=== PATIENT | female | born 1955 | race Hispanic/Latino ===

== ENCOUNTER 2017-03-20 14:54 | Inpatient (IN) | payer MEDICARE ==
[2017-03-20] MEDS ORDERED: Vancomycin 2 GM in Sodium Chloride 0.9% 500 ML IVPB ONE (18:00)
[2017-03-20] MEDS ORDERED: Piperacill/Tazo 4.5gm in Dex 4.5 GM/100 ML BAG IVPB ONE (18:00)
[2017-03-20 21:38] LABS: ALBUMIN 3.3 g/dL (3.5-5.0); ALT/SGPT 27 U/L (9-52); AST/SGOT 99 U/L (14-36); BLOOD UREA NITROGEN 20 mg/dL (7-17); CALCIUM 8.3 mg/dl (8.6-10.4); CK-MB 45.9 ng/mL (0.0-3.38); GFR AFRICAN-AMERICAN > 60; GFR NON-AFRICAN AMERICAN 51
[2017-03-20 22:30] VITALS: BMI 58.2
[2017-03-20 22:36] LABS: BASO # 0.1 K/uL (0.0-0.2); BASO % 0.5 % (0.0-2.0); EOS # 0.1 K/uL (0.0-0.7); EOS % 0.6 % (0.0-4.0); HEMOGLOBIN 12.9 g/dL (11.0-16.0); LYMPH # 1.2 K/uL (1.0-4.3); LYMPH % 10.6 % (20.0-40.0); MEAN CELL VOLUME 83.1 fL (81.0-99.0); MEAN CORPUSCULAR HEMOGLOBIN 25.5 pg (27.0-31.0); MEAN CORPUSCULAR HGB CONC 30.7 g/dL (33.0-37.0); MEAN PLATELET VOLUME 8.5 fL (7.2-11.7); MONO % 9.3 % (0.0-10.0); NEUT # 8.9 K/uL (1.8-7.0); NRBC % 0.1 % (0.0-2.0); RBC 5.07 Mil/uL (3.80-5.20); RED CELL DISTRIBUTION WIDTH 17.5 % (11.5-14.5); WHITE BLOOD COUNT 11.3 K/uL (4.8-10.8)
--- NOTE | 2017-03-20 22:45 | RAD ---
PROCEDURE: CHEST RADIOGRAPH, 1 VIEW HISTORY: COMPARISON: None available. FINDINGS: LUNGS: There is patient rotation to the right. The lungs are clear. PLEURA: No pneumothorax or pleural fluid seen. CARDIOVASCULAR: There is mild cardiomegaly. OSSEOUS STRUCTURES: No significant abnormalities. VISUALIZED UPPER ABDOMEN: Normal. OTHER FINDINGS: None. IMPRESSION: No acute findings.
--- NOTE | 2017-03-20 22:45 | CT ---
PROCEDURE: CT Chest with contrast (Pulmonary Angiogram) I are are cardiac polyp on the idea the [facility] go neck pain 2 days HISTORY: COMPARISON: None available. TECHNIQUE: Axial computed tomography images were obtained of the chest in the pulmonary arterial phase of enhancement. Coronal and sagittal reformatted images were created and reviewed. Intravenous contrast dose: 95 mL Visipaque 320 Radiation dose: Total exam DLP = 593.16 MGy-cm. This CT exam was performed using one or more of the following dose reduction techniques: Automated exposure control, adjustment of the mA and/or kV according to patient size, and/or use of iterative reconstruction technique. FINDINGS: PULMONARY ARTERIES: There are no filling defects in the pulmonary arteries to suggest acute pulmonary embolism. AORTA: No evidence of aortic aneurysm or dissection. LUNGS: There are patchy ground-glass opacities in both lungs. Bullous emphysema in the medial segment of the right middle lobe. There is confluent airspace disease in the posterior basal segment of the left lower lobe. There is subsegmental atelectasis in the lingula. PLEURAL SPACES: Unremarkable. No effusion or pneumothorax. HEART: The heart is normal in size. No pericardial effusion. LYMPH NODES: Subcentimeter mediastinal lymph nodes are likely reactive in etiology. There is moderate left hilar lymphadenopathy. BONES, CHEST WALL: Unremarkable. No fracture or destructive lesion multilevel degenerative disc disease. OTHER FINDINGS: Unremarkable. IMPRESSION: 1. No CT evidence for acute pulmonary embolism, aortic aneurysm or aortic dissection. 2. Confluent airspace disease in the posterior basal segment of the left lower lobe may represent move subsegmental atelectasis however pneumonia cannot be excluded. Also noted is moderate left hilar lymphadenopathy of uncertain etiology and could be reactive, infectious or inflammatory in etiology. Follow-up after medical management is recommended to ensure complete resolution.
[2017-03-20 22:58] LABS: ALBUMIN 2.9 g/dL (3.5-5.0); ALT/SGPT 31 U/L (9-52); AST/SGOT 131 U/L (14-36); BLOOD UREA NITROGEN 18 mg/dL (7-17); CALCIUM 7.8 mg/dl (8.6-10.4); CK-MB 66.2 ng/mL (0.0-3.38); GFR AFRICAN-AMERICAN > 60; GFR NON-AFRICAN AMERICAN > 60; MAGNESIUM 1.7 mg/dL (1.6-2.3)
[2017-03-20 23:11] LABS: INR 1.2; PROTHROMBIN TIME 13.3 SECONDS (9.7-12.2)
[2017-03-20 23:35] LABS: SQUAMOUS EPITHIAL 9 /hpf (0-5); URINE BACTERIA MOD (<OCC); URINE BILIRUBIN NEGATIVE (NEGATIVE); URINE BLOOD 3+ (NEGATIVE); URINE CLARITY Hazy (Clear); URINE COLOR Amber (YELLOW); URINE GLUCOSE (UA) NORMAL (Normal); URINE LEUKOCYTE ESTERASE 1+ Leu/uL (Negative); URINE NITRATE NEGATIVE (NEGATIVE); URINE PROTEIN 2+ mg/dL (NEGATIVE); WBC CLUMPS FEW /hpf
[2017-03-21] MEDS: Aspirin 325 mg EC Tablets PO SCH ×2 (00:29→09:55)
[2017-03-21] MEDS: Piperacill/Tazo 4.5gm in Dex 4.5 GM/100 ML BAG IVPB SCH ×5 (00:54→23:05)
[2017-03-21] MEDS: Albuterol-Ipratrop 3 mg / 0.5 (3 ml) UD INH SCH ×6 (01:31→19:49)
[2017-03-21 04:53] LABS: BASO % 0.2 % (0.0-2.0); EOS % 0.1 % (0.0-4.0); HEMOGLOBIN 12.7 g/dL (11.0-16.0); LYMPH # 1.3 K/uL (1.0-4.3); LYMPH % 11.7 % (20.0-40.0); MEAN CORPUSCULAR HEMOGLOBIN 25.5 pg (27.0-31.0); MEAN PLATELET VOLUME 8.8 fL (7.2-11.7); MONO # 0.9 K/uL (0.0-0.8); NEUT # 8.9 K/uL (1.8-7.0); RBC 4.98 Mil/uL (3.80-5.20); RED CELL DISTRIBUTION WIDTH 17.3 % (11.5-14.5); WHITE BLOOD COUNT 11.1 K/uL (4.8-10.8)
[2017-03-21 04:59] LABS: ALBUMIN 3.1 g/dL (3.5-5.0)
[2017-03-21 05:02] LABS: AST/SGOT 185 U/L (14-36); BLOOD UREA NITROGEN 18 mg/dL (7-17); GFR AFRICAN-AMERICAN > 60; GFR NON-AFRICAN AMERICAN > 60
[2017-03-21 05:03] LABS: ALT/SGPT 30 U/L (9-52); CALCIUM 8.4 mg/dl (8.6-10.4); HDL CHOLESTEROL 30 mg/dL (30-70); MAGNESIUM 1.7 mg/dL (1.6-2.3)
[2017-03-21 05:14] LABS: LDL CHOLESTEROL 98 mg/dL (0-129)
[2017-03-21] MEDS: Heparin25000 units/250ml 1/2NS 25,000 UNITS/250 ML BAG IV PRN ×2 (05:59→23:06)
[2017-03-21 08:05] LABS: INR 1.2; PROTHROMBIN TIME 13.2 SECONDS (9.7-12.2)
--- NOTE | 2017-03-21 08:52 | CP.CCUPN ---
CCU Subjective - Physician Review Events Since Last Encounter (Free Text): 03/21/17 08:50 This a 61-year-old female admitted yesterday last night because she was not feeling well, she was not able to get out of bed. 2 weeks ago patient was hospitalized at [place] for unclear reason, at the time patient was diagnosed with a pneumonia. Patient was given medications. Patient was sent home within 2 days. At home patient was not able to get out, she was on the bed lying down, getting more worse. Not eating well. Episodes of vomiting at least one episode. She was also having increasing pain in the back, in the legs, was not able to move, taking some pain medications. The emergency room patient was found to be more lethargic, but easily arousable otherwise. Significant coughing, wheezing noted. Technique mucus production also noted. No fever noted, except a low-grade temperature. There was also abnormal EKG, with the ST elevation changes in the inferior leads. Cardiology evaluation called immediately, but hold heart was not initiated, and according to the cardiology medical management needed, with the heparin drip. Patient was also noted to be elevated troponin level. Last night while she came into the ICU, she become more lethargic. She was placed on BiPAP. Increased the PCO2 was identified, and after the BiPAP there was some improvement in the pH noted. Currently patient is more awake, more responding, cough noted, mucus production still present, thick mucus noted, rales bilaterally noted. But not in any distress. Elevated blood pressure noted. Patient is mostly bedridden. Sacral decubiti also noted. Urine output is somewhat minimally reduced. Low-grade fever better now. On examination: Vital signs reviewed No neck vein distention noted Bilateral diffuse rhonchi and wheezing and wheezing noted CVS regular heart sound, no murmur noted Abdomen soft, nontender. Bilateral pedal edema noted [employer] alert awake oriented 3, no functional neurological deficit Today's labs reviewed 03/21/17 04:40 03/21/17 04:[address] scan of the chest showing no evidence of pulmonary embolism, but dynamic collapse of the trachea and bronchi noted. Assessment and recommendation: 61-year-old female with history of hypertension, history of smoking, chronic pain. Patient mostly bedridden. Obesity. Associated hyperventilation. Possible COPD. CO2 retention noted. Generalized anasarca. Sacral decubiti. Admitted with the possible sepsis. Non-ST elevation [place], with the elevated cardiac enzymes. Acute on chronic respiratory failure with the CO2 retention. Currently needing BiPAP on and off. Cardiology evaluation. Echocardiogram. Monitor the cardiac enzymes. Beta sisi, heparin, antiplatelets. BiPAP as needed. Overall prognosis is guarded. Spoke to the family. CCU Objective - Vital Signs / Intake & Output Vital Signs (Last 4 hours): Vital Signs Temp Pulse Resp BP Pulse Ox 03/21/17 08:30 88 16 99 03/21/17 08:18 86 21 175/86 H 96 03/21/17 08:00 88 23 97 03/21/17 07:58 87 23 185/100 H 97 03/21/17 07:57 98 F 03/21/17 07:40 89 22 96 03/21/17 07:30 86 22 95 03/21/17 07:20 91 H 13 94 L 03/21/17 07:10 89 23 93 L 03/21/17 07:00 90 27 H 92 L 03/21/17 06:58 89 25 H 165/86 H 91 L 03/21/17 06:50 87 23 91 L 03/21/17 06:40 92 H 22 94 L 03/21/17 06:30 86 23 94 L 03/21/17 06:20 87 16 94 L 03/21/17 06:10 83 12 98 03/21/17 06:00 85 14 97 03/21/17 05:58 79 20 176/97 H 97 03/21/17 05:50 80 18 99 03/21/17 05:40 81 17 98 03/21/17 05:30 84 20 98 03/21/17 05:25 78 18 174/95 H 97 03/21/17 05:20 80 20 98 03/21/17 05:10 79 19 97 03/21/17 05:00 74 20 97 03/21/17 04:58 77 15 165/101 H 98 Intake and Output (Last 8hrs): Intake & Output 03/20/17 03/21/17 03/21/17 22:59 06:59 14:59 Intake Total 54 226 32.8 Output Total 200 400 60 Balance -146 -174 -27.2 Weight 350 lb Intake: IV 0 0 Intake, IV Amount 54 226 32.8 left hand 100 right hand 54 126 32.8 Output: Urine 200 400 60 Urethral (Colmenares) 200 400 60 Emesis 0 Other: Voiding Method Indwelling Catheter # Bowel Movements 0 - Medications Active Medications: Active Medications Generic Name Dose Route Start Last Admin Trade Name Freq PRN Reason Stop Dose Admin Albuterol/Ipratropium 3 ml 03/21/17 00:00 03/21/17 08:15 Duoneb 3 Mg/0.5 Mg (3 Ml) Ud INH 3 ml RQ4 RIK Administration Aspirin 325 mg 03/20/17 23:45 03/21/17 00:29 Ecotrin PO Not Given DAILY RIK Clonazepam 1 mg 03/20/17 23:45 03/21/17 00:29 Klonopin PO Not Given Q12 RIK Gabapentin 300 mg 03/20/17 23:45 03/21/17 00:29 Neurontin PO Not Given TID RIK Heparin Sodium/Sodium Chloride 25,000 units in 250 mls @ 18 mls/hr 03/20/17 22 :49 03/21/17 07:00 Heparin 21781 Units/250ml 1/2 Normal Saline IV 10.33 units/kg/hr .[id number] PRN 16.4 mls/hr PROTOCOL Titration Protocol Vancomycin/Sodium Chloride 1 gm in 200 mls @ 133.333 mls/hr 03/21/17 10:00 Vancocin IVPB 03/26/17 10:01 Q12H RIK Piperacillin Sod/Tazobactam Sod 4.5 gm in 100 mls @ 100 mls/hr 03/21/17 01:00 03/21/17 06:02 Zosyn 4.5 Gm Iv Premix IVPB 100 mls/hr Q6 RIK Administration Lisinopril 2.5 mg 03/21/17 10:00 Zestril PO DAILY RIK Morphine Sulfate 2 mg 03/20/17 23:50 03/21/17 04:34 Morphine IVP 2 mg Q6H PRN Administration Pain, moderate (4-7) Nitroglycerin 0.4 mg 03/20/17 23:50 Nitrostat Sl Tab SL Q5M PRN Rosuvastatin Calcium 20 mg 03/21/17 22:00 Crestor PO [facility] - Patient Studies Lab Studies: Lab Studies 03/21/17 03/21/17 03/21/17 Range/Units 04:40 04:40 04:40 WBC 11.1 H (4.8-10.8) K/uL RBC 4.98 (3.80-5.20) Mil/uL Hgb 12.7 (11.0-16.0) g/dL Hct 42.4 (34.0-47.0) % MCV 85.0 (81.0-99.0) fL MCH 25.5 L (27.0-31.0) pg MCHC 30.0 L (33.0-37.0) g/dL RDW 17.3 H (11.5-14.5) % Plt Count 277 (130-400) K/uL MPV 8.8 (7.2-11.7) fL Neut % (Auto) 80.0 H (50.0-75.0) % Lymph % (Auto) 11.7 L (20.0-40.0) % [place] % (Auto) 8.0 (0.0-10.0) % Eos % (Auto) 0.1 (0.0-4.0) % Baso % (Auto) 0.2 (0.0-2.0) % Neut # 8.9 H (1.8-7.0) K/uL Lymph # 1.3 (1.0-4.3) K/uL [place] # 0.9 H (0.0-0.8) K/uL Eos # 0.0 (0.0-0.7) K/uL Baso # 0.0 (0.0-0.2) K/uL PT (9.7-12.2) SECONDS INR APTT 106 H* D (21-34) SECONDS D-Dimer, Quantitative (0-243) ng/mlDDU Sodium 138 (132-148) mmol/L Potassium 3.8 (3.6-5.2) mmol/L Chloride 103 (98-107) mmol/L Carbon Dioxide 25 (22-30) mmol/L Anion Gap 14 (10-20) BUN 18 H (7-17) mg/dL Creatinine 0.8 (0.7-1.2) MG/DL Est GFR ( Amer) > 60 Est GFR (Non-Af Amer) > 60 Random Glucose 99 (65-105) mg/dL Lactic Acid (0.7-2.1) mmol/L Calcium 8.4 L (8.6-10.4) mg/dl Phosphorus 3.7 (2.5-4.5) mg/dL Magnesium 1.7 (1.6-2.3) mg/dL Total Bilirubin 0.7 (0.2-1.3) mg/dL AST 185 H D (14-36) U/L ALT 30 (9-52) U/L Alkaline Phosphatase 86 (38-126) U/L Total Creatine Kinase (30-135) U/L CK-MB (Mass) (0.0-3.38) ng/mL Troponin I 14.2000 H* (0.00-0.120) ng/mL Troponin I, Quant (0.00-0.120) ng/mL Total Protein 6.3 (6.3-8.3) g/dL Albumin 3.1 L (3.5-5.0) g/dL Globulin 3.2 (2.2-3.9) gm/dL Albumin/Globulin Ratio 1.0 (1.0-2.1) Triglycerides 126 D (0-149) mg/dL Cholesterol 153 (0-199) mg/dL LDL Cholesterol Direct 98 (0-129) mg/dL HDL Cholesterol 30 (30-70) mg/dL Urine Color (YELLOW) Urine Clarity (Clear) Urine pH (5.0-8.0) Ur Specific [place] (1.003-1.030) Urine Protein (NEGATIVE) mg/dL Urine Glucose (UA) (Normal) mg/dL Urine Ketones (NEGATIVE) mg/dL Urine Blood (NEGATIVE) Urine Nitrate (NEGATIVE) Urine Bilirubin (NEGATIVE) Urine Urobilinogen (0.2-1.0) mg/dL Ur Leukocyte Esterase (Negative) Mendoza/uL Urine WBC (Auto) (0-5) /hpf Urine RBC (Auto) (0-3) /hpf Urine WBC Clumps (Auto) (NONE) /hpf Ur Squamous Epith Cells (0-5) /hpf Urine Bacteria (<OCC) 03/20/17 03/20/17 03/20/17 Range/Units 22:39 22:39 22:39 WBC (4.8-10.8) K/uL RBC (3.80-5.20) Mil/uL Hgb (11.0-16.0) g/dL Hct (34.0-47.0) % MCV (81.0-99.0) fL MCH (27.0-31.0) pg MCHC (33.0-37.0) g/dL RDW (11.5-14.5) % Plt Count (130-400) K/uL MPV (7.2-11.7) fL Neut % (Auto) (50.0-75.0) % Lymph % (Auto) (20.0-40.0) % [place] % (Auto) (0.0-10.0) % Eos % (Auto) (0.0-4.0) % Baso % (Auto) (0.0-2.0) % Neut # (1.8-7.0) K/uL Lymph # (1.0-4.3) K/uL [place] # (0.0-0.8) K/uL Eos # (0.0-0.7) K/uL Baso # (0.0-0.2) K/uL PT 13.3 H (9.7-12.2) SECONDS INR 1.2 APTT 79 H D (21-34) SECONDS D-Dimer, Quantitative (0-243) ng/mlDDU Sodium 138 (132-148) mmol/L Potassium 3.6 (3.6-5.2) mmol/L Chloride 104 (98-107) mmol/L Carbon Dioxide 23 (22-30) mmol/L Anion Gap 15 (10-20) BUN 18 H (7-17) mg/dL Creatinine 0.9 (0.7-1.2) MG/DL Est GFR ( Amer) > 60 Est GFR (Non-Af Amer) > 60 Random Glucose 145 H (65-105) mg/dL Lactic Acid 0.7 (0.7-2.1) mmol/L Calcium 7.8 L (8.6-10.4) mg/dl Phosphorus 4.7 H (2.5-4.5) mg/dL Magnesium 1.7 (1.6-2.3) mg/dL Total Bilirubin 0.7 (0.2-1.3) mg/dL AST 131 H D (14-36) U/L ALT 31 (9-52) U/L Alkaline Phosphatase 85 (38-126) U/L Total Creatine Kinase 2335 H (30-135) U/L CK-MB (Mass) 66.2 H (0.0-3.38) ng/mL Troponin I (0.00-0.120) ng/mL Troponin I, Quant 7.4100 H* (0.00-0.120) ng/mL Total Protein 6.0 L (6.3-8.3) g/dL Albumin 2.9 L (3.5-5.0) g/dL Globulin 3.0 (2.2-3.9) gm/dL Albumin/Globulin Ratio 1.0 (1.0-2.1) Triglycerides (0-149) mg/dL Cholesterol (0-199) mg/dL LDL Cholesterol Direct (0-129) mg/dL HDL Cholesterol (30-70) mg/dL Urine Color (YELLOW) Urine Clarity (Clear) Urine pH (5.0-8.0) Ur Specific [place] (1.003-1.030) Urine Protein (NEGATIVE) mg/dL Urine Glucose (UA) (Normal) mg/dL Urine Ketones (NEGATIVE) mg/dL Urine Blood (NEGATIVE) Urine Nitrate (NEGATIVE) Urine Bilirubin (NEGATIVE) Urine Urobilinogen (0.2-1.0) mg/dL Ur Leukocyte Esterase (Negative) Mendoza/uL Urine WBC (Auto) (0-5) /hpf Urine RBC (Auto) (0-3) /hpf Urine WBC Clumps (Auto) (NONE) /hpf Ur Squamous Epith Cells (0-5) /hpf Urine Bacteria (<OCC) 03/20/17 03/20/17 03/20/17 Range/Units 22:04 21:32 21:32 WBC (4.8-10.8) K/uL RBC (3.80-5.20) Mil/uL Hgb (11.0-16.0) g/dL Hct (34.0-47.0) % MCV (81.0-99.0) fL MCH (27.0-31.0) pg MCHC (33.0-37.0) g/dL RDW (11.5-14.5) % Plt Count (130-400) K/uL MPV (7.2-11.7) fL Neut % (Auto) (50.0-75.0) % Lymph % (Auto) (20.0-40.0) % [place] % (Auto) (0.0-10.0) % Eos % (Auto) (0.0-4.0) % Baso % (Auto) (0.0-2.0) % Neut # (1.8-7.0) K/uL Lymph # (1.0-4.3) K/uL [place] # (0.0-0.8) K/uL Eos # (0.0-0.7) K/uL Baso # (0.0-0.2) K/uL PT 13.2 H (9.7-12.2) SECONDS INR 1.2 APTT 30 (21-34) SECONDS D-Dimer, Quantitative 630 H (0-243) ng/mlDDU Sodium 139 (132-148) mmol/L Potassium 3.3 L (3.6-5.2) mmol/L Chloride 100 (98-107) mmol/L Carbon Dioxide 26 (22-30) mmol/L Anion Gap 16 (10-20) BUN 20 H (7-17) mg/dL Creatinine 1.1 (0.7-1.2) MG/DL Est GFR ( Amer) > 60 Est GFR (Non-Af Amer) 51 Random Glucose 116 H (65-105) mg/dL Lactic Acid (0.7-2.1) mmol/L Calcium 8.3 L (8.6-10.4) mg/dl Phosphorus (2.5-4.5) mg/dL Magnesium (1.6-2.3) mg/dL Total Bilirubin 0.7 (0.2-1.3) mg/dL AST 99 H D (14-36) U/L ALT 27 (9-52) U/L Alkaline Phosphatase 100 (38-126) U/L Total Creatine Kinase 1329 H (30-135) U/L CK-MB (Mass) 45.9 H (0.0-3.38) ng/mL Troponin I (0.00-0.120) ng/mL Troponin I, Quant 6.0500 H* (0.00-0.120) ng/mL Total Protein 6.5 (6.3-8.3) g/dL Albumin 3.3 L (3.5-5.0) g/dL Globulin 3.3 (2.2-3.9) gm/dL Albumin/Globulin Ratio 1.0 (1.0-2.1) Triglycerides (0-149) mg/dL Cholesterol (0-199) mg/dL LDL Cholesterol Direct (0-129) mg/dL HDL Cholesterol (30-70) mg/dL Urine Color Arely (YELLOW) Urine Clarity Hazy (Clear) Urine pH 5.0 (5.0-8.0) Ur Specific [place] 1.028 (1.003-1.030) Urine Protein 2+ H (NEGATIVE) mg/dL Urine Glucose (UA) Normal (Normal) mg/dL Urine Ketones Trace (NEGATIVE) mg/dL Urine Blood 3+ H (NEGATIVE) Urine Nitrate Negative (NEGATIVE) Urine Bilirubin Negative (NEGATIVE) Urine Urobilinogen 4.0 H (0.2-1.0) mg/dL Ur Leukocyte Esterase 1+ H (Negative) Mendoza/uL Urine WBC (Auto) 36 H (0-5) /hpf Urine RBC (Auto) 61 H (0-3) /hpf Urine WBC Clumps (Auto) Few H (NONE) /hpf Ur Squamous Epith Cells 9 H (0-5) /hpf Urine Bacteria Mod H (<OCC) 03/20/17 Range/Units 21:32 WBC 11.3 H (4.8-10.8) K/uL RBC 5.07 (3.80-5.20) Mil/uL Hgb 12.9 (11.0-16.0) g/dL Hct 42.1 (34.0-47.0) % MCV 83.1 D (81.0-99.0) fL MCH 25.5 L (27.0-31.0) pg MCHC 30.7 L (33.0-37.0) g/dL RDW 17.5 H (11.5-14.5) % Plt Count 344 (130-400) K/uL MPV 8.5 (7.2-11.7) fL Neut % (Auto) 79.0 H (50.0-75.0) % Lymph % (Auto) 10.6 L (20.0-40.0) % [place] % (Auto) 9.3 (0.0-10.0) % Eos % (Auto) 0.6 (0.0-4.0) % Baso % (Auto) 0.5 (0.0-2.0) % Neut # 8.9 H (1.8-7.0) K/uL Lymph # 1.2 (1.0-4.3) K/uL [place] # 1.0 H (0.0-0.8) K/uL Eos # 0.1 (0.0-0.7) K/uL Baso # 0.1 (0.0-0.2) K/uL PT (9.7-12.2) SECONDS INR APTT (21-34) SECONDS D-Dimer, Quantitative (0-243) ng/mlDDU Sodium (132-148) mmol/L Potassium (3.6-5.2) mmol/L Chloride (98-107) mmol/L Carbon Dioxide (22-30) mmol/L Anion Gap (10-20) BUN (7-17) mg/dL Creatinine (0.7-1.2) MG/DL Est GFR ( Amer) Est GFR (Non-Af Amer) Random Glucose (65-105) mg/dL Lactic Acid (0.7-2.1) mmol/L Calcium (8.6-10.4) mg/dl Phosphorus (2.5-4.5) mg/dL Magnesium (1.6-2.3) mg/dL Total Bilirubin (0.2-1.3) mg/dL AST (14-36) U/L ALT (9-52) U/L Alkaline Phosphatase (38-126) U/L Total Creatine Kinase (30-135) U/L CK-MB (Mass) (0.0-3.38) ng/mL Troponin I (0.00-0.120) ng/mL Troponin I, Quant (0.00-0.120) ng/mL Total Protein (6.3-8.3) g/dL Albumin (3.5-5.0) g/dL Globulin (2.2-3.9) gm/dL Albumin/Globulin Ratio (1.0-2.1) Triglycerides (0-149) mg/dL Cholesterol (0-199) mg/dL LDL Cholesterol Direct (0-129) mg/dL HDL Cholesterol (30-70) mg/dL Urine Color (YELLOW) Urine Clarity (Clear) Urine pH (5.0-8.0) Ur Specific [place] (1.003-1.030) Urine Protein (NEGATIVE) mg/dL Urine Glucose (UA) (Normal) mg/dL Urine Ketones (NEGATIVE) mg/dL Urine Blood (NEGATIVE) Urine Nitrate (NEGATIVE) Urine Bilirubin (NEGATIVE) Urine Urobilinogen (0.2-1.0) mg/dL Ur Leukocyte Esterase (Negative) Mendoza/uL Urine WBC (Auto) (0-5) /hpf Urine RBC (Auto) (0-3) /hpf Urine WBC Clumps (Auto) (NONE) /hpf Ur Squamous Epith Cells (0-5) /hpf Urine Bacteria (<OCC) Laboratory Results - last 24 hr 03/20/17 03/20/17 03/20/17 21:32 21:32 21:32 WBC 11.3 H RBC 5.07 Hgb 12.9 Hct 42.1 MCV 83.1 D MCH 25.5 L MCHC 30.7 L RDW 17.5 H Plt Count 344 MPV 8.5 Neut % (Auto) 79.0 H Lymph % (Auto) 10.6 L [place] % (Auto) 9.3 Eos % (Auto) 0.6 Baso % (Auto) 0.5 Neut # 8.9 H Lymph # 1.2 [place] # 1.0 H Eos # 0.1 Baso # 0.1 PT 13.2 H INR 1.2 APTT 30 D-Dimer, Quantitative 630 H Sodium 139 Potassium 3.3 L Chloride 100 Carbon Dioxide 26 Anion Gap 16 BUN 20 H Creatinine 1.1 Est GFR ( Amer) > 60 Est GFR (Non-Af Amer) 51 Random Glucose 116 H Lactic Acid Calcium 8.3 L Phosphorus Magnesium Total Bilirubin 0.7 AST 99 H D ALT 27 Alkaline Phosphatase 100 Total Creatine Kinase 1329 H CK-MB (Mass) 45.9 H Troponin I Troponin I, Quant 6.0500 H* Total Protein 6.5 Albumin 3.3 L Globulin 3.3 Albumin/Globulin Ratio 1.0 Triglycerides Cholesterol LDL Cholesterol Direct HDL Cholesterol Urine Color Urine Clarity Urine pH Ur Specific [place] Urine Protein Urine Glucose (UA) Urine Ketones Urine Blood Urine Nitrate Urine Bilirubin Urine Urobilinogen Ur Leukocyte Esterase Urine WBC (Auto) Urine RBC (Auto) Urine WBC Clumps (Auto) Ur Squamous Epith Cells Urine Bacteria 03/20/17 03/20/1717 22:04 22:39 22:39 WBC RBC Hgb Hct MCV MCH MCHC RDW Plt Count MPV Neut % (Auto) Lymph % (Auto) [place] % (Auto) Eos % (Auto) Baso % (Auto) Neut # Lymph # [place] # Eos # Baso # PT 13.3 H INR 1.2 APTT 79 H D D-Dimer, Quantitative Sodium 138 Potassium 3.6 Chloride 104 Carbon Dioxide 23 Anion Gap 15 BUN 18 H Creatinine 0.9 Est GFR ( Amer) > 60 Est GFR (Non-Af Amer) > 60 Random Glucose 145 H Lactic Acid Calcium 7.8 L Phosphorus 4.7 H Magnesium 1.7 Total Bilirubin 0.7 AST 131 H D ALT 31 Alkaline Phosphatase 85 Total Creatine Kinase 2335 H CK-MB (Mass) 66.2 H Troponin I Troponin I, Quant 7.4100 H* Total Protein 6.0 L Albumin 2.9 L Globulin 3.0 Albumin/Globulin Ratio 1.0 Triglycerides Cholesterol LDL Cholesterol Direct HDL Cholesterol Urine Color Arely Urine Clarity Hazy Urine pH 5.0 Ur Specific [place] 1.028 Urine Protein 2+ H Urine Glucose (UA) Normal Urine Ketones Trace Urine Blood 3+ H Urine Nitrate Negative Urine Bilirubin Negative Urine Urobilinogen 4.0 H Ur Leukocyte Esterase 1+ H Urine WBC (Auto) 36 H Urine RBC (Auto) 61 H Urine WBC Clumps (Auto) Few H Ur Squamous Epith Cells 9 H Urine Bacteria Mod H 03/20/17 03/21/17 03/21/17 22:39 04:40 04:40 WBC 11.1 H RBC 4.98 Hgb 12.7 Hct 42.4 MCV 85.0 MCH 25.5 L MCHC 30.0 L RDW 17.3 H Plt Count 277 MPV 8.8 Neut % (Auto) 80.0 H Lymph % (Auto) 11.7 L [place] % (Auto) 8.0 Eos % (Auto) 0.1 Baso % (Auto) 0.2 Neut # 8.9 H Lymph # 1.3 [place] # 0.9 H Eos # 0.0 Baso # 0.0 PT INR APTT 106 H* D D-Dimer, Quantitative Sodium Potassium Chloride Carbon Dioxide Anion Gap BUN Creatinine Est GFR ( Amer) Est GFR (Non-Af Amer) Random Glucose Lactic Acid 0.7 Calcium Phosphorus Magnesium Total Bilirubin AST ALT Alkaline Phosphatase Total Creatine Kinase CK-MB (Mass) Troponin I Troponin I, Quant Total Protein Albumin Globulin Albumin/Globulin Ratio Triglycerides Cholesterol LDL Cholesterol Direct HDL Cholesterol Urine Color Urine Clarity Urine pH Ur Specific [place] Urine Protein Urine Glucose (UA) Urine Ketones Urine Blood Urine Nitrate Urine Bilirubin Urine Urobilinogen Ur Leukocyte Esterase Urine WBC (Auto) Urine RBC (Auto) Urine WBC Clumps (Auto) Ur Squamous Epith Cells Urine Bacteria 03/21/17 04:40 WBC RBC Hgb Hct MCV MCH MCHC RDW Plt Count MPV Neut % (Auto) Lymph % (Auto) [place] % (Auto) Eos % (Auto) Baso % (Auto) Neut # Lymph # [place] # Eos # Baso # PT INR APTT D-Dimer, Quantitative Sodium 138 Potassium 3.8 Chloride 103 Carbon Dioxide 25 Anion Gap 14 BUN 18 H Creatinine 0.8 Est GFR ( Amer) > 60 Est GFR (Non-Af Amer) > 60 Random Glucose 99 Lactic Acid Calcium 8.4 L Phosphorus 3.7 Magnesium 1.7 Total Bilirubin 0.7 AST 185 H D ALT 30 Alkaline Phosphatase 86 Total Creatine Kinase CK-MB (Mass) Troponin I 14.2000 H* Troponin I, Quant Total Protein 6.3 Albumin 3.1 L Globulin 3.2 Albumin/Globulin Ratio 1.0 Triglycerides 126 D Cholesterol 153 LDL Cholesterol Direct 98 HDL Cholesterol 30 Urine Color Urine Clarity Urine pH Ur Specific [place] Urine Protein Urine Glucose (UA) Urine Ketones Urine Blood Urine Nitrate Urine Bilirubin Urine Urobilinogen Ur Leukocyte Esterase Urine WBC (Auto) Urine RBC (Auto) Urine WBC Clumps (Auto) Ur Squamous Epith Cells Urine Bacteria EKG/Cardiology Studies: Cardiology / EKG Studies 03/21/17 00:47 ELECTROCARDIOGRAM Routine Comment: Mode Of Transportation: Reason For Exam: NONSTEMI Critical Care Progress Note - Nutrition Nutrition: Nutrition Category Date Time Status Heart Healthy Diet [DIET] Diets 03/21/17 Breakfast Active
[2017-03-21] MEDS ORDERED: Potassium Chloride 20 mEq/15 ml LIQ UD PO ONE (09:00)
[2017-03-21] MEDS: Magnesium Sulfate 1 gm in D5W 1 GM/100 ML BAG IVPB SCH (09:59)
[2017-03-21] MEDS: Vancomycin 1 gm/NS 200 ml 1 GM/200 ML BAG IVPB SCH ×2 (10:00→21:18)
--- NOTE | 2017-03-21 11:19 | RAD ---
PROCEDURE: Right pelvis and Hip Radiographs. HISTORY: HIP PAIN COMPARISON: None. FINDINGS: BONES: The pelvic ring is intact. No acute displaced fracture or bone destruction. 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 SOFT TISSUES: Normal. OTHER FINDINGS: None. IMPRESSION: No acute displaced fracture or dislocation.
--- NOTE | 2017-03-21 13:08 | CP.PCM.CON ---
History of Present Illness - History of Present Illness History of Present Illness: 61 y/o woman who is morbidly obese and reports a pronlonged ICU admission and recurrent need for subacute care facility for SIRS/Pneumonia. She is very sedentary and mostly sofa bound at home but able to perform self care. Most recently about 2 weeks ago she states she slipped and fell in the tub and went to [facility] was evaluated and discharged. Since she reports progressive cough, dysuria, but no fever, chills, chest pressure, dizziness or syncope or palpitation. She presented to ER with same complaints and routine EKG showed inferior q- waves and subtle ST changes in the inferior leads in the absence of CHF features or chest pressure. CT chest ruled out any PE, mild leukocytosis and UTI noted, suspicion for atelectasis or PNA on CT. Heparin GTT was started and patient Tx to ICU. PMHX: HTN, No DM, Obeseity, probable OPHELIA PSHX: gall bladder Allergies: NKDA SOCHX: as above, smoker, no drugs no ETOH abuse ROS: all 12 systems rev and negative except as in HPI Review of Systems - Review of Systems All systems: reviewed and no additional remarkable complaints except Past Patient History - Past Medical History & Family History Past Medical History?: Yes - Past Social History Smoking Status: Current Some Days Smoker - CARDIAC Hx Hypertension: Yes - PULMONARY Hx Respiratory Disorders: No Hx Pneumonia: Yes Hx Respiratory Tract Infection: Yes - NEUROLOGICAL Hx Neurological Disorder: No - HEENT Hx HEENT Problems: No - RENAL Hx Kidney Stones: Yes - ENDOCRINE/METABOLIC Hx Endocrine Disorders: No - HEMATOLOGICAL/ONCOLOGICAL Hx Blood Disorders: No - INTEGUMENTARY Other/Comment: Abdominal Fold reddened and weeping with foul smell - MUSCULOSKELETAL/RHEUMATOLOGICAL Hx Falls: Yes Hx Herniated Disk: Yes - GASTROINTESTINAL Hx Gastrointestinal Disorders: No - GENITOURINARY/GYNECOLOGICAL Hx Genitourinary Disorders: No - PSYCHIATRIC Hx Substance Use: No - SURGICAL HISTORY Hx Cholecystectomy: Yes Hx Joint Replacement: Yes (rt knee) - ANESTHESIA Hx Anesthesia: No Hx Anesthesia Reactions: No Hx Malignant Hyperthermia: No Has any member of the family had a problem w/ anesthesia?: No Meds Allergies/Adverse Reactions: Allergies Allergy/AdvReac Type Severity Reaction Status Date / Time No Known Allergies Allergy Verified 02/01/16 05:56 - Medications Medications: Current Medications Albuterol/Ipratropium (Duoneb 3 Mg/0.5 Mg (3 Ml) Ud) 3 ml INH RQ4 [facility] Last Admin: 03/21/17 11:33 Dose: 3 ml Aspirin (Ecotrin) 325 mg PO DAILY [facility] Last Admin: 03/21/17 09:55 Dose: 325 mg Clonazepam (Klonopin) 1 mg PO Q12 [facility] Last Admin: 03/21/17 10:04 Dose: 1 mg Gabapentin (Neurontin) 300 mg PO TID [facility] Last Admin: 03/21/17 10:04 Dose: 300 mg Heparin Sodium/Sodium Chloride (Heparin 38748 Units/250ml 1/2 Normal Saline) 25 ,000 units in 250 mls @ 18 mls/hr IV .[id number] PRN; Protocol PRN Reason: PROTOCOL Last Titration: 03/21/17 07:00 Dose: 10.33 units/kg/hr, 16.4 mls/hr Vancomycin/Sodium Chloride (Vancocin) 1 gm in 200 mls @ 133.333 mls/hr IVPB Q12H [facility] Stop: 03/26/17 10:01 Last Admin: 03/21/17 10:00 Dose: 133.333 mls/hr Piperacillin Sod/Tazobactam Sod (Zosyn 4.5 Gm Iv Premix) 4.5 gm in 100 mls @ 100 mls/hr IVPB Q6 [facility] Last Admin: 03/21/17 06:02 Dose: 100 mls/hr Lisinopril (Zestril) 2.5 mg PO DAILY [facility] Last Admin: 03/21/17 09:58 Dose: 2.5 mg Losartan Potassium (Cozaar) 25 mg PO DAILY [facility] Last Admin: 03/21/17 09:55 Dose: 25 mg Metoprolol Tartrate (Lopressor) 25 mg PO BID [facility] Last Admin: 03/21/17 09:55 Dose: 25 mg Morphine Sulfate (Morphine) 2 mg IVP Q6H PRN PRN Reason: Pain, moderate (4-7) Last Admin: 03/21/17 09:58 Dose: 2 mg Nitroglycerin (Nitrostat Sl Tab) 0.4 mg SL Q5M PRN Rosuvastatin Calcium (Crestor) 20 mg PO [facility] Physical Exam - Constitutional Appears: Chronically Ill, Other (Morbidly obese) - Head Exam Head Exam: ATRAUMATIC, NORMAL INSPECTION, NORMOCEPHALIC - Eye Exam Eye Exam: EOMI, Normal appearance, PERRL - ENT Exam ENT Exam: Mucous Membranes Moist - Respiratory Exam Respiratory Exam: Rhonchi, Wheezes, NORMAL BREATHING PATTERN - Cardiovascular Exam Cardiovascular Exam: REGULAR RHYTHM, +S1, +S2. absent: Gallop, +S4, Systolic Murmur - GI/Abdominal Exam GI & Abdominal Exam: Normal Bowel Sounds, Soft. absent: Tenderness - Extremities Exam Extremities exam: Positive for: full ROM, normal inspection. Negative for: pedal edema - Neurological Exam Neurological exam: Alert, Oriented x3 - Psychiatric Exam Psychiatric exam: Normal Affect, Normal Mood - Skin Skin Exam: Normal Color, Warm Results - Vital Signs Recent Vital Signs: Last Vital Signs Temp 98 F 03/21/17 07:57 Pulse 69 03/21/17 11:34 Resp 16 03/21/17 08:30 BP 152/68 H 03/21/17 09:55 Pulse Ox 99 03/21/17 08:30 - Labs Result Diagrams: 03/21/17 04:40 03/21/17 04:40 Labs: Laboratory Results - last 24 hr 03/20/17 03/20/17 03/20/17 21:32 21:32 21:32 WBC 11.3 H RBC 5.07 Hgb 12.9 Hct 42.1 MCV 83.1 D MCH 25.5 L MCHC 30.7 L RDW 17.5 H Plt Count 344 MPV 8.5 Neut % (Auto) 79.0 H Lymph % (Auto) 10.6 L Hendricks % (Auto) 9.3 Eos % (Auto) 0.6 Baso % (Auto) 0.5 Neut # 8.9 H Lymph # 1.2 Hendricks # 1.0 H Eos # 0.1 Baso # 0.1 PT 13.2 H INR 1.2 APTT 30 D-Dimer, Quantitative 630 H Sodium 139 Potassium 3.3 L Chloride 100 Carbon Dioxide 26 Anion Gap 16 BUN 20 H Creatinine 1.1 Est GFR ( Amer) > 60 Est GFR (Non-Af Amer) 51 Random Glucose 116 H Lactic Acid Calcium 8.3 L Phosphorus Magnesium Total Bilirubin 0.7 AST 99 H D ALT 27 Alkaline Phosphatase 100 Total Creatine Kinase 1329 H CK-MB (Mass) 45.9 H Troponin I Troponin I, Quant 6.0500 H* Total Protein 6.5 Albumin 3.3 L Globulin 3.3 Albumin/Globulin Ratio 1.0 Triglycerides Cholesterol LDL Cholesterol Direct HDL Cholesterol Urine Color Urine Clarity Urine pH Ur Specific [place] Urine Protein Urine Glucose (UA) Urine Ketones Urine Blood Urine Nitrate Urine Bilirubin Urine Urobilinogen Ur Leukocyte Esterase Urine WBC (Auto) Urine RBC (Auto) Urine WBC Clumps (Auto) Ur Squamous Epith Cells Urine Bacteria 03/20/17 03/20/17 03/20/17 22:04 22:39 22:39 WBC RBC Hgb Hct MCV MCH MCHC RDW Plt Count MPV Neut % (Auto) Lymph % (Auto) Hendricks % (Auto) Eos % (Auto) Baso % (Auto) Neut # Lymph # Hendricks # Eos # Baso # PT 13.3 H INR 1.2 APTT 79 H D D-Dimer, Quantitative Sodium 138 Potassium 3.6 Chloride 104 Carbon Dioxide 23 Anion Gap 15 BUN 18 H Creatinine 0.9 Est GFR ( Amer) > 60 Est GFR (Non-Af Amer) > 60 Random Glucose 145 H Lactic Acid Calcium 7.8 L Phosphorus 4.7 H Magnesium 1.7 Total Bilirubin 0.7 AST 131 H D ALT 31 Alkaline Phosphatase 85 Total Creatine Kinase 2335 H CK-MB (Mass) 66.2 H Troponin I Troponin I, Quant 7.4100 H* Total Protein 6.0 L Albumin 2.9 L Globulin 3.0 Albumin/Globulin Ratio 1.0 Triglycerides Cholesterol LDL Cholesterol Direct HDL Cholesterol Urine Color Arely Urine Clarity Hazy Urine pH 5.0 Ur Specific [place] 1.028 Urine Protein 2+ H Urine Glucose (UA) Normal Urine Ketones Trace Urine Blood 3+ H Urine Nitrate Negative Urine Bilirubin Negative Urine Urobilinogen 4.0 H Ur Leukocyte Esterase 1+ H Urine WBC (Auto) 36 H Urine RBC (Auto) 61 H Urine WBC Clumps (Auto) Few H Ur Squamous Epith Cells 9 H Urine Bacteria Mod H 03/20/17 03/21/17 03/21/17 22:39 04:40 04:40 WBC 11.1 H RBC 4.98 Hgb 12.7 Hct 42.4 MCV 85.0 MCH 25.5 L MCHC 30.0 L RDW 17.3 H Plt Count 277 MPV 8.8 Neut % (Auto) 80.0 H Lymph % (Auto) 11.7 L Hendricks % (Auto) 8.0 Eos % (Auto) 0.1 Baso % (Auto) 0.2 Neut # 8.9 H Lymph # 1.3 Hendricks # 0.9 H Eos # 0.0 Baso # 0.0 PT INR APTT 106 H* D D-Dimer, Quantitative Sodium Potassium Chloride Carbon Dioxide Anion Gap BUN Creatinine Est GFR ( Amer) Est GFR (Non-Af Amer) Random Glucose Lactic Acid 0.7 Calcium Phosphorus Magnesium Total Bilirubin AST ALT Alkaline Phosphatase Total Creatine Kinase CK-MB (Mass) Troponin I Troponin I, Quant Total Protein Albumin Globulin Albumin/Globulin Ratio Triglycerides Cholesterol LDL Cholesterol Direct HDL Cholesterol Urine Color Urine Clarity Urine pH Ur Specific [place] Urine Protein Urine Glucose (UA) Urine Ketones Urine Blood Urine Nitrate Urine Bilirubin Urine Urobilinogen Ur Leukocyte Esterase Urine WBC (Auto) Urine RBC (Auto) Urine WBC Clumps (Auto) Ur Squamous Epith Cells Urine Bacteria 03/21/17 04:40 WBC RBC Hgb Hct MCV MCH MCHC RDW Plt Count MPV Neut % (Auto) Lymph % (Auto) Hendricks % (Auto) Eos % (Auto) Baso % (Auto) Neut # Lymph # Hendricks # Eos # Baso # PT INR APTT D-Dimer, Quantitative Sodium 138 Potassium 3.8 Chloride 103 Carbon Dioxide 25 Anion Gap 14 BUN 18 H Creatinine 0.8 Est GFR ( Amer) > 60 Est GFR (Non-Af Amer) > 60 Random Glucose 99 Lactic Acid Calcium 8.4 L Phosphorus 3.7 Magnesium 1.7 Total Bilirubin 0.7 AST 185 H D ALT 30 Alkaline Phosphatase 86 Total Creatine Kinase CK-MB (Mass) Troponin I 14.2000 H* Troponin I, Quant Total Protein 6.3 Albumin 3.1 L Globulin 3.2 Albumin/Globulin Ratio 1.0 Triglycerides 126 D Cholesterol 153 LDL Cholesterol Direct 98 HDL Cholesterol 30 Urine Color Urine Clarity Urine pH Ur Specific [place] Urine Protein Urine Glucose (UA) Urine Ketones Urine Blood Urine Nitrate Urine Bilirubin Urine Urobilinogen Ur Leukocyte Esterase Urine WBC (Auto) Urine RBC (Auto) Urine WBC Clumps (Auto) Ur Squamous Epith Cells Urine Bacteria - EKG Data EKG Interpreted by: Myself EKG shows normal: Sinus rhythm (poor anterior R-wave progression, old inferior infarct) Assessment & Plan - Assessment and Plan (Free Text) Assessment: 61 y/o morbidly obese woman currently without any CP or signs of worsening CHF > ACS: NSTEMI > COUGH- productive c/w PNA/bronchitis > UTI > Morbidly obese Continue Aspirin (Ecotrin) 325 mg PO DAILY [facility] Cont Heparin GTT Continue Lisinopril (Zestril) 2.5 mg PO DAILY or Losartan Potassium (Cozaar) 25 mg PO DAILY [facility] not both Continue Metoprolol Tartrate (Lopressor) 25 mg PO BID [facility] Continue Nitroglycerin (Nitrostat Sl Tab) 0.4 mg SL Q5M PRN Continue Rosuvastatin Calcium (Crestor) 20 mg PO HS [facility] ADD Plavix 300x1 load and then 75 daily Add Lasix 40 mg daily 1. Plan echo to evaluate cardiac structure and function 2. Cont Rx for UTI/PNA 3. BIPAP nightly 4. Continue medical therapy for now and I will consider cath based on clinical course. - Date & Time Date: 03/21/17 Time: 13:21
--- NOTE | 2017-03-21 16:28 | CP.PCM.PN ---
Subjective - Date & Time of Evaluation Date of Evaluation: 03/21/17 Time of Evaluation: 16:34 - Subjective Subjective: no cp no sob now cough present Objective - Vital Signs/Intake and Output Vital Signs (last 24 hours): Temp Pulse Resp BP Pulse Ox 98 F 73 21 128/80 96 03/21/17 07:57 03/21/17 15:00 03/21/17 15:00 03/21/17 14:58 03/21/17 15:00 Intake and Output: 03/21/17 03/21/17 06:59 18:59 Intake Total 280 997.6 Output Total 600 290 Balance -320 707.6 - Medications Medications: Current Medications Albuterol/Ipratropium (Duoneb 3 Mg/0.5 Mg (3 Ml) Ud) 3 ml INH RQ4 [facility] Last Admin: 03/21/17 11:33 Dose: 3 ml Aspirin (Ecotrin) 325 mg PO DAILY [facility] Last Admin: 03/21/17 09:55 Dose: 325 mg Clonazepam (Klonopin) 1 mg PO Q12 [facility] Last Admin: 03/21/17 10:04 Dose: 1 mg Gabapentin (Neurontin) 300 mg PO TID [facility] Last Admin: 03/21/17 13:58 Dose: 300 mg Heparin Sodium/Sodium Chloride (Heparin 01566 Units/250ml 1/2 Normal Saline) 25 ,000 units in 250 mls @ 18 mls/hr IV .[id number] PRN; Protocol PRN Reason: PROTOCOL Last Titration: 03/21/17 07:00 Dose: 10.33 units/kg/hr, 16.4 mls/hr Vancomycin/Sodium Chloride (Vancocin) 1 gm in 200 mls @ 133.333 mls/hr IVPB Q12H [facility] Stop: 03/26/17 10:01 Last Admin: 03/21/17 10:00 Dose: 133.333 mls/hr Piperacillin Sod/Tazobactam Sod (Zosyn 4.5 Gm Iv Premix) 4.5 gm in 100 mls @ 100 mls/hr IVPB Q6 [facility] Last Admin: 03/21/17 13:00 Dose: 100 mls/hr Lisinopril (Zestril) 2.5 mg PO DAILY [facility] Last Admin: 03/21/17 09:58 Dose: 2.5 mg Losartan Potassium (Cozaar) 25 mg PO DAILY [facility] Last Admin: 03/21/17 09:55 Dose: 25 mg Metoprolol Tartrate (Lopressor) 25 mg PO BID [facility] Last Admin: 03/21/17 09:55 Dose: 25 mg Morphine Sulfate (Morphine) 2 mg IVP Q6H PRN PRN Reason: Pain, moderate (4-7) Last Admin: 03/21/17 09:58 Dose: 2 mg Nitroglycerin (Nitrostat Sl Tab) 0.4 mg SL Q5M PRN Rosuvastatin Calcium (Crestor) 20 mg PO HS [facility] - Labs Labs: 03/21/17 04:40 03/21/17 04:40 PT 13.3 SECONDS (9.7-12.2) H 03/20/17 22:39 INR 1.2 03/20/17 22:39 APTT 64 SECONDS (21-34) H D 03/21/17 14:29 - Constitutional Appears: Well, Non-toxic, No Acute Distress - Head Exam Head Exam: ATRAUMATIC - Eye Exam Eye Exam: Normal appearance - ENT Exam ENT Exam: Mucous Membranes Dry - Neck Exam Additional comments: large neck - Respiratory Exam Respiratory Exam: NORMAL BREATHING PATTERN. absent: Respiratory Distress Additional comments: mild ronchi diffuse - Cardiovascular Exam Cardiovascular Exam: REGULAR RHYTHM, +S1, +S2. absent: Murmur - GI/Abdominal Exam GI & Abdominal Exam: Soft, Normal Bowel Sounds. absent: Tenderness Additional comments: obese - Neurological Exam Neurological Exam: Alert, Awake, Oriented x3 - Psychiatric Exam Psychiatric exam: Normal Affect - Additional Findings Additional findings: several decub POA Assessment and Plan - Assessment and Plan (Free Text) Assessment: 1. non st elevation mi aspirin plavix statin bb heparin drip management per cards 2. SIRS/Sepsis on iv abx 3. Pneumonia iv abx 4. UTI iv abx follow cultures has pradhan needs to be clinically able 5. Sacral Decub multiple in multiple stages due to bedbound at home for more than a month 6. Morbid obesity 7.dvt proph on heparin drip currently when stopped start heparin sc
[2017-03-22] MEDS: Albuterol-Ipratrop 3 mg / 0.5 (3 ml) UD INH SCH ×7 (00:09→23:58)
[2017-03-22] MEDS: Piperacill/Tazo 4.5gm in Dex 4.5 GM/100 ML BAG IVPB SCH ×4 (05:40→23:04)
[2017-03-22 06:51] LABS: ALBUMIN 2.8 g/dL (3.5-5.0)
[2017-03-22 06:53] LABS: GFR AFRICAN-AMERICAN > 60; GFR NON-AFRICAN AMERICAN > 60
[2017-03-22 06:54] LABS: ALT/SGPT 28 U/L (9-52); AST/SGOT 94 U/L (14-36); BLOOD UREA NITROGEN 8 mg/dL (7-17); CALCIUM 7.3 mg/dl (8.6-10.4)
[2017-03-22 06:55] LABS: MAGNESIUM 1.4 mg/dL (1.6-2.3)
[2017-03-22 06:57] LABS: BASO # 0.1 K/uL (0.0-0.2); BASO % 0.6 % (0.0-2.0); EOS % 0.2 % (0.0-4.0); HEMOGLOBIN 11.4 g/dL (11.0-16.0); LYMPH # 1.3 K/uL (1.0-4.3); LYMPH % 11.5 % (20.0-40.0); MEAN CORPUSCULAR HEMOGLOBIN 25.7 pg (27.0-31.0); MEAN CORPUSCULAR HGB CONC 31.1 g/dL (33.0-37.0); MEAN PLATELET VOLUME 8.6 fL (7.2-11.7); MONO # 1.4 K/uL (0.0-0.8); MONO % 11.8 % (0.0-10.0); NEUT # 8.8 K/uL (1.8-7.0); NEUT % 75.9 % (50.0-75.0); NRBC % 0.1 % (0.0-2.0); RBC 4.43 Mil/uL (3.80-5.20); RED CELL DISTRIBUTION WIDTH 16.9 % (11.5-14.5); WHITE BLOOD COUNT 11.7 K/uL (4.8-10.8)
[2017-03-22 07:00] LABS: MEAN CELL VOLUME 82.6 fL (81.0-99.0)
--- NOTE | 2017-03-22 09:57 | RAD ---
HISTORY: s/p PICC placement COMPARISON: 03/20/2017 FINDINGS: LUNGS: No active pulmonary disease. PLEURA: No significant pleural effusion identified, no pneumothorax apparent. CARDIOVASCULAR: Mild congestive change. Evaluation of the heart limited due to oblique positioning. Mild congestive change noted. New right PICC catheter terminates at the level of the cavoatrial junction. OSSEOUS STRUCTURES: No significant abnormalities. VISUALIZED UPPER ABDOMEN: Normal. OTHER FINDINGS: None. IMPRESSION: New right PICC catheter terminates at the level of the cavoatrial junction. Mild congestive change.
--- NOTE | 2017-03-22 10:00 | CP.PCM.PCO ---
Physician Communication Note - Physician Communication Note Physician Communication Note: ok to use PICC
[2017-03-22] MEDS: Aspirin 325 mg EC Tablets PO SCH (10:10)
[2017-03-22] MEDS: Vancomycin 1 gm/NS 200 ml 1 GM/200 ML BAG IVPB SCH ×2 (10:11→21:18)
[2017-03-22 10:56] LABS: HEMOGLOBIN 11.4 g/dL (11.0-16.0); MEAN CELL VOLUME 82.1 fL (81.0-99.0); MEAN CORPUSCULAR HGB CONC 31.7 g/dL (33.0-37.0); MEAN PLATELET VOLUME 8.5 fL (7.2-11.7); RBC 4.4 Mil/uL (3.80-5.20); RED CELL DISTRIBUTION WIDTH 17.1 % (11.5-14.5); WHITE BLOOD COUNT 10.9 K/uL (4.8-10.8)
[2017-03-22 11:13] LABS: ALBUMIN 2.8 g/dL (3.5-5.0)
[2017-03-22 11:15] LABS: GFR AFRICAN-AMERICAN > 60; GFR NON-AFRICAN AMERICAN > 60
[2017-03-22 11:16] LABS: ALB/GLOB RATIO 0.9 (1.0-2.1); ALT/SGPT 30 U/L (9-52); AST/SGOT 95 U/L (14-36); BLOOD UREA NITROGEN 8 mg/dL (7-17); CALCIUM 7.9 mg/dl (8.6-10.4)
[2017-03-22 11:17] LABS: MAGNESIUM 1.4 mg/dL (1.6-2.3)
--- NOTE | 2017-03-22 11:31 | CP.PCM.PN ---
Subjective - Date & Time of Evaluation Date of Evaluation: 03/22/17 Time of Evaluation: 11:28 - Subjective Subjective: Morbidly obese, severley deconditioned, mild cough, mild SOB Problems: 1. 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 SIRS/SEPSIS/PNA/UTI 4. Sacral Decub 5. Morbidly obese 6. OPHELIA Objective - Vital Signs/Intake and Output Vital Signs (last 24 hours): Temp Pulse Resp BP Pulse Ox 98.9 F 89 30 H 139/76 94 L 03/21/17 20:00 03/22/17 07:00 03/22/17 07:00 03/22/17 10:10 03/22/17 07:00 Intake and Output: 03/22/17 03/22/17 06:59 18:59 Intake Total 1046.8 16.4 Output Total 2000 Balance -953.2 16.4 - Medications Medications: Current Medications Albuterol/Ipratropium (Duoneb 3 Mg/0.5 Mg (3 Ml) Ud) 3 ml INH RQ4 [facility] Last Admin: 03/22/17 11:25 Dose: 3 ml Aspirin (Ecotrin) 325 mg PO DAILY [facility] Last Admin: 03/22/17 10:10 Dose: 325 mg Clonazepam (Klonopin) 1 mg PO Q12 [facility] Last Admin: 03/22/17 10:10 Dose: 1 mg Furosemide (Lasix) 40 mg PO DAILY [facility] Last Admin: 03/22/17 10:10 Dose: 40 mg Gabapentin (Neurontin) 300 mg PO TID [facility] Last Admin: 03/22/17 10:09 Dose: 300 mg Heparin Sodium/Sodium Chloride (Heparin 72674 Units/250ml 1/2 Normal Saline) 25 ,000 units in 250 mls @ 18 mls/hr IV .[id number] PRN; Protocol PRN Reason: PROTOCOL Last Admin: 03/21/17 23:06 Dose: 10.33 units/kg/hr, 16.4 mls/hr Vancomycin/Sodium Chloride (Vancocin) 1 gm in 200 mls @ 133.333 mls/hr IVPB Q12H [facility] Stop: 03/26/17 10:01 Last Admin: 03/22/17 10:11 Dose: 133.333 mls/hr Piperacillin Sod/Tazobactam Sod (Zosyn 4.5 Gm Iv Premix) 4.5 gm in 100 mls @ 100 mls/hr IVPB Q6 [facility] Last Admin: 03/22/17 05:40 Dose: 100 mls/hr Losartan Potassium (Cozaar) 50 mg PO DAILY [facility] Last Admin: 03/22/17 10:09 Dose: 50 mg Metoprolol Tartrate (Lopressor) 50 mg PO BID [facility] Last Admin: 03/22/17 10:09 Dose: 50 mg Morphine Sulfate (Morphine) 2 mg IVP Q6H PRN PRN Reason: Pain, moderate (4-7) Last Admin: 03/22/17 10:10 Dose: 2 mg Nitroglycerin (Nitrostat Sl Tab) 0.4 mg SL Q5M PRN Rosuvastatin Calcium (Crestor) 20 mg PO HS [facility] Last Admin: 03/21/17 21:19 Dose: 20 mg - Labs Labs: 03/22/17 10:33 03/22/17 10:33 PT 13.3 SECONDS (9.7-12.2) H 03/20/17 22:39 INR 1.2 03/20/17 22:39 APTT 84 SECONDS (21-34) H D 03/22/17 06:28 - Constitutional Appears: Chronically Ill, Other (morbidly obese) - Head Exam Head Exam: ATRAUMATIC, NORMAL INSPECTION, NORMOCEPHALIC - Eye Exam Eye Exam: EOMI, Normal appearance, PERRL - ENT Exam ENT Exam: Mucous Membranes Moist, Normal Oropharynx - Neck Exam Neck Exam: Full ROM, Normal Inspection - Respiratory Exam Respiratory Exam: Rhonchi, Wheezes. absent: Rales - Cardiovascular Exam Cardiovascular Exam: REGULAR RHYTHM, +S1, +S2. absent: +S4, Murmur - Neurological Exam Neurological Exam: Alert, Awake, Oriented x3 - Psychiatric Exam Psychiatric exam: Normal Affect, Normal Mood - Skin Skin Exam: Normal Color, Warm Assessment and Plan - Assessment and Plan (Free Text) Assessment: 1. 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 SIRS/SEPSIS/PNA/UTI 4. Sacral Decub 5. Morbidly obese 6. OPHELIA ECHO done at bed side directly seen by me: Preserved LV function, no sig valve regurge, mild dilated RV with preserved RV function. Inferobasal and basal septum appear aneurysmal. Troponin: 6 > 7 > 14 > 15 Hypokalemia: replaced TELE: NSR, no arrythmia Clinically no angina, arrythmia or worsening systolic dysfunction sx's. 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 No plans for c.cath. [facility] Rx for CAD. * ASA 81 * Plavix 75 daily * Crestor * Metoprolol * Losartan * lasix * Imdur * Ranexa * * D/c Heparing GTT after 72 hours of use and change to DVT prophylaxis [facility] Rx for OPHELIA/Obesity Cont to Rx underlying spesis/SIRS/UTI/PNA/Bronchitis/sacral decub
--- NOTE | 2017-03-22 11:42 | CP.CCUPN ---
<Nestor Arcos Harman - Last Filed: 03/22/17 11:49> CCU Subjective - Physician Review Events Since Last Encounter (Free Text): 03/22/17 11:39 Pt resting comfortably Denies sob or chest pain at this time, mild cough Had PICC line placed this morning Pt on heparin drip Critical Care Time Spent (in minutes): 30 CCU Objective - Vital Signs / Intake & Output Vital Signs (Last 4 hours): Vital Signs BP 03/22/17 10:10 139/76 Intake and Output (Last 8hrs): Intake & Output 03/21/17 03/22/17 03/22/17 22:59 06:59 14:59 Intake Total 841.2 431.2 16.4 Output Total 1070 1100 Balance -228.8 -668.8 16.4 Intake: IV 250 Intake, IV Amount 331.2 331.2 16.4 left hand 200 200 right hand 131.2 131.2 16.4 Oral 260 100 Output: Urine 1070 1100 Urethral ([place]) 1070 1100 Other: # Bowel Movements 0 - Physical Exam Physical Exam Limitations: Negative for: Altered Mental Status Head: Positive for: Normocephalic Pupils: Positive for: PERRL Extroacular Muscles: Positive for: EOMI Mouth: Positive for: Moist Mucous Membranes Respiratory/Chest: Positive for: Wheezes, Rhonchi. Negative for: Respiratory Distress, Accessory Muscle Use Cardiovascular: Positive for: Regular Rate and Rhythm. Negative for: Murmurs Abdomen: Positive for: Normal Bowel Sounds. Negative for: Distention Lower Extremity: Negative for: Edema Psychiatric: Positive for: Alert, Oriented x 3 - Medications Active Medications: Active Medications Generic Name Dose Route Start Last Admin Trade Name Freq PRN Reason Stop Dose Admin Albuterol/Ipratropium 3 ml 03/21/17 00:00 03/22/17 11:25 Duoneb 3 Mg/0.5 Mg (3 Ml) Ud INH 3 ml RQ4 RIK Administration Aspirin 325 mg 03/20/17 23:45 03/22/17 10:10 Ecotrin PO 325 mg DAILY RIK Administration Clonazepam 1 mg 03/20/17 23:45 03/22/17 10:10 Klonopin PO 1 mg Q12 RIK Administration Furosemide 40 mg 03/21/17 16:45 03/22/17 10:10 Lasix PO 40 mg DAILY RIK Administration Gabapentin 300 mg 03/20/17 23:45 03/22/17 10:09 Neurontin PO 300 mg TID RIK Administration Heparin Sodium/Sodium Chloride 25,000 units in 250 mls @ 18 mls/hr 03/20/17 22 :49 03/21/17 23:06 Heparin 63681 Units/250ml 1/2 Normal Saline IV 10.33 units/kg/hr .[id number] PRN 16.4 mls/hr PROTOCOL Administration Protocol Vancomycin/Sodium Chloride 1 gm in 200 mls @ 133.333 mls/hr 03/21/17 10:00 10:11 Vancocin IVPB 03/26/17 10:01 133.333 mls/hr Q12H RIK Administration Piperacillin Sod/Tazobactam Sod 4.5 gm in 100 mls @ 100 mls/hr 03/21/17 01:00 03/22/17 05:40 Zosyn 4.5 Gm Iv Premix IVPB 100 mls/hr Q6 RIK Administration Potassium Chloride 20 meq in 100 mls @ 50 mls/hr 03/22/17 11:45 Potassium Chloride 20 Meq/100 Ml IVPB 03/22/17 17:44 Q2H RIK Magnesium Sulfate/Dextrose 1 gm in 100 mls @ 200 mls/hr 03/22/17 11:35 Magnesium Sulfate 1 Gm/100 Ml D5w IVPB 03/22/17 12:04 ONCE ONE Losartan Potassium 50 mg 03/22/17 10:00 03/22/17 10:09 Cozaar PO 50 mg DAILY RIK Administration Metoprolol Tartrate 50 mg 03/22/17 09:31 03/22/17 10:09 Lopressor PO 50 mg BID RIK Administration Morphine Sulfate 2 mg 03/20/17 23:50 03/22/17 10:10 Morphine IVP 2 mg Q6H PRN Administration Pain, moderate (4-7) Nitroglycerin 0.4 mg 03/20/17 23:50 Nitrostat Sl Tab SL Q5M PRN Rosuvastatin Calcium 20 mg 03/21/17 22:00 03/21/17 21:19 Crestor PO 20 mg HS RIK Administration - Patient Studies Lab Studies: Microbiology Studies 03/20/17 22:00 Blood Culture - Preliminary Blood NO GROWTH AFTER 24 HOURS 03/20/17 21:00 Blood Culture - Preliminary Blood NO GROWTH AFTER 24 HOURS Lab Studies 03/22/17 03/22/17 03/22/17 Range/Units 10:33 10:33 06:28 WBC 10.9 H (4.8-10.8) K/uL RBC 4.40 (3.80-5.20) Mil/uL Hgb 11.4 (11.0-16.0) g/dL Hct 36.1 (34.0-47.0) % MCV 82.1 (81.0-99.0) fL MCH 26.0 L (27.0-31.0) pg MCHC 31.7 L (33.0-37.0) g/dL RDW 17.1 H (11.5-14.5) % Plt Count 253 (130-400) K/uL MPV 8.5 (7.2-11.7) fL Neut % (Auto) (50.0-75.0) % Lymph % (Auto) (20.0-40.0) % Amelia % (Auto) (0.0-10.0) % Eos % (Auto) (0.0-4.0) % Baso % (Auto) (0.0-2.0) % Neut # (1.8-7.0) K/uL Lymph # (1.0-4.3) K/uL Amelia # (0.0-0.8) K/uL Eos # (0.0-0.7) K/uL Baso # (0.0-0.2) K/uL PT (9.7-12.2) SECONDS INR APTT (21-34) SECONDS D-Dimer, Quantitative (0-243) ng/mlDDU Sodium 138 135 (132-148) mmol/L Potassium 2.8 L 2.9 L (3.6-5.2) mmol/L Chloride 98 97 L (98-107) mmol/L Carbon Dioxide 31 H 28 (22-30) mmol/L Anion Gap 12 13 (10-20) BUN 8 8 (7-17) mg/dL Creatinine 0.7 0.6 L (0.7-1.2) MG/DL Est GFR ( Amer) > 60 > 60 Est GFR (Non-Af Amer) > 60 > 60 Random Glucose 120 H 91 (65-105) mg/dL Hemoglobin A1c (4.2-6.5) % Calcium 7.9 L 7.3 L (8.6-10.4) mg/dl Phosphorus 1.5 L (2.5-4.5) mg/dL Magnesium 1.4 L 1.4 L (1.6-2.3) mg/dL Total Bilirubin 0.6 0.7 (0.2-1.3) mg/dL AST 95 H 94 H D (14-36) U/L ALT 30 28 (9-52) U/L Alkaline Phosphatase 67 64 (38-126) U/L Total Creatine Kinase (30-135) U/L CK-MB (Mass) (0.0-3.38) ng/mL Troponin I 15.6000 H* (0.00-0.120) ng/mL Troponin I, Quant (0.00-0.120) ng/mL Total Protein 5.8 L 5.5 L (6.3-8.3) g/dL Albumin 2.8 L 2.8 L (3.5-5.0) g/dL Globulin 3.0 2.7 (2.2-3.9) gm/dL Albumin/Globulin Ratio 0.9 L 1.0 (1.0-2.1) Procalcitonin (0.19-0.49) NG/ML Urine Color (YELLOW) Urine Clarity (Clear) Urine pH (5.0-8.0) Ur Specific [place] (1.003-1.030) Urine Protein (NEGATIVE) mg/dL Urine Glucose (UA) (Normal) mg/dL Urine Ketones (NEGATIVE) mg/dL Urine Blood (NEGATIVE) Urine Nitrate (NEGATIVE) Urine Bilirubin (NEGATIVE) Urine Urobilinogen (0.2-1.0) mg/dL Ur Leukocyte Esterase (Negative) Mendoza/uL Urine WBC (Auto) (0-5) /hpf Urine RBC (Auto) (0-3) /hpf Urine WBC Clumps (Auto) (NONE) /hpf Ur Squamous Epith Cells (0-5) /hpf Urine Bacteria (<OCC) 03/22/17 03/22/17 03/21/17 Range/Units 06:28 06:28 20:23 WBC 11.7 H (4.8-10.8) K/uL RBC 4.43 (3.80-5.20) Mil/uL Hgb 11.4 (11.0-16.0) g/dL Hct 36.6 (34.0-47.0) % MCV 82.6 D (81.0-99.0) fL MCH 25.7 L (27.0-31.0) pg MCHC 31.1 L (33.0-37.0) g/dL RDW 16.9 H (11.5-14.5) % Plt Count 268 (130-400) K/uL MPV 8.6 (7.2-11.7) fL Neut % (Auto) 75.9 H (50.0-75.0) % Lymph % (Auto) 11.5 L (20.0-40.0) % Amelia % (Auto) 11.8 H (0.0-10.0) % Eos % (Auto) 0.2 (0.0-4.0) % Baso % (Auto) 0.6 (0.0-2.0) % Neut # 8.8 H (1.8-7.0) K/uL Lymph # 1.3 (1.0-4.3) K/uL Amelia # 1.4 H (0.0-0.8) K/uL Eos # 0.0 (0.0-0.7) K/uL Baso # 0.1 (0.0-0.2) K/uL PT (9.7-12.2) SECONDS INR APTT 84 H D 79 H D (21-34) SECONDS D-Dimer, Quantitative (0-243) ng/mlDDU Sodium (132-148) mmol/L Potassium (3.6-5.2) mmol/L Chloride (98-107) mmol/L Carbon Dioxide (22-30) mmol/L Anion Gap (10-20) BUN (7-17) mg/dL Creatinine (0.7-1.2) MG/DL Est GFR ( Amer) Est GFR (Non-Af Amer) Random Glucose (65-105) mg/dL Hemoglobin A1c (4.2-6.5) % Calcium (8.6-10.4) mg/dl Phosphorus (2.5-4.5) mg/dL Magnesium (1.6-2.3) mg/dL Total Bilirubin (0.2-1.3) mg/dL AST (14-36) U/L ALT (9-52) U/L Alkaline Phosphatase (38-126) U/L Total Creatine Kinase (30-135) U/L CK-MB (Mass) (0.0-3.38) ng/mL Troponin I (0.00-0.120) ng/mL Troponin I, Quant (0.00-0.120) ng/mL Total Protein (6.3-8.3) g/dL Albumin (3.5-5.0) g/dL Globulin (2.2-3.9) gm/dL Albumin/Globulin Ratio (1.0-2.1) Procalcitonin (0.19-0.49) NG/ML Urine Color (YELLOW) Urine Clarity (Clear) Urine pH (5.0-8.0) Ur Specific [place] (1.003-1.030) Urine Protein (NEGATIVE) mg/dL Urine Glucose (UA) (Normal) mg/dL Urine Ketones (NEGATIVE) mg/dL Urine Blood (NEGATIVE) Urine Nitrate (NEGATIVE) Urine Bilirubin (NEGATIVE) Urine Urobilinogen (0.2-1.0) mg/dL Ur Leukocyte Esterase (Negative) Mendoza/uL Urine WBC (Auto) (0-5) /hpf Urine RBC (Auto) (0-3) /hpf Urine WBC Clumps (Auto) (NONE) /hpf Ur Squamous Epith Cells (0-5) /hpf Urine Bacteria (<OCC) 03/21/17 03/21/17 03/21/17 Range/Units 14:29 04:40 04:40 WBC (4.8-10.8) K/uL RBC (3.80-5.20) Mil/uL Hgb (11.0-16.0) g/dL Hct (34.0-47.0) % MCV (81.0-99.0) fL MCH (27.0-31.0) pg MCHC (33.0-37.0) g/dL RDW (11.5-14.5) % Plt Count (130-400) K/uL MPV (7.2-11.7) fL Neut % (Auto) (50.0-75.0) % Lymph % (Auto) (20.0-40.0) % Amelia % (Auto) (0.0-10.0) % Eos % (Auto) (0.0-4.0) % Baso % (Auto) (0.0-2.0) % Neut # (1.8-7.0) K/uL Lymph # (1.0-4.3) K/uL Amelia # (0.0-0.8) K/uL Eos # (0.0-0.7) K/uL Baso # (0.0-0.2) K/uL PT (9.7-12.2) SECONDS INR APTT 64 H D (21-34) SECONDS D-Dimer, Quantitative (0-243) ng/mlDDU Sodium (132-148) mmol/L Potassium (3.6-5.2) mmol/L Chloride (98-107) mmol/L Carbon Dioxide (22-30) mmol/L Anion Gap (10-20) BUN (7-17) mg/dL Creatinine (0.7-1.2) MG/DL Est GFR ( Amer) Est GFR (Non-Af Amer) Random Glucose (65-105) mg/dL Hemoglobin A1c 6.1 (4.2-6.5) % Calcium (8.6-10.4) mg/dl Phosphorus (2.5-4.5) mg/dL Magnesium (1.6-2.3) mg/dL Total Bilirubin (0.2-1.3) mg/dL AST (14-36) U/L ALT (9-52) U/L Alkaline Phosphatase (38-126) U/L Total Creatine Kinase (30-135) U/L CK-MB (Mass) (0.0-3.38) ng/mL Troponin I (0.00-0.120) ng/mL Troponin I, Quant (0.00-0.120) ng/mL Total Protein (6.3-8.3) g/dL Albumin (3.5-5.0) g/dL Globulin (2.2-3.9) gm/dL Albumin/Globulin Ratio (1.0-2.1) Procalcitonin 0.37 (0.19-0.49) NG/ML Urine Color (YELLOW) Urine Clarity (Clear) Urine pH (5.0-8.0) Ur Specific [place] (1.003-1.030) Urine Protein (NEGATIVE) mg/dL Urine Glucose (UA) (Normal) mg/dL Urine Ketones (NEGATIVE) mg/dL Urine Blood (NEGATIVE) Urine Nitrate (NEGATIVE) Urine Bilirubin (NEGATIVE) Urine Urobilinogen (0.2-1.0) mg/dL Ur Leukocyte Esterase (Negative) Mendoza/uL Urine WBC (Auto) (0-5) /hpf Urine RBC (Auto) (0-3) /hpf Urine WBC Clumps (Auto) (NONE) /hpf Ur Squamous Epith Cells (0-5) /hpf Urine Bacteria (<OCC) 03/20/17 03/20/17 03/20/17 Range/Units 22:04 21:32 21:32 WBC (4.8-10.8) K/uL RBC (3.80-5.20) Mil/uL Hgb (11.0-16.0) g/dL Hct (34.0-47.0) % MCV (81.0-99.0) fL MCH (27.0-31.0) pg MCHC (33.0-37.0) g/dL RDW (11.5-14.5) % Plt Count (130-400) K/uL MPV (7.2-11.7) fL Neut % (Auto) (50.0-75.0) % Lymph % (Auto) (20.0-40.0) % Amelia % (Auto) (0.0-10.0) % Eos % (Auto) (0.0-4.0) % Baso % (Auto) (0.0-2.0) % Neut # (1.8-7.0) K/uL Lymph # (1.0-4.3) K/uL Amelia # (0.0-0.8) K/uL Eos # (0.0-0.7) K/uL Baso # (0.0-0.2) K/uL PT 13.2 H (9.7-12.2) SECONDS INR 1.2 APTT 30 (21-34) SECONDS D-Dimer, Quantitative 630 H (0-243) ng/mlDDU Sodium 139 (132-148) mmol/L Potassium 3.3 L (3.6-5.2) mmol/L Chloride 100 (98-107) mmol/L Carbon Dioxide 26 (22-30) mmol/L Anion Gap 16 (10-20) BUN 20 H (7-17) mg/dL Creatinine 1.1 (0.7-1.2) MG/DL Est GFR ( Amer) > 60 Est GFR (Non-Af Amer) 51 Random Glucose 116 H (65-105) mg/dL Hemoglobin A1c (4.2-6.5) % Calcium 8.3 L (8.6-10.4) mg/dl Phosphorus (2.5-4.5) mg/dL Magnesium (1.6-2.3) mg/dL Total Bilirubin 0.7 (0.2-1.3) mg/dL AST 99 H D (14-36) U/L ALT 27 (9-52) U/L Alkaline Phosphatase 100 (38-126) U/L Total Creatine Kinase 1329 H (30-135) U/L CK-MB (Mass) 45.9 H (0.0-3.38) ng/mL Troponin I (0.00-0.120) ng/mL Troponin I, Quant 6.0500 H* (0.00-0.120) ng/mL Total Protein 6.5 (6.3-8.3) g/dL Albumin 3.3 L (3.5-5.0) g/dL Globulin 3.3 (2.2-3.9) gm/dL Albumin/Globulin Ratio 1.0 (1.0-2.1) Procalcitonin (0.19-0.49) NG/ML Urine Color Arely (YELLOW) Urine Clarity Hazy (Clear) Urine pH 5.0 (5.0-8.0) Ur Specific [place] 1.028 (1.003-1.030) Urine Protein 2+ H (NEGATIVE) mg/dL Urine Glucose (UA) Normal (Normal) mg/dL Urine Ketones Trace (NEGATIVE) mg/dL Urine Blood 3+ H (NEGATIVE) Urine Nitrate Negative (NEGATIVE) Urine Bilirubin Negative (NEGATIVE) Urine Urobilinogen 4.0 H (0.2-1.0) mg/dL Ur Leukocyte Esterase 1+ H (Negative) Mendoza/uL Urine WBC (Auto) 36 H (0-5) /hpf Urine RBC (Auto) 61 H (0-3) /hpf Urine WBC Clumps (Auto) Few H (NONE) /hpf Ur Squamous Epith Cells 9 H (0-5) /hpf Urine Bacteria Mod H (<OCC) 03/20/17 Range/Units 21:32 WBC 11.3 H (4.8-10.8) K/uL RBC 5.07 (3.80-5.20) Mil/uL Hgb 12.9 (11.0-16.0) g/dL Hct 42.1 (34.0-47.0) % MCV 83.1 D (81.0-99.0) fL MCH 25.5 L (27.0-31.0) pg MCHC 30.7 L (33.0-37.0) g/dL RDW 17.5 H (11.5-14.5) % Plt Count 344 (130-400) K/uL MPV 8.5 (7.2-11.7) fL Neut % (Auto) 79.0 H (50.0-75.0) % Lymph % (Auto) 10.6 L (20.0-40.0) % Amelia % (Auto) 9.3 (0.0-10.0) % Eos % (Auto) 0.6 (0.0-4.0) % Baso % (Auto) 0.5 (0.0-2.0) % Neut # 8.9 H (1.8-7.0) K/uL Lymph # 1.2 (1.0-4.3) K/uL Amelia # 1.0 H (0.0-0.8) K/uL Eos # 0.1 (0.0-0.7) K/uL Baso # 0.1 (0.0-0.2) K/uL PT (9.7-12.2) SECONDS INR APTT (21-34) SECONDS D-Dimer, Quantitative (0-243) ng/mlDDU Sodium (132-148) mmol/L Potassium (3.6-5.2) mmol/L Chloride (98-107) mmol/L Carbon Dioxide (22-30) mmol/L Anion Gap (10-20) BUN (7-17) mg/dL Creatinine (0.7-1.2) MG/DL Est GFR ( Amer) Est GFR (Non-Af Amer) Random Glucose (65-105) mg/dL Hemoglobin A1c (4.2-6.5) % Calcium (8.6-10.4) mg/dl Phosphorus (2.5-4.5) mg/dL Magnesium (1.6-2.3) mg/dL Total Bilirubin (0.2-1.3) mg/dL AST (14-36) U/L ALT (9-52) U/L Alkaline Phosphatase (38-126) U/L Total Creatine Kinase (30-135) U/L CK-MB (Mass) (0.0-3.38) ng/mL Troponin I (0.00-0.120) ng/mL Troponin I, Quant (0.00-0.120) ng/mL Total Protein (6.3-8.3) g/dL Albumin (3.5-5.0) g/dL Globulin (2.2-3.9) gm/dL Albumin/Globulin Ratio (1.0-2.1) Procalcitonin (0.19-0.49) NG/ML Urine Color (YELLOW) Urine Clarity (Clear) Urine pH (5.0-8.0) Ur Specific [place] (1.003-1.030) Urine Protein (NEGATIVE) mg/dL Urine Glucose (UA) (Normal) mg/dL Urine Ketones (NEGATIVE) mg/dL Urine Blood (NEGATIVE) Urine Nitrate (NEGATIVE) Urine Bilirubin (NEGATIVE) Urine Urobilinogen (0.2-1.0) mg/dL Ur Leukocyte Esterase (Negative) Mendoza/uL Urine WBC (Auto) (0-5) /hpf Urine RBC (Auto) (0-3) /hpf Urine WBC Clumps (Auto) (NONE) /hpf Ur Squamous Epith Cells (0-5) /hpf Urine Bacteria (<OCC) Laboratory Results - last 24 hr 03/20/17 03/20/17 03/20/17 21:32 21:32 21:32 WBC 11.3 H RBC 5.07 Hgb 12.9 Hct 42.1 MCV 83.1 D MCH 25.5 L MCHC 30.7 L RDW 17.5 H Plt Count 344 MPV 8.5 Neut % (Auto) 79.0 H Lymph % (Auto) 10.6 L Amelia % (Auto) 9.3 Eos % (Auto) 0.6 Baso % (Auto) 0.5 Neut # 8.9 H Lymph # 1.2 Amelia # 1.0 H Eos # 0.1 Baso # 0.1 PT 13.2 H INR 1.2 APTT 30 D-Dimer, Quantitative 630 H Sodium 139 Potassium 3.3 L Chloride 100 Carbon Dioxide 26 Anion Gap 16 BUN 20 H Creatinine 1.1 Est GFR ( Amer) > 60 Est GFR (Non-Af Amer) 51 Random Glucose 116 H Hemoglobin A1c Calcium 8.3 L Phosphorus Magnesium Total Bilirubin 0.7 AST 99 H D ALT 27 Alkaline Phosphatase 100 Total Creatine Kinase 1329 H CK-MB (Mass) 45.9 H Troponin I Troponin I, Quant 6.0500 H* Total Protein 6.5 Albumin 3.3 L Globulin 3.3 Albumin/Globulin Ratio 1.0 Procalcitonin Urine Color Urine Clarity Urine pH Ur Specific [place] Urine Protein Urine Glucose (UA) Urine Ketones Urine Blood Urine Nitrate Urine Bilirubin Urine Urobilinogen Ur Leukocyte Esterase Urine WBC (Auto) Urine RBC (Auto) Urine WBC Clumps (Auto) Ur Squamous Epith Cells Urine Bacteria 03/20/17 03/21/17 03/21/17 22:04 04:40 04:40 WBC RBC Hgb Hct MCV MCH MCHC RDW Plt Count MPV Neut % (Auto) Lymph % (Auto) Amelia % (Auto) Eos % (Auto) Baso % (Auto) Neut # Lymph # Amelia # Eos # Baso # PT INR APTT D-Dimer, Quantitative Sodium Potassium Chloride Carbon Dioxide Anion Gap BUN Creatinine Est GFR ( Amer) Est GFR (Non-Af Amer) Random Glucose Hemoglobin A1c 6.1 Calcium Phosphorus Magnesium Total Bilirubin AST ALT Alkaline Phosphatase Total Creatine Kinase CK-MB (Mass) Troponin I Troponin I, Quant Total Protein Albumin Globulin Albumin/Globulin Ratio Procalcitonin 0.37 Urine Color Arely Urine Clarity Hazy Urine pH 5.0 Ur Specific [place] 1.028 Urine Protein 2+ H Urine Glucose (UA) Normal Urine Ketones Trace Urine Blood 3+ H Urine Nitrate Negative Urine Bilirubin Negative Urine Urobilinogen 4.0 H Ur Leukocyte Esterase 1+ H Urine WBC (Auto) 36 H Urine RBC (Auto) 61 H Urine WBC Clumps (Auto) Few H Ur Squamous Epith Cells 9 H Urine Bacteria Mod H 03/21/17 03/21/1717 14:29 20:23 06:28 WBC RBC Hgb Hct MCV MCH MCHC RDW Plt Count MPV Neut % (Auto) Lymph % (Auto) Amelia % (Auto) Eos % (Auto) Baso % (Auto) Neut # Lymph # Amelia # Eos # Baso # PT INR APTT 64 H D 79 H D 84 H D D-Dimer, Quantitative Sodium Potassium Chloride Carbon Dioxide Anion Gap BUN Creatinine Est GFR ( Amer) Est GFR (Non-Af Amer) Random Glucose Hemoglobin A1c Calcium Phosphorus Magnesium Total Bilirubin AST ALT Alkaline Phosphatase Total Creatine Kinase CK-MB (Mass) Troponin I Troponin I, Quant Total Protein Albumin Globulin Albumin/Globulin Ratio Procalcitonin Urine Color Urine Clarity Urine pH Ur Specific [place] Urine Protein Urine Glucose (UA) Urine Ketones Urine Blood Urine Nitrate Urine Bilirubin Urine Urobilinogen Ur Leukocyte Esterase Urine WBC (Auto) Urine RBC (Auto) Urine WBC Clumps (Auto) Ur Squamous Epith Cells Urine Bacteria 03/22/17 03/22/17 03/22/17 06:28 06:28 10:33 WBC 11.7 H 10.9 H RBC 4.43 4.40 Hgb 11.4 11.4 Hct 36.6 36.1 MCV 82.6 D 82.1 MCH 25.7 L 26.0 L MCHC 31.1 L 31.7 L RDW 16.9 H 17.1 H Plt Count 268 253 MPV 8.6 8.5 Neut % (Auto) 75.9 H Lymph % (Auto) 11.5 L Amelia % (Auto) 11.8 H Eos % (Auto) 0.2 Baso % (Auto) 0.6 Neut # 8.8 H Lymph # 1.3 Amelia # 1.4 H Eos # 0.0 Baso # 0.1 PT INR APTT D-Dimer, Quantitative Sodium 135 Potassium 2.9 L Chloride 97 L Carbon Dioxide 28 Anion Gap 13 BUN 8 Creatinine 0.6 L Est GFR ( Amer) > 60 Est GFR (Non-Af Amer) > 60 Random Glucose 91 Hemoglobin A1c Calcium 7.3 L Phosphorus 1.5 L Magnesium 1.4 L Total Bilirubin 0.7 AST 94 H D ALT 28 Alkaline Phosphatase 64 Total Creatine Kinase CK-MB (Mass) Troponin I Troponin I, Quant Total Protein 5.5 L Albumin 2.8 L Globulin 2.7 Albumin/Globulin Ratio 1.0 Procalcitonin Urine Color Urine Clarity Urine pH Ur Specific [place] Urine Protein Urine Glucose (UA) Urine Ketones Urine Blood Urine Nitrate Urine Bilirubin Urine Urobilinogen Ur Leukocyte Esterase Urine WBC (Auto) Urine RBC (Auto) Urine WBC Clumps (Auto) Ur Squamous Epith Cells Urine Bacteria 03/22/17 10:33 WBC RBC Hgb Hct MCV MCH MCHC RDW Plt Count MPV Neut % (Auto) Lymph % (Auto) Amelia % (Auto) Eos % (Auto) Baso % (Auto) Neut # Lymph # Amelia # Eos # Baso # PT INR APTT D-Dimer, Quantitative Sodium 138 Potassium 2.8 L Chloride 98 Carbon Dioxide 31 H Anion Gap 12 BUN 8 Creatinine 0.7 Est GFR ( Amer) > 60 Est GFR (Non-Af Amer) > 60 Random Glucose 120 H Hemoglobin A1c Calcium 7.9 L Phosphorus Magnesium 1.4 L Total Bilirubin 0.6 AST 95 H ALT 30 Alkaline Phosphatase 67 Total Creatine Kinase CK-MB (Mass) Troponin I 15.6000 H* Troponin I, Quant Total Protein 5.8 L Albumin 2.8 L Globulin 3.0 Albumin/Globulin Ratio 0.9 L Procalcitonin Urine Color Urine Clarity Urine pH Ur Specific [place] Urine Protein Urine Glucose (UA) Urine Ketones Urine Blood Urine Nitrate Urine Bilirubin Urine Urobilinogen Ur Leukocyte Esterase Urine WBC (Auto) Urine RBC (Auto) Urine WBC Clumps (Auto) Ur Squamous Epith Cells Urine Bacteria Critical Care Progress Note - Nutrition Nutrition: Nutrition Category Date Time Status Heart Healthy Diet [DIET] Diets 03/21/17 Breakfast Active Assessment/Plan - Assessment and Plan (Free Text) Assessment: 61F w/ NSTEMI, SIRS/SEPSIS likely 2/2 PNA/UTI; old inferior infarct, sacral decub, morbid obesity, OPHELIA Plan: electrolytes repleted PICC line in place given elevated troponins will remain in ICU d/w Cardiology; plan for ECHO, need for intervention likely dependent upon wall kinetics. Will cont heparin drip, beta-sisi, anti-platelets Cont BIPAP PRN overall prognosis guarded will d/w Dr Amy Arcos, PGY3 - Date & Time Date: 03/22/17 Time: 11:50 <Minda Reyes - Last Filed: 03/29/17 19:30> CCU Objective - Vital Signs / Intake & Output Vital Signs (Last 4 hours): Vital Signs Temp Pulse Resp BP Pulse Ox 03/29/17 16:07 97.3 F L 81 20 96/58 L 94 L Intake and Output (Last 8hrs): Intake & Output 03/29/17 03/29/17 03/29/17 06:59 14:59 22:59 Intake Total 1340 350 Output Total 1300 1000 Balance 40 -650 Weight 350 lb Intake: Intake, IV Amount 800 110 Right Upper arm 800 110 Oral 540 240 Output: Urine 1300 1000 Urethral (Colmenares) 1300 1000 Other: # Bowel Movements 0 0 - Medications Active Medications: Active Medications Generic Name Dose Route Start Last Admin Trade Name Freq PRN Reason Stop Dose Admin Albuterol Sulfate 2.5 mg 03/28/17 11:34 03/29/17 08:10 Albuterol 0.083% Inhal Cee (2.5 Mg/3 Ml) Ud INH 2.5 mg RQ6 PRN Administration Shortness of Breath Apixaban 10 mg 03/29/17 18:00 03/29/17 18:02 Eliquis PO 04/05/17 18:00 10 mg BID RIK Administration Aspirin 81 mg 03/25/17 08:02 03/29/17 09:37 Ecotrin PO 81 mg DAILY RIK Administration Clonazepam 1 mg 03/20/17 23:45 03/29/17 09:37 Klonopin PO 1 mg Q12 RIK Administration Famotidine 20 mg 03/25/17 10:00 03/29/17 18:09 Pepcid PO 20 mg BID RIK Administration Furosemide 40 mg 03/28/17 16:30 03/29/17 09:52 Lasix IVP 40 mg DAILY RIK Administration Gabapentin 300 mg 03/20/17 23:45 03/29/17 18:03 Neurontin PO 300 mg TID RIK Administration Cefepime HCl 2 gm in 100 mls @ 200 mls/hr 03/29/17 18:00 03/29/17 18:21 Maxipime Iv 2 Gm Premix IVPB 04/03/17 18:01 200 mls/hr Q12H RIK Administration Isosorbide Mononitrate 30 mg 03/25/17 10:00 03/29/17 09:53 Imdur PO 30 mg DAILY RIK Administration Losartan Potassium 50 mg 03/22/17 16:09 03/29/17 09:55 Cozaar PO 50 mg DAILY RIK Administration Morphine Sulfate 2 mg 03/24/17 10:56 03/29/17 18:20 Morphine IVP 2 mg Q4H PRN Administration Pain, moderate (4-7) Nitroglycerin 0.4 mg 03/20/17 23:50 Nitrostat Sl Tab SL Q5M PRN Nystatin 1 applic 03/29/17 18:00 03/29/17 18:03 Nystop Topical Powder TOP 1 applic BID RIK Administration Promethazine HCl/Codeine 5 ml 03/22/17 16:10 03/29/17 16:25 Phenergan/Codeine Oral Syrup PO 5 ml Q4 PRN Administration Cough Ranolazine 500 mg 03/24/17 10:00 03/29/17 18:02 Ranexa PO 500 mg BID RIK Administration Rosuvastatin Calcium 20 mg 03/21/17 22:00 03/28/17 21:59 Crestor PO 20 mg HS RIK Administration Saccharomyces Boulardii 250 mg 03/22/17 18:00 03/29/17 18:03 Florastor PO 250 mg BID RIK Administration Tiotropium [place] 18 mcg 03/26/17 08:00 03/29/17 08:10 Spiriva INH 18 mcg RQ24 RIK Administration - Patient Studies Lab Studies: Microbiology Studies 03/28/17 Unknown Urine Culture - Final Urine,[place]men[place] No Growth (<1,000 CFU/ML) 03/28/17 06:00 Blood Culture - Preliminary Blood NO GROWTH AFTER 24 HOURS 03/28/17 06:20 Blood Culture - Preliminary Blood NO GROWTH AFTER 24 HOURS Lab Studies 03/29/17 03/29/17 03/22/17 Range/Units 06:28 06:28 08:15 WBC 17.5 H (4.8-10.8) K/uL RBC 4.25 (3.80-5.20) Mil/uL Hgb 10.9 L (11.0-16.0) g/dL Hct 35.5 (34.0-47.0) % MCV 83.5 (81.0-99.0) fL MCH 25.6 L (27.0-31.0) pg MCHC 30.7 L (33.0-37.0) g/dL RDW 16.7 H (11.5-14.5) % Plt Count 292 (130-400) K/uL MPV 8.7 (7.2-11.7) fL Neut % (Auto) 69.3 (50.0-75.0) % Lymph % (Auto) 19.0 L (20.0-40.0) % Amelia % (Auto) 7.8 (0.0-10.0) % Eos % (Auto) 3.2 (0.0-4.0) % Baso % (Auto) 0.7 (0.0-2.0) % Neut # 12.1 H (1.8-7.0) K/uL Lymph # 3.3 (1.0-4.3) K/uL Amelia # 1.4 H (0.0-0.8) K/uL Eos # 0.6 (0.0-0.7) K/uL Baso # 0.1 (0.0-0.2) K/uL Sodium 137 (132-148) mmol/L Potassium 3.2 L (3.6-5.2) mmol/L Chloride 94 L (98-107) mmol/L Carbon Dioxide 33 H (22-30) mmol/L Anion Gap 13 (10-20) BUN 13 (7-17) mg/dL Creatinine 1.0 (0.7-1.2) MG/DL Est GFR ( Amer) > 60 Est GFR (Non-Af Amer) 57 Random Glucose 82 (65-105) mg/dL Calcium 8.7 (8.6-10.4) mg/dl Total Bilirubin 0.8 (0.2-1.3) mg/dL AST 22 (14-36) U/L ALT 17 (9-52) U/L Alkaline Phosphatase 54 (38-126) U/L Total Protein 6.5 (6.3-8.3) g/dL Albumin 2.9 L (3.5-5.0) g/dL Globulin 3.6 (2.2-3.9) gm/dL Albumin/Globulin Ratio 0.8 L (1.0-2.1) Ur Strep pneumoniae Ag Not detected Laboratory Results - last 24 hr 03/22/17 03/29/17 03/29/17 08:15 06:28 06:28 WBC 17.5 H RBC 4.25 Hgb 10.9 L Hct 35.5 MCV 83.5 MCH 25.6 L MCHC 30.7 L RDW 16.7 H Plt Count 292 MPV 8.7 Neut % (Auto) 69.3 Lymph % (Auto) 19.0 L Amelia % (Auto) 7.8 Eos % (Auto) 3.2 Baso % (Auto) 0.7 Neut # 12.1 H Lymph # 3.3 Amelia # 1.4 H Eos # 0.6 Baso # 0.1 Sodium 137 Potassium 3.2 L Chloride 94 L Carbon Dioxide 33 H Anion Gap 13 BUN 13 Creatinine 1.0 Est GFR ( Amer) > 60 Est GFR (Non-Af Amer) 57 Random Glucose 82 Calcium 8.7 Total Bilirubin 0.8 AST 22 ALT 17 Alkaline Phosphatase 54 Total Protein 6.5 Albumin 2.9 L Globulin 3.6 Albumin/Globulin Ratio 0.8 L Ur Strep pneumoniae Ag Not detected Critical Care Progress Note - Nutrition Nutrition: Nutrition Category Date Time Status Heart Healthy Diet [DIET] Diets 03/21/17 Breakfast Active Attending/Attestation - Attestation I have personally seen and examined this patient.: Yes I have fully participated in the care of the patient.: Yes I have reviewed all pertinent clinical information: Yes Notes (Text): 03/29/17 19:30 agree with above note during rounds in the am pt was examined and clinical decision was made and discussed with icu team
[2017-03-22] MEDS ORDERED: Magnesium Sulfate 1 gm in D5W 1 GM/100 ML BAG IVPB ONE ×2 (12:00→15:20)
--- NOTE | 2017-03-22 14:26 | CARD ---
APPROVED REPORT EXAM: Two-dimensional and M-mode echocardiogram with Doppler and color Doppler. Other Information Quality : Technically LimitedRhythm : NSR RISK FACTORS Hypertension Obesity Smoking M-Mode DIMENSIONS RVDd0.96 (2.1-3.2cm)Left Atrium (MM)4.39 (2.5-4.0cm) IVSd1.18 (0.7-1.1cm)Aortic Root2.88 (2.2-3.7cm) LVDd5.24 (4.0-5.6cm)Aortic Cusp Exc.2.14 (1.5-2.0cm) PWd1.14 (0.7-1.1cm)FS (%) 23 % LVDs4.06 (2.0-3.8cm)LVEF (%)45 (>50%) Mitral Valve MV E Abevmqwj22.0cm/sMV A Dvjvepfh027.2cm/sE/A ratio0.8 TDI E/Lateral E'0.0E/Medial E'0.0 Tricuspid Valve TR Peak [id number]/sTR Peak Gr.[id number] LEFT VENTRICLE The left ventricle is normal size. There is normal left ventricular wall thickness. The left ventricular function is normal. The left ventricular ejection fraction is within the normal range. About 65% No regional wall motion abnormalities noted. Transmitral Doppler flow pattern is Grade I-abnormal relaxation pattern. No left ventricle thrombus noted on this study. There is no ventricular septal defect visualized. There is no left ventricular aneurysm. There is no mass noted in the left ventricle. RIGHT VENTRICLE The right ventricle is Mildly dilated. The right ventricular systolic function is Mildly reduced. ATRIA The left atrium size is normal. The right atrium size is normal. The interatrial septum is intact with no evidence for an atrial septal defect. AORTIC VALVE The aortic valve is normal in structure and function. No aortic regurgitation is present. There is no aortic valvular stenosis. There is no aortic valvular vegetation. MITRAL VALVE The mitral valve is normal in structure and function. There is no evidence of mitral valve prolapse. There is no mitral valve stenosis. There is no mitral valve regurgitation noted. TRICUSPID VALVE The tricuspid valve is normal in structure and function. There is Mild tricuspid valve regurgitation noted. estimated PA systolic pressure is 36 mm Hg. There is no tricuspid valve prolapse or vegetation. There is no tricuspid valve stenosis. PULMONIC VALVE not well seen. GREAT VESSELS The aortic root is normal in size. The ascending aorta is normal in size. The pulmonary artery is normal. Not well seen. PERICARDIAL EFFUSION The pericardium appears normal. There is no pleural effusion. <Conclusion> Normal LV EF, Type I diastolic dysfunction. Mildly dilated RV and mildly reduced RV function. (a visual estimate, as study quality is very sub-optimal.). Normal Doppler.
--- NOTE | 2017-03-22 15:27 | CP.PCM.PN ---
Subjective - Date & Time of Evaluation Date of Evaluation: 03/22/17 Time of Evaluation: 15:30 - Subjective Subjective: Medical Attending Note Follow-up: Nonstemi, SIRS, Atelectasis vs Pneumonia, History of OPHELIA, History of COPD, Morbid obese, History of hypertension Patient seen and examined at bedside. Patient reports she feels tired, cough, denies fever, denies chills, denies chest pain, denies abdominal pain, denies nausea, denies constipation, denies edema. patient reports he has lost 65lbs about 1 year ago. Patient denies history of diabetes, denies hypertension, denies cholestrol problems. patient reports she is a current smoker. Patient has not followed up with pulmonary doctor. Patient's PMD: Dr. Yue Dorantes Objective - Vital Signs/Intake and Output Vital Signs (last 24 hours): Temp Pulse Resp BP Pulse Ox 99.7 F H 76 30 H 109/52 L 93 L 03/22/17 08:00 03/22/17 13:30 03/22/17 13:30 03/22/17 12:58 03/22/17 13:30 Intake and Output: 03/22/17 03/22/17 06:59 18:59 Intake Total 1046.8 748.4 Output Total 2000 1400 Balance -953.2 -651.6 - Medications Medications: Current Medications Albuterol/Ipratropium (Duoneb 3 Mg/0.5 Mg (3 Ml) Ud) 3 ml INH RQ4 [facility] Last Admin: 03/22/17 11:25 Dose: 3 ml Aspirin (Ecotrin) 325 mg PO DAILY [facility] Last Admin: 03/22/17 10:10 Dose: 325 mg Clonazepam (Klonopin) 1 mg PO Q12 [facility] Last Admin: 03/22/17 10:10 Dose: 1 mg Furosemide (Lasix) 40 mg PO DAILY [facility] Last Admin: 03/22/17 10:10 Dose: 40 mg Gabapentin (Neurontin) 300 mg PO TID [facility] Last Admin: 03/22/17 13:30 Dose: 300 mg Heparin Sodium/Sodium Chloride (Heparin 09080 Units/250ml 1/2 Normal Saline) 25 ,000 units in 250 mls @ 18 mls/hr IV .[id number] PRN; Protocol PRN Reason: PROTOCOL Last Admin: 03/21/17 23:06 Dose: 10.33 units/kg/hr, 16.4 mls/hr Vancomycin/Sodium Chloride (Vancocin) 1 gm in 200 mls @ 133.333 mls/hr IVPB Q12H [facility] Stop: 03/26/17 10:01 Last Admin: 03/22/17 10:11 Dose: 133.333 mls/hr Piperacillin Sod/Tazobactam Sod (Zosyn 4.5 Gm Iv Premix) 4.5 gm in 100 mls @ 100 mls/hr IVPB Q6 [facility] Last Admin: 03/22/17 13:27 Dose: 100 mls/hr Potassium Chloride (Potassium Chloride 20 Meq/100 Ml) 20 meq in 100 mls @ 50 mls/hr IVPB Q2H [facility] Stop: 03/22/17 23:59 Last Admin: 03/22/17 13:26 Dose: 50 mls/hr Magnesium Sulfate/Dextrose (Magnesium Sulfate 1 Gm/100 Ml D5w) 1 gm in 100 mls @ 200 mls/hr IVPB ONCE ONE Stop: 03/22/17 15:49 Losartan Potassium (Cozaar) 50 mg PO DAILY [facility] Last Admin: 03/22/17 10:09 Dose: 50 mg Metoprolol Tartrate (Lopressor) 50 mg PO BID [facility] Last Admin: 03/22/17 10:09 Dose: 50 mg Morphine Sulfate (Morphine) 2 mg IVP Q6H PRN PRN Reason: Pain, moderate (4-7) Last Admin: 03/22/17 10:10 Dose: 2 mg Nitroglycerin (Nitrostat Sl Tab) 0.4 mg SL Q5M PRN Rosuvastatin Calcium (Crestor) 20 mg PO HS [facility] Last Admin: 03/21/17 21:19 Dose: 20 mg - Labs Labs: 03/22/17 10:33 03/22/17 10:33 PT 13.3 SECONDS (9.7-12.2) H 03/20/17 22:39 INR 1.2 03/20/17 22:39 APTT 84 SECONDS (21-34) H D 03/22/17 06:28 - Constitutional Appears: Non-toxic, No Acute Distress - Head Exam Head Exam: NORMAL INSPECTION Additional comments: morbidly obese Colmenares present - Eye Exam Eye Exam: EOMI - ENT Exam ENT Exam: Mucous Membranes Dry - Respiratory Exam Respiratory Exam: Decreased Breath Sounds, Rhonchi, NORMAL BREATHING PATTERN. absent: Stridor - Cardiovascular Exam Cardiovascular Exam: REGULAR RHYTHM, +S1, +S2 - GI/Abdominal Exam GI & Abdominal Exam: Distended, Soft, Normal Bowel Sounds. absent: Firm, Guarding, Rigid, Tenderness, Rebound Additional comments: morbidly obese - Extremities Exam Extremities Exam: absent: Pedal Edema, Tenderness - Neurological Exam Neurological Exam: Alert, Awake, Oriented x3 - Psychiatric Exam Psychiatric exam: Normal Affect, Normal Mood - Skin Skin Exam: Dry, Intact, Normal Color, Warm Assessment and Plan (1) Non-STEMI (non-ST elevated myocardial infarction) Assessment & Plan: Cardiology (Dr. David) on board-->help appreciated Per cardiology note, bedside ECHO (03/22/17)--> Preserved LV function, no sig valve regurge, mild dilated RV with preserved RV function. Inferobasal and basal septum appear aneurysmal. Troponin increasing Hypokalemia: replaced Clinically no angina, arrythmia or worsening systolic dysfunction sx's. 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 No plans for c.cath. [facility] Rx for CAD. Per cardiology, * ASA 81 mg PO daily * Plavix 75mg PO daily * Crestor 20mg PO qHS * Metoprolol 50mg PO BID (Hold SBP<100 and HR<60) * Losartan 50mg PO daily (Hold SBP<100) * Lasix 40mg PO daily (Hold SBP<100) * Recommended for Imdur/Ranexa--->patient is currently not on these medications SBP: 80s * Recommended heparin drip after 72 hours use change to DVT ppx * [facility] pulmonary Rx for OPHELIA/Obesity * Cont to Rx underlying spesis/SIRS/UTI/PNA/Bronchitis/sacral decub Status: Acute (2) Morbidly obese Status: Chronic (3) SIRS (systemic inflammatory response syndrome) Assessment & Plan: Chest xray (03/20/17): no acute findings CT Chest (03/20/17): no ct evidence of acute pulmonary embolism, aortic aneurysm, or aortic dissection. [place] airspace disease in the posterio basal segment of the left lower lobe may represent subsegmental atelectasis however pneumonia cannot be excluded. Patient has moderate left hilar lymphadenopathy of uncertain etiology Chest Xray (03/22/17) New right PICC catheter terminates at level of cavoatrial junction. Mild congestive change. Zosyn 4.5 IV Q 6hours (Active since 03/21/17) Vancomycin 1 gram IVQ 12hours (active since 03/21/17) Florastor 250mg PO bid Blood culture (03/20/17): no growth after 24hours X2 MRSA (03/21/17) not detected Ordered for UA, urine culture Order strep pneumoniae, legionella, and mycoplasma IGM Tmax: Low grade fever: 99.7F, White count downtrending sacral wound: turn q 2hours, and wound care Status: Acute (4) HTN (hypertension) Assessment & Plan: * Metoprolol 50mg PO BID (Hold SBP<100 and HR<60) * Losartan 50mg PO daily (Hold SBP<100) * Lasix 40mg PO daily (Hold SBP<100) Status: Chronic (5) OPHELIA (obstructive sleep apnea) Status: Chronic (6) COPD (chronic obstructive pulmonary disease) Status: Chronic (7) Prophylactic measure Assessment & Plan: Heparin drip for 72 hours per cardiology-->then can be transitioned to DVT ppx GI ppx: Pepcid 20mg PO daily Wound care TurnQ 2hours Aspirin 81mg PO daily Status: Acute
[2017-03-22 17:13] LABS: GFR AFRICAN-AMERICAN > 60; GFR NON-AFRICAN AMERICAN > 60
[2017-03-22 17:14] LABS: BLOOD UREA NITROGEN 7 mg/dL (7-17); CALCIUM 8.2 mg/dl (8.6-10.4)
[2017-03-22 17:16] LABS: SQUAMOUS EPITHIAL < 1 /hpf (0-5); URINE BACTERIA RARE (<OCC); URINE BILIRUBIN NEGATIVE (NEGATIVE); URINE CLARITY Clear (Clear); URINE COLOR Straw (YELLOW); URINE GLUCOSE (UA) NORMAL (Normal); URINE LEUKOCYTE ESTERASE NEG Leu/uL (Negative); URINE NITRATE NEGATIVE (NEGATIVE); URINE PROTEIN NEGATIVE (NEGATIVE); URINE UROBILINOGEN NORMAL mg/dL (0.2-1.0)
[2017-03-22 17:17] LABS: URINE BLOOD 2+ (NEGATIVE)
[2017-03-22] MEDS: Saccharomyces Boulardi 250 mg Cap PO SCH (17:27)
[2017-03-22 17:31] LABS: LEGIONELLA AG URINE NEGATIVE (NEGATIVE)
[2017-03-22] MEDS: Heparin25000 units/250ml 1/2NS 25,000 UNITS/250 ML BAG IV PRN (17:34)
[2017-03-22 18:08] LABS: MYCOPLASMA PNEUMONIAE IGM NEGATIVE (NEGATIVE)
[2017-03-23] MEDS: Albuterol-Ipratrop 3 mg / 0.5 (3 ml) UD INH SCH ×5 (04:00→20:17)
[2017-03-23] MEDS: Piperacill/Tazo 4.5gm in Dex 4.5 GM/100 ML BAG IVPB SCH ×4 (05:40→23:54)
[2017-03-23 06:59] LABS: BASO # 0.1 K/uL (0.0-0.2); BASO % 0.6 % (0.0-2.0); EOS # 0.1 K/uL (0.0-0.7); EOS % 0.8 % (0.0-4.0); HEMOGLOBIN 11.2 g/dL (11.0-16.0); LYMPH % 21.5 % (20.0-40.0); MEAN CELL VOLUME 82.1 fL (81.0-99.0); MEAN CORPUSCULAR HEMOGLOBIN 25.9 pg (27.0-31.0); MEAN CORPUSCULAR HGB CONC 31.5 g/dL (33.0-37.0); MEAN PLATELET VOLUME 8.8 fL (7.2-11.7); MONO # 1.2 K/uL (0.0-0.8); MONO % 12.8 % (0.0-10.0); NEUT % 64.3 % (50.0-75.0); RBC 4.34 Mil/uL (3.80-5.20); RED CELL DISTRIBUTION WIDTH 16.9 % (11.5-14.5); WHITE BLOOD COUNT 9.3 K/uL (4.8-10.8)
[2017-03-23 07:11] LABS: ALBUMIN 2.8 g/dL (3.5-5.0)
[2017-03-23 07:14] LABS: ALB/GLOB RATIO 0.9 (1.0-2.1); AST/SGOT 64 U/L (14-36); GFR AFRICAN-AMERICAN > 60; GFR NON-AFRICAN AMERICAN > 60
[2017-03-23 07:15] LABS: ALT/SGPT 26 U/L (9-52); BLOOD UREA NITROGEN 8 mg/dL (7-17); CALCIUM 8.3 mg/dl (8.6-10.4); MAGNESIUM 1.8 mg/dL (1.6-2.3)
[2017-03-23] MEDS ORDERED: Potassium Chloride 20 mEq/15 ml LIQ UD PO ONE (08:00)
[2017-03-23 08:44] LABS: ARTERIAL BLOOD GAS HCO3 30.4 mmol/L (21-28); ARTERIAL BLOOD GAS HEMOGLOBIN 11.5 g/dL (11.7-17.4); ARTERIAL BLOOD GAS PCO2 49 mm/Hg (35-45); ARTERIAL BLOOD GAS PH 7.43 (7.35-7.45); ARTERIAL BLOOD GAS PO2 67 mm/Hg (80-100)
[2017-03-23] MEDS: Aspirin 325 mg EC Tablets PO SCH (09:54)
[2017-03-23] MEDS: Saccharomyces Boulardi 250 mg Cap PO SCH ×2 (09:54→17:04)
[2017-03-23] MEDS: Heparin25000 units/250ml 1/2NS 25,000 UNITS/250 ML BAG IV PRN (11:15)
--- NOTE | 2017-03-23 12:29 | CP.PCM.PN ---
Subjective - Date & Time of Evaluation Date of Evaluation: 03/23/17 Time of Evaluation: 12:26 - Subjective Subjective: Events reviewed Clinically same Mild cough no fevers, chills. No CP no clinically worsening CHF No arrythmias Objective - Vital Signs/Intake and Output Vital Signs (last 24 hours): Temp Pulse Resp BP Pulse Ox 100.1 F H 84 15 113/62 93 L 03/23/17 08:41 03/23/17 10:00 03/23/17 10:00 03/23/17 09:58 03/23/17 10:00 Intake and Output: 03/23/17 03/23/17 06:59 18:59 Intake Total 480.4 495.6 Output Total 605 325 Balance -124.6 170.6 - Medications Medications: Current Medications Albuterol/Ipratropium (Duoneb 3 Mg/0.5 Mg (3 Ml) Ud) 3 ml INH RQ4 [facility] Last Admin: 03/23/17 11:12 Dose: 3 ml Aspirin (Ecotrin) 325 mg PO DAILY [facility] Last Admin: 03/23/17 09:54 Dose: 325 mg Clonazepam (Klonopin) 1 mg PO Q12 [facility] Last Admin: 03/23/17 09:55 Dose: 1 mg Famotidine (Pepcid) 20 mg PO DAILY [facility] Last Admin: 03/23/17 09:54 Dose: 20 mg Furosemide (Lasix) 40 mg PO DAILY [facility] Last Admin: 03/23/17 09:55 Dose: 40 mg Gabapentin (Neurontin) 300 mg PO TID [facility] Last Admin: 03/23/17 09:53 Dose: 300 mg Heparin Sodium/Sodium Chloride (Heparin 21487 Units/250ml 1/2 Normal Saline) 25 ,000 units in 250 mls @ 18 mls/hr IV .[id number] PRN; Protocol PRN Reason: PROTOCOL Last Admin: 03/22/17 17:34 Dose: 10.33 units/kg/hr, 16.4 mls/hr Vancomycin/Sodium Chloride (Vancocin) 1 gm in 200 mls @ 133.333 mls/hr IVPB Q12H [facility] Stop: 03/26/17 10:01 Last Admin: 03/22/17 21:18 Dose: 133.333 mls/hr Piperacillin Sod/Tazobactam Sod (Zosyn 4.5 Gm Iv Premix) 4.5 gm in 100 mls @ 100 mls/hr IVPB Q6 [facility] Last Admin: 03/23/17 12:04 Dose: 100 mls/hr Losartan Potassium (Cozaar) 50 mg PO DAILY [facility] Last Admin: 03/23/17 09:54 Dose: 50 mg Metoprolol Tartrate (Lopressor) 50 mg PO Q12 [facility] Last Admin: 03/23/17 09:54 Dose: 50 mg Morphine Sulfate (Morphine) 2 mg IVP Q6H PRN PRN Reason: Pain, moderate (4-7) Last Admin: 03/23/17 11:55 Dose: 2 mg Nitroglycerin (Nitrostat Sl Tab) 0.4 mg SL Q5M PRN Promethazine HCl/Codeine (Phenergan/Codeine Oral Syrup) 5 ml PO Q4 PRN PRN Reason: Cough Rosuvastatin Calcium (Crestor) 20 mg PO HS [facility] Last Admin: 03/22/17 21:16 Dose: 20 mg Saccharomyces Boulardii (Florastor) 250 mg PO BID [facility] Last Admin: 03/23/17 09:54 Dose: 250 mg - Labs Labs: 03/23/17 06:51 03/23/17 06:51 PT 13.3 SECONDS (9.7-12.2) H 03/20/17 22:39 INR 1.2 03/20/17 22:39 APTT 68 SECONDS (21-34) H 03/23/17 06:51 - Constitutional Appears: Chronically Ill, Other (morbidly obese) - Eye Exam Eye Exam: EOMI, Normal appearance, PERRL - ENT Exam ENT Exam: Mucous Membranes Moist - Respiratory Exam Respiratory Exam: Rhonchi, Wheezes, NORMAL BREATHING PATTERN. absent: Rales - Cardiovascular Exam Cardiovascular Exam: REGULAR RHYTHM, +S1, +S2. absent: Gallop - GI/Abdominal Exam GI & Abdominal Exam: Soft, Normal Bowel Sounds. absent: Tenderness - Extremities Exam Extremities Exam: Full ROM, Normal Inspection. absent: Pedal Edema - Neurological Exam Neurological Exam: Alert, Awake, Oriented x3 - Psychiatric Exam Psychiatric exam: Normal Affect, Normal Mood - Skin Skin Exam: Normal Color, Warm Assessment and Plan - Assessment and Plan (Free Text) Assessment: 1. 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 SIRS/SEPSIS/PNA/UTI 4. Sacral Decub 5. Morbidly obese 6. OPHELIA ECHO done at bed side directly seen by me: Preserved LV function, no sig valve regurge, mild dilated RV with preserved RV function. Inferobasal and basal septum appear aneurysmal. Troponin: 6 > 7 > 14 > 15 Hypokalemia: replaced TELE: NSR, no arrythmia Clinically no angina, arrythmia or worsening systolic dysfunction sx's. 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 No plans for c.cath. [facility] Rx for CAD. * ASA 81 * Plavix 75 daily * Crestor * Metoprolol * Losartan * lasix * Imdur * Ranexa * * D/c Heparing GTT after 72 hours of use and change to DVT prophylaxis [facility] pulmonary Rx for OPHELIA/Obesity Cont to Rx underlying spesis/SIRS/UTI/PNA/Bronchitis/sacral decub
--- NOTE | 2017-03-23 15:04 | CP.CCUPN ---
CCU Subjective - Physician Review Events Since Last Encounter (Free Text): 03/23/17 15:01 patient seen and examined in the intensive care Case discussed with house staff in the morning rounds. 61F w/ NSTEMI, sepsis, pneumonia/UTI, old inferior infarct, sacral decub, morbid obesity, OPHELIA On BiPAP at night and now on 2 L nasal cannula saturating well Denies shortness of breath but complaining of dry cough Denies fever chills Poor appetite Patient states she lost weight 20 pounds CCU Objective - Vital Signs / Intake & Output Vital Signs (Last 4 hours): Vital Signs Temp Pulse Resp BP Pulse Ox 03/23/17 13:01 74 10 L 101/62 92 L 03/23/17 13:00 67 14 94 L 03/23/17 12:01 65 18 109/59 L 96 03/23/17 12:00 98.2 F 65 19 97 Intake and Output (Last 8hrs): Intake & Output 03/23/17 03/23/17 03/23/17 06:59 14:59 22:59 Intake Total 231.2 1094.8 Output Total 415 930 Balance -183.8 164.8 Weight 349 lb 2.24 oz Intake: IV 250 Intake, IV Amount 231.2 314.8 Right Proximal Port PICC 100 200 right hand 131.2 114.8 Oral 530 Output: Urine 315 930 Urethral (Colmenares) 315 930 Stool 100 - Physical Exam Head: Positive for: Normocephalic Pupils: Positive for: PERRL Extroacular Muscles: Positive for: EOMI Mouth: Positive for: Moist Mucous Membranes Respiratory/Chest: Positive for: Wheezes, Rhonchi. Negative for: Respiratory Distress, Accessory Muscle Use Cardiovascular: Positive for: Regular Rate and Rhythm. Negative for: Murmurs Abdomen: Positive for: Normal Bowel Sounds. Negative for: Distention Lower Extremity: Negative for: Edema Psychiatric: Positive for: Alert, Oriented x 3 - Medications Active Medications: Active Medications Generic Name Dose Route Start Last Admin Trade Name Freq PRN Reason Stop Dose Admin Albuterol/Ipratropium 3 ml 03/21/17 00:00 03/23/17 11:12 Duoneb 3 Mg/0.5 Mg (3 Ml) Ud INH 3 ml RQ4 RIK Administration Aspirin 325 mg 03/20/17 23:45 03/23/17 09:54 Ecotrin PO 325 mg DAILY RIK Administration Clonazepam 1 mg 03/20/17 23:45 03/23/17 09:55 Klonopin PO 1 mg Q12 RIK Administration Famotidine 20 mg 03/23/17 10:00 03/23/17 09:54 Pepcid PO 20 mg DAILY RIK Administration Furosemide 40 mg 03/21/17 16:45 03/23/17 09:55 Lasix PO 40 mg DAILY RIK Administration Gabapentin 300 mg 03/20/17 23:45 03/23/17 14:04 Neurontin PO 300 mg TID RIK Administration Heparin Sodium/Sodium Chloride 25,000 units in 250 mls @ 18 mls/hr 03/20/17 22 :49 03/23/17 11:15 Heparin 36644 Units/250ml 1/2 Normal Saline IV 10.33 units/kg/hr .[id number] PRN 16.4 mls/hr PROTOCOL Administration Protocol Vancomycin/Sodium Chloride 1 gm in 200 mls @ 133.333 mls/hr 03/21/17 10:00 21:18 Vancocin IVPB 03/26/17 10:01 133.333 mls/hr Q12H RIK Administration Piperacillin Sod/Tazobactam Sod 4.5 gm in 100 mls @ 100 mls/hr 03/21/17 01:00 03/23/17 12:04 Zosyn 4.5 Gm Iv Premix IVPB 100 mls/hr Q6 RIK Administration Losartan Potassium 50 mg 03/22/17 16:09 03/23/17 09:54 Cozaar PO 50 mg DAILY RIK Administration Metoprolol Tartrate 50 mg 03/22/17 22:00 03/23/17 09:54 Lopressor PO 50 mg Q12 RIK Administration Morphine Sulfate 2 mg 03/20/17 23:50 03/23/17 11:55 Morphine IVP 2 mg Q6H PRN Administration Pain, moderate (4-7) Nitroglycerin 0.4 mg 03/20/17 23:50 Nitrostat Sl Tab SL Q5M PRN Promethazine HCl/Codeine 5 ml 03/22/17 16:10 Phenergan/Codeine Oral Syrup PO Q4 PRN Cough Rosuvastatin Calcium 20 mg 03/21/17 22:00 03/22/17 21:16 Crestor PO 20 mg HS RIK Administration Saccharomyces Ashwinidii 250 mg 03/22/17 18:00 03/23/17 09:54 Florastor PO 250 mg BID RIK Administration - Patient Studies Lab Studies: Microbiology Studies 03/22/17 Unknown Urine Culture - Preliminary Urine,Catheterized No growth. 03/20/17 22:00 Blood Culture - Preliminary Blood NO GROWTH AFTER 48 HOURS 03/20/17 21:00 Blood Culture - Preliminary Blood NO GROWTH AFTER 48 HOURS 03/21/17 04:46 MRSA Culture (Admit) - Final Naris MRSA NOT DETECTED Lab Studies 03/23/17 03/23/17 03/23/17 Range/Units 08:41 06:51 06:51 WBC (4.8-10.8) K/uL RBC (3.80-5.20) Mil/uL Hgb (11.0-16.0) g/dL Hct (34.0-47.0) % MCV (81.0-99.0) fL MCH (27.0-31.0) pg MCHC (33.0-37.0) g/dL RDW (11.5-14.5) % Plt Count (130-400) K/uL MPV (7.2-11.7) fL Neut % (Auto) (50.0-75.0) % Lymph % (Auto) (20.0-40.0) % [place] % (Auto) (0.0-10.0) % Eos % (Auto) (0.0-4.0) % Baso % (Auto) (0.0-2.0) % Neut # (1.8-7.0) K/uL Lymph # (1.0-4.3) K/uL [place] # (0.0-0.8) K/uL Eos # (0.0-0.7) K/uL Baso # (0.0-0.2) K/uL APTT 68 H (21-34) SECONDS Puncture Site Rb pCO2 49 H (35-45) mm/Hg pO2 67 L (80-100) mm/Hg HCO3 30.4 H (21-28) mmol/L ABG pH 7.43 (7.35-7.45) ABG Total CO2 34.0 H (22-28) mmol/L ABG O2 Saturation 95.0 (95-98) % ABG Base Excess 7.1 H (-2.0-3.0) mmol/L ABG Hemoglobin 11.5 L (11.7-17.4) g/dL ABG Carboxyhemoglobin 1.4 (0.5-1.5) % POC ABG HHb (Measured) 4.9 (0.0-5.0) % ABG Methemoglobin 1.1 (0.0-3.0) % Ming Test Na A-a O2 Difference 86.0 mm/Hg Respiratory Index 1.3 Hgb O2 Saturation 92.7 L (95.0-98.0) % Liter Flow 3.0 FiO2 30.0 % Sodium 137 (132-148) mmol/L Potassium 3.2 L (3.6-5.2) mmol/L Chloride 97 L (98-107) mmol/L Carbon Dioxide 32 H (22-30) mmol/L Anion Gap 11 (10-20) BUN 8 (7-17) mg/dL Creatinine 0.7 (0.7-1.2) MG/DL Est GFR ( Amer) > 60 Est GFR (Non-Af Amer) > 60 Random Glucose 77 (65-105) mg/dL Calcium 8.3 L (8.6-10.4) mg/dl Phosphorus 2.2 L (2.5-4.5) mg/dL Magnesium 1.8 (1.6-2.3) mg/dL Total Bilirubin 0.6 (0.2-1.3) mg/dL AST 64 H D (14-36) U/L ALT 26 (9-52) U/L Alkaline Phosphatase 64 (38-126) U/L Total Protein 5.8 L (6.3-8.3) g/dL Albumin 2.8 L (3.5-5.0) g/dL Globulin 3.0 (2.2-3.9) gm/dL Albumin/Globulin Ratio 0.9 L (1.0-2.1) Procalcitonin (0.19-0.49) NG/ML Urine Color (YELLOW) Urine Clarity (Clear) Urine pH (5.0-8.0) Ur Specific [place] (1.003-1.030) Urine Protein (NEGATIVE) mg/dL Urine Glucose (UA) (Normal) mg/dL Urine Ketones (NEGATIVE) mg/dL Urine Blood (NEGATIVE) Urine Nitrate (NEGATIVE) Urine Bilirubin (NEGATIVE) Urine Urobilinogen (0.2-1.0) mg/dL Ur Leukocyte Esterase (Negative) Mendoza/uL Urine WBC (Auto) (0-5) /hpf Urine RBC (Auto) (0-3) /hpf Ur Squamous Epith Cells (0-5) /hpf Urine Bacteria (<OCC) Vancomycin Trough (5.0-10.0) ug/mL C. difficile Ag & Toxin (NEGATIVE) Ur L.pneumophila Ag (NEGATIVE) Mycoplasma pneumon IgM (NEGATIVE) 03/23/17 03/23/17 03/23/17 Range/Units 06:51 06:51 06:51 WBC 9.3 (4.8-10.8) K/uL RBC 4.34 (3.80-5.20) Mil/uL Hgb 11.2 (11.0-16.0) g/dL Hct 35.6 (34.0-47.0) % MCV 82.1 (81.0-99.0) fL MCH 25.9 L (27.0-31.0) pg MCHC 31.5 L (33.0-37.0) g/dL RDW 16.9 H (11.5-14.5) % Plt Count 242 (130-400) K/uL MPV 8.8 (7.2-11.7) fL Neut % (Auto) 64.3 (50.0-75.0) % Lymph % (Auto) 21.5 (20.0-40.0) % [place] % (Auto) 12.8 H (0.0-10.0) % Eos % (Auto) 0.8 (0.0-4.0) % Baso % (Auto) 0.6 (0.0-2.0) % Neut # 6.0 (1.8-7.0) K/uL Lymph # 2.0 (1.0-4.3) K/uL [place] # 1.2 H (0.0-0.8) K/uL Eos # 0.1 (0.0-0.7) K/uL Baso # 0.1 (0.0-0.2) K/uL APTT (21-34) SECONDS Puncture Site pCO2 (35-45) mm/Hg pO2 (80-100) mm/Hg HCO3 (21-28) mmol/L ABG pH (7.35-7.45) ABG Total CO2 (22-28) mmol/L ABG O2 Saturation (95-98) % ABG Base Excess (-2.0-3.0) mmol/L ABG Hemoglobin (11.7-17.4) g/dL ABG Carboxyhemoglobin (0.5-1.5) % POC ABG HHb (Measured) (0.0-5.0) % ABG Methemoglobin (0.0-3.0) % Ming Test A-a O2 Difference mm/Hg Respiratory Index Hgb O2 Saturation (95.0-98.0) % Liter Flow FiO2 % Sodium (132-148) mmol/L Potassium (3.6-5.2) mmol/L Chloride (98-107) mmol/L Carbon Dioxide (22-30) mmol/L Anion Gap (10-20) BUN (7-17) mg/dL Creatinine (0.7-1.2) MG/DL Est GFR ( Amer) Est GFR (Non-Af Amer) Random Glucose (65-105) mg/dL Calcium (8.6-10.4) mg/dl Phosphorus (2.5-4.5) mg/dL Magnesium (1.6-2.3) mg/dL Total Bilirubin (0.2-1.3) mg/dL AST (14-36) U/L ALT (9-52) U/L Alkaline Phosphatase (38-126) U/L Total Protein (6.3-8.3) g/dL Albumin (3.5-5.0) g/dL Globulin (2.2-3.9) gm/dL Albumin/Globulin Ratio (1.0-2.1) Procalcitonin 0.29 (0.19-0.49) NG/ML Urine Color (YELLOW) Urine Clarity (Clear) Urine pH (5.0-8.0) Ur Specific [place] (1.003-1.030) Urine Protein (NEGATIVE) mg/dL Urine Glucose (UA) (Normal) mg/dL Urine Ketones (NEGATIVE) mg/dL Urine Blood (NEGATIVE) Urine Nitrate (NEGATIVE) Urine Bilirubin (NEGATIVE) Urine Urobilinogen (0.2-1.0) mg/dL Ur Leukocyte Esterase (Negative) Mendoza/uL Urine WBC (Auto) (0-5) /hpf Urine RBC (Auto) (0-3) /hpf Ur Squamous Epith Cells (0-5) /hpf Urine Bacteria (<OCC) Vancomycin Trough 21.7 H (5.0-10.0) ug/mL C. difficile Ag & Toxin (NEGATIVE) Ur L.pneumophila Ag (NEGATIVE) Mycoplasma pneumon IgM (NEGATIVE) 03/22/17 03/22/17 03/22/17 Range/Units 17:00 16:58 16:58 WBC (4.8-10.8) K/uL RBC (3.80-5.20) Mil/uL Hgb (11.0-16.0) g/dL Hct (34.0-47.0) % MCV (81.0-99.0) fL MCH (27.0-31.0) pg MCHC (33.0-37.0) g/dL RDW (11.5-14.5) % Plt Count (130-400) K/uL MPV (7.2-11.7) fL Neut % (Auto) (50.0-75.0) % Lymph % (Auto) (20.0-40.0) % [place] % (Auto) (0.0-10.0) % Eos % (Auto) (0.0-4.0) % Baso % (Auto) (0.0-2.0) % Neut # (1.8-7.0) K/uL Lymph # (1.0-4.3) K/uL [place] # (0.0-0.8) K/uL Eos # (0.0-0.7) K/uL Baso # (0.0-0.2) K/uL APTT 64 H D (21-34) SECONDS Puncture Site pCO2 (35-45) mm/Hg pO2 (80-100) mm/Hg HCO3 (21-28) mmol/L ABG pH (7.35-7.45) ABG Total CO2 (22-28) mmol/L ABG O2 Saturation (95-98) % ABG Base Excess (-2.0-3.0) mmol/L ABG Hemoglobin (11.7-17.4) g/dL ABG Carboxyhemoglobin (0.5-1.5) % POC ABG HHb (Measured) (0.0-5.0) % ABG Methemoglobin (0.0-3.0) % Ming Test A-a O2 Difference mm/Hg Respiratory Index Hgb O2 Saturation (95.0-98.0) % Liter Flow FiO2 % Sodium 140 (132-148) mmol/L Potassium 3.6 (3.6-5.2) mmol/L Chloride 101 (98-107) mmol/L Carbon Dioxide 32 H (22-30) mmol/L Anion Gap 11 (10-20) BUN 7 (7-17) mg/dL Creatinine 0.7 (0.7-1.2) MG/DL Est GFR ( Amer) > 60 Est GFR (Non-Af Amer) > 60 Random Glucose 107 H (65-105) mg/dL Calcium 8.2 L (8.6-10.4) mg/dl Phosphorus (2.5-4.5) mg/dL Magnesium (1.6-2.3) mg/dL Total Bilirubin (0.2-1.3) mg/dL AST (14-36) U/L ALT (9-52) U/L Alkaline Phosphatase (38-126) U/L Total Protein (6.3-8.3) g/dL Albumin (3.5-5.0) g/dL Globulin (2.2-3.9) gm/dL Albumin/Globulin Ratio (1.0-2.1) Procalcitonin (0.19-0.49) NG/ML Urine Color Straw (YELLOW) Urine Clarity Clear (Clear) Urine pH 6.0 (5.0-8.0) Ur Specific [place] 1.008 (1.003-1.030) Urine Protein Negative (NEGATIVE) mg/dL Urine Glucose (UA) Normal (Normal) mg/dL Urine Ketones Negative (NEGATIVE) mg/dL Urine Blood 2+ H (NEGATIVE) Urine Nitrate Negative (NEGATIVE) Urine Bilirubin Negative (NEGATIVE) Urine Urobilinogen Normal (0.2-1.0) mg/dL Ur Leukocyte Esterase Neg (Negative) Mendoza/uL Urine WBC (Auto) 3 (0-5) /hpf Urine RBC (Auto) 12 H (0-3) /hpf Ur Squamous Epith Cells < 1 (0-5) /hpf Urine Bacteria Rare (<OCC) Vancomycin Trough (5.0-10.0) ug/mL C. difficile Ag & Toxin (NEGATIVE) Ur L.pneumophila Ag (NEGATIVE) Mycoplasma pneumon IgM (NEGATIVE) 03/22/17 03/22/17 Range/Units 16:58 15:05 WBC (4.8-10.8) K/uL RBC (3.80-5.20) Mil/uL Hgb (11.0-16.0) g/dL Hct (34.0-47.0) % MCV (81.0-99.0) fL MCH (27.0-31.0) pg MCHC (33.0-37.0) g/dL RDW (11.5-14.5) % Plt Count (130-400) K/uL MPV (7.2-11.7) fL Neut % (Auto) (50.0-75.0) % Lymph % (Auto) (20.0-40.0) % [place] % (Auto) (0.0-10.0) % Eos % (Auto) (0.0-4.0) % Baso % (Auto) (0.0-2.0) % Neut # (1.8-7.0) K/uL Lymph # (1.0-4.3) K/uL [place] # (0.0-0.8) K/uL Eos # (0.0-0.7) K/uL Baso # (0.0-0.2) K/uL APTT (21-34) SECONDS Puncture Site pCO2 (35-45) mm/Hg pO2 (80-100) mm/Hg HCO3 (21-28) mmol/L ABG pH (7.35-7.45) ABG Total CO2 (22-28) mmol/L ABG O2 Saturation (95-98) % ABG Base Excess (-2.0-3.0) mmol/L ABG Hemoglobin (11.7-17.4) g/dL ABG Carboxyhemoglobin (0.5-1.5) % POC ABG HHb (Measured) (0.0-5.0) % ABG Methemoglobin (0.0-3.0) % Ming Test A-a O2 Difference mm/Hg Respiratory Index Hgb O2 Saturation (95.0-98.0) % Liter Flow FiO2 % Sodium (132-148) mmol/L Potassium (3.6-5.2) mmol/L Chloride (98-107) mmol/L Carbon Dioxide (22-30) mmol/L Anion Gap (10-20) BUN (7-17) mg/dL Creatinine (0.7-1.2) MG/DL Est GFR ( Amer) Est GFR (Non-Af Amer) Random Glucose (65-105) mg/dL Calcium (8.6-10.4) mg/dl Phosphorus (2.5-4.5) mg/dL Magnesium (1.6-2.3) mg/dL Total Bilirubin (0.2-1.3) mg/dL AST (14-36) U/L ALT (9-52) U/L Alkaline Phosphatase (38-126) U/L Total Protein (6.3-8.3) g/dL Albumin (3.5-5.0) g/dL Globulin (2.2-3.9) gm/dL Albumin/Globulin Ratio (1.0-2.1) Procalcitonin (0.19-0.49) NG/ML Urine Color (YELLOW) Urine Clarity (Clear) Urine pH (5.0-8.0) Ur Specific [place] (1.003-1.030) Urine Protein (NEGATIVE) mg/dL Urine Glucose (UA) (Normal) mg/dL Urine Ketones (NEGATIVE) mg/dL Urine Blood (NEGATIVE) Urine Nitrate (NEGATIVE) Urine Bilirubin (NEGATIVE) Urine Urobilinogen (0.2-1.0) mg/dL Ur Leukocyte Esterase (Negative) Mendoza/uL Urine WBC (Auto) (0-5) /hpf Urine RBC (Auto) (0-3) /hpf Ur Squamous Epith Cells (0-5) /hpf Urine Bacteria (<OCC) Vancomycin Trough (5.0-10.0) ug/mL C. difficile Ag & Toxin Negative (NEGATIVE) Ur L.pneumophila Ag Negative (NEGATIVE) Mycoplasma pneumon IgM Negative (NEGATIVE) Laboratory Results - last 24 hr 03/22/17 03/22/17 03/22/17 15:05 16:58 16:58 WBC RBC Hgb Hct MCV MCH MCHC RDW Plt Count MPV Neut % (Auto) Lymph % (Auto) [place] % (Auto) Eos % (Auto) Baso % (Auto) Neut # Lymph # [place] # Eos # Baso # APTT Puncture Site pCO2 pO2 HCO3 ABG pH ABG Total CO2 ABG O2 Saturation ABG Base Excess ABG Hemoglobin ABG Carboxyhemoglobin POC ABG HHb (Measured) ABG Methemoglobin Ming Test A-a O2 Difference Respiratory Index Hgb O2 Saturation Liter Flow FiO2 Sodium 140 Potassium 3.6 Chloride 101 Carbon Dioxide 32 H Anion Gap 11 BUN 7 Creatinine 0.7 Est GFR ( Amer) > 60 Est GFR (Non-Af Amer) > 60 Random Glucose 107 H Calcium 8.2 L Phosphorus Magnesium Total Bilirubin AST ALT Alkaline Phosphatase Total Protein Albumin Globulin Albumin/Globulin Ratio Procalcitonin Urine Color Urine Clarity Urine pH Ur Specific [place] Urine Protein Urine Glucose (UA) Urine Ketones Urine Blood Urine Nitrate Urine Bilirubin Urine Urobilinogen Ur Leukocyte Esterase Urine WBC (Auto) Urine RBC (Auto) Ur Squamous Epith Cells Urine Bacteria Vancomycin Trough C. difficile Ag & Toxin Negative Ur L.pneumophila Ag Negative Mycoplasma pneumon IgM Negative 03/22/17 03/22/17 03/23/17 16:58 17:00 06:51 WBC RBC Hgb Hct MCV MCH MCHC RDW Plt Count MPV Neut % (Auto) Lymph % (Auto) [place] % (Auto) Eos % (Auto) Baso % (Auto) Neut # Lymph # [place] # Eos # Baso # APTT 64 H D Puncture Site pCO2 pO2 HCO3 ABG pH ABG Total CO2 ABG O2 Saturation ABG Base Excess ABG Hemoglobin ABG Carboxyhemoglobin POC ABG HHb (Measured) ABG Methemoglobin Ming Test A-a O2 Difference Respiratory Index Hgb O2 Saturation Liter Flow FiO2 Sodium Potassium Chloride Carbon Dioxide Anion Gap BUN Creatinine Est GFR ( Amer) Est GFR (Non-Af Amer) Random Glucose Calcium Phosphorus Magnesium Total Bilirubin AST ALT Alkaline Phosphatase Total Protein Albumin Globulin Albumin/Globulin Ratio Procalcitonin 0.29 Urine Color Straw Urine Clarity Clear Urine pH 6.0 Ur Specific [place] 1.008 Urine Protein Negative Urine Glucose (UA) Normal Urine Ketones Negative Urine Blood 2+ H Urine Nitrate Negative Urine Bilirubin Negative Urine Urobilinogen Normal Ur Leukocyte Esterase Neg Urine WBC (Auto) 3 Urine RBC (Auto) 12 H Ur Squamous Epith Cells < 1 Urine Bacteria Rare Vancomycin Trough C. difficile Ag & Toxin Ur L.pneumophila Ag Mycoplasma pneumon IgM 03/23/17 03/23/17 03/23/17 06:51 06:51 06:51 WBC 9.3 RBC 4.34 Hgb 11.2 Hct 35.6 MCV 82.1 MCH 25.9 L MCHC 31.5 L RDW 16.9 H Plt Count 242 MPV 8.8 Neut % (Auto) 64.3 Lymph % (Auto) 21.5 [place] % (Auto) 12.8 H Eos % (Auto) 0.8 Baso % (Auto) 0.6 Neut # 6.0 Lymph # 2.0 [place] # 1.2 H Eos # 0.1 Baso # 0.1 APTT Puncture Site pCO2 pO2 HCO3 ABG pH ABG Total CO2 ABG O2 Saturation ABG Base Excess ABG Hemoglobin ABG Carboxyhemoglobin POC ABG HHb (Measured) ABG Methemoglobin Ming Test A-a O2 Difference Respiratory Index Hgb O2 Saturation Liter Flow FiO2 Sodium 137 Potassium 3.2 L Chloride 97 L Carbon Dioxide 32 H Anion Gap 11 BUN 8 Creatinine 0.7 Est GFR ( Amer) > 60 Est GFR (Non-Af Amer) > 60 Random Glucose 77 Calcium 8.3 L Phosphorus 2.2 L Magnesium 1.8 Total Bilirubin 0.6 AST 64 H D ALT 26 Alkaline Phosphatase 64 Total Protein 5.8 L Albumin 2.8 L Globulin 3.0 Albumin/Globulin Ratio 0.9 L Procalcitonin Urine Color Urine Clarity Urine pH Ur Specific [place] Urine Protein Urine Glucose (UA) Urine Ketones Urine Blood Urine Nitrate Urine Bilirubin Urine Urobilinogen Ur Leukocyte Esterase Urine WBC (Auto) Urine RBC (Auto) Ur Squamous Epith Cells Urine Bacteria Vancomycin Trough 21.7 H C. difficile Ag & Toxin Ur L.pneumophila Ag Mycoplasma pneumon IgM 03/23/17 03/23/17 06:51 08:41 WBC RBC Hgb Hct MCV MCH MCHC RDW Plt Count MPV Neut % (Auto) Lymph % (Auto) [place] % (Auto) Eos % (Auto) Baso % (Auto) Neut # Lymph # [place] # Eos # Baso # APTT 68 H Puncture Site Rb pCO2 49 H pO2 67 L HCO3 30.4 H ABG pH 7.43 ABG Total CO2 34.0 H ABG O2 Saturation 95.0 ABG Base Excess 7.1 H ABG Hemoglobin 11.5 L ABG Carboxyhemoglobin 1.4 POC ABG HHb (Measured) 4.9 ABG Methemoglobin 1.1 Ming Test Na A-a O2 Difference 86.0 Respiratory Index 1.3 Hgb O2 Saturation 92.7 L Liter Flow 3.0 FiO2 30.0 Sodium Potassium Chloride Carbon Dioxide Anion Gap BUN Creatinine Est GFR ( Amer) Est GFR (Non-Af Amer) Random Glucose Calcium Phosphorus Magnesium Total Bilirubin AST ALT Alkaline Phosphatase Total Protein Albumin Globulin Albumin/Globulin Ratio Procalcitonin Urine Color Urine Clarity Urine pH Ur Specific [place] Urine Protein Urine Glucose (UA) Urine Ketones Urine Blood Urine Nitrate Urine Bilirubin Urine Urobilinogen Ur Leukocyte Esterase Urine WBC (Auto) Urine RBC (Auto) Ur Squamous Epith Cells Urine Bacteria Vancomycin Trough C. difficile Ag & Toxin Ur L.pneumophila Ag Mycoplasma pneumon IgM Review of Systems - Review of Systems All systems: reviewed and no additional remarkable complaints except ( Complaining of cough) Critical Care Progress Note - Nutrition Nutrition: Nutrition Category Date Time Status Heart Healthy Diet [DIET] Diets 03/21/17 Breakfast Active Assessment/Plan (1) Non-STEMI (non-ST elevated myocardial infarction) Current Visit: Yes Status: Acute Comment: seen by cardiology and the plan is medical management Discontinue heparin Continue present treatment and add RENEXA, and imdur (2) SIRS (systemic inflammatory response syndrome) Current Visit: Yes Status: Acute Comment: CAT scan of the chest consistent with pneumonia/atelectasis Continue antibiotics and followup culture and senst (3) COPD (chronic obstructive pulmonary disease) Current Visit: Yes Status: Chronic Comment: Continue neb treatment patient with long historyand weight loss Consider PET scan, a repeat CAT scan of the chest after 3 months (4) OPHELIA (obstructive sleep apnea) Current Visit: Yes Status: Chronic Comment: obstructive sleep apnea versus obesity hypoventilation syndrome BiPAP at night
[2017-03-23] MEDS ORDERED: Morphine 4 MG/ML VIAL IV SCH (16:00)
[2017-03-23] MEDS: Morphine 4 MG/ML VIAL IV PRN (16:56)
--- NOTE | 2017-03-23 22:05 | CP.PCM.PN ---
Subjective - Date & Time of Evaluation Date of Evaluation: 03/23/17 Time of Evaluation: 13:00 - Subjective Subjective: Medical attending note: Follow-up: Non-stemi, Old Infarct, SIRS, history of COPD, history of OPHELIA, History of spinal stenosis, Morbid obesity Patient seen and examined at bedside. Patient reports she is starting to feel better. Objective - Vital Signs/Intake and Output Vital Signs (last 24 hours): Temp Pulse Resp BP Pulse Ox 98.5 F 68 24 111/53 L 94 L 03/23/17 16:00 03/23/17 21:25 03/23/17 21:25 03/23/17 21:25 03/23/17 21:25 Intake and Output: 03/23/17 03/24/17 18:59 06:59 Intake Total 1376.8 32.8 Output Total 1640 650 Balance -263.2 -617.2 - Medications Medications: Current Medications Albuterol/Ipratropium (Duoneb 3 Mg/0.5 Mg (3 Ml) Ud) 3 ml INH RQ4 [facility] Last Admin: 03/23/17 20:17 Dose: 3 ml Aspirin (Ecotrin) 325 mg PO DAILY [facility] Last Admin: 03/23/17 09:54 Dose: 325 mg Clonazepam (Klonopin) 1 mg PO Q12 [facility] Last Admin: 03/23/17 21:23 Dose: 1 mg Famotidine (Pepcid) 20 mg PO DAILY [facility] Last Admin: 03/23/17 09:54 Dose: 20 mg Furosemide (Lasix) 40 mg PO DAILY [facility] Last Admin: 03/23/17 09:55 Dose: 40 mg Gabapentin (Neurontin) 300 mg PO TID [facility] Last Admin: 03/23/17 17:04 Dose: 300 mg Heparin Sodium (Porcine) (Heparin) 5,000 units SC Q8 [facility] Vancomycin/Sodium Chloride (Vancocin) 1 gm in 200 mls @ 133.333 mls/hr IVPB Q12H [facility] Stop: 03/26/17 10:01 Last Admin: 03/22/17 21:18 Dose: 133.333 mls/hr Piperacillin Sod/Tazobactam Sod (Zosyn 4.5 Gm Iv Premix) 4.5 gm in 100 mls @ 100 mls/hr IVPB Q6 [facility] Last Admin: 03/23/17 17:05 Dose: 100 mls/hr Losartan Potassium (Cozaar) 50 mg PO DAILY [facility] Last Admin: 03/23/17 09:54 Dose: 50 mg Metoprolol Tartrate (Lopressor) 50 mg PO Q12 [facility] Last Admin: 03/23/17 21:23 Dose: 50 mg Morphine Sulfate (Morphine) 2 mg IVP Q6H PRN PRN Reason: Pain, moderate (4-7) Last Admin: 03/23/17 11:55 Dose: 2 mg Morphine Sulfate (Morphine) 4 mg IV Q4H PRN PRN Reason: Pain, moderate (4-7) Last Admin: 03/23/17 16:56 Dose: 4 mg Nitroglycerin (Nitrostat Sl Tab) 0.4 mg SL Q5M PRN Promethazine HCl/Codeine (Phenergan/Codeine Oral Syrup) 5 ml PO Q4 PRN PRN Reason: Cough Rosuvastatin Calcium (Crestor) 20 mg PO HS [facility] Last Admin: 03/23/17 21:23 Dose: 20 mg Saccharomyces Boulardii (Florastor) 250 mg PO BID [facility] Last Admin: 03/23/17 17:04 Dose: 250 mg - Labs Labs: 03/23/17 06:51 03/23/17 06:51 PT 13.3 SECONDS (9.7-12.2) H 03/20/17 22:39 INR 1.2 03/20/17 22:39 APTT 68 SECONDS (21-34) H 03/23/17 06:51 - Constitutional Appears: Non-toxic, No Acute Distress - Head Exam Head Exam: NORMAL INSPECTION Additional comments: morbidly obese - Eye Exam Eye Exam: EOMI - ENT Exam ENT Exam: Mucous Membranes Moist - Respiratory Exam Respiratory Exam: Rales, Rhonchi, NORMAL BREATHING PATTERN - Cardiovascular Exam Cardiovascular Exam: RRR, +S1, +S2 - GI/Abdominal Exam GI & Abdominal Exam: Soft, Normal Bowel Sounds Additional comments: morbidly obese, no rebound, no guarding - Extremities Exam Extremities Exam: Normal Capillary Refill - Neurological Exam Neurological Exam: Alert, Awake, Oriented x3 - Skin Skin Exam: Dry, Intact, Normal Color, Warm Assessment and Plan (1) Non-STEMI (non-ST elevated myocardial infarction) Status: Acute (2) Morbidly obese Status: Chronic (3) SIRS (systemic inflammatory response syndrome) Status: Acute (4) HTN (hypertension) Status: Chronic (5) OPHELIA (obstructive sleep apnea) Status: Chronic (6) COPD (chronic obstructive pulmonary disease) Status: Chronic (7) Spinal stenosis Status: Chronic (8) Prophylactic measure Status: Acute - Assessment and Plan (Free Text) Assessment: (1) Non-STEMI (non-ST elevated myocardial infarction) History of prior myocardial infarction Assessment & Plan: Cardiology (Dr. David) on board-->help appreciated Per cardiology note, bedside ECHO (03/22/17)--> Preserved LV function, no sig valve regurge, mild dilated RV with preserved RV function. Inferobasal and basal septum appear aneurysmal. Troponin increasing Hypokalemia: replaced Clinically no angina, arrythmia or worsening systolic dysfunction sx's. 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 No plans for c.cath. [facility] Rx for CAD. Per cardiology, * ASA 81 mg PO daily * Plavix 75mg PO daily * Crestor 20mg PO qHS * Metoprolol 50mg PO BID (Hold SBP<100 and HR<60) * Losartan 50mg PO daily (Hold SBP<100) * Lasix 40mg PO daily (Hold SBP<100) * Ranexa start for tomorrow * Heparin drip d/c today-->heparin dvt ppx tomorrow * [facility] Rx for OPHELIA/Obesity Pulmonary (Dr. Quiñones) on board-->help appreciated; aware of the consult, covering the ICU Status: Acute (2) Morbidly obese Status: Chronic Patient reports she has had unintentional weight loss over the past year (3) SIRS (systemic inflammatory response syndrome) Assessment & Plan: White count has normalized Chest xray (03/20/17): no acute findings CT Chest (03/20/17): no ct evidence of acute pulmonary embolism, aortic aneurysm, or aortic dissection. [place] airspace disease in the posterio basal segment of the left lower lobe may represent subsegmental atelectasis however pneumonia cannot be excluded. Patient has moderate left hilar lymphadenopathy of uncertain etiology Chest Xray (03/22/17) New right PICC catheter terminates at level of cavoatrial junction. Mild congestive change. Zosyn 4.5 IV Q 6hours (Active since 03/21/17) Vancomycin 1 gram IVQ 12hours (active since 03/21/17) held today given elevated trough Florastor 250mg PO bid Blood culture (03/20/17): no growth after 48hours X2 MRSA (03/21/17) not detected Urine culture: no growth Order strep pneumoniae, legionella, and mycoplasma IGM Tmax: Low grade fever: 99.7F, White count downtrending sacral wound: turn q 2hours, and wound care Status: Acute (4) HTN (hypertension) Assessment & Plan: * Metoprolol 50mg PO BID (Hold SBP<100 and HR<60) * Losartan 50mg PO daily (Hold SBP<100) * Lasix 40mg PO daily (Hold SBP<100) * Start Ranexa 500mg PO bid Status: Chronic (5) OPHELIA (obstructive sleep apnea) Status: Chronic (6) COPD (chronic obstructive pulmonary disease) Status: Chronic (7) History of Spinal stenosis -->patient indicated during exam Status: Chronic (8) Prophylactic measure Assessment & Plan: d/c Heparin drip for 72 hours per cardiology-->then can be transitioned to DVT ppx tomorrow GI ppx: Pepcid 20mg PO daily Wound care TurnQ 2hours Aspirin 81mg PO daily PT/OT eval
[2017-03-24] MEDS: Albuterol-Ipratrop 3 mg / 0.5 (3 ml) UD INH SCH ×6 (00:11→19:46)
[2017-03-24] MEDS: Morphine 4 MG/ML VIAL IV PRN ×2 (05:50→11:00)
[2017-03-24] MEDS: Piperacill/Tazo 4.5gm in Dex 4.5 GM/100 ML BAG IVPB SCH ×4 (06:02→23:01)
[2017-03-24 06:35] LABS: BASO # 0.1 K/uL (0.0-0.2); BASO % 0.9 % (0.0-2.0); EOS # 0.4 K/uL (0.0-0.7); EOS % 4.8 % (0.0-4.0); HEMOGLOBIN 11.2 g/dL (11.0-16.0); LYMPH # 2.1 K/uL (1.0-4.3); LYMPH % 24.5 % (20.0-40.0); MEAN CELL VOLUME 82.7 fL (81.0-99.0); MEAN CORPUSCULAR HEMOGLOBIN 25.8 pg (27.0-31.0); MEAN CORPUSCULAR HGB CONC 31.1 g/dL (33.0-37.0); MEAN PLATELET VOLUME 8.9 fL (7.2-11.7); MONO % 11.6 % (0.0-10.0); NEUT # 4.9 K/uL (1.8-7.0); NEUT % 58.2 % (50.0-75.0); NRBC % 0.1 % (0.0-2.0); RBC 4.35 Mil/uL (3.80-5.20); RED CELL DISTRIBUTION WIDTH 16.9 % (11.5-14.5); WHITE BLOOD COUNT 8.4 K/uL (4.8-10.8)
--- NOTE | 2017-03-24 06:36 | CP.CCUPN ---
<NghiaDemetra KamarRenae - Last Filed: 03/24/17 10:00> CCU Subjective - Physician Review Events Since Last Encounter (Free Text): 03/24/17 08:47 Patient examined at bedside in the AM. Patient states she was able to sleep. Patient states she has shortness of breath with prolonged speaking. Patient states she is coughing but is not able to cough up the phlegm. Patient states she did have some nausea. Patient denies fever, chest pain, palpations, headache, or vomiting. CCU Objective - Vital Signs / Intake & Output Vital Signs (Last 4 hours): Vital Signs Pulse Resp BP Pulse Ox 03/24/17 05:04 73 17 120/54 L 03/24/17 05:00 71 16 95 03/24/17 04:01 67 25 H 97/55 L 96 03/24/17 04:00 66 20 98 03/24/17 03:02 66 23 110/49 L 96 03/24/17 03:00 68 23 95 Intake and Output (Last 8hrs): Intake & Output 03/23/17 03/23/17 03/24/17 14:59 22:59 06:59 Intake Total 1111.2 298.4 100 Output Total 930 1500 495 Balance 181.2 -1201.6 -395 Weight 350 lb Intake: IV 250 Intake, IV Amount 331.2 98.4 100 Right Proximal Port PICC 200 100 right hand 131.2 98.4 Oral 530 200 Output: Urine 930 1350 495 Urethral (Colmenares) 930 1350 495 Stool 150 - Physical Exam Head: Positive for: Normocephalic Pupils: Positive for: PERRL Extroacular Muscles: Positive for: EOMI Mouth: Positive for: Moist Mucous Membranes Respiratory/Chest: Positive for: Wheezes, Rhonchi. Negative for: Respiratory Distress, Accessory Muscle Use Cardiovascular: Positive for: Regular Rate and Rhythm, Normal S1, S2. Negative for: Murmurs Abdomen: Positive for: Normal Bowel Sounds. Negative for: Tenderness, Distention, Guarding Lower Extremity: Negative for: Edema, CALF TENDERNESS Neurological: Positive for: Speech Normal Skin: Positive for: Warm, Normal Color Psychiatric: Positive for: Alert, Oriented x 3 - Medications Active Medications: Active Medications Generic Name Dose Route Start Last Admin Trade Name Freq PRN Reason Stop Dose Admin Albuterol/Ipratropium 3 ml 07/02/17 00:00 03/24/17 03:49 Duoneb 3 Mg/0.5 Mg (3 Ml) Ud INH Not Given RQ4 [facility] Aspirin 325 mg 03/20/17 23:45 03/23/17 09:54 Ecotrin PO 325 mg DAILY RIK Administration Clonazepam 1 mg 03/20/17 23:45 03/23/17 21:23 Klonopin PO 1 mg Q12 RIK Administration Famotidine 20 mg 03/23/17 10:00 03/23/17 09:54 Pepcid PO 20 mg DAILY RIK Administration Furosemide 40 mg 03/21/17 16:45 03/23/17 09:55 Lasix PO 40 mg DAILY RIK Administration Gabapentin 300 mg 03/20/17 23:45 03/23/17 17:04 Neurontin PO 300 mg TID RIK Administration Heparin Sodium (Porcine) 5,000 units 03/24/17 06:00 03/24/17 05:49 Heparin SC 5,000 units Q8 RIK Administration Vancomycin/Sodium Chloride 1 gm in 200 mls @ 133.333 mls/hr 03/21/17 10:00 21:18 Vancocin IVPB 03/26/17 10:01 133.333 mls/hr Q12H RIK Administration Piperacillin Sod/Tazobactam Sod 4.5 gm in 100 mls @ 100 mls/hr 03/21/17 01:00 03/24/17 06:02 Zosyn 4.5 Gm Iv Premix IVPB 100 mls/hr Q6 RIK Administration Losartan Potassium 50 mg 03/22/17 16:09 03/23/17 09:54 Cozaar PO 50 mg DAILY RIK Administration Metoprolol Tartrate 50 mg 03/22/17 22:00 03/23/17 21:23 Lopressor PO 50 mg Q12 RIK Administration Morphine Sulfate 2 mg 03/20/17 23:50 03/24/17 00:05 Morphine IVP 2 mg Q6H PRN Administration Pain, moderate (4-7) Morphine Sulfate 4 mg 03/23/17 15:47 03/24/17 05:50 Morphine IV 4 mg Q4H PRN Administration Pain, moderate (4-7) Nitroglycerin 0.4 mg 03/20/17 23:50 Nitrostat Sl Tab SL Q5M PRN Promethazine HCl/Codeine 5 ml 03/22/17 16:10 Phenergan/Codeine Oral Syrup PO Q4 PRN Cough Ranolazine 500 mg 03/24/17 10:00 Ranexa PO BID RIK Rosuvastatin Calcium 20 mg 03/21/17 22:00 03/23/17 21:23 Crestor PO 20 mg HS RIK Administration Saccharomyces Boulardii 250 mg 03/22/17 18:00 03/23/17 17:04 Florastor PO 250 mg BID RIK Administration - Patient Studies Lab Studies: Microbiology Studies 03/20/17 22:00 Blood Culture - Preliminary Blood NO GROWTH AFTER 3 DAYS 03/20/17 21:00 Blood Culture - Preliminary Blood NO GROWTH AFTER 3 DAYS 03/22/17 Unknown Urine Culture - Preliminary Urine,Catheterized No growth. Lab Studies 03/23/17 03/23/17 03/23/17 Range/Units 08:41 06:51 06:51 WBC (4.8-10.8) K/uL RBC (3.80-5.20) Mil/uL Hgb (11.0-16.0) g/dL Hct (34.0-47.0) % MCV (81.0-99.0) fL MCH (27.0-31.0) pg MCHC (33.0-37.0) g/dL RDW (11.5-14.5) % Plt Count (130-400) K/uL MPV (7.2-11.7) fL Neut % (Auto) (50.0-75.0) % Lymph % (Auto) (20.0-40.0) % Ferry % (Auto) (0.0-10.0) % Eos % (Auto) (0.0-4.0) % Baso % (Auto) (0.0-2.0) % Neut # (1.8-7.0) K/uL Lymph # (1.0-4.3) K/uL Ferry # (0.0-0.8) K/uL Eos # (0.0-0.7) K/uL Baso # (0.0-0.2) K/uL APTT 68 H (21-34) SECONDS Puncture Site Rb pCO2 49 H (35-45) mm/Hg pO2 67 L (80-100) mm/Hg HCO3 30.4 H (21-28) mmol/L ABG pH 7.43 (7.35-7.45) ABG Total CO2 34.0 H (22-28) mmol/L ABG O2 Saturation 95.0 (95-98) % ABG Base Excess 7.1 H (-2.0-3.0) mmol/L ABG Hemoglobin 11.5 L (11.7-17.4) g/dL ABG Carboxyhemoglobin 1.4 (0.5-1.5) % POC ABG HHb (Measured) 4.9 (0.0-5.0) % ABG Methemoglobin 1.1 (0.0-3.0) % Ming Test Na A-a O2 Difference 86.0 mm/Hg Respiratory Index 1.3 Hgb O2 Saturation 92.7 L (95.0-98.0) % Liter Flow 3.0 FiO2 30.0 % Sodium 137 (132-148) mmol/L Potassium 3.2 L (3.6-5.2) mmol/L Chloride 97 L (98-107) mmol/L Carbon Dioxide 32 H (22-30) mmol/L Anion Gap 11 (10-20) BUN 8 (7-17) mg/dL Creatinine 0.7 (0.7-1.2) MG/DL Est GFR ( Amer) > 60 Est GFR (Non-Af Amer) > 60 Random Glucose 77 (65-105) mg/dL Calcium 8.3 L (8.6-10.4) mg/dl Phosphorus 2.2 L (2.5-4.5) mg/dL Magnesium 1.8 (1.6-2.3) mg/dL Total Bilirubin 0.6 (0.2-1.3) mg/dL AST 64 H D (14-36) U/L ALT 26 (9-52) U/L Alkaline Phosphatase 64 (38-126) U/L Total Protein 5.8 L (6.3-8.3) g/dL Albumin 2.8 L (3.5-5.0) g/dL Globulin 3.0 (2.2-3.9) gm/dL Albumin/Globulin Ratio 0.9 L (1.0-2.1) Procalcitonin (0.19-0.49) NG/ML Vancomycin Trough (5.0-10.0) ug/mL 03/23/17 03/23/17 03/23/17 Range/Units 06:51 06:51 06:51 WBC 9.3 (4.8-10.8) K/uL RBC 4.34 (3.80-5.20) Mil/uL Hgb 11.2 (11.0-16.0) g/dL Hct 35.6 (34.0-47.0) % MCV 82.1 (81.0-99.0) fL MCH 25.9 L (27.0-31.0) pg MCHC 31.5 L (33.0-37.0) g/dL RDW 16.9 H (11.5-14.5) % Plt Count 242 (130-400) K/uL MPV 8.8 (7.2-11.7) fL Neut % (Auto) 64.3 (50.0-75.0) % Lymph % (Auto) 21.5 (20.0-40.0) % Ferry % (Auto) 12.8 H (0.0-10.0) % Eos % (Auto) 0.8 (0.0-4.0) % Baso % (Auto) 0.6 (0.0-2.0) % Neut # 6.0 (1.8-7.0) K/uL Lymph # 2.0 (1.0-4.3) K/uL Ferry # 1.2 H (0.0-0.8) K/uL Eos # 0.1 (0.0-0.7) K/uL Baso # 0.1 (0.0-0.2) K/uL APTT (21-34) SECONDS Puncture Site pCO2 (35-45) mm/Hg pO2 (80-100) mm/Hg HCO3 (21-28) mmol/L ABG pH (7.35-7.45) ABG Total CO2 (22-28) mmol/L ABG O2 Saturation (95-98) % ABG Base Excess (-2.0-3.0) mmol/L ABG Hemoglobin (11.7-17.4) g/dL ABG Carboxyhemoglobin (0.5-1.5) % POC ABG HHb (Measured) (0.0-5.0) % ABG Methemoglobin (0.0-3.0) % Ming Test A-a O2 Difference mm/Hg Respiratory Index Hgb O2 Saturation (95.0-98.0) % Liter Flow FiO2 % Sodium (132-148) mmol/L Potassium (3.6-5.2) mmol/L Chloride (98-107) mmol/L Carbon Dioxide (22-30) mmol/L Anion Gap (10-20) BUN (7-17) mg/dL Creatinine (0.7-1.2) MG/DL Est GFR ( Amer) Est GFR (Non-Af Amer) Random Glucose (65-105) mg/dL Calcium (8.6-10.4) mg/dl Phosphorus (2.5-4.5) mg/dL Magnesium (1.6-2.3) mg/dL Total Bilirubin (0.2-1.3) mg/dL AST (14-36) U/L ALT (9-52) U/L Alkaline Phosphatase (38-126) U/L Total Protein (6.3-8.3) g/dL Albumin (3.5-5.0) g/dL Globulin (2.2-3.9) gm/dL Albumin/Globulin Ratio (1.0-2.1) Procalcitonin 0.29 (0.19-0.49) NG/ML Vancomycin Trough 21.7 H (5.0-10.0) ug/mL Laboratory Results - last 24 hr 03/23/17 03/23/17 03/23/17 06:51 06:51 06:51 WBC 9.3 RBC 4.34 Hgb 11.2 Hct 35.6 MCV 82.1 MCH 25.9 L MCHC 31.5 L RDW 16.9 H Plt Count 242 MPV 8.8 Neut % (Auto) 64.3 Lymph % (Auto) 21.5 Ferry % (Auto) 12.8 H Eos % (Auto) 0.8 Baso % (Auto) 0.6 Neut # 6.0 Lymph # 2.0 Ferry # 1.2 H Eos # 0.1 Baso # 0.1 APTT Puncture Site pCO2 pO2 HCO3 ABG pH ABG Total CO2 ABG O2 Saturation ABG Base Excess ABG Hemoglobin ABG Carboxyhemoglobin POC ABG HHb (Measured) ABG Methemoglobin Ming Test A-a O2 Difference Respiratory Index Hgb O2 Saturation Liter Flow FiO2 Sodium Potassium Chloride Carbon Dioxide Anion Gap BUN Creatinine Est GFR ( Amer) Est GFR (Non-Af Amer) Random Glucose Calcium Phosphorus Magnesium Total Bilirubin AST ALT Alkaline Phosphatase Total Protein Albumin Globulin Albumin/Globulin Ratio Procalcitonin 0.29 Vancomycin Trough 21.7 H 03/23/17 03/23/17 03/23/17 06:51 06:51 08:41 WBC RBC Hgb Hct MCV MCH MCHC RDW Plt Count MPV Neut % (Auto) Lymph % (Auto) Ferry % (Auto) Eos % (Auto) Baso % (Auto) Neut # Lymph # Ferry # Eos # Baso # APTT 68 H Puncture Site Rb pCO2 49 H pO2 67 L HCO3 30.4 H ABG pH 7.43 ABG Total CO2 34.0 H ABG O2 Saturation 95.0 ABG Base Excess 7.1 H ABG Hemoglobin 11.5 L ABG Carboxyhemoglobin 1.4 POC ABG HHb (Measured) 4.9 ABG Methemoglobin 1.1 Ming Test Na A-a O2 Difference 86.0 Respiratory Index 1.3 Hgb O2 Saturation 92.7 L Liter Flow 3.0 FiO2 30.0 Sodium 137 Potassium 3.2 L Chloride 97 L Carbon Dioxide 32 H Anion Gap 11 BUN 8 Creatinine 0.7 Est GFR ( Amer) > 60 Est GFR (Non-Af Amer) > 60 Random Glucose 77 Calcium 8.3 L Phosphorus 2.2 L Magnesium 1.8 Total Bilirubin 0.6 AST 64 H D ALT 26 Alkaline Phosphatase 64 Total Protein 5.8 L Albumin 2.8 L Globulin 3.0 Albumin/Globulin Ratio 0.9 L Procalcitonin Vancomycin Trough Review of Systems - Constitutional Constitutional: absent: Fever - Cardiovascular Cardiovascular: absent: Chest Pain, Palpitations - Respiratory Respiratory: Cough, Dyspnea on Exertion (shortness of breath with prolonged speaking) - Gastrointestinal Gastrointestinal: Nausea. absent: Abdominal Pain, Vomiting - Musculoskeletal Musculoskeletal: Limited Range of Motion Critical Care Progress Note - Nutrition Nutrition: Nutrition Category Date Time Status Heart Healthy Diet [DIET] Diets 03/21/17 Breakfast Active Assessment/Plan - Assessment and Plan (Free Text) Assessment: This a 61-year-old female admitted 03/20/17 at night because she was not feeling well, she was not able to get out of bed. Plan: Neuro: -Alert and oriented 3 - Klonopin 1mg PO Q12 - Neurontin 300mg PO TID Pulm: - Chest X-ray (03/22/17): New right PICC catheter terminates at the level of the cav atrial junction. Mild congestive change. - Chest X-ray (03/20/17): No acute findings - CT of Chest (03/20/17): No CT evidence for acute pulmonary embolism, aortic aneurysm or aortic dissection. Confluent airspace disease in the posterior basal segment of the left lower lobe may represent move subsegmental atelectasis however pneumonia cannot be excluded. Also noted is moderate left hilar lymphadenopathy of uncertain etiology and could be reactive. Infectious or inflammatory in etiology. Follow-up after medical management is recommended to ensure complete resolution. - BiPap at night - Nasal Canula 2L - Phenergan/Codeine Oral Syrup 5ml PO Q4 PRN - Pulm Consult: Dr. Quiñones --> help appreciated CV: - Aspirin 325mg PO daily - Lasix 40mg PO daily - Cozaar 50mg PO daily - Metoprolol Tartrate 50mg PO Q12 - Crestor 20mg PO HS - Cardiology Consult: Dr. David --> help appreciated Heme: - H/H (): 11.2/36; H/H (03/23): 11.2/35.6 Renal: - BUN/Cr: 8/0.7 - Monitor I/O GI: - Pepcid 20mg PO daily - Florastor 250mg PO BID ID: - Zosyn 2.4gm in 100mls at 100mls/hr IVPB q6 (Active since 03/21/17) - Florastor 250mg PO BID - Vancomycin 1gm in 200mls at 1.33.33 mls/hr: is on hold - C. Diff: Negative - Mycoplasm Pneumonia IgM: Negative - Urine Legionella Pneumophila Antigen: Negative - Urine Culture: No growth - Naris: MRSA not detected - f/u blood culture MSK: -Hip/Pelvis X-ray (03/21/17): No acute displaced fracture or dislocation. - Morphine 2mg q6h prn for moderate pain - Neurontin 300mg PO TID DVT proph - SCDs GI proph - Pepcid 20mg PO daily, Florastor 250mg PO BID Colmenares for strict I/O's during acute illness Code status - full code Case discussed with Dr. Ishmael Agrawal PGY-1 <Howard Quiñones S - Last Filed: 03/24/17 17:24> CCU Objective - Vital Signs / Intake & Output Vital Signs (Last 4 hours): Vital Signs Temp Pulse Resp BP Pulse Ox 03/24/17 16:02 68 19 136/70 97 03/24/17 16:00 97.5 F L 70 19 98 03/24/17 15:00 67 11 L 03/24/17 14:01 68 16 137/67 95 03/24/17 14:00 67 18 95 Intake and Output (Last 8hrs): Intake & Output 03/24/17 03/24/17 03/24/17 06:59 14:59 22:59 Intake Total 100 900 60 Output Total 595 355 120 Balance -495 545 -60 Weight 350 lb Intake: Intake, IV Amount 100 200 Right Proximal Port PICC 100 200 Oral 700 60 Output: Urine 595 355 120 Urethral (Colmenares) 595 355 120 Emesis 0 0 Other: # Bowel Movements 0 - Medications Active Medications: Active Medications Generic Name Dose Route Start Last Admin Trade Name Freq PRN Reason Stop Dose Admin Albuterol/Ipratropium 3 ml 03/21/17 00:00 03/24/17 16:35 Duoneb 3 Mg/0.5 Mg (3 Ml) Ud INH 3 ml RQ4 RIK Administration Aspirin 325 mg 03/20/17 23:45 03/24/17 10:59 Ecotrin PO 325 mg DAILY RIK Administration Clonazepam 1 mg 03/20/17 23:45 03/24/17 11:04 Klonopin PO 1 mg Q12 RIK Administration Famotidine 20 mg 03/23/17 10:00 03/24/17 10:59 Pepcid PO 20 mg DAILY RKI Administration Furosemide 40 mg 03/21/17 16:45 03/24/17 10:59 Lasix PO 40 mg DAILY RIK Administration Gabapentin 300 mg 03/20/17 23:45 03/24/17 16:02 Neurontin PO 300 mg TID RIK Administration Heparin Sodium (Porcine) 5,000 units 03/24/17 06:00 03/24/17 16:02 Heparin SC 5,000 units Q8 RIK Administration Vancomycin/Sodium Chloride 1 gm in 200 mls @ 133.333 mls/hr 03/21/17 10:00 21:18 Vancocin IVPB 03/26/17 10:01 133.333 mls/hr Q12H RIK Administration Piperacillin Sod/Tazobactam Sod 4.5 gm in 100 mls @ 100 mls/hr 03/21/17 01:00 03/24/17 12:02 Zosyn 4.5 Gm Iv Premix IVPB 100 mls/hr Q6 RIK Administration Losartan Potassium 50 mg 03/22/17 16:09 03/24/17 10:59 Cozaar PO 50 mg DAILY RIK Administration Metoprolol Tartrate 50 mg 03/22/17 22:00 03/24/17 10:59 Lopressor PO 50 mg Q12 RIK Administration Morphine Sulfate 2 mg 03/24/17 10:56 03/24/17 16:03 Morphine IVP 2 mg Q4H PRN Administration Pain, moderate (4-7) Nitroglycerin 0.4 mg 03/20/17 23:50 Nitrostat Sl Tab SL Q5M PRN Promethazine HCl/Codeine 5 ml 03/22/17 16:10 Phenergan/Codeine Oral Syrup PO Q4 PRN Cough Ranolazine 500 mg 03/24/17 10:00 03/24/17 10:59 Ranexa PO 500 mg BID RIK Administration Rosuvastatin Calcium 20 mg 03/21/17 22:00 03/23/17 21:23 Crestor PO 20 mg HS RIK Administration Saccharomyces Boulardii 250 mg 03/22/17 18:00 03/24/17 10:59 Florastor PO 250 mg BID RIK Administration - Patient Studies Lab Studies: Microbiology Studies 03/22/17 Unknown Urine Culture - Final Urine,Catheterized No Growth (<1,000 CFU/ML) 03/20/17 22:00 Blood Culture - Preliminary Blood NO GROWTH AFTER 3 DAYS 03/20/17 21:00 Blood Culture - Preliminary Blood NO GROWTH AFTER 3 DAYS Lab Studies 03/24/17 03/24/17 Range/Units 06:27 06:27 WBC 8.4 (4.8-10.8) K/uL RBC 4.35 (3.80-5.20) Mil/uL Hgb 11.2 (11.0-16.0) g/dL Hct 36.0 (34.0-47.0) % MCV 82.7 (81.0-99.0) fL MCH 25.8 L (27.0-31.0) pg MCHC 31.1 L (33.0-37.0) g/dL RDW 16.9 H (11.5-14.5) % Plt Count 236 (130-400) K/uL MPV 8.9 (7.2-11.7) fL Neut % (Auto) 58.2 (50.0-75.0) % Lymph % (Auto) 24.5 (20.0-40.0) % Ferry % (Auto) 11.6 H (0.0-10.0) % Eos % (Auto) 4.8 H (0.0-4.0) % Baso % (Auto) 0.9 (0.0-2.0) % Neut # 4.9 (1.8-7.0) K/uL Lymph # 2.1 (1.0-4.3) K/uL Ferry # 1.0 H (0.0-0.8) K/uL Eos # 0.4 (0.0-0.7) K/uL Baso # 0.1 (0.0-0.2) K/uL Sodium 139 (132-148) mmol/L Potassium 3.1 L (3.6-5.2) mmol/L Chloride 97 L (98-107) mmol/L Carbon Dioxide 34 H (22-30) mmol/L Anion Gap 11 (10-20) BUN 8 (7-17) mg/dL Creatinine 0.7 (0.7-1.2) MG/DL Est GFR ( Amer) > 60 Est GFR (Non-Af Amer) > 60 Random Glucose 77 (65-105) mg/dL Calcium 8.2 L (8.6-10.4) mg/dl Phosphorus 3.1 (2.5-4.5) mg/dL Magnesium 1.8 (1.6-2.3) mg/dL Total Bilirubin 0.6 (0.2-1.3) mg/dL AST 43 H D (14-36) U/L ALT 23 (9-52) U/L Alkaline Phosphatase 56 (38-126) U/L Total Protein 5.9 L (6.3-8.3) g/dL Albumin 2.8 L (3.5-5.0) g/dL Globulin 3.1 (2.2-3.9) gm/dL Albumin/Globulin Ratio 0.9 L (1.0-2.1) Laboratory Results - last 24 hr 03/24/17 03/24/17 06:27 06:27 WBC 8.4 RBC 4.35 Hgb 11.2 Hct 36.0 MCV 82.7 MCH 25.8 L MCHC 31.1 L RDW 16.9 H Plt Count 236 MPV 8.9 Neut % (Auto) 58.2 Lymph % (Auto) 24.5 Ferry % (Auto) 11.6 H Eos % (Auto) 4.8 H Baso % (Auto) 0.9 Neut # 4.9 Lymph # 2.1 Ferry # 1.0 H Eos # 0.4 Baso # 0.1 Sodium 139 Potassium 3.1 L Chloride 97 L Carbon Dioxide 34 H Anion Gap 11 BUN 8 Creatinine 0.7 Est GFR ( Amer) > 60 Est GFR (Non-Af Amer) > 60 Random Glucose 77 Calcium 8.2 L Phosphorus 3.1 Magnesium 1.8 Total Bilirubin 0.6 AST 43 H D ALT 23 Alkaline Phosphatase 56 Total Protein 5.9 L Albumin 2.8 L Globulin 3.1 Albumin/Globulin Ratio 0.9 L Critical Care Progress Note - Nutrition Nutrition: Nutrition Category Date Time Status Heart Healthy Diet [DIET] Diets 03/21/17 Breakfast Active Assessment/Plan (1) Non-STEMI (non-ST elevated myocardial infarction) Current Visit: Yes Status: Acute Comment: seen by cardiology and the plan is medical management Discontinue heparin Continue present treatment and add RENEXA, and imdur (2) SIRS (systemic inflammatory response syndrome) Current Visit: Yes Status: Acute Comment: CAT scan of the chest consistent with pneumonia/atelectasis Continue antibiotics and followup culture and senst (3) COPD (chronic obstructive pulmonary disease) Current Visit: Yes Status: Chronic Comment: Continue neb treatment patient with long historyand weight loss Consider PET scan, a repeat CAT scan of the chest after 3 months (4) OPHELIA (obstructive sleep apnea) Current Visit: Yes Status: Chronic Comment: obstructive sleep apnea versus obesity hypoventilation syndrome BiPAP at night Attending/Attestation - Attestation I have personally seen and examined this patient.: Yes I have fully participated in the care of the patient.: Yes I have reviewed all pertinent clinical information: Yes Notes (Text): 03/24/17 17:23 patient seen and examined in the intensive care unit. Case discussed with house staff in the morning rounds. Continue medical treatment for coronary artery disease Patient advised to use CPAP at night Continue antibiotics for pneumonia/uti
[2017-03-24 06:52] LABS: ALBUMIN 2.8 g/dL (3.5-5.0)
[2017-03-24 06:54] LABS: GFR AFRICAN-AMERICAN > 60; GFR NON-AFRICAN AMERICAN > 60
[2017-03-24 06:55] LABS: ALB/GLOB RATIO 0.9 (1.0-2.1); ALT/SGPT 23 U/L (9-52); AST/SGOT 43 U/L (14-36); BLOOD UREA NITROGEN 8 mg/dL (7-17)
[2017-03-24 06:56] LABS: CALCIUM 8.2 mg/dl (8.6-10.4); MAGNESIUM 1.8 mg/dL (1.6-2.3)
[2017-03-24] MEDS ORDERED: Potassium Chloride 10 mEq ER Tab PO SCH ×2 (08:00)
[2017-03-24] MEDS: Aspirin 325 mg EC Tablets PO SCH (10:59)
[2017-03-24] MEDS: Saccharomyces Boulardi 250 mg Cap PO SCH ×2 (10:59→19:32)
[2017-03-24] MEDS: Ranolazine 500 mg Extended Release Tablets PO SCH ×2 (10:59→18:44)
--- NOTE | 2017-03-24 13:56 | CP.PCM.PN ---
Subjective - Date & Time of Evaluation Date of Evaluation: 03/24/17 Time of Evaluation: 13:52 - Subjective Subjective: Remains bed bound Still with cough No FEVER, No CP Objective - Vital Signs/Intake and Output Vital Signs (last 24 hours): Temp Pulse Resp BP Pulse Ox 98.5 F 69 24 124/73 94 L 03/23/17 16:00 03/24/17 11:24 03/24/17 07:02 03/24/17 10:59 03/24/17 07:02 Intake and Output: 03/24/17 03/24/17 06:59 18:59 Intake Total 132.8 340 Output Total 1385 65 Balance -1252.2 275 - Medications Medications: Current Medications Albuterol/Ipratropium (Duoneb 3 Mg/0.5 Mg (3 Ml) Ud) 3 ml INH RQ4 [facility] Last Admin: 03/24/17 11:17 Dose: 3 ml Aspirin (Ecotrin) 325 mg PO DAILY [facility] Last Admin: 03/24/17 10:59 Dose: 325 mg Clonazepam (Klonopin) 1 mg PO Q12 RIK Last Admin: 03/24/17 11:04 Dose: 1 mg Famotidine (Pepcid) 20 mg PO DAILY [facility] Last Admin: 03/24/17 10:59 Dose: 20 mg Furosemide (Lasix) 40 mg PO DAILY [facility] Last Admin: 03/24/17 10:59 Dose: 40 mg Gabapentin (Neurontin) 300 mg PO TID [facility] Last Admin: 03/24/17 12:05 Dose: 300 mg Heparin Sodium (Porcine) (Heparin) 5,000 units SC Q8 [facility] Last Admin: 03/24/17 05:49 Dose: 5,000 units Vancomycin/Sodium Chloride (Vancocin) 1 gm in 200 mls @ 133.333 mls/hr IVPB Q12H [facility] Stop: 03/26/17 10:01 Last Admin: 03/22/17 21:18 Dose: 133.333 mls/hr Piperacillin Sod/Tazobactam Sod (Zosyn 4.5 Gm Iv Premix) 4.5 gm in 100 mls @ 100 mls/hr IVPB Q6 [facility] Last Admin: 03/24/17 12:02 Dose: 100 mls/hr Losartan Potassium (Cozaar) 50 mg PO DAILY [facility] Last Admin: 03/24/17 10:59 Dose: 50 mg Metoprolol Tartrate (Lopressor) 50 mg PO Q12 [facility] Last Admin: 03/24/17 10:59 Dose: 50 mg Morphine Sulfate (Morphine) 2 mg IVP Q4H PRN PRN Reason: Pain, moderate (4-7) Nitroglycerin (Nitrostat Sl Tab) 0.4 mg SL Q5M PRN Potassium Chloride (Klor-Con 10) 40 meq PO BRK [facility] Last Admin: 03/24/17 08:55 Dose: 40 meq Promethazine HCl/Codeine (Phenergan/Codeine Oral Syrup) 5 ml PO Q4 PRN PRN Reason: Cough Ranolazine (Ranexa) 500 mg PO BID [facility] Last Admin: 03/24/17 10:59 Dose: 500 mg Rosuvastatin Calcium (Crestor) 20 mg PO HS [facility] Last Admin: 03/23/17 21:23 Dose: 20 mg Saccharomyces Boulardii (Florastor) 250 mg PO BID [facility] Last Admin: 03/24/17 10:59 Dose: 250 mg - Labs Labs: 03/24/17 06:27 03/24/17 06:27 PT 13.3 SECONDS (9.7-12.2) H 03/20/17 22:39 INR 1.2 03/20/17 22:39 APTT 68 SECONDS (21-34) H 03/23/17 06:51 - Constitutional Appears: Chronically Ill, Other (morbidly obese, bed bound, sacral decub) - Head Exam Head Exam: ATRAUMATIC, NORMAL INSPECTION, NORMOCEPHALIC - Eye Exam Eye Exam: EOMI, Normal appearance, PERRL - ENT Exam ENT Exam: Mucous Membranes Moist - Cardiovascular Exam Cardiovascular Exam: REGULAR RHYTHM, +S1, +S2. absent: Gallop, +S4 - GI/Abdominal Exam GI & Abdominal Exam: Soft. absent: Tenderness - Neurological Exam Neurological Exam: Alert, Awake, Oriented x3 - Psychiatric Exam Psychiatric exam: Normal Affect, Normal Mood - Skin Skin Exam: Normal Color, Warm Assessment and Plan - Assessment and Plan (Free Text) Assessment: 1. 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 SIRS/SEPSIS/PNA/UTI 4. Sacral Decub 5. Morbidly obese 6. OPHELIA 7. Sedentary, bed bound due to multiple comorbidities ECHO done at bed side directly seen by me: Preserved LV function, no sig valve regurge, mild dilated RV with preserved RV function. Inferobasal and basal septum appear aneurysmal. Troponin: 6 > 7 > 14 > 15 Hypokalemia: cont monitor and replace TELE: NSR, no arrythmia Clinically no angina, arrythmia or worsening systolic dysfunction sx's. 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 No plans for c.cath. [facility] medical Rx for CAD. * ASA 81 * Plavix 75 daily * Crestor * Metoprolol * Losartan * lasix * Imdur * Ranexa * Heparin DVT prophylaxis [facility] pulmonary Rx for OPHELIA/Obesity Cont to Rx underlying spesis/SIRS/UTI/PNA/Bronchitis/sacral decub Patient has significant morbidity and mortality due to bed bound state: Suggest aggressive measures to increase mobility. No plans for any cardiac procedures at this time. Will sign off call as needed.
[2017-03-25] MEDS: Albuterol-Ipratrop 3 mg / 0.5 (3 ml) UD INH SCH ×6 (00:02→20:08)
[2017-03-25] MEDS: Piperacill/Tazo 4.5gm in Dex 4.5 GM/100 ML BAG IVPB SCH ×3 (05:28→18:01)
[2017-03-25 07:11] LABS: ALBUMIN 2.8 g/dL (3.5-5.0)
[2017-03-25 07:13] LABS: GFR AFRICAN-AMERICAN > 60; GFR NON-AFRICAN AMERICAN > 60
[2017-03-25 07:14] LABS: ALB/GLOB RATIO 0.9 (1.0-2.1); ALT/SGPT 22 U/L (9-52); AST/SGOT 25 U/L (14-36); BLOOD UREA NITROGEN 11 mg/dL (7-17); CALCIUM 7.8 mg/dl (8.6-10.4)
[2017-03-25 07:15] LABS: MAGNESIUM 1.8 mg/dL (1.6-2.3)
[2017-03-25 07:27] LABS: BASO # 0.1 K/uL (0.0-0.2); EOS # 0.8 K/uL (0.0-0.7); EOS % 9.2 % (0.0-4.0); HEMOGLOBIN 11.3 g/dL (11.0-16.0); LYMPH # 2.1 K/uL (1.0-4.3); LYMPH % 22.7 % (20.0-40.0); MEAN CELL VOLUME 82.8 fL (81.0-99.0); MEAN CORPUSCULAR HEMOGLOBIN 25.4 pg (27.0-31.0); MEAN CORPUSCULAR HGB CONC 30.7 g/dL (33.0-37.0); MONO # 0.7 K/uL (0.0-0.8); MONO % 7.6 % (0.0-10.0); NEUT # 5.5 K/uL (1.8-7.0); NEUT % 59.5 % (50.0-75.0); RBC 4.44 Mil/uL (3.80-5.20); RED CELL DISTRIBUTION WIDTH 16.6 % (11.5-14.5); WHITE BLOOD COUNT 9.2 K/uL (4.8-10.8)
--- NOTE | 2017-03-25 07:54 | CP.PCM.PN ---
Subjective - Date & Time of Evaluation Date of Evaluation: 03/25/17 Time of Evaluation: 07:45 - Subjective Subjective: Medical Attending Note: Patient seen and examined this morning. Patient reports she didn't sleep well last night, reports the alarm came going off. Patient report she kept mask on until 330AM. Patient reports low back pain. Educated patient at bedside the importance of CPAP/BIPAP and the risk of apnea including but not limited to stroke and heart attack. Patient denies that she is holding the Klonopin, discussed with nurse yesterday. Reiterated with patient again, she is being monitored and she is on strong medications that can adversely impact her breathing if she is supplementing what she is getting at the hospital. Objective - Vital Signs/Intake and Output Vital Signs (last 24 hours): Temp Pulse Resp BP Pulse Ox 98.7 F 69 21 114/53 L 94 L 03/24/17 20:00 03/25/17 07:01 03/25/17 07:01 03/25/17 07:01 03/25/17 07:01 Intake and Output: 03/25/17 03/25/17 06:59 18:59 Intake Total 540 Output Total 590 50 Balance -50 -50 - Medications Medications: Current Medications Albuterol/Ipratropium (Duoneb 3 Mg/0.5 Mg (3 Ml) Ud) 3 ml INH RQ4 RIK Last Admin: 03/25/17 07:50 Dose: 3 ml Aspirin (Ecotrin) 325 mg PO DAILY RIK Last Admin: 03/24/17 10:59 Dose: 325 mg Clonazepam (Klonopin) 1 mg PO Q12 RIK Last Admin: 03/24/17 22:01 Dose: 1 mg Famotidine (Pepcid) 20 mg PO DAILY RIK Last Admin: 03/24/17 10:59 Dose: 20 mg Furosemide (Lasix) 40 mg PO DAILY RIK Last Admin: 03/24/17 10:59 Dose: 40 mg Gabapentin (Neurontin) 300 mg PO TID RIK Last Admin: 03/24/17 18:30 Dose: 300 mg Heparin Sodium (Porcine) (Heparin) 5,000 units SC Q8 RIK Last Admin: 03/25/17 05:29 Dose: 5,000 units Vancomycin/Sodium Chloride (Vancocin) 1 gm in 200 mls @ 133.333 mls/hr IVPB Q12H RIK Stop: 03/26/17 10:01 Last Admin: 03/22/17 21:18 Dose: 133.333 mls/hr Piperacillin Sod/Tazobactam Sod (Zosyn 4.5 Gm Iv Premix) 4.5 gm in 100 mls @ 100 mls/hr IVPB Q6 [facility] Last Admin: 03/25/17 05:28 Dose: 100 mls/hr Magnesium Sulfate/Dextrose (Magnesium Sulfate 1 Gm/100 Ml D5w) 1 gm in 100 mls @ 200 mls/hr IVPB ONCE ONE Stop: 03/25/17 08:14 Potassium Chloride (Potassium Chloride 20 Meq/100 Ml) 20 meq in 100 mls @ 50 mls/hr IVPB ONCE ONE Stop: 03/25/17 09:44 Isosorbide Mononitrate (Imdur) 30 mg PO DAILY [facility] Losartan Potassium (Cozaar) 50 mg PO DAILY [facility] Last Admin: 03/24/17 10:59 Dose: 50 mg Metoprolol Tartrate (Lopressor) 50 mg PO Q12 [facility] Last Admin: 03/24/17 22:00 Dose: 50 mg Morphine Sulfate (Morphine) 2 mg IVP Q4H PRN PRN Reason: Pain, moderate (4-7) Last Admin: 03/25/17 06:33 Dose: 2 mg Nitroglycerin (Nitrostat Sl Tab) 0.4 mg SL Q5M PRN Potassium Chloride (Klor-Con 10) 20 meq PO BRK [facility] Promethazine HCl/Codeine (Phenergan/Codeine Oral Syrup) 5 ml PO Q4 PRN PRN Reason: Cough Ranolazine (Ranexa) 500 mg PO BID [facility] Last Admin: 03/24/17 18:44 Dose: 500 mg Rosuvastatin Calcium (Crestor) 20 mg PO HS [facility] Last Admin: 03/24/17 22:01 Dose: 20 mg Saccharomyces Boulardii (Florastor) 250 mg PO BID [facility] Last Admin: 03/24/17 19:32 Dose: 250 mg - Labs Labs: 03/25/17 06:34 03/25/17 06:34 PT 13.3 SECONDS (9.7-12.2) H 03/20/17 22:39 INR 1.2 03/20/17 22:39 APTT 68 SECONDS (21-34) H 03/23/17 06:51 - Constitutional Appears: Non-toxic, No Acute Distress - Head Exam Head Exam: NORMAL INSPECTION Additional comments: morbidly obese female PICC line right upper extremity Flexcel - Eye Exam Eye Exam: EOMI - ENT Exam ENT Exam: Mucous Membranes Dry - Respiratory Exam Respiratory Exam: Decreased Breath Sounds, Rhonchi, NORMAL BREATHING PATTERN. absent: Stridor - Cardiovascular Exam Cardiovascular Exam: REGULAR RHYTHM, +S1, +S2 - GI/Abdominal Exam GI & Abdominal Exam: Distended, Soft, Normal Bowel Sounds. absent: Firm, Guarding, Rigid, Tenderness, Rebound Additional comments: morbidly obese - Extremities Exam Extremities Exam: absent: Joint Swelling, Pedal Edema, Tenderness - Neurological Exam Neurological Exam: Alert, Awake, Oriented x3 - Psychiatric Exam Psychiatric exam: Normal Affect, Normal Mood - Skin Skin Exam: Dry, Intact, Normal Color, Warm Assessment and Plan (1) Non-STEMI (non-ST elevated myocardial infarction) Status: Acute (2) Morbidly obese Status: Chronic (3) SIRS (systemic inflammatory response syndrome) Status: Acute (4) HTN (hypertension) Status: Chronic (5) OPHELIA (obstructive sleep apnea) Status: Chronic (6) COPD (chronic obstructive pulmonary disease) Status: Chronic (7) Spinal stenosis Status: Chronic (8) Sacral wound Status: Acute (9) Prophylactic measure Status: Acute - Assessment and Plan (Free Text) Assessment: (1) Non-STEMI (non-ST elevated myocardial infarction) History of prior myocardial infarction Assessment & Plan: Cardiology (Dr. David) on board-->help appreciated-->signed off 03/24/17 Per cardiology note, bedside ECHO (03/22/17)--> Preserved LV function, no sig valve regurge, mild dilated RV with preserved RV function. Inferobasal and basal septum appear aneurysmal. Troponin increasing Hypokalemia: replaced Clinically no angina, arrythmia or worsening systolic dysfunction sx's. 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 No plans for c.cath. [facility] medical Rx for CAD. Per cardiology, * ASA 81 mg PO daily * Plavix 75mg PO daily * Crestor 20mg PO qHS * Metoprolol 50mg PO BID (Hold SBP<100 and HR<60) * Losartan 50mg PO daily (Hold SBP<100) * Lasix 40mg PO daily (Hold SBP<100) * Ranexa 550mg PO bid * On heparin dvt ppx * Start Imdur 30mg PO daily (hold SBP<100 * [facility] pulmonary Rx for OPHELIA/Obesity\ * Encourage mobility Pulmonary (Dr. Quiñones) on board-->help appreciated Status: Acute (2) Morbidly obese Status: Chronic * Patient reports she has had unintentional weight loss over the past year * [employer] referral * Physical therapy eval * Occupational eval * OOB (3) SIRS (systemic inflammatory response syndrome) Assessment & Plan: * White count has normalized * Chest xray (03/20/17): no acute findings * CT Chest (03/20/17): no ct evidence of acute pulmonary embolism, aortic aneurysm , or aortic dissection. [place] airspace disease in the posterio basal segment of the left lower lobe may represent subsegmental atelectasis however pneumonia cannot be excluded. Patient has moderate left hilar lymphadenopathy of uncertain etiology * Chest Xray (03/22/17) New right PICC catheter terminates at level of cavoatrial junction. Mild congestive change. * Ordered for chest xray today * Zosyn 4.5 IV Q 6hours (Active since 03/21/17) * Vancomycin 1 gram IVQ 12hours (active since 03/21/17) held. * Florastor 250mg PO bid * Blood culture (03/20/17): no growth after 4 days X2 * UA (2nd): hematuria-->treat as urinary tract infection-->repeat today * Urine culture (03/22/17): no growth * MRSA (03/21/17) not detected * Order strep pneumoniae, legionella: negative, and mycoplasma IGM: negative * sacral wound: turn q 2hours, and wound care Status: Acute (4) HTN (hypertension) Assessment & Plan: * Metoprolol 50mg PO BID (Hold SBP<100 and HR<60) * Losartan 50mg PO daily (Hold SBP<100) * Lasix 40mg PO daily (Hold SBP<100) * Ranexa 500mg PO bid * Start Imdur 30mg PO daily Status: Chronic (5) OPHELIA (obstructive sleep apnea) Status: Chronic * BIPAP * Educated about consistency of wearing the mask at bedside (6) COPD (chronic obstructive pulmonary disease) Status: Chronic * Albuterol 3ml inhaled RQ4 * Start Spiriva 18mcg inhaled q daily * BIPAP prn * Repeat chest xray today (7) History of Spinal stenosis Status: Chronic (8) History of Pressure Ulcer * Wound care * Turn Q 2hours (9) Prophylactic measure Assessment & Plan: * Heparin 5000 units Q 8 hours * GI ppx: Pepcid 20mg PO BID * Wound care * TurnQ 2hours * Aspirin 81mg PO daily * PT/OT eval * OOB
[2017-03-25] MEDS ORDERED: Potassium Chloride 20 mEq ER Tab PO SCH (08:00)
[2017-03-25] MEDS ORDERED: Potassium Chloride 10 mEq ER Tab PO SCH (08:00)
[2017-03-25] MEDS ORDERED: Magnesium Sulfate 1 gm in D5W 1 GM/100 ML BAG IVPB ONE (09:00)
--- NOTE | 2017-03-25 09:13 | RAD ---
HISTORY: shortness of breathe; pneumonia COMPARISON: 03/22/2017 FINDINGS: LUNGS: As before the study slightly rotated towards the right - unfolding the aorta and further accentuating the already prominent bilateral hilar structures (left greater than right). Symmetrical pulmonary venous congestion suggested. No consolidation. Right PICC line tip in superior vena cava. PLEURA: No significant pleural effusion identified, no pneumothorax apparent. CARDIOVASCULAR: Cardiomegaly and central pulmonary vascular congestion OSSEOUS STRUCTURES: Thoracic spondylosis and dextroscoliosis VISUALIZED UPPER ABDOMEN: Surgical clips right upper abdomen OTHER FINDINGS: None. IMPRESSION: Exam limited due to the slight rightward rotation and patient's underlying dextroscoliosis. Cardiomegaly and pulmonary venous congestion suggested-and similar-appearing. No interval pleural effusion. No consolidation suggested. Given the slight asymmetrical prominence of the left hilum, additional, left hilar/central pathology here cannot be excluded. If outside studies exists, consider provided them to assure stability. Otherwise under follow-up CT chest imaging with contrast enhancement when patient can tolerate
--- NOTE | 2017-03-25 09:17 | CP.CCUPN ---
<NghiaDemetraRenae - Last Filed: 03/25/17 17:11> CCU Subjective - Physician Review Subjective (Free Text): 03/25/17 11:32 Patient seen and examined at bedside in the AM. Patient states she slept poorly because the Bipap machine kept making noises so now she has a bit of a headache. Patient states she is still coughing but cannot cough up any of the phlegm. Patient denies difficulty breathing, shortness of breath, nausea, vomiting, or fever. CCU Objective - Vital Signs / Intake & Output Vital Signs (Last 4 hours): Vital Signs Pulse Resp BP Pulse Ox 03/25/17 07:01 69 21 114/53 L 94 L 03/25/17 07:00 69 22 95 03/25/17 06:01 70 22 118/58 L 96 03/25/17 06:00 70 13 95 Intake and Output (Last 8hrs): Intake & Output 03/24/17 03/25/17 03/25/17 22:59 06:59 14:59 Intake Total 360 440 Output Total 460 350 50 Balance -100 90 -50 Weight 350 lb Intake: Intake, IV Amount 100 200 Right Proximal Port PICC 100 200 Oral 260 240 Output: Urine 460 350 50 Urethral (Pradhan) 460 350 50 Emesis 0 - Physical Exam Head: Positive for: Normocephalic Pupils: Positive for: PERRL Extroacular Muscles: Positive for: EOMI Mouth: Positive for: Moist Mucous Membranes Respiratory/Chest: Positive for: Wheezes, Rhonchi. Negative for: Respiratory Distress, Accessory Muscle Use Cardiovascular: Positive for: Regular Rate and Rhythm, Normal S1, S2. Negative for: Murmurs Abdomen: Positive for: Normal Bowel Sounds. Negative for: Tenderness, Distention, Guarding Lower Extremity: Negative for: Edema, CALF TENDERNESS Neurological: Positive for: Speech Normal Skin: Positive for: Warm, Normal Color Psychiatric: Positive for: Alert, Oriented x 3, Normal Affect, Normal Mood - Medications Active Medications: Active Medications Generic Name Dose Route Start Last Admin Trade Name Freq PRN Reason Stop Dose Admin Albuterol/Ipratropium 3 ml 03/21/17 00:00 03/25/17 07:50 Duoneb 3 Mg/0.5 Mg (3 Ml) Ud INH 3 ml RQ4 RIK Administration Aspirin 81 mg 03/25/17 08:02 Ecotrin PO DAILY [facility] Clonazepam 1 mg 03/20/17 23:45 03/24/17 22:01 Klonopin PO 1 mg Q12 RIK Administration Famotidine 20 mg 03/25/17 10:00 Pepcid PO BID RIK Furosemide 40 mg 03/21/17 16:45 03/24/17 10:59 Lasix PO 40 mg DAILY RKI Administration Gabapentin 300 mg 03/20/17 23:45 03/24/17 18:30 Neurontin PO 300 mg TID RIK Administration Heparin Sodium (Porcine) 5,000 units 03/24/17 06:00 03/25/17 05:29 Heparin SC 5,000 units Q8 RIK Administration Vancomycin/Sodium Chloride 1 gm in 200 mls @ 133.333 mls/hr 03/21/17 10:00 21:18 Vancocin IVPB 03/26/17 10:01 133.333 mls/hr Q12H RIK Administration Piperacillin Sod/Tazobactam Sod 4.5 gm in 100 mls @ 100 mls/hr 03/21/17 01:00 03/25/17 05:28 Zosyn 4.5 Gm Iv Premix IVPB 100 mls/hr Q6 RIK Administration Magnesium Sulfate/Dextrose 1 gm in 100 mls @ 200 mls/hr 03/25/17 09:00 Magnesium Sulfate 1 Gm/100 Ml D5w IVPB 03/25/17 09:29 ONCE ONE Potassium Chloride 20 meq in 100 mls @ 50 mls/hr 03/25/17 09:00 Potassium Chloride 20 Meq/100 Ml IVPB 03/25/17 10:59 ONCE ONE Isosorbide Mononitrate 30 mg 03/25/17 10:00 Imdur PO DAILY [facility] Losartan Potassium 50 mg 03/22/17 16:09 03/24/17 10:59 Cozaar PO 50 mg DAILY RIK Administration Metoprolol Tartrate 50 mg 03/22/17 22:00 03/24/17 22:00 Lopressor PO 50 mg Q12 RIK Administration Morphine Sulfate 2 mg 03/24/17 10:56 03/25/17 06:33 Morphine IVP 2 mg Q4H PRN Administration Pain, moderate (4-7) Nitroglycerin 0.4 mg 03/20/17 23:50 Nitrostat Sl Tab SL Q5M PRN Promethazine HCl/Codeine 5 ml 03/22/17 16:10 Phenergan/Codeine Oral Syrup PO Q4 PRN Cough Ranolazine 500 mg 03/24/17 10:00 03/24/17 18:44 Ranexa PO 500 mg BID RIK Administration Rosuvastatin Calcium 20 mg 03/21/17 22:00 03/24/17 22:01 Crestor PO 20 mg HS RIK Administration Saccharomyces Boulardii 250 mg 03/22/17 18:00 03/24/17 19:32 Florastor PO 250 mg BID RIK Administration Tiotropium [place] 18 mcg 03/26/17 08:00 Spiriva INH RQ24 RIK - Patient Studies Lab Studies: Microbiology Studies 03/20/17 22:00 Blood Culture - Preliminary Blood NO GROWTH AFTER 4 DAYS 03/20/17 21:00 Blood Culture - Preliminary Blood NO GROWTH AFTER 4 DAYS 03/22/17 Unknown Urine Culture - Final Urine,Catheterized No Growth (<1,000 CFU/ML) Lab Studies 03/25/17 03/25/17 Range/Units 06:34 06:34 WBC 9.2 (4.8-10.8) K/uL RBC 4.44 (3.80-5.20) Mil/uL Hgb 11.3 (11.0-16.0) g/dL Hct 36.8 (34.0-47.0) % MCV 82.8 (81.0-99.0) fL MCH 25.4 L (27.0-31.0) pg MCHC 30.7 L (33.0-37.0) g/dL RDW 16.6 H (11.5-14.5) % Plt Count 263 (130-400) K/uL MPV 9.0 (7.2-11.7) fL Neut % (Auto) 59.5 (50.0-75.0) % Lymph % (Auto) 22.7 (20.0-40.0) % Larue % (Auto) 7.6 (0.0-10.0) % Eos % (Auto) 9.2 H (0.0-4.0) % Baso % (Auto) 1.0 (0.0-2.0) % Neut # 5.5 (1.8-7.0) K/uL Lymph # 2.1 (1.0-4.3) K/uL Larue # 0.7 (0.0-0.8) K/uL Eos # 0.8 H (0.0-0.7) K/uL Baso # 0.1 (0.0-0.2) K/uL Sodium 139 (132-148) mmol/L Potassium 3.5 L (3.6-5.2) mmol/L Chloride 97 L (98-107) mmol/L Carbon Dioxide 32 H (22-30) mmol/L Anion Gap 14 (10-20) BUN 11 (7-17) mg/dL Creatinine 0.6 L (0.7-1.2) MG/DL Est GFR ( Amer) > 60 Est GFR (Non-Af Amer) > 60 Random Glucose 77 (65-105) mg/dL Calcium 7.8 L (8.6-10.4) mg/dl Phosphorus 3.4 (2.5-4.5) mg/dL Magnesium 1.8 (1.6-2.3) mg/dL Total Bilirubin 0.7 (0.2-1.3) mg/dL AST 25 (14-36) U/L ALT 22 (9-52) U/L Alkaline Phosphatase 52 (38-126) U/L Total Protein 6.0 L (6.3-8.3) g/dL Albumin 2.8 L (3.5-5.0) g/dL Globulin 3.2 (2.2-3.9) gm/dL Albumin/Globulin Ratio 0.9 L (1.0-2.1) Laboratory Results - last 24 hr 03/25/17 03/25/17 06:34 06:34 WBC 9.2 RBC 4.44 Hgb 11.3 Hct 36.8 MCV 82.8 MCH 25.4 L MCHC 30.7 L RDW 16.6 H Plt Count 263 MPV 9.0 Neut % (Auto) 59.5 Lymph % (Auto) 22.7 Larue % (Auto) 7.6 Eos % (Auto) 9.2 H Baso % (Auto) 1.0 Neut # 5.5 Lymph # 2.1 Larue # 0.7 Eos # 0.8 H Baso # 0.1 Sodium 139 Potassium 3.5 L Chloride 97 L Carbon Dioxide 32 H Anion Gap 14 BUN 11 Creatinine 0.6 L Est GFR ( Amer) > 60 Est GFR (Non-Af Amer) > 60 Random Glucose 77 Calcium 7.8 L Phosphorus 3.4 Magnesium 1.8 Total Bilirubin 0.7 AST 25 ALT 22 Alkaline Phosphatase 52 Total Protein 6.0 L Albumin 2.8 L Globulin 3.2 Albumin/Globulin Ratio 0.9 L Review of Systems - Constitutional Constitutional: absent: Fever - Cardiovascular Cardiovascular: absent: Chest Pain, Dyspnea - Respiratory Respiratory: Cough. absent: Dyspnea - Gastrointestinal Gastrointestinal: absent: Abdominal Pain, Nausea, Vomiting - Genitourinary Additional comments: Patient currently has a pradhan. - Musculoskeletal Musculoskeletal: Muscle Weakness (is chronic for the patient as she has been bedbound at home.) Critical Care Progress Note - Nutrition Nutrition: Nutrition Category Date Time Status Heart Healthy Diet [DIET] Diets 03/21/17 Breakfast Active Assessment/Plan - Assessment and Plan (Free Text) Assessment: This a 61-year-old female admitted 03/20/17 at night because she was not feeling well, she was not able to get out of bed. Plan: Neuro: - Alert and oriented 3 - Klonopin 1mg PO Q12 - Neurontin 300mg PO TID Pulm: - Chest X-ray (03/25/17): No interval pleural effusion. No consolidation suggested. - Chest X-ray (03/22/17): New right PICC catheter terminates at the level of the cav atrial junction. Mild congestive change. - Chest X-ray (03/20/17): No acute findings - CT of Chest (03/20/17): No CT evidence for acute pulmonary embolism, aortic aneurysm or aortic dissection. Confluent airspace disease in the posterior basal segment of the left lower lobe may represent move subsegmental atelectasis however pneumonia cannot be excluded. Also noted is moderate left hilar lymphadenopathy of uncertain etiology and could be reactive. Infectious or inflammatory in etiology. Follow-up after medical management is recommended to ensure complete resolution. - BiPap at night - Nasal Canula 2L - Phenergan/Codeine Oral Syrup 5ml PO Q4 PRN - Pulm Consult: Dr. Quiñones --> help appreciated CV: - Aspirin 325mg PO daily - Lasix 40mg PO daily - Cozaar 50mg PO daily - Metoprolol Tartrate 50mg PO Q12 - Crestor 20mg PO HS - Cardiology Consult: Dr. David --> help appreciated - Troponin (03/25): 9.17; Troponin (03/20): 7.41 and 6.05; Troponin (03/22): 15.6; Troponin (03/21): 14.20 Heme: - H/H (03/25): 11.3/36.8; H/H (03/24/): 11.2/36; H/H (03/23): 11.2/35.6 Renal: - BUN/Cr: 11/0.6 - Monitor I/O GI: - Pepcid 20mg PO daily - Florastor 250mg PO BID ID: - Zosyn 2.4gm in 100mls at 100mls/hr IVPB q6 (Active since 03/21/17) - Florastor 250mg PO BID - Vancomycin 1gm in 200mls at 1.33.33 mls/hr - Discontinued - C. Diff: Negative - Mycoplasm Pneumonia IgM: Negative - Urine Legionella Pneumophila Antigen: Negative - Urine Culture: No growth - Naris: MRSA not detected - f/u blood culture: preliminary states no growth MSK: - Hip/Pelvis X-ray (03/21/17): No acute displaced fracture or dislocation. - Morphine 2mg q6h prn for moderate pain - Neurontin 300mg PO TID DVT proph - SCDs GI proph - Pepcid 20mg PO daily, Florastor 250mg PO BID Pradhan for strict I/O's during acute illness PT/OT Code status - full code Case discussed with Dr. Jaime Agrawal PGY-1 <Martinez Sandoval M - Last Filed: 03/25/17 18:08> CCU Objective - Vital Signs / Intake & Output Vital Signs (Last 4 hours): Vital Signs Pulse Resp BP Pulse Ox 03/25/17 17:14 69 8 L 90/49 L 85 L 03/25/17 17:01 71 21 80/32 L 94 L 03/25/17 17:00 72 20 97 03/25/17 16:58 69 19 92/40 L 97 03/25/17 16:56 72 16 85/37 L 98 03/25/17 16:46 74 15 82/41 L 88 L 03/25/17 16:01 66 22 92/50 L 99 03/25/17 16:00 64 23 100 03/25/17 15:19 67 11 L 94/58 L 98 03/25/17 15:06 65 18 66/30 L 87 L 03/25/17 15:02 66 23 60/33 L 90 L 03/25/17 15:00 64 21 96 03/25/17 14:28 69 19 72/34 L 85 L 03/25/17 14:26 74 12 72/46 L 67 L Intake and Output (Last 8hrs): Intake & Output 03/25/17 03/25/17 03/25/17 06:59 14:59 22:59 Intake Total 440 460 600 Output Total 350 390 90 Balance 90 70 510 Weight 350 lb Intake: Intake, IV Amount 200 100 500 Right Distal Port PICC 100 500 Right Proximal Port PICC 200 Oral 240 360 100 Output: Urine 350 390 90 Urethral (Pradhan) 350 390 90 Emesis 0 Other: # Bowel Movements 0 - Medications Active Medications: Active Medications Generic Name Dose Route Start Last Admin Trade Name Freq PRN Reason Stop Dose Admin Albuterol/Ipratropium 3 ml 03/21/17 00:00 03/25/17 15:48 Duoneb 3 Mg/0.5 Mg (3 Ml) Ud INH 3 ml RQ4 RIK Administration Aspirin 81 mg 03/25/17 08:02 03/25/17 09:22 Ecotrin PO 81 mg DAILY RIK Administration Clonazepam 1 mg 03/20/17 23:45 03/25/17 09:21 Klonopin PO 1 mg Q12 RIK Administration Famotidine 20 mg 03/25/17 10:00 03/25/17 18:01 Pepcid PO 20 mg BID RIK Administration Furosemide 40 mg 03/21/17 16:45 03/25/17 09:21 Lasix PO 40 mg DAILY RIK Administration Gabapentin 300 mg 03/20/17 23:45 03/25/17 18:00 Neurontin PO 300 mg TID RIK Administration Heparin Sodium (Porcine) 5,000 units 03/24/17 06:00 03/25/17 05:29 Heparin SC 5,000 units Q8 RIK Administration Piperacillin Sod/Tazobactam Sod 4.5 gm in 100 mls @ 100 mls/hr 03/21/17 01:00 03/25/17 18:01 Zosyn 4.5 Gm Iv Premix IVPB 100 mls/hr Q6 RIK Administration Isosorbide Mononitrate 30 mg 03/25/17 10:00 03/25/17 09:21 Imdur PO 30 mg DAILY RIK Administration Losartan Potassium 50 mg 03/22/17 16:09 03/25/17 09:21 Cozaar PO 50 mg DAILY RIK Administration Metoprolol Tartrate 50 mg 03/22/17 22:00 03/25/17 09:21 Lopressor PO 50 mg Q12 RIK Administration Morphine Sulfate 2 mg 03/24/17 10:56 03/25/17 10:17 Morphine IVP 2 mg Q4H PRN Administration Pain, moderate (4-7) Nitroglycerin 0.4 mg 03/20/17 23:50 Nitrostat Sl Tab SL Q5M PRN Promethazine HCl/Codeine 5 ml 03/22/17 16:10 Phenergan/Codeine Oral Syrup PO Q4 PRN Cough Ranolazine 500 mg 03/24/17 10:00 03/25/17 18:00 Ranexa PO 500 mg BID RIK Administration Rosuvastatin Calcium 20 mg 03/21/17 22:00 03/24/17 22:01 Crestor PO 20 mg HS RIK Administration Saccharomyces Boulardii 250 mg 03/22/17 18:00 03/25/17 18:01 Florastor PO 250 mg BID RIK Administration Tiotropium [place] 18 mcg 03/26/17 08:00 Spiriva INH RQ24 RIK - Patient Studies Lab Studies: Microbiology Studies 03/20/17 22:00 Blood Culture - Preliminary Blood NO GROWTH AFTER 4 DAYS 03/20/17 21:00 Blood Culture - Preliminary Blood NO GROWTH AFTER 4 DAYS Lab Studies 03/25/17 03/25/17 03/25/17 Range/Units 15:11 06:34 06:34 WBC 9.2 (4.8-10.8) K/uL RBC 4.44 (3.80-5.20) Mil/uL Hgb 11.3 (11.0-16.0) g/dL Hct 36.8 (34.0-47.0) % MCV 82.8 (81.0-99.0) fL MCH 25.4 L (27.0-31.0) pg MCHC 30.7 L (33.0-37.0) g/dL RDW 16.6 H (11.5-14.5) % Plt Count 263 (130-400) K/uL MPV 9.0 (7.2-11.7) fL Neut % (Auto) 59.5 (50.0-75.0) % Lymph % (Auto) 22.7 (20.0-40.0) % Larue % (Auto) 7.6 (0.0-10.0) % Eos % (Auto) 9.2 H (0.0-4.0) % Baso % (Auto) 1.0 (0.0-2.0) % Neut # 5.5 (1.8-7.0) K/uL Lymph # 2.1 (1.0-4.3) K/uL Larue # 0.7 (0.0-0.8) K/uL Eos # 0.8 H (0.0-0.7) K/uL Baso # 0.1 (0.0-0.2) K/uL Sodium 139 (132-148) mmol/L Potassium 3.5 L (3.6-5.2) mmol/L Chloride 97 L (98-107) mmol/L Carbon Dioxide 32 H (22-30) mmol/L Anion Gap 14 (10-20) BUN 11 (7-17) mg/dL Creatinine 0.6 L (0.7-1.2) MG/DL Est GFR ( Amer) > 60 Est GFR (Non-Af Amer) > 60 Random Glucose 77 (65-105) mg/dL Calcium 7.8 L (8.6-10.4) mg/dl Phosphorus 3.4 (2.5-4.5) mg/dL Magnesium 1.8 (1.6-2.3) mg/dL Total Bilirubin 0.7 (0.2-1.3) mg/dL AST 25 (14-36) U/L ALT 22 (9-52) U/L Alkaline Phosphatase 52 (38-126) U/L Total Creatine Kinase 53 (30-135) U/L CK-MB (Mass) 0.68 (0.0-3.38) ng/mL Troponin I, Quant 9.1700 H* (0.00-0.120) ng/mL Total Protein 6.0 L (6.3-8.3) g/dL Albumin 2.8 L (3.5-5.0) g/dL Globulin 3.2 (2.2-3.9) gm/dL Albumin/Globulin Ratio 0.9 L (1.0-2.1) Urine Color Yellow (YELLOW) Urine Clarity Hazy (Clear) Urine pH 6.0 (5.0-8.0) Ur Specific [place] 1.014 (1.003-1.030) Urine Protein 1+ H (NEGATIVE) mg/dL Urine Glucose (UA) Normal (Normal) mg/dL Urine Ketones Negative (NEGATIVE) mg/dL Urine Blood 3+ H (NEGATIVE) Urine Nitrate Negative (NEGATIVE) Urine Bilirubin Negative (NEGATIVE) Urine Urobilinogen Normal (0.2-1.0) mg/dL Ur Leukocyte Esterase Neg (Negative) [place]/uL Urine WBC (Auto) 5 (0-5) /hpf Urine RBC (Auto) 709 H (0-3) /hpf Ur Squamous Epith Cells 1 (0-5) /hpf Calcium Oxalate Crystal Rare (<OCC) /hpf Hyaline Casts 3-5 H (0-2) /lpf Laboratory Results - last 24 hr 03/25/17 03/25/17 03/25/17 06:34 06:34 15:11 WBC 9.2 RBC 4.44 Hgb 11.3 Hct 36.8 MCV 82.8 MCH 25.4 L MCHC 30.7 L RDW 16.6 H Plt Count 263 MPV 9.0 Neut % (Auto) 59.5 Lymph % (Auto) 22.7 [place]ue % (Auto) 7.6 Eos % (Auto) 9.2 H Baso % (Auto) 1.0 Neut # 5.5 Lymph # 2.1 Larue # 0.7 Eos # 0.8 H Baso # 0.1 Sodium 139 Potassium 3.5 L Chloride 97 L Carbon Dioxide 32 H Anion Gap 14 BUN 11 Creatinine 0.6 L Est GFR ( Amer) > 60 Est GFR (Non-Af Amer) > 60 Random Glucose 77 Calcium 7.8 L Phosphorus 3.4 Magnesium 1.8 Total Bilirubin 0.7 AST 25 ALT 22 Alkaline Phosphatase 52 Total Creatine Kinase 53 CK-MB (Mass) 0.68 Troponin I, Quant 9.1700 H* Total Protein 6.0 L Albumin 2.8 L Globulin 3.2 Albumin/Globulin Ratio 0.9 L Urine Color Yellow Urine Clarity Hazy Urine pH 6.0 Ur Specific [place] 1.014 Urine Protein 1+ H Urine Glucose (UA) Normal Urine Ketones Negative Urine Blood 3+ H Urine Nitrate Negative Urine Bilirubin Negative Urine Urobilinogen Normal Ur Leukocyte Esterase Neg Urine WBC (Auto) 5 Urine RBC (Auto) 709 H Ur Squamous Epith Cells 1 Calcium Oxalate Crystal Rare Hyaline Casts 3-5 H Critical Care Progress Note - Nutrition Nutrition: Nutrition Category Date Time Status Heart Healthy Diet [DIET] Diets 03/21/17 Breakfast Active Attending/Attestation - Attestation I have personally seen and examined this patient.: Yes I have fully participated in the care of the patient.: Yes I have reviewed all pertinent clinical information: Yes Notes (Text): 03/25/17 18:08 Today: , March 25, 2017 The Patient was seen and examined at the bedside, Medical records reviewed, all clinical/lab/hemodynamic/radiographic data were reviewed and management issues were discussed and formulated, Events reviewed Pain issues, skin care, head of the bed elevation, glycemic control were addressed. Agree with above treatment plans as transcribed in Dr. Agrawal note
[2017-03-25] MEDS: Ranolazine 500 mg Extended Release Tablets PO SCH ×2 (09:21→18:00)
[2017-03-25] MEDS: Saccharomyces Boulardi 250 mg Cap PO SCH ×2 (09:21→18:01)
[2017-03-25 09:35] LABS: CK-MB 0.68 ng/mL (0.0-3.38)
--- NOTE | 2017-03-25 11:47 | CP.PCM.PN ---
Subjective - Date & Time of Evaluation Date of Evaluation: 03/25/17 Time of Evaluation: 10:00 - Subjective Subjective: patient seen and examined. tried using CPAP last night but had difficulty sleeping Still complaining of slight cough but denies shortnes of breath Denies fever chills Good urine output Objective - Vital Signs/Intake and Output Vital Signs (last 24 hours): Temp Pulse Resp BP Pulse Ox 98.7 F 69 21 149/70 94 L 03/24/17 20:00 03/25/17 07:01 03/25/17 07:01 03/25/17 09:21 03/25/17 07:01 Intake and Output: 03/25/17 03/25/17 06:59 18:59 Intake Total 540 Output Total 590 50 Balance -50 -50 - Medications Medications: Current Medications Albuterol/Ipratropium (Duoneb 3 Mg/0.5 Mg (3 Ml) Ud) 3 ml INH RQ4 [facility] Last Admin: 03/25/17 11:08 Dose: 3 ml Aspirin (Ecotrin) 81 mg PO DAILY [facility] Last Admin: 03/25/17 09:22 Dose: 81 mg Clonazepam (Klonopin) 1 mg PO Q12 [facility] Last Admin: 03/25/17 09:21 Dose: 1 mg Famotidine (Pepcid) 20 mg PO BID [facility] Last Admin: 03/25/17 09:22 Dose: 20 mg Furosemide (Lasix) 40 mg PO DAILY [facility] Last Admin: 03/25/17 09:21 Dose: 40 mg Gabapentin (Neurontin) 300 mg PO TID [facility] Last Admin: 03/25/17 10:16 Dose: 300 mg Heparin Sodium (Porcine) (Heparin) 5,000 units SC Q8 [facility] Last Admin: 03/25/17 05:29 Dose: 5,000 units Vancomycin/Sodium Chloride (Vancocin) 1 gm in 200 mls @ 133.333 mls/hr IVPB Q12H [facility] Stop: 03/26/17 10:01 Last Admin: 03/22/17 21:18 Dose: 133.333 mls/hr Piperacillin Sod/Tazobactam Sod (Zosyn 4.5 Gm Iv Premix) 4.5 gm in 100 mls @ 100 mls/hr IVPB Q6 [facility] Last Admin: 03/25/17 05:28 Dose: 100 mls/hr Isosorbide Mononitrate (Imdur) 30 mg PO DAILY [facility] Last Admin: 03/25/17 09:21 Dose: 30 mg Losartan Potassium (Cozaar) 50 mg PO DAILY [facility] Last Admin: 03/25/17 09:21 Dose: 50 mg Metoprolol Tartrate (Lopressor) 50 mg PO Q12 [facility] Last Admin: 03/25/17 09:21 Dose: 50 mg Morphine Sulfate (Morphine) 2 mg IVP Q4H PRN PRN Reason: Pain, moderate (4-7) Last Admin: 03/25/17 10:17 Dose: 2 mg Nitroglycerin (Nitrostat Sl Tab) 0.4 mg SL Q5M PRN Promethazine HCl/Codeine (Phenergan/Codeine Oral Syrup) 5 ml PO Q4 PRN PRN Reason: Cough Ranolazine (Ranexa) 500 mg PO BID [facility] Last Admin: 03/25/17 09:21 Dose: 500 mg Rosuvastatin Calcium (Crestor) 20 mg PO HS [facility] Last Admin: 03/24/17 22:01 Dose: 20 mg Saccharomyces Boulardii (Florastor) 250 mg PO BID [facility] Last Admin: 03/25/17 09:21 Dose: 250 mg Tiotropium [place] (Spiriva) 18 mcg INH RQ24 [facility] - Labs Labs: 03/25/17 06:34 03/25/17 06:34 PT 13.3 SECONDS (9.7-12.2) H 03/20/17 22:39 INR 1.2 03/20/17 22:39 APTT 68 SECONDS (21-34) H 03/23/17 06:51 - Constitutional Appears: No Acute Distress - Head Exam Head Exam: ATRAUMATIC, NORMOCEPHALIC - Eye Exam Eye Exam: Normal appearance - ENT Exam ENT Exam: Mucous Membranes Moist - Neck Exam Neck Exam: Full ROM, Normal Inspection - Respiratory Exam Respiratory Exam: Decreased Breath Sounds - Cardiovascular Exam Cardiovascular Exam: REGULAR RHYTHM - GI/Abdominal Exam GI & Abdominal Exam: Soft, Normal Bowel Sounds - Extremities Exam Extremities Exam: Pedal Edema Assessment and Plan (1) COPD (chronic obstructive pulmonary disease) Assessment & Plan: Continue nebulizer treatment cont spiriva Continue antibiotics for now Patient advised to use CPAP at night Status: Chronic (2) Non-STEMI (non-ST elevated myocardial infarction) Assessment & Plan: continue medical management Echo report noted Status: Acute (3) SIRS (systemic inflammatory response syndrome) Status: Acute (4) OPHELIA (obstructive sleep apnea) Status: Chronic
[2017-03-25] MEDS ORDERED: Sodium Chloride 0.9% 500 ML IV ONE (14:29)
[2017-03-25 15:35] LABS: SQUAMOUS EPITHIAL 1 /hpf (0-5); URINE BILIRUBIN NEGATIVE (NEGATIVE); URINE BLOOD 3+ (NEGATIVE); URINE CALCIUM OXALATE CRYSTALS RARE /hpf (<OCC); URINE CLARITY Hazy (Clear); URINE COLOR Yellow (YELLOW); URINE GLUCOSE (UA) NORMAL (Normal); URINE LEUKOCYTE ESTERASE NEG Leu/uL (Negative); URINE NITRATE NEGATIVE (NEGATIVE); URINE PROTEIN 1+ mg/dL (NEGATIVE); URINE UROBILINOGEN NORMAL mg/dL (0.2-1.0)
[2017-03-25] MEDS ORDERED: Oxycodone/Acetaminophen 5/325 mg Tab PO ONE ×2 (18:49→20:15)
[2017-03-26] MEDS: Albuterol-Ipratrop 3 mg / 0.5 (3 ml) UD INH SCH ×7 (00:07→23:32)
[2017-03-26] MEDS: Piperacill/Tazo 4.5gm in Dex 4.5 GM/100 ML BAG IVPB SCH ×3 (00:42→17:17)
--- NOTE | 2017-03-26 06:44 | CP.CCUPN ---
<NghiaDemetra SRenae - Last Filed: 03/26/17 09:50> CCU Subjective - Physician Review Subjective (Free Text): Patient seen and examined at bedside in the AM. Patient states she slept better overnight. Patient states she still has a minor headache but not as bad as yesterday. Patient states she is still coughing but cannot cough up the phlegm. Patient denies difficulty breathing, shortness of breath, chest pain, nausea, vomiting, or fever. 03/26/17 08:56 CCU Objective - Vital Signs / Intake & Output Vital Signs (Last 4 hours): Vital Signs Pulse Resp BP Pulse Ox 03/26/17 05:01 75 20 121/65 94 L 03/26/17 05:00 74 25 H 94 L 03/26/17 04:01 75 21 120/74 95 03/26/17 04:00 77 22 96 03/26/17 03:01 71 19 103/62 94 L 03/26/17 03:00 74 21 94 L Intake and Output (Last 8hrs): Intake & Output 03/25/17 03/25/17 03/26/17 14:59 22:59 06:59 Intake Total 460 1300 250 Output Total 390 435 220 Balance 70 865 30 Intake: Intake, IV Amount 100 600 100 Right Distal Port PICC 100 600 100 Oral 360 700 150 Output: Urine 390 435 220 Urethral (Pradhan) 390 435 220 Emesis 0 Other: # Bowel Movements 0 - Physical Exam Head: Positive for: Normocephalic Pupils: Positive for: PERRL Extroacular Muscles: Positive for: EOMI Mouth: Positive for: Moist Mucous Membranes Respiratory/Chest: Positive for: Wheezes, Rhonchi. Negative for: Respiratory Distress, Accessory Muscle Use Cardiovascular: Positive for: Regular Rate and Rhythm, Normal S1, S2. Negative for: Murmurs Abdomen: Positive for: Normal Bowel Sounds. Negative for: Tenderness, Distention, Guarding Lower Extremity: Negative for: Edema, CALF TENDERNESS Neurological: Positive for: Speech Normal Skin: Positive for: Warm, Normal Color Psychiatric: Positive for: Alert, Oriented x 3, Normal Affect, Normal Mood - Medications Active Medications: Active Medications Generic Name Dose Route Start Last Admin Trade Name Freq PRN Reason Stop Dose Admin Albuterol/Ipratropium 3 ml 03/21/17 00:00 03/26/17 03:44 Duoneb 3 Mg/0.5 Mg (3 Ml) Ud INH Not Given RQ4 [facility] Aspirin 81 mg 03/25/17 08:02 03/25/17 09:22 Ecotrin PO 81 mg DAILY RIK Administration Clonazepam 1 mg 03/20/17 23:45 03/25/17 22:50 Klonopin PO Not Given Q12 [facility] Famotidine 20 mg 03/25/17 10:00 03/25/17 18:01 Pepcid PO 20 mg BID RIK Administration Furosemide 40 mg 03/21/17 16:45 03/25/17 09:21 Lasix PO 40 mg DAILY RIK Administration Gabapentin 300 mg 03/20/17 23:45 03/25/17 18:00 Neurontin PO 300 mg TID [facility] Administration Heparin Sodium (Porcine) 5,000 units 03/24/17 06:00 03/26/17 05:43 Heparin SC 5,000 units Q8 RIK Administration Piperacillin Sod/Tazobactam Sod 4.5 gm in 100 mls @ 100 mls/hr 03/21/17 01:00 03/26/17 05:43 Zosyn 4.5 Gm Iv Premix IVPB 100 mls/hr Q6 [facility] Administration Isosorbide Mononitrate 30 mg 03/25/17 10:00 03/25/17 09:21 Imdur PO 30 mg DAILY [facility] Administration Losartan Potassium 50 mg 03/22/17 16:09 03/25/17 09:21 Cozaar PO 50 mg DAILY [facility] Administration Metoprolol Tartrate 50 mg 03/22/17 22:00 03/25/17 22:50 Lopressor PO Not Given Q12 [facility] Morphine Sulfate 2 mg 03/24/17 10:56 03/26/17 05:05 Morphine IVP 2 mg Q4H PRN Administration Pain, moderate (4-7) Nitroglycerin 0.4 mg 03/20/17 23:50 Nitrostat Sl Tab SL Q5M PRN Promethazine HCl/Codeine 5 ml 03/22/17 16:10 Phenergan/Codeine Oral Syrup PO Q4 PRN Cough Ranolazine 500 mg 03/24/17 10:00 03/25/17 18:00 Ranexa PO 500 mg BID [facility] Administration Rosuvastatin Calcium 20 mg 03/21/17 22:00 03/25/17 22:52 Crestor PO 20 mg HS RIK Administration Saccharomyces Boulardii 250 mg 03/22/17 18:00 03/25/17 18:01 Florastor PO 250 mg BID RIK Administration Tiotropium [place] 18 mcg 03/26/17 08:00 Spiriva INH RQ24 RIK - Patient Studies Lab Studies: Microbiology Studies 03/20/17 22:00 Blood Culture - Final Blood NO GROWTH AFTER 5 DAYS Gram Stain - Final 03/20/17 21:00 Blood Culture - Final Blood NO GROWTH AFTER 5 DAYS Gram Stain - Final TEST NOT PERFORMED Lab Studies 03/25/17 03/25/17 03/25/17 Range/Units 15:11 06:34 06:34 WBC 9.2 (4.8-10.8) K/uL RBC 4.44 (3.80-5.20) Mil/uL Hgb 11.3 (11.0-16.0) g/dL Hct 36.8 (34.0-47.0) % MCV 82.8 (81.0-99.0) fL MCH 25.4 L (27.0-31.0) pg MCHC 30.7 L (33.0-37.0) g/dL RDW 16.6 H (11.5-14.5) % Plt Count 263 (130-400) K/uL MPV 9.0 (7.2-11.7) fL Neut % (Auto) 59.5 (50.0-75.0) % Lymph % (Auto) 22.7 (20.0-40.0) % [place] % (Auto) 7.6 (0.0-10.0) % Eos % (Auto) 9.2 H (0.0-4.0) % Baso % (Auto) 1.0 (0.0-2.0) % Neut # 5.5 (1.8-7.0) K/uL Lymph # 2.1 (1.0-4.3) K/uL [place] # 0.7 (0.0-0.8) K/uL Eos # 0.8 H (0.0-0.7) K/uL Baso # 0.1 (0.0-0.2) K/uL Sodium 139 (132-148) mmol/L Potassium 3.5 L (3.6-5.2) mmol/L Chloride 97 L (98-107) mmol/L Carbon Dioxide 32 H (22-30) mmol/L Anion Gap 14 (10-20) BUN 11 (7-17) mg/dL Creatinine 0.6 L (0.7-1.2) MG/DL Est GFR ( Amer) > 60 Est GFR (Non-Af Amer) > 60 Random Glucose 77 (65-105) mg/dL Calcium 7.8 L (8.6-10.4) mg/dl Phosphorus 3.4 (2.5-4.5) mg/dL Magnesium 1.8 (1.6-2.3) mg/dL Total Bilirubin 0.7 (0.2-1.3) mg/dL AST 25 (14-36) U/L ALT 22 (9-52) U/L Alkaline Phosphatase 52 (38-126) U/L Total Creatine Kinase 53 (30-135) U/L CK-MB (Mass) 0.68 (0.0-3.38) ng/mL Troponin I, Quant 9.1700 H* (0.00-0.120) ng/mL Total Protein 6.0 L (6.3-8.3) g/dL Albumin 2.8 L (3.5-5.0) g/dL Globulin 3.2 (2.2-3.9) gm/dL Albumin/Globulin Ratio 0.9 L (1.0-2.1) Urine Color Yellow (YELLOW) Urine Clarity Hazy (Clear) Urine pH 6.0 (5.0-8.0) Ur Specific [place] 1.014 (1.003-1.030) Urine Protein 1+ H (NEGATIVE) mg/dL Urine Glucose (UA) Normal (Normal) mg/dL Urine Ketones Negative (NEGATIVE) mg/dL Urine Blood 3+ H (NEGATIVE) Urine Nitrate Negative (NEGATIVE) Urine Bilirubin Negative (NEGATIVE) Urine Urobilinogen Normal (0.2-1.0) mg/dL Ur Leukocyte Esterase Neg (Negative) Mendo[place]/uL Urine WBC (Auto) 5 (0-5) /hpf Urine RBC (Auto) 709 H (0-3) /hpf Ur Squamous Epith Cells 1 (0-5) /hpf Calcium Oxalate Crystal Rare (<OCC) /hpf Hyaline Casts 3-5 H (0-2) /lpf Laboratory Results - last 24 hr 03/25/17 03/25/17 03/25/17 06:34 06:34 15:11 WBC 9.2 RBC 4.44 Hgb 11.3 Hct 36.8 MCV 82.8 MCH 25.4 L MCHC 30.7 L RDW 16.6 H Plt Count 263 MPV 9.0 Neut % (Auto) 59.5 Lymph % (Auto) 22.7 [place] % (Auto) 7.6 Eos % (Auto) 9.2 H Baso % (Auto) 1.0 Neut # 5.5 Lymph # 2.1 [place] # 0.7 Eos # 0.8 H Baso # 0.1 Sodium 139 Potassium 3.5 L Chloride 97 L Carbon Dioxide 32 H Anion Gap 14 BUN 11 Creatinine 0.6 L Est GFR ( Amer) > 60 Est GFR (Non-Af Amer) > 60 Random Glucose 77 Calcium 7.8 L Phosphorus 3.4 Magnesium 1.8 Total Bilirubin 0.7 AST 25 ALT 22 Alkaline Phosphatase 52 Total Creatine Kinase 53 CK-MB (Mass) 0.68 Troponin I, Quant 9.1700 H* Total Protein 6.0 L Albumin 2.8 L Globulin 3.2 Albumin/Globulin Ratio 0.9 L Urine Color Yellow Urine Clarity Hazy Urine pH 6.0 Ur Specific [place] 1.014 Urine Protein 1+ H Urine Glucose (UA) Normal Urine Ketones Negative Urine Blood 3+ H Urine Nitrate Negative Urine Bilirubin Negative Urine Urobilinogen Normal Ur Leukocyte Esterase Neg Urine WBC (Auto) 5 Urine RBC (Auto) 709 H Ur Squamous Epith Cells 1 Calcium Oxalate Crystal Rare Hyaline Casts 3-5 H Review of Systems - Constitutional Constitutional: absent: Fever - EENT Eyes: absent: Blurred Vision Nose/Mouth/Throat: Sore Throat - Cardiovascular Cardiovascular: absent: Chest Pain, Lightheadedness, Palpitations - Respiratory Respiratory: Cough - Gastrointestinal Gastrointestinal: absent: Abdominal Pain, Constipation, Diarrhea Additional comments: rectal tube was removed 03/25 - Genitourinary Additional comments: pradhan is in place - Musculoskeletal Musculoskeletal: Back Pain, Muscle Weakness - Neurological Neurological: Headaches Critical Care Progress Note - Nutrition Nutrition: Nutrition Category Date Time Status Heart Healthy Diet [DIET] Diets 03/21/17 Breakfast Active Assessment/Plan - Assessment and Plan (Free Text) Assessment: This a 61-year-old female admitted 03/20/17 at night because she was not feeling well, she was not able to get out of bed. Plan: Neuro: - Alert and oriented 3 - Klonopin 1mg PO Q12 - Neurontin 300mg PO TID Pulm: - Chest X-ray (03/25/17): No interval pleural effusion. No consolidation suggested. - Chest X-ray (03/22/17): New right PICC catheter terminates at the level of the cav atrial junction. Mild congestive change. - Chest X-ray (03/20/17): No acute findings - CT of Chest (03/20/17): No CT evidence for acute pulmonary embolism, aortic aneurysm or aortic dissection. Confluent airspace disease in the posterior basal segment of the left lower lobe may represent move subsegmental atelectasis however pneumonia cannot be excluded. Also noted is moderate left hilar lymphadenopathy of uncertain etiology and could be reactive. Infectious or inflammatory in etiology. Follow-up after medical management is recommended to ensure complete resolution. - BiPap at night - Nasal Canula 2L - Phenergan/Codeine Oral Syrup 5ml PO Q4 PRN - Pulm Consult: Dr. Quiñones --> help appreciated CV: - Aspirin 325mg PO daily - Lasix 40mg PO daily - Cozaar 50mg PO daily - Metoprolol Tartrate 50mg PO Q12 - Crestor 20mg PO HS - Cardiology Consult: Dr. David --> help appreciated - Troponin (03/25): 9.17; Troponin (03/20): 7.41 and 6.05; Troponin (03/22): 15.6; Troponin (03/21): 14.20 Heme: - H/H (03/26): 10.7/34.9); H/H (03/25): 11.3/36.8; H/H (03/24/): 11.2/36; H/H (03/23): 11.2/35.6 Renal: - BUN/Cr: 9/0.7 - Monitor I/O GI: - Pepcid 20mg PO daily - Florastor 250mg PO BID - Rectal Tube removed 03/25/17 ID: - Zosyn 2.4gm in 100mls at 100mls/hr IVPB q6 (Active since 03/21/17) - Florastor 250mg PO BID - Vancomycin 1gm in 200mls at 1.33.33 mls/hr - Discontinued - C. Diff: Negative - Mycoplasm Pneumonia IgM: Negative - Urine Legionella Pneumophila Antigen: Negative - Urine Culture: No growth - Naris: MRSA not detected - Blood culture: No growth MSK: - Hip/Pelvis X-ray (03/21/17): No acute displaced fracture or dislocation. - Morphine 2mg q6h prn for moderate pain - Neurontin 300mg PO TID DVT proph - SCDs GI proph - Pepcid 20mg PO daily, Florastor 250mg PO BID Pradhan for strict I/O's during acute illness PT/OT Disposition: Transfered to Tele Code status - full code Case discussed with Dr. Ishmael Argawal PGY-1 <Howard Quiñones - Last Filed: 03/26/17 17:50> CCU Objective - Vital Signs / Intake & Output Vital Signs (Last 4 hours): Vital Signs Pulse Resp BP Pulse Ox 03/26/17 14:01 80 16 101/62 97 03/26/17 14:00 82 16 91 L Intake and Output (Last 8hrs): Intake & Output 03/26/17 03/26/17 03/26/17 06:59 14:59 22:59 Intake Total 900 750 Output Total 470 1160 Balance 430 -410 Intake: Intake, IV Amount 200 100 Right Distal Port PICC 200 100 Oral 700 650 Output: Urine 470 1160 Urethral (Pradhan) 470 1160 - Medications Active Medications: Active Medications Generic Name Dose Route Start Last Admin Trade Name Freq PRN Reason Stop Dose Admin Albuterol/Ipratropium 3 ml 03/21/17 00:00 03/26/17 16:45 Duoneb 3 Mg/0.5 Mg (3 Ml) Ud INH 3 ml RQ4 RIK Administration Aspirin 81 mg 03/25/17 08:02 03/26/17 09:51 Ecotrin PO 81 mg DAILY RIK Administration Clonazepam 1 mg 03/20/17 23:45 03/26/17 10:02 Klonopin PO 1 mg Q12 RIK Administration Famotidine 20 mg 03/25/17 10:00 03/26/17 17:18 Pepcid PO 20 mg BID RIK Administration Furosemide 40 mg 03/21/17 16:45 03/26/17 09:52 Lasix PO 40 mg DAILY RIK Administration Gabapentin 300 mg 03/20/17 23:45 03/26/17 17:17 Neurontin PO 300 mg TID RIK Administration Heparin Sodium (Porcine) 5,000 units 03/24/17 06:00 03/26/17 14:49 Heparin SC 5,000 units Q8 RIK Administration Piperacillin Sod/Tazobactam Sod 4.5 gm in 100 mls @ 100 mls/hr 03/21/17 01:00 03/26/17 17:17 Zosyn 4.5 Gm Iv Premix IVPB 100 mls/hr Q6 RIK Administration Isosorbide Mononitrate 30 mg 03/25/17 10:00 03/26/17 10:02 Imdur PO 30 mg DAILY RIK Administration Losartan Potassium 50 mg 03/22/17 16:09 03/26/17 09:52 Cozaar PO 50 mg DAILY RIK Administration Metoprolol Tartrate 50 mg 03/22/17 22:00 03/26/17 09:51 Lopressor PO 50 mg Q12 RKI Administration Morphine Sulfate 2 mg 03/24/17 10:56 03/26/17 14:32 Morphine IVP 2 mg Q4H PRN Administration Pain, moderate (4-7) Nitroglycerin 0.4 mg 03/20/17 23:50 Nitrostat Sl Tab SL Q5M PRN Promethazine HCl/Codeine 5 ml 03/22/17 16:10 03/26/17 10:02 Phenergan/Codeine Oral Syrup PO 5 ml Q4 PRN Administration Cough Ranolazine 500 mg 03/24/17 10:00 03/26/17 09:51 Ranexa PO 500 mg BID RIK Administration Rosuvastatin Calcium 20 mg 03/21/17 22:00 03/25/17 22:52 Crestor PO 20 mg HS RIK Administration Saccharomyces Boulardii 250 mg 03/22/17 18:00 03/26/17 17:17 Florastor PO 250 mg BID RIK Administration Tiotropium [place] 18 mcg 03/26/17 08:00 03/26/17 10:05 Spiriva INH 18 mcg RQ24 RIK Administration - Patient Studies Lab Studies: Microbiology Studies 03/20/17 22:00 Blood Culture - Final Blood NO GROWTH AFTER 5 DAYS Gram Stain - Final 03/20/17 21:00 Blood Culture - Final Blood NO GROWTH AFTER 5 DAYS Gram Stain - Final TEST NOT PERFORMED Lab Studies 03/26/17 03/26/17 Range/Units 06:45 06:45 WBC 11.0 H (4.8-10.8) K/uL RBC 4.21 (3.80-5.20) Mil/uL Hgb 10.7 L (11.0-16.0) g/dL Hct 34.9 (34.0-47.0) % MCV 83.0 (81.0-99.0) fL MCH 25.5 L (27.0-31.0) pg MCHC 30.7 L (33.0-37.0) g/dL RDW 16.6 H (11.5-14.5) % Plt Count 246 (130-400) K/uL MPV 8.8 (7.2-11.7) fL Neut % (Auto) 66.9 (50.0-75.0) % Lymph % (Auto) 16.7 L (20.0-40.0) % [place] % (Auto) 7.8 (0.0-10.0) % Eos % (Auto) 7.8 H (0.0-4.0) % Baso % (Auto) 0.8 (0.0-2.0) % Neut # 7.4 H (1.8-7.0) K/uL Lymph # 1.8 (1.0-4.3) K/uL [place] # 0.9 H (0.0-0.8) K/uL Eos # 0.9 H (0.0-0.7) K/uL Baso # 0.1 (0.0-0.2) K/uL Sodium 140 (132-148) mmol/L Potassium 3.7 (3.6-5.2) mmol/L Chloride 102 (98-107) mmol/L Carbon Dioxide 32 H (22-30) mmol/L Anion Gap 10 (10-20) BUN 9 (7-17) mg/dL Creatinine 0.7 (0.7-1.2) MG/DL Est GFR ( Amer) > 60 Est GFR (Non-Af Amer) > 60 Random Glucose 83 (65-105) mg/dL Calcium 8.5 L (8.6-10.4) mg/dl Phosphorus 3.1 (2.5-4.5) mg/dL Magnesium 2.1 (1.6-2.3) mg/dL Total Bilirubin 0.6 (0.2-1.3) mg/dL AST 23 (14-36) U/L ALT 18 (9-52) U/L Alkaline Phosphatase 56 (38-126) U/L Total Protein 6.2 L (6.3-8.3) g/dL Albumin 2.8 L (3.5-5.0) g/dL Globulin 3.4 (2.2-3.9) gm/dL Albumin/Globulin Ratio 0.8 L (1.0-2.1) Laboratory Results - last 24 hr 03/26/17 03/26/17 06:45 06:45 WBC 11.0 H RBC 4.21 Hgb 10.7 L Hct 34.9 MCV 83.0 MCH 25.5 L MCHC 30.7 L RDW 16.6 H Plt Count 246 MPV 8.8 Neut % (Auto) 66.9 Lymph % (Auto) 16.7 L [place] % (Auto) 7.8 Eos % (Auto) 7.8 H Baso % (Auto) 0.8 Neut # 7.4 H Lymph # 1.8 [place] # 0.9 H Eos # 0.9 H Baso # 0.1 Sodium 140 Potassium 3.7 Chloride 102 Carbon Dioxide 32 H Anion Gap 10 BUN 9 Creatinine 0.7 Est GFR ( Amer) > 60 Est GFR (Non-Af Amer) > 60 Random Glucose 83 Calcium 8.5 L Phosphorus 3.1 Magnesium 2.1 Total Bilirubin 0.6 AST 23 ALT 18 Alkaline Phosphatase 56 Total Protein 6.2 L Albumin 2.8 L Globulin 3.4 Albumin/Globulin Ratio 0.8 L Critical Care Progress Note - Nutrition Nutrition: Nutrition Category Date Time Status Heart Healthy Diet [DIET] Diets 03/21/17 Breakfast Active Assessment/Plan (1) COPD (chronic obstructive pulmonary disease) Current Visit: Yes Status: Chronic Comment: Continue neb treatment patient with long historyand weight loss Consider PET scan, a repeat CAT scan of the chest after 3 months (2) Non-STEMI (non-ST elevated myocardial infarction) Current Visit: Yes Status: Acute Comment: seen by cardiology and the plan is medical management Discontinue heparin Continue present treatment and add RENEXA, and imdur (3) SIRS (systemic inflammatory response syndrome) Current Visit: Yes Status: Acute Comment: CAT scan of the chest consistent with pneumonia/atelectasis Continue antibiotics and followup culture and senst (4) OPHELIA (obstructive sleep apnea) Current Visit: Yes Status: Chronic Comment: obstructive sleep apnea versus obesity hypoventilation syndrome BiPAP at night Attending/Attestation - Attestation I have personally seen and examined this patient.: Yes I have fully participated in the care of the patient.: Yes I have reviewed all pertinent clinical information: Yes Notes (Text): 03/26/17 17:49 Patient seen and examined in the intensive care unit. Case discussed with house staff in the morning. Breathing much improved Patient is awake and unresponsive Continue antibiotics Continue medical management for coronary artery disease Transfer patient to telemetry BiPAP as needed
[2017-03-26 07:01] LABS: BASO # 0.1 K/uL (0.0-0.2); BASO % 0.8 % (0.0-2.0); EOS # 0.9 K/uL (0.0-0.7); EOS % 7.8 % (0.0-4.0); HEMOGLOBIN 10.7 g/dL (11.0-16.0); LYMPH # 1.8 K/uL (1.0-4.3); LYMPH % 16.7 % (20.0-40.0); MEAN CORPUSCULAR HEMOGLOBIN 25.5 pg (27.0-31.0); MEAN CORPUSCULAR HGB CONC 30.7 g/dL (33.0-37.0); MEAN PLATELET VOLUME 8.8 fL (7.2-11.7); MONO # 0.9 K/uL (0.0-0.8); MONO % 7.8 % (0.0-10.0); NEUT # 7.4 K/uL (1.8-7.0); NEUT % 66.9 % (50.0-75.0); RBC 4.21 Mil/uL (3.80-5.20); RED CELL DISTRIBUTION WIDTH 16.6 % (11.5-14.5)
[2017-03-26 07:25] LABS: ALBUMIN 2.8 g/dL (3.5-5.0)
[2017-03-26 07:27] LABS: GFR AFRICAN-AMERICAN > 60; GFR NON-AFRICAN AMERICAN > 60
[2017-03-26 07:28] LABS: ALB/GLOB RATIO 0.8 (1.0-2.1); ALT/SGPT 18 U/L (9-52); AST/SGOT 23 U/L (14-36); BLOOD UREA NITROGEN 9 mg/dL (7-17)
[2017-03-26 07:29] LABS: CALCIUM 8.5 mg/dl (8.6-10.4); MAGNESIUM 2.1 mg/dL (1.6-2.3)
[2017-03-26] MEDS: Saccharomyces Boulardi 250 mg Cap PO SCH ×2 (09:51→17:17)
[2017-03-26] MEDS: Ranolazine 500 mg Extended Release Tablets PO SCH ×2 (09:51→18:44)
[2017-03-26] MEDS: Promethazine/Cod 6.25mg-10mg/5ml Syr UD PO PRN (10:02)
[2017-03-26] MEDS: Tiotropium 18 mcg Cap For Inhalation INH SCH (10:05)
--- NOTE | 2017-03-26 21:17 | CP.PCM.PN ---
<Hema Burch - Last Filed: 03/26/17 21:11> Subjective - Date & Time of Evaluation Date of Evaluation: 03/26/17 Time of Evaluation: 19:00 - Subjective Subjective: Patient seen and examined at bedside. Patient complains of mild headache. Patient complains of dry cough but says the cough is improving. She had no other complaints. She denies chest pain, shortness of breath, nausea, vomiting, fever, palpitatioins. Objective - Vital Signs/Intake and Output Vital Signs (last 24 hours): Temp Pulse Resp BP Pulse Ox 98.2 F 88 20 112/67 97 03/26/17 15:45 03/26/17 18:00 03/26/17 15:45 03/26/17 15:45 03/26/17 15:45 Intake and Output: 03/26/17 03/27/17 18:59 06:59 Intake Total 750 Output Total 1160 Balance -410 - Medications Medications: Current Medications Albuterol/Ipratropium (Duoneb 3 Mg/0.5 Mg (3 Ml) Ud) 3 ml INH RQ4 [facility] Last Admin: 03/26/17 19:57 Dose: 3 ml Aspirin (Ecotrin) 81 mg PO DAILY [facility] Last Admin: 03/26/17 09:51 Dose: 81 mg Clonazepam (Klonopin) 1 mg PO Q12 [facility] Last Admin: 03/26/17 10:02 Dose: 1 mg Famotidine (Pepcid) 20 mg PO BID [facility] Last Admin: 03/26/17 17:18 Dose: 20 mg Furosemide (Lasix) 40 mg PO DAILY [facility] Last Admin: 03/26/17 09:52 Dose: 40 mg Gabapentin (Neurontin) 300 mg PO TID [facility] Last Admin: 03/26/17 17:17 Dose: 300 mg Heparin Sodium (Porcine) (Heparin) 5,000 units SC Q8 [facility] Last Admin: 03/26/17 14:49 Dose: 5,000 units Piperacillin Sod/Tazobactam Sod (Zosyn 4.5 Gm Iv Premix) 4.5 gm in 100 mls @ 100 mls/hr IVPB Q6 [facility] Last Admin: 03/26/17 17:17 Dose: 100 mls/hr Isosorbide Mononitrate (Imdur) 30 mg PO DAILY [facility] Last Admin: 03/26/17 10:02 Dose: 30 mg Losartan Potassium (Cozaar) 50 mg PO DAILY [facility] Last Admin: 03/26/17 09:52 Dose: 50 mg Metoprolol Tartrate (Lopressor) 50 mg PO Q12 [facility] Last Admin: 03/26/17 09:51 Dose: 50 mg Morphine Sulfate (Morphine) 2 mg IVP Q4H PRN PRN Reason: Pain, moderate (4-7) Last Admin: 03/26/17 18:43 Dose: 2 mg Nitroglycerin (Nitrostat Sl Tab) 0.4 mg SL Q5M PRN Promethazine HCl/Codeine (Phenergan/Codeine Oral Syrup) 5 ml PO Q4 PRN PRN Reason: Cough Last Admin: 03/26/17 10:02 Dose: 5 ml Ranolazine (Ranexa) 500 mg PO BID [facility] Last Admin: 03/26/17 18:44 Dose: 500 mg Rosuvastatin Calcium (Crestor) 20 mg PO HS [facility] Last Admin: 03/25/17 22:52 Dose: 20 mg Saccharomyces Boulardii (Florastor) 250 mg PO BID [facility] Last Admin: 03/26/17 17:17 Dose: 250 mg Tiotropium [place] (Spiriva) 18 mcg INH RQ24 [facility] Last Admin: 03/26/17 10:05 Dose: 18 mcg - Labs Labs: 03/26/17 06:45 03/26/17 06:45 PT 13.3 SECONDS (9.7-12.2) H 03/20/17 22:39 INR 1.2 03/20/17 22:39 APTT 68 SECONDS (21-34) H 03/23/17 06:51 - Constitutional Appears: Well - Head Exam Head Exam: ATRAUMATIC, NORMAL INSPECTION, NORMOCEPHALIC - Eye Exam Eye Exam: EOMI, Normal appearance, PERRL - ENT Exam ENT Exam: Mucous Membranes Moist, Normal Exam - Neck Exam Neck Exam: Full ROM, Normal Inspection. absent: Lymphadenopathy - Respiratory Exam Respiratory Exam: Wheezes, NORMAL BREATHING PATTERN - Cardiovascular Exam Cardiovascular Exam: REGULAR RHYTHM, +S1, +S2. absent: Murmur - GI/Abdominal Exam GI & Abdominal Exam: Soft, Normal Bowel Sounds. absent: Tenderness - Rectal Exam Rectal Exam: Deferred - Extremities Exam Extremities Exam: Full ROM, Normal Capillary Refill, Normal Inspection. absent : Joint Swelling, Pedal Edema - Back Exam Back Exam: NORMAL INSPECTION - Neurological Exam Neurological Exam: Alert, Normal Gait, Oriented x3 - Psychiatric Exam Psychiatric exam: Normal Affect, Normal Mood - Skin Skin Exam: Dry, Intact, Normal Color, Warm Assessment and Plan - Assessment and Plan (Free Text) Assessment: Neuro: - Alert and oriented 3 - Klonopin 1mg PO Q12 - Neurontin 300mg PO TID Pulm: - Chest X-ray (03/25/17): No interval pleural effusion. No consolidation suggested. - Chest X-ray (03/22/17): New right PICC catheter terminates at the level of the cav atrial junction. Mild congestive change. - Chest X-ray (03/20/17): No acute findings - CT of Chest (03/20/17): No CT evidence for acute pulmonary embolism, aortic aneurysm or aortic dissection. [place] airspace disease in the posterior basal segment of the left lower lobe may represent move subsegmental atelectasis however pneumonia cannot be excluded. Also noted is moderate left hilar lymphadenopathy of uncertain etiology and could be reactive. Infectious or inflammatory in etiology. Follow-up after medical management is recommended to ensure complete resolution. - BiPap at night - Nasal Canula 2L - Phenergan/Codeine Oral Syrup 5ml PO Q4 PRN - Pulm Consult: Dr. Quiñones --> help appreciated CV: - Aspirin 325mg PO daily - Lasix 40mg PO daily - Cozaar 50mg PO daily - Metoprolol Tartrate 50mg PO Q12 - Crestor 20mg PO HS - Cardiology Consult: Dr. David --> help appreciated - Troponin (03/25): 9.17; Troponin (03/20): 7.41 and 6.05; Troponin (03/22): 15.6; Troponin (03/21): 14.20 Heme: - H/H (03/25): 11.3/36.8; H/H (03/24/): 11.2/36; H/H (03/23): 11.2/35.6 Renal: - BUN/Cr: 11/0.6 - Monitor I/O GI: - Pepcid 20mg PO daily - Florastor 250mg PO BID ID: 03/26: wbc 11 03/25: UA shows high RBC count and blood in urine - Zosyn 2.4gm in 100mls at 100mls/hr IVPB q6 (Active since 03/21/17) - Florastor 250mg PO BID - Vancomycin 1gm in 200mls at 1.33.33 mls/hr - Discontinued - C. Diff: Negative - Mycoplasm Pneumonia IgM: Negative - Urine Legionella Pneumophila Antigen: Negative - Urine Culture: No growth - Naris: MRSA not detected - f/u blood culture: preliminary states no growth MSK: - Hip/Pelvis X-ray (03/21/17): No acute displaced fracture or dislocation. - Morphine 2mg q6h prn for moderate pain - Neurontin 300mg PO TID DVT proph - SCDs GI proph - Pepcid 20mg PO daily, Florastor 250mg PO BID [place] for strict I/O's during acute illness PT/OT <Mita Pritchett V - Last Filed: 03/29/17 00:23> Objective - Vital Signs/Intake and Output Vital Signs (last 24 hours): Temp Pulse Resp BP Pulse Ox 98.2 F 72 20 115/71 99 03/28/17 15:00 03/28/17 15:00 03/28/17 15:00 03/28/17 17:24 03/28/17 15:00 Intake and Output: 03/28/17 03/29/17 18:59 06:59 Intake Total 320 Balance 320 - Medications Medications: Current Medications Albuterol Sulfate (Albuterol 0.083% Inhal Cee (2.5 Mg/3 Ml) Ud) 2.5 mg INH RQ6 PRN PRN Reason: Shortness of Breath Last Admin: 03/28/17 13:19 Dose: 2.5 mg Aspirin (Ecotrin) 81 mg PO DAILY [facility] Last Admin: 03/28/17 09:52 Dose: 81 mg Clonazepam (Klonopin) 1 mg PO Q12 [facility] Last Admin: 03/28/17 21:59 Dose: 1 mg Famotidine (Pepcid) 20 mg PO BID [facility] Last Admin: 03/28/17 19:04 Dose: 20 mg Furosemide (Lasix) 40 mg IVP DAILY [facility] Last Admin: 03/28/17 17:24 Dose: 40 mg Gabapentin (Neurontin) 300 mg PO TID [facility] Last Admin: 03/28/17 19:00 Dose: 300 mg Heparin Sodium (Porcine) (Heparin) 5,000 units SC Q8 [facility] Last Admin: 03/28/17 21:59 Dose: 5,000 units Piperacillin Sod/Tazobactam Sod (Zosyn 4.5 Gm Iv Premix) 4.5 gm in 100 mls @ 100 mls/hr IVPB Q6 [facility] Last Admin: 03/28/17 17:52 Dose: 100 mls/hr Vancomycin HCl 1 gm/ Sodium (Chloride) 250 mls @ 166.7 mls/hr IVPB Q12H [facility] Last Admin: 03/28/17 17:56 Dose: 166.7 mls/hr Isosorbide Mononitrate (Imdur) 30 mg PO DAILY [facility] Last Admin: 03/28/17 12:27 Dose: 30 mg Losartan Potassium (Cozaar) 50 mg PO DAILY [facility] Last Admin: 03/28/17 09:51 Dose: 50 mg Metoprolol Tartrate (Lopressor) 50 mg PO Q12 [facility] Last Admin: 03/28/17 21:59 Dose: Not Given Morphine Sulfate (Morphine) 2 mg IVP Q4H PRN PRN Reason: Pain, moderate (4-7) Last Admin: 03/28/17 17:16 Dose: 2 mg Nitroglycerin (Nitrostat Sl Tab) 0.4 mg SL Q5M PRN Promethazine HCl/Codeine (Phenergan/Codeine Oral Syrup) 5 ml PO Q4 PRN PRN Reason: Cough Last Admin: 03/27/17 10:41 Dose: 5 ml Ranolazine (Ranexa) 500 mg PO BID [facility] Last Admin: 03/28/17 19:00 Dose: 500 mg Rosuvastatin Calcium (Crestor) 20 mg PO HS [facility] Last Admin: 03/28/17 21:59 Dose: 20 mg Saccharomyces Boulardii (Florastor) 250 mg PO BID [facility] Last Admin: 03/28/17 19:00 Dose: 250 mg Tiotropium [place] (Spiriva) 18 mcg INH RQ24 [facility] Last Admin: 03/28/17 08:36 Dose: 18 mcg - Labs Labs: 03/27/17 06:33 03/27/17 06:33 PT 13.3 SECONDS (9.7-12.2) H 03/20/17 22:39 INR 1.2 03/20/17 22:39 APTT 68 SECONDS (21-34) H 03/23/17 06:51 Assessment and Plan (1) Non-STEMI (non-ST elevated myocardial infarction) Status: Acute (2) Morbidly obese Status: Chronic (3) SIRS (systemic inflammatory response syndrome) Status: Acute (4) HTN (hypertension) Status: Chronic (5) OPHELIA (obstructive sleep apnea) Status: Chronic (6) COPD (chronic obstructive pulmonary disease) Status: Chronic (7) Spinal stenosis Status: Chronic (8) Sacral wound Status: Acute (9) Prophylactic measure Status: Acute Attending/Attestation - Attestation I have personally seen and examined this patient.: Yes I have fully participated in the care of the patient.: Yes I have reviewed all pertinent clinical information, including history, physical exam and plan: Yes Notes (Text): This is late computer entry for 03/26/17. Patient seen, examined, and case discussed with day-time internet consultant. Patient medically stable to be transferred out from the ICU; located on [address] Discussed with social media executive for possible subacute rehab eval Leukocytosis present. Will continue to monitor. Assessment/Plan (1) Non-STEMI (non-ST elevated myocardial infarction) History of prior myocardial infarction Assessment & Plan: * Cardiology (Dr. David) on board-->help appreciated-->signed off 03/24/17 * Per cardiology note, bedside ECHO (03/22/17)--> Preserved LV function, no sig valve regurge, mild dilated RV with preserved RV function. Inferobasal and basal septum appear aneurysmal. Clinically no angina, arrythmia or worsening systolic dysfunction sx's. 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 No plans for c.cath. [facility] medical Rx for CAD. * Per cardiology, * ASA 81 mg PO daily * Plavix 75mg PO daily * Crestor 20mg PO qHS * Metoprolol 50mg PO BID (Hold SBP<100 and HR<60) * Losartan 50mg PO daily (Hold SBP<100) * Lasix 40mg PO daily (Hold SBP<100) * Ranexa 550mg PO bid * On heparin dvt ppx * Start Imdur 30mg PO daily (hold SBP<100 * [facility] pulmonary Rx for OPHELIA/Obesity * Encourage mobility * Pulmonary (Dr. Quiñones) on board-->help appreciated for COPD/OPHELIA Status: Acute (2) Morbidly obese Assessment & Plan: * Patient reports she has had unintentional weight loss over the past year * Field Underwriter referral: eating 75% meals * Physical therapy eval (03/25): PT PRESENTS WITH DECREASED FUCNTIONAL MOBILITY, DECREASED GAIT AND DECREASED TRANSFERS. PT ALSO EXHIBITS MUSCLE WEAKNESS AND ROM IMPAIRMENT. PT WILL BENEFIT FROM CONT PT TO [employer]IMISE FUNCTIONAL INDEPENDENCE -->Subacute rehab * Occupational eval (03/24): medically unstable * OOB Status: Chronic (3) SIRS (systemic inflammatory response syndrome) Assessment & Plan: Contributing Pneumonia and possible urinary tract infection Pneumonia * White count elevated * Chest xray (03/20/17): no acute findings * CT Chest (03/20/17): no ct evidence of acute pulmonary embolism, aortic aneurysm , or aortic dissection. [place] airspace disease in the posterio basal segment of the left lower lobe may represent subsegmental atelectasis however pneumonia cannot be excluded. Patient has moderate left hilar lymphadenopathy of uncertain etiology * Chest Xray (03/22/17) New right PICC catheter terminates at level of cavoatrial junction. Mild congestive change. * Order strep pneumoniae: pending, legionella: negative, and mycoplasma IGM: negative * off Zosyn 4.5 IV Q 6hours and held Vancomycin 1 gram IVQ 12hours * Florastor 250mg PO bid * Blood culture (03/20/17): no growth after 5 days X2 Urinary Tract Infection * UA (2nd): hematuria-->treat as urinary tract infection-->pending repeat urine culture * Urine culture (03/22/17): no growth Pressure ulcer * sacral wound: turn q 2hours, and wound care Status: Acute (4) HTN (hypertension) Assessment & Plan: * Metoprolol 50mg PO BID (Hold SBP<100 and HR<60) * Losartan 50mg PO daily (Hold SBP<100) * Lasix 40mg PO daily (Hold SBP<100) * Ranexa 500mg PO bid * Start Imdur 30mg PO daily Status: Chronic (5) OPHELIA (obstructive sleep apnea) Status: Chronic * Pulmonary (Dr. Quiñones) help appreciated * BIPAP * Educated about consistency of wearing the mask at bedside Status: Chronic (6) COPD (chronic obstructive pulmonary disease) Status: Chronic * Albuterol 3ml inhaled RQ4 * Start Spiriva 18mcg inhaled q daily * BIPAP prn Status: Chronic (7) History of Spinal stenosis Status: Chronic (8) History of Pressure Ulcer * Wound care * Turn Q 2hours Status: Chronic (9) Prophylactic measure Assessment & Plan: * Heparin 5000 units Q 8 hours * GI ppx: Pepcid 20mg PO BID * Wound care * TurnQ 2hours * Aspirin 81mg PO daily * PT/OT eval * OOB * Subacute rehab eval
[2017-03-27] MEDS: Piperacill/Tazo 4.5gm in Dex 4.5 GM/100 ML BAG IVPB SCH ×4 (00:28→17:38)
[2017-03-27] MEDS: Albuterol-Ipratrop 3 mg / 0.5 (3 ml) UD INH SCH ×5 (03:13→20:04)
[2017-03-27 06:50] LABS: BASO # 0.1 K/uL (0.0-0.2); BASO % 0.6 % (0.0-2.0); EOS # 0.7 K/uL (0.0-0.7); EOS % 5.4 % (0.0-4.0); LYMPH # 2.5 K/uL (1.0-4.3); LYMPH % 18.8 % (20.0-40.0); MEAN CELL VOLUME 82.8 fL (81.0-99.0); MEAN CORPUSCULAR HEMOGLOBIN 25.9 pg (27.0-31.0); MEAN CORPUSCULAR HGB CONC 31.2 g/dL (33.0-37.0); MEAN PLATELET VOLUME 8.4 fL (7.2-11.7); MONO # 1.1 K/uL (0.0-0.8); MONO % 8.6 % (0.0-10.0); NEUT # 8.9 K/uL (1.8-7.0); NEUT % 66.6 % (50.0-75.0); NRBC % 0.1 % (0.0-2.0); RBC 4.25 Mil/uL (3.80-5.20); WHITE BLOOD COUNT 13.4 K/uL (4.8-10.8)
[2017-03-27 07:01] LABS: ALBUMIN 2.9 g/dL (3.5-5.0)
[2017-03-27 07:03] LABS: GFR AFRICAN-AMERICAN > 60; GFR NON-AFRICAN AMERICAN > 60
[2017-03-27 07:04] LABS: ALB/GLOB RATIO 0.8 (1.0-2.1); ALT/SGPT 18 U/L (9-52); AST/SGOT 18 U/L (14-36); BLOOD UREA NITROGEN 9 mg/dL (7-17)
[2017-03-27 07:05] LABS: CALCIUM 8.4 mg/dl (8.6-10.4); MAGNESIUM 2.1 mg/dL (1.6-2.3)
[2017-03-27] MEDS: Tiotropium 18 mcg Cap For Inhalation INH SCH (07:58)
--- NOTE | 2017-03-27 08:03 | CP.PCM.PN ---
<Otis Arita - Last Filed: 03/27/17 20:52> Subjective - Date & Time of Evaluation Date of Evaluation: 03/27/17 Time of Evaluation: 08:00 - Subjective Subjective: Medicine Note- Hospitalist Service Patient was seen and examined at bedside. Patient reports no acute complaints at this time. She says her breathing is okay, still using nasal cannula. She says she has not been using the BIPAP because she did not know she needed to ask for it. She denies any chest pain. No events overnight, per nursing. Objective - Vital Signs/Intake and Output Vital Signs (last 24 hours): Temp Pulse Resp BP Pulse Ox 98.2 F 75 20 105/62 96 03/26/17 23:00 03/27/17 04:00 03/26/17 23:00 03/26/17 23:00 03/26/17 23:00 Intake and Output: 03/27/17 03/27/17 06:59 18:59 Intake Total 790 Output Total 1600 Balance -810 - Medications Medications: Current Medications Albuterol/Ipratropium (Duoneb 3 Mg/0.5 Mg (3 Ml) Ud) 3 ml INH RQ4 [facility] Last Admin: 03/27/17 07:57 Dose: 3 ml Aspirin (Ecotrin) 81 mg PO DAILY [facility] Last Admin: 03/26/17 09:51 Dose: 81 mg Clonazepam (Klonopin) 1 mg PO Q12 [facility] Last Admin: 03/26/17 21:42 Dose: 1 mg Famotidine (Pepcid) 20 mg PO BID [facility] Last Admin: 03/26/17 17:18 Dose: 20 mg Furosemide (Lasix) 40 mg PO DAILY [facility] Last Admin: 03/26/17 09:52 Dose: 40 mg Gabapentin (Neurontin) 300 mg PO TID [facility] Last Admin: 03/26/17 17:17 Dose: 300 mg Heparin Sodium (Porcine) (Heparin) 5,000 units SC Q8 [facility] Last Admin: 03/27/17 05:27 Dose: 5,000 units Piperacillin Sod/Tazobactam Sod (Zosyn 4.5 Gm Iv Premix) 4.5 gm in 100 mls @ 100 mls/hr IVPB Q6 [facility] Last Admin: 03/27/17 05:27 Dose: 100 mls/hr Isosorbide Mononitrate (Imdur) 30 mg PO DAILY [facility] Last Admin: 03/26/17 10:02 Dose: 30 mg Losartan Potassium (Cozaar) 50 mg PO DAILY [facility] Last Admin: 03/26/17 09:52 Dose: 50 mg Metoprolol Tartrate (Lopressor) 50 mg PO Q12 [facility] Last Admin: 03/26/17 22:12 Dose: 50 mg Morphine Sulfate (Morphine) 2 mg IVP Q4H PRN PRN Reason: Pain, moderate (4-7) Last Admin: 03/27/17 05:34 Dose: 2 mg Nitroglycerin (Nitrostat Sl Tab) 0.4 mg SL Q5M PRN Promethazine HCl/Codeine (Phenergan/Codeine Oral Syrup) 5 ml PO Q4 PRN PRN Reason: Cough Last Admin: 03/26/17 10:02 Dose: 5 ml Ranolazine (Ranexa) 500 mg PO BID [facility] Last Admin: 03/26/17 18:44 Dose: 500 mg Rosuvastatin Calcium (Crestor) 20 mg PO HS [facility] Last Admin: 03/26/17 21:42 Dose: 20 mg Saccharomyces Boulardii (Florastor) 250 mg PO BID [facility] Last Admin: 03/26/17 17:17 Dose: 250 mg Tiotropium [place] (Spiriva) 18 mcg INH RQ24 [facility] Last Admin: 03/27/17 07:58 Dose: 18 mcg - Labs Labs: 03/27/17 06:33 03/27/17 06:33 PT 13.3 SECONDS (9.7-12.2) H 03/20/17 22:39 INR 1.2 03/20/17 22:39 APTT 68 SECONDS (21-34) H 03/23/17 06:51 - Constitutional Appears: Non-toxic, No Acute Distress - Head Exam Head Exam: ATRAUMATIC, NORMAL INSPECTION, NORMOCEPHALIC - Eye Exam Pupil Exam: NORMAL ACCOMODATION, PERRL - ENT Exam ENT Exam: Mucous Membranes Moist - Respiratory Exam Respiratory Exam: Clear to Ausculation Bilateral, NORMAL BREATHING PATTERN. absent: Prolonged Expiratory Phase, Rales, Rhonchi, Wheezes - Cardiovascular Exam Cardiovascular Exam: REGULAR RHYTHM, +S1, +S2 - GI/Abdominal Exam GI & Abdominal Exam: Soft, Normal Bowel Sounds. absent: Tenderness, Diminished Bowel Sounds, Hernia, Hyperactive Bowel Sounds, Hypoactive Bowel Sounds, Pulsatile Mass Additional comments: obese abdomen - Extremities Exam Extremities Exam: Normal Capillary Refill, Normal Inspection - Neurological Exam Neurological Exam: Alert, Awake, Oriented x3 - Psychiatric Exam Psychiatric exam: Normal Affect, Normal Mood - Skin Skin Exam: Dry, Intact, Normal Color, Warm Assessment and Plan - Assessment and Plan (Free Text) Assessment: (1) Non-STEMI (non-ST elevated myocardial infarction) History of prior myocardial infarction Assessment & Plan: Cardiology (Dr. David) on board-->help appreciated-->signed off 03/24/17 Per cardiology note, bedside ECHO (03/22/17)--> Preserved LV function, no sig valve regurge, mild dilated RV with preserved RV function. Inferobasal and basal septum appear aneurysmal. Troponin 6.05, 7.41, 9.17 Hypokalemia: replaced Clinically no angina, arrythmia or worsening systolic dysfunction sx's. 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 No plans for c.cath. Optimize medical Rx for CAD. Per cardiology, * ASA 81 mg PO daily * Plavix 75mg PO daily * Crestor 20mg PO qHS * Metoprolol 50mg PO BID (Hold SBP<100 and HR<60) * Losartan 50mg PO daily (Hold SBP<100) * Lasix 40mg PO daily (Hold SBP<100) * Ranexa 550mg PO bid * On heparin dvt ppx * Continue Imdur 30mg PO daily (hold SBP<100 * Optimize pulmonary Rx for OPHELIA/Obesity * Encourage mobility Pulmonary (Dr. Quiñones) on board-->help appreciated Status: Acute (2) Morbidly obese Status: Chronic * Patient reports she has had unintentional weight loss over the past year * Entry Level Project Coordinator referral * Physical therapy eval * Occupational eval * OOB (3) SIRS (systemic inflammatory response syndrome) Assessment & Plan: * WBC trending up- 12.4 * Chest xray (03/20/17): no acute findings * CT Chest (03/20/17): no ct evidence of acute pulmonary embolism, aortic aneurysm , or aortic dissection. [place] airspace disease in the posterio basal segment of the left lower lobe may represent subsegmental atelectasis however pneumonia cannot be excluded. Patient has moderate left hilar lymphadenopathy of uncertain etiology * Chest Xray (03/22/17) New right PICC catheter terminates at level of cavoatrial junction. Mild congestive change. * Ordered for chest xray today * Zosyn 4.5 IV Q 6hours (Active since 03/21/17) * Vancomycin 1 gram IVQ 12hours (active since 03/21/17) held. * Florastor 250mg PO bid * Blood culture (03/20/17): no growth after 4 days X2 * UA (2nd): hematuria-->treat as urinary tract infection-->repeat today * Urine culture (03/22/17): no growth * MRSA (03/21/17) not detected * strep pneumoniae, legionella: negative, and mycoplasma IGM: negative * sacral wound: turn q 2hours, and wound care Status: Acute (4) HTN (hypertension) Assessment & Plan: * Metoprolol 50mg PO BID (Hold SBP<100 and HR<60) * Losartan 50mg PO daily (Hold SBP<100) * Lasix 40mg PO daily (Hold SBP<100) * Ranexa 500mg PO bid * Continue Imdur 30mg PO daily * Status: Chronic (5) OPHELIA (obstructive sleep apnea) Status: Chronic * BIPAP * Educated about consistency of wearing the mask at bedside (6) COPD (chronic obstructive pulmonary disease) Status: Chronic * Albuterol 3ml inhaled RQ4 * Continue Spiriva 18mcg inhaled q daily * BIPAP prn- Instructed patient to request Bipap every night * CXR- 03/25/17- Cardiomegaly and pulmonary vnenous congestion (Please see full report) (7) History of Spinal stenosis Status: Chronic (8) History of Pressure Ulcer * Wound care * Turn Q 2hours (9) Prophylactic measure Assessment & Plan: * Heparin 5000 units Q 8 hours * GI ppx: Pepcid 20mg PO BID * Wound care * TurnQ 2hours * Aspirin 81mg PO daily * PT/OT eval * OOB <Mita Pritchett V - Last Filed: 03/29/17 00:19> Objective - Vital Signs/Intake and Output Vital Signs (last 24 hours): Temp Pulse Resp BP Pulse Ox 98.2 F 72 20 115/71 99 03/28/17 15:00 03/28/17 15:00 03/28/17 15:00 03/28/17 17:24 03/28/17 15:00 Intake and Output: 03/28/17 03/29/17 18:59 06:59 Intake Total 320 Balance 320 - Medications Medications: Current Medications Albuterol Sulfate (Albuterol 0.083% Inhal Cee (2.5 Mg/3 Ml) Ud) 2.5 mg INH RQ6 PRN PRN Reason: Shortness of Breath Last Admin: 03/28/17 13:19 Dose: 2.5 mg Aspirin (Ecotrin) 81 mg PO DAILY [facility] Last Admin: 03/28/17 09:52 Dose: 81 mg Clonazepam (Klonopin) 1 mg PO Q12 [facility] Last Admin: 03/28/17 21:59 Dose: 1 mg Famotidine (Pepcid) 20 mg PO BID [facility] Last Admin: 03/28/17 19:04 Dose: 20 mg Furosemide (Lasix) 40 mg IVP DAILY [facility] Last Admin: 03/28/17 17:24 Dose: 40 mg Gabapentin (Neurontin) 300 mg PO TID [facility] Last Admin: 03/28/17 19:00 Dose: 300 mg Heparin Sodium (Porcine) (Heparin) 5,000 units SC Q8 [facility] Last Admin: 03/28/17 21:59 Dose: 5,000 units Piperacillin Sod/Tazobactam Sod (Zosyn 4.5 Gm Iv Premix) 4.5 gm in 100 mls @ 100 mls/hr IVPB Q6 [facility] Last Admin: 03/28/17 17:52 Dose: 100 mls/hr Vancomycin HCl 1 gm/ Sodium (Chloride) 250 mls @ 166.7 mls/hr IVPB Q12H [facility] Last Admin: 03/28/17 17:56 Dose: 166.7 mls/hr Isosorbide Mononitrate (Imdur) 30 mg PO DAILY [facility] Last Admin: 03/28/17 12:27 Dose: 30 mg Losartan Potassium (Cozaar) 50 mg PO DAILY [facility] Last Admin: 03/28/17 09:51 Dose: 50 mg Metoprolol Tartrate (Lopressor) 50 mg PO Q12 [facility] Last Admin: 03/28/17 21:59 Dose: Not Given Morphine Sulfate (Morphine) 2 mg IVP Q4H PRN PRN Reason: Pain, moderate (4-7) Last Admin: 03/28/17 17:16 Dose: 2 mg Nitroglycerin (Nitrostat Sl Tab) 0.4 mg SL Q5M PRN Promethazine HCl/Codeine (Phenergan/Codeine Oral Syrup) 5 ml PO Q4 PRN PRN Reason: Cough Last Admin: 03/27/17 10:41 Dose: 5 ml Ranolazine (Ranexa) 500 mg PO BID [facility] Last Admin: 03/28/17 19:00 Dose: 500 mg Rosuvastatin Calcium (Crestor) 20 mg PO HS [facility] Last Admin: 03/28/17 21:59 Dose: 20 mg Saccharomyces Boulardii (Florastor) 250 mg PO BID [facility] Last Admin: 03/28/17 19:00 Dose: 250 mg Tiotropium [place] (Spiriva) 18 mcg INH RQ24 [facility] Last Admin: 03/28/17 08:36 Dose: 18 mcg - Labs Labs: 03/27/17 06:33 03/27/17 06:33 PT 13.3 SECONDS (9.7-12.2) H 03/20/17 22:39 INR 1.2 03/20/17 22:39 APTT 68 SECONDS (21-34) H 03/23/17 06:51 Assessment and Plan (1) Non-STEMI (non-ST elevated myocardial infarction) Status: Acute (2) Morbidly obese Status: Chronic (3) SIRS (systemic inflammatory response syndrome) Status: Acute (4) HTN (hypertension) Status: Chronic (5) OPHELIA (obstructive sleep apnea) Status: Chronic (6) COPD (chronic obstructive pulmonary disease) Status: Chronic (7) Spinal stenosis Status: Chronic (8) Sacral wound Status: Acute (9) Prophylactic measure Status: Acute Attending/Attestation - Attestation I have personally seen and examined this patient.: Yes I have fully participated in the care of the patient.: Yes I have reviewed all pertinent clinical information, including history, physical exam and plan: Yes Notes (Text): This is late computer entry for 03/27/17. Patient seen, examined and case discussed with day-time resident. Patient reports she did not use her BIPAP overnight because she didnt know she had to request for it. Patient is pending subacute rehab eval. Patient ordered for Renal US given painless hematuria and former/current smoker. White count is slowly uptrending. Will continue to monitor Assessment/Plan (1) Non-STEMI (non-ST elevated myocardial infarction) History of prior myocardial infarction Assessment & Plan: * Cardiology (Dr. David) on board-->help appreciated-->signed off 03/24/17 * Per cardiology note, bedside ECHO (03/22/17)--> Preserved LV function, no sig valve regurge, mild dilated RV with preserved RV function. Inferobasal and basal septum appear aneurysmal. Clinically no angina, arrythmia or worsening systolic dysfunction sx's. 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 No plans for c.cath. Optimize medical Rx for CAD. * Per cardiology, * ASA 81 mg PO daily * Plavix 75mg PO daily * Crestor 20mg PO qHS * Metoprolol 50mg PO BID (Hold SBP<100 and HR<60) * Losartan 50mg PO daily (Hold SBP<100) * Lasix 40mg PO daily (Hold SBP<100) * Ranexa 550mg PO bid * On heparin dvt ppx * Start Imdur 30mg PO daily (hold SBP<100 * Optimize pulmonary Rx for OPHELIA/Obesity * Encourage mobility * Pulmonary (Dr. Quiñones) on board-->help appreciated for COPD/OPHELIA Status: Acute (2) Morbidly obese Assessment & Plan: * Patient reports she has had unintentional weight loss over the past year * Entry Level Project Coordinator referral: eating 75% meals * Physical therapy eval (03/25): PT PRESENTS WITH DECREASED FUCNTIONAL MOBILITY, DECREASED GAIT AND DECREASED TRANSFERS. PT ALSO EXHIBITS MUSCLE WEAKNESS AND ROM IMPAIRMENT. PT WILL BENEFIT FROM CONT PT TO MAXIMISE FUNCTIONAL INDEPENDENCE -->Subacute rehab * Occupational eval (03/24): medically unstable * OOB Status: Chronic (3) SIRS (systemic inflammatory response syndrome) Assessment & Plan: Contributing Pneumonia and possible urinary tract infection Pneumonia * White count uptrending * Chest xray (03/20/17): no acute findings * CT Chest (03/20/17): no ct evidence of acute pulmonary embolism, aortic aneurysm , or aortic dissection. [place] airspace disease in the posterio basal segment of the left lower lobe may represent subsegmental atelectasis however pneumonia cannot be excluded. Patient has moderate left hilar lymphadenopathy of uncertain etiology * Chest Xray (03/22/17) New right PICC catheter terminates at level of cavoatrial junction. Mild congestive change. * Order strep pneumoniae: pending, legionella: negative, and mycoplasma IGM: negative * off Zosyn 4.5 IV Q 6hours and held Vancomycin 1 gram IVQ 12hours * Florastor 250mg PO bid * Blood culture (03/20/17): no growth after 5 days Urinary Tract Infection * UA (2nd): hematuria-->treat as urinary tract infection-->repeat 03/27 Urine culture * Urine culture (03/22/17): no growth * Bladder US (03/28/17): limited study; increased echogenicity of the bilateral renal cortices suggestive for medical renal disease. Prominent multiple bilateral scattered renal calculi without evidence of gross hydronephrosis; pradhan catheter in the urinary bladder Pressure ulcer * sacral wound: turn q 2hours, and wound care Status: Acute (4) HTN (hypertension) Assessment & Plan: * Metoprolol 50mg PO BID (Hold SBP<100 and HR<60) * Losartan 50mg PO daily (Hold SBP<100) * Lasix 40mg PO daily (Hold SBP<100) * Ranexa 500mg PO bid * Start Imdur 30mg PO daily Status: Chronic (5) OPHELIA (obstructive sleep apnea) Status: Chronic * Pulmonary (Dr. Quiñones) help appreciated * BIPAP * Educated about consistency of wearing the mask at bedside Status: Chronic (6) COPD (chronic obstructive pulmonary disease) Status: Chronic * Albuterol 3ml inhaled RQ4 * Start Spiriva 18mcg inhaled q daily * BIPAP prn * Repeat chest xray today Status: Chronic (7) History of Spinal stenosis Status: Chronic (8) History of Pressure Ulcer * Wound care * Turn Q 2hours Status: Chronic (9) Prophylactic measure Assessment & Plan: * Heparin 5000 units Q 8 hours * GI ppx: Pepcid 20mg PO BID * Wound care * TurnQ 2hours * Aspirin 81mg PO daily * PT/OT eval * OOB * Subacute rehab eval
[2017-03-27] MEDS: Saccharomyces Boulardi 250 mg Cap PO SCH ×2 (10:23→17:32)
[2017-03-27] MEDS: Promethazine/Cod 6.25mg-10mg/5ml Syr UD PO PRN (10:41)
[2017-03-27] MEDS: Ranolazine 500 mg Extended Release Tablets PO SCH ×2 (10:41→21:30)
[2017-03-28] MEDS: Piperacill/Tazo 4.5gm in Dex 4.5 GM/100 ML BAG IVPB SCH ×4 (00:18→17:52)
[2017-03-28] MEDS: Albuterol-Ipratrop 3 mg / 0.5 (3 ml) UD INH SCH ×3 (01:00→08:36)
[2017-03-28] MEDS: Tiotropium 18 mcg Cap For Inhalation INH SCH (08:36)
[2017-03-28] MEDS: Ranolazine 500 mg Extended Release Tablets PO SCH ×2 (09:49→19:00)
[2017-03-28] MEDS: Saccharomyces Boulardi 250 mg Cap PO SCH ×2 (09:51→19:00)
[2017-03-28] MEDS: Albuterol 0.083% Inhal Sol (2.5 mg/3 mL) UD INH PRN (13:19)
--- NOTE | 2017-03-28 13:40 | RAD ---
HISTORY: congestion COMPARISON: 03/20/2017 FINDINGS: LUNGS: Right PICC line with tip extending to the cavoatrial junction. Moderate venous congestion. Patchy left basilar airspace opacity. PLEURA: As above. CARDIOVASCULAR: Enlarged ectatic aorta. Cardiomegaly. OSSEOUS STRUCTURES: Degenerative changes in the spine and shoulders. VISUALIZED UPPER ABDOMEN: Normal. OTHER FINDINGS: None. IMPRESSION: Right PICC line with tip extending to the cavoatrial junction. Moderate venous congestion. Patchy left basilar airspace opacity.Enlarged ectatic aorta. Cardiomegaly.
--- NOTE | 2017-03-28 13:55 | US ---
Renal ultrasound History: Hematuria. Comparison CT scan dated 02/01/2016 Technique: Real-time sonography was performed through the kidneys. Findings: Right kidney: 14.0 x 5.2 x 6.1 centimeters. Increased echogenicity of the renal cortex suggestive for medical renal disease. No hydronephrosis. Multiple scattered calculi ; for example, in the upper pole measuring up to 9 millimeters and in the lower pole measuring up to 8 millimeters. Left kidney: 13.7 x 5.1 x 5.4 centimeters. Increased echogenicity of the renal cortex suggestive for medical renal disease. No hydronephrosis. Multiple scattered calculi ; for example, in the midpole measuring up to 6 and 9 millimeters and in the upper pole measuring up to 6 millimeters. Suboptimal visualization of the aorta. Colmenares catheter seen in the urinary bladder. Underdistended urinary bladder. This limits evaluation. Impression: Technically limited study secondary to large patient body habitus. Increased echogenicity of the bilateral renal cortices suggestive for medical renal disease. Prominent multiple bilateral scattered renal calculi without evidence of gross hydronephrosis. Limited visualization the aorta. Colmenares catheter in the urinary bladder.
--- NOTE | 2017-03-28 16:09 | CP.PCM.PN ---
<Juan JOtis - Last Filed: 03/28/17 16:29> Subjective - Date & Time of Evaluation Date of Evaluation: 03/28/17 Time of Evaluation: 08:30 - Subjective Subjective: Medicine Note- Hospitalist Service Patient was seen and examined at bedside. Patient reports she is still coughing a lot, resulting in intermittent back pain. Otherwise patient has no acute complaints. Patient state she wore her BiPAP overnight, well tolerated.No events overnight. Objective - Vital Signs/Intake and Output Vital Signs (last 24 hours): Temp Pulse Resp BP Pulse Ox 98.6 F 81 20 141/66 99 03/28/17 09:19 03/28/17 09:19 03/28/17 09:19 03/28/17 09:51 03/28/17 09:19 Intake and Output: 03/28/17 03/28/17 06:59 18:59 Intake Total 320 Output Total 2300 Balance -2300 320 - Medications Medications: Current Medications Albuterol Sulfate (Albuterol 0.083% Inhal Cee (2.5 Mg/3 Ml) Ud) 2.5 mg INH RQ6 PRN PRN Reason: Shortness of Breath Last Admin: 03/28/17 13:19 Dose: 2.5 mg Aspirin (Ecotrin) 81 mg PO DAILY [facility] Last Admin: 03/28/17 09:52 Dose: 81 mg Clonazepam (Klonopin) 1 mg PO Q12 [facility] Last Admin: 03/28/17 09:49 Dose: 1 mg Famotidine (Pepcid) 20 mg PO BID [facility] Last Admin: 03/28/17 09:52 Dose: 20 mg Furosemide (Lasix) 40 mg PO DAILY [facility] Last Admin: 03/28/17 09:51 Dose: 40 mg Gabapentin (Neurontin) 300 mg PO TID [facility] Last Admin: 03/28/17 15:32 Dose: Not Given Heparin Sodium (Porcine) (Heparin) 5,000 units SC Q8 [facility] Last Admin: 03/28/17 13:42 Dose: 5,000 units Piperacillin Sod/Tazobactam Sod (Zosyn 4.5 Gm Iv Premix) 4.5 gm in 100 mls @ 100 mls/hr IVPB Q6 [facility] Last Admin: 03/28/17 12:19 Dose: 100 mls/hr Vancomycin HCl 1 gm/ Sodium (Chloride) 250 mls @ 166.7 mls/hr IVPB Q24H [facility] Isosorbide Mononitrate (Imdur) 30 mg PO DAILY [facility] Last Admin: 03/28/17 12:27 Dose: 30 mg Losartan Potassium (Cozaar) 50 mg PO DAILY [facility] Last Admin: 03/28/17 09:51 Dose: 50 mg Metoprolol Tartrate (Lopressor) 50 mg PO Q12 [facility] Last Admin: 03/28/17 09:51 Dose: 50 mg Morphine Sulfate (Morphine) 2 mg IVP Q4H PRN PRN Reason: Pain, moderate (4-7) Last Admin: 03/28/17 12:23 Dose: 2 mg Nitroglycerin (Nitrostat Sl Tab) 0.4 mg SL Q5M PRN Promethazine HCl/Codeine (Phenergan/Codeine Oral Syrup) 5 ml PO Q4 PRN PRN Reason: Cough Last Admin: 03/27/17 10:41 Dose: 5 ml Ranolazine (Ranexa) 500 mg PO BID [facility] Last Admin: 03/28/17 09:49 Dose: 500 mg Rosuvastatin Calcium (Crestor) 20 mg PO HS [facility] Last Admin: 03/27/17 21:30 Dose: 20 mg Saccharomyces Boulardii (Florastor) 250 mg PO BID [facility] Last Admin: 03/28/17 09:51 Dose: 250 mg Tiotropium [place] (Spiriva) 18 mcg INH RQ24 [facility] Last Admin: 03/28/17 08:36 Dose: 18 mcg - Labs Labs: 03/27/17 06:33 03/27/17 06:33 PT 13.3 SECONDS (9.7-12.2) H 03/20/17 22:39 INR 1.2 03/20/17 22:39 APTT 68 SECONDS (21-34) H 03/23/17 06:51 - Constitutional Appears: Non-toxic, No Acute Distress - Head Exam Head Exam: ATRAUMATIC, NORMAL INSPECTION, NORMOCEPHALIC - Eye Exam Pupil Exam: NORMAL ACCOMODATION, PERRL - ENT Exam ENT Exam: Mucous Membranes Moist - Respiratory Exam Respiratory Exam: Decreased Breath Sounds, Rhonchi, NORMAL BREATHING PATTERN. absent: Prolonged Expiratory Phase, Rales, Wheezes - Cardiovascular Exam Cardiovascular Exam: REGULAR RHYTHM, +S1, +S2 - GI/Abdominal Exam GI & Abdominal Exam: Soft, Normal Bowel Sounds. absent: Tenderness, Diminished Bowel Sounds, Hypoactive Bowel Sounds - Extremities Exam Extremities Exam: Normal Capillary Refill, Pedal Edema - Neurological Exam Neurological Exam: Alert, Awake, Oriented x3 - Psychiatric Exam Psychiatric exam: Normal Affect, Normal Mood - Skin Skin Exam: Dry, Intact, Normal Color, Warm Assessment and Plan - Assessment and Plan (Free Text) Assessment: (1) Non-STEMI (non-ST elevated myocardial infarction) History of prior myocardial infarction Assessment & Plan: Cardiology (Dr. David) on board-->help appreciated-->signed off 03/24/17 Per cardiology note, bedside ECHO (03/22/17)--> Preserved LV function, no sig valve regurge, mild dilated RV with preserved RV function. Inferobasal and basal septum appear aneurysmal. Troponin 6.05, 7.41, 9.17 Hypokalemia: replaced Clinically no angina, arrythmia or worsening systolic dysfunction sx's. 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 No plans for c.cath. Optimize medical Rx for CAD. Per cardiology, * ASA 81 mg PO daily * Plavix 75mg PO daily * Crestor 20mg PO qHS * Metoprolol 50mg PO BID (Hold SBP<100 and HR<60) * Losartan 50mg PO daily (Hold SBP<100) * Lasix changed to 40mg IVP Daily * Ranexa 550mg PO bid * On heparin dvt ppx * Continue Imdur 30mg PO daily (hold SBP<100 * Optimize pulmonary Rx for OPHELIA/Obesity * Encourage mobility Pulmonary (Dr. Quiñones) on board-->help appreciated Status: Acute (2) Morbidly obese Status: Chronic * Patient reports she has had unintentional weight loss over the past year * Environmental Compliance Inspector referral * Physical therapy eval * Occupational eval * OOB (3) SIRS (systemic inflammatory response syndrome) Assessment & Plan: * WBC trending up- 13.4 * Chest xray (03/20/17): no acute findings * CT Chest (03/20/17): no ct evidence of acute pulmonary embolism, aortic aneurysm , or aortic dissection. [place] airspace disease in the posterio basal segment of the left lower lobe may represent subsegmental atelectasis however pneumonia cannot be excluded. Patient has moderate left hilar lymphadenopathy of uncertain etiology * Chest Xray (03/22/17) New right PICC catheter terminates at level of cavoatrial junction. Mild congestive change. * CXR 03/28/17-Moderate venous congestion. Patchy left basilar airspace opacity. Enlarged ectactic aorta. Cardiomegaly. * Zosyn 4.5 IV Q 6hours (Active since 03/21/17) * Vancomycin 1 gram IVQ 12hours started on 03/28/17 * Florastor 250mg PO bid * Blood culture (03/20/17): no growth after 4 days X2 * UA (2nd): hematuria-->treat as urinary tract infection-->repeat today * Urine culture (03/22/17): no growth * MRSA (03/21/17) not detected * strep pneumoniae, legionella: negative, and mycoplasma IGM: negative * sacral wound: turn q 2hours, and wound care Status: Acute (4) Pneumonia Assessment & Plan: * CXR 03/28/17-Moderate venous congestion. Patchy left basilar airspace opacity. Enlarged ectactic aorta. Cardiomegaly. * Zosyn 4.5 IV Q 6hours (Active since 03/21/17) * Vancomycin 1 gram IVQ 12hours started on 03/28/17 * Florastor 250mg PO bid * Afebrile * WBC- 13.4 (5) HTN (hypertension) Assessment & Plan: * Metoprolol 50mg PO BID (Hold SBP<100 and HR<60) * Losartan 50mg PO daily (Hold SBP<100) * Lasix 40mg PO daily (Hold SBP<100) * Ranexa 500mg PO bid * Continue Imdur 30mg PO daily * Status: Chronic (6) OPHELIA (obstructive sleep apnea) Status: Chronic * BIPAP * Educated about consistency of wearing the mask at bedside (7) COPD (chronic obstructive pulmonary disease) Status: Chronic * Albuterol 3ml inhaled RQ4 * Continue Spiriva 18mcg inhaled q daily * BIPAP prn- Instructed patient to request Bipap every night * CXR- 03/25/17- Cardiomegaly and pulmonary vnenous congestion (Please see full report) (8) History of Spinal stenosis Status: Chronic * Klonopin 1mg PO Q12h * Gabapentin 300mg PO TID (9) History of Pressure Ulcer * Wound care * Turn Q 2hours (10) Microscopic Hematuria * Multiple UAs with microscopic hematuria * Bladder/ Renal Ultrasound- 03/28/17- Multiple bilateral scattered renal caluli without evidence of gross hydronephrosis. Bilateral medical renal disease ( Please see full report) (11) Prophylactic measure Assessment & Plan: * Heparin 5000 units Q 8 hours * GI ppx: Pepcid 20mg PO BID * Wound care * TurnQ 2hours * Aspirin 81mg PO daily * PT/OT eval * OOB Disposition: Will need new PT/OT evaluation for MELONY <Mita Pritchett V - Last Filed: 03/29/17 00:16> Objective - Vital Signs/Intake and Output Vital Signs (last 24 hours): Temp Pulse Resp BP Pulse Ox 98.2 F 72 20 115/71 99 03/28/17 15:00 03/28/17 15:00 03/28/17 15:00 03/28/17 17:24 03/28/17 15:00 Intake and Output: 03/28/17 03/28/17 06:59 18:59 Intake Total 320 Output Total 2300 Balance -2300 320 - Medications Medications: Current Medications Albuterol Sulfate (Albuterol 0.083% Inhal Cee (2.5 Mg/3 Ml) Ud) 2.5 mg INH RQ6 PRN PRN Reason: Shortness of Breath Last Admin: 03/28/17 13:19 Dose: 2.5 mg Aspirin (Ecotrin) 81 mg PO DAILY [facility] Last Admin: 03/28/17 09:52 Dose: 81 mg Clonazepam (Klonopin) 1 mg PO Q12 [facility] Last Admin: 03/28/17 09:49 Dose: 1 mg Famotidine (Pepcid) 20 mg PO BID [facility] Last Admin: 03/28/17 09:52 Dose: 20 mg Furosemide (Lasix) 40 mg IVP DAILY [facility] Last Admin: 03/28/17 17:24 Dose: 40 mg Gabapentin (Neurontin) 300 mg PO TID [facility] Last Admin: 03/28/17 15:32 Dose: Not Given Heparin Sodium (Porcine) (Heparin) 5,000 units SC Q8 [facility] Last Admin: 03/28/17 13:42 Dose: 5,000 units Piperacillin Sod/Tazobactam Sod (Zosyn 4.5 Gm Iv Premix) 4.5 gm in 100 mls @ 100 mls/hr IVPB Q6 [facility] Last Admin: 03/28/17 12:19 Dose: 100 mls/hr Vancomycin HCl 1 gm/ Sodium (Chloride) 250 mls @ 166.7 mls/hr IVPB Q12H [facility] Isosorbide Mononitrate (Imdur) 30 mg PO DAILY [facility] Last Admin: 03/28/17 12:27 Dose: 30 mg Losartan Potassium (Cozaar) 50 mg PO DAILY [facility] Last Admin: 03/28/17 09:51 Dose: 50 mg Metoprolol Tartrate (Lopressor) 50 mg PO Q12 [facility] Last Admin: 03/28/17 09:51 Dose: 50 mg Morphine Sulfate (Morphine) 2 mg IVP Q4H PRN PRN Reason: Pain, moderate (4-7) Last Admin: 03/28/17 17:16 Dose: 2 mg Nitroglycerin (Nitrostat Sl Tab) 0.4 mg SL Q5M PRN Promethazine HCl/Codeine (Phenergan/Codeine Oral Syrup) 5 ml PO Q4 PRN PRN Reason: Cough Last Admin: 03/27/17 10:41 Dose: 5 ml Ranolazine (Ranexa) 500 mg PO BID [facility] Last Admin: 03/28/17 09:49 Dose: 500 mg Rosuvastatin Calcium (Crestor) 20 mg PO HS [facility] Last Admin: 03/27/17 21:30 Dose: 20 mg Saccharomyces Boulardii (Florastor) 250 mg PO BID [facility] Last Admin: 03/28/17 09:51 Dose: 250 mg Tiotropium [place] (Spiriva) 18 mcg INH RQ24 [facility] Last Admin: 03/28/17 08:36 Dose: 18 mcg - Labs Labs: 03/27/17 06:33 03/27/17 06:33 PT 13.3 SECONDS (9.7-12.2) H 03/20/17 22:39 INR 1.2 03/20/17 22:39 APTT 68 SECONDS (21-34) H 03/23/17 06:51 Assessment and Plan (1) Non-STEMI (non-ST elevated myocardial infarction) Status: Acute (2) Morbidly obese Status: Chronic (3) SIRS (systemic inflammatory response syndrome) Status: Acute (4) HTN (hypertension) Status: Chronic (5) OPHELIA (obstructive sleep apnea) Status: Chronic (6) COPD (chronic obstructive pulmonary disease) Status: Chronic (7) Spinal stenosis Status: Chronic (8) Sacral wound Status: Acute (9) Prophylactic measure Status: Acute Attending/Attestation - Attestation I have personally seen and examined this patient.: Yes I have fully participated in the care of the patient.: Yes I have reviewed all pertinent clinical information, including history, physical exam and plan: Yes Notes (Text): This is late computer entry for 03/28/17. Patient seen, examined and case discussed with day-time resident. Patient reports she is compliant on her Bipap. Patient has audible congestion inspite of nebulizer treatment; repeat chest xray today shows pneumonia. Patient restarted on IV Abx to cover for pneumonia. Patient's Bladder US shows renal calculi. Patient is urinating. Patient is pending subacute rehab eval. patient ordered for doppler r/o DVT given leukocytosis f/u Pulmonary consult for further recommendations f/u social and case management regarding subacute rehab placement. Assessment/Plan (1) Non-STEMI (non-ST elevated myocardial infarction) History of prior myocardial infarction Assessment & Plan: * Cardiology (Dr. David) on board-->help appreciated-->signed off 03/24/17 * Per cardiology note, bedside ECHO (03/22/17)--> Preserved LV function, no sig valve regurge, mild dilated RV with preserved RV function. Inferobasal and basal septum appear aneurysmal. Clinically no angina, arrythmia or worsening systolic dysfunction sx's. 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 No plans for c.cath. Optimize medical Rx for CAD. * Per cardiology, * ASA 81 mg PO daily * Plavix 75mg PO daily * Crestor 20mg PO qHS * Metoprolol 50mg PO BID (Hold SBP<100 and HR<60) * Losartan 50mg PO daily (Hold SBP<100) * Lasix 40mg PO daily (Hold SBP<100) * Ranexa 550mg PO bid * On heparin dvt ppx * Start Imdur 30mg PO daily (hold SBP<100 * Optimize pulmonary Rx for OPHELIA/Obesity * Encourage mobility * Pulmonary (Dr. Quiñones) on board-->help appreciated for COPD/OPHELIA Status: Acute (2) Morbidly obese Assessment & Plan: * Patient reports she has had unintentional weight loss over the past year * Environmental Compliance Inspector referral: eating 75% meals * Physical therapy eval (03/25): PT PRESENTS WITH DECREASED FUCNTIONAL MOBILITY, DECREASED GAIT AND DECREASED TRANSFERS. PT ALSO EXHIBITS MUSCLE WEAKNESS AND ROM IMPAIRMENT. PT WILL BENEFIT FROM CONT PT TO MAXIMISE FUNCTIONAL INDEPENDENCE -->Subacute rehab * Occupational eval (03/24): medically unstable * OOB Status: Chronic (3) SIRS (systemic inflammatory response syndrome) Assessment & Plan: Contributing Pneumonia and possible urinary tract infection Pneumonia * White count uptrending * Chest xray (03/20/17): no acute findings * CT Chest (03/20/17): no ct evidence of acute pulmonary embolism, aortic aneurysm , or aortic dissection. [place] airspace disease in the posterio basal segment of the left lower lobe may represent subsegmental atelectasis however pneumonia cannot be excluded. Patient has moderate left hilar lymphadenopathy of uncertain etiology * Chest Xray (03/22/17) New right PICC catheter terminates at level of cavoatrial junction. Mild congestive change. * Chest xray (03/28/17): right picc line with tip extending to the cavoatrial junction. Moderate venous congestion. Patchy left basilar airspace opacity. Enlarged ectatic aorta. Cardiomegaly * Order strep pneumoniae: pending, legionella: negative, and mycoplasma IGM: negative * Zosyn 4.5 IV Q 6hours (Restarted 03/28/17) * Vancomycin 1 gram IVQ 12hours (Restarted 03/28/17) * Florastor 250mg PO bid * Blood culture (03/20/17): no growth after 5 days Urinary Tract Infection * UA (2nd): hematuria-->treat as urinary tract infection-->repeat 03/27 Urine culture * Urine culture (03/22/17): no growth * Bladder US (03/28/17): limited study; increased echogenicity of the bilateral renal cortices suggestive for medical renal disease. Prominent multiple bilateral scattered renal calculi without evidence of gross hydronephrosis; pradhan catheter in the urinary bladder Pressure ulcer * sacral wound: turn q 2hours, and wound care R/O DVT given leukocytosis * Ordered venous dooppler r/o DVT over lower and upper extremities (Risk factor : morbid obesity, immobility) Status: Acute (4) HTN (hypertension) Assessment & Plan: * Metoprolol 50mg PO BID (Hold SBP<100 and HR<60) * Losartan 50mg PO daily (Hold SBP<100) * Lasix 40mg PO daily (Hold SBP<100) * Ranexa 500mg PO bid * Start Imdur 30mg PO daily Status: Chronic (5) OPHELIA (obstructive sleep apnea) Status: Chronic * Pulmonary (Dr. Quiñones) help appreciated * BIPAP * Educated about consistency of wearing the mask at bedside Status: Chronic (6) COPD (chronic obstructive pulmonary disease) Status: Chronic * Albuterol 3ml inhaled RQ4 * Start Spiriva 18mcg inhaled q daily * BIPAP prn * Repeat chest xray today Status: Chronic (7) History of Spinal stenosis Status: Chronic (8) History of Pressure Ulcer * Wound care * Turn Q 2hours Status: Chronic (9) Prophylactic measure Assessment & Plan: * Heparin 5000 units Q 8 hours * GI ppx: Pepcid 20mg PO BID * Wound care * TurnQ 2hours * Aspirin 81mg PO daily * PT/OT eval * OOB * Subacute rehab eval
[2017-03-28] MEDS ORDERED: Piperacill/Tazo 4.5gm in Dex 4.5 GM/100 ML BAG IVPB SCH (16:15)
--- NOTE | 2017-03-28 18:38 | CP.PCM.PN ---
Objective - Vital Signs/Intake and Output Vital Signs (last 24 hours): Temp Pulse Resp BP Pulse Ox 98.2 F 72 20 115/71 99 03/28/17 15:00 03/28/17 15:00 03/28/17 15:00 03/28/17 17:24 03/28/17 15:00 Intake and Output: 03/28/17 03/28/17 06:59 18:59 Intake Total 320 Output Total 2300 Balance -2300 320 - Medications Medications: Current Medications Albuterol Sulfate (Albuterol 0.083% Inhal Cee (2.5 Mg/3 Ml) Ud) 2.5 mg INH RQ6 PRN PRN Reason: Shortness of Breath Last Admin: 03/28/17 13:19 Dose: 2.5 mg Aspirin (Ecotrin) 81 mg PO DAILY [facility] Last Admin: 03/28/17 09:52 Dose: 81 mg Clonazepam (Klonopin) 1 mg PO Q12 [facility] Last Admin: 03/28/17 09:49 Dose: 1 mg Famotidine (Pepcid) 20 mg PO BID [facility] Last Admin: 03/28/17 09:52 Dose: 20 mg Furosemide (Lasix) 40 mg IVP DAILY [facility] Last Admin: 03/28/17 17:24 Dose: 40 mg Gabapentin (Neurontin) 300 mg PO TID [facility] Last Admin: 03/28/17 15:32 Dose: Not Given Heparin Sodium (Porcine) (Heparin) 5,000 units SC Q8 [facility] Last Admin: 03/28/17 13:42 Dose: 5,000 units Piperacillin Sod/Tazobactam Sod (Zosyn 4.5 Gm Iv Premix) 4.5 gm in 100 mls @ 100 mls/hr IVPB Q6 [facility] Last Admin: 03/28/17 17:52 Dose: 100 mls/hr Vancomycin HCl 1 gm/ Sodium (Chloride) 250 mls @ 166.7 mls/hr IVPB Q12H [facility] Last Admin: 03/28/17 17:56 Dose: 166.7 mls/hr Isosorbide Mononitrate (Imdur) 30 mg PO DAILY [facility] Last Admin: 03/28/17 12:27 Dose: 30 mg Losartan Potassium (Cozaar) 50 mg PO DAILY [facility] Last Admin: 03/28/17 09:51 Dose: 50 mg Metoprolol Tartrate (Lopressor) 50 mg PO Q12 [facility] Last Admin: 03/28/17 09:51 Dose: 50 mg Morphine Sulfate (Morphine) 2 mg IVP Q4H PRN PRN Reason: Pain, moderate (4-7) Last Admin: 03/28/17 17:16 Dose: 2 mg Nitroglycerin (Nitrostat Sl Tab) 0.4 mg SL Q5M PRN Promethazine HCl/Codeine (Phenergan/Codeine Oral Syrup) 5 ml PO Q4 PRN PRN Reason: Cough Last Admin: 03/27/17 10:41 Dose: 5 ml Ranolazine (Ranexa) 500 mg PO BID [facility] Last Admin: 03/28/17 09:49 Dose: 500 mg Rosuvastatin Calcium (Crestor) 20 mg PO HS [facility] Last Admin: 03/27/17 21:30 Dose: 20 mg Saccharomyces Boulardii (Florastor) 250 mg PO BID [facility] Last Admin: 03/28/17 09:51 Dose: 250 mg Tiotropium [place] (Spiriva) 18 mcg INH RQ24 [facility] Last Admin: 03/28/17 08:36 Dose: 18 mcg - Labs Labs: 03/27/17 06:33 03/27/17 06:33 PT 13.3 SECONDS (9.7-12.2) H 03/20/17 22:39 INR 1.2 03/20/17 22:39 APTT 68 SECONDS (21-34) H 03/23/17 06:51 Assessment and Plan (1) COPD (chronic obstructive pulmonary disease) Status: Chronic (2) Non-STEMI (non-ST elevated myocardial infarction) Status: Acute (3) SIRS (systemic inflammatory response syndrome) Status: Acute (4) OPHELIA (obstructive sleep apnea) Status: Chronic
[2017-03-29] MEDS: Piperacill/Tazo 4.5gm in Dex 4.5 GM/100 ML BAG IVPB SCH ×4 (00:40→12:39)
[2017-03-29 07:22] LABS: ALBUMIN 2.9 g/dL (3.5-5.0)
[2017-03-29 07:24] LABS: GFR AFRICAN-AMERICAN > 60; GFR NON-AFRICAN AMERICAN 57
[2017-03-29 07:25] LABS: ALB/GLOB RATIO 0.8 (1.0-2.1); ALT/SGPT 17 U/L (9-52); AST/SGOT 22 U/L (14-36); BLOOD UREA NITROGEN 13 mg/dL (7-17)
[2017-03-29 07:26] LABS: CALCIUM 8.7 mg/dl (8.6-10.4)
[2017-03-29 07:45] LABS: BASO # 0.1 K/uL (0.0-0.2); BASO % 0.7 % (0.0-2.0); EOS # 0.6 K/uL (0.0-0.7); EOS % 3.2 % (0.0-4.0); HEMOGLOBIN 10.9 g/dL (11.0-16.0); LYMPH # 3.3 K/uL (1.0-4.3); MEAN CELL VOLUME 83.5 fL (81.0-99.0); MEAN CORPUSCULAR HEMOGLOBIN 25.6 pg (27.0-31.0); MEAN CORPUSCULAR HGB CONC 30.7 g/dL (33.0-37.0); MEAN PLATELET VOLUME 8.7 fL (7.2-11.7); MONO # 1.4 K/uL (0.0-0.8); MONO % 7.8 % (0.0-10.0); NEUT # 12.1 K/uL (1.8-7.0); NEUT % 69.3 % (50.0-75.0); RBC 4.25 Mil/uL (3.80-5.20); RED CELL DISTRIBUTION WIDTH 16.7 % (11.5-14.5); WHITE BLOOD COUNT 17.5 K/uL (4.8-10.8)
[2017-03-29] MEDS: Albuterol 0.083% Inhal Sol (2.5 mg/3 mL) UD INH PRN (08:10)
[2017-03-29] MEDS: Tiotropium 18 mcg Cap For Inhalation INH SCH (08:10)
[2017-03-29] MEDS: Promethazine/Cod 6.25mg-10mg/5ml Syr UD PO PRN ×2 (08:35→16:25)
[2017-03-29] MEDS: Ranolazine 500 mg Extended Release Tablets PO SCH ×2 (09:37→18:02)
[2017-03-29] MEDS: Saccharomyces Boulardi 250 mg Cap PO SCH ×2 (09:38→18:03)
--- NOTE | 2017-03-29 09:56 | CP.PCM.PN ---
<MarcinHema kaur R - Last Filed: 03/29/17 17:32> Subjective - Date & Time of Evaluation Date of Evaluation: 03/29/17 Time of Evaluation: 07:00 - Subjective Subjective: Patient was seen and examined at bedside. Patient was not in acute distress. Patient complained of shortness of breath and cough productive of yellow sputum. She also complained of back pain and leg pain, both are chronic. She says her morphine isn't adequate to control her pain because it wears off too quickly. Patient denies chest pain, fever, chills, diaphoresis, abdominal pain, headache, nausea, vomiting, diarrhea. Objective - Vital Signs/Intake and Output Vital Signs (last 24 hours): Temp Pulse Resp BP Pulse Ox 97.4 F L 70 20 119/75 99 03/29/17 09:07 03/29/17 09:07 03/29/17 09:07 03/29/17 09:52 03/29/17 09:07 Intake and Output: 03/29/17 03/29/17 06:59 18:59 Intake Total 1340 Output Total 1300 Balance 40 - Medications Medications: Current Medications Albuterol Sulfate (Albuterol 0.083% Inhal Cee (2.5 Mg/3 Ml) Ud) 2.5 mg INH RQ6 PRN PRN Reason: Shortness of Breath Last Admin: 03/29/17 08:10 Dose: 2.5 mg Aspirin (Ecotrin) 81 mg PO DAILY [facility] Last Admin: 03/29/17 09:37 Dose: 81 mg Clonazepam (Klonopin) 1 mg PO Q12 [facility] Last Admin: 03/29/17 09:37 Dose: 1 mg Famotidine (Pepcid) 20 mg PO BID [facility] Last Admin: 03/29/17 09:37 Dose: 20 mg Furosemide (Lasix) 40 mg IVP DAILY [facility] Last Admin: 03/29/17 09:52 Dose: 40 mg Gabapentin (Neurontin) 300 mg PO TID [facility] Last Admin: 03/29/17 09:37 Dose: 300 mg Heparin Sodium (Porcine) (Heparin) 5,000 units SC Q8 [facility] Last Admin: 03/29/17 05:00 Dose: 5,000 units Piperacillin Sod/Tazobactam Sod (Zosyn 4.5 Gm Iv Premix) 4.5 gm in 100 mls @ 100 mls/hr IVPB Q6 [facility] Last Admin: 03/29/17 05:02 Dose: 100 mls/hr Vancomycin HCl 1 gm/ Sodium (Chloride) 250 mls @ 166.7 mls/hr IVPB Q12H [facility] Last Admin: 03/29/17 04:40 Dose: 166.7 mls/hr Isosorbide Mononitrate (Imdur) 30 mg PO DAILY [facility] Last Admin: 03/29/17 09:53 Dose: 30 mg Losartan Potassium (Cozaar) 50 mg PO DAILY [facility] Last Admin: 03/28/17 09:51 Dose: 50 mg Metoprolol Tartrate (Lopressor) 50 mg PO Q12 [facility] Last Admin: 03/28/17 21:59 Dose: Not Given Morphine Sulfate (Morphine) 2 mg IVP Q4H PRN PRN Reason: Pain, moderate (4-7) Last Admin: 03/29/17 09:38 Dose: 2 mg Nitroglycerin (Nitrostat Sl Tab) 0.4 mg SL Q5M PRN Potassium Chloride (K-Dur 20 Meq Er Tab) 40 meq PO DAILY [facility] Promethazine HCl/Codeine (Phenergan/Codeine Oral Syrup) 5 ml PO Q4 PRN PRN Reason: Cough Last Admin: 03/29/17 08:35 Dose: 5 ml Ranolazine (Ranexa) 500 mg PO BID [facility] Last Admin: 03/29/17 09:37 Dose: 500 mg Rosuvastatin Calcium (Crestor) 20 mg PO HS [facility] Last Admin: 03/28/17 21:59 Dose: 20 mg Saccharomyces Boulardii (Florastor) 250 mg PO BID [facility] Last Admin: 03/29/17 09:38 Dose: 250 mg Tiotropium [place] (Spiriva) 18 mcg INH RQ24 [facility] Last Admin: 03/29/17 08:10 Dose: 18 mcg - Labs Labs: 03/29/17 06:28 03/29/17 06:28 PT 13.3 SECONDS (9.7-12.2) H 03/20/17 22:39 INR 1.2 03/20/17 22:39 APTT 68 SECONDS (21-34) H 03/23/17 06:51 - Constitutional Appears: Well - Head Exam Head Exam: ATRAUMATIC, NORMAL INSPECTION, NORMOCEPHALIC - Eye Exam Eye Exam: EOMI, Normal appearance, PERRL - ENT Exam ENT Exam: Mucous Membranes Moist, Normal Exam - Neck Exam Neck Exam: Full ROM, Normal Inspection. absent: Lymphadenopathy - Respiratory Exam Respiratory Exam: Wheezes - Cardiovascular Exam Cardiovascular Exam: REGULAR RHYTHM, +S1, +S2. absent: Murmur - GI/Abdominal Exam GI & Abdominal Exam: Soft, Normal Bowel Sounds. absent: Tenderness - Rectal Exam Rectal Exam: Deferred - Extremities Exam Extremities Exam: Full ROM, Normal Capillary Refill, Normal Inspection. absent : Joint Swelling, Pedal Edema - Neurological Exam Neurological Exam: Alert, Awake, Oriented x3 - Psychiatric Exam Psychiatric exam: Normal Affect, Normal Mood - Skin Skin Exam: Dry, Intact, Normal Color, Warm Assessment and Plan - Assessment and Plan (Free Text) Assessment: (1) Non-STEMI (non-ST elevated myocardial infarction) History of prior myocardial infarction Assessment & Plan: Cardiology (Dr. David) on board-->help appreciated-->signed off 03/24/17 Per cardiology note, bedside ECHO (03/22/17)--> Preserved LV function, no sig valve regurge, mild dilated RV with preserved RV function. Inferobasal and basal septum appear aneurysmal. Troponin 6.05, 7.41, 9.17 Clinically no angina, arrythmia or worsening systolic dysfunction sx's. 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 No plans for c.cath. [facility] Rx for CAD. Per cardiology, * ASA 81 mg PO daily * Plavix 75mg PO daily * Crestor 20mg PO qHS * Metoprolol 50mg PO BID (Hold SBP<100 and HR<60) * Losartan 50mg PO daily (Hold SBP<100) * Lasix changed to 40mg IVP Daily * Ranexa 550mg PO bid * On heparin dvt ppx * Continue Imdur 30mg PO daily (hold SBP<100 * [facility] pulmonary Rx for OPHELIA/Obesity * Encourage mobility Pulmonary (Dr. Quiñones) on board-->help appreciated Status: Acute (2) Morbidly obese Status: Chronic * Patient reports she has had unintentional weight loss over the past year * Event Sales Assistant referral * Physical therapy eval and treat * Occupational eval and treat * OOB (3) SIRS (systemic inflammatory response syndrome) Assessment & Plan: * WBC trending up- 13.4. 03/29: wbc 17.5 * Chest xray (03/20/17): no acute findings * CT Chest (03/20/17): no ct evidence of acute pulmonary embolism, aortic aneurysm , or aortic dissection. [place] airspace disease in the posterio basal segment of the left lower lobe may represent subsegmental atelectasis however pneumonia cannot be excluded. Patient has moderate left hilar lymphadenopathy of uncertain etiology * Chest Xray (03/22/17) New right PICC catheter terminates at level of cavoatrial junction. Mild congestive change. * CXR 03/28/17-Moderate venous congestion. Patchy left basilar airspace opacity. Enlarged ectactic aorta. Cardiomegaly. * discontinued Zosyn 4.5 IV Q 6hours (Active since 03/21/17) * discontinued Vancomycin 1 gram IVQ 12hours started on 03/28/17 * 03/29: started cefepime 1gm IV q12 * Florastor 250mg PO bid Urine culture 03/28: no growth blood culture 03/28: no growth to date MRSA culture 03/26: MRSA not detected * Blood culture (03/20/17): no growth after 4 days X2 * UA (2nd): hematuria-->treat as urinary tract infection-->repeat today * Urine culture (03/22/17): no growth * MRSA (03/21/17) not detected * strep pneumoniae, legionella: negative, and mycoplasma IGM: negative * sacral wound: turn q 2hours, and wound care Status: Acute (4) Pneumonia Assessment & Plan: * CXR 03/28/17-Moderate venous congestion. Patchy left basilar airspace opacity. Enlarged ectactic aorta. Cardiomegaly. * 03/29: started cefepime 1gm IV q12 * discontinued Zosyn 4.5 IV Q 6hours (Active since 03/21/17) * discontinued Vancomycin 1 gram IVQ 12hours started on 03/28/17 * Florastor 250mg PO bid * Afebrile * WBC- 13.4 (5) HTN (hypertension) Assessment & Plan: * discontinued Metoprolol 50mg PO BID (Hold SBP<100 and HR<60) * Losartan 50mg PO daily (Hold SBP<100) * Lasix 40mg PO daily (Hold SBP<100) * Ranexa 500mg PO bid * Continue Imdur 30mg PO daily * Status: Chronic (6) OPHELIA (obstructive sleep apnea) Status: Chronic * BIPAP * Educated about consistency of wearing the mask at bedside (7) COPD (chronic obstructive pulmonary disease) Status: Chronic * Albuterol 3ml inhaled RQ4 * Continue Spiriva 18mcg inhaled q daily * BIPAP prn- Instructed patient to request Bipap every night * CXR- 03/25/17- Cardiomegaly and pulmonary vnenous congestion (Please see full report) (8) History of Spinal stenosis Status: Chronic * Klonopin 1mg PO Q12h * Gabapentin 300mg PO TID (9) History of Pressure Ulcer * Wound care * Turn Q 2hours (10) Microscopic Hematuria * Multiple UAs with microscopic hematuria * Bladder/ Renal Ultrasound- 03/28/17- Multiple bilateral scattered renal caluli without evidence of gross hydronephrosis. Bilateral medical renal disease ( Please see full report) * (11) Hypokalemia repleted potassium with Kdur 40meq (12) Deep Vein Thrombosis 03/29: duplex scan of left lower leg showed acute thrombosis of popliteal artery 03/29: started eliquis 10mg po bid (13) Prophylactic measure Assessment & Plan: * Heparin 5000 units Q 8 hours * GI ppx: Pepcid 20mg PO BID * Wound care * TurnQ 2hours * Aspirin 81mg PO daily * PT/OT eval * OOB <Tolu Rogers - Last Filed: 03/29/17 20:14> Objective - Vital Signs/Intake and Output Vital Signs (last 24 hours): Temp Pulse Resp BP Pulse Ox 97.3 F L 81 20 96/58 L 94 L 03/29/17 16:07 03/29/17 16:07 03/29/17 16:07 03/29/17 16:07 03/29/17 16:07 Intake and Output: 03/29/17 03/30/17 18:59 06:59 Intake Total 350 Output Total 1000 Balance -650 - Medications Medications: Current Medications Albuterol Sulfate (Albuterol 0.083% Inhal Cee (2.5 Mg/3 Ml) Ud) 2.5 mg INH RQ6 PRN PRN Reason: Shortness of Breath Last Admin: 03/29/17 08:10 Dose: 2.5 mg Apixaban (Eliquis) 10 mg PO BID [facility] Stop: 04/05/17 18:00 Last Admin: 03/29/17 18:02 Dose: 10 mg Aspirin (Ecotrin) 81 mg PO DAILY [facility] Last Admin: 03/29/17 09:37 Dose: 81 mg Clonazepam (Klonopin) 1 mg PO Q12 [facility] Last Admin: 03/29/17 09:37 Dose: 1 mg Famotidine (Pepcid) 20 mg PO BID [facility] Last Admin: 03/29/17 18:09 Dose: 20 mg Furosemide (Lasix) 40 mg IVP DAILY [facility] Last Admin: 03/29/17 09:52 Dose: 40 mg Gabapentin (Neurontin) 300 mg PO TID [facility] Last Admin: 03/29/17 18:03 Dose: 300 mg Cefepime HCl (Maxipime Iv 2 Gm Premix) 2 gm in 100 mls @ 200 mls/hr IVPB Q12H [facility] Stop: 04/03/17 18:01 Last Admin: 03/29/17 18:21 Dose: 200 mls/hr Isosorbide Mononitrate (Imdur) 30 mg PO DAILY [facility] Last Admin: 03/29/17 09:53 Dose: 30 mg Losartan Potassium (Cozaar) 50 mg PO DAILY [facility] Last Admin: 03/29/17 09:55 Dose: 50 mg Morphine Sulfate (Morphine) 2 mg IVP Q4H PRN PRN Reason: Pain, moderate (4-7) Last Admin: 03/29/17 18:20 Dose: 2 mg Nitroglycerin (Nitrostat Sl Tab) 0.4 mg SL Q5M PRN Nystatin (Nystop Topical Powder) 1 applic TOP BID [facility] Last Admin: 03/29/17 18:03 Dose: 1 applic Promethazine HCl/Codeine (Phenergan/Codeine Oral Syrup) 5 ml PO Q4 PRN PRN Reason: Cough Last Admin: 03/29/17 16:25 Dose: 5 ml Ranolazine (Ranexa) 500 mg PO BID [facility] Last Admin: 03/29/17 18:02 Dose: 500 mg Rosuvastatin Calcium (Crestor) 20 mg PO HS [facility] Last Admin: 03/28/17 21:59 Dose: 20 mg Saccharomyces Boulardii (Florastor) 250 mg PO BID [facility] Last Admin: 03/29/17 18:03 Dose: 250 mg Tiotropium [place] (Spiriva) 18 mcg INH RQ24 [facility] Last Admin: 03/29/17 08:10 Dose: 18 mcg - Labs Labs: 03/29/17 06:28 03/29/17 06:28 PT 13.3 SECONDS (9.7-12.2) H 03/20/17 22:39 INR 1.2 03/20/17 22:39 APTT 68 SECONDS (21-34) H 03/23/17 06:51 Attending/Attestation - Attestation I have personally seen and examined this patient.: Yes I have fully participated in the care of the patient.: Yes I have reviewed all pertinent clinical information, including history, physical exam and plan: Yes Notes (Text): 03/29/17 20:09 Patient was seen and examined at 1 PM 03/29/17. History, exam, and assessment and plan were thoroughly gone over with the Resident. In addition to the above on exam: Cardio: Systolic ejection murmur loudest at the left second intercostal space Skin: Stage I Sacral Ulcer with fungal infection of the perineum ID Dr. Cedeño was consulted for recommendation concerning antibiotic length for the pneumonia For the Left Leg DVT: Eliquis 10 mg PO 2x/day from 03/29/17 through 04/05/17 then 5 mg PO 2x/day. The DVT could also be contributing to the elevated WBC along with the Pneumonia. For the fungal infection of the perineum Nystatin Powder Q12H for 14 days starting 03/29/17 I spoke with [employer] Liss Padilla and insurance request has been made for [facility] in [place] and we are awaiting approval. Tolu Rogers,
[2017-03-29] MEDS ORDERED: Potassium Chloride 20 mEq ER Tab PO SCH (10:00)
[2017-03-29] MEDS ORDERED: Potassium Chloride 20 mEq ER Tab PO ONE (10:02)
--- NOTE | 2017-03-29 12:58 | CARD ---
APPROVED REPORT EKG Measurement Heart [id number] <Conclusion> Suspect arm lead reversal, interpretation assumes no reversal Normal sinus rhythm Anterolateral infarct, age undetermined Abnormal ECG
--- NOTE | 2017-03-29 12:58 | CARD ---
APPROVED REPORT EKG Measurement Heart [id number] <Conclusion> Normal sinus rhythm Cannot rule out Inferior infarct, age undetermined ST & T wave abnormality, consider lateral ischemia Abnormal ECG
--- NOTE | 2017-03-29 14:39 | VASCLAB ---
PROCEDURE: Lower Extremity Venous Duplex Exam. HISTORY: Leg pain PRIORS: None. TECHNIQUE: Bilateral common femoral, femoral, popliteal and posterior tibial, peroneal and great saphenous veins were evaluated. Flow was assessed with color Doppler, compressibility, assessment of phasic flow and augmentation response. Report prepared by PHILIPPE Vu, RVT FINDINGS: RIGHT: 1. Common Femoral Vein: 1.1. Compressibility - Fully compressible: Thrombus - None : Flow - Phasic: Augmentation -Normal: Reflux - None. 2. Femoral Vein: 2.1. Compressibility - Fully compressible: Thrombus - None : Flow - Phasic: Augmentation -Normal: Reflux - None. 3. Popliteal Vein: 3.1. Compressibility - Fully compressible: Thrombus - None : Flow - Phasic: Augmentation -Normal: Reflux - None. 4. Posterior Tibial Vein: 4.1. Compressibility - Fully compressible: Thrombus - None: Flow - Phasic: Augmentation -Normal: Reflux - None. 5. Peroneal Vein: 5.1. Compressibility - Fully compressible: Thrombus - None: Flow - Phasic: Augmentation -Normal: Reflux - None. 6. Great Saphenous Vein: 6.1. Compressibility - Fully compressible: Thrombus - None: Flow - Phasic: Augmentation - Normal: Reflux - None. LEFT: 1. Common Femoral Vein: 1.1. Compressibility - Fully compressible: Thrombus - None: Flow - Phasic: Augmentation -Normal: Reflux - None. 2. Femoral Vein: 2.1. Compressibility - Fully compressible: Thrombus - None: Flow - Phasic: Augmentation -Normal: Reflux - None. 3. Popliteal Vein: 3.1. Compressibility - Partial: Thrombus - Acute : Flow - Reduced : Augmentation -None: Reflux - None. 4. Posterior Tibial Vein: 4.1. Compressibility - Fully compressible: Thrombus - None: Flow - Phasic: Augmentation -Normal: Reflux - None. 5. Peroneal Vein: 5.1. Compressibility - Fully compressible: Thrombus - None: Flow - Phasic: Augmentation -Normal: Reflux - None. 6. Great Saphenous Vein: 6.1. Compressibility - Fully compressible: Thrombus - None: Flow - Phasic: Augmentation - Normal: Reflux - None. OTHER FINDINGS: KANDICE Patel notified about the findings. IMPRESSION: Right: No evidence of deep or superficial vein thrombosis of the right lower extremity. Normal valve function noted of the right side. Left: Acute thrombosis of the left popliteal vein with mild reduction of the venous return.
--- NOTE | 2017-03-29 14:43 | VASCLAB ---
PROCEDURE: Upper Extremity Venous Duplex Exam HISTORY: Leg pain PRIORS: None. TECHNIQUE: Bilateral upper extremity, internal jugular, subclavian, axillary, brachial, ulnar, radial, basilic and upper cephalic veins were evaluated. Flow was assessed with color Doppler, compressibility, assessment of phasic flow and augmentation response. Report prepared by Theo Lombardi, PHILIPPE, RVT FINDINGS: RIGHT: 1. Internal Jugular: 1.1. Compressibility - Fully compressible: Thrombus - None : Flow - Phasic: Augmentation -Normal: Reflux - None. 2. Subclavian: 2.1. Compressibility - Fully compressible: Thrombus - None : Flow - Phasic: Augmentation -Normal: Reflux - None. 3. Axillary: 3.1. Compressibility - Fully compressible: Thrombus - None : Flow - Phasic: Augmentation -Normal: Reflux - None. 4. Brachial: 4.1. Compressibility - Fully compressible: Thrombus - None: Flow - Phasic: Augmentation -Normal: Reflux - None. 5. Ulnar: 5.1. Compressibility - Fully compressible: Thrombus - None: Flow - Phasic: Augmentation -Normal: Reflux - None. 6. Radial: 6.1. Compressibility - Fully compressible: Thrombus - None: Flow - Phasic: Augmentation - Normal: Reflux - None. 7. Cephalic: 7.1. Compressibility - Fully compressible: Thrombus - None: Flow - Phasic: Augmentation -Normal: Reflux - None. 8. Basilic: 8.1. Compressibility - Fully compressible: Thrombus - None: Flow - Phasic: Augmentation -Normal: Reflux - None. LEFT: 1. Internal Jugular: 1.1. Compressibility - Fully compressible: Thrombus - None : Flow - Phasic: Augmentation -Normal: Reflux - None. 2. Subclavian: 2.1. Compressibility - Fully compressible: Thrombus - None : Flow - Phasic: Augmentation -Normal: Reflux - None. 3. Axillary: 3.1. Compressibility - Fully compressible: Thrombus - None : Flow - Phasic: Augmentation -Normal: Reflux - None. 4. Brachial: 4.1. Compressibility - Fully compressible: Thrombus - None: Flow - Phasic: Augmentation -Normal: Reflux - None. 5. Ulnar: 5.1. Compressibility - Fully compressible: Thrombus - None: Flow - Phasic: Augmentation -Normal: Reflux - None. 6. Radial: 6.1. Compressibility - Fully compressible: Thrombus - None: Flow - Phasic: Augmentation - Normal: Reflux - None. 7. Cephalic: 7.1. Compressibility - Fully compressible: Thrombus - None: Flow - Phasic: Augmentation -Normal: Reflux - None. 8. Basilic: 8.1. Compressibility - Fully compressible: Thrombus - None: Flow - Phasic: Augmentation -Normal: Reflux - None. OTHER FINDINGS: Right: None. Left: None. IMPRESSION: Right: No evidence of vein thrombosis of the right upper extremity with excellent venous flow. Normal valve function noted of the right side. Left: No evidence of vein thrombosis of the left upper extremity with excellent venous flow. Normal valve function noted of the left side.
--- NOTE | 2017-03-29 14:52 | CP.PCM.CON ---
History of Present Illness - History of Present Illness History of Present Illness: asked to see 61yr old clayle with morbid obesity,non stemi [place] ,COPD ,pneumonia on iv antibiotics via picc line right arm,patient was weak unable to hold herself up when she presented to hospital,now says no phlegm ,has a pradhan cathter just changed,no fever,increased wbc on antibiotics, she is morbidly obese and reports a prolonged ICU admission and recurrent need for subacute care facility for SIRS/Pneumonia. She is very sedentary and mostly sofa bound at home but able to perform self care. Most recently about 2 weeks ago she states she slipped and fell in the tub and went to [facility] [place] and discharged. Since she reports progressive cough, dysuria, but no fever, chills, chest pressure, dizziness or syncope or palpitation. She presented to ER with same complaints and routine EKG showed inferior q- waves and subtle ST changes in the inferior leads in the absence of CHF features or chest pressure. CT chest ruled out any PE, mild leukocytosis and UTI noted, suspicion for atelectasis or PNA on CT. Heparin GTT was started and patient Tx to ICU. PMHX: HTN, No DM, Obeseity, probable OPHELIA PSHX: gall bladder Allergies: NKDA SOCHX: as above, smoker, no drugs no ETOH abuse ROS: all 12 systems rev and negative except as in HPI Review of Systems - Review of Systems Systems not reviewed;Unavailable: Respiratory Distress - Constitutional Constitutional: Snoring, Weight Gain - EENT Eyes: absent: As Per HPI, Blind Spots, Blurred Vision, Change in Vision, Decreased Night Vision, Diplopia, Discharge, Dry Eye, Exophthalmos, Floaters, Irritation, Itchy Eyes, Loss of Peripheral Vision, Pain, Photophobia, Requires Corrective Lenses, Sees Flashes, Spots in Vision, Tunnel Vision, Other Visual Disturbances, Loss of Vision, Other Ears: absent: As Per HPI, Decreased Hearing, Ear Discharge, Ear Pain, Tinnitus, Abnormal Hearing, Disequilibrium, Dizziness, Other Nose/Mouth/Throat: absent: As Per HPI, Epistaxis, Nasal Congestion, Nasal Discharge, Nasal Obstruction, Nasal Trauma, Nose Pain, Post Nasal Drip, Sinus Pain, Sinus Pressure, Bleeding Gums, Change in Voice, Dental Pain, Dry Mouth, Dysphagia, Halitosis, Hoarsness, Lip Swelling, Mouth Lesions, Mouth Pain, Odynophagia, Sore Throat, Throat Swelling, Tongue Swelling, Facial Pain, Neck Pain, Neck Mass, Other - Cardiovascular Cardiovascular: Chest Pain, Dyspnea on Exertion, Edema - Respiratory Respiratory: Cough, Dyspnea, Dyspnea on Exertion. absent: As Per HPI, Hemoptysis, Wheezing, Snoring, Stridor, Pain on Inspiration, Chest Congestion, Excessive Mucous Production, Change in Mucous Color, Pain with Coughing, Other - Gastrointestinal Gastrointestinal: absent: As Per HPI, Abdominal Pain, Belching, Bloating, Change in Bowel Habits, Change in Stool Character, Coffee Ground Emesis, Constipation, Cramping, Diarrhea, Dyspepsia, Dysphagia, Early Satiety, Excessive Flatus, Fecal Incontinence, Heartburn, Hematemesis, Hematochezia, Loose Stools, Melena, Nausea, Odynophagia, Temesmus, Vomiting, Other - Musculoskeletal Musculoskeletal: Arthralgias Additional comments: obesity - Integumentary Integumentary: absent: As Per HPI, Acne, Alopecia, Bleeding Lesions, Change in Hair, Change in Nails, Change in Pigmentation, Changing Lesions, Dry Skin, Erythema, Furuncle, Hirsutism, Lesions, New Lesions, Non-Healing Lesions, Photosensitivity, Pruritus, Rash, Skin Pain, Skin Ulcer, Sores, Striae, Swelling , Unusual Bruising, Wounds, Jaundice, Other Past Patient History - Past Medical History & Family History Past Medical History?: Yes - Past Social History Smoking Status: Current Some Days Smoker - CARDIAC Hx Hypertension: Yes - PULMONARY Hx Respiratory Disorders: No Hx Pneumonia: Yes Hx Respiratory Tract Infection: Yes - NEUROLOGICAL Hx Neurological Disorder: No - HEENT Hx HEENT Problems: No - RENAL Hx Kidney Stones: Yes - ENDOCRINE/METABOLIC Hx Endocrine Disorders: No - HEMATOLOGICAL/ONCOLOGICAL Hx Blood Disorders: No - INTEGUMENTARY Other/Comment: Abdominal Fold reddened and weeping with foul smell - MUSCULOSKELETAL/RHEUMATOLOGICAL Hx Falls: Yes Hx Herniated Disk: Yes - GASTROINTESTINAL Hx Gastrointestinal Disorders: No - GENITOURINARY/GYNECOLOGICAL Hx Genitourinary Disorders: No - PSYCHIATRIC Hx Substance Use: No - SURGICAL HISTORY Hx Cholecystectomy: Yes Hx Joint Replacement: Yes (rt knee) - ANESTHESIA Hx Anesthesia: No Hx Anesthesia Reactions: No Hx Malignant Hyperthermia: No Has any member of the family had a problem w/ anesthesia?: No Meds Allergies/Adverse Reactions: Allergies Allergy/AdvReac Type Severity Reaction Status Date / Time No Known Allergies Allergy Verified 02/01/16 05:56 - Medications Medications: Current Medications Albuterol Sulfate (Albuterol 0.083% Inhal Cee (2.5 Mg/3 Ml) Ud) 2.5 mg INH RQ6 PRN PRN Reason: Shortness of Breath Last Admin: 03/29/17 08:10 Dose: 2.5 mg Apixaban (Eliquis) 10 mg PO BID [facility] Stop: 04/05/17 18:00 Aspirin (Ecotrin) 81 mg PO DAILY [facility] Last Admin: 03/29/17 09:37 Dose: 81 mg Clonazepam (Klonopin) 1 mg PO Q12 [facility] Last Admin: 03/29/17 09:37 Dose: 1 mg Famotidine (Pepcid) 20 mg PO BID [facility] Last Admin: 03/29/17 09:37 Dose: 20 mg Furosemide (Lasix) 40 mg IVP DAILY [facility] Last Admin: 03/29/17 09:52 Dose: 40 mg Gabapentin (Neurontin) 300 mg PO TID [facility] Last Admin: 03/29/17 13:34 Dose: 300 mg Piperacillin Sod/Tazobactam Sod (Zosyn 4.5 Gm Iv Premix) 4.5 gm in 100 mls @ 100 mls/hr IVPB Q6 [facility] Last Admin: 03/29/17 12:39 Dose: 100 mls/hr Vancomycin HCl 1 gm/ Sodium (Chloride) 250 mls @ 166.7 mls/hr IVPB Q12H [facility] Last Admin: 03/29/17 04:40 Dose: 166.7 mls/hr Isosorbide Mononitrate (Imdur) 30 mg PO DAILY [facility] Last Admin: 03/29/17 09:53 Dose: 30 mg Losartan Potassium (Cozaar) 50 mg PO DAILY [facility] Last Admin: 03/29/17 09:55 Dose: 50 mg Morphine Sulfate (Morphine) 2 mg IVP Q4H PRN PRN Reason: Pain, moderate (4-7) Last Admin: 03/29/17 13:32 Dose: 2 mg Nitroglycerin (Nitrostat Sl Tab) 0.4 mg SL Q5M PRN Nystatin (Nystop Topical Powder) 1 applic TOP BID [facility] Promethazine HCl/Codeine (Phenergan/Codeine Oral Syrup) 5 ml PO Q4 PRN PRN Reason: Cough Last Admin: 03/29/17 08:35 Dose: 5 ml Ranolazine (Ranexa) 500 mg PO BID [facility] Last Admin: 03/29/17 09:37 Dose: 500 mg Rosuvastatin Calcium (Crestor) 20 mg PO HS [facility] Last Admin: 03/28/17 21:59 Dose: 20 mg Saccharomyces Boulardii (Florastor) 250 mg PO BID [facility] Last Admin: 03/29/17 09:38 Dose: 250 mg Tiotropium [place] (Spiriva) 18 mcg INH RQ24 [facility] Last Admin: 03/29/17 08:10 Dose: 18 mcg Physical Exam - Head Exam Head Exam: ATRAUMATIC, NORMOCEPHALIC Additional comments: morbid obesity present - Eye Exam Eye Exam: Normal appearance Pupil Exam: NORMAL ACCOMODATION - ENT Exam ENT Exam: Mucous Membranes Moist - Neck Exam Neck exam: Positive for: Normal Inspection - Respiratory Exam Respiratory Exam: Decreased Breath Sounds. absent: Accessory Muscle Use, Chest Wall Tenderness, Clear to Auscultation Bilateral, Prolonged Expiratory Phase, Rales, Rhonchi, Wheezes, Respiratory Distress, Stridor, NORMAL BREATHING PATTERN - Cardiovascular Exam Cardiovascular Exam: REGULAR RHYTHM, RRR. absent: Bradycardia, Tachycardia, Clicks, Diastolic murmur, Gallop, Irregular Rhythm, JVD, Rubs, +S1, +S2, +S4, Systolic Murmur - GI/Abdominal Exam GI & Abdominal Exam: Normal Bowel Sounds, Soft. absent: Bruit, Diminished Bowel Sounds, Distended, Firm, Guarding, Hernia, Hyperactive Bowel Sounds, Hypoactive Bowel Sounds, Mass, Organomegaly, Pulsatile Mass, Rebound, Rigid, Tenderness - Extremities Exam Extremities exam: Positive for: normal inspection Additional comments: obesity present Results - Vital Signs Recent Vital Signs: Last Vital Signs Temp 97.4 F L 03/29/17 09:07 Pulse 70 03/29/17 09:07 Resp 20 03/29/17 09:07 BP 119/75 03/29/17 09:52 Pulse Ox 99 03/29/17 09:07 - Labs Result Diagrams: 03/29/17 06:28 03/29/17 06:28 Labs: Laboratory Results - last 24 hr 03/29/17 03/29/17 06:28 06:28 WBC 17.5 H RBC 4.25 Hgb 10.9 L Hct 35.5 MCV 83.5 MCH 25.6 L MCHC 30.7 L RDW 16.7 H Plt Count 292 MPV 8.7 Neut % (Auto) 69.3 Lymph % (Auto) 19.0 L [place] % (Auto) 7.8 Eos % (Auto) 3.2 Baso % (Auto) 0.7 Neut # 12.1 H Lymph # 3.3 [place] # 1.4 H Eos # 0.6 Baso # 0.1 Sodium 137 Potassium 3.2 L Chloride 94 L Carbon Dioxide 33 H Anion Gap 13 BUN 13 Creatinine 1.0 Est GFR ( Amer) > 60 Est GFR (Non-Af Amer) 57 Random Glucose 82 Calcium 8.7 Total Bilirubin 0.8 AST 22 ALT 17 Alkaline Phosphatase 54 Total Protein 6.5 Albumin 2.9 L Globulin 3.6 Albumin/Globulin Ratio 0.8 L Assessment & Plan (1) Non-STEMI (non-ST elevated myocardial infarction) Status: Acute (2) Sacral wound Status: Acute (3) COPD (chronic obstructive pulmonary disease) Status: Chronic (4) Morbidly obese Status: Chronic (5) OPHELIA (obstructive sleep apnea) Status: Chronic (6) Leukocytosis Assessment and Plan: Patient has most of the cultures negative,no MRSA on nasal swab will place her on Maxipime for now. Patient is morbidly obese with OPHELIA and incapaciated due to her weight ,need to drastically loose weight will start Maxipime 2gams q 12 hrs and monitor WBC Status: Acute
[2017-03-29] MEDS: Cefepime IV 2 gm in Dextrose 2 GM/100 ML BAG IVPB SCH (18:21)
[2017-03-30] MEDS: Cefepime IV 2 gm in Dextrose 2 GM/100 ML BAG IVPB SCH ×2 (05:41→17:20)
[2017-03-30 06:50] LABS: ALBUMIN 3.1 g/dL (3.5-5.0)
[2017-03-30 06:51] LABS: BASO % 0.9 % (0.0-2.0); EOS % 3.1 % (0.0-4.0); HEMOGLOBIN 11.6 g/dL (11.0-16.0); MEAN CELL VOLUME 81.5 fL (81.0-99.0); MEAN CORPUSCULAR HEMOGLOBIN 25.6 pg (27.0-31.0); MEAN CORPUSCULAR HGB CONC 31.4 g/dL (33.0-37.0); MEAN PLATELET VOLUME 8.6 fL (7.2-11.7); MONO % 7.4 % (0.0-10.0); NEUT # 14.3 K/uL (1.8-7.0); NEUT % 76.6 % (50.0-75.0); RBC 4.52 Mil/uL (3.80-5.20); RED CELL DISTRIBUTION WIDTH 16.6 % (11.5-14.5); WHITE BLOOD COUNT 18.6 K/uL (4.8-10.8)
[2017-03-30 06:52] LABS: BASO # 0.2 K/uL (0.0-0.2); EOS # 0.6 K/uL (0.0-0.7); LYMPH # 2.2 K/uL (1.0-4.3); MONO # 1.4 K/uL (0.0-0.8)
[2017-03-30 06:52] LABS: GFR AFRICAN-AMERICAN > 60; GFR NON-AFRICAN AMERICAN > 60
[2017-03-30 06:53] LABS: ALB/GLOB RATIO 0.8 (1.0-2.1); ALT/SGPT 22 U/L (9-52); AST/SGOT 29 U/L (14-36); BLOOD UREA NITROGEN 14 mg/dL (7-17); CALCIUM 8.7 mg/dl (8.6-10.4)
[2017-03-30] MEDS: Tiotropium 18 mcg Cap For Inhalation INH SCH (07:44)
--- NOTE | 2017-03-30 09:55 | CP.PCM.PN ---
<MarcinHema R - Last Filed: 03/30/17 18:02> Subjective - Date & Time of Evaluation Date of Evaluation: 03/30/17 Time of Evaluation: 09:30 - Subjective Subjective: Patient seen and examined at bedside. Patient was resting comfortably in bed. Patient stated she is feeling better today. She still reports cough and yellow sputum production, she states both cough/sputum production are milder than yesterday. She complaints of right ear ache without discharge or tinnitus. She denies chest pain, abdominal pain, shortness of breath, fever, nausea, chills, diarrhea, pain, bleeding. Objective - Vital Signs/Intake and Output Vital Signs (last 24 hours): Temp Pulse Resp BP Pulse Ox 98.5 F 93 H 18 118/72 95 03/30/17 07:00 03/30/17 07:00 03/30/17 07:00 03/30/17 07:00 03/30/17 07:00 Intake and Output: 03/30/17 03/30/17 06:59 18:59 Intake Total 100 Output Total 625 Balance -525 - Medications Medications: Current Medications Albuterol Sulfate (Albuterol 0.083% Inhal Cee (2.5 Mg/3 Ml) Ud) 2.5 mg INH RQ6 PRN PRN Reason: Shortness of Breath Last Admin: 03/29/17 08:10 Dose: 2.5 mg Apixaban (Eliquis) 10 mg PO BID [facility] Stop: 04/05/17 18:00 Last Admin: 03/29/17 18:02 Dose: 10 mg Aspirin (Ecotrin) 81 mg PO DAILY [facility] Last Admin: 03/29/17 09:37 Dose: 81 mg Clonazepam (Klonopin) 1 mg PO Q12 [facility] Last Admin: 03/29/17 21:59 Dose: 1 mg Collagenase (Santyl) 0 gm TOP DAILY [facility] Famotidine (Pepcid) 20 mg PO BID [facility] Last Admin: 03/29/17 18:09 Dose: 20 mg Furosemide (Lasix) 40 mg IVP DAILY [facility] Last Admin: 03/29/17 09:52 Dose: 40 mg Gabapentin (Neurontin) 300 mg PO TID [facility] Last Admin: 03/29/17 18:03 Dose: 300 mg Cefepime HCl (Maxipime Iv 2 Gm Premix) 2 gm in 100 mls @ 200 mls/hr IVPB Q12H [facility] Stop: 04/03/17 18:01 Last Admin: 03/30/17 05:41 Dose: 200 mls/hr Isosorbide Mononitrate (Imdur) 30 mg PO DAILY [facility] Last Admin: 03/29/17 09:53 Dose: 30 mg Losartan Potassium (Cozaar) 50 mg PO DAILY [facility] Last Admin: 03/29/17 09:55 Dose: 50 mg Morphine Sulfate (Morphine) 2 mg IVP Q4H PRN PRN Reason: Pain, moderate (4-7) Last Admin: 03/30/17 05:40 Dose: 2 mg Nitroglycerin (Nitrostat Sl Tab) 0.4 mg SL Q5M PRN Nystatin (Nystop Topical Powder) 1 applic TOP BID [facility] Last Admin: 03/29/17 18:03 Dose: 1 applic Promethazine HCl/Codeine (Phenergan/Codeine Oral Syrup) 5 ml PO Q4 PRN PRN Reason: Cough Last Admin: 03/29/17 16:25 Dose: 5 ml Ranolazine (Ranexa) 500 mg PO BID [facility] Last Admin: 03/29/17 18:02 Dose: 500 mg Rosuvastatin Calcium (Crestor) 20 mg PO HS [facility] Last Admin: 03/29/17 21:59 Dose: 20 mg Saccharomyces Boulardii (Florastor) 250 mg PO BID [facility] Last Admin: 03/29/17 18:03 Dose: 250 mg Tiotropium [place] (Spiriva) 18 mcg INH RQ24 [facility] Last Admin: 03/30/17 07:44 Dose: 18 mcg - Labs Labs: 03/30/17 04:00 03/30/17 06:12 PT 13.3 SECONDS (9.7-12.2) H 03/20/17 22:39 INR 1.2 03/20/17 22:39 APTT 68 SECONDS (21-34) H 03/23/17 06:51 - Constitutional Appears: Well, Non-toxic, No Acute Distress - Head Exam Head Exam: ATRAUMATIC, NORMAL INSPECTION, NORMOCEPHALIC - Eye Exam Eye Exam: EOMI, Normal appearance, PERRL - ENT Exam ENT Exam: Mucous Membranes Moist, Normal Exam Additional comments: no erythema/discharge noted in right ear or left ear tympanic membranes normal in rt ear and left ear - Neck Exam Neck Exam: Full ROM, Normal Inspection. absent: Lymphadenopathy - Respiratory Exam Respiratory Exam: Clear to Ausculation Bilateral, NORMAL BREATHING PATTERN - Cardiovascular Exam Cardiovascular Exam: REGULAR RHYTHM, +S1, +S2, Murmur Additional comments: Systolic ejection murmur loudest at the left second intercostal space - GI/Abdominal Exam GI & Abdominal Exam: Soft, Normal Bowel Sounds. absent: Tenderness - Rectal Exam Rectal Exam: Deferred - Extremities Exam Extremities Exam: Full ROM, Normal Capillary Refill, Normal Inspection. 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 David) on board-->help appreciated-->signed off 03/24/17 Per cardiology note, bedside ECHO (03/22/17)--> Preserved LV function, no sig valve regurge, mild dilated RV with preserved RV function. Inferobasal and basal septum appear aneurysmal. Troponin 6.05, 7.41, 9.17 Clinically no angina, arrythmia or worsening systolic dysfunction sx's. 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 No plans for c.cath. [facility] medical Rx for CAD. Per cardiology, * ASA 81 mg PO daily * Plavix 75mg PO daily * Crestor 20mg PO qHS * Metoprolol 50mg PO BID (Hold SBP<100 and HR<60) * Losartan 50mg PO daily (Hold SBP<100) * Lasix changed to 40mg IVP Daily * Ranexa 550mg PO bid * On heparin dvt ppx * Continue Imdur 30mg PO daily (hold SBP<100 * [facility] pulmonary Rx for OPHELIA/Obesity * Encourage mobility Pulmonary (Dr. Quiñones) on board-->help appreciated Status: Acute (2) Morbidly obese Status: Chronic * Patient reports she has had unintentional weight loss over the past year * Publicity Consultant referral * Physical therapy eval and treat * Occupational eval and treat * OOB (3) SIRS (systemic inflammatory response syndrome) Assessment & Plan: 03/30: wbc 18.6 trending up from 17.5; afebrile * 03/29: started cefepime 1gm IV q12 * 03/29: discontinued Zosyn 4.5 IV Q 6hours (Active since 03/21/17) * 03/29: discontinued Vancomycin 1 gram IVQ 12hours (active since on 03/28/17) * 03/28: CXR: "Moderate venous congestion. Patchy left basilar airspace opacity. Enlarged ectactic aorta. Cardiomegaly" * 03/28: Urine culture no growth 03/28: blood culture no growth to date 03/26: MRSA culture -> MRSA not detected * 03/22: CXR: "New right PICC catheter terminates at level of cavoatrial junction. Mild congestive change" * 03/20: CXR: no acute findings * 03/20: CT Chest: "no ct evidence of acute pulmonary embolism, aortic aneurysm, or aortic dissection. [place] airspace disease in the posterio basal segment of the left lower lobe may represent subsegmental atelectasis however pneumonia cannot be excluded. Patient has moderate left hilar lymphadenopathy of uncertain etiology" * 03/20: Blood culture no growth after 4 days X2 * UA (2nd): hematuria-->treat as urinary tract infection-->repeat today * Urine culture (03/22/17): no growth * strep pneumoniae, legionella: negative, and mycoplasma IGM: negative * sacral wound: turn q 2hours, and wound care * Florastor 250mg PO bid Status: Acute (4) Pneumonia Assessment & Plan: 03/30: wbc 18.6 trending up from 17.5; afebrile 03/29: started cefepime 1gm IV q12 * 03/29: discontinued Zosyn 4.5 IV Q 6hours (Active since 03/21/17) * 03/29: discontinued Vancomycin 1 gram IVQ 12hours started on 03/28/17 * CXR 03/28/17-Moderate venous congestion. Patchy left basilar airspace opacity. Enlarged ectactic aorta. Cardiomegaly. * Florastor 250mg PO bid (5) HTN (hypertension) Assessment & Plan: * discontinued Metoprolol 50mg PO BID (Hold SBP<100 and HR<60) * Losartan 50mg PO daily (Hold SBP<100) * Lasix 40mg PO daily (Hold SBP<100) * Ranexa 500mg PO bid * Continue Imdur 30mg PO daily Status: Chronic (6) OPHELIA (obstructive sleep apnea) Status: Chronic * BIPAP * Educated about consistency of wearing the mask at bedside (7) COPD (chronic obstructive pulmonary disease) Status: Chronic * Albuterol 3ml inhaled RQ4 * Continue Spiriva 18mcg inhaled q daily * BIPAP prn- Instructed patient to request Bipap every night * CXR- 03/25/17- Cardiomegaly and pulmonary vnenous congestion (Please see full report) (8) History of Spinal stenosis Status: Chronic * Klonopin 1mg PO Q12h * Gabapentin 300mg PO TID (9) Stage 1 Sacral Ulcer * Wound care * Turn Q 2hours (10) Microscopic Hematuria * Multiple UAs with microscopic hematuria * Bladder/ Renal Ultrasound- 03/28/17- Multiple bilateral scattered renal caluli without evidence of gross hydronephrosis. 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 <Tolu Rogers - Last Filed: 03/30/17 20:14> Objective - Vital Signs/Intake and Output Vital Signs (last 24 hours): Temp Pulse Resp BP Pulse Ox 98.6 F 89 20 91/57 L 96 03/30/17 15:35 03/30/17 15:35 03/30/17 15:35 03/30/17 15:35 03/30/17 15:35 Intake and Output: 03/30/17 03/31/17 18:59 06:59 Intake Total 240 Output Total 400 Balance -160 - Medications Medications: Current Medications Albuterol Sulfate (Albuterol 0.083% Inhal Cee (2.5 Mg/3 Ml) Ud) 2.5 mg INH RQ6 PRN PRN Reason: Shortness of Breath Last Admin: 03/29/17 08:10 Dose: 2.5 mg Apixaban (Eliquis) 10 mg PO BID [facility] Stop: 04/05/17 18:00 Last Admin: 03/30/17 17:17 Dose: 10 mg Aspirin (Ecotrin) 81 mg PO DAILY [facility] Last Admin: 03/30/17 10:38 Dose: 81 mg Clonazepam (Klonopin) 1 mg PO Q12 [facility] Last Admin: 03/30/17 12:00 Dose: Not Given Collagenase (Santyl) 0 gm TOP DAILY [facility] Last Admin: 03/30/17 10:40 Dose: 1 applic Famotidine (Pepcid) 20 mg PO BID [facility] Last Admin: 03/30/17 17:15 Dose: 20 mg Furosemide (Lasix) 40 mg IVP DAILY [facility] Last Admin: 03/30/17 10:37 Dose: 40 mg Gabapentin (Neurontin) 300 mg PO TID [facility] Last Admin: 03/30/17 17:15 Dose: 300 mg Cefepime HCl (Maxipime Iv 2 Gm Premix) 2 gm in 100 mls @ 200 mls/hr IVPB Q12H [facility] Stop: 04/03/17 18:01 Last Admin: 03/30/17 17:20 Dose: 200 mls/hr Isosorbide Mononitrate (Imdur) 30 mg PO DAILY [facility] Last Admin: 03/30/17 10:41 Dose: 30 mg Losartan Potassium (Cozaar) 50 mg PO DAILY [facility] Last Admin: 03/30/17 10:38 Dose: 50 mg Morphine Sulfate (Morphine) 1 mg IVP Q6H PRN PRN Reason: Pain, severe (8-10) Last Admin: 03/30/17 18:03 Dose: 1 mg Nitroglycerin (Nitrostat Sl Tab) 0.4 mg SL Q5M PRN Nystatin (Nystop Topical Powder) 1 applic TOP BID [facility] Last Admin: 03/30/17 17:15 Dose: 1 applic Promethazine HCl/Codeine (Phenergan/Codeine Oral Syrup) 5 ml PO Q4 PRN PRN Reason: Cough Last Admin: 03/29/17 16:25 Dose: 5 ml Ranolazine (Ranexa) 500 mg PO BID [facility] Last Admin: 03/30/17 17:15 Dose: 500 mg Rosuvastatin Calcium (Crestor) 20 mg PO HS [facility] Last Admin: 03/29/17 21:59 Dose: 20 mg Saccharomyces Boulardii (Florastor) 250 mg PO BID [facility] Last Admin: 03/30/17 17:15 Dose: 250 mg Tiotropium [place] (Spiriva) 18 mcg INH RQ24 [facility] Last Admin: 03/30/17 07:44 Dose: 18 mcg - Labs Labs: 03/30/17 04:00 03/30/17 06:12 PT 13.3 SECONDS (9.7-12.2) H 03/20/17 22:39 INR 1.2 03/20/17 22:39 APTT 68 SECONDS (21-34) H 03/23/17 06:51 Attending/Attestation - Attestation I have personally seen and examined this patient.: Yes I have fully participated in the care of the patient.: Yes I have reviewed all pertinent clinical information, including history, physical exam and plan: Yes Notes (Text): 03/30/17 20:07 Patient was seen and examined at 5:40 PM Physical, Assessment and Plan were thoroughly gone over with the Resident. Extensive conversation with patient concerning her medical issues. She had asked why she kept on getting pneumonia and why the Left Leg DVT. Explained that lack of activity and being immobile while at home can lead to clot formation. Also her chronic pain in the back was secondary to the her Morbid Obesity and that all of her issues were related to this. Explained that the goal would be to get her well enough to start ambulating and out of bed at [facility] Once discharged from there she would need to follow up with her PMD for referral to Bariatric Surgeon who would document her attempts at non-surgical weight loss and then possible bariatric surgery. She expressed understanding. Also explained at length the dangers of excessive use of narcotics. She was resting comfortably in bed in no distress and having dinner and watching television when I walked into her room. She immediately told me that she was in pain and requesting her Morphine. Explained to her that Morphine was only to be used if and when the pain level is so uncomfortable to the point of crying and that she could not think of anything else. I also explained this to patient's nurse that patient was to be assessed and observed prior to giving the Morphine and to be given only if patient appeared to be extremely uncomfortable. Tolu Rogers D.O.
[2017-03-30] MEDS: Saccharomyces Boulardi 250 mg Cap PO SCH ×2 (10:38→17:15)
[2017-03-30] MEDS: Collagenase 250 Units/gm Ointment(30 gm) TOP SCH (10:40)
[2017-03-30] MEDS: Ranolazine 500 mg Extended Release Tablets PO SCH ×2 (10:46→17:15)
--- NOTE | 2017-03-30 23:08 | CP.PCM.PN ---
Subjective - Date & Time of Evaluation Date of Evaluation: 03/30/17 Time of Evaluation: 02:30 - Subjective Subjective: Patient says she was feeling better this morning but now in bed lying ,cough and breathing little better,patient has a piccline in right arm Objective - Vital Signs/Intake and Output Vital Signs (last 24 hours): Temp Pulse Resp BP Pulse Ox 98.6 F 86 20 91/57 L 96 03/30/17 15:35 03/30/17 20:07 03/30/17 15:35 03/30/17 15:35 03/30/17 15:35 Intake and Output: 03/30/17 03/31/17 18:59 06:59 Intake Total 240 Output Total 400 150 Balance -160 -150 - Medications Medications: Current Medications Albuterol Sulfate (Albuterol 0.083% Inhal Cee (2.5 Mg/3 Ml) Ud) 2.5 mg INH RQ6 PRN PRN Reason: Shortness of Breath Last Admin: 03/29/17 08:10 Dose: 2.5 mg Apixaban (Eliquis) 10 mg PO BID [facility] Stop: 04/05/17 18:00 Last Admin: 03/30/17 17:17 Dose: 10 mg Aspirin (Ecotrin) 81 mg PO DAILY [facility] Last Admin: 03/30/17 10:38 Dose: 81 mg Clonazepam (Klonopin) 1 mg PO Q12 [facility] Last Admin: 03/30/17 22:01 Dose: 1 mg Collagenase (Santyl) 0 gm TOP DAILY [facility] Last Admin: 03/30/17 10:40 Dose: 1 applic Famotidine (Pepcid) 20 mg PO BID [facility] Last Admin: 03/30/17 17:15 Dose: 20 mg Furosemide (Lasix) 40 mg IVP DAILY [facility] Last Admin: 03/30/17 10:37 Dose: 40 mg Gabapentin (Neurontin) 300 mg PO TID [facility] Last Admin: 03/30/17 17:15 Dose: 300 mg Cefepime HCl (Maxipime Iv 2 Gm Premix) 2 gm in 100 mls @ 200 mls/hr IVPB Q12H [facility] Stop: 04/03/17 18:01 Last Admin: 03/30/17 17:20 Dose: 200 mls/hr Isosorbide Mononitrate (Imdur) 30 mg PO DAILY [facility] Last Admin: 03/30/17 10:41 Dose: 30 mg Losartan Potassium (Cozaar) 50 mg PO DAILY [facility] Last Admin: 03/30/17 10:38 Dose: 50 mg Morphine Sulfate (Morphine) 1 mg IVP Q6H PRN PRN Reason: Pain, severe (8-10) Last Admin: 03/30/17 18:03 Dose: 1 mg Nitroglycerin (Nitrostat Sl Tab) 0.4 mg SL Q5M PRN Nystatin (Nystop Topical Powder) 1 applic TOP BID [facility] Last Admin: 03/30/17 17:15 Dose: 1 applic Promethazine HCl/Codeine (Phenergan/Codeine Oral Syrup) 5 ml PO Q4 PRN PRN Reason: Cough Last Admin: 03/29/17 16:25 Dose: 5 ml Ranolazine (Ranexa) 500 mg PO BID [facility] Last Admin: 03/30/17 17:15 Dose: 500 mg Rosuvastatin Calcium (Crestor) 20 mg PO HS [facility] Last Admin: 03/30/17 22:01 Dose: 20 mg Saccharomyces Boulardii (Florastor) 250 mg PO BID [facility] Last Admin: 03/30/17 17:15 Dose: 250 mg Tiotropium [place] (Spiriva) 18 mcg INH RQ24 [facility] Last Admin: 03/30/17 07:44 Dose: 18 mcg - Labs Labs: 03/30/17 04:00 03/30/17 06:12 PT 13.3 SECONDS (9.7-12.2) H 03/20/17 22:39 INR 1.2 03/20/17 22:39 APTT 68 SECONDS (21-34) H 03/23/17 06:51 - Constitutional Appears: No Acute Distress - Head Exam Head Exam: NORMAL INSPECTION, NORMOCEPHALIC Additional comments: morbid obesity - Eye Exam Eye Exam: Normal appearance Pupil Exam: NORMAL ACCOMODATION - ENT Exam ENT Exam: Normal Exam - Neck Exam Neck Exam: Normal Inspection - Respiratory Exam Respiratory Exam: Decreased Breath Sounds. absent: Accessory Muscle Use, Chest Wall Tenderness, Clear to Ausculation Bilateral, Prolonged Expiratory Phase, Rales, Rhonchi, Wheezes, Respiratory Distress, Stridor, NORMAL BREATHING PATTERN - Cardiovascular Exam Cardiovascular Exam: REGULAR RHYTHM, RRR. absent: Bradycardia, Tachycardia, Clicks, Diastolic murmur, Gallop, Irregular Rhythm, JVD, Rubs, +S1, +S2, +S4, Murmur - GI/Abdominal Exam GI & Abdominal Exam: Normal Bowel Sounds. absent: Bruit, Distended, Firm, Guarding, Rigid, Soft, Tenderness, Diminished Bowel Sounds, Hernia, Hyperactive Bowel Sounds, Hypoactive Bowel Sounds, Mass, Organomegaly, Pulsatile Mass, Rebound - Extremities Exam Extremities Exam: Pedal Edema - Skin Skin Exam: Normal Color Assessment and Plan (1) Non-STEMI (non-ST elevated myocardial infarction) Status: Acute (2) Sacral wound Status: Acute (3) COPD (chronic obstructive pulmonary disease) Status: Chronic (4) Morbidly obese Status: Chronic (5) OPHELIA (obstructive sleep apnea) Status: Chronic (6) Leukocytosis Assessment & Plan: still inceasing wbc will monitor tomorrow if wbc decreased pt on cefepime,if wbc increase pt will need repeat septic work up and will add Vancomycin to regime,also consider line also as a source Status: Acute
[2017-03-31] MEDS: Cefepime IV 2 gm in Dextrose 2 GM/100 ML BAG IVPB SCH (06:21)
--- NOTE | 2017-03-31 06:26 | CP.PCM.PN ---
<MarcinHema R - Last Filed: 03/31/17 17:45> Subjective - Date & Time of Evaluation Date of Evaluation: 03/31/17 Time of Evaluation: 07:45 - Subjective Subjective: Patient was seen and examined at bedside. Patient was sleeping when I arrived. Patient stated she wanted an increase in her morphine dose or more frequent administrations to control her chronic low back pain. She admits to subjective fever. She complains of low back pain (chronic). She denies chest pain, shortness of breath, nausea, chills, vomiting, diarrhea, dysuria, abdominal pain , pelvic pain. Objective - Vital Signs/Intake and Output Vital Signs (last 24 hours): Temp Pulse Resp BP Pulse Ox 99.1 F 59 L 20 107/62 94 L 03/30/17 23:00 03/30/17 23:47 03/30/17 23:00 03/30/17 23:00 03/30/17 23:00 Intake and Output: 03/30/17 03/31/17 18:59 06:59 Intake Total 240 Output Total 400 350 Balance -160 -350 - Medications Medications: Current Medications Albuterol Sulfate (Albuterol 0.083% Inhal Cee (2.5 Mg/3 Ml) Ud) 2.5 mg INH RQ6 PRN PRN Reason: Shortness of Breath Last Admin: 03/29/17 08:10 Dose: 2.5 mg Apixaban (Eliquis) 10 mg PO BID [facility] Stop: 04/05/17 18:00 Last Admin: 03/30/17 17:17 Dose: 10 mg Aspirin (Ecotrin) 81 mg PO DAILY [facility] Last Admin: 03/30/17 10:38 Dose: 81 mg Clonazepam (Klonopin) 1 mg PO Q12 [facility] Last Admin: 03/30/17 22:01 Dose: 1 mg Collagenase (Santyl) 0 gm TOP DAILY [facility] Last Admin: 03/30/17 10:40 Dose: 1 applic Famotidine (Pepcid) 20 mg PO BID [facility] Last Admin: 03/30/17 17:15 Dose: 20 mg Furosemide (Lasix) 40 mg IVP DAILY [facility] Last Admin: 03/30/17 10:37 Dose: 40 mg Gabapentin (Neurontin) 300 mg PO TID [facility] Last Admin: 03/30/17 17:15 Dose: 300 mg Cefepime HCl (Maxipime Iv 2 Gm Premix) 2 gm in 100 mls @ 200 mls/hr IVPB Q12H [facility] Stop: 04/03/17 18:01 Last Admin: 03/31/17 06:21 Dose: 200 mls/hr Isosorbide Mononitrate (Imdur) 30 mg PO DAILY [facility] Last Admin: 03/30/17 10:41 Dose: 30 mg Losartan Potassium (Cozaar) 50 mg PO DAILY [facility] Last Admin: 03/30/17 10:38 Dose: 50 mg Morphine Sulfate (Morphine) 1 mg IVP Q6H PRN PRN Reason: Pain, severe (8-10) Last Admin: 03/31/17 06:21 Dose: 1 mg Nitroglycerin (Nitrostat Sl Tab) 0.4 mg SL Q5M PRN Nystatin (Nystop Topical Powder) 1 applic TOP BID [facility] Last Admin: 03/30/17 17:15 Dose: 1 applic Promethazine HCl/Codeine (Phenergan/Codeine Oral Syrup) 5 ml PO Q4 PRN PRN Reason: Cough Last Admin: 03/29/17 16:25 Dose: 5 ml Ranolazine (Ranexa) 500 mg PO BID [facility] Last Admin: 03/30/17 17:15 Dose: 500 mg Rosuvastatin Calcium (Crestor) 20 mg PO HS [facility] Last Admin: 03/30/17 22:01 Dose: 20 mg Saccharomyces Boulardii (Florastor) 250 mg PO BID [facility] Last Admin: 03/30/17 17:15 Dose: 250 mg Tiotropium [place] (Spiriva) 18 mcg INH RQ24 [facility] Last Admin: 03/30/17 07:44 Dose: 18 mcg - Labs Labs: 03/30/17 04:00 03/30/17 06:12 PT 13.3 SECONDS (9.7-12.2) H 03/20/17 22:39 INR 1.2 03/20/17 22:39 APTT 68 SECONDS (21-34) H 03/23/17 06:51 - Constitutional Appears: Well - Head Exam Head Exam: ATRAUMATIC, NORMAL INSPECTION, NORMOCEPHALIC - Eye Exam Eye Exam: EOMI, Normal appearance, PERRL - ENT Exam ENT Exam: Mucous Membranes Moist, Normal Exam - Neck Exam Neck Exam: Full ROM, Normal Inspection. absent: Lymphadenopathy - Respiratory Exam Respiratory Exam: Clear to Ausculation Bilateral, NORMAL BREATHING PATTERN - Cardiovascular Exam Additional comments: Systolic ejection murmur loudest at the left second intercostal space - GI/Abdominal Exam GI & Abdominal Exam: Soft, Normal Bowel Sounds. absent: Tenderness - Rectal Exam Rectal Exam: Deferred - Extremities Exam Extremities Exam: Tenderness - Neurological Exam Neurological Exam: Alert, Awake, Oriented x3 - Skin Skin Exam: Dry, Intact, Normal Color, Warm Assessment and Plan - Assessment and Plan (Free Text) Assessment: (1) Non-STEMI (non-ST elevated myocardial infarction) History of prior myocardial infarction Assessment & Plan: Cardiology (Dr. David) on board-->help appreciated-->signed off 03/24/17 Per cardiology note, bedside ECHO (03/22/17)--> Preserved LV function, no sig valve regurge, mild dilated RV with preserved RV function. Inferobasal and basal septum appear aneurysmal. Troponin 6.05, 7.41, 9.17 Clinically no angina, arrythmia or worsening systolic dysfunction sx's. 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 No plans for c.cath. [facility] Rx for CAD. Per cardiology, * ASA 81 mg PO daily * Plavix 75mg PO daily * Crestor 20mg PO qHS * Metoprolol 50mg PO BID (Hold SBP<100 and HR<60) * Losartan 50mg PO daily (Hold SBP<100) * Lasix changed to 40mg IVP Daily * Ranexa 550mg PO bid * On heparin dvt ppx * Continue Imdur 30mg PO daily (hold SBP<100 * [facility] Rx for OPHELIA/Obesity * Encourage mobility Pulmonary (Dr. Quiñones) on board-->help appreciated Status: Acute (2) Morbidly obese Status: Chronic * Patient reports she has had unintentional weight loss over the past year * Package Handler referral * Physical therapy eval and treat * Occupational eval and treat * OOB (3) SIRS (systemic inflammatory response syndrome) Assessment & Plan: 03/31: wbc 24.7; afebrile 03/31: blood culture ordered, urine culture ordered, picc tip culture ordered 03/31: picc line pulled, midline catheter placed 03/31: pradhan replaced 03/31: discontinued cefepime 1gm iv q12. started vancomycin 1gm q12 iv started. vanco trough to be checked 04/01 21:30 03/31: started meropenem 1gm iv q8 03/31: CXR ordered today: "Mild pulmonary vascular congestive changes may have improved slightly however there are vague somewhat more confluent opacities seen in the lung bases left greater than right, that may represent some residual alveolar-type infiltrates related to pulmonary edema/ CHF. Cardiomegaly. 03/30: wbc 18.6 trending up from 17.5; afebrile * 03/29: started cefepime 1gm IV q12 * 03/29: discontinued Zosyn 4.5 IV Q 6hours (Active since 03/21/17) * 03/29: discontinued Vancomycin 1 gram IVQ 12hours (active since on 03/28/17) * 03/28: CXR: "Moderate venous congestion. Patchy left basilar airspace opacity. Enlarged ectactic aorta. Cardiomegaly" * 03/28: Urine culture no growth 03/28: blood culture no growth to date 03/26: MRSA culture -> MRSA not detected * 03/22: CXR: "New right PICC catheter terminates at level of cavoatrial junction. Mild congestive change" * 03/20: CXR: no acute findings * 03/20: CT Chest: "no ct evidence of acute pulmonary embolism, aortic aneurysm, or aortic dissection. [place] airspace disease in the posterio basal segment of the left lower lobe may represent subsegmental atelectasis however pneumonia cannot be excluded. Patient has moderate left hilar lymphadenopathy of uncertain etiology" * 03/20: Blood culture no growth after 4 days X2 * UA (2nd): hematuria-->treat as urinary tract infection-->repeat today * Urine culture (03/22/17): no growth * strep pneumoniae, legionella: negative, and mycoplasma IGM: negative * sacral wound: turn q 2hours, and wound care * Florastor 250mg PO bid Status: Acute (4) Pneumonia Assessment & Plan: 03/30: wbc 18.6 trending up from 17.5; afebrile 03/29: started cefepime 1gm IV q12 * 03/29: discontinued Zosyn 4.5 IV Q 6hours (Active since 03/21/17) * 03/29: discontinued Vancomycin 1 gram IVQ 12hours started on 03/28/17 * CXR 03/28/17-Moderate venous congestion. Patchy left basilar airspace opacity. Enlarged ectactic aorta. Cardiomegaly. * Florastor 250mg PO bid (5) HTN (hypertension) Assessment & Plan: * discontinued Metoprolol 50mg PO BID (Hold SBP<100 and HR<60) * Losartan 50mg PO daily (Hold SBP<100) * Lasix 40mg PO daily (Hold SBP<100) * Ranexa 500mg PO bid * Continue Imdur 30mg PO daily Status: Chronic (6) OPHELIA (obstructive sleep apnea) Status: Chronic * BIPAP * Educated about consistency of wearing the mask at bedside (7) COPD (chronic obstructive pulmonary disease) Status: Chronic * Albuterol 3ml inhaled RQ4 * Continue Spiriva 18mcg inhaled q daily * BIPAP prn- Instructed patient to request Bipap every night * CXR- 03/25/17- Cardiomegaly and pulmonary vnenous congestion (Please see full report) (8) History of Spinal stenosis Status: Chronic * Klonopin 1mg PO Q12h * Gabapentin 300mg PO TID (9) Unstagable Sacral Ulcer 03/31: Dr Smith of surgery consulted. Dr Rogers spoke with Dr Smith who said sacral ulcer does not need debridement right now 03/31: Wound care nurse Tre Alcazar describes this as an unstageable ulcer * Wound care * Turn Q 2hours (10) Microscopic Hematuria * Multiple UAs with microscopic hematuria * Bladder/ Renal Ultrasound- 03/28/17- Multiple bilateral scattered renal caluli without evidence of gross hydronephrosis. 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 <Tolu Rogers - Last Filed: 03/31/17 19:09> Objective - Vital Signs/Intake and Output Vital Signs (last 24 hours): Temp Pulse Resp BP Pulse Ox 97.9 F 93 H 20 96/60 L 94 L 03/31/17 15:17 03/31/17 15:17 03/31/17 15:17 03/31/17 15:17 03/31/17 15:17 Intake and Output: 03/31/17 04/01/17 18:59 06:59 Intake Total 240 Output Total 675 Balance -435 - Medications Medications: Current Medications Albuterol Sulfate (Albuterol 0.083% Inhal Cee (2.5 Mg/3 Ml) Ud) 2.5 mg INH RQ6 PRN PRN Reason: Shortness of Breath Last Admin: 03/29/17 08:10 Dose: 2.5 mg Apixaban (Eliquis) 10 mg PO BID [facility] Stop: 04/05/17 18:00 Last Admin: 03/31/17 17:51 Dose: 10 mg Aspirin (Ecotrin) 81 mg PO DAILY [facility] Last Admin: 03/31/17 10:34 Dose: 81 mg Clonazepam (Klonopin) 1 mg PO Q12 [facility] Last Admin: 03/31/17 10:34 Dose: 1 mg Collagenase (Santyl) 0 gm TOP DAILY [facility] Last Admin: 03/31/17 10:25 Dose: Not Given Famotidine (Pepcid) 20 mg PO BID [facility] Last Admin: 03/31/17 17:51 Dose: 20 mg Furosemide (Lasix) 40 mg IVP DAILY [facility] Last Admin: 03/31/17 11:40 Dose: 40 mg Gabapentin (Neurontin) 300 mg PO TID [facility] Last Admin: 03/31/17 17:50 Dose: 300 mg Vancomycin/Sodium Chloride (Vancocin) 1 gm in 200 mls @ 133.333 mls/hr IVPB Q12H [facility] Stop: 04/05/17 10:01 Last Admin: 03/31/17 11:40 Dose: 133.333 mls/hr Meropenem 1 gm/ Sodium (Chloride) 100 mls @ 100 mls/hr IVPB Q8 [facility] Isosorbide Mononitrate (Imdur) 30 mg PO DAILY [facility] Last Admin: 03/31/17 10:35 Dose: 30 mg Ketorolac Tromethamine (Toradol) 10 mg PO Q6 PRN PRN Reason: Pain, moderate (4-7) Losartan Potassium (Cozaar) 50 mg PO DAILY [facility] Last Admin: 03/31/17 10:36 Dose: 50 mg Morphine Sulfate (Morphine) 1 mg IVP Q6H PRN PRN Reason: Pain, severe (8-10) Last Admin: 03/31/17 13:09 Dose: 1 mg Nitroglycerin (Nitrostat Sl Tab) 0.4 mg SL Q5M PRN Nystatin (Nystop Topical Powder) 1 applic TOP BID [facility] Last Admin: 03/31/17 17:51 Dose: 1 applic Promethazine HCl/Codeine (Phenergan/Codeine Oral Syrup) 5 ml PO Q4 PRN PRN Reason: Cough Last Admin: 03/29/17 16:25 Dose: 5 ml Ranolazine (Ranexa) 500 mg PO BID [facility] Last Admin: 03/31/17 17:52 Dose: 500 mg Rosuvastatin Calcium (Crestor) 20 mg PO HS [facility] Last Admin: 03/30/17 22:01 Dose: 20 mg Saccharomyces Boulardii (Florastor) 250 mg PO BID [facility] Last Admin: 03/31/17 17:51 Dose: 250 mg Tiotropium [place] (Spiriva) 18 mcg INH RQ24 [facility] Last Admin: 03/31/17 07:41 Dose: 18 mcg - Labs Labs: 03/31/17 06:08 03/31/17 06:08 PT 13.3 SECONDS (9.7-12.2) H 03/20/17 22:39 INR 1.2 03/20/17 22:39 APTT 68 SECONDS (21-34) H 03/23/17 06:51 Attending/Attestation - Attestation I have personally seen and examined this patient.: Yes I have fully participated in the care of the patient.: Yes I have reviewed all pertinent clinical information, including history, physical exam and plan: Yes Notes (Text): 03/31/17 19:01 Patient was seen and examined at 9:30 AM 7/12/17 Exam, Assessment and Plan were thoroughly gone over with the Resident. Again, conversation with patient about the dangers of excessive Morphine use as she was requesting a higher dose of it. Prior to my exam, she was noted to be sleeping comfortably and when she was easily awoken she was not in any distress or appear to be in any pain. Considering that the WBC continues to rise the following measures were taken: PICC Line was removed and the tip was sent for culture by PICC Line Nurse Leeann from our request. Midline IV Access was placed by Nurse Leeann I spoke with Nurse Woodruff and instructed her to remove the Pradhan and to replace it with a new one (nursing order was also placed). Urine Culture x 1 ordered Blood Culture x 2 ordered CXR Portable ordered and this showed that the mild pulmonary congestion had improved however there were residual confluent opacities at the bilateral lung bases (left greater than the right) Vancomycin 1 gm IV Q12H to be started at 10 AM was ordered as well as Vancomycin Trough prior to 4th dose at 9:30 PM on 04/01/17. We also notified ID Dr. Cedeño of the above and her help along with the Surgical Team and Wound Care Nurse, is greatly appreciated. Tolu Rogers D.O. 03/31/17 19:06
[2017-03-31 06:54] LABS: ALBUMIN 2.9 g/dL (3.5-5.0)
[2017-03-31 06:57] LABS: ALB/GLOB RATIO 0.8 (1.0-2.1)
[2017-03-31 06:58] LABS: CALCIUM 8.6 mg/dl (8.6-10.4)
[2017-03-31 07:00] LABS: BASO # 0.2 K/uL (0.0-0.2); BASO % 0.8 % (0.0-2.0); EOS # 0.5 K/uL (0.0-0.7); EOS % 2.2 % (0.0-4.0); HEMOGLOBIN 10.8 g/dL (11.0-16.0); LYMPH # 2.3 K/uL (1.0-4.3); LYMPH % 9.4 % (20.0-40.0); MEAN CORPUSCULAR HEMOGLOBIN 25.3 pg (27.0-31.0); MEAN CORPUSCULAR HGB CONC 30.9 g/dL (33.0-37.0); MEAN PLATELET VOLUME 8.8 fL (7.2-11.7); MONO # 1.7 K/uL (0.0-0.8); NEUT # 19.9 K/uL (1.8-7.0); NEUT % 80.6 % (50.0-75.0); NRBC % 0.4 % (0.0-2.0); PLATELET COUNT 309 K/uL (130-400); RBC 4.27 Mil/uL (3.80-5.20); WHITE BLOOD COUNT 24.7 K/uL (4.8-10.8)
[2017-03-31] MEDS: Tiotropium 18 mcg Cap For Inhalation INH SCH (07:41)
[2017-03-31 08:25] LABS: BANDS 3 % (0-2); EOSINOPHIL 3 % (0-4); LYMPHOCYTE 10 % (20-40); MONOCYTE 4 % (0-10); NEUTROPHIL 80 % (50-75); TOTAL CELLS COUNTED 100
[2017-03-31 08:26] LABS: ANISOCYTOSIS SLIGHT; HYPOCHROMIC SLIGHT; PLATELET ESTIMATE NORMAL (NORMAL)
[2017-03-31] MEDS: Collagenase 250 Units/gm Ointment(30 gm) TOP SCH (10:25)
[2017-03-31] MEDS: Saccharomyces Boulardi 250 mg Cap PO SCH ×2 (10:36→17:51)
[2017-03-31] MEDS: Ranolazine 500 mg Extended Release Tablets PO SCH ×2 (10:36→17:52)
[2017-03-31] MEDS: Vancomycin 1 gm/NS 200 ml 1 GM/200 ML BAG IVPB SCH ×2 (11:40→21:14)
--- NOTE | 2017-03-31 14:07 | RAD ---
HISTORY: Elevated WBC. Patchy Basilar Airspace Opacity COMPARISON: Comparison chest dated 03/28/2017 FINDINGS: LUNGS: Mild pulmonary vascular congestive changes may have improved slightly however there are vague somewhat more confluent opacities seen in the lung bases left greater than right, that may represent some residual alveolar-type infiltrates related to pulmonary edema/ CHF. PLEURA: No significant pleural effusion identified, no pneumothorax apparent. CARDIOVASCULAR: Heart remains enlarged OSSEOUS STRUCTURES: No significant abnormalities. VISUALIZED UPPER ABDOMEN: Normal. OTHER FINDINGS: Interval removal right-sided PICC line IMPRESSION: Mild pulmonary vascular congestive changes may have improved slightly however there are vague somewhat more confluent opacities seen in the lung bases left greater than right, that may represent some residual alveolar-type infiltrates related to pulmonary edema/ CHF. Cardiomegaly. Minimal right-sided PICC line Cardiomegaly.
--- NOTE | 2017-03-31 17:44 | CP.PCM.CON ---
History of Present Illness - History of Present Illness History of Present Illness: General sx consult note for Jessica Hale, PGY-1 Pt S & E at bedside. 61F admitted to hospital for SOB, NSTEMI, sepsis, pneumonia. Surgery consulted for sacral decubitus ulcer. Per family member- pt has been non mobile, stays in chair x 4 weeks s/p fall. Pt has been unable to get up out of the chair. Admits to SOB, cough, weight associated ambulatory issues. Denies F/C/, recent illness, CP, palpitations, ab pain, N/V/D/C, changes in urinary habits, hematuria, CANALES, changes in sensation. PMH: HTN, Morbid obesity, OPHELIA, COPD, Spinal Stenosis, NSTEMI PSH: Total Right Knee Arthroplasty, Laparoscopic Cholecystectomy All: NKA SH: Former tobacco use (26 pack years), denies ETOH or illicit drug use FH: NV, CVA, B/L mastectomy, endometrial carcinoma w/hysterectomy, ETOH abuse, Breast CA Review of Systems - Constitutional Constitutional: Weakness. absent: Chills, Fever - EENT Eyes: absent: Change in Vision Nose/Mouth/Throat: absent: Sore Throat - Cardiovascular Cardiovascular: absent: Chest Pain, Palpitations - Respiratory Respiratory: Cough - Gastrointestinal Gastrointestinal: absent: Abdominal Pain, Diarrhea, Nausea, Vomiting - Genitourinary Genitourinary: absent: Change in Urinary Stream, Hematuria - Musculoskeletal Musculoskeletal: Muscle Weakness - Integumentary Integumentary: Skin Ulcer Past Patient History - Past Medical History & Family History Past Medical History?: Yes - Past Social History Smoking Status: Current Some Days Smoker - CARDIAC Hx Hypertension: Yes - PULMONARY Hx Respiratory Disorders: No Hx Pneumonia: Yes Hx Respiratory Tract Infection: Yes - NEUROLOGICAL Hx Neurological Disorder: No - HEENT Hx HEENT Problems: No - RENAL Hx Kidney Stones: Yes - ENDOCRINE/METABOLIC Hx Endocrine Disorders: No - HEMATOLOGICAL/ONCOLOGICAL Hx Blood Disorders: No - INTEGUMENTARY Other/Comment: Abdominal Fold reddened and weeping with foul smell - MUSCULOSKELETAL/RHEUMATOLOGICAL Hx Falls: Yes Hx Herniated Disk: Yes - GASTROINTESTINAL Hx Gastrointestinal Disorders: No - GENITOURINARY/GYNECOLOGICAL Hx Genitourinary Disorders: No - PSYCHIATRIC Hx Substance Use: No - SURGICAL HISTORY Hx Cholecystectomy: Yes Hx Joint Replacement: Yes (rt knee) - ANESTHESIA Hx Anesthesia: No Hx Anesthesia Reactions: No Hx Malignant Hyperthermia: No Has any member of the family had a problem w/ anesthesia?: No Meds Allergies/Adverse Reactions: Allergies Allergy/AdvReac Type Severity Reaction Status Date / Time No Known Allergies Allergy Verified 02/01/16 05:56 - Medications Medications: Current Medications Albuterol Sulfate (Albuterol 0.083% Inhal Cee (2.5 Mg/3 Ml) Ud) 2.5 mg INH RQ6 PRN PRN Reason: Shortness of Breath Last Admin: 03/29/17 08:10 Dose: 2.5 mg Apixaban (Eliquis) 10 mg PO BID [facility] Stop: 04/05/17 18:00 Last Admin: 03/31/17 10:35 Dose: 10 mg Aspirin (Ecotrin) 81 mg PO DAILY [facility] Last Admin: 03/31/17 10:34 Dose: 81 mg Clonazepam (Klonopin) 1 mg PO Q12 [facility] Last Admin: 03/31/17 10:34 Dose: 1 mg Collagenase (Santyl) 0 gm TOP DAILY [facility] Last Admin: 03/31/17 10:25 Dose: Not Given Famotidine (Pepcid) 20 mg PO BID [facility] Last Admin: 03/31/17 10:34 Dose: 20 mg Furosemide (Lasix) 40 mg IVP DAILY [facility] Last Admin: 03/31/17 11:40 Dose: 40 mg Gabapentin (Neurontin) 300 mg PO TID [facility] Last Admin: 03/31/17 13:09 Dose: 300 mg Vancomycin/Sodium Chloride (Vancocin) 1 gm in 200 mls @ 133.333 mls/hr IVPB Q12H [facility] Stop: 04/05/17 10:01 Last Admin: 03/31/17 11:40 Dose: 133.333 mls/hr Meropenem 1 gm/ Sodium (Chloride) 100 mls @ 100 mls/hr IVPB Q8 [facility] Isosorbide Mononitrate (Imdur) 30 mg PO DAILY [facility] Last Admin: 03/31/17 10:35 Dose: 30 mg Ketorolac Tromethamine (Toradol) 10 mg PO Q6 PRN PRN Reason: Pain, moderate (4-7) Losartan Potassium (Cozaar) 50 mg PO DAILY [facility] Last Admin: 03/31/17 10:36 Dose: 50 mg Morphine Sulfate (Morphine) 1 mg IVP Q6H PRN PRN Reason: Pain, severe (8-10) Last Admin: 03/31/17 13:09 Dose: 1 mg Nitroglycerin (Nitrostat Sl Tab) 0.4 mg SL Q5M PRN Nystatin (Nystop Topical Powder) 1 applic TOP BID [facility] Last Admin: 03/31/17 10:34 Dose: 1 applic Promethazine HCl/Codeine (Phenergan/Codeine Oral Syrup) 5 ml PO Q4 PRN PRN Reason: Cough Last Admin: 03/29/17 16:25 Dose: 5 ml Ranolazine (Ranexa) 500 mg PO BID [facility] Last Admin: 03/31/17 10:36 Dose: 500 mg Rosuvastatin Calcium (Crestor) 20 mg PO HS [facility] Last Admin: 03/30/17 22:01 Dose: 20 mg Saccharomyces Boulardii (Florastor) 250 mg PO BID [facility] Last Admin: 03/31/17 10:36 Dose: 250 mg Tiotropium [place] (Spiriva) 18 mcg INH RQ24 [facility] Last Admin: 03/31/17 07:41 Dose: 18 mcg Physical Exam - Constitutional Appears: Non-toxic, No Acute Distress Additional comments: morbidly obese - Head Exam Head Exam: ATRAUMATIC, NORMAL INSPECTION, NORMOCEPHALIC - Eye Exam Eye Exam: EOMI, Normal appearance - ENT Exam ENT Exam: Mucous Membranes Moist, Normal Exam - Neck Exam Neck exam: Positive for: Full Rom, Normal Inspection - Respiratory Exam Respiratory Exam: Clear to Auscultation Bilateral, NORMAL BREATHING PATTERN - Cardiovascular Exam Cardiovascular Exam: REGULAR RHYTHM, +S1, +S2 - GI/Abdominal Exam GI & Abdominal Exam: Normal Bowel Sounds, Soft. absent: Distended (obese), Tenderness - Extremities Exam Extremities exam: Negative for: pedal edema - Neurological Exam Neurological exam: Alert, CN II-XII Intact, Oriented x3 - Psychiatric Exam Psychiatric exam: Normal Affect, Normal Mood - Skin Skin Exam: Dry, Normal Color, Warm Additional comments: Stage 2 sacral decubitus ulcer, approximately 4 x 7 cm, granulation tissue present at base, no drainage, erythematous margin, no necrotic tissue visualized Results - Vital Signs Recent Vital Signs: Last Vital Signs Temp 97.9 F 03/31/17 15:17 Pulse 93 H 03/31/17 15:17 Resp 20 03/31/17 15:17 BP 96/60 L 03/31/17 15:17 Pulse Ox 94 L 03/31/17 15:17 - Labs Result Diagrams: 04/01/17 06:37 04/01/17 06:37 Labs: Laboratory Results - last 24 hr 03/31/17 03/31/17 06:08 06:08 WBC 24.7 H RBC 4.27 Hgb 10.8 L Hct 35.0 MCV 82.0 MCH 25.3 L MCHC 30.9 L RDW 17.0 H Plt Count 309 MPV 8.8 Neut % (Auto) 80.6 H Lymph % (Auto) 9.4 L [place] % (Auto) 7.0 Eos % (Auto) 2.2 Baso % (Auto) 0.8 Neut # 19.9 H Lymph # 2.3 [place] # 1.7 H Eos # 0.5 Baso # 0.2 Neutrophils % (Manual) 80 H Band Neutrophils % 3 H Lymphocytes % (Manual) 10 L Monocytes % (Manual) 4 Eosinophils % (Manual) 3 Platelet Estimate Normal Hypochromasia (manual) Slight Anisocytosis (manual) Slight Sodium 136 Potassium 3.8 Chloride 95 L Carbon Dioxide 31 H Anion Gap 14 BUN 22 H Creatinine 1.2 Est GFR ( Amer) 56 Est GFR (Non-Af Amer) 46 Random Glucose 105 Calcium 8.6 Total Bilirubin 0.8 AST 28 ALT 26 Alkaline Phosphatase 59 Total Protein 6.6 Albumin 2.9 L Globulin 3.7 Albumin/Globulin Ratio 0.8 L Assessment & Plan - Assessment and Plan (Free Text) Assessment: 61F with sacral decubitus ulcer Plan: No surgical intervention at this time [facility] [employer] PRN Optifoam to sacrum Air mattress Turn Q2H Further mgmt as per medical team MARIANGEL attending Mily, PGY-1 - Date & Time Date: 03/31/17 Time: 15:30
[2017-03-31] MEDS: Meropenem 1 GM in Sodium Chloride 0.9% 100 ML IVPB SCH (21:14)
--- NOTE | 2017-03-31 22:10 | CP.PCM.PN ---
Subjective - Date & Time of Evaluation Date of Evaluation: 03/31/17 Time of Evaluation: 02:25 - Subjective Subjective: Patient relative complains of pain all over,her wbc is increasing,she has a a sacral wond black unstageable worse in few days. Dr Rogers already ot Picc line Dced and tip sent for culture,now she has Picc line in left arm now. patient is otherwise on oxygen she says she has a clot in right leg will check results of dopplers done Patient started on Vancomycin will also change maxipime to Merrem. She has no Gi symptoms ,no diarrhea reported Objective - Vital Signs/Intake and Output Vital Signs (last 24 hours): Temp Pulse Resp BP Pulse Ox 97.9 F 93 H 20 96/60 L 94 L 03/31/17 15:17 03/31/17 15:17 03/31/17 15:17 03/31/17 15:17 03/31/17 15:17 Intake and Output: 03/31/17 04/01/17 18:59 06:59 Intake Total 240 Output Total 675 Balance -435 - Medications Medications: Current Medications Albuterol Sulfate (Albuterol 0.083% Inhal Cee (2.5 Mg/3 Ml) Ud) 2.5 mg INH RQ6 PRN PRN Reason: Shortness of Breath Last Admin: 03/29/17 08:10 Dose: 2.5 mg Apixaban (Eliquis) 10 mg PO BID [facility] Stop: 04/05/17 18:00 Last Admin: 03/31/17 17:51 Dose: 10 mg Aspirin (Ecotrin) 81 mg PO DAILY [facility] Last Admin: 03/31/17 10:34 Dose: 81 mg Clonazepam (Klonopin) 1 mg PO Q12 [facility] Last Admin: 03/31/17 21:20 Dose: 1 mg Collagenase (Santyl) 0 gm TOP DAILY [facility] Last Admin: 03/31/17 10:25 Dose: Not Given Famotidine (Pepcid) 20 mg PO BID [facility] Last Admin: 03/31/17 17:51 Dose: 20 mg Furosemide (Lasix) 40 mg IVP DAILY [facility] Last Admin: 03/31/17 11:40 Dose: 40 mg Gabapentin (Neurontin) 300 mg PO TID [facility] Last Admin: 03/31/17 17:50 Dose: 300 mg Vancomycin/Sodium Chloride (Vancocin) 1 gm in 200 mls @ 133.333 mls/hr IVPB Q12H [facility] Stop: 04/05/17 10:01 Last Admin: 03/31/17 21:14 Dose: 133.333 mls/hr Meropenem 1 gm/ Sodium (Chloride) 100 mls @ 100 mls/hr IVPB Q8 [facility] Last Admin: 03/31/17 21:14 Dose: 100 mls/hr Isosorbide Mononitrate (Imdur) 30 mg PO DAILY [facility] Last Admin: 03/31/17 10:35 Dose: 30 mg Ketorolac Tromethamine (Toradol) 10 mg PO Q6 PRN PRN Reason: Pain, moderate (4-7) Losartan Potassium (Cozaar) 50 mg PO DAILY [facility] Last Admin: 03/31/17 10:36 Dose: 50 mg Morphine Sulfate (Morphine) 1 mg IVP Q6H PRN PRN Reason: Pain, severe (8-10) Last Admin: 03/31/17 21:13 Dose: 1 mg Nitroglycerin (Nitrostat Sl Tab) 0.4 mg SL Q5M PRN Nystatin (Nystop Topical Powder) 1 applic TOP BID [facility] Last Admin: 03/31/17 17:51 Dose: 1 applic Promethazine HCl/Codeine (Phenergan/Codeine Oral Syrup) 5 ml PO Q4 PRN PRN Reason: Cough Last Admin: 03/29/17 16:25 Dose: 5 ml Ranolazine (Ranexa) 500 mg PO BID [facility] Last Admin: 03/31/17 17:52 Dose: 500 mg Rosuvastatin Calcium (Crestor) 20 mg PO HS [facility] Last Admin: 03/31/17 21:22 Dose: 20 mg Saccharomyces Boulardii (Florastor) 250 mg PO BID [facility] Last Admin: 03/31/17 17:51 Dose: 250 mg Tiotropium [place] (Spiriva) 18 mcg INH RQ24 [facility] Last Admin: 03/31/17 07:41 Dose: 18 mcg - Labs Labs: 03/31/17 06:08 03/31/17 06:08 PT 13.3 SECONDS (9.7-12.2) H 03/20/17 22:39 INR 1.2 03/20/17 22:39 APTT 68 SECONDS (21-34) H 03/23/17 06:51 - Constitutional Appears: No Acute Distress - Head Exam Head Exam: ATRAUMATIC, NORMOCEPHALIC - Eye Exam Eye Exam: Normal appearance Pupil Exam: NORMAL ACCOMODATION - ENT Exam ENT Exam: Mucous Membranes Moist - Neck Exam Neck Exam: Normal Inspection - Respiratory Exam Respiratory Exam: Clear to Ausculation Bilateral, NORMAL BREATHING PATTERN - Cardiovascular Exam Cardiovascular Exam: REGULAR RHYTHM, RRR - GI/Abdominal Exam GI & Abdominal Exam: Soft, Normal Bowel Sounds - Extremities Exam Extremities Exam: Normal Inspection Additional comments: obesity present Assessment and Plan (1) Non-STEMI (non-ST elevated myocardial infarction) Status: Acute (2) Sacral wound Assessment & Plan: seen by Dr Melvin Status: Acute (3) COPD (chronic obstructive pulmonary disease) Status: Chronic (4) Morbidly obese Status: Chronic (5) OPHELIA (obstructive sleep apnea) Status: Chronic (6) Leukocytosis Assessment & Plan: Increasing antibiotics broadened and lines changed including pradhan and Picc line to follow chest xray and culture results Status: Acute
[2017-04-01] MEDS: Meropenem 1 GM in Sodium Chloride 0.9% 100 ML IVPB SCH ×2 (05:28→21:34)
[2017-04-01 06:56] LABS: BASO # 0.1 K/uL (0.0-0.2); BASO % 0.6 % (0.0-2.0); EOS # 0.6 K/uL (0.0-0.7); EOS % 2.8 % (0.0-4.0); LYMPH # 2.8 K/uL (1.0-4.3); LYMPH % 13.2 % (20.0-40.0); MEAN CELL VOLUME 82.3 fL (81.0-99.0); MEAN CORPUSCULAR HEMOGLOBIN 25.3 pg (27.0-31.0); MEAN CORPUSCULAR HGB CONC 30.7 g/dL (33.0-37.0); MEAN PLATELET VOLUME 8.8 fL (7.2-11.7); MONO # 1.4 K/uL (0.0-0.8); MONO % 6.7 % (0.0-10.0); NEUT # 16.6 K/uL (1.8-7.0); NEUT % 76.7 % (50.0-75.0); RBC 4.34 Mil/uL (3.80-5.20); RED CELL DISTRIBUTION WIDTH 16.9 % (11.5-14.5); WHITE BLOOD COUNT 21.6 K/uL (4.8-10.8)
[2017-04-01 07:08] LABS: ALBUMIN 3.1 g/dL (3.5-5.0)
[2017-04-01 07:11] LABS: ALB/GLOB RATIO 0.8 (1.0-2.1)
--- NOTE | 2017-04-01 07:28 | CP.PCM.PN ---
<MarcinHema kaur R - Last Filed: 04/01/17 16:26> Subjective - Date & Time of Evaluation Date of Evaluation: 04/01/17 Time of Evaluation: 07:15 - Subjective Subjective: Patient seen and examined at bedside. Patient stated she has back pain and right flank pain. She is asking for additional pain meds to address her back pain. She admits to improving mild cough w/ yellow sputum. She denies fever, chest pain , abdominal pain, headache, nausea, vomiting, diarrhea, constipation. Objective - Vital Signs/Intake and Output Vital Signs (last 24 hours): Temp Pulse Resp BP Pulse Ox 98 F 80 20 115/75 97 04/01/17 05:20 04/01/17 05:20 04/01/17 05:20 04/01/17 05:20 03/31/17 23:05 Intake and Output: 04/01/17 04/01/17 06:59 18:59 Intake Total 100 Output Total 300 Balance -200 - Medications Medications: Current Medications Albuterol Sulfate (Albuterol 0.083% Inhal Cee (2.5 Mg/3 Ml) Ud) 2.5 mg INH RQ6 PRN PRN Reason: Shortness of Breath Last Admin: 03/29/17 08:10 Dose: 2.5 mg Apixaban (Eliquis) 10 mg PO BID [facility] Stop: 04/05/17 18:00 Last Admin: 03/31/17 17:51 Dose: 10 mg Aspirin (Ecotrin) 81 mg PO DAILY [facility] Last Admin: 03/31/17 10:34 Dose: 81 mg Clonazepam (Klonopin) 1 mg PO Q12 [facility] Last Admin: 03/31/17 21:20 Dose: 1 mg Collagenase (Santyl) 0 gm TOP DAILY [facility] Last Admin: 03/31/17 10:25 Dose: Not Given Famotidine (Pepcid) 20 mg PO BID [facility] Last Admin: 03/31/17 17:51 Dose: 20 mg Furosemide (Lasix) 40 mg IVP DAILY [facility] Last Admin: 03/31/17 11:40 Dose: 40 mg Gabapentin (Neurontin) 300 mg PO TID [facility] Last Admin: 03/31/17 17:50 Dose: 300 mg Vancomycin/Sodium Chloride (Vancocin) 1 gm in 200 mls @ 133.333 mls/hr IVPB Q12H [facility] Stop: 04/05/17 10:01 Last Admin: 03/31/17 21:14 Dose: 133.333 mls/hr Meropenem 1 gm/ Sodium (Chloride) 100 mls @ 100 mls/hr IVPB Q8 [facility] Last Admin: 04/01/17 05:28 Dose: 100 mls/hr Isosorbide Mononitrate (Imdur) 30 mg PO DAILY [facility] Last Admin: 03/31/17 10:35 Dose: 30 mg Ketorolac Tromethamine (Toradol) 10 mg PO Q6 PRN PRN Reason: Pain, moderate (4-7) Losartan Potassium (Cozaar) 50 mg PO DAILY [facility] Last Admin: 03/31/17 10:36 Dose: 50 mg Morphine Sulfate (Morphine) 1 mg IVP Q6H PRN PRN Reason: Pain, severe (8-10) Last Admin: 04/01/17 05:27 Dose: 1 mg Nitroglycerin (Nitrostat Sl Tab) 0.4 mg SL Q5M PRN Nystatin (Nystop Topical Powder) 1 applic TOP BID [facility] Last Admin: 03/31/17 17:51 Dose: 1 applic Promethazine HCl/Codeine (Phenergan/Codeine Oral Syrup) 5 ml PO Q4 PRN PRN Reason: Cough Last Admin: 03/29/17 16:25 Dose: 5 ml Ranolazine (Ranexa) 500 mg PO BID [facility] Last Admin: 03/31/17 17:52 Dose: 500 mg Rosuvastatin Calcium (Crestor) 20 mg PO HS [facility] Last Admin: 03/31/17 21:22 Dose: 20 mg Saccharomyces Boulardii (Florastor) 250 mg PO BID [facility] Last Admin: 03/31/17 17:51 Dose: 250 mg Tiotropium [place] (Spiriva) 18 mcg INH RQ24 [facility] Last Admin: 03/31/17 07:41 Dose: 18 mcg - Labs Labs: 04/01/17 06:37 04/01/17 06:37 PT 13.3 SECONDS (9.7-12.2) H 03/20/17 22:39 INR 1.2 03/20/17 22:39 APTT 68 SECONDS (21-34) H 03/23/17 06:51 - Constitutional Appears: Well - Head Exam Head Exam: ATRAUMATIC, NORMAL INSPECTION, NORMOCEPHALIC - Eye Exam Eye Exam: EOMI, Normal appearance, PERRL - ENT Exam ENT Exam: Mucous Membranes Moist, Normal Exam - Neck Exam Neck Exam: Full ROM, Normal Inspection. absent: Lymphadenopathy - Respiratory Exam Respiratory Exam: Clear to Ausculation Bilateral, NORMAL BREATHING PATTERN - Cardiovascular Exam Cardiovascular Exam: REGULAR RHYTHM, +S1, +S2, Murmur Additional comments: Systolic ejection murmur loudest at the left second intercostal space - GI/Abdominal Exam GI & Abdominal Exam: Soft, Normal Bowel Sounds. absent: Tenderness - Rectal Exam Rectal Exam: Deferred - Extremities Exam Extremities Exam: Full ROM, Normal Capillary Refill, Normal Inspection. absent : Joint Swelling, Pedal Edema - Back Exam Back Exam: tenderness Additional comments: 2 cm sacral ulcer of undetermined length - Neurological Exam Neurological Exam: Alert, Awake, Oriented x3 - Psychiatric Exam Psychiatric exam: Normal Affect, Normal Mood - Skin Skin Exam: Dry, Intact, Normal Color, Warm Additional comments: 2 cm sacral ulcer of undetermined length Assessment and Plan - Assessment and Plan (Free Text) Assessment: (1) Non-STEMI (non-ST elevated myocardial infarction) History of prior myocardial infarction Assessment & Plan: Cardiology (Dr. David) on board-->help appreciated-->signed off 03/24/17 Per cardiology note, bedside ECHO (03/22/17)--> Preserved LV function, no sig valve regurge, mild dilated RV with preserved RV function. Inferobasal and basal septum appear aneurysmal. Troponin 6.05, 7.41, 9.17 Clinically no angina, arrythmia or worsening systolic dysfunction sx's. 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 No plans for c.cath. Optimize medical Rx for CAD. Per cardiology, * ASA 81 mg PO daily * Plavix 75mg PO daily * Crestor 20mg PO qHS * Metoprolol 50mg PO BID (Hold SBP<100 and HR<60) * Losartan 50mg PO daily (Hold SBP<100) * Lasix changed to 40mg IVP Daily * Ranexa 550mg PO bid * On heparin dvt ppx * Continue Imdur 30mg PO daily (hold SBP<100 * [facility] pulmonary Rx for OPHELIA/Obesity * Encourage mobility Pulmonary (Dr. Quiñones) on board-->help appreciated Status: Acute (2) Morbidly obese Status: Chronic * Patient reports she has had unintentional weight loss over the past year * Information Technology Coordinator referral * Physical therapy eval and treat * Occupational eval and treat * OOB (3) SIRS (systemic inflammatory response syndrome) Assessment & Plan: 04/01: wbc 21.6; afebrile 03/31: wbc 24.7; afebrile 03/31: blood culture ordered, urine culture ordered, picc tip culture ordered 03/31: picc line pulled, midline catheter placed 03/31: pradhan replaced 03/31: discontinued cefepime 1gm iv q12. started vancomycin 1gm q12 iv started. vanco trough to be checked 04/01 21:30 03/31: started meropenem 1gm iv q8 03/31: CXR ordered today: "Mild pulmonary vascular congestive changes may have improved slightly however there are vague somewhat more confluent opacities seen in the lung bases left greater than right, that may represent some residual alveolar-type infiltrates related to pulmonary edema/ CHF. Cardiomegaly. 03/30: wbc 18.6 trending up from 17.5; afebrile * 03/29: started cefepime 1gm IV q12 * 03/29: discontinued Zosyn 4.5 IV Q 6hours (Active since 03/21/17) * 03/29: discontinued Vancomycin 1 gram IVQ 12hours (active since on 03/28/17) * 03/28: CXR: "Moderate venous congestion. Patchy left basilar airspace opacity. Enlarged ectactic aorta. Cardiomegaly" * 03/28: Urine culture no growth 03/28: blood culture no growth to date 03/26: MRSA culture -> MRSA not detected * 03/22: CXR: "New right PICC catheter terminates at level of cavoatrial junction. Mild congestive change" * 03/20: CXR: no acute findings * 03/20: CT Chest: "no ct evidence of acute pulmonary embolism, aortic aneurysm, or aortic dissection. [place] airspace disease in the posterio basal segment of the left lower lobe may represent subsegmental atelectasis however pneumonia cannot be excluded. Patient has moderate left hilar lymphadenopathy of uncertain etiology" * 03/20: Blood culture no growth after 4 days X2 * UA (2nd): hematuria-->treat as urinary tract infection-->repeat today * Urine culture (03/22/17): no growth * strep pneumoniae, legionella: negative, and mycoplasma IGM: negative * sacral wound: turn q 2hours, and wound care * Florastor 250mg PO bid Status: Acute (4) Pneumonia Assessment & Plan: 03/30: wbc 18.6 trending up from 17.5; afebrile 03/29: started cefepime 1gm IV q12 * 03/29: discontinued Zosyn 4.5 IV Q 6hours (Active since 03/21/17) * 03/29: discontinued Vancomycin 1 gram IVQ 12hours started on 03/28/17 * CXR 03/28/17-Moderate venous congestion. Patchy left basilar airspace opacity. Enlarged ectactic aorta. Cardiomegaly. * Florastor 250mg PO bid (5) HTN (hypertension) Assessment & Plan: * discontinued Metoprolol 50mg PO BID (Hold SBP<100 and HR<60) * Losartan 50mg PO daily (Hold SBP<100) * Lasix 40mg PO daily (Hold SBP<100) * Ranexa 500mg PO bid * Continue Imdur 30mg PO daily Status: Chronic (6) OPHELIA (obstructive sleep apnea) Status: Chronic * BIPAP * Educated about consistency of wearing the mask at bedside (7) COPD (chronic obstructive pulmonary disease) Status: Chronic * Albuterol 3ml inhaled RQ4 * Continue Spiriva 18mcg inhaled q daily * BIPAP prn- Instructed patient to request Bipap every night * CXR- 03/25/17- Cardiomegaly and pulmonary vnenous congestion (Please see full report) (8) History of Spinal stenosis Status: Chronic * Klonopin 1mg PO Q12h * Gabapentin 300mg PO TID (9) Unstagable Sacral Ulcer in Gluteal Folds 04/01: Santyl once a day topical applied to ulcer. Discussed with surgery, will re-evaluate on tuesday 04/03 and consider debridement at that point. 03/31: Dr Smith of surgery consulted. Dr Rogers spoke with Dr Smith who said sacral ulcer does not need debridement right now 03/31: Wound care nurse Tre Alcazar describes this as an unstageable ulcer * Wound care * Turn Q 2hours (10) Microscopic Hematuria * Multiple UAs with microscopic hematuria * Bladder/ Renal Ultrasound- 03/28/17- Multiple bilateral scattered renal caluli without evidence of gross hydronephrosis. 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 wound care. turn q2 hours. (15) Prophylactic measure Assessment & Plan: * Heparin 5000 units Q 8 hours * GI ppx: Pepcid 20mg PO BID * Wound care * TurnQ 2hours * Aspirin 81mg PO daily * PT/OT eval * OOB DISPOSITION: Dr Rogers spoke with [employer] Liss Padilla and insurance request has been made for [facility] in [place] and we are awaiting approval. <Tolu Rogers - Last Filed: 04/01/17 19:04> Objective - Vital Signs/Intake and Output Vital Signs (last 24 hours): Temp Pulse Resp BP Pulse Ox 98.8 F 87 20 114/69 95 04/01/17 16:00 04/01/17 16:00 04/01/17 16:00 04/01/17 16:00 04/01/17 16:00 Intake and Output: 04/01/17 04/01/17 06:59 18:59 Intake Total 100 Output Total 300 Balance -200 - Medications Medications: Current Medications Albuterol Sulfate (Albuterol 0.083% Inhal Cee (2.5 Mg/3 Ml) Ud) 2.5 mg INH RQ6 PRN PRN Reason: Shortness of Breath Last Admin: 03/29/17 08:10 Dose: 2.5 mg Aspirin (Ecotrin) 81 mg PO DAILY [facility] Last Admin: 04/01/17 09:31 Dose: 81 mg Clonazepam (Klonopin) 1 mg PO Q12 [facility] Last Admin: 04/01/17 09:31 Dose: 1 mg Collagenase (Santyl) 0 gm TOP DAILY [facility] Last Admin: 03/31/17 10:25 Dose: Not Given Collagenase (Santyl) 0 gm TOP DAILY [facility] Docusate Sodium (Colace) 100 mg PO BID [facility] Famotidine (Pepcid) 20 mg PO BID [facility] Last Admin: 04/01/17 18:14 Dose: 20 mg Furosemide (Lasix) 40 mg IVP DAILY [facility] Last Admin: 04/01/17 10:00 Dose: 40 mg Gabapentin (Neurontin) 300 mg PO TID [facility] Last Admin: 04/01/17 18:15 Dose: 300 mg Vancomycin/Sodium Chloride (Vancocin) 1 gm in 200 mls @ 133.333 mls/hr IVPB Q12H [facility] Stop: 04/05/17 10:01 Last Admin: 03/31/17 21:14 Dose: 133.333 mls/hr Meropenem 1 gm/ Sodium (Chloride) 100 mls @ 100 mls/hr IVPB Q8 [facility] Last Admin: 04/01/17 05:28 Dose: 100 mls/hr Isosorbide Mononitrate (Imdur) 30 mg PO DAILY [facility] Last Admin: 04/01/17 09:35 Dose: 30 mg Ketorolac Tromethamine (Toradol) 10 mg PO Q6 PRN PRN Reason: Pain, moderate (4-7) Losartan Potassium (Cozaar) 50 mg PO DAILY [facility] Last Admin: 04/01/17 09:31 Dose: 50 mg Morphine Sulfate (Morphine) 1 mg IVP Q6H PRN PRN Reason: Pain, severe (8-10) Last Admin: 04/01/17 16:03 Dose: 1 mg Nitroglycerin (Nitrostat Sl Tab) 0.4 mg SL Q5M PRN Nystatin (Nystop Topical Powder) 1 applic TOP BID [facility] Last Admin: 04/01/17 18:13 Dose: 1 applic Promethazine HCl/Codeine (Phenergan/Codeine Oral Syrup) 5 ml PO Q4 PRN PRN Reason: Cough Last Admin: 03/29/17 16:25 Dose: 5 ml Ranolazine (Ranexa) 500 mg PO BID [facility] Last Admin: 04/01/17 18:14 Dose: 500 mg Rosuvastatin Calcium (Crestor) 20 mg PO HS [facility] Last Admin: 03/31/17 21:22 Dose: 20 mg Saccharomyces Boulardii (Florastor) 250 mg PO BID [facility] Last Admin: 04/01/17 18:14 Dose: 250 mg Tiotropium [place] (Spiriva) 18 mcg INH RQ24 [facility] Last Admin: 04/01/17 08:10 Dose: 18 mcg - Labs Labs: 04/01/17 06:37 04/01/17 06:37 PT 13.3 SECONDS (9.7-12.2) H 03/20/17 22:39 INR 1.2 03/20/17 22:39 APTT 68 SECONDS (21-34) H 03/23/17 06:51 Attending/Attestation - Attestation I have personally seen and examined this patient.: Yes I have fully participated in the care of the patient.: Yes I have reviewed all pertinent clinical information, including history, physical exam and plan: Yes Notes (Text): 04/01/17 18:49 Patient was seen and examined at 9:45 AM 04/01/17 [id number] with Wound Care Nurse Tre Weiss Lengthy discussion with Wound Care Nurse about the Sacral Ulcer that I also feel is unstageable. Wound Care Nurse later informed me that he had the surgical consultant also look at the sacral ulcer with him and surgery has recommended Santyl application which we will do for the next few days and reevaluate the lesion. If there is no improvement, then I will recontact surgery for debridement. Please note at the time of my exam, patient again asked that her Morphine be increased to 2 mg. Again, patient does not appear to be in any distress is speaking in a normal manner, and no signs of discomfort. Again, extensive conversation as to the dangers of excess of narcotic use as documented on prior notes. Also please note that the patient did NOT complain of constipation to me during FULL ROS. However, review of pulmonology software consultant note, indicates that she complained about constipation. Therefore Colace 100 mg PO 2x/day has been ordered. Tolu Rogers D.O.
[2017-04-01] MEDS: Tiotropium 18 mcg Cap For Inhalation INH SCH (08:10)
--- NOTE | 2017-04-01 08:51 | CP.PCM.PN ---
Subjective - Date & Time of Evaluation Date of Evaluation: 04/01/17 Time of Evaluation: 08:00 - Subjective Subjective: General sx progress note for Dr. Octavia Minor, PGY-1 Pt S & E bedside. Pt reports no problems overnight. States no BM x 4 days, decreased appetite. Denies N/V/F/C. Objective - Vital Signs/Intake and Output Vital Signs (last 24 hours): Temp Pulse Resp BP Pulse Ox 98 F 80 20 115/75 97 04/01/17 05:20 04/01/17 05:20 04/01/17 05:20 04/01/17 05:20 03/31/17 23:05 Intake and Output: 04/01/17 04/01/17 06:59 18:59 Intake Total 100 Output Total 300 Balance -200 - Medications Medications: Current Medications Albuterol Sulfate (Albuterol 0.083% Inhal Cee (2.5 Mg/3 Ml) Ud) 2.5 mg INH RQ6 PRN PRN Reason: Shortness of Breath Last Admin: 03/29/17 08:10 Dose: 2.5 mg Apixaban (Eliquis) 10 mg PO BID [facility] Stop: 04/05/17 18:00 Last Admin: 03/31/17 17:51 Dose: 10 mg Aspirin (Ecotrin) 81 mg PO DAILY [facility] Last Admin: 03/31/17 10:34 Dose: 81 mg Clonazepam (Klonopin) 1 mg PO Q12 [facility] Last Admin: 03/31/17 21:20 Dose: 1 mg Collagenase (Santyl) 0 gm TOP DAILY [facility] Last Admin: 03/31/17 10:25 Dose: Not Given Famotidine (Pepcid) 20 mg PO BID [facility] Last Admin: 03/31/17 17:51 Dose: 20 mg Furosemide (Lasix) 40 mg IVP DAILY [facility] Last Admin: 03/31/17 11:40 Dose: 40 mg Gabapentin (Neurontin) 300 mg PO TID [facility] Last Admin: 03/31/17 17:50 Dose: 300 mg Vancomycin/Sodium Chloride (Vancocin) 1 gm in 200 mls @ 133.333 mls/hr IVPB Q12H [facility] Stop: 04/05/17 10:01 Last Admin: 03/31/17 21:14 Dose: 133.333 mls/hr Meropenem 1 gm/ Sodium (Chloride) 100 mls @ 100 mls/hr IVPB Q8 [facility] Last Admin: 04/01/17 05:28 Dose: 100 mls/hr Isosorbide Mononitrate (Imdur) 30 mg PO DAILY [facility] Last Admin: 03/31/17 10:35 Dose: 30 mg Ketorolac Tromethamine (Toradol) 10 mg PO Q6 PRN PRN Reason: Pain, moderate (4-7) Losartan Potassium (Cozaar) 50 mg PO DAILY [facility] Last Admin: 03/31/17 10:36 Dose: 50 mg Morphine Sulfate (Morphine) 1 mg IVP Q6H PRN PRN Reason: Pain, severe (8-10) Last Admin: 04/01/17 05:27 Dose: 1 mg Nitroglycerin (Nitrostat Sl Tab) 0.4 mg SL Q5M PRN Nystatin (Nystop Topical Powder) 1 applic TOP BID [facility] Last Admin: 03/31/17 17:51 Dose: 1 applic Promethazine HCl/Codeine (Phenergan/Codeine Oral Syrup) 5 ml PO Q4 PRN PRN Reason: Cough Last Admin: 03/29/17 16:25 Dose: 5 ml Ranolazine (Ranexa) 500 mg PO BID [facility] Last Admin: 03/31/17 17:52 Dose: 500 mg Rosuvastatin Calcium (Crestor) 20 mg PO HS [facility] Last Admin: 03/31/17 21:22 Dose: 20 mg Saccharomyces Boulardii (Florastor) 250 mg PO BID [facility] Last Admin: 03/31/17 17:51 Dose: 250 mg Tiotropium [place] (Spiriva) 18 mcg INH RQ24 [facility] Last Admin: 04/01/17 08:10 Dose: 18 mcg - Labs Labs: 04/01/17 06:37 04/01/17 06:37 PT 13.3 SECONDS (9.7-12.2) H 03/20/17 22:39 INR 1.2 03/20/17 22:39 APTT 68 SECONDS (21-34) H 03/23/17 06:51 - Constitutional Appears: Non-toxic, No Acute Distress - Head Exam Head Exam: ATRAUMATIC, NORMAL INSPECTION, NORMOCEPHALIC Additional comments: morbidly obese - Eye Exam Eye Exam: EOMI, Normal appearance - ENT Exam ENT Exam: Mucous Membranes Moist, Normal Exam - Neck Exam Neck Exam: Full ROM, Normal Inspection - Respiratory Exam Respiratory Exam: Clear to Ausculation Bilateral, Wheezes (minimal at bases), NORMAL BREATHING PATTERN. absent: Decreased Breath Sounds, Rhonchi - Cardiovascular Exam Cardiovascular Exam: REGULAR RHYTHM, +S1, +S2 - GI/Abdominal Exam GI & Abdominal Exam: Soft, Normal Bowel Sounds. absent: Distended (morbidly obese), Tenderness - Neurological Exam Neurological Exam: Alert, Awake, CN II-XII Intact, Oriented x3 - Psychiatric Exam Psychiatric exam: Normal Affect, Normal Mood - Skin Skin Exam: Erythema (at margins of sacral ulcer), Warm. absent: Abrasion, Diaphoretic, Intact (stage 2 sacral decubitus ulcer) Additional comments: sacral decubitus ulcer, approximately 4 x 7 cm, granulation tissue present at base, no drainage, erythematous margin, no necrotic tissue visualized Assessment and Plan - Assessment and Plan (Free Text) Assessment: 61F w/sacral decubitus ulcer, stable Plan: No surgical intervention at this time Cont Medihoney PRN Optifoam to sacrum Air mattress Turn Q2H Encouraged pt movement in bed Wound care as per nursing Further mgmt as per medical team Please re-consult as needed MARIANGEL attending Mily, PGY-1
[2017-04-01] MEDS: Saccharomyces Boulardi 250 mg Cap PO SCH ×2 (09:31→18:14)
[2017-04-01] MEDS: Ranolazine 500 mg Extended Release Tablets PO SCH ×2 (09:33→18:14)
--- NOTE | 2017-04-01 11:36 | CP.PCM.PN ---
Subjective - Date & Time of Evaluation Date of Evaluation: 04/01/17 Time of Evaluation: 09:35 - Subjective Subjective: Patient seen and examined. Complaining of back pain and constipation Complaining of cough productive of scanty sputum denies fever chills, denies chest pain Objective - Vital Signs/Intake and Output Vital Signs (last 24 hours): Temp Pulse Resp BP Pulse Ox 98.0 F 108 H 18 100/68 96 04/01/17 08:51 04/01/17 08:51 04/01/17 08:51 04/01/17 08:51 04/01/17 08:51 Intake and Output: 04/01/17 04/01/17 06:59 18:59 Intake Total 100 Output Total 300 Balance -200 - Medications Medications: Current Medications Albuterol Sulfate (Albuterol 0.083% Inhal Cee (2.5 Mg/3 Ml) Ud) 2.5 mg INH RQ6 PRN PRN Reason: Shortness of Breath Last Admin: 03/29/17 08:10 Dose: 2.5 mg Apixaban (Eliquis) 10 mg PO BID [facility] Stop: 04/05/17 18:00 Last Admin: 04/01/17 09:33 Dose: 10 mg Aspirin (Ecotrin) 81 mg PO DAILY [facility] Last Admin: 04/01/17 09:31 Dose: 81 mg Clonazepam (Klonopin) 1 mg PO Q12 [facility] Last Admin: 04/01/17 09:31 Dose: 1 mg Collagenase (Santyl) 0 gm TOP DAILY [facility] Last Admin: 03/31/17 10:25 Dose: Not Given Collagenase (Santyl) 0 gm TOP DAILY [facility] Famotidine (Pepcid) 20 mg PO BID [facility] Last Admin: 04/01/17 09:31 Dose: 20 mg Furosemide (Lasix) 40 mg IVP DAILY [facility] Last Admin: 03/31/17 11:40 Dose: 40 mg Gabapentin (Neurontin) 300 mg PO TID [facility] Last Admin: 04/01/17 09:31 Dose: 300 mg Vancomycin/Sodium Chloride (Vancocin) 1 gm in 200 mls @ 133.333 mls/hr IVPB Q12H [facility] Stop: 04/05/17 10:01 Last Admin: 03/31/17 21:14 Dose: 133.333 mls/hr Meropenem 1 gm/ Sodium (Chloride) 100 mls @ 100 mls/hr IVPB Q8 [facility] Last Admin: 04/01/17 05:28 Dose: 100 mls/hr Isosorbide Mononitrate (Imdur) 30 mg PO DAILY [facility] Last Admin: 03/31/17 10:35 Dose: 30 mg Ketorolac Tromethamine (Toradol) 10 mg PO Q6 PRN PRN Reason: Pain, moderate (4-7) Losartan Potassium (Cozaar) 50 mg PO DAILY [facility] Last Admin: 04/01/17 09:31 Dose: 50 mg Morphine Sulfate (Morphine) 1 mg IVP Q6H PRN PRN Reason: Pain, severe (8-10) Last Admin: 04/01/17 05:27 Dose: 1 mg Nitroglycerin (Nitrostat Sl Tab) 0.4 mg SL Q5M PRN Nystatin (Nystop Topical Powder) 1 applic TOP BID [facility] Last Admin: 03/31/17 17:51 Dose: 1 applic Promethazine HCl/Codeine (Phenergan/Codeine Oral Syrup) 5 ml PO Q4 PRN PRN Reason: Cough Last Admin: 03/29/17 16:25 Dose: 5 ml Ranolazine (Ranexa) 500 mg PO BID [facility] Last Admin: 04/01/17 09:33 Dose: 500 mg Rosuvastatin Calcium (Crestor) 20 mg PO HS [facility] Last Admin: 03/31/17 21:22 Dose: 20 mg Saccharomyces Boulardii (Florastor) 250 mg PO BID [facility] Last Admin: 04/01/17 09:31 Dose: 250 mg Tiotropium [place] (Spiriva) 18 mcg INH RQ24 [facility] Last Admin: 04/01/17 08:10 Dose: 18 mcg - Labs Labs: 04/01/17 06:37 04/01/17 06:37 PT 13.3 SECONDS (9.7-12.2) H 03/20/17 22:39 INR 1.2 03/20/17 22:39 APTT 68 SECONDS (21-34) H 03/23/17 06:51 - Head Exam Head Exam: ATRAUMATIC, NORMOCEPHALIC - Eye Exam Eye Exam: Normal appearance - ENT Exam ENT Exam: Mucous Membranes Moist - Neck Exam Neck Exam: Normal Inspection - Respiratory Exam Respiratory Exam: Rhonchi, Wheezes - Cardiovascular Exam Cardiovascular Exam: REGULAR RHYTHM - GI/Abdominal Exam GI & Abdominal Exam: Soft, Normal Bowel Sounds Assessment and Plan (1) COPD (chronic obstructive pulmonary disease) Assessment & Plan: continue nebulizer treatment Continue antibiotics as per ID for pneumonia Consider anti tussive seen by surgery for decubiti Continue anticoagulation for DVT Being treated for non-ST elevon CT Status: Chronic (2) Non-STEMI (non-ST elevated myocardial infarction) Status: Acute (3) SIRS (systemic inflammatory response syndrome) Status: Acute (4) OPHELIA (obstructive sleep apnea) Status: Chronic
[2017-04-01] MEDS: Vancomycin 1 gm/NS 200 ml 1 GM/200 ML BAG IVPB SCH (22:55)
[2017-04-02] MEDS: Meropenem 1 GM in Sodium Chloride 0.9% 100 ML IVPB SCH ×3 (06:12→21:00)
--- NOTE | 2017-04-02 07:21 | CP.PCM.PN ---
<Hema Burch R - Last Filed: 04/02/17 17:51> Subjective - Date & Time of Evaluation Date of Evaluation: 04/02/17 Time of Evaluation: 07:15 - Subjective Subjective: Patient was seen and examined at bedside. Patient stable and in NAD. Reports some difficulty sleeping last night 2/2 frequent position changing. Her current pain level is a "10/10", localized to the lower back and R flank as well as overlying the wound. Requesting more pain medication at this time. Patient admits to mild nausea and dry throat as well. Of note, patient states that she has not had a bowel movement or urinated in 3-4 days. Denies feelings of constipation, urgency or even the need to go. Also mentions diminished appetite as well. Denies episodes of vomiting, abdominal pain, chest pain, SOB, fever, chills, cough or leg pain. Objective - Vital Signs/Intake and Output Vital Signs (last 24 hours): Temp Pulse Resp BP Pulse Ox 98.1 F 73 20 115/69 98 04/02/17 04:00 04/02/17 04:00 04/02/17 04:00 04/02/17 04:00 04/01/17 23:00 Intake and Output: 04/02/17 04/02/17 06:59 18:59 Intake Total 720 Output Total 600 Balance 120 - Medications Medications: Current Medications Albuterol Sulfate (Albuterol 0.083% Inhal Cee (2.5 Mg/3 Ml) Ud) 2.5 mg INH RQ6 PRN PRN Reason: Shortness of Breath Last Admin: 03/29/17 08:10 Dose: 2.5 mg Aspirin (Ecotrin) 81 mg PO DAILY [facility] Last Admin: 04/01/17 09:31 Dose: 81 mg Clonazepam (Klonopin) 1 mg PO Q12 [facility] Last Admin: 04/01/17 21:34 Dose: 1 mg Collagenase (Santyl) 0 gm TOP DAILY [facility] Last Admin: 03/31/17 10:25 Dose: Not Given Collagenase (Santyl) 0 gm TOP DAILY [facility] Docusate Sodium (Colace) 100 mg PO BID [facility] Last Admin: 04/01/17 20:00 Dose: Not Given Famotidine (Pepcid) 20 mg PO BID [facility] Last Admin: 04/01/17 18:14 Dose: 20 mg Furosemide (Lasix) 40 mg IVP DAILY [facility] Last Admin: 04/01/17 10:00 Dose: 40 mg Gabapentin (Neurontin) 300 mg PO TID [facility] Last Admin: 04/01/17 18:15 Dose: 300 mg Vancomycin/Sodium Chloride (Vancocin) 1 gm in 200 mls @ 133.333 mls/hr IVPB Q12H [facility] Stop: 04/05/17 10:01 Last Admin: 04/01/17 22:55 Dose: 133.333 mls/hr Meropenem 1 gm/ Sodium (Chloride) 100 mls @ 100 mls/hr IVPB Q8 [facility] Last Admin: 04/02/17 06:12 Dose: 100 mls/hr Isosorbide Mononitrate (Imdur) 30 mg PO DAILY [facility] Last Admin: 04/01/17 09:35 Dose: 30 mg Ketorolac Tromethamine (Toradol) 10 mg PO Q6 PRN PRN Reason: Pain, moderate (4-7) Last Admin: 04/02/17 00:33 Dose: 10 mg Losartan Potassium (Cozaar) 50 mg PO DAILY [facility] Last Admin: 04/01/17 09:31 Dose: 50 mg Morphine Sulfate (Morphine) 1 mg IVP Q6H PRN PRN Reason: Pain, severe (8-10) Last Admin: 04/01/17 16:03 Dose: 1 mg Nitroglycerin (Nitrostat Sl Tab) 0.4 mg SL Q5M PRN Nystatin (Nystop Topical Powder) 1 applic TOP BID [facility] Last Admin: 04/01/17 18:13 Dose: 1 applic Promethazine HCl/Codeine (Phenergan/Codeine Oral Syrup) 5 ml PO Q4 PRN PRN Reason: Cough Last Admin: 03/29/17 16:25 Dose: 5 ml Ranolazine (Ranexa) 500 mg PO BID [facility] Last Admin: 04/01/17 18:14 Dose: 500 mg Rosuvastatin Calcium (Crestor) 20 mg PO HS [facility] Last Admin: 04/01/17 21:34 Dose: 20 mg Saccharomyces Boulardii (Florastor) 250 mg PO BID [facility] Last Admin: 04/01/17 18:14 Dose: 250 mg Tiotropium [place] (Spiriva) 18 mcg INH RQ24 [facility] Last Admin: 04/01/17 08:10 Dose: 18 mcg - Labs Labs: 04/01/17 06:37 04/01/17 06:37 PT 13.3 SECONDS (9.7-12.2) H 03/20/17 22:39 INR 1.2 03/20/17 22:39 APTT 68 SECONDS (21-34) H 03/23/17 06:51 - Constitutional Appears: Well - Head Exam Head Exam: ATRAUMATIC, NORMAL INSPECTION, NORMOCEPHALIC - Eye Exam Eye Exam: EOMI, Normal appearance, PERRL - ENT Exam ENT Exam: Mucous Membranes Moist, Normal Exam - Neck Exam Neck Exam: Full ROM, Normal Inspection. absent: Lymphadenopathy - Respiratory Exam Respiratory Exam: Clear to Ausculation Bilateral, NORMAL BREATHING PATTERN - Cardiovascular Exam Cardiovascular Exam: REGULAR RHYTHM Additional comments: Systolic ejection murmur loudest at the left second intercostal space - GI/Abdominal Exam GI & Abdominal Exam: Soft, Normal Bowel Sounds. absent: Tenderness - Rectal Exam Rectal Exam: Deferred - Extremities Exam Extremities Exam: absent: Calf Tenderness - Back Exam Additional comments: 2 cm stage 2 right sacral ulcer unstagable ulcer within gluteal folds - Neurological Exam Neurological Exam: Alert, Awake, Oriented x3 - Psychiatric Exam Psychiatric exam: Normal Affect, Normal Mood - Skin Skin Exam: Dry, Intact, Normal Color, Warm Assessment and Plan - Assessment and Plan (Free Text) Assessment: (1) Non-STEMI (non-ST elevated myocardial infarction) History of prior myocardial infarction Assessment & Plan: Cardiology (Dr. David) on board-->help appreciated-->signed off 03/24/17 Per cardiology note, bedside ECHO (03/22/17)--> Preserved LV function, no sig valve regurge, mild dilated RV with preserved RV function. Inferobasal and basal septum appear aneurysmal. Troponin 6.05, 7.41, 9.17 Clinically no angina, arrythmia or worsening systolic dysfunction sx's. 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 No plans for c.cath. [facility] medical Rx for CAD. Per cardiology, * ASA 81 mg PO daily * Plavix 75mg PO daily * Crestor 20mg PO qHS * Metoprolol 50mg PO BID (Hold SBP<100 and HR<60) * Losartan 50mg PO daily (Hold SBP<100) * Lasix changed to 40mg IVP Daily * Ranexa 550mg PO bid * On heparin dvt ppx * Continue Imdur 30mg PO daily (hold SBP<100 * [facility] pulmonary Rx for OPHELIA/Obesity * Encourage mobility Pulmonary (Dr. Quiñones) on board-->help appreciated Status: Acute (2) Morbidly obese Status: Chronic * Patient reports she has had unintentional weight loss over the past year * Box Office Manager referral * Physical therapy eval and treat * Occupational eval and treat * OOB (3) SIRS (systemic inflammatory response syndrome) Assessment & Plan: 04/02: wbc 20.2 04/02: Will hold vanco today and wait for repeat vanco trough tomorrow AM. 04/02: discontinued lasix due to low BP 04/02: discontinued toradol, ordered percocet 5/325mg 1 tab q6 for pain 04/02: vanco trough elevated at 23.3 04/02: urine culture negative; blood culture negative to date; PICC tip culture negative 04/01: wbc 21.6; afebrile 03/31: wbc 24.7; afebrile 03/31: blood culture ordered, urine culture ordered, picc tip culture ordered 03/31: picc line pulled, midline catheter placed, pradhan replaced 03/31: discontinued cefepime 1gm iv q12. started vancomycin 1gm q12 iv started. vanco trough to be checked 04/01 21:30 03/31: started meropenem 1gm iv q8 03/31: CXR ordered today: "Mild pulmonary vascular congestive changes may have improved slightly however there are vague somewhat more confluent opacities seen in the lung bases left greater than right, that may represent some residual alveolar-type infiltrates related to pulmonary edema/ CHF. Cardiomegaly. 03/30: wbc 18.6 trending up from 17.5; afebrile * 03/29: started cefepime 1gm IV q12 * 03/29: discontinued Zosyn 4.5 IV Q 6hours (Active since 03/21/17) * 03/29: discontinued Vancomycin 1 gram IVQ 12hours (active since on 03/28/17) * 03/28: CXR: "Moderate venous congestion. Patchy left basilar airspace opacity. Enlarged ectactic aorta. Cardiomegaly" * 03/28: Urine culture no growth 03/28: blood culture no growth to date 03/26: MRSA culture -> MRSA not detected * 03/22: CXR: "New right PICC catheter terminates at level of cavoatrial junction. Mild congestive change" * 03/20: CXR: no acute findings * 03/20: CT Chest: "no ct evidence of acute pulmonary embolism, aortic aneurysm, or aortic dissection. [place] airspace disease in the posterio basal segment of the left lower lobe may represent subsegmental atelectasis however pneumonia cannot be excluded. Patient has moderate left hilar lymphadenopathy of uncertain etiology" * 03/20: Blood culture no growth after 4 days X2 * UA (2nd): hematuria-->treat as urinary tract infection-->repeat today * Urine culture (03/22/17): no growth * strep pneumoniae, legionella: negative, and mycoplasma IGM: negative * sacral wound: turn q 2hours, and wound care * Florastor 250mg PO bid Status: Acute (4) Pneumonia Assessment & Plan: 03/30: wbc 18.6 trending up from 17.5; afebrile 03/29: started cefepime 1gm IV q12 * 03/29: discontinued Zosyn 4.5 IV Q 6hours (Active since 03/21/17) * 03/29: discontinued Vancomycin 1 gram IVQ 12hours started on 03/28/17 * CXR 03/28/17-Moderate venous congestion. Patchy left basilar airspace opacity. Enlarged ectactic aorta. Cardiomegaly. * Florastor 250mg PO bid (5) HTN (hypertension) Assessment & Plan: * discontinued Metoprolol 50mg PO BID (Hold SBP<100 and HR<60) * Losartan 50mg PO daily (Hold SBP<100) * Lasix 40mg PO daily (Hold SBP<100) * Ranexa 500mg PO bid * Continue Imdur 30mg PO daily Status: Chronic (6) OPHELIA (obstructive sleep apnea) Status: Chronic * BIPAP * Educated about consistency of wearing the mask at bedside (7) COPD (chronic obstructive pulmonary disease) Status: Chronic * Albuterol 3ml inhaled RQ4 * Continue Spiriva 18mcg inhaled q daily * BIPAP prn- Instructed patient to request Bipap every night * CXR- 03/25/17- Cardiomegaly and pulmonary vnenous congestion (Please see full report) (8) History of Spinal stenosis Status: Chronic * Klonopin 1mg PO Q12h * Gabapentin 300mg PO TID (9) Unstagable Sacral Ulcer in Gluteal Folds 04/01: Santyl once a day topical applied to ulcer. Discussed with surgery, will re-evaluate on tuesday 04/03 and consider debridement at that point. 03/31: Dr Smith of surgery consulted. Dr Rogers spoke with Dr Smith who said sacral ulcer does not need debridement right now 03/31: Wound care nurse Tre Alcazar describes this as an unstageable ulcer * Wound care * Turn Q 2hours (10) Microscopic Hematuria * Multiple UAs with microscopic hematuria * Bladder/ Renal Ultrasound- 03/28/17- Multiple bilateral scattered renal caluli without evidence of gross hydronephrosis. 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 wound care. turn q2 hours. (15) Prophylactic measure Assessment & Plan: * Heparin 5000 units Q 8 hours * GI ppx: Pepcid 20mg PO BID * Wound care * TurnQ 2hours * Aspirin 81mg PO daily * PT/OT eval * OOB DISPOSITION: Dr Rogers spoke with Refinery Process Engineer Liss Padilla and insurance request has been made for [employer] [facility] in [place] and we are awaiting approval. <Tolu Rogers - Last Filed: 04/02/17 18:59> Objective - Vital Signs/Intake and Output Vital Signs (last 24 hours): Temp Pulse Resp BP Pulse Ox 98.2 F 81 20 97/61 L 96 07/14/17 15:17 04/02/17 15:17 04/02/17 15:17 04/02/17 15:17 04/02/17 15:17 Intake and Output: 04/02/17 04/02/17 06:59 18:59 Intake Total 720 360 Output Total 600 150 Balance 120 210 - Medications Medications: Current Medications Albuterol Sulfate (Albuterol 0.083% Inhal Cee (2.5 Mg/3 Ml) Ud) 2.5 mg INH RQ6 PRN PRN Reason: Shortness of Breath Last Admin: 03/29/17 08:10 Dose: 2.5 mg Aspirin (Ecotrin) 81 mg PO DAILY [facility] Last Admin: 04/02/17 10:22 Dose: 81 mg Clonazepam (Klonopin) 1 mg PO Q12 [facility] Last Admin: 04/02/17 10:23 Dose: 1 mg Collagenase (Santyl) 0 gm TOP DAILY [facility] Last Admin: 04/02/17 10:29 Dose: Not Given Collagenase (Santyl) 0 gm TOP DAILY [facility] Last Admin: 04/02/17 10:25 Dose: 1 applic Docusate Sodium (Colace) 100 mg PO BID [facility] Last Admin: 04/02/17 10:22 Dose: 100 mg Famotidine (Pepcid) 20 mg PO BID [facility] Last Admin: 04/02/17 10:22 Dose: 20 mg Gabapentin (Neurontin) 300 mg PO TID [facility] Last Admin: 04/02/17 13:15 Dose: 300 mg Meropenem 1 gm/ Sodium (Chloride) 100 mls @ 100 mls/hr IVPB Q8 [facility] Last Admin: 04/02/17 13:18 Dose: 100 mls/hr Isosorbide Mononitrate (Imdur) 30 mg PO DAILY [facility] Last Admin: 04/02/17 10:30 Dose: Not Given Losartan Potassium (Cozaar) 50 mg PO DAILY [facility] Last Admin: 04/02/17 10:30 Dose: Not Given Morphine Sulfate (Morphine) 1 mg IVP Q6H PRN PRN Reason: Pain, severe (8-10) Last Admin: 04/02/17 10:20 Dose: 1 mg Nitroglycerin (Nitrostat Sl Tab) 0.4 mg SL Q5M PRN Nystatin (Nystop Topical Powder) 1 applic TOP BID [facility] Last Admin: 04/02/17 10:30 Dose: 1 applic Oxycodone/Acetaminophen (Percocet 5/325 Mg Tab) 1 tab PO Q6H PRN PRN Reason: Pain, moderate (4-7) Stop: 04/05/17 09:59 Last Admin: 04/02/17 13:15 Dose: 1 tab Promethazine HCl/Codeine (Phenergan/Codeine Oral Syrup) 5 ml PO Q4 PRN PRN Reason: Cough Last Admin: 03/29/17 16:25 Dose: 5 ml Ranolazine (Ranexa) 500 mg PO BID [facility] Last Admin: 04/02/17 10:23 Dose: 500 mg Rosuvastatin Calcium (Crestor) 20 mg PO HS [facility] Last Admin: 04/01/17 21:34 Dose: 20 mg Saccharomyces Boulardii (Florastor) 250 mg PO BID [facility] Last Admin: 04/02/17 10:22 Dose: 250 mg Tiotropium [place] (Spiriva) 18 mcg INH RQ24 [facility] Last Admin: 04/02/17 08:06 Dose: 18 mcg - Labs Labs: 04/02/17 08:34 04/02/17 08:34 PT 13.3 SECONDS (9.7-12.2) H 03/20/17 22:39 INR 1.2 03/20/17 22:39 APTT 68 SECONDS (21-34) H 03/23/17 06:51 Attending/Attestation - Attestation I have personally seen and examined this patient.: Yes I have fully participated in the care of the patient.: Yes I have reviewed all pertinent clinical information, including history, physical exam and plan: Yes Notes (Text): 04/02/17 18:58 Patient was seen and examined at 6 PM. Exam, Assessment and Plan were thoroughly gone over with the Resident. Tolu Rogers D.O.
[2017-04-02] MEDS: Tiotropium 18 mcg Cap For Inhalation INH SCH (08:06)
[2017-04-02 08:49] LABS: BASO # 0.2 K/uL (0.0-0.2); EOS # 0.7 K/uL (0.0-0.7); EOS % 3.6 % (0.0-4.0); HEMOGLOBIN 10.9 g/dL (11.0-16.0); LYMPH # 1.7 K/uL (1.0-4.3); LYMPH % 8.6 % (20.0-40.0); MEAN CORPUSCULAR HEMOGLOBIN 25.6 pg (27.0-31.0); MEAN CORPUSCULAR HGB CONC 30.8 g/dL (33.0-37.0); MEAN PLATELET VOLUME 8.4 fL (7.2-11.7); MONO # 1.1 K/uL (0.0-0.8); MONO % 5.7 % (0.0-10.0); NEUT # 16.4 K/uL (1.8-7.0); NEUT % 81.1 % (50.0-75.0); PLATELET COUNT 394 K/uL (130-400); RBC 4.27 Mil/uL (3.80-5.20); RED CELL DISTRIBUTION WIDTH 16.8 % (11.5-14.5); WHITE BLOOD COUNT 20.2 K/uL (4.8-10.8)
[2017-04-02 09:06] LABS: ALB/GLOB RATIO 0.8 (1.0-2.1); CALCIUM 9.4 mg/dl (8.6-10.4)
[2017-04-02 09:36] LABS: EOSINOPHIL 4 % (0-4); LYMPHOCYTE 10 % (20-40); MONOCYTE 5 % (0-10); NEUTROPHIL 81 % (50-75); PLATELET ESTIMATE NORMAL (NORMAL); TOTAL CELLS COUNTED 100
[2017-04-02 09:37] LABS: ANISOCYTOSIS SLIGHT; HYPOCHROMIC SLIGHT; POIKILOCYTOSIS SLIGHT
[2017-04-02 09:38] LABS: LARGE PLATELETS PRESENT; TARGET CELLS SLIGHT
[2017-04-02] MEDS: Saccharomyces Boulardi 250 mg Cap PO SCH ×2 (10:22→19:44)
[2017-04-02] MEDS: Ranolazine 500 mg Extended Release Tablets PO SCH ×2 (10:23→19:44)
[2017-04-02] MEDS: Vancomycin 1 gm/NS 200 ml 1 GM/200 ML BAG IVPB SCH (10:24)
[2017-04-02] MEDS: Collagenase 250 Units/gm Ointment(30 gm) TOP SCH ×2 (10:25→10:29)
[2017-04-02] MEDS: Oxycodone/Acetaminophen 5/325 mg Tab PO PRN (13:15)
--- NOTE | 2017-04-02 13:20 | CP.PCM.PN ---
Objective - Vital Signs/Intake and Output Vital Signs (last 24 hours): Temp Pulse Resp BP Pulse Ox 97.3 F L 69 18 104/57 L 98 04/02/17 07:00 04/02/17 07:00 04/02/17 07:00 04/02/17 07:00 04/02/17 07:00 Intake and Output: 04/02/17 04/02/17 06:59 18:59 Intake Total 720 Output Total 600 Balance 120 - Medications Medications: Current Medications Albuterol Sulfate (Albuterol 0.083% Inhal Cee (2.5 Mg/3 Ml) Ud) 2.5 mg INH RQ6 PRN PRN Reason: Shortness of Breath Last Admin: 03/29/17 08:10 Dose: 2.5 mg Aspirin (Ecotrin) 81 mg PO DAILY [facility] Last Admin: 04/02/17 10:22 Dose: 81 mg Clonazepam (Klonopin) 1 mg PO Q12 [facility] Last Admin: 04/02/17 10:23 Dose: 1 mg Collagenase (Santyl) 0 gm TOP DAILY [facility] Last Admin: 04/02/17 10:29 Dose: Not Given Collagenase (Santyl) 0 gm TOP DAILY [facility] Last Admin: 04/02/17 10:25 Dose: 1 applic Docusate Sodium (Colace) 100 mg PO BID [facility] Last Admin: 04/02/17 10:22 Dose: 100 mg Famotidine (Pepcid) 20 mg PO BID [facility] Last Admin: 04/02/17 10:22 Dose: 20 mg Gabapentin (Neurontin) 300 mg PO TID [facility] Last Admin: 04/02/17 13:15 Dose: 300 mg Meropenem 1 gm/ Sodium (Chloride) 100 mls @ 100 mls/hr IVPB Q8 [facility] Last Admin: 04/02/17 13:18 Dose: 100 mls/hr Isosorbide Mononitrate (Imdur) 30 mg PO DAILY [facility] Last Admin: 04/02/17 10:30 Dose: Not Given Losartan Potassium (Cozaar) 50 mg PO DAILY [facility] Last Admin: 04/02/17 10:30 Dose: Not Given Morphine Sulfate (Morphine) 1 mg IVP Q6H PRN PRN Reason: Pain, severe (8-10) Last Admin: 04/02/17 10:20 Dose: 1 mg Nitroglycerin (Nitrostat Sl Tab) 0.4 mg SL Q5M PRN Nystatin (Nystop Topical Powder) 1 applic TOP BID [facility] Last Admin: 04/02/17 10:30 Dose: 1 applic Oxycodone/Acetaminophen (Percocet 5/325 Mg Tab) 1 tab PO Q6H PRN PRN Reason: Pain, moderate (4-7) Stop: 04/05/17 09:59 Last Admin: 04/02/17 13:15 Dose: 1 tab Promethazine HCl/Codeine (Phenergan/Codeine Oral Syrup) 5 ml PO Q4 PRN PRN Reason: Cough Last Admin: 03/29/17 16:25 Dose: 5 ml Ranolazine (Ranexa) 500 mg PO BID [facility] Last Admin: 04/02/17 10:23 Dose: 500 mg Rosuvastatin Calcium (Crestor) 20 mg PO HS [facility] Last Admin: 04/01/17 21:34 Dose: 20 mg Saccharomyces Boulardii (Florastor) 250 mg PO BID [facility] Last Admin: 04/02/17 10:22 Dose: 250 mg Tiotropium [place] (Spiriva) 18 mcg INH RQ24 [facility] Last Admin: 04/02/17 08:06 Dose: 18 mcg - Labs Labs: 04/02/17 08:34 04/02/17 08:34 PT 13.3 SECONDS (9.7-12.2) H 03/20/17 22:39 INR 1.2 03/20/17 22:39 APTT 68 SECONDS (21-34) H 03/23/17 06:51 Assessment and Plan (1) COPD (chronic obstructive pulmonary disease) Status: Chronic (2) Non-STEMI (non-ST elevated myocardial infarction) Status: Acute (3) SIRS (systemic inflammatory response syndrome) Status: Acute (4) OPHELIA (obstructive sleep apnea) Status: Chronic
--- NOTE | 2017-04-02 18:08 | CP.PCM.PN ---
Subjective - Date & Time of Evaluation Date of Evaluation: 04/02/17 Time of Evaluation: 01:00 - Subjective Subjective: Patient was seen today she feels little better still with nasal oxygen and has a new left arm picc line,she has a sacral wound and adviesed to move in bed to change her position,she has had long hospitalization,denies any urinary complaints or diarrhea Objective - Vital Signs/Intake and Output Vital Signs (last 24 hours): Temp Pulse Resp BP Pulse Ox 98.2 F 81 20 97/61 L 96 04/02/17 15:17 04/02/17 15:17 04/02/17 15:17 04/02/17 15:17 04/02/17 15:17 Intake and Output: 04/02/17 04/02/17 06:59 18:59 Intake Total 720 360 Output Total 600 150 Balance 120 210 - Medications Medications: Current Medications Albuterol Sulfate (Albuterol 0.083% Inhal Cee (2.5 Mg/3 Ml) Ud) 2.5 mg INH RQ6 PRN PRN Reason: Shortness of Breath Last Admin: 03/29/17 08:10 Dose: 2.5 mg Aspirin (Ecotrin) 81 mg PO DAILY [facility] Last Admin: 04/02/17 10:22 Dose: 81 mg Clonazepam (Klonopin) 1 mg PO Q12 [facility] Last Admin: 04/02/17 10:23 Dose: 1 mg Collagenase (Santyl) 0 gm TOP DAILY [facility] Last Admin: 04/02/17 10:29 Dose: Not Given Collagenase (Santyl) 0 gm TOP DAILY [facility] Last Admin: 04/02/17 10:25 Dose: 1 applic Docusate Sodium (Colace) 100 mg PO BID [facility] Last Admin: 04/02/17 10:22 Dose: 100 mg Famotidine (Pepcid) 20 mg PO BID [facility] Last Admin: 04/02/17 10:22 Dose: 20 mg Gabapentin (Neurontin) 300 mg PO TID [facility] Last Admin: 04/02/17 13:15 Dose: 300 mg Meropenem 1 gm/ Sodium (Chloride) 100 mls @ 100 mls/hr IVPB Q8 [facility] Last Admin: 04/02/17 13:18 Dose: 100 mls/hr Isosorbide Mononitrate (Imdur) 30 mg PO DAILY [facility] Last Admin: 04/02/17 10:30 Dose: Not Given Losartan Potassium (Cozaar) 50 mg PO DAILY [facility] Last Admin: 04/02/17 10:30 Dose: Not Given Morphine Sulfate (Morphine) 1 mg IVP Q6H PRN PRN Reason: Pain, severe (8-10) Last Admin: 04/02/17 10:20 Dose: 1 mg Nitroglycerin (Nitrostat Sl Tab) 0.4 mg SL Q5M PRN Nystatin (Nystop Topical Powder) 1 applic TOP BID [facility] Last Admin: 04/02/17 10:30 Dose: 1 applic Oxycodone/Acetaminophen (Percocet 5/325 Mg Tab) 1 tab PO Q6H PRN PRN Reason: Pain, moderate (4-7) Stop: 04/05/17 09:59 Last Admin: 04/02/17 13:15 Dose: 1 tab Promethazine HCl/Codeine (Phenergan/Codeine Oral Syrup) 5 ml PO Q4 PRN PRN Reason: Cough Last Admin: 03/29/17 16:25 Dose: 5 ml Ranolazine (Ranexa) 500 mg PO BID [facility] Last Admin: 04/02/17 10:23 Dose: 500 mg Rosuvastatin Calcium (Crestor) 20 mg PO HS [facility] Last Admin: 04/01/17 21:34 Dose: 20 mg Saccharomyces Boulardii (Florastor) 250 mg PO BID [facility] Last Admin: 04/02/17 10:22 Dose: 250 mg Tiotropium [place] (Spiriva) 18 mcg INH RQ24 [facility] Last Admin: 04/02/17 08:06 Dose: 18 mcg - Labs Labs: 04/02/17 08:34 04/02/17 08:34 PT 13.3 SECONDS (9.7-12.2) H 03/20/17 22:39 INR 1.2 03/20/17 22:39 APTT 68 SECONDS (21-34) H 03/23/17 06:51 - Constitutional Appears: No Acute Distress - Head Exam Head Exam: ATRAUMATIC, NORMOCEPHALIC Additional comments: obesity morbid - Eye Exam Eye Exam: Normal appearance - ENT Exam ENT Exam: Normal Exam - Neck Exam Neck Exam: Normal Inspection - Respiratory Exam Respiratory Exam: Decreased Breath Sounds - Cardiovascular Exam Cardiovascular Exam: REGULAR RHYTHM, RRR - GI/Abdominal Exam GI & Abdominal Exam: Soft, Normal Bowel Sounds - Extremities Exam Extremities Exam: Pedal Edema Additional comments: venodyne boots present - Skin Additional comments: sacral decubiti unstagable,necrotic Assessment and Plan (1) Non-STEMI (non-ST elevated myocardial infarction) Status: Acute (2) Sacral wound Assessment & Plan: patient need chemical debridement and position change and good nutrition with multivitamins Status: Acute (3) COPD (chronic obstructive pulmonary disease) Status: Chronic (4) Morbidly obese Status: Chronic (5) OPHELIA (obstructive sleep apnea) Status: Chronic (6) Leukocytosis Assessment & Plan: wbc still high due to lungs and decubiti as urine culture and catheter tip is negative culture Status: Acute - Assessment and Plan (Free Text) Assessment: Hold Vancomycin as trough is high will repeat it agaiin and follow serum creatinine
[2017-04-03] MEDS: Meropenem 1 GM in Sodium Chloride 0.9% 100 ML IVPB SCH ×3 (05:45→21:43)
--- NOTE | 2017-04-03 07:35 | CP.PCM.PN ---
<Hema Burch R - Last Filed: 04/03/17 13:38> Subjective - Date & Time of Evaluation Date of Evaluation: 04/03/17 Time of Evaluation: 07:00 - Subjective Subjective: Patient was seen and examined at bedside. She stated she did not have a bowel movement in a few days. She also complained of tingling in her right foot that is a chronic issue for her. She also c/o of chronic back pain. She denied chest pain, shortness of breath, abdominal pain, dysuria, fever, chills, nausea, vomiting, diarrhea, headache, bleeding, cough. Objective - Vital Signs/Intake and Output Vital Signs (last 24 hours): Temp Pulse Resp BP Pulse Ox 97.7 F 81 20 102/63 96 04/03/17 04:05 04/03/17 04:05 04/03/17 04:05 04/03/17 04:05 04/03/17 04:05 Intake and Output: 04/03/17 04/03/17 06:59 18:59 Intake Total 400 Output Total 425 Balance -25 - Medications Medications: Current Medications Albuterol Sulfate (Albuterol 0.083% Inhal Cee (2.5 Mg/3 Ml) Ud) 2.5 mg INH RQ6 PRN PRN Reason: Shortness of Breath Last Admin: 03/29/17 08:10 Dose: 2.5 mg Aspirin (Ecotrin) 81 mg PO DAILY [facility] Last Admin: 04/02/17 10:22 Dose: 81 mg Clonazepam (Klonopin) 1 mg PO Q12 [facility] Last Admin: 04/02/17 21:03 Dose: 1 mg Collagenase (Santyl) 0 gm TOP DAILY [facility] Last Admin: 04/02/17 10:29 Dose: Not Given Collagenase (Santyl) 0 gm TOP DAILY [facility] Last Admin: 04/02/17 10:25 Dose: 1 applic Docusate Sodium (Colace) 100 mg PO BID [facility] Last Admin: 04/02/17 19:44 Dose: 100 mg Famotidine (Pepcid) 20 mg PO BID [facility] Last Admin: 04/02/17 19:44 Dose: 20 mg Gabapentin (Neurontin) 300 mg PO TID [facility] Last Admin: 04/02/17 19:44 Dose: 300 mg Meropenem 1 gm/ Sodium (Chloride) 100 mls @ 100 mls/hr IVPB Q8 [facility] Last Admin: 04/03/17 05:45 Dose: 100 mls/hr Isosorbide Mononitrate (Imdur) 30 mg PO DAILY [facility] Last Admin: 04/02/17 10:30 Dose: Not Given Losartan Potassium (Cozaar) 50 mg PO DAILY [facility] Last Admin: 04/02/17 10:30 Dose: Not Given Morphine Sulfate (Morphine) 1 mg IVP Q6H PRN PRN Reason: Pain, severe (8-10) Last Admin: 04/02/17 21:06 Dose: 1 mg Nitroglycerin (Nitrostat Sl Tab) 0.4 mg SL Q5M PRN Nystatin (Nystop Topical Powder) 1 applic TOP BID [facility] Last Admin: 04/02/17 19:43 Dose: 1 applic Oxycodone/Acetaminophen (Percocet 5/325 Mg Tab) 1 tab PO Q6H PRN PRN Reason: Pain, moderate (4-7) Stop: 04/05/17 09:59 Last Admin: 04/02/17 13:15 Dose: 1 tab Promethazine HCl/Codeine (Phenergan/Codeine Oral Syrup) 5 ml PO Q4 PRN PRN Reason: Cough Last Admin: 03/29/17 16:25 Dose: 5 ml Ranolazine (Ranexa) 500 mg PO BID [facility] Last Admin: 04/02/17 19:44 Dose: 500 mg Rosuvastatin Calcium (Crestor) 20 mg PO HS [facility] Last Admin: 04/02/17 21:03 Dose: 20 mg Saccharomyces Boulardii (Florastor) 250 mg PO BID [facility] Last Admin: 04/02/17 19:44 Dose: 250 mg Tiotropium [place] (Spiriva) 18 mcg INH RQ24 [facility] Last Admin: 04/02/17 08:06 Dose: 18 mcg - Labs Labs: 04/02/17 08:34 04/02/17 08:34 PT 13.3 SECONDS (9.7-12.2) H 03/20/17 22:39 INR 1.2 03/20/17 22:39 APTT 68 SECONDS (21-34) H 03/23/17 06:51 - Constitutional Appears: Well, Non-toxic, No Acute Distress - Head Exam Head Exam: ATRAUMATIC, NORMAL INSPECTION, NORMOCEPHALIC - Eye Exam Eye Exam: EOMI, Normal appearance, PERRL - ENT Exam ENT Exam: Mucous Membranes Moist, Normal Exam - Neck Exam Neck Exam: Normal Inspection - Respiratory Exam Respiratory Exam: Decreased Breath Sounds Additional comments: decreased breath sounds 2/2 body habitus - Cardiovascular Exam Cardiovascular Exam: REGULAR RHYTHM, +S1, +S2. absent: Murmur - GI/Abdominal Exam GI & Abdominal Exam: Soft, Normal Bowel Sounds - Rectal Exam Rectal Exam: Deferred - Extremities Exam Extremities Exam: absent: Calf Tenderness - Back Exam Back Exam: NORMAL INSPECTION - Neurological Exam Neurological Exam: Alert, Awake, Oriented x3 - Psychiatric Exam Psychiatric exam: Normal Affect, Normal Mood - Skin Skin Exam: Dry, Intact, Normal Color, Warm Additional comments: 2 cm stage 2 right sacral ulcer 2 cm unstageable ulcer within gluteal folds, ulcer with erythemetous border today - improved from a few days ago Assessment and Plan - Assessment and Plan (Free Text) Assessment: (1) Non-STEMI (non-ST elevated myocardial infarction) History of prior myocardial infarction Assessment & Plan: Cardiology (Dr. David) on board-->help appreciated-->signed off 03/24/17 Per cardiology note, bedside ECHO (03/22/17)--> Preserved LV function, no sig valve regurge, mild dilated RV with preserved RV function. Inferobasal and basal septum appear aneurysmal. Troponin 6.05, 7.41, 9.17 Clinically no angina, arrythmia or worsening systolic dysfunction sx's. 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 No plans for c.cath. [facility] Rx for CAD. Per cardiology, * ASA 81 mg PO daily * Plavix 75mg PO daily * Crestor 20mg PO qHS * Metoprolol 50mg PO BID (Hold SBP<100 and HR<60) * Losartan 50mg PO daily (Hold SBP<100) * Lasix changed to 40mg IVP Daily * Ranexa 550mg PO bid * On heparin dvt ppx * Continue Imdur 30mg PO daily (hold SBP<100 * [facility] Rx for OPHELIA/Obesity * Encourage mobility Pulmonary (Dr. Quiñones) on board-->help appreciated Status: Acute (2) Morbidly obese Status: Chronic * Patient reports she has had unintentional weight loss over the past year * [employer] referral * Physical therapy eval and treat * Occupational eval and treat * OOB (3) SIRS (systemic inflammatory response syndrome) Assessment & Plan: 04/03: wbc 21, afebrile. elevated wbc could be 2/2 pneumonia or unstageable ulcer. all cultures are still negative to date. 04/02: wbc 20.2. Will hold vanco today and wait for repeat vanco trough tomorrow AM. discontinued lasix due to low BP 04/02: discontinued toradol, ordered percocet 5/325mg 1 tab q6 for pain 04/02: vanco trough elevated at 23.3. urine culture negative; blood culture negative to date; PICC tip culture negative 04/01: wbc 21.6; afebrile 03/31: wbc 24.7; afebrile 03/31: blood culture ordered, urine culture ordered, picc tip culture ordered 03/31: picc line pulled, midline catheter placed, pradhan replaced 03/31: discontinued cefepime 1gm iv q12. started vancomycin 1gm q12 iv started. vanco trough to be checked 04/01 21:30 03/31: started meropenem 1gm iv q8 03/31: CXR ordered today: "Mild pulmonary vascular congestive changes may have improved slightly however there are vague somewhat more confluent opacities seen in the lung bases left greater than right, that may represent some residual alveolar-type infiltrates related to pulmonary edema/ CHF. Cardiomegaly. 03/30: wbc 18.6 trending up from 17.5; afebrile * 03/29: started cefepime 1gm IV q12 * 03/29: discontinued Zosyn 4.5 IV Q 6hours (Active since 03/21/17) * 03/29: discontinued Vancomycin 1 gram IVQ 12hours (active since on 03/28/17) * 03/28: CXR: "Moderate venous congestion. Patchy left basilar airspace opacity. Enlarged ectactic aorta. Cardiomegaly" * 03/28: Urine culture no growth 03/28: blood culture no growth to date 03/26: MRSA culture -> MRSA not detected * 03/22: CXR: "New right PICC catheter terminates at level of cavoatrial junction. Mild congestive change" * 03/20: CXR: no acute findings * 03/20: CT Chest: "no ct evidence of acute pulmonary embolism, aortic aneurysm, or aortic dissection. [place] airspace disease in the posterio basal segment of the left lower lobe may represent subsegmental atelectasis however pneumonia cannot be excluded. Patient has moderate left hilar lymphadenopathy of uncertain etiology" * 03/20: Blood culture no growth after 4 days X2 * UA (2nd): hematuria-->treat as urinary tract infection-->repeat today * Urine culture (03/22/17): no growth * strep pneumoniae, legionella: negative, and mycoplasma IGM: negative * sacral wound: turn q 2hours, and wound care * Florastor 250mg PO bid Status: Acute (4) Pneumonia Assessment & Plan: 03/30: wbc 18.6 trending up from 17.5; afebrile 03/29: started cefepime 1gm IV q12 * 03/29: discontinued Zosyn 4.5 IV Q 6hours (Active since 03/21/17) * 03/29: discontinued Vancomycin 1 gram IVQ 12hours started on 03/28/17 * CXR 03/28/17-Moderate venous congestion. Patchy left basilar airspace opacity. Enlarged ectactic aorta. Cardiomegaly. * Florastor 250mg PO bid (5) HTN (hypertension) Assessment & Plan: * discontinued Metoprolol 50mg PO BID (Hold SBP<100 and HR<60) * Losartan 50mg PO daily (Hold SBP<100) * Lasix 40mg PO daily (Hold SBP<100) * Ranexa 500mg PO bid * Continue Imdur 30mg PO daily Status: Chronic (6) OPHELIA (obstructive sleep apnea) Status: Chronic * BIPAP * Educated about consistency of wearing the mask at bedside (7) COPD (chronic obstructive pulmonary disease) Status: Chronic * Albuterol 3ml inhaled RQ4 * Continue Spiriva 18mcg inhaled q daily * BIPAP prn- Instructed patient to request Bipap every night * CXR- 03/25/17- Cardiomegaly and pulmonary vnenous congestion (Please see full report) (8) History of Spinal stenosis Status: Chronic * Klonopin 1mg PO Q12h * Gabapentin 300mg PO TID (9) Unstagable Sacral Ulcer in Gluteal Folds 04/03: Dr Rogers and I inspected this ulcer today which seems less necrotic today compared to a few days ago. There is a border of erythema and the black eschar is less prominent. It seems the Santyl is working well. Will defer to surgery regarding debridement. 04/01: Santyl once a day topical applied to ulcer. Discussed with surgery, will re-evaluate on tuesday 04/03 and consider debridement at that point. 03/31: Dr Smith of surgery consulted. Dr Rogers spoke with Dr Smith who said sacral ulcer does not need debridement right now 03/31: Wound care nurse Tre Alcazar describes this as an unstageable ulcer * Wound care * Turn Q 2hours (10) Microscopic Hematuria * Multiple UAs with microscopic hematuria * Bladder/ Renal Ultrasound- 03/28/17- Multiple bilateral scattered renal caluli without evidence of gross hydronephrosis. 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 wound care. turn q2 hours. (15) Acute Kidney Injury 04/03: BUN 28 Cr 1.3. SHERWIN likely 2/2 lasix vs toradol use vs merepenem abx. Will hold lasix and the toradol has been discontinued. Will administer 500cc's of NS at 75cc/hr. (16) Prophylactic measure Assessment & Plan: * Heparin 5000 units Q 8 hours * GI ppx: Pepcid 20mg PO BID * Wound care * TurnQ 2hours * Aspirin 81mg PO daily * PT/OT eval * OOB * vasoline to lips bid DISPOSITION: Dr Rogers spoke with [employer]er Liss Padilla and insurance request has been made for [employer] in [place] and we are awaiting approval. <Tolu Rogers - Last Filed: 04/03/17 21:34> Objective - Vital Signs/Intake and Output Vital Signs (last 24 hours): Temp Pulse Resp BP Pulse Ox 98.0 F 72 20 116/69 97 04/03/17 15:01 04/03/17 15:01 04/03/17 15:01 04/03/17 15:01 04/03/17 15:01 Intake and Output: 04/03/17 04/04/17 18:59 06:59 Intake Total 400 Output Total 250 Balance 150 - Medications Medications: Current Medications Albuterol Sulfate (Albuterol 0.083% Inhal Cee (2.5 Mg/3 Ml) Ud) 2.5 mg INH RQ6 PRN PRN Reason: Shortness of Breath Last Admin: 03/29/17 08:10 Dose: 2.5 mg Aspirin (Ecotrin) 81 mg PO DAILY [facility] Last Admin: 04/03/17 09:41 Dose: 81 mg Clonazepam (Klonopin) 1 mg PO Q12 [facility] Last Admin: 04/03/17 11:36 Dose: Not Given Collagenase (Santyl) 0 gm TOP DAILY [facility] Last Admin: 04/03/17 09:40 Dose: 1 applic Collagenase (Santyl) 0 gm TOP DAILY [facility] Last Admin: 04/03/17 12:38 Dose: Not Given Docusate Sodium (Colace) 100 mg PO TID [facility] Last Admin: 04/03/17 17:42 Dose: 100 mg Emollient Ointment (Vaseline Oint) 5 gm TOP BID PRN PRN Reason: Dry skin Famotidine (Pepcid) 20 mg PO BID [facility] Last Admin: 04/03/17 17:42 Dose: 20 mg Gabapentin (Neurontin) 300 mg PO TID [facility] Last Admin: 04/03/17 17:43 Dose: 300 mg Meropenem 1 gm/ Sodium (Chloride) 100 mls @ 100 mls/hr IVPB Q8 [facility] Last Admin: 04/03/17 13:00 Dose: 100 mls/hr Sodium Chloride (Sodium Chloride 0.9%) 500 mls @ 75 mls/hr IV .Q6H40M [facility] Last Admin: 04/03/17 13:02 Dose: 75 mls/hr Isosorbide Mononitrate (Imdur) 30 mg PO DAILY [facility] Last Admin: 04/03/17 09:40 Dose: 30 mg Losartan Potassium (Cozaar) 50 mg PO DAILY [facility] Last Admin: 04/03/17 09:40 Dose: 50 mg Morphine Sulfate (Morphine) 1 mg IVP Q6H PRN PRN Reason: Pain, severe (8-10) Last Admin: 04/03/17 18:52 Dose: 1 mg Nitroglycerin (Nitrostat Sl Tab) 0.4 mg SL Q5M PRN Nystatin (Nystop Topical Powder) 1 applic TOP BID [facility] Last Admin: 04/03/17 17:43 Dose: 1 applic Oxycodone/Acetaminophen (Percocet 5/325 Mg Tab) 1 tab PO Q6H PRN PRN Reason: Pain, moderate (4-7) Stop: 04/05/17 09:59 Last Admin: 04/02/17 13:15 Dose: 1 tab Promethazine HCl/Codeine (Phenergan/Codeine Oral Syrup) 5 ml PO Q4 PRN PRN Reason: Cough Last Admin: 03/29/17 16:25 Dose: 5 ml Ranolazine (Ranexa) 500 mg PO BID [facility] Last Admin: 04/03/17 17:42 Dose: 500 mg Rosuvastatin Calcium (Crestor) 20 mg PO HS [facility] Last Admin: 04/02/17 21:03 Dose: 20 mg Saccharomyces Boulardii (Florastor) 250 mg PO BID [facility] Last Admin: 04/03/17 17:43 Dose: 250 mg Tiotropium [place] (Spiriva) 18 mcg INH RQ24 [facility] Last Admin: 04/03/17 08:30 Dose: 18 mcg - Labs Labs: 04/03/17 07:28 04/03/17 07:28 PT 13.3 SECONDS (9.7-12.2) H 03/20/17 22:39 INR 1.2 03/20/17 22:39 APTT 68 SECONDS (21-34) H 03/23/17 06:51 Attending/Attestation - Attestation I have personally seen and examined this patient.: Yes I have fully participated in the care of the patient.: Yes I have reviewed all pertinent clinical information, including history, physical exam and plan: Yes Notes (Text): 04/03/17 21:33 Patient was seen and examined with the resident Exam, assessment and plan were thoroughly gone over with the Resident. Tolu Rogers D.O.
[2017-04-03 07:52] LABS: BASO # 0.1 K/uL (0.0-0.2); BASO % 0.5 % (0.0-2.0); EOS # 0.9 K/uL (0.0-0.7); EOS % 4.5 % (0.0-4.0); HEMOGLOBIN 10.7 g/dL (11.0-16.0); LYMPH # 2.1 K/uL (1.0-4.3); LYMPH % 10.2 % (20.0-40.0); MEAN CELL VOLUME 82.8 fL (81.0-99.0); MEAN CORPUSCULAR HEMOGLOBIN 25.3 pg (27.0-31.0); MEAN CORPUSCULAR HGB CONC 30.5 g/dL (33.0-37.0); MEAN PLATELET VOLUME 8.6 fL (7.2-11.7); MONO # 0.9 K/uL (0.0-0.8); MONO % 4.5 % (0.0-10.0); NEUT # 16.9 K/uL (1.8-7.0); NEUT % 80.3 % (50.0-75.0); RBC 4.24 Mil/uL (3.80-5.20)
[2017-04-03] MEDS: Tiotropium 18 mcg Cap For Inhalation INH SCH (08:30)
[2017-04-03 08:35] LABS: ALBUMIN 2.9 g/dL (3.5-5.0)
[2017-04-03 08:38] LABS: ALB/GLOB RATIO 0.8 (1.0-2.1)
[2017-04-03 08:39] LABS: CALCIUM 9.1 mg/dl (8.6-10.4); MAGNESIUM 2.4 mg/dL (1.6-2.3)
[2017-04-03] MEDS: Collagenase 250 Units/gm Ointment(30 gm) TOP SCH ×2 (09:40→12:38)
[2017-04-03] MEDS: Ranolazine 500 mg Extended Release Tablets PO SCH ×2 (09:41→17:42)
[2017-04-03] MEDS: Saccharomyces Boulardi 250 mg Cap PO SCH ×2 (09:41→17:43)
[2017-04-03] MEDS ORDERED: Petrolatum Oint Foilpak (5 gm) TOP PRN (12:08)
[2017-04-03] MEDS: Sodium Chloride 0.9% 500 ML IV SCH ×2 (13:02→21:44)
[2017-04-04] MEDS: Sodium Chloride 0.9% 500 ML IV SCH (02:43)
[2017-04-04] MEDS: Meropenem 1 GM in Sodium Chloride 0.9% 100 ML IVPB SCH ×3 (05:11→22:19)
--- NOTE | 2017-04-04 07:26 | CP.PCM.PN ---
<MarcinHema kaur R - Last Filed: 04/04/17 14:41> Subjective - Date & Time of Evaluation Date of Evaluation: 04/04/17 Time of Evaluation: 07:00 - Subjective Subjective: Patient was seen and examined at bedside. She stated that she has not had a BM in 4 days. She stated that she hasn't had much of an appetite. She also complains of fatigue but stated that she's been sleeping a lot lately because she's bored. She denied chest pain, shortness of breath, abdominal pain, dysuria , fever, chills, nausea, vomiting, diarrhea, headache, bleeding, cough. Objective - Vital Signs/Intake and Output Vital Signs (last 24 hours): Temp Pulse Resp BP Pulse Ox 98.8 F 93 H 20 120/75 97 04/03/17 23:00 04/04/17 04:00 04/03/17 23:00 04/03/17 23:00 04/03/17 23:00 Intake and Output: 04/04/17 04/04/17 06:59 18:59 Intake Total 1220 Output Total 625 Balance 595 - Medications Medications: Current Medications Albuterol Sulfate (Albuterol 0.083% Inhal Cee (2.5 Mg/3 Ml) Ud) 2.5 mg INH RQ6 PRN PRN Reason: Shortness of Breath Last Admin: 03/29/17 08:10 Dose: 2.5 mg Aspirin (Ecotrin) 81 mg PO DAILY [facility] Last Admin: 04/03/17 09:41 Dose: 81 mg Clonazepam (Klonopin) 1 mg PO Q12 [facility] Last Admin: 04/03/17 21:42 Dose: 1 mg Collagenase (Santyl) 0 gm TOP DAILY [facility] Last Admin: 04/03/17 09:40 Dose: 1 applic Collagenase (Santyl) 0 gm TOP DAILY [facility] Last Admin: 04/03/17 12:38 Dose: Not Given Docusate Sodium (Colace) 100 mg PO TID [facility] Last Admin: 04/03/17 17:42 Dose: 100 mg Emollient Ointment (Vaseline Oint) 5 gm TOP BID PRN PRN Reason: Dry skin Famotidine (Pepcid) 20 mg PO BID [facility] Last Admin: 04/03/17 17:42 Dose: 20 mg Gabapentin (Neurontin) 300 mg PO TID [facility] Last Admin: 04/03/17 17:43 Dose: 300 mg Meropenem 1 gm/ Sodium (Chloride) 100 mls @ 100 mls/hr IVPB Q8 [facility] Last Admin: 04/04/17 05:11 Dose: 100 mls/hr Sodium Chloride (Sodium Chloride 0.9%) 500 mls @ 75 mls/hr IV .Q6H40M [facility] Last Admin: 04/04/17 02:43 Dose: Not Given Isosorbide Mononitrate (Imdur) 30 mg PO DAILY [facility] Last Admin: 04/03/17 09:40 Dose: 30 mg Losartan Potassium (Cozaar) 50 mg PO DAILY [facility] Last Admin: 04/03/17 09:40 Dose: 50 mg Morphine Sulfate (Morphine) 1 mg IVP Q6H PRN PRN Reason: Pain, severe (8-10) Last Admin: 04/03/17 18:52 Dose: 1 mg Nitroglycerin (Nitrostat Sl Tab) 0.4 mg SL Q5M PRN Nystatin (Nystop Topical Powder) 1 applic TOP BID [facility] Last Admin: 04/03/17 17:43 Dose: 1 applic Oxycodone/Acetaminophen (Percocet 5/325 Mg Tab) 1 tab PO Q6H PRN PRN Reason: Pain, moderate (4-7) Stop: 04/05/17 09:59 Last Admin: 04/02/17 13:15 Dose: 1 tab Promethazine HCl/Codeine (Phenergan/Codeine Oral Syrup) 5 ml PO Q4 PRN PRN Reason: Cough Last Admin: 03/29/17 16:25 Dose: 5 ml Ranolazine (Ranexa) 500 mg PO BID [facility] Last Admin: 04/03/17 17:42 Dose: 500 mg Rosuvastatin Calcium (Crestor) 20 mg PO HS [facility] Last Admin: 04/03/17 21:42 Dose: 20 mg Saccharomyces Boulardii (Florastor) 250 mg PO BID [facility] Last Admin: 04/03/17 17:43 Dose: 250 mg Tiotropium [place] (Spiriva) 18 mcg INH RQ24 [facility] Last Admin: 04/03/17 08:30 Dose: 18 mcg - Labs Labs: 04/03/17 07:28 04/03/17 07:28 PT 13.3 SECONDS (9.7-12.2) H 03/20/17 22:39 INR 1.2 03/20/17 22:39 APTT 68 SECONDS (21-34) H 03/23/17 06:51 - Constitutional Appears: Well, Non-toxic, No Acute Distress - Head Exam Head Exam: ATRAUMATIC, NORMAL INSPECTION, NORMOCEPHALIC - Eye Exam Eye Exam: EOMI, Normal appearance, PERRL - ENT Exam ENT Exam: Mucous Membranes Moist - Neck Exam Neck Exam: Full ROM, Normal Inspection. absent: Lymphadenopathy - Respiratory Exam Respiratory Exam: Clear to Ausculation Bilateral, NORMAL BREATHING PATTERN. absent: Wheezes - Cardiovascular Exam Cardiovascular Exam: REGULAR RHYTHM, RRR, +S1, +S2 - GI/Abdominal Exam GI & Abdominal Exam: Soft, Normal Bowel Sounds. absent: Tenderness - Rectal Exam Rectal Exam: Deferred - Extremities Exam Extremities Exam: Normal Inspection - Back Exam Additional comments: 2 cm stage 2 right sacral ulcer 2 cm unstageable ulcer within gluteal folds, ulcer with erythemetous border today - Neurological Exam Neurological Exam: Alert, Awake, Oriented x3 - Psychiatric Exam Psychiatric exam: Normal Affect, Normal Mood - Skin Skin Exam: Dry, Intact, Normal Color, Warm Assessment and Plan - Assessment and Plan (Free Text) Assessment: (1) Non-STEMI (non-ST elevated myocardial infarction) History of prior myocardial infarction Assessment & Plan: Cardiology (Dr. David) on board-->help appreciated-->signed off 03/24/17 Per cardiology note, bedside ECHO (03/22/17)--> Preserved LV function, no sig valve regurge, mild dilated RV with preserved RV function. Inferobasal and basal septum appear aneurysmal. Troponin 6.05, 7.41, 9.17 Clinically no angina, arrythmia or worsening systolic dysfunction sx's. 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 No plans for c.cath. [facility] medical Rx for CAD. Per cardiology, * ASA 81 mg PO daily * Plavix 75mg PO daily * Crestor 20mg PO qHS * Metoprolol 50mg PO BID (Hold SBP<100 and HR<60) * Losartan 50mg PO daily (Hold SBP<100) * Lasix changed to 40mg IVP Daily * Ranexa 550mg PO bid * On heparin dvt ppx * Continue Imdur 30mg PO daily (hold SBP<100 * [facility] pulmonary Rx for OPHELIA/Obesity * Encourage mobility Pulmonary (Dr. Quiñones) on board-->help appreciated Status: Acute (2) Morbidly obese Status: Chronic * Patient reports she has had unintentional weight loss over the past year * [employer] Supervisor referral * Physical therapy eval and treat * Occupational eval and treat * OOB (3) SIRS (systemic inflammatory response syndrome) Assessment & Plan: 04/04: wbc trending down. afebrile. Dr Cedeño held vancomycin due to high trough level. 04/03: wbc 21, afebrile. elevated wbc could be 2/2 pneumonia or unstageable ulcer. all cultures are still negative to date. 04/02: wbc 20.2. Will hold vanco today and wait for repeat vanco trough tomorrow AM. discontinued lasix due to low BP 04/02: discontinued toradol, ordered percocet 5/325mg 1 tab q6 for pain 04/02: vanco trough elevated at 23.3. urine culture negative; blood culture negative to date; PICC tip culture negative 04/01: wbc 21.6; afebrile 03/31: wbc 24.7; afebrile 03/31: blood culture ordered, urine culture ordered, picc tip culture ordered 03/31: picc line pulled, midline catheter placed, pradhan replaced 03/31: discontinued cefepime 1gm iv q12. started vancomycin 1gm q12 iv started. vanco trough to be checked 04/01 21:30 03/31: started meropenem 1gm iv q8 03/31: CXR ordered today: "Mild pulmonary vascular congestive changes may have improved slightly however there are vague somewhat more confluent opacities seen in the lung bases left greater than right, that may represent some residual alveolar-type infiltrates related to pulmonary edema/ CHF. Cardiomegaly. 03/30: wbc 18.6 trending up from 17.5; afebrile * 03/29: started cefepime 1gm IV q12 * 03/29: discontinued Zosyn 4.5 IV Q 6hours (Active since 03/21/17) * 03/29: discontinued Vancomycin 1 gram IVQ 12hours (active since on 03/28/17) * 03/28: CXR: "Moderate venous congestion. Patchy left basilar airspace opacity. Enlarged ectactic aorta. Cardiomegaly" * 03/28: Urine culture no growth 03/28: blood culture no growth to date 03/26: MRSA culture -> MRSA not detected * 03/22: CXR: "New right PICC catheter terminates at level of cavoatrial junction. Mild congestive change" * 03/20: CXR: no acute findings * 03/20: CT Chest: "no ct evidence of acute pulmonary embolism, aortic aneurysm, or aortic dissection. Lula airspace disease in the posterio basal segment of the left lower lobe may represent subsegmental atelectasis however pneumonia cannot be excluded. Patient has moderate left hilar lymphadenopathy of uncertain etiology" * 03/20: Blood culture no growth after 4 days X2 * UA (2nd): hematuria-->treat as urinary tract infection-->repeat today * Urine culture (03/22/17): no growth * strep pneumoniae, legionella: negative, and mycoplasma IGM: negative * sacral wound: turn q 2hours, and wound care * Florastor 250mg PO bid Status: Acute (4) Pneumonia Assessment & Plan: 03/30: wbc 18.6 trending up from 17.5; afebrile 03/29: started cefepime 1gm IV q12 * 03/29: discontinued Zosyn 4.5 IV Q 6hours (Active since 03/21/17) * 03/29: discontinued Vancomycin 1 gram IVQ 12hours started on 03/28/17 * CXR 03/28/17-Moderate venous congestion. Patchy left basilar airspace opacity. Enlarged ectactic aorta. Cardiomegaly. * Florastor 250mg PO bid (5) HTN (hypertension) Assessment & Plan: * discontinued Metoprolol 50mg PO BID (Hold SBP<100 and HR<60) * Losartan 50mg PO daily (Hold SBP<100) * Lasix 40mg PO daily (Hold SBP<100) * Ranexa 500mg PO bid * Continue Imdur 30mg PO daily Status: Chronic (6) OPHELIA (obstructive sleep apnea) Status: Chronic * BIPAP * Educated about consistency of wearing the mask at bedside (7) COPD (chronic obstructive pulmonary disease) Status: Chronic * Albuterol 3ml inhaled RQ4 * Continue Spiriva 18mcg inhaled q daily * BIPAP prn- Instructed patient to request Bipap every night * CXR- 03/25/17- Cardiomegaly and pulmonary vnenous congestion (Please see full report) (8) History of Spinal stenosis Status: Chronic * Klonopin 1mg PO Q12h * Gabapentin 300mg PO TID (9) Unstagable Sacral Ulcer in Gluteal Folds 04/04: ulcer looks less nectrotic today compared to yesterday 04/03: Dr Rogers and I inspected this ulcer today which seems less necrotic today compared to a few days ago. There is a border of erythema and the black eschar is less prominent. It seems the Santyl is working well. Will defer to surgery regarding debridement. 04/01: Santyl once a day topical applied to ulcer. Discussed with surgery, will re-evaluate on tuesday 04/03 and consider debridement at that point. 03/31: Dr Smith of surgery consulted. Dr Rogers spoke with Dr Smith who said sacral ulcer does not need debridement right now 03/31: Wound care nurse Tre Alcazar describes this as an unstageable ulcer * Wound care * Turn Q 2hours (10) Microscopic Hematuria * Multiple UAs with microscopic hematuria * Bladder/ Renal Ultrasound- 03/28/17- Multiple bilateral scattered renal caluli without evidence of gross hydronephrosis. 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 wound care. turn q2 hours. (15) Acute Kidney Injury 04/03: BUN 28 Cr 1.3. SHERWIN likely 2/2 lasix vs toradol use vs merepenem abx. Will hold lasix and the toradol has been discontinued. Will administer 500cc's of NS at 75cc/hr. (16) Depression 04/04: Dr Godwin, psychiatry consulted to evaluate patient for depression. morbid obesity has a high correlation with major depressive disorder. (17) Prophylactic measure Assessment & Plan: * Heparin 5000 units Q 8 hours * GI ppx: Pepcid 20mg PO BID * Wound care * TurnQ 2hours * Aspirin 81mg PO daily * PT/OT eval * OOB * vasoline to lips bid glycerna protein shake 3x a day DISPOSITION: Dr Rogers spoke with Director Payment Liss Padilla and insurance request has been made for [employer] in [place] and we are awaiting approval. <Tolu Rogers - Last Filed: 04/04/17 21:23> Objective - Vital Signs/Intake and Output Vital Signs (last 24 hours): Temp Pulse Resp BP Pulse Ox 98.3 F 83 20 96/59 L 98 04/04/17 16:19 04/04/17 16:19 04/04/17 16:19 04/04/17 16:19 04/04/17 16:19 Intake and Output: 04/04/17 04/05/17 18:59 06:59 Intake Total 475 Output Total 450 Balance 25 - Medications Medications: Current Medications Albuterol Sulfate (Albuterol 0.083% Inhal Cee (2.5 Mg/3 Ml) Ud) 2.5 mg INH RQ6 PRN PRN Reason: Shortness of Breath Last Admin: 03/29/17 08:10 Dose: 2.5 mg Aspirin (Ecotrin) 81 mg PO DAILY [facility] Last Admin: 04/04/17 09:45 Dose: 81 mg Clonazepam (Klonopin) 1 mg PO Q12 [facility] Last Admin: 04/04/17 09:41 Dose: Not Given Collagenase (Santyl) 0 gm TOP DAILY [facility] Last Admin: 04/04/17 09:45 Dose: 1 applic Collagenase (Santyl) 0 gm TOP DAILY [facility] Last Admin: 04/04/17 09:45 Dose: Not Given Docusate Sodium (Colace) 100 mg PO TID [facility] Last Admin: 04/04/17 17:41 Dose: 100 mg Emollient Ointment (Vaseline Oint) 5 gm TOP BID PRN PRN Reason: Dry skin Last Admin: 04/04/17 14:10 Dose: 5 gm Famotidine (Pepcid) 20 mg PO BID [facility] Last Admin: 04/04/17 17:41 Dose: 20 mg Gabapentin (Neurontin) 300 mg PO TID [facility] Last Admin: 04/04/17 17:41 Dose: 300 mg Meropenem 1 gm/ Sodium (Chloride) 100 mls @ 100 mls/hr IVPB Q8 [facility] Last Admin: 04/04/17 14:10 Dose: 100 mls/hr Vancomycin/Sodium Chloride (Vancocin) 1 gm in 200 mls @ 167 mls/hr IVPB Q24H [facility] Stop: 04/09/17 17:16 Last Admin: 04/04/17 18:07 Dose: 167 mls/hr Isosorbide Mononitrate (Imdur) 30 mg PO DAILY [facility] Last Admin: 04/04/17 09:45 Dose: 30 mg Losartan Potassium (Cozaar) 50 mg PO DAILY [facility] Last Admin: 04/04/17 09:45 Dose: 50 mg Morphine Sulfate (Morphine) 1 mg IVP Q6H PRN PRN Reason: Pain, severe (8-10) Last Admin: 04/04/17 14:11 Dose: 1 mg Nitroglycerin (Nitrostat Sl Tab) 0.4 mg SL Q5M PRN Nystatin (Nystop Topical Powder) 1 applic TOP BID [facility] Last Admin: 04/04/17 17:42 Dose: 1 applic Oxycodone/Acetaminophen (Percocet 5/325 Mg Tab) 1 tab PO Q6H PRN PRN Reason: Pain, moderate (4-7) Stop: 04/05/17 09:59 Last Admin: 04/04/17 17:39 Dose: 1 tab Promethazine HCl/Codeine (Phenergan/Codeine Oral Syrup) 5 ml PO Q4 PRN PRN Reason: Cough Last Admin: 03/29/17 16:25 Dose: 5 ml Ranolazine (Ranexa) 500 mg PO BID [facility] Last Admin: 04/04/17 17:41 Dose: 500 mg Rosuvastatin Calcium (Crestor) 20 mg PO HS [facility] Last Admin: 04/03/17 21:42 Dose: 20 mg Saccharomyces Boulardii (Florastor) 250 mg PO BID [facility] Last Admin: 04/04/17 17:41 Dose: 250 mg Tiotropium [place] (Spiriva) 18 mcg INH RQ24 [facility] Last Admin: 04/04/17 07:53 Dose: 18 mcg - Labs Labs: 04/04/17 07:59 04/04/17 07:59 PT 13.3 SECONDS (9.7-12.2) H 03/20/17 22:39 INR 1.2 03/20/17 22:39 APTT 68 SECONDS (21-34) H 03/23/17 06:51 Attending/Attestation - Attestation I have personally seen and examined this patient.: Yes I have fully participated in the care of the patient.: Yes I have reviewed all pertinent clinical information, including history, physical exam and plan: Yes Notes (Text): 04/04/17 21:08 Patient was seen and examined with the Resident at 12:30 PM 04/04/17. Please note that the only antibiotic patient is on currently is Meropenem 1 gm IV Q8H F/U finalization of repeat blood culture #3 which is negative at 4 days. Unstageable Ulcer Sacrum is improving with the Santyl. Please contact Wound Care Nurse Tre Weiss to see if he agrees. If not, then recontact Surgery Team for debridement as this may be the source of the continued elevated WBC (which may also be secondary to the Left Leg DVT and the Pneumonia). Acute Renal Insufficiency: this has improved to 20/1.0 after 1 liter of IV fluid , stopping the Lasix (which was being used for the pulmonary congestion), and stopping the Toradol (which was being used for moderate pain). Continue to monitor BUN/Cr. Patient has not had a bowel movement since Wednesday despite Colace. Ordered Dulcolax 5 mg PO x 1 dose today, and order this daily if patient has not had a bowel movement. If this does not work then revisit possible enema with patient who is refusing this at this time although explaining to her that we did not want her to get impacted. Her abdominal exam was uremarkable. She is passing raina. There is also concern for depression as patient states that she does not really want to eat and that she is just picking at her food. There is NO nausea/ vomiting. Therefore Psychiatry Consult was also ordered. Medicine Team please make sure that Physical Therapy Team is getting patient out of bed and walking with her. Explained to patient the importance of this. Again, extensive conversation with patient concerning her request for pain medication. Currently she is on Percocet 5/325 mg PO Q6H PRN Moderate Pain and Morphine 1 mg IV Q6H PRN Severe Pain. Not at any time during my exams this past week did the patient appear to be in distress either when speaking with her updating her on what was happening with her care or when examining her with the help of the nurses (which required turning her for skin examinations). Explained to patient again today that I could not increase her pain medication as I believe that it would worsen her other medical issues (pneumonia, OPHELIA, COPD , constipation, ulcers as she remains sleeping most of the day and as a result not wanting to get out of bed to participate in PT). Please also note that her Eliquis will have to be changed to 5 mg PO Q12H starting on 04/06/17 for her Left Leg DVT. Tolu Rogers D.O.
[2017-04-04] MEDS: Tiotropium 18 mcg Cap For Inhalation INH SCH (07:53)
[2017-04-04 08:16] LABS: BASO # 0.1 K/uL (0.0-0.2); BASO % 0.5 % (0.0-2.0); EOS # 0.7 K/uL (0.0-0.7); HEMOGLOBIN 10.4 g/dL (11.0-16.0); LYMPH # 1.9 K/uL (1.0-4.3); LYMPH % 10.6 % (20.0-40.0); MEAN CELL VOLUME 82.4 fL (81.0-99.0); MEAN CORPUSCULAR HEMOGLOBIN 25.3 pg (27.0-31.0); MEAN CORPUSCULAR HGB CONC 30.7 g/dL (33.0-37.0); MEAN PLATELET VOLUME 8.2 fL (7.2-11.7); MONO # 1.1 K/uL (0.0-0.8); MONO % 5.8 % (0.0-10.0); NEUT # 14.4 K/uL (1.8-7.0); NEUT % 79.1 % (50.0-75.0); RBC 4.13 Mil/uL (3.80-5.20); RED CELL DISTRIBUTION WIDTH 16.5 % (11.5-14.5); WHITE BLOOD COUNT 18.2 K/uL (4.8-10.8)
[2017-04-04 08:20] LABS: ALBUMIN 2.7 g/dL (3.5-5.0)
[2017-04-04 08:24] LABS: ALB/GLOB RATIO 0.8 (1.0-2.1); AST/SGOT 28 U/L (14-36); GFR AFRICAN-AMERICAN > 60; GFR NON-AFRICAN AMERICAN 57
[2017-04-04 08:25] LABS: ALT/SGPT 29 U/L (9-52); BLOOD UREA NITROGEN 20 mg/dL (7-17); MAGNESIUM 2.1 mg/dL (1.6-2.3)
[2017-04-04] MEDS: Ranolazine 500 mg Extended Release Tablets PO SCH ×2 (09:45→17:41)
[2017-04-04] MEDS: Saccharomyces Boulardi 250 mg Cap PO SCH ×2 (09:45→17:41)
[2017-04-04] MEDS: Collagenase 250 Units/gm Ointment(30 gm) TOP SCH ×2 (09:45)
[2017-04-04] MEDS ORDERED: Bisacodyl 5mg EC Tab PO ONE (13:43)
--- NOTE | 2017-04-04 16:56 | CP.PCM.PN ---
Subjective - Date & Time of Evaluation Date of Evaluation: 04/04/17 Time of Evaluation: 03:00 - Subjective Subjective: dictated Objective - Vital Signs/Intake and Output Vital Signs (last 24 hours): Temp Pulse Resp BP Pulse Ox 98.3 F 83 20 96/59 L 98 04/04/17 16:19 04/04/17 16:19 04/04/17 16:19 04/04/17 16:19 04/04/17 16:19 Intake and Output: 04/04/17 04/04/17 06:59 18:59 Intake Total 1220 475 Output Total 625 450 Balance 595 25 - Medications Medications: Current Medications Albuterol Sulfate (Albuterol 0.083% Inhal Cee (2.5 Mg/3 Ml) Ud) 2.5 mg INH RQ6 PRN PRN Reason: Shortness of Breath Last Admin: 03/29/17 08:10 Dose: 2.5 mg Aspirin (Ecotrin) 81 mg PO DAILY [facility] Last Admin: 04/04/17 09:45 Dose: 81 mg Clonazepam (Klonopin) 1 mg PO Q12 [facility] Last Admin: 04/04/17 09:41 Dose: Not Given Collagenase (Santyl) 0 gm TOP DAILY [facility] Last Admin: 04/04/17 09:45 Dose: 1 applic Collagenase (Santyl) 0 gm TOP DAILY [facility] Last Admin: 04/04/17 09:45 Dose: Not Given Docusate Sodium (Colace) 100 mg PO TID [facility] Last Admin: 04/04/17 14:09 Dose: 100 mg Emollient Ointment (Vaseline Oint) 5 gm TOP BID PRN PRN Reason: Dry skin Last Admin: 04/04/17 14:10 Dose: 5 gm Famotidine (Pepcid) 20 mg PO BID [facility] Last Admin: 04/04/17 09:45 Dose: 20 mg Gabapentin (Neurontin) 300 mg PO TID [facility] Last Admin: 04/04/17 14:09 Dose: 300 mg Meropenem 1 gm/ Sodium (Chloride) 100 mls @ 100 mls/hr IVPB Q8 [facility] Last Admin: 04/04/17 14:10 Dose: 100 mls/hr Isosorbide Mononitrate (Imdur) 30 mg PO DAILY [facility] Last Admin: 04/04/17 09:45 Dose: 30 mg Losartan Potassium (Cozaar) 50 mg PO DAILY [facility] Last Admin: 04/04/17 09:45 Dose: 50 mg Morphine Sulfate (Morphine) 1 mg IVP Q6H PRN PRN Reason: Pain, severe (8-10) Last Admin: 04/04/17 14:11 Dose: 1 mg Nitroglycerin (Nitrostat Sl Tab) 0.4 mg SL Q5M PRN Nystatin (Nystop Topical Powder) 1 applic TOP BID [facility] Last Admin: 04/04/17 09:43 Dose: 1 applic Oxycodone/Acetaminophen (Percocet 5/325 Mg Tab) 1 tab PO Q6H PRN PRN Reason: Pain, moderate (4-7) Stop: 04/05/17 09:59 Last Admin: 04/02/17 13:15 Dose: 1 tab Promethazine HCl/Codeine (Phenergan/Codeine Oral Syrup) 5 ml PO Q4 PRN PRN Reason: Cough Last Admin: 03/29/17 16:25 Dose: 5 ml Ranolazine (Ranexa) 500 mg PO BID [facility] Last Admin: 04/04/17 09:45 Dose: 500 mg Rosuvastatin Calcium (Crestor) 20 mg PO HS [facility] Last Admin: 04/03/17 21:42 Dose: 20 mg Saccharomyces Boulardii (Florastor) 250 mg PO BID [facility] Last Admin: 04/04/17 09:45 Dose: 250 mg Tiotropium [place] (Spiriva) 18 mcg INH RQ24 [facility] Last Admin: 04/04/17 07:53 Dose: 18 mcg - Labs Labs: 04/04/17 07:59 04/04/17 07:59 PT 13.3 SECONDS (9.7-12.2) H 03/20/17 22:39 INR 1.2 03/20/17 22:39 APTT 68 SECONDS (21-34) H 03/23/17 06:51 Assessment and Plan (1) Non-STEMI (non-ST elevated myocardial infarction) Status: Acute (2) Sacral wound Status: Acute (3) COPD (chronic obstructive pulmonary disease) Status: Chronic (4) Morbidly obese Status: Chronic (5) OPHELIA (obstructive sleep apnea) Status: Chronic (6) Leukocytosis Status: Acute
--- NOTE | 2017-04-04 17:04 | CP.PCM.PN ---
Subjective - Date & Time of Evaluation Date of Evaluation: 04/04/17 Time of Evaluation: 14:00 - Subjective Subjective: Patient was seen and examined at bedside. She complains of fatigue but stated that she's been sleeping a lot lately because she's bored. She denied chest pain , shortness of breath, abdominal pain, dysuria, fever, chills, nausea, vomiting , diarrhea, headache, bleeding, cough. Objective - Vital Signs/Intake and Output Vital Signs (last 24 hours): Temp Pulse Resp BP Pulse Ox 98.3 F 83 20 96/59 L 98 04/04/17 16:19 04/04/17 16:19 04/04/17 16:19 04/04/17 16:19 04/04/17 16:19 Intake and Output: 04/04/17 04/04/17 06:59 18:59 Intake Total 1220 475 Output Total 625 450 Balance 595 25 - Medications Medications: Current Medications Albuterol Sulfate (Albuterol 0.083% Inhal Cee (2.5 Mg/3 Ml) Ud) 2.5 mg INH RQ6 PRN PRN Reason: Shortness of Breath Last Admin: 03/29/17 08:10 Dose: 2.5 mg Aspirin (Ecotrin) 81 mg PO DAILY [facility] Last Admin: 04/04/17 09:45 Dose: 81 mg Clonazepam (Klonopin) 1 mg PO Q12 [facility] Last Admin: 04/04/17 09:41 Dose: Not Given Collagenase (Santyl) 0 gm TOP DAILY [facility] Last Admin: 04/04/17 09:45 Dose: 1 applic Collagenase (Santyl) 0 gm TOP DAILY [facility] Last Admin: 04/04/17 09:45 Dose: Not Given Docusate Sodium (Colace) 100 mg PO TID [facility] Last Admin: 04/04/17 14:09 Dose: 100 mg Emollient Ointment (Vaseline Oint) 5 gm TOP BID PRN PRN Reason: Dry skin Last Admin: 04/04/17 14:10 Dose: 5 gm Famotidine (Pepcid) 20 mg PO BID [facility] Last Admin: 04/04/17 09:45 Dose: 20 mg Gabapentin (Neurontin) 300 mg PO TID [facility] Last Admin: 04/04/17 14:09 Dose: 300 mg Meropenem 1 gm/ Sodium (Chloride) 100 mls @ 100 mls/hr IVPB Q8 [facility] Last Admin: 04/04/17 14:10 Dose: 100 mls/hr Vancomycin HCl 1 gm/ Sodium (Chloride) 250 mls @ 167 mls/hr IVPB Q24H [facility] Isosorbide Mononitrate (Imdur) 30 mg PO DAILY [facility] Last Admin: 04/04/17 09:45 Dose: 30 mg Losartan Potassium (Cozaar) 50 mg PO DAILY [facility] Last Admin: 04/04/17 09:45 Dose: 50 mg Morphine Sulfate (Morphine) 1 mg IVP Q6H PRN PRN Reason: Pain, severe (8-10) Last Admin: 04/04/17 14:11 Dose: 1 mg Nitroglycerin (Nitrostat Sl Tab) 0.4 mg SL Q5M PRN Nystatin (Nystop Topical Powder) 1 applic TOP BID [facility] Last Admin: 04/04/17 09:43 Dose: 1 applic Oxycodone/Acetaminophen (Percocet 5/325 Mg Tab) 1 tab PO Q6H PRN PRN Reason: Pain, moderate (4-7) Stop: 04/05/17 09:59 Last Admin: 04/02/17 13:15 Dose: 1 tab Promethazine HCl/Codeine (Phenergan/Codeine Oral Syrup) 5 ml PO Q4 PRN PRN Reason: Cough Last Admin: 03/29/17 16:25 Dose: 5 ml Ranolazine (Ranexa) 500 mg PO BID [facility] Last Admin: 04/04/17 09:45 Dose: 500 mg Rosuvastatin Calcium (Crestor) 20 mg PO HS [facility] Last Admin: 04/03/17 21:42 Dose: 20 mg Saccharomyces Boulardii (Florastor) 250 mg PO BID [facility] Last Admin: 04/04/17 09:45 Dose: 250 mg Tiotropium [place] (Spiriva) 18 mcg INH RQ24 [facility] Last Admin: 04/04/17 07:53 Dose: 18 mcg - Labs Labs: 04/04/17 07:59 04/04/17 07:59 PT 13.3 SECONDS (9.7-12.2) H 03/20/17 22:39 INR 1.2 03/20/17 22:39 APTT 68 SECONDS (21-34) H 03/23/17 06:51 - Head Exam Head Exam: ATRAUMATIC, NORMOCEPHALIC - Eye Exam Eye Exam: Normal appearance - ENT Exam ENT Exam: Mucous Membranes Moist - Neck Exam Neck Exam: Normal Inspection - Respiratory Exam Respiratory Exam: Decreased Breath Sounds - Cardiovascular Exam Cardiovascular Exam: REGULAR RHYTHM - GI/Abdominal Exam GI & Abdominal Exam: Soft, Normal Bowel Sounds Assessment and Plan (1) COPD (chronic obstructive pulmonary disease) Status: Chronic (2) Non-STEMI (non-ST elevated myocardial infarction) Status: Acute (3) SIRS (systemic inflammatory response syndrome) Status: Acute (4) OPHELIA (obstructive sleep apnea) Status: Chronic
[2017-04-04] MEDS: Oxycodone/Acetaminophen 5/325 mg Tab PO PRN (17:39)
[2017-04-04] MEDS: Vancomycin 1 gm/NS 200 ml 1 GM/200 ML BAG IVPB SCH (18:07)
--- NOTE | 2017-04-05 04:45 | PN ---
DATE: 04/04/2017 SUBJECTIVE: The patient is feeling better. She had a good BM today. She is trying to change her position. She looks well. She is not in shortness of breath. Denies any chest pain. No shortness of breath. No abdominal pain. No nausea. No fever. No chills. No diarrhea. No headache. PHYSICAL EXAMINATION GENERAL: She is alert and awake. She is morbidly obese. VITAL SIGNS: Temperature is 98.3, pulse 83, blood pressure is 96/59, respirations are 20. Blood pressure is on the low side today. She is on albuterol, Ecotrin, clonazepam, *------* and she is on Colace, Vaseline, Pepcid, Neurontin, isosorbide, she is getting meropenem and B12. Now, she is on Nystatin local application, oxycodone, promethazine, ranolazine, Crestor, Florastor and Spiriva. HEENT: Head is atraumatic and normocephalic. NECK: Supple. CARDIOPULMONARY: S1 and S2 regular. No gallops. No murmurs. LUNGS: Clear. No crackles or rales present. Occasional wheeze present. ABDOMEN: Soft and nontender. No guarding. No rigidity present. EXTREMITIES: Obesity present and are normal on exam. LABORATORY DATA: Labs are noted. White count is 18.2, hemoglobin 10.4, hematocrit 34.4, platelet count is 388. She does have a sacral decubitus septic workup. Came out all negative. PICC line was seen from the right to the left. *The blood cultures or urine cultures all were negative. At this time, she did come in with pneumonia and last chest x-ray was on 03/31/2017, which shows mild pulmonary congestive changes have improved; however, there are vague confluent opacities seen in the lung bases, left greater than the right. This may represent some alveolar-type infiltrate related to pulmonary edema and CHF. Suggested to continue meropenem. I will check her labs for the vancomycin random level, which was ordered, is now 12.5 from yesterday. She is off vancomycin. We will reintroduce it as vancomycin 1 g a day if her creatinine is 1, so she can go back on vancomycin and will follow. The patient will need another peak and trough on the third dose. The patient is recovering, has acute exacerbation of chronic obstructive pulmonary disease, pneumonia and sacral decubitus and morbid obesity; seems to be slightly better. Allyssa Cedeño MD
[2017-04-05] MEDS: Meropenem 1 GM in Sodium Chloride 0.9% 100 ML IVPB SCH ×3 (06:32→21:54)
[2017-04-05] MEDS: Oxycodone/Acetaminophen 5/325 mg Tab PO PRN (07:02)
[2017-04-05 07:50] LABS: BASO # 0.3 K/uL (0.0-0.2); BASO % 1.8 % (0.0-2.0); EOS # 0.7 K/uL (0.0-0.7); EOS % 4.5 % (0.0-4.0); HEMOGLOBIN 9.8 g/dL (11.0-16.0); LYMPH # 2.4 K/uL (1.0-4.3); LYMPH % 15.5 % (20.0-40.0); MEAN CORPUSCULAR HEMOGLOBIN 25.5 pg (27.0-31.0); MEAN CORPUSCULAR HGB CONC 30.8 g/dL (33.0-37.0); MEAN PLATELET VOLUME 8.5 fL (7.2-11.7); MONO # 1.1 K/uL (0.0-0.8); MONO % 6.8 % (0.0-10.0); NEUT # 11.1 K/uL (1.8-7.0); NEUT % 71.4 % (50.0-75.0); RBC 3.84 Mil/uL (3.80-5.20); RED CELL DISTRIBUTION WIDTH 16.3 % (11.5-14.5); WHITE BLOOD COUNT 15.6 K/uL (4.8-10.8)
[2017-04-05 08:07] LABS: ALBUMIN 2.5 g/dL (3.5-5.0)
[2017-04-05] MEDS: Tiotropium 18 mcg Cap For Inhalation INH SCH (08:07)
[2017-04-05 08:10] LABS: ALB/GLOB RATIO 0.8 (1.0-2.1); ALT/SGPT 29 U/L (9-52); AST/SGOT 33 U/L (14-36); BLOOD UREA NITROGEN 17 mg/dL (7-17); GFR AFRICAN-AMERICAN > 60; GFR NON-AFRICAN AMERICAN > 60
[2017-04-05 08:11] LABS: CALCIUM 8.8 mg/dl (8.6-10.4); MAGNESIUM 1.9 mg/dL (1.6-2.3)
--- NOTE | 2017-04-05 09:16 | CP.PCM.PN ---
Subjective - Date & Time of Evaluation Date of Evaluation: 04/05/17 Time of Evaluation: 07:00 - Subjective Subjective: PGY1- Medicine Note- Dr. Mccollum's Service Patient seen and examined at bedside and in no acute distress. Patient woken up and stated she was very tired. Patient said she had some pain in her legs and hips which she says is chronic and does not feel any different from baseline today. Patient denies headache, chest pain, shortness of breath, or abdominal pain. Objective - Vital Signs/Intake and Output Vital Signs (last 24 hours): Temp Pulse Resp BP Pulse Ox 98.3 F 78 18 95/57 L 97 04/05/17 07:35 04/05/17 07:35 04/05/17 07:35 04/05/17 07:35 04/05/17 07:35 Intake and Output: 04/05/17 04/05/17 06:59 18:59 Intake Total 350 Output Total 500 Balance -150 - Medications Medications: Current Medications Albuterol Sulfate (Albuterol 0.083% Inhal Cee (2.5 Mg/3 Ml) Ud) 2.5 mg INH RQ6 PRN PRN Reason: Shortness of Breath Last Admin: 03/29/17 08:10 Dose: 2.5 mg Aspirin (Ecotrin) 81 mg PO DAILY [facility] Last Admin: 04/04/17 09:45 Dose: 81 mg Clonazepam (Klonopin) 1 mg PO Q12 [facility] Last Admin: 04/04/17 22:19 Dose: 1 mg Collagenase (Santyl) 0 gm TOP DAILY [facility] Last Admin: 04/04/17 09:45 Dose: 1 applic Collagenase (Santyl) 0 gm TOP DAILY [facility] Last Admin: 04/04/17 09:45 Dose: Not Given Docusate Sodium (Colace) 100 mg PO TID [facility] Last Admin: 04/04/17 17:41 Dose: 100 mg Emollient Ointment (Vaseline Oint) 5 gm TOP BID PRN PRN Reason: Dry skin Last Admin: 04/04/17 14:10 Dose: 5 gm Famotidine (Pepcid) 20 mg PO BID [facility] Last Admin: 04/04/17 17:41 Dose: 20 mg Gabapentin (Neurontin) 300 mg PO TID [facility] Last Admin: 04/04/17 17:41 Dose: 300 mg Meropenem 1 gm/ Sodium (Chloride) 100 mls @ 100 mls/hr IVPB Q8 [facility] Last Admin: 04/05/17 06:32 Dose: 100 mls/hr Vancomycin/Sodium Chloride (Vancocin) 1 gm in 200 mls @ 167 mls/hr IVPB Q24H [facility] Stop: 04/09/17 17:16 Last Admin: 04/04/17 18:07 Dose: 167 mls/hr Isosorbide Mononitrate (Imdur) 30 mg PO DAILY [facility] Last Admin: 04/04/17 09:45 Dose: 30 mg Losartan Potassium (Cozaar) 50 mg PO DAILY [facility] Last Admin: 04/04/17 09:45 Dose: 50 mg Morphine Sulfate (Morphine) 1 mg IVP Q6H PRN PRN Reason: Pain, severe (8-10) Last Admin: 04/04/17 22:20 Dose: 1 mg Nitroglycerin (Nitrostat Sl Tab) 0.4 mg SL Q5M PRN Nystatin (Nystop Topical Powder) 1 applic TOP BID [facility] Last Admin: 04/04/17 17:42 Dose: 1 applic Oxycodone/Acetaminophen (Percocet 5/325 Mg Tab) 1 tab PO Q6H PRN PRN Reason: Pain, moderate (4-7) Stop: 04/05/17 09:59 Last Admin: 04/05/17 07:02 Dose: 1 tab Promethazine HCl/Codeine (Phenergan/Codeine Oral Syrup) 5 ml PO Q4 PRN PRN Reason: Cough Last Admin: 03/29/17 16:25 Dose: 5 ml Ranolazine (Ranexa) 500 mg PO BID [facility] Last Admin: 04/04/17 17:41 Dose: 500 mg Rosuvastatin Calcium (Crestor) 20 mg PO HS [facility] Last Admin: 04/04/17 22:19 Dose: 20 mg Saccharomyces Boulardii (Florastor) 250 mg PO BID [facility] Last Admin: 04/04/17 17:41 Dose: 250 mg Tiotropium [place] (Spiriva) 18 mcg INH RQ24 [facility] Last Admin: 04/05/17 08:07 Dose: 18 mcg - Labs Labs: 04/05/17 07:42 04/05/17 07:42 PT 13.3 SECONDS (9.7-12.2) H 03/20/17 22:39 INR 1.2 03/20/17 22:39 APTT 68 SECONDS (21-34) H 03/23/17 06:51 - Constitutional Appears: Non-toxic, No Acute Distress, Other (morbidly obese) - Head Exam Head Exam: ATRAUMATIC, NORMAL INSPECTION, NORMOCEPHALIC - Eye Exam Eye Exam: EOMI, Normal appearance, PERRL - ENT Exam ENT Exam: Mucous Membranes Moist, Normal Exam - Neck Exam Neck Exam: Full ROM, Normal Inspection. absent: Lymphadenopathy - Respiratory Exam Respiratory Exam: Clear to Ausculation Bilateral, NORMAL BREATHING PATTERN. absent: Rales, Rhonchi, Wheezes, Respiratory Distress, Stridor - Cardiovascular Exam Cardiovascular Exam: REGULAR RHYTHM, RRR - GI/Abdominal Exam GI & Abdominal Exam: Soft, Normal Bowel Sounds - Extremities Exam Extremities Exam: Normal Inspection - Back Exam Additional comments: 2 cm stage 2 right sacral ulcer 2 cm unstageable ulcer within gluteal folds, ulcer with erythemetous border - Neurological Exam Neurological Exam: Alert, Awake, Oriented x3 - Psychiatric Exam Psychiatric exam: Normal Affect, Normal Mood - Skin Skin Exam: Intact, Normal Color, Warm Additional comments: 2 cm stage 2 right sacral ulcer 2 cm unstageable ulcer within gluteal folds, ulcer with erythemetous border Assessment and Plan - Assessment and Plan (Free Text) Assessment: (1) Non-STEMI (non-ST elevated myocardial infarction) History of prior myocardial infarction Assessment & Plan: Cardiology (Dr. David) on board-->help appreciated-->signed off 03/24/17 Per cardiology note, bedside ECHO (03/22/17)--> Preserved LV function, no sig valve regurge, mild dilated RV with preserved RV function. Inferobasal and basal septum appear aneurysmal. Troponin 6.05, 7.41, 9.17 Clinically no angina, arrythmia or worsening systolic dysfunction sx's. 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 No plans for c.cath. [facility] Rx for CAD. Per cardiology, * ASA 81 mg PO daily * Plavix 75mg PO daily * Crestor 20mg PO qHS * Metoprolol 50mg PO BID (Hold SBP<100 and HR<60) * Losartan 50mg PO daily (Hold SBP<100) * Ranexa 550mg PO bid * On heparin dvt ppx * Continue Imdur 30mg PO daily (hold SBP<100) * [facility] Rx for OPHELIA/Obesity * Encourage mobility Pulmonary (Dr. Quiñones) on board-->help appreciated Status: Acute (2) Morbidly obese Status: Chronic * Patient reports she has had unintentional weight loss over the past year * [facility] referral * Physical therapy eval and treat * Occupational eval and treat * OOB (3) SIRS (systemic inflammatory response syndrome) Assessment & Plan: 04/05: wbc 15.6, afebrile 04/04: wbc trending down. afebrile. Dr Cedeño held vancomycin due to high trough level. 04/03: wbc 21, afebrile. elevated wbc could be 2/2 pneumonia or unstageable ulcer. all cultures are still negative to date. 04/02: wbc 20.2. Will hold vanco today and wait for repeat vanco trough tomorrow AM. discontinued lasix due to low BP 04/02: discontinued toradol, ordered percocet 5/325mg 1 tab q6 for pain 04/02: vanco trough elevated at 23.3. urine culture negative; blood culture negative to date; PICC tip culture negative 04/01: wbc 21.6; afebrile 03/31: wbc 24.7; afebrile 03/31: blood culture ordered, urine culture ordered, picc tip culture ordered 03/31: picc line pulled, midline catheter placed, pradhan replaced 03/31: discontinued cefepime 1gm iv q12. started vancomycin 1gm q12 iv started. vanco trough to be checked 04/01 21:30 03/31: started meropenem 1gm iv q8 03/31: CXR ordered today: "Mild pulmonary vascular congestive changes may have improved slightly however there are vague somewhat more confluent opacities seen in the lung bases left greater than right, that may represent some residual alveolar-type infiltrates related to pulmonary edema/ CHF. Cardiomegaly. 03/30: wbc 18.6 trending up from 17.5; afebrile * 03/29: started cefepime 1gm IV q12 * 03/29: discontinued Zosyn 4.5 IV Q 6hours (Active since 03/21/17) * 03/29: discontinued Vancomycin 1 gram IVQ 12hours (active since on 03/28/17) * 03/28: CXR: "Moderate venous congestion. Patchy left basilar airspace opacity. Enlarged ectactic aorta. Cardiomegaly" * 03/28: Urine culture no growth 03/28: blood culture no growth to date 03/26: MRSA culture -> MRSA not detected * 03/22: CXR: "New right PICC catheter terminates at level of cavoatrial junction. Mild congestive change" * 03/20: CXR: no acute findings * 03/20: CT Chest: "no ct evidence of acute pulmonary embolism, aortic aneurysm, or aortic dissection. [place] airspace disease in the posterio basal segment of the left lower lobe may represent subsegmental atelectasis however pneumonia cannot be excluded. Patient has moderate left hilar lymphadenopathy of uncertain etiology" * 03/20: Blood culture no growth after 4 days X2 * UA (2nd): hematuria-->treat as urinary tract infection-->repeat today * Urine culture (03/22/17): no growth * strep pneumoniae, legionella: negative, and mycoplasma IGM: negative * sacral wound: turn q 2hours, and wound care * Florastor 250mg PO bid Status: Acute (4) Pneumonia Assessment & Plan: 03/30: wbc 18.6 trending up from 17.5; afebrile 03/29: started cefepime 1gm IV q12 * 03/29: discontinued Zosyn 4.5 IV Q 6hours (Active since 03/21/17) * 03/29: discontinued Vancomycin 1 gram IVQ 12hours started on 03/28/17 * CXR 03/28/17-Moderate venous congestion. Patchy left basilar airspace opacity. Enlarged ectactic aorta. Cardiomegaly. * Florastor 250mg PO bid (5) HTN (hypertension) Assessment & Plan: * discontinued Metoprolol 50mg PO BID * Losartan 50mg PO daily (Hold SBP<100) * Ranexa 500mg PO bid * Continue Imdur 30mg PO daily Status: Chronic (6) OPHELIA (obstructive sleep apnea) Status: Chronic * BIPAP * Educated about consistency of wearing the mask at bedside (7) COPD (chronic obstructive pulmonary disease) Status: Chronic * Albuterol 3ml inhaled RQ4 * Continue Spiriva 18mcg inhaled q daily * BIPAP prn- Instructed patient to request Bipap every night * CXR- 03/25/17- Cardiomegaly and pulmonary vnenous congestion (Please see full report) (8) History of Spinal stenosis Status: Chronic * Klonopin 1mg PO Q12h * Gabapentin 300mg PO TID * pain management consult ordered 04/05 (9) Unstagable Sacral Ulcer in Gluteal Folds 04/04: ulcer looks less nectrotic today compared to yesterday 04/03: Dr Rogers and I inspected this ulcer today which seems less necrotic today compared to a few days ago. There is a border of erythema and the black eschar is less prominent. It seems the Santyl is working well. Will defer to surgery regarding debridement. 04/01: Santyl once a day topical applied to ulcer. Discussed with surgery, will re-evaluate on tuesday 04/03 and consider debridement at that point. 03/31: Dr Smith of surgery consulted. Dr Rogers spoke with Dr Smith who said sacral ulcer does not need debridement right now 03/31: Wound care nurse Tre Alcazar describes this as an unstageable ulcer Wound care Turn Q 2hours (10) Microscopic Hematuria * Multiple UAs with microscopic hematuria * Bladder/ Renal Ultrasound- 03/28/17- Multiple bilateral scattered renal caluli without evidence of gross hydronephrosis. 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 wound care. turn q2 hours. (15) Acute Kidney Injury 04/05: BUN: 17 Cr: 0.9 04/03: BUN 28 Cr 1.3. SHERWIN likely 2/2 lasix vs toradol use vs merepenem abx. Will hold lasix and the toradol has been discontinued. Will administer 500cc's of NS at 75cc/hr. (16) Depression 04/05: Lexapro 5 mg po daily started, Klonopin 1mg BID for anxiety as per psych 04/04: Dr Godwin, psychiatry consulted to evaluate patient for depression. morbid obesity has a high correlation with major depressive disorder. (17) Prophylactic measure Assessment & Plan: * Heparin 5000 units Q 8 hours * GI ppx: Pepcid 20mg PO BID * Wound care * TurnQ 2hours * Aspirin 81mg PO daily * PT/OT eval * OOB * vasoline to lips bid * glycerna protein shake 3x a day
[2017-04-05] MEDS: Saccharomyces Boulardi 250 mg Cap PO SCH ×2 (10:34→17:59)
[2017-04-05] MEDS: Ranolazine 500 mg Extended Release Tablets PO SCH ×2 (10:35→17:59)
[2017-04-05] MEDS: Collagenase 250 Units/gm Ointment(30 gm) TOP SCH ×2 (10:36)
--- NOTE | 2017-04-05 12:32 | PCM.PSYCH ---
Initial Psychiatric Evaluation - Initial Psychiatric Evaluation Type of Admission: Voluntary Legal Status: Capacity Chief Complaint (in patient's own words): "Depressed" History of Present Illness and Precipitating Events: The patient is seen, chart reviewed and case discussed. This is an almost 62-year-old female, single with no child, lives alone, on disability for significant back problems including stenosis and disc hernia. The patient says that she slipped 3 weeks ago and she got pneumonia and some cardiac problems back to back and she has still not left the hospital. She reports feeling depressed, on had on intake, low self-esteem and very anxious. She says that she had been diagnosed with depression and anxiety in the past and was seeing Dr. Smith on [facility]. She says she is on Lexapro and Klonopin but here she was not taking these medications, at least not the same doses. For instance, she claims she is on 2 mg 3 times a day Klonopin - which is a high dose- but she was only on 1 mg twice a day here and Lexapro was not started. She denies feeling suicidal and no manic or psychotic symptoms elicited Past psych history: Depression and anxiety and outpatient treatment. No admissions and no suicide attempts Family psych history: Mother had psychiatric problems sister and brother also had depression. No substance use in the patient or others. Medical history: As above Current Medications: Active Medications Generic Name Dose Route Start Last Admin Trade Name Freq PRN Reason Stop Dose Admin Albuterol Sulfate 2.5 mg 03/28/17 11:34 03/29/17 08:10 Albuterol 0.083% Inhal Cee (2.5 Mg/3 Ml) Ud INH 2.5 mg RQ6 PRN Administration Shortness of Breath Apixaban 5 mg 04/05/17 11:30 Eliquis PO BID RIK Aspirin 81 mg 03/25/17 08:02 04/05/17 10:36 Ecotrin PO 81 mg DAILY RIK Administration Clonazepam 1 mg 03/20/17 23:45 04/05/17 10:35 Klonopin PO 1 mg Q12 RIK Administration Collagenase 0 gm 03/30/17 10:00 04/04/17 09:45 Santyl TOP 1 applic DAILY RIK Administration Collagenase 0 gm 04/01/17 10:00 04/05/17 10:36 Santyl TOP 1 applic DAILY RIK Administration Docusate Sodium 100 mg 04/03/17 14:00 04/05/17 10:36 Colace PO 100 mg TID RIK Administration Emollient Ointment 5 gm 04/03/17 12:08 04/04/17 14:10 Vaseline Oint TOP 5 gm BID PRN Administration Dry skin Famotidine 20 mg 03/25/17 10:00 04/05/17 10:36 Pepcid PO 20 mg BID RIK Administration Gabapentin 300 mg 03/20/17 23:45 04/05/17 10:36 Neurontin PO 300 mg TID RIK Administration Meropenem 1 gm/ Sodium 100 mls @ 100 mls/hr 03/31/17 22:00 04/05/17 06:32 Chloride IVPB 100 mls/hr Q8 RIK Administration Vancomycin/Sodium Chloride 1 gm in 200 mls @ 167 mls/hr 04/04/17 17:15 18:07 Vancocin IVPB 04/09/17 17:16 167 mls/hr Q24H RIK Administration Isosorbide Mononitrate 30 mg 03/25/17 10:00 04/05/17 10:34 Imdur PO 30 mg DAILY RIK Administration Losartan Potassium 50 mg 03/22/17 16:09 04/05/17 10:36 Cozaar PO 50 mg DAILY RIK Administration Morphine Sulfate 1 mg 03/30/17 17:43 04/04/17 22:20 Morphine IVP 1 mg Q6H PRN Administration Pain, severe (8-10) Nitroglycerin 0.4 mg 03/20/17 23:50 Nitrostat Sl Tab SL Q5M PRN Nystatin 1 applic 03/29/17 18:00 04/05/17 10:35 Nystop Topical Powder TOP 1 applic BID RIK Administration Promethazine HCl/Codeine 5 ml 03/22/17 16:10 03/29/17 16:25 Phenergan/Codeine Oral Syrup PO 5 ml Q4 PRN Administration Cough Ranolazine 500 mg 03/24/17 10:00 04/05/17 10:35 Ranexa PO 500 mg BID RIK Administration Rosuvastatin Calcium 20 mg 03/21/17 22:00 04/04/17 22:19 Crestor PO 20 mg HS RIK Administration Saccharomyces Boulardii 250 mg 03/22/17 18:00 04/05/17 10:34 Florastor PO 250 mg BID RIK Administration Tiotropium [place] 18 mcg 03/26/17 08:00 04/05/17 08:07 Spiriva INH 18 mcg RQ24 RIK Administration Past Psychiatric History - Past Psychiatric History Previous Treatment History: Intensive Outpatient Pertinent Medical Hx (Current Medical&Sleep Prob, Allergies): Allergies Allergy/AdvReac Type Severity Reaction Status Date / Time No Known Allergies Allergy Verified 02/01/16 05:56 Escitalopram [Lexapro] 20 mg PO DAILY 02/01/16 Ropinirole HCl 1 mg PO HS 02/01/16 Ciprofloxacin [Cipro] 750 mg PO 0600,1800 #0 tab 02/12/16 Clotrimazole/Betamethasone [Lotrisone] 0 gm TOP BID #0 tube 02/12/16 Fluconazole [Diflucan] 200 mg PO Q24H #0 tab 02/12/16 Labetalol [Trandate] 100 mg PO BID #0 tab 02/12/16 Losartan [Cozaar] 50 mg PO Q12H #0 tab 02/12/16 Saccharomyces Boulardi [Florastor] 250 mg PO BID #0 cap 02/12/16 amLODIPine [Norvasc] 5 mg PO Q12H #0 tab 02/12/16 clonazePAM [Klonopin] 1 mg PO TID PRN #0 tab 02/12/16 metroNIDAZOLE [Flagyl] 500 mg PO Q8H #0 tab 02/12/16 Review of Systems - Psychiatric Psychiatric: Abnormal Sleep Pattern, Anhedonia, Anxiety, Change in Appetite, Depression, Difficulty Concentrating. absent: Hallucinations, Homicidal Ideation, Suicidal Ideation Mental Status Examination - Personal Presentation Personal Presentation: Looks stated age - Affect Affect: Constricted - Motor Activity Motor Activity: Calm - Reliability in Providing Information Reliability in Providing Information: Good - Speech Speech: Organized - Mood Mood: Depressed, Anxious - Formal Thought Process Formal Thought Process: No Impairment - Cognitive Functions Orientation: Person, Place, Situation, Time Sensorium: Alert Attention/Concentration: Attentive Estimate of Intelligence: Average Judgement: Intact, as evidence by: Insight regarding need for hospitalization Memory: Recent intact, as evidence by: Ability to recall events of the day, Remote intact, as evidenced by: Abilit to recall sig. life events - Risk Risk: Diminished functioning - Strength & Assets Inventory Strength & Assets Inventory: Cooperative - Limitations Limitations: Living alone DSM 5 DX - DSM 5 DSM 5 Diagnosis: Major depressive d/o - recurrent, severe BRODIE - Recommended/Plan of Treatment Treatment Recommendations and Plan of Treatment: Resume Lexapro Klonopin bid 1 mg for anxiety Support and psychoed CBt Refer back to psychiatrist 31 min
[2017-04-05] MEDS: Vancomycin 1 gm/NS 200 ml 1 GM/200 ML BAG IVPB SCH (17:59)
[2017-04-06 00:56] VITALS: RESP 20
[2017-04-06] MEDS ORDERED: Oxycodone/Acetaminophen 5/325 mg Tab PO PRN ×2 (02:32→12:04)
[2017-04-06] MEDS: Meropenem 1 GM in Sodium Chloride 0.9% 100 ML IVPB SCH ×3 (06:35→21:37)
[2017-04-06 07:33] LABS: ALBUMIN 2.4 g/dL (3.5-5.0)
[2017-04-06 07:36] LABS: ALB/GLOB RATIO 0.7 (1.0-2.1); AST/SGOT 35 U/L (14-36); GFR AFRICAN-AMERICAN > 60; GFR NON-AFRICAN AMERICAN > 60
[2017-04-06 07:37] LABS: ALT/SGPT 28 U/L (9-52); BLOOD UREA NITROGEN 16 mg/dL (7-17); CALCIUM 8.7 mg/dl (8.6-10.4); MAGNESIUM 1.9 mg/dL (1.6-2.3)
[2017-04-06] MEDS: Tiotropium 18 mcg Cap For Inhalation INH SCH (07:50)
[2017-04-06 07:53] LABS: BASO # 0.1 K/uL (0.0-0.2); BASO % 0.7 % (0.0-2.0); EOS # 0.8 K/uL (0.0-0.7); EOS % 6.1 % (0.0-4.0); HEMOGLOBIN 9.9 g/dL (11.0-16.0); LYMPH # 2.9 K/uL (1.0-4.3); LYMPH % 22.1 % (20.0-40.0); MEAN CORPUSCULAR HEMOGLOBIN 25.9 pg (27.0-31.0); MEAN CORPUSCULAR HGB CONC 31.6 g/dL (33.0-37.0); MEAN PLATELET VOLUME 7.6 fL (7.2-11.7); MONO % 7.9 % (0.0-10.0); NEUT # 8.3 K/uL (1.8-7.0); NEUT % 63.2 % (50.0-75.0); NRBC % 0.1 % (0.0-2.0); RBC 3.81 Mil/uL (3.80-5.20); RED CELL DISTRIBUTION WIDTH 16.8 % (11.5-14.5); WHITE BLOOD COUNT 13.1 K/uL (4.8-10.8)
[2017-04-06] MEDS: Ranolazine 500 mg Extended Release Tablets PO SCH ×2 (10:39→19:01)
[2017-04-06] MEDS: Collagenase 250 Units/gm Ointment(30 gm) TOP SCH ×3 (10:40→10:48)
[2017-04-06] MEDS: Saccharomyces Boulardi 250 mg Cap PO SCH ×2 (10:47→18:30)
--- NOTE | 2017-04-06 12:53 | CT ---
PROCEDURE: CT HEAD WITHOUT CONTRAST. HISTORY: headache COMPARISON: Noncontrast head CT performed 02/01/16 TECHNIQUE: Axial computed tomography images were obtained through the head/brain without intravenous contrast. Radiation dose: Total exam DLP = 981.84 mGy-cm. This CT exam was performed using one or more of the following dose reduction techniques: Automated exposure control, adjustment of the mA and/or kV according to patient size, and/or use of iterative reconstruction technique. FINDINGS: HEMORRHAGE: No intracranial hemorrhage. BRAIN: No mass effect or edema. Diffuse atrophy with prominence of the ventricles and sulci noted. Scattered periventricular and subcortical white matter hypodensities, which are nonspecific, but often seen with chronic microvascular ischemic disease. VENTRICLES: No hydrocephalus. CALVARIUM: Unremarkable. PARANASAL SINUSES: Unremarkable as visualized. No significant inflammatory changes. MASTOID AIR CELLS: Unremarkable as visualized. No inflammatory changes. OTHER FINDINGS: None. IMPRESSION: No acute intracranial pathology identified.
[2017-04-06] MEDS: oxyCODONE 20 mg ER Tab (oxyCONTIN) PO SCH ×2 (12:58→21:38)
--- NOTE | 2017-04-06 18:38 | CP.PCM.PN ---
Subjective - Date & Time of Evaluation Date of Evaluation: 04/06/17 Time of Evaluation: 08:00 - Subjective Subjective: PGY1- Medicine Note- Dr. Mccollum's Service Patient seen and examined at bedside and in no acute distress. Patient complains of pain where her ulcer is and rates it an 8/10 and is better or worse depending on position. Patient also complains of leg pain that is chronic and rates it 6/10. She feels weak and tired and is on nasal canula for shortness of breath. Patient denies any chest pain, abdominal pain, nausea, vomiting, constipation, or diarrhea. Objective - Vital Signs/Intake and Output Vital Signs (last 24 hours): Temp Pulse Resp BP Pulse Ox 97.9 F 84 20 138/76 94 L 04/06/17 15:00 04/06/17 15:00 04/06/17 15:00 04/06/17 15:00 04/06/17 15:00 Intake and Output: 04/06/17 04/06/17 06:59 18:59 Intake Total 580 Output Total 750 300 Balance -750 280 - Medications Medications: Current Medications Albuterol Sulfate (Albuterol 0.083% Inhal Cee (2.5 Mg/3 Ml) Ud) 2.5 mg INH RQ6 PRN PRN Reason: Shortness of Breath Last Admin: 03/29/17 08:10 Dose: 2.5 mg Apixaban (Eliquis) 5 mg PO BID [facility] Last Admin: 04/06/17 10:39 Dose: 5 mg Aspirin (Ecotrin) 81 mg PO DAILY [facility] Last Admin: 04/06/17 10:39 Dose: 81 mg Clonazepam (Klonopin) 1 mg PO BID [facility] Last Admin: 04/06/17 10:38 Dose: 1 mg Collagenase (Santyl) 0 gm TOP DAILY [facility] Last Admin: 04/06/17 10:47 Dose: 1 applic Collagenase (Santyl) 0 gm TOP DAILY [facility] Last Admin: 04/06/17 10:48 Dose: 1 applic Docusate Sodium (Colace) 100 mg PO TID [facility] Last Admin: 04/06/17 13:00 Dose: 100 mg Emollient Ointment (Vaseline Oint) 5 gm TOP BID PRN PRN Reason: Dry skin Last Admin: 04/04/17 14:10 Dose: 5 gm Escitalopram Oxalate (Lexapro) 5 mg PO DAILY [facility] Last Admin: 04/06/17 10:39 Dose: 5 mg Famotidine (Pepcid) 20 mg PO BID [facility] Last Admin: 04/06/17 10:51 Dose: 20 mg Gabapentin (Neurontin) 300 mg PO TID [facility] Last Admin: 04/06/17 13:00 Dose: 300 mg Meropenem 1 gm/ Sodium (Chloride) 100 mls @ 100 mls/hr IVPB Q8 [facility] Last Admin: 04/06/17 13:48 Dose: 100 mls/hr Vancomycin/Sodium Chloride (Vancocin) 1 gm in 200 mls @ 167 mls/hr IVPB Q24H [facility] Stop: 04/09/17 17:16 Last Admin: 04/05/17 17:59 Dose: 167 mls/hr Isosorbide Mononitrate (Imdur) 30 mg PO DAILY [facility] Last Admin: 04/06/17 10:47 Dose: 30 mg Losartan Potassium (Cozaar) 50 mg PO DAILY [facility] Last Admin: 04/06/17 10:39 Dose: 50 mg Morphine Sulfate (Morphine) 1 mg IVP Q6H PRN PRN Reason: Pain, severe (8-10) Last Admin: 04/06/17 07:00 Dose: 1 mg Nitroglycerin (Nitrostat Sl Tab) 0.4 mg SL Q5M PRN Nystatin (Nystop Topical Powder) 1 applic TOP BID [facility] Last Admin: 04/06/17 10:49 Dose: 1 applic Oxycodone HCl (Oxycontin Extended Release Tab) 20 mg PO Q12 [facility] Last Admin: 04/06/17 12:58 Dose: 20 mg Oxycodone/Acetaminophen (Percocet 5/325 Mg Tab) 1 tab PO Q4H PRN PRN Reason: Pain, moderate (4-7) Stop: 04/09/17 02:33 Promethazine HCl/Codeine (Phenergan/Codeine Oral Syrup) 5 ml PO Q4 PRN PRN Reason: Cough Last Admin: 03/29/17 16:25 Dose: 5 ml Ranolazine (Ranexa) 500 mg PO BID [facility] Last Admin: 04/06/17 10:39 Dose: 500 mg Rosuvastatin Calcium (Crestor) 20 mg PO HS [facility] Last Admin: 04/05/17 21:54 Dose: 20 mg Saccharomyces Boulardii (Florastor) 250 mg PO BID [facility] Last Admin: 04/06/17 10:47 Dose: 250 mg Tiotropium [place] (Spiriva) 18 mcg INH RQ24 [facility] Last Admin: 04/06/17 07:50 Dose: 18 mcg - Labs Labs: 04/06/17 07:10 04/06/17 07:10 PT 13.3 SECONDS (9.7-12.2) H 03/20/17 22:39 INR 1.2 03/20/17 22:39 APTT 68 SECONDS (21-34) H 03/23/17 06:51 - Constitutional Appears: Non-toxic, No Acute Distress, Other (morbidly obese) - Head Exam Head Exam: ATRAUMATIC, NORMAL INSPECTION, NORMOCEPHALIC - Eye Exam Eye Exam: EOMI, Normal appearance, PERRL Pupil Exam: NORMAL ACCOMODATION, PERRL - ENT Exam ENT Exam: Mucous Membranes Moist, Normal Exam - Neck Exam Neck Exam: Full ROM, Normal Inspection. absent: Lymphadenopathy - Respiratory Exam Respiratory Exam: Clear to Ausculation Bilateral, NORMAL BREATHING PATTERN. absent: Decreased Breath Sounds, Rales, Rhonchi, Wheezes, Respiratory Distress, Stridor - Cardiovascular Exam Cardiovascular Exam: REGULAR RHYTHM, +S1, +S2. absent: Murmur - GI/Abdominal Exam GI & Abdominal Exam: Soft, Normal Bowel Sounds. absent: Distended, Firm, Guarding, Rigid, Tenderness - Extremities Exam Extremities Exam: Full ROM, Normal Inspection, Pedal Edema Additional comments: 1+ pitting edema bilaterally - Back Exam Additional comments: 2 cm stage 2 right sacral ulcer 2 cm unstageable ulcer within gluteal folds, ulcer with erythemetous border - Neurological Exam Neurological Exam: Alert, Awake, Oriented x3 - Psychiatric Exam Psychiatric exam: Normal Affect, Normal Mood - Skin Skin Exam: Intact, Normal Color, Warm Additional comments: 2 cm stage 2 right sacral ulcer 2 cm unstageable ulcer within gluteal folds, ulcer with erythemetous border Assessment and Plan - Assessment and Plan (Free Text) Assessment: (1) Non-STEMI (non-ST elevated myocardial infarction) History of prior myocardial infarction Assessment & Plan: Cardiology (Dr. David) on board-->help appreciated-->signed off 03/24/17 Per cardiology note, bedside ECHO (03/22/17)--> Preserved LV function, no sig valve regurge, mild dilated RV with preserved RV function. Inferobasal and basal septum appear aneurysmal. Troponin 6.05, 7.41, 9.17 Clinically no angina, arrythmia or worsening systolic dysfunction sx's. 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 No plans for c.cath. Optimize medical Rx for CAD. Per cardiology, * ASA 81 mg PO daily * Crestor 20mg PO qHS * Metoprolol 50mg PO BID (Hold SBP<100 and HR<60) * Losartan 50mg PO daily (Hold SBP<100) * Ranexa 500mg PO bid * Continue Imdur 30mg PO daily (hold SBP<100) * Optimize pulmonary Rx for OPHELIA/Obesity * Encourage mobility Pulmonary (Dr. Quiñones) on board-->help appreciated Status: Acute (2) Morbidly obese Status: Chronic * Patient reports she has had unintentional weight loss over the past year * Blocking Machine Tender referral * Physical therapy eval and treat * Occupational eval and treat * OOB (3) SIRS (systemic inflammatory response syndrome) Assessment & Plan: 04/06: wbc 13.1, afebrile 04/05: wbc 15.6, afebrile 04/04: wbc trending down. afebrile. Dr Cedeño held vancomycin due to high trough level. 04/03: wbc 21, afebrile. elevated wbc could be 2/2 pneumonia or unstageable ulcer. all cultures are still negative to date. 04/02: wbc 20.2. Will hold vanco today and wait for repeat vanco trough tomorrow AM. discontinued lasix due to low BP 04/02: discontinued toradol, ordered percocet 5/325mg 1 tab q6 for pain 04/02: vanco trough elevated at 23.3. urine culture negative; blood culture negative to date; PICC tip culture negative 04/01: wbc 21.6; afebrile 03/31: wbc 24.7; afebrile 03/31: blood culture ordered, urine culture ordered, picc tip culture ordered 03/31: picc line pulled, midline catheter placed, pradhan replaced 03/31: discontinued cefepime 1gm iv q12. started vancomycin 1gm q12 iv started. vanco trough to be checked 04/01 21:30 03/31: started meropenem 1gm iv q8 03/31: CXR ordered today: "Mild pulmonary vascular congestive changes may have improved slightly however there are vague somewhat more confluent opacities seen in the lung bases left greater than right, that may represent some residual alveolar-type infiltrates related to pulmonary edema/ CHF. Cardiomegaly. 03/30: wbc 18.6 trending up from 17.5; afebrile * 03/29: started cefepime 1gm IV q12 * 03/29: discontinued Zosyn 4.5 IV Q 6hours (Active since 03/21/17) * 03/29: discontinued Vancomycin 1 gram IVQ 12hours (active since on 03/28/17) * 03/28: CXR: "Moderate venous congestion. Patchy left basilar airspace opacity. Enlarged ectactic aorta. Cardiomegaly" * 03/28: Urine culture no growth 03/28: blood culture no growth to date 03/26: MRSA culture -> MRSA not detected * 03/22: CXR: "New right PICC catheter terminates at level of cavoatrial junction. Mild congestive change" * 03/20: CXR: no acute findings * 03/20: CT Chest: "no ct evidence of acute pulmonary embolism, aortic aneurysm, or aortic dissection. [place] airspace disease in the posterio basal segment of the left lower lobe may represent subsegmental atelectasis however pneumonia cannot be excluded. Patient has moderate left hilar lymphadenopathy of uncertain etiology" * 03/20: Blood culture no growth after 4 days X2 * UA (2nd): hematuria-->treat as urinary tract infection-->repeat today * Urine culture (03/22/17): no growth * strep pneumoniae, legionella: negative, and mycoplasma IGM: negative * sacral wound: turn q 2hours, and wound care * Florastor 250mg PO bid Status: Acute (4) Pneumonia Assessment & Plan: 03/30: wbc 18.6 trending up from 17.5; afebrile 03/29: started cefepime 1gm IV q12 * 03/29: discontinued Zosyn 4.5 IV Q 6hours (Active since 03/21/17) * 03/29: discontinued Vancomycin 1 gram IVQ 12hours started on 03/28/17 * CXR 03/28/17-Moderate venous congestion. Patchy left basilar airspace opacity. Enlarged ectactic aorta. Cardiomegaly. * Florastor 250mg PO bid (5) HTN (hypertension) Assessment & Plan: * discontinued Metoprolol 50mg PO BID * Losartan 50mg PO daily (Hold SBP<100) * Ranexa 500mg PO bid * Continue Imdur 30mg PO daily Status: Chronic (6) OPHELIA (obstructive sleep apnea) Status: Chronic * BIPAP * Educated about consistency of wearing the mask at bedside (7) COPD (chronic obstructive pulmonary disease) Status: Chronic * Albuterol 3ml inhaled RQ4 * Continue Spiriva 18mcg inhaled q daily * BIPAP prn- Instructed patient to request Bipap every night * CXR- 03/25/17- Cardiomegaly and pulmonary vnenous congestion (Please see full report) (8) History of Spinal stenosis Status: Chronic * Klonopin 1mg PO Q12h * Gabapentin 300mg PO TID * pain management consult ordered 04/05 * oxycontin 20 mg q12h * percocet 5 mg q4h (9) Unstagable Sacral Ulcer in Gluteal Folds 04/04: ulcer looks less nectrotic today compared to yesterday 04/03: Dr Rogers and I inspected this ulcer today which seems less necrotic today compared to a few days ago. There is a border of erythema and the black eschar is less prominent. It seems the Santyl is working well. Will defer to surgery regarding debridement. 04/01: Santyl once a day topical applied to ulcer. Discussed with surgery, will re-evaluate on tuesday 04/03 and consider debridement at that point. 03/31: Dr Smith of surgery consulted. Dr Rogers spoke with Dr Smith who said sacral ulcer does not need debridement right now 03/31: Wound care nurse Tre Alcazar describes this as an unstageable ulcer Wound care Turn Q 2hours (10) Microscopic Hematuria * Multiple UAs with microscopic hematuria * Bladder/ Renal Ultrasound- 03/28/17- Multiple bilateral scattered renal caluli without evidence of gross hydronephrosis. 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 wound care. turn q2 hours. (15) Acute Kidney Injury 04/06: BUN: 16 Cr: 0.9 04/03: BUN 28 Cr 1.3. SHERWIN likely 2/2 lasix vs toradol use vs merepenem abx. Will hold lasix and the toradol has been discontinued. Will administer 500cc's of NS at 75cc/hr. (16) Depression 04/05: Lexapro 5 mg po daily started, Klonopin 1mg BID for anxiety as per psych 04/04: Dr Godwin, psychiatry consulted to evaluate patient for depression. morbid obesity has a high correlation with major depressive disorder. (17) Prophylactic measure Assessment & Plan: * Eliquis 5 mg po BID (for thrombosis of popliteal artery) * GI ppx: Pepcid 20mg PO BID * Wound care * TurnQ 2hours * Aspirin 81mg PO daily * PT/OT eval * OOB * vasoline to lips bid * glycerna protein shake 3x a day
[2017-04-06] MEDS: Vancomycin 1 gm/NS 200 ml 1 GM/200 ML BAG IVPB SCH (19:09)
--- NOTE | 2017-04-06 21:58 | CP.PCM.PN ---
Subjective - Date & Time of Evaluation Date of Evaluation: 04/06/17 Time of Evaluation: 03:15 - Subjective Subjective: Patient says she has pain in the area of the ulcer and has been trying to adjust position she feels better in,cough and lungs are better,picc line functioning Objective - Vital Signs/Intake and Output Vital Signs (last 24 hours): Temp Pulse Resp BP Pulse Ox 97.9 F 84 20 138/76 94 L 04/06/17 15:00 04/06/17 15:00 04/06/17 15:00 04/06/17 15:00 04/06/17 15:00 Intake and Output: 04/06/17 04/07/17 18:59 06:59 Intake Total 580 Output Total 300 Balance 280 - Medications Medications: Current Medications Albuterol Sulfate (Albuterol 0.083% Inhal Cee (2.5 Mg/3 Ml) Ud) 2.5 mg INH RQ6 PRN PRN Reason: Shortness of Breath Last Admin: 03/29/17 08:10 Dose: 2.5 mg Apixaban (Eliquis) 5 mg PO BID [facility] Last Admin: 04/06/17 18:55 Dose: 5 mg Aspirin (Ecotrin) 81 mg PO DAILY [facility] Last Admin: 04/06/17 10:39 Dose: 81 mg Clonazepam (Klonopin) 1 mg PO BID [facility] Last Admin: 04/06/17 18:31 Dose: 1 mg Collagenase (Santyl) 0 gm TOP DAILY [facility] Last Admin: 04/06/17 10:47 Dose: 1 applic Collagenase (Santyl) 0 gm TOP DAILY [facility] Last Admin: 04/06/17 10:48 Dose: 1 applic Docusate Sodium (Colace) 100 mg PO TID [facility] Last Admin: 04/06/17 18:29 Dose: 100 mg Emollient Ointment (Vaseline Oint) 5 gm TOP BID PRN PRN Reason: Dry skin Last Admin: 04/04/17 14:10 Dose: 5 gm Escitalopram Oxalate (Lexapro) 5 mg PO DAILY [facility] Last Admin: 04/06/17 10:39 Dose: 5 mg Famotidine (Pepcid) 20 mg PO BID [facility] Last Admin: 04/06/17 18:31 Dose: 20 mg Gabapentin (Neurontin) 300 mg PO TID [facility] Last Admin: 04/06/17 18:31 Dose: 300 mg Meropenem 1 gm/ Sodium (Chloride) 100 mls @ 100 mls/hr IVPB Q8 [facility] Last Admin: 04/06/17 21:37 Dose: 100 mls/hr Vancomycin/Sodium Chloride (Vancocin) 1 gm in 200 mls @ 167 mls/hr IVPB Q24H [facility] Stop: 04/09/17 17:16 Last Admin: 04/06/17 19:09 Dose: 167 mls/hr Fluconazole 100 mg/ (Miscellaneous) 50 mls @ 100 mls/hr IVPB DAILY [facility] Isosorbide Mononitrate (Imdur) 30 mg PO DAILY [facility] Last Admin: 04/06/17 10:47 Dose: 30 mg Losartan Potassium (Cozaar) 50 mg PO DAILY [facility] Last Admin: 04/06/17 10:39 Dose: 50 mg Morphine Sulfate (Morphine) 1 mg IVP Q6H PRN PRN Reason: Pain, severe (8-10) Last Admin: 04/06/17 07:00 Dose: 1 mg Nitroglycerin (Nitrostat Sl Tab) 0.4 mg SL Q5M PRN Nystatin (Nystop Topical Powder) 1 applic TOP BID [facility] Last Admin: 04/06/17 21:38 Dose: 1 applic Oxycodone HCl (Oxycontin Extended Release Tab) 20 mg PO Q12 [facility] Last Admin: 04/06/17 21:38 Dose: 20 mg Oxycodone/Acetaminophen (Percocet 5/325 Mg Tab) 1 tab PO Q4H PRN PRN Reason: Pain, moderate (4-7) Stop: 04/09/17 02:33 Last Admin: 04/06/17 18:31 Dose: 1 tab Promethazine HCl/Codeine (Phenergan/Codeine Oral Syrup) 5 ml PO Q4 PRN PRN Reason: Cough Last Admin: 03/29/17 16:25 Dose: 5 ml Ranolazine (Ranexa) 500 mg PO BID [facility] Last Admin: 04/06/17 19:01 Dose: 500 mg Rosuvastatin Calcium (Crestor) 20 mg PO HS [facility] Last Admin: 04/06/17 21:37 Dose: 20 mg Saccharomyces Boulardii (Florastor) 250 mg PO BID [facility] Last Admin: 04/06/17 18:30 Dose: 250 mg Tiotropium [place] (Spiriva) 18 mcg INH RQ24 [facility] Last Admin: 04/06/17 07:50 Dose: 18 mcg - Labs Labs: 04/06/17 07:10 04/06/17 07:10 PT 13.3 SECONDS (9.7-12.2) H 03/20/17 22:39 INR 1.2 03/20/17 22:39 APTT 68 SECONDS (21-34) H 03/23/17 06:51 - Constitutional Appears: No Acute Distress - Head Exam Head Exam: ATRAUMATIC, NORMOCEPHALIC - Eye Exam Eye Exam: Normal appearance Pupil Exam: NORMAL ACCOMODATION - ENT Exam ENT Exam: Mucous Membranes Moist - Neck Exam Neck Exam: Normal Inspection - Respiratory Exam Respiratory Exam: Decreased Breath Sounds. absent: Accessory Muscle Use, Chest Wall Tenderness, Clear to Ausculation Bilateral, Prolonged Expiratory Phase, Rales, Rhonchi, Wheezes, Respiratory Distress, Stridor, NORMAL BREATHING PATTERN - Cardiovascular Exam Cardiovascular Exam: REGULAR RHYTHM, RRR. absent: Bradycardia, Tachycardia, Clicks, Diastolic murmur, Gallop, Irregular Rhythm, JVD, Rubs, +S1, +S2, +S4, Murmur - GI/Abdominal Exam GI & Abdominal Exam: Soft, Normal Bowel Sounds. absent: Bruit, Distended, Firm , Guarding, Rigid, Tenderness, Diminished Bowel Sounds, Hernia, Hyperactive Bowel Sounds, Hypoactive Bowel Sounds, Organomegaly, Pulsatile Mass, Rebound, Mass - Extremities Exam Additional comments: normal lower extremity Assessment and Plan (1) Non-STEMI (non-ST elevated myocardial infarction) Status: Acute (2) Sacral wound Status: Acute (3) COPD (chronic obstructive pulmonary disease) Assessment & Plan: if pt remains stable will change diflucan 100mg po for 2 days and let pt go to rehab of antibiotics with local wound care and respiratory treatments and recommendations from the pulmonary Status: Chronic (4) Morbidly obese Status: Chronic (5) OPHELIA (obstructive sleep apnea) Status: Chronic (6) Leukocytosis Status: Acute
[2017-04-07] MEDS: Meropenem 1 GM in Sodium Chloride 0.9% 100 ML IVPB SCH ×2 (05:56→14:50)
[2017-04-07 06:54] LABS: BASO # 0.1 K/uL (0.0-0.2); BASO % 0.8 % (0.0-2.0); EOS # 0.8 K/uL (0.0-0.7); HEMOGLOBIN 10.1 g/dL (11.0-16.0); LYMPH # 2.6 K/uL (1.0-4.3); LYMPH % 19.8 % (20.0-40.0); MEAN CELL VOLUME 82.6 fL (81.0-99.0); MEAN CORPUSCULAR HEMOGLOBIN 25.2 pg (27.0-31.0); MEAN CORPUSCULAR HGB CONC 30.5 g/dL (33.0-37.0); MEAN PLATELET VOLUME 7.9 fL (7.2-11.7); MONO # 0.9 K/uL (0.0-0.8); NEUT # 8.7 K/uL (1.8-7.0); NEUT % 66.4 % (50.0-75.0); NRBC % 0.1 % (0.0-2.0); RBC 4.02 Mil/uL (3.80-5.20); RED CELL DISTRIBUTION WIDTH 16.4 % (11.5-14.5); WHITE BLOOD COUNT 13.1 K/uL (4.8-10.8)
[2017-04-07 07:23] LABS: ALBUMIN 2.6 g/dL (3.5-5.0)
[2017-04-07 07:25] LABS: AST/SGOT 27 U/L (14-36); GFR AFRICAN-AMERICAN > 60; GFR NON-AFRICAN AMERICAN > 60
[2017-04-07 07:26] LABS: ALB/GLOB RATIO 0.7 (1.0-2.1); ALT/SGPT 32 U/L (9-52); BLOOD UREA NITROGEN 15 mg/dL (7-17); CALCIUM 8.8 mg/dl (8.6-10.4)
[2017-04-07 07:27] LABS: MAGNESIUM 1.9 mg/dL (1.6-2.3)
[2017-04-07] MEDS ORDERED: Fluconazole IV 200mg/100 ml NS 100 MG in Premixed IV 1 EA IVPB SCH (10:00)
[2017-04-07] MEDS ORDERED: Fluconazole IV 100mg/50 ml NS 50 ML IVPB SCH (10:00)
[2017-04-07] MEDS: Saccharomyces Boulardi 250 mg Cap PO SCH (10:12)
[2017-04-07] MEDS: oxyCODONE 20 mg ER Tab (oxyCONTIN) PO SCH (10:12)
[2017-04-07] MEDS: Collagenase 250 Units/gm Ointment(30 gm) TOP SCH (10:13)
[2017-04-07] MEDS: Ranolazine 500 mg Extended Release Tablets PO SCH (10:13)
[2017-04-07] MEDS: Tiotropium 18 mcg Cap For Inhalation INH SCH (14:55)
[2017-04-07 16:09] VITALS: BP 117/71; PULSE 89; TEMP 97.6; O2SAT 96
--- NOTE | 2017-04-07 17:53 | CP.PCM.DIS ---
<BasilukVeena Waldo - Last Filed: 04/07/17 17:45> Provider - Provider Date of Admission: 03/20/17 18:04 Attending physician: Tolu Rogers MD Primary care physician: PMD: Dr. Dorantes Consults: Pulmonology: Dr. Quiñones Cardiology: Dr. David ID: Dr. Cedeño Time Spent in preparation of Discharge (in minutes): 45 Diagnosis - Discharge Diagnosis (1) Non-STEMI (non-ST elevated myocardial infarction) Status: Resolved (2) SIRS (systemic inflammatory response syndrome) Status: Resolved (3) Sacral wound Status: Acute (4) COPD (chronic obstructive pulmonary disease) Status: Chronic (5) OPHELIA (obstructive sleep apnea) Status: Chronic Hospital Course - Lab Results Lab Results: Micro Results 03/31/17 09:39 Blood-Venous Blood Culture - Final NO GROWTH AFTER 5 DAYS 03/31/17 09:39 Blood-Venous Gram Stain - Final 03/31/17 09:39 Blood-Venous Blood Culture - Final NO GROWTH AFTER 5 DAYS 03/31/17 09:39 Blood-Venous Gram Stain - Final TEST NOT PERFORMED 03/31/17 10:17 Arm Right Catheter Tip Culture - Final No growth. 03/28/17 06:00 Blood Blood Culture - Final NO GROWTH AFTER 5 DAYS 03/28/17 06:00 Blood Gram Stain - Final TEST NOT PERFORMED 03/28/17 06:20 Blood Blood Culture - Final NO GROWTH AFTER 5 DAYS 03/28/17 06:20 Blood Gram Stain - Final TEST NOT PERFORMED 03/31/17 17:00 Urine,Catheterized Urine Culture - Final No Growth (<1,000 CFU/ML) 03/28/17 Unknown Urine,[place] Urine Culture - Final No Growth (<1,000 CFU/ML) 03/26/17 15:00 Naris MRSA Culture - Final MRSA NOT DETECTED 03/20/17 22:00 Blood Blood Culture - Final NO GROWTH AFTER 5 DAYS 03/20/17 22:00 Blood Gram Stain - Final 03/20/17 21:00 Blood Blood Culture - Final NO GROWTH AFTER 5 DAYS 03/20/17 21:00 Blood Gram Stain - Final TEST NOT PERFORMED 03/22/17 Unknown Urine,Catheterized Urine Culture - Final No Growth (<1,000 CFU/ML) 03/21/17 04:46 Naris MRSA Culture (Admit) - Final MRSA NOT DETECTED Most Recent Lab Values WBC 13.1 K/uL (4.8-10.8) H 04/07/17 06:39 RBC 4.02 Mil/uL (3.80-5.20) 04/07/17 06:39 Hgb 10.1 g/dL (11.0-16.0) L 04/07/17 06:39 Hct 33.2 % (34.0-47.0) L 04/07/17 06:39 MCV 82.6 fL (81.0-99.0) 04/07/17 06:39 MCH 25.2 pg (27.0-31.0) L 04/07/17 06:39 MCHC 30.5 g/dL (33.0-37.0) L 04/07/17 06:39 RDW 16.4 % (11.5-14.5) H 04/07/17 06:39 Plt Count 367 K/uL (130-400) 04/07/17 06:39 MPV 7.9 fL (7.2-11.7) 04/07/17 06:39 Neut % (Auto) 66.4 % (50.0-75.0) 04/07/17 06:39 Lymph % (Auto) 19.8 % (20.0-40.0) L 04/07/17 06:39 [place] % (Auto) 7.0 % (0.0-10.0) 04/07/17 06:39 Eos % (Auto) 6.0 % (0.0-4.0) H 04/07/17 06:39 Baso % (Auto) 0.8 % (0.0-2.0) 04/07/17 06:39 Neut # 8.7 K/uL (1.8-7.0) H 04/07/17 06:39 Lymph # 2.6 K/uL (1.0-4.3) 04/07/17 06:39 [place] # 0.9 K/uL (0.0-0.8) H 04/07/17 06:39 Eos # 0.8 K/uL (0.0-0.7) H 04/07/17 06:39 Baso # 0.1 K/uL (0.0-0.2) 04/07/17 06:39 Neutrophils % (Manual) 81 % (50-75) H 04/02/17 08:34 Band Neutrophils % 3 % (0-2) H 03/31/17 06:08 Lymphocytes % (Manual) 10 % (20-40) L 04/02/17 08:34 Monocytes % (Manual) 5 % (0-10) 04/02/17 08:34 Eosinophils % (Manual) 4 % (0-4) 04/02/17 08:34 Platelet Estimate Normal (NORMAL) 04/02/17 08:34 Large Platelets Present 04/02/17 08:34 Hypochromasia (manual) Slight 04/02/17 08:34 Poikilocytosis (manual Slight 04/02/17 08:34 Anisocytosis (manual) Slight 04/02/17 08:34 Target Cells Slight 04/02/17 08:34 PT 13.3 SECONDS (9.7-12.2) H 03/20/17 22:39 INR 1.2 03/20/17 22:39 APTT 68 SECONDS (21-34) H 03/23/17 06:51 D-Dimer, Quantitative 630 ng/mlDDU (0-243) H 03/20/17 21:32 Puncture Site Rb 03/23/17 08:41 pCO2 49 mm/Hg (35-45) H 03/23/17 08:41 pO2 67 mm/Hg (80-100) L 03/23/17 08:41 HCO3 30.4 mmol/L (21-28) H 03/23/17 08:41 ABG pH 7.43 (7.35-7.45) 03/23/17 08:41 ABG Total CO2 34.0 mmol/L (22-28) H 03/23/17 08:41 ABG O2 Saturation 95.0 % (95-98) 03/23/17 08:41 ABG Base Excess 7.1 mmol/L (-2.0-3.0) H 03/23/17 08:41 ABG Hemoglobin 11.5 g/dL (11.7-17.4) L 03/23/17 08:41 ABG Carboxyhemoglobin 1.4 % (0.5-1.5) 03/23/17 08:41 POC ABG HHb (Measured) 4.9 % (0.0-5.0) 03/23/17 08:41 ABG Methemoglobin 1.1 % (0.0-3.0) 03/23/17 08:41 Ming Test Na 03/23/17 08:41 A-a O2 Difference 86.0 mm/Hg 03/23/17 08:41 Respiratory Index 1.3 03/23/17 08:41 Hgb O2 Saturation 92.7 % (95.0-98.0) L 03/23/17 08:41 Liter Flow 3.0 03/23/17 08:41 FiO2 30.0 % 03/23/17 08:41 Sodium 139 mmol/L (132-148) 04/07/17 06:39 Potassium 4.1 mmol/L (3.6-5.2) 04/07/17 06:39 Chloride 96 mmol/L (98-107) L 04/07/17 06:39 Carbon Dioxide 34 mmol/L (22-30) H 04/07/17 06:39 Anion Gap 13 (10-20) 04/07/17 06:39 BUN 15 mg/dL (7-17) 04/07/17 06:39 Creatinine 0.8 MG/DL (0.7-1.2) 04/07/17 06:39 Est GFR ( Amer) > 60 04/07/17 06:39 Est GFR (Non-Af Amer) > 60 04/07/17 06:39 Random Glucose 85 mg/dL (65-105) 04/07/17 06:39 Hemoglobin A1c 6.1 % (4.2-6.5) 03/21/17 04:40 Lactic Acid 0.7 mmol/L (0.7-2.1) 03/20/17 22:39 Calcium 8.8 mg/dl (8.6-10.4) 04/07/17 06:39 Phosphorus 3.9 mg/dL (2.5-4.5) 04/07/17 06:39 Magnesium 1.9 mg/dL (1.6-2.3) 04/07/17 06:39 Total Bilirubin 0.5 mg/dL (0.2-1.3) 04/07/17 06:39 AST 27 U/L (14-36) 04/07/17 06:39 ALT 32 U/L (9-52) 04/07/17 06:39 Alkaline Phosphatase 72 U/L (38-126) 04/07/17 06:39 Total Creatine Kinase 53 U/L (30-135) 03/25/17 06:34 CK-MB (Mass) 0.68 ng/mL (0.0-3.38) 03/25/17 06:34 Troponin I 15.6000 ng/mL (0.00-0.120) H* 03/22/17 10:33 Troponin I, Quant 9.1700 ng/mL (0.00-0.120) H* 03/25/17 06:34 Total Protein 6.3 g/dL (6.3-8.3) 04/07/17 06:39 Albumin 2.6 g/dL (3.5-5.0) L 04/07/17 06:39 Globulin 3.6 gm/dL (2.2-3.9) 04/07/17 06:39 Albumin/Globulin Ratio 0.7 (1.0-2.1) L 04/07/17 06:39 Triglycerides 126 mg/dL (0-149) D 03/21/17 04:40 Cholesterol 153 mg/dL (0-199) 03/21/17 04:40 LDL Cholesterol Direct 98 mg/dL (0-129) 03/21/17 04:40 HDL Cholesterol 30 mg/dL (30-70) 03/21/17 04:40 Procalcitonin 0.29 NG/ML (0.19-0.49) 03/23/17 06:51 Urine Color Yellow (YELLOW) 03/25/17 15:11 Urine Clarity Hazy (Clear) 03/25/17 15:11 Urine pH 6.0 (5.0-8.0) 03/25/17 15:11 Ur Specific [place] 1.014 (1.003-1.030) 03/25/17 15:11 Urine Protein 1+ mg/dL (NEGATIVE) H 03/25/17 15:11 Urine Glucose (UA) Normal mg/dL (Normal) 03/25/17 15:11 Urine Ketones Negative mg/dL (NEGATIVE) 03/25/17 15:11 Urine Blood 3+ (NEGATIVE) H 03/25/17 15:11 Urine Nitrate Negative (NEGATIVE) 03/25/17 15:11 Urine Bilirubin Negative (NEGATIVE) 03/25/17 15:11 Urine Urobilinogen Normal mg/dL (0.2-1.0) 03/25/17 15:11 Ur Leukocyte Esterase Neg Mendoza/uL (Negative) 03/25/17 15:11 Urine WBC (Auto) 5 /hpf (0-5) 03/25/17 15:11 Urine RBC (Auto) 709 /hpf (0-3) H 03/25/17 15:11 Urine WBC Clumps (Auto) Few /hpf (NONE) H 03/20/17 22:04 Ur Squamous Epith Cells 1 /hpf (0-5) 03/25/17 15:11 Calcium Oxalate Crystal Rare /hpf (<OCC) 03/25/17 15:11 Urine Bacteria Rare (<OCC) 03/22/17 17:00 Hyaline Casts 3-5 /lpf (0-2) H 03/25/17 15:11 Vancomycin Trough 23.3 ug/mL (5.0-10.0) H 04/02/17 08:34 Random Vancomycin 12.55 ug/mL 04/03/17 07:28 C. difficile Ag & Toxin Negative (NEGATIVE) 03/22/17 15:05 Ur L.pneumophila Ag Negative (NEGATIVE) 03/22/17 16:58 Mycoplasma pneumon IgM Negative (NEGATIVE) 03/22/17 16:58 Ur Strep pneumoniae Ag Not detected 03/22/17 08:15 - Hospital Course Hospital Course: "CC: weakness and shortness of breath HPI: Patient is a 61 yo female who presents to the ED with her niece due to weakness and SOB. Patient reports that she does not feel well. Patient reports s /p 3 falls within 4 weeks and called EMS but refused to go to the hospital. Patient reports going to [facility] s/p fall on 03/04/17 but was later discharged on with diagnosis of possible pneumonia. Patient's niece states that patient has been "acting funny" and her speech does not make sense. Patient admits to fever, headache, weakness, palpitation, SOB, dysuria, urinary frequency, back pain, diarrhea, and decreased PO intake." Patient admitted on 03/20/17 to ICU. Patient treated for NSTEMI. [facility] Dr. David was consulted and signed off on 03/24/17. Echo [03/21] found type 1 diastolic dysfunction with normal LVEF 65% and mildly dilated RV and mildly reduced RV function. Bedside echo [03/20] as per cardiology note found preserved LV function, no significant valve regurgitation, mild dilated RV with preserved RV function. Inferobasal and basal septum appear aneurysmal. Troponins were 6.05 , 7.41, 9.17. Clinically there is no worsening of the dysfunction's symptoms. 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 Course will include optimizing medication for CAD. CXR [03/20] showed no acute findings. Chest CT with contrast [03/20] found no CT evidence for acute pulmonary embolism, aortic aneurysm, or aortic dissection. Confluent airspace disease in posterior basal segment of the left lower lobe may represent subsegmental atelectasis however pneumonia cannot be excluded. Also noted is moderate left hilar lymphadenopathy of uncertain etiology and could be reactive , infectious or inflammatory in etiology. Follow up after medical management is recommended to ensure complete resolution. ECG [03/21] found normal sinus rhythm, ST&T wave abnormality to consider lateral ischemia, and cannot rule out inferior infarct of undetermined age. Patient treated for Pneumonia. Pulmonolgist Dr. Quiñones was consulted.CXR [03/25] found cardiomegaly and pulmonary venous congestion is suggested and similar appearing. No interval pleural effusion or consolidations. Left hilar/central pathology cannot be excluded due to slight asymmetrical prominence of the left hilum. CXR [03/28] showed the right PICC line with tip extending to the cavoatrial junction, moderate venous congestion, patchy left basilar airspace opacity, enlarged ectatic aorta, and cardiomegaly. CXR [03/31] found mild pulmonary vascular congestive changes that may have improved slightly however there are vague somewhat more confluent opacities seen in the lung bases left greater than right, that may represent some residual alveolar type infiltrates related to pulmonary edema/CHF. Patient was monitored and treated for SIRS. ID Dr. Cedeño was consulted. Chest CT with contrast [03/20] found no CT evidence for acute pulmonary embolism, aortic aneurysm, or aortic dissection. Confluent airspace disease in posterior basal segment of the left lower lobe may represent subsegmental atelectasis however pneumonia cannot be excluded. Also noted is moderate left hilar lymphadenopathy of uncertain etiology and could be reactive, infectious or inflammatory in etiology. CXR [03/28] showed moderate venous congestion, patchy left basilar airspace opacity, enlarged ectatic aorta, and cardiomegaly. Urine and blood cultures were monitored. Sacral wound monitored. Patient treated and monitored for microscopic hematuria and SHERWIN. Bladder Ultrasound [03/28] found increased echogenicity of the bilateral renal cortices suggestive for medical renal disease and prominent multiple bilateral scattered renal calculi without evidence of hydronephrosis, degenerative changes in spine and shoulders. Hematuria found on several urinalysis. SHERWIN was monitored with BUN /Cr. Patient treated for deep vein thrombosis?. Venous Duplex Scan of LE bilaterally [03/29] found acute thrombosis of the left popliteal vein with mild reduction of the venous return. There was no evidence of deep or superficial vein thrombosis and there was normal valve function of the right lower extremity. Venous Duplex Scan of UE bilaterally found no evidence of vein thrombosis of upper extremities , normal valve function, and excellent venous flow. Treated with eliquis. Unstagable ulcer in gluteal folds and stage 2 ulcer on right medial sacral region were monitored and treated. Surgery consulted, , who decided to for no surgical intervention. Medihoney, optifoam to sacrum, air mattress, turning patient was included in management. Santyl was used and ulcers are healing. Patient monitored and treated for chronic conditions including morbid obesity, HTN, OPHELIA, COPD, spinal stenosis, depression. Dr. Godwin, psychiatry consulted. Patient's headaches investigated via CT Head without contrast [04/06] which found no acute intracranial pathology. Medications administered include eliquiz, aspirin, klonopin, santyl, colace, vaseline ointment, lexapro, pepcid, diflucan, neurontin, imdur, cozaar, meropenem, morphine, nitroglycerin, nystatin, oxycodone XR, percocet, promethazine, ranolazine, crestor, florastor, spiriva. Prophylactic measures taken. Patient to go to subacute rehab where she will continue IV antibiotics. This is a summary of the patient's hospital stay. Please see chart for details. Discharge Exam - Head Exam Head Exam: ATRAUMATIC, NORMOCEPHALIC - Eye Exam Eye Exam: EOMI, Normal appearance, PERRL - ENT Exam ENT Exam: Mucous Membranes Moist - Neck Exam Neck exam: Full Rom, Normal Inspection - Respiratory Exam Respiratory Exam: Decreased Breath Sounds, Clear to PA & Lateral, NORMAL BREATHING PATTERN. absent: Rales, Rhonchi, Wheezes, Respiratory Distress, Stridor - Cardiovascular Exam Cardiovascular Exam: REGULAR RHYTHM, RRR. absent: Gallop, Rubs, Systolic Murmur - GI/Abdominal Exam GI & Abdominal Exam: Normal Bowel Sounds. absent: Distended, Firm, Guarding, Tenderness - Extremities Exam Extremities exam: full ROM, pedal edema - Back Exam Additional comments: 2 cm stage 2 right sacral ulcer healing well 2 cm unstageable ulcer within gluteal folds, ulcer with erythemetous border healing well - Neurological Exam Neurological exam: Alert, Oriented x3 - Psychiatric Exam Psychiatric exam: Normal Affect, Normal Mood - Skin Skin Exam: Normal Color, Warm Additional comments: 2 cm stage 2 right sacral ulcer healing well 2 cm unstageable ulcer within gluteal folds, ulcer with erythemetous border healing well Discharge Plan - Discharge Medications Prescriptions: RX: Apixaban [Eliquis] 5 mg PO BID #60 tab RX: Aspirin [Ecotrin] 81 mg PO DAILY #30 RX: Collagenase [Santyl] 1 gm TOP DAILY #1 Fluconazole [Diflucan] 100 mg PO DAILY #2 tab RX: Isosorbide Mononitrate [Imdur] 30 mg PO DAILY #30 tab RX: Losartan [Cozaar] 50 mg PO DAILY #30 tab RX: Meropenem [Merrem IV] 1 gm IVPB Q8 3 Days RX: oxyCODONE [oxyCONTIN Extended Release Tab] 20 mg PO Q12 #10 RX: Ranolazine [Ranexa] 500 mg PO BID #60 ter RX: Rosuvastatin Calcium [Crestor] 20 mg PO HS #60 tab RX: Saccharomyces Boulardi [Florastor] 250 mg PO BID #12 cap RX: Tiotropium [Spiriva] 18 mcg INH RQ24 #30 cap - Follow Up Plan Condition: GOOD Disposition: Trans to Other Acute Care Hosp Instructions: Myocardial Infarction (DC), Low Fat Diet (DC), Heart Healthy Diet (DC), Sepsis (GEN), Pneumonia (DC) Referrals: Howard Quiñones MD [Staff Provider] - Johana Dorantes MD [Staff Provider] - <Mita Pritchett V - Last Filed: 04/07/17 21:33> Provider - Provider Date of Admission: 03/20/17 18:04 Attending physician: Tolu Rogers MD Diagnosis - Discharge Diagnosis (1) Non-STEMI (non-ST elevated myocardial infarction) Status: Resolved (2) Morbidly obese Status: Chronic (3) SIRS (systemic inflammatory response syndrome) Status: Resolved (4) HTN (hypertension) Status: Chronic (5) OPHELIA (obstructive sleep apnea) Status: Chronic (6) COPD (chronic obstructive pulmonary disease) Status: Chronic (7) Spinal stenosis Status: Chronic (8) Sacral wound Status: Acute (9) Prophylactic measure Status: Acute Hospital Course - Lab Results Lab Results: Micro Results 03/31/17 09:39 Blood-Venous Blood Culture - Final NO GROWTH AFTER 5 DAYS 03/31/17 09:39 Blood-Venous Gram Stain - Final 03/31/17 09:39 Blood-Venous Blood Culture - Final NO GROWTH AFTER 5 DAYS 03/31/17 09:39 Blood-Venous Gram Stain - Final TEST NOT PERFORMED 03/31/17 10:17 Arm Right Catheter Tip Culture - Final No growth. 03/28/17 06:00 Blood Blood Culture - Final NO GROWTH AFTER 5 DAYS 03/28/17 06:00 Blood Gram Stain - Final TEST NOT PERFORMED 03/28/17 06:20 Blood Blood Culture - Final NO GROWTH AFTER 5 DAYS 03/28/17 06:20 Blood Gram Stain - Final TEST NOT PERFORMED 03/31/17 17:00 Urine,Catheterized Urine Culture - Final No Growth (<1,000 CFU/ML) 03/28/17 Unknown Urine,[place] Urine Culture - Final No Growth (<1,000 CFU/ML) 03/26/17 15:00 Naris MRSA Culture - Final MRSA NOT DETECTED 03/20/17 22:00 Blood Blood Culture - Final NO GROWTH AFTER 5 DAYS 03/20/17 22:00 Blood Gram Stain - Final 03/20/17 21:00 Blood Blood Culture - Final NO GROWTH AFTER 5 DAYS 03/20/17 21:00 Blood Gram Stain - Final TEST NOT PERFORMED 03/22/17 Unknown Urine,Catheterized Urine Culture - Final No Growth (<1,000 CFU/ML) 03/21/17 04:46 Naris MRSA Culture (Admit) - Final MRSA NOT DETECTED Most Recent Lab Values WBC 13.1 K/uL (4.8-10.8) H 04/07/17 06:39 RBC 4.02 Mil/uL (3.80-5.20) 04/07/17 06:39 Hgb 10.1 g/dL (11.0-16.0) L 04/07/17 06:39 Hct 33.2 % (34.0-47.0) L 04/07/17 06:39 MCV 82.6 fL (81.0-99.0) 04/07/17 06:39 MCH 25.2 pg (27.0-31.0) L 04/07/17 06:39 MCHC 30.5 g/dL (33.0-37.0) L 04/07/17 06:39 RDW 16.4 % (11.5-14.5) H 04/07/17 06:39 Plt Count 367 K/uL (130-400) 04/07/17 06:39 MPV 7.9 fL (7.2-11.7) 04/07/17 06:39 Neut % (Auto) 66.4 % (50.0-75.0) 04/07/17 06:39 Lymph % (Auto) 19.8 % (20.0-40.0) L 04/07/17 06:39 [place] % (Auto) 7.0 % (0.0-10.0) 04/07/17 06:39 Eos % (Auto) 6.0 % (0.0-4.0) H 04/07/17 06:39 Baso % (Auto) 0.8 % (0.0-2.0) 04/07/17 06:39 Neut # 8.7 K/uL (1.8-7.0) H 04/07/17 06:39 Lymph # 2.6 K/uL (1.0-4.3) 04/07/17 06:39 [place] # 0.9 K/uL (0.0-0.8) H 04/07/17 06:39 Eos # 0.8 K/uL (0.0-0.7) H 04/07/17 06:39 Baso # 0.1 K/uL (0.0-0.2) 04/07/17 06:39 Neutrophils % (Manual) 81 % (50-75) H 04/02/17 08:34 Band Neutrophils % 3 % (0-2) H 03/31/17 06:08 Lymphocytes % (Manual) 10 % (20-40) L 04/02/17 08:34 Monocytes % (Manual) 5 % (0-10) 04/02/17 08:34 Eosinophils % (Manual) 4 % (0-4) 04/02/17 08:34 Platelet Estimate Normal (NORMAL) 04/02/17 08:34 Large Platelets Present 04/02/17 08:34 Hypochromasia (manual) Slight 04/02/17 08:34 Poikilocytosis (manual Slight 04/02/17 08:34 Anisocytosis (manual) Slight 04/02/17 08:34 Target Cells Slight 04/02/17 08:34 PT 13.3 SECONDS (9.7-12.2) H 03/20/17 22:39 INR 1.2 03/20/17 22:39 APTT 68 SECONDS (21-34) H 03/23/17 06:51 D-Dimer, Quantitative 630 ng/mlDDU (0-243) H 03/20/17 21:32 Puncture Site Rb 03/23/17 08:41 pCO2 49 mm/Hg (35-45) H 03/23/17 08:41 pO2 67 mm/Hg (80-100) L 03/23/17 08:41 HCO3 30.4 mmol/L (21-28) H 03/23/17 08:41 ABG pH 7.43 (7.35-7.45) 03/23/17 08:41 ABG Total CO2 34.0 mmol/L (22-28) H 03/23/17 08:41 ABG O2 Saturation 95.0 % (95-98) 03/23/17 08:41 ABG Base Excess 7.1 mmol/L (-2.0-3.0) H 03/23/17 08:41 ABG Hemoglobin 11.5 g/dL (11.7-17.4) L 03/23/17 08:41 ABG Carboxyhemoglobin 1.4 % (0.5-1.5) 03/23/17 08:41 POC ABG HHb (Measured) 4.9 % (0.0-5.0) 03/23/17 08:41 ABG Methemoglobin 1.1 % (0.0-3.0) 03/23/17 08:41 Ming Test Na 03/23/17 08:41 A-a O2 Difference 86.0 mm/Hg 03/23/17 08:41 Respiratory Index 1.3 03/23/17 08:41 Hgb O2 Saturation 92.7 % (95.0-98.0) L 03/23/17 08:41 Liter Flow 3.0 03/23/17 08:41 FiO2 30.0 % 03/23/17 08:41 Sodium 139 mmol/L (132-148) 04/07/17 06:39 Potassium 4.1 mmol/L (3.6-5.2) 04/07/17 06:39 Chloride 96 mmol/L (98-107) L 04/07/17 06:39 Carbon Dioxide 34 mmol/L (22-30) H 04/07/17 06:39 Anion Gap 13 (10-20) 04/07/17 06:39 BUN 15 mg/dL (7-17) 04/07/17 06:39 Creatinine 0.8 MG/DL (0.7-1.2) 04/07/17 06:39 Est GFR ( Amer) > 60 04/07/17 06:39 Est GFR (Non-Af Amer) > 60 04/07/17 06:39 Random Glucose 85 mg/dL (65-105) 04/07/17 06:39 Hemoglobin A1c 6.1 % (4.2-6.5) 03/21/17 04:40 Lactic Acid 0.7 mmol/L (0.7-2.1) 03/20/17 22:39 Calcium 8.8 mg/dl (8.6-10.4) 04/07/17 06:39 Phosphorus 3.9 mg/dL (2.5-4.5) 04/07/17 06:39 Magnesium 1.9 mg/dL (1.6-2.3) 04/07/17 06:39 Total Bilirubin 0.5 mg/dL (0.2-1.3) 04/07/17 06:39 AST 27 U/L (14-36) 04/07/17 06:39 ALT 32 U/L (9-52) 04/07/17 06:39 Alkaline Phosphatase 72 U/L (38-126) 04/07/17 06:39 Total Creatine Kinase 53 U/L (30-135) 03/25/17 06:34 CK-MB (Mass) 0.68 ng/mL (0.0-3.38) 03/25/17 06:34 Troponin I 15.6000 ng/mL (0.00-0.120) H* 03/22/17 10:33 Troponin I, Quant 9.1700 ng/mL (0.00-0.120) H* 03/25/17 06:34 Total Protein 6.3 g/dL (6.3-8.3) 04/07/17 06:39 Albumin 2.6 g/dL (3.5-5.0) L 04/07/17 06:39 Globulin 3.6 gm/dL (2.2-3.9) 04/07/17 06:39 Albumin/Globulin Ratio 0.7 (1.0-2.1) L 04/07/17 06:39 Triglycerides 126 mg/dL (0-149) D 03/21/17 04:40 Cholesterol 153 mg/dL (0-199) 03/21/17 04:40 LDL Cholesterol Direct 98 mg/dL (0-129) 03/21/17 04:40 HDL Cholesterol 30 mg/dL (30-70) 03/21/17 04:40 Procalcitonin 0.29 NG/ML (0.19-0.49) 03/23/17 06:51 Urine Color Yellow (YELLOW) 03/25/17 15:11 Urine Clarity Hazy (Clear) 03/25/17 15:11 Urine pH 6.0 (5.0-8.0) 03/25/17 15:11 Ur Specific [place] 1.014 (1.003-1.030) 03/25/17 15:11 Urine Protein 1+ mg/dL (NEGATIVE) H 03/25/17 15:11 Urine Glucose (UA) Normal mg/dL (Normal) 03/25/17 15:11 Urine Ketones Negative mg/dL (NEGATIVE) 03/25/17 15:11 Urine Blood 3+ (NEGATIVE) H 03/25/17 15:11 Urine Nitrate Negative (NEGATIVE) 03/25/17 15:11 Urine Bilirubin Negative (NEGATIVE) 03/25/17 15:11 Urine Urobilinogen Normal mg/dL (0.2-1.0) 03/25/17 15:11 Ur Leukocyte Esterase Neg Mendoza/uL (Negative) 03/25/17 15:11 Urine WBC (Auto) 5 /hpf (0-5) 03/25/17 15:11 Urine RBC (Auto) 709 /hpf (0-3) H 03/25/17 15:11 Urine WBC Clumps (Auto) Few /hpf (NONE) H 03/20/17 22:04 Ur Squamous Epith Cells 1 /hpf (0-5) 03/25/17 15:11 Calcium Oxalate Crystal Rare /hpf (<OCC) 03/25/17 15:11 Urine Bacteria Rare (<OCC) 03/22/17 17:00 Hyaline Casts 3-5 /lpf (0-2) H 03/25/17 15:11 Vancomycin Trough 23.3 ug/mL (5.0-10.0) H 04/02/17 08:34 Random Vancomycin 12.55 ug/mL 04/03/17 07:28 C. difficile Ag & Toxin Negative (NEGATIVE) 03/22/17 15:05 Ur L.pneumophila Ag Negative (NEGATIVE) 03/22/17 16:58 Mycoplasma pneumon IgM Negative (NEGATIVE) 03/22/17 16:58 Ur Strep pneumoniae Ag Not detected 03/22/17 08:15 Attending/Attestation - Attestation I have personally seen and examined this patient.: Yes I have fully participated in the care of the patient.: Yes I have reviewed all pertinent clinical information, including history, physical exam and plan: Yes Notes (Text): Patient seen, examined, and case discussed with day-time resident. Patient seen this morning. Patient admits she does not wear her Bipap at night. Patient counselled at length in regards to not wearing her BIPAP at night for her suspected sleep apnea including but not limited to risk for stroke and heart attack. Patient's white count remains stable at 13.1. Viewed patient's sacral ulcer which is healing quite nicely. No noted ooze nor pus. Discussed with infectious disease, recommended for additional 3 days of Meropenem IV and 2 more days of Diflucan to cover for yeast. Patient's intrigenous folds are now resolved any type of fungal infection discontinued nystatin power. Discussed with case management following my conversation with infectious disease , patient has bed available at subacute rehab with bariatric bed; arrangements made in regards to Bipap. Patient to continue current medications at the rehab. Note: on Review of [facility], patient has filled Clonopin script on 04/01/17 but has been in the hospital entire time; unclear how filled; and patient given lower dose of Klonopin when psychiatry consulted on the patient during admission. Patient has been warned to not liana her Klonopin and that pain medications and benzo medications can impair her breathing and cause her respiratory depression. Patient has prior Oxycodone script filled on 03/12/17 (14 pills dispensed) prior to her admission. Discharge order and discharge instructions discussed with the patient. New medications upon discharge: * ASA 81 mg PO daily * Plavix 75mg PO daily * Crestor 20mg PO qHS * Metoprolol 50mg PO BID (Hold SBP<100 and HR<60) * Losartan 50mg PO daily (Hold SBP<100) * Lasix 40mg PO daily (Hold SBP<100) * Ranexa 550mg PO bid * Lower dose of Klonopin 1mg PO Q 12hours (No script provided; to be continued at the rehab) * Lexapro 5mg PO daily * Eliquis 5mg PO BID for +DVT (will need to f/u with PMD for renewal) * Diflucan 100mg PO daily (2 pills/no refills) * Oxycodone ER 20mg PO Q 12hours (No script provided; to be continued at rehab; f/u with PMD outpatient) * Oxycodone 1 tab PO Q 4hour PRN moderate pain (No script provided; to be continued at rehab; f/u with PMD outpatient) * Florastor 250mg PO bid for 3 days * Spiriva 18mcg inhaled daily * Meropenem 1gram IV Q 8 hours for additional 3 days This is a summary of patient's hospitalization. please see EMR for further details. Assessment/Plan (1) Non-STEMI (non-ST elevated myocardial infarction) History of prior myocardial infarction Assessment & Plan: * Cardiology (Dr. David) on board-->help appreciated-->signed off 03/24/17 * Per cardiology note, bedside ECHO (03/22/17)--> Preserved LV function, no sig valve regurge, mild dilated RV with preserved RV function. Inferobasal and basal septum appear aneurysmal. Clinically no angina, arrythmia or worsening systolic dysfunction sx's. 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 No plans for c.cath. [facility] medical Rx for CAD. * Per cardiology, * ASA 81 mg PO daily * Plavix 75mg PO daily * Crestor 20mg PO qHS * Metoprolol 50mg PO BID (Hold SBP<100 and HR<60) * Losartan 50mg PO daily (Hold SBP<100) * Lasix 40mg PO daily (Hold SBP<100) * Ranexa 550mg PO bid * On heparin dvt ppx * Start Imdur 30mg PO daily (hold SBP<100 * [facility]imize pulmonary Rx for OPHELIA/Obesity * Encourage mobility * Pulmonary (Dr. Quiñones) on board-->help appreciated for COPD/OPHELIA-->f/u 2 weeks post hospitalization Status: Acute (2) Morbidly obese Assessment & Plan: * Patient reports she has had unintentional weight loss over the past year * [employer] referral: eating 75% meals * Physical therapy eval (04/07): declined PT today; recommended for MELONY in prior notes * Occupational eval (03/31): subacute rehab * OOB Status: Chronic (3) SIRS (systemic inflammatory response syndrome) Assessment & Plan: Contributing Pneumonia and possible urinary tract infection Pneumonia * White count downtrending * Chest xray (03/20/17): no acute findings * CT Chest (03/20/17): no ct evidence of acute pulmonary embolism, aortic aneurysm , or aortic dissection. [place] airspace disease in the posterio basal segment of the left lower lobe may represent subsegmental atelectasis however pneumonia cannot be excluded. Patient has moderate left hilar lymphadenopathy of uncertain etiology * Chest Xray (03/22/17) New right PICC catheter terminates at level of cavoatrial junction. Mild congestive change. * Chest xray (03/28/17): right picc line with tip extending to the cavoatrial junction. Moderate venous congestion. Patchy left basilar airspace opacity. Enlarged ectatic aorta. Cardiomegaly * Order strep pneumoniae: pending, legionella: negative, and mycoplasma IGM: negative * Meropenem (active since 03/31/17)-->discussed with ID, recommend for 3 more days * Florastor 250mg PO bid * Blood culture (03/20/17): no growth after 5 days Urinary Tract Infection * UA (2nd): hematuria-->treat as urinary tract infection * Urine culture (03/31/17): no growth * Urine culture (03/28/17): no growth * Urine culture (03/22/17): no growth * Bladder US (03/28/17): limited study; increased echogenicity of the bilateral renal cortices suggestive for medical renal disease. Prominent multiple bilateral scattered renal calculi without evidence of gross hydronephrosis; pradhan catheter in the urinary bladder Pressure ulcer * sacral wound: turn q 2hours, and wound care * No surgical intervention required per 04/01/17 note * Wound care (03/31/17): -Asked to assess patient who currently presents to unit with unstagable pressure ulcer to right sacrum. Recommending to continue medihoney, covered with foam dressing, must reposition frequently using wedges to optimize offloading, Albumin-2.9, dietary is on consult, and recommending Surgical consult to evaluate unstagable pressure ulcer. Jim of 16, Wbc-24.7, continues to be at risk for skin breakdown. + DVT * Upper Extremity Doppler (03/29/17): no DVT * Lower extremity doppler (03/29/17): acute thrombosis of the left popliteal vein with mild reduction of the venous return-->started on Eliquis during hospitalization Status: Improving (4) HTN (hypertension) Assessment & Plan: * Metoprolol 50mg PO BID (Hold SBP<100 and HR<60) * Losartan 50mg PO daily (Hold SBP<100) * Lasix 40mg PO daily (Hold SBP<100) * Ranexa 500mg PO bid * mdur 30mg PO daily Status: Chronic (5) OPHELIA (obstructive sleep apnea) Status: Chronic * Pulmonary (Dr. Quiñones) help appreciated * BIPAP * Educated about consistency of wearing the mask at bedside-->again re- emphasized the risk of sleep apnea including but not limited to stroke and heart attack Status: Chronic (6) COPD (chronic obstructive pulmonary disease) Status: Chronic * Albuterol 3ml inhaled RQ4 * Start Spiriva 18mcg inhaled q daily * BIPAP prn Status: Chronic (7) History of Spinal stenosis Status: Chronic (8) History of Pressure Ulcer * turn q 2hours, and wound care * No surgical intervention required per 04/01/17 note * Wound care (03/31/17): -Asked to assess patient who currently presents to unit with unstagable pressure ulcer to right sacrum. Recommending to continue medihoney, covered with foam dressing, must reposition frequently using wedges to optimize offloading, Albumin-2.9, dietary is on consult, and recommending Surgical consult to evaluate unstagable pressure ulcer. Jim of 16, Wbc-24.7, continues to be at risk for skin breakdown. Status: Chronic Discharged to subacute rehab, [facility]. Patient provided bariatric chair. Patient discharged with PICC line to complete 3 days of IV abx; to be remove once antibiotics are completed. Discussed with resident to speak with patient's PMD given medication changes.
== END 2017-04-07 17:48 | DRG 871 ==
LOC: C.ER 14:54 → C.9I 18:04 → C.6T 03-26 15:37
PROVIDERS: ADMIT Family Medicine; ATTEND Family Medicine
PROC: 5A09357 Assistance with Respiratory Ventilation, Less than 24 Consecutive Hours, Continuous Positive Airway Pressure (ICD-10-PCS; principal; 2017-03-20)
DX: A41.9 Sepsis, unspecified organism (principal); I21.4 Non-ST elevation (NSTEMI) myocardial infarction; J96.20 Acute and chronic respiratory failure, unspecified whether with hypoxia or hypercapnia; E87.2 Acidosis; L89.159 Pressure ulcer of sacral region, unspecified stage; J18.9 Pneumonia, unspecified organism; N17.9 Acute kidney failure, unspecified; I82.432 Acute embolism and thrombosis of left popliteal vein; N39.0 Urinary tract infection, site not specified; J44.0 Chronic obstructive pulmonary disease with (acute) lower respiratory infection; J98.11 Atelectasis; E66.01 Morbid (severe) obesity due to excess calories; E87.6 Hypokalemia; F17.200 Nicotine dependence, unspecified, uncomplicated; F32.9 Major depressive disorder, single episode, unspecified; G47.33 Obstructive sleep apnea (adult) (pediatric); G89.29 Other chronic pain; I11.9 Hypertensive heart disease without heart failure; I25.10 Atherosclerotic heart disease of native coronary artery without angina pectoris; I51.7 Cardiomegaly; I77.819 Aortic ectasia, unspecified site; I25.2 Old myocardial infarction; K59.00 Constipation, unspecified; M48.00 Spinal stenosis, site unspecified; N20.0 Calculus of kidney; Z74.01 Bed confinement status; Z79.02 Long term (current) use of antithrombotics/antiplatelets; Z79.82 Long term (current) use of aspirin; Z87.01 Personal history of pneumonia (recurrent); Z87.442 Personal history of urinary calculi; Z90.49 Acquired absence of other specified parts of digestive tract; Z96.651 Presence of right artificial knee joint

== ENCOUNTER 2017-05-02 14:57 | Inpatient (IN) | payer BC, MEDICARE ==
[2017-05-02 15:13] VITALS: BMI 43.2
[2017-05-02] MEDS ORDERED: Sodium Chloride 0.9% 1,000 ML IV ONE ×3 (15:22→16:49)
[2017-05-02 16:37] LABS: BASO # 0.1 K/uL (0.0-0.2); BASO % 0.2 % (0.0-2.0); EOS # 0.2 K/uL (0.0-0.7); EOS % 0.5 % (0.0-4.0); HEMATOCRIT 32.5 % (34.0-47.0); LYMPH # 1.2 K/uL (1.0-4.3); LYMPH % 3.8 % (20.0-40.0); MEAN CELL VOLUME 83.9 fL (81.0-99.0); MEAN CORPUSCULAR HEMOGLOBIN 26.2 pg (27.0-31.0); MEAN CORPUSCULAR HGB CONC 31.2 g/dL (33.0-37.0); MEAN PLATELET VOLUME 7.9 fL (7.2-11.7); MONO # 1.2 K/uL (0.0-0.8); MONO % 3.9 % (0.0-10.0); PLATELET COUNT 385 K/uL (130-400); RED CELL DISTRIBUTION WIDTH 18.4 % (11.5-14.5); WHITE BLOOD COUNT 32.1 K/uL (4.8-10.8)
[2017-05-02 16:41] LABS: VENOUS BLOOD GAS BASE EXCESS -1.8 mmol/L (0.0-2.0); VENOUS BLOOD GAS PCO2 65 mmHg (40-60); VENOUS BLOOD PH 7.23 (7.32-7.43)
[2017-05-02 16:46] LABS: INR 2.4; POTASSIUM 3.5 mmol/L (3.6-5.2)
[2017-05-02 16:48] LABS: BILIRUBIN,TOTAL 0.8 mg/dL (0.2-1.3)
[2017-05-02 16:49] LABS: ALB/GLOB RATIO 0.8 (1.0-2.1); CALCIUM 7.9 mg/dl (8.6-10.4); MAGNESIUM 1.5 mg/dL (1.6-2.3); PHOSPHOROUS 6.6 mg/dL (2.5-4.5); TOTAL PROTEIN 5.8 g/dL (6.3-8.3)
[2017-05-02] MEDS ORDERED: Piperacillin/Tazobact 3.375 gm 100 ML IVPB STA (16:49)
[2017-05-02] MEDS ORDERED: Piperacillin/Tazobact 3.375 gm 100 ML IVPB ONE (16:53)
[2017-05-02] MEDS ORDERED: Piperacill/Tazo 2.25gm in Dex 2.25 GM/50 ML BAG IVPB SCH ×2 (17:00→22:00)
[2017-05-02 17:05] LABS: TROPONIN I 0.398 ng/mL (0.00-0.120)
[2017-05-02 17:07] LABS: RBC URINE 8 /hpf (0-3); URINE BACTERIA FEW (<OCC); URINE BILIRUBIN NEGATIVE (NEGATIVE); URINE BLOOD 1+ (NEGATIVE); URINE COLOR Amber (YELLOW); URINE GLUCOSE (UA) NORMAL (Normal); URINE KETONE NEGATIVE (NEGATIVE); URINE LEUKOCYTE ESTERASE NEG Leu/uL (Negative); URINE PROTEIN 1+ mg/dL (NEGATIVE); WBC URINE 23 /hpf (0-5)
[2017-05-02] MEDS ORDERED: Vancomycin 1 GM 1 GM/250 ML BAG IVPB ONE (17:45)
[2017-05-02 17:47] LABS: NEUTROPHIL 95 % (50-75); TOTAL CELLS COUNTED 100
[2017-05-02 17:48] LABS: LARGE PLATELETS PRESENT
[2017-05-02] MEDS ORDERED: DOPamine 400mg/250ml D5W 250 ML IV STA (17:53)
--- NOTE | 2017-05-02 17:57 | C.PDOC ---
Time Seen by Provider: 05/02/17 15:05 Chief Complaint (Nursing): Weakness/Neurological Deficit History Per: Patient, Family History/Exam Limitations: clinical condition Onset/Duration Of Symptoms: Days (2) Current Symptoms Are (Timing): Still Present Current Symptoms: Lethargy Fall Associated With With Symptoms: No Severity: Severe Additional History Per: Prior Records - Symptoms Of CVA Recent Head Trauma: No Past Medical History Reviewed: Historical Data, Nursing Documentation, Vital Signs Vital Signs: Last Vital Signs Temp 97.9 F 05/02/17 15:13 Pulse 84 05/02/17 17:52 Resp 14 05/02/17 17:52 BP 79/34 L 05/02/17 17:52 Pulse Ox 92 L 05/02/17 17:52 - Medical History PMH: HTN, Kidney Stones, Pneumonia Surgical History: Cholecystectomy - [facility] Procedures ASSISTANCE WITH RESPIRATORY VENTILATION, <24 HRS, CPAP (03/20/17) Family History: States: Unknown Family Hx - Social History Hx Tobacco Use: Yes Hx Alcohol Use: No Hx Substance Use: No - Immunization History Hx Tetanus Toxoid Vaccination: No Hx Influenza Vaccination: No Hx Pneumococcal Vaccination: No Review Of Systems Constitutional: Positive for: Weakness, Malaise Cardiovascular: Negative for: Chest Pain Respiratory: Negative for: Shortness of Breath, Hemoptysis Gastrointestinal: Negative for: Vomiting, Abdominal Pain Genitourinary: Positive for: Other (Decreased urination) Musculoskeletal: Positive for: Back Pain, Leg Pain Neurological: Negative for: Seizures Physical Exam - Physical Exam Appears: Chronically Ill, Other (Lethargic) Skin: Normal Color, Warm, Dry Head: Atraumatic, Normacephalic Eye(s): bilateral: PERRL Neck: Normal ROM, Supple Cardiovascular: Rhythm Regular Respiratory: Normal Breath Sounds, No Accessory Muscle Use Gastrointestinal/Abdominal: Soft, No Tenderness, Other (obese) Back: Other (deep sacral ulcer with packing in place. Packing removed by me. ) Extremity: Normal ROM Neurological/Psych: Oriented x3, Eyes Open With Command, Slow To Respond With Command ED Course And Treatment - Laboratory Results Result Diagrams: 05/02/17 16:34 05/02/17 16:34 Lab Interpretation: Abnormal Interpretation Of Abnormal: Leukocytosis. Elevated BUN/Cr. Probable UTI. ECG: Interpreted By Me, Viewed By Me ECG Rhythm: Sinus Rhythm, Nonspecific Changes Rate From EC O2 Sat by Pulse Oximetry: 92 - Radiology CXR: Interpreted by Me, Viewed By Me CXR Interpretation: Yes: Other (Limited by position and body habitus) - Physician Consult Information Physician Contacted: Minda Reyes (ICU) Outcome Of Conversation: He accepted pt to ICU. Progress - Interventions Interventions:: Observation, Intravenous fluid, Oxygen - Medications Administered Intravenous: Other (Abx) - Data Reviewed Data Reviewed: Lab, Diagnostic imaging, EKG, Old records - Patient Status Patient status: Partially improved, Critical - Critical Care Citical Care: Excluding Proc Time Critical Care Time: 60 minutes - Continuity of Care Discussed patient case with:: Patient, Family-HIPPA compliant, ED Nurse, On- call PMD-pt unassigned Discussed pt. case with solutions consultant/specialty: Pulmonary/Crit. Care - Patient Plan Patient Plan: Admission, ICU Disposition Discussed With Dr.: Lacie Rogers Comment: He accepted pt on his service. Doctor Will See Patient In The: Hospital Counseled Patient/Family Regarding: Studies Performed, Diagnosis - Disposition Disposition: HOSPITALIZED Disposition Time: 17:30 Condition: CRITICAL - Clinical Impression Clinical Impression: Hypotension, Sepsis, Morbidly obese, Dehydration
--- NOTE | 2017-05-02 18:00 | RAD ---
HISTORY: Hypotension COMPARISON: Comparison is made to 03/31/2017 FINDINGS: LUNGS: Suboptimal study due to rotation. No evidence of focal infiltrate in the lungs. The right lung appears smaller in size compared to the previous exam. PLEURA: No evidence of significant pleural effusion or pneumothorax. CARDIOVASCULAR: Widening of the mediastinum is noted. The cardiac silhouette is also enlarged. OSSEOUS STRUCTURES: No significant abnormalities. VISUALIZED UPPER ABDOMEN: Normal. OTHER FINDINGS: None. IMPRESSION: Limited study due to rotation. Widening of the mediastinum. If clinically warranted further assessment by CT may be obtained to exclude acute pathology in the thoracic aorta.
[2017-05-02] MEDS: DOPamine 400mg/250ml D5W 400 MG/250 ML BAG IV SCH (18:17)
[2017-05-02] MEDS: Sodium Chloride 0.9% 1,000 ML IV SCH (21:04)
[2017-05-02] MEDS: Piperacill/Tazo 2.25gm in Dex 2.25 GM/50 ML BAG IVPB SCH (21:05)
--- NOTE | 2017-05-02 21:20 | CP.PCM.CON ---
History of Present Illness - History of Present Illness History of Present Illness: 60-year-old female with history of anxiety depression chronic back pain possible obstructive sleep apnea COPD brought by the family members because of the altered mental status. According to the family patient was not doing well for 2-3 days, possible becoming more and more lethargic, not eating well, not drinking. So the family was brought her to the emergency room. In the emergency room patient was more drowsy. She was significantly dehydrated. IV fluid was given, elevated WBC noted in the emergency room. As the blood pressure does not improve, was started on dopamine drip at this time. And patient was brought to the ICU Patient is currently on BiPAP. With the deep stimuli patient is arousable easily. She is following simple commands. Also she is awake and alert at this time She did not have any nausea, no vomiting noted. Sacral ulcer noted. Patient was not making much urine also. Her urine was very foul-smelling also small amount Pmhx: anxiety, depression, restless leg, and chronic back pain pshx: R knee replacement 9 years ago, tonsillectomy, lap kodi shx: denies drugs, alcohol, or smoking (quit smoking 30 yrs ago) fhx: mother and sister ([id number]) have breast cancer, both demised. On examination : Patient is on BiPAP. Arousable with the deep stimuli. Chest good air entry bilaterally minimal wheezing noted regular heart sound abdomen obese. Sacral decubiti noted. Edema negative. Urine is significantly discolored and very concentrated Labs reviewed in Chest x-ray reviewed Nonspecific. Significant WBC elevation noted. Urinalysis is significant for UTI Assessment and recommendation 60-year-old female with multiple medical problems admitted with possible septic shock, likely secondary to urinary tract infection. Severe urosepsis. Patient is also having chronic CO2 retention with acute exacerbation secondary to sepsis. Emergency triple-lumen catheter was placed on the right chest. Currently on dopamine. On antibiotic. IV fluid. Patient is having, critical condition at this time. Respiratory monitoring. May need intubation. We'll monitor the ABG. Antibiotic will follow the patient by the ICU team Past Patient History - Past Medical History & Family History Past Medical History?: Yes - Past Social History Smoking Status: Light Smoker < 10 Cigarettes Daily - CARDIAC Hx Hypertension: Yes - PULMONARY Hx Pneumonia: Yes - NEUROLOGICAL Hx Neurological Disorder: No - HEENT Hx HEENT Problems: No - RENAL Hx Kidney Stones: Yes - ENDOCRINE/METABOLIC Hx Endocrine Disorders: No - HEMATOLOGICAL/ONCOLOGICAL Hx Blood Disorders: No - INTEGUMENTARY Other/Comment: Abdominal Fold reddened and weeping with foul smell - MUSCULOSKELETAL/RHEUMATOLOGICAL Hx Falls: Yes Hx Herniated Disk: Yes - GASTROINTESTINAL Hx Gastrointestinal Disorders: No - GENITOURINARY/GYNECOLOGICAL Hx Genitourinary Disorders: No - PSYCHIATRIC Hx Substance Use: No - SURGICAL HISTORY Hx Cholecystectomy: Yes - ANESTHESIA Hx Anesthesia: Yes Hx Anesthesia Reactions: No Hx Malignant Hyperthermia: No Meds Allergies/Adverse Reactions: Allergies Allergy/AdvReac Type Severity Reaction Status Date / Time No Known Allergies Allergy Verified 02/01/16 05:56 - Medications Medications: Current Medications Albuterol/Ipratropium (Duoneb 3 Mg/0.5 Mg (3 Ml) Ud) 3 ml INH RQ6 RIK Famotidine (Pepcid) 20 mg IVP DAILY RIK Dopamine HCl/Dextrose (Dopamine 400mg/250ml D5w) 400 mg in 250 mls @ 8.301 mls/ hr IV .Q24H RIK; 2 MCG/KG/MIN PRN Reason: Protocol Last Titration: 05/02/17 19:45 Dose: 10 mcg/kg/min, 41.504 mls/hr Sodium Chloride (Sodium Chloride 0.9%) 1,000 mls @ 150 mls/hr IV .Q6H40M RIK Last Admin: 05/02/17 21:04 Dose: 150 mls/hr Vancomycin HCl 1 gm/ Sodium (Chloride) 250 mls @ 166.7 mls/hr IVPB Q24H RIK Piperacillin Sod/Tazobactam Sod (Zosyn 2.25 Gm Iv Premix) 2.25 gm in 50 mls @ 100 mls/hr IVPB Q8H RIK Last Admin: 05/02/17 21:05 Dose: Not Given Results - Vital Signs Recent Vital Signs: Last Vital Signs Temp 97.9 F 05/02/17 15:13 Pulse 105 H 05/02/17 20:10 Resp 15 05/02/17 19:50 BP 100/47 L 05/02/17 19:41 Pulse Ox 89 L 05/02/17 19:50 - Labs Result Diagrams: 05/02/17 21:44 05/02/17 21:44
[2017-05-02 21:38] LABS: ARTERIAL BLOOD GAS MODE BiPAP; DRAW SITE LBA
[2017-05-02 21:49] LABS: BASO # 0.3 K/uL (0.0-0.2); BASO % 0.8 % (0.0-2.0); EOS # 0.1 K/uL (0.0-0.7); EOS % 0.2 % (0.0-4.0); HEMATOCRIT 31.7 % (34.0-47.0); LYMPH # 0.9 K/uL (1.0-4.3); LYMPH % 2.4 % (20.0-40.0); MEAN CELL VOLUME 84.1 fL (81.0-99.0); MEAN CORPUSCULAR HEMOGLOBIN 26.1 pg (27.0-31.0); MEAN PLATELET VOLUME 7.6 fL (7.2-11.7); MONO # 1.3 K/uL (0.0-0.8); MONO % 3.3 % (0.0-10.0); PLATELET COUNT 408 K/uL (130-400); RED CELL DISTRIBUTION WIDTH 18.3 % (11.5-14.5)
[2017-05-02 21:55] LABS: WHITE BLOOD COUNT 38.8 K/uL (4.8-10.8)
[2017-05-02 21:58] LABS: INR 2.1; POTASSIUM 3.5 mmol/L (3.6-5.2)
[2017-05-02 22:00] LABS: BILIRUBIN,TOTAL 0.9 mg/dL (0.2-1.3)
[2017-05-02 22:01] LABS: ALB/GLOB RATIO 0.7 (1.0-2.1); CALCIUM 8.2 mg/dl (8.6-10.4); TOTAL PROTEIN 6.2 g/dL (6.3-8.3)
[2017-05-02 22:02] LABS: LARGE PLATELETS PRESENT; NEUTROPHIL 93 % (50-75); TOTAL CELLS COUNTED 100
[2017-05-02] MEDS ORDERED: Sodium Chloride 0.9% 500 ML IV ONE (22:19)
[2017-05-02] MEDS ORDERED: MethylPREDNISolone 40 mg Vial IVP SCH (22:30)
[2017-05-02] MEDS: metroNIDAZOLE IV 500 mg/100 ml 250 MG in Premixed IV 1 EA IVPB SCH (22:41)
[2017-05-03] MEDS: DOPamine 400mg/250ml D5W 400 MG/250 ML BAG IV SCH (01:23)
[2017-05-03] MEDS: Piperacill/Tazo 2.25gm in Dex 2.25 GM/50 ML BAG IVPB SCH ×2 (01:25→08:18)
[2017-05-03] MEDS: Albuterol-Ipratrop 3 mg / 0.5 (3 ml) UD INH SCH ×4 (01:52→19:36)
[2017-05-03] MEDS: Sodium Chloride 0.9% 1,000 ML IV SCH ×4 (04:25→18:03)
[2017-05-03 05:33] LABS: ABG MECHANICAL RATE 12; ARTERIAL BLOOD GAS MODE BiPAP; ARTERIAL BLOOD HGB O2 SAT 95.5 % (95.0-98.0); CARBOXYHEMOGLOBIN 2.3 % (0.5-1.5); DRAW SITE RBA; HHB 0.7 % (0.0-5.0); METHEMOGLOBIN 1.5 % (0.0-3.0)
[2017-05-03] MEDS: metroNIDAZOLE IV 500 mg/100 ml 250 MG in Premixed IV 1 EA IVPB SCH ×3 (05:33→21:33)
[2017-05-03 06:25] LABS: BASO % 0.1 % (0.0-2.0); HEMATOCRIT 32.2 % (34.0-47.0); LYMPH # 0.5 K/uL (1.0-4.3); LYMPH % 1.2 % (20.0-40.0); MEAN CELL VOLUME 83.4 fL (81.0-99.0); MEAN CORPUSCULAR HEMOGLOBIN 25.7 pg (27.0-31.0); MEAN CORPUSCULAR HGB CONC 30.8 g/dL (33.0-37.0); MEAN PLATELET VOLUME 8.4 fL (7.2-11.7); MONO # 0.4 K/uL (0.0-0.8); MONO % 0.9 % (0.0-10.0); PLATELET COUNT 436 K/uL (130-400); RED CELL DISTRIBUTION WIDTH 18.1 % (11.5-14.5)
[2017-05-03 06:27] LABS: ALB/GLOB RATIO 0.8 (1.0-2.1); BILIRUBIN,TOTAL 0.7 mg/dL (0.2-1.3); CALCIUM 8.6 mg/dl (8.6-10.4); MAGNESIUM 1.7 mg/dL (1.6-2.3); PHOSPHOROUS 5.7 mg/dL (2.5-4.5); POTASSIUM 3.9 mmol/L (3.6-5.2); TOTAL PROTEIN 6.1 g/dL (6.3-8.3)
[2017-05-03 06:52] LABS: WHITE BLOOD COUNT 41.4 K/uL (4.8-10.8)
[2017-05-03] MEDS: DOPamine 400mg/250ml D5W 400 MG/250 ML BAG IV PRN ×2 (08:17→21:27)
[2017-05-03 08:42] LABS: NEUTROPHIL 92 % (50-75); TOTAL CELLS COUNTED 100
[2017-05-03 08:43] LABS: LARGE PLATELETS PRESENT
[2017-05-03] MEDS: MethylPREDNISolone 40 mg Vial IVP SCH ×2 (09:49→18:08)
[2017-05-03] MEDS: Vancomycin 125 MG/5 ML SOLN (ORAL/RECTAL) PO SCH ×4 (10:01→21:38)
--- NOTE | 2017-05-03 10:34 | CP.PCM.CON ---
History of Present Illness - History of Present Illness History of Present Illness: 60-year-old female with history of anxiety depression chronic back pain possible obstructive sleep apnea COPD brought by the family members because of the altered mental status. referred for ID eval of sepsis, infected decubitus from home with large wound Pmhx: COPD, anxiety, depression, restless leg, and chronic back pain pshx: R knee replacement 9 years ago, tonsillectomy, lap kodi shx: denies drugs, alcohol, or smoking (quit smoking 30 yrs ago) fhx: mother and sister ([id number]) have breast cancer, both demised. On examination : Review of Systems - Review of Systems Systems not reviewed;Unavailable: Altered Mental Status - Constitutional Constitutional: As Per HPI - EENT Eyes: absent: As Per HPI, Blind Spots, Blurred Vision, Change in Vision, Decreased Night Vision, Diplopia, Discharge, Dry Eye, Exophthalmos, Floaters, Irritation, Itchy Eyes, Loss of Peripheral Vision, Pain, Photophobia, Requires Corrective Lenses, Sees Flashes, Spots in Vision, Tunnel Vision, Other Visual Disturbances, Loss of Vision, Other Ears: absent: As Per HPI, Decreased Hearing, Ear Discharge, Ear Pain, Tinnitus, Abnormal Hearing, Disequilibrium, Dizziness, Other Nose/Mouth/Throat: absent: As Per HPI, Epistaxis, Nasal Congestion, Nasal Discharge, Nasal Obstruction, Nasal Trauma, Nose Pain, Post Nasal Drip, Sinus Pain, Sinus Pressure, Bleeding Gums, Change in Voice, Dental Pain, Dry Mouth, Dysphagia, Halitosis, Hoarsness, Lip Swelling, Mouth Lesions, Mouth Pain, Odynophagia, Sore Throat, Throat Swelling, Tongue Swelling, Facial Pain, Neck Pain, Neck Mass, Other - Breasts Breasts: absent: As Per HPI, Change in Shape, Mass, Pain, Nipple Discharge, Nipple Inversion, Skin Changes, Swelling, Other - Cardiovascular Cardiovascular: As Per HPI - Respiratory Respiratory: As Per HPI - Gastrointestinal Gastrointestinal: absent: As Per HPI, Abdominal Pain, Belching, Bloating, Change in Bowel Habits, Change in Stool Character, Coffee Ground Emesis, Constipation, Cramping, Diarrhea, Dyspepsia, Dysphagia, Early Satiety, Excessive Flatus, Fecal Incontinence, Heartburn, Hematemesis, Hematochezia, Loose Stools, Melena, Nausea, Odynophagia, Temesmus, Vomiting, Other - Genitourinary Genitourinary: absent: As Per HPI, Change in Urinary Stream, Difficulty Urinating, Dysuria, Flank Pain, Hematuria, Pyuria, Nocturia, Urinary Incontinence, Urinary Frequency, Urinary Hesitance, Urinary Urgency, Voiding Freq/Small Amts, Freq UTI, Hx Renal/Bladder Calculi, Hx /Renal Surgery, Bladder Distension, Other - Reproductive: Female Reproductive:Female: absent: As Per HPI, Amenorrhea, Amenorrhea/ Control, Currently Menstual, Cycle <21 Days, Cycle >35 Days, Cycle Variable, Menses 1-7 Days, Menses >/= 8 Days, Menses Variable, Cycle > 4 Weeks Between, No Menses for 6 Months, Heavy Menses, Light Menses, Normal Menses, Spotting Between Cycles , S/P Hysterectomy, Menopausal, Post Menopausal, Premenarche, Abnormal Vaginal Bleeding, Dysmenorrhea, Dyspareunia, Genital Lesions, Genital Pruritis, Pelvic Pain, Prolapse Symptoms, Sexual Dysfunction, Vaginal Discharge, Vaginal Dryness , Vaginal Odor, Vaginal Pruritis, Other - Menstruation Menstruation: absent: As Per HPI, Amenorrhea, Amenorrhea/ Control, Currently Menstual, Cycle <21 Days, Cycle >35 Days, Cycle Variable, Menses 1-7 Days, Menses >/= 8 Days, Menses Variable, Cycle > 4 Weeks Between, No Menses for 6 Months, Heavy Menses, Light Menses, Normal Menses, Spotting Between Cycles , S/P Hysterectomy, Menopausal, Post Menopausal, Premenarche, Abnormal Vaginal Bleeding, Dysmenorrhea, Other - Musculoskeletal Musculoskeletal: As Per HPI - Integumentary Integumentary: As Per HPI, Skin Pain, Wounds - Neurological Neurological: As Per HPI, Abnormal Gait - Psychiatric Psychiatric: As Per HPI - Endocrine Endocrine: absent: As Per HPI, Change in Body Appearance, Change in Libido, Cold Intolorance, Deepening of Voice, Excessive Sweating, Fatigue, Flushing, Heat Intolorance, Increase in Ring/Shoe/Hat Size, Palpitations, Polydipsia, Polyphagia, Polyuria, Other - Hematologic/Lymphatic Hematologic: absent: As Per HPI, Easy Bleeding, Easy Bruising, Lymphadenopathy, Other Past Patient History - Past Medical History & Family History Past Medical History?: Yes - Past Social History Smoking Status: Light Smoker < 10 Cigarettes Daily - CARDIAC Hx Hypertension: Yes - PULMONARY Hx Pneumonia: Yes - NEUROLOGICAL Hx Neurological Disorder: No - HEENT Hx HEENT Problems: No - RENAL Hx Kidney Stones: Yes - ENDOCRINE/METABOLIC Hx Endocrine Disorders: No - HEMATOLOGICAL/ONCOLOGICAL Hx Blood Disorders: No - INTEGUMENTARY Other/Comment: Abdominal Fold reddened and weeping with foul smell - MUSCULOSKELETAL/RHEUMATOLOGICAL Hx Falls: Yes Hx Herniated Disk: Yes - GASTROINTESTINAL Hx Gastrointestinal Disorders: No - GENITOURINARY/GYNECOLOGICAL Hx Genitourinary Disorders: No - PSYCHIATRIC Hx Substance Use: No - SURGICAL HISTORY Hx Cholecystectomy: Yes - ANESTHESIA Hx Anesthesia: Yes Hx Anesthesia Reactions: No Hx Malignant Hyperthermia: No Meds Allergies/Adverse Reactions: Allergies Allergy/AdvReac Type Severity Reaction Status Date / Time No Known Allergies Allergy Verified 02/01/16 05:56 - Medications Medications: Current Medications Albuterol/Ipratropium (Duoneb 3 Mg/0.5 Mg (3 Ml) Ud) 3 ml INH RQ6 [facility] Last Admin: 05/03/17 01:52 Dose: 3 ml Famotidine (Pepcid) 20 mg IVP DAILY [facility] Last Admin: 05/03/17 09:49 Dose: 20 mg Sodium Chloride (Sodium Chloride 0.9%) 1,000 mls @ 150 mls/hr IV .Q6H40M [facility] Last Admin: 05/03/17 05:34 Dose: 150 mls/hr Vancomycin HCl 1 gm/ Sodium (Chloride) 250 mls @ 166.7 mls/hr IVPB Q24H [facility] Last Admin: 05/03/17 09:48 Dose: 166.7 mls/hr Metronidazole 250 mg/ (Miscellaneous) 50 mls @ 100 mls/hr IVPB Q8 [facility] Last Admin: 05/03/17 05:33 Dose: 100 mls/hr Dopamine HCl/Dextrose (Dopamine 400mg/250ml D5w) 400 mg in 250 mls @ 8.301 mls/ hr IV .Q24H PRN; 2 MCG/KG/MIN PRN Reason: Protocol Last Admin: 05/03/17 08:17 Dose: 6 mcg/kg/min, 24.902 mls/hr Imipenem/Cilastatin Sodium 500 (mg/ Sodium Chloride) 100 mls @ 100 mls/hr IVPB Q6H [facility] Methylprednisolone (Solu-Medrol) 20 mg IVP BID [facility] Last Admin: 05/03/17 09:49 Dose: 20 mg Vancomycin HCl (Vancocin (Oral Or Rectal Use)) 125 mg PO QID [facility] Last Admin: 05/03/17 10:01 Dose: 125 mg Physical Exam - Constitutional Appears: Toxic, Confused, Chronically Ill - Head Exam Head Exam: ATRAUMATIC, NORMAL INSPECTION, NORMOCEPHALIC - Eye Exam Eye Exam: PERRL. absent: Scleral icterus - ENT Exam ENT Exam: Mucous Membranes Dry, Normal External Ear Exam, Normal Oropharynx - Neck Exam Neck exam: Negative for: Lymphadenopathy, Thyromegaly - Respiratory Exam Respiratory Exam: Decreased Breath Sounds - Cardiovascular Exam Cardiovascular Exam: REGULAR RHYTHM, +S1, +S2 - GI/Abdominal Exam GI & Abdominal Exam: Diminished Bowel Sounds, Soft. absent: Tenderness - Rectal Exam Additional comments: large sacral decubitus stage IV - Exam Exam: NORMAL INSPECTION - Extremities Exam Extremities exam: Positive for: pedal pulses present. Negative for: calf tenderness, joint swelling, pedal edema - Back Exam Back exam: absent: CVA tenderness (L), CVA tenderness (R) - Neurological Exam Neurological exam: Alert, Altered, CN II-XII Intact - Psychiatric Exam Psychiatric exam: Depressed - Skin Skin Exam: Dry Results - Vital Signs Recent Vital Signs: Last Vital Signs Temp 98.6 F 05/03/17 08:00 Pulse 77 05/03/17 09:07 Resp 16 05/03/17 09:07 BP 116/60 05/03/17 09:07 Pulse Ox 96 05/03/17 09:07 - Labs Result Diagrams: 05/03/17 06:07 05/03/17 06:06 Labs: Laboratory Results - last 24 hr 05/02/17 05/02/17 05/02/17 21:30 21:44 21:44 WBC 38.8 H* RBC 3.77 L Hgb 9.8 L Hct 31.7 L MCV 84.1 MCH 26.1 L MCHC 31.0 L RDW 18.3 H Plt Count 408 H MPV 7.6 Neut % (Auto) 93.3 H Lymph % (Auto) 2.4 L Tyrrell % (Auto) 3.3 Eos % (Auto) 0.2 Baso % (Auto) 0.8 Neut # 36.2 H Lymph # 0.9 L Tyrrell # 1.3 H Eos # 0.1 Baso # 0.3 H Neutrophils % (Manual) 93 H Band Neutrophils % Lymphocytes % (Manual) 5 L Monocytes % (Manual) 2 Platelet Estimate Slightly increased H Large Platelets Present Hypochromasia (manual) Anisocytosis (manual) PT INR APTT Puncture Site Lba pCO2 65 H pO2 69 L HCO3 23.9 ABG pH 7.24 L ABG Total CO2 29.9 H ABG O2 Saturation 96.1 ABG Base Excess -1.0 ABG Hemoglobin ABG Carboxyhemoglobin POC ABG HHb (Measured) ABG Methemoglobin Ming Test Na ABG Potassium 3.4 L A-a O2 Difference 135.0 Respiratory Index 2.0 Hgb O2 Saturation Sodium 137.0 138 Chloride 102.0 97 L Glucose 121 H Lactate 0.7 Vent Mode Bipap Mechanical Rate FiO2 40.0 Inspiratory BiPAP 14 Expiratory BiPAP 6 Potassium 3.5 L Carbon Dioxide 26 Anion Gap 18 BUN 38 H Creatinine 1.6 H Est GFR ( Amer) 40 Est GFR (Non-Af Amer) 33 POC Glucose (mg/dL) Random Glucose 118 H Calcium 8.2 L Phosphorus Magnesium Total Bilirubin 0.9 AST 22 ALT 23 Alkaline Phosphatase 104 Total Protein 6.2 L Albumin 2.6 L Globulin 3.6 Albumin/Globulin Ratio 0.7 L Arterial Blood Potassium 3.4 L 05/02/17 05/03/17 05/03/17 21:44 00:51 05:28 WBC RBC Hgb Hct MCV MCH MCHC RDW Plt Count MPV Neut % (Auto) Lymph % (Auto) Tyrrell % (Auto) Eos % (Auto) Baso % (Auto) Neut # Lymph # Tyrrell # Eos # Baso # Neutrophils % (Manual) Band Neutrophils % Lymphocytes % (Manual) Monocytes % (Manual) Platelet Estimate Large Platelets Hypochromasia (manual) Anisocytosis (manual) PT 23.8 H INR 2.1 APTT 27 D Puncture Site Rba pCO2 60 H pO2 107 H HCO3 23.7 ABG pH 7.25 L ABG Total CO2 28.1 H ABG O2 Saturation 99.3 H ABG Base Excess -1.6 ABG Hemoglobin 10.4 L ABG Carboxyhemoglobin 2.3 H POC ABG HHb (Measured) 0.7 ABG Methemoglobin 1.5 Ming Test Na ABG Potassium A-a O2 Difference 68.0 Respiratory Index 0.6 Hgb O2 Saturation 95.5 Sodium Chloride Glucose Lactate Vent Mode Bipap Mechanical Rate 12 FiO2 35.0 Inspiratory BiPAP 14 Expiratory BiPAP 6 Potassium Carbon Dioxide Anion Gap BUN Creatinine Est GFR ( Amer) Est GFR (Non-Af Amer) POC Glucose (mg/dL) 127 H Random Glucose Calcium Phosphorus Magnesium Total Bilirubin AST ALT Alkaline Phosphatase Total Protein Albumin Globulin Albumin/Globulin Ratio Arterial Blood Potassium 05/03/17 05/03/17 05/03/17 06:06 06:07 06:25 WBC 41.4 H* RBC 3.86 Hgb 9.9 L Hct 32.2 L MCV 83.4 MCH 25.7 L MCHC 30.8 L RDW 18.1 H Plt Count 436 H MPV 8.4 Neut % (Auto) 97.8 H Lymph % (Auto) 1.2 L Tyrrell % (Auto) 0.9 Eos % (Auto) 0.0 Baso % (Auto) 0.1 Neut # 40.5 H Lymph # 0.5 L Tyrrell # 0.4 Eos # 0.0 Baso # 0.0 Neutrophils % (Manual) 92 H Band Neutrophils % 7 H Lymphocytes % (Manual) 1 L Monocytes % (Manual) TEST NOT PERFORMED Platelet Estimate Slightly increased H Large Platelets Present Hypochromasia (manual) Slight Anisocytosis (manual) Slight PT INR APTT Puncture Site pCO2 pO2 HCO3 ABG pH ABG Total CO2 ABG O2 Saturation ABG Base Excess ABG Hemoglobin ABG Carboxyhemoglobin POC ABG HHb (Measured) ABG Methemoglobin Ming Test ABG Potassium A-a O2 Difference Respiratory Index Hgb O2 Saturation Sodium 136 Chloride 99 Glucose Lactate Vent Mode Mechanical Rate FiO2 Inspiratory BiPAP Expiratory BiPAP Potassium 3.9 Carbon Dioxide 26 Anion Gap 15 BUN 36 H Creatinine 1.4 H Est GFR ( Amer) 47 Est GFR (Non-Af Amer) 38 POC Glucose (mg/dL) 153 H Random Glucose 144 H Calcium 8.6 Phosphorus 5.7 H Magnesium 1.7 Total Bilirubin 0.7 AST 25 ALT 22 Alkaline Phosphatase 107 Total Protein 6.1 L Albumin 2.7 L Globulin 3.4 Albumin/Globulin Ratio 0.8 L Arterial Blood Potassium Assessment & Plan (1) Dehydration Status: Acute (2) Hypotension Status: Acute (3) Sepsis Status: Acute (4) Morbidly obese Status: Chronic (5) Altered mental status Status: Acute (6) Anxiety Status: Acute (7) Cellulitis Status: Acute (8) Chronic pain Status: Acute (9) Weakness Status: Acute (10) COPD (chronic obstructive pulmonary disease) Status: Chronic (11) HTN (hypertension) Status: Chronic (12) OPHELIA (obstructive sleep apnea) Status: Chronic (13) Spinal stenosis Status: Chronic (14) SIRS (systemic inflammatory response syndrome) Status: Resolved - Assessment and Plan (Free Text) Assessment: 61 yo female with sever spinal stenosis, chronic back pain chronically berdridden and copd admitted with septic shock secondaryu to infected decubitus which needs drainage / debridement may require diverting colostomy Plan: cont iv antibiotics may need intubation, pressors stat surgical consult called
--- NOTE | 2017-05-03 10:55 | RAD ---
HISTORY: verify line placement COMPARISON: Chest x-ray performed 05/02/17 TECHNIQUE: Chest, one view. FINDINGS: Markedly limited by habitus and patient obliquity. Right IJ approach central venous catheter extends expected location of the SVC. LUNGS: Right lower lobe atelectasis or pneumonia. Medial left lower lobe atelectasis or pneumonia. PLEURA: No significant pleural effusion identified. No definite pneumothorax . CARDIOVASCULAR: Cardiomegaly. OSSEOUS STRUCTURES: Degenerative changes. VISUALIZED UPPER ABDOMEN: Elevation of the right hemidiaphragm. OTHER FINDINGS: None. IMPRESSION: Examination limited by habitus. Right IJ approach central venous catheter extends expected location of the SVC. Right lower lobe and medial left lower lobe atelectasis or pneumonia. Cardiomegaly. Elevation of the right hemidiaphragm.
[2017-05-03 11:26] LABS: ABG ALLEN TEST POS; ARTERIAL BLOOD HGB O2 SAT 95.3 % (95.0-98.0); CARBOXYHEMOGLOBIN 1.7 % (0.5-1.5); DRAW SITE L/RAD; HHB 1.6 % (0.0-5.0); METHEMOGLOBIN 1.4 % (0.0-3.0)
--- NOTE | 2017-05-03 11:31 | CP.CCUPN ---
<Kelley Myers - Last Filed: 05/03/17 11:28> CCU Subjective - Physician Review Subjective (Free Text): Patient was seen and examined at bedside in the morning. Patient is lethargic. Patient denies having chest pain, abdominal pain, nausea, vomiting, diarrhea, and fevers. 05/03/17 11:28 CCU Objective - Vital Signs / Intake & Output Vital Signs (Last 4 hours): Vital Signs Temp Pulse Resp BP Pulse Ox 05/03/17 11:07 78 16 104/53 L 95 05/03/17 11:00 81 14 96 05/03/17 10:38 81 20 116/52 L 96 05/03/17 10:07 80 13 108/60 94 L 05/03/17 10:00 78 11 L 95 05/03/17 09:37 82 14 124/62 97 05/03/17 09:07 77 16 116/60 96 05/03/17 09:00 80 10 L 96 05/03/17 08:37 77 13 117/61 96 05/03/17 08:17 78 14 120/63 97 05/03/17 08:07 79 11 L 120/63 99 05/03/17 08:00 98.6 F 97 05/03/17 07:37 101/51 L Intake and Output (Last 8hrs): Intake & Output 05/02/17 05/03/17 05/03/17 22:59 06:59 14:59 Intake Total 848.9 1928.1 1124.4 Output Total 130 570 320 Balance 718.9 1358.1 804.4 Weight 245 lb 3.2 oz Intake: IV 25 431 Intake, IV Amount 823.9 1497.1 874.4 Right Distal Port 123.9 322.1 149.4 Internal Jugular Right Medial Port 700 1175 725 Internal Jugular Oral 250 Output: Urine 130 570 320 Urethral (Colmenares) 130 570 320 Other: Voiding Method Indwelling Catheter # Bowel Movements 0 - Physical Exam Physical Exam Limitations: Positive for: Other (lethargic) Head: Positive for: Atraumatic, Normocephalic Extroacular Muscles: Positive for: EOMI Mouth: Positive for: Moist Mucous Membranes Respiratory/Chest: Positive for: Clear to Auscultation. Negative for: Decreased Breath Sounds Cardiovascular: Positive for: Regular Rate and Rhythm, Normal S1, S2 Abdomen: Positive for: Normal Bowel Sounds, Other (Obese). Negative for: Tenderness Rectal: Positive for: Other (Sacral wound- copious drainage) Upper Extremity: Positive for: Normal Inspection Lower Extremity: Positive for: Edema Skin: Positive for: Warm, Other (sacral wound- copious drainage) Psychiatric: Positive for: Alert, Oriented x 3 - Medications Active Medications: Active Medications Generic Name Dose Route Start Last Admin Trade Name Freq PRN Reason Stop Dose Admin Albuterol/Ipratropium 3 ml 05/03/17 02:00 05/03/17 01:52 Duoneb 3 Mg/0.5 Mg (3 Ml) Ud INH 3 ml RQ6 RIK Administration Famotidine 20 mg 05/02/17 22:00 05/03/17 09:49 Pepcid IVP 20 mg DAILY RIK Administration Sodium Chloride 1,000 mls @ 150 mls/hr 05/02/17 20:45 05/03/17 10:56 Sodium Chloride 0.9% IV Not Given .[id number] RIK Vancomycin HCl 1 gm/ Sodium 250 mls @ 166.7 mls/hr 05/03/17 09:00 05/03/17 09 :48 Chloride IVPB 166.7 mls/hr Q24H RIK Administration Metronidazole 250 mg/ 50 mls @ 100 mls/hr 05/02/17 22:30 05/03/17 05:33 Miscellaneous IVPB 100 mls/hr Q8 RIK Administration Dopamine HCl/Dextrose 400 mg in 250 mls @ 8.301 mls/hr 05/03/17 08:30 08:17 Dopamine 400mg/250ml D5w IV 6 mcg/kg/min .Q24H PRN 24.902 mls/hr Protocol Administration 2 MCG/KG/MIN Imipenem/Cilastatin Sodium 500 100 mls @ 100 mls/hr 05/03/17 10:00 mg/ Sodium Chloride IVPB Q6H RIK Methylprednisolone 20 mg 05/03/17 08:25 05/03/17 09:49 Solu-Medrol IVP 20 mg BID RIK Administration Vancomycin HCl 125 mg 05/03/17 10:00 05/03/17 10:01 Vancocin (Oral Or Rectal Use) PO 125 mg QID RIK Administration - Patient Studies Lab Studies: Lab Studies 05/03/17 05/03/17 05/03/17 Range/Units 11:10 06:25 06:07 WBC 41.4 H* (4.8-10.8) K/uL RBC 3.86 (3.80-5.20) Mil/uL Hgb 9.9 L (11.0-16.0) g/dL Hct 32.2 L (34.0-47.0) % MCV 83.4 (81.0-99.0) fL MCH 25.7 L (27.0-31.0) pg MCHC 30.8 L (33.0-37.0) g/dL RDW 18.1 H (11.5-14.5) % Plt Count 436 H (130-400) K/uL MPV 8.4 (7.2-11.7) fL Neut % (Auto) 97.8 H (50.0-75.0) % Lymph % (Auto) 1.2 L (20.0-40.0) % Holmes % (Auto) 0.9 (0.0-10.0) % Eos % (Auto) 0.0 (0.0-4.0) % Baso % (Auto) 0.1 (0.0-2.0) % Neut # 40.5 H (1.8-7.0) K/uL Lymph # 0.5 L (1.0-4.3) K/uL Holmes # 0.4 (0.0-0.8) K/uL Eos # 0.0 (0.0-0.7) K/uL Baso # 0.0 (0.0-0.2) K/uL Neutrophils % (Manual) 92 H (50-75) % Band Neutrophils % 7 H (0-2) % Lymphocytes % (Manual) 1 L (20-40) % Monocytes % (Manual) TEST NOT PERFORMED (0-10) % Platelet Estimate Slightly increased H (NORMAL) Large Platelets Present Hypochromasia (manual) Slight Anisocytosis (manual) Slight PT (9.7-12.2) SECONDS INR APTT (21-34) SECONDS Puncture Site L/rad pCO2 52 H (35-45) mm/Hg pO2 101 H (80-100) mm/Hg HCO3 21.4 (21-28) mmol/L ABG pH 7.26 L (7.35-7.45) ABG Total CO2 24.9 (22-28) mmol/L ABG O2 Saturation 98.3 H (95-98) % ABG Base Excess -4.4 L (-2.0-3.0) mmol/L ABG Hemoglobin 14.3 (11.7-17.4) g/dL ABG Carboxyhemoglobin 1.7 H (0.5-1.5) % POC ABG HHb (Measured) 1.6 (0.0-5.0) % ABG Methemoglobin 1.4 (0.0-3.0) % Ming Test Pos ABG Potassium (3.6-5.2) mmol/L A-a O2 Difference mm/Hg Respiratory Index Hgb O2 Saturation 95.3 (95.0-98.0) % Sodium (132-148) mmol/l Chloride (98-107) mmol/L Glucose (65-105) mg/dl Lactate (0.7-2.1) mmol/L Liter Flow 2.5 Vent Mode Mechanical Rate FiO2 % Inspiratory BiPAP Expiratory BiPAP Crit Value Called To Dr alcaraz Crit Value Called By John rubi roof bolter helper Crit Value Read Back Y Blood Gas Notified Time 1120 Potassium (3.6-5.2) mmol/L Carbon Dioxide (22-30) mmol/L Anion Gap (10-20) BUN (7-17) mg/dL Creatinine (0.7-1.2) MG/DL Est GFR ( Amer) Est GFR (Non-Af Amer) POC Glucose (mg/dL) 153 H (65-110) mg/dL Random Glucose (65-105) mg/dL Calcium (8.6-10.4) mg/dl Phosphorus (2.5-4.5) mg/dL Magnesium (1.6-2.3) mg/dL Total Bilirubin (0.2-1.3) mg/dL AST (14-36) U/L ALT (9-52) U/L Alkaline Phosphatase (38-126) U/L Total Protein (6.3-8.3) g/dL Albumin (3.5-5.0) g/dL Globulin (2.2-3.9) gm/dL Albumin/Globulin Ratio (1.0-2.1) Arterial Blood Potassium (3.6-5.2) mmol/L 05/03/17 05/03/17 05/03/17 Range/Units 06:06 05:28 00:51 WBC (4.8-10.8) K/uL RBC (3.80-5.20) Mil/uL Hgb (11.0-16.0) g/dL Hct (34.0-47.0) % MCV (81.0-99.0) fL MCH (27.0-31.0) pg MCHC (33.0-37.0) g/dL RDW (11.5-14.5) % Plt Count (130-400) K/uL MPV (7.2-11.7) fL Neut % (Auto) (50.0-75.0) % Lymph % (Auto) (20.0-40.0) % Holmes % (Auto) (0.0-10.0) % Eos % (Auto) (0.0-4.0) % Baso % (Auto) (0.0-2.0) % Neut # (1.8-7.0) K/uL Lymph # (1.0-4.3) K/uL Holmes # (0.0-0.8) K/uL Eos # (0.0-0.7) K/uL Baso # (0.0-0.2) K/uL Neutrophils % (Manual) (50-75) % Band Neutrophils % (0-2) % Lymphocytes % (Manual) (20-40) % Monocytes % (Manual) (0-10) % Platelet Estimate (NORMAL) Large Platelets Hypochromasia (manual) Anisocytosis (manual) PT (9.7-12.2) SECONDS INR APTT (21-34) SECONDS Puncture Site Rba pCO2 60 H (35-45) mm/Hg pO2 107 H (80-100) mm/Hg HCO3 23.7 (21-28) mmol/L ABG pH 7.25 L (7.35-7.45) ABG Total CO2 28.1 H (22-28) mmol/L ABG O2 Saturation 99.3 H (95-98) % ABG Base Excess -1.6 (-2.0-3.0) mmol/L ABG Hemoglobin 10.4 L (11.7-17.4) g/dL ABG Carboxyhemoglobin 2.3 H (0.5-1.5) % POC ABG HHb (Measured) 0.7 (0.0-5.0) % ABG Methemoglobin 1.5 (0.0-3.0) % Ming Test Na ABG Potassium (3.6-5.2) mmol/L A-a O2 Difference 68.0 mm/Hg Respiratory Index 0.6 Hgb O2 Saturation 95.5 (95.0-98.0) % Sodium 136 (132-148) mmol/l Chloride 99 (98-107) mmol/L Glucose (65-105) mg/dl Lactate (0.7-2.1) mmol/L Liter Flow Vent Mode Bipap Mechanical Rate 12 FiO2 35.0 % Inspiratory BiPAP 14 Expiratory BiPAP 6 Crit Value Called To Crit Value Called By Crit Value Read Back Blood Gas Notified Time Potassium 3.9 (3.6-5.2) mmol/L Carbon Dioxide 26 (22-30) mmol/L Anion Gap 15 (10-20) BUN 36 H (7-17) mg/dL Creatinine 1.4 H (0.7-1.2) MG/DL Est GFR ( Amer) 47 Est GFR (Non-Af Amer) 38 POC Glucose (mg/dL) 127 H (65-110) mg/dL Random Glucose 144 H (65-105) mg/dL Calcium 8.6 (8.6-10.4) mg/dl Phosphorus 5.7 H (2.5-4.5) mg/dL Magnesium 1.7 (1.6-2.3) mg/dL Total Bilirubin 0.7 (0.2-1.3) mg/dL AST 25 (14-36) U/L ALT 22 (9-52) U/L Alkaline Phosphatase 107 (38-126) U/L Total Protein 6.1 L (6.3-8.3) g/dL Albumin 2.7 L (3.5-5.0) g/dL Globulin 3.4 (2.2-3.9) gm/dL Albumin/Globulin Ratio 0.8 L (1.0-2.1) Arterial Blood Potassium (3.6-5.2) mmol/L 05/02/17 05/02/17 05/02/17 Range/Units 21:44 21:44 21:44 WBC 38.8 H* (4.8-10.8) K/uL RBC 3.77 L (3.80-5.20) Mil/uL Hgb 9.8 L (11.0-16.0) g/dL Hct 31.7 L (34.0-47.0) % MCV 84.1 (81.0-99.0) fL MCH 26.1 L (27.0-31.0) pg MCHC 31.0 L (33.0-37.0) g/dL RDW 18.3 H (11.5-14.5) % Plt Count 408 H (130-400) K/uL MPV 7.6 (7.2-11.7) fL Neut % (Auto) 93.3 H (50.0-75.0) % Lymph % (Auto) 2.4 L (20.0-40.0) % Holmes % (Auto) 3.3 (0.0-10.0) % Eos % (Auto) 0.2 (0.0-4.0) % Baso % (Auto) 0.8 (0.0-2.0) % Neut # 36.2 H (1.8-7.0) K/uL Lymph # 0.9 L (1.0-4.3) K/uL Holmes # 1.3 H (0.0-0.8) K/uL Eos # 0.1 (0.0-0.7) K/uL Baso # 0.3 H (0.0-0.2) K/uL Neutrophils % (Manual) 93 H (50-75) % Band Neutrophils % (0-2) % Lymphocytes % (Manual) 5 L (20-40) % Monocytes % (Manual) 2 (0-10) % Platelet Estimate Slightly increased H (NORMAL) Large Platelets Present Hypochromasia (manual) Anisocytosis (manual) PT 23.8 H (9.7-12.2) SECONDS INR 2.1 APTT 27 D (21-34) SECONDS Puncture Site pCO2 (35-45) mm/Hg pO2 (80-100) mm/Hg HCO3 (21-28) mmol/L ABG pH (7.35-7.45) ABG Total CO2 (22-28) mmol/L ABG O2 Saturation (95-98) % ABG Base Excess (-2.0-3.0) mmol/L ABG Hemoglobin (11.7-17.4) g/dL ABG Carboxyhemoglobin (0.5-1.5) % POC ABG HHb (Measured) (0.0-5.0) % ABG Methemoglobin (0.0-3.0) % Ming Test ABG Potassium (3.6-5.2) mmol/L A-a O2 Difference mm/Hg Respiratory Index Hgb O2 Saturation (95.0-98.0) % Sodium 138 (132-148) mmol/l Chloride 97 L (98-107) mmol/L Glucose (65-105) mg/dl Lactate (0.7-2.1) mmol/L Liter Flow Vent Mode Mechanical Rate FiO2 % Inspiratory BiPAP Expiratory BiPAP Crit Value Called To Crit Value Called By Crit Value Read Back Blood Gas Notified Time Potassium 3.5 L (3.6-5.2) mmol/L Carbon Dioxide 26 (22-30) mmol/L Anion Gap 18 (10-20) BUN 38 H (7-17) mg/dL Creatinine 1.6 H (0.7-1.2) MG/DL Est GFR ( Amer) 40 Est GFR (Non-Af Amer) 33 POC Glucose (mg/dL) (65-110) mg/dL Random Glucose 118 H (65-105) mg/dL Calcium 8.2 L (8.6-10.4) mg/dl Phosphorus (2.5-4.5) mg/dL Magnesium (1.6-2.3) mg/dL Total Bilirubin 0.9 (0.2-1.3) mg/dL AST 22 (14-36) U/L ALT 23 (9-52) U/L Alkaline Phosphatase 104 (38-126) U/L Total Protein 6.2 L (6.3-8.3) g/dL Albumin 2.6 L (3.5-5.0) g/dL Globulin 3.6 (2.2-3.9) gm/dL Albumin/Globulin Ratio 0.7 L (1.0-2.1) Arterial Blood Potassium (3.6-5.2) mmol/L 05/02/17 Range/Units 21:30 WBC (4.8-10.8) K/uL RBC (3.80-5.20) Mil/uL Hgb (11.0-16.0) g/dL Hct (34.0-47.0) % MCV (81.0-99.0) fL MCH (27.0-31.0) pg MCHC (33.0-37.0) g/dL RDW (11.5-14.5) % Plt Count (130-400) K/uL MPV (7.2-11.7) fL Neut % (Auto) (50.0-75.0) % Lymph % (Auto) (20.0-40.0) % Holmes % (Auto) (0.0-10.0) % Eos % (Auto) (0.0-4.0) % Baso % (Auto) (0.0-2.0) % Neut # (1.8-7.0) K/uL Lymph # (1.0-4.3) K/uL Holmes # (0.0-0.8) K/uL Eos # (0.0-0.7) K/uL Baso # (0.0-0.2) K/uL Neutrophils % (Manual) (50-75) % Band Neutrophils % (0-2) % Lymphocytes % (Manual) (20-40) % Monocytes % (Manual) (0-10) % Platelet Estimate (NORMAL) Large Platelets Hypochromasia (manual) Anisocytosis (manual) PT (9.7-12.2) SECONDS INR APTT (21-34) SECONDS Puncture Site Lba pCO2 65 H (35-45) mm/Hg pO2 69 L (80-100) mm/Hg HCO3 23.9 (21-28) mmol/L ABG pH 7.24 L (7.35-7.45) ABG Total CO2 29.9 H (22-28) mmol/L ABG O2 Saturation 96.1 (95-98) % ABG Base Excess -1.0 (-2.0-3.0) mmol/L ABG Hemoglobin (11.7-17.4) g/dL ABG Carboxyhemoglobin (0.5-1.5) % POC ABG HHb (Measured) (0.0-5.0) % ABG Methemoglobin (0.0-3.0) % Ming Test Na ABG Potassium 3.4 L (3.6-5.2) mmol/L A-a O2 Difference 135.0 mm/Hg Respiratory Index 2.0 Hgb O2 Saturation (95.0-98.0) % Sodium 137.0 (132-148) mmol/l Chloride 102.0 (98-107) mmol/L Glucose 121 H (65-105) mg/dl Lactate 0.7 (0.7-2.1) mmol/L Liter Flow Vent Mode Bipap Mechanical Rate FiO2 40.0 % Inspiratory BiPAP 14 Expiratory BiPAP 6 Crit Value Called To Crit Value Called By Crit Value Read Back Blood Gas Notified Time Potassium (3.6-5.2) mmol/L Carbon Dioxide (22-30) mmol/L Anion Gap (10-20) BUN (7-17) mg/dL Creatinine (0.7-1.2) MG/DL Est GFR ( Amer) Est GFR (Non-Af Amer) POC Glucose (mg/dL) (65-110) mg/dL Random Glucose (65-105) mg/dL Calcium (8.6-10.4) mg/dl Phosphorus (2.5-4.5) mg/dL Magnesium (1.6-2.3) mg/dL Total Bilirubin (0.2-1.3) mg/dL AST (14-36) U/L ALT (9-52) U/L Alkaline Phosphatase (38-126) U/L Total Protein (6.3-8.3) g/dL Albumin (3.5-5.0) g/dL Globulin (2.2-3.9) gm/dL Albumin/Globulin Ratio (1.0-2.1) Arterial Blood Potassium 3.4 L (3.6-5.2) mmol/L Laboratory Results - last 24 hr 05/02/17 05/02/17 05/02/17 21:30 21:44 21:44 WBC 38.8 H* RBC 3.77 L Hgb 9.8 L Hct 31.7 L MCV 84.1 MCH 26.1 L MCHC 31.0 L RDW 18.3 H Plt Count 408 H MPV 7.6 Neut % (Auto) 93.3 H Lymph % (Auto) 2.4 L Holmes % (Auto) 3.3 Eos % (Auto) 0.2 Baso % (Auto) 0.8 Neut # 36.2 H Lymph # 0.9 L Holmes # 1.3 H Eos # 0.1 Baso # 0.3 H Neutrophils % (Manual) 93 H Band Neutrophils % Lymphocytes % (Manual) 5 L Monocytes % (Manual) 2 Platelet Estimate Slightly increased H Large Platelets Present Hypochromasia (manual) Anisocytosis (manual) PT INR APTT Puncture Site Lba pCO2 65 H pO2 69 L HCO3 23.9 ABG pH 7.24 L ABG Total CO2 29.9 H ABG O2 Saturation 96.1 ABG Base Excess -1.0 ABG Hemoglobin ABG Carboxyhemoglobin POC ABG HHb (Measured) ABG Methemoglobin Ming Test Na ABG Potassium 3.4 L A-a O2 Difference 135.0 Respiratory Index 2.0 Hgb O2 Saturation Sodium 137.0 138 Chloride 102.0 97 L Glucose 121 H Lactate 0.7 Liter Flow Vent Mode Bipap Mechanical Rate FiO2 40.0 Inspiratory BiPAP 14 Expiratory BiPAP 6 Crit Value Called To Crit Value Called By Crit Value Read Back Blood Gas Notified Time Potassium 3.5 L Carbon Dioxide 26 Anion Gap 18 BUN 38 H Creatinine 1.6 H Est GFR ( Amer) 40 Est GFR (Non-Af Amer) 33 POC Glucose (mg/dL) Random Glucose 118 H Calcium 8.2 L Phosphorus Magnesium Total Bilirubin 0.9 AST 22 ALT 23 Alkaline Phosphatase 104 Total Protein 6.2 L Albumin 2.6 L Globulin 3.6 Albumin/Globulin Ratio 0.7 L Arterial Blood Potassium 3.4 L 05/02/17 05/03/17 05/03/17 21:44 00:51 05:28 WBC RBC Hgb Hct MCV MCH MCHC RDW Plt Count MPV Neut % (Auto) Lymph % (Auto) Holmes % (Auto) Eos % (Auto) Baso % (Auto) Neut # Lymph # Holmes # Eos # Baso # Neutrophils % (Manual) Band Neutrophils % Lymphocytes % (Manual) Monocytes % (Manual) Platelet Estimate Large Platelets Hypochromasia (manual) Anisocytosis (manual) PT 23.8 H INR 2.1 APTT 27 D Puncture Site Rba pCO2 60 H pO2 107 H HCO3 23.7 ABG pH 7.25 L ABG Total CO2 28.1 H ABG O2 Saturation 99.3 H ABG Base Excess -1.6 ABG Hemoglobin 10.4 L ABG Carboxyhemoglobin 2.3 H POC ABG HHb (Measured) 0.7 ABG Methemoglobin 1.5 Ming Test Na ABG Potassium A-a O2 Difference 68.0 Respiratory Index 0.6 Hgb O2 Saturation 95.5 Sodium Chloride Glucose Lactate Liter Flow Vent Mode Bipap Mechanical Rate 12 FiO2 35.0 Inspiratory BiPAP 14 Expiratory BiPAP 6 Crit Value Called To Crit Value Called By Crit Value Read Back Blood Gas Notified Time Potassium Carbon Dioxide Anion Gap BUN Creatinine Est GFR ( Amer) Est GFR (Non-Af Amer) POC Glucose (mg/dL) 127 H Random Glucose Calcium Phosphorus Magnesium Total Bilirubin AST ALT Alkaline Phosphatase Total Protein Albumin Globulin Albumin/Globulin Ratio Arterial Blood Potassium 05/03/17 05/03/17 05/03/17 06:06 06:07 06:25 WBC 41.4 H* RBC 3.86 Hgb 9.9 L Hct 32.2 L MCV 83.4 MCH 25.7 L MCHC 30.8 L RDW 18.1 H Plt Count 436 H MPV 8.4 Neut % (Auto) 97.8 H Lymph % (Auto) 1.2 L Holmes % (Auto) 0.9 Eos % (Auto) 0.0 Baso % (Auto) 0.1 Neut # 40.5 H Lymph # 0.5 L Holmes # 0.4 Eos # 0.0 Baso # 0.0 Neutrophils % (Manual) 92 H Band Neutrophils % 7 H Lymphocytes % (Manual) 1 L Monocytes % (Manual) TEST NOT PERFORMED Platelet Estimate Slightly increased H Large Platelets Present Hypochromasia (manual) Slight Anisocytosis (manual) Slight PT INR APTT Puncture Site pCO2 pO2 HCO3 ABG pH ABG Total CO2 ABG O2 Saturation ABG Base Excess ABG Hemoglobin ABG Carboxyhemoglobin POC ABG HHb (Measured) ABG Methemoglobin Ming Test ABG Potassium A-a O2 Difference Respiratory Index Hgb O2 Saturation Sodium 136 Chloride 99 Glucose Lactate Liter Flow Vent Mode Mechanical Rate FiO2 Inspiratory BiPAP Expiratory BiPAP Crit Value Called To Crit Value Called By Crit Value Read Back Blood Gas Notified Time Potassium 3.9 Carbon Dioxide 26 Anion Gap 15 BUN 36 H Creatinine 1.4 H Est GFR ( Amer) 47 Est GFR (Non-Af Amer) 38 POC Glucose (mg/dL) 153 H Random Glucose 144 H Calcium 8.6 Phosphorus 5.7 H Magnesium 1.7 Total Bilirubin 0.7 AST 25 ALT 22 Alkaline Phosphatase 107 Total Protein 6.1 L Albumin 2.7 L Globulin 3.4 Albumin/Globulin Ratio 0.8 L Arterial Blood Potassium 05/03/17 11:10 WBC RBC Hgb Hct MCV MCH MCHC RDW Plt Count MPV Neut % (Auto) Lymph % (Auto) Holmes % (Auto) Eos % (Auto) Baso % (Auto) Neut # Lymph # Holmes # Eos # Baso # Neutrophils % (Manual) Band Neutrophils % Lymphocytes % (Manual) Monocytes % (Manual) Platelet Estimate Large Platelets Hypochromasia (manual) Anisocytosis (manual) PT INR APTT Puncture Site L/rad pCO2 52 H pO2 101 H HCO3 21.4 ABG pH 7.26 L ABG Total CO2 24.9 ABG O2 Saturation 98.3 H ABG Base Excess -4.4 L ABG Hemoglobin 14.3 ABG Carboxyhemoglobin 1.7 H POC ABG HHb (Measured) 1.6 ABG Methemoglobin 1.4 Ming Test Pos ABG Potassium A-a O2 Difference Respiratory Index Hgb O2 Saturation 95.3 Sodium Chloride Glucose Lactate Liter Flow 2.5 Vent Mode Mechanical Rate FiO2 Inspiratory BiPAP Expiratory BiPAP Crit Value Called To Dr alcaraz Crit Value Called By John rubi crt Crit Value Read Back Y Blood Gas Notified Time 1120 Potassium Carbon Dioxide Anion Gap BUN Creatinine Est GFR ( Amer) Est GFR (Non-Af Amer) POC Glucose (mg/dL) Random Glucose Calcium Phosphorus Magnesium Total Bilirubin AST ALT Alkaline Phosphatase Total Protein Albumin Globulin Albumin/Globulin Ratio Arterial Blood Potassium Fingerstick Blood Sugar Results: 153 Review of Systems - Constitutional Constitutional: absent: Fever - Cardiovascular Cardiovascular: absent: Chest Pain, Dyspnea, Palpitations - Respiratory Respiratory: absent: Dyspnea - Gastrointestinal Gastrointestinal: absent: Abdominal Pain, Constipation, Diarrhea, Nausea, Vomiting - Neurological Neurological: absent: Headaches Critical Care Progress Note - Nutrition Nutrition: Nutrition Category Date Time Status Liquid Diet [DIET] Diets 05/03/17 Breakfast Active Assessment/Plan - Assessment and Plan (Free Text) Assessment: 60-year-old female with history of anxiety, depression, chronic back pain, possible obstructive sleep apnea, COPD, was brought in by the family members because of altered mental status. Patient is hypotensive and septic. Patient has sacral wound, likely cause of sepsis- will be debrided as per surgical team. Neuro: - Patient is more alert and oriented today. AOx3 Pulm: CO2 retention with acute exacerbation secondary to sepsis - On BiPAP at night. Trial of NC at 2.5L - Duonebs - Monitor ABG CV: hypotensive - secondary to sepsis - IV Fluid and Dopamine Endo: no acute issues GI: no acute issues - Pepcid daily : no acute issues - UA: 1+ protein & blood, 4 Urobilinogen, 23 WBC, 8 RBC, Few bacteria. Heme: - Monitor H/H Renal: - Elevated BUN/Cr--> decreasing (05/03/17), 36/1.4 - Monitor renal function ID: Sepsis, leukocytosis, bandemia - ID consulted: Dr. Ornelas, help appreciated - Sacral wound- Gram negative lamberto, Group C strep - Surgery consulted: Dr. Almaraz, help appreciated - Primaxin, Vanco, Flagyl - C. Diff: f/u Prophylaxis: - DVT: SCDs - GI: Pepcid daily - PT/OT <Minda Reyes - Last Filed: 05/03/17 19:53> CCU Objective - Vital Signs / Intake & Output Vital Signs (Last 4 hours): Vital Signs Temp Pulse Resp BP Pulse Ox 05/03/17 19:00 85 26 H 89 L 05/03/17 18:55 98.2 F 85 19 97/47 L 88 L 05/03/17 18:49 86 19 98/49 L 91 L 05/03/17 18:33 87 15 104/56 L 91 L 05/03/17 18:30 98.2 F 05/03/17 18:22 84 22 92/17 L 91 L 05/03/17 18:19 85 23 76/22 L 91 L 05/03/17 18:03 81 17 127/65 91 L 05/03/17 18:00 98.2 F 82 15 93 L 05/03/17 17:48 81 14 115/66 92 L 05/03/17 17:45 98.5 F 05/03/17 17:33 82 15 119/65 91 L 05/03/17 17:30 98.3 F 05/03/17 17:18 83 15 109/58 L 91 L 05/03/17 17:15 98.1 F 05/03/17 17:03 79 15 113/63 90 L 05/03/17 17:00 98.0 F 80 16 109/61 97 05/03/17 16:37 80 16 109/61 90 L 05/03/17 16:07 82 17 108/56 L 90 L 05/03/17 16:00 97.0 F L 83 14 92 L Intake and Output (Last 8hrs): Intake & Output 05/03/17 05/03/17 05/03/17 06:59 14:59 22:59 Intake Total 1928.1 1449.4 1074.8 Output Total 570 465 290 Balance 1358.1 984.4 784.8 Weight 245 lb 3.2 oz Intake: IV 431 200 Intake, IV Amount 1497.1 1199.4 754.8 Right Distal Port 322.1 224.4 74.8 Internal Jugular Right Medial Port 1175 975 680 Internal Jugular Oral 250 120 Output: Urine 570 465 290 Urethral (Colmenares) 570 465 290 Other: # Bowel Movements 0 0 - Medications Active Medications: Active Medications Generic Name Dose Route Start Last Admin Trade Name Freq PRN Reason Stop Dose Admin Albuterol/Ipratropium 3 ml 05/03/17 02:00 05/03/17 14:42 Duoneb 3 Mg/0.5 Mg (3 Ml) Ud INH 3 ml RQ6 RIK Administration Famotidine 20 mg 05/02/17 22:00 05/03/17 09:49 Pepcid IVP 20 mg DAILY RIK Administration Sodium Chloride 1,000 mls @ 150 mls/hr 05/02/17 20:45 05/03/17 18:03 Sodium Chloride 0.9% IV 150 mls/hr .[id number] RIK Administration Vancomycin HCl 1 gm/ Sodium 250 mls @ 166.7 mls/hr 05/03/17 09:00 05/03/17 09 :48 Chloride IVPB 166.7 mls/hr Q24H RIK Administration Metronidazole 250 mg/ 50 mls @ 100 mls/hr 05/02/17 22:30 05/03/17 14:30 Miscellaneous IVPB 100 mls/hr Q8 RIK Administration Dopamine HCl/Dextrose 400 mg in 250 mls @ 8.301 mls/hr 05/03/17 08:30 18:08 Dopamine 400mg/250ml D5w IV 2 mcg/kg/min .Q24H PRN 8.301 mls/hr Protocol Titration 2 MCG/KG/MIN Imipenem/Cilastatin Sodium 500 100 mls @ 100 mls/hr 05/03/17 10:00 05/03/17 15:43 mg/ Sodium Chloride IVPB 100 mls/hr Q6H RIK Administration Methylprednisolone 20 mg 05/03/17 08:25 05/03/17 18:08 Solu-Medrol IVP 20 mg BID RIK Administration Phytonadione 5 mg 05/04/17 06:00 Vitamin K Tab PO 05/04/17 06:01 ONCE ONE Vancomycin HCl 125 mg 05/03/17 10:00 05/03/17 18:03 Vancocin (Oral Or Rectal Use) PO 125 mg QID RIK Administration - Patient Studies Lab Studies: Lab Studies 05/03/17 05/03/17 05/03/17 Range/Units 17:55 13:21 12:58 WBC (4.8-10.8) K/uL RBC (3.80-5.20) Mil/uL Hgb (11.0-16.0) g/dL Hct (34.0-47.0) % MCV (81.0-99.0) fL MCH (27.0-31.0) pg MCHC (33.0-37.0) g/dL RDW (11.5-14.5) % Plt Count (130-400) K/uL MPV (7.2-11.7) fL Neut % (Auto) (50.0-75.0) % Lymph % (Auto) (20.0-40.0) % Holmes % (Auto) (0.0-10.0) % Eos % (Auto) (0.0-4.0) % Baso % (Auto) (0.0-2.0) % Neut # (1.8-7.0) K/uL Lymph # (1.0-4.3) K/uL Holmes # (0.0-0.8) K/uL Eos # (0.0-0.7) K/uL Baso # (0.0-0.2) K/uL Neutrophils % (Manual) (50-75) % Band Neutrophils % (0-2) % Lymphocytes % (Manual) (20-40) % Monocytes % (Manual) (0-10) % Platelet Estimate (NORMAL) Large Platelets Hypochromasia (manual) Anisocytosis (manual) PT (9.7-12.2) SECONDS INR APTT (21-34) SECONDS Puncture Site pCO2 (35-45) mm/Hg pO2 (80-100) mm/Hg HCO3 (21-28) mmol/L ABG pH (7.35-7.45) ABG Total CO2 (22-28) mmol/L ABG O2 Saturation (95-98) % ABG Base Excess (-2.0-3.0) mmol/L ABG Hemoglobin (11.7-17.4) g/dL ABG Carboxyhemoglobin (0.5-1.5) % POC ABG HHb (Measured) (0.0-5.0) % ABG Methemoglobin (0.0-3.0) % Ming Test ABG Potassium (3.6-5.2) mmol/L A-a O2 Difference mm/Hg Respiratory Index Hgb O2 Saturation (95.0-98.0) % Sodium (132-148) mmol/l Chloride (98-107) mmol/L Glucose (65-105) mg/dl Lactate (0.7-2.1) mmol/L Liter Flow Vent Mode Mechanical Rate FiO2 % Inspiratory BiPAP Expiratory BiPAP Crit Value Called To Crit Value Called By Crit Value Read Back Blood Gas Notified Time Potassium (3.6-5.2) mmol/L Carbon Dioxide (22-30) mmol/L Anion Gap (10-20) BUN (7-17) mg/dL Creatinine (0.7-1.2) MG/DL Est GFR ( Amer) Est GFR (Non-Af Amer) POC Glucose (mg/dL) 137 H (65-110) mg/dL Random Glucose (65-105) mg/dL Calcium (8.6-10.4) mg/dl Phosphorus (2.5-4.5) mg/dL Magnesium (1.6-2.3) mg/dL Total Bilirubin (0.2-1.3) mg/dL AST (14-36) U/L ALT (9-52) U/L Alkaline Phosphatase (38-126) U/L Total Protein (6.3-8.3) g/dL Albumin (3.5-5.0) g/dL Globulin (2.2-3.9) gm/dL Albumin/Globulin Ratio (1.0-2.1) Arterial Blood Potassium (3.6-5.2) mmol/L Urine Opiates Screen Positive (NEGATIVE) Urine Methadone Screen Negative (NEGATIVE) Ur Barbiturates Screen Negative (NEGATIVE) Ur Phencyclidine Scrn Negative (NEGATIVE) Ur Amphetamines Screen Negative (NEGATIVE) U Benzodiazepines Scrn Negative (NEGATIVE) U Oth Cocaine Metabols Negative (NEGATIVE) U Cannabinoids Screen Negative (NEGATIVE) Blood Type A POSITIVE Blood Type Confirm A POSITIVE Antibody Screen Negative 05/03/17 05/03/17 05/03/17 Range/Units 11:55 11:10 06:25 WBC (4.8-10.8) K/uL RBC (3.80-5.20) Mil/uL Hgb (11.0-16.0) g/dL Hct (34.0-47.0) % MCV (81.0-99.0) fL MCH (27.0-31.0) pg MCHC (33.0-37.0) g/dL RDW (11.5-14.5) % Plt Count (130-400) K/uL MPV (7.2-11.7) fL Neut % (Auto) (50.0-75.0) % Lymph % (Auto) (20.0-40.0) % Holmes % (Auto) (0.0-10.0) % Eos % (Auto) (0.0-4.0) % Baso % (Auto) (0.0-2.0) % Neut # (1.8-7.0) K/uL Lymph # (1.0-4.3) K/uL Holmes # (0.0-0.8) K/uL Eos # (0.0-0.7) K/uL Baso # (0.0-0.2) K/uL Neutrophils % (Manual) (50-75) % Band Neutrophils % (0-2) % Lymphocytes % (Manual) (20-40) % Monocytes % (Manual) (0-10) % Platelet Estimate (NORMAL) Large Platelets Hypochromasia (manual) Anisocytosis (manual) PT (9.7-12.2) SECONDS INR APTT (21-34) SECONDS Puncture Site L/rad pCO2 52 H (35-45) mm/Hg pO2 101 H (80-100) mm/Hg HCO3 21.4 (21-28) mmol/L ABG pH 7.26 L (7.35-7.45) ABG Total CO2 24.9 (22-28) mmol/L ABG O2 Saturation 98.3 H (95-98) % ABG Base Excess -4.4 L (-2.0-3.0) mmol/L ABG Hemoglobin 14.3 (11.7-17.4) g/dL ABG Carboxyhemoglobin 1.7 H (0.5-1.5) % POC ABG HHb (Measured) 1.6 (0.0-5.0) % ABG Methemoglobin 1.4 (0.0-3.0) % Ming Test Pos ABG Potassium (3.6-5.2) mmol/L A-a O2 Difference mm/Hg Respiratory Index Hgb O2 Saturation 95.3 (95.0-98.0) % Sodium (132-148) mmol/l Chloride (98-107) mmol/L Glucose (65-105) mg/dl Lactate (0.7-2.1) mmol/L Liter Flow 2.5 Vent Mode Mechanical Rate FiO2 % Inspiratory BiPAP Expiratory BiPAP Crit Value Called To Dr alcaraz Crit Value Called By John rubi [facility] Crit Value Read Back Y Blood Gas Notified Time 1120 Potassium (3.6-5.2) mmol/L Carbon Dioxide (22-30) mmol/L Anion Gap (10-20) BUN (7-17) mg/dL Creatinine (0.7-1.2) MG/DL Est GFR ( Amer) Est GFR (Non-Af Amer) POC Glucose (mg/dL) 165 H 153 H (65-110) mg/dL Random Glucose (65-105) mg/dL Calcium (8.6-10.4) mg/dl Phosphorus (2.5-4.5) mg/dL Magnesium (1.6-2.3) mg/dL Total Bilirubin (0.2-1.3) mg/dL AST (14-36) U/L ALT (9-52) U/L Alkaline Phosphatase (38-126) U/L Total Protein (6.3-8.3) g/dL Albumin (3.5-5.0) g/dL Globulin (2.2-3.9) gm/dL Albumin/Globulin Ratio (1.0-2.1) Arterial Blood Potassium (3.6-5.2) mmol/L Urine Opiates Screen (NEGATIVE) Urine Methadone Screen (NEGATIVE) Ur Barbiturates Screen (NEGATIVE) Ur Phencyclidine Scrn (NEGATIVE) Ur Amphetamines Screen (NEGATIVE) U Benzodiazepines Scrn (NEGATIVE) U Oth Cocaine Metabols (NEGATIVE) U Cannabinoids Screen (NEGATIVE) Blood Type Blood Type Confirm Antibody Screen 05/03/17 05/03/17 05/03/17 Range/Units 06:07 06:06 05:28 WBC 41.4 H* (4.8-10.8) K/uL RBC 3.86 (3.80-5.20) Mil/uL Hgb 9.9 L (11.0-16.0) g/dL Hct 32.2 L (34.0-47.0) % MCV 83.4 (81.0-99.0) fL MCH 25.7 L (27.0-31.0) pg MCHC 30.8 L (33.0-37.0) g/dL RDW 18.1 H (11.5-14.5) % Plt Count 436 H (130-400) K/uL MPV 8.4 (7.2-11.7) fL Neut % (Auto) 97.8 H (50.0-75.0) % Lymph % (Auto) 1.2 L (20.0-40.0) % Holmes % (Auto) 0.9 (0.0-10.0) % Eos % (Auto) 0.0 (0.0-4.0) % Baso % (Auto) 0.1 (0.0-2.0) % Neut # 40.5 H (1.8-7.0) K/uL Lymph # 0.5 L (1.0-4.3) K/uL Holmes # 0.4 (0.0-0.8) K/uL Eos # 0.0 (0.0-0.7) K/uL Baso # 0.0 (0.0-0.2) K/uL Neutrophils % (Manual) 92 H (50-75) % Band Neutrophils % 7 H (0-2) % Lymphocytes % (Manual) 1 L (20-40) % Monocytes % (Manual) TEST NOT PERFORMED (0-10) % Platelet Estimate Slightly increased H (NORMAL) Large Platelets Present Hypochromasia (manual) Slight Anisocytosis (manual) Slight PT (9.7-12.2) SECONDS INR APTT (21-34) SECONDS Puncture Site Rba pCO2 60 H (35-45) mm/Hg pO2 107 H (80-100) mm/Hg HCO3 23.7 (21-28) mmol/L ABG pH 7.25 L (7.35-7.45) ABG Total CO2 28.1 H (22-28) mmol/L ABG O2 Saturation 99.3 H (95-98) % ABG Base Excess -1.6 (-2.0-3.0) mmol/L ABG Hemoglobin 10.4 L (11.7-17.4) g/dL ABG Carboxyhemoglobin 2.3 H (0.5-1.5) % POC ABG HHb (Measured) 0.7 (0.0-5.0) % ABG Methemoglobin 1.5 (0.0-3.0) % Ming Test Na ABG Potassium (3.6-5.2) mmol/L A-a O2 Difference 68.0 mm/Hg Respiratory Index 0.6 Hgb O2 Saturation 95.5 (95.0-98.0) % Sodium 136 (132-148) mmol/l Chloride 99 (98-107) mmol/L Glucose (65-105) mg/dl Lactate (0.7-2.1) mmol/L Liter Flow Vent Mode Bipap Mechanical Rate 12 FiO2 35.0 % Inspiratory BiPAP 14 Expiratory BiPAP 6 Crit Value Called To Crit Value Called By Crit Value Read Back Blood Gas Notified Time Potassium 3.9 (3.6-5.2) mmol/L Carbon Dioxide 26 (22-30) mmol/L Anion Gap 15 (10-20) BUN 36 H (7-17) mg/dL Creatinine 1.4 H (0.7-1.2) MG/DL Est GFR ( Amer) 47 Est GFR (Non-Af Amer) 38 POC Glucose (mg/dL) (65-110) mg/dL Random Glucose 144 H (65-105) mg/dL Calcium 8.6 (8.6-10.4) mg/dl Phosphorus 5.7 H (2.5-4.5) mg/dL Magnesium 1.7 (1.6-2.3) mg/dL Total Bilirubin 0.7 (0.2-1.3) mg/dL AST 25 (14-36) U/L ALT 22 (9-52) U/L Alkaline Phosphatase 107 (38-126) U/L Total Protein 6.1 L (6.3-8.3) g/dL Albumin 2.7 L (3.5-5.0) g/dL Globulin 3.4 (2.2-3.9) gm/dL Albumin/Globulin Ratio 0.8 L (1.0-2.1) Arterial Blood Potassium (3.6-5.2) mmol/L Urine Opiates Screen (NEGATIVE) Urine Methadone Screen (NEGATIVE) Ur Barbiturates Screen (NEGATIVE) Ur Phencyclidine Scrn (NEGATIVE) Ur Amphetamines Screen (NEGATIVE) U Benzodiazepines Scrn (NEGATIVE) U Oth Cocaine Metabols (NEGATIVE) U Cannabinoids Screen (NEGATIVE) Blood Type Blood Type Confirm Antibody Screen 05/03/17 05/02/17 05/02/17 Range/Units 00:51 21:44 21:44 WBC (4.8-10.8) K/uL RBC (3.80-5.20) Mil/uL Hgb (11.0-16.0) g/dL Hct (34.0-47.0) % MCV (81.0-99.0) fL MCH (27.0-31.0) pg MCHC (33.0-37.0) g/dL RDW (11.5-14.5) % Plt Count (130-400) K/uL MPV (7.2-11.7) fL Neut % (Auto) (50.0-75.0) % Lymph % (Auto) (20.0-40.0) % Holmes % (Auto) (0.0-10.0) % Eos % (Auto) (0.0-4.0) % Baso % (Auto) (0.0-2.0) % Neut # (1.8-7.0) K/uL Lymph # (1.0-4.3) K/uL Holmes # (0.0-0.8) K/uL Eos # (0.0-0.7) K/uL Baso # (0.0-0.2) K/uL Neutrophils % (Manual) (50-75) % Band Neutrophils % (0-2) % Lymphocytes % (Manual) (20-40) % Monocytes % (Manual) (0-10) % Platelet Estimate (NORMAL) Large Platelets Hypochromasia (manual) Anisocytosis (manual) PT 23.8 H (9.7-12.2) SECONDS INR 2.1 APTT 27 D (21-34) SECONDS Puncture Site pCO2 (35-45) mm/Hg pO2 (80-100) mm/Hg HCO3 (21-28) mmol/L ABG pH (7.35-7.45) ABG Total CO2 (22-28) mmol/L ABG O2 Saturation (95-98) % ABG Base Excess (-2.0-3.0) mmol/L ABG Hemoglobin (11.7-17.4) g/dL ABG Carboxyhemoglobin (0.5-1.5) % POC ABG HHb (Measured) (0.0-5.0) % ABG Methemoglobin (0.0-3.0) % Ming Test ABG Potassium (3.6-5.2) mmol/L A-a O2 Difference mm/Hg Respiratory Index Hgb O2 Saturation (95.0-98.0) % Sodium 138 (132-148) mmol/l Chloride 97 L (98-107) mmol/L Glucose (65-105) mg/dl Lactate (0.7-2.1) mmol/L Liter Flow Vent Mode Mechanical Rate FiO2 % Inspiratory BiPAP Expiratory BiPAP Crit Value Called To Crit Value Called By Crit Value Read Back Blood Gas Notified Time Potassium 3.5 L (3.6-5.2) mmol/L Carbon Dioxide 26 (22-30) mmol/L Anion Gap 18 (10-20) BUN 38 H (7-17) mg/dL Creatinine 1.6 H (0.7-1.2) MG/DL Est GFR ( Amer) 40 Est GFR (Non-Af Amer) 33 POC Glucose (mg/dL) 127 H (65-110) mg/dL Random Glucose 118 H (65-105) mg/dL Calcium 8.2 L (8.6-10.4) mg/dl Phosphorus (2.5-4.5) mg/dL Magnesium (1.6-2.3) mg/dL Total Bilirubin 0.9 (0.2-1.3) mg/dL AST 22 (14-36) U/L ALT 23 (9-52) U/L Alkaline Phosphatase 104 (38-126) U/L Total Protein 6.2 L (6.3-8.3) g/dL Albumin 2.6 L (3.5-5.0) g/dL Globulin 3.6 (2.2-3.9) gm/dL Albumin/Globulin Ratio 0.7 L (1.0-2.1) Arterial Blood Potassium (3.6-5.2) mmol/L Urine Opiates Screen (NEGATIVE) Urine Methadone Screen (NEGATIVE) Ur Barbiturates Screen (NEGATIVE) Ur Phencyclidine Scrn (NEGATIVE) Ur Amphetamines Screen (NEGATIVE) U Benzodiazepines Scrn (NEGATIVE) U Oth Cocaine Metabols (NEGATIVE) U Cannabinoids Screen (NEGATIVE) Blood Type Blood Type Confirm Antibody Screen 05/02/17 05/02/17 Range/Units 21:44 21:30 WBC 38.8 H* (4.8-10.8) K/uL RBC 3.77 L (3.80-5.20) Mil/uL Hgb 9.8 L (11.0-16.0) g/dL Hct 31.7 L (34.0-47.0) % MCV 84.1 (81.0-99.0) fL MCH 26.1 L (27.0-31.0) pg MCHC 31.0 L (33.0-37.0) g/dL RDW 18.3 H (11.5-14.5) % Plt Count 408 H (130-400) K/uL MPV 7.6 (7.2-11.7) fL Neut % (Auto) 93.3 H (50.0-75.0) % Lymph % (Auto) 2.4 L (20.0-40.0) % Holmes % (Auto) 3.3 (0.0-10.0) % Eos % (Auto) 0.2 (0.0-4.0) % Baso % (Auto) 0.8 (0.0-2.0) % Neut # 36.2 H (1.8-7.0) K/uL Lymph # 0.9 L (1.0-4.3) K/uL Holmes # 1.3 H (0.0-0.8) K/uL Eos # 0.1 (0.0-0.7) K/uL Baso # 0.3 H (0.0-0.2) K/uL Neutrophils % (Manual) 93 H (50-75) % Band Neutrophils % (0-2) % Lymphocytes % (Manual) 5 L (20-40) % Monocytes % (Manual) 2 (0-10) % Platelet Estimate Slightly increased H (NORMAL) Large Platelets Present Hypochromasia (manual) Anisocytosis (manual) PT (9.7-12.2) SECONDS INR APTT (21-34) SECONDS Puncture Site Lba pCO2 65 H (35-45) mm/Hg pO2 69 L (80-100) mm/Hg HCO3 23.9 (21-28) mmol/L ABG pH 7.24 L (7.35-7.45) ABG Total CO2 29.9 H (22-28) mmol/L ABG O2 Saturation 96.1 (95-98) % ABG Base Excess -1.0 (-2.0-3.0) mmol/L ABG Hemoglobin (11.7-17.4) g/dL ABG Carboxyhemoglobin (0.5-1.5) % POC ABG HHb (Measured) (0.0-5.0) % ABG Methemoglobin (0.0-3.0) % Ming Test Na ABG Potassium 3.4 L (3.6-5.2) mmol/L A-a O2 Difference 135.0 mm/Hg Respiratory Index 2.0 Hgb O2 Saturation (95.0-98.0) % Sodium 137.0 (132-148) mmol/l Chloride 102.0 (98-107) mmol/L Glucose 121 H (65-105) mg/dl Lactate 0.7 (0.7-2.1) mmol/L Liter Flow Vent Mode Bipap Mechanical Rate FiO2 40.0 % Inspiratory BiPAP 14 Expiratory BiPAP 6 Crit Value Called To Crit Value Called By Crit Value Read Back Blood Gas Notified Time Potassium (3.6-5.2) mmol/L Carbon Dioxide (22-30) mmol/L Anion Gap (10-20) BUN (7-17) mg/dL Creatinine (0.7-1.2) MG/DL Est GFR ( Amer) Est GFR (Non-Af Amer) POC Glucose (mg/dL) (65-110) mg/dL Random Glucose (65-105) mg/dL Calcium (8.6-10.4) mg/dl Phosphorus (2.5-4.5) mg/dL Magnesium (1.6-2.3) mg/dL Total Bilirubin (0.2-1.3) mg/dL AST (14-36) U/L ALT (9-52) U/L Alkaline Phosphatase (38-126) U/L Total Protein (6.3-8.3) g/dL Albumin (3.5-5.0) g/dL Globulin (2.2-3.9) gm/dL Albumin/Globulin Ratio (1.0-2.1) Arterial Blood Potassium 3.4 L (3.6-5.2) mmol/L Urine Opiates Screen (NEGATIVE) Urine Methadone Screen (NEGATIVE) Ur Barbiturates Screen (NEGATIVE) Ur Phencyclidine Scrn (NEGATIVE) Ur Amphetamines Screen (NEGATIVE) U Benzodiazepines Scrn (NEGATIVE) U Oth Cocaine Metabols (NEGATIVE) U Cannabinoids Screen (NEGATIVE) Blood Type Blood Type Confirm Antibody Screen Laboratory Results - last 24 hr 05/02/17 05/02/17 05/02/17 21:30 21:44 21:44 WBC 38.8 H* RBC 3.77 L Hgb 9.8 L Hct 31.7 L MCV 84.1 MCH 26.1 L MCHC 31.0 L RDW 18.3 H Plt Count 408 H MPV 7.6 Neut % (Auto) 93.3 H Lymph % (Auto) 2.4 L Holmes % (Auto) 3.3 Eos % (Auto) 0.2 Baso % (Auto) 0.8 Neut # 36.2 H Lymph # 0.9 L Holmes # 1.3 H Eos # 0.1 Baso # 0.3 H Neutrophils % (Manual) 93 H Band Neutrophils % Lymphocytes % (Manual) 5 L Monocytes % (Manual) 2 Platelet Estimate Slightly increased H Large Platelets Present Hypochromasia (manual) Anisocytosis (manual) PT INR APTT Puncture Site Lba pCO2 65 H pO2 69 L HCO3 23.9 ABG pH 7.24 L ABG Total CO2 29.9 H ABG O2 Saturation 96.1 ABG Base Excess -1.0 ABG Hemoglobin ABG Carboxyhemoglobin POC ABG HHb (Measured) ABG Methemoglobin Ming Test Na ABG Potassium 3.4 L A-a O2 Difference 135.0 Respiratory Index 2.0 Hgb O2 Saturation Sodium 137.0 138 Chloride 102.0 97 L Glucose 121 H Lactate 0.7 Liter Flow Vent Mode Bipap Mechanical Rate FiO2 40.0 Inspiratory BiPAP 14 Expiratory BiPAP 6 Crit Value Called To Crit Value Called By Crit Value Read Back Blood Gas Notified Time Potassium 3.5 L Carbon Dioxide 26 Anion Gap 18 BUN 38 H Creatinine 1.6 H Est GFR ( Amer) 40 Est GFR (Non-Af Amer) 33 POC Glucose (mg/dL) Random Glucose 118 H Calcium 8.2 L Phosphorus Magnesium Total Bilirubin 0.9 AST 22 ALT 23 Alkaline Phosphatase 104 Total Protein 6.2 L Albumin 2.6 L Globulin 3.6 Albumin/Globulin Ratio 0.7 L Arterial Blood Potassium 3.4 L Urine Opiates Screen Urine Methadone Screen Ur Barbiturates Screen Ur Phencyclidine Scrn Ur Amphetamines Screen U Benzodiazepines Scrn U Oth Cocaine Metabols U Cannabinoids Screen Blood Type Blood Type Confirm Antibody Screen 05/02/17 05/03/17 05/03/17 21:44 00:51 05:28 WBC RBC Hgb Hct MCV MCH MCHC RDW Plt Count MPV Neut % (Auto) Lymph % (Auto) Holmes % (Auto) Eos % (Auto) Baso % (Auto) Neut # Lymph # Holmes # Eos # Baso # Neutrophils % (Manual) Band Neutrophils % Lymphocytes % (Manual) Monocytes % (Manual) Platelet Estimate Large Platelets Hypochromasia (manual) Anisocytosis (manual) PT 23.8 H INR 2.1 APTT 27 D Puncture Site Rba pCO2 60 H pO2 107 H HCO3 23.7 ABG pH 7.25 L ABG Total CO2 28.1 H ABG O2 Saturation 99.3 H ABG Base Excess -1.6 ABG Hemoglobin 10.4 L ABG Carboxyhemoglobin 2.3 H POC ABG HHb (Measured) 0.7 ABG Methemoglobin 1.5 Ming Test Na ABG Potassium A-a O2 Difference 68.0 Respiratory Index 0.6 Hgb O2 Saturation 95.5 Sodium Chloride Glucose Lactate Liter Flow Vent Mode Bipap Mechanical Rate 12 FiO2 35.0 Inspiratory BiPAP 14 Expiratory BiPAP 6 Crit Value Called To Crit Value Called By Crit Value Read Back Blood Gas Notified Time Potassium Carbon Dioxide Anion Gap BUN Creatinine Est GFR ( Amer) Est GFR (Non-Af Amer) POC Glucose (mg/dL) 127 H Random Glucose Calcium Phosphorus Magnesium Total Bilirubin AST ALT Alkaline Phosphatase Total Protein Albumin Globulin Albumin/Globulin Ratio Arterial Blood Potassium Urine Opiates Screen Urine Methadone Screen Ur Barbiturates Screen Ur Phencyclidine Scrn Ur Amphetamines Screen U Benzodiazepines Scrn U Oth Cocaine Metabols U Cannabinoids Screen Blood Type Blood Type Confirm Antibody Screen 05/03/17 05/03/17 05/03/17 06:06 06:07 06:25 WBC 41.4 H* RBC 3.86 Hgb 9.9 L Hct 32.2 L MCV 83.4 MCH 25.7 L MCHC 30.8 L RDW 18.1 H Plt Count 436 H MPV 8.4 Neut % (Auto) 97.8 H Lymph % (Auto) 1.2 L Holmes % (Auto) 0.9 Eos % (Auto) 0.0 Baso % (Auto) 0.1 Neut # 40.5 H Lymph # 0.5 L Holmes # 0.4 Eos # 0.0 Baso # 0.0 Neutrophils % (Manual) 92 H Band Neutrophils % 7 H Lymphocytes % (Manual) 1 L Monocytes % (Manual) TEST NOT PERFORMED Platelet Estimate Slightly increased H Large Platelets Present Hypochromasia (manual) Slight Anisocytosis (manual) Slight PT INR APTT Puncture Site pCO2 pO2 HCO3 ABG pH ABG Total CO2 ABG O2 Saturation ABG Base Excess ABG Hemoglobin ABG Carboxyhemoglobin POC ABG HHb (Measured) ABG Methemoglobin Ming Test ABG Potassium A-a O2 Difference Respiratory Index Hgb O2 Saturation Sodium 136 Chloride 99 Glucose Lactate Liter Flow Vent Mode Mechanical Rate FiO2 Inspiratory BiPAP Expiratory BiPAP Crit Value Called To Crit Value Called By Crit Value Read Back Blood Gas Notified Time Potassium 3.9 Carbon Dioxide 26 Anion Gap 15 BUN 36 H Creatinine 1.4 H Est GFR ( Amer) 47 Est GFR (Non-Af Amer) 38 POC Glucose (mg/dL) 153 H Random Glucose 144 H Calcium 8.6 Phosphorus 5.7 H Magnesium 1.7 Total Bilirubin 0.7 AST 25 ALT 22 Alkaline Phosphatase 107 Total Protein 6.1 L Albumin 2.7 L Globulin 3.4 Albumin/Globulin Ratio 0.8 L Arterial Blood Potassium Urine Opiates Screen Urine Methadone Screen Ur Barbiturates Screen Ur Phencyclidine Scrn Ur Amphetamines Screen U Benzodiazepines Scrn U Oth Cocaine Metabols U Cannabinoids Screen Blood Type Blood Type Confirm Antibody Screen 05/03/17 05/03/17 05/03/17 11:10 11:55 12:58 WBC RBC Hgb Hct MCV MCH MCHC RDW Plt Count MPV Neut % (Auto) Lymph % (Auto) Holmes % (Auto) Eos % (Auto) Baso % (Auto) Neut # Lymph # Holmes # Eos # Baso # Neutrophils % (Manual) Band Neutrophils % Lymphocytes % (Manual) Monocytes % (Manual) Platelet Estimate Large Platelets Hypochromasia (manual) Anisocytosis (manual) PT INR APTT Puncture Site L/rad pCO2 52 H pO2 101 H HCO3 21.4 ABG pH 7.26 L ABG Total CO2 24.9 ABG O2 Saturation 98.3 H ABG Base Excess -4.4 L ABG Hemoglobin 14.3 ABG Carboxyhemoglobin 1.7 H POC ABG HHb (Measured) 1.6 ABG Methemoglobin 1.4 Ming Test Pos ABG Potassium A-a O2 Difference Respiratory Index Hgb O2 Saturation 95.3 Sodium Chloride Glucose Lactate Liter Flow 2.5 Vent Mode Mechanical Rate FiO2 Inspiratory BiPAP Expiratory BiPAP Crit Value Called To Dr alcaraz Crit Value Called By John rubi roof bolter helper Crit Value Read Back Y Blood Gas Notified Time 1120 Potassium Carbon Dioxide Anion Gap BUN Creatinine Est GFR ( Amer) Est GFR (Non-Af Amer) POC Glucose (mg/dL) 165 H Random Glucose Calcium Phosphorus Magnesium Total Bilirubin AST ALT Alkaline Phosphatase Total Protein Albumin Globulin Albumin/Globulin Ratio Arterial Blood Potassium Urine Opiates Screen Positive Urine Methadone Screen Negative Ur Barbiturates Screen Negative Ur Phencyclidine Scrn Negative Ur Amphetamines Screen Negative U Benzodiazepines Scrn Negative U Oth Cocaine Metabols Negative U Cannabinoids Screen Negative Blood Type Blood Type Confirm Antibody Screen 05/03/17 05/03/17 13:21 17:55 WBC RBC Hgb Hct MCV MCH MCHC RDW Plt Count MPV Neut % (Auto) Lymph % (Auto) Holmes % (Auto) Eos % (Auto) Baso % (Auto) Neut # Lymph # Holmes # Eos # Baso # Neutrophils % (Manual) Band Neutrophils % Lymphocytes % (Manual) Monocytes % (Manual) Platelet Estimate Large Platelets Hypochromasia (manual) Anisocytosis (manual) PT INR APTT Puncture Site pCO2 pO2 HCO3 ABG pH ABG Total CO2 ABG O2 Saturation ABG Base Excess ABG Hemoglobin ABG Carboxyhemoglobin POC ABG HHb (Measured) ABG Methemoglobin Ming Test ABG Potassium A-a O2 Difference Respiratory Index Hgb O2 Saturation Sodium Chloride Glucose Lactate Liter Flow Vent Mode Mechanical Rate FiO2 Inspiratory BiPAP Expiratory BiPAP Crit Value Called To Crit Value Called By Crit Value Read Back Blood Gas Notified Time Potassium Carbon Dioxide Anion Gap BUN Creatinine Est GFR ( Amer) Est GFR (Non-Af Amer) POC Glucose (mg/dL) 137 H Random Glucose Calcium Phosphorus Magnesium Total Bilirubin AST ALT Alkaline Phosphatase Total Protein Albumin Globulin Albumin/Globulin Ratio Arterial Blood Potassium Urine Opiates Screen Urine Methadone Screen Ur Barbiturates Screen Ur Phencyclidine Scrn Ur Amphetamines Screen U Benzodiazepines Scrn U Oth Cocaine Metabols U Cannabinoids Screen Blood Type A POSITIVE Blood Type Confirm A POSITIVE Antibody Screen Negative Critical Care Progress Note - Nutrition Nutrition: Nutrition Category Date Time Status NPO Diet [DIET] Diets 05/03/17 Dinner Active Attending/Attestation - Attestation I have personally seen and examined this patient.: Yes I have fully participated in the care of the patient.: Yes I have reviewed all pertinent clinical information: Yes Notes (Text): 05/03/17 19:53 Patient has a severe infection. Sacral decubiti. Tunneling noted. Possible myonecrosis. Spoke to the infectious disease Spoke to the surgery. On antibiotic. Slight improvement in the overall prognosis. And oxygen is stable. Patient is otherwise critical.
--- NOTE | 2017-05-03 13:12 | CP.PCM.PN ---
Subjective - Date & Time of Evaluation Date of Evaluation: 05/03/17 Time of Evaluation: 11:20 - Subjective Subjective: General Surgery- Dr. Almaraz 60F hx CPOD, anxiety, depression, and chronic back pain COPD, brought into the hospital due to AMS. Surgery was consulted due to sacral decub ulcer. Ulcer identified as stage 4. Described as pain getting progressively worse. PMH: SOPD, anxiety, depression, chronic back pain PSH: R TKA, tonsillectomy, cholecystectomy SocialHx: former smoker 6 cigarettes per day quit 25 years ago. ALL: NKDA Objective - Vital Signs/Intake and Output Vital Signs (last 24 hours): Temp Pulse Resp BP Pulse Ox 98.6 F 78 16 104/53 L 95 05/03/17 08:00 05/03/17 11:07 05/03/17 11:07 05/03/17 11:07 05/03/17 11:07 Intake and Output: 05/03/17 05/03/17 06:59 18:59 Intake Total 2777.0 1124.4 Output Total 700 320 Balance 2077.0 804.4 - Medications Medications: Current Medications Albuterol/Ipratropium (Duoneb 3 Mg/0.5 Mg (3 Ml) Ud) 3 ml INH RQ6 [facility] Last Admin: 05/03/17 01:52 Dose: 3 ml Famotidine (Pepcid) 20 mg IVP DAILY [facility] Last Admin: 05/03/17 09:49 Dose: 20 mg Sodium Chloride (Sodium Chloride 0.9%) 1,000 mls @ 150 mls/hr IV .[id number] [facility] Last Admin: 05/03/17 10:56 Dose: Not Given Vancomycin HCl 1 gm/ Sodium (Chloride) 250 mls @ 166.7 mls/hr IVPB Q24H [facility] Last Admin: 05/03/17 09:48 Dose: 166.7 mls/hr Metronidazole 250 mg/ (Miscellaneous) 50 mls @ 100 mls/hr IVPB Q8 [facility] Last Admin: 05/03/17 05:33 Dose: 100 mls/hr Dopamine HCl/Dextrose (Dopamine 400mg/250ml D5w) 400 mg in 250 mls @ 8.301 mls/ hr IV .Q24H PRN; 2 MCG/KG/MIN PRN Reason: Protocol Last Admin: 05/03/17 08:17 Dose: 6 mcg/kg/min, 24.902 mls/hr Imipenem/Cilastatin Sodium 500 (mg/ Sodium Chloride) 100 mls @ 100 mls/hr IVPB Q6H [facility] Last Admin: 05/03/17 11:48 Dose: 100 mls/hr Methylprednisolone (Solu-Medrol) 20 mg IVP BID [facility] Last Admin: 05/03/17 09:49 Dose: 20 mg Vancomycin HCl (Vancocin (Oral Or Rectal Use)) 125 mg PO QID [facility] Last Admin: 05/03/17 10:01 Dose: 125 mg - Labs Labs: 05/03/17 06:07 05/03/17 06:06 PT 23.8 SECONDS (9.7-12.2) H 05/02/17 21:44 INR 2.1 05/02/17 21:44 APTT 27 SECONDS (21-34) D 05/02/17 21:44
--- NOTE | 2017-05-03 13:16 | CP.PCM.CON ---
<Yogi Bonner - Last Filed: 05/03/17 13:13> History of Present Illness - History of Present Illness History of Present Illness: General Surgery- Dr. Almaraz 60F hx CPOD, anxiety, depression, and chronic back pain COPD, brought into the hospital due to AMS. Surgery was consulted due to sacral decub ulcer. Ulcer identified as stage 4. Described as pain getting progressively worse. Denies: F/C CP N/V/D CANALES, changes in vision PMH: SOPD, anxiety, depression, chronic back pain PSH: R TKA, tonsillectomy, cholecystectomy SocialHx: former smoker 6 cigarettes per day quit 25 years ago. ALL: NKDA Review of Systems - Review of Systems All systems: reviewed and no additional remarkable complaints except Past Patient History - Past Medical History & Family History Past Medical History?: Yes - Past Social History Smoking Status: Light Smoker < 10 Cigarettes Daily - CARDIAC Hx Hypertension: Yes - PULMONARY Hx Pneumonia: Yes - NEUROLOGICAL Hx Neurological Disorder: No - HEENT Hx HEENT Problems: No - RENAL Hx Kidney Stones: Yes - ENDOCRINE/METABOLIC Hx Endocrine Disorders: No - HEMATOLOGICAL/ONCOLOGICAL Hx Blood Disorders: No - INTEGUMENTARY Other/Comment: Abdominal Fold reddened and weeping with foul smell - MUSCULOSKELETAL/RHEUMATOLOGICAL Hx Falls: Yes Hx Herniated Disk: Yes - GASTROINTESTINAL Hx Gastrointestinal Disorders: No - GENITOURINARY/GYNECOLOGICAL Hx Genitourinary Disorders: No - PSYCHIATRIC Hx Substance Use: No - SURGICAL HISTORY Hx Cholecystectomy: Yes - ANESTHESIA Hx Anesthesia: Yes Hx Anesthesia Reactions: No Hx Malignant Hyperthermia: No Meds Allergies/Adverse Reactions: Allergies Allergy/AdvReac Type Severity Reaction Status Date / Time No Known Allergies Allergy Verified 02/01/16 05:56 - Medications Medications: Current Medications Albuterol/Ipratropium (Duoneb 3 Mg/0.5 Mg (3 Ml) Ud) 3 ml INH RQ6 RIK Last Admin: 05/03/17 01:52 Dose: 3 ml Famotidine (Pepcid) 20 mg IVP DAILY ON LICENSE OF [facility] Last Admin: 05/03/17 09:49 Dose: 20 mg Sodium Chloride (Sodium Chloride 0.9%) 1,000 mls @ 150 mls/hr IV .Q6H40M ON LICENSE OF [facility] Last Admin: 05/03/17 10:56 Dose: Not Given Vancomycin HCl 1 gm/ Sodium (Chloride) 250 mls @ 166.7 mls/hr IVPB Q24H ON LICENSE OF [facility] Last Admin: 05/03/17 09:48 Dose: 166.7 mls/hr Metronidazole 250 mg/ (Miscellaneous) 50 mls @ 100 mls/hr IVPB Q8 ON LICENSE OF [facility] Last Admin: 05/03/17 05:33 Dose: 100 mls/hr Dopamine HCl/Dextrose (Dopamine 400mg/250ml D5w) 400 mg in 250 mls @ 8.301 mls/ hr IV .Q24H PRN; 2 MCG/KG/MIN PRN Reason: Protocol Last Admin: 05/03/17 08:17 Dose: 6 mcg/kg/min, 24.902 mls/hr Imipenem/Cilastatin Sodium 500 (mg/ Sodium Chloride) 100 mls @ 100 mls/hr IVPB Q6H ON LICENSE OF [facility] Last Admin: 05/03/17 11:48 Dose: 100 mls/hr Methylprednisolone (Solu-Medrol) 20 mg IVP BID ON LICENSE OF [facility] Last Admin: 05/03/17 09:49 Dose: 20 mg Vancomycin HCl (Vancocin (Oral Or Rectal Use)) 125 mg PO QID ON LICENSE OF [facility] Last Admin: 05/03/17 10:01 Dose: 125 mg Physical Exam - Constitutional Appears: No Acute Distress - ENT Exam ENT Exam: Mucous Membranes Moist - Respiratory Exam Respiratory Exam: NORMAL BREATHING PATTERN. absent: Accessory Muscle Use, Rales , Wheezes - Cardiovascular Exam Cardiovascular Exam: +S1, +S2 - GI/Abdominal Exam GI & Abdominal Exam: Soft. absent: Distended, Firm, Tenderness - Extremities Exam Extremities exam: Positive for: pedal edema - Back Exam Additional comments: Stage 4 sacral decubitus ulcer; opening 3x4cm. depth undetermined - Neurological Exam Neurological exam: Alert, Oriented x3 - Skin Skin Exam: Warm Results - Vital Signs Recent Vital Signs: Last Vital Signs Temp 98.0 F 05/03/17 12:00 Pulse 84 05/03/17 13:07 Resp 14 05/03/17 13:07 BP 105/45 L 05/03/17 13:07 Pulse Ox 95 05/03/17 13:07 - Labs Result Diagrams: 05/03/17 06:07 05/03/17 06:06 Labs: Laboratory Results - last 24 hr 05/02/17 05/02/17 05/02/17 21:30 21:44 21:44 WBC 38.8 H* RBC 3.77 L Hgb 9.8 L Hct 31.7 L MCV 84.1 MCH 26.1 L MCHC 31.0 L RDW 18.3 H Plt Count 408 H MPV 7.6 Neut % (Auto) 93.3 H Lymph % (Auto) 2.4 L Ada % (Auto) 3.3 Eos % (Auto) 0.2 Baso % (Auto) 0.8 Neut # 36.2 H Lymph # 0.9 L Ada # 1.3 H Eos # 0.1 Baso # 0.3 H Neutrophils % (Manual) 93 H Band Neutrophils % Lymphocytes % (Manual) 5 L Monocytes % (Manual) 2 Platelet Estimate Slightly increased H Large Platelets Present Hypochromasia (manual) Anisocytosis (manual) PT INR APTT Puncture Site Lba pCO2 65 H pO2 69 L HCO3 23.9 ABG pH 7.24 L ABG Total CO2 29.9 H ABG O2 Saturation 96.1 ABG Base Excess -1.0 ABG Hemoglobin ABG Carboxyhemoglobin POC ABG HHb (Measured) ABG Methemoglobin Ming Test Na ABG Potassium 3.4 L A-a O2 Difference 135.0 Respiratory Index 2.0 Hgb O2 Saturation Sodium 137.0 138 Chloride 102.0 97 L Glucose 121 H Lactate 0.7 Liter Flow Vent Mode Bipap Mechanical Rate FiO2 40.0 Inspiratory BiPAP 14 Expiratory BiPAP 6 Crit Value Called To Crit Value Called By Crit Value Read Back Blood Gas Notified Time Potassium 3.5 L Carbon Dioxide 26 Anion Gap 18 BUN 38 H Creatinine 1.6 H Est GFR ( Amer) 40 Est GFR (Non-Af Amer) 33 POC Glucose (mg/dL) Random Glucose 118 H Calcium 8.2 L Phosphorus Magnesium Total Bilirubin 0.9 AST 22 ALT 23 Alkaline Phosphatase 104 Total Protein 6.2 L Albumin 2.6 L Globulin 3.6 Albumin/Globulin Ratio 0.7 L Arterial Blood Potassium 3.4 L 05/02/17 05/03/17 05/03/17 21:44 00:51 05:28 WBC RBC Hgb Hct MCV MCH MCHC RDW Plt Count MPV Neut % (Auto) Lymph % (Auto) Ada % (Auto) Eos % (Auto) Baso % (Auto) Neut # Lymph # Ada # Eos # Baso # Neutrophils % (Manual) Band Neutrophils % Lymphocytes % (Manual) Monocytes % (Manual) Platelet Estimate Large Platelets Hypochromasia (manual) Anisocytosis (manual) PT 23.8 H INR 2.1 APTT 27 D Puncture Site Rba pCO2 60 H pO2 107 H HCO3 23.7 ABG pH 7.25 L ABG Total CO2 28.1 H ABG O2 Saturation 99.3 H ABG Base Excess -1.6 ABG Hemoglobin 10.4 L ABG Carboxyhemoglobin 2.3 H POC ABG HHb (Measured) 0.7 ABG Methemoglobin 1.5 Ming Test Na ABG Potassium A-a O2 Difference 68.0 Respiratory Index 0.6 Hgb O2 Saturation 95.5 Sodium Chloride Glucose Lactate Liter Flow Vent Mode Bipap Mechanical Rate 12 FiO2 35.0 Inspiratory BiPAP 14 Expiratory BiPAP 6 Crit Value Called To Crit Value Called By Crit Value Read Back Blood Gas Notified Time Potassium Carbon Dioxide Anion Gap BUN Creatinine Est GFR ( Amer) Est GFR (Non-Af Amer) POC Glucose (mg/dL) 127 H Random Glucose Calcium Phosphorus Magnesium Total Bilirubin AST ALT Alkaline Phosphatase Total Protein Albumin Globulin Albumin/Globulin Ratio Arterial Blood Potassium 05/03/17 05/03/17 05/03/17 06:06 06:07 06:25 WBC 41.4 H* RBC 3.86 Hgb 9.9 L Hct 32.2 L MCV 83.4 MCH 25.7 L MCHC 30.8 L RDW 18.1 H Plt Count 436 H MPV 8.4 Neut % (Auto) 97.8 H Lymph % (Auto) 1.2 L Ada % (Auto) 0.9 Eos % (Auto) 0.0 Baso % (Auto) 0.1 Neut # 40.5 H Lymph # 0.5 L Ada # 0.4 Eos # 0.0 Baso # 0.0 Neutrophils % (Manual) 92 H Band Neutrophils % 7 H Lymphocytes % (Manual) 1 L Monocytes % (Manual) TEST NOT PERFORMED Platelet Estimate Slightly increased H Large Platelets Present Hypochromasia (manual) Slight Anisocytosis (manual) Slight PT INR APTT Puncture Site pCO2 pO2 HCO3 ABG pH ABG Total CO2 ABG O2 Saturation ABG Base Excess ABG Hemoglobin ABG Carboxyhemoglobin POC ABG HHb (Measured) ABG Methemoglobin Ming Test ABG Potassium A-a O2 Difference Respiratory Index Hgb O2 Saturation Sodium 136 Chloride 99 Glucose Lactate Liter Flow Vent Mode Mechanical Rate FiO2 Inspiratory BiPAP Expiratory BiPAP Crit Value Called To Crit Value Called By Crit Value Read Back Blood Gas Notified Time Potassium 3.9 Carbon Dioxide 26 Anion Gap 15 BUN 36 H Creatinine 1.4 H Est GFR ( Amer) 47 Est GFR (Non-Af Amer) 38 POC Glucose (mg/dL) 153 H Random Glucose 144 H Calcium 8.6 Phosphorus 5.7 H Magnesium 1.7 Total Bilirubin 0.7 AST 25 ALT 22 Alkaline Phosphatase 107 Total Protein 6.1 L Albumin 2.7 L Globulin 3.4 Albumin/Globulin Ratio 0.8 L Arterial Blood Potassium 05/03/17 05/03/17 11:10 11:55 WBC RBC Hgb Hct MCV MCH MCHC RDW Plt Count MPV Neut % (Auto) Lymph % (Auto) Ada % (Auto) Eos % (Auto) Baso % (Auto) Neut # Lymph # Ada # Eos # Baso # Neutrophils % (Manual) Band Neutrophils % Lymphocytes % (Manual) Monocytes % (Manual) Platelet Estimate Large Platelets Hypochromasia (manual) Anisocytosis (manual) PT INR APTT Puncture Site L/rad pCO2 52 H pO2 101 H HCO3 21.4 ABG pH 7.26 L ABG Total CO2 24.9 ABG O2 Saturation 98.3 H ABG Base Excess -4.4 L ABG Hemoglobin 14.3 ABG Carboxyhemoglobin 1.7 H POC ABG HHb (Measured) 1.6 ABG Methemoglobin 1.4 Ming Test Pos ABG Potassium A-a O2 Difference Respiratory Index Hgb O2 Saturation 95.3 Sodium Chloride Glucose Lactate Liter Flow 2.5 Vent Mode Mechanical Rate FiO2 Inspiratory BiPAP Expiratory BiPAP Crit Value Called To Dr alcaraz Crit Value Called By John rubi crt Crit Value Read Back Y Blood Gas Notified Time 1120 Potassium Carbon Dioxide Anion Gap BUN Creatinine Est GFR ( Amer) Est GFR (Non-Af Amer) POC Glucose (mg/dL) 165 H Random Glucose Calcium Phosphorus Magnesium Total Bilirubin AST ALT Alkaline Phosphatase Total Protein Albumin Globulin Albumin/Globulin Ratio Arterial Blood Potassium Assessment & Plan - Assessment and Plan (Free Text) Assessment: 60F w/ Stage 4 sacral decub ulcer Plan: -Plan for OR tomorrow - NPO aftermidnight - IVF/Abx - Administer VitK & Transfuse 2u FFP * Repeat labs at 19:00 - further recs per Dr. Rufina Bonner PGY1 <Juan Almaraz - Last Filed: 05/03/17 14:04> Meds - Medications Medications: Current Medications Albuterol/Ipratropium (Duoneb 3 Mg/0.5 Mg (3 Ml) Ud) 3 ml INH RQ6 ON LICENSE OF [facility] Last Admin: 05/03/17 01:52 Dose: 3 ml Famotidine (Pepcid) 20 mg IVP DAILY ON LICENSE OF [facility] Last Admin: 05/03/17 09:49 Dose: 20 mg Sodium Chloride (Sodium Chloride 0.9%) 1,000 mls @ 150 mls/hr IV .Q6H40M ON LICENSE OF [facility] Last Admin: 05/03/17 10:56 Dose: Not Given Vancomycin HCl 1 gm/ Sodium (Chloride) 250 mls @ 166.7 mls/hr IVPB Q24H ON LICENSE OF [facility] Last Admin: 05/03/17 09:48 Dose: 166.7 mls/hr Metronidazole 250 mg/ (Miscellaneous) 50 mls @ 100 mls/hr IVPB Q8 ON LICENSE OF [facility] Last Admin: 05/03/17 05:33 Dose: 100 mls/hr Dopamine HCl/Dextrose (Dopamine 400mg/250ml D5w) 400 mg in 250 mls @ 8.301 mls/ hr IV .Q24H PRN; 2 MCG/KG/MIN PRN Reason: Protocol Last Admin: 05/03/17 08:17 Dose: 6 mcg/kg/min, 24.902 mls/hr Imipenem/Cilastatin Sodium 500 (mg/ Sodium Chloride) 100 mls @ 100 mls/hr IVPB Q6H ON LICENSE OF [facility] Last Admin: 05/03/17 11:48 Dose: 100 mls/hr Phytonadione 10 mg/ Sodium (Chloride) 51 mls @ 102 mls/hr IV ONCE ONE Stop: 05/03/17 14:14 Methylprednisolone (Solu-Medrol) 20 mg IVP BID ON LICENSE OF [facility] Last Admin: 05/03/17 09:49 Dose: 20 mg Vancomycin HCl (Vancocin (Oral Or Rectal Use)) 125 mg PO QID ON LICENSE OF [facility] Last Admin: 05/03/17 10:01 Dose: 125 mg Results - Vital Signs Recent Vital Signs: Last Vital Signs Temp 98.0 F 05/03/17 12:00 Pulse 84 05/03/17 13:07 Resp 14 05/03/17 13:07 BP 105/45 L 05/03/17 13:07 Pulse Ox 95 05/03/17 13:07 - Labs Result Diagrams: 05/03/17 06:07 05/03/17 06:06 Labs: Laboratory Results - last 24 hr 05/02/17 05/02/17 05/02/17 21:30 21:44 21:44 WBC 38.8 H* RBC 3.77 L Hgb 9.8 L Hct 31.7 L MCV 84.1 MCH 26.1 L MCHC 31.0 L RDW 18.3 H Plt Count 408 H MPV 7.6 Neut % (Auto) 93.3 H Lymph % (Auto) 2.4 L Ada % (Auto) 3.3 Eos % (Auto) 0.2 Baso % (Auto) 0.8 Neut # 36.2 H Lymph # 0.9 L Ada # 1.3 H Eos # 0.1 Baso # 0.3 H Neutrophils % (Manual) 93 H Band Neutrophils % Lymphocytes % (Manual) 5 L Monocytes % (Manual) 2 Platelet Estimate Slightly increased H Large Platelets Present Hypochromasia (manual) Anisocytosis (manual) PT INR APTT Puncture Site Lba pCO2 65 H pO2 69 L HCO3 23.9 ABG pH 7.24 L ABG Total CO2 29.9 H ABG O2 Saturation 96.1 ABG Base Excess -1.0 ABG Hemoglobin ABG Carboxyhemoglobin POC ABG HHb (Measured) ABG Methemoglobin Ming Test Na ABG Potassium 3.4 L A-a O2 Difference 135.0 Respiratory Index 2.0 Hgb O2 Saturation Sodium 137.0 138 Chloride 102.0 97 L Glucose 121 H Lactate 0.7 Liter Flow Vent Mode Bipap Mechanical Rate FiO2 40.0 Inspiratory BiPAP 14 Expiratory BiPAP 6 Crit Value Called To Crit Value Called By Crit Value Read Back Blood Gas Notified Time Potassium 3.5 L Carbon Dioxide 26 Anion Gap 18 BUN 38 H Creatinine 1.6 H Est GFR ( Amer) 40 Est GFR (Non-Af Amer) 33 POC Glucose (mg/dL) Random Glucose 118 H Calcium 8.2 L Phosphorus Magnesium Total Bilirubin 0.9 AST 22 ALT 23 Alkaline Phosphatase 104 Total Protein 6.2 L Albumin 2.6 L Globulin 3.6 Albumin/Globulin Ratio 0.7 L Arterial Blood Potassium 3.4 L Urine Methadone Screen Ur Barbiturates Screen Ur Phencyclidine Scrn Ur Amphetamines Screen U Benzodiazepines Scrn U Oth Cocaine Metabols U Cannabinoids Screen 05/02/17 05/03/17 05/03/17 21:44 00:51 05:28 WBC RBC Hgb Hct MCV MCH MCHC RDW Plt Count MPV Neut % (Auto) Lymph % (Auto) Ada % (Auto) Eos % (Auto) Baso % (Auto) Neut # Lymph # Ada # Eos # Baso # Neutrophils % (Manual) Band Neutrophils % Lymphocytes % (Manual) Monocytes % (Manual) Platelet Estimate Large Platelets Hypochromasia (manual) Anisocytosis (manual) PT 23.8 H INR 2.1 APTT 27 D Puncture Site Rba pCO2 60 H pO2 107 H HCO3 23.7 ABG pH 7.25 L ABG Total CO2 28.1 H ABG O2 Saturation 99.3 H ABG Base Excess -1.6 ABG Hemoglobin 10.4 L ABG Carboxyhemoglobin 2.3 H POC ABG HHb (Measured) 0.7 ABG Methemoglobin 1.5 Ming Test Na ABG Potassium A-a O2 Difference 68.0 Respiratory Index 0.6 Hgb O2 Saturation 95.5 Sodium Chloride Glucose Lactate Liter Flow Vent Mode Bipap Mechanical Rate 12 FiO2 35.0 Inspiratory BiPAP 14 Expiratory BiPAP 6 Crit Value Called To Crit Value Called By Crit Value Read Back Blood Gas Notified Time Potassium Carbon Dioxide Anion Gap BUN Creatinine Est GFR ( Amer) Est GFR (Non-Af Amer) POC Glucose (mg/dL) 127 H Random Glucose Calcium Phosphorus Magnesium Total Bilirubin AST ALT Alkaline Phosphatase Total Protein Albumin Globulin Albumin/Globulin Ratio Arterial Blood Potassium Urine Methadone Screen Ur Barbiturates Screen Ur Phencyclidine Scrn Ur Amphetamines Screen U Benzodiazepines Scrn U Oth Cocaine Metabols U Cannabinoids Screen 05/03/17 05/03/17 05/03/17 06:06 06:07 06:25 WBC 41.4 H* RBC 3.86 Hgb 9.9 L Hct 32.2 L MCV 83.4 MCH 25.7 L MCHC 30.8 L RDW 18.1 H Plt Count 436 H MPV 8.4 Neut % (Auto) 97.8 H Lymph % (Auto) 1.2 L Ada % (Auto) 0.9 Eos % (Auto) 0.0 Baso % (Auto) 0.1 Neut # 40.5 H Lymph # 0.5 L Ada # 0.4 Eos # 0.0 Baso # 0.0 Neutrophils % (Manual) 92 H Band Neutrophils % 7 H Lymphocytes % (Manual) 1 L Monocytes % (Manual) TEST NOT PERFORMED Platelet Estimate Slightly increased H Large Platelets Present Hypochromasia (manual) Slight Anisocytosis (manual) Slight PT INR APTT Puncture Site pCO2 pO2 HCO3 ABG pH ABG Total CO2 ABG O2 Saturation ABG Base Excess ABG Hemoglobin ABG Carboxyhemoglobin POC ABG HHb (Measured) ABG Methemoglobin Ming Test ABG Potassium A-a O2 Difference Respiratory Index Hgb O2 Saturation Sodium 136 Chloride 99 Glucose Lactate Liter Flow Vent Mode Mechanical Rate FiO2 Inspiratory BiPAP Expiratory BiPAP Crit Value Called To Crit Value Called By Crit Value Read Back Blood Gas Notified Time Potassium 3.9 Carbon Dioxide 26 Anion Gap 15 BUN 36 H Creatinine 1.4 H Est GFR ( Amer) 47 Est GFR (Non-Af Amer) 38 POC Glucose (mg/dL) 153 H Random Glucose 144 H Calcium 8.6 Phosphorus 5.7 H Magnesium 1.7 Total Bilirubin 0.7 AST 25 ALT 22 Alkaline Phosphatase 107 Total Protein 6.1 L Albumin 2.7 L Globulin 3.4 Albumin/Globulin Ratio 0.8 L Arterial Blood Potassium Urine Methadone Screen Ur Barbiturates Screen Ur Phencyclidine Scrn Ur Amphetamines Screen U Benzodiazepines Scrn U Oth Cocaine Metabols U Cannabinoids Screen 05/03/17 05/03/17 05/03/17 11:10 11:55 12:58 WBC RBC Hgb Hct MCV MCH MCHC RDW Plt Count MPV Neut % (Auto) Lymph % (Auto) Ada % (Auto) Eos % (Auto) Baso % (Auto) Neut # Lymph # Ada # Eos # Baso # Neutrophils % (Manual) Band Neutrophils % Lymphocytes % (Manual) Monocytes % (Manual) Platelet Estimate Large Platelets Hypochromasia (manual) Anisocytosis (manual) PT INR APTT Puncture Site L/rad pCO2 52 H pO2 101 H HCO3 21.4 ABG pH 7.26 L ABG Total CO2 24.9 ABG O2 Saturation 98.3 H ABG Base Excess -4.4 L ABG Hemoglobin 14.3 ABG Carboxyhemoglobin 1.7 H POC ABG HHb (Measured) 1.6 ABG Methemoglobin 1.4 Ming Test Pos ABG Potassium A-a O2 Difference Respiratory Index Hgb O2 Saturation 95.3 Sodium Chloride Glucose Lactate Liter Flow 2.5 Vent Mode Mechanical Rate FiO2 Inspiratory BiPAP Expiratory BiPAP Crit Value Called To Dr alcaraz Crit Value Called By John rubi [employer] manager Crit Value Read Back Y Blood Gas Notified Time 1120 Potassium Carbon Dioxide Anion Gap BUN Creatinine Est GFR ( Amer) Est GFR (Non-Af Amer) POC Glucose (mg/dL) 165 H Random Glucose Calcium Phosphorus Magnesium Total Bilirubin AST ALT Alkaline Phosphatase Total Protein Albumin Globulin Albumin/Globulin Ratio Arterial Blood Potassium Urine Methadone Screen Negative Ur Barbiturates Screen Negative Ur Phencyclidine Scrn Negative Ur Amphetamines Screen Negative U Benzodiazepines Scrn Negative U Oth Cocaine Metabols Negative U Cannabinoids Screen Negative Attending/Attestation - Attestation I have personally seen and examined this patient.: Yes I have fully participated in the care of the patient.: Yes I have reviewed all pertinent clinical information: Yes Notes (Text): 05/03/17 14:02 Pt was seen and examined at bedside on 05/03/17 Agree with above note and assessment Pt with Stage 4 Sacral with self draining Gluteal abscess with coagulopathy and sepsis INR 2.1 Pt would need correction of coagulopathy OR for Debridement of Sacral ulcer and wound vac placement FFP, NPO, IVF Consent Plan d.w pt and primary team in detail. Risk and benefit explained in detail.
--- NOTE | 2017-05-03 13:33 | CP.PCM.HP ---
Past Patient History - Past Medical History & Family History Past Medical History?: Yes - Past Social History Smoking Status: Light Smoker < 10 Cigarettes Daily - CARDIAC Hx Hypertension: Yes - PULMONARY Hx Pneumonia: Yes - NEUROLOGICAL Hx Neurological Disorder: No - HEENT Hx HEENT Problems: No - RENAL Hx Kidney Stones: Yes - ENDOCRINE/METABOLIC Hx Endocrine Disorders: No - HEMATOLOGICAL/ONCOLOGICAL Hx Blood Disorders: No - INTEGUMENTARY Other/Comment: Abdominal Fold reddened and weeping with foul smell - MUSCULOSKELETAL/RHEUMATOLOGICAL Hx Falls: Yes Hx Herniated Disk: Yes - GASTROINTESTINAL Hx Gastrointestinal Disorders: No - GENITOURINARY/GYNECOLOGICAL Hx Genitourinary Disorders: No - PSYCHIATRIC Hx Substance Use: No - SURGICAL HISTORY Hx Cholecystectomy: Yes - ANESTHESIA Hx Anesthesia: Yes Hx Anesthesia Reactions: No Hx Malignant Hyperthermia: No Meds Allergies/Adverse Reactions: Allergies Allergy/AdvReac Type Severity Reaction Status Date / Time No Known Allergies Allergy Verified 02/01/16 05:56 Physical Exam - Constitutional Appears: Well - Head Exam Head Exam: ATRAUMATIC, NORMAL INSPECTION, NORMOCEPHALIC - Eye Exam Eye Exam: EOMI, Normal appearance, PERRL Pupil Exam: NORMAL ACCOMODATION, PERRL - ENT Exam ENT Exam: Mucous Membranes Moist, Normal Exam - Neck Exam Neck exam: Positive for: Normal Inspection - Respiratory Exam Respiratory Exam: Decreased Breath Sounds - Cardiovascular Exam Cardiovascular Exam: REGULAR RHYTHM, +S1, +S2 - GI/Abdominal Exam GI & Abdominal Exam: Diminished Bowel Sounds, Soft - Rectal Exam Rectal Exam: Deferred Results - Vital Signs Recent Vital Signs: Last Vital Signs Temp 98.0 F 05/03/17 12:00 Pulse 84 05/03/17 13:07 Resp 14 05/03/17 13:07 BP 105/45 L 05/03/17 13:07 Pulse Ox 95 05/03/17 13:07 - Labs Result Diagrams: 05/03/17 06:07 05/03/17 06:06 Labs: Laboratory Results - last 24 hr 05/02/17 05/02/17 05/02/17 21:30 21:44 21:44 WBC 38.8 H* RBC 3.77 L Hgb 9.8 L Hct 31.7 L MCV 84.1 MCH 26.1 L MCHC 31.0 L RDW 18.3 H Plt Count 408 H MPV 7.6 Neut % (Auto) 93.3 H Lymph % (Auto) 2.4 L [place] % (Auto) 3.3 Eos % (Auto) 0.2 Baso % (Auto) 0.8 Neut # 36.2 H Lymph # 0.9 L [place] # 1.3 H Eos # 0.1 Baso # 0.3 H Neutrophils % (Manual) 93 H Band Neutrophils % Lymphocytes % (Manual) 5 L Monocytes % (Manual) 2 Platelet Estimate Slightly increased H Large Platelets Present Hypochromasia (manual) Anisocytosis (manual) PT INR APTT Puncture Site Lba pCO2 65 H pO2 69 L HCO3 23.9 ABG pH 7.24 L ABG Total CO2 29.9 H ABG O2 Saturation 96.1 ABG Base Excess -1.0 ABG Hemoglobin ABG Carboxyhemoglobin POC ABG HHb (Measured) ABG Methemoglobin Ming Test Na ABG Potassium 3.4 L A-a O2 Difference 135.0 Respiratory Index 2.0 Hgb O2 Saturation Sodium 137.0 138 Chloride 102.0 97 L Glucose 121 H Lactate 0.7 Liter Flow Vent Mode Bipap Mechanical Rate FiO2 40.0 Inspiratory BiPAP 14 Expiratory BiPAP 6 Crit Value Called To Crit Value Called By Crit Value Read Back Blood Gas Notified Time Potassium 3.5 L Carbon Dioxide 26 Anion Gap 18 BUN 38 H Creatinine 1.6 H Est GFR ( Amer) 40 Est GFR (Non-Af Amer) 33 POC Glucose (mg/dL) Random Glucose 118 H Calcium 8.2 L Phosphorus Magnesium Total Bilirubin 0.9 AST 22 ALT 23 Alkaline Phosphatase 104 Total Protein 6.2 L Albumin 2.6 L Globulin 3.6 Albumin/Globulin Ratio 0.7 L Arterial Blood Potassium 3.4 L 05/02/17 05/03/17 05/03/17 21:44 00:51 05:28 WBC RBC Hgb Hct MCV MCH MCHC RDW Plt Count MPV Neut % (Auto) Lymph % (Auto) [place] % (Auto) Eos % (Auto) Baso % (Auto) Neut # Lymph # [place] # Eos # Baso # Neutrophils % (Manual) Band Neutrophils % Lymphocytes % (Manual) Monocytes % (Manual) Platelet Estimate Large Platelets Hypochromasia (manual) Anisocytosis (manual) PT 23.8 H INR 2.1 APTT 27 D Puncture Site Rba pCO2 60 H pO2 107 H HCO3 23.7 ABG pH 7.25 L ABG Total CO2 28.1 H ABG O2 Saturation 99.3 H ABG Base Excess -1.6 ABG Hemoglobin 10.4 L ABG Carboxyhemoglobin 2.3 H POC ABG HHb (Measured) 0.7 ABG Methemoglobin 1.5 Ming Test Na ABG Potassium A-a O2 Difference 68.0 Respiratory Index 0.6 Hgb O2 Saturation 95.5 Sodium Chloride Glucose Lactate Liter Flow Vent Mode Bipap Mechanical Rate 12 FiO2 35.0 Inspiratory BiPAP 14 Expiratory BiPAP 6 Crit Value Called To Crit Value Called By Crit Value Read Back Blood Gas Notified Time Potassium Carbon Dioxide Anion Gap BUN Creatinine Est GFR ( Amer) Est GFR (Non-Af Amer) POC Glucose (mg/dL) 127 H Random Glucose Calcium Phosphorus Magnesium Total Bilirubin AST ALT Alkaline Phosphatase Total Protein Albumin Globulin Albumin/Globulin Ratio Arterial Blood Potassium 05/03/17 05/03/17 05/03/17 06:06 06:07 06:25 WBC 41.4 H* RBC 3.86 Hgb 9.9 L Hct 32.2 L MCV 83.4 MCH 25.7 L MCHC 30.8 L RDW 18.1 H Plt Count 436 H MPV 8.4 Neut % (Auto) 97.8 H Lymph % (Auto) 1.2 L [place] % (Auto) 0.9 Eos % (Auto) 0.0 Baso % (Auto) 0.1 Neut # 40.5 H Lymph # 0.5 L [place] # 0.4 Eos # 0.0 Baso # 0.0 Neutrophils % (Manual) 92 H Band Neutrophils % 7 H Lymphocytes % (Manual) 1 L Monocytes % (Manual) TEST NOT PERFORMED Platelet Estimate Slightly increased H Large Platelets Present Hypochromasia (manual) Slight Anisocytosis (manual) Slight PT INR APTT Puncture Site pCO2 pO2 HCO3 ABG pH ABG Total CO2 ABG O2 Saturation ABG Base Excess ABG Hemoglobin ABG Carboxyhemoglobin POC ABG HHb (Measured) ABG Methemoglobin Ming Test ABG Potassium A-a O2 Difference Respiratory Index Hgb O2 Saturation Sodium 136 Chloride 99 Glucose Lactate Liter Flow Vent Mode Mechanical Rate FiO2 Inspiratory BiPAP Expiratory BiPAP Crit Value Called To Crit Value Called By Crit Value Read Back Blood Gas Notified Time Potassium 3.9 Carbon Dioxide 26 Anion Gap 15 BUN 36 H Creatinine 1.4 H Est GFR ( Amer) 47 Est GFR (Non-Af Amer) 38 POC Glucose (mg/dL) 153 H Random Glucose 144 H Calcium 8.6 Phosphorus 5.7 H Magnesium 1.7 Total Bilirubin 0.7 AST 25 ALT 22 Alkaline Phosphatase 107 Total Protein 6.1 L Albumin 2.7 L Globulin 3.4 Albumin/Globulin Ratio 0.8 L Arterial Blood Potassium 05/03/17 05/03/17 11:10 11:55 WBC RBC Hgb Hct MCV MCH MCHC RDW Plt Count MPV Neut % (Auto) Lymph % (Auto) [place] % (Auto) Eos % (Auto) Baso % (Auto) Neut # Lymph # [place] # Eos # Baso # Neutrophils % (Manual) Band Neutrophils % Lymphocytes % (Manual) Monocytes % (Manual) Platelet Estimate Large Platelets Hypochromasia (manual) Anisocytosis (manual) PT INR APTT Puncture Site L/rad pCO2 52 H pO2 101 H HCO3 21.4 ABG pH 7.26 L ABG Total CO2 24.9 ABG O2 Saturation 98.3 H ABG Base Excess -4.4 L ABG Hemoglobin 14.3 ABG Carboxyhemoglobin 1.7 H POC ABG HHb (Measured) 1.6 ABG Methemoglobin 1.4 Ming Test Pos ABG Potassium A-a O2 Difference Respiratory Index Hgb O2 Saturation 95.3 Sodium Chloride Glucose Lactate Liter Flow 2.5 Vent Mode Mechanical Rate FiO2 Inspiratory BiPAP Expiratory BiPAP Crit Value Called To Dr alcaraz Crit Value Called By John rubi crt Crit Value Read Back Y Blood Gas Notified Time 1120 Potassium Carbon Dioxide Anion Gap BUN Creatinine Est GFR ( Amer) Est GFR (Non-Af Amer) POC Glucose (mg/dL) 165 H Random Glucose Calcium Phosphorus Magnesium Total Bilirubin AST ALT Alkaline Phosphatase Total Protein Albumin Globulin Albumin/Globulin Ratio Arterial Blood Potassium
[2017-05-03] MEDS ORDERED: Phytonadione 10 mg/ml Inj (Adult) IV ONE (13:45)
[2017-05-03] MEDS ORDERED: Phytonadione 10 MG in Sodium Chloride 0.9% 50 ML IV ONE (13:45)
--- NOTE | 2017-05-03 17:13 | CP.PCM.CON ---
History of Present Illness - History of Present Illness History of Present Illness: Reason for consult: CO2 retention with exacerbation secondary to sepsis The patient is a 61 year old female with a past medical history of OPHELIA, COPD, who was brought to the emergency department yesterday by family due to altered mental status. As per family the patient had three days of worsening lethargy, and decreased PO intake. Upon admission she was hypotensive (BP 79/56) and was given 3L NS and Dopamine. She was then admitted to the ICU for septic shock and started on Vancomycin, Zosyn and dopamine drip. Today patient is lethargic with minimal response to questioning. Patient denied chest pain, abdominal pain f/c, n/v/d/c. PMHx: anxiety, depression, chronic back pain, OPHELIA, COPD, HTN, nephrolithiasis SHx: Right night knee replacement (2007), tonsillectomy, laparoscopic cholecystectomy Social Hx: denied ETOH and drug use, no current tobacco use (quit 30 years ago) Family hx: mother and sister- breast cancer, Allergies: NKDA CXR (05/02/17: Right internal jugular central venous catheter extends expected location of the SVC. Right lower lobe and medial left lower lobe atelectasis or pneumonia. Cardiomegaly. Elevation of the right hemidiaphragm. Review of Systems - Review of Systems Systems not reviewed;Unavailable: Altered Mental Status Past Patient History - Past Medical History & Family History Past Medical History?: Yes - Past Social History Smoking Status: Light Smoker < 10 Cigarettes Daily - CARDIAC Hx Hypertension: Yes - PULMONARY Hx Pneumonia: Yes - NEUROLOGICAL Hx Neurological Disorder: No - HEENT Hx HEENT Problems: No - RENAL Hx Kidney Stones: Yes - ENDOCRINE/METABOLIC Hx Endocrine Disorders: No - HEMATOLOGICAL/ONCOLOGICAL Hx Blood Disorders: No - INTEGUMENTARY Other/Comment: Abdominal Fold reddened and weeping with foul smell - MUSCULOSKELETAL/RHEUMATOLOGICAL Hx Falls: Yes Hx Herniated Disk: Yes - GASTROINTESTINAL Hx Gastrointestinal Disorders: No - GENITOURINARY/GYNECOLOGICAL Hx Genitourinary Disorders: No - PSYCHIATRIC Hx Substance Use: No - SURGICAL HISTORY Hx Cholecystectomy: Yes - ANESTHESIA Hx Anesthesia: Yes Hx Anesthesia Reactions: No Hx Malignant Hyperthermia: No Meds Allergies/Adverse Reactions: Allergies Allergy/AdvReac Type Severity Reaction Status Date / Time No Known Allergies Allergy Verified 02/01/16 05:56 - Medications Medications: Current Medications Albuterol/Ipratropium (Duoneb 3 Mg/0.5 Mg (3 Ml) Ud) 3 ml INH RQ6 [facility] Last Admin: 05/03/17 14:42 Dose: 3 ml Famotidine (Pepcid) 20 mg IVP DAILY [facility] Last Admin: 05/03/17 09:49 Dose: 20 mg Sodium Chloride (Sodium Chloride 0.9%) 1,000 mls @ 150 mls/hr IV .Q6H40M [facility] Last Admin: 05/03/17 10:56 Dose: Not Given Vancomycin HCl 1 gm/ Sodium (Chloride) 250 mls @ 166.7 mls/hr IVPB Q24H [facility] Last Admin: 05/03/17 09:48 Dose: 166.7 mls/hr Metronidazole 250 mg/ (Miscellaneous) 50 mls @ 100 mls/hr IVPB Q8 [facility] Last Admin: 05/03/17 14:30 Dose: 100 mls/hr Dopamine HCl/Dextrose (Dopamine 400mg/250ml D5w) 400 mg in 250 mls @ 8.301 mls/ hr IV .Q24H PRN; 2 MCG/KG/MIN PRN Reason: Protocol Last Titration: 05/03/17 15:46 Dose: 4 mcg/kg/min, 16.602 mls/hr Imipenem/Cilastatin Sodium 500 (mg/ Sodium Chloride) 100 mls @ 100 mls/hr IVPB Q6H [facility] Last Admin: 05/03/17 15:43 Dose: 100 mls/hr Methylprednisolone (Solu-Medrol) 20 mg IVP BID [facility] Last Admin: 05/03/17 09:49 Dose: 20 mg Phytonadione (Vitamin K Tab) 5 mg PO ONCE ONE Stop: 05/04/17 06:01 Vancomycin HCl (Vancocin (Oral Or Rectal Use)) 125 mg PO QID [facility] Last Admin: 05/03/17 14:31 Dose: Not Given Physical Exam - Head Exam Head Exam: ATRAUMATIC, NORMOCEPHALIC - Eye Exam Eye Exam: Normal appearance - ENT Exam ENT Exam: Mucous Membranes Moist - Neck Exam Neck exam: Positive for: Normal Inspection - Respiratory Exam Respiratory Exam: Decreased Breath Sounds - Cardiovascular Exam Cardiovascular Exam: REGULAR RHYTHM Results - Vital Signs Recent Vital Signs: Last Vital Signs Temp 97.0 F L 05/03/17 16:00 Pulse 82 08/14/17 16:07 Resp 17 05/03/17 16:07 BP 108/56 L 05/03/17 16:07 Pulse Ox 90 L 05/03/17 16:07 - Labs Result Diagrams: 05/03/17 06:07 05/03/17 06:06 Labs: Laboratory Results - last 24 hr 05/02/17 05/02/17 05/02/17 21:30 21:44 21:44 WBC 38.8 H* RBC 3.77 L Hgb 9.8 L Hct 31.7 L MCV 84.1 MCH 26.1 L MCHC 31.0 L RDW 18.3 H Plt Count 408 H MPV 7.6 Neut % (Auto) 93.3 H Lymph % (Auto) 2.4 L [place] % (Auto) 3.3 Eos % (Auto) 0.2 Baso % (Auto) 0.8 Neut # 36.2 H Lymph # 0.9 L [place] # 1.3 H Eos # 0.1 Baso # 0.3 H Neutrophils % (Manual) 93 H Band Neutrophils % Lymphocytes % (Manual) 5 L Monocytes % (Manual) 2 Platelet Estimate Slightly increased H Large Platelets Present Hypochromasia (manual) Anisocytosis (manual) PT INR APTT Puncture Site Lba pCO2 65 H pO2 69 L HCO3 23.9 ABG pH 7.24 L ABG Total CO2 29.9 H ABG O2 Saturation 96.1 ABG Base Excess -1.0 ABG Hemoglobin ABG Carboxyhemoglobin POC ABG HHb (Measured) ABG Methemoglobin Ming Test Na ABG Potassium 3.4 L A-a O2 Difference 135.0 Respiratory Index 2.0 Hgb O2 Saturation Sodium 137.0 138 Chloride 102.0 97 L Glucose 121 H Lactate 0.7 Liter Flow Vent Mode Bipap Mechanical Rate FiO2 40.0 Inspiratory BiPAP 14 Expiratory BiPAP 6 Crit Value Called To Crit Value Called By Crit Value Read Back Blood Gas Notified Time Potassium 3.5 L Carbon Dioxide 26 Anion Gap 18 BUN 38 H Creatinine 1.6 H Est GFR ( Amer) 40 Est GFR (Non-Af Amer) 33 POC Glucose (mg/dL) Random Glucose 118 H Calcium 8.2 L Phosphorus Magnesium Total Bilirubin 0.9 AST 22 ALT 23 Alkaline Phosphatase 104 Total Protein 6.2 L Albumin 2.6 L Globulin 3.6 Albumin/Globulin Ratio 0.7 L Arterial Blood Potassium 3.4 L Urine Opiates Screen Urine Methadone Screen Ur Barbiturates Screen Ur Phencyclidine Scrn Ur Amphetamines Screen U Benzodiazepines Scrn U Oth Cocaine Metabols U Cannabinoids Screen Blood Type Blood Type Confirm Antibody Screen 05/02/17 05/03/17 05/03/17 21:44 00:51 05:28 WBC RBC Hgb Hct MCV MCH MCHC RDW Plt Count MPV Neut % (Auto) Lymph % (Auto) [place] % (Auto) Eos % (Auto) Baso % (Auto) Neut # Lymph # [place] # Eos # Baso # Neutrophils % (Manual) Band Neutrophils % Lymphocytes % (Manual) Monocytes % (Manual) Platelet Estimate Large Platelets Hypochromasia (manual) Anisocytosis (manual) PT 23.8 H INR 2.1 APTT 27 D Puncture Site Rba pCO2 60 H pO2 107 H HCO3 23.7 ABG pH 7.25 L ABG Total CO2 28.1 H ABG O2 Saturation 99.3 H ABG Base Excess -1.6 ABG Hemoglobin 10.4 L ABG Carboxyhemoglobin 2.3 H POC ABG HHb (Measured) 0.7 ABG Methemoglobin 1.5 Ming Test Na ABG Potassium A-a O2 Difference 68.0 Respiratory Index 0.6 Hgb O2 Saturation 95.5 Sodium Chloride Glucose Lactate Liter Flow Vent Mode Bipap Mechanical Rate 12 FiO2 35.0 Inspiratory BiPAP 14 Expiratory BiPAP 6 Crit Value Called To Crit Value Called By Crit Value Read Back Blood Gas Notified Time Potassium Carbon Dioxide Anion Gap BUN Creatinine Est GFR ( Amer) Est GFR (Non-Af Amer) POC Glucose (mg/dL) 127 H Random Glucose Calcium Phosphorus Magnesium Total Bilirubin AST ALT Alkaline Phosphatase Total Protein Albumin Globulin Albumin/Globulin Ratio Arterial Blood Potassium Urine Opiates Screen Urine Methadone Screen Ur Barbiturates Screen Ur Phencyclidine Scrn Ur Amphetamines Screen U Benzodiazepines Scrn U Oth Cocaine Metabols U Cannabinoids Screen Blood Type Blood Type Confirm Antibody Screen 05/03/17 05/03/17 05/03/17 06:06 06:07 06:25 WBC 41.4 H* RBC 3.86 Hgb 9.9 L Hct 32.2 L MCV 83.4 MCH 25.7 L MCHC 30.8 L RDW 18.1 H Plt Count 436 H MPV 8.4 Neut % (Auto) 97.8 H Lymph % (Auto) 1.2 L [place] % (Auto) 0.9 Eos % (Auto) 0.0 Baso % (Auto) 0.1 Neut # 40.5 H Lymph # 0.5 L [place] # 0.4 Eos # 0.0 Baso # 0.0 Neutrophils % (Manual) 92 H Band Neutrophils % 7 H Lymphocytes % (Manual) 1 L Monocytes % (Manual) TEST NOT PERFORMED Platelet Estimate Slightly increased H Large Platelets Present Hypochromasia (manual) Slight Anisocytosis (manual) Slight PT INR APTT Puncture Site pCO2 pO2 HCO3 ABG pH ABG Total CO2 ABG O2 Saturation ABG Base Excess ABG Hemoglobin ABG Carboxyhemoglobin POC ABG HHb (Measured) ABG Methemoglobin Ming Test ABG Potassium A-a O2 Difference Respiratory Index Hgb O2 Saturation Sodium 136 Chloride 99 Glucose Lactate Liter Flow Vent Mode Mechanical Rate FiO2 Inspiratory BiPAP Expiratory BiPAP Crit Value Called To Crit Value Called By Crit Value Read Back Blood Gas Notified Time Potassium 3.9 Carbon Dioxide 26 Anion Gap 15 BUN 36 H Creatinine 1.4 H Est GFR ( Amer) 47 Est GFR (Non-Af Amer) 38 POC Glucose (mg/dL) 153 H Random Glucose 144 H Calcium 8.6 Phosphorus 5.7 H Magnesium 1.7 Total Bilirubin 0.7 AST 25 ALT 22 Alkaline Phosphatase 107 Total Protein 6.1 L Albumin 2.7 L Globulin 3.4 Albumin/Globulin Ratio 0.8 L Arterial Blood Potassium Urine Opiates Screen Urine Methadone Screen Ur Barbiturates Screen Ur Phencyclidine Scrn Ur Amphetamines Screen U Benzodiazepines Scrn U Oth Cocaine Metabols U Cannabinoids Screen Blood Type Blood Type Confirm Antibody Screen 05/03/17 05/03/17 05/03/17 11:10 11:55 12:58 WBC RBC Hgb Hct MCV MCH MCHC RDW Plt Count MPV Neut % (Auto) Lymph % (Auto) [place] % (Auto) Eos % (Auto) Baso % (Auto) Neut # Lymph # [place] # Eos # Baso # Neutrophils % (Manual) Band Neutrophils % Lymphocytes % (Manual) Monocytes % (Manual) Platelet Estimate Large Platelets Hypochromasia (manual) Anisocytosis (manual) PT INR APTT Puncture Site L/rad pCO2 52 H pO2 101 H HCO3 21.4 ABG pH 7.26 L ABG Total CO2 24.9 ABG O2 Saturation 98.3 H ABG Base Excess -4.4 L ABG Hemoglobin 14.3 ABG Carboxyhemoglobin 1.7 H POC ABG HHb (Measured) 1.6 ABG Methemoglobin 1.4 Ming Test Pos ABG Potassium A-a O2 Difference Respiratory Index Hgb O2 Saturation 95.3 Sodium Chloride Glucose Lactate Liter Flow 2.5 Vent Mode Mechanical Rate FiO2 Inspiratory BiPAP Expiratory BiPAP Crit Value Called To Dr alcaraz Crit Value Called By John rubi crt Crit Value Read Back Y Blood Gas Notified Time 1120 Potassium Carbon Dioxide Anion Gap BUN Creatinine Est GFR ( Amer) Est GFR (Non-Af Amer) POC Glucose (mg/dL) 165 H Random Glucose Calcium Phosphorus Magnesium Total Bilirubin AST ALT Alkaline Phosphatase Total Protein Albumin Globulin Albumin/Globulin Ratio Arterial Blood Potassium Urine Opiates Screen Positive Urine Methadone Screen Negative Ur Barbiturates Screen Negative Ur Phencyclidine Scrn Negative Ur Amphetamines Screen Negative U Benzodiazepines Scrn Negative U Oth Cocaine Metabols Negative U Cannabinoids Screen Negative Blood Type Blood Type Confirm Antibody Screen 05/03/17 13:21 WBC RBC Hgb Hct MCV MCH MCHC RDW Plt Count MPV Neut % (Auto) Lymph % (Auto) [place] % (Auto) Eos % (Auto) Baso % (Auto) Neut # Lymph # [place] # Eos # Baso # Neutrophils % (Manual) Band Neutrophils % Lymphocytes % (Manual) Monocytes % (Manual) Platelet Estimate Large Platelets Hypochromasia (manual) Anisocytosis (manual) PT INR APTT Puncture Site pCO2 pO2 HCO3 ABG pH ABG Total CO2 ABG O2 Saturation ABG Base Excess ABG Hemoglobin ABG Carboxyhemoglobin POC ABG HHb (Measured) ABG Methemoglobin Ming Test ABG Potassium A-a O2 Difference Respiratory Index Hgb O2 Saturation Sodium Chloride Glucose Lactate Liter Flow Vent Mode Mechanical Rate FiO2 Inspiratory BiPAP Expiratory BiPAP Crit Value Called To Crit Value Called By Crit Value Read Back Blood Gas Notified Time Potassium Carbon Dioxide Anion Gap BUN Creatinine Est GFR ( Amer) Est GFR (Non-Af Amer) POC Glucose (mg/dL) Random Glucose Calcium Phosphorus Magnesium Total Bilirubin AST ALT Alkaline Phosphatase Total Protein Albumin Globulin Albumin/Globulin Ratio Arterial Blood Potassium Urine Opiates Screen Urine Methadone Screen Ur Barbiturates Screen Ur Phencyclidine Scrn Ur Amphetamines Screen U Benzodiazepines Scrn U Oth Cocaine Metabols U Cannabinoids Screen Blood Type A POSITIVE Blood Type Confirm A POSITIVE Antibody Screen Negative Assessment & Plan (1) Hypotension Status: Acute (2) Sepsis Status: Acute (3) Altered mental status Status: Acute (4) COPD (chronic obstructive pulmonary disease) Status: Chronic (5) OPHELIA (obstructive sleep apnea) Status: Chronic
--- NOTE | 2017-05-03 20:04 | PCM.SURG1 ---
Surgeon's Initial Post Op Note - Surgeon's Notes Surgeon: Dr. Reyes Guidance Consultant: None Anesthesia Administered By: None Pre-Operative Diagnosis: Septic shock Operative Findings: Septic shock Post-Operative Diagnosis: Septic shock Operation Performed: Triple-lumen catheter insertion on the right internal jugular vein. Procedure done under local anesthesia. Consent from the patient' s family. Under sonogram guidance TLC was inserted without any competition. Chest x-ray verified the position. Specimen/Specimens Removed: None Estimated Blood Loss: EBL {In ML}: 0 Date of Surgery/Procedure: 05/02/17 Time of Surgery/Procedure: 20:00
[2017-05-03 20:33] LABS: INR 1.8
--- NOTE | 2017-05-03 20:58 | CARD ---
APPROVED REPORT EKG Measurement Heart [id number] <Conclusion> Normal sinus rhythm Prolonged QT Abnormal ECG
[2017-05-04] MEDS: Albuterol-Ipratrop 3 mg / 0.5 (3 ml) UD INH SCH ×4 (01:27→19:53)
[2017-05-04] MEDS: Sodium Chloride 0.9% 1,000 ML IV SCH ×4 (03:19→17:47)
[2017-05-04] MEDS: metroNIDAZOLE IV 500 mg/100 ml 250 MG in Premixed IV 1 EA IVPB SCH (05:37)
[2017-05-04] MEDS ORDERED: Phytonadione 2.5 MG/0.5 TAB TAB PO ONE (06:00)
[2017-05-04 06:57] LABS: ALB/GLOB RATIO 0.8 (1.0-2.1); ALKALINE PHOSPHATASE 122 U/L (38-126); ALT/SGPT 25 U/L (9-52); AST/SGOT 31 U/L (14-36); BILIRUBIN,TOTAL 0.5 mg/dL (0.2-1.3); BLOOD UREA NITROGEN 30 mg/dL (7-17); CALCIUM 9.1 mg/dl (8.6-10.4); CARBON DIOXIDE 25 mmol/L (22-30); CHLORIDE 103 mmol/L (98-107); GFR AFRICAN-AMERICAN > 60; GLUCOSE,RANDOM 100 mg/dL (65-105); MAGNESIUM 1.7 mg/dL (1.6-2.3); PHOSPHOROUS 3.2 mg/dL (2.5-4.5); POTASSIUM 3.4 mmol/L (3.6-5.2); SODIUM 138 mmol/L (132-148); TOTAL PROTEIN 5.9 g/dL (6.3-8.3)
[2017-05-04 06:57] LABS: BASO % 0.1 % (0.0-2.0); LYMPH # 0.9 K/uL (1.0-4.3); LYMPH % 2.9 % (20.0-40.0); MEAN CELL VOLUME 82.8 fL (81.0-99.0); MEAN CORPUSCULAR HGB CONC 31.4 g/dL (33.0-37.0); MEAN PLATELET VOLUME 8.7 fL (7.2-11.7); MONO # 0.9 K/uL (0.0-0.8); MONO % 2.9 % (0.0-10.0); PLATELET COUNT 377 K/uL (130-400); RED CELL DISTRIBUTION WIDTH 18.6 % (11.5-14.5); WHITE BLOOD COUNT 30.7 K/uL (4.8-10.8)
[2017-05-04 07:00] LABS: INR 1.5
--- NOTE | 2017-05-04 07:31 | CP.PCM.CON ---
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 BLOOD WORK UP PER ORDER R/O NMJ; DISORDER DVT PROPHYLAXIS Past Patient History - Past Medical History & Family History Past Medical History?: Yes - Past Social History Smoking Status: Light Smoker < 10 Cigarettes Daily - CARDIAC Hx Hypertension: Yes - PULMONARY Hx Pneumonia: Yes - NEUROLOGICAL Hx Neurological Disorder: No - HEENT Hx HEENT Problems: No - RENAL Hx Kidney Stones: Yes - ENDOCRINE/METABOLIC Hx Endocrine Disorders: No - HEMATOLOGICAL/ONCOLOGICAL Hx Blood Disorders: No - INTEGUMENTARY Other/Comment: Abdominal Fold reddened and weeping with foul smell - MUSCULOSKELETAL/RHEUMATOLOGICAL Hx Falls: Yes Hx Herniated Disk: Yes - GASTROINTESTINAL Hx Gastrointestinal Disorders: No - GENITOURINARY/GYNECOLOGICAL Hx Genitourinary Disorders: No - PSYCHIATRIC Hx Substance Use: No - SURGICAL HISTORY Hx Cholecystectomy: Yes - ANESTHESIA Hx Anesthesia: Yes Hx Anesthesia Reactions: No Hx Malignant Hyperthermia: No Meds Allergies/Adverse Reactions: Allergies Allergy/AdvReac Type Severity Reaction Status Date / Time No Known Allergies Allergy Verified 02/01/16 05:56 - Medications Medications: Current Medications Albuterol/Ipratropium (Duoneb 3 Mg/0.5 Mg (3 Ml) Ud) 3 ml INH RQ6 [facility] Last Admin: 05/04/17 01:27 Dose: 3 ml Famotidine (Pepcid) 20 mg IVP DAILY [facility] Last Admin: 05/03/17 09:49 Dose: 20 mg Sodium Chloride (Sodium Chloride 0.9%) 1,000 mls @ 150 mls/hr IV .Q6H40M [facility] Last Admin: 05/04/17 07:08 Dose: Not Given Vancomycin HCl 1 gm/ Sodium (Chloride) 250 mls @ 166.7 mls/hr IVPB Q24H [facility] Last Admin: 05/03/17 09:48 Dose: 166.7 mls/hr Metronidazole 250 mg/ (Miscellaneous) 50 mls @ 100 mls/hr IVPB Q8 [facility] Last Admin: 05/04/17 05:37 Dose: 100 mls/hr Dopamine HCl/Dextrose (Dopamine 400mg/250ml D5w) 400 mg in 250 mls @ 8.301 mls/ hr IV .Q24H PRN; 2 MCG/KG/MIN PRN Reason: Protocol Last Titration: 05/04/17 05:00 Dose: 0 mcg/kg/min, 0 mls/hr Imipenem/Cilastatin Sodium 500 (mg/ Sodium Chloride) 100 mls @ 100 mls/hr IVPB Q6H [facility] Last Admin: 05/04/17 03:21 Dose: 100 mls/hr Lorazepam (Ativan) 1 mg IVP ONCE ONE Stop: 05/04/17 07:29 Methylprednisolone (Solu-Medrol) 20 mg IVP BID [facility] Last Admin: 05/03/17 18:08 Dose: 20 mg Vancomycin HCl (Vancocin (Oral Or Rectal Use)) 125 mg PO QID [facility] Last Admin: 05/03/17 21:38 Dose: 125 mg Results - Vital Signs Recent Vital Signs: Last Vital Signs Temp 97.8 F 05/04/17 04:00 Pulse 83 05/04/17 07:00 Resp 23 05/04/17 07:00 BP 100/43 L 05/04/17 06:55 Pulse Ox 96 05/04/17 07:00 - Labs Result Diagrams: 05/04/17 06:35 05/04/17 06:31 Labs: Laboratory Results - last 24 hr 05/03/17 05/03/17 05/03/17 06:07 11:10 11:55 WBC RBC Hgb Hct MCV MCH MCHC RDW Plt Count MPV Neut % (Auto) Lymph % (Auto) [place] % (Auto) Eos % (Auto) Baso % (Auto) Neut # Lymph # [place] # Eos # Baso # Neutrophils % (Manual) 92 H Band Neutrophils % 7 H Lymphocytes % (Manual) 1 L Monocytes % (Manual) TEST NOT PERFORMED Platelet Estimate Slightly increased H Large Platelets Present Hypochromasia (manual) Slight Anisocytosis (manual) Slight PT INR APTT Puncture Site L/rad pCO2 52 H pO2 101 H HCO3 21.4 ABG pH 7.26 L ABG Total CO2 24.9 ABG O2 Saturation 98.3 H ABG Base Excess -4.4 L ABG Hemoglobin 14.3 ABG Carboxyhemoglobin 1.7 H POC ABG HHb (Measured) 1.6 ABG Methemoglobin 1.4 Ming Test Pos Hgb O2 Saturation 95.3 Liter Flow 2.5 Crit Value Called To Dr alcaraz Crit Value Called By John rubi crt Crit Value Read Back Y Blood Gas Notified Time 1120 Sodium Potassium Chloride Carbon Dioxide Anion Gap BUN Creatinine Est GFR ( Amer) Est GFR (Non-Af Amer) POC Glucose (mg/dL) 165 H Random Glucose Calcium Phosphorus Magnesium Total Bilirubin AST ALT Alkaline Phosphatase Total Protein Albumin Globulin Albumin/Globulin Ratio Vancomycin Trough Urine Opiates Screen Urine Methadone Screen Ur Barbiturates Screen Ur Phencyclidine Scrn Ur Amphetamines Screen U Benzodiazepines Scrn U Oth Cocaine Metabols U Cannabinoids Screen Blood Type Blood Type Confirm Antibody Screen 05/03/17 05/03/17 05/03/17 12:58 13:21 17:55 WBC RBC Hgb Hct MCV MCH MCHC RDW Plt Count MPV Neut % (Auto) Lymph % (Auto) [place] % (Auto) Eos % (Auto) Baso % (Auto) Neut # Lymph # [place] # Eos # Baso # Neutrophils % (Manual) Band Neutrophils % Lymphocytes % (Manual) Monocytes % (Manual) Platelet Estimate Large Platelets Hypochromasia (manual) Anisocytosis (manual) PT INR APTT Puncture Site pCO2 pO2 HCO3 ABG pH ABG Total CO2 ABG O2 Saturation ABG Base Excess ABG Hemoglobin ABG Carboxyhemoglobin POC ABG HHb (Measured) ABG Methemoglobin Ming Test Hgb O2 Saturation Liter Flow Crit Value Called To Crit Value Called By Crit Value Read Back Blood Gas Notified Time Sodium Potassium Chloride Carbon Dioxide Anion Gap BUN Creatinine Est GFR ( Amer) Est GFR (Non-Af Amer) POC Glucose (mg/dL) 137 H Random Glucose Calcium Phosphorus Magnesium Total Bilirubin AST ALT Alkaline Phosphatase Total Protein Albumin Globulin Albumin/Globulin Ratio Vancomycin Trough Urine Opiates Screen Positive Urine Methadone Screen Negative Ur Barbiturates Screen Negative Ur Phencyclidine Scrn Negative Ur Amphetamines Screen Negative U Benzodiazepines Scrn Negative U Oth Cocaine Metabols Negative U Cannabinoids Screen Negative Blood Type A POSITIVE Blood Type Confirm A POSITIVE Antibody Screen Negative 05/03/17 05/04/17 05/04/17 20:08 00:15 05:14 WBC RBC Hgb Hct MCV MCH MCHC RDW Plt Count MPV Neut % (Auto) Lymph % (Auto) [place] % (Auto) Eos % (Auto) Baso % (Auto) Neut # Lymph # [place] # Eos # Baso # Neutrophils % (Manual) Band Neutrophils % Lymphocytes % (Manual) Monocytes % (Manual) Platelet Estimate Large Platelets Hypochromasia (manual) Anisocytosis (manual) PT 20.5 H INR 1.8 APTT Puncture Site pCO2 pO2 HCO3 ABG pH ABG Total CO2 ABG O2 Saturation ABG Base Excess ABG Hemoglobin ABG Carboxyhemoglobin POC ABG HHb (Measured) ABG Methemoglobin Ming Test Hgb O2 Saturation Liter Flow Crit Value Called To Crit Value Called By Crit Value Read Back Blood Gas Notified Time Sodium Potassium Chloride Carbon Dioxide Anion Gap BUN Creatinine Est GFR ( Amer) Est GFR (Non-Af Amer) POC Glucose (mg/dL) 131 H 138 H Random Glucose Calcium Phosphorus Magnesium Total Bilirubin AST ALT Alkaline Phosphatase Total Protein Albumin Globulin Albumin/Globulin Ratio Vancomycin Trough Urine Opiates Screen Urine Methadone Screen Ur Barbiturates Screen Ur Phencyclidine Scrn Ur Amphetamines Screen U Benzodiazepines Scrn U Oth Cocaine Metabols U Cannabinoids Screen Blood Type Blood Type Confirm Antibody Screen 05/04/17 05/04/17 05/04/17 06:31 06:35 06:35 WBC 30.7 H RBC 3.37 L Hgb 8.8 L Hct 28.0 L MCV 82.8 MCH 26.0 L MCHC 31.4 L RDW 18.6 H Plt Count 377 MPV 8.7 Neut % (Auto) 94.1 H Lymph % (Auto) 2.9 L [place] % (Auto) 2.9 Eos % (Auto) 0.0 Baso % (Auto) 0.1 Neut # 28.9 H Lymph # 0.9 L [place] # 0.9 H Eos # 0.0 Baso # 0.0 Neutrophils % (Manual) Band Neutrophils % Lymphocytes % (Manual) Monocytes % (Manual) Platelet Estimate Large Platelets Hypochromasia (manual) Anisocytosis (manual) PT INR APTT Puncture Site pCO2 pO2 HCO3 ABG pH ABG Total CO2 ABG O2 Saturation ABG Base Excess ABG Hemoglobin ABG Carboxyhemoglobin POC ABG HHb (Measured) ABG Methemoglobin Ming Test Hgb O2 Saturation Liter Flow Crit Value Called To Crit Value Called By Crit Value Read Back Blood Gas Notified Time Sodium 138 Potassium 3.4 L Chloride 103 Carbon Dioxide 25 Anion Gap 13 BUN 30 H Creatinine 0.9 Est GFR ( Amer) > 60 Est GFR (Non-Af Amer) > 60 POC Glucose (mg/dL) Random Glucose 100 Calcium 9.1 Phosphorus 3.2 Magnesium 1.7 Total Bilirubin 0.5 AST 31 ALT 25 Alkaline Phosphatase 122 Total Protein 5.9 L Albumin 2.7 L Globulin 3.2 Albumin/Globulin Ratio 0.8 L Vancomycin Trough 16.1 H Urine Opiates Screen Urine Methadone Screen Ur Barbiturates Screen Ur Phencyclidine Scrn Ur Amphetamines Screen U Benzodiazepines Scrn U Oth Cocaine Metabols U Cannabinoids Screen Blood Type Blood Type Confirm Antibody Screen 05/04/17 06:35 WBC RBC Hgb Hct MCV MCH MCHC RDW Plt Count MPV Neut % (Auto) Lymph % (Auto) [place] % (Auto) Eos % (Auto) Baso % (Auto) Neut # Lymph # [place] # Eos # Baso # Neutrophils % (Manual) Band Neutrophils % Lymphocytes % (Manual) Monocytes % (Manual) Platelet Estimate Large Platelets Hypochromasia (manual) Anisocytosis (manual) PT 16.9 H INR 1.5 APTT 27 Puncture Site pCO2 pO2 HCO3 ABG pH ABG Total CO2 ABG O2 Saturation ABG Base Excess ABG Hemoglobin ABG Carboxyhemoglobin POC ABG HHb (Measured) ABG Methemoglobin Ming Test Hgb O2 Saturation Liter Flow Crit Value Called To Crit Value Called By Crit Value Read Back Blood Gas Notified Time Sodium Potassium Chloride Carbon Dioxide Anion Gap BUN Creatinine Est GFR ( Amer) Est GFR (Non-Af Amer) POC Glucose (mg/dL) Random Glucose Calcium Phosphorus Magnesium Total Bilirubin AST ALT Alkaline Phosphatase Total Protein Albumin Globulin Albumin/Globulin Ratio Vancomycin Trough Urine Opiates Screen Urine Methadone Screen Ur Barbiturates Screen Ur Phencyclidine Scrn Ur Amphetamines Screen U Benzodiazepines Scrn U Oth Cocaine Metabols U Cannabinoids Screen Blood Type Blood Type Confirm Antibody Screen
[2017-05-04] MEDS: Bupivacaine-Epi 0.25%-1:200,000 PF Inj ONE ×2 (07:35→08:19)
[2017-05-04] MEDS: Lidocaine 1% Inj (20ml) ONE ×2 (07:36→08:19)
[2017-05-04] MEDS ORDERED: Midazolam 2 MG/2 ML VIAL ONE ×2 (07:46→08:36)
[2017-05-04] MEDS ORDERED: Ketamine 50 mg/ml Inj (10 ml) ONE (07:55)
[2017-05-04] MEDS ORDERED: Lactated Ringer's 1,000 ML IV ONE (08:19)
[2017-05-04 08:41] LABS: NEUTROPHIL 86 % (50-75); TOTAL CELLS COUNTED 100
[2017-05-04] MEDS ORDERED: Propofol 10 mg/ml Inj (20 ML) ONE ×2 (08:43→09:06)
[2017-05-04] MEDS ORDERED: Potassium Chloride 20 mEq ER Tab PO ONE (09:31)
[2017-05-04] MEDS ORDERED: Phytonadione 10 mg/ml Inj (Adult) IV STA (09:39)
--- NOTE | 2017-05-04 09:45 | PCM.SURG1 ---
Surgeon's Initial Post Op Note - Surgeon's Notes Surgeon: Dr. Almaraz Minister Helper: Dr. Connors PGY2, PGY1 Type of Anesthesia: General IV, Local Pre-Operative Diagnosis: Sacral Decubitus Ulcer Operative Findings: multiple areas of necrotic tissue Post-Operative Diagnosis: same Operation Performed: Incision & Drainage; Debridement of Sacral decubitus ulcer Specimen/Specimens Removed: Tissue from sacral wound Estimated Blood Loss: EBL {In ML}: 50 Drains Used: Wound Vac Post-Op Condition: Good Date of Surgery/Procedure: 05/04/17 Time of Surgery/Procedure: 08:45
[2017-05-04] MEDS: MethylPREDNISolone 40 mg Vial IVP SCH ×2 (09:54→17:47)
[2017-05-04 10:06] LABS: FREE T4 1.02 ng/dL (0.78-2.19)
--- NOTE | 2017-05-04 10:06 | CON ---
REASON FOR CONSULTATION: Change in mental status weakness. CHIEF COMPLAINT: The patient was brought into [facility] with history of chronic lower back pain and inability to move her legs. From neurological point of view, I was called into evaluate her for further management. HISTORY OF PRESENT ILLNESS: The patient is a 61-year-old right-handed female claims that she was doing good about in February or March, she fell down somewhere from house. She hurt her back ever since she was down to the hill in her health issues. She claimed she slowly became bedridden initially, she could able to walk with assistance. From late March or April beginning, she has been bedridden. She has inability to move her both lower extremities. She also admits urinary as well as fecal incontinence. At times, she could not able to recall. She denies visual or bulbar dysfunction. She denies neck pain. She denies weakness of her arms. No similar episodes happened in the past. PAST MEDICAL HISTORY: Anxiety, depression, restless legs syndrome, chronic low back pain syndrome. PAST SURGICAL HISTORY: Right knee replacement nine years ago, tonsillectomy, and cholecystectomy in the past. PERSONAL HISTORY: Denies smoking or alcohol use. SOCIAL HISTORY: She quit smoking 30 years ago. REVIEW OF SYSTEMS: 12-point system being reviewed. From neurological system shows new progressive lower back pain with leg weakness. MEDICATIONS: Ativan, dopamine, DuoNeb, imipenem, metronidazole, famotidine, IV fluids, steroids, vancomycin. ALLERGIES: NO ALLERGIES. PHYSICAL EXAMINATION VITAL SIGNS: Blood pressure 100/43, pulse rate 83, respiratory rate 16, and temperature afebrile. NECK: Supple. No carotid bruits. HEART: Sounds are regular. CHEST: Fair air entry. EXTREMITIES: Right leg externally rotated than left leg. She could able to move her both upper extremity against gravity. NEUROLOGIC: CRANIAL NERVE EXAMINATION: Visual field intact. Pupils reactive to light. Extraocular movement normal. No nystagmus. No facial sensory deficit. No facial asymmetry. Hearing is normal. Tongue is midline. Good gag. MOTOR EXAMINATION: She could able to lift both upper extremities. She is trying to lean her arm on the left side rail. No drift noted. However, sensory tremor noted. She could not able to keep in position for a significant period of time. Some asterixis also noted on the left side. LOWER EXTREMITY: She could not able to move both lower extremities 1/5. Deep tendon reflexes are absent. Plantars are mute. SENSORY EXAMINATION: Increased pinprick distally in both lower extremities. Joint position sense is completely absent in moving her toes and her other digits. Vibration sense completely absent. SPINAL EXAMINATION: Could not able to do it because of her present condition. COORDINATION: [id number] test, she is thumbing her hand without knowing hitting her face. WORKUP: CT of the chest shows cardiomegaly, degenerative changes, right lower lobe and medial lower lobe atelectasis. BLOOD WORKUP: WBC 30.7, hemoglobin 8.8, hematocrit 28.0, and platelet 377. PT 16.9, INR 1.5, and PTT 27. Sodium 138, potassium 3.4, chloride 103, bicarbonate 25, BUN 30, creatinine 0.9, GFR more than 60, glucose 138, total protein 5.9, and albumin 2.7. Urine; vancomycin 16.1. Urine tox screen shows positive for opiates. CONCLUSION: 1. Chronic progressive weakness of her legs than her arms not affecting her mental status. On examination, areflexic with significant dysfunction, particularly the large fiber than small fiber consistent with possible critical illness, neuropathy superimposed with myopathy. 2. However, other possible causes including neuromuscular junctional disease should be ruled out. 3. Intracranial lesion such as dysmyelinating disease or parasagittal lesion should be ruled out. All infectious inflammatory process to locate her chronic illness, neuropathy, and myopathy should be studied. DVT prophylaxis and appropriate antibiotic and correct her anemia. The patient's condition has been well discussed with her. She agreed in the plan of management. The patient will be followed closely while he is in the hospital.. Mario Irvin MD
[2017-05-04 10:19] LABS: THYROID STIMULATING HORMONE 6.96 mIU/L (0.46-4.68)
--- NOTE | 2017-05-04 13:25 | CP.CCUPN ---
<Kelley Myers - Last Filed: 05/04/17 13:18> CCU Subjective - Physician Review Subjective (Free Text): Patient was seen and examined at bedside in the morning. Patient is more alert and awake today. She reports feeling a little better than yesterday, but still has pain in her sacral region. Patient denies having chest pain, abdominal pain , nausea, vomiting, diarrhea, and fevers. 05/04/17 13:18 CCU Objective - Vital Signs / Intake & Output Vital Signs (Last 4 hours): Vital Signs Temp Pulse Resp BP Pulse Ox 05/04/17 12:43 95 H 15 120/62 100 05/04/17 12:31 92 H 21 120/54 L 96 05/04/17 12:16 92 H 23 116/45 L 94 L 05/04/17 12:15 97.8 F 94 L 05/04/17 12:02 89 19 107/59 L 98 05/04/17 12:00 98.0 F 91 H 18 97 05/04/17 11:46 93 H 17 118/63 97 05/04/17 11:45 98.1 F 97 05/04/17 11:32 90 22 103/37 L 98 05/04/17 11:30 98.1 F 97 05/04/17 11:05 92 H 22 131/50 L 95 05/04/17 11:00 90 18 96 05/04/17 10:55 88 17 126/54 L 96 05/04/17 10:39 92 H 21 120/56 L 05/04/17 10:24 89 22 123/62 05/04/17 10:10 99 H 15 115/53 L 95 05/04/17 10:00 97 H 19 98 05/04/17 09:55 97 H 19 129/51 L 95 05/04/17 09:40 97 H 12 139/61 95 Intake and Output (Last 8hrs): Intake & Output 05/03/17 05/04/17 05/04/17 22:59 06:59 14:59 Intake Total 1849.7 424.5 790 Output Total 655 535 490 Balance 1194.7 -110.5 300 Weight 246 lb 4.8 oz Intake: IV 250 66.4 Intake, IV Amount 1279.7 308.1 550 Proximal Port 24.9 58.1 250 Right Distal Port 74.8 0 Internal Jugular Right Medial Port 1180 250 300 Internal Jugular Oral 320 50 240 Output: Urine 655 535 490 Urethral ([place]) 655 535 490 Other: # Bowel Movements 0 0 0 - Physical Exam Head: Positive for: Atraumatic, Normocephalic Extroacular Muscles: Positive for: EOMI Mouth: Positive for: Moist Mucous Membranes Respiratory/Chest: Positive for: Clear to Auscultation. Negative for: Decreased Breath Sounds Cardiovascular: Positive for: Regular Rate and Rhythm, Normal S1, S2 Abdomen: Positive for: Normal Bowel Sounds, Other (Obese). Negative for: Tenderness Rectal: Positive for: Other (Sacral wound- copious drainage) Upper Extremity: Positive for: Normal Inspection. Negative for: Edema Lower Extremity: Positive for: Edema Skin: Positive for: Warm, Dry, Normal Color, Other (sacral wound- copious drainage) Psychiatric: Positive for: Alert, Oriented x 3 - Medications Active Medications: Active Medications Generic Name Dose Route Start Last Admin Trade Name Freq PRN Reason Stop Dose Admin Albuterol/Ipratropium 3 ml 05/03/17 02:00 05/04/17 07:48 Duoneb 3 Mg/0.5 Mg (3 Ml) Ud INH 3 ml RQ6 RIK Administration Famotidine 20 mg 05/02/17 22:00 05/04/17 09:54 Pepcid IVP 20 mg DAILY RIK Administration Sodium Chloride 1,000 mls @ 150 mls/hr 05/02/17 20:45 05/04/17 12:48 Sodium Chloride 0.9% IV Not Given .[id number] RIK Vancomycin HCl 1 gm/ Sodium 250 mls @ 166.7 mls/hr 05/03/17 09:00 05/04/17 09 :53 Chloride IVPB 166.7 mls/hr Q24H RIK Administration Metronidazole 250 mg/ 50 mls @ 100 mls/hr 05/02/17 22:30 05/04/17 05:37 Miscellaneous IVPB 100 mls/hr Q8 RIK Administration Dopamine HCl/Dextrose 400 mg in 250 mls @ 8.301 mls/hr 05/03/17 08:30 05:00 Dopamine 400mg/250ml D5w IV 0 mcg/kg/min .Q24H PRN 0 mls/hr Protocol Titration 2 MCG/KG/MIN Imipenem/Cilastatin Sodium 500 100 mls @ 100 mls/hr 05/03/17 10:00 05/04/17 09:53 mg/ Sodium Chloride IVPB 100 mls/hr Q6H RIK Administration Lorazepam 1 mg 05/04/17 09:00 Ativan IVP ONCE PRN Methylprednisolone 20 mg 05/03/17 08:25 05/04/17 09:54 Solu-Medrol IVP 20 mg BID RIK Administration Morphine Sulfate 2 mg 05/04/17 12:37 05/04/17 13:07 Morphine SC 2 mg Q4 PRN Administration Pain, moderate (4-7) Ondansetron HCl 4 mg 05/04/17 09:41 Zofran Inj IVP Q4 PRN Nausea/Vomiting - Patient Studies Lab Studies: Microbiology Studies 05/02/17 18:30 MRSA Culture (Admit) - Final [facility] MRSA DETECTED Lab Studies 05/04/17 05/04/17 05/04/17 Range/Units 11:42 08:33 08:33 WBC (4.8-10.8) K/uL RBC (3.80-5.20) Mil/uL Hgb (11.0-16.0) g/dL Hct (34.0-47.0) % MCV (81.0-99.0) fL MCH (27.0-31.0) pg MCHC (33.0-37.0) g/dL RDW (11.5-14.5) % Plt Count (130-400) K/uL MPV (7.2-11.7) fL Neut % (Auto) (50.0-75.0) % Lymph % (Auto) (20.0-40.0) % [place] % (Auto) (0.0-10.0) % Eos % (Auto) (0.0-4.0) % Baso % (Auto) (0.0-2.0) % Neut # (1.8-7.0) K/uL Lymph # (1.0-4.3) K/uL [place] # (0.0-0.8) K/uL Eos # (0.0-0.7) K/uL Baso # (0.0-0.2) K/uL Neutrophils % (Manual) (50-75) % Band Neutrophils % (0-2) % Lymphocytes % (Manual) (20-40) % Monocytes % (Manual) (0-10) % Toxic Granulation Platelet Estimate (NORMAL) Hypochromasia (manual) Anisocytosis (manual) ESR 116 H (0-20) mm/hr PT (9.7-12.2) SECONDS INR APTT (21-34) SECONDS Sodium (132-148) mmol/L Potassium (3.6-5.2) mmol/L Chloride (98-107) mmol/L Carbon Dioxide (22-30) mmol/L Anion Gap (10-20) BUN (7-17) mg/dL Creatinine (0.7-1.2) MG/DL Est GFR ( Amer) Est GFR (Non-Af Amer) POC Glucose (mg/dL) 96 (65-110) mg/dL Random Glucose (65-105) mg/dL Hemoglobin A1c 5.8 (4.2-6.5) % Calcium (8.6-10.4) mg/dl Phosphorus (2.5-4.5) mg/dL Magnesium (1.6-2.3) mg/dL Total Bilirubin (0.2-1.3) mg/dL AST (14-36) U/L ALT (9-52) U/L Alkaline Phosphatase (38-126) U/L Total Creatine Kinase (30-135) U/L C-React Prot High Sens (1.00-3.00) mg/L Total Protein (6.3-8.3) g/dL Albumin (3.5-5.0) g/dL Globulin (2.2-3.9) gm/dL Albumin/Globulin Ratio (1.0-2.1) Free T4 (0.78-2.19) ng/dL TSH 3rd Generation (0.46-4.68) mIU/L Vancomycin Trough (5.0-10.0) ug/mL Urine Opiates Screen (NEGATIVE) Urine Methadone Screen (NEGATIVE) Ur Barbiturates Screen (NEGATIVE) Ur Phencyclidine Scrn (NEGATIVE) Ur Amphetamines Screen (NEGATIVE) U Benzodiazepines Scrn (NEGATIVE) U Oth Cocaine Metabols (NEGATIVE) U Cannabinoids Screen (NEGATIVE) Blood Type Blood Type Confirm Antibody Screen 05/04/17 05/04/17 05/04/17 Range/Units 08:29 08:29 06:35 WBC (4.8-10.8) K/uL RBC (3.80-5.20) Mil/uL Hgb (11.0-16.0) g/dL Hct (34.0-47.0) % MCV (81.0-99.0) fL MCH (27.0-31.0) pg MCHC (33.0-37.0) g/dL RDW (11.5-14.5) % Plt Count (130-400) K/uL MPV (7.2-11.7) fL Neut % (Auto) (50.0-75.0) % Lymph % (Auto) (20.0-40.0) % [place] % (Auto) (0.0-10.0) % Eos % (Auto) (0.0-4.0) % Baso % (Auto) (0.0-2.0) % Neut # (1.8-7.0) K/uL Lymph # (1.0-4.3) K/uL [place] # (0.0-0.8) K/uL Eos # (0.0-0.7) K/uL Baso # (0.0-0.2) K/uL Neutrophils % (Manual) (50-75) % Band Neutrophils % (0-2) % Lymphocytes % (Manual) (20-40) % Monocytes % (Manual) (0-10) % Toxic Granulation Platelet Estimate (NORMAL) Hypochromasia (manual) Anisocytosis (manual) ESR (0-20) mm/hr PT 16.9 H (9.7-12.2) SECONDS INR 1.5 APTT 27 (21-34) SECONDS Sodium (132-148) mmol/L Potassium (3.6-5.2) mmol/L Chloride (98-107) mmol/L Carbon Dioxide (22-30) mmol/L Anion Gap (10-20) BUN (7-17) mg/dL Creatinine (0.7-1.2) MG/DL Est GFR ( Amer) Est GFR (Non-Af Amer) POC Glucose (mg/dL) (65-110) mg/dL Random Glucose (65-105) mg/dL Hemoglobin A1c (4.2-6.5) % Calcium (8.6-10.4) mg/dl Phosphorus (2.5-4.5) mg/dL Magnesium (1.6-2.3) mg/dL Total Bilirubin (0.2-1.3) mg/dL AST (14-36) U/L ALT (9-52) U/L Alkaline Phosphatase (38-126) U/L Total Creatine Kinase 35 (30-135) U/L C-React Prot High Sens > 15.00 H (1.00-3.00) mg/L Total Protein (6.3-8.3) g/dL Albumin (3.5-5.0) g/dL Globulin (2.2-3.9) gm/dL Albumin/Globulin Ratio (1.0-2.1) Free T4 1.02 (0.78-2.19) ng/dL TSH 3rd Generation 6.96 H (0.46-4.68) mIU/L Vancomycin Trough (5.0-10.0) ug/mL Urine Opiates Screen (NEGATIVE) Urine Methadone Screen (NEGATIVE) Ur Barbiturates Screen (NEGATIVE) Ur Phencyclidine Scrn (NEGATIVE) Ur Amphetamines Screen (NEGATIVE) U Benzodiazepines Scrn (NEGATIVE) U Oth Cocaine Metabols (NEGATIVE) U Cannabinoids Screen (NEGATIVE) Blood Type Blood Type Confirm Antibody Screen 05/04/17 05/04/17 05/04/17 Range/Units 06:35 06:35 06:31 WBC 30.7 H (4.8-10.8) K/uL RBC 3.37 L (3.80-5.20) Mil/uL Hgb 8.8 L (11.0-16.0) g/dL Hct 28.0 L (34.0-47.0) % MCV 82.8 (81.0-99.0) fL MCH 26.0 L (27.0-31.0) pg MCHC 31.4 L (33.0-37.0) g/dL RDW 18.6 H (11.5-14.5) % Plt Count 377 (130-400) K/uL MPV 8.7 (7.2-11.7) fL Neut % (Auto) 94.1 H (50.0-75.0) % Lymph % (Auto) 2.9 L (20.0-40.0) % [place] % (Auto) 2.9 (0.0-10.0) % Eos % (Auto) 0.0 (0.0-4.0) % Baso % (Auto) 0.1 (0.0-2.0) % Neut # 28.9 H (1.8-7.0) K/uL Lymph # 0.9 L (1.0-4.3) K/uL [place] # 0.9 H (0.0-0.8) K/uL Eos # 0.0 (0.0-0.7) K/uL Baso # 0.0 (0.0-0.2) K/uL Neutrophils % (Manual) 86 H (50-75) % Band Neutrophils % 9 H (0-2) % Lymphocytes % (Manual) 4 L (20-40) % Monocytes % (Manual) 1 (0-10) % Toxic Granulation Present Platelet Estimate Normal (NORMAL) Hypochromasia (manual) Slight Anisocytosis (manual) Slight ESR (0-20) mm/hr PT (9.7-12.2) SECONDS INR APTT (21-34) SECONDS Sodium 138 (132-148) mmol/L Potassium 3.4 L (3.6-5.2) mmol/L Chloride 103 (98-107) mmol/L Carbon Dioxide 25 (22-30) mmol/L Anion Gap 13 (10-20) BUN 30 H (7-17) mg/dL Creatinine 0.9 (0.7-1.2) MG/DL Est GFR ( Amer) > 60 Est GFR (Non-Af Amer) > 60 POC Glucose (mg/dL) (65-110) mg/dL Random Glucose 100 (65-105) mg/dL Hemoglobin A1c (4.2-6.5) % Calcium 9.1 (8.6-10.4) mg/dl Phosphorus 3.2 (2.5-4.5) mg/dL Magnesium 1.7 (1.6-2.3) mg/dL Total Bilirubin 0.5 (0.2-1.3) mg/dL AST 31 (14-36) U/L ALT 25 (9-52) U/L Alkaline Phosphatase 122 (38-126) U/L Total Creatine Kinase (30-135) U/L C-React Prot High Sens (1.00-3.00) mg/L Total Protein 5.9 L (6.3-8.3) g/dL Albumin 2.7 L (3.5-5.0) g/dL Globulin 3.2 (2.2-3.9) gm/dL Albumin/Globulin Ratio 0.8 L (1.0-2.1) Free T4 (0.78-2.19) ng/dL TSH 3rd Generation (0.46-4.68) mIU/L Vancomycin Trough 16.1 H (5.0-10.0) ug/mL Urine Opiates Screen (NEGATIVE) Urine Methadone Screen (NEGATIVE) Ur Barbiturates Screen (NEGATIVE) Ur Phencyclidine Scrn (NEGATIVE) Ur Amphetamines Screen (NEGATIVE) U Benzodiazepines Scrn (NEGATIVE) U Oth Cocaine Metabols (NEGATIVE) U Cannabinoids Screen (NEGATIVE) Blood Type Blood Type Confirm Antibody Screen 05/04/17 05/04/17 05/03/17 Range/Units 05:14 00:15 20:08 WBC (4.8-10.8) K/uL RBC (3.80-5.20) Mil/uL Hgb (11.0-16.0) g/dL Hct (34.0-47.0) % MCV (81.0-99.0) fL MCH (27.0-31.0) pg MCHC (33.0-37.0) g/dL RDW (11.5-14.5) % Plt Count (130-400) K/uL MPV (7.2-11.7) fL Neut % (Auto) (50.0-75.0) % Lymph % (Auto) (20.0-40.0) % [place] % (Auto) (0.0-10.0) % Eos % (Auto) (0.0-4.0) % Baso % (Auto) (0.0-2.0) % Neut # (1.8-7.0) K/uL Lymph # (1.0-4.3) K/uL [place] # (0.0-0.8) K/uL Eos # (0.0-0.7) K/uL Baso # (0.0-0.2) K/uL Neutrophils % (Manual) (50-75) % Band Neutrophils % (0-2) % Lymphocytes % (Manual) (20-40) % Monocytes % (Manual) (0-10) % Toxic Granulation Platelet Estimate (NORMAL) Hypochromasia (manual) Anisocytosis (manual) ESR (0-20) mm/hr PT 20.5 H (9.7-12.2) SECONDS INR 1.8 APTT (21-34) SECONDS Sodium (132-148) mmol/L Potassium (3.6-5.2) mmol/L Chloride (98-107) mmol/L Carbon Dioxide (22-30) mmol/L Anion Gap (10-20) BUN (7-17) mg/dL Creatinine (0.7-1.2) MG/DL Est GFR ( Amer) Est GFR (Non-Af Amer) POC Glucose (mg/dL) 138 H 131 H (65-110) mg/dL Random Glucose (65-105) mg/dL Hemoglobin A1c (4.2-6.5) % Calcium (8.6-10.4) mg/dl Phosphorus (2.5-4.5) mg/dL Magnesium (1.6-2.3) mg/dL Total Bilirubin (0.2-1.3) mg/dL AST (14-36) U/L ALT (9-52) U/L Alkaline Phosphatase (38-126) U/L Total Creatine Kinase (30-135) U/L C-React Prot High Sens (1.00-3.00) mg/L Total Protein (6.3-8.3) g/dL Albumin (3.5-5.0) g/dL Globulin (2.2-3.9) gm/dL Albumin/Globulin Ratio (1.0-2.1) Free T4 (0.78-2.19) ng/dL TSH 3rd Generation (0.46-4.68) mIU/L Vancomycin Trough (5.0-10.0) ug/mL Urine Opiates Screen (NEGATIVE) Urine Methadone Screen (NEGATIVE) Ur Barbiturates Screen (NEGATIVE) Ur Phencyclidine Scrn (NEGATIVE) Ur Amphetamines Screen (NEGATIVE) U Benzodiazepines Scrn (NEGATIVE) U Oth Cocaine Metabols (NEGATIVE) U Cannabinoids Screen (NEGATIVE) Blood Type Blood Type Confirm Antibody Screen 05/03/17 05/03/17 05/03/17 Range/Units 17:55 13:21 12:58 WBC (4.8-10.8) K/uL RBC (3.80-5.20) Mil/uL Hgb (11.0-16.0) g/dL Hct (34.0-47.0) % MCV (81.0-99.0) fL MCH (27.0-31.0) pg MCHC (33.0-37.0) g/dL RDW (11.5-14.5) % Plt Count (130-400) K/uL MPV (7.2-11.7) fL Neut % (Auto) (50.0-75.0) % Lymph % (Auto) (20.0-40.0) % [place] % (Auto) (0.0-10.0) % Eos % (Auto) (0.0-4.0) % Baso % (Auto) (0.0-2.0) % Neut # (1.8-7.0) K/uL Lymph # (1.0-4.3) K/uL [place] # (0.0-0.8) K/uL Eos # (0.0-0.7) K/uL Baso # (0.0-0.2) K/uL Neutrophils % (Manual) (50-75) % Band Neutrophils % (0-2) % Lymphocytes % (Manual) (20-40) % Monocytes % (Manual) (0-10) % Toxic Granulation Platelet Estimate (NORMAL) Hypochromasia (manual) Anisocytosis (manual) ESR (0-20) mm/hr PT (9.7-12.2) SECONDS INR APTT (21-34) SECONDS Sodium (132-148) mmol/L Potassium (3.6-5.2) mmol/L Chloride (98-107) mmol/L Carbon Dioxide (22-30) mmol/L Anion Gap (10-20) BUN (7-17) mg/dL Creatinine (0.7-1.2) MG/DL Est GFR ( Amer) Est GFR (Non-Af Amer) POC Glucose (mg/dL) 137 H (65-110) mg/dL Random Glucose (65-105) mg/dL Hemoglobin A1c (4.2-6.5) % Calcium (8.6-10.4) mg/dl Phosphorus (2.5-4.5) mg/dL Magnesium (1.6-2.3) mg/dL Total Bilirubin (0.2-1.3) mg/dL AST (14-36) U/L ALT (9-52) U/L Alkaline Phosphatase (38-126) U/L Total Creatine Kinase (30-135) U/L C-React Prot High Sens (1.00-3.00) mg/L Total Protein (6.3-8.3) g/dL Albumin (3.5-5.0) g/dL Globulin (2.2-3.9) gm/dL Albumin/Globulin Ratio (1.0-2.1) Free T4 (0.78-2.19) ng/dL TSH 3rd Generation (0.46-4.68) mIU/L Vancomycin Trough (5.0-10.0) ug/mL Urine Opiates Screen Positive (NEGATIVE) Urine Methadone Screen Negative (NEGATIVE) Ur Barbiturates Screen Negative (NEGATIVE) Ur Phencyclidine Scrn Negative (NEGATIVE) Ur Amphetamines Screen Negative (NEGATIVE) U Benzodiazepines Scrn Negative (NEGATIVE) U Oth Cocaine Metabols Negative (NEGATIVE) U Cannabinoids Screen Negative (NEGATIVE) Blood Type A POSITIVE Blood Type Confirm A POSITIVE Antibody Screen Negative Laboratory Results - last 24 hr 05/03/17 05/03/17 05/03/17 12:58 13:21 17:55 WBC RBC Hgb Hct MCV MCH MCHC RDW Plt Count MPV Neut % (Auto) Lymph % (Auto) [place] % (Auto) Eos % (Auto) Baso % (Auto) Neut # Lymph # [place] # Eos # Baso # Neutrophils % (Manual) Band Neutrophils % Lymphocytes % (Manual) Monocytes % (Manual) Toxic Granulation Platelet Estimate Hypochromasia (manual) Anisocytosis (manual) ESR PT INR APTT Sodium Potassium Chloride Carbon Dioxide Anion Gap BUN Creatinine Est GFR ( Amer) Est GFR (Non-Af Amer) POC Glucose (mg/dL) 137 H Random Glucose Hemoglobin A1c Calcium Phosphorus Magnesium Total Bilirubin AST ALT Alkaline Phosphatase Total Creatine Kinase C-React Prot High Sens Total Protein Albumin Globulin Albumin/Globulin Ratio Free T4 TSH 3rd Generation Vancomycin Trough Urine Opiates Screen Positive Urine Methadone Screen Negative Ur Barbiturates Screen Negative Ur Phencyclidine Scrn Negative Ur Amphetamines Screen Negative U Benzodiazepines Scrn Negative U Oth Cocaine Metabols Negative U Cannabinoids Screen Negative Blood Type A POSITIVE Blood Type Confirm A POSITIVE Antibody Screen Negative 05/03/17 05/04/17 05/04/17 20:08 00:15 05:14 WBC RBC Hgb Hct MCV MCH MCHC RDW Plt Count MPV Neut % (Auto) Lymph % (Auto) [place] % (Auto) Eos % (Auto) Baso % (Auto) Neut # Lymph # [place] # Eos # Baso # Neutrophils % (Manual) Band Neutrophils % Lymphocytes % (Manual) Monocytes % (Manual) Toxic Granulation Platelet Estimate Hypochromasia (manual) Anisocytosis (manual) ESR PT 20.5 H INR 1.8 APTT Sodium Potassium Chloride Carbon Dioxide Anion Gap BUN Creatinine Est GFR ( Amer) Est GFR (Non-Af Amer) POC Glucose (mg/dL) 131 H 138 H Random Glucose Hemoglobin A1c Calcium Phosphorus Magnesium Total Bilirubin AST ALT Alkaline Phosphatase Total Creatine Kinase C-React Prot High Sens Total Protein Albumin Globulin Albumin/Globulin Ratio Free T4 TSH 3rd Generation Vancomycin Trough Urine Opiates Screen Urine Methadone Screen Ur Barbiturates Screen Ur Phencyclidine Scrn Ur Amphetamines Screen U Benzodiazepines Scrn U Oth Cocaine Metabols U Cannabinoids Screen Blood Type Blood Type Confirm Antibody Screen 05/04/17 05/04/17 05/04/17 06:31 06:35 06:35 WBC 30.7 H RBC 3.37 L Hgb 8.8 L Hct 28.0 L MCV 82.8 MCH 26.0 L MCHC 31.4 L RDW 18.6 H Plt Count 377 MPV 8.7 Neut % (Auto) 94.1 H Lymph % (Auto) 2.9 L [place] % (Auto) 2.9 Eos % (Auto) 0.0 Baso % (Auto) 0.1 Neut # 28.9 H Lymph # 0.9 L [place] # 0.9 H Eos # 0.0 Baso # 0.0 Neutrophils % (Manual) 86 H Band Neutrophils % 9 H Lymphocytes % (Manual) 4 L Monocytes % (Manual) 1 Toxic Granulation Present Platelet Estimate Normal Hypochromasia (manual) Slight Anisocytosis (manual) Slight ESR PT INR APTT Sodium 138 Potassium 3.4 L Chloride 103 Carbon Dioxide 25 Anion Gap 13 BUN 30 H Creatinine 0.9 Est GFR ( Amer) > 60 Est GFR (Non-Af Amer) > 60 POC Glucose (mg/dL) Random Glucose 100 Hemoglobin A1c Calcium 9.1 Phosphorus 3.2 Magnesium 1.7 Total Bilirubin 0.5 AST 31 ALT 25 Alkaline Phosphatase 122 Total Creatine Kinase C-React Prot High Sens Total Protein 5.9 L Albumin 2.7 L Globulin 3.2 Albumin/Globulin Ratio 0.8 L Free T4 TSH 3rd Generation Vancomycin Trough 16.1 H Urine Opiates Screen Urine Methadone Screen Ur Barbiturates Screen Ur Phencyclidine Scrn Ur Amphetamines Screen U Benzodiazepines Scrn U Oth Cocaine Metabols U Cannabinoids Screen Blood Type Blood Type Confirm Antibody Screen 05/04/17 05/04/17 05/04/17 06:35 08:29 08:29 WBC RBC Hgb Hct MCV MCH MCHC RDW Plt Count MPV Neut % (Auto) Lymph % (Auto) [place] % (Auto) Eos % (Auto) Baso % (Auto) Neut # Lymph # [place] # Eos # Baso # Neutrophils % (Manual) Band Neutrophils % Lymphocytes % (Manual) Monocytes % (Manual) Toxic Granulation Platelet Estimate Hypochromasia (manual) Anisocytosis (manual) ESR PT 16.9 H INR 1.5 APTT 27 Sodium Potassium Chloride Carbon Dioxide Anion Gap BUN Creatinine Est GFR ( Amer) Est GFR (Non-Af Amer) POC Glucose (mg/dL) Random Glucose Hemoglobin A1c Calcium Phosphorus Magnesium Total Bilirubin AST ALT Alkaline Phosphatase Total Creatine Kinase 35 C-React Prot High Sens > 15.00 H Total Protein Albumin Globulin Albumin/Globulin Ratio Free T4 1.02 TSH 3rd Generation 6.96 H Vancomycin Trough Urine Opiates Screen Urine Methadone Screen Ur Barbiturates Screen Ur Phencyclidine Scrn Ur Amphetamines Screen U Benzodiazepines Scrn U Oth Cocaine Metabols U Cannabinoids Screen Blood Type Blood Type Confirm Antibody Screen 05/04/17 05/04/17 05/04/17 08:33 08:33 11:42 WBC RBC Hgb Hct MCV MCH MCHC RDW Plt Count MPV Neut % (Auto) Lymph % (Auto) [place] % (Auto) Eos % (Auto) Baso % (Auto) Neut # Lymph # [place] # Eos # Baso # Neutrophils % (Manual) Band Neutrophils % Lymphocytes % (Manual) Monocytes % (Manual) Toxic Granulation Platelet Estimate Hypochromasia (manual) Anisocytosis (manual) ESR 116 H PT INR APTT Sodium Potassium Chloride Carbon Dioxide Anion Gap BUN Creatinine Est GFR ( Amer) Est GFR (Non-Af Amer) POC Glucose (mg/dL) 96 Random Glucose Hemoglobin A1c 5.8 Calcium Phosphorus Magnesium Total Bilirubin AST ALT Alkaline Phosphatase Total Creatine Kinase C-React Prot High Sens Total Protein Albumin Globulin Albumin/Globulin Ratio Free T4 TSH 3rd Generation Vancomycin Trough Urine Opiates Screen Urine Methadone Screen Ur Barbiturates Screen Ur Phencyclidine Scrn Ur Amphetamines Screen U Benzodiazepines Scrn U Oth Cocaine Metabols U Cannabinoids Screen Blood Type Blood Type Confirm Antibody Screen Fingerstick Blood Sugar Results: 96 Review of Systems - Constitutional Constitutional: absent: Fever - Cardiovascular Cardiovascular: Dyspnea. absent: Chest Pain, Leg Edema - Respiratory Respiratory: Dyspnea. absent: Cough - Gastrointestinal Gastrointestinal: absent: Abdominal Pain, Constipation, Diarrhea, Nausea, Vomiting - Neurological Neurological: absent: Dizziness, Headaches Critical Care Progress Note - Nutrition Nutrition: Nutrition Category Date Time Status Heart Healthy Diet [DIET] Diets 05/04/17 Lunch Active Assessment/Plan - Assessment and Plan (Free Text) Assessment: 60-year-old female with history of anxiety, depression, chronic back pain, possible obstructive sleep apnea, COPD, was brought in by the family members because of altered mental status. Patient is hypotensive and septic. Patient has sacral wound, likely cause of sepsis. Patient went to the OR today for I/D of sacral wound. Wound culture came back positive for proteus mirabilis, group c strep-- continue Primaxin and vanco. Neuro: - Patient is more alert and oriented today. AOx3 - Neurology consulted: Dr. Irvin, help appreciated Pulm: CO2 retention with acute exacerbation secondary to sepsis - On BiPAP prn at night. NC at 3L - Duonebs - Monitor ABG CV: hypotensive - secondary to sepsis - IV Fluid and Dopamine - Hx of DVT (6 weeks prior)--> restart Eliquis 5mg PO - Venous dopplers: F/U Endo: no acute issues GI: no acute issues - Pepcid daily : no acute issues - UA: 1+ protein & blood, 4 Urobilinogen, 23 WBC, 8 RBC, Few bacteria. Heme: - Monitor H/H Renal: - Elevated BUN/Cr--> decreasing (05/03/17), 36/1.4 - Monitor renal function ID: Sepsis, leukocytosis, bandemia - ID consulted: Dr. Ornelas, desirae appreciated - Sacral wound- Proteus Mirabilis, Group C strep - Surgery consulted: Dr. Almaraz, desirae appreciated - Continue Primaxin, Vanco, [Discontinued Flagyl] - Wound care - C. Diff: negative Prophylaxis: - DVT: SCDs - GI: Pepcid daily - PT/OT <Howard Quiñones - Last Filed: 05/04/17 17:02> CCU Objective - Vital Signs / Intake & Output Vital Signs (Last 4 hours): Vital Signs Temp Pulse Resp BP Pulse Ox 05/04/17 16:00 97.0 F L 103 H 13 97 05/04/17 15:43 102 H 25 H 117/71 96 05/04/17 15:00 103 H 20 98 05/04/17 14:43 106 H 17 122/72 96 05/04/17 14:00 106 H 22 97 05/04/17 13:43 98 H 20 110/60 98 Intake and Output (Last 8hrs): Intake & Output 05/04/17 05/04/17 05/04/17 06:59 14:59 22:59 Intake Total 424.5 1210 650 Output Total 535 590 80 Balance -110.5 620 570 Weight 246 lb 4.8 oz Intake: IV 66.4 Intake, IV Amount 308.1 970 300 Proximal Port 58.1 550 300 Right Distal Port 0 Internal Jugular Right Medial Port 250 420 0 Internal Jugular Oral 50 240 350 Output: Urine 535 590 80 Urethral (Colmenares) 535 590 80 Other: # Bowel Movements 0 0 0 - Medications Active Medications: Active Medications Generic Name Dose Route Start Last Admin Trade Name Freq PRN Reason Stop Dose Admin Albuterol/Ipratropium 3 ml 05/03/17 02:00 05/04/17 13:43 Duoneb 3 Mg/0.5 Mg (3 Ml) Ud INH 3 ml RQ6 RIK Administration Famotidine 20 mg 05/02/17 22:00 05/04/17 09:54 Pepcid IVP 20 mg DAILY RIK Administration Sodium Chloride 1,000 mls @ 150 mls/hr 05/02/17 20:45 05/04/17 12:48 Sodium Chloride 0.9% IV Not Given .[id number] RIK Vancomycin HCl 1 gm/ Sodium 250 mls @ 166.7 mls/hr 05/03/17 09:00 05/04/17 09 :53 Chloride IVPB 166.7 mls/hr Q24H RIK Administration Dopamine HCl/Dextrose 400 mg in 250 mls @ 8.301 mls/hr 05/03/17 08:30 05:00 Dopamine 400mg/250ml D5w IV 0 mcg/kg/min .Q24H PRN 0 mls/hr Protocol Titration 2 MCG/KG/MIN Imipenem/Cilastatin Sodium 500 100 mls @ 100 mls/hr 05/03/17 10:00 05/04/17 15:31 mg/ Sodium Chloride IVPB 100 mls/hr Q6H RIK Administration Lorazepam 1 mg 05/04/17 09:00 Ativan IVP ONCE PRN Methylprednisolone 20 mg 05/03/17 08:25 05/04/17 09:54 Solu-Medrol IVP 20 mg BID RIK Administration Morphine Sulfate 2 mg 05/04/17 12:37 05/04/17 13:07 Morphine SC 2 mg Q4 PRN Administration Pain, moderate (4-7) Ondansetron HCl 4 mg 05/04/17 09:41 Zofran Inj IVP Q4 PRN Nausea/Vomiting - Patient Studies Lab Studies: Microbiology Studies 05/04/17 08:45 Gram Stain - Final Sacral 05/02/17 18:30 MRSA Culture (Admit) - Final Naris MRSA DETECTED Lab Studies 05/04/17 05/04/17 05/04/17 Range/Units 11:42 08:33 08:33 WBC (4.8-10.8) K/uL RBC (3.80-5.20) Mil/uL Hgb (11.0-16.0) g/dL Hct (34.0-47.0) % MCV (81.0-99.0) fL MCH (27.0-31.0) pg MCHC (33.0-37.0) g/dL RDW (11.5-14.5) % Plt Count (130-400) K/uL MPV (7.2-11.7) fL Neut % (Auto) (50.0-75.0) % Lymph % (Auto) (20.0-40.0) % [place] % (Auto) (0.0-10.0) % Eos % (Auto) (0.0-4.0) % Baso % (Auto) (0.0-2.0) % Neut # (1.8-7.0) K/uL Lymph # (1.0-4.3) K/uL [place] # (0.0-0.8) K/uL Eos # (0.0-0.7) K/uL Baso # (0.0-0.2) K/uL Neutrophils % (Manual) (50-75) % Band Neutrophils % (0-2) % Lymphocytes % (Manual) (20-40) % Monocytes % (Manual) (0-10) % Toxic Granulation Platelet Estimate (NORMAL) Hypochromasia (manual) Anisocytosis (manual) ESR 116 H (0-20) mm/hr PT (9.7-12.2) SECONDS INR APTT (21-34) SECONDS Sodium (132-148) mmol/L Potassium (3.6-5.2) mmol/L Chloride (98-107) mmol/L Carbon Dioxide (22-30) mmol/L Anion Gap (10-20) BUN (7-17) mg/dL Creatinine (0.7-1.2) MG/DL Est GFR ( Amer) Est GFR (Non-Af Amer) POC Glucose (mg/dL) 96 (65-110) mg/dL Random Glucose (65-105) mg/dL Hemoglobin A1c 5.8 (4.2-6.5) % Calcium (8.6-10.4) mg/dl Phosphorus (2.5-4.5) mg/dL Magnesium (1.6-2.3) mg/dL Total Bilirubin (0.2-1.3) mg/dL AST (14-36) U/L ALT (9-52) U/L Alkaline Phosphatase (38-126) U/L Total Creatine Kinase (30-135) U/L C-React Prot High Sens (1.00-3.00) mg/L Total Protein (6.3-8.3) g/dL Albumin (3.5-5.0) g/dL Globulin (2.2-3.9) gm/dL Albumin/Globulin Ratio (1.0-2.1) Free T4 (0.78-2.19) ng/dL TSH 3rd Generation (0.46-4.68) mIU/L Vancomycin Trough (5.0-10.0) ug/mL Blood Type Blood Type Confirm Antibody Screen 05/04/17 05/04/17 05/04/17 Range/Units 08:29 08:29 06:35 WBC (4.8-10.8) K/uL RBC (3.80-5.20) Mil/uL Hgb (11.0-16.0) g/dL Hct (34.0-47.0) % MCV (81.0-99.0) fL MCH (27.0-31.0) pg MCHC (33.0-37.0) g/dL RDW (11.5-14.5) % Plt Count (130-400) K/uL MPV (7.2-11.7) fL Neut % (Auto) (50.0-75.0) % Lymph % (Auto) (20.0-40.0) % [place] % (Auto) (0.0-10.0) % Eos % (Auto) (0.0-4.0) % Baso % (Auto) (0.0-2.0) % Neut # (1.8-7.0) K/uL Lymph # (1.0-4.3) K/uL [place] # (0.0-0.8) K/uL Eos # (0.0-0.7) K/uL Baso # (0.0-0.2) K/uL Neutrophils % (Manual) (50-75) % Band Neutrophils % (0-2) % Lymphocytes % (Manual) (20-40) % Monocytes % (Manual) (0-10) % Toxic Granulation Platelet Estimate (NORMAL) Hypochromasia (manual) Anisocytosis (manual) ESR (0-20) mm/hr PT 16.9 H (9.7-12.2) SECONDS INR 1.5 APTT 27 (21-34) SECONDS Sodium (132-148) mmol/L Potassium (3.6-5.2) mmol/L Chloride (98-107) mmol/L Carbon Dioxide (22-30) mmol/L Anion Gap (10-20) BUN (7-17) mg/dL Creatinine (0.7-1.2) MG/DL Est GFR ( Amer) Est GFR (Non-Af Amer) POC Glucose (mg/dL) (65-110) mg/dL Random Glucose (65-105) mg/dL Hemoglobin A1c (4.2-6.5) % Calcium (8.6-10.4) mg/dl Phosphorus (2.5-4.5) mg/dL Magnesium (1.6-2.3) mg/dL Total Bilirubin (0.2-1.3) mg/dL AST (14-36) U/L ALT (9-52) U/L Alkaline Phosphatase (38-126) U/L Total Creatine Kinase 35 (30-135) U/L C-React Prot High Sens > 15.00 H (1.00-3.00) mg/L Total Protein (6.3-8.3) g/dL Albumin (3.5-5.0) g/dL Globulin (2.2-3.9) gm/dL Albumin/Globulin Ratio (1.0-2.1) Free T4 1.02 (0.78-2.19) ng/dL TSH 3rd Generation 6.96 H (0.46-4.68) mIU/L Vancomycin Trough (5.0-10.0) ug/mL Blood Type Blood Type Confirm Antibody Screen 05/04/17 05/04/17 05/04/17 Range/Units 06:35 06:35 06:31 WBC 30.7 H (4.8-10.8) K/uL RBC 3.37 L (3.80-5.20) Mil/uL Hgb 8.8 L (11.0-16.0) g/dL Hct 28.0 L (34.0-47.0) % MCV 82.8 (81.0-99.0) fL MCH 26.0 L (27.0-31.0) pg MCHC 31.4 L (33.0-37.0) g/dL RDW 18.6 H (11.5-14.5) % Plt Count 377 (130-400) K/uL MPV 8.7 (7.2-11.7) fL Neut % (Auto) 94.1 H (50.0-75.0) % Lymph % (Auto) 2.9 L (20.0-40.0) % [place] % (Auto) 2.9 (0.0-10.0) % Eos % (Auto) 0.0 (0.0-4.0) % Baso % (Auto) 0.1 (0.0-2.0) % Neut # 28.9 H (1.8-7.0) K/uL Lymph # 0.9 L (1.0-4.3) K/uL [place] # 0.9 H (0.0-0.8) K/uL Eos # 0.0 (0.0-0.7) K/uL Baso # 0.0 (0.0-0.2) K/uL Neutrophils % (Manual) 86 H (50-75) % Band Neutrophils % 9 H (0-2) % Lymphocytes % (Manual) 4 L (20-40) % Monocytes % (Manual) 1 (0-10) % Toxic Granulation Present Platelet Estimate Normal (NORMAL) Hypochromasia (manual) Slight Anisocytosis (manual) Slight ESR (0-20) mm/hr PT (9.7-12.2) SECONDS INR APTT (21-34) SECONDS Sodium 138 (132-148) mmol/L Potassium 3.4 L (3.6-5.2) mmol/L Chloride 103 (98-107) mmol/L Carbon Dioxide 25 (22-30) mmol/L Anion Gap 13 (10-20) BUN 30 H (7-17) mg/dL Creatinine 0.9 (0.7-1.2) MG/DL Est GFR ( Amer) > 60 Est GFR (Non-Af Amer) > 60 POC Glucose (mg/dL) (65-110) mg/dL Random Glucose 100 (65-105) mg/dL Hemoglobin A1c (4.2-6.5) % Calcium 9.1 (8.6-10.4) mg/dl Phosphorus 3.2 (2.5-4.5) mg/dL Magnesium 1.7 (1.6-2.3) mg/dL Total Bilirubin 0.5 (0.2-1.3) mg/dL AST 31 (14-36) U/L ALT 25 (9-52) U/L Alkaline Phosphatase 122 (38-126) U/L Total Creatine Kinase (30-135) U/L C-React Prot High Sens (1.00-3.00) mg/L Total Protein 5.9 L (6.3-8.3) g/dL Albumin 2.7 L (3.5-5.0) g/dL Globulin 3.2 (2.2-3.9) gm/dL Albumin/Globulin Ratio 0.8 L (1.0-2.1) Free T4 (0.78-2.19) ng/dL TSH 3rd Generation (0.46-4.68) mIU/L Vancomycin Trough 16.1 H (5.0-10.0) ug/mL Blood Type Blood Type Confirm Antibody Screen 05/04/17 05/04/17 05/03/17 Range/Units 05:14 00:15 20:08 WBC (4.8-10.8) K/uL RBC (3.80-5.20) Mil/uL Hgb (11.0-16.0) g/dL Hct (34.0-47.0) % MCV (81.0-99.0) fL MCH (27.0-31.0) pg MCHC (33.0-37.0) g/dL RDW (11.5-14.5) % Plt Count (130-400) K/uL MPV (7.2-11.7) fL Neut % (Auto) (50.0-75.0) % Lymph % (Auto) (20.0-40.0) % [place] % (Auto) (0.0-10.0) % Eos % (Auto) (0.0-4.0) % Baso % (Auto) (0.0-2.0) % Neut # (1.8-7.0) K/uL Lymph # (1.0-4.3) K/uL [place] # (0.0-0.8) K/uL Eos # (0.0-0.7) K/uL Baso # (0.0-0.2) K/uL Neutrophils % (Manual) (50-75) % Band Neutrophils % (0-2) % Lymphocytes % (Manual) (20-40) % Monocytes % (Manual) (0-10) % Toxic Granulation Platelet Estimate (NORMAL) Hypochromasia (manual) Anisocytosis (manual) ESR (0-20) mm/hr PT 20.5 H (9.7-12.2) SECONDS INR 1.8 APTT (21-34) SECONDS Sodium (132-148) mmol/L Potassium (3.6-5.2) mmol/L Chloride (98-107) mmol/L Carbon Dioxide (22-30) mmol/L Anion Gap (10-20) BUN (7-17) mg/dL Creatinine (0.7-1.2) MG/DL Est GFR ( Amer) Est GFR (Non-Af Amer) POC Glucose (mg/dL) 138 H 131 H (65-110) mg/dL Random Glucose (65-105) mg/dL Hemoglobin A1c (4.2-6.5) % Calcium (8.6-10.4) mg/dl Phosphorus (2.5-4.5) mg/dL Magnesium (1.6-2.3) mg/dL Total Bilirubin (0.2-1.3) mg/dL AST (14-36) U/L ALT (9-52) U/L Alkaline Phosphatase (38-126) U/L Total Creatine Kinase (30-135) U/L C-React Prot High Sens (1.00-3.00) mg/L Total Protein (6.3-8.3) g/dL Albumin (3.5-5.0) g/dL Globulin (2.2-3.9) gm/dL Albumin/Globulin Ratio (1.0-2.1) Free T4 (0.78-2.19) ng/dL TSH 3rd Generation (0.46-4.68) mIU/L Vancomycin Trough (5.0-10.0) ug/mL Blood Type Blood Type Confirm Antibody Screen 05/03/17 05/03/17 Range/Units 17:55 13:21 WBC (4.8-10.8) K/uL RBC (3.80-5.20) Mil/uL Hgb (11.0-16.0) g/dL Hct (34.0-47.0) % MCV (81.0-99.0) fL MCH (27.0-31.0) pg MCHC (33.0-37.0) g/dL RDW (11.5-14.5) % Plt Count (130-400) K/uL MPV (7.2-11.7) fL Neut % (Auto) (50.0-75.0) % Lymph % (Auto) (20.0-40.0) % [place] % (Auto) (0.0-10.0) % Eos % (Auto) (0.0-4.0) % Baso % (Auto) (0.0-2.0) % Neut # (1.8-7.0) K/uL Lymph # (1.0-4.3) K/uL [place] # (0.0-0.8) K/uL Eos # (0.0-0.7) K/uL Baso # (0.0-0.2) K/uL Neutrophils % (Manual) (50-75) % Band Neutrophils % (0-2) % Lymphocytes % (Manual) (20-40) % Monocytes % (Manual) (0-10) % Toxic Granulation Platelet Estimate (NORMAL) Hypochromasia (manual) Anisocytosis (manual) ESR (0-20) mm/hr PT (9.7-12.2) SECONDS INR APTT (21-34) SECONDS Sodium (132-148) mmol/L Potassium (3.6-5.2) mmol/L Chloride (98-107) mmol/L Carbon Dioxide (22-30) mmol/L Anion Gap (10-20) BUN (7-17) mg/dL Creatinine (0.7-1.2) MG/DL Est GFR ( Amer) Est GFR (Non-Af Amer) POC Glucose (mg/dL) 137 H (65-110) mg/dL Random Glucose (65-105) mg/dL Hemoglobin A1c (4.2-6.5) % Calcium (8.6-10.4) mg/dl Phosphorus (2.5-4.5) mg/dL Magnesium (1.6-2.3) mg/dL Total Bilirubin (0.2-1.3) mg/dL AST (14-36) U/L ALT (9-52) U/L Alkaline Phosphatase (38-126) U/L Total Creatine Kinase (30-135) U/L C-React Prot High Sens (1.00-3.00) mg/L Total Protein (6.3-8.3) g/dL Albumin (3.5-5.0) g/dL Globulin (2.2-3.9) gm/dL Albumin/Globulin Ratio (1.0-2.1) Free T4 (0.78-2.19) ng/dL TSH 3rd Generation (0.46-4.68) mIU/L Vancomycin Trough (5.0-10.0) ug/mL Blood Type A POSITIVE Blood Type Confirm A POSITIVE Antibody Screen Negative Laboratory Results - last 24 hr 05/03/17 05/03/17 05/03/17 13:21 17:55 20:08 WBC RBC Hgb Hct MCV MCH MCHC RDW Plt Count MPV Neut % (Auto) Lymph % (Auto) [place] % (Auto) Eos % (Auto) Baso % (Auto) Neut # Lymph # [place] # Eos # Baso # Neutrophils % (Manual) Band Neutrophils % Lymphocytes % (Manual) Monocytes % (Manual) Toxic Granulation Platelet Estimate Hypochromasia (manual) Anisocytosis (manual) ESR PT 20.5 H INR 1.8 APTT Sodium Potassium Chloride Carbon Dioxide Anion Gap BUN Creatinine Est GFR ( Amer) Est GFR (Non-Af Amer) POC Glucose (mg/dL) 137 H Random Glucose Hemoglobin A1c Calcium Phosphorus Magnesium Total Bilirubin AST ALT Alkaline Phosphatase Total Creatine Kinase C-React Prot High Sens Total Protein Albumin Globulin Albumin/Globulin Ratio Free T4 TSH 3rd Generation Vancomycin Trough Blood Type A POSITIVE Blood Type Confirm A POSITIVE Antibody Screen Negative 05/04/17 05/04/17 05/04/17 00:15 05:14 06:31 WBC RBC Hgb Hct MCV MCH MCHC RDW Plt Count MPV Neut % (Auto) Lymph % (Auto) [place] % (Auto) Eos % (Auto) Baso % (Auto) Neut # Lymph # [place] # Eos # Baso # Neutrophils % (Manual) Band Neutrophils % Lymphocytes % (Manual) Monocytes % (Manual) Toxic Granulation Platelet Estimate Hypochromasia (manual) Anisocytosis (manual) ESR PT INR APTT Sodium 138 Potassium 3.4 L Chloride 103 Carbon Dioxide 25 Anion Gap 13 BUN 30 H Creatinine 0.9 Est GFR ( Amer) > 60 Est GFR (Non-Af Amer) > 60 POC Glucose (mg/dL) 131 H 138 H Random Glucose 100 Hemoglobin A1c Calcium 9.1 Phosphorus 3.2 Magnesium 1.7 Total Bilirubin 0.5 AST 31 ALT 25 Alkaline Phosphatase 122 Total Creatine Kinase C-React Prot High Sens Total Protein 5.9 L Albumin 2.7 L Globulin 3.2 Albumin/Globulin Ratio 0.8 L Free T4 TSH 3rd Generation Vancomycin Trough Blood Type Blood Type Confirm Antibody Screen 05/04/17 05/04/17 05/04/17 06:35 06:35 06:35 WBC 30.7 H RBC 3.37 L Hgb 8.8 L Hct 28.0 L MCV 82.8 MCH 26.0 L MCHC 31.4 L RDW 18.6 H Plt Count 377 MPV 8.7 Neut % (Auto) 94.1 H Lymph % (Auto) 2.9 L [place] % (Auto) 2.9 Eos % (Auto) 0.0 Baso % (Auto) 0.1 Neut # 28.9 H Lymph # 0.9 L [place] # 0.9 H Eos # 0.0 Baso # 0.0 Neutrophils % (Manual) 86 H Band Neutrophils % 9 H Lymphocytes % (Manual) 4 L Monocytes % (Manual) 1 Toxic Granulation Present Platelet Estimate Normal Hypochromasia (manual) Slight Anisocytosis (manual) Slight ESR PT 16.9 H INR 1.5 APTT 27 Sodium Potassium Chloride Carbon Dioxide Anion Gap BUN Creatinine Est GFR ( Amer) Est GFR (Non-Af Amer) POC Glucose (mg/dL) Random Glucose Hemoglobin A1c Calcium Phosphorus Magnesium Total Bilirubin AST ALT Alkaline Phosphatase Total Creatine Kinase C-React Prot High Sens Total Protein Albumin Globulin Albumin/Globulin Ratio Free T4 TSH 3rd Generation Vancomycin Trough 16.1 H Blood Type Blood Type Confirm Antibody Screen 05/04/17 05/04/17 05/04/17 08:29 08:29 08:33 WBC RBC Hgb Hct MCV MCH MCHC RDW Plt Count MPV Neut % (Auto) Lymph % (Auto) [place] % (Auto) Eos % (Auto) Baso % (Auto) Neut # Lymph # [place] # Eos # Baso # Neutrophils % (Manual) Band Neutrophils % Lymphocytes % (Manual) Monocytes % (Manual) Toxic Granulation Platelet Estimate Hypochromasia (manual) Anisocytosis (manual) ESR 116 H PT INR APTT Sodium Potassium Chloride Carbon Dioxide Anion Gap BUN Creatinine Est GFR ( Amer) Est GFR (Non-Af Amer) POC Glucose (mg/dL) Random Glucose Hemoglobin A1c Calcium Phosphorus Magnesium Total Bilirubin AST ALT Alkaline Phosphatase Total Creatine Kinase 35 C-React Prot High Sens > 15.00 H Total Protein Albumin Globulin Albumin/Globulin Ratio Free T4 1.02 TSH 3rd Generation 6.96 H Vancomycin Trough Blood Type Blood Type Confirm Antibody Screen 05/04/17 05/04/17 08:33 11:42 WBC RBC Hgb Hct MCV MCH MCHC RDW Plt Count MPV Neut % (Auto) Lymph % (Auto) [place] % (Auto) Eos % (Auto) Baso % (Auto) Neut # Lymph # [place] # Eos # Baso # Neutrophils % (Manual) Band Neutrophils % Lymphocytes % (Manual) Monocytes % (Manual) Toxic Granulation Platelet Estimate Hypochromasia (manual) Anisocytosis (manual) ESR PT INR APTT Sodium Potassium Chloride Carbon Dioxide Anion Gap BUN Creatinine Est GFR ( Amer) Est GFR (Non-Af Amer) POC Glucose (mg/dL) 96 Random Glucose Hemoglobin A1c 5.8 Calcium Phosphorus Magnesium Total Bilirubin AST ALT Alkaline Phosphatase Total Creatine Kinase C-React Prot High Sens Total Protein Albumin Globulin Albumin/Globulin Ratio Free T4 TSH 3rd Generation Vancomycin Trough Blood Type Blood Type Confirm Antibody Screen Critical Care Progress Note - Nutrition Nutrition: Nutrition Category Date Time Status Heart Healthy Diet [DIET] Diets 05/04/17 Lunch Active Assessment/Plan (1) Hypotension Current Visit: Yes Status: Acute (2) Sepsis Current Visit: Yes Status: Acute (3) Altered mental status Current Visit: No Status: Acute (4) COPD (chronic obstructive pulmonary disease) Current Visit: No Status: Chronic Comment: Continue neb treatment patient with long historyand weight loss Consider PET scan, a repeat CAT scan of the chest after 3 months (5) OPHELIA (obstructive sleep apnea) Current Visit: No Status: Chronic Comment: obstructive sleep apnea versus obesity hypoventilation syndrome BiPAP at night Attending/Attestation - Attestation I have personally seen and examined this patient.: Yes I have fully participated in the care of the patient.: Yes I have reviewed all pertinent clinical information: Yes Notes (Text): 05/04/17 17:01 Patient seen and examined in the intensive care unit. Case discussed with staff in the morning. Status post-debridement of sacral wound and culture positive for Proteus Continue antibiotics Patient seen by neurology
--- NOTE | 2017-05-04 16:40 | CP.PCM.PN ---
Subjective - Date & Time of Evaluation Date of Evaluation: 05/04/17 Time of Evaluation: 13:20 - Subjective Subjective: clinically same Objective - Vital Signs/Intake and Output Vital Signs (last 24 hours): Temp Pulse Resp BP Pulse Ox 97.0 F L 103 H 13 117/71 97 05/04/17 16:00 05/04/17 16:00 05/04/17 16:00 05/04/17 15:43 05/04/17 16:00 Intake and Output: 05/04/17 05/04/17 06:59 18:59 Intake Total 1387.7 1860 Output Total 940 670 Balance 447.7 1190 - Medications Medications: Current Medications Albuterol/Ipratropium (Duoneb 3 Mg/0.5 Mg (3 Ml) Ud) 3 ml INH RQ6 [facility] Last Admin: 05/04/17 13:43 Dose: 3 ml Famotidine (Pepcid) 20 mg IVP DAILY [facility] Last Admin: 05/04/17 09:54 Dose: 20 mg Sodium Chloride (Sodium Chloride 0.9%) 1,000 mls @ 150 mls/hr IV .Q6H40M [facility] Last Admin: 05/04/17 12:48 Dose: Not Given Vancomycin HCl 1 gm/ Sodium (Chloride) 250 mls @ 166.7 mls/hr IVPB Q24H [facility] Last Admin: 05/04/17 09:53 Dose: 166.7 mls/hr Dopamine HCl/Dextrose (Dopamine 400mg/250ml D5w) 400 mg in 250 mls @ 8.301 mls/ hr IV .Q24H PRN; 2 MCG/KG/MIN PRN Reason: Protocol Last Titration: 05/04/17 05:00 Dose: 0 mcg/kg/min, 0 mls/hr Imipenem/Cilastatin Sodium 500 (mg/ Sodium Chloride) 100 mls @ 100 mls/hr IVPB Q6H [facility] Last Admin: 05/04/17 15:31 Dose: 100 mls/hr Lorazepam (Ativan) 1 mg IVP ONCE PRN Methylprednisolone (Solu-Medrol) 20 mg IVP BID [facility] Last Admin: 05/04/17 09:54 Dose: 20 mg Morphine Sulfate (Morphine) 2 mg SC Q4 PRN PRN Reason: Pain, moderate (4-7) Last Admin: 05/04/17 13:07 Dose: 2 mg Ondansetron HCl (Zofran Inj) 4 mg IVP Q4 PRN PRN Reason: Nausea/Vomiting - Labs Labs: 05/04/17 06:35 05/04/17 06:31 PT 16.9 SECONDS (9.7-12.2) H 05/04/17 06:35 INR 1.5 05/04/17 06:35 APTT 27 SECONDS (21-34) 05/04/17 06:35 - Constitutional Appears: Well - Head Exam Head Exam: ATRAUMATIC, NORMAL INSPECTION, NORMOCEPHALIC - Eye Exam Eye Exam: EOMI, Normal appearance, PERRL Pupil Exam: NORMAL ACCOMODATION, PERRL - ENT Exam ENT Exam: Mucous Membranes Moist, Normal Exam - Neck Exam Neck Exam: Full ROM, Normal Inspection. absent: Lymphadenopathy - Respiratory Exam Respiratory Exam: Decreased Breath Sounds - Cardiovascular Exam Cardiovascular Exam: REGULAR RHYTHM, +S1, +S2 - GI/Abdominal Exam GI & Abdominal Exam: Soft, Diminished Bowel Sounds - Rectal Exam Rectal Exam: Deferred
[2017-05-04 21:05] LABS: BASO % 0.1 % (0.0-2.0); HEMATOCRIT 23.4 % (34.0-47.0); LYMPH # 0.7 K/uL (1.0-4.3); MEAN CELL VOLUME 81.9 fL (81.0-99.0); MEAN CORPUSCULAR HEMOGLOBIN 25.9 pg (27.0-31.0); MEAN CORPUSCULAR HGB CONC 31.7 g/dL (33.0-37.0); MEAN PLATELET VOLUME 7.8 fL (7.2-11.7); MONO # 0.7 K/uL (0.0-0.8); PLATELET COUNT 348 K/uL (130-400); RED CELL DISTRIBUTION WIDTH 18.5 % (11.5-14.5); WHITE BLOOD COUNT 22.7 K/uL (4.8-10.8)
[2017-05-04 22:47] LABS: NEUTROPHIL 89 % (50-75); TOTAL CELLS COUNTED 100
[2017-05-05] MEDS: Albuterol-Ipratrop 3 mg / 0.5 (3 ml) UD INH SCH ×4 (01:16→19:48)
[2017-05-05] MEDS: Sodium Chloride 0.9% 1,000 ML IV SCH ×5 (01:22→21:59)
[2017-05-05] MEDS ORDERED: Metoprolol 1 mg/ml Inj IVP STA (04:21)
--- NOTE | 2017-05-05 05:15 | CP.PCM.PN ---
Subjective - Date & Time of Evaluation Date of Evaluation: 05/05/17 Time of Evaluation: 05:10 - Subjective Subjective: Patient agitated, Confuded,with HR 160- 170/min BP 109/77mmHg SpO2 97% Resp: Decreased breath sounds, no rales nor wheezes CVS: S1 S2 Tachycardic and Irregular Abdomen: Obese, soft, non-tender Neuro: Confused, agitated, Combative, No focal weakness EKG strip: A Fib with rate 150/hr A&P: #. New unset A Fib with rapid response - Metoprolol 5mg given IV with no significant response after 15 minutes. - Cardizem 10mg given IV push.HR dropped to 118- 130/min - Start Cardizem drip - Will need Cardiology consult #. Delirium with Agitation - Ativan 2mg given for agitation - Will now attempt to obtain a 12 lead EKG. Critical care time 30 minutes Ashwin Lozano MD Objective - Vital Signs/Intake and Output Vital Signs (last 24 hours): Temp Pulse Resp BP Pulse Ox 98.3 F 105 H 21 130/71 93 L 05/05/17 00:00 05/05/17 02:00 05/05/17 02:00 05/05/17 01:57 05/05/17 02:00 Intake and Output: 05/04/17 05/05/17 18:59 06:59 Intake Total 2180 1450 Output Total 1040 815 Balance 1140 635 - Medications Medications: Current Medications Albuterol/Ipratropium (Duoneb 3 Mg/0.5 Mg (3 Ml) Ud) 3 ml INH RQ6 [facility] Last Admin: 05/05/17 01:16 Dose: 3 ml Famotidine (Pepcid) 20 mg IVP DAILY [facility] Last Admin: 05/04/17 09:54 Dose: 20 mg Sodium Chloride (Sodium Chloride 0.9%) 1,000 mls @ 150 mls/hr IV .Q6H40M [facility] Last Admin: 05/05/17 02:19 Dose: Not Given Vancomycin HCl 1 gm/ Sodium (Chloride) 250 mls @ 166.7 mls/hr IVPB Q24H [facility] Last Admin: 05/04/17 09:53 Dose: 166.7 mls/hr Dopamine HCl/Dextrose (Dopamine 400mg/250ml D5w) 400 mg in 250 mls @ 8.301 mls/ hr IV .Q24H PRN; 2 MCG/KG/MIN PRN Reason: Protocol Last Titration: 05/04/17 05:00 Dose: 0 mcg/kg/min, 0 mls/hr Imipenem/Cilastatin Sodium 500 (mg/ Sodium Chloride) 100 mls @ 100 mls/hr IVPB Q6H [facility] Last Admin: 05/05/17 04:35 Dose: 100 mls/hr Lorazepam (Ativan) 1 mg IVP ONCE PRN Methylprednisolone (Solu-Medrol) 20 mg IVP BID [facility] Last Admin: 05/04/17 17:47 Dose: 20 mg Morphine Sulfate (Morphine) 2 mg SC Q4 PRN PRN Reason: Pain, moderate (4-7) Last Admin: 05/05/17 01:19 Dose: 2 mg Ondansetron HCl (Zofran Inj) 4 mg IVP Q4 PRN PRN Reason: Nausea/Vomiting - Labs Labs: 05/04/17 20:53 05/04/17 06:31 PT 16.9 SECONDS (9.7-12.2) H 05/04/17 06:35 INR 1.5 05/04/17 06:35 APTT 27 SECONDS (21-34) 05/04/17 06:35
[2017-05-05 05:47] LABS: ABG ALLEN TEST POS; ARTERIAL BLOOD HGB O2 SAT 96.8 % (95.0-98.0); CARBOXYHEMOGLOBIN 1.6 % (0.5-1.5); DRAW SITE RR; HHB 0.3 % (0.0-5.0); METHEMOGLOBIN 1.2 % (0.0-3.0)
[2017-05-05 07:00] LABS: BASO # 0.1 K/uL (0.0-0.2); BASO % 0.4 % (0.0-2.0); HEMATOCRIT 24.3 % (34.0-47.0); LYMPH # 1.4 K/uL (1.0-4.3); LYMPH % 6.4 % (20.0-40.0); MEAN CELL VOLUME 82.1 fL (81.0-99.0); MEAN CORPUSCULAR HEMOGLOBIN 25.7 pg (27.0-31.0); MEAN CORPUSCULAR HGB CONC 31.2 g/dL (33.0-37.0); MEAN PLATELET VOLUME 8.1 fL (7.2-11.7); MONO # 1.4 K/uL (0.0-0.8); MONO % 6.6 % (0.0-10.0); PLATELET COUNT 391 K/uL (130-400); RED CELL DISTRIBUTION WIDTH 18.3 % (11.5-14.5); WHITE BLOOD COUNT 21.5 K/uL (4.8-10.8)
[2017-05-05 07:01] LABS: INR 1.1
[2017-05-05 07:11] LABS: CHLORIDE 107 mmol/L (98-107); SODIUM 140 mmol/L (132-148)
[2017-05-05 07:12] LABS: POTASSIUM 3.2 mmol/L (3.6-5.2)
[2017-05-05 07:14] LABS: ALB/GLOB RATIO 0.8 (1.0-2.1); ALKALINE PHOSPHATASE 77 U/L (38-126); ALT/SGPT 26 U/L (9-52); AST/SGOT 22 U/L (14-36); BILIRUBIN,TOTAL 0.6 mg/dL (0.2-1.3); BLOOD UREA NITROGEN 18 mg/dL (7-17); CARBON DIOXIDE 25 mmol/L (22-30); GFR AFRICAN-AMERICAN > 60; GLUCOSE,RANDOM 87 mg/dL (65-105); PHOSPHOROUS 2.1 mg/dL (2.5-4.5); TOTAL PROTEIN 5.6 g/dL (6.3-8.3)
[2017-05-05 07:15] LABS: CALCIUM 8.9 mg/dl (8.6-10.4); MAGNESIUM 1.4 mg/dL (1.6-2.3)
[2017-05-05 08:56] LABS: MYELOCYTE 1 % (0-0); NEUTROPHIL 86 % (50-75); TOTAL CELLS COUNTED 100
--- NOTE | 2017-05-05 09:09 | CP.PCM.PN ---
<Yogi Bonner - Last Filed: 05/05/17 09:06> Subjective - Date & Time of Evaluation Date of Evaluation: 05/05/17 Time of Evaluation: 07:00 - Subjective Subjective: General Surgery- Dr. Almaraz Pt S&E at bedside this AM. No acute events overnight. Pt agitated this morning. Wound vac on with no leaks. Denies N/V CP/SOB. tolerating diet well. Objective - Vital Signs/Intake and Output Vital Signs (last 24 hours): Temp Pulse Resp BP Pulse Ox 98.7 F 127 H 22 111/68 97 05/05/17 04:00 05/05/17 07:00 05/05/17 07:00 05/05/17 06:57 05/05/17 07:00 Intake and Output: 05/05/17 05/05/17 06:59 18:59 Intake Total 2055 160 Output Total 1140 75 Balance 915 85 - Medications Medications: Current Medications Albuterol/Ipratropium (Duoneb 3 Mg/0.5 Mg (3 Ml) Ud) 3 ml INH RQ6 [facility] Last Admin: 05/05/17 07:41 Dose: 3 ml Famotidine (Pepcid) 20 mg IVP DAILY [facility] Last Admin: 05/04/17 09:54 Dose: 20 mg Sodium Chloride (Sodium Chloride 0.9%) 1,000 mls @ 150 mls/hr IV .Q6H40M [facility] Last Admin: 05/05/17 02:19 Dose: Not Given Vancomycin HCl 1 gm/ Sodium (Chloride) 250 mls @ 166.7 mls/hr IVPB Q24H [facility] Last Admin: 05/04/17 09:53 Dose: 166.7 mls/hr Dopamine HCl/Dextrose (Dopamine 400mg/250ml D5w) 400 mg in 250 mls @ 8.301 mls/ hr IV .Q24H PRN; 2 MCG/KG/MIN PRN Reason: Protocol Last Titration: 05/04/17 05:00 Dose: 0 mcg/kg/min, 0 mls/hr Imipenem/Cilastatin Sodium 500 (mg/ Sodium Chloride) 100 mls @ 100 mls/hr IVPB Q6H [facility] Last Admin: 05/05/17 04:35 Dose: 100 mls/hr Diltiazem HCl 125 mg/ Sodium (Chloride) 125 mls @ 5 mls/hr IV .Q24H [facility]; 5 MG/ HR PRN Reason: Protocol Last Admin: 05/05/17 06:30 Dose: 5 mg/hr, 5 mls/hr Lorazepam (Ativan) 1 mg IVP ONCE PRN Methylprednisolone (Solu-Medrol) 20 mg IVP BID [facility] Last Admin: 05/04/17 17:47 Dose: 20 mg Morphine Sulfate (Morphine) 2 mg SC Q4 PRN PRN Reason: Pain, moderate (4-7) Last Admin: 05/05/17 01:19 Dose: 2 mg Ondansetron HCl (Zofran Inj) 4 mg IVP Q4 PRN PRN Reason: Nausea/Vomiting - Labs Labs: 05/05/17 06:40 05/05/17 06:40 PT 12.4 SECONDS (9.7-12.2) H 05/05/17 06:40 INR 1.1 05/05/17 06:40 APTT 27 SECONDS (21-34) 05/04/17 06:35 - Constitutional Appears: No Acute Distress - Eye Exam Eye Exam: EOMI - Respiratory Exam Respiratory Exam: NORMAL BREATHING PATTERN. absent: Accessory Muscle Use, Rhonchi, Wheezes - Cardiovascular Exam Cardiovascular Exam: +S1, +S2 - GI/Abdominal Exam GI & Abdominal Exam: Soft. absent: Distended, Tenderness - Rectal Exam Additional comments: Wound vac in place. no leak. drainage serosang bandar some purulance in the wound vac canister - Neurological Exam Neurological Exam: Alert, Awake - Psychiatric Exam Psychiatric exam: Agitated - Skin Skin Exam: Normal Color Assessment and Plan - Assessment and Plan (Free Text) Assessment: 61F s/p I&D and debridement of sacral decub ulcer stage 4 POD#1 Plan: - c/w IV Abx - medical management - monitor wound vac output and seal - will change dressing tomorrow qD - further recs per Dr. Rufina Bonner PGY1 <Juan Almaraz - Last Filed: 05/08/17 17:52> Objective - Vital Signs/Intake and Output Vital Signs (last 24 hours): Temp Pulse Resp BP Pulse Ox 98.6 F 76 13 143/83 99 05/08/17 16:00 05/08/17 16:15 05/08/17 16:15 05/08/17 16:15 05/08/17 16:15 Intake and Output: 05/08/17 05/08/17 06:59 18:59 Intake Total 2122.0 1787.6 Output Total 1110 1835 Balance 1012.0 -47.4 - Medications Medications: Current Medications Albuterol/Ipratropium (Duoneb 3 Mg/0.5 Mg (3 Ml) Ud) 3 ml INH RQ6 RIK Last Admin: 05/08/17 13:37 Dose: Not Given Apixaban (Eliquis) 5 mg PO BID RIK Last Admin: 05/08/17 17:50 Dose: 5 mg Famotidine (Pepcid) 20 mg PO DAILY RIK Last Admin: 05/08/17 10:11 Dose: 20 mg Furosemide (Lasix) 40 mg PO DAILY [facility] Stop: 05/10/17 23:59 Last Admin: 05/08/17 10:10 Dose: 40 mg Vancomycin HCl 1 gm/ Sodium (Chloride) 250 mls @ 166.7 mls/hr IVPB Q24H [facility] Last Admin: 05/08/17 10:13 Dose: 166.7 mls/hr Diltiazem HCl 125 mg/ Sodium (Chloride) 125 mls @ 5 mls/hr IV .Q24H RIK; 5 MG/ HR PRN Reason: Protocol Last Admin: 05/07/17 05:58 Dose: Not Given Piperacillin Sod/Tazobactam Sod (Zosyn 3.375 Gm Iv Premix) 3.375 gm in 50 mls @ 100 mls/hr IVPB Q6H [facility] Last Admin: 05/08/17 13:02 Dose: 100 mls/hr Propofol (Diprivan) 1,000 mg in 100 mls @ 3.9 mls/hr IV .Q24H PRN; Protocol; 5 MCG/KG/MIN PRN Reason: TITRATE PER MD ORDER Last Titration: 05/08/17 15:00 Dose: 20 mcg/kg/min, 15.6 mls/hr Sodium Chloride (Sodium Chloride 0.9%) 1,000 mls @ 75 mls/hr IV .[id number] [facility] Last Admin: 05/08/17 10:16 Dose: 75 mls/hr Lorazepam (Ativan) 1 mg IVP ONCE PRN Methylprednisolone (Solu-Medrol) 20 mg IVP BID RIK Last Admin: 05/08/17 17:49 Dose: 20 mg Morphine Sulfate (Morphine) 2 mg SC Q4 PRN PRN Reason: Pain, moderate (4-7) Last Admin: 05/06/17 05:20 Dose: 2 mg Ondansetron HCl (Zofran Inj) 4 mg IVP Q4 PRN PRN Reason: Nausea/Vomiting - Labs Labs: 05/08/17 06:47 05/08/17 06:47 PT 12.4 SECONDS (9.7-12.2) H 05/05/17 06:40 INR 1.1 05/05/17 06:40 APTT 27 SECONDS (21-34) 05/04/17 06:35 Attending/Attestation - Attestation I have personally seen and examined this patient.: Yes I have fully participated in the care of the patient.: Yes I have reviewed all pertinent clinical information, including history, physical exam and plan: Yes Notes (Text): 05/08/17 17:52 Pt was seen and examined at bedside Agree with above note and assessment
[2017-05-05] MEDS ORDERED: Digoxin 500 mcg/2ml (0.5 mg/2ml) Inj IVP ONE (10:03)
[2017-05-05] MEDS: Magnesium Sulfate 1 gm in D5W 1 GM/100 ML BAG IVPB SCH ×2 (10:16→17:38)
[2017-05-05] MEDS: MethylPREDNISolone 40 mg Vial IVP SCH ×2 (10:18→17:44)
[2017-05-05 10:19] VITALS: PULSE 120
[2017-05-05] MEDS ORDERED: Potassium Ch 20mEq in D5W 1,000 ML IV SCH (11:00)
[2017-05-05 11:21] LABS: ANA TITER 1:40
--- NOTE | 2017-05-05 14:41 | CP.CCUPN ---
<Kelley Myers - Last Filed: 05/05/17 14:38> CCU Subjective - Physician Review Subjective (Free Text): Patient was seen and examined at bedside in the morning. Patient is more alert and awake today, but disoriented. She reports feeling a little better, but still has pain in her sacral region. Patient denies having chest pain, abdominal pain, nausea, vomiting, diarrhea, and fevers. 05/05/17 14:38 CCU Objective - Vital Signs / Intake & Output Intake and Output (Last 8hrs): Intake & Output 05/04/17 05/05/17 05/05/17 22:59 06:59 14:59 Intake Total 1820 1205 160 Output Total 940 700 75 Balance 880 505 85 Intake: Intake, IV Amount 1200 1205 160 Proximal Port 700 5 10 Right Distal Port 500 1200 150 Internal Jugular Right Medial Port 0 Internal Jugular Oral 620 Output: Drainage 350 50 Wound Vac 350 50 Urine 590 650 75 Urethral ([place]) 590 650 75 Other: # Bowel Movements 0 0 - Physical Exam Head: Positive for: Atraumatic, Normocephalic Extroacular Muscles: Positive for: EOMI Mouth: Positive for: Moist Mucous Membranes Respiratory/Chest: Positive for: Clear to Auscultation. Negative for: Decreased Breath Sounds Cardiovascular: Positive for: Regular Rate and Rhythm, Normal S1, S2 Abdomen: Positive for: Normal Bowel Sounds, Other (Obese). Negative for: Tenderness Rectal: Positive for: Other (Sacral wound) Upper Extremity: Positive for: Normal Inspection. Negative for: Edema Lower Extremity: Positive for: Edema Skin: Positive for: Warm, Dry, Normal Color, Other (sacral wound- copious drainage) Psychiatric: Positive for: Alert. Negative for: Oriented x 3 - Medications Active Medications: Active Medications Generic Name Dose Route Start Last Admin Trade Name Freq PRN Reason Stop Dose Admin Albuterol/Ipratropium 3 ml 05/03/17 02:00 05/05/17 14:02 Duoneb 3 Mg/0.5 Mg (3 Ml) Ud INH Not Given RQ6 RIK Famotidine 20 mg 05/02/17 22:00 05/05/17 10:18 Pepcid IVP 20 mg DAILY RIK Administration Sodium Chloride 1,000 mls @ 150 mls/hr 05/02/17 20:45 05/05/17 10:16 Sodium Chloride 0.9% IV 150 mls/hr .[id number] RIK Administration Vancomycin HCl 1 gm/ Sodium 250 mls @ 166.7 mls/hr 05/03/17 09:00 05/05/17 10 :17 Chloride IVPB 166.7 mls/hr Q24H RIK Administration Dopamine HCl/Dextrose 400 mg in 250 mls @ 8.301 mls/hr 05/03/17 08:30 05:00 Dopamine 400mg/250ml D5w IV 0 mcg/kg/min .Q24H PRN 0 mls/hr Protocol Titration 2 MCG/KG/MIN Imipenem/Cilastatin Sodium 500 100 mls @ 100 mls/hr 05/03/17 10:00 05/05/17 10:17 mg/ Sodium Chloride IVPB 100 mls/hr Q6H RIK Administration Diltiazem HCl 125 mg/ Sodium 125 mls @ 5 mls/hr 05/05/17 05:45 05/05/17 06:30 Chloride IV 5 mg/hr .Q24H RIK 5 mls/hr Protocol Administration 5 MG/HR Potassium Chloride 20 meq in 100 mls @ 50 mls/hr 05/05/17 12:30 05/05/17 13: 37 Potassium Chloride 20 Meq/100 Ml IVPB 05/05/17 16:29 50 mls/hr Q2H RIK Administration Lorazepam 1 mg 05/04/17 09:00 Ativan IVP ONCE PRN Methylprednisolone 20 mg 05/03/17 08:25 05/05/17 10:18 Solu-Medrol IVP 20 mg BID RIK Administration Morphine Sulfate 2 mg 05/04/17 12:37 05/05/17 10:15 Morphine SC 2 mg Q4 PRN Administration Pain, moderate (4-7) Ondansetron HCl 4 mg 05/04/17 09:41 Zofran Inj IVP Q4 PRN Nausea/Vomiting - Patient Studies Lab Studies: Microbiology Studies 05/04/17 08:45 Gram Stain - Final Sacral Wound Culture - Final Proteus Mirabilis Group C Streptococcus 05/02/17 18:30 MRSA Culture (Admit) - Final Naris MRSA DETECTED Lab Studies 05/05/17 05/05/17 05/05/17 Range/Units 11:24 06:40 06:40 WBC (4.8-10.8) K/uL RBC (3.80-5.20) Mil/uL Hgb (11.0-16.0) g/dL Hct (34.0-47.0) % MCV (81.0-99.0) fL MCH (27.0-31.0) pg MCHC (33.0-37.0) g/dL RDW (11.5-14.5) % Plt Count (130-400) K/uL MPV (7.2-11.7) fL Neut % (Auto) (50.0-75.0) % Lymph % (Auto) (20.0-40.0) % [place] % (Auto) (0.0-10.0) % Eos % (Auto) (0.0-4.0) % Baso % (Auto) (0.0-2.0) % Neut # (1.8-7.0) K/uL Lymph # (1.0-4.3) K/uL [place] # (0.0-0.8) K/uL Eos # (0.0-0.7) K/uL Baso # (0.0-0.2) K/uL Neutrophils % (Manual) (50-75) % Band Neutrophils % (0-2) % Lymphocytes % (Manual) (20-40) % Monocytes % (Manual) (0-10) % Myelocytes % (0-0) % Platelet Estimate (NORMAL) Hypochromasia (manual) Anisocytosis (manual) Microcytosis (manual) PT 12.4 H (9.7-12.2) SECONDS INR 1.1 Puncture Site pCO2 (35-45) mm/Hg pO2 (80-100) mm/Hg HCO3 (21-28) mmol/L ABG pH (7.35-7.45) ABG Total CO2 (22-28) mmol/L ABG O2 Saturation (95-98) % ABG Base Excess (-2.0-3.0) mmol/L ABG Hemoglobin (11.7-17.4) g/dL ABG Carboxyhemoglobin (0.5-1.5) % POC ABG HHb (Measured) (0.0-5.0) % ABG Methemoglobin (0.0-3.0) % Ming Test Hgb O2 Saturation (95.0-98.0) % Liter Flow Sodium 140 (132-148) mmol/L Potassium 3.2 L (3.6-5.2) mmol/L Chloride 107 (98-107) mmol/L Carbon Dioxide 25 (22-30) mmol/L Anion Gap 11 (10-20) BUN 18 H (7-17) mg/dL Creatinine 0.7 (0.7-1.2) MG/DL Est GFR ( Amer) > 60 Est GFR (Non-Af Amer) > 60 POC Glucose (mg/dL) 95 (65-110) mg/dL Random Glucose 87 (65-105) mg/dL Calcium 8.9 (8.6-10.4) mg/dl Phosphorus 2.1 L (2.5-4.5) mg/dL Magnesium 1.4 L (1.6-2.3) mg/dL Total Bilirubin 0.6 (0.2-1.3) mg/dL AST 22 (14-36) U/L ALT 26 (9-52) U/L Alkaline Phosphatase 77 (38-126) U/L Total Protein 5.6 L (6.3-8.3) g/dL Albumin 2.4 L (3.5-5.0) g/dL Globulin 3.2 (2.2-3.9) gm/dL Albumin/Globulin Ratio 0.8 L (1.0-2.1) Angiotensin Convert Enz (9-67) U/L LUPE 6 Profile (NEGATIVE) LUPE Titer LUPE Pattern C. difficile Ag & Toxin (NEGATIVE) 05/05/17 05/05/17 05/05/17 Range/Units 06:40 05:57 05:06 WBC 21.5 H (4.8-10.8) K/uL RBC 2.96 L (3.80-5.20) Mil/uL Hgb 7.6 L (11.0-16.0) g/dL Hct 24.3 L (34.0-47.0) % MCV 82.1 (81.0-99.0) fL MCH 25.7 L (27.0-31.0) pg MCHC 31.2 L (33.0-37.0) g/dL RDW 18.3 H (11.5-14.5) % Plt Count 391 (130-400) K/uL MPV 8.1 (7.2-11.7) fL Neut % (Auto) 86.6 H (50.0-75.0) % Lymph % (Auto) 6.4 L (20.0-40.0) % [place] % (Auto) 6.6 (0.0-10.0) % Eos % (Auto) 0.0 (0.0-4.0) % Baso % (Auto) 0.4 (0.0-2.0) % Neut # 18.6 H (1.8-7.0) K/uL Lymph # 1.4 (1.0-4.3) K/uL [place] # 1.4 H (0.0-0.8) K/uL Eos # 0.0 (0.0-0.7) K/uL Baso # 0.1 (0.0-0.2) K/uL Neutrophils % (Manual) 86 H (50-75) % Band Neutrophils % 3 H (0-2) % Lymphocytes % (Manual) 7 L (20-40) % Monocytes % (Manual) 3 (0-10) % Myelocytes % 1 H (0-0) % Platelet Estimate Normal (NORMAL) Hypochromasia (manual) Slight Anisocytosis (manual) Slight Microcytosis (manual) PT (9.7-12.2) SECONDS INR Puncture Site Rr pCO2 38 (35-45) mm/Hg pO2 97 (80-100) mm/Hg HCO3 25.7 (21-28) mmol/L ABG pH 7.43 (7.35-7.45) ABG Total CO2 26.4 (22-28) mmol/L ABG O2 Saturation 99.7 H (95-98) % ABG Base Excess 0.9 (-2.0-3.0) mmol/L ABG Hemoglobin 7.9 L (11.7-17.4) g/dL ABG Carboxyhemoglobin 1.6 H (0.5-1.5) % POC ABG HHb (Measured) 0.3 (0.0-5.0) % ABG Methemoglobin 1.2 (0.0-3.0) % Ming Test Pos Hgb O2 Saturation 96.8 (95.0-98.0) % Liter Flow 3.0 Sodium (132-148) mmol/L Potassium (3.6-5.2) mmol/L Chloride (98-107) mmol/L Carbon Dioxide (22-30) mmol/L Anion Gap (10-20) BUN (7-17) mg/dL Creatinine (0.7-1.2) MG/DL Est GFR ( Amer) Est GFR (Non-Af Amer) POC Glucose (mg/dL) 112 H (65-110) mg/dL Random Glucose (65-105) mg/dL Calcium (8.6-10.4) mg/dl Phosphorus (2.5-4.5) mg/dL Magnesium (1.6-2.3) mg/dL Total Bilirubin (0.2-1.3) mg/dL AST (14-36) U/L ALT (9-52) U/L Alkaline Phosphatase (38-126) U/L Total Protein (6.3-8.3) g/dL Albumin (3.5-5.0) g/dL Globulin (2.2-3.9) gm/dL Albumin/Globulin Ratio (1.0-2.1) Angiotensin Convert Enz (9-67) U/L LUPE 6 Profile (NEGATIVE) ULPE Titer LUPE Pattern C. difficile Ag & Toxin (NEGATIVE) 05/05/17 05/04/17 05/04/17 Range/Units 00:42 20:53 17:49 WBC 22.7 H (4.8-10.8) K/uL RBC 2.86 L (3.80-5.20) Mil/uL Hgb 7.4 L (11.0-16.0) g/dL Hct 23.4 L (34.0-47.0) % MCV 81.9 (81.0-99.0) fL MCH 25.9 L (27.0-31.0) pg MCHC 31.7 L (33.0-37.0) g/dL RDW 18.5 H (11.5-14.5) % Plt Count 348 (130-400) K/uL MPV 7.8 (7.2-11.7) fL Neut % (Auto) 93.9 H (50.0-75.0) % Lymph % (Auto) 3.0 L (20.0-40.0) % [place] % (Auto) 3.0 (0.0-10.0) % Eos % (Auto) 0.0 (0.0-4.0) % Baso % (Auto) 0.1 (0.0-2.0) % Neut # 21.3 H (1.8-7.0) K/uL Lymph # 0.7 L (1.0-4.3) K/uL [place] # 0.7 (0.0-0.8) K/uL Eos # 0.0 (0.0-0.7) K/uL Baso # 0.0 (0.0-0.2) K/uL Neutrophils % (Manual) 89 H (50-75) % Band Neutrophils % 2 (0-2) % Lymphocytes % (Manual) 5 L (20-40) % Monocytes % (Manual) 4 (0-10) % Myelocytes % (0-0) % Platelet Estimate Normal (NORMAL) Hypochromasia (manual) Slight Anisocytosis (manual) Microcytosis (manual) Slight PT (9.7-12.2) SECONDS INR Puncture Site pCO2 (35-45) mm/Hg pO2 (80-100) mm/Hg HCO3 (21-28) mmol/L ABG pH (7.35-7.45) ABG Total CO2 (22-28) mmol/L ABG O2 Saturation (95-98) % ABG Base Excess (-2.0-3.0) mmol/L ABG Hemoglobin (11.7-17.4) g/dL ABG Carboxyhemoglobin (0.5-1.5) % POC ABG HHb (Measured) (0.0-5.0) % ABG Methemoglobin (0.0-3.0) % Ming Test Hgb O2 Saturation (95.0-98.0) % Liter Flow Sodium (132-148) mmol/L Potassium (3.6-5.2) mmol/L Chloride (98-107) mmol/L Carbon Dioxide (22-30) mmol/L Anion Gap (10-20) BUN (7-17) mg/dL Creatinine (0.7-1.2) MG/DL Est GFR ( Amer) Est GFR (Non-Af Amer) POC Glucose (mg/dL) 106 117 H (65-110) mg/dL Random Glucose (65-105) mg/dL Calcium (8.6-10.4) mg/dl Phosphorus (2.5-4.5) mg/dL Magnesium (1.6-2.3) mg/dL Total Bilirubin (0.2-1.3) mg/dL AST (14-36) U/L ALT (9-52) U/L Alkaline Phosphatase (38-126) U/L Total Protein (6.3-8.3) g/dL Albumin (3.5-5.0) g/dL Globulin (2.2-3.9) gm/dL Albumin/Globulin Ratio (1.0-2.1) Angiotensin Convert Enz (9-67) U/L LUPE 6 Profile (NEGATIVE) LUPE Titer LUPE Pattern C. difficile Ag & Toxin (NEGATIVE) 05/04/17 05/04/17 05/03/17 Range/Units 08:29 08:29 08:26 WBC (4.8-10.8) K/uL RBC (3.80-5.20) Mil/uL Hgb (11.0-16.0) g/dL Hct (34.0-47.0) % MCV (81.0-99.0) fL MCH (27.0-31.0) pg MCHC (33.0-37.0) g/dL RDW (11.5-14.5) % Plt Count (130-400) K/uL MPV (7.2-11.7) fL Neut % (Auto) (50.0-75.0) % Lymph % (Auto) (20.0-40.0) % [place] % (Auto) (0.0-10.0) % Eos % (Auto) (0.0-4.0) % Baso % (Auto) (0.0-2.0) % Neut # (1.8-7.0) K/uL Lymph # (1.0-4.3) K/uL [place] # (0.0-0.8) K/uL Eos # (0.0-0.7) K/uL Baso # (0.0-0.2) K/uL Neutrophils % (Manual) (50-75) % Band Neutrophils % (0-2) % Lymphocytes % (Manual) (20-40) % Monocytes % (Manual) (0-10) % Myelocytes % (0-0) % Platelet Estimate (NORMAL) Hypochromasia (manual) Anisocytosis (manual) Microcytosis (manual) PT (9.7-12.2) SECONDS INR Puncture Site pCO2 (35-45) mm/Hg pO2 (80-100) mm/Hg HCO3 (21-28) mmol/L ABG pH (7.35-7.45) ABG Total CO2 (22-28) mmol/L ABG O2 Saturation (95-98) % ABG Base Excess (-2.0-3.0) mmol/L ABG Hemoglobin (11.7-17.4) g/dL ABG Carboxyhemoglobin (0.5-1.5) % POC ABG HHb (Measured) (0.0-5.0) % ABG Methemoglobin (0.0-3.0) % Ming Test Hgb O2 Saturation (95.0-98.0) % Liter Flow Sodium (132-148) mmol/L Potassium (3.6-5.2) mmol/L Chloride (98-107) mmol/L Carbon Dioxide (22-30) mmol/L Anion Gap (10-20) BUN (7-17) mg/dL Creatinine (0.7-1.2) MG/DL Est GFR ( Amer) Est GFR (Non-Af Amer) POC Glucose (mg/dL) (65-110) mg/dL Random Glucose (65-105) mg/dL Calcium (8.6-10.4) mg/dl Phosphorus (2.5-4.5) mg/dL Magnesium (1.6-2.3) mg/dL Total Bilirubin (0.2-1.3) mg/dL AST (14-36) U/L ALT (9-52) U/L Alkaline Phosphatase (38-126) U/L Total Protein (6.3-8.3) g/dL Albumin (3.5-5.0) g/dL Globulin (2.2-3.9) gm/dL Albumin/Globulin Ratio (1.0-2.1) Angiotensin Convert Enz 27 (9-67) U/L LUPE 6 Profile Positive H (NEGATIVE) LUPE Titer 1:40 H LUPE Pattern Speckled H C. difficile Ag & Toxin Negative (NEGATIVE) Laboratory Results - last 24 hr 05/03/17 05/04/17 05/04/17 08:26 08:29 08:29 WBC RBC Hgb Hct MCV MCH MCHC RDW Plt Count MPV Neut % (Auto) Lymph % (Auto) [place] % (Auto) Eos % (Auto) Baso % (Auto) Neut # Lymph # [place] # Eos # Baso # Neutrophils % (Manual) Band Neutrophils % Lymphocytes % (Manual) Monocytes % (Manual) Myelocytes % Platelet Estimate Hypochromasia (manual) Anisocytosis (manual) Microcytosis (manual) PT INR Puncture Site pCO2 pO2 HCO3 ABG pH ABG Total CO2 ABG O2 Saturation ABG Base Excess ABG Hemoglobin ABG Carboxyhemoglobin POC ABG HHb (Measured) ABG Methemoglobin Ming Test Hgb O2 Saturation Liter Flow Sodium Potassium Chloride Carbon Dioxide Anion Gap BUN Creatinine Est GFR ( Amer) Est GFR (Non-Af Amer) POC Glucose (mg/dL) Random Glucose Calcium Phosphorus Magnesium Total Bilirubin AST ALT Alkaline Phosphatase Total Protein Albumin Globulin Albumin/Globulin Ratio Angiotensin Convert Enz 27 LUPE 6 Profile Positive H LUPE Titer 1:40 H LUPE Pattern Speckled H C. difficile Ag & Toxin Negative 05/04/17 05/04/17 05/05/17 17:49 20:53 00:42 WBC 22.7 H RBC 2.86 L Hgb 7.4 L Hct 23.4 L MCV 81.9 MCH 25.9 L MCHC 31.7 L RDW 18.5 H Plt Count 348 MPV 7.8 Neut % (Auto) 93.9 H Lymph % (Auto) 3.0 L [place] % (Auto) 3.0 Eos % (Auto) 0.0 Baso % (Auto) 0.1 Neut # 21.3 H Lymph # 0.7 L [place] # 0.7 Eos # 0.0 Baso # 0.0 Neutrophils % (Manual) 89 H Band Neutrophils % 2 Lymphocytes % (Manual) 5 L Monocytes % (Manual) 4 Myelocytes % Platelet Estimate Normal Hypochromasia (manual) Slight Anisocytosis (manual) Microcytosis (manual) Slight PT INR Puncture Site pCO2 pO2 HCO3 ABG pH ABG Total CO2 ABG O2 Saturation ABG Base Excess ABG Hemoglobin ABG Carboxyhemoglobin POC ABG HHb (Measured) ABG Methemoglobin Ming Test Hgb O2 Saturation Liter Flow Sodium Potassium Chloride Carbon Dioxide Anion Gap BUN Creatinine Est GFR ( Amer) Est GFR (Non-Af Amer) POC Glucose (mg/dL) 117 H 106 Random Glucose Calcium Phosphorus Magnesium Total Bilirubin AST ALT Alkaline Phosphatase Total Protein Albumin Globulin Albumin/Globulin Ratio Angiotensin Convert Enz LUPE 6 Profile LUPE Titer LUPE Pattern C. difficile Ag & Toxin 05/05/17 05/05/17 05/05/17 05:06 05:57 06:40 WBC 21.5 H RBC 2.96 L Hgb 7.6 L Hct 24.3 L MCV 82.1 MCH 25.7 L MCHC 31.2 L RDW 18.3 H Plt Count 391 MPV 8.1 Neut % (Auto) 86.6 H Lymph % (Auto) 6.4 L [place] % (Auto) 6.6 Eos % (Auto) 0.0 Baso % (Auto) 0.4 Neut # 18.6 H Lymph # 1.4 [place] # 1.4 H Eos # 0.0 Baso # 0.1 Neutrophils % (Manual) 86 H Band Neutrophils % 3 H Lymphocytes % (Manual) 7 L Monocytes % (Manual) 3 Myelocytes % 1 H Platelet Estimate Normal Hypochromasia (manual) Slight Anisocytosis (manual) Slight Microcytosis (manual) PT INR Puncture Site Rr pCO2 38 pO2 97 HCO3 25.7 ABG pH 7.43 ABG Total CO2 26.4 ABG O2 Saturation 99.7 H ABG Base Excess 0.9 ABG Hemoglobin 7.9 L ABG Carboxyhemoglobin 1.6 H POC ABG HHb (Measured) 0.3 ABG Methemoglobin 1.2 Ming Test Pos Hgb O2 Saturation 96.8 Liter Flow 3.0 Sodium Potassium Chloride Carbon Dioxide Anion Gap BUN Creatinine Est GFR ( Amer) Est GFR (Non-Af Amer) POC Glucose (mg/dL) 112 H Random Glucose Calcium Phosphorus Magnesium Total Bilirubin AST ALT Alkaline Phosphatase Total Protein Albumin Globulin Albumin/Globulin Ratio Angiotensin Convert Enz LUPE 6 Profile LUPE Titer LUPE Pattern C. difficile Ag & Toxin 05/05/17 05/05/17 05/05/17 06:40 06:40 11:24 WBC RBC Hgb Hct MCV MCH MCHC RDW Plt Count MPV Neut % (Auto) Lymph % (Auto) [place] % (Auto) Eos % (Auto) Baso % (Auto) Neut # Lymph # [place] # Eos # Baso # Neutrophils % (Manual) Band Neutrophils % Lymphocytes % (Manual) Monocytes % (Manual) Myelocytes % Platelet Estimate Hypochromasia (manual) Anisocytosis (manual) Microcytosis (manual) PT 12.4 H INR 1.1 Puncture Site pCO2 pO2 HCO3 ABG pH ABG Total CO2 ABG O2 Saturation ABG Base Excess ABG Hemoglobin ABG Carboxyhemoglobin POC ABG HHb (Measured) ABG Methemoglobin Ming Test Hgb O2 Saturation Liter Flow Sodium 140 Potassium 3.2 L Chloride 107 Carbon Dioxide 25 Anion Gap 11 BUN 18 H Creatinine 0.7 Est GFR ( Amer) > 60 Est GFR (Non-Af Amer) > 60 POC Glucose (mg/dL) 95 Random Glucose 87 Calcium 8.9 Phosphorus 2.1 L Magnesium 1.4 L Total Bilirubin 0.6 AST 22 ALT 26 Alkaline Phosphatase 77 Total Protein 5.6 L Albumin 2.4 L Globulin 3.2 Albumin/Globulin Ratio 0.8 L Angiotensin Convert Enz LUPE 6 Profile LUPE Titer LUPE Pattern C. difficile Ag & Toxin EKG/Cardiology Studies: Cardiology / EKG Studies 05/05/17 04:38 EKG [ELECTROCARDIOGRAM] Stat Comment: Mode Of Transportation: PORTABLE Reason For Exam: Tachycardic Isolation: Contact Fingerstick Blood Sugar Results: 112 Review of Systems - Constitutional Constitutional: absent: Fever - Cardiovascular Cardiovascular: absent: Chest Pain, Dyspnea - Respiratory Respiratory: absent: Cough, Dyspnea - Gastrointestinal Gastrointestinal: absent: Abdominal Pain, Change in Stool Character - Musculoskeletal Musculoskeletal: Other (sacral wound- s/p surgical pain) - Neurological Neurological: absent: Dizziness, Headaches - Psychiatric Psychiatric: Confusion Critical Care Progress Note - Nutrition Nutrition: Nutrition Category Date Time Status Heart Healthy Diet [DIET] Diets 05/04/17 Lunch Active Assessment/Plan - Assessment and Plan (Free Text) Assessment: 60-year-old female with history of anxiety, depression, chronic back pain, possible obstructive sleep apnea, COPD, was brought in by the family members because of altered mental status. Patient is hypotensive and septic. Patient has sacral wound, likely cause of sepsis. Patient went to the OR today for I/D of sacral wound. Wound culture came back positive for proteus mirabilis, group c strep-- continue Primaxin and vanco. Neuro: - Patient is more alert and oriented today. AOx3 - Neurology consulted: Dr. Irvin, help appreciated - MRI: patient refused Pulm: CO2 retention with acute exacerbation secondary to sepsis - On BiPAP prn at night. NC at 3L - Duonebs - Monitor ABG CV: hypotensive - Secondary to sepsis - IV Fluid, stopped dopamine - Hx of DVT (6 weeks prior)--> Continue Eliquis 5mg PO - Venous dopplers: DVT in Right deep popliteal and left common femoral, femoral , and popliteal. Endo: no acute issues GI: no acute issues - Pepcid daily : no acute issues - UA: 1+ protein & blood, 4 Urobilinogen, 23 WBC, 8 RBC, Few bacteria. Heme: anemic - Monitor H/H Renal: - Elevated BUN/Cr--> decreasing (05/03/17), 36/1.4 - Monitor renal function - Hypokalemia: KCl given - Hypomagnesemia: Magnesium sulfate ID: Sepsis, leukocytosis, bandemia - ID consulted: Dr. Ornelas, help appreciated - Sacral wound- Proteus Mirabilis, Group C strep - Surgery consulted: Dr. Almaraz, help appreciated - Continue Primaxin, Vanco, [Discontinued Flagyl] - Wound care - C. Diff: negative Prophylaxis: - DVT: SCDs - GI: Pepcid daily - PT/OT <Howard Quiñones - Last Filed: 05/05/17 16:35> CCU Objective - Vital Signs / Intake & Output Vital Signs (Last 4 hours): Vital Signs Pulse Resp BP Pulse Ox 05/05/17 15:00 94 H 15 94 L 05/05/17 14:57 96 H 19 142/66 95 05/05/17 13:59 156/77 H 05/05/17 13:25 93 H 83 L Intake and Output (Last 8hrs): Intake & Output 05/05/17 05/05/17 05/05/17 06:59 14:59 22:59 Intake Total 1205 1680 160 Output Total 700 705 85 Balance 505 975 75 Intake: Intake, IV Amount 1205 1680 160 Proximal Port 5 80 10 Right Distal Port 1200 1200 150 Internal Jugular Right Medial Port 400 Internal Jugular Output: Drainage 50 60 5 Wound Vac 50 60 5 Urine 650 645 80 Urethral ([place]) 650 645 80 Other: # Bowel Movements 0 0 0 - Medications Active Medications: Active Medications Generic Name Dose Route Start Last Admin Trade Name Freq PRN Reason Stop Dose Admin Albuterol/Ipratropium 3 ml 05/03/17 02:00 05/05/17 14:02 Duoneb 3 Mg/0.5 Mg (3 Ml) Ud INH Not Given RQ6 RIK Apixaban 5 mg 05/05/17 16:00 Eliquis PO BID RIK Famotidine 20 mg 05/02/17 22:00 05/05/17 10:18 Pepcid IVP 20 mg DAILY RIK Administration Sodium Chloride 1,000 mls @ 150 mls/hr 05/02/17 20:45 05/05/17 15:43 Sodium Chloride 0.9% IV Not Given .[id number] RIK Vancomycin HCl 1 gm/ Sodium 250 mls @ 166.7 mls/hr 05/03/17 09:00 05/05/17 10 :17 Chloride IVPB 166.7 mls/hr Q24H RIK Administration Dopamine HCl/Dextrose 400 mg in 250 mls @ 8.301 mls/hr 05/03/17 08:30 05:00 Dopamine 400mg/250ml D5w IV 0 mcg/kg/min .Q24H PRN 0 mls/hr Protocol Titration 2 MCG/KG/MIN Imipenem/Cilastatin Sodium 500 100 mls @ 100 mls/hr 05/03/17 10:00 05/05/17 10:17 mg/ Sodium Chloride IVPB 100 mls/hr Q6H RIK Administration Diltiazem HCl 125 mg/ Sodium 125 mls @ 5 mls/hr 05/05/17 05:45 05/05/17 06:30 Chloride IV 5 mg/hr .Q24H RIK 5 mls/hr Protocol Administration 5 MG/HR Potassium Chloride 20 meq in 100 mls @ 50 mls/hr 05/05/17 12:30 05/05/17 14: 58 Potassium Chloride 20 Meq/100 Ml IVPB 05/05/17 16:29 50 mls/hr Q2H RIK Administration Lorazepam 1 mg 05/04/17 09:00 Ativan IVP ONCE PRN Methylprednisolone 20 mg 05/03/17 08:25 05/05/17 10:18 Solu-Medrol IVP 20 mg BID RIK Administration Morphine Sulfate 2 mg 05/04/17 12:37 05/05/17 14:56 Morphine SC 2 mg Q4 PRN Administration Pain, moderate (4-7) Ondansetron HCl 4 mg 05/04/17 09:41 Zofran Inj IVP Q4 PRN Nausea/Vomiting - Patient Studies Lab Studies: Microbiology Studies 05/04/17 08:45 Gram Stain - Final Sacral Wound Culture - Final Proteus Mirabilis Group C Streptococcus Lab Studies 05/05/17 05/05/17 05/05/17 Range/Units 11:24 06:40 06:40 WBC (4.8-10.8) K/uL RBC (3.80-5.20) Mil/uL Hgb (11.0-16.0) g/dL Hct (34.0-47.0) % MCV (81.0-99.0) fL MCH (27.0-31.0) pg MCHC (33.0-37.0) g/dL RDW (11.5-14.5) % Plt Count (130-400) K/uL MPV (7.2-11.7) fL Neut % (Auto) (50.0-75.0) % Lymph % (Auto) (20.0-40.0) % [place] % (Auto) (0.0-10.0) % Eos % (Auto) (0.0-4.0) % Baso % (Auto) (0.0-2.0) % Neut # (1.8-7.0) K/uL Lymph # (1.0-4.3) K/uL [place] # (0.0-0.8) K/uL Eos # (0.0-0.7) K/uL Baso # (0.0-0.2) K/uL Neutrophils % (Manual) (50-75) % Band Neutrophils % (0-2) % Lymphocytes % (Manual) (20-40) % Monocytes % (Manual) (0-10) % Myelocytes % (0-0) % Platelet Estimate (NORMAL) Hypochromasia (manual) Anisocytosis (manual) Microcytosis (manual) PT 12.4 H (9.7-12.2) SECONDS INR 1.1 Puncture Site pCO2 (35-45) mm/Hg pO2 (80-100) mm/Hg HCO3 (21-28) mmol/L ABG pH (7.35-7.45) ABG Total CO2 (22-28) mmol/L ABG O2 Saturation (95-98) % ABG Base Excess (-2.0-3.0) mmol/L ABG Hemoglobin (11.7-17.4) g/dL ABG Carboxyhemoglobin (0.5-1.5) % POC ABG HHb (Measured) (0.0-5.0) % ABG Methemoglobin (0.0-3.0) % Ming Test Hgb O2 Saturation (95.0-98.0) % Liter Flow Sodium 140 (132-148) mmol/L Potassium 3.2 L (3.6-5.2) mmol/L Chloride 107 (98-107) mmol/L Carbon Dioxide 25 (22-30) mmol/L Anion Gap 11 (10-20) BUN 18 H (7-17) mg/dL Creatinine 0.7 (0.7-1.2) MG/DL Est GFR ( Amer) > 60 Est GFR (Non-Af Amer) > 60 POC Glucose (mg/dL) 95 (65-110) mg/dL Random Glucose 87 (65-105) mg/dL Calcium 8.9 (8.6-10.4) mg/dl Phosphorus 2.1 L (2.5-4.5) mg/dL Magnesium 1.4 L (1.6-2.3) mg/dL Total Bilirubin 0.6 (0.2-1.3) mg/dL AST 22 (14-36) U/L ALT 26 (9-52) U/L Alkaline Phosphatase 77 (38-126) U/L Total Protein 5.6 L (6.3-8.3) g/dL Albumin 2.4 L (3.5-5.0) g/dL Globulin 3.2 (2.2-3.9) gm/dL Albumin/Globulin Ratio 0.8 L (1.0-2.1) Angiotensin Convert Enz (9-67) U/L LUPE 6 Profile (NEGATIVE) LUPE Titer LUPE Pattern C. difficile Ag & Toxin (NEGATIVE) 05/05/17 05/05/17 05/05/17 Range/Units 06:40 05:57 05:06 WBC 21.5 H (4.8-10.8) K/uL RBC 2.96 L (3.80-5.20) Mil/uL Hgb 7.6 L (11.0-16.0) g/dL Hct 24.3 L (34.0-47.0) % MCV 82.1 (81.0-99.0) fL MCH 25.7 L (27.0-31.0) pg MCHC 31.2 L (33.0-37.0) g/dL RDW 18.3 H (11.5-14.5) % Plt Count 391 (130-400) K/uL MPV 8.1 (7.2-11.7) fL Neut % (Auto) 86.6 H (50.0-75.0) % Lymph % (Auto) 6.4 L (20.0-40.0) % [place] % (Auto) 6.6 (0.0-10.0) % Eos % (Auto) 0.0 (0.0-4.0) % Baso % (Auto) 0.4 (0.0-2.0) % Neut # 18.6 H (1.8-7.0) K/uL Lymph # 1.4 (1.0-4.3) K/uL [place] # 1.4 H (0.0-0.8) K/uL Eos # 0.0 (0.0-0.7) K/uL Baso # 0.1 (0.0-0.2) K/uL Neutrophils % (Manual) 86 H (50-75) % Band Neutrophils % 3 H (0-2) % Lymphocytes % (Manual) 7 L (20-40) % Monocytes % (Manual) 3 (0-10) % Myelocytes % 1 H (0-0) % Platelet Estimate Normal (NORMAL) Hypochromasia (manual) Slight Anisocytosis (manual) Slight Microcytosis (manual) PT (9.7-12.2) SECONDS INR Puncture Site Rr pCO2 38 (35-45) mm/Hg pO2 97 (80-100) mm/Hg HCO3 25.7 (21-28) mmol/L ABG pH 7.43 (7.35-7.45) ABG Total CO2 26.4 (22-28) mmol/L ABG O2 Saturation 99.7 H (95-98) % ABG Base Excess 0.9 (-2.0-3.0) mmol/L ABG Hemoglobin 7.9 L (11.7-17.4) g/dL ABG Carboxyhemoglobin 1.6 H (0.5-1.5) % POC ABG HHb (Measured) 0.3 (0.0-5.0) % ABG Methemoglobin 1.2 (0.0-3.0) % Ming Test Pos Hgb O2 Saturation 96.8 (95.0-98.0) % Liter Flow 3.0 Sodium (132-148) mmol/L Potassium (3.6-5.2) mmol/L Chloride (98-107) mmol/L Carbon Dioxide (22-30) mmol/L Anion Gap (10-20) BUN (7-17) mg/dL Creatinine (0.7-1.2) MG/DL Est GFR ( Amer) Est GFR (Non-Af Amer) POC Glucose (mg/dL) 112 H (65-110) mg/dL Random Glucose (65-105) mg/dL Calcium (8.6-10.4) mg/dl Phosphorus (2.5-4.5) mg/dL Magnesium (1.6-2.3) mg/dL Total Bilirubin (0.2-1.3) mg/dL AST (14-36) U/L ALT (9-52) U/L Alkaline Phosphatase (38-126) U/L Total Protein (6.3-8.3) g/dL Albumin (3.5-5.0) g/dL Globulin (2.2-3.9) gm/dL Albumin/Globulin Ratio (1.0-2.1) Angiotensin Convert Enz (9-67) U/L LUPE 6 Profile (NEGATIVE) LUPE Titer LUPE Pattern C. difficile Ag & Toxin (NEGATIVE) 05/05/17 05/04/17 05/04/17 Range/Units 00:42 20:53 17:49 WBC 22.7 H (4.8-10.8) K/uL RBC 2.86 L (3.80-5.20) Mil/uL Hgb 7.4 L (11.0-16.0) g/dL Hct 23.4 L (34.0-47.0) % MCV 81.9 (81.0-99.0) fL MCH 25.9 L (27.0-31.0) pg MCHC 31.7 L (33.0-37.0) g/dL RDW 18.5 H (11.5-14.5) % Plt Count 348 (130-400) K/uL MPV 7.8 (7.2-11.7) fL Neut % (Auto) 93.9 H (50.0-75.0) % Lymph % (Auto) 3.0 L (20.0-40.0) % [place] % (Auto) 3.0 (0.0-10.0) % Eos % (Auto) 0.0 (0.0-4.0) % Baso % (Auto) 0.1 (0.0-2.0) % Neut # 21.3 H (1.8-7.0) K/uL Lymph # 0.7 L (1.0-4.3) K/uL [place] # 0.7 (0.0-0.8) K/uL Eos # 0.0 (0.0-0.7) K/uL Baso # 0.0 (0.0-0.2) K/uL Neutrophils % (Manual) 89 H (50-75) % Band Neutrophils % 2 (0-2) % Lymphocytes % (Manual) 5 L (20-40) % Monocytes % (Manual) 4 (0-10) % Myelocytes % (0-0) % Platelet Estimate Normal (NORMAL) Hypochromasia (manual) Slight Anisocytosis (manual) Microcytosis (manual) Slight PT (9.7-12.2) SECONDS INR Puncture Site pCO2 (35-45) mm/Hg pO2 (80-100) mm/Hg HCO3 (21-28) mmol/L ABG pH (7.35-7.45) ABG Total CO2 (22-28) mmol/L ABG O2 Saturation (95-98) % ABG Base Excess (-2.0-3.0) mmol/L ABG Hemoglobin (11.7-17.4) g/dL ABG Carboxyhemoglobin (0.5-1.5) % POC ABG HHb (Measured) (0.0-5.0) % ABG Methemoglobin (0.0-3.0) % Ming Test Hgb O2 Saturation (95.0-98.0) % Liter Flow Sodium (132-148) mmol/L Potassium (3.6-5.2) mmol/L Chloride (98-107) mmol/L Carbon Dioxide (22-30) mmol/L Anion Gap (10-20) BUN (7-17) mg/dL Creatinine (0.7-1.2) MG/DL Est GFR ( Amer) Est GFR (Non-Af Amer) POC Glucose (mg/dL) 106 117 H (65-110) mg/dL Random Glucose (65-105) mg/dL Calcium (8.6-10.4) mg/dl Phosphorus (2.5-4.5) mg/dL Magnesium (1.6-2.3) mg/dL Total Bilirubin (0.2-1.3) mg/dL AST (14-36) U/L ALT (9-52) U/L Alkaline Phosphatase (38-126) U/L Total Protein (6.3-8.3) g/dL Albumin (3.5-5.0) g/dL Globulin (2.2-3.9) gm/dL Albumin/Globulin Ratio (1.0-2.1) Angiotensin Convert Enz (9-67) U/L LUPE 6 Profile (NEGATIVE) LUPE Titer LUPE Pattern C. difficile Ag & Toxin (NEGATIVE) 05/04/17 05/04/17 05/03/17 Range/Units 08:29 08:29 08:26 WBC (4.8-10.8) K/uL RBC (3.80-5.20) Mil/uL Hgb (11.0-16.0) g/dL Hct (34.0-47.0) % MCV (81.0-99.0) fL MCH (27.0-31.0) pg MCHC (33.0-37.0) g/dL RDW (11.5-14.5) % Plt Count (130-400) K/uL MPV (7.2-11.7) fL Neut % (Auto) (50.0-75.0) % Lymph % (Auto) (20.0-40.0) % [place] % (Auto) (0.0-10.0) % Eos % (Auto) (0.0-4.0) % Baso % (Auto) (0.0-2.0) % Neut # (1.8-7.0) K/uL Lymph # (1.0-4.3) K/uL [place] # (0.0-0.8) K/uL Eos # (0.0-0.7) K/uL Baso # (0.0-0.2) K/uL Neutrophils % (Manual) (50-75) % Band Neutrophils % (0-2) % Lymphocytes % (Manual) (20-40) % Monocytes % (Manual) (0-10) % Myelocytes % (0-0) % Platelet Estimate (NORMAL) Hypochromasia (manual) Anisocytosis (manual) Microcytosis (manual) PT (9.7-12.2) SECONDS INR Puncture Site pCO2 (35-45) mm/Hg pO2 (80-100) mm/Hg HCO3 (21-28) mmol/L ABG pH (7.35-7.45) ABG Total CO2 (22-28) mmol/L ABG O2 Saturation (95-98) % ABG Base Excess (-2.0-3.0) mmol/L ABG Hemoglobin (11.7-17.4) g/dL ABG Carboxyhemoglobin (0.5-1.5) % POC ABG HHb (Measured) (0.0-5.0) % ABG Methemoglobin (0.0-3.0) % Ming Test Hgb O2 Saturation (95.0-98.0) % Liter Flow Sodium (132-148) mmol/L Potassium (3.6-5.2) mmol/L Chloride (98-107) mmol/L Carbon Dioxide (22-30) mmol/L Anion Gap (10-20) BUN (7-17) mg/dL Creatinine (0.7-1.2) MG/DL Est GFR ( Amer) Est GFR (Non-Af Amer) POC Glucose (mg/dL) (65-110) mg/dL Random Glucose (65-105) mg/dL Calcium (8.6-10.4) mg/dl Phosphorus (2.5-4.5) mg/dL Magnesium (1.6-2.3) mg/dL Total Bilirubin (0.2-1.3) mg/dL AST (14-36) U/L ALT (9-52) U/L Alkaline Phosphatase (38-126) U/L Total Protein (6.3-8.3) g/dL Albumin (3.5-5.0) g/dL Globulin (2.2-3.9) gm/dL Albumin/Globulin Ratio (1.0-2.1) Angiotensin Convert Enz 27 (9-67) U/L LUPE 6 Profile Positive H (NEGATIVE) LUPE Titer 1:40 H LUPE Pattern Speckled H C. difficile Ag & Toxin Negative (NEGATIVE) Laboratory Results - last 24 hr 05/03/17 05/04/17 05/04/17 08:26 08:29 08:29 WBC RBC Hgb Hct MCV MCH MCHC RDW Plt Count MPV Neut % (Auto) Lymph % (Auto) [place] % (Auto) Eos % (Auto) Baso % (Auto) Neut # Lymph # [place] # Eos # Baso # Neutrophils % (Manual) Band Neutrophils % Lymphocytes % (Manual) Monocytes % (Manual) Myelocytes % Platelet Estimate Hypochromasia (manual) Anisocytosis (manual) Microcytosis (manual) PT INR Puncture Site pCO2 pO2 HCO3 ABG pH ABG Total CO2 ABG O2 Saturation ABG Base Excess ABG Hemoglobin ABG Carboxyhemoglobin POC ABG HHb (Measured) ABG Methemoglobin Ming Test Hgb O2 Saturation Liter Flow Sodium Potassium Chloride Carbon Dioxide Anion Gap BUN Creatinine Est GFR ( Amer) Est GFR (Non-Af Amer) POC Glucose (mg/dL) Random Glucose Calcium Phosphorus Magnesium Total Bilirubin AST ALT Alkaline Phosphatase Total Protein Albumin Globulin Albumin/Globulin Ratio Angiotensin Convert Enz 27 LUPE 6 Profile Positive H LUPE Titer 1:40 H LUPE Pattern Speckled H C. difficile Ag & Toxin Negative 05/04/17 05/04/17 05/05/17 17:49 20:53 00:42 WBC 22.7 H RBC 2.86 L Hgb 7.4 L Hct 23.4 L MCV 81.9 MCH 25.9 L MCHC 31.7 L RDW 18.5 H Plt Count 348 MPV 7.8 Neut % (Auto) 93.9 H Lymph % (Auto) 3.0 L [place] % (Auto) 3.0 Eos % (Auto) 0.0 Baso % (Auto) 0.1 Neut # 21.3 H Lymph # 0.7 L [place] # 0.7 Eos # 0.0 Baso # 0.0 Neutrophils % (Manual) 89 H Band Neutrophils % 2 Lymphocytes % (Manual) 5 L Monocytes % (Manual) 4 Myelocytes % Platelet Estimate Normal Hypochromasia (manual) Slight Anisocytosis (manual) Microcytosis (manual) Slight PT INR Puncture Site pCO2 pO2 HCO3 ABG pH ABG Total CO2 ABG O2 Saturation ABG Base Excess ABG Hemoglobin ABG Carboxyhemoglobin POC ABG HHb (Measured) ABG Methemoglobin Ming Test Hgb O2 Saturation Liter Flow Sodium Potassium Chloride Carbon Dioxide Anion Gap BUN Creatinine Est GFR ( Amer) Est GFR (Non-Af Amer) POC Glucose (mg/dL) 117 H 106 Random Glucose Calcium Phosphorus Magnesium Total Bilirubin AST ALT Alkaline Phosphatase Total Protein Albumin Globulin Albumin/Globulin Ratio Angiotensin Convert Enz LUPE 6 Profile LUPE Titer LUPE Pattern C. difficile Ag & Toxin 05/05/17 05/05/17 05/05/17 05:06 05:57 06:40 WBC 21.5 H RBC 2.96 L Hgb 7.6 L Hct 24.3 L MCV 82.1 MCH 25.7 L MCHC 31.2 L RDW 18.3 H Plt Count 391 MPV 8.1 Neut % (Auto) 86.6 H Lymph % (Auto) 6.4 L [place] % (Auto) 6.6 Eos % (Auto) 0.0 Baso % (Auto) 0.4 Neut # 18.6 H Lymph # 1.4 [place] # 1.4 H Eos # 0.0 Baso # 0.1 Neutrophils % (Manual) 86 H Band Neutrophils % 3 H Lymphocytes % (Manual) 7 L Monocytes % (Manual) 3 Myelocytes % 1 H Platelet Estimate Normal Hypochromasia (manual) Slight Anisocytosis (manual) Slight Microcytosis (manual) PT INR Puncture Site Rr pCO2 38 pO2 97 HCO3 25.7 ABG pH 7.43 ABG Total CO2 26.4 ABG O2 Saturation 99.7 H ABG Base Excess 0.9 ABG Hemoglobin 7.9 L ABG Carboxyhemoglobin 1.6 H POC ABG HHb (Measured) 0.3 ABG Methemoglobin 1.2 Ming Test Pos Hgb O2 Saturation 96.8 Liter Flow 3.0 Sodium Potassium Chloride Carbon Dioxide Anion Gap BUN Creatinine Est GFR ( Amer) Est GFR (Non-Af Amer) POC Glucose (mg/dL) 112 H Random Glucose Calcium Phosphorus Magnesium Total Bilirubin AST ALT Alkaline Phosphatase Total Protein Albumin Globulin Albumin/Globulin Ratio Angiotensin Convert Enz LUPE 6 Profile LUPE Titer LUPE Pattern C. difficile Ag & Toxin 05/05/17 05/05/17 05/05/17 06:40 06:40 11:24 WBC RBC Hgb Hct MCV MCH MCHC RDW Plt Count MPV Neut % (Auto) Lymph % (Auto) [place] % (Auto) Eos % (Auto) Baso % (Auto) Neut # Lymph # [place] # Eos # Baso # Neutrophils % (Manual) Band Neutrophils % Lymphocytes % (Manual) Monocytes % (Manual) Myelocytes % Platelet Estimate Hypochromasia (manual) Anisocytosis (manual) Microcytosis (manual) PT 12.4 H INR 1.1 Puncture Site pCO2 pO2 HCO3 ABG pH ABG Total CO2 ABG O2 Saturation ABG Base Excess ABG Hemoglobin ABG Carboxyhemoglobin POC ABG HHb (Measured) ABG Methemoglobin Ming Test Hgb O2 Saturation Liter Flow Sodium 140 Potassium 3.2 L Chloride 107 Carbon Dioxide 25 Anion Gap 11 BUN 18 H Creatinine 0.7 Est GFR ( Amer) > 60 Est GFR (Non-Af Amer) > 60 POC Glucose (mg/dL) 95 Random Glucose 87 Calcium 8.9 Phosphorus 2.1 L Magnesium 1.4 L Total Bilirubin 0.6 AST 22 ALT 26 Alkaline Phosphatase 77 Total Protein 5.6 L Albumin 2.4 L Globulin 3.2 Albumin/Globulin Ratio 0.8 L Angiotensin Convert Enz LUPE 6 Profile LUPE Titer LUPE Pattern C. difficile Ag & Toxin EKG/Cardiology Studies: Cardiology / EKG Studies 05/05/17 04:38 EKG [ELECTROCARDIOGRAM] Stat Comment: Mode Of Transportation: PORTABLE Reason For Exam: Tachycardic Isolation: Contact Critical Care Progress Note - Nutrition Nutrition: Nutrition Category Date Time Status Heart Healthy Diet [DIET] Diets 05/04/17 Lunch Active Assessment/Plan (1) Hypotension Current Visit: Yes Status: Acute (2) Sepsis Current Visit: Yes Status: Acute (3) Altered mental status Current Visit: No Status: Acute (4) COPD (chronic obstructive pulmonary disease) Current Visit: No Status: Chronic Comment: Continue neb treatment patient with long historyand weight loss Consider PET scan, a repeat CAT scan of the chest after 3 months (5) OPHELIA (obstructive sleep apnea) Current Visit: No Status: Chronic Comment: obstructive sleep apnea versus obesity hypoventilation syndrome BiPAP at night Attending/Attestation - Attestation I have personally seen and examined this patient.: Yes I have fully participated in the care of the patient.: Yes I have reviewed all pertinent clinical information: Yes Notes (Text): 05/05/17 16:28 Patient seen and examined in the intensive care unit. Case discussed with all stiff in the morning rounds. Status post debridement of sacral decubiti Continue IV antibiotics Positive DVT and cont eliquis Case discussed with family at length Patient much more awake and responsive Neurology follow-up
[2017-05-05] MEDS ORDERED: Magnesium Sulfate 1 gm in D5W 1 GM/100 ML BAG IVPB ONE (17:17)
--- NOTE | 2017-05-05 18:06 | CP.PCM.PN ---
Subjective - Date & Time of Evaluation Date of Evaluation: 05/05/17 Time of Evaluation: 09:00 - Subjective Subjective: 61 yo female with sever spinal stenosis, chronic back pain chronically berdridden and copd admitted with septic shock secondary to infected decubitus pt is s/p I and D large stage IV decubitus ulcer may need additional imaging sacrum to r/o OM vs empiric rx vacx in place IV rx reordered cultures pending Objective - Vital Signs/Intake and Output Vital Signs (last 24 hours): Temp Pulse Resp BP Pulse Ox 98.2 F 94 H 15 142/66 94 L 05/05/17 08:00 05/05/17 15:00 05/05/17 15:00 05/05/17 14:57 05/05/17 15:00 Intake and Output: 05/05/17 05/05/17 06:59 18:59 Intake Total 2055 1860 Output Total 1140 790 Balance 915 1070 - Medications Medications: Current Medications Albuterol/Ipratropium (Duoneb 3 Mg/0.5 Mg (3 Ml) Ud) 3 ml INH RQ6 RIK Last Admin: 05/05/17 14:02 Dose: Not Given Apixaban (Eliquis) 5 mg PO BID RIK Last Admin: 05/05/17 17:38 Dose: 5 mg Famotidine (Pepcid) 20 mg IVP DAILY [facility] Last Admin: 05/05/17 10:18 Dose: 20 mg Sodium Chloride (Sodium Chloride 0.9%) 1,000 mls @ 150 mls/hr IV .Q6H40M [facility] Last Admin: 05/05/17 15:43 Dose: Not Given Vancomycin HCl 1 gm/ Sodium (Chloride) 250 mls @ 166.7 mls/hr IVPB Q24H RIK Last Admin: 05/05/17 10:17 Dose: 166.7 mls/hr Dopamine HCl/Dextrose (Dopamine 400mg/250ml D5w) 400 mg in 250 mls @ 8.301 mls/ hr IV .Q24H PRN; 2 MCG/KG/MIN PRN Reason: Protocol Last Titration: 05/04/17 05:00 Dose: 0 mcg/kg/min, 0 mls/hr Imipenem/Cilastatin Sodium 500 (mg/ Sodium Chloride) 100 mls @ 100 mls/hr IVPB Q6H [facility] Last Admin: 05/05/17 17:38 Dose: 100 mls/hr Diltiazem HCl 125 mg/ Sodium (Chloride) 125 mls @ 5 mls/hr IV .Q24H RIK; 5 MG/ HR PRN Reason: Protocol Last Titration: 05/05/17 08:00 Dose: 10 mg/hr, 10 mls/hr Lorazepam (Ativan) 1 mg IVP ONCE PRN Methylprednisolone (Solu-Medrol) 20 mg IVP BID RIK Last Admin: 05/05/17 17:44 Dose: 20 mg Morphine Sulfate (Morphine) 2 mg SC Q4 PRN PRN Reason: Pain, moderate (4-7) Last Admin: 05/05/17 14:56 Dose: 2 mg Ondansetron HCl (Zofran Inj) 4 mg IVP Q4 PRN PRN Reason: Nausea/Vomiting - Labs Labs: 05/05/17 06:40 05/05/17 06:40 PT 12.4 SECONDS (9.7-12.2) H 05/05/17 06:40 INR 1.1 05/05/17 06:40 APTT 27 SECONDS (21-34) 05/04/17 06:35 - Constitutional Appears: Non-toxic, Chronically Ill - Head Exam Head Exam: NORMOCEPHALIC - Eye Exam Eye Exam: PERRL. absent: Scleral icterus - ENT Exam ENT Exam: Mucous Membranes Dry - Neck Exam Neck Exam: absent: Lymphadenopathy - Respiratory Exam Respiratory Exam: Decreased Breath Sounds - Cardiovascular Exam Cardiovascular Exam: REGULAR RHYTHM - GI/Abdominal Exam GI & Abdominal Exam: Distended - Rectal Exam Rectal Exam: Deferred - Exam Exam: NORMAL INSPECTION - Extremities Exam Extremities Exam: absent: Pedal Edema - Back Exam Back Exam: absent: CVA tenderness (L), CVA tenderness (R) - Neurological Exam Neurological Exam: Altered Assessment and Plan (1) Dehydration Status: Acute (2) Hypotension Status: Acute (3) Sepsis Status: Acute (4) Morbidly obese Status: Chronic (5) Altered mental status Status: Acute (6) Anxiety Status: Acute (7) Cellulitis Status: Acute (8) Chronic pain Status: Acute (9) Weakness Status: Acute (10) COPD (chronic obstructive pulmonary disease) Status: Chronic (11) HTN (hypertension) Status: Chronic (12) OPHELIA (obstructive sleep apnea) Status: Chronic (13) Spinal stenosis Status: Chronic (14) SIRS (systemic inflammatory response syndrome) Status: Resolved
--- NOTE | 2017-05-05 18:07 | CP.PCM.PN ---
Subjective - Date & Time of Evaluation Date of Evaluation: 05/05/17 Time of Evaluation: 14:00 - Subjective Subjective: clinically same Objective - Vital Signs/Intake and Output Vital Signs (last 24 hours): Temp Pulse Resp BP Pulse Ox 98.2 F 94 H 15 142/66 94 L 05/05/17 08:00 05/05/17 15:00 05/05/17 15:00 05/05/17 14:57 05/05/17 15:00 Intake and Output: 05/05/17 05/05/17 06:59 18:59 Intake Total 2055 1860 Output Total 1140 790 Balance 915 1070 - Medications Medications: Current Medications Albuterol/Ipratropium (Duoneb 3 Mg/0.5 Mg (3 Ml) Ud) 3 ml INH RQ6 [facility] Last Admin: 05/05/17 14:02 Dose: Not Given Apixaban (Eliquis) 5 mg PO BID [facility] Last Admin: 05/05/17 17:38 Dose: 5 mg Famotidine (Pepcid) 20 mg IVP DAILY [facility] Last Admin: 05/05/17 10:18 Dose: 20 mg Sodium Chloride (Sodium Chloride 0.9%) 1,000 mls @ 150 mls/hr IV .Q6H40M [facility] Last Admin: 05/05/17 15:43 Dose: Not Given Vancomycin HCl 1 gm/ Sodium (Chloride) 250 mls @ 166.7 mls/hr IVPB Q24H [facility] Last Admin: 05/05/17 10:17 Dose: 166.7 mls/hr Dopamine HCl/Dextrose (Dopamine 400mg/250ml D5w) 400 mg in 250 mls @ 8.301 mls/ hr IV .Q24H PRN; 2 MCG/KG/MIN PRN Reason: Protocol Last Titration: 05/04/17 05:00 Dose: 0 mcg/kg/min, 0 mls/hr Imipenem/Cilastatin Sodium 500 (mg/ Sodium Chloride) 100 mls @ 100 mls/hr IVPB Q6H [facility] Last Admin: 05/05/17 17:38 Dose: 100 mls/hr Diltiazem HCl 125 mg/ Sodium (Chloride) 125 mls @ 5 mls/hr IV .Q24H RIK; 5 MG/ HR PRN Reason: Protocol Last Titration: 05/05/17 08:00 Dose: 10 mg/hr, 10 mls/hr Lorazepam (Ativan) 1 mg IVP ONCE PRN Methylprednisolone (Solu-Medrol) 20 mg IVP BID RIK Last Admin: 05/05/17 17:44 Dose: 20 mg Morphine Sulfate (Morphine) 2 mg SC Q4 PRN PRN Reason: Pain, moderate (4-7) Last Admin: 05/05/17 14:56 Dose: 2 mg Ondansetron HCl (Zofran Inj) 4 mg IVP Q4 PRN PRN Reason: Nausea/Vomiting - Labs Labs: 05/05/17 06:40 05/05/17 06:40 PT 12.4 SECONDS (9.7-12.2) H 05/05/17 06:40 INR 1.1 05/05/17 06:40 APTT 27 SECONDS (21-34) 05/04/17 06:35 - Constitutional Appears: Well - Head Exam Head Exam: ATRAUMATIC, NORMAL INSPECTION, NORMOCEPHALIC - Eye Exam Eye Exam: EOMI, Normal appearance, PERRL Pupil Exam: NORMAL ACCOMODATION, PERRL - ENT Exam ENT Exam: Mucous Membranes Moist, Normal Exam - Neck Exam Neck Exam: Full ROM, Normal Inspection. absent: Lymphadenopathy - Respiratory Exam Respiratory Exam: Decreased Breath Sounds - Cardiovascular Exam Cardiovascular Exam: REGULAR RHYTHM, +S1, +S2 - GI/Abdominal Exam GI & Abdominal Exam: Soft, Diminished Bowel Sounds - Rectal Exam Rectal Exam: Deferred
[2017-05-05] MEDS: Piperacill/Tazo 3.375gm in Dex 3.375 GM/50 ML BAG IVPB SCH (19:41)
[2017-05-05] MEDS ORDERED: Potassium Chloride 20 mEq ER Tab PO STA ×2 (20:13→21:51)
[2017-05-05 20:24] LABS: BASO % 0.1 % (0.0-2.0); EOS % 0.1 % (0.0-4.0); LYMPH % 5.7 % (20.0-40.0); MEAN CELL VOLUME 81.7 fL (81.0-99.0); MEAN CORPUSCULAR HEMOGLOBIN 25.4 pg (27.0-31.0); MEAN CORPUSCULAR HGB CONC 31.1 g/dL (33.0-37.0); MEAN PLATELET VOLUME 7.8 fL (7.2-11.7); MONO # 0.5 K/uL (0.0-0.8); MONO % 2.8 % (0.0-10.0); PLATELET COUNT 407 K/uL (130-400); RED CELL DISTRIBUTION WIDTH 18.8 % (11.5-14.5); WHITE BLOOD COUNT 18.4 K/uL (4.8-10.8)
[2017-05-05 20:59] LABS: NEUTROPHIL 92 % (50-75); TOTAL CELLS COUNTED 100
--- NOTE | 2017-05-05 22:31 | CP.PCM.CON ---
History of Present Illness - History of Present Illness History of Present Illness: Vascular Surgery Consult Re: LLE DVT HPI: 61F initially presented 2/2 AMS and was found to be septic from her sacral decubitous ulcer (stage 4). Underwent surgical debridement and her AMS is slowly improving. Vascular surgery consulted for possible IVC filter 2/2 B/L LE DVT (L popliteal DVT noted first on 03/29/17 US). Pt Reports mild pain on occasion in LLE. States "I knew about this since November." Says she had been taking an anticoagulant for this reason, but does not remember the name. Pt still having some confusion as she refused eliquis earlier. No other complaints at this time. PMH: COPD, anxiety, depression, chronic back pain PSH: R TKA, tonsillectomy, cholecystectomy, sacral decubitous debridement SH: former smoker quit 25 years ago. All: NKDA Meds: See MAR Review of Systems - Review of Systems All systems: reviewed and no additional remarkable complaints except (as per HPI ) Past Patient History - Past Medical History & Family History Past Medical History?: Yes - Past Social History Smoking Status: Light Smoker < 10 Cigarettes Daily - CARDIAC Hx Hypertension: Yes - PULMONARY Hx Pneumonia: Yes - NEUROLOGICAL Hx Neurological Disorder: No - HEENT Hx HEENT Problems: No - RENAL Hx Kidney Stones: Yes - ENDOCRINE/METABOLIC Hx Endocrine Disorders: No - HEMATOLOGICAL/ONCOLOGICAL Hx Blood Disorders: No - INTEGUMENTARY Other/Comment: Abdominal Fold reddened and weeping with foul smell - MUSCULOSKELETAL/RHEUMATOLOGICAL Hx Falls: Yes Hx Herniated Disk: Yes - GASTROINTESTINAL Hx Gastrointestinal Disorders: No - GENITOURINARY/GYNECOLOGICAL Hx Genitourinary Disorders: No - PSYCHIATRIC Hx Substance Use: No - SURGICAL HISTORY Hx Cholecystectomy: Yes - ANESTHESIA Hx Anesthesia: Yes Hx Anesthesia Reactions: No Hx Malignant Hyperthermia: No Meds Allergies/Adverse Reactions: Allergies Allergy/AdvReac Type Severity Reaction Status Date / Time No Known Allergies Allergy Verified 02/01/16 05:56 - Medications Medications: Current Medications Albuterol/Ipratropium (Duoneb 3 Mg/0.5 Mg (3 Ml) Ud) 3 ml INH RQ6 [facility] Last Admin: 05/05/17 19:48 Dose: Not Given Apixaban (Eliquis) 5 mg PO BID [facility] Last Admin: 05/05/17 19:09 Dose: Not Given Famotidine (Pepcid) 20 mg IVP DAILY [facility] Last Admin: 05/05/17 10:18 Dose: 20 mg Sodium Chloride (Sodium Chloride 0.9%) 1,000 mls @ 150 mls/hr IV .Q6H40M [facility] Last Admin: 05/05/17 21:59 Dose: 150 mls/hr Vancomycin HCl 1 gm/ Sodium (Chloride) 250 mls @ 166.7 mls/hr IVPB Q24H [facility] Last Admin: 05/05/17 10:17 Dose: 166.7 mls/hr Dopamine HCl/Dextrose (Dopamine 400mg/250ml D5w) 400 mg in 250 mls @ 8.301 mls/ hr IV .Q24H PRN; 2 MCG/KG/MIN PRN Reason: Protocol Last Titration: 05/04/17 05:00 Dose: 0 mcg/kg/min, 0 mls/hr Diltiazem HCl 125 mg/ Sodium (Chloride) 125 mls @ 5 mls/hr IV .Q24H RIK; 5 MG/ HR PRN Reason: Protocol Last Titration: 05/05/17 18:30 Dose: Infused Piperacillin Sod/Tazobactam Sod (Zosyn 3.375 Gm Iv Premix) 3.375 gm in 50 mls @ 100 mls/hr IVPB Q6H [facility] Last Admin: 05/05/17 19:41 Dose: 100 mls/hr Lorazepam (Ativan) 1 mg IVP ONCE PRN Methylprednisolone (Solu-Medrol) 20 mg IVP BID [facility] Last Admin: 05/05/17 17:44 Dose: 20 mg Morphine Sulfate (Morphine) 2 mg SC Q4 PRN PRN Reason: Pain, moderate (4-7) Last Admin: 05/05/17 19:52 Dose: 2 mg Ondansetron HCl (Zofran Inj) 4 mg IVP Q4 PRN PRN Reason: Nausea/Vomiting Physical Exam - Constitutional Appears: Non-toxic, No Acute Distress - Head Exam Head Exam: ATRAUMATIC, NORMOCEPHALIC - Eye Exam Eye Exam: EOMI. absent: Scleral icterus - ENT Exam ENT Exam: Mucous Membranes Moist Additional comments: trachea midline - Respiratory Exam Respiratory Exam: NORMAL BREATHING PATTERN. absent: Respiratory Distress - Cardiovascular Exam Cardiovascular Exam: RRR. absent: Tachycardia - GI/Abdominal Exam GI & Abdominal Exam: Soft. absent: Distended, Tenderness - Rectal Exam Rectal Exam: Deferred - Extremities Exam Extremities exam: Positive for: calf tenderness (minimal on L), pedal edema ( trace) Additional comments: no ropiness or erythema of b/l LE - Back Exam Back exam: absent: CVA tenderness (L), CVA tenderness (R) Additional comments: wound vac in place on decub - Neurological Exam Neurological exam: Alert, Altered - Skin Skin Exam: Dry, Warm Results - Vital Signs Recent Vital Signs: Last Vital Signs Temp 97.5 F L 05/05/17 20:00 Pulse 97 H 05/05/17 21:00 Resp 22 05/05/17 21:00 BP 166/87 H 05/05/17 20:57 Pulse Ox 92 L 05/05/17 21:00 - Labs Result Diagrams: 05/05/17 20:22 05/05/17 06:40 Labs: Laboratory Results - last 24 hr 05/03/17 05/04/17 05/04/17 08:26 08:29 08:29 WBC RBC Hgb Hct MCV MCH MCHC RDW Plt Count MPV Neut % (Auto) Lymph % (Auto) [place] % (Auto) Eos % (Auto) Baso % (Auto) Neut # Lymph # [place] # Eos # Baso # Neutrophils % (Manual) Band Neutrophils % Lymphocytes % (Manual) Monocytes % (Manual) Myelocytes % Platelet Estimate Hypochromasia (manual) Poikilocytosis (manual Anisocytosis (manual) Microcytosis (manual) PT INR Puncture Site pCO2 pO2 HCO3 ABG pH ABG Total CO2 ABG O2 Saturation ABG Base Excess ABG Hemoglobin ABG Carboxyhemoglobin POC ABG HHb (Measured) ABG Methemoglobin Ming Test Hgb O2 Saturation Liter Flow Sodium Potassium Chloride Carbon Dioxide Anion Gap BUN Creatinine Est GFR ( Amer) Est GFR (Non-Af Amer) POC Glucose (mg/dL) Random Glucose Calcium Phosphorus Magnesium Total Bilirubin AST ALT Alkaline Phosphatase Total Protein Albumin Globulin Albumin/Globulin Ratio Aldolase Angiotensin Convert Enz 27 Serum Immunofixation Detected H LUPE 6 Profile Positive H LUPE Titer 1:40 H LUPE Pattern Speckled H Thyroperoxidase Ab 568 H C. difficile Ag & Toxin Negative 05/04/17 05/04/17 05/05/17 08:29 20:53 00:42 WBC RBC Hgb Hct MCV MCH MCHC RDW Plt Count MPV Neut % (Auto) Lymph % (Auto) [place] % (Auto) Eos % (Auto) Baso % (Auto) Neut # Lymph # [place] # Eos # Baso # Neutrophils % (Manual) 89 H Band Neutrophils % 2 Lymphocytes % (Manual) 5 L Monocytes % (Manual) 4 Myelocytes % Platelet Estimate Normal Hypochromasia (manual) Slight Poikilocytosis (manual Anisocytosis (manual) Microcytosis (manual) Slight PT INR Puncture Site pCO2 pO2 HCO3 ABG pH ABG Total CO2 ABG O2 Saturation ABG Base Excess ABG Hemoglobin ABG Carboxyhemoglobin POC ABG HHb (Measured) ABG Methemoglobin Ming Test Hgb O2 Saturation Liter Flow Sodium Potassium Chloride Carbon Dioxide Anion Gap BUN Creatinine Est GFR ( Amer) Est GFR (Non-Af Amer) POC Glucose (mg/dL) 106 Random Glucose Calcium Phosphorus Magnesium Total Bilirubin AST ALT Alkaline Phosphatase Total Protein Albumin Globulin Albumin/Globulin Ratio Aldolase 8.7 H Angiotensin Convert Enz Serum Immunofixation LUPE 6 Profile LUPE Titer LUPE Pattern Thyroperoxidase Ab C. difficile Ag & Toxin 05/05/17 05/05/17 05/05/17 05:06 05:57 06:40 WBC 21.5 H RBC 2.96 L Hgb 7.6 L Hct 24.3 L MCV 82.1 MCH 25.7 L MCHC 31.2 L RDW 18.3 H Plt Count 391 MPV 8.1 Neut % (Auto) 86.6 H Lymph % (Auto) 6.4 L [place] % (Auto) 6.6 Eos % (Auto) 0.0 Baso % (Auto) 0.4 Neut # 18.6 H Lymph # 1.4 [place] # 1.4 H Eos # 0.0 Baso # 0.1 Neutrophils % (Manual) 86 H Band Neutrophils % 3 H Lymphocytes % (Manual) 7 L Monocytes % (Manual) 3 Myelocytes % 1 H Platelet Estimate Normal Hypochromasia (manual) Slight Poikilocytosis (manual Anisocytosis (manual) Slight Microcytosis (manual) PT INR Puncture Site Rr pCO2 38 pO2 97 HCO3 25.7 ABG pH 7.43 ABG Total CO2 26.4 ABG O2 Saturation 99.7 H ABG Base Excess 0.9 ABG Hemoglobin 7.9 L ABG Carboxyhemoglobin 1.6 H POC ABG HHb (Measured) 0.3 ABG Methemoglobin 1.2 Ming Test Pos Hgb O2 Saturation 96.8 Liter Flow 3.0 Sodium Potassium Chloride Carbon Dioxide Anion Gap BUN Creatinine Est GFR ( Amer) Est GFR (Non-Af Amer) POC Glucose (mg/dL) 112 H Random Glucose Calcium Phosphorus Magnesium Total Bilirubin AST ALT Alkaline Phosphatase Total Protein Albumin Globulin Albumin/Globulin Ratio Aldolase Angiotensin Convert Enz Serum Immunofixation LUPE 6 Profile LUPE Titer LUPE Pattern Thyroperoxidase Ab C. difficile Ag & Toxin 05/05/17 05/05/17 05/05/17 06:40 06:40 11:24 WBC RBC Hgb Hct MCV MCH MCHC RDW Plt Count MPV Neut % (Auto) Lymph % (Auto) [place] % (Auto) Eos % (Auto) Baso % (Auto) Neut # Lymph # [place] # Eos # Baso # Neutrophils % (Manual) Band Neutrophils % Lymphocytes % (Manual) Monocytes % (Manual) Myelocytes % Platelet Estimate Hypochromasia (manual) Poikilocytosis (manual Anisocytosis (manual) Microcytosis (manual) PT 12.4 H INR 1.1 Puncture Site pCO2 pO2 HCO3 ABG pH ABG Total CO2 ABG O2 Saturation ABG Base Excess ABG Hemoglobin ABG Carboxyhemoglobin POC ABG HHb (Measured) ABG Methemoglobin Ming Test Hgb O2 Saturation Liter Flow Sodium 140 Potassium 3.2 L Chloride 107 Carbon Dioxide 25 Anion Gap 11 BUN 18 H Creatinine 0.7 Est GFR ( Amer) > 60 Est GFR (Non-Af Amer) > 60 POC Glucose (mg/dL) 95 Random Glucose 87 Calcium 8.9 Phosphorus 2.1 L Magnesium 1.4 L Total Bilirubin 0.6 AST 22 ALT 26 Alkaline Phosphatase 77 Total Protein 5.6 L Albumin 2.4 L Globulin 3.2 Albumin/Globulin Ratio 0.8 L Aldolase Angiotensin Convert Enz Serum Immunofixation LUPE 6 Profile LUPE Titer LUPE Pattern Thyroperoxidase Ab C. difficile Ag & Toxin 05/05/17 05/05/17 17:42 20:22 WBC 18.4 H RBC 3.18 L Hgb 8.1 L Hct 26.0 L MCV 81.7 MCH 25.4 L MCHC 31.1 L RDW 18.8 H Plt Count 407 H MPV 7.8 Neut % (Auto) 91.3 H Lymph % (Auto) 5.7 L [place] % (Auto) 2.8 Eos % (Auto) 0.1 Baso % (Auto) 0.1 Neut # 16.8 H Lymph # 1.0 [place] # 0.5 Eos # 0.0 Baso # 0.0 Neutrophils % (Manual) 92 H Band Neutrophils % Lymphocytes % (Manual) 5 L Monocytes % (Manual) 3 Myelocytes % Platelet Estimate Normal Hypochromasia (manual) Slight Poikilocytosis (manual Slight Anisocytosis (manual) Slight Microcytosis (manual) PT INR Puncture Site pCO2 pO2 HCO3 ABG pH ABG Total CO2 ABG O2 Saturation ABG Base Excess ABG Hemoglobin ABG Carboxyhemoglobin POC ABG HHb (Measured) ABG Methemoglobin Ming Test Hgb O2 Saturation Liter Flow Sodium Potassium Chloride Carbon Dioxide Anion Gap BUN Creatinine Est GFR ( Amer) Est GFR (Non-Af Amer) POC Glucose (mg/dL) 117 H Random Glucose Calcium Phosphorus Magnesium Total Bilirubin AST ALT Alkaline Phosphatase Total Protein Albumin Globulin Albumin/Globulin Ratio Aldolase Angiotensin Convert Enz Serum Immunofixation LUPE 6 Profile LUPE Titer LUPE Pattern Thyroperoxidase Ab C. difficile Ag & Toxin - Imaging and Cardiology US - LE Status: Image reviewed by me, Pending Assessment & Plan - Assessment and Plan (Free Text) Assessment: 61F with B/L LE DVTs on prelim report Plan: Patient may be willing to use anticoagulation meds once she stops having confusion. Worries about fallingwhile on AC meds. Will revisit in the AM and discuss with pt. D/W Dr. Sarah Cortes PGY4
[2017-05-06] MEDS: Piperacill/Tazo 3.375gm in Dex 3.375 GM/50 ML BAG IVPB SCH ×4 (00:27→18:04)
[2017-05-06] MEDS: Albuterol-Ipratrop 3 mg / 0.5 (3 ml) UD INH SCH ×4 (01:15→19:43)
[2017-05-06] MEDS: Sodium Chloride 0.9% 1,000 ML IV SCH ×4 (04:38→21:15)
[2017-05-06 06:37] LABS: CHLORIDE 108 mmol/L (98-107)
[2017-05-06 06:38] LABS: POTASSIUM 4.2 mmol/L (3.6-5.2); SODIUM 143 mmol/L (132-148)
[2017-05-06 06:39] LABS: BASO % 0.1 % (0.0-2.0); EOS % 0.1 % (0.0-4.0); HEMATOCRIT 26.9 % (34.0-47.0); LYMPH # 1.6 K/uL (1.0-4.3); LYMPH % 7.5 % (20.0-40.0); MEAN CELL VOLUME 81.9 fL (81.0-99.0); MEAN CORPUSCULAR HEMOGLOBIN 25.8 pg (27.0-31.0); MEAN CORPUSCULAR HGB CONC 31.5 g/dL (33.0-37.0); MONO # 1.4 K/uL (0.0-0.8); MONO % 6.8 % (0.0-10.0); PLATELET COUNT 507 K/uL (130-400); RED CELL DISTRIBUTION WIDTH 18.6 % (11.5-14.5)
[2017-05-06 06:40] LABS: ALB/GLOB RATIO 0.8 (1.0-2.1); ALKALINE PHOSPHATASE 85 U/L (38-126); AST/SGOT 20 U/L (14-36); BILIRUBIN,TOTAL 0.8 mg/dL (0.2-1.3); BLOOD UREA NITROGEN 18 mg/dL (7-17); CARBON DIOXIDE 21 mmol/L (22-30); GFR AFRICAN-AMERICAN > 60; GLUCOSE,RANDOM 110 mg/dL (65-105); TOTAL PROTEIN 6.1 g/dL (6.3-8.3)
[2017-05-06 06:41] LABS: ALT/SGPT 22 U/L (9-52); CALCIUM 8.8 mg/dl (8.6-10.4); MAGNESIUM 1.8 mg/dL (1.6-2.3); PHOSPHOROUS 2.4 mg/dL (2.5-4.5)
[2017-05-06 08:40] LABS: METAMYELOCYTE 1 % (0-0); MYELOCYTE 1 % (0-0); NEUTROPHIL 83 % (50-75); TOTAL CELLS COUNTED 100
[2017-05-06 08:42] LABS: LARGE PLATELETS PRESENT
[2017-05-06] MEDS: MethylPREDNISolone 40 mg Vial IVP SCH ×2 (08:59→17:43)
[2017-05-06] MEDS ORDERED: Immune Globulin 50 MG/ML (OCTAGAM 5%) 10 GM/200 ML IV SCH (10:00)
[2017-05-06] MEDS ORDERED: Potassium Chloride 20 mEq ER Tab PO ONE (10:03)
--- NOTE | 2017-05-06 10:29 | PN ---
DATE: 05/06/2017 PHYSICAL EXAMINATION VITAL SIGNS: Blood pressure 158/98, mean arterial pressure of 118, respiratory rate32, pulse rate 102 and temperature 97.6. NEUROLOGIC: The patient is lethargic, easily arousable, follows command, significant paraplegia, arms are paretic, areflexic. Plantars are mute with significant posterior column dysfunction. 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 Thyroperoxidase is very high. 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 RECOMMENDATION: Intravenous immunoglobulin 0.4 g/kg for 5 days with diuretics. The patient also requested to have further workup to establish her collagen vascular disease. The requested to have an MRI that can be done when medically stable. Mario Irvin MD [id number]
[2017-05-06] MEDS ORDERED: IMMUNE GLOBULIN 50 MG/ML IV SCH (11:30)
--- NOTE | 2017-05-06 11:56 | CP.CCUPN ---
<Kelley MyersRenae - Last Filed: 05/06/17 11:54> CCU Subjective - Physician Review Subjective (Free Text): Patient was seen and examined at bedside in the morning. Patient is more alert and awake today, but disoriented. She reports feeling short of breath and has diarrhea. Patient reports she still has pain in her sacral region. Patient denies having chest pain, abdominal pain, nausea, vomiting, diarrhea, and fevers. 05/06/17 11:54 CCU Objective - Vital Signs / Intake & Output Vital Signs (Last 4 hours): Vital Signs Temp Pulse Resp BP Pulse Ox 05/06/17 11:44 88 05/06/17 11:00 101 H 30 H 165/93 H 95 05/06/17 10:00 102 H 31 H 141/75 96 05/06/17 09:00 103 H 34 H 142/82 95 05/06/17 08:00 98.7 F 93 H 35 H 121/73 95 05/06/17 07:59 92 H Intake and Output (Last 8hrs): Intake & Output 05/05/17 05/06/17 05/06/17 22:59 06:59 14:59 Intake Total 1675 1440 590 Output Total 695 490 Balance 980 950 590 Weight 269 lb 13.533 oz 286 lb 9.615 oz Intake: IV 105 Intake, IV Amount 1280 1440 590 Proximal Port 80 90 40 Right Distal Port 1200 1350 550 Internal Jugular Oral 290 Output: Drainage 10 Wound Vac 10 Urine 685 440 Urethral (Colmenares) 685 440 Other 50 Other: # Bowel Movements 0 1 - Physical Exam Head: Positive for: Atraumatic, Normocephalic Extroacular Muscles: Positive for: EOMI Mouth: Positive for: Moist Mucous Membranes Respiratory/Chest: Positive for: Accessory Muscle Use, Wheezes, Rales, Rhonchi, Tachypneic. Negative for: Clear to Auscultation, Decreased Breath Sounds Cardiovascular: Positive for: Normal S1, S2, Tachycardic Abdomen: Positive for: Normal Bowel Sounds, Other (Obese). Negative for: Tenderness Rectal: Positive for: Other (Sacral wound) Upper Extremity: Positive for: Normal Inspection. Negative for: Edema Lower Extremity: Positive for: Edema, Swelling Skin: Positive for: Warm, Dry, Normal Color, Other (sacral wound- copious drainage) Psychiatric: Positive for: Alert, Lethargic. Negative for: Oriented x 3 - Medications Active Medications: Active Medications Generic Name Dose Route Start Last Admin Trade Name Freq PRN Reason Stop Dose Admin Albuterol/Ipratropium 3 ml 05/03/17 02:00 05/06/17 07:57 Duoneb 3 Mg/0.5 Mg (3 Ml) Ud INH 3 ml RQ6 RIK Administration Apixaban 5 mg 05/05/17 16:00 05/06/17 09:00 Eliquis PO 5 mg BID RIK Administration Famotidine 20 mg 05/02/17 22:00 05/06/17 09:00 Pepcid IVP 20 mg DAILY RIK Administration Furosemide 40 mg 05/06/17 10:00 05/06/17 09:00 Lasix PO 05/10/17 23:59 40 mg DAILY RIK Administration Sodium Chloride 1,000 mls @ 150 mls/hr 05/02/17 20:45 05/06/17 06:43 Sodium Chloride 0.9% IV 150 mls/hr .[id number] RIK Administration Vancomycin HCl 1 gm/ Sodium 250 mls @ 166.7 mls/hr 05/03/17 09:00 05/06/17 08 :56 Chloride IVPB 166.7 mls/hr Q24H RIK Administration Diltiazem HCl 125 mg/ Sodium 125 mls @ 5 mls/hr 05/05/17 05:45 05/06/17 05:19 Chloride IV 10 mg/hr .Q24H RIK 10 mls/hr Protocol Administration 5 MG/HR Piperacillin Sod/Tazobactam Sod 3.375 gm in 50 mls @ 100 mls/hr 05/05/17 19: 00 05/06/17 06:26 Zosyn 3.375 Gm Iv Premix IVPB 100 mls/hr Q6H RIK Administration Immune Globulin 1,000 mls @ 0 mls/hr 05/06/17 11:30 05/06/17 11:37 Octagam 5% IV 50 mls/hr DAILY RIK Administration UD Lorazepam 1 mg 05/04/17 09:00 Ativan IVP ONCE PRN Methylprednisolone 20 mg 05/03/17 08:25 05/06/17 08:59 Solu-Medrol IVP 20 mg BID RIK Administration Morphine Sulfate 2 mg 05/04/17 12:37 05/06/17 05:20 Morphine SC 2 mg Q4 PRN Administration Pain, moderate (4-7) Ondansetron HCl 4 mg 05/04/17 09:41 Zofran Inj IVP Q4 PRN Nausea/Vomiting - Patient Studies Lab Studies: Microbiology Studies 05/04/17 08:45 Gram Stain - Final Sacral Wound Culture - Final Proteus Mirabilis Group C Streptococcus Lab Studies 05/06/17 05/06/17 05/06/17 Range/Units 11:20 10:27 06:27 WBC 21.0 H (4.8-10.8) K/uL RBC 3.28 L (3.80-5.20) Mil/uL Hgb 8.5 L (11.0-16.0) g/dL Hct 26.9 L (34.0-47.0) % MCV 81.9 (81.0-99.0) fL MCH 25.8 L (27.0-31.0) pg MCHC 31.5 L (33.0-37.0) g/dL RDW 18.6 H (11.5-14.5) % Plt Count 507 H D (130-400) K/uL MPV 8.0 (7.2-11.7) fL Neut % (Auto) 85.5 H (50.0-75.0) % Lymph % (Auto) 7.5 L (20.0-40.0) % [place] % (Auto) 6.8 (0.0-10.0) % Eos % (Auto) 0.1 (0.0-4.0) % Baso % (Auto) 0.1 (0.0-2.0) % Neut # 18.0 H (1.8-7.0) K/uL Lymph # 1.6 (1.0-4.3) K/uL [place]arro # 1.4 H (0.0-0.8) K/uL Eos # 0.0 (0.0-0.7) K/uL Baso # 0.0 (0.0-0.2) K/uL Neutrophils % (Manual) 83 H (50-75) % Band Neutrophils % 1 (0-2) % Lymphocytes % (Manual) 6 L (20-40) % Monocytes % (Manual) 8 (0-10) % Metamyelocytes % 1 H (0-0) % Myelocytes % 1 H (0-0) % Platelet Estimate Increased H (NORMAL) Large Platelets Present Hypochromasia (manual) Slight Poikilocytosis (manual Slight Basophilic Stippling Slight Anisocytosis (manual) Slight ESR 85 H (0-20) mm/hr Sodium (132-148) mmol/L Potassium (3.6-5.2) mmol/L Chloride (98-107) mmol/L Carbon Dioxide (22-30) mmol/L Anion Gap (10-20) BUN (7-17) mg/dL Creatinine (0.7-1.2) MG/DL Est GFR ( Amer) Est GFR (Non-Af Amer) POC Glucose (mg/dL) 131 H (65-110) mg/dL Random Glucose (65-105) mg/dL Calcium (8.6-10.4) mg/dl Phosphorus (2.5-4.5) mg/dL Magnesium (1.6-2.3) mg/dL Total Bilirubin (0.2-1.3) mg/dL AST (14-36) U/L ALT (9-52) U/L Alkaline Phosphatase (38-126) U/L Total Protein (6.3-8.3) g/dL Albumin (3.5-5.0) g/dL Globulin (2.2-3.9) gm/dL Albumin/Globulin Ratio (1.0-2.1) Aldolase (<=8.1) U/L Angiotensin Convert Enz (9-67) U/L Vancomycin Trough (5.0-10.0) ug/mL Serum Immunofixation (Not Detected) Thyroperoxidase Ab (<9) IU/mL C. difficile Ag & Toxin (NEGATIVE) HIV-1 RNA copies/mL (<20) copies/mL HIV-1 RNA logcopies/mL (<1.30) HIV-1 Genotyping (()) 05/06/17 05/06/17 05/06/17 Range/Units 06:20 06:20 05:13 WBC (4.8-10.8) K/uL RBC (3.80-5.20) Mil/uL Hgb (11.0-16.0) g/dL Hct (34.0-47.0) % MCV (81.0-99.0) fL MCH (27.0-31.0) pg MCHC (33.0-37.0) g/dL RDW (11.5-14.5) % Plt Count (130-400) K/uL MPV (7.2-11.7) fL Neut % (Auto) (50.0-75.0) % Lymph % (Auto) (20.0-40.0) % [place] % (Auto) (0.0-10.0) % Eos % (Auto) (0.0-4.0) % Baso % (Auto) (0.0-2.0) % Neut # (1.8-7.0) K/uL Lymph # (1.0-4.3) K/uL [place]arro # (0.0-0.8) K/uL Eos # (0.0-0.7) K/uL Baso # (0.0-0.2) K/uL Neutrophils % (Manual) (50-75) % Band Neutrophils % (0-2) % Lymphocytes % (Manual) (20-40) % Monocytes % (Manual) (0-10) % Metamyelocytes % (0-0) % Myelocytes % (0-0) % Platelet Estimate (NORMAL) Large Platelets Hypochromasia (manual) Poikilocytosis (manual Basophilic Stippling Anisocytosis (manual) ESR (0-20) mm/hr Sodium 143 (132-148) mmol/L Potassium 4.2 (3.6-5.2) mmol/L Chloride 108 H (98-107) mmol/L Carbon Dioxide 21 L (22-30) mmol/L Anion Gap 18 (10-20) BUN 18 H (7-17) mg/dL Creatinine 0.6 L (0.7-1.2) MG/DL Est GFR ( Amer) > 60 Est GFR (Non-Af Amer) > 60 POC Glucose (mg/dL) 121 H (65-110) mg/dL Random Glucose 110 H (65-105) mg/dL Calcium 8.8 (8.6-10.4) mg/dl Phosphorus 2.4 L (2.5-4.5) mg/dL Magnesium 1.8 (1.6-2.3) mg/dL Total Bilirubin 0.8 (0.2-1.3) mg/dL AST 20 (14-36) U/L ALT 22 (9-52) U/L Alkaline Phosphatase 85 (38-126) U/L Total Protein 6.1 L (6.3-8.3) g/dL Albumin 2.8 L (3.5-5.0) g/dL Globulin 3.4 (2.2-3.9) gm/dL Albumin/Globulin Ratio 0.8 L (1.0-2.1) Aldolase (<=8.1) U/L Angiotensin Convert Enz (9-67) U/L Vancomycin Trough 16.9 H (5.0-10.0) ug/mL Serum Immunofixation (Not Detected) Thyroperoxidase Ab (<9) IU/mL C. difficile Ag & Toxin (NEGATIVE) HIV-1 RNA copies/mL (<20) copies/mL HIV-1 RNA logcopies/mL (<1.30) HIV-1 Genotyping (()) 05/06/17 05/05/17 05/05/17 Range/Units 00:51 20:22 17:42 WBC 18.4 H (4.8-10.8) K/uL RBC 3.18 L (3.80-5.20) Mil/uL Hgb 8.1 L (11.0-16.0) g/dL Hct 26.0 L (34.0-47.0) % MCV 81.7 (81.0-99.0) fL MCH 25.4 L (27.0-31.0) pg MCHC 31.1 L (33.0-37.0) g/dL RDW 18.8 H (11.5-14.5) % Plt Count 407 H (130-400) K/uL MPV 7.8 (7.2-11.7) fL Neut % (Auto) 91.3 H (50.0-75.0) % Lymph % (Auto) 5.7 L (20.0-40.0) % [place]arro % (Auto) 2.8 (0.0-10.0) % Eos % (Auto) 0.1 (0.0-4.0) % Baso % (Auto) 0.1 (0.0-2.0) % Neut # 16.8 H (1.8-7.0) K/uL Lymph # 1.0 (1.0-4.3) K/uL Navarro # 0.5 (0.0-0.8) K/uL Eos # 0.0 (0.0-0.7) K/uL Baso # 0.0 (0.0-0.2) K/uL Neutrophils % (Manual) 92 H (50-75) % Band Neutrophils % (0-2) % Lymphocytes % (Manual) 5 L (20-40) % Monocytes % (Manual) 3 (0-10) % Metamyelocytes % (0-0) % Myelocytes % (0-0) % Platelet Estimate Normal (NORMAL) Large Platelets Hypochromasia (manual) Slight Poikilocytosis (manual Slight Basophilic Stippling Anisocytosis (manual) Slight ESR (0-20) mm/hr Sodium (132-148) mmol/L Potassium (3.6-5.2) mmol/L Chloride (98-107) mmol/L Carbon Dioxide (22-30) mmol/L Anion Gap (10-20) BUN (7-17) mg/dL Creatinine (0.7-1.2) MG/DL Est GFR ( Amer) Est GFR (Non-Af Amer) POC Glucose (mg/dL) 122 H 117 H (65-110) mg/dL Random Glucose (65-105) mg/dL Calcium (8.6-10.4) mg/dl Phosphorus (2.5-4.5) mg/dL Magnesium (1.6-2.3) mg/dL Total Bilirubin (0.2-1.3) mg/dL AST (14-36) U/L ALT (9-52) U/L Alkaline Phosphatase (38-126) U/L Total Protein (6.3-8.3) g/dL Albumin (3.5-5.0) g/dL Globulin (2.2-3.9) gm/dL Albumin/Globulin Ratio (1.0-2.1) Aldolase (<=8.1) U/L Angiotensin Convert Enz (9-67) U/L Vancomycin Trough (5.0-10.0) ug/mL Serum Immunofixation (Not Detected) Thyroperoxidase Ab (<9) IU/mL C. difficile Ag & Toxin (NEGATIVE) HIV-1 RNA copies/mL (<20) copies/mL HIV-1 RNA logcopies/mL (<1.30) HIV-1 Genotyping (()) 05/04/17 05/04/17 05/03/17 Range/Units 08:29 08:29 08:26 WBC (4.8-10.8) K/uL RBC (3.80-5.20) Mil/uL Hgb (11.0-16.0) g/dL Hct (34.0-47.0) % MCV (81.0-99.0) fL MCH (27.0-31.0) pg MCHC (33.0-37.0) g/dL RDW (11.5-14.5) % Plt Count (130-400) K/uL MPV (7.2-11.7) fL Neut % (Auto) (50.0-75.0) % Lymph % (Auto) (20.0-40.0) % [place] % (Auto) (0.0-10.0) % Eos % (Auto) (0.0-4.0) % Baso % (Auto) (0.0-2.0) % Neut # (1.8-7.0) K/uL Lymph # (1.0-4.3) K/uL Navarro # (0.0-0.8) K/uL Eos # (0.0-0.7) K/uL Baso # (0.0-0.2) K/uL Neutrophils % (Manual) (50-75) % Band Neutrophils % (0-2) % Lymphocytes % (Manual) (20-40) % Monocytes % (Manual) (0-10) % Metamyelocytes % (0-0) % Myelocytes % (0-0) % Platelet Estimate (NORMAL) Large Platelets Hypochromasia (manual) Poikilocytosis (manual Basophilic Stippling Anisocytosis (manual) ESR (0-20) mm/hr Sodium (132-148) mmol/L Potassium (3.6-5.2) mmol/L Chloride (98-107) mmol/L Carbon Dioxide (22-30) mmol/L Anion Gap (10-20) BUN (7-17) mg/dL Creatinine (0.7-1.2) MG/DL Est GFR ( Amer) Est GFR (Non-Af Amer) POC Glucose (mg/dL) (65-110) mg/dL Random Glucose (65-105) mg/dL Calcium (8.6-10.4) mg/dl Phosphorus (2.5-4.5) mg/dL Magnesium (1.6-2.3) mg/dL Total Bilirubin (0.2-1.3) mg/dL AST (14-36) U/L ALT (9-52) U/L Alkaline Phosphatase (38-126) U/L Total Protein (6.3-8.3) g/dL Albumin (3.5-5.0) g/dL Globulin (2.2-3.9) gm/dL Albumin/Globulin Ratio (1.0-2.1) Aldolase 8.7 H (<=8.1) U/L Angiotensin Convert Enz 27 (9-67) U/L Vancomycin Trough (5.0-10.0) ug/mL Serum Immunofixation Detected H (Not Detected) Thyroperoxidase Ab 568 H (<9) IU/mL C. difficile Ag & Toxin Negative (NEGATIVE) HIV-1 RNA copies/mL <20 not detected (<20) copies/mL HIV-1 RNA logcopies/mL <1.30 not detected (<1.30) HIV-1 Genotyping (()) Laboratory Results - last 24 hr 05/03/17 05/04/17 05/04/17 08:26 08:29 08:29 WBC RBC Hgb Hct MCV MCH MCHC RDW Plt Count MPV Neut % (Auto) Lymph % (Auto) Navarro % (Auto) Eos % (Auto) Baso % (Auto) Neut # Lymph # [place] # Eos # Baso # Neutrophils % (Manual) Band Neutrophils % Lymphocytes % (Manual) Monocytes % (Manual) Metamyelocytes % Myelocytes % Platelet Estimate Large Platelets Hypochromasia (manual) Poikilocytosis (manual Basophilic Stippling Anisocytosis (manual) ESR Sodium Potassium Chloride Carbon Dioxide Anion Gap BUN Creatinine Est GFR ( Amer) Est GFR (Non-Af Amer) POC Glucose (mg/dL) Random Glucose Calcium Phosphorus Magnesium Total Bilirubin AST ALT Alkaline Phosphatase Total Protein Albumin Globulin Albumin/Globulin Ratio Aldolase 8.7 H Angiotensin Convert Enz 27 Vancomycin Trough Serum Immunofixation Detected H Thyroperoxidase Ab 568 H C. difficile Ag & Toxin Negative HIV-1 RNA copies/mL <20 not detected HIV-1 RNA logcopies/mL <1.30 not detected HIV-1 Genotyping 05/05/17 05/05/17 05/06/17 17:42 20:22 00:51 WBC 18.4 H RBC 3.18 L Hgb 8.1 L Hct 26.0 L MCV 81.7 MCH 25.4 L MCHC 31.1 L RDW 18.8 H Plt Count 407 H MPV 7.8 Neut % (Auto) 91.3 H Lymph % (Auto) 5.7 L [place] % (Auto) 2.8 Eos % (Auto) 0.1 Baso % (Auto) 0.1 Neut # 16.8 H Lymph # 1.0 Navarro # 0.5 Eos # 0.0 Baso # 0.0 Neutrophils % (Manual) 92 H Band Neutrophils % Lymphocytes % (Manual) 5 L Monocytes % (Manual) 3 Metamyelocytes % Myelocytes % Platelet Estimate Normal Large Platelets Hypochromasia (manual) Slight Poikilocytosis (manual Slight Basophilic Stippling Anisocytosis (manual) Slight ESR Sodium Potassium Chloride Carbon Dioxide Anion Gap BUN Creatinine Est GFR ( Amer) Est GFR (Non-Af Amer) POC Glucose (mg/dL) 117 H 122 H Random Glucose Calcium Phosphorus Magnesium Total Bilirubin AST ALT Alkaline Phosphatase Total Protein Albumin Globulin Albumin/Globulin Ratio Aldolase Angiotensin Convert Enz Vancomycin Trough Serum Immunofixation Thyroperoxidase Ab C. difficile Ag & Toxin HIV-1 RNA copies/mL HIV-1 RNA logcopies/mL HIV-1 Genotyping 05/06/17 05/06/17 05/06/17 05:13 06:20 06:20 WBC RBC Hgb Hct MCV MCH MCHC RDW Plt Count MPV Neut % (Auto) Lymph % (Auto) [place] % (Auto) Eos % (Auto) Baso % (Auto) Neut # Lymph # [place] # Eos # Baso # Neutrophils % (Manual) Band Neutrophils % Lymphocytes % (Manual) Monocytes % (Manual) Metamyelocytes % Myelocytes % Platelet Estimate Large Platelets Hypochromasia (manual) Poikilocytosis (manual Basophilic Stippling Anisocytosis (manual) ESR Sodium 143 Potassium 4.2 Chloride 108 H Carbon Dioxide 21 L Anion Gap 18 BUN 18 H Creatinine 0.6 L Est GFR ( Amer) > 60 Est GFR (Non-Af Amer) > 60 POC Glucose (mg/dL) 121 H Random Glucose 110 H Calcium 8.8 Phosphorus 2.4 L Magnesium 1.8 Total Bilirubin 0.8 AST 20 ALT 22 Alkaline Phosphatase 85 Total Protein 6.1 L Albumin 2.8 L Globulin 3.4 Albumin/Globulin Ratio 0.8 L Aldolase Angiotensin Convert Enz Vancomycin Trough 16.9 H Serum Immunofixation Thyroperoxidase Ab C. difficile Ag & Toxin HIV-1 RNA copies/mL HIV-1 RNA logcopies/mL HIV-1 Genotyping 05/06/17 05/06/17 05/06/17 06:27 10:27 11:20 WBC 21.0 H RBC 3.28 L Hgb 8.5 L Hct 26.9 L MCV 81.9 MCH 25.8 L MCHC 31.5 L RDW 18.6 H Plt Count 507 H D MPV 8.0 Neut % (Auto) 85.5 H Lymph % (Auto) 7.5 L [place] % (Auto) 6.8 Eos % (Auto) 0.1 Baso % (Auto) 0.1 Neut # 18.0 H Lymph # 1.6 Navarro # 1.4 H Eos # 0.0 Baso # 0.0 Neutrophils % (Manual) 83 H Band Neutrophils % 1 Lymphocytes % (Manual) 6 L Monocytes % (Manual) 8 Metamyelocytes % 1 H Myelocytes % 1 H Platelet Estimate Increased H Large Platelets Present Hypochromasia (manual) Slight Poikilocytosis (manual Slight Basophilic Stippling Slight Anisocytosis (manual) Slight ESR 85 H Sodium Potassium Chloride Carbon Dioxide Anion Gap BUN Creatinine Est GFR ( Amer) Est GFR (Non-Af Amer) POC Glucose (mg/dL) 131 H Random Glucose Calcium Phosphorus Magnesium Total Bilirubin AST ALT Alkaline Phosphatase Total Protein Albumin Globulin Albumin/Globulin Ratio Aldolase Angiotensin Convert Enz Vancomycin Trough Serum Immunofixation Thyroperoxidase Ab C. difficile Ag & Toxin HIV-1 RNA copies/mL HIV-1 RNA logcopies/mL HIV-1 Genotyping Fingerstick Blood Sugar Results: 121 Review of Systems - Constitutional Constitutional: absent: Fever - Cardiovascular Cardiovascular: Dyspnea. absent: Chest Pain - Respiratory Respiratory: Dyspnea - Gastrointestinal Gastrointestinal: Diarrhea. absent: Abdominal Pain, Constipation, Nausea, Vomiting - Musculoskeletal Musculoskeletal: Other (pain in her sacral region) - Neurological Neurological: absent: Dizziness, Headaches Critical Care Progress Note - Nutrition Nutrition: Nutrition Category Date Time Status Heart Healthy Diet [DIET] Diets 05/04/17 Lunch Active Assessment/Plan - Assessment and Plan (Free Text) Assessment: 60-year-old female with history of anxiety, depression, chronic back pain, possible obstructive sleep apnea, COPD, was brought in by the family members because of altered mental status. Patient is hypotensive and septic. Patient has sacral wound, likely cause of sepsis. Patient went to the OR today for I/D of sacral wound. Wound vac in place. Wound culture came back positive for proteus mirabilis, group c strep-- continue Primaxin and vanco. Patient has new onset of a-fib, started cardizem drip on 05/05/17. Neuro: - Delirum, agitated - Neurology consulted: Dr. Irvin, help appreciated - MRI: patient refused - As per neurology, patient will be started on IV IG for 5 days with diuretics; further work-up for collagen vascular disease (monoclonal gammopathy with LUPE profile +, LUPE titer 1:40, speckled; Thyroperoxidase is very high); patient has significant paraplegia, arms- paretic and areflexic. Pulm: CO2 retention with acute exacerbation secondary to sepsis - On BiPAP prn; NC at 3L - Duonebs - Monitor ABG CV: hypotensive, new onset A-Fib - Secondary to sepsis - IV Fluid, stopped dopamine - Hx of DVT (6 weeks prior)--> Continue Eliquis 5mg PO - Venous dopplers: DVT in Right deep popliteal and left common femoral, femoral , and popliteal. - Cardizem drip for A-fib Endo: no acute issues GI: no acute issues - Pepcid daily : no acute issues - UA: 1+ protein & blood, 4 Urobilinogen, 23 WBC, 8 RBC, Few bacteria. Heme: anemic - Monitor H/H Renal: - Elevated BUN/Cr--> improving, 18/0.6 on 05/06/17 - Monitor renal function - Hypokalemia: 4.2; Resolved - Hypomagnesemia: Resolved ID: Sepsis, leukocytosis, bandemia - ID consulted: Dr. Mangia, help appreciated - Sacral wound- Proteus Mirabilis, Group C strep - Surgery consulted: Dr. Almaraz, help appreciated - Continue Primaxin, Vanco, [Discontinued Flagyl] - Wound care - C. Diff: negative Prophylaxis: - DVT: SCDs - GI: Pepcid daily - PT/OT <RosibelfMartinez - Last Filed: 05/06/17 18:52> CCU Objective - Vital Signs / Intake & Output Vital Signs (Last 4 hours): Vital Signs Temp Pulse Resp BP Pulse Ox 05/06/17 18:00 92 H 24 135/83 100 05/06/17 17:00 84 31 H 156/100 H 100 05/06/17 16:00 98 F 102 H 32 H 146/88 100 05/06/17 15:00 104 H 33 H 142/66 100 Intake and Output (Last 8hrs): Intake & Output 05/06/17 05/06/17 05/06/17 06:59 14:59 22:59 Intake Total 1440 1278 815 Output Total 490 785 515 Balance 950 493 300 Weight 269 lb 13.533 oz 286 lb 9.615 oz Intake: IV 140 Intake, IV Amount 1440 1278 675 Proximal Port 90 65 5 Right Distal Port 1350 1213 600 Internal Jugular Right Medial Port 70 Internal Jugular Output: Urine 440 785 515 Urethral (Colmenares) 440 785 515 Other 50 Other: # Bowel Movements 1 - Medications Active Medications: Active Medications Generic Name Dose Route Start Last Admin Trade Name Freq PRN Reason Stop Dose Admin Albuterol/Ipratropium 3 ml 05/03/17 02:00 05/06/17 13:54 Duoneb 3 Mg/0.5 Mg (3 Ml) Ud INH 3 ml RQ6 RIK Administration Apixaban 5 mg 05/05/17 16:00 05/06/17 17:42 Eliquis PO 5 mg BID RIK Administration Famotidine 20 mg 05/02/17 22:00 05/06/17 09:00 Pepcid IVP 20 mg DAILY RIK Administration Furosemide 40 mg 05/06/17 10:00 05/06/17 09:00 Lasix PO 05/10/17 23:59 40 mg DAILY RIK Administration Sodium Chloride 1,000 mls @ 150 mls/hr 05/02/17 20:45 05/06/17 18:05 Sodium Chloride 0.9% IV Not Given .[id number] RIK Vancomycin HCl 1 gm/ Sodium 250 mls @ 166.7 mls/hr 05/03/17 09:00 05/06/17 08 :56 Chloride IVPB 166.7 mls/hr Q24H RIK Administration Diltiazem HCl 125 mg/ Sodium 125 mls @ 5 mls/hr 05/05/17 05:45 05/06/17 17:38 Chloride IV 0 mg/hr .Q24H RIK 0 mls/hr Protocol Titration 5 MG/HR Piperacillin Sod/Tazobactam Sod 3.375 gm in 50 mls @ 100 mls/hr 05/05/17 19: 00 05/06/17 18:04 Zosyn 3.375 Gm Iv Premix IVPB 100 mls/hr Q6H RIK Administration Immune Globulin 1,000 mls @ 0 mls/hr 05/06/17 11:30 05/06/17 11:37 Octagam 5% IV 50 mls/hr DAILY RIK Administration UD Propofol 1,000 mg in 100 mls @ 3.9 mls/hr 05/06/17 16:23 05/06/17 17:39 Diprivan IV 25.64 mcg/kg/min .Q24H PRN 20 mls/hr TITRATE PER MD ORDER Titration Protocol 5 MCG/KG/MIN Lorazepam 1 mg 05/04/17 09:00 Ativan IVP ONCE PRN Methylprednisolone 20 mg 05/03/17 08:25 05/06/17 17:43 Solu-Medrol IVP 20 mg BID RIK Administration Morphine Sulfate 2 mg 05/04/17 12:37 05/06/17 05:20 Morphine SC 2 mg Q4 PRN Administration Pain, moderate (4-7) Ondansetron HCl 4 mg 05/04/17 09:41 Zofran Inj IVP Q4 PRN Nausea/Vomiting - Patient Studies Lab Studies: Lab Studies 05/06/17 05/06/17 05/06/17 Range/Units 18:45 17:38 11:20 WBC (4.8-10.8) K/uL RBC (3.80-5.20) Mil/uL Hgb (11.0-16.0) g/dL Hct (34.0-47.0) % MCV (81.0-99.0) fL MCH (27.0-31.0) pg MCHC (33.0-37.0) g/dL RDW (11.5-14.5) % Plt Count (130-400) K/uL MPV (7.2-11.7) fL Neut % (Auto) (50.0-75.0) % Lymph % (Auto) (20.0-40.0) % [place] % (Auto) (0.0-10.0) % Eos % (Auto) (0.0-4.0) % Baso % (Auto) (0.0-2.0) % Neut # (1.8-7.0) K/uL Lymph # (1.0-4.3) K/uL Navarro # (0.0-0.8) K/uL Eos # (0.0-0.7) K/uL Baso # (0.0-0.2) K/uL Neutrophils % (Manual) (50-75) % Band Neutrophils % (0-2) % Lymphocytes % (Manual) (20-40) % Monocytes % (Manual) (0-10) % Metamyelocytes % (0-0) % Myelocytes % (0-0) % Platelet Estimate (NORMAL) Large Platelets Hypochromasia (manual) Poikilocytosis (manual Basophilic Stippling Anisocytosis (manual) ESR (0-20) mm/hr Puncture Site Rra pCO2 38 (35-45) mm/Hg pO2 335 H (80-100) mm/Hg HCO3 24.7 (21-28) mmol/L ABG pH 7.41 (7.35-7.45) ABG Total CO2 25.3 (22-28) mmol/L ABG O2 Saturation 99.5 H (95-98) % ABG Base Excess -0.3 (-2.0-3.0) mmol/L ABG Hemoglobin 15.9 (11.7-17.4) g/dL ABG Carboxyhemoglobin 0.8 (0.5-1.5) % POC ABG HHb (Measured) 0.5 (0.0-5.0) % ABG Methemoglobin 1.3 (0.0-3.0) % Ming Test Na A-a O2 Difference 331.0 mm/Hg Respiratory Index 1.0 Hgb O2 Saturation 97.4 (95.0-98.0) % Vent Mode Prvc Mechanical Rate 14 FiO2 100.0 % Tidal Volume 500 PEEP 5 Sodium (132-148) mmol/L Potassium (3.6-5.2) mmol/L Chloride (98-107) mmol/L Carbon Dioxide (22-30) mmol/L Anion Gap (10-20) BUN (7-17) mg/dL Creatinine (0.7-1.2) MG/DL Est GFR ( Amer) Est GFR (Non-Af Amer) POC Glucose (mg/dL) 164 H 131 H (65-110) mg/dL Random Glucose (65-105) mg/dL Calcium (8.6-10.4) mg/dl Phosphorus (2.5-4.5) mg/dL Magnesium (1.6-2.3) mg/dL Total Bilirubin (0.2-1.3) mg/dL AST (14-36) U/L ALT (9-52) U/L Alkaline Phosphatase (38-126) U/L Total Protein (6.3-8.3) g/dL Albumin (3.5-5.0) g/dL Globulin (2.2-3.9) gm/dL Albumin/Globulin Ratio (1.0-2.1) Vancomycin Trough (5.0-10.0) ug/mL Rheum Arthritis Panel (NEGATIVE) HIV-1 RNA copies/mL (<20) copies/mL HIV-1 RNA logcopies/mL (<1.30) HIV-1 Genotyping (()) 05/06/17 05/06/17 05/06/17 Range/Units 10:27 10:27 06:27 WBC 21.0 H (4.8-10.8) K/uL RBC 3.28 L (3.80-5.20) Mil/uL Hgb 8.5 L (11.0-16.0) g/dL Hct 26.9 L (34.0-47.0) % MCV 81.9 (81.0-99.0) fL MCH 25.8 L (27.0-31.0) pg MCHC 31.5 L (33.0-37.0) g/dL RDW 18.6 H (11.5-14.5) % Plt Count 507 H D (130-400) K/uL MPV 8.0 (7.2-11.7) fL Neut % (Auto) 85.5 H (50.0-75.0) % Lymph % (Auto) 7.5 L (20.0-40.0) % [place] % (Auto) 6.8 (0.0-10.0) % Eos % (Auto) 0.1 (0.0-4.0) % Baso % (Auto) 0.1 (0.0-2.0) % Neut # 18.0 H (1.8-7.0) K/uL Lymph # 1.6 (1.0-4.3) K/uL [place]arro # 1.4 H (0.0-0.8) K/uL Eos # 0.0 (0.0-0.7) K/uL Baso # 0.0 (0.0-0.2) K/uL Neutrophils % (Manual) 83 H (50-75) % Band Neutrophils % 1 (0-2) % Lymphocytes % (Manual) 6 L (20-40) % Monocytes % (Manual) 8 (0-10) % Metamyelocytes % 1 H (0-0) % Myelocytes % 1 H (0-0) % Platelet Estimate Increased H (NORMAL) Large Platelets Present Hypochromasia (manual) Slight Poikilocytosis (manual Slight Basophilic Stippling Slight Anisocytosis (manual) Slight ESR 85 H (0-20) mm/hr Puncture Site pCO2 (35-45) mm/Hg pO2 (80-100) mm/Hg HCO3 (21-28) mmol/L ABG pH (7.35-7.45) ABG Total CO2 (22-28) mmol/L ABG O2 Saturation (95-98) % ABG Base Excess (-2.0-3.0) mmol/L ABG Hemoglobin (11.7-17.4) g/dL ABG Carboxyhemoglobin (0.5-1.5) % POC ABG HHb (Measured) (0.0-5.0) % ABG Methemoglobin (0.0-3.0) % Ming Test A-a O2 Difference mm/Hg Respiratory Index Hgb O2 Saturation (95.0-98.0) % Vent Mode Mechanical Rate FiO2 % Tidal Volume PEEP Sodium (132-148) mmol/L Potassium (3.6-5.2) mmol/L Chloride (98-107) mmol/L Carbon Dioxide (22-30) mmol/L Anion Gap (10-20) BUN (7-17) mg/dL Creatinine (0.7-1.2) MG/DL Est GFR ( Amer) Est GFR (Non-Af Amer) POC Glucose (mg/dL) (65-110) mg/dL Random Glucose (65-105) mg/dL Calcium (8.6-10.4) mg/dl Phosphorus (2.5-4.5) mg/dL Magnesium (1.6-2.3) mg/dL Total Bilirubin (0.2-1.3) mg/dL AST (14-36) U/L ALT (9-52) U/L Alkaline Phosphatase (38-126) U/L Total Protein (6.3-8.3) g/dL Albumin (3.5-5.0) g/dL Globulin (2.2-3.9) gm/dL Albumin/Globulin Ratio (1.0-2.1) Vancomycin Trough (5.0-10.0) ug/mL Rheum Arthritis Panel Negative (NEGATIVE) HIV-1 RNA copies/mL (<20) copies/mL HIV-1 RNA logcopies/mL (<1.30) HIV-1 Genotyping (()) 05/06/17 05/06/17 05/06/17 Range/Units 06:20 06:20 05:13 WBC (4.8-10.8) K/uL RBC (3.80-5.20) Mil/uL Hgb (11.0-16.0) g/dL Hct (34.0-47.0) % MCV (81.0-99.0) fL MCH (27.0-31.0) pg MCHC (33.0-37.0) g/dL RDW (11.5-14.5) % Plt Count (130-400) K/uL MPV (7.2-11.7) fL Neut % (Auto) (50.0-75.0) % Lymph % (Auto) (20.0-40.0) % Navarro % (Auto) (0.0-10.0) % Eos % (Auto) (0.0-4.0) % Baso % (Auto) (0.0-2.0) % Neut # (1.8-7.0) K/uL Lymph # (1.0-4.3) K/uL Navarro # (0.0-0.8) K/uL Eos # (0.0-0.7) K/uL Baso # (0.0-0.2) K/uL Neutrophils % (Manual) (50-75) % Band Neutrophils % (0-2) % Lymphocytes % (Manual) (20-40) % Monocytes % (Manual) (0-10) % Metamyelocytes % (0-0) % Myelocytes % (0-0) % Platelet Estimate (NORMAL) Large Platelets Hypochromasia (manual) Poikilocytosis (manual Basophilic Stippling Anisocytosis (manual) ESR (0-20) mm/hr Puncture Site pCO2 (35-45) mm/Hg pO2 (80-100) mm/Hg HCO3 (21-28) mmol/L ABG pH (7.35-7.45) ABG Total CO2 (22-28) mmol/L ABG O2 Saturation (95-98) % ABG Base Excess (-2.0-3.0) mmol/L ABG Hemoglobin (11.7-17.4) g/dL ABG Carboxyhemoglobin (0.5-1.5) % POC ABG HHb (Measured) (0.0-5.0) % ABG Methemoglobin (0.0-3.0) % Ming Test A-a O2 Difference mm/Hg Respiratory Index Hgb O2 Saturation (95.0-98.0) % Vent Mode Mechanical Rate FiO2 % Tidal Volume PEEP Sodium 143 (132-148) mmol/L Potassium 4.2 (3.6-5.2) mmol/L Chloride 108 H (98-107) mmol/L Carbon Dioxide 21 L (22-30) mmol/L Anion Gap 18 (10-20) BUN 18 H (7-17) mg/dL Creatinine 0.6 L (0.7-1.2) MG/DL Est GFR ( Amer) > 60 Est GFR (Non-Af Amer) > 60 POC Glucose (mg/dL) 121 H (65-110) mg/dL Random Glucose 110 H (65-105) mg/dL Calcium 8.8 (8.6-10.4) mg/dl Phosphorus 2.4 L (2.5-4.5) mg/dL Magnesium 1.8 (1.6-2.3) mg/dL Total Bilirubin 0.8 (0.2-1.3) mg/dL AST 20 (14-36) U/L ALT 22 (9-52) U/L Alkaline Phosphatase 85 (38-126) U/L Total Protein 6.1 L (6.3-8.3) g/dL Albumin 2.8 L (3.5-5.0) g/dL Globulin 3.4 (2.2-3.9) gm/dL Albumin/Globulin Ratio 0.8 L (1.0-2.1) Vancomycin Trough 16.9 H (5.0-10.0) ug/mL Rheum Arthritis Panel (NEGATIVE) HIV-1 RNA copies/mL (<20) copies/mL HIV-1 RNA logcopies/mL (<1.30) HIV-1 Genotyping (()) 05/06/17 05/05/17 05/04/17 Range/Units 00:51 20:22 08:29 WBC 18.4 H (4.8-10.8) K/uL RBC 3.18 L (3.80-5.20) Mil/uL Hgb 8.1 L (11.0-16.0) g/dL Hct 26.0 L (34.0-47.0) % MCV 81.7 (81.0-99.0) fL MCH 25.4 L (27.0-31.0) pg MCHC 31.1 L (33.0-37.0) g/dL RDW 18.8 H (11.5-14.5) % Plt Count 407 H (130-400) K/uL MPV 7.8 (7.2-11.7) fL Neut % (Auto) 91.3 H (50.0-75.0) % Lymph % (Auto) 5.7 L (20.0-40.0) % Navarro % (Auto) 2.8 (0.0-10.0) % Eos % (Auto) 0.1 (0.0-4.0) % Baso % (Auto) 0.1 (0.0-2.0) % Neut # 16.8 H (1.8-7.0) K/uL Lymph # 1.0 (1.0-4.3) K/uL Navarro # 0.5 (0.0-0.8) K/uL Eos # 0.0 (0.0-0.7) K/uL Baso # 0.0 (0.0-0.2) K/uL Neutrophils % (Manual) 92 H (50-75) % Band Neutrophils % (0-2) % Lymphocytes % (Manual) 5 L (20-40) % Monocytes % (Manual) 3 (0-10) % Metamyelocytes % (0-0) % Myelocytes % (0-0) % Platelet Estimate Normal (NORMAL) Large Platelets Hypochromasia (manual) Slight Poikilocytosis (manual Slight Basophilic Stippling Anisocytosis (manual) Slight ESR (0-20) mm/hr Puncture Site pCO2 (35-45) mm/Hg pO2 (80-100) mm/Hg HCO3 (21-28) mmol/L ABG pH (7.35-7.45) ABG Total CO2 (22-28) mmol/L ABG O2 Saturation (95-98) % ABG Base Excess (-2.0-3.0) mmol/L ABG Hemoglobin (11.7-17.4) g/dL ABG Carboxyhemoglobin (0.5-1.5) % POC ABG HHb (Measured) (0.0-5.0) % ABG Methemoglobin (0.0-3.0) % Ming Test A-a O2 Difference mm/Hg Respiratory Index Hgb O2 Saturation (95.0-98.0) % Vent Mode Mechanical Rate FiO2 % Tidal Volume PEEP Sodium (132-148) mmol/L Potassium (3.6-5.2) mmol/L Chloride (98-107) mmol/L Carbon Dioxide (22-30) mmol/L Anion Gap (10-20) BUN (7-17) mg/dL Creatinine (0.7-1.2) MG/DL Est GFR ( Amer) Est GFR (Non-Af Amer) POC Glucose (mg/dL) 122 H (65-110) mg/dL Random Glucose (65-105) mg/dL Calcium (8.6-10.4) mg/dl Phosphorus (2.5-4.5) mg/dL Magnesium (1.6-2.3) mg/dL Total Bilirubin (0.2-1.3) mg/dL AST (14-36) U/L ALT (9-52) U/L Alkaline Phosphatase (38-126) U/L Total Protein (6.3-8.3) g/dL Albumin (3.5-5.0) g/dL Globulin (2.2-3.9) gm/dL Albumin/Globulin Ratio (1.0-2.1) Vancomycin Trough (5.0-10.0) ug/mL Rheum Arthritis Panel (NEGATIVE) HIV-1 RNA copies/mL <20 not detected (<20) copies/mL HIV-1 RNA logcopies/mL <1.30 not detected (<1.30) HIV-1 Genotyping (()) Laboratory Results - last 24 hr 05/04/17 05/05/17 05/06/17 08:29 20:22 00:51 WBC 18.4 H RBC 3.18 L Hgb 8.1 L Hct 26.0 L MCV 81.7 MCH 25.4 L MCHC 31.1 L RDW 18.8 H Plt Count 407 H MPV 7.8 Neut % (Auto) 91.3 H Lymph % (Auto) 5.7 L Navarro % (Auto) 2.8 Eos % (Auto) 0.1 Baso % (Auto) 0.1 Neut # 16.8 H Lymph # 1.0 Navarro # 0.5 Eos # 0.0 Baso # 0.0 Neutrophils % (Manual) 92 H Band Neutrophils % Lymphocytes % (Manual) 5 L Monocytes % (Manual) 3 Metamyelocytes % Myelocytes % Platelet Estimate Normal Large Platelets Hypochromasia (manual) Slight Poikilocytosis (manual Slight Basophilic Stippling Anisocytosis (manual) Slight ESR Puncture Site pCO2 pO2 HCO3 ABG pH ABG Total CO2 ABG O2 Saturation ABG Base Excess ABG Hemoglobin ABG Carboxyhemoglobin POC ABG HHb (Measured) ABG Methemoglobin Ming Test A-a O2 Difference Respiratory Index Hgb O2 Saturation Vent Mode Mechanical Rate FiO2 Tidal Volume PEEP Sodium Potassium Chloride Carbon Dioxide Anion Gap BUN Creatinine Est GFR ( Amer) Est GFR (Non-Af Amer) POC Glucose (mg/dL) 122 H Random Glucose Calcium Phosphorus Magnesium Total Bilirubin AST ALT Alkaline Phosphatase Total Protein Albumin Globulin Albumin/Globulin Ratio Vancomycin Trough Rheum Arthritis Panel HIV-1 RNA copies/mL <20 not detected HIV-1 RNA logcopies/mL <1.30 not detected HIV-1 Genotyping 05/06/17 05/06/17 05/06/17 05:13 06:20 06:20 WBC RBC Hgb Hct MCV MCH MCHC RDW Plt Count MPV Neut % (Auto) Lymph % (Auto) Navarro % (Auto) Eos % (Auto) Baso % (Auto) Neut # Lymph # Navarro # Eos # Baso # Neutrophils % (Manual) Band Neutrophils % Lymphocytes % (Manual) Monocytes % (Manual) Metamyelocytes % Myelocytes % Platelet Estimate Large Platelets Hypochromasia (manual) Poikilocytosis (manual Basophilic Stippling Anisocytosis (manual) ESR Puncture Site pCO2 pO2 HCO3 ABG pH ABG Total CO2 ABG O2 Saturation ABG Base Excess ABG Hemoglobin ABG Carboxyhemoglobin POC ABG HHb (Measured) ABG Methemoglobin Ming Test A-a O2 Difference Respiratory Index Hgb O2 Saturation Vent Mode Mechanical Rate FiO2 Tidal Volume PEEP Sodium 143 Potassium 4.2 Chloride 108 H Carbon Dioxide 21 L Anion Gap 18 BUN 18 H Creatinine 0.6 L Est GFR ( Amer) > 60 Est GFR (Non-Af Amer) > 60 POC Glucose (mg/dL) 121 H Random Glucose 110 H Calcium 8.8 Phosphorus 2.4 L Magnesium 1.8 Total Bilirubin 0.8 AST 20 ALT 22 Alkaline Phosphatase 85 Total Protein 6.1 L Albumin 2.8 L Globulin 3.4 Albumin/Globulin Ratio 0.8 L Vancomycin Trough 16.9 H Rheum Arthritis Panel HIV-1 RNA copies/mL HIV-1 RNA logcopies/mL HIV-1 Genotyping 05/06/17 05/06/17 05/06/17 06:27 10:27 10:27 WBC 21.0 H RBC 3.28 L Hgb 8.5 L Hct 26.9 L MCV 81.9 MCH 25.8 L MCHC 31.5 L RDW 18.6 H Plt Count 507 H D MPV 8.0 Neut % (Auto) 85.5 H Lymph % (Auto) 7.5 L Navarro % (Auto) 6.8 Eos % (Auto) 0.1 Baso % (Auto) 0.1 Neut # 18.0 H Lymph # 1.6 Navarro # 1.4 H Eos # 0.0 Baso # 0.0 Neutrophils % (Manual) 83 H Band Neutrophils % 1 Lymphocytes % (Manual) 6 L Monocytes % (Manual) 8 Metamyelocytes % 1 H Myelocytes % 1 H Platelet Estimate Increased H Large Platelets Present Hypochromasia (manual) Slight Poikilocytosis (manual Slight Basophilic Stippling Slight Anisocytosis (manual) Slight ESR 85 H Puncture Site pCO2 pO2 HCO3 ABG pH ABG Total CO2 ABG O2 Saturation ABG Base Excess ABG Hemoglobin ABG Carboxyhemoglobin POC ABG HHb (Measured) ABG Methemoglobin Ming Test A-a O2 Difference Respiratory Index Hgb O2 Saturation Vent Mode Mechanical Rate FiO2 Tidal Volume PEEP Sodium Potassium Chloride Carbon Dioxide Anion Gap BUN Creatinine Est GFR ( Amer) Est GFR (Non-Af Amer) POC Glucose (mg/dL) Random Glucose Calcium Phosphorus Magnesium Total Bilirubin AST ALT Alkaline Phosphatase Total Protein Albumin Globulin Albumin/Globulin Ratio Vancomycin Trough Rheum Arthritis Panel Negative HIV-1 RNA copies/mL HIV-1 RNA logcopies/mL HIV-1 Genotyping 05/06/17 05/06/17 05/06/17 11:20 17:38 18:45 WBC RBC Hgb Hct MCV MCH MCHC RDW Plt Count MPV Neut % (Auto) Lymph % (Auto) Navarro % (Auto) Eos % (Auto) Baso % (Auto) Neut # Lymph # [place] # Eos # Baso # Neutrophils % (Manual) Band Neutrophils % Lymphocytes % (Manual) Monocytes % (Manual) Metamyelocytes % Myelocytes % Platelet Estimate Large Platelets Hypochromasia (manual) Poikilocytosis (manual Basophilic Stippling Anisocytosis (manual) ESR Puncture Site Rra pCO2 38 pO2 335 H HCO3 24.7 ABG pH 7.41 ABG Total CO2 25.3 ABG O2 Saturation 99.5 H ABG Base Excess -0.3 ABG Hemoglobin 15.9 ABG Carboxyhemoglobin 0.8 POC ABG HHb (Measured) 0.5 ABG Methemoglobin 1.3 Ming Test Na A-a O2 Difference 331.0 Respiratory Index 1.0 Hgb O2 Saturation 97.4 Vent Mode Prvc Mechanical Rate 14 FiO2 100.0 Tidal Volume 500 PEEP 5 Sodium Potassium Chloride Carbon Dioxide Anion Gap BUN Creatinine Est GFR ( Amer) Est GFR (Non-Af Amer) POC Glucose (mg/dL) 131 H 164 H Random Glucose Calcium Phosphorus Magnesium Total Bilirubin AST ALT Alkaline Phosphatase Total Protein Albumin Globulin Albumin/Globulin Ratio Vancomycin Trough Rheum Arthritis Panel HIV-1 RNA copies/mL HIV-1 RNA logcopies/mL HIV-1 Genotyping Critical Care Progress Note - Nutrition Nutrition: Nutrition Category Date Time Status Heart Healthy Diet [DIET] Diets 05/04/17 Lunch Active Attending/Attestation - Attestation I have personally seen and examined this patient.: Yes I have fully participated in the care of the patient.: Yes I have reviewed all pertinent clinical information: Yes Notes (Text): 05/06/17 18:52 Today: , May 06, 2017 The Patient was seen and examined at the bedside, Medical records reviewed, and management issues were discussed and formulated. All clinical/lab/hemodynamic/radiographic data were reviewed Events reviewed Pain issues, skin care, head of the bed elevation, glycemic control were addressed. Agree with above treatment plans as transcribed in Dr. Myers note
[2017-05-06] MEDS ORDERED: Propofol 10 mg/ml Inj (20 ML) ONE (15:57)
[2017-05-06] MEDS ORDERED: Etomidate 20 mg/10ml Inj IV ONE (15:58)
[2017-05-06] MEDS ORDERED: Propofol 10 mg/ml Inj (20 ML) IV ONE (15:58)
[2017-05-06] MEDS ORDERED: Propofol 10 mg/ml Inj (100 ml) IV SCH ×2 (16:00→16:13)
[2017-05-06] MEDS ORDERED: Propofol 10 mg/ml 1,000 MG/100 ML VIAL IV PRN (16:17)
--- NOTE | 2017-05-06 16:33 | RAD ---
HISTORY: intubation COMPARISON: Chest x-ray performed 05/02/17 TECHNIQUE: Chest, one view. FINDINGS: Endotracheal tube terminates approximately 3.2 cm above the beth. Nasogastric tube extends to the expected location of the stomach. Right IJ approach central venous catheter extends to the SVC. Markedly limited by habitus and patient obliquity. LUNGS: Interstitial prominence may reflect infection or edema. Patchy left lower lobe airspace opacity and/or small pleural effusion. Right hilar prominence. No definite pneumothorax. CARDIOVASCULAR: Cardiomegaly. Atherosclerotic calcifications of the aorta. OSSEOUS STRUCTURES: Degenerative changes. VISUALIZED UPPER ABDOMEN: Unremarkable. OTHER FINDINGS: None. IMPRESSION: Endotracheal tube terminates approximately 3.2 cm above the beth. Nasogastric tube extends to the expected location of the stomach. Right IJ approach central venous catheter extends to the SVC. Interstitial prominence may reflect infection or edema. Patchy left lower lobe airspace opacity and/or small pleural effusion. Right hilar prominence.
[2017-05-06] MEDS: Propofol 10 mg/ml 1,000 MG/100 ML VIAL IV PRN ×2 (16:35→21:12)
--- NOTE | 2017-05-06 16:38 | CP.PCM.PN ---
Subjective - Date & Time of Evaluation Date of Evaluation: 05/06/17 Time of Evaluation: 10:20 - Subjective Subjective: clinically same Objective - Vital Signs/Intake and Output Vital Signs (last 24 hours): Temp Pulse Resp BP Pulse Ox 98.9 F 104 H 34 H 160/98 H 93 L 05/06/17 12:00 05/06/17 13:55 05/06/17 13:00 05/06/17 13:00 05/06/17 13:00 Intake and Output: 05/06/17 05/06/17 06:59 18:59 Intake Total 2320 1048 Output Total 865 Balance 1455 1048 - Medications Medications: Current Medications Albuterol/Ipratropium (Duoneb 3 Mg/0.5 Mg (3 Ml) Ud) 3 ml INH RQ6 [facility] Last Admin: 05/06/17 13:54 Dose: 3 ml Apixaban (Eliquis) 5 mg PO BID [facility] Last Admin: 05/06/17 09:00 Dose: 5 mg Famotidine (Pepcid) 20 mg IVP DAILY [facility] Last Admin: 05/06/17 09:00 Dose: 20 mg Furosemide (Lasix) 40 mg PO DAILY [facility] Stop: 05/10/17 23:59 Last Admin: 05/06/17 09:00 Dose: 40 mg Sodium Chloride (Sodium Chloride 0.9%) 1,000 mls @ 150 mls/hr IV .Q6H40M [facility] Last Admin: 05/06/17 06:43 Dose: 150 mls/hr Vancomycin HCl 1 gm/ Sodium (Chloride) 250 mls @ 166.7 mls/hr IVPB Q24H [facility] Last Admin: 05/06/17 08:56 Dose: 166.7 mls/hr Diltiazem HCl 125 mg/ Sodium (Chloride) 125 mls @ 5 mls/hr IV .Q24H [facility]IK; 5 MG/ HR PRN Reason: Protocol Last Titration: 05/06/17 16:36 Dose: 5 mg/hr, 5 mls/hr Piperacillin Sod/Tazobactam Sod (Zosyn 3.375 Gm Iv Premix) 3.375 gm in 50 mls @ 100 mls/hr IVPB Q6H [facility] Last Admin: 05/06/17 13:00 Dose: 100 mls/hr Immune Globulin (Octagam 5%) 1,000 mls @ 0 mls/hr IV DAILY [facility]IK PRN Reason: UD Last Admin: 05/06/17 11:37 Dose: 50 mls/hr Propofol (Diprivan) 1,000 mg in 100 mls @ 3.9 mls/hr IV .Q24H PRN; Protocol; 5 MCG/KG/MIN PRN Reason: TITRATE PER MD ORDER Last Admin: 05/06/17 16:35 Dose: 12.82 mcg/kg/min, 10 mls/hr Lorazepam (Ativan) 1 mg IVP ONCE PRN Methylprednisolone (Solu-Medrol) 20 mg IVP BID [facility] Last Admin: 05/06/17 08:59 Dose: 20 mg Morphine Sulfate (Morphine) 2 mg SC Q4 PRN PRN Reason: Pain, moderate (4-7) Last Admin: 05/06/17 05:20 Dose: 2 mg Ondansetron HCl (Zofran Inj) 4 mg IVP Q4 PRN PRN Reason: Nausea/Vomiting - Labs Labs: 05/06/17 06:27 05/06/17 06:20 PT 12.4 SECONDS (9.7-12.2) H 05/05/17 06:40 INR 1.1 05/05/17 06:40 APTT 27 SECONDS (21-34) 05/04/17 06:35 - Constitutional Appears: Well - Head Exam Head Exam: ATRAUMATIC, NORMAL INSPECTION, NORMOCEPHALIC - Eye Exam Eye Exam: EOMI, Normal appearance, PERRL Pupil Exam: NORMAL ACCOMODATION, PERRL - ENT Exam ENT Exam: Mucous Membranes Moist, Normal Exam - Neck Exam Neck Exam: Full ROM, Normal Inspection. absent: Lymphadenopathy - Respiratory Exam Respiratory Exam: Decreased Breath Sounds - Cardiovascular Exam Cardiovascular Exam: REGULAR RHYTHM, +S1, +S2 - GI/Abdominal Exam GI & Abdominal Exam: Soft, Diminished Bowel Sounds - Rectal Exam Rectal Exam: Deferred
--- NOTE | 2017-05-06 16:41 | CP.PCM.PN ---
<Yogi Bonner - Last Filed: 05/06/17 16:39> Subjective - Date & Time of Evaluation Date of Evaluation: 05/06/17 Time of Evaluation: 09:00 - Subjective Subjective: General Surgery- Dr. Almaraz Pt S&E at bedside this AM. slightly altered mentation. No acute complaints. Wound vac on in place with no leaks. Denies F/C CP/SOB N/V/D. Objective - Vital Signs/Intake and Output Vital Signs (last 24 hours): Temp Pulse Resp BP Pulse Ox 98.9 F 104 H 34 H 160/98 H 93 L 05/06/17 12:00 05/06/17 13:55 05/06/17 13:00 05/06/17 13:00 05/06/17 13:00 Intake and Output: 05/06/17 05/06/17 06:59 18:59 Intake Total 2320 1048 Output Total 865 Balance 1455 1048 - Medications Medications: Current Medications Albuterol/Ipratropium (Duoneb 3 Mg/0.5 Mg (3 Ml) Ud) 3 ml INH RQ6 [facility] Last Admin: 05/06/17 13:54 Dose: 3 ml Apixaban (Eliquis) 5 mg PO BID [facility] Last Admin: 05/06/17 09:00 Dose: 5 mg Famotidine (Pepcid) 20 mg IVP DAILY [facility] Last Admin: 05/06/17 09:00 Dose: 20 mg Furosemide (Lasix) 40 mg PO DAILY [facility] Stop: 05/10/17 23:59 Last Admin: 05/06/17 09:00 Dose: 40 mg Sodium Chloride (Sodium Chloride 0.9%) 1,000 mls @ 150 mls/hr IV .Q6H40M [facility] Last Admin: 05/06/17 06:43 Dose: 150 mls/hr Vancomycin HCl 1 gm/ Sodium (Chloride) 250 mls @ 166.7 mls/hr IVPB Q24H [facility] Last Admin: 05/06/17 08:56 Dose: 166.7 mls/hr Diltiazem HCl 125 mg/ Sodium (Chloride) 125 mls @ 5 mls/hr IV .Q24H [facility]; 5 MG/ HR PRN Reason: Protocol Last Titration: 05/06/17 16:36 Dose: 5 mg/hr, 5 mls/hr Piperacillin Sod/Tazobactam Sod (Zosyn 3.375 Gm Iv Premix) 3.375 gm in 50 mls @ 100 mls/hr IVPB Q6H [facility] Last Admin: 05/06/17 13:00 Dose: 100 mls/hr Immune Globulin (Octagam 5%) 1,000 mls @ 0 mls/hr IV DAILY RIK PRN Reason: UD Last Admin: 05/06/17 11:37 Dose: 50 mls/hr Propofol (Diprivan) 1,000 mg in 100 mls @ 3.9 mls/hr IV .Q24H PRN; Protocol; 5 MCG/KG/MIN PRN Reason: TITRATE PER MD ORDER Last Admin: 05/06/17 16:35 Dose: 12.82 mcg/kg/min, 10 mls/hr Lorazepam (Ativan) 1 mg IVP ONCE PRN Methylprednisolone (Solu-Medrol) 20 mg IVP BID [facility] Last Admin: 05/06/17 08:59 Dose: 20 mg Morphine Sulfate (Morphine) 2 mg SC Q4 PRN PRN Reason: Pain, moderate (4-7) Last Admin: 05/06/17 05:20 Dose: 2 mg Ondansetron HCl (Zofran Inj) 4 mg IVP Q4 PRN PRN Reason: Nausea/Vomiting - Labs Labs: 05/06/17 06:27 05/06/17 06:20 PT 12.4 SECONDS (9.7-12.2) H 05/05/17 06:40 INR 1.1 05/05/17 06:40 APTT 27 SECONDS (21-34) 05/04/17 06:35 - Constitutional Appears: Non-toxic, No Acute Distress - ENT Exam ENT Exam: Mucous Membranes Moist - Respiratory Exam Respiratory Exam: NORMAL BREATHING PATTERN. absent: Accessory Muscle Use - Cardiovascular Exam Cardiovascular Exam: +S1, +S2 - GI/Abdominal Exam GI & Abdominal Exam: Soft. absent: Distended, Tenderness - Back Exam Additional comments: wound vac in place. dressing C/D/I - Neurological Exam Neurological Exam: Awake - Skin Skin Exam: Warm <Juan Almaraz - Last Filed: 05/08/17 17:53> Objective - Vital Signs/Intake and Output Vital Signs (last 24 hours): Temp Pulse Resp BP Pulse Ox 98.6 F 76 13 143/83 99 05/08/17 16:00 05/08/17 16:15 05/08/17 16:15 05/08/17 16:15 05/08/17 16:15 Intake and Output: 05/08/17 05/08/17 06:59 18:59 Intake Total 2122.0 1787.6 Output Total 1110 1835 Balance 1012.0 -47.4 - Medications Medications: Current Medications Albuterol/Ipratropium (Duoneb 3 Mg/0.5 Mg (3 Ml) Ud) 3 ml INH RQ6 [facility] Last Admin: 05/08/17 13:37 Dose: Not Given Apixaban (Eliquis) 5 mg PO BID [facility] Last Admin: 05/08/17 17:50 Dose: 5 mg Famotidine (Pepcid) 20 mg PO DAILY [facility] Last Admin: 05/08/17 10:11 Dose: 20 mg Furosemide (Lasix) 40 mg PO DAILY [facility] Stop: 05/10/17 23:59 Last Admin: 05/08/17 10:10 Dose: 40 mg Vancomycin HCl 1 gm/ Sodium (Chloride) 250 mls @ 166.7 mls/hr IVPB Q24H [facility] Last Admin: 05/08/17 10:13 Dose: 166.7 mls/hr Diltiazem HCl 125 mg/ Sodium (Chloride) 125 mls @ 5 mls/hr IV .Q24H [facility]; 5 MG/ HR PRN Reason: Protocol Last Admin: 05/07/17 05:58 Dose: Not Given Piperacillin Sod/Tazobactam Sod (Zosyn 3.375 Gm Iv Premix) 3.375 gm in 50 mls @ 100 mls/hr IVPB Q6H [facility] Last Admin: 05/08/17 13:02 Dose: 100 mls/hr Propofol (Diprivan) 1,000 mg in 100 mls @ 3.9 mls/hr IV .Q24H PRN; Protocol; 5 MCG/KG/MIN PRN Reason: TITRATE PER MD ORDER Last Titration: 05/08/17 15:00 Dose: 20 mcg/kg/min, 15.6 mls/hr Sodium Chloride (Sodium Chloride 0.9%) 1,000 mls @ 75 mls/hr IV .[id number] [facility] Last Admin: 05/08/17 10:16 Dose: 75 mls/hr Lorazepam (Ativan) 1 mg IVP ONCE PRN Methylprednisolone (Solu-Medrol) 20 mg IVP BID [facility] Last Admin: 05/08/17 17:49 Dose: 20 mg Morphine Sulfate (Morphine) 2 mg SC Q4 PRN PRN Reason: Pain, moderate (4-7) Last Admin: 05/06/17 05:20 Dose: 2 mg Ondansetron HCl (Zofran Inj) 4 mg IVP Q4 PRN PRN Reason: Nausea/Vomiting - Labs Labs: 05/08/17 06:47 05/08/17 06:47 PT 12.4 SECONDS (9.7-12.2) H 05/05/17 06:40 INR 1.1 05/05/17 06:40 APTT 27 SECONDS (21-34) 05/04/17 06:35 Attending/Attestation - Attestation I have personally seen and examined this patient.: Yes I have fully participated in the care of the patient.: Yes I have reviewed all pertinent clinical information, including history, physical exam and plan: Yes Notes (Text): 05/08/17 17:52 Pt was seen and examined at bedside Agree with above note and assessment
--- NOTE | 2017-05-06 16:51 | CP.PCM.PN ---
Subjective - Date & Time of Evaluation Date of Evaluation: 05/06/17 Time of Evaluation: 17:00 - Subjective Subjective: Patient seen and examined. 60-year-old female with history of anxiety, depression, chronic back pain, possible obstructive sleep apnea, COPD, was brought in by the family members because of altered mental status. Patient is hypotensive and septic. Patient has sacral wound, likely cause of sepsis. Patient went to the OR today for I/D of sacral wound. Wound vac in place. Wound culture came back positive for proteus mirabilis, group c strep-- continue Primaxin and vanco. Patient has new onset of a-fib, started cardizem drip on Today patient phoned in respiratory distress with increasing lethargy and placed on BiPAP initially. Patient intubated with size 8 ET tube for increasing lethargy and respiratory distress and placed on ventilatory support Objective - Vital Signs/Intake and Output Vital Signs (last 24 hours): Temp Pulse Resp BP Pulse Ox 98 F 102 H 2 L 146/88 100 05/06/17 16:00 05/06/17 16:00 05/06/17 16:00 05/06/17 16:00 05/06/17 16:00 Intake and Output: 05/06/17 05/06/17 06:59 18:59 Intake Total 2320 1788 Output Total 865 Balance 1455 1788 - Medications Medications: Current Medications Albuterol/Ipratropium (Duoneb 3 Mg/0.5 Mg (3 Ml) Ud) 3 ml INH RQ6 [facility] Last Admin: 05/06/17 13:54 Dose: 3 ml Apixaban (Eliquis) 5 mg PO BID [facility] Last Admin: 05/06/17 09:00 Dose: 5 mg Famotidine (Pepcid) 20 mg IVP DAILY [facility] Last Admin: 05/06/17 09:00 Dose: 20 mg Furosemide (Lasix) 40 mg PO DAILY [facility] Stop: 05/10/17 23:59 Last Admin: 05/06/17 09:00 Dose: 40 mg Sodium Chloride (Sodium Chloride 0.9%) 1,000 mls @ 150 mls/hr IV .Q6H40M [facility] Last Admin: 05/06/17 06:43 Dose: 150 mls/hr Vancomycin HCl 1 gm/ Sodium (Chloride) 250 mls @ 166.7 mls/hr IVPB Q24H [facility] Last Admin: 05/06/17 08:56 Dose: 166.7 mls/hr Diltiazem HCl 125 mg/ Sodium (Chloride) 125 mls @ 5 mls/hr IV .Q24H RIK; 5 MG/ HR PRN Reason: Protocol Last Titration: 05/06/17 16:36 Dose: 5 mg/hr, 5 mls/hr Piperacillin Sod/Tazobactam Sod (Zosyn 3.375 Gm Iv Premix) 3.375 gm in 50 mls @ 100 mls/hr IVPB Q6H [facility] Last Admin: 05/06/17 13:00 Dose: 100 mls/hr Immune Globulin (Octagam 5%) 1,000 mls @ 0 mls/hr IV DAILY RIK PRN Reason: UD Last Admin: 05/06/17 11:37 Dose: 50 mls/hr Propofol (Diprivan) 1,000 mg in 100 mls @ 3.9 mls/hr IV .Q24H PRN; Protocol; 5 MCG/KG/MIN PRN Reason: TITRATE PER MD ORDER Last Admin: 05/06/17 16:35 Dose: 12.82 mcg/kg/min, 10 mls/hr Lorazepam (Ativan) 1 mg IVP ONCE PRN Methylprednisolone (Solu-Medrol) 20 mg IVP BID [facility] Last Admin: 05/06/17 08:59 Dose: 20 mg Morphine Sulfate (Morphine) 2 mg SC Q4 PRN PRN Reason: Pain, moderate (4-7) Last Admin: 05/06/17 05:20 Dose: 2 mg Ondansetron HCl (Zofran Inj) 4 mg IVP Q4 PRN PRN Reason: Nausea/Vomiting - Labs Labs: 05/06/17 06:27 05/06/17 06:20 PT 12.4 SECONDS (9.7-12.2) H 05/05/17 06:40 INR 1.1 05/05/17 06:40 APTT 27 SECONDS (21-34) 05/04/17 06:35 - Head Exam Head Exam: ATRAUMATIC, NORMOCEPHALIC - ENT Exam ENT Exam: Mucous Membranes Moist - Neck Exam Neck Exam: Normal Inspection - Respiratory Exam Respiratory Exam: Decreased Breath Sounds - Cardiovascular Exam Cardiovascular Exam: Irregular Rhythm - GI/Abdominal Exam GI & Abdominal Exam: Soft, Normal Bowel Sounds - Extremities Exam Extremities Exam: Pedal Edema - Neurological Exam Neurological Exam: Altered Assessment and Plan (1) Altered mental status Assessment & Plan: Altered mental status with shortness of breath and requiring ventilatory support Continue antibiotics Follow up ABG and chest x-ray Neurology evaluation Continue steroids and bronchodilators Status: Acute (2) Hypotension Status: Acute (3) Sepsis Status: Acute (4) COPD (chronic obstructive pulmonary disease) Status: Chronic (5) OPHELIA (obstructive sleep apnea) Status: Chronic
[2017-05-06 18:48] LABS: ABG MECHANICAL RATE 14; ARTERIAL BLOOD GAS MODE PRVC; ARTERIAL BLOOD HGB O2 SAT 97.4 % (95.0-98.0); ATERIAL BLOOD GAS PEEP 5; CARBOXYHEMOGLOBIN 0.8 % (0.5-1.5); DRAW SITE RRA; HHB 0.5 % (0.0-5.0); METHEMOGLOBIN 1.3 % (0.0-3.0)
[2017-05-06 23:55] LABS: ACETYLCHOLINE REC BIND AB <0.30 nmol/L (<=0.30)
[2017-05-07] MEDS: Sodium Chloride 0.9% 1,000 ML IV SCH ×4 (00:54→20:50)
[2017-05-07] MEDS: Piperacill/Tazo 3.375gm in Dex 3.375 GM/50 ML BAG IVPB SCH ×4 (00:55→18:02)
[2017-05-07] MEDS: Albuterol-Ipratrop 3 mg / 0.5 (3 ml) UD INH SCH ×4 (01:40→19:42)
[2017-05-07] MEDS: Propofol 10 mg/ml 1,000 MG/100 ML VIAL IV PRN ×4 (03:47→18:24)
[2017-05-07 06:05] LABS: ABG ALLEN TEST POS; ABG MECHANICAL RATE 14; ARTERIAL BLOOD GAS MODE PRVC; ARTERIAL BLOOD HGB O2 SAT 96.8 % (95.0-98.0); ATERIAL BLOOD GAS PEEP 5; CARBOXYHEMOGLOBIN 1.5 % (0.5-1.5); DRAW SITE RR; HHB 0.1 % (0.0-5.0); METHEMOGLOBIN 1.6 % (0.0-3.0)
[2017-05-07 06:25] LABS: BASO % 0.2 % (0.0-2.0); EOS # 0.2 K/uL (0.0-0.7); EOS % 0.9 % (0.0-4.0); HEMATOCRIT 25.3 % (34.0-47.0); LYMPH # 3.1 K/uL (1.0-4.3); MEAN CELL VOLUME 82.1 fL (81.0-99.0); MEAN CORPUSCULAR HEMOGLOBIN 26.2 pg (27.0-31.0); MEAN CORPUSCULAR HGB CONC 31.9 g/dL (33.0-37.0); MEAN PLATELET VOLUME 7.6 fL (7.2-11.7); MONO # 1.6 K/uL (0.0-0.8); MONO % 7.7 % (0.0-10.0); NRBC % 0.1 % (0.0-2.0); RED CELL DISTRIBUTION WIDTH 18.7 % (11.5-14.5); WHITE BLOOD COUNT 20.6 K/uL (4.8-10.8)
[2017-05-07 06:44] LABS: ALB/GLOB RATIO 0.7 (1.0-2.1); ALKALINE PHOSPHATASE 65 U/L (38-126); ALT/SGPT 23 U/L (9-52); AST/SGOT 12 U/L (14-36); BILIRUBIN,TOTAL 0.5 mg/dL (0.2-1.3); BLOOD UREA NITROGEN 14 mg/dL (7-17); CALCIUM 8.9 mg/dl (8.6-10.4); CARBON DIOXIDE 23 mmol/L (22-30); CHLORIDE 104 mmol/L (98-107); GFR AFRICAN-AMERICAN > 60; GLUCOSE,RANDOM 91 mg/dL (65-105); MAGNESIUM 1.5 mg/dL (1.6-2.3); POTASSIUM 3.4 mmol/L (3.6-5.2); SODIUM 139 mmol/L (132-148); TOTAL PROTEIN 6.1 g/dL (6.3-8.3)
[2017-05-07 06:56] LABS: LYME DISEASE SCREEN <0.90 index
--- NOTE | 2017-05-07 09:10 | RAD ---
PROCEDURE: CHEST RADIOGRAPH, 1 VIEW HISTORY: intubated patient COMPARISON: 05/06/2017. FINDINGS: The endotracheal tube terminates 3.4 cm proximal to the beth. LUNGS: There is interval development of diffuse haziness in the left lung. There is severe pulmonary venous congestion. There is also opacification of the left lower lobe. PLEURA: Suspect small pleural effusions. No pneumothorax CARDIOVASCULAR: The heart remains enlarged with prominent central vasculature predominantly on the left. OSSEOUS STRUCTURES: No significant abnormalities. VISUALIZED UPPER ABDOMEN: Normal. OTHER FINDINGS: None. IMPRESSION: 1. Interval development of left lung haziness could represent pulmonary edema or and layering pleural effusion. 2. Persistent pulmonary venous congestion, cardiomegaly and suspect small pleural effusions. 3. Endotracheal tube terminates 3.4 cm proximal to the bteh.
[2017-05-07] MEDS: MethylPREDNISolone 40 mg Vial IVP SCH ×2 (09:44→17:34)
--- NOTE | 2017-05-07 10:54 | CP.CCUPN ---
<GerardoFernando dominguezri RaoulRenae - Last Filed: 05/07/17 10:51> CCU Subjective - Physician Review Subjective (Free Text): Patient was seen and examined at bedside in the morning. Patient intubated, alert, and able to respond by nodding her head. Patient reports she still has pain in her sacral region. Patient denies having chest pain, abdominal pain, dizziness, and fevers. 05/07/17 10:51 CCU Objective - Vital Signs / Intake & Output Vital Signs (Last 4 hours): Vital Signs Temp Pulse Resp BP Pulse Ox 05/07/17 09:44 124/79 05/07/17 08:00 99.1 F 89 16 121/82 100 05/07/17 07:00 82 16 99 Intake and Output (Last 8hrs): Intake & Output 05/06/17 05/07/17 05/07/17 22:59 06:59 14:59 Intake Total 1555 1549.0 268.5 Output Total 1075 1125 Balance 480 424.0 268.5 Weight 276 lb 7.355 oz Intake: IV 220 100 100 Intake, IV Amount 1335 1449.0 168.5 Proximal Port 5 Right Distal Port 1200 1300 150 Internal Jugular Right Medial Port 130 149.0 18.5 Internal Jugular Output: Urine 1075 1125 Urethral (Colmenares) 1075 1125 Other: # Bowel Movements 1 - Physical Exam Head: Positive for: Atraumatic, Normocephalic Extroacular Muscles: Positive for: EOMI Mouth: Positive for: Moist Mucous Membranes Respiratory/Chest: Positive for: Rales, Other (intubated). Negative for: Clear to Auscultation, Accessory Muscle Use, Wheezes, Decreased Breath Sounds, Rhonchi , Tachypneic Cardiovascular: Positive for: Normal S1, S2, Tachycardic Abdomen: Positive for: Other (Obese). Negative for: Tenderness, Normal Bowel Sounds (hypoactive) Rectal: Positive for: Other (Sacral wound) Upper Extremity: Positive for: Normal Inspection. Negative for: Edema Lower Extremity: Positive for: Edema, Swelling Skin: Positive for: Warm, Dry, Normal Color, Other (sacral wound- copious drainage) Psychiatric: Positive for: Alert. Negative for: Oriented x 3 - Medications Active Medications: Active Medications Generic Name Dose Route Start Last Admin Trade Name Freq PRN Reason Stop Dose Admin Albuterol/Ipratropium 3 ml 05/03/17 02:00 05/07/17 08:50 Duoneb 3 Mg/0.5 Mg (3 Ml) Ud INH 3 ml RQ6 RIK Administration Apixaban 5 mg 05/05/17 16:00 05/07/17 10:11 Eliquis PO Not Given BID RIK Famotidine 20 mg 05/07/17 10:00 05/07/17 09:44 Pepcid PO 20 mg DAILY RIK Administration Furosemide 40 mg 05/06/17 10:00 05/07/17 09:44 Lasix PO 05/10/17 23:59 40 mg DAILY RIK Administration Sodium Chloride 1,000 mls @ 150 mls/hr 05/02/17 20:45 05/07/17 05:59 Sodium Chloride 0.9% IV 150 mls/hr .[id number] RIK Administration Vancomycin HCl 1 gm/ Sodium 250 mls @ 166.7 mls/hr 05/03/17 09:00 05/07/17 09 :41 Chloride IVPB 166.7 mls/hr Q24H RIK Administration Diltiazem HCl 125 mg/ Sodium 125 mls @ 5 mls/hr 05/05/17 05:45 05/07/17 05:58 Chloride IV Not Given .Q24H RIK Protocol 5 MG/HR Piperacillin Sod/Tazobactam Sod 3.375 gm in 50 mls @ 100 mls/hr 05/05/17 19: 00 05/07/17 06:30 Zosyn 3.375 Gm Iv Premix IVPB 100 mls/hr Q6H RIK Administration Propofol 1,000 mg in 100 mls @ 3.9 mls/hr 05/06/17 16:23 05/07/17 07:50 Diprivan IV 23.71 mcg/kg/min .Q24H PRN 18.494 mls/hr TITRATE PER MD ORDER Administration Protocol 5 MCG/KG/MIN Potassium Chloride 20 meq in 100 mls @ 50 mls/hr 05/07/17 08:00 05/07/17 09: 42 Potassium Chloride 20 Meq/100 Ml IVPB 05/07/17 11:59 50 mls/hr Q2H RIK Administration Lorazepam 1 mg 05/04/17 09:00 Ativan IVP ONCE PRN Methylprednisolone 20 mg 05/03/17 08:25 08/18/17 09:44 Solu-Medrol IVP 20 mg BID RIK Administration Morphine Sulfate 2 mg 05/04/17 12:37 05/06/17 05:20 Morphine SC 2 mg Q4 PRN Administration Pain, moderate (4-7) Ondansetron HCl 4 mg 05/04/17 09:41 Zofran Inj IVP Q4 PRN Nausea/Vomiting - Patient Studies Lab Studies: Lab Studies 05/07/17 05/07/17 05/07/17 Range/Units 06:16 06:16 05:43 WBC 20.6 H (4.8-10.8) K/uL RBC 3.08 L (3.80-5.20) Mil/uL Hgb 8.1 L (11.0-16.0) g/dL Hct 25.3 L (34.0-47.0) % MCV 82.1 (81.0-99.0) fL MCH 26.2 L (27.0-31.0) pg MCHC 31.9 L (33.0-37.0) g/dL RDW 18.7 H (11.5-14.5) % Plt Count 415 H (130-400) K/uL MPV 7.6 (7.2-11.7) fL Neut % (Auto) 76.2 H (50.0-75.0) % Lymph % (Auto) 15.0 L (20.0-40.0) % [place] % (Auto) 7.7 (0.0-10.0) % Eos % (Auto) 0.9 (0.0-4.0) % Baso % (Auto) 0.2 (0.0-2.0) % Neut # 15.7 H (1.8-7.0) K/uL Lymph # 3.1 (1.0-4.3) K/uL [place] # 1.6 H (0.0-0.8) K/uL Eos # 0.2 (0.0-0.7) K/uL Baso # 0.0 (0.0-0.2) K/uL ESR (0-20) mm/hr Puncture Site pCO2 (35-45) mm/Hg pO2 (80-100) mm/Hg HCO3 (21-28) mmol/L ABG pH (7.35-7.45) ABG Total CO2 (22-28) mmol/L ABG O2 Saturation (95-98) % ABG Base Excess (-2.0-3.0) mmol/L ABG Hemoglobin (11.7-17.4) g/dL ABG Carboxyhemoglobin (0.5-1.5) % POC ABG HHb (Measured) (0.0-5.0) % ABG Methemoglobin (0.0-3.0) % Ming Test A-a O2 Difference mm/Hg Respiratory Index Hgb O2 Saturation (95.0-98.0) % Vent Mode Mechanical Rate FiO2 % Tidal Volume PEEP Sodium 139 (132-148) mmol/L Potassium 3.4 L (3.6-5.2) mmol/L Chloride 104 (98-107) mmol/L Carbon Dioxide 23 (22-30) mmol/L Anion Gap 15 (10-20) BUN 14 (7-17) mg/dL Creatinine 0.7 (0.7-1.2) MG/DL Est GFR ( Amer) > 60 Est GFR (Non-Af Amer) > 60 POC Glucose (mg/dL) 90 (65-110) mg/dL Random Glucose 91 (65-105) mg/dL Calcium 8.9 (8.6-10.4) mg/dl Phosphorus 3.0 (2.5-4.5) mg/dL Magnesium 1.5 L (1.6-2.3) mg/dL Total Bilirubin 0.5 (0.2-1.3) mg/dL AST 12 L D (14-36) U/L ALT 23 (9-52) U/L Alkaline Phosphatase 65 (38-126) U/L Total Protein 6.1 L (6.3-8.3) g/dL Albumin 2.6 L (3.5-5.0) g/dL Globulin 3.6 (2.2-3.9) gm/dL Albumin/Globulin Ratio 0.7 L (1.0-2.1) Rheum Arthritis Panel (NEGATIVE) Acetylchol Rcpt Bind Ab (<=0.30) nmol/L Lyme Disease Screen index CMV Specimen Source CMV DNA Quant PCR IU/mL CMV Qnt PCR log IU/mL Log IU/mL 08/05/06/17 05/06/17 Range/Units 05:23 23:38 18:45 WBC (4.8-10.8) K/uL RBC (3.80-5.20) Mil/uL Hgb (11.0-16.0) g/dL Hct (34.0-47.0) % MCV (81.0-99.0) fL MCH (27.0-31.0) pg MCHC (33.0-37.0) g/dL RDW (11.5-14.5) % Plt Count (130-400) K/uL MPV (7.2-11.7) fL Neut % (Auto) (50.0-75.0) % Lymph % (Auto) (20.0-40.0) % [place] % (Auto) (0.0-10.0) % Eos % (Auto) (0.0-4.0) % Baso % (Auto) (0.0-2.0) % Neut # (1.8-7.0) K/uL Lymph # (1.0-4.3) K/uL [place] # (0.0-0.8) K/uL Eos # (0.0-0.7) K/uL Baso # (0.0-0.2) K/uL ESR (0-20) mm/hr Puncture Site Rr Rra pCO2 37 38 (35-45) mm/Hg pO2 158 H 335 H (80-100) mm/Hg HCO3 26.8 24.7 (21-28) mmol/L ABG pH 7.46 H 7.41 (7.35-7.45) ABG Total CO2 27.4 25.3 (22-28) mmol/L ABG O2 Saturation 99.9 H 99.5 H (95-98) % ABG Base Excess 2.4 -0.3 (-2.0-3.0) mmol/L ABG Hemoglobin 8.4 L 15.9 (11.7-17.4) g/dL ABG Carboxyhemoglobin 1.5 0.8 (0.5-1.5) % POC ABG HHb (Measured) 0.1 0.5 (0.0-5.0) % ABG Methemoglobin 1.6 1.3 (0.0-3.0) % Ming Test Pos Na A-a O2 Difference 152.0 331.0 mm/Hg Respiratory Index 1.0 1.0 Hgb O2 Saturation 96.8 97.4 (95.0-98.0) % Vent Mode Prvc Prvc Mechanical Rate 14 14 FiO2 50.0 100.0 % Tidal Volume 500 500 PEEP 5 5 Sodium (132-148) mmol/L Potassium (3.6-5.2) mmol/L Chloride (98-107) mmol/L Carbon Dioxide (22-30) mmol/L Anion Gap (10-20) BUN (7-17) mg/dL Creatinine (0.7-1.2) MG/DL Est GFR ( Amer) Est GFR (Non-Af Amer) POC Glucose (mg/dL) 143 H (65-110) mg/dL Random Glucose (65-105) mg/dL Calcium (8.6-10.4) mg/dl Phosphorus (2.5-4.5) mg/dL Magnesium (1.6-2.3) mg/dL Total Bilirubin (0.2-1.3) mg/dL AST (14-36) U/L ALT (9-52) U/L Alkaline Phosphatase (38-126) U/L Total Protein (6.3-8.3) g/dL Albumin (3.5-5.0) g/dL Globulin (2.2-3.9) gm/dL Albumin/Globulin Ratio (1.0-2.1) Rheum Arthritis Panel (NEGATIVE) Acetylchol Rcpt Bind Ab (<=0.30) nmol/L Lyme Disease Screen index CMV Specimen Source CMV DNA Quant PCR IU/mL CMV Qnt PCR log IU/mL Log IU/mL 05/06/17 05/06/17 05/06/17 Range/Units 17:38 11:20 10:27 WBC (4.8-10.8) K/uL RBC (3.80-5.20) Mil/uL Hgb (11.0-16.0) g/dL Hct (34.0-47.0) % MCV (81.0-99.0) fL MCH (27.0-31.0) pg MCHC (33.0-37.0) g/dL RDW (11.5-14.5) % Plt Count (130-400) K/uL MPV (7.2-11.7) fL Neut % (Auto) (50.0-75.0) % Lymph % (Auto) (20.0-40.0) % [place] % (Auto) (0.0-10.0) % Eos % (Auto) (0.0-4.0) % Baso % (Auto) (0.0-2.0) % Neut # (1.8-7.0) K/uL Lymph # (1.0-4.3) K/uL [place] # (0.0-0.8) K/uL Eos # (0.0-0.7) K/uL Baso # (0.0-0.2) K/uL ESR (0-20) mm/hr Puncture Site pCO2 (35-45) mm/Hg pO2 (80-100) mm/Hg HCO3 (21-28) mmol/L ABG pH (7.35-7.45) ABG Total CO2 (22-28) mmol/L ABG O2 Saturation (95-98) % ABG Base Excess (-2.0-3.0) mmol/L ABG Hemoglobin (11.7-17.4) g/dL ABG Carboxyhemoglobin (0.5-1.5) % POC ABG HHb (Measured) (0.0-5.0) % ABG Methemoglobin (0.0-3.0) % Ming Test A-a O2 Difference mm/Hg Respiratory Index Hgb O2 Saturation (95.0-98.0) % Vent Mode Mechanical Rate FiO2 % Tidal Volume PEEP Sodium (132-148) mmol/L Potassium (3.6-5.2) mmol/L Chloride (98-107) mmol/L Carbon Dioxide (22-30) mmol/L Anion Gap (10-20) BUN (7-17) mg/dL Creatinine (0.7-1.2) MG/DL Est GFR ( Amer) Est GFR (Non-Af Amer) POC Glucose (mg/dL) 164 H 131 H (65-110) mg/dL Random Glucose (65-105) mg/dL Calcium (8.6-10.4) mg/dl Phosphorus (2.5-4.5) mg/dL Magnesium (1.6-2.3) mg/dL Total Bilirubin (0.2-1.3) mg/dL AST (14-36) U/L ALT (9-52) U/L Alkaline Phosphatase (38-126) U/L Total Protein (6.3-8.3) g/dL Albumin (3.5-5.0) g/dL Globulin (2.2-3.9) gm/dL Albumin/Globulin Ratio (1.0-2.1) Rheum Arthritis Panel Negative (NEGATIVE) Acetylchol Rcpt Bind Ab (<=0.30) nmol/L Lyme Disease Screen index CMV Specimen Source CMV DNA Quant PCR IU/mL CMV Qnt PCR log IU/mL Log IU/mL 05/06/17 05/04/17 05/04/17 Range/Units 10:27 08:29 08:29 WBC (4.8-10.8) K/uL RBC (3.80-5.20) Mil/uL Hgb (11.0-16.0) g/dL Hct (34.0-47.0) % MCV (81.0-99.0) fL MCH (27.0-31.0) pg MCHC (33.0-37.0) g/dL RDW (11.5-14.5) % Plt Count (130-400) K/uL MPV (7.2-11.7) fL Neut % (Auto) (50.0-75.0) % Lymph % (Auto) (20.0-40.0) % [place] % (Auto) (0.0-10.0) % Eos % (Auto) (0.0-4.0) % Baso % (Auto) (0.0-2.0) % Neut # (1.8-7.0) K/uL Lymph # (1.0-4.3) K/uL [place] # (0.0-0.8) K/uL Eos # (0.0-0.7) K/uL Baso # (0.0-0.2) K/uL ESR 85 H (0-20) mm/hr Puncture Site pCO2 (35-45) mm/Hg pO2 (80-100) mm/Hg HCO3 (21-28) mmol/L ABG pH (7.35-7.45) ABG Total CO2 (22-28) mmol/L ABG O2 Saturation (95-98) % ABG Base Excess (-2.0-3.0) mmol/L ABG Hemoglobin (11.7-17.4) g/dL ABG Carboxyhemoglobin (0.5-1.5) % POC ABG HHb (Measured) (0.0-5.0) % ABG Methemoglobin (0.0-3.0) % Ming Test A-a O2 Difference mm/Hg Respiratory Index Hgb O2 Saturation (95.0-98.0) % Vent Mode Mechanical Rate FiO2 % Tidal Volume PEEP Sodium (132-148) mmol/L Potassium (3.6-5.2) mmol/L Chloride (98-107) mmol/L Carbon Dioxide (22-30) mmol/L Anion Gap (10-20) BUN (7-17) mg/dL Creatinine (0.7-1.2) MG/DL Est GFR ( Amer) Est GFR (Non-Af Amer) POC Glucose (mg/dL) (65-110) mg/dL Random Glucose (65-105) mg/dL Calcium (8.6-10.4) mg/dl Phosphorus (2.5-4.5) mg/dL Magnesium (1.6-2.3) mg/dL Total Bilirubin (0.2-1.3) mg/dL AST (14-36) U/L ALT (9-52) U/L Alkaline Phosphatase (38-126) U/L Total Protein (6.3-8.3) g/dL Albumin (3.5-5.0) g/dL Globulin (2.2-3.9) gm/dL Albumin/Globulin Ratio (1.0-2.1) Rheum Arthritis Panel (NEGATIVE) Acetylchol Rcpt Bind Ab <0.30 (<=0.30) nmol/L Lyme Disease Screen <0.90 index CMV Specimen Source Plasma CMV DNA Quant PCR <200 IU/mL CMV Qnt PCR log IU/mL <2.30 Log IU/mL Laboratory Results - last 24 hr 05/04/17 05/04/17 05/06/17 08:29 08:29 10:27 WBC RBC Hgb Hct MCV MCH MCHC RDW Plt Count MPV Neut % (Auto) Lymph % (Auto) [place] % (Auto) Eos % (Auto) Baso % (Auto) Neut # Lymph # [place] # Eos # Baso # ESR 85 H Puncture Site pCO2 pO2 HCO3 ABG pH ABG Total CO2 ABG O2 Saturation ABG Base Excess ABG Hemoglobin ABG Carboxyhemoglobin POC ABG HHb (Measured) ABG Methemoglobin Ming Test A-a O2 Difference Respiratory Index Hgb O2 Saturation Vent Mode Mechanical Rate FiO2 Tidal Volume PEEP Sodium Potassium Chloride Carbon Dioxide Anion Gap BUN Creatinine Est GFR ( Amer) Est GFR (Non-Af Amer) POC Glucose (mg/dL) Random Glucose Calcium Phosphorus Magnesium Total Bilirubin AST ALT Alkaline Phosphatase Total Protein Albumin Globulin Albumin/Globulin Ratio Rheum Arthritis Panel Acetylchol Rcpt Bind Ab <0.30 Lyme Disease Screen <0.90 CMV Specimen Source Plasma CMV DNA Quant PCR <200 CMV Qnt PCR log IU/mL <2.30 05/06/17 05/06/17 05/06/17 10:27 11:20 17:38 WBC RBC Hgb Hct MCV MCH MCHC RDW Plt Count MPV Neut % (Auto) Lymph % (Auto) [place] % (Auto) Eos % (Auto) Baso % (Auto) Neut # Lymph # [place] # Eos # Baso # ESR Puncture Site pCO2 pO2 HCO3 ABG pH ABG Total CO2 ABG O2 Saturation ABG Base Excess ABG Hemoglobin ABG Carboxyhemoglobin POC ABG HHb (Measured) ABG Methemoglobin Ming Test A-a O2 Difference Respiratory Index Hgb O2 Saturation Vent Mode Mechanical Rate FiO2 Tidal Volume PEEP Sodium Potassium Chloride Carbon Dioxide Anion Gap BUN Creatinine Est GFR ( Amer) Est GFR (Non-Af Amer) POC Glucose (mg/dL) 131 H 164 H Random Glucose Calcium Phosphorus Magnesium Total Bilirubin AST ALT Alkaline Phosphatase Total Protein Albumin Globulin Albumin/Globulin Ratio Rheum Arthritis Panel Negative Acetylchol Rcpt Bind Ab Lyme Disease Screen CMV Specimen Source CMV DNA Quant PCR CMV Qnt PCR log IU/mL 05/06/17 05/06/17 05/07/17 18:45 23:38 05:23 WBC RBC Hgb Hct MCV MCH MCHC RDW Plt Count MPV Neut % (Auto) Lymph % (Auto) [place] % (Auto) Eos % (Auto) Baso % (Auto) Neut # Lymph # [place] # Eos # Baso # ESR Puncture Site Rra Rr pCO2 38 37 pO2 335 H 158 H HCO3 24.7 26.8 ABG pH 7.41 7.46 H ABG Total CO2 25.3 27.4 ABG O2 Saturation 99.5 H 99.9 H ABG Base Excess -0.3 2.4 ABG Hemoglobin 15.9 8.4 L ABG Carboxyhemoglobin 0.8 1.5 POC ABG HHb (Measured) 0.5 0.1 ABG Methemoglobin 1.3 1.6 Ming Test Na Pos A-a O2 Difference 331.0 152.0 Respiratory Index 1.0 1.0 Hgb O2 Saturation 97.4 96.8 Vent Mode Prvc Prvc Mechanical Rate 14 14 FiO2 100.0 50.0 Tidal Volume 500 500 PEEP 5 5 Sodium Potassium Chloride Carbon Dioxide Anion Gap BUN Creatinine Est GFR ( Amer) Est GFR (Non-Af Amer) POC Glucose (mg/dL) 143 H Random Glucose Calcium Phosphorus Magnesium Total Bilirubin AST ALT Alkaline Phosphatase Total Protein Albumin Globulin Albumin/Globulin Ratio Rheum Arthritis Panel Acetylchol Rcpt Bind Ab Lyme Disease Screen CMV Specimen Source CMV DNA Quant PCR CMV Qnt PCR log IU/mL 05/07/17 05/07/17 05/07/17 05:43 06:16 06:16 WBC 20.6 H RBC 3.08 L Hgb 8.1 L Hct 25.3 L MCV 82.1 MCH 26.2 L MCHC 31.9 L RDW 18.7 H Plt Count 415 H MPV 7.6 Neut % (Auto) 76.2 H Lymph % (Auto) 15.0 L [place] % (Auto) 7.7 Eos % (Auto) 0.9 Baso % (Auto) 0.2 Neut # 15.7 H Lymph # 3.1 [place] # 1.6 H Eos # 0.2 Baso # 0.0 ESR Puncture Site pCO2 pO2 HCO3 ABG pH ABG Total CO2 ABG O2 Saturation ABG Base Excess ABG Hemoglobin ABG Carboxyhemoglobin POC ABG HHb (Measured) ABG Methemoglobin Ming Test A-a O2 Difference Respiratory Index Hgb O2 Saturation Vent Mode Mechanical Rate FiO2 Tidal Volume PEEP Sodium 139 Potassium 3.4 L Chloride 104 Carbon Dioxide 23 Anion Gap 15 BUN 14 Creatinine 0.7 Est GFR ( Amer) > 60 Est GFR (Non-Af Amer) > 60 POC Glucose (mg/dL) 90 Random Glucose 91 Calcium 8.9 Phosphorus 3.0 Magnesium 1.5 L Total Bilirubin 0.5 AST 12 L D ALT 23 Alkaline Phosphatase 65 Total Protein 6.1 L Albumin 2.6 L Globulin 3.6 Albumin/Globulin Ratio 0.7 L Rheum Arthritis Panel Acetylchol Rcpt Bind Ab Lyme Disease Screen CMV Specimen Source CMV DNA Quant PCR CMV Qnt PCR log IU/mL Fingerstick Blood Sugar Results: 90 Review of Systems - Review of Systems Systems not reviewed;Unavailable: Intubated - Cardiovascular Cardiovascular: absent: Chest Pain - Gastrointestinal Gastrointestinal: absent: Abdominal Pain - Neurological Neurological: absent: Dizziness, Headaches Critical Care Progress Note - Vent Settings MODE:: PRVC TIDAL VOLUME:: 500 RESP RATE:: 14 FIO2:: 50 PEEP:: 5 - Nutrition Nutrition: Nutrition Category Date Time Status Heart Healthy Diet [DIET] Diets 05/04/17 Lunch Active Assessment/Plan - Assessment and Plan (Free Text) Assessment: 60-year-old female with history of anxiety, depression, chronic back pain, possible obstructive sleep apnea, COPD, was brought in by the family members because of altered mental status. Patient is hypotensive and septic. Patient has sacral wound, likely cause of sepsis. Patient went to the OR today for I/D of sacral wound. Wound vac in place. Wound culture came back positive for proteus mirabilis, group c strep-- continue Primaxin and vanco. Patient has new onset of a-fib, started cardizem drip on 05/05/17. Patient was in respiratory distress on 05/06/17 and intubated. 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 Neuro: - Alert - Neurology consulted: Dr. Irvin, help appreciated - MRI: patient refused - As per neurology, patient will be started on IV IG for 5 days with diuretics; further work-up for collagen vascular disease (monoclonal gammopathy with LUPE profile +, LUPE titer 1:40, speckled; Thyroperoxidase is very high); patient has significant paraplegia, arms- paretic and areflexic. 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 Pulm: CO2 retention with acute exacerbation secondary to sepsis - Patient went into respiratory distress, was Intubated on 05/06/17. - Duonebs - Monitor ABG - Weaning parameter: vital capacity 0.7 and negative inspiratory force -15 CV: hypotensive, new onset A-Fib - Secondary to sepsis - Hx of DVT (6 weeks prior)--> Continue Eliquis 5mg PO - Venous dopplers: DVT in Right deep popliteal and left common femoral, femoral , and popliteal. - Cardizem drip for A-fib Endo: no acute issues GI: Tube feeding - Pepcid daily : no acute issues - UA: 1+ protein & blood, 4 Urobilinogen, 23 WBC, 8 RBC, Few bacteria. Heme: anemic - Continue to monitor H/H - Heme/onc consulted for plasmapheresis- Dr Morales, help appreciated - Surgical team will place dialysis catheter for plasmapheresis treatments. Renal: - Elevated BUN/Cr--> improving, 14/0.7 - Monitor renal function - Hypokalemia: 3.2- gave KDur - Hypomagnesemia: Resolved ID: Sepsis, leukocytosis, bandemia - ID consulted: Dr. Ornelas, help appreciated - Sacral wound- Proteus Mirabilis, Group C strep - Surgery consulted: Dr. Almaraz, help appreciated - Patients sacral wound- I&D with wound vac - Continue Primaxin, Vanco - Wound care - C. Diff: negative Prophylaxis: - DVT: SCDs - GI: Pepcid daily - PT/OT <Martinez Sandoval - Last Filed: 05/08/17 22:27> CCU Objective - Vital Signs / Intake & Output Vital Signs (Last 4 hours): Vital Signs Temp Pulse Resp BP Pulse Ox 05/08/17 21:15 82 16 149/90 100 05/08/17 21:00 80 19 98 05/08/17 20:15 80 19 157/89 H 99 05/08/17 20:00 98.6 F 85 16 99 05/08/17 19:15 76 16 149/85 99 05/08/17 19:00 69 13 100 Intake and Output (Last 8hrs): Intake & Output 05/08/17 05/08/17 05/08/17 06:59 14:59 22:59 Intake Total 1448.0 1978.0 642.0 Output Total 890 1480 1205 Balance 558.0 498.0 -563.0 Intake: IV 200 100 0 Intake, IV Amount 1248.0 1598.0 442.0 Right Distal Port 1100 1000 375 Internal Jugular Right Medial Port 148.0 148.0 67.0 Internal Jugular prox. port internal 450 jugular Tube Feeding 280 200 Output: Drainage 100 Wound Vac 100 Urine 590 1480 1105 Urethral (Colmenares) 590 1480 1105 Stool 300 Other: # Bowel Movements 1 - Medications Active Medications: Active Medications Generic Name Dose Route Start Last Admin Trade Name Freq PRN Reason Stop Dose Admin Albuterol/Ipratropium 3 ml 05/03/17 02:00 05/08/17 19:44 Duoneb 3 Mg/0.5 Mg (3 Ml) Ud INH 3 ml RQ6 RIK Administration Apixaban 5 mg 05/05/17 16:00 05/08/17 17:50 Eliquis PO 5 mg BID RIK Administration Famotidine 20 mg 05/07/17 10:00 05/08/17 10:11 Pepcid PO 20 mg DAILY RIK Administration Furosemide 40 mg 05/06/17 10:00 05/08/17 10:10 Lasix PO 05/10/17 23:59 40 mg DAILY RIK Administration Vancomycin HCl 1 gm/ Sodium 250 mls @ 166.7 mls/hr 05/03/17 09:00 05/08/17 10 :13 Chloride IVPB 166.7 mls/hr Q24H RIK Administration Diltiazem HCl 125 mg/ Sodium 125 mls @ 5 mls/hr 05/05/17 05:45 05/07/17 05:58 Chloride IV Not Given .Q24H RIK Protocol 5 MG/HR Piperacillin Sod/Tazobactam Sod 3.375 gm in 50 mls @ 100 mls/hr 05/05/17 19: 00 05/08/17 18:13 Zosyn 3.375 Gm Iv Premix IVPB 100 mls/hr Q6H RIK Administration Propofol 1,000 mg in 100 mls @ 3.9 mls/hr 05/06/17 16:23 05/08/17 19:56 Diprivan IV 16 mcg/kg/min .Q24H PRN 12.48 mls/hr TITRATE PER MD ORDER Titration Protocol 5 MCG/KG/MIN Sodium Chloride 1,000 mls @ 75 mls/hr 05/08/17 10:00 05/08/17 10:16 Sodium Chloride 0.9% IV 75 mls/hr .[id number] RIK Administration Lorazepam 1 mg 05/04/17 09:00 Ativan IVP ONCE PRN Methylprednisolone 20 mg 05/03/17 08:25 05/08/17 17:49 Solu-Medrol IVP 20 mg BID RIK Administration Morphine Sulfate 2 mg 05/04/17 12:37 05/06/17 05:20 Morphine SC 2 mg Q4 PRN Administration Pain, moderate (4-7) Ondansetron HCl 4 mg 05/04/17 09:41 Zofran Inj IVP Q4 PRN Nausea/Vomiting - Patient Studies Lab Studies: Lab Studies 05/08/17 05/08/17 05/08/17 Range/Units 17:57 11:19 06:47 WBC (4.8-10.8) K/uL RBC (3.80-5.20) Mil/uL Hgb (11.0-16.0) g/dL Hct (34.0-47.0) % MCV (81.0-99.0) fL MCH (27.0-31.0) pg MCHC (33.0-37.0) g/dL RDW (11.5-14.5) % Plt Count (130-400) K/uL MPV (7.2-11.7) fL Neut % (Auto) (50.0-75.0) % Lymph % (Auto) (20.0-40.0) % [place] % (Auto) (0.0-10.0) % Eos % (Auto) (0.0-4.0) % Baso % (Auto) (0.0-2.0) % Neut # (1.8-7.0) K/uL Lymph # (1.0-4.3) K/uL [place] # (0.0-0.8) K/uL Eos # (0.0-0.7) K/uL Baso # (0.0-0.2) K/uL Puncture Site pCO2 (35-45) mm/Hg pO2 (80-100) mm/Hg HCO3 (21-28) mmol/L ABG pH (7.35-7.45) ABG Total CO2 (22-28) mmol/L ABG O2 Saturation (95-98) % ABG Base Excess (-2.0-3.0) mmol/L ABG Hemoglobin (11.7-17.4) g/dL ABG Carboxyhemoglobin (0.5-1.5) % POC ABG HHb (Measured) (0.0-5.0) % ABG Methemoglobin (0.0-3.0) % Ming Test A-a O2 Difference mm/Hg Respiratory Index Hgb O2 Saturation (95.0-98.0) % Vent Mode Mechanical Rate FiO2 % Tidal Volume PEEP Sodium 141 (132-148) mmol/L Potassium 3.6 (3.6-5.2) mmol/L Chloride 105 (98-107) mmol/L Carbon Dioxide 25 (22-30) mmol/L Anion Gap 15 (10-20) BUN 14 (7-17) mg/dL Creatinine 0.7 (0.7-1.2) MG/DL Est GFR ( Amer) > 60 Est GFR (Non-Af Amer) > 60 POC Glucose (mg/dL) 101 131 H (65-110) mg/dL Random Glucose 109 H (65-105) mg/dL Calcium 8.6 (8.6-10.4) mg/dl Phosphorus 4.2 (2.5-4.5) mg/dL Magnesium 1.4 L (1.6-2.3) mg/dL Total Bilirubin 0.4 (0.2-1.3) mg/dL AST 14 (14-36) U/L ALT 21 (9-52) U/L Alkaline Phosphatase 60 (38-126) U/L Total Protein 6.0 L (6.3-8.3) g/dL Albumin 2.5 L (3.5-5.0) g/dL Globulin 3.5 (2.2-3.9) gm/dL Albumin/Globulin Ratio 0.7 L (1.0-2.1) Ihls-[id number] Ab (<=20) DOMITILA Beta-2 GPI IgG Ab (<=20) SGU Beta-2 GPI IgM Ab (<=20) [facility] Phosphatidylserine IgG (<10) U/mL Phosphatidylserine IgA (<20) U/mL Phosphatidylserine IgM (<25) U/mL Anti-Phospholipid Intrp Anti-Cardiolipin IgG Ab (<=14) GPL Anti-Cardiolipin IgA Ab (<=11) APL Anti-Cardiolipin IgM Ab (<=12) MPL 05/08/17 05/08/17 05/08/17 Range/Units 06:47 06:01 04:40 WBC 18.4 H (4.8-10.8) K/uL RBC 3.24 L (3.80-5.20) Mil/uL Hgb 8.2 L (11.0-16.0) g/dL Hct 26.4 L (34.0-47.0) % MCV 81.6 (81.0-99.0) fL MCH 25.4 L (27.0-31.0) pg MCHC 31.2 L (33.0-37.0) g/dL RDW 18.6 H (11.5-14.5) % Plt Count 365 (130-400) K/uL MPV 8.1 (7.2-11.7) fL Neut % (Auto) 84.2 H (50.0-75.0) % Lymph % (Auto) 10.0 L (20.0-40.0) % [place] % (Auto) 5.6 (0.0-10.0) % Eos % (Auto) 0.1 (0.0-4.0) % Baso % (Auto) 0.1 (0.0-2.0) % Neut # 15.5 H (1.8-7.0) K/uL Lymph # 1.8 (1.0-4.3) K/uL [place] # 1.0 H (0.0-0.8) K/uL Eos # 0.0 (0.0-0.7) K/uL Baso # 0.0 (0.0-0.2) K/uL Puncture Site Rb pCO2 36 (35-45) mm/Hg pO2 180 H (80-100) mm/Hg HCO3 25.5 (21-28) mmol/L ABG pH 7.44 (7.35-7.45) ABG Total CO2 25.6 (22-28) mmol/L ABG O2 Saturation 99.6 H (95-98) % ABG Base Excess 0.8 (-2.0-3.0) mmol/L ABG Hemoglobin 19.8 H (11.7-17.4) g/dL ABG Carboxyhemoglobin 1.0 (0.5-1.5) % POC ABG HHb (Measured) 0.4 (0.0-5.0) % ABG Methemoglobin 1.2 (0.0-3.0) % Ming Test Na A-a O2 Difference 60.0 mm/Hg Respiratory Index 0.3 Hgb O2 Saturation 97.4 (95.0-98.0) % Vent Mode Prvc Mechanical Rate 14 FiO2 40.0 % Tidal Volume 500 PEEP 5 Sodium (132-148) mmol/L Potassium (3.6-5.2) mmol/L Chloride (98-107) mmol/L Carbon Dioxide (22-30) mmol/L Anion Gap (10-20) BUN (7-17) mg/dL Creatinine (0.7-1.2) MG/DL Est GFR ( Amer) Est GFR (Non-Af Amer) POC Glucose (mg/dL) 142 H (65-110) mg/dL Random Glucose (65-105) mg/dL Calcium (8.6-10.4) mg/dl Phosphorus (2.5-4.5) mg/dL Magnesium (1.6-2.3) mg/dL Total Bilirubin (0.2-1.3) mg/dL AST (14-36) U/L ALT (9-52) U/L Alkaline Phosphatase (38-126) U/L Total Protein (6.3-8.3) g/dL Albumin (3.5-5.0) g/dL Globulin (2.2-3.9) gm/dL Albumin/Globulin Ratio (1.0-2.1) Xyur-9-Woovxrnlpifz Ab (<=20) DOMITILA Beta-2 GPI IgG Ab (<=20) SGU Beta-2 GPI IgM Ab (<=20) [facility]U Phosphatidylserine IgG (<10) U/mL Phosphatidylserine IgA (<20) U/mL Phosphatidylserine IgM (<25) U/mL Anti-Phospholipid Intrp Anti-Cardiolipin IgG Ab (<=14) GPL Anti-Cardiolipin IgA Ab (<=11) APL Anti-Cardiolipin IgM Ab (<=12) MPL 05/07/17 05/04/17 Range/Units 23:44 20:53 WBC (4.8-10.8) K/uL RBC (3.80-5.20) Mil/uL Hgb (11.0-16.0) g/dL Hct (34.0-47.0) % MCV (81.0-99.0) fL MCH (27.0-31.0) pg MCHC (33.0-37.0) g/dL RDW (11.5-14.5) % Plt Count (130-400) K/uL MPV (7.2-11.7) fL Neut % (Auto) (50.0-75.0) % Lymph % (Auto) (20.0-40.0) % [place] % (Auto) (0.0-10.0) % Eos % (Auto) (0.0-4.0) % Baso % (Auto) (0.0-2.0) % Neut # (1.8-7.0) K/uL Lymph # (1.0-4.3) K/uL [place] # (0.0-0.8) K/uL Eos # (0.0-0.7) K/uL Baso # (0.0-0.2) K/uL Puncture Site pCO2 (35-45) mm/Hg pO2 (80-100) mm/Hg HCO3 (21-28) mmol/L ABG pH (7.35-7.45) ABG Total CO2 (22-28) mmol/L ABG O2 Saturation (95-98) % ABG Base Excess (-2.0-3.0) mmol/L ABG Hemoglobin (11.7-17.4) g/dL ABG Carboxyhemoglobin (0.5-1.5) % POC ABG HHb (Measured) (0.0-5.0) % ABG Methemoglobin (0.0-3.0) % Ming Test A-a O2 Difference mm/Hg Respiratory Index Hgb O2 Saturation (95.0-98.0) % Vent Mode Mechanical Rate FiO2 % Tidal Volume PEEP Sodium (132-148) mmol/L Potassium (3.6-5.2) mmol/L Chloride (98-107) mmol/L Carbon Dioxide (22-30) mmol/L Anion Gap (10-20) BUN (7-17) mg/dL Creatinine (0.7-1.2) MG/DL Est GFR ( Amer) Est GFR (Non-Af Amer) POC Glucose (mg/dL) 136 H (65-110) mg/dL Random Glucose (65-105) mg/dL Calcium (8.6-10.4) mg/dl Phosphorus (2.5-4.5) mg/dL Magnesium (1.6-2.3) mg/dL Total Bilirubin (0.2-1.3) mg/dL AST (14-36) U/L ALT (9-52) U/L Alkaline Phosphatase (38-126) U/L Total Protein (6.3-8.3) g/dL Albumin (3.5-5.0) g/dL Globulin (2.2-3.9) gm/dL Albumin/Globulin Ratio (1.0-2.1) Ukem-5-Ulpegtasrzrf Ab <9 (<=20) DOMTIILA Beta-2 GPI IgG Ab <9 (<=20) SGU Beta-2 GPI IgM Ab <9 (<=20) [facility] Phosphatidylserine IgG <10 (<10) U/mL Phosphatidylserine IgA <20 (<20) U/mL Phosphatidylserine IgM <25 (<25) U/mL Anti-Phospholipid Intrp see note Anti-Cardiolipin IgG Ab <14 (<=14) GPL Anti-Cardiolipin IgA Ab <11 (<=11) APL Anti-Cardiolipin IgM Ab <12 (<=12) MPL Laboratory Results - last 24 hr 05/04/17 05/07/17 05/08/17 20:53 23:44 04:40 WBC RBC Hgb Hct MCV MCH MCHC RDW Plt Count MPV Neut % (Auto) Lymph % (Auto) [place] % (Auto) Eos % (Auto) Baso % (Auto) Neut # Lymph # [place] # Eos # Baso # Puncture Site Rb pCO2 36 pO2 180 H HCO3 25.5 ABG pH 7.44 ABG Total CO2 25.6 ABG O2 Saturation 99.6 H ABG Base Excess 0.8 ABG Hemoglobin 19.8 H ABG Carboxyhemoglobin 1.0 POC ABG HHb (Measured) 0.4 ABG Methemoglobin 1.2 Ming Test Na A-a O2 Difference 60.0 Respiratory Index 0.3 Hgb O2 Saturation 97.4 Vent Mode Prvc Mechanical Rate 14 FiO2 40.0 Tidal Volume 500 PEEP 5 Sodium Potassium Chloride Carbon Dioxide Anion Gap BUN Creatinine Est GFR ( Amer) Est GFR (Non-Af Amer) POC Glucose (mg/dL) 136 H Random Glucose Calcium Phosphorus Magnesium Total Bilirubin AST ALT Alkaline Phosphatase Total Protein Albumin Globulin Albumin/Globulin Ratio Cxsv-7-Bpskumqiinqh Ab <9 Beta-2 GPI IgG Ab <9 Beta-2 GPI IgM Ab <9 Phosphatidylserine IgG <10 Phosphatidylserine IgA <20 Phosphatidylserine IgM <25 Anti-Phospholipid Intrp see note Anti-Cardiolipin IgG Ab <14 Anti-Cardiolipin IgA Ab <11 Anti-Cardiolipin IgM Ab <12 05/08/17 05/08/17 05/08/17 06:01 06:47 06:47 WBC 18.4 H RBC 3.24 L Hgb 8.2 L Hct 26.4 L MCV 81.6 MCH 25.4 L MCHC 31.2 L RDW 18.6 H Plt Count 365 MPV 8.1 Neut % (Auto) 84.2 H Lymph % (Auto) 10.0 L [place] % (Auto) 5.6 Eos % (Auto) 0.1 Baso % (Auto) 0.1 Neut # 15.5 H Lymph # 1.8 [place] # 1.0 H Eos # 0.0 Baso # 0.0 Puncture Site pCO2 pO2 HCO3 ABG pH ABG Total CO2 ABG O2 Saturation ABG Base Excess ABG Hemoglobin ABG Carboxyhemoglobin POC ABG HHb (Measured) ABG Methemoglobin Ming Test A-a O2 Difference Respiratory Index Hgb O2 Saturation Vent Mode Mechanical Rate FiO2 Tidal Volume PEEP Sodium 141 Potassium 3.6 Chloride 105 Carbon Dioxide 25 Anion Gap 15 BUN 14 Creatinine 0.7 Est GFR ( Amer) > 60 Est GFR (Non-Af Amer) > 60 POC Glucose (mg/dL) 142 H Random Glucose 109 H Calcium 8.6 Phosphorus 4.2 Magnesium 1.4 L Total Bilirubin 0.4 AST 14 ALT 21 Alkaline Phosphatase 60 Total Protein 6.0 L Albumin 2.5 L Globulin 3.5 Albumin/Globulin Ratio 0.7 L Wyhc-2-Jdqlnudyrxyb Ab Beta-2 GPI IgG Ab Beta-2 GPI IgM Ab Phosphatidylserine IgG Phosphatidylserine IgA Phosphatidylserine IgM Anti-Phospholipid Intrp Anti-Cardiolipin IgG Ab Anti-Cardiolipin IgA Ab Anti-Cardiolipin IgM Ab 08/19/17 08/19/17 11:19 17:57 WBC RBC Hgb Hct MCV MCH MCHC RDW Plt Count MPV Neut % (Auto) Lymph % (Auto) [place] % (Auto) Eos % (Auto) Baso % (Auto) Neut # Lymph # [place] # Eos # Baso # Puncture Site pCO2 pO2 HCO3 ABG pH ABG Total CO2 ABG O2 Saturation ABG Base Excess ABG Hemoglobin ABG Carboxyhemoglobin POC ABG HHb (Measured) ABG Methemoglobin Ming Test A-a O2 Difference Respiratory Index Hgb O2 Saturation Vent Mode Mechanical Rate FiO2 Tidal Volume PEEP Sodium Potassium Chloride Carbon Dioxide Anion Gap BUN Creatinine Est GFR ( Amer) Est GFR (Non-Af Amer) POC Glucose (mg/dL) 131 H 101 Random Glucose Calcium Phosphorus Magnesium Total Bilirubin AST ALT Alkaline Phosphatase Total Protein Albumin Globulin Albumin/Globulin Ratio Dbyg-2-Wyyeyrceddhw Ab Beta-2 GPI IgG Ab Beta-2 GPI IgM Ab Phosphatidylserine IgG Phosphatidylserine IgA Phosphatidylserine IgM Anti-Phospholipid Intrp Anti-Cardiolipin IgG Ab Anti-Cardiolipin IgA Ab Anti-Cardiolipin IgM Ab Critical Care Progress Note - Nutrition Nutrition: Nutrition Category Date Time Status Heart Healthy Diet [DIET] Diets 05/04/17 Lunch Active Attending/Attestation - Attestation I have personally seen and examined this patient.: Yes I have fully participated in the care of the patient.: Yes I have reviewed all pertinent clinical information: Yes Notes (Text): Today: Wednesday, May 07, 2017 The Patient was seen and examined at the bedside, Medical records reviewed, and management issues were discussed and formulated. All clinical/lab/hemodynamic/radiographic data were reviewed Events reviewed Pain issues, skin care, head of the bed elevation, glycemic control were addressed. Agree with above treatment plans as transcribed in Dr. Myers note
--- NOTE | 2017-05-07 12:47 | PN ---
DATE OF EVALUATION: 05/07/2017 TIME OF EVALUATION: 7:20 a.m. 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 PHYSICAL EXAMINATION: VITAL SIGNS: Blood pressure 122/73, mean arterial pressure of 91, respiratory rate 16, temperature afebrile, and pulse rate 82 regular. The patient progressively getting worse with respiratory failure, and she got intubated yesterday. She seems to be very lethargic. Eyes are partially opened. She could recognize me. She follows one step command, right and left confusion. She could able to move her arms from the elbow. She could not able to lift her arm at the shoulders, paraplegic. Deep tendon reflexes are absent. Plantars are absent. Sensory exam; no response to pain. From the workup, the patient was found to have monoclonal gammopathy, which is representing superimposed with sepsis representing with progressive sensory motor neuropathy. Considering her illness, the patient was started on intravenous immunoglobulin. However, due to the progression, I would like to switch to plasma exchange and followed with IVIG later on. Nephrology consult, Dr. Valles being called in for plasmapheresis, probably 0.5 liter exchange every other day x5. The patient's condition will be discussed with registered nurse. The patient will be followed postoperatively with Mario Irvin MD. Mario Irvin MD
--- NOTE | 2017-05-07 12:53 | RAD ---
HISTORY: intubated COMPARISON: 05/07/2017 at 7:18 a.m. FINDINGS: LUNGS: No definite infiltrate. PLEURA: Diffusely increased opacity of left mali thorax associated with blunting of left costophrenic angle consistent with dependent pleural effusion. No significant change from prior examination. CARDIOVASCULAR: ET tube and right IJ central venous catheter are unchanged. OSSEOUS STRUCTURES: No significant abnormalities. VISUALIZED UPPER ABDOMEN: Normal. OTHER FINDINGS: None. IMPRESSION: Small to moderate left pleural effusion, grossly unchanged. No infiltrate. Lines and tubes unchanged.
--- NOTE | 2017-05-07 13:18 | CP.PCM.CON ---
History of Present Illness - History of Present Illness History of Present Illness: 61 year old female with a history of progressive weakness, lethargy, brought in by her family for AMS. The patient is currently intubated and I am unable to obtain further history from the patient. Review of her records shows a progressive weakness following a fall in February which essentially progressed to a bed bound state. 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 Due to continued clinical decline, I have been asked to facilitate plasma exchange. Past medical, surgical, family, social history cannot be obtained from the patient. Allergies: NKA Review of systems cannot be obtained. Past Patient History - Past Medical History & Family History Past Medical History?: Yes - Past Social History Smoking Status: Light Smoker < 10 Cigarettes Daily - CARDIAC Hx Hypertension: Yes - PULMONARY Hx Pneumonia: Yes - NEUROLOGICAL Hx Neurological Disorder: No - HEENT Hx HEENT Problems: No - RENAL Hx Kidney Stones: Yes - ENDOCRINE/METABOLIC Hx Endocrine Disorders: No - HEMATOLOGICAL/ONCOLOGICAL Hx Blood Disorders: No - INTEGUMENTARY Other/Comment: Abdominal Fold reddened and weeping with foul smell - MUSCULOSKELETAL/RHEUMATOLOGICAL Hx Falls: Yes Hx Herniated Disk: Yes - GASTROINTESTINAL Hx Gastrointestinal Disorders: No - GENITOURINARY/GYNECOLOGICAL Hx Genitourinary Disorders: No - PSYCHIATRIC Hx Substance Use: No - SURGICAL HISTORY Hx Cholecystectomy: Yes - ANESTHESIA Hx Anesthesia: Yes Hx Anesthesia Reactions: No Hx Malignant Hyperthermia: No Meds Allergies/Adverse Reactions: Allergies Allergy/AdvReac Type Severity Reaction Status Date / Time No Known Allergies Allergy Verified 02/01/16 05:56 - Medications Medications: Current Medications Albuterol/Ipratropium (Duoneb 3 Mg/0.5 Mg (3 Ml) Ud) 3 ml INH RQ6 RIK Last Admin: 05/07/17 08:50 Dose: 3 ml Apixaban (Eliquis) 5 mg PO BID R[facility] Last Admin: 05/07/17 10:11 Dose: Not Given Famotidine (Pepcid) 20 mg PO DAILY RIK Last Admin: 05/07/17 09:44 Dose: 20 mg Furosemide (Lasix) 40 mg PO DAILY REPLACED BY [facility] Stop: 05/10/17 23:59 Last Admin: 05/07/17 09:44 Dose: 40 mg Sodium Chloride (Sodium Chloride 0.9%) 1,000 mls @ 150 mls/hr IV .Q6H40M REPLACED BY [facility] Last Admin: 05/07/17 05:59 Dose: 150 mls/hr Vancomycin HCl 1 gm/ Sodium (Chloride) 250 mls @ 166.7 mls/hr IVPB Q24H REPLACED BY [facility] Last Admin: 05/07/17 09:41 Dose: 166.7 mls/hr Diltiazem HCl 125 mg/ Sodium (Chloride) 125 mls @ 5 mls/hr IV .Q24H RIK; 5 MG/ HR PRN Reason: Protocol Last Admin: 05/07/17 05:58 Dose: Not Given Piperacillin Sod/Tazobactam Sod (Zosyn 3.375 Gm Iv Premix) 3.375 gm in 50 mls @ 100 mls/hr IVPB Q6H REPLACED BY [facility] Last Admin: 05/07/17 06:30 Dose: 100 mls/hr Propofol (Diprivan) 1,000 mg in 100 mls @ 3.9 mls/hr IV .Q24H PRN; Protocol; 5 MCG/KG/MIN PRN Reason: TITRATE PER MD ORDER Last Admin: 05/07/17 07:50 Dose: 23.71 mcg/kg/min, 18.494 mls/hr Lorazepam (Ativan) 1 mg IVP ONCE PRN Methylprednisolone (Solu-Medrol) 20 mg IVP BID REPLACED BY [facility] Last Admin: 05/07/17 09:44 Dose: 20 mg Morphine Sulfate (Morphine) 2 mg SC Q4 PRN PRN Reason: Pain, moderate (4-7) Last Admin: 05/06/17 05:20 Dose: 2 mg Ondansetron HCl (Zofran Inj) 4 mg IVP Q4 PRN PRN Reason: Nausea/Vomiting Physical Exam - Head Exam Head Exam: ATRAUMATIC - Eye Exam Eye Exam: Normal appearance - ENT Exam ENT Exam: Mucous Membranes Dry - Respiratory Exam Respiratory Exam: NORMAL BREATHING PATTERN - Cardiovascular Exam Cardiovascular Exam: +S1, +S2 - GI/Abdominal Exam GI & Abdominal Exam: Normal Bowel Sounds - Extremities Exam Extremities exam: Positive for: pedal edema - Neurological Exam Additional comments: sedated - Skin Skin Exam: Warm Results - Vital Signs Recent Vital Signs: Last Vital Signs Temp 99.1 F 05/07/17 08:00 Pulse 99 H 05/07/17 11:00 Resp 16 05/07/17 11:00 BP 120/67 05/07/17 11:00 Pulse Ox 99 05/07/17 11:00 - Labs Result Diagrams: 05/08/17 06:47 05/08/17 06:47 Labs: Laboratory Results - last 24 hr 05/04/17 05/04/17 05/06/17 08:29 08:29 10:27 WBC RBC Hgb Hct MCV MCH MCHC RDW Plt Count MPV Neut % (Auto) Lymph % (Auto) [place] % (Auto) Eos % (Auto) Baso % (Auto) Neut # Lymph # [place] # Eos # Baso # Puncture Site pCO2 pO2 HCO3 ABG pH ABG Total CO2 ABG O2 Saturation ABG Base Excess ABG Hemoglobin ABG Carboxyhemoglobin POC ABG HHb (Measured) ABG Methemoglobin Ming Test A-a O2 Difference Respiratory Index Hgb O2 Saturation Vent Mode Mechanical Rate FiO2 Tidal Volume PEEP Sodium Potassium Chloride Carbon Dioxide Anion Gap BUN Creatinine Est GFR ( Amer) Est GFR (Non-Af Amer) POC Glucose (mg/dL) Random Glucose Calcium Phosphorus Magnesium Total Bilirubin AST ALT Alkaline Phosphatase Total Protein Albumin Globulin Albumin/Globulin Ratio Rheum Arthritis Panel Negative Acetylchol Rcpt Bind Ab <0.30 Lyme Disease Screen <0.90 CMV Specimen Source Plasma CMV DNA Quant PCR <200 CMV Qnt PCR log IU/mL <2.30 05/06/17 05/06/17 05/06/17 17:38 18:45 23:38 WBC RBC Hgb Hct MCV MCH MCHC RDW Plt Count MPV Neut % (Auto) Lymph % (Auto) [place] % (Auto) Eos % (Auto) Baso % (Auto) Neut # Lymph # [place] # Eos # Baso # Puncture Site Rra pCO2 38 pO2 335 H HCO3 24.7 ABG pH 7.41 ABG Total CO2 25.3 ABG O2 Saturation 99.5 H ABG Base Excess -0.3 ABG Hemoglobin 15.9 ABG Carboxyhemoglobin 0.8 POC ABG HHb (Measured) 0.5 ABG Methemoglobin 1.3 Ming Test Na A-a O2 Difference 331.0 Respiratory Index 1.0 Hgb O2 Saturation 97.4 Vent Mode Prvc Mechanical Rate 14 FiO2 100.0 Tidal Volume 500 PEEP 5 Sodium Potassium Chloride Carbon Dioxide Anion Gap BUN Creatinine Est GFR ( Amer) Est GFR (Non-Af Amer) POC Glucose (mg/dL) 164 H 143 H Random Glucose Calcium Phosphorus Magnesium Total Bilirubin AST ALT Alkaline Phosphatase Total Protein Albumin Globulin Albumin/Globulin Ratio Rheum Arthritis Panel Acetylchol Rcpt Bind Ab Lyme Disease Screen CMV Specimen Source CMV DNA Quant PCR CMV Qnt PCR log IU/mL 05/07/17 05/07/17 05/07/17 05:23 05:43 06:16 WBC 20.6 H RBC 3.08 L Hgb 8.1 L Hct 25.3 L MCV 82.1 MCH 26.2 L MCHC 31.9 L RDW 18.7 H Plt Count 415 H MPV 7.6 Neut % (Auto) 76.2 H Lymph % (Auto) 15.0 L [place] % (Auto) 7.7 Eos % (Auto) 0.9 Baso % (Auto) 0.2 Neut # 15.7 H Lymph # 3.1 [place] # 1.6 H Eos # 0.2 Baso # 0.0 Puncture Site Rr pCO2 37 pO2 158 H HCO3 26.8 ABG pH 7.46 H ABG Total CO2 27.4 ABG O2 Saturation 99.9 H ABG Base Excess 2.4 ABG Hemoglobin 8.4 L ABG Carboxyhemoglobin 1.5 POC ABG HHb (Measured) 0.1 ABG Methemoglobin 1.6 Ming Test Pos A-a O2 Difference 152.0 Respiratory Index 1.0 Hgb O2 Saturation 96.8 Vent Mode Prvc Mechanical Rate 14 FiO2 50.0 Tidal Volume 500 PEEP 5 Sodium Potassium Chloride Carbon Dioxide Anion Gap BUN Creatinine Est GFR ( Amer) Est GFR (Non-Af Amer) POC Glucose (mg/dL) 90 Random Glucose Calcium Phosphorus Magnesium Total Bilirubin AST ALT Alkaline Phosphatase Total Protein Albumin Globulin Albumin/Globulin Ratio Rheum Arthritis Panel Acetylchol Rcpt Bind Ab Lyme Disease Screen CMV Specimen Source CMV DNA Quant PCR CMV Qnt PCR log IU/mL 05/07/17 05/07/17 06:16 11:40 WBC RBC Hgb Hct MCV MCH MCHC RDW Plt Count MPV Neut % (Auto) Lymph % (Auto) [place] % (Auto) Eos % (Auto) Baso % (Auto) Neut # Lymph # [place] # Eos # Baso # Puncture Site pCO2 pO2 HCO3 ABG pH ABG Total CO2 ABG O2 Saturation ABG Base Excess ABG Hemoglobin ABG Carboxyhemoglobin POC ABG HHb (Measured) ABG Methemoglobin Ming Test A-a O2 Difference Respiratory Index Hgb O2 Saturation Vent Mode Mechanical Rate FiO2 Tidal Volume PEEP Sodium 139 Potassium 3.4 L Chloride 104 Carbon Dioxide 23 Anion Gap 15 BUN 14 Creatinine 0.7 Est GFR ( Amer) > 60 Est GFR (Non-Af Amer) > 60 POC Glucose (mg/dL) 105 Random Glucose 91 Calcium 8.9 Phosphorus 3.0 Magnesium 1.5 L Total Bilirubin 0.5 AST 12 L D ALT 23 Alkaline Phosphatase 65 Total Protein 6.1 L Albumin 2.6 L Globulin 3.6 Albumin/Globulin Ratio 0.7 L Rheum Arthritis Panel Acetylchol Rcpt Bind Ab Lyme Disease Screen CMV Specimen Source CMV DNA Quant PCR CMV Qnt PCR log IU/mL Assessment & Plan (1) Guillain Tesfaye syndrome Assessment and Plan: per neurology, 0.5 plasma volume exchange with albumin every other day x 5 sessions surgical consult for line placement Status: Acute (2) Anemia Assessment and Plan: will check ferritin, retic count, b12, folate to further characterize likely chronic disease Status: Acute (3) Leukocytosis Assessment and Plan: on antibiotics and steroids Thank you for this interesting consult. Status: Acute
--- NOTE | 2017-05-07 14:56 | CP.PCM.PN ---
Subjective - Date & Time of Evaluation Date of Evaluation: 05/07/17 Time of Evaluation: 07:00 - Subjective Subjective: Pt S&E this morning. As per nursing, patient was in respiratory distress and intubated. She is alert. Able to respond yes/no questions. Reports some pain from wound vac site. There was some leakage from wound vac site yesterday afternoon, which was changed by nursing. Objective - Vital Signs/Intake and Output Vital Signs (last 24 hours): Temp Pulse Resp BP Pulse Ox 98.9 F 101 H 18 135/82 98 05/07/17 12:00 05/07/17 14:00 05/07/17 14:00 05/07/17 14:00 05/07/17 14:00 Intake and Output: 05/07/17 05/07/17 06:59 18:59 Intake Total 2259.0 1154.5 Output Total 1685 Balance 574.0 1154.5 - Medications Medications: Current Medications Albuterol/Ipratropium (Duoneb 3 Mg/0.5 Mg (3 Ml) Ud) 3 ml INH RQ6 [facility] Last Admin: 05/07/17 14:02 Dose: 3 ml Apixaban (Eliquis) 5 mg PO BID [facility] Last Admin: 05/07/17 10:11 Dose: Not Given Famotidine (Pepcid) 20 mg PO DAILY [facility] Last Admin: 05/07/17 09:44 Dose: 20 mg Furosemide (Lasix) 40 mg PO DAILY [facility] Stop: 05/10/17 23:59 Last Admin: 05/07/17 09:44 Dose: 40 mg Sodium Chloride (Sodium Chloride 0.9%) 1,000 mls @ 150 mls/hr IV .Q6H40M [facility] Last Admin: 05/07/17 05:59 Dose: 150 mls/hr Vancomycin HCl 1 gm/ Sodium (Chloride) 250 mls @ 166.7 mls/hr IVPB Q24H [facility] Last Admin: 05/07/17 09:41 Dose: 166.7 mls/hr Diltiazem HCl 125 mg/ Sodium (Chloride) 125 mls @ 5 mls/hr IV .Q24H RIK; 5 MG/ HR PRN Reason: Protocol Last Admin: 05/07/17 05:58 Dose: Not Given Piperacillin Sod/Tazobactam Sod (Zosyn 3.375 Gm Iv Premix) 3.375 gm in 50 mls @ 100 mls/hr IVPB Q6H [facility] Last Admin: 05/07/17 13:47 Dose: 100 mls/hr Propofol (Diprivan) 1,000 mg in 100 mls @ 3.9 mls/hr IV .Q24H PRN; Protocol; 5 MCG/KG/MIN PRN Reason: TITRATE PER MD ORDER Last Admin: 05/07/17 13:46 Dose: 23.71 mcg/kg/min, 18.494 mls/hr Lorazepam (Ativan) 1 mg IVP ONCE PRN Methylprednisolone (Solu-Medrol) 20 mg IVP BID [facility] Last Admin: 05/07/17 09:44 Dose: 20 mg Morphine Sulfate (Morphine) 2 mg SC Q4 PRN PRN Reason: Pain, moderate (4-7) Last Admin: 05/06/17 05:20 Dose: 2 mg Ondansetron HCl (Zofran Inj) 4 mg IVP Q4 PRN PRN Reason: Nausea/Vomiting - Labs Labs: 05/07/17 06:16 05/07/17 06:16 PT 12.4 SECONDS (9.7-12.2) H 05/05/17 06:40 INR 1.1 05/05/17 06:40 APTT 27 SECONDS (21-34) 05/04/17 06:35 - Constitutional Appears: No Acute Distress - Head Exam Head Exam: NORMOCEPHALIC - Eye Exam Eye Exam: Normal appearance - ENT Exam ENT Exam: Mucous Membranes Moist - Respiratory Exam Respiratory Exam: NORMAL BREATHING PATTERN - Cardiovascular Exam Cardiovascular Exam: +S1, +S2 - GI/Abdominal Exam GI & Abdominal Exam: Soft - Neurological Exam Neurological Exam: Alert, Awake, Oriented x3 - Psychiatric Exam Psychiatric exam: Normal Mood - Skin Skin Exam: Dry, Warm Assessment and Plan - Assessment and Plan (Free Text) Assessment: 61F s/p sacral wound decubitus ulcer debridement w/ wound vac placement POD3 -Change wound vac ~72 hours -Monitor output -Medical management as per ICU team - F/u Hem-Onc recs, possible dialysis catheter placement for plasmapharesis -Further recs per Dr. Rufina Connors PGY2
[2017-05-07] MEDS ORDERED: DiphenhydrAMINE 50 mg/ml Inj IVP ONE (16:38)
--- NOTE | 2017-05-07 17:20 | CP.PCM.PN ---
Subjective - Date & Time of Evaluation Date of Evaluation: 05/07/17 Time of Evaluation: 16:00 - Subjective Subjective: Patient seen and examined. Status post insertion on ann catheter for plasmapheresis Remains intubated on ventilatory support with FiO2 reduced to 40% Awake and follows commands Afebrile Objective - Vital Signs/Intake and Output Vital Signs (last 24 hours): Temp Pulse Resp BP Pulse Ox 97.5 F L 104 H 19 135/84 99 05/07/17 16:00 05/07/17 17:00 05/07/17 17:00 05/07/17 17:00 05/07/17 17:00 Intake and Output: 05/07/17 05/07/17 06:59 18:59 Intake Total 2259.0 1660.0 Output Total 1685 Balance 574.0 1660.0 - Medications Medications: Current Medications Albuterol/Ipratropium (Duoneb 3 Mg/0.5 Mg (3 Ml) Ud) 3 ml INH RQ6 [facility] Last Admin: 05/07/17 14:02 Dose: 3 ml Apixaban (Eliquis) 5 mg PO BID [facility] Last Admin: 05/07/17 10:11 Dose: Not Given Famotidine (Pepcid) 20 mg PO DAILY [facility] Last Admin: 05/07/17 09:44 Dose: 20 mg Furosemide (Lasix) 40 mg PO DAILY [facility] Stop: 05/10/17 23:59 Last Admin: 05/07/17 09:44 Dose: 40 mg Sodium Chloride (Sodium Chloride 0.9%) 1,000 mls @ 150 mls/hr IV .Q6H40M [facility] Last Admin: 05/07/17 15:42 Dose: Not Given Vancomycin HCl 1 gm/ Sodium (Chloride) 250 mls @ 166.7 mls/hr IVPB Q24H [facility] Last Admin: 05/07/17 09:41 Dose: 166.7 mls/hr Diltiazem HCl 125 mg/ Sodium (Chloride) 125 mls @ 5 mls/hr IV .Q24H RIK; 5 MG/ HR PRN Reason: Protocol Last Admin: 05/07/17 05:58 Dose: Not Given Piperacillin Sod/Tazobactam Sod (Zosyn 3.375 Gm Iv Premix) 3.375 gm in 50 mls @ 100 mls/hr IVPB Q6H [facility] Last Admin: 05/07/17 13:47 Dose: 100 mls/hr Propofol (Diprivan) 1,000 mg in 100 mls @ 3.9 mls/hr IV .Q24H PRN; Protocol; 5 MCG/KG/MIN PRN Reason: TITRATE PER MD ORDER Last Admin: 05/07/17 13:46 Dose: 23.71 mcg/kg/min, 18.494 mls/hr Calcium Gluconate 2,000 mg/ (Sodium Chloride) 270 mls @ 135 mls/hr IVPB ONCE ONE Stop: 05/07/17 18:35 Albumin Human (Albumin Human 5% (12.5 Gm/250 Ml)) 500 mls @ 7.5 mls/min IV Q1H [facility] Stop: 05/07/17 23:59 Lorazepam (Ativan) 1 mg IVP ONCE PRN Methylprednisolone (Solu-Medrol) 20 mg IVP BID [facility] Last Admin: 05/07/17 09:44 Dose: 20 mg Morphine Sulfate (Morphine) 2 mg SC Q4 PRN PRN Reason: Pain, moderate (4-7) Last Admin: 05/06/17 05:20 Dose: 2 mg Ondansetron HCl (Zofran Inj) 4 mg IVP Q4 PRN PRN Reason: Nausea/Vomiting - Labs Labs: 05/07/17 06:16 05/07/17 06:16 PT 12.4 SECONDS (9.7-12.2) H 05/05/17 06:40 INR 1.1 05/05/17 06:40 APTT 27 SECONDS (21-34) 05/04/17 06:35 - Head Exam Head Exam: ATRAUMATIC, NORMOCEPHALIC - ENT Exam ENT Exam: Mucous Membranes Moist - Neck Exam Neck Exam: Normal Inspection - Respiratory Exam Respiratory Exam: Clear to Ausculation Bilateral - Cardiovascular Exam Cardiovascular Exam: REGULAR RHYTHM - GI/Abdominal Exam GI & Abdominal Exam: Soft, Normal Bowel Sounds Assessment and Plan (1) Altered mental status Assessment & Plan: More responsive 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
--- NOTE | 2017-05-07 17:25 | PCM.PROC ---
Procedures Attestation:: I certify that I have explained the specified Operation(s) or Procedure(s), risks, benefits and reasonable alternatives to the Patient and/or other person responsible. The opportunity was given to ask questions and all questions answered - Central Line Placement Right Femoral Hemodialysis Access Aseptic technique was employed throughout the procedure: Full sterile barriers ( mask, hair cover, sterile gown, sterile gloves), Full body sterile drape, Chloraprep Antiseptic: 2 minute prep for Femoral CVP Time Out Performed: Yes Pt. Placed on Pulse Ox Monitor: Yes Central Line Prep: Chlorhexidine-Alcohol Combination Local Anesthesia Used: Lidocaine 1% Amount of Anesthesia Used (mls): 3 Ultrasound Used for Placement: Yes Central Line Lumen Inserted: double Central Line Length: 20 cm Post Procedure: Sutured in Place, Good Blood Return, All Ports Aspirated, Flushed, Capped, Sterile Dressing Applied Secured by: Suture Post procedure dressing: Gauze Patient Tolerated Procedure: Well Immediate Complications: None
--- NOTE | 2017-05-07 17:47 | CP.PCM.PN ---
Subjective - Date & Time of Evaluation Date of Evaluation: 05/07/17 Time of Evaluation: 08:00 - Subjective Subjective: Remains intubated on ventilatory support with FiO2 reduced to 40% Awake and follows commands Afebrile Started on plasmapheresis Objective - Vital Signs/Intake and Output Vital Signs (last 24 hours): Temp Pulse Resp BP Pulse Ox 97.5 F L 104 H 19 135/84 99 05/07/17 16:00 05/07/17 17:00 05/07/17 17:00 05/07/17 17:00 05/07/17 17:00 Intake and Output: 05/07/17 05/07/17 06:59 18:59 Intake Total 2259.0 1660.0 Output Total 1685 Balance 574.0 1660.0 - Medications Medications: Current Medications Albuterol/Ipratropium (Duoneb 3 Mg/0.5 Mg (3 Ml) Ud) 3 ml INH RQ6 [facility] Last Admin: 05/07/17 14:02 Dose: 3 ml Apixaban (Eliquis) 5 mg PO BID [facility] Last Admin: 05/07/17 17:34 Dose: 5 mg Famotidine (Pepcid) 20 mg PO DAILY [facility] Last Admin: 05/07/17 09:44 Dose: 20 mg Furosemide (Lasix) 40 mg PO DAILY [facility] Stop: 05/10/17 23:59 Last Admin: 05/07/17 09:44 Dose: 40 mg Sodium Chloride (Sodium Chloride 0.9%) 1,000 mls @ 150 mls/hr IV .Q6H40M [facility] Last Admin: 05/07/17 15:42 Dose: Not Given Vancomycin HCl 1 gm/ Sodium (Chloride) 250 mls @ 166.7 mls/hr IVPB Q24H [facility] Last Admin: 05/07/17 09:41 Dose: 166.7 mls/hr Diltiazem HCl 125 mg/ Sodium (Chloride) 125 mls @ 5 mls/hr IV .Q24H [facility]; 5 MG/ HR PRN Reason: Protocol Last Admin: 05/07/17 05:58 Dose: Not Given Piperacillin Sod/Tazobactam Sod (Zosyn 3.375 Gm Iv Premix) 3.375 gm in 50 mls @ 100 mls/hr IVPB Q6H [facility] Last Admin: 05/07/17 13:47 Dose: 100 mls/hr Propofol (Diprivan) 1,000 mg in 100 mls @ 3.9 mls/hr IV .Q24H PRN; Protocol; 5 MCG/KG/MIN PRN Reason: TITRATE PER MD ORDER Last Admin: 05/07/17 13:46 Dose: 23.71 mcg/kg/min, 18.494 mls/hr Calcium Gluconate 2,000 mg/ (Sodium Chloride) 270 mls @ 135 mls/hr IVPB ONCE ONE Stop: 05/07/17 18:35 Albumin Human (Albumin Human 5% (12.5 Gm/250 Ml)) 500 mls @ 7.5 mls/min IV Q1H [facility] Stop: 05/07/17 23:59 Lorazepam (Ativan) 1 mg IVP ONCE PRN Methylprednisolone (Solu-Medrol) 20 mg IVP BID [facility] Last Admin: 05/07/17 17:34 Dose: 20 mg Morphine Sulfate (Morphine) 2 mg SC Q4 PRN PRN Reason: Pain, moderate (4-7) Last Admin: 05/06/17 05:20 Dose: 2 mg Ondansetron HCl (Zofran Inj) 4 mg IVP Q4 PRN PRN Reason: Nausea/Vomiting - Labs Labs: 05/07/17 06:16 05/07/17 06:16 PT 12.4 SECONDS (9.7-12.2) H 05/05/17 06:40 INR 1.1 05/05/17 06:40 APTT 27 SECONDS (21-34) 05/04/17 06:35 - Constitutional Appears: Non-toxic, Chronically Ill - Head Exam Head Exam: NORMOCEPHALIC - Eye Exam Eye Exam: PERRL - ENT Exam ENT Exam: Mucous Membranes Dry - Neck Exam Neck Exam: absent: Lymphadenopathy - Respiratory Exam Respiratory Exam: Decreased Breath Sounds, Rhonchi - Cardiovascular Exam Cardiovascular Exam: REGULAR RHYTHM - GI/Abdominal Exam GI & Abdominal Exam: Distended, Soft - Rectal Exam Rectal Exam: Deferred - Exam Exam: NORMAL INSPECTION - Back Exam Back Exam: absent: CVA tenderness (L), CVA tenderness (R) - Neurological Exam Neurological Exam: Alert, Awake Assessment and Plan (1) Dehydration Status: Acute (2) Hypotension Status: Acute (3) Sepsis Status: Acute (4) Morbidly obese Status: Chronic (5) Altered mental status Status: Acute (6) Anxiety Status: Acute (7) Cellulitis Status: Acute (8) Chronic pain Status: Acute (9) Weakness Status: Acute (10) COPD (chronic obstructive pulmonary disease) Status: Chronic (11) HTN (hypertension) Status: Chronic (12) OPHELIA (obstructive sleep apnea) Status: Chronic (13) Spinal stenosis Status: Chronic (14) SIRS (systemic inflammatory response syndrome) Status: Resolved - Assessment and Plan (Free Text) Assessment: hx of spinal stenosis strage IV sacral wound from home IV rx in progress ON plasmapherisis for GBS
--- NOTE | 2017-05-07 19:07 | CP.PCM.PN ---
Subjective - Date & Time of Evaluation Date of Evaluation: 05/07/17 Time of Evaluation: 12:40 - Subjective Subjective: clinically same Objective - Vital Signs/Intake and Output Vital Signs (last 24 hours): Temp Pulse Resp BP Pulse Ox 97.5 F L 87 19 137/81 98 05/07/17 16:00 05/07/17 18:00 05/07/17 18:00 05/07/17 18:00 05/07/17 18:00 Intake and Output: 05/07/17 05/08/17 18:59 06:59 Intake Total 1928.5 Output Total 1000 Balance 928.5 - Medications Medications: Current Medications Albuterol/Ipratropium (Duoneb 3 Mg/0.5 Mg (3 Ml) Ud) 3 ml INH RQ6 [facility] Last Admin: 05/07/17 14:02 Dose: 3 ml Apixaban (Eliquis) 5 mg PO BID [facility] Last Admin: 05/07/17 17:34 Dose: 5 mg Famotidine (Pepcid) 20 mg PO DAILY [facility] Last Admin: 05/07/17 09:44 Dose: 20 mg Furosemide (Lasix) 40 mg PO DAILY [facility] Stop: 05/10/17 23:59 Last Admin: 05/07/17 09:44 Dose: 40 mg Sodium Chloride (Sodium Chloride 0.9%) 1,000 mls @ 150 mls/hr IV .Q6H40M [facility] Last Admin: 05/07/17 15:42 Dose: Not Given Vancomycin HCl 1 gm/ Sodium (Chloride) 250 mls @ 166.7 mls/hr IVPB Q24H [facility] Last Admin: 05/07/17 09:41 Dose: 166.7 mls/hr Diltiazem HCl 125 mg/ Sodium (Chloride) 125 mls @ 5 mls/hr IV .Q24H [facility]; 5 MG/ HR PRN Reason: Protocol Last Admin: 05/07/17 05:58 Dose: Not Given Piperacillin Sod/Tazobactam Sod (Zosyn 3.375 Gm Iv Premix) 3.375 gm in 50 mls @ 100 mls/hr IVPB Q6H [facility] Last Admin: 05/07/17 18:02 Dose: 100 mls/hr Propofol (Diprivan) 1,000 mg in 100 mls @ 3.9 mls/hr IV .Q24H PRN; Protocol; 5 MCG/KG/MIN PRN Reason: TITRATE PER MD ORDER Last Admin: 05/07/17 18:24 Dose: 23.71 mcg/kg/min, 18.494 mls/hr Albumin Human (Albumin Human 5% (12.5 Gm/250 Ml)) 500 mls @ 7.5 mls/min IV Q1H [facility] Stop: 05/07/17 23:59 Lorazepam (Ativan) 1 mg IVP ONCE PRN Methylprednisolone (Solu-Medrol) 20 mg IVP BID [facility] Last Admin: 05/07/17 17:34 Dose: 20 mg Morphine Sulfate (Morphine) 2 mg SC Q4 PRN PRN Reason: Pain, moderate (4-7) Last Admin: 05/06/17 05:20 Dose: 2 mg Ondansetron HCl (Zofran Inj) 4 mg IVP Q4 PRN PRN Reason: Nausea/Vomiting - Labs Labs: 05/07/17 06:16 05/07/17 06:16 PT 12.4 SECONDS (9.7-12.2) H 05/05/17 06:40 INR 1.1 05/05/17 06:40 APTT 27 SECONDS (21-34) 05/04/17 06:35 - Constitutional Appears: Well - Head Exam Head Exam: ATRAUMATIC, NORMAL INSPECTION, NORMOCEPHALIC - Eye Exam Eye Exam: EOMI, Normal appearance, PERRL Pupil Exam: NORMAL ACCOMODATION, PERRL - ENT Exam ENT Exam: Mucous Membranes Moist, Normal Exam - Neck Exam Neck Exam: Full ROM, Normal Inspection. absent: Lymphadenopathy - Respiratory Exam Respiratory Exam: Decreased Breath Sounds - Cardiovascular Exam Cardiovascular Exam: REGULAR RHYTHM, +S1, +S2 - GI/Abdominal Exam GI & Abdominal Exam: Soft, Diminished Bowel Sounds - Rectal Exam Rectal Exam: Deferred
[2017-05-07 20:01] LABS: Interpretation Negative (Negative)
--- NOTE | 2017-05-07 20:11 | EEG ---
DATE: 05/04/2017 The resting electroencephalogram shows 20 to 30 microvolt diffuse 5 to 7 Hz theta activities noted, which followed with high-amplitude delta activities seen which is consistent with the early drowsiness. The photic stimulation did not evoke driving response noted at 2 to 20 Hz. Some movement artifact and eye blinking artifact contaminated with the background rhythm intermittently. IMPRESSION: This is abnormal electroencephalogram because of persistent slowing throughout the record suggestive of bilateral cerebral dysfunction. This is probably secondary to metabolic, vascular or degenerative process. Please correlate the finding with the neurological and radiological studies. Mario Irvin MD
[2017-05-07 20:53] LABS: WNV AB IGG 0.03; WNV AB IGM 0.02
[2017-05-08] MEDS: Propofol 10 mg/ml 1,000 MG/100 ML VIAL IV PRN ×3 (01:00→13:53)
[2017-05-08] MEDS: Albuterol-Ipratrop 3 mg / 0.5 (3 ml) UD INH SCH ×4 (01:10→19:44)
--- NOTE | 2017-05-08 01:20 | CP.PCM.PN ---
<Brandon Fletcher - Last Filed: 05/08/17 01:17> Subjective - Date & Time of Evaluation Date of Evaluation: 05/08/17 Time of Evaluation: 01:17 - Subjective Subjective: SURGERY NOTE FOR DR. ALMARAZ 61F seen and examined at bedside. Patient intubated with right femoral catheter inserted yesterday for use of plasmapheresis. Objective - Vital Signs/Intake and Output Vital Signs (last 24 hours): Temp Pulse Resp BP Pulse Ox 97.5 F L 86 18 122/74 97 05/07/17 16:00 05/07/17 19:00 05/07/17 19:00 05/07/17 19:00 05/07/17 19:00 Intake and Output: 05/07/17 05/08/17 18:59 06:59 Intake Total 1928.5 168.5 Output Total 2000 Balance -71.5 168.5 - Medications Medications: Current Medications Albuterol/Ipratropium (Duoneb 3 Mg/0.5 Mg (3 Ml) Ud) 3 ml INH RQ6 [facility] Last Admin: 05/08/17 01:10 Dose: 3 ml Apixaban (Eliquis) 5 mg PO BID [facility] Last Admin: 05/07/17 17:34 Dose: 5 mg Famotidine (Pepcid) 20 mg PO DAILY [facility] Last Admin: 05/07/17 09:44 Dose: 20 mg Furosemide (Lasix) 40 mg PO DAILY [facility] Stop: 05/10/17 23:59 Last Admin: 05/07/17 09:44 Dose: 40 mg Sodium Chloride (Sodium Chloride 0.9%) 1,000 mls @ 150 mls/hr IV .Q6H40M [facility] Last Admin: 05/07/17 15:42 Dose: Not Given Vancomycin HCl 1 gm/ Sodium (Chloride) 250 mls @ 166.7 mls/hr IVPB Q24H [facility] Last Admin: 05/07/17 09:41 Dose: 166.7 mls/hr Diltiazem HCl 125 mg/ Sodium (Chloride) 125 mls @ 5 mls/hr IV .Q24H [facility]; 5 MG/ HR PRN Reason: Protocol Last Admin: 05/07/17 05:58 Dose: Not Given Piperacillin Sod/Tazobactam Sod (Zosyn 3.375 Gm Iv Premix) 3.375 gm in 50 mls @ 100 mls/hr IVPB Q6H [facility] Last Admin: 05/07/17 18:02 Dose: 100 mls/hr Propofol (Diprivan) 1,000 mg in 100 mls @ 3.9 mls/hr IV .Q24H PRN; Protocol; 5 MCG/KG/MIN PRN Reason: TITRATE PER MD ORDER Last Admin: 05/07/17 18:24 Dose: 23.71 mcg/kg/min, 18.494 mls/hr Lorazepam (Ativan) 1 mg IVP ONCE PRN Methylprednisolone (Solu-Medrol) 20 mg IVP BID [facility] Last Admin: 05/07/17 17:34 Dose: 20 mg Morphine Sulfate (Morphine) 2 mg SC Q4 PRN PRN Reason: Pain, moderate (4-7) Last Admin: 05/06/17 05:20 Dose: 2 mg Ondansetron HCl (Zofran Inj) 4 mg IVP Q4 PRN PRN Reason: Nausea/Vomiting - Labs Labs: 05/07/17 06:16 05/07/17 06:16 PT 12.4 SECONDS (9.7-12.2) H 05/05/17 06:40 INR 1.1 05/05/17 06:40 APTT 27 SECONDS (21-34) 05/04/17 06:35 - Constitutional Appears: Other (intubated) - Respiratory Exam Respiratory Exam: Clear to Ausculation Bilateral, NORMAL BREATHING PATTERN - Cardiovascular Exam Cardiovascular Exam: REGULAR RHYTHM, +S1, +S2 - Rectal Exam Additional comments: wound vac in place, no leak - Extremities Exam Additional comments: right femoral catheter in place. dressing CDI Assessment and Plan - Assessment and Plan (Free Text) Assessment: 61F s/p wound vac placement POD4, right femoral catheter placement - change wound vac q3days - monitor catheter site Further recs discuss with Dr. Rufina Fletcher PGY2 <Juan Almaraz - Last Filed: 05/08/17 17:57> Objective - Vital Signs/Intake and Output Vital Signs (last 24 hours): Temp Pulse Resp BP Pulse Ox 98.6 F 76 13 143/83 99 05/08/17 16:00 05/08/17 16:15 05/08/17 16:15 05/08/17 16:15 05/08/17 16:15 Intake and Output: 05/08/17 05/08/17 06:59 18:59 Intake Total 2122.0 1787.6 Output Total 1110 1835 Balance 1012.0 -47.4 - Medications Medications: Current Medications Albuterol/Ipratropium (Duoneb 3 Mg/0.5 Mg (3 Ml) Ud) 3 ml INH RQ6 [facility] Last Admin: 05/08/17 13:37 Dose: Not Given Apixaban (Eliquis) 5 mg PO BID [facility] Last Admin: 05/08/17 17:50 Dose: 5 mg Famotidine (Pepcid) 20 mg PO DAILY [facility] Last Admin: 05/08/17 10:11 Dose: 20 mg Furosemide (Lasix) 40 mg PO DAILY [facility] Stop: 05/10/17 23:59 Last Admin: 05/08/17 10:10 Dose: 40 mg Vancomycin HCl 1 gm/ Sodium (Chloride) 250 mls @ 166.7 mls/hr IVPB Q24H [facility] Last Admin: 05/08/17 10:13 Dose: 166.7 mls/hr Diltiazem HCl 125 mg/ Sodium (Chloride) 125 mls @ 5 mls/hr IV .Q24H [facility]; 5 MG/ HR PRN Reason: Protocol Last Admin: 05/07/17 05:58 Dose: Not Given Piperacillin Sod/Tazobactam Sod (Zosyn 3.375 Gm Iv Premix) 3.375 gm in 50 mls @ 100 mls/hr IVPB Q6H [facility] Last Admin: 05/08/17 13:02 Dose: 100 mls/hr Propofol (Diprivan) 1,000 mg in 100 mls @ 3.9 mls/hr IV .Q24H PRN; Protocol; 5 MCG/KG/MIN PRN Reason: TITRATE PER MD ORDER Last Titration: 05/08/17 15:00 Dose: 20 mcg/kg/min, 15.6 mls/hr Sodium Chloride (Sodium Chloride 0.9%) 1,000 mls @ 75 mls/hr IV .[id number] [facility] Last Admin: 05/08/17 10:16 Dose: 75 mls/hr Lorazepam (Ativan) 1 mg IVP ONCE PRN Methylprednisolone (Solu-Medrol) 20 mg IVP BID [facility] Last Admin: 05/08/17 17:49 Dose: 20 mg Morphine Sulfate (Morphine) 2 mg SC Q4 PRN PRN Reason: Pain, moderate (4-7) Last Admin: 05/06/17 05:20 Dose: 2 mg Ondansetron HCl (Zofran Inj) 4 mg IVP Q4 PRN PRN Reason: Nausea/Vomiting - Labs Labs: 05/08/17 06:47 05/08/17 06:47 PT 12.4 SECONDS (9.7-12.2) H 05/05/17 06:40 INR 1.1 05/05/17 06:40 APTT 27 SECONDS (21-34) 05/04/17 06:35 Attending/Attestation - Attestation I have personally seen and examined this patient.: Yes I have fully participated in the care of the patient.: Yes I have reviewed all pertinent clinical information, including history, physical exam and plan: Yes Notes (Text): 05/08/17 17:56 Pt was seen and examined at bedside Agree with above note and assessment
[2017-05-08] MEDS: Piperacill/Tazo 3.375gm in Dex 3.375 GM/50 ML BAG IVPB SCH ×4 (01:30→18:13)
[2017-05-08] MEDS: Sodium Chloride 0.9% 1,000 ML IV SCH ×3 (03:25→23:24)
[2017-05-08 04:55] LABS: CARDIOLIPIN AB (IGA) <11 APL (<=11)
[2017-05-08 05:00] LABS: ABG MECHANICAL RATE 14; ARTERIAL BLOOD GAS MODE PRVC; ARTERIAL BLOOD HGB O2 SAT 97.4 % (95.0-98.0); ATERIAL BLOOD GAS PEEP 5; DRAW SITE RB; HHB 0.4 % (0.0-5.0); METHEMOGLOBIN 1.2 % (0.0-3.0)
[2017-05-08 06:01] LABS: B2 GLYCOPROTEIN I AB(IGA) <9 SAU (<=20); B2 GLYCOPROTEIN I AB(IGG) <9 SGU (<=20); B2 GLYCOPROTEIN I AB(IGM) <9 SMU (<=20)
[2017-05-08 06:55] LABS: BASO % 0.1 % (0.0-2.0); EOS % 0.1 % (0.0-4.0); HEMATOCRIT 26.4 % (34.0-47.0); LYMPH # 1.8 K/uL (1.0-4.3); MEAN CELL VOLUME 81.6 fL (81.0-99.0); MEAN CORPUSCULAR HEMOGLOBIN 25.4 pg (27.0-31.0); MEAN CORPUSCULAR HGB CONC 31.2 g/dL (33.0-37.0); MEAN PLATELET VOLUME 8.1 fL (7.2-11.7); MONO % 5.6 % (0.0-10.0); NRBC % 0.3 % (0.0-2.0); RED CELL DISTRIBUTION WIDTH 18.6 % (11.5-14.5); WHITE BLOOD COUNT 18.4 K/uL (4.8-10.8)
[2017-05-08 07:15] LABS: ALB/GLOB RATIO 0.7 (1.0-2.1); ALKALINE PHOSPHATASE 60 U/L (38-126); ALT/SGPT 21 U/L (9-52); AST/SGOT 14 U/L (14-36); BILIRUBIN,TOTAL 0.4 mg/dL (0.2-1.3); BLOOD UREA NITROGEN 14 mg/dL (7-17); CALCIUM 8.6 mg/dl (8.6-10.4); CARBON DIOXIDE 25 mmol/L (22-30); CHLORIDE 105 mmol/L (98-107); GFR AFRICAN-AMERICAN > 60; GLUCOSE,RANDOM 109 mg/dL (65-105); MAGNESIUM 1.4 mg/dL (1.6-2.3); PHOSPHOROUS 4.2 mg/dL (2.5-4.5); POTASSIUM 3.6 mmol/L (3.6-5.2); SODIUM 141 mmol/L (132-148)
[2017-05-08] MEDS ORDERED: Potassium Chloride 20 mEq/15 ml LIQ UD PO ONE (09:45)
--- NOTE | 2017-05-08 09:53 | RAD ---
HISTORY: INTUBATED COMPARISON: Chest x-ray performed 05/07/17 TECHNIQUE: Chest, one view. FINDINGS: Endotracheal tube terminates approximately 3.3 cm above the beth. Right IJ approach central venous catheter terminates at the SVC. Nasogastric tube extends expected location of the stomach. Examination limited by habitus. LUNGS: Left basilar atelectasis/ infiltrate. Mild pulmonary venous congestion. Please note that chest x-ray has limited sensitivity for the detection of pulmonary masses. PLEURA: Small left pleural effusion. No definite pneumothorax . CARDIOVASCULAR: Cardiomegaly. OSSEOUS STRUCTURES: Degenerative changes. VISUALIZED UPPER ABDOMEN: Unremarkable. OTHER FINDINGS: None. IMPRESSION: Endotracheal tube terminates approximately 3.3 cm above the beth. Right IJ approach central venous catheter terminates at the SVC. Nasogastric tube extends expected location of the stomach. Left basilar atelectasis/ infiltrate and small left pleural effusion. Mild pulmonary venous congestion. Cardiomegaly.
[2017-05-08] MEDS: Magnesium Sulfate 1 gm in D5W 1 GM/100 ML BAG IVPB SCH ×2 (10:11→10:35)
[2017-05-08] MEDS: MethylPREDNISolone 40 mg Vial IVP SCH ×2 (10:11→17:49)
--- NOTE | 2017-05-08 13:42 | CP.CCUPN ---
CCU Subjective - Physician Review Events Since Last Encounter (Free Text): 05/08/17 13:39 Patient seen and examined in the intensive care unit. Case discussed with house staff in the morning. Remains intubated on ventilatory support FiO2 reduced to 40% Awake and responsive Getting plasmapheresis Afebrile Tolerating feeding CCU Objective - Vital Signs / Intake & Output Vital Signs (Last 4 hours): Vital Signs Pulse Resp BP 05/08/17 11:00 92 H 20 05/08/17 10:32 90 19 152/82 H 05/08/17 10:10 152/77 H 05/08/17 10:00 83 17 Intake and Output (Last 8hrs): Intake & Output 05/07/17 05/08/17 05/08/17 22:59 06:59 14:59 Intake Total 1448.0 1448.0 1424.0 Output Total 1220 890 880 Balance 228.0 558.0 544.0 Intake: IV 100 200 Intake, IV Amount 1348.0 1248.0 1224.0 Right Distal Port 1200 1100 950 Internal Jugular Right Medial Port 148.0 148.0 74.0 Internal Jugular prox. port internal 200 jugular Tube Feeding 200 Output: Urine 1220 590 880 Urethral (Colmenares) 1220 590 880 Stool 300 Other: # Bowel Movements 1 - Physical Exam Head: Positive for: Atraumatic, Normocephalic Extroacular Muscles: Positive for: EOMI Mouth: Positive for: Moist Mucous Membranes Respiratory/Chest: Positive for: Rales, Other (intubated). Negative for: Clear to Auscultation, Accessory Muscle Use, Wheezes, Decreased Breath Sounds, Rhonchi , Tachypneic Cardiovascular: Positive for: Normal S1, S2, Tachycardic Abdomen: Positive for: Other (Obese). Negative for: Tenderness, Normal Bowel Sounds (hypoactive) Rectal: Positive for: Other (Sacral wound) Upper Extremity: Positive for: Normal Inspection. Negative for: Edema Lower Extremity: Positive for: Edema, Swelling Skin: Positive for: Warm, Dry, Normal Color, Other (sacral wound- copious drainage) Psychiatric: Positive for: Alert. Negative for: Oriented x 3 - Medications Active Medications: Active Medications Generic Name Dose Route Start Last Admin Trade Name Freq PRN Reason Stop Dose Admin Albuterol/Ipratropium 3 ml 05/03/17 02:00 05/08/17 13:37 Duoneb 3 Mg/0.5 Mg (3 Ml) Ud INH Not Given RQ6 RIK Apixaban 5 mg 05/05/17 16:00 05/08/17 10:13 Eliquis PO 5 mg BID RIK Administration Famotidine 20 mg 05/07/17 10:00 05/08/17 10:11 Pepcid PO 20 mg DAILY RIK Administration Furosemide 40 mg 05/06/17 10:00 05/08/17 10:10 Lasix PO 05/10/17 23:59 40 mg DAILY RIK Administration Vancomycin HCl 1 gm/ Sodium 250 mls @ 166.7 mls/hr 05/03/17 09:00 05/08/17 10 :13 Chloride IVPB 166.7 mls/hr Q24H RIK Administration Diltiazem HCl 125 mg/ Sodium 125 mls @ 5 mls/hr 05/05/17 05:45 05/07/17 05:58 Chloride IV Not Given .Q24H RIK Protocol 5 MG/HR Piperacillin Sod/Tazobactam Sod 3.375 gm in 50 mls @ 100 mls/hr 05/05/17 19: 00 05/08/17 13:02 Zosyn 3.375 Gm Iv Premix IVPB 100 mls/hr Q6H RIK Administration Propofol 1,000 mg in 100 mls @ 3.9 mls/hr 05/06/17 16:23 05/08/17 07:28 Diprivan IV 23.71 mcg/kg/min .Q24H PRN 18.494 mls/hr TITRATE PER MD ORDER Administration Protocol 5 MCG/KG/MIN Sodium Chloride 1,000 mls @ 75 mls/hr 05/08/17 10:00 05/08/17 10:16 Sodium Chloride 0.9% IV 75 mls/hr .[id number] RIK Administration Lorazepam 1 mg 05/04/17 09:00 Ativan IVP ONCE PRN Methylprednisolone 20 mg 05/03/17 08:25 05/08/17 10:11 Solu-Medrol IVP 20 mg BID RIK Administration Morphine Sulfate 2 mg 05/04/17 12:37 05/06/17 05:20 Morphine SC 2 mg Q4 PRN Administration Pain, moderate (4-7) Ondansetron HCl 4 mg 05/04/17 09:41 Zofran Inj IVP Q4 PRN Nausea/Vomiting - Patient Studies Lab Studies: Lab Studies 05/08/17 05/08/17 05/08/17 Range/Units 11:19 06:47 06:47 WBC 18.4 H (4.8-10.8) K/uL RBC 3.24 L (3.80-5.20) Mil/uL Hgb 8.2 L (11.0-16.0) g/dL Hct 26.4 L (34.0-47.0) % MCV 81.6 (81.0-99.0) fL MCH 25.4 L (27.0-31.0) pg MCHC 31.2 L (33.0-37.0) g/dL RDW 18.6 H (11.5-14.5) % Plt Count 365 (130-400) K/uL MPV 8.1 (7.2-11.7) fL Neut % (Auto) 84.2 H (50.0-75.0) % Lymph % (Auto) 10.0 L (20.0-40.0) % [place] % (Auto) 5.6 (0.0-10.0) % Eos % (Auto) 0.1 (0.0-4.0) % Baso % (Auto) 0.1 (0.0-2.0) % Neut # 15.5 H (1.8-7.0) K/uL Lymph # 1.8 (1.0-4.3) K/uL [place] # 1.0 H (0.0-0.8) K/uL Eos # 0.0 (0.0-0.7) K/uL Baso # 0.0 (0.0-0.2) K/uL Puncture Site pCO2 (35-45) mm/Hg pO2 (80-100) mm/Hg HCO3 (21-28) mmol/L ABG pH (7.35-7.45) ABG Total CO2 (22-28) mmol/L ABG O2 Saturation (95-98) % ABG Base Excess (-2.0-3.0) mmol/L ABG Hemoglobin (11.7-17.4) g/dL ABG Carboxyhemoglobin (0.5-1.5) % POC ABG HHb (Measured) (0.0-5.0) % ABG Methemoglobin (0.0-3.0) % Ming Test A-a O2 Difference mm/Hg Respiratory Index Hgb O2 Saturation (95.0-98.0) % Vent Mode Mechanical Rate FiO2 % Tidal Volume PEEP Sodium 141 (132-148) mmol/L Potassium 3.6 (3.6-5.2) mmol/L Chloride 105 (98-107) mmol/L Carbon Dioxide 25 (22-30) mmol/L Anion Gap 15 (10-20) BUN 14 (7-17) mg/dL Creatinine 0.7 (0.7-1.2) MG/DL Est GFR ( Amer) > 60 Est GFR (Non-Af Amer) > 60 POC Glucose (mg/dL) 131 H (65-110) mg/dL Random Glucose 109 H (65-105) mg/dL Calcium 8.6 (8.6-10.4) mg/dl Phosphorus 4.2 (2.5-4.5) mg/dL Magnesium 1.4 L (1.6-2.3) mg/dL Total Bilirubin 0.4 (0.2-1.3) mg/dL AST 14 (14-36) U/L ALT 21 (9-52) U/L Alkaline Phosphatase 60 (38-126) U/L Total Protein 6.0 L (6.3-8.3) g/dL Albumin 2.5 L (3.5-5.0) g/dL Globulin 3.5 (2.2-3.9) gm/dL Albumin/Globulin Ratio 0.7 L (1.0-2.1) Serum Immunofixation (Not Detected) Urine Immunofixation (Not Detected) SS-A Antibody (<1.0) AI SS-B Ab Interp (Negative) SS-B Antibody (<1.0) AI Double Strand DNA Ab IU/mL Wspn-8-Ahlyzuvbyovn Ab (<=20) DOMITILA Beta-2 GPI IgG Ab (<=20) SGU Beta-2 GPI IgM Ab (<=20) [facility] Anti-Cardiolipin IgG Ab (<=14) GPL Anti-Cardiolipin IgA Ab (<=11) APL Anti-Cardiolipin IgM Ab (<=12) MPL West Nile Virus IgG Ab West Nile Virus IgM Ab 05/08/17 05/08/17 05/07/17 Range/Units 06:01 04:40 23:44 WBC (4.8-10.8) K/uL RBC (3.80-5.20) Mil/uL Hgb (11.0-16.0) g/dL Hct (34.0-47.0) % MCV (81.0-99.0) fL MCH (27.0-31.0) pg MCHC (33.0-37.0) g/dL RDW (11.5-14.5) % Plt Count (130-400) K/uL MPV (7.2-11.7) fL Neut % (Auto) (50.0-75.0) % Lymph % (Auto) (20.0-40.0) % [place] % (Auto) (0.0-10.0) % Eos % (Auto) (0.0-4.0) % Baso % (Auto) (0.0-2.0) % Neut # (1.8-7.0) K/uL Lymph # (1.0-4.3) K/uL [place] # (0.0-0.8) K/uL Eos # (0.0-0.7) K/uL Baso # (0.0-0.2) K/uL Puncture Site Rb pCO2 36 (35-45) mm/Hg pO2 180 H (80-100) mm/Hg HCO3 25.5 (21-28) mmol/L ABG pH 7.44 (7.35-7.45) ABG Total CO2 25.6 (22-28) mmol/L ABG O2 Saturation 99.6 H (95-98) % ABG Base Excess 0.8 (-2.0-3.0) mmol/L ABG Hemoglobin 19.8 H (11.7-17.4) g/dL ABG Carboxyhemoglobin 1.0 (0.5-1.5) % POC ABG HHb (Measured) 0.4 (0.0-5.0) % ABG Methemoglobin 1.2 (0.0-3.0) % Ming Test Na A-a O2 Difference 60.0 mm/Hg Respiratory Index 0.3 Hgb O2 Saturation 97.4 (95.0-98.0) % Vent Mode Prvc Mechanical Rate 14 FiO2 40.0 % Tidal Volume 500 PEEP 5 Sodium (132-148) mmol/L Potassium (3.6-5.2) mmol/L Chloride (98-107) mmol/L Carbon Dioxide (22-30) mmol/L Anion Gap (10-20) BUN (7-17) mg/dL Creatinine (0.7-1.2) MG/DL Est GFR ( Amer) Est GFR (Non-Af Amer) POC Glucose (mg/dL) 142 H 136 H (65-110) mg/dL Random Glucose (65-105) mg/dL Calcium (8.6-10.4) mg/dl Phosphorus (2.5-4.5) mg/dL Magnesium (1.6-2.3) mg/dL Total Bilirubin (0.2-1.3) mg/dL AST (14-36) U/L ALT (9-52) U/L Alkaline Phosphatase (38-126) U/L Total Protein (6.3-8.3) g/dL Albumin (3.5-5.0) g/dL Globulin (2.2-3.9) gm/dL Albumin/Globulin Ratio (1.0-2.1) Serum Immunofixation (Not Detected) Urine Immunofixation (Not Detected) SS-A Antibody (<1.0) AI SS-B Ab Interp (Negative) SS-B Antibody (<1.0) AI Double Strand DNA Ab IU/mL Zour-5-Pfmkpjwpeqgn Ab (<=20) DOMITILA Beta-2 GPI IgG Ab (<=20) SGU Beta-2 GPI IgM Ab (<=20) [facility] Anti-Cardiolipin IgG Ab (<=14) GPL Anti-Cardiolipin IgA Ab (<=11) APL Anti-Cardiolipin IgM Ab (<=12) MPL West Nile Virus IgG Ab West Nile Virus IgM Ab 05/07/17 05/06/17 05/06/17 Range/Units 17:42 10:27 10:27 WBC (4.8-10.8) K/uL RBC (3.80-5.20) Mil/uL Hgb (11.0-16.0) g/dL Hct (34.0-47.0) % MCV (81.0-99.0) fL MCH (27.0-31.0) pg MCHC (33.0-37.0) g/dL RDW (11.5-14.5) % Plt Count (130-400) K/uL MPV (7.2-11.7) fL Neut % (Auto) (50.0-75.0) % Lymph % (Auto) (20.0-40.0) % [place] % (Auto) (0.0-10.0) % Eos % (Auto) (0.0-4.0) % Baso % (Auto) (0.0-2.0) % Neut # (1.8-7.0) K/uL Lymph # (1.0-4.3) K/uL [place] # (0.0-0.8) K/uL Eos # (0.0-0.7) K/uL Baso # (0.0-0.2) K/uL Puncture Site pCO2 (35-45) mm/Hg pO2 (80-100) mm/Hg HCO3 (21-28) mmol/L ABG pH (7.35-7.45) ABG Total CO2 (22-28) mmol/L ABG O2 Saturation (95-98) % ABG Base Excess (-2.0-3.0) mmol/L ABG Hemoglobin (11.7-17.4) g/dL ABG Carboxyhemoglobin (0.5-1.5) % POC ABG HHb (Measured) (0.0-5.0) % ABG Methemoglobin (0.0-3.0) % Ming Test A-a O2 Difference mm/Hg Respiratory Index Hgb O2 Saturation (95.0-98.0) % Vent Mode Mechanical Rate FiO2 % Tidal Volume PEEP Sodium (132-148) mmol/L Potassium (3.6-5.2) mmol/L Chloride (98-107) mmol/L Carbon Dioxide (22-30) mmol/L Anion Gap (10-20) BUN (7-17) mg/dL Creatinine (0.7-1.2) MG/DL Est GFR ( Amer) Est GFR (Non-Af Amer) POC Glucose (mg/dL) 137 H (65-110) mg/dL Random Glucose (65-105) mg/dL Calcium (8.6-10.4) mg/dl Phosphorus (2.5-4.5) mg/dL Magnesium (1.6-2.3) mg/dL Total Bilirubin (0.2-1.3) mg/dL AST (14-36) U/L ALT (9-52) U/L Alkaline Phosphatase (38-126) U/L Total Protein (6.3-8.3) g/dL Albumin (3.5-5.0) g/dL Globulin (2.2-3.9) gm/dL Albumin/Globulin Ratio (1.0-2.1) Serum Immunofixation Detected H (Not Detected) Urine Immunofixation (Not Detected) SS-A Antibody <1.0 (<1.0) AI SS-B Ab Interp Negative (Negative) SS-B Antibody <1.0 (<1.0) AI Double Strand DNA Ab <1 IU/mL Bvfs-4-Pcokxogezotq Ab (<=20) DOMITILA Beta-2 GPI IgG Ab (<=20) SGU Beta-2 GPI IgM Ab (<=20) SMU Anti-Cardiolipin IgG Ab (<=14) GPL Anti-Cardiolipin IgA Ab (<=11) APL Anti-Cardiolipin IgM Ab (<=12) MPL West Nile Virus IgG Ab West Nile Virus IgM Ab 05/04/17 05/04/17 05/04/17 Range/Units 20:53 11:27 08:29 WBC (4.8-10.8) K/uL RBC (3.80-5.20) Mil/uL Hgb (11.0-16.0) g/dL Hct (34.0-47.0) % MCV (81.0-99.0) fL MCH (27.0-31.0) pg MCHC (33.0-37.0) g/dL RDW (11.5-14.5) % Plt Count (130-400) K/uL MPV (7.2-11.7) fL Neut % (Auto) (50.0-75.0) % Lymph % (Auto) (20.0-40.0) % [place] % (Auto) (0.0-10.0) % Eos % (Auto) (0.0-4.0) % Baso % (Auto) (0.0-2.0) % Neut # (1.8-7.0) K/uL Lymph # (1.0-4.3) K/uL [place] # (0.0-0.8) K/uL Eos # (0.0-0.7) K/uL Baso # (0.0-0.2) K/uL Puncture Site pCO2 (35-45) mm/Hg pO2 (80-100) mm/Hg HCO3 (21-28) mmol/L ABG pH (7.35-7.45) ABG Total CO2 (22-28) mmol/L ABG O2 Saturation (95-98) % ABG Base Excess (-2.0-3.0) mmol/L ABG Hemoglobin (11.7-17.4) g/dL ABG Carboxyhemoglobin (0.5-1.5) % POC ABG HHb (Measured) (0.0-5.0) % ABG Methemoglobin (0.0-3.0) % Ming Test A-a O2 Difference mm/Hg Respiratory Index Hgb O2 Saturation (95.0-98.0) % Vent Mode Mechanical Rate FiO2 % Tidal Volume PEEP Sodium (132-148) mmol/L Potassium (3.6-5.2) mmol/L Chloride (98-107) mmol/L Carbon Dioxide (22-30) mmol/L Anion Gap (10-20) BUN (7-17) mg/dL Creatinine (0.7-1.2) MG/DL Est GFR ( Amer) Est GFR (Non-Af Amer) POC Glucose (mg/dL) (65-110) mg/dL Random Glucose (65-105) mg/dL Calcium (8.6-10.4) mg/dl Phosphorus (2.5-4.5) mg/dL Magnesium (1.6-2.3) mg/dL Total Bilirubin (0.2-1.3) mg/dL AST (14-36) U/L ALT (9-52) U/L Alkaline Phosphatase (38-126) U/L Total Protein (6.3-8.3) g/dL Albumin (3.5-5.0) g/dL Globulin (2.2-3.9) gm/dL Albumin/Globulin Ratio (1.0-2.1) Serum Immunofixation (Not Detected) Urine Immunofixation Detected H (Not Detected) SS-A Antibody (<1.0) AI SS-B Ab Interp (Negative) SS-B Antibody (<1.0) AI Double Strand DNA Ab IU/mL Zlyx-3-Ujsqrmrzybrn Ab <9 (<=20) DOMITILA Beta-2 GPI IgG Ab <9 (<=20) SGU Beta-2 GPI IgM Ab <9 (<=20) [facility] Anti-Cardiolipin IgG Ab <14 (<=14) GPL Anti-Cardiolipin IgA Ab <11 (<=11) APL Anti-Cardiolipin IgM Ab <12 (<=12) MPL West Nile Virus IgG Ab 0.03 West Nile Virus IgM Ab 0.02 Laboratory Results - last 24 hr 05/04/17 05/04/17 05/04/17 08:29 11:27 20:53 WBC RBC Hgb Hct MCV MCH MCHC RDW Plt Count MPV Neut % (Auto) Lymph % (Auto) [place] % (Auto) Eos % (Auto) Baso % (Auto) Neut # Lymph # [place] # Eos # Baso # Puncture Site pCO2 pO2 HCO3 ABG pH ABG Total CO2 ABG O2 Saturation ABG Base Excess ABG Hemoglobin ABG Carboxyhemoglobin POC ABG HHb (Measured) ABG Methemoglobin Ming Test A-a O2 Difference Respiratory Index Hgb O2 Saturation Vent Mode Mechanical Rate FiO2 Tidal Volume PEEP Sodium Potassium Chloride Carbon Dioxide Anion Gap BUN Creatinine Est GFR ( Amer) Est GFR (Non-Af Amer) POC Glucose (mg/dL) Random Glucose Calcium Phosphorus Magnesium Total Bilirubin AST ALT Alkaline Phosphatase Total Protein Albumin Globulin Albumin/Globulin Ratio Serum Immunofixation Urine Immunofixation Detected H SS-A Antibody SS-B Ab Interp SS-B Antibody Double Strand DNA Ab Pwlj-8-Xmxyrgptifap Ab <9 Beta-2 GPI IgG Ab <9 Beta-2 GPI IgM Ab <9 Anti-Cardiolipin IgG Ab <14 Anti-Cardiolipin IgA Ab <11 Anti-Cardiolipin IgM Ab <12 West Nile Virus IgG Ab 0.03 West Nile Virus IgM Ab 0.02 05/06/17 05/06/17 05/07/17 10:27 10:27 17:42 WBC RBC Hgb Hct MCV MCH MCHC RDW Plt Count MPV Neut % (Auto) Lymph % (Auto) [place] % (Auto) Eos % (Auto) Baso % (Auto) Neut # Lymph # [place] # Eos # Baso # Puncture Site pCO2 pO2 HCO3 ABG pH ABG Total CO2 ABG O2 Saturation ABG Base Excess ABG Hemoglobin ABG Carboxyhemoglobin POC ABG HHb (Measured) ABG Methemoglobin Ming Test A-a O2 Difference Respiratory Index Hgb O2 Saturation Vent Mode Mechanical Rate FiO2 Tidal Volume PEEP Sodium Potassium Chloride Carbon Dioxide Anion Gap BUN Creatinine Est GFR ( Amer) Est GFR (Non-Af Amer) POC Glucose (mg/dL) 137 H Random Glucose Calcium Phosphorus Magnesium Total Bilirubin AST ALT Alkaline Phosphatase Total Protein Albumin Globulin Albumin/Globulin Ratio Serum Immunofixation Detected H Urine Immunofixation SS-A Antibody <1.0 SS-B Ab Interp Negative SS-B Antibody <1.0 Double Strand DNA Ab <1 Gmml-8-Deputhgisnry Ab Beta-2 GPI IgG Ab Beta-2 GPI IgM Ab Anti-Cardiolipin IgG Ab Anti-Cardiolipin IgA Ab Anti-Cardiolipin IgM Ab West Nile Virus IgG Ab West Nile Virus IgM Ab 05/07/17 05/08/17 05/08/17 23:44 04:40 06:01 WBC RBC Hgb Hct MCV MCH MCHC RDW Plt Count MPV Neut % (Auto) Lymph % (Auto) [place] % (Auto) Eos % (Auto) Baso % (Auto) Neut # Lymph # [place] # Eos # Baso # Puncture Site Rb pCO2 36 pO2 180 H HCO3 25.5 ABG pH 7.44 ABG Total CO2 25.6 ABG O2 Saturation 99.6 H ABG Base Excess 0.8 ABG Hemoglobin 19.8 H ABG Carboxyhemoglobin 1.0 POC ABG HHb (Measured) 0.4 ABG Methemoglobin 1.2 Ming Test Na A-a O2 Difference 60.0 Respiratory Index 0.3 Hgb O2 Saturation 97.4 Vent Mode Prvc Mechanical Rate 14 FiO2 40.0 Tidal Volume 500 PEEP 5 Sodium Potassium Chloride Carbon Dioxide Anion Gap BUN Creatinine Est GFR ( Amer) Est GFR (Non-Af Amer) POC Glucose (mg/dL) 136 H 142 H Random Glucose Calcium Phosphorus Magnesium Total Bilirubin AST ALT Alkaline Phosphatase Total Protein Albumin Globulin Albumin/Globulin Ratio Serum Immunofixation Urine Immunofixation SS-A Antibody SS-B Ab Interp SS-B Antibody Double Strand DNA Ab Bzue-7-Mllbyxezgtov Ab Beta-2 GPI IgG Ab Beta-2 GPI IgM Ab Anti-Cardiolipin IgG Ab Anti-Cardiolipin IgA Ab Anti-Cardiolipin IgM Ab West Nile Virus IgG Ab West Nile Virus IgM Ab 05/08/17 05/08/17 05/08/17 06:47 06:47 11:19 WBC 18.4 H RBC 3.24 L Hgb 8.2 L Hct 26.4 L MCV 81.6 MCH 25.4 L MCHC 31.2 L RDW 18.6 H Plt Count 365 MPV 8.1 Neut % (Auto) 84.2 H Lymph % (Auto) 10.0 L [place] % (Auto) 5.6 Eos % (Auto) 0.1 Baso % (Auto) 0.1 Neut # 15.5 H Lymph # 1.8 [place] # 1.0 H Eos # 0.0 Baso # 0.0 Puncture Site pCO2 pO2 HCO3 ABG pH ABG Total CO2 ABG O2 Saturation ABG Base Excess ABG Hemoglobin ABG Carboxyhemoglobin POC ABG HHb (Measured) ABG Methemoglobin Ming Test A-a O2 Difference Respiratory Index Hgb O2 Saturation Vent Mode Mechanical Rate FiO2 Tidal Volume PEEP Sodium 141 Potassium 3.6 Chloride 105 Carbon Dioxide 25 Anion Gap 15 BUN 14 Creatinine 0.7 Est GFR ( Amer) > 60 Est GFR (Non-Af Amer) > 60 POC Glucose (mg/dL) 131 H Random Glucose 109 H Calcium 8.6 Phosphorus 4.2 Magnesium 1.4 L Total Bilirubin 0.4 AST 14 ALT 21 Alkaline Phosphatase 60 Total Protein 6.0 L Albumin 2.5 L Globulin 3.5 Albumin/Globulin Ratio 0.7 L Serum Immunofixation Urine Immunofixation SS-A Antibody SS-B Ab Interp SS-B Antibody Double Strand DNA Ab Ihrt-8-Slqlgibyolde Ab Beta-2 GPI IgG Ab Beta-2 GPI IgM Ab Anti-Cardiolipin IgG Ab Anti-Cardiolipin IgA Ab Anti-Cardiolipin IgM Ab West Nile Virus IgG Ab West Nile Virus IgM Ab Fingerstick Blood Sugar Results: 142 Review of Systems - Review of Systems Systems not reviewed;Unavailable: Intubated Critical Care Progress Note - Ventilator Checklist Head of Bed 30 Degrees: Yes Daily Sedation Vacation: Yes Daily Spontaneous Breathing Trial: Yes PUD Prophalyxis: Yes DVT Prophylaxis: Yes - Vent Settings MODE:: PRVC - Nutrition Nutrition: Nutrition Category Date Time Status Heart Healthy Diet [DIET] Diets 05/04/17 Lunch Active Assessment/Plan (1) Sepsis Current Visit: Yes Status: Acute Comment: Continue antibiotics Status post wound VAC placement 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 (2) Altered mental status Current Visit: No Status: Acute (3) Hypotension Current Visit: Yes Status: Acute (4) COPD (chronic obstructive pulmonary disease) Current Visit: No Status: Chronic Comment: Continue nebulizer treatments and steroids (5) OPHELIA (obstructive sleep apnea) Current Visit: No Status: Chronic Comment: obstructive sleep apnea versus obesity hypoventilation syndrome
--- NOTE | 2017-05-08 14:49 | CP.PCM.PN ---
Subjective - Date & Time of Evaluation Date of Evaluation: 05/08/17 Time of Evaluation: 12:40 - Subjective Subjective: clinically same Objective - Vital Signs/Intake and Output Vital Signs (last 24 hours): Temp Pulse Resp BP Pulse Ox 98.8 F 76 17 141/85 100 05/08/17 13:32 05/08/17 14:34 05/08/17 14:34 05/08/17 14:34 05/08/17 14:34 Intake and Output: 05/08/17 05/08/17 06:59 18:59 Intake Total 2122.0 1678.0 Output Total 1110 1480 Balance 1012.0 198.0 - Medications Medications: Current Medications Albuterol/Ipratropium (Duoneb 3 Mg/0.5 Mg (3 Ml) Ud) 3 ml INH RQ6 RIK Last Admin: 05/08/17 13:37 Dose: Not Given Apixaban (Eliquis) 5 mg PO BID RIK Last Admin: 05/08/17 10:13 Dose: 5 mg Famotidine (Pepcid) 20 mg PO DAILY RIK Last Admin: 05/08/17 10:11 Dose: 20 mg Furosemide (Lasix) 40 mg PO DAILY RIK Stop: 05/10/17 23:59 Last Admin: 05/08/17 10:10 Dose: 40 mg Vancomycin HCl 1 gm/ Sodium (Chloride) 250 mls @ 166.7 mls/hr IVPB Q24H RIK Last Admin: 05/08/17 10:13 Dose: 166.7 mls/hr Diltiazem HCl 125 mg/ Sodium (Chloride) 125 mls @ 5 mls/hr IV .Q24H RIK; 5 MG/ HR PRN Reason: Protocol Last Admin: 05/07/17 05:58 Dose: Not Given Piperacillin Sod/Tazobactam Sod (Zosyn 3.375 Gm Iv Premix) 3.375 gm in 50 mls @ 100 mls/hr IVPB Q6H RIK Last Admin: 05/08/17 13:02 Dose: 100 mls/hr Propofol (Diprivan) 1,000 mg in 100 mls @ 3.9 mls/hr IV .Q24H PRN; Protocol; 5 MCG/KG/MIN PRN Reason: TITRATE PER MD ORDER Last Admin: 05/08/17 13:53 Dose: 23.71 mcg/kg/min, 18.494 mls/hr Sodium Chloride (Sodium Chloride 0.9%) 1,000 mls @ 75 mls/hr IV .[id number] [facility] Last Admin: 05/08/17 10:16 Dose: 75 mls/hr Lorazepam (Ativan) 1 mg IVP ONCE PRN Methylprednisolone (Solu-Medrol) 20 mg IVP BID [facility] Last Admin: 05/08/17 10:11 Dose: 20 mg Morphine Sulfate (Morphine) 2 mg SC Q4 PRN PRN Reason: Pain, moderate (4-7) Last Admin: 05/06/17 05:20 Dose: 2 mg Ondansetron HCl (Zofran Inj) 4 mg IVP Q4 PRN PRN Reason: Nausea/Vomiting - Labs Labs: 05/08/17 06:47 05/08/17 06:47 PT 12.4 SECONDS (9.7-12.2) H 05/05/17 06:40 INR 1.1 05/05/17 06:40 APTT 27 SECONDS (21-34) 05/04/17 06:35 - Constitutional Appears: Well - Head Exam Head Exam: ATRAUMATIC, NORMAL INSPECTION, NORMOCEPHALIC - Eye Exam Eye Exam: EOMI, Normal appearance, PERRL Pupil Exam: NORMAL ACCOMODATION, PERRL - ENT Exam ENT Exam: Mucous Membranes Moist, Normal Exam - Neck Exam Neck Exam: Full ROM, Normal Inspection. absent: Lymphadenopathy - Respiratory Exam Respiratory Exam: Decreased Breath Sounds - Cardiovascular Exam Cardiovascular Exam: REGULAR RHYTHM, +S1, +S2 - GI/Abdominal Exam GI & Abdominal Exam: Soft, Diminished Bowel Sounds - Rectal Exam Rectal Exam: Deferred
[2017-05-08 21:44] LABS: PHOSPHATIDYLSERINE AB IGA <20 U/mL (<20); PHOSPHATIDYLSERINE AB IGM <25 U/mL (<25)
--- NOTE | 2017-05-08 22:27 | CP.PCM.PN ---
Subjective - Date & Time of Evaluation Date of Evaluation: 05/08/17 Time of Evaluation: 18:00 - Subjective Subjective: Vented Tolerated plasma exchange well. Objective - Vital Signs/Intake and Output Vital Signs (last 24 hours): Temp Pulse Resp BP Pulse Ox 98.6 F 82 16 149/90 100 05/08/17 20:00 05/08/17 21:15 05/08/17 21:15 05/08/17 21:15 05/08/17 21:15 Intake and Output: 05/08/17 05/09/17 18:59 06:59 Intake Total 2494.1 125.9 Output Total 2235 450 Balance 259.1 -324.1 - Medications Medications: Current Medications Albuterol/Ipratropium (Duoneb 3 Mg/0.5 Mg (3 Ml) Ud) 3 ml INH RQ6 RIK Last Admin: 05/08/17 19:44 Dose: 3 ml Apixaban (Eliquis) 5 mg PO BID RIK Last Admin: 05/08/17 17:50 Dose: 5 mg Famotidine (Pepcid) 20 mg PO DAILY RIK Last Admin: 05/08/17 10:11 Dose: 20 mg Furosemide (Lasix) 40 mg PO DAILY RIK Stop: 05/10/17 23:59 Last Admin: 05/08/17 10:10 Dose: 40 mg Vancomycin HCl 1 gm/ Sodium (Chloride) 250 mls @ 166.7 mls/hr IVPB Q24H RIK Last Admin: 05/08/17 10:13 Dose: 166.7 mls/hr Diltiazem HCl 125 mg/ Sodium (Chloride) 125 mls @ 5 mls/hr IV .Q24H RIK; 5 MG/ HR PRN Reason: Protocol Last Admin: 05/07/17 05:58 Dose: Not Given Piperacillin Sod/Tazobactam Sod (Zosyn 3.375 Gm Iv Premix) 3.375 gm in 50 mls @ 100 mls/hr IVPB Q6H RIK Last Admin: 05/08/17 18:13 Dose: 100 mls/hr Propofol (Diprivan) 1,000 mg in 100 mls @ 3.9 mls/hr IV .Q24H PRN; Protocol; 5 MCG/KG/MIN PRN Reason: TITRATE PER MD ORDER Last Titration: 05/08/17 19:56 Dose: 16 mcg/kg/min, 12.48 mls/hr Sodium Chloride (Sodium Chloride 0.9%) 1,000 mls @ 75 mls/hr IV .[id number] [facility] Last Admin: 05/08/17 10:16 Dose: 75 mls/hr Lorazepam (Ativan) 1 mg IVP ONCE PRN Methylprednisolone (Solu-Medrol) 20 mg IVP BID [facility] Last Admin: 05/08/17 17:49 Dose: 20 mg Morphine Sulfate (Morphine) 2 mg SC Q4 PRN PRN Reason: Pain, moderate (4-7) Last Admin: 05/06/17 05:20 Dose: 2 mg Ondansetron HCl (Zofran Inj) 4 mg IVP Q4 PRN PRN Reason: Nausea/Vomiting - Labs Labs: 05/08/17 06:47 05/08/17 06:47 PT 12.4 SECONDS (9.7-12.2) H 05/05/17 06:40 INR 1.1 05/05/17 06:40 APTT 27 SECONDS (21-34) 05/04/17 06:35 - Head Exam Head Exam: ATRAUMATIC - Eye Exam Eye Exam: Normal appearance - ENT Exam ENT Exam: Mucous Membranes Dry - Respiratory Exam Respiratory Exam: NORMAL BREATHING PATTERN - Cardiovascular Exam Cardiovascular Exam: +S1, +S2 - GI/Abdominal Exam GI & Abdominal Exam: Normal Bowel Sounds - Extremities Exam Extremities Exam: Pedal Edema Assessment and Plan (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
[2017-05-09] MEDS: Albuterol-Ipratrop 3 mg / 0.5 (3 ml) UD INH SCH ×4 (01:10→20:08)
[2017-05-09] MEDS: Piperacill/Tazo 3.375gm in Dex 3.375 GM/50 ML BAG IVPB SCH ×5 (01:30→18:01)
[2017-05-09] MEDS: Sodium Chloride 0.9% 1,000 ML IV SCH ×3 (02:15→21:12)
[2017-05-09] MEDS: Propofol 10 mg/ml 1,000 MG/100 ML VIAL IV PRN ×2 (02:20→17:30)
--- NOTE | 2017-05-09 03:40 | OP ---
PROCEDURE DATE: 05/04/2017 PREOPERATIVE DIAGNOSES: 1. Sepsis. 2. Right gluteal abscess. 3. Stage IV sacral decubitus ulcer. 4. Chronic obstructive pulmonary disease. 5. Uncontrolled diabetes. 6. Morbid obesity. POSTOPERATIVE DIAGNOSES: 1. Sepsis. 2. Right gluteal abscess. 3. Stage IV sacral decubitus ulcer. 4. Chronic obstructive pulmonary disease. 5. Uncontrolled diabetes. 6. Morbid obesity. PROCEDURE DONE: 1. Incision and drainage of deep gluteal abscess. 2. Excisional debridement of the stage IV sacral decubitus ulcer. 3. Negative pressure wound VAC therapy of approximately 10 x 8 x 4 cm size. SURGEON: Dr. Almaraz. DROP HAMMER OPERATOR HELPER: Chris Connors, PGY-II resident. TYPE OF ANESTHESIA: Local anesthesia plus sedation. ESTIMATED BLOOD LOSS: Around 50 mL. DRAIN: The wound VAC was placed at the drain. COMPLICATIONS: None. INTRAOPERATIVE FINDINGS: The patient had right gluteal abscess with necrotic sacral decubitus ulcer. DESCRIPTION OF THE PROCEDURE: This 61-year-old female was diagnosed with stage IV sacral decubitus ulcer with gluteal abscess and the patient had a septic shock and after resolution of the sepsis, the patient was brought to the OR and placed in the left lateral position. The perineal area was prepped and draped and first incision was extended on the sacral decubitus ulcer and margin of the ulcer was excised all the way up to the sacrum and right gluteal abscess was completely unroofed after extending incision to another 8 cm and the cavity was grossly debrided and hemostasis was achieved and after debridement of the gluteal abscess cavity, the sacral decubitus ulcer debridement was also done and after proper hemostasis, the wound VAC was placed and wound VAC was placed to the suction. The size of the wound was approximately 10 x 8 x 4 cm size and the patient tolerated the procedure well. Count of the instrument was correct. There was no apparent complication. The patient was sent back to the ICU for further care. Juan Almaraz MD
[2017-05-09 05:56] LABS: ABG ALLEN TEST POS; ABG MECHANICAL RATE 14; ARTERIAL BLOOD GAS MODE PRVC; ARTERIAL BLOOD HGB O2 SAT 96.3 % (95.0-98.0); ATERIAL BLOOD GAS PEEP 5; CARBOXYHEMOGLOBIN 1.4 % (0.5-1.5); DRAW SITE RR; HHB 0.4 % (0.0-5.0); METHEMOGLOBIN 1.9 % (0.0-3.0)
[2017-05-09 06:59] LABS: BASO % 0.2 % (0.0-2.0); EOS # 0.3 K/uL (0.0-0.7); EOS % 1.5 % (0.0-4.0); HEMATOCRIT 26.7 % (34.0-47.0); LYMPH # 2.8 K/uL (1.0-4.3); LYMPH % 12.8 % (20.0-40.0); MEAN CELL VOLUME 82.8 fL (81.0-99.0); MEAN CORPUSCULAR HEMOGLOBIN 25.4 pg (27.0-31.0); MEAN CORPUSCULAR HGB CONC 30.7 g/dL (33.0-37.0); MEAN PLATELET VOLUME 8.3 fL (7.2-11.7); MONO # 1.1 K/uL (0.0-0.8); MONO % 5.2 % (0.0-10.0); NRBC % 0.1 % (0.0-2.0); RED CELL DISTRIBUTION WIDTH 19.2 % (11.5-14.5); RETIC% 2.7 % (0.5-1.5); WHITE BLOOD COUNT 21.7 K/uL (4.8-10.8)
[2017-05-09 07:12] LABS: ALB/GLOB RATIO 1.4 (1.0-2.1); ALKALINE PHOSPHATASE 30 U/L (38-126); ALT/SGPT 26 U/L (9-52); AST/SGOT 13 U/L (14-36); BILIRUBIN,TOTAL 0.6 mg/dL (0.2-1.3); BLOOD UREA NITROGEN 13 mg/dL (7-17); CALCIUM 8.5 mg/dl (8.6-10.4); CARBON DIOXIDE 25 mmol/L (22-30); CHLORIDE 106 mmol/L (98-107); GFR AFRICAN-AMERICAN > 60; GLUCOSE,RANDOM 76 mg/dL (65-105); MAGNESIUM 1.7 mg/dL (1.6-2.3); PHOSPHOROUS 3.9 mg/dL (2.5-4.5); POTASSIUM 3.2 mmol/L (3.6-5.2); SODIUM 143 mmol/L (132-148); TOTAL PROTEIN 5.1 g/dL (6.3-8.3)
--- NOTE | 2017-05-09 07:55 | CP.PCM.PN ---
Subjective - Date & Time of Evaluation Date of Evaluation: 05/09/17 Time of Evaluation: 07:30 - Subjective Subjective: clinically same Objective - Vital Signs/Intake and Output Vital Signs (last 24 hours): Temp Pulse Resp BP Pulse Ox 98.6 F 81 16 152/86 H 100 05/08/17 20:00 05/09/17 06:00 05/09/17 06:00 05/09/17 05:15 05/09/17 06:00 Intake and Output: 05/09/17 05/09/17 06:59 18:59 Intake Total 1634.7 Output Total 4230 Balance -2595.3 - Medications Medications: Current Medications Albuterol/Ipratropium (Duoneb 3 Mg/0.5 Mg (3 Ml) Ud) 3 ml INH RQ6 [facility] Last Admin: 05/09/17 01:10 Dose: 3 ml Apixaban (Eliquis) 5 mg PO BID [facility] Last Admin: 05/08/17 17:50 Dose: 5 mg Famotidine (Pepcid) 20 mg PO DAILY [facility] Last Admin: 05/08/17 10:11 Dose: 20 mg Furosemide (Lasix) 40 mg PO DAILY [facility] Stop: 05/10/17 23:59 Last Admin: 05/08/17 10:10 Dose: 40 mg Vancomycin HCl 1 gm/ Sodium (Chloride) 250 mls @ 166.7 mls/hr IVPB Q24H [facility] Last Admin: 05/08/17 10:13 Dose: 166.7 mls/hr Piperacillin Sod/Tazobactam Sod (Zosyn 3.375 Gm Iv Premix) 3.375 gm in 50 mls @ 100 mls/hr IVPB Q6H [facility] Last Admin: 05/09/17 06:44 Dose: 100 mls/hr Propofol (Diprivan) 1,000 mg in 100 mls @ 3.9 mls/hr IV .Q24H PRN; Protocol; 5 MCG/KG/MIN PRN Reason: TITRATE PER MD ORDER Last Titration: 05/09/17 06:42 Dose: 10 mcg/kg/min, 7.8 mls/hr Sodium Chloride (Sodium Chloride 0.9%) 1,000 mls @ 75 mls/hr IV .[id number] [facility] Last Admin: 05/09/17 02:15 Dose: 75 mls/hr Diltiazem HCl 125 mg/ Sodium (Chloride) 125 mls @ 5 mls/hr IV .Q24H PRN; 5 MG/ HR PRN Reason: Protocol Lorazepam (Ativan) 1 mg IVP ONCE PRN Methylprednisolone (Solu-Medrol) 20 mg IVP BID [facility] Last Admin: 05/08/17 17:49 Dose: 20 mg Morphine Sulfate (Morphine) 2 mg SC Q4 PRN PRN Reason: Pain, moderate (4-7) Last Admin: 05/06/17 05:20 Dose: 2 mg Ondansetron HCl (Zofran Inj) 4 mg IVP Q4 PRN PRN Reason: Nausea/Vomiting Potassium Chloride (Potassium Chloride Oral Soln) 40 meq PO Q12 [facility] Stop: 05/09/17 22:01 - Labs Labs: 05/09/17 06:48 05/09/17 06:48 PT 12.4 SECONDS (9.7-12.2) H 05/05/17 06:40 INR 1.1 05/05/17 06:40 APTT 27 SECONDS (21-34) 05/04/17 06:35 - Constitutional Appears: Well - Head Exam Head Exam: ATRAUMATIC, NORMAL INSPECTION, NORMOCEPHALIC - Eye Exam Eye Exam: EOMI, Normal appearance, PERRL Pupil Exam: NORMAL ACCOMODATION, PERRL - ENT Exam ENT Exam: Mucous Membranes Moist, Normal Exam - Neck Exam Neck Exam: Full ROM, Normal Inspection. absent: Lymphadenopathy - Respiratory Exam Respiratory Exam: Decreased Breath Sounds - Cardiovascular Exam Cardiovascular Exam: REGULAR RHYTHM, +S1, +S2 - GI/Abdominal Exam GI & Abdominal Exam: Soft, Diminished Bowel Sounds - Rectal Exam Rectal Exam: Deferred
[2017-05-09 08:17] LABS: FOLATE 6.7 ng/mL
--- NOTE | 2017-05-09 09:44 | RAD ---
HISTORY: follow up COMPARISON: Chest x-ray performed 05/08/17 TECHNIQUE: Chest, one view. FINDINGS: Examination limited by habitus. Right IJ approach central venous catheter extends the SVC. The endotracheal tube terminates approximately 3.2 cm above the beth. Nasogastric tube extends expected location of the proximal stomach, location of the side hole not visualized. LUNGS: Patchy opacity to rtzc-[id number]-[id number]-right lower lobes. Mild pulmonary venous congestion. PLEURA: Small left pleural effusion. No definite pneumothorax . CARDIOVASCULAR: Cardiomegaly. OSSEOUS STRUCTURES: Degenerative changes. VISUALIZED UPPER ABDOMEN: Unremarkable. OTHER FINDINGS: None. IMPRESSION: Patchy opacities ckpu-[id number]-ewpy-right lower lobes. Mild pulmonary venous congestion. Small left pleural effusion. Cardiomegaly. Right IJ approach central venous catheter extends the SVC. The endotracheal tube terminates approximately 3.2 cm above the beth. Nasogastric tube extends expected location of the proximal stomach, location of the side hole not visualized.
[2017-05-09] MEDS: Potassium Chloride 20 mEq/15 ml LIQ UD PO SCH ×2 (10:30→21:13)
[2017-05-09] MEDS: MethylPREDNISolone 40 mg Vial IVP SCH ×2 (10:40→18:00)
--- NOTE | 2017-05-09 11:29 | CP.PCM.PN ---
<Juan JHarrison - Last Filed: 05/09/17 11:27> Subjective - Date & Time of Evaluation Date of Evaluation: 05/09/17 Time of Evaluation: 11:27 - Subjective Subjective: Surgery Pt s&e. Pt intubated. Alert and awake. Follows verbal commands. Objective - Vital Signs/Intake and Output Vital Signs (last 24 hours): Temp Pulse Resp BP Pulse Ox 98.6 F 88 20 148/78 98 05/08/17 20:00 05/09/17 09:34 05/09/17 09:34 05/09/17 11:04 05/09/17 09:34 Intake and Output: 05/09/17 05/09/17 06:59 18:59 Intake Total 1634.7 261.3 Output Total 4230 320 Balance -2595.3 -58.7 - Medications Medications: Current Medications Albuterol/Ipratropium (Duoneb 3 Mg/0.5 Mg (3 Ml) Ud) 3 ml INH RQ6 [facility] Last Admin: 05/09/17 08:59 Dose: 3 ml Apixaban (Eliquis) 5 mg PO BID [facility] Last Admin: 05/09/17 11:13 Dose: 5 mg Famotidine (Pepcid) 20 mg PO DAILY [facility] Last Admin: 05/09/17 11:11 Dose: 20 mg Furosemide (Lasix) 40 mg IVP DAILY [facility] Last Admin: 05/09/17 11:04 Dose: 40 mg Vancomycin HCl 1 gm/ Sodium (Chloride) 250 mls @ 166.7 mls/hr IVPB Q24H [facility] Last Admin: 05/09/17 11:19 Dose: 166.7 mls/hr Piperacillin Sod/Tazobactam Sod (Zosyn 3.375 Gm Iv Premix) 3.375 gm in 50 mls @ 100 mls/hr IVPB Q6H [facility] Last Admin: 05/09/17 06:44 Dose: 100 mls/hr Propofol (Diprivan) 1,000 mg in 100 mls @ 3.9 mls/hr IV .Q24H PRN; Protocol; 5 MCG/KG/MIN PRN Reason: TITRATE PER MD ORDER Last Titration: 05/09/17 06:42 Dose: 10 mcg/kg/min, 7.8 mls/hr Sodium Chloride (Sodium Chloride 0.9%) 1,000 mls @ 75 mls/hr IV .[id number] [facility] Last Admin: 05/09/17 02:15 Dose: 75 mls/hr Diltiazem HCl 125 mg/ Sodium (Chloride) 125 mls @ 5 mls/hr IV .Q24H PRN; 5 MG/ HR PRN Reason: Protocol Lorazepam (Ativan) 1 mg IVP ONCE PRN Methylprednisolone (Solu-Medrol) 20 mg IVP BID [facility] Last Admin: 05/09/17 10:40 Dose: 20 mg Morphine Sulfate (Morphine) 2 mg SC Q4 PRN PRN Reason: Pain, moderate (4-7) Last Admin: 05/09/17 11:14 Dose: 2 mg Ondansetron HCl (Zofran Inj) 4 mg IVP Q4 PRN PRN Reason: Nausea/Vomiting Potassium Chloride (Potassium Chloride Oral Soln) 40 meq PO Q12 [facility] Stop: 05/09/17 22:01 Last Admin: 05/09/17 10:30 Dose: 40 meq - Labs Labs: 05/09/17 06:48 05/09/17 06:48 PT 12.4 SECONDS (9.7-12.2) H 05/05/17 06:40 INR 1.1 05/05/17 06:40 APTT 27 SECONDS (21-34) 05/04/17 06:35 - Constitutional Appears: In Acute Distress, Chronically Ill - Head Exam Head Exam: ATRAUMATIC, NORMAL INSPECTION, NORMOCEPHALIC - Eye Exam Eye Exam: EOMI, Normal appearance, PERRL Pupil Exam: NORMAL ACCOMODATION, PERRL - ENT Exam ENT Exam: Mucous Membranes Moist, Normal Exam Additional comments: Intubated - Neck Exam Neck Exam: Full ROM, Normal Inspection. absent: Lymphadenopathy - Respiratory Exam Respiratory Exam: Respiratory Distress - Cardiovascular Exam Cardiovascular Exam: REGULAR RHYTHM - GI/Abdominal Exam GI & Abdominal Exam: Soft, Normal Bowel Sounds. absent: Distended, Tenderness - Exam Exam: NORMAL INSPECTION - Extremities Exam Extremities Exam: Pedal Edema Additional comments: R groin Dialysis catheter in place. - Back Exam Additional comments: Wound vac in place. No leak - Neurological Exam Neurological Exam: Alert, Awake - Skin Skin Exam: Dry, Intact Assessment and Plan - Assessment and Plan (Free Text) Assessment: 61F s/p wound vac placement POD5, right femoral catheter placement POD 2 - change wound vac q3days: Next change on Wednesday - monitor catheter site Further recs discuss with Dr. Almaraz <Juan Almaraz - Last Filed: 05/09/17 14:25> Objective - Vital Signs/Intake and Output Vital Signs (last 24 hours): Temp Pulse Resp BP Pulse Ox 98.6 F 77 24 154/84 H 97 05/08/17 20:00 05/09/17 14:00 05/09/17 14:00 05/09/17 13:34 05/09/17 14:00 Intake and Output: 05/09/17 05/09/17 06:59 18:59 Intake Total 1634.7 760.1 Output Total 4230 660 Balance -2595.3 100.1 - Medications Medications: Current Medications Albuterol/Ipratropium (Duoneb 3 Mg/0.5 Mg (3 Ml) Ud) 3 ml INH RQ6 [facility] Last Admin: 05/09/17 14:21 Dose: 3 ml Apixaban (Eliquis) 5 mg PO BID [facility] Last Admin: 05/09/17 11:13 Dose: 5 mg Famotidine (Pepcid) 20 mg PO DAILY [facility] Last Admin: 05/09/17 11:11 Dose: 20 mg Furosemide (Lasix) 40 mg IVP DAILY [facility] Last Admin: 05/09/17 11:04 Dose: 40 mg Vancomycin HCl 1 gm/ Sodium (Chloride) 250 mls @ 166.7 mls/hr IVPB Q24H [facility] Last Admin: 05/09/17 11:19 Dose: 166.7 mls/hr Piperacillin Sod/Tazobactam Sod (Zosyn 3.375 Gm Iv Premix) 3.375 gm in 50 mls @ 100 mls/hr IVPB Q6H [facility] Last Admin: 05/09/17 06:44 Dose: 100 mls/hr Propofol (Diprivan) 1,000 mg in 100 mls @ 3.9 mls/hr IV .Q24H PRN; Protocol; 5 MCG/KG/MIN PRN Reason: TITRATE PER MD ORDER Last Titration: 05/09/17 06:42 Dose: 10 mcg/kg/min, 7.8 mls/hr Sodium Chloride (Sodium Chloride 0.9%) 1,000 mls @ 75 mls/hr IV .[id number] [facility] Last Admin: 05/09/17 02:15 Dose: 75 mls/hr Diltiazem HCl 125 mg/ Sodium (Chloride) 125 mls @ 5 mls/hr IV .Q24H PRN; 5 MG/ HR PRN Reason: Protocol Lorazepam (Ativan) 1 mg IVP ONCE PRN Methylprednisolone (Solu-Medrol) 20 mg IVP BID [facility] Last Admin: 05/09/17 10:40 Dose: 20 mg Morphine Sulfate (Morphine) 2 mg SC Q4 PRN PRN Reason: Pain, moderate (4-7) Last Admin: 05/09/17 11:14 Dose: 2 mg Ondansetron HCl (Zofran Inj) 4 mg IVP Q4 PRN PRN Reason: Nausea/Vomiting Potassium Chloride (Potassium Chloride Oral Soln) 40 meq PO Q12 [facility] Stop: 05/09/17 22:01 Last Admin: 05/09/17 10:30 Dose: 40 meq - Labs Labs: 05/09/17 06:48 05/09/17 06:48 PT 12.4 SECONDS (9.7-12.2) H 05/05/17 06:40 INR 1.1 05/05/17 06:40 APTT 27 SECONDS (21-34) 05/04/17 06:35 Attending/Attestation - Attestation I have personally seen and examined this patient.: Yes I have fully participated in the care of the patient.: Yes I have reviewed all pertinent clinical information, including history, physical exam and plan: Yes Notes (Text): 05/09/17 14:25 Pt was seen and examined at bedside Agree with above note and assessment
--- NOTE | 2017-05-09 14:52 | CP.CCUPN ---
CCU Subjective - Physician Review Events Since Last Encounter (Free Text): 05/09/17 14:50 Patient seen and examined in the intensive care unit. Case discussed with house staff in the morning rounds. Remained intubated on ventilatory support FiO2 40% Sedated Afebrile Status post plasmapheresis yesterday On anticoagulation for DVT with no active bleeding CCU Objective - Vital Signs / Intake & Output Vital Signs (Last 4 hours): Vital Signs Pulse Resp BP Pulse Ox 05/09/17 14:34 86 16 148/88 99 05/09/17 14:00 77 24 97 05/09/17 13:34 79 22 154/84 H 97 05/09/17 13:00 81 23 97 05/09/17 12:34 80 22 147/81 98 05/09/17 12:00 78 20 97 05/09/17 11:34 85 21 155/78 H 98 05/09/17 11:04 148/78 05/09/17 11:00 89 22 98 Intake and Output (Last 8hrs): Intake & Output 05/08/17 05/09/17 05/09/17 22:59 06:59 14:59 Intake Total 1024.5 1126.3 1303.3 Output Total 2775 2210 1020 Balance -1750.5 -1083.7 283.3 Intake: IV 0 100 Intake, IV Amount 704.5 706.3 873.3 Proximal Port 270 Right Distal Port 600 612.5 537.5 Internal Jugular Right Medial Port 104.5 93.8 65.8 Internal Jugular Tube Feeding 320 320 280 Other 150 Output: Drainage 100 Wound Vac 100 Urine 2675 2210 1020 Urethral (Colmenares) 2675 2210 1020 Other: # Bowel Movements 0 0 0 - Physical Exam Head: Positive for: Atraumatic, Normocephalic Extroacular Muscles: Positive for: EOMI Mouth: Positive for: Moist Mucous Membranes Respiratory/Chest: Positive for: Rales, Other (intubated). Negative for: Clear to Auscultation, Accessory Muscle Use, Wheezes, Decreased Breath Sounds, Rhonchi , Tachypneic Cardiovascular: Positive for: Normal S1, S2, Tachycardic Abdomen: Positive for: Other (Obese). Negative for: Tenderness, Normal Bowel Sounds (hypoactive) Rectal: Positive for: Other (Sacral wound) Upper Extremity: Positive for: Normal Inspection. Negative for: Edema Lower Extremity: Positive for: Edema, Swelling Skin: Positive for: Warm, Dry, Normal Color, Other (sacral wound- copious drainage) Psychiatric: Positive for: Alert. Negative for: Oriented x 3 - Medications Active Medications: Active Medications Generic Name Dose Route Start Last Admin Trade Name Freq PRN Reason Stop Dose Admin Albuterol/Ipratropium 3 ml 05/03/17 02:00 05/09/17 14:21 Duoneb 3 Mg/0.5 Mg (3 Ml) Ud INH 3 ml RQ6 RIK Administration Apixaban 5 mg 05/05/17 16:00 05/09/17 11:13 Eliquis PO 5 mg BID RIK Administration Famotidine 20 mg 05/07/17 10:00 05/09/17 11:11 Pepcid PO 20 mg DAILY RIK Administration Furosemide 40 mg 05/09/17 10:00 05/09/17 11:04 Lasix IVP 40 mg DAILY RIK Administration Vancomycin HCl 1 gm/ Sodium 250 mls @ 166.7 mls/hr 05/03/17 09:00 05/09/17 11 :19 Chloride IVPB 166.7 mls/hr Q24H RIK Administration Piperacillin Sod/Tazobactam Sod 3.375 gm in 50 mls @ 100 mls/hr 05/05/17 19: 00 05/09/17 06:44 Zosyn 3.375 Gm Iv Premix IVPB 100 mls/hr Q6H RIK Administration Propofol 1,000 mg in 100 mls @ 3.9 mls/hr 05/06/17 16:23 05/09/17 06:42 Diprivan IV 10 mcg/kg/min .Q24H PRN 7.8 mls/hr TITRATE PER MD ORDER Titration Protocol 5 MCG/KG/MIN Sodium Chloride 1,000 mls @ 75 mls/hr 05/08/17 10:00 05/09/17 02:15 Sodium Chloride 0.9% IV 75 mls/hr .[id number] RIK Administration Lorazepam 1 mg 05/04/17 09:00 Ativan IVP ONCE PRN Methylprednisolone 20 mg 05/03/17 08:25 05/09/17 10:40 Solu-Medrol IVP 20 mg BID RIK Administration Morphine Sulfate 2 mg 05/04/17 12:37 05/09/17 11:14 Morphine SC 2 mg Q4 PRN Administration Pain, moderate (4-7) Ondansetron HCl 4 mg 05/04/17 09:41 Zofran Inj IVP Q4 PRN Nausea/Vomiting Potassium Chloride 40 meq 05/09/17 10:00 05/09/17 10:30 Potassium Chloride Oral Soln PO 05/09/17 22:01 40 meq Q12 RIK Administration - Patient Studies Lab Studies: Lab Studies 05/09/17 05/09/17 05/09/17 Range/Units 11:59 06:48 06:48 WBC 21.7 H (4.8-10.8) K/uL RBC 3.22 L (3.80-5.20) Mil/uL Hgb 8.2 L (11.0-16.0) g/dL Hct 26.7 L (34.0-47.0) % MCV 82.8 (81.0-99.0) fL MCH 25.4 L (27.0-31.0) pg MCHC 30.7 L (33.0-37.0) g/dL RDW 19.2 H (11.5-14.5) % Plt Count 248 D (130-400) K/uL MPV 8.3 (7.2-11.7) fL Neut % (Auto) 80.3 H (50.0-75.0) % Lymph % (Auto) 12.8 L (20.0-40.0) % Kerr % (Auto) 5.2 (0.0-10.0) % Eos % (Auto) 1.5 (0.0-4.0) % Baso % (Auto) 0.2 (0.0-2.0) % Neut # 17.5 H (1.8-7.0) K/uL Lymph # 2.8 (1.0-4.3) K/uL Kerr # 1.1 H (0.0-0.8) K/uL Eos # 0.3 (0.0-0.7) K/uL Baso # 0.0 (0.0-0.2) K/uL Retic Count 2.7 H (0.5-1.5) % Lupus Anticoagulant LA PTT Screen (<=40) sec dRVVT Mixing Study (<=45) sec dRVVT Mix Interpret Hexagonal Phase Confirm (Negative) Puncture Site pCO2 (35-45) mm/Hg pO2 (80-100) mm/Hg HCO3 (21-28) mmol/L ABG pH (7.35-7.45) ABG Total CO2 (22-28) mmol/L ABG O2 Saturation (95-98) % ABG Base Excess (-2.0-3.0) mmol/L ABG Hemoglobin (11.7-17.4) g/dL ABG Carboxyhemoglobin (0.5-1.5) % POC ABG HHb (Measured) (0.0-5.0) % ABG Methemoglobin (0.0-3.0) % Ming Test A-a O2 Difference mm/Hg Respiratory Index Hgb O2 Saturation (95.0-98.0) % Vent Mode Mechanical Rate FiO2 % Tidal Volume PEEP Sodium 143 (132-148) mmol/L Potassium 3.2 L (3.6-5.2) mmol/L Chloride 106 (98-107) mmol/L Carbon Dioxide 25 (22-30) mmol/L Anion Gap 15 (10-20) BUN 13 (7-17) mg/dL Creatinine 0.6 L (0.7-1.2) MG/DL Est GFR ( Amer) > 60 Est GFR (Non-Af Amer) > 60 POC Glucose (mg/dL) 98 (65-110) mg/dL Random Glucose 76 (65-105) mg/dL Calcium 8.5 L (8.6-10.4) mg/dl Phosphorus 3.9 (2.5-4.5) mg/dL Magnesium 1.7 (1.6-2.3) mg/dL Ferritin 83.9 ng/mL Total Bilirubin 0.6 (0.2-1.3) mg/dL AST 13 L (14-36) U/L ALT 26 (9-52) U/L Alkaline Phosphatase 30 L D (38-126) U/L Total Protein 5.1 L (6.3-8.3) g/dL Albumin 3.0 L (3.5-5.0) g/dL Globulin 2.2 (2.2-3.9) gm/dL Albumin/Globulin Ratio 1.4 (1.0-2.1) Vitamin B12 488 (239-931) pg/mL Folate 6.7 ng/mL Phosphatidylserine IgG (<10) U/mL Phosphatidylserine IgA (<20) U/mL Phosphatidylserine IgM (<25) U/mL Anti-Phospholipid Intrp Anti-Cardiolipin IgM Ab (<=12) MPL 05/09/17 05/09/17 05/08/17 Range/Units 06:08 05:25 23:55 WBC (4.8-10.8) K/uL RBC (3.80-5.20) Mil/uL Hgb (11.0-16.0) g/dL Hct (34.0-47.0) % MCV (81.0-99.0) fL MCH (27.0-31.0) pg MCHC (33.0-37.0) g/dL RDW (11.5-14.5) % Plt Count (130-400) K/uL MPV (7.2-11.7) fL Neut % (Auto) (50.0-75.0) % Lymph % (Auto) (20.0-40.0) % Kerr % (Auto) (0.0-10.0) % Eos % (Auto) (0.0-4.0) % Baso % (Auto) (0.0-2.0) % Neut # (1.8-7.0) K/uL Lymph # (1.0-4.3) K/uL Kerr # (0.0-0.8) K/uL Eos # (0.0-0.7) K/uL Baso # (0.0-0.2) K/uL Retic Count (0.5-1.5) % Lupus Anticoagulant LA PTT Screen (<=40) sec dRVVT Mixing Study (<=45) sec dRVVT Mix Interpret Hexagonal Phase Confirm (Negative) Puncture Site Rr pCO2 30 L (35-45) mm/Hg pO2 177 H (80-100) mm/Hg HCO3 26.3 (21-28) mmol/L ABG pH 7.52 H (7.35-7.45) ABG Total CO2 25.4 (22-28) mmol/L ABG O2 Saturation 99.6 H (95-98) % ABG Base Excess 1.8 (-2.0-3.0) mmol/L ABG Hemoglobin 7.9 L (11.7-17.4) g/dL ABG Carboxyhemoglobin 1.4 (0.5-1.5) % POC ABG HHb (Measured) 0.4 (0.0-5.0) % ABG Methemoglobin 1.9 (0.0-3.0) % Ming Test Pos A-a O2 Difference 71.0 mm/Hg Respiratory Index 0.4 Hgb O2 Saturation 96.3 (95.0-98.0) % Vent Mode Prvc Mechanical Rate 14 FiO2 40.0 % Tidal Volume 500 PEEP 5 Sodium (132-148) mmol/L Potassium (3.6-5.2) mmol/L Chloride (98-107) mmol/L Carbon Dioxide (22-30) mmol/L Anion Gap (10-20) BUN (7-17) mg/dL Creatinine (0.7-1.2) MG/DL Est GFR ( Amer) Est GFR (Non-Af Amer) POC Glucose (mg/dL) 109 123 H (65-110) mg/dL Random Glucose (65-105) mg/dL Calcium (8.6-10.4) mg/dl Phosphorus (2.5-4.5) mg/dL Magnesium (1.6-2.3) mg/dL Ferritin ng/mL Total Bilirubin (0.2-1.3) mg/dL AST (14-36) U/L ALT (9-52) U/L Alkaline Phosphatase (38-126) U/L Total Protein (6.3-8.3) g/dL Albumin (3.5-5.0) g/dL Globulin (2.2-3.9) gm/dL Albumin/Globulin Ratio (1.0-2.1) Vitamin B12 (239-931) pg/mL Folate ng/mL Phosphatidylserine IgG (<10) U/mL Phosphatidylserine IgA (<20) U/mL Phosphatidylserine IgM (<25) U/mL Anti-Phospholipid Intrp Anti-Cardiolipin IgM Ab (<=12) MPL 05/08/17 05/06/17 05/04/17 Range/Units 17:57 10:27 20:53 WBC (4.8-10.8) K/uL RBC (3.80-5.20) Mil/uL Hgb (11.0-16.0) g/dL Hct (34.0-47.0) % MCV (81.0-99.0) fL MCH (27.0-31.0) pg MCHC (33.0-37.0) g/dL RDW (11.5-14.5) % Plt Count (130-400) K/uL MPV (7.2-11.7) fL Neut % (Auto) (50.0-75.0) % Lymph % (Auto) (20.0-40.0) % Kerr % (Auto) (0.0-10.0) % Eos % (Auto) (0.0-4.0) % Baso % (Auto) (0.0-2.0) % Neut # (1.8-7.0) K/uL Lymph # (1.0-4.3) K/uL Kerr # (0.0-0.8) K/uL Eos # (0.0-0.7) K/uL Baso # (0.0-0.2) K/uL Retic Count (0.5-1.5) % Lupus Anticoagulant see note LA PTT Screen 42 H (<=40) sec dRVVT Mixing Study 46 H (<=45) sec dRVVT Mix Interpret Not indicated Hexagonal Phase Confirm Negative (Negative) Puncture Site pCO2 (35-45) mm/Hg pO2 (80-100) mm/Hg HCO3 (21-28) mmol/L ABG pH (7.35-7.45) ABG Total CO2 (22-28) mmol/L ABG O2 Saturation (95-98) % ABG Base Excess (-2.0-3.0) mmol/L ABG Hemoglobin (11.7-17.4) g/dL ABG Carboxyhemoglobin (0.5-1.5) % POC ABG HHb (Measured) (0.0-5.0) % ABG Methemoglobin (0.0-3.0) % Ming Test A-a O2 Difference mm/Hg Respiratory Index Hgb O2 Saturation (95.0-98.0) % Vent Mode Mechanical Rate FiO2 % Tidal Volume PEEP Sodium (132-148) mmol/L Potassium (3.6-5.2) mmol/L Chloride (98-107) mmol/L Carbon Dioxide (22-30) mmol/L Anion Gap (10-20) BUN (7-17) mg/dL Creatinine (0.7-1.2) MG/DL Est GFR ( Amer) Est GFR (Non-Af Amer) POC Glucose (mg/dL) 101 (65-110) mg/dL Random Glucose (65-105) mg/dL Calcium (8.6-10.4) mg/dl Phosphorus (2.5-4.5) mg/dL Magnesium (1.6-2.3) mg/dL Ferritin ng/mL Total Bilirubin (0.2-1.3) mg/dL AST (14-36) U/L ALT (9-52) U/L Alkaline Phosphatase (38-126) U/L Total Protein (6.3-8.3) g/dL Albumin (3.5-5.0) g/dL Globulin (2.2-3.9) gm/dL Albumin/Globulin Ratio (1.0-2.1) Vitamin B12 (239-931) pg/mL Folate ng/mL Phosphatidylserine IgG <10 (<10) U/mL Phosphatidylserine IgA <20 (<20) U/mL Phosphatidylserine IgM <25 (<25) U/mL Anti-Phospholipid Intrp see note Anti-Cardiolipin IgM Ab <12 (<=12) MPL Laboratory Results - last 24 hr 05/04/17 05/06/17 05/08/17 20:53 10:27 17:57 WBC RBC Hgb Hct MCV MCH MCHC RDW Plt Count MPV Neut % (Auto) Lymph % (Auto) Kerr % (Auto) Eos % (Auto) Baso % (Auto) Neut # Lymph # Kerr # Eos # Baso # Retic Count Lupus Anticoagulant see note LA PTT Screen 42 H dRVVT Mixing Study 46 H dRVVT Mix Interpret Not indicated Hexagonal Phase Confirm Negative Puncture Site pCO2 pO2 HCO3 ABG pH ABG Total CO2 ABG O2 Saturation ABG Base Excess ABG Hemoglobin ABG Carboxyhemoglobin POC ABG HHb (Measured) ABG Methemoglobin Ming Test A-a O2 Difference Respiratory Index Hgb O2 Saturation Vent Mode Mechanical Rate FiO2 Tidal Volume PEEP Sodium Potassium Chloride Carbon Dioxide Anion Gap BUN Creatinine Est GFR ( Amer) Est GFR (Non-Af Amer) POC Glucose (mg/dL) 101 Random Glucose Calcium Phosphorus Magnesium Ferritin Total Bilirubin AST ALT Alkaline Phosphatase Total Protein Albumin Globulin Albumin/Globulin Ratio Vitamin B12 Folate Phosphatidylserine IgG <10 Phosphatidylserine IgA <20 Phosphatidylserine IgM <25 Anti-Phospholipid Intrp see note Anti-Cardiolipin IgM Ab <12 05/08/17 05/09/17 05/09/17 23:55 05:25 06:08 WBC RBC Hgb Hct MCV MCH MCHC RDW Plt Count MPV Neut % (Auto) Lymph % (Auto) Kerr % (Auto) Eos % (Auto) Baso % (Auto) Neut # Lymph # Kerr # Eos # Baso # Retic Count Lupus Anticoagulant LA PTT Screen dRVVT Mixing Study dRVVT Mix Interpret Hexagonal Phase Confirm Puncture Site Rr pCO2 30 L pO2 177 H HCO3 26.3 ABG pH 7.52 H ABG Total CO2 25.4 ABG O2 Saturation 99.6 H ABG Base Excess 1.8 ABG Hemoglobin 7.9 L ABG Carboxyhemoglobin 1.4 POC ABG HHb (Measured) 0.4 ABG Methemoglobin 1.9 Ming Test Pos A-a O2 Difference 71.0 Respiratory Index 0.4 Hgb O2 Saturation 96.3 Vent Mode Prvc Mechanical Rate 14 FiO2 40.0 Tidal Volume 500 PEEP 5 Sodium Potassium Chloride Carbon Dioxide Anion Gap BUN Creatinine Est GFR ( Amer) Est GFR (Non-Af Amer) POC Glucose (mg/dL) 123 H 109 Random Glucose Calcium Phosphorus Magnesium Ferritin Total Bilirubin AST ALT Alkaline Phosphatase Total Protein Albumin Globulin Albumin/Globulin Ratio Vitamin B12 Folate Phosphatidylserine IgG Phosphatidylserine IgA Phosphatidylserine IgM Anti-Phospholipid Intrp Anti-Cardiolipin IgM Ab 05/09/17 05/09/17 05/09/17 06:48 06:48 11:59 WBC 21.7 H RBC 3.22 L Hgb 8.2 L Hct 26.7 L MCV 82.8 MCH 25.4 L MCHC 30.7 L RDW 19.2 H Plt Count 248 D MPV 8.3 Neut % (Auto) 80.3 H Lymph % (Auto) 12.8 L Kerr % (Auto) 5.2 Eos % (Auto) 1.5 Baso % (Auto) 0.2 Neut # 17.5 H Lymph # 2.8 Kerr # 1.1 H Eos # 0.3 Baso # 0.0 Retic Count 2.7 H Lupus Anticoagulant LA PTT Screen dRVVT Mixing Study dRVVT Mix Interpret Hexagonal Phase Confirm Puncture Site pCO2 pO2 HCO3 ABG pH ABG Total CO2 ABG O2 Saturation ABG Base Excess ABG Hemoglobin ABG Carboxyhemoglobin POC ABG HHb (Measured) ABG Methemoglobin Ming Test A-a O2 Difference Respiratory Index Hgb O2 Saturation Vent Mode Mechanical Rate FiO2 Tidal Volume PEEP Sodium 143 Potassium 3.2 L Chloride 106 Carbon Dioxide 25 Anion Gap 15 BUN 13 Creatinine 0.6 L Est GFR ( Amer) > 60 Est GFR (Non-Af Amer) > 60 POC Glucose (mg/dL) 98 Random Glucose 76 Calcium 8.5 L Phosphorus 3.9 Magnesium 1.7 Ferritin 83.9 Total Bilirubin 0.6 AST 13 L ALT 26 Alkaline Phosphatase 30 L D Total Protein 5.1 L Albumin 3.0 L Globulin 2.2 Albumin/Globulin Ratio 1.4 Vitamin B12 488 Folate 6.7 Phosphatidylserine IgG Phosphatidylserine IgA Phosphatidylserine IgM Anti-Phospholipid Intrp Anti-Cardiolipin IgM Ab Fingerstick Blood Sugar Results: 142 Review of Systems - Review of Systems Systems not reviewed;Unavailable: Intubated Critical Care Progress Note - Ventilator Checklist Head of Bed 30 Degrees: Yes Daily Sedation Vacation: Yes Daily Spontaneous Breathing Trial: Yes Assessment/Plan (1) Sepsis Current Visit: Yes Status: Acute Comment: Continue antibiotics Status post wound VAC placement 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 (2) Hypotension Current Visit: Yes Status: Acute (3) COPD (chronic obstructive pulmonary disease) Current Visit: No Status: Chronic Comment: Continue nebulizer treatments and steroids Elevated white count most likely secondary to steroids (4) OPHELIA (obstructive sleep apnea) Current Visit: No Status: Chronic Comment: obstructive sleep apnea versus obesity hypoventilation syndrome
--- NOTE | 2017-05-09 15:12 | CP.PCM.PN ---
Subjective - Date & Time of Evaluation Date of Evaluation: 05/09/17 Time of Evaluation: 08:00 - Subjective Subjective: intubated. Alert and awake. Follows verbal commands. Objective - Vital Signs/Intake and Output Vital Signs (last 24 hours): Temp Pulse Resp BP Pulse Ox 98.6 F 86 16 148/88 99 05/08/17 20:00 05/09/17 14:34 05/09/17 14:34 05/09/17 14:34 05/09/17 14:34 Intake and Output: 05/09/17 05/09/17 06:59 18:59 Intake Total 1634.7 1303.3 Output Total 4230 1020 Balance -2595.3 283.3 - Medications Medications: Current Medications Albuterol/Ipratropium (Duoneb 3 Mg/0.5 Mg (3 Ml) Ud) 3 ml INH RQ6 [facility] Last Admin: 05/09/17 14:21 Dose: 3 ml Apixaban (Eliquis) 5 mg PO BID [facility] Last Admin: 05/09/17 11:13 Dose: 5 mg Famotidine (Pepcid) 20 mg PO DAILY [facility] Last Admin: 05/09/17 11:11 Dose: 20 mg Furosemide (Lasix) 40 mg IVP DAILY [facility] Last Admin: 05/09/17 11:04 Dose: 40 mg Vancomycin HCl 1 gm/ Sodium (Chloride) 250 mls @ 166.7 mls/hr IVPB Q24H [facility] Last Admin: 05/09/17 11:19 Dose: 166.7 mls/hr Piperacillin Sod/Tazobactam Sod (Zosyn 3.375 Gm Iv Premix) 3.375 gm in 50 mls @ 100 mls/hr IVPB Q6H [facility] Last Admin: 05/09/17 06:44 Dose: 100 mls/hr Propofol (Diprivan) 1,000 mg in 100 mls @ 3.9 mls/hr IV .Q24H PRN; Protocol; 5 MCG/KG/MIN PRN Reason: TITRATE PER MD ORDER Last Titration: 05/09/17 06:42 Dose: 10 mcg/kg/min, 7.8 mls/hr Sodium Chloride (Sodium Chloride 0.9%) 1,000 mls @ 75 mls/hr IV .[id number] [facility] Last Admin: 05/09/17 14:46 Dose: Not Given Lorazepam (Ativan) 1 mg IVP ONCE PRN Methylprednisolone (Solu-Medrol) 20 mg IVP BID [facility] Last Admin: 05/09/17 10:40 Dose: 20 mg Morphine Sulfate (Morphine) 2 mg SC Q4 PRN PRN Reason: Pain, moderate (4-7) Last Admin: 05/09/17 11:14 Dose: 2 mg Ondansetron HCl (Zofran Inj) 4 mg IVP Q4 PRN PRN Reason: Nausea/Vomiting Potassium Chloride (Potassium Chloride Oral Soln) 40 meq PO Q12 RIK Stop: 05/09/17 22:01 Last Admin: 05/09/17 10:30 Dose: 40 meq - Labs Labs: 05/09/17 06:48 05/09/17 06:48 PT 12.4 SECONDS (9.7-12.2) H 05/05/17 06:40 INR 1.1 05/05/17 06:40 APTT 27 SECONDS (21-34) 05/04/17 06:35 - Constitutional Appears: Non-toxic, Cachectic, Chronically Ill - Head Exam Head Exam: ATRAUMATIC, NORMAL INSPECTION, NORMOCEPHALIC - Eye Exam Eye Exam: PERRL. absent: Scleral icterus - Neck Exam Neck Exam: absent: Lymphadenopathy - Respiratory Exam Respiratory Exam: Decreased Breath Sounds, Rhonchi - Cardiovascular Exam Cardiovascular Exam: REGULAR RHYTHM, +S1, +S2 - GI/Abdominal Exam GI & Abdominal Exam: Distended, Soft - Rectal Exam Rectal Exam: Deferred - Exam Exam: NORMAL INSPECTION - Extremities Exam Extremities Exam: absent: Pedal Edema - Back Exam Back Exam: absent: CVA tenderness (L), CVA tenderness (R) - Neurological Exam Neurological Exam: Alert, Awake - Psychiatric Exam Psychiatric exam: Normal Mood - Skin Skin Exam: Dry Assessment and Plan (1) Dehydration Status: Acute (2) Hypotension Status: Acute (3) Sepsis Status: Acute (4) Morbidly obese Status: Chronic (5) Altered mental status Status: Acute (6) Anxiety Status: Acute (7) Cellulitis Status: Acute (8) Chronic pain Status: Acute (9) Weakness Status: Acute (10) COPD (chronic obstructive pulmonary disease) Status: Chronic (11) HTN (hypertension) Status: Chronic (12) OPHELIA (obstructive sleep apnea) Status: Chronic (13) Spinal stenosis Status: Chronic (14) SIRS (systemic inflammatory response syndrome) Status: Resolved - Assessment and Plan (Free Text) Assessment: cont rx GBS/ sepsis/ infected decubitus
[2017-05-10] MEDS: Piperacill/Tazo 3.375gm in Dex 3.375 GM/50 ML BAG IVPB SCH ×4 (00:01→18:43)
[2017-05-10] MEDS: Albuterol-Ipratrop 3 mg / 0.5 (3 ml) UD INH SCH ×4 (01:30→19:37)
[2017-05-10] MEDS: Sodium Chloride 0.9% 1,000 ML IV SCH ×3 (01:48→17:46)
[2017-05-10] MEDS: Propofol 10 mg/ml 1,000 MG/100 ML VIAL IV PRN (05:47)
[2017-05-10 06:01] LABS: ABG ALLEN TEST POS; ABG MECHANICAL RATE 12; ARTERIAL BLOOD GAS MODE PRVC; ARTERIAL BLOOD HGB O2 SAT 96.6 % (95.0-98.0); ATERIAL BLOOD GAS PEEP 5; DRAW SITE RR; HHB 0.3 % (0.0-5.0); METHEMOGLOBIN 1.1 % (0.0-3.0)
[2017-05-10 06:39] LABS: BASO # 0.1 K/uL (0.0-0.2); BASO % 0.2 % (0.0-2.0); EOS # 0.7 K/uL (0.0-0.7); EOS % 2.6 % (0.0-4.0); HEMATOCRIT 26.8 % (34.0-47.0); LYMPH # 3.2 K/uL (1.0-4.3); LYMPH % 12.7 % (20.0-40.0); MEAN CELL VOLUME 82.8 fL (81.0-99.0); MEAN CORPUSCULAR HEMOGLOBIN 25.7 pg (27.0-31.0); MEAN CORPUSCULAR HGB CONC 31.1 g/dL (33.0-37.0); MEAN PLATELET VOLUME 8.3 fL (7.2-11.7); MONO # 1.2 K/uL (0.0-0.8); MONO % 4.9 % (0.0-10.0); NRBC % 0.1 % (0.0-2.0); RED CELL DISTRIBUTION WIDTH 19.3 % (11.5-14.5); WHITE BLOOD COUNT 25.1 K/uL (4.8-10.8)
[2017-05-10 06:51] LABS: ALB/GLOB RATIO 1.3 (1.0-2.1); ALKALINE PHOSPHATASE 36 U/L (38-126); ALT/SGPT 21 U/L (9-52); AST/SGOT 17 U/L (14-36); BILIRUBIN,TOTAL 0.4 mg/dL (0.2-1.3); BLOOD UREA NITROGEN 14 mg/dL (7-17); CALCIUM 8.4 mg/dl (8.6-10.4); CARBON DIOXIDE 31 mmol/L (22-30); CHLORIDE 100 mmol/L (98-107); GFR AFRICAN-AMERICAN > 60; GLUCOSE,RANDOM 80 mg/dL (65-105); MAGNESIUM 1.6 mg/dL (1.6-2.3); PHOSPHOROUS 3.7 mg/dL (2.5-4.5); POTASSIUM 3.5 mmol/L (3.6-5.2); SODIUM 142 mmol/L (132-148); TOTAL PROTEIN 5.1 g/dL (6.3-8.3)
[2017-05-10 07:40] LABS: SSDNA IGG AB <69 U/mL (<230)
[2017-05-10] MEDS ORDERED: Potassium Chloride 20 mEq ER Tab PO ONE (09:36)
[2017-05-10] MEDS: MethylPREDNISolone 40 mg Vial IVP SCH ×2 (09:39→17:37)
[2017-05-10] MEDS ORDERED: Potassium Chloride 20 mEq/15 ml LIQ UD PO ONE (10:30)
--- NOTE | 2017-05-10 12:08 | CP.PCM.PN ---
Subjective - Date & Time of Evaluation Date of Evaluation: 05/10/17 Time of Evaluation: 07:00 - Subjective Subjective: intubated nad s/p I and D resp failure sepsis GBS Objective - Vital Signs/Intake and Output Vital Signs (last 24 hours): Temp Pulse Resp BP Pulse Ox 97.5 F L 83 20 119/67 97 05/09/17 20:00 05/10/17 12:00 05/10/17 12:00 05/10/17 11:34 05/10/17 12:00 Intake and Output: 05/10/17 05/10/17 06:59 18:59 Intake Total 1581.6 697.8 Output Total 2265 1340 Balance -683.4 -642.2 - Medications Medications: Current Medications Albuterol/Ipratropium (Duoneb 3 Mg/0.5 Mg (3 Ml) Ud) 3 ml INH RQ6 [facility] Last Admin: 05/10/17 07:30 Dose: 3 ml Apixaban (Eliquis) 5 mg PO BID [facility] Last Admin: 05/10/17 09:39 Dose: 5 mg Famotidine (Pepcid) 20 mg PO DAILY [facility] Last Admin: 05/10/17 09:39 Dose: 20 mg Furosemide (Lasix) 40 mg IVP DAILY [facility] Last Admin: 05/10/17 09:40 Dose: 40 mg Piperacillin Sod/Tazobactam Sod (Zosyn 3.375 Gm Iv Premix) 3.375 gm in 50 mls @ 100 mls/hr IVPB Q6H [facility] Last Admin: 05/10/17 06:16 Dose: 100 mls/hr Sodium Chloride (Sodium Chloride 0.9%) 1,000 mls @ 75 mls/hr IV .[id number] [facility] Last Admin: 05/10/17 01:48 Dose: Not Given Lorazepam (Ativan) 1 mg IVP ONCE PRN Methylprednisolone (Solu-Medrol) 20 mg IVP BID [facility] Last Admin: 05/10/17 09:39 Dose: 20 mg Morphine Sulfate (Morphine) 2 mg SC Q4 PRN PRN Reason: Pain, moderate (4-7) Last Admin: 05/10/17 05:42 Dose: 2 mg Ondansetron HCl (Zofran Inj) 4 mg IVP Q4 PRN PRN Reason: Nausea/Vomiting - Labs Labs: 05/10/17 06:31 05/10/17 06:29 PT 12.4 SECONDS (9.7-12.2) H 05/05/17 06:40 INR 1.1 05/05/17 06:40 APTT 27 SECONDS (21-34) 05/04/17 06:35 - Head Exam Head Exam: NORMAL INSPECTION - Eye Exam Eye Exam: PERRL - ENT Exam ENT Exam: Mucous Membranes Dry - Neck Exam Neck Exam: absent: Lymphadenopathy - Respiratory Exam Respiratory Exam: Decreased Breath Sounds - Cardiovascular Exam Cardiovascular Exam: REGULAR RHYTHM - GI/Abdominal Exam GI & Abdominal Exam: Distended, Soft Assessment and Plan (1) Dehydration Status: Acute (2) Hypotension Status: Acute (3) Sepsis Status: Acute (4) Morbidly obese Status: Chronic (5) Altered mental status Status: Acute (6) Anxiety Status: Acute (7) Cellulitis Status: Acute (8) Chronic pain Status: Acute (9) Weakness Status: Acute (10) COPD (chronic obstructive pulmonary disease) Status: Chronic (11) HTN (hypertension) Status: Chronic (12) OPHELIA (obstructive sleep apnea) Status: Chronic (13) Spinal stenosis Status: Chronic (14) SIRS (systemic inflammatory response syndrome) Status: Resolved
--- NOTE | 2017-05-10 13:14 | CP.PCM.PN ---
<Chris Connors - Last Filed: 05/10/17 13:17> Subjective - Date & Time of Evaluation Date of Evaluation: 05/10/17 Time of Evaluation: 06:45 - Subjective Subjective: Patient remains intubated, 40%FiO2, PEEP 5. Patient is asleep. No acute events over night. Objective - Vital Signs/Intake and Output Vital Signs (last 24 hours): Temp Pulse Resp BP Pulse Ox 97.5 F L 83 20 119/67 97 05/09/17 20:00 05/10/17 12:00 05/10/17 12:00 05/10/17 11:34 05/10/17 12:00 Intake and Output: 05/10/17 05/10/17 06:59 18:59 Intake Total 1581.6 697.8 Output Total 2265 1340 Balance -683.4 -642.2 - Medications Medications: Current Medications Albuterol/Ipratropium (Duoneb 3 Mg/0.5 Mg (3 Ml) Ud) 3 ml INH RQ6 [facility] Last Admin: 05/10/17 13:11 Dose: 3 ml Apixaban (Eliquis) 5 mg PO BID [facility] Last Admin: 05/10/17 09:39 Dose: 5 mg Famotidine (Pepcid) 20 mg PO DAILY [facility] Last Admin: 05/10/17 09:39 Dose: 20 mg Furosemide (Lasix) 40 mg IVP DAILY [facility] Last Admin: 05/10/17 09:40 Dose: 40 mg Piperacillin Sod/Tazobactam Sod (Zosyn 3.375 Gm Iv Premix) 3.375 gm in 50 mls @ 100 mls/hr IVPB Q6H [facility] Last Admin: 05/10/17 12:28 Dose: 100 mls/hr Sodium Chloride (Sodium Chloride 0.9%) 1,000 mls @ 75 mls/hr IV .[id number] [facility] Last Admin: 05/10/17 01:48 Dose: Not Given Lorazepam (Ativan) 1 mg IVP ONCE PRN Methylprednisolone (Solu-Medrol) 20 mg IVP BID [facility] Last Admin: 05/10/17 09:39 Dose: 20 mg Morphine Sulfate (Morphine) 2 mg SC Q4 PRN PRN Reason: Pain, moderate (4-7) Last Admin: 05/10/17 05:42 Dose: 2 mg Ondansetron HCl (Zofran Inj) 4 mg IVP Q4 PRN PRN Reason: Nausea/Vomiting - Labs Labs: 05/10/17 06:31 05/10/17 06:29 PT 12.4 SECONDS (9.7-12.2) H 05/05/17 06:40 INR 1.1 05/05/17 06:40 APTT 27 SECONDS (21-34) 05/04/17 06:35 - Constitutional Appears: Other (intubated) - Head Exam Head Exam: NORMOCEPHALIC - Eye Exam Eye Exam: Normal appearance Pupil Exam: NORMAL ACCOMODATION - ENT Exam ENT Exam: Normal Exam - Neck Exam Neck Exam: Normal Inspection - Respiratory Exam Respiratory Exam: NORMAL BREATHING PATTERN - Cardiovascular Exam Cardiovascular Exam: +S1, +S2 - GI/Abdominal Exam GI & Abdominal Exam: Soft - Neurological Exam Neurological Exam: absent: Awake - Skin Skin Exam: Normal Color, Warm Assessment and Plan - Assessment and Plan (Free Text) Assessment: 61F s/p wound vac placement POD5, right femoral catheter placement POD 6 -Wound vac change today - change wound vac q3days: Next change on Wednesday -Wound care management consult - monitor R catheter site D/w Dr. Rufina Connors PGY-2 <Juan Almaraz B - Last Filed: 05/16/17 18:40> Objective - Vital Signs/Intake and Output Vital Signs (last 24 hours): Temp Pulse Resp BP Pulse Ox 98 F 91 H 20 93/65 L 95 05/16/17 16:00 05/16/17 16:00 05/16/17 16:00 05/16/17 16:00 05/16/17 16:00 Intake and Output: 05/16/17 05/16/17 06:59 18:59 Intake Total 450 410 Output Total 1370 600 Balance -920 -190 - Medications Medications: Current Medications Albuterol Sulfate (Albuterol 0.083% Inhal Cee (2.5 Mg/3 Ml) Ud) 2.5 mg INH RQ6 PRN PRN Reason: Shortness of Breath Albuterol/Ipratropium (Duoneb 3 Mg/0.5 Mg (3 Ml) Ud) 3 ml INH RQ6 [facility] Last Admin: 05/11/17 07:38 Dose: 3 ml Apixaban (Eliquis) 5 mg PO BID [facility] Last Admin: 05/16/17 10:01 Dose: 5 mg Aspirin (Ecotrin) 81 mg PO DAILY [facility] Last Admin: 05/16/17 09:49 Dose: 81 mg Clonazepam (Klonopin) 1 mg PO Q12 [facility] Last Admin: 05/16/17 09:49 Dose: 1 mg Docusate Sodium (Colace) 100 mg PO TID [facility] Last Admin: 05/16/17 17:33 Dose: 100 mg Famotidine (Pepcid) 20 mg PO BID [facility] Last Admin: 05/16/17 17:33 Dose: 20 mg Furosemide (Lasix) 40 mg IVP DAILY [facility] Last Admin: 05/16/17 09:51 Dose: 40 mg Gabapentin (Neurontin) 300 mg PO TID [facility] Last Admin: 05/16/17 17:33 Dose: 300 mg Piperacillin Sod/Tazobactam Sod (Zosyn 3.375 Gm Iv Premix) 3.375 gm in 50 mls @ 100 mls/hr IVPB Q6H [facility] Last Admin: 05/16/17 13:06 Dose: 100 mls/hr Methylprednisolone (Solu-Medrol) 20 mg IVP DAILY [facility] Last Admin: 05/16/17 09:50 Dose: 20 mg Morphine Sulfate (Morphine) 2 mg IVP Q4 PRN PRN Reason: Pain, moderate (4-7) Last Admin: 05/16/17 17:34 Dose: 2 mg Ondansetron HCl (Zofran Inj) 4 mg IVP Q4 PRN PRN Reason: Nausea/Vomiting Potassium Chloride (K-Dur 20 Meq Er Tab) 20 meq PO DAILY [facility] Last Admin: 05/16/17 09:49 Dose: 20 meq Ranolazine (Ranexa) 500 mg PO BID [facility] Last Admin: 05/16/17 17:33 Dose: 500 mg Rosuvastatin Calcium (Crestor) 20 mg PO HS [facility] Last Admin: 05/15/17 21:04 Dose: 20 mg Temazepam (Restoril) 15 mg PO HS [facility] Last Admin: 05/15/17 21:04 Dose: 15 mg Tiotropium [place] (Spiriva) 18 mcg INH RQ24 [facility] - Labs Labs: 05/16/17 16:59 05/16/17 16:59 PT 12.4 SECONDS (9.7-12.2) H 05/05/17 06:40 INR 1.1 05/05/17 06:40 APTT 27 SECONDS (21-34) 05/04/17 06:35 Attending/Attestation - Attestation I have personally seen and examined this patient.: Yes I have fully participated in the care of the patient.: Yes I have reviewed all pertinent clinical information, including history, physical exam and plan: Yes Notes (Text): 05/16/17 18:39 Pt was seen and examined at bedside Agree with above note and assessment Wound vac change today C/w current mx Plan d.w pt and primary team.
--- NOTE | 2017-05-10 13:19 | RAD ---
HISTORY: vent COMPARISON: Chest x-ray performed 05/09/17 TECHNIQUE: Chest, one view. FINDINGS: Distal tip of the endotracheal tube terminates approximately 4.7 cm above the beth. Nasogastric tube extends expected location of the stomach. Examination limited by habitus. LUNGS: Patchy opacity at the left lung base may reflect atelectasis or infiltrate and or small effusion. No definite pneumothorax. PLEURA: No significant pleural effusion identified. No definite pneumothorax . CARDIOVASCULAR: Cardiomegaly. OSSEOUS STRUCTURES: Degenerative changes. VISUALIZED UPPER ABDOMEN: Unremarkable. OTHER FINDINGS: None. IMPRESSION: Distal tip of the endotracheal tube terminates approximately 4.7 cm above the beth. Nasogastric tube extends to the expected location of the stomach. Patchy opacity at the left lung base may reflect atelectasis or infiltrate and or small effusion.
--- NOTE | 2017-05-10 13:53 | CP.PCM.PN ---
Subjective - Date & Time of Evaluation Date of Evaluation: 05/10/17 Time of Evaluation: 13:53 Objective - Vital Signs/Intake and Output Vital Signs (last 24 hours): Temp Pulse Resp BP Pulse Ox 97.5 F L 74 16 127/67 96 05/09/17 20:00 05/10/17 13:00 05/10/17 13:00 05/10/17 12:34 05/10/17 13:00 Intake and Output: 05/10/17 05/10/17 06:59 18:59 Intake Total 1581.6 812.8 Output Total 2265 1690 Balance -683.4 -877.2 - Medications Medications: Current Medications Albuterol/Ipratropium (Duoneb 3 Mg/0.5 Mg (3 Ml) Ud) 3 ml INH RQ6 [facility] Last Admin: 05/10/17 13:11 Dose: 3 ml Apixaban (Eliquis) 5 mg PO BID [facility] Last Admin: 05/10/17 09:39 Dose: 5 mg Famotidine (Pepcid) 20 mg PO DAILY [facility] Last Admin: 05/10/17 09:39 Dose: 20 mg Furosemide (Lasix) 40 mg IVP DAILY [facility] Last Admin: 05/10/17 09:40 Dose: 40 mg Piperacillin Sod/Tazobactam Sod (Zosyn 3.375 Gm Iv Premix) 3.375 gm in 50 mls @ 100 mls/hr IVPB Q6H [facility] Last Admin: 05/10/17 12:28 Dose: 100 mls/hr Sodium Chloride (Sodium Chloride 0.9%) 1,000 mls @ 75 mls/hr IV .[id number] [facility] Last Admin: 05/10/17 13:14 Dose: 75 mls/hr Lorazepam (Ativan) 1 mg IVP ONCE PRN Methylprednisolone (Solu-Medrol) 20 mg IVP BID [facility] Last Admin: 05/10/17 09:39 Dose: 20 mg Morphine Sulfate (Morphine) 2 mg SC Q4 PRN PRN Reason: Pain, moderate (4-7) Last Admin: 05/10/17 05:42 Dose: 2 mg Ondansetron HCl (Zofran Inj) 4 mg IVP Q4 PRN PRN Reason: Nausea/Vomiting - Labs Labs: 05/10/17 06:31 05/10/17 06:29 PT 12.4 SECONDS (9.7-12.2) H 05/05/17 06:40 INR 1.1 05/05/17 06:40 APTT 27 SECONDS (21-34) 05/04/17 06:35
--- NOTE | 2017-05-10 15:00 | VASCLAB ---
PROCEDURE: Lower Extremity Venous Duplex Exam. HISTORY: hx of DVT (6wks prior)- unknown if treated PRIORS: None. TECHNIQUE: Bilateral common femoral, femoral, popliteal and posterior tibial, peroneal and great saphenous veins were evaluated. Flow was assessed with color Doppler, compressibility, assessment of phasic flow and augmentation response. Report prepared by Theo Lombardi, PHILIPPE, RVT FINDINGS: RIGHT: 1. Common Femoral Vein: 1.1. Compressibility - Fully compressible: Thrombus - None : Flow - Phasic: Augmentation -Normal: Reflux - None. 2. Femoral Vein: 2.1. Compressibility - Fully compressible: Thrombus - None : Flow - Phasic: Augmentation -Normal: Reflux - None. 3. Popliteal Vein: 3.1. Compressibility - Partial: Thrombus - Chronic : Flow - Reduced : Augmentation -Reduced: Reflux - None. 4. Posterior Tibial Vein: 4.1. Compressibility - Fully compressible: Thrombus - None: Flow - Phasic: Augmentation -Normal: Reflux - None. 5. Peroneal Vein: 5.1. Compressibility - Fully compressible: Thrombus - None: Flow - Phasic: Augmentation -Normal: Reflux - None. 6. Great Saphenous Vein: 6.1. Compressibility - Fully compressible: Thrombus - None: Flow - Phasic: Augmentation - Normal: Reflux - None. LEFT: 1. Common Femoral Vein: 1.1. Compressibility - Partial: Thrombus - Chronic: Flow - Absent : Augmentation -None: Reflux - None. 2. Femoral Vein: 2.1. Compressibility - Partial: Thrombus - Chronic: Flow - Reduced : Augmentation -None: Reflux - None. 3. Popliteal Vein: 3.1. Compressibility - Partial: Thrombus - Chronic : Flow - Reduced : Augmentation -None: Reflux - None. 4. Posterior Tibial Vein: 4.1. Compressibility - Fully compressible: Thrombus - None: Flow - Phasic: Augmentation -Normal: Reflux - None. 5. Peroneal Vein: 5.1. Compressibility - Fully compressible: Thrombus - None: Flow - Phasic: Augmentation -Normal: Reflux - None. 6. Great Saphenous Vein: 6.1. Compressibility - Fully compressible: Thrombus - None: Flow - Phasic: Augmentation - Normal: Reflux - None. OTHER FINDINGS: KANDICE Ray notified about the findings. Technically difficult study due to patient body habitus. 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
--- NOTE | 2017-05-10 15:17 | CP.PCM.PN ---
Subjective - Date & Time of Evaluation Date of Evaluation: 05/10/17 Time of Evaluation: 09:30 - Subjective Subjective: patient seen and examined. Remains intubated on ventilaatory support Afebrile On plasmapheresis no active bleeding noted Objective - Vital Signs/Intake and Output Vital Signs (last 24 hours): Temp Pulse Resp BP Pulse Ox 97.5 F L 80 17 143/82 98 05/09/17 20:00 05/10/17 15:00 05/10/17 15:00 05/10/17 14:34 05/10/17 15:00 Intake and Output: 05/10/17 05/10/17 06:59 18:59 Intake Total 1581.6 1042.8 Output Total 2265 2190 Balance -683.4 -1147.2 - Medications Medications: Current Medications Albuterol/Ipratropium (Duoneb 3 Mg/0.5 Mg (3 Ml) Ud) 3 ml INH RQ6 [facility] Last Admin: 05/10/17 13:11 Dose: 3 ml Apixaban (Eliquis) 5 mg PO BID [facility] Last Admin: 05/10/17 09:39 Dose: 5 mg Famotidine (Pepcid) 20 mg PO DAILY [facility] Last Admin: 05/10/17 09:39 Dose: 20 mg Furosemide (Lasix) 40 mg IVP DAILY [facility] Last Admin: 05/10/17 09:40 Dose: 40 mg Piperacillin Sod/Tazobactam Sod (Zosyn 3.375 Gm Iv Premix) 3.375 gm in 50 mls @ 100 mls/hr IVPB Q6H [facility] Last Admin: 05/10/17 12:28 Dose: 100 mls/hr Sodium Chloride (Sodium Chloride 0.9%) 1,000 mls @ 75 mls/hr IV .[id number] [facility] Last Admin: 05/10/17 13:14 Dose: 75 mls/hr Lorazepam (Ativan) 1 mg IVP ONCE PRN Methylprednisolone (Solu-Medrol) 20 mg IVP BID [facility] Last Admin: 05/10/17 09:39 Dose: 20 mg Morphine Sulfate (Morphine) 2 mg SC Q4 PRN PRN Reason: Pain, moderate (4-7) Last Admin: 05/10/17 14:38 Dose: 2 mg Ondansetron HCl (Zofran Inj) 4 mg IVP Q4 PRN PRN Reason: Nausea/Vomiting - Labs Labs: 05/10/17 06:31 05/10/17 06:29 PT 12.4 SECONDS (9.7-12.2) H 05/05/17 06:40 INR 1.1 05/05/17 06:40 APTT 27 SECONDS (21-34) 05/04/17 06:35 Assessment and Plan (1) Sepsis Status: Acute (2) Altered mental status Status: Acute (3) Hypotension Status: Acute (4) COPD (chronic obstructive pulmonary disease) Status: Chronic (5) OPHELIA (obstructive sleep apnea) Status: Chronic
--- NOTE | 2017-05-10 15:30 | CP.CCUPN ---
<Kelley Myers - Last Filed: 05/10/17 15:27> CCU Subjective - Physician Review Subjective (Free Text): Patient was seen and examined at bedside in the morning. Patient intubated, alert, and able to respond by nodding her head. Patient denies having chest pain, abdominal pain, dizziness, and fevers. 05/10/17 15:27 CCU Objective - Vital Signs / Intake & Output Vital Signs (Last 4 hours): Vital Signs Pulse Resp BP Pulse Ox 05/10/17 15:00 80 17 98 05/10/17 14:34 88 21 143/82 99 05/10/17 14:00 111 H 20 98 05/10/17 13:34 70 16 124/70 96 05/10/17 13:00 74 16 96 05/10/17 12:34 75 15 127/67 96 05/10/17 12:00 83 20 97 05/10/17 11:34 84 17 119/67 96 Intake and Output (Last 8hrs): Intake & Output 05/10/17 05/10/17 05/10/17 06:59 14:59 22:59 Intake Total 1084.0 927.8 115 Output Total 940 2040 150 Balance 144.0 -1112.2 -35 Weight 290 lb 290 lb Intake: IV 100 0 Intake, IV Amount 664.0 607.8 75 Right Distal Port 600 600 75 Internal Jugular Right Medial Port 64.0 7.8 Internal Jugular Tube Feeding 320 320 40 Output: Drainage 10 10 Wound Vac 10 10 Urine 930 2030 150 Urethral (Colmenares) 930 2030 150 - Physical Exam Head: Positive for: Atraumatic, Normocephalic Extroacular Muscles: Positive for: EOMI Mouth: Positive for: Moist Mucous Membranes Respiratory/Chest: Positive for: Rales, Rhonchi, Other (intubated). Negative for: Clear to Auscultation, Accessory Muscle Use, Wheezes, Decreased Breath Sounds, Tachypneic Cardiovascular: Positive for: Normal S1, S2, Tachycardic Abdomen: Positive for: Other (Obese). Negative for: Tenderness, Normal Bowel Sounds (hypoactive) Rectal: Positive for: Other (Sacral wound) Upper Extremity: Positive for: Normal Inspection. Negative for: Edema Lower Extremity: Positive for: Edema, Swelling Skin: Positive for: Warm, Dry, Normal Color, Other (sacral wound- copious drainage) Psychiatric: Positive for: Alert. Negative for: Oriented x 3 - Medications Active Medications: Active Medications Generic Name Dose Route Start Last Admin Trade Name Freq PRN Reason Stop Dose Admin Albuterol/Ipratropium 3 ml 05/03/17 02:00 05/10/17 13:11 Duoneb 3 Mg/0.5 Mg (3 Ml) Ud INH 3 ml RQ6 RIK Administration Apixaban 5 mg 05/05/17 16:00 05/10/17 09:39 Eliquis PO 5 mg BID RIK Administration Famotidine 20 mg 05/07/17 10:00 05/10/17 09:39 Pepcid PO 20 mg DAILY RIK Administration Furosemide 40 mg 05/09/17 10:00 05/10/17 09:40 Lasix IVP 40 mg DAILY RIK Administration Piperacillin Sod/Tazobactam Sod 3.375 gm in 50 mls @ 100 mls/hr 05/05/17 19: 00 05/10/17 12:28 Zosyn 3.375 Gm Iv Premix IVPB 100 mls/hr Q6H RIK Administration Sodium Chloride 1,000 mls @ 75 mls/hr 05/08/17 10:00 05/10/17 13:14 Sodium Chloride 0.9% IV 75 mls/hr .[id number] RIK Administration Lorazepam 1 mg 05/04/17 09:00 Ativan IVP ONCE PRN Methylprednisolone 20 mg 05/03/17 08:25 05/10/17 09:39 Solu-Medrol IVP 20 mg BID RIK Administration Morphine Sulfate 2 mg 05/04/17 12:37 05/10/17 14:38 Morphine SC 2 mg Q4 PRN Administration Pain, moderate (4-7) Ondansetron HCl 4 mg 05/04/17 09:41 Zofran Inj IVP Q4 PRN Nausea/Vomiting - Patient Studies Lab Studies: Lab Studies 05/10/17 05/10/17 05/10/17 Range/Units 11:43 06:31 06:29 WBC 25.1 H (4.8-10.8) K/uL RBC 3.24 L (3.80-5.20) Mil/uL Hgb 8.3 L (11.0-16.0) g/dL Hct 26.8 L (34.0-47.0) % MCV 82.8 (81.0-99.0) fL MCH 25.7 L (27.0-31.0) pg MCHC 31.1 L (33.0-37.0) g/dL RDW 19.3 H (11.5-14.5) % Plt Count 253 (130-400) K/uL MPV 8.3 (7.2-11.7) fL Neut % (Auto) 79.6 H (50.0-75.0) % Lymph % (Auto) 12.7 L (20.0-40.0) % [place] % (Auto) 4.9 (0.0-10.0) % Eos % (Auto) 2.6 (0.0-4.0) % Baso % (Auto) 0.2 (0.0-2.0) % Neut # 20.0 H (1.8-7.0) K/uL Lymph # 3.2 (1.0-4.3) K/uL [place] # 1.2 H (0.0-0.8) K/uL Eos # 0.7 (0.0-0.7) K/uL Baso # 0.1 (0.0-0.2) K/uL Puncture Site pCO2 (35-45) mm/Hg pO2 (80-100) mm/Hg HCO3 (21-28) mmol/L ABG pH (7.35-7.45) ABG Total CO2 (22-28) mmol/L ABG O2 Saturation (95-98) % ABG Base Excess (-2.0-3.0) mmol/L ABG Hemoglobin (11.7-17.4) g/dL ABG Carboxyhemoglobin (0.5-1.5) % POC ABG HHb (Measured) (0.0-5.0) % ABG Methemoglobin (0.0-3.0) % Ming Test A-a O2 Difference mm/Hg Respiratory Index Hgb O2 Saturation (95.0-98.0) % Vent Mode Mechanical Rate FiO2 % Tidal Volume PEEP Sodium 142 (132-148) mmol/L Potassium 3.5 L (3.6-5.2) mmol/L Chloride 100 (98-107) mmol/L Carbon Dioxide 31 H (22-30) mmol/L Anion Gap 15 (10-20) BUN 14 (7-17) mg/dL Creatinine 0.7 (0.7-1.2) MG/DL Est GFR ( Amer) > 60 Est GFR (Non-Af Amer) > 60 POC Glucose (mg/dL) 136 H (65-110) mg/dL Random Glucose 80 (65-105) mg/dL Calcium 8.4 L (8.6-10.4) mg/dl Phosphorus 3.7 (2.5-4.5) mg/dL Magnesium 1.6 (1.6-2.3) mg/dL Total Bilirubin 0.4 (0.2-1.3) mg/dL AST 17 (14-36) U/L ALT 21 (9-52) U/L Alkaline Phosphatase 36 L (38-126) U/L Total Protein 5.1 L (6.3-8.3) g/dL Albumin 2.9 L (3.5-5.0) g/dL Globulin 2.3 (2.2-3.9) gm/dL Albumin/Globulin Ratio 1.3 (1.0-2.1) Anti-ss DNA IgG Ab (<230) U/mL 05/10/17 05/10/17 05/09/17 Range/Units 05:28 04:59 23:19 WBC (4.8-10.8) K/uL RBC (3.80-5.20) Mil/uL Hgb (11.0-16.0) g/dL Hct (34.0-47.0) % MCV (81.0-99.0) fL MCH (27.0-31.0) pg MCHC (33.0-37.0) g/dL RDW (11.5-14.5) % Plt Count (130-400) K/uL MPV (7.2-11.7) fL Neut % (Auto) (50.0-75.0) % Lymph % (Auto) (20.0-40.0) % [place] % (Auto) (0.0-10.0) % Eos % (Auto) (0.0-4.0) % Baso % (Auto) (0.0-2.0) % Neut # (1.8-7.0) K/uL Lymph # (1.0-4.3) K/uL [place] # (0.0-0.8) K/uL Eos # (0.0-0.7) K/uL Baso # (0.0-0.2) K/uL Puncture Site Rr pCO2 48 H (35-45) mm/Hg pO2 106 H (80-100) mm/Hg HCO3 32.8 H (21-28) mmol/L ABG pH 7.47 H (7.35-7.45) ABG Total CO2 36.4 H (22-28) mmol/L ABG O2 Saturation 99.7 H (95-98) % ABG Base Excess 10.1 H (-2.0-3.0) mmol/L ABG Hemoglobin 9.0 L (11.7-17.4) g/dL ABG Carboxyhemoglobin 2.0 H (0.5-1.5) % POC ABG HHb (Measured) 0.3 (0.0-5.0) % ABG Methemoglobin 1.1 (0.0-3.0) % Ming Test Pos A-a O2 Difference 119.0 mm/Hg Respiratory Index 1.1 Hgb O2 Saturation 96.6 (95.0-98.0) % Vent Mode Prvc Mechanical Rate 12 FiO2 40.0 % Tidal Volume 450 PEEP 5 Sodium (132-148) mmol/L Potassium (3.6-5.2) mmol/L Chloride (98-107) mmol/L Carbon Dioxide (22-30) mmol/L Anion Gap (10-20) BUN (7-17) mg/dL Creatinine (0.7-1.2) MG/DL Est GFR ( Amer) Est GFR (Non-Af Amer) POC Glucose (mg/dL) 96 93 (65-110) mg/dL Random Glucose (65-105) mg/dL Calcium (8.6-10.4) mg/dl Phosphorus (2.5-4.5) mg/dL Magnesium (1.6-2.3) mg/dL Total Bilirubin (0.2-1.3) mg/dL AST (14-36) U/L ALT (9-52) U/L Alkaline Phosphatase (38-126) U/L Total Protein (6.3-8.3) g/dL Albumin (3.5-5.0) g/dL Globulin (2.2-3.9) gm/dL Albumin/Globulin Ratio (1.0-2.1) Anti-ss DNA IgG Ab (<230) U/mL 05/09/17 05/06/17 Range/Units 17:27 10:27 WBC (4.8-10.8) K/uL RBC (3.80-5.20) Mil/uL Hgb (11.0-16.0) g/dL Hct (34.0-47.0) % MCV (81.0-99.0) fL MCH (27.0-31.0) pg MCHC (33.0-37.0) g/dL RDW (11.5-14.5) % Plt Count (130-400) K/uL MPV (7.2-11.7) fL Neut % (Auto) (50.0-75.0) % Lymph % (Auto) (20.0-40.0) % [place] % (Auto) (0.0-10.0) % Eos % (Auto) (0.0-4.0) % Baso % (Auto) (0.0-2.0) % Neut # (1.8-7.0) K/uL Lymph # (1.0-4.3) K/uL [place] # (0.0-0.8) K/uL Eos # (0.0-0.7) K/uL Baso # (0.0-0.2) K/uL Puncture Site pCO2 (35-45) mm/Hg pO2 (80-100) mm/Hg HCO3 (21-28) mmol/L ABG pH (7.35-7.45) ABG Total CO2 (22-28) mmol/L ABG O2 Saturation (95-98) % ABG Base Excess (-2.0-3.0) mmol/L ABG Hemoglobin (11.7-17.4) g/dL ABG Carboxyhemoglobin (0.5-1.5) % POC ABG HHb (Measured) (0.0-5.0) % ABG Methemoglobin (0.0-3.0) % Ming Test A-a O2 Difference mm/Hg Respiratory Index Hgb O2 Saturation (95.0-98.0) % Vent Mode Mechanical Rate FiO2 % Tidal Volume PEEP Sodium (132-148) mmol/L Potassium (3.6-5.2) mmol/L Chloride (98-107) mmol/L Carbon Dioxide (22-30) mmol/L Anion Gap (10-20) BUN (7-17) mg/dL Creatinine (0.7-1.2) MG/DL Est GFR ( Amer) Est GFR (Non-Af Amer) POC Glucose (mg/dL) 159 H (65-110) mg/dL Random Glucose (65-105) mg/dL Calcium (8.6-10.4) mg/dl Phosphorus (2.5-4.5) mg/dL Magnesium (1.6-2.3) mg/dL Total Bilirubin (0.2-1.3) mg/dL AST (14-36) U/L ALT (9-52) U/L Alkaline Phosphatase (38-126) U/L Total Protein (6.3-8.3) g/dL Albumin (3.5-5.0) g/dL Globulin (2.2-3.9) gm/dL Albumin/Globulin Ratio (1.0-2.1) Anti-ss DNA IgG Ab <69 (<230) U/mL Laboratory Results - last 24 hr 05/06/17 05/09/17 05/09/17 10:27 17:27 23:19 WBC RBC Hgb Hct MCV MCH MCHC RDW Plt Count MPV Neut % (Auto) Lymph % (Auto) [place] % (Auto) Eos % (Auto) Baso % (Auto) Neut # Lymph # [place] # Eos # Baso # Puncture Site pCO2 pO2 HCO3 ABG pH ABG Total CO2 ABG O2 Saturation ABG Base Excess ABG Hemoglobin ABG Carboxyhemoglobin POC ABG HHb (Measured) ABG Methemoglobin Ming Test A-a O2 Difference Respiratory Index Hgb O2 Saturation Vent Mode Mechanical Rate FiO2 Tidal Volume PEEP Sodium Potassium Chloride Carbon Dioxide Anion Gap BUN Creatinine Est GFR ( Amer) Est GFR (Non-Af Amer) POC Glucose (mg/dL) 159 H 93 Random Glucose Calcium Phosphorus Magnesium Total Bilirubin AST ALT Alkaline Phosphatase Total Protein Albumin Globulin Albumin/Globulin Ratio Anti-ss DNA IgG Ab <69 08/05/10/17 05/10/17 04:59 05:28 06:29 WBC RBC Hgb Hct MCV MCH MCHC RDW Plt Count MPV Neut % (Auto) Lymph % (Auto) [place] % (Auto) Eos % (Auto) Baso % (Auto) Neut # Lymph # [place] # Eos # Baso # Puncture Site Rr pCO2 48 H pO2 106 H HCO3 32.8 H ABG pH 7.47 H ABG Total CO2 36.4 H ABG O2 Saturation 99.7 H ABG Base Excess 10.1 H ABG Hemoglobin 9.0 L ABG Carboxyhemoglobin 2.0 H POC ABG HHb (Measured) 0.3 ABG Methemoglobin 1.1 Ming Test Pos A-a O2 Difference 119.0 Respiratory Index 1.1 Hgb O2 Saturation 96.6 Vent Mode Prvc Mechanical Rate 12 FiO2 40.0 Tidal Volume 450 PEEP 5 Sodium 142 Potassium 3.5 L Chloride 100 Carbon Dioxide 31 H Anion Gap 15 BUN 14 Creatinine 0.7 Est GFR ( Amer) > 60 Est GFR (Non-Af Amer) > 60 POC Glucose (mg/dL) 96 Random Glucose 80 Calcium 8.4 L Phosphorus 3.7 Magnesium 1.6 Total Bilirubin 0.4 AST 17 ALT 21 Alkaline Phosphatase 36 L Total Protein 5.1 L Albumin 2.9 L Globulin 2.3 Albumin/Globulin Ratio 1.3 Anti-ss DNA IgG Ab 05/10/17 05/10/17 06:31 11:43 WBC 25.1 H RBC 3.24 L Hgb 8.3 L Hct 26.8 L MCV 82.8 MCH 25.7 L MCHC 31.1 L RDW 19.3 H Plt Count 253 MPV 8.3 Neut % (Auto) 79.6 H Lymph % (Auto) 12.7 L [place] % (Auto) 4.9 Eos % (Auto) 2.6 Baso % (Auto) 0.2 Neut # 20.0 H Lymph # 3.2 [place] # 1.2 H Eos # 0.7 Baso # 0.1 Puncture Site pCO2 pO2 HCO3 ABG pH ABG Total CO2 ABG O2 Saturation ABG Base Excess ABG Hemoglobin ABG Carboxyhemoglobin POC ABG HHb (Measured) ABG Methemoglobin Ming Test A-a O2 Difference Respiratory Index Hgb O2 Saturation Vent Mode Mechanical Rate FiO2 Tidal Volume PEEP Sodium Potassium Chloride Carbon Dioxide Anion Gap BUN Creatinine Est GFR ( Amer) Est GFR (Non-Af Amer) POC Glucose (mg/dL) 136 H Random Glucose Calcium Phosphorus Magnesium Total Bilirubin AST ALT Alkaline Phosphatase Total Protein Albumin Globulin Albumin/Globulin Ratio Anti-ss DNA IgG Ab Fingerstick Blood Sugar Results: 136 Review of Systems - Review of Systems Systems not reviewed;Unavailable: Intubated Critical Care Progress Note - Vent Settings TIDAL VOLUME:: 450 RESP RATE:: 14 FIO2:: 40 PEEP:: 5 Assessment/Plan - Assessment and Plan (Free Text) Assessment: 60-year-old female with history of anxiety, depression, chronic back pain, possible obstructive sleep apnea, COPD, was brought in by the family members because of altered mental status. Patient is hypotensive and septic. Patient has sacral wound, likely cause of sepsis. Patient went to the OR today for I/D of sacral wound. Wound vac in place. Wound culture came back positive for proteus mirabilis, group c strep-- continue Primaxin and vanco. Patient has new onset of a-fib, started cardizem drip on 05/05/17. Patient was in respiratory distress on 05/06/17 and intubated. 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 Patient will receive second plasmapheresis today, 05/10/17. Neuro: - Alert - Neurology consulted: Dr. Irvin, help appreciated - MRI: patient refused - As per neurology, patient had 1 dose of IVIG. IVIG was discontinued and patient started plasmapheresis for suspected [place]illian [place] Syndrome --> plasma exchange with albumin every other day x 5sessions Pulm: CO2 retention with acute exacerbation secondary to sepsis - Patient went into respiratory distress, was Intubated on 05/06/17. - Duonebs - Monitor ABG - Remains intubated, FiO2 40% CV: hypotensive, new onset A-Fib - Secondary to sepsis - Hx of DVT (6 weeks prior)--> Continue Eliquis 5mg PO - Venous dopplers: DVT in Right deep popliteal and left common femoral, femoral , and popliteal. - Cardizem drip for A-fib Endo: no acute issues GI: Tube feeding - Pepcid daily : no acute issues - UA: 1+ protein & blood, 4 Urobilinogen, 23 WBC, 8 RBC, Few bacteria. Heme: anemic - Continue to monitor H/H - Heme/onc consulted for plasmapheresis- Dr Morales, help appreciated - Surgical team placed dialysis catheter in right femoral for plasmapheresis treatments--> received first treatment on 05/07/18. As per neuro, patient requires a total of 5 treatments. Renal: - Elevated BUN/Cr--> improving, 14/0.7 - Monitor renal function - Hypokalemia: 3.2- gave KCl 40mEq IV - Hypomagnesemia: Resolved ID: Sepsis, leukocytosis, bandemia - ID consulted: Dr. Ornelas, help appreciated - Sacral wound- Proteus Mirabilis, Group C strep - Surgery consulted: Dr. Almaraz, desirae appreciated - Patients sacral wound- I&D with wound vac (vac changed q3days) - Continue Primaxin, Vanco - Wound care - C. Diff: negative Prophylaxis: - DVT: Eliquis, SCDs - GI: Pepcid daily - PT/OT <Martinez Sandoval - Last Filed: 05/10/17 17:57> CCU Objective - Vital Signs / Intake & Output Vital Signs (Last 4 hours): Vital Signs Pulse Resp BP Pulse Ox 05/10/17 17:34 78 20 153/90 H 98 05/10/17 17:00 83 20 05/10/17 16:34 133/76 05/10/17 16:00 81 18 98 05/10/17 15:34 86 19 143/77 98 05/10/17 15:00 80 17 98 05/10/17 14:34 88 21 143/82 99 05/10/17 14:00 111 H 20 98 Intake and Output (Last 8hrs): Intake & Output 05/10/17 05/10/17 05/10/17 06:59 14:59 22:59 Intake Total 1084.0 927.8 345 Output Total 940 2040 800 Balance 144.0 -1112.2 -455 Weight 290 lb 290 lb Intake: IV 100 0 Intake, IV Amount 664.0 607.8 225 Right Distal Port 600 600 225 Internal Jugular Right Medial Port 64.0 7.8 Internal Jugular Tube Feeding 320 320 120 Output: Drainage 10 10 Wound Vac 10 10 Urine 930 2030 800 Urethral (Colmenares) 930 2030 800 - Medications Active Medications: Active Medications Generic Name Dose Route Start Last Admin Trade Name Freq PRN Reason Stop Dose Admin Albuterol/Ipratropium 3 ml 05/03/17 02:00 05/10/17 13:11 Duoneb 3 Mg/0.5 Mg (3 Ml) Ud INH 3 ml RQ6 RIK Administration Apixaban 5 mg 05/05/17 16:00 05/10/17 17:37 Eliquis PO 5 mg BID RIK Administration Famotidine 20 mg 05/07/17 10:00 05/10/17 09:39 Pepcid PO 20 mg DAILY RIK Administration Furosemide 40 mg 05/09/17 10:00 05/10/17 09:40 Lasix IVP 40 mg DAILY RIK Administration Piperacillin Sod/Tazobactam Sod 3.375 gm in 50 mls @ 100 mls/hr 05/05/17 19: 00 05/10/17 12:28 Zosyn 3.375 Gm Iv Premix IVPB 100 mls/hr Q6H RIK Administration Sodium Chloride 1,000 mls @ 75 mls/hr 05/08/17 10:00 05/10/17 17:46 Sodium Chloride 0.9% IV Not Given .[id number] RIK Lorazepam 1 mg 05/04/17 09:00 Ativan IVP ONCE PRN Methylprednisolone 20 mg 05/03/17 08:25 05/10/17 17:37 Solu-Medrol IVP 20 mg BID RIK Administration Morphine Sulfate 2 mg 05/04/17 12:37 05/10/17 14:38 Morphine SC 2 mg Q4 PRN Administration Pain, moderate (4-7) Ondansetron HCl 4 mg 05/04/17 09:41 Zofran Inj IVP Q4 PRN Nausea/Vomiting - Patient Studies Lab Studies: Lab Studies 05/10/17 05/10/17 05/10/17 Range/Units 12:41 11:43 06:31 WBC 25.1 H (4.8-10.8) K/uL RBC 3.24 L (3.80-5.20) Mil/uL Hgb 8.3 L (11.0-16.0) g/dL Hct 26.8 L (34.0-47.0) % MCV 82.8 (81.0-99.0) fL MCH 25.7 L (27.0-31.0) pg MCHC 31.1 L (33.0-37.0) g/dL RDW 19.3 H (11.5-14.5) % Plt Count 253 (130-400) K/uL MPV 8.3 (7.2-11.7) fL Neut % (Auto) 79.6 H (50.0-75.0) % Lymph % (Auto) 12.7 L (20.0-40.0) % [place] % (Auto) 4.9 (0.0-10.0) % Eos % (Auto) 2.6 (0.0-4.0) % Baso % (Auto) 0.2 (0.0-2.0) % Neut # 20.0 H (1.8-7.0) K/uL Lymph # 3.2 (1.0-4.3) K/uL [place] # 1.2 H (0.0-0.8) K/uL Eos # 0.7 (0.0-0.7) K/uL Baso # 0.1 (0.0-0.2) K/uL Puncture Site pCO2 (35-45) mm/Hg pO2 (80-100) mm/Hg HCO3 (21-28) mmol/L ABG pH (7.35-7.45) ABG Total CO2 (22-28) mmol/L ABG O2 Saturation (95-98) % ABG Base Excess (-2.0-3.0) mmol/L ABG Hemoglobin (11.7-17.4) g/dL ABG Carboxyhemoglobin (0.5-1.5) % POC ABG HHb (Measured) (0.0-5.0) % ABG Methemoglobin (0.0-3.0) % Ming Test A-a O2 Difference mm/Hg Respiratory Index Hgb O2 Saturation (95.0-98.0) % Vent Mode Mechanical Rate FiO2 % Tidal Volume PEEP Sodium (132-148) mmol/L Potassium (3.6-5.2) mmol/L Chloride (98-107) mmol/L Carbon Dioxide (22-30) mmol/L Anion Gap (10-20) BUN (7-17) mg/dL Creatinine (0.7-1.2) MG/DL Est GFR ( Amer) Est GFR (Non-Af Amer) POC Glucose (mg/dL) 136 H (65-110) mg/dL Random Glucose (65-105) mg/dL Calcium (8.6-10.4) mg/dl Phosphorus (2.5-4.5) mg/dL Magnesium (1.6-2.3) mg/dL Total Bilirubin (0.2-1.3) mg/dL AST (14-36) U/L ALT (9-52) U/L Alkaline Phosphatase (38-126) U/L Total Protein (6.3-8.3) g/dL Albumin (3.5-5.0) g/dL Globulin (2.2-3.9) gm/dL Albumin/Globulin Ratio (1.0-2.1) Procalcitonin 0.16 L (0.19-0.49) NG/ML IgG (694-1618) mg/dL IgA (81-463) mg/dL IgM (48-271) mg/dL Anti-ss DNA IgG Ab (<230) U/mL 05/10/17 05/10/17 05/10/17 Range/Units 06:29 05:28 04:59 WBC (4.8-10.8) K/uL RBC (3.80-5.20) Mil/uL Hgb (11.0-16.0) g/dL Hct (34.0-47.0) % MCV (81.0-99.0) fL MCH (27.0-31.0) pg MCHC (33.0-37.0) g/dL RDW (11.5-14.5) % Plt Count (130-400) K/uL MPV (7.2-11.7) fL Neut % (Auto) (50.0-75.0) % Lymph % (Auto) (20.0-40.0) % [place] % (Auto) (0.0-10.0) % Eos % (Auto) (0.0-4.0) % Baso % (Auto) (0.0-2.0) % Neut # (1.8-7.0) K/uL Lymph # (1.0-4.3) K/uL [place] # (0.0-0.8) K/uL Eos # (0.0-0.7) K/uL Baso # (0.0-0.2) K/uL Puncture Site Rr pCO2 48 H (35-45) mm/Hg pO2 106 H (80-100) mm/Hg HCO3 32.8 H (21-28) mmol/L ABG pH 7.47 H (7.35-7.45) ABG Total CO2 36.4 H (22-28) mmol/L ABG O2 Saturation 99.7 H (95-98) % ABG Base Excess 10.1 H (-2.0-3.0) mmol/L ABG Hemoglobin 9.0 L (11.7-17.4) g/dL ABG Carboxyhemoglobin 2.0 H (0.5-1.5) % POC ABG HHb (Measured) 0.3 (0.0-5.0) % ABG Methemoglobin 1.1 (0.0-3.0) % Ming Test Pos A-a O2 Difference 119.0 mm/Hg Respiratory Index 1.1 Hgb O2 Saturation 96.6 (95.0-98.0) % Vent Mode Prvc Mechanical Rate 12 FiO2 40.0 % Tidal Volume 450 PEEP 5 Sodium 142 (132-148) mmol/L Potassium 3.5 L (3.6-5.2) mmol/L Chloride 100 (98-107) mmol/L Carbon Dioxide 31 H (22-30) mmol/L Anion Gap 15 (10-20) BUN 14 (7-17) mg/dL Creatinine 0.7 (0.7-1.2) MG/DL Est GFR ( Amer) > 60 Est GFR (Non-Af Amer) > 60 POC Glucose (mg/dL) 96 (65-110) mg/dL Random Glucose 80 (65-105) mg/dL Calcium 8.4 L (8.6-10.4) mg/dl Phosphorus 3.7 (2.5-4.5) mg/dL Magnesium 1.6 (1.6-2.3) mg/dL Total Bilirubin 0.4 (0.2-1.3) mg/dL AST 17 (14-36) U/L ALT 21 (9-52) U/L Alkaline Phosphatase 36 L (38-126) U/L Total Protein 5.1 L (6.3-8.3) g/dL Albumin 2.9 L (3.5-5.0) g/dL Globulin 2.3 (2.2-3.9) gm/dL Albumin/Globulin Ratio 1.3 (1.0-2.1) Procalcitonin (0.19-0.49) NG/ML IgG (694-1618) mg/dL IgA (81-463) mg/dL IgM (48-271) mg/dL Anti-ss DNA IgG Ab (<230) U/mL 05/09/17 05/06/17 05/06/17 Range/Units 23:19 10:27 10:27 WBC (4.8-10.8) K/uL RBC (3.80-5.20) Mil/uL Hgb (11.0-16.0) g/dL Hct (34.0-47.0) % MCV (81.0-99.0) fL MCH (27.0-31.0) pg MCHC (33.0-37.0) g/dL RDW (11.5-14.5) % Plt Count (130-400) K/uL MPV (7.2-11.7) fL Neut % (Auto) (50.0-75.0) % Lymph % (Auto) (20.0-40.0) % [place] % (Auto) (0.0-10.0) % Eos % (Auto) (0.0-4.0) % Baso % (Auto) (0.0-2.0) % Neut # (1.8-7.0) K/uL Lymph # (1.0-4.3) K/uL [place] # (0.0-0.8) K/uL Eos # (0.0-0.7) K/uL Baso # (0.0-0.2) K/uL Puncture Site pCO2 (35-45) mm/Hg pO2 (80-100) mm/Hg HCO3 (21-28) mmol/L ABG pH (7.35-7.45) ABG Total CO2 (22-28) mmol/L ABG O2 Saturation (95-98) % ABG Base Excess (-2.0-3.0) mmol/L ABG Hemoglobin (11.7-17.4) g/dL ABG Carboxyhemoglobin (0.5-1.5) % POC ABG HHb (Measured) (0.0-5.0) % ABG Methemoglobin (0.0-3.0) % Ming Test A-a O2 Difference mm/Hg Respiratory Index Hgb O2 Saturation (95.0-98.0) % Vent Mode Mechanical Rate FiO2 % Tidal Volume PEEP Sodium (132-148) mmol/L Potassium (3.6-5.2) mmol/L Chloride (98-107) mmol/L Carbon Dioxide (22-30) mmol/L Anion Gap (10-20) BUN (7-17) mg/dL Creatinine (0.7-1.2) MG/DL Est GFR ( Amer) Est GFR (Non-Af Amer) POC Glucose (mg/dL) 93 (65-110) mg/dL Random Glucose (65-105) mg/dL Calcium (8.6-10.4) mg/dl Phosphorus (2.5-4.5) mg/dL Magnesium (1.6-2.3) mg/dL Total Bilirubin (0.2-1.3) mg/dL AST (14-36) U/L ALT (9-52) U/L Alkaline Phosphatase (38-126) U/L Total Protein (6.3-8.3) g/dL Albumin (3.5-5.0) g/dL Globulin (2.2-3.9) gm/dL Albumin/Globulin Ratio (1.0-2.1) Procalcitonin (0.19-0.49) NG/ML IgG 1155 (694-1618) mg/dL IgA 410 (81-463) mg/dL IgM 60 (48-271) mg/dL Anti-ss DNA IgG Ab <69 (<230) U/mL Laboratory Results - last 24 hr 05/06/17 05/06/17 05/09/17 10:27 10:27 23:19 WBC RBC Hgb Hct MCV MCH MCHC RDW Plt Count MPV Neut % (Auto) Lymph % (Auto) [place] % (Auto) Eos % (Auto) Baso % (Auto) Neut # Lymph # [place] # Eos # Baso # Puncture Site pCO2 pO2 HCO3 ABG pH ABG Total CO2 ABG O2 Saturation ABG Base Excess ABG Hemoglobin ABG Carboxyhemoglobin POC ABG HHb (Measured) ABG Methemoglobin Mnig Test A-a O2 Difference Respiratory Index Hgb O2 Saturation Vent Mode Mechanical Rate FiO2 Tidal Volume PEEP Sodium Potassium Chloride Carbon Dioxide Anion Gap BUN Creatinine Est GFR ( Amer) Est GFR (Non-Af Amer) POC Glucose (mg/dL) 93 Random Glucose Calcium Phosphorus Magnesium Total Bilirubin AST ALT Alkaline Phosphatase Total Protein Albumin Globulin Albumin/Globulin Ratio Procalcitonin IgG 1155 IgA 410 IgM 60 Anti-ss DNA IgG Ab <69 05/10/17 05/10/17 05/10/17 04:59 05:28 06:29 WBC RBC Hgb Hct MCV MCH MCHC RDW Plt Count MPV Neut % (Auto) Lymph % (Auto) [place] % (Auto) Eos % (Auto) Baso % (Auto) Neut # Lymph # [place] # Eos # Baso # Puncture Site Rr pCO2 48 H pO2 106 H HCO3 32.8 H ABG pH 7.47 H ABG Total CO2 36.4 H ABG O2 Saturation 99.7 H ABG Base Excess 10.1 H ABG Hemoglobin 9.0 L ABG Carboxyhemoglobin 2.0 H POC ABG HHb (Measured) 0.3 ABG Methemoglobin 1.1 Ming Test Pos A-a O2 Difference 119.0 Respiratory Index 1.1 Hgb O2 Saturation 96.6 Vent Mode Prvc Mechanical Rate 12 FiO2 40.0 Tidal Volume 450 PEEP 5 Sodium 142 Potassium 3.5 L Chloride 100 Carbon Dioxide 31 H Anion Gap 15 BUN 14 Creatinine 0.7 Est GFR ( Amer) > 60 Est GFR (Non-Af Amer) > 60 POC Glucose (mg/dL) 96 Random Glucose 80 Calcium 8.4 L Phosphorus 3.7 Magnesium 1.6 Total Bilirubin 0.4 AST 17 ALT 21 Alkaline Phosphatase 36 L Total Protein 5.1 L Albumin 2.9 L Globulin 2.3 Albumin/Globulin Ratio 1.3 Procalcitonin IgG IgA IgM Anti-ss DNA IgG Ab 05/10/17 05/10/17 05/10/17 06:31 11:43 12:41 WBC 25.1 H RBC 3.24 L Hgb 8.3 L Hct 26.8 L MCV 82.8 MCH 25.7 L MCHC 31.1 L RDW 19.3 H Plt Count 253 MPV 8.3 Neut % (Auto) 79.6 H Lymph % (Auto) 12.7 L [place] % (Auto) 4.9 Eos % (Auto) 2.6 Baso % (Auto) 0.2 Neut # 20.0 H Lymph # 3.2 [place] # 1.2 H Eos # 0.7 Baso # 0.1 Puncture Site pCO2 pO2 HCO3 ABG pH ABG Total CO2 ABG O2 Saturation ABG Base Excess ABG Hemoglobin ABG Carboxyhemoglobin POC ABG HHb (Measured) ABG Methemoglobin Ming Test A-a O2 Difference Respiratory Index Hgb O2 Saturation Vent Mode Mechanical Rate FiO2 Tidal Volume PEEP Sodium Potassium Chloride Carbon Dioxide Anion Gap BUN Creatinine Est GFR ( Amer) Est GFR (Non-Af Amer) POC Glucose (mg/dL) 136 H Random Glucose Calcium Phosphorus Magnesium Total Bilirubin AST ALT Alkaline Phosphatase Total Protein Albumin Globulin Albumin/Globulin Ratio Procalcitonin 0.16 L IgG IgA IgM Anti-ss DNA IgG Ab Attending/Attestation - Attestation I have personally seen and examined this patient.: Yes I have fully participated in the care of the patient.: Yes I have reviewed all pertinent clinical information: Yes Notes (Text): 05/10/17 17:57 Today: Wednesday, May 10, 2017 The patient was Seen/interviewed and examined by me at the bedside during ICU round, Medical records reviewed and Management issues were discussed and formulated with the house staff. I have reviewed all the relevant clinical, laboratory, hemodynamic, radiographic data and medications Pain issues, skin care, head of the bed elevation, glycemic control were addressed. I concur with resident's assessment and plan of care as transcribed in Dr. Myers note I was present for the castañeda/critical components of the service performed by the resident/fellow.
[2017-05-10 16:50] LABS: IGG,SERUM 1155 mg/dL (694-1618); IGM,SERUM 60 mg/dL (48-271)
--- NOTE | 2017-05-10 18:15 | PN ---
DATE OF EVALUATION: 05/10/2017 TIME OF EVALUATION: 7:05 a.m. 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 PHYSICAL EXAMINATION VITAL SIGNS: Blood pressure 121/62, mean arterial pressure of 72, respiratory rate 22 on vent, pulse rate 95 regular. The patient is status post one plasmapheresis, which was done on Wednesday. GENERAL: The patient is more awake. The patient is reassured. She is comprehended, amicable, showing signs. EXTREMITIES: She is moving both upper extremities against gravity from the elbow down. Shoulder proximal weakness is noted. First time she is wiggling her toes and she is lifting her leg against gravity left side about 5 to 10 degree; right side, she could not able to lift; however, she was able to move her toes as well as foot up and down voluntarily. Deep tendon reflexes absent. Plantars are mute. LABORATORY TEXT: Blood workup: WBC 25.1, hemoglobin 8.3, hematocrit 26.8, platelet 253. Blood gas is 7.47, oxygen PO2 of 106, PCO2 of 48, Sodium 142, potassium 3.5, chloride 100, bicarbonate 31, BUN 14, creatinine 0.7, GFR more than 60, calcium 8.4, alkaline phosphatase 36, protein 5.1, albumin 5.1, globulin 2.9. The patient had serum immunofixation, showed monoclonal gammopathy. LUPE 1:40. Rheumatoid arthritis negative. Urine fixation shows lambda chain, dense polyclonal background. Thyroperoxidase 568. Cholinesterase antibodies are negative. Antiphospholipid is negative. Lyme screen less than 0.90. CMV negative. West Nile virus antibodies negative. HIV negative. CONCLUSION: The patient is on plasmapheresis. I am recommending exchange of 0.5 L every other day x5. The patient had one exchange on Wednesday. The patient shows some clinical improvement after plasmapheresis, this is 48-hour period. After her plasmapheresis, she is moving her arms better than before as well as movement of her legs also seen. Continue the current recommendation. Following plasma exchange. I strongly recommend her she should be on intravenous immunoglobulin. DVT prophylaxis and she should be on weaning parameter. The patient will be followed closely with you. Mario Irvin MD [facility]
[2017-05-10] MEDS ORDERED: DiphenhydrAMINE 50 mg/ml Inj IVP ONE (20:15)
--- NOTE | 2017-05-11 00:02 | CARD ---
APPROVED REPORT EKG Measurement Heart [id number] [id number] <Conclusion> Normal sinus rhythm Cannot rule out Anterior infarct, age undetermined Abnormal ECG
[2017-05-11] MEDS: Piperacill/Tazo 3.375gm in Dex 3.375 GM/50 ML BAG IVPB SCH ×4 (00:56→18:00)
[2017-05-11] MEDS: Albuterol-Ipratrop 3 mg / 0.5 (3 ml) UD INH SCH ×2 (01:37→07:38)
[2017-05-11 03:16] LABS: TOTAL PROTEIN, SERUM 5.2 g/dL (6.1-8.1)
--- NOTE | 2017-05-11 04:29 | CP.PCM.PN ---
Subjective - Date & Time of Evaluation Date of Evaluation: 05/10/17 Time of Evaluation: 20:00 - Subjective Subjective: Vented, awake Receiving 2nd plasma exchange Objective - Vital Signs/Intake and Output Vital Signs (last 24 hours): Temp Pulse Resp BP Pulse Ox 98.2 F 78 15 120/65 99 05/11/17 00:00 05/11/17 02:01 05/11/17 02:01 05/11/17 02:01 05/11/17 02:01 Intake and Output: 05/10/17 05/11/17 18:59 06:59 Intake Total 1387.8 1355 Output Total 2990 1175 Balance -1602.2 180 - Medications Medications: Current Medications Albuterol/Ipratropium (Duoneb 3 Mg/0.5 Mg (3 Ml) Ud) 3 ml INH RQ6 [facility] Last Admin: 05/11/17 01:37 Dose: 3 ml Apixaban (Eliquis) 5 mg PO BID [facility] Last Admin: 05/10/17 17:37 Dose: 5 mg Famotidine (Pepcid) 20 mg PO DAILY [facility] Last Admin: 05/10/17 09:39 Dose: 20 mg Furosemide (Lasix) 40 mg IVP DAILY [facility] Last Admin: 05/10/17 09:40 Dose: 40 mg Piperacillin Sod/Tazobactam Sod (Zosyn 3.375 Gm Iv Premix) 3.375 gm in 50 mls @ 100 mls/hr IVPB Q6H [facility] Last Admin: 05/11/17 00:56 Dose: 100 mls/hr Sodium Chloride (Sodium Chloride 0.9%) 1,000 mls @ 75 mls/hr IV .[id number] [facility] Last Admin: 05/10/17 17:46 Dose: Not Given Albumin Human (Albumin Human 5% (12.5 Gm/250 Ml)) 3,500 mls @ 7.5 mls/min IV ONCE ONE Stop: 05/11/17 04:46 Last Admin: 05/10/17 21:37 Dose: 7.5 mls/min Lorazepam (Ativan) 1 mg IVP ONCE PRN Methylprednisolone (Solu-Medrol) 20 mg IVP BID [facility] Last Admin: 05/10/17 17:37 Dose: 20 mg Morphine Sulfate (Morphine) 2 mg SC Q4 PRN PRN Reason: Pain, moderate (4-7) Last Admin: 05/10/17 22:23 Dose: 2 mg Ondansetron HCl (Zofran Inj) 4 mg IVP Q4 PRN PRN Reason: Nausea/Vomiting - Labs Labs: 05/10/17 06:31 05/10/17 06:29 PT 12.4 SECONDS (9.7-12.2) H 05/05/17 06:40 INR 1.1 05/05/17 06:40 APTT 27 SECONDS (21-34) 05/04/17 06:35 - Head Exam Head Exam: ATRAUMATIC - Eye Exam Eye Exam: Normal appearance - ENT Exam ENT Exam: Mucous Membranes Dry - Respiratory Exam Respiratory Exam: NORMAL BREATHING PATTERN - Cardiovascular Exam Cardiovascular Exam: +S1, +S2 - GI/Abdominal Exam GI & Abdominal Exam: Normal Bowel Sounds Assessment and Plan (1) Guillain Tesfaye syndrome Assessment & Plan: on plasma exchange as prescribed by neurology appears to be improving Status: Acute (2) Anemia Status: Acute (3) Leukocytosis Status: Acute
[2017-05-11] MEDS: Sodium Chloride 0.9% 1,000 ML IV SCH ×3 (05:32→23:00)
[2017-05-11 06:02] LABS: ABG ALLEN TEST POS; ABG MECHANICAL RATE 14; ARTERIAL BLOOD GAS MODE PRVC; ARTERIAL BLOOD HGB O2 SAT 96.1 % (95.0-98.0); ATERIAL BLOOD GAS PEEP 5; CARBOXYHEMOGLOBIN 1.6 % (0.5-1.5); DRAW SITE RR; METHEMOGLOBIN 1.3 % (0.0-3.0)
[2017-05-11 06:53] LABS: BASO # 0.1 K/uL (0.0-0.2); BASO % 0.2 % (0.0-2.0); EOS # 0.3 K/uL (0.0-0.7); EOS % 1.3 % (0.0-4.0); HEMATOCRIT 26.9 % (34.0-47.0); LYMPH # 2.5 K/uL (1.0-4.3); LYMPH % 9.6 % (20.0-40.0); MEAN CELL VOLUME 84.4 fL (81.0-99.0); MEAN CORPUSCULAR HEMOGLOBIN 25.5 pg (27.0-31.0); MEAN CORPUSCULAR HGB CONC 30.2 g/dL (33.0-37.0); MEAN PLATELET VOLUME 8.4 fL (7.2-11.7); MONO % 3.6 % (0.0-10.0); NRBC % 0.1 % (0.0-2.0); PLATELET COUNT 223 K/uL (130-400); WHITE BLOOD COUNT 26.2 K/uL (4.8-10.8)
[2017-05-11 07:10] LABS: ALB/GLOB RATIO 2.1 (1.0-2.1); ALKALINE PHOSPHATASE < 20 U/L (38-126); ALT/SGPT 27 U/L (9-52); AST/SGOT 22 U/L (14-36); BILIRUBIN,TOTAL 0.6 mg/dL (0.2-1.3); BLOOD UREA NITROGEN 18 mg/dL (7-17); CALCIUM 8.5 mg/dl (8.6-10.4); CARBON DIOXIDE 28 mmol/L (22-30); CHLORIDE 103 mmol/L (98-107); GFR AFRICAN-AMERICAN > 60; GLUCOSE,RANDOM 84 mg/dL (65-105); MAGNESIUM 1.7 mg/dL (1.6-2.3); PHOSPHOROUS 3.6 mg/dL (2.5-4.5); POTASSIUM 3.6 mmol/L (3.6-5.2); SODIUM 142 mmol/L (132-148); TOTAL PROTEIN 4.8 g/dL (6.3-8.3)
[2017-05-11 08:41] LABS: NEUTROPHIL 83 % (50-75); TOTAL CELLS COUNTED 100
--- NOTE | 2017-05-11 08:52 | RAD ---
HISTORY: intubated COMPARISON: Portable chest 05/10/2017 FINDINGS: LUNGS: Right central venous line and endotracheal tube are unchanged. Nasogastric tube is obscured with termination not clearly identified but entry into the abdomen once again. Left basilar atelectasis or infiltrate is unchanged with small pleural effusion unchanged as well. No definite right pleural effusion or infiltrate. No pneumothorax. Impression pattern appears normal. Cardiac silhouette unchanged. PLEURA: As above CARDIOVASCULAR: As above OSSEOUS STRUCTURES: No significant abnormalities. VISUALIZED UPPER ABDOMEN: Normal. OTHER FINDINGS: None. IMPRESSION: Stable left basilar infiltrate or atelectasis as well as small pleural effusion.
--- NOTE | 2017-05-11 09:07 | PN ---
NEUROLOGICAL PROBLEM: Acute inflammatory demyelinating polyradiculopathy. PHYSICAL EXAMINATION: VITAL SIGNS: Blood pressure 120/65, mean arterial pressure of 85, respiratory rate of 15 on vent, temperature afebrile; pulse rate 78. GENERAL: The patient is awake, alert, communicable. She follows all commands. The patient did have second plasmapheresis out of 5 was given yesterday. She feels confidence. She is getting better. EXTREMITIES: Both upper extremities, she could have to left both the elbows against the gravity. She moves her lower extremities left more than the right leg. Left leg; she could elevate off the bed. Right leg; she still able to move her toes up and down; ankle up and down by herself on voluntarily she could able to do it. Plantar responds are mute. Deep tendon reflexes are absent. Plantars are down. RECOMMENDATION: Continue the present management. When plasmapheresis finishes, the patient will be scheduled to have intravenous immunoglobulin. Mario Irvin MD [id number]
[2017-05-11] MEDS: MethylPREDNISolone 40 mg Vial IVP SCH (09:44)
[2017-05-11] MEDS ORDERED: Acetaminophen 650mg/20.3ml solution UD PO ONE (10:46)
--- NOTE | 2017-05-11 12:47 | CP.CCUPN ---
<GerardoFernando dominguezri RaoulRenae - Last Filed: 05/11/17 12:44> CCU Subjective - Physician Review Subjective (Free Text): Patient was seen and examined at bedside in the morning. Patient intubated, alert, and able to respond by nodding her head. Patient reports having pain in her sacral region. Patient denies having chest pain, abdominal pain, dizziness, and fevers. 05/11/17 12:44 CCU Objective - Vital Signs / Intake & Output Vital Signs (Last 4 hours): Vital Signs Temp Pulse Resp BP Pulse Ox 05/11/17 12:01 87 21 139/74 100 05/11/17 12:00 98.2 F 87 22 100 05/11/17 11:01 83 14 150/76 99 05/11/17 11:00 87 15 98 05/11/17 10:01 81 13 150/81 99 05/11/17 10:00 83 12 99 05/11/17 09:44 166/89 H 05/11/17 09:01 86 22 166/89 H 100 05/11/17 09:00 90 17 100 Intake and Output (Last 8hrs): Intake & Output 05/10/17 05/11/17 05/11/17 22:59 06:59 14:59 Intake Total 1190 970 620 Output Total 1625 660 970 Balance -435 310 -350 Intake: Intake, IV Amount 870 600 300 Right Distal Port 600 600 300 Internal Jugular Right Medial Port 270 Internal Jugular Tube Feeding 320 320 160 Other 50 160 Output: Urine 1625 660 970 Urethral (Colmenares) 1625 660 970 - Physical Exam Head: Positive for: Atraumatic, Normocephalic Extroacular Muscles: Positive for: EOMI Mouth: Positive for: Moist Mucous Membranes Respiratory/Chest: Positive for: Rales, Rhonchi, Other (intubated). Negative for: Clear to Auscultation, Accessory Muscle Use, Wheezes, Decreased Breath Sounds, Tachypneic Cardiovascular: Positive for: Normal S1, S2. Negative for: Tachycardic, Bradycardic Abdomen: Positive for: Other (Obese). Negative for: Tenderness, Normal Bowel Sounds (hypoactive) Rectal: Positive for: Other (Sacral wound) Upper Extremity: Positive for: Normal Inspection. Negative for: Edema Lower Extremity: Positive for: Edema, Swelling Skin: Positive for: Warm, Dry, Normal Color, Other (sacral wound- copious drainage) Psychiatric: Positive for: Alert. Negative for: Oriented x 3 - Medications Active Medications: Active Medications Generic Name Dose Route Start Last Admin Trade Name Freq PRN Reason Stop Dose Admin Albuterol/Ipratropium 3 ml 05/03/17 02:00 05/11/17 07:38 Duoneb 3 Mg/0.5 Mg (3 Ml) Ud INH 3 ml RQ6 RIK Administration Apixaban 5 mg 05/05/17 16:00 05/11/17 09:44 Eliquis PO 5 mg BID RIK Administration Famotidine 20 mg 05/07/17 10:00 05/11/17 09:43 Pepcid PO 20 mg DAILY RIK Administration Furosemide 40 mg 05/09/17 10:00 05/11/17 09:44 Lasix IVP 40 mg DAILY RIK Administration Piperacillin Sod/Tazobactam Sod 3.375 gm in 50 mls @ 100 mls/hr 05/05/17 19: 00 05/11/17 06:06 Zosyn 3.375 Gm Iv Premix IVPB 100 mls/hr Q6H RIK Administration Sodium Chloride 1,000 mls @ 75 mls/hr 05/08/17 10:00 05/11/17 05:32 Sodium Chloride 0.9% IV 75 mls/hr .[id number] RIK Administration Potassium Chloride 20 meq in 100 mls @ 50 mls/hr 05/11/17 09:30 05/11/17 11: 52 Potassium Chloride 20 Meq/100 Ml IVPB 05/11/17 13:29 50 mls/hr Q2H RIK Administration Lorazepam 1 mg 05/04/17 09:00 Ativan IVP ONCE PRN Methylprednisolone 20 mg 05/11/17 10:00 05/11/17 09:44 Solu-Medrol IVP 20 mg DAILY RIK Administration Ondansetron HCl 4 mg 05/04/17 09:41 Zofran Inj IVP Q4 PRN Nausea/Vomiting - Patient Studies Lab Studies: Lab Studies 05/11/17 05/11/17 05/11/17 Range/Units 11:21 06:44 06:44 WBC 26.2 H (4.8-10.8) K/uL RBC 3.19 L (3.80-5.20) Mil/uL Hgb 8.1 L (11.0-16.0) g/dL Hct 26.9 L (34.0-47.0) % MCV 84.4 (81.0-99.0) fL MCH 25.5 L (27.0-31.0) pg MCHC 30.2 L (33.0-37.0) g/dL RDW 19.0 H (11.5-14.5) % Plt Count 223 (130-400) K/uL MPV 8.4 (7.2-11.7) fL Neut % (Auto) 85.3 H (50.0-75.0) % Lymph % (Auto) 9.6 L (20.0-40.0) % [place] % (Auto) 3.6 (0.0-10.0) % Eos % (Auto) 1.3 (0.0-4.0) % Baso % (Auto) 0.2 (0.0-2.0) % Neut # 22.3 H (1.8-7.0) K/uL Lymph # 2.5 (1.0-4.3) K/uL [place] # 1.0 H (0.0-0.8) K/uL Eos # 0.3 (0.0-0.7) K/uL Baso # 0.1 (0.0-0.2) K/uL Neutrophils % (Manual) 83 H (50-75) % Lymphocytes % (Manual) 13 L (20-40) % Monocytes % (Manual) 4 (0-10) % Platelet Estimate Normal (NORMAL) Polychromasia Slight Hypochromasia (manual) Slight Anisocytosis (manual) Slight Puncture Site pCO2 (35-45) mm/Hg pO2 (80-100) mm/Hg HCO3 (21-28) mmol/L ABG pH (7.35-7.45) ABG Total CO2 (22-28) mmol/L ABG O2 Saturation (95-98) % ABG Base Excess (-2.0-3.0) mmol/L ABG Hemoglobin (11.7-17.4) g/dL ABG Carboxyhemoglobin (0.5-1.5) % POC ABG HHb (Measured) (0.0-5.0) % ABG Methemoglobin (0.0-3.0) % Ming Test A-a O2 Difference mm/Hg Respiratory Index Hgb O2 Saturation (95.0-98.0) % Vent Mode Mechanical Rate FiO2 % Tidal Volume PEEP Sodium 142 (132-148) mmol/L Potassium 3.6 (3.6-5.2) mmol/L Chloride 103 (98-107) mmol/L Carbon Dioxide 28 (22-30) mmol/L Anion Gap 15 (10-20) BUN 18 H (7-17) mg/dL Creatinine 0.5 L (0.7-1.2) MG/DL Est GFR ( Amer) > 60 Est GFR (Non-Af Amer) > 60 POC Glucose (mg/dL) 137 H (65-110) mg/dL Random Glucose 84 (65-105) mg/dL Calcium 8.5 L (8.6-10.4) mg/dl Phosphorus 3.6 (2.5-4.5) mg/dL Magnesium 1.7 (1.6-2.3) mg/dL Total Bilirubin 0.6 (0.2-1.3) mg/dL AST 22 (14-36) U/L ALT 27 (9-52) U/L Alkaline Phosphatase < 20 L D (38-126) U/L Total Protein 4.8 L (6.3-8.3) g/dL Total Protein (PEP) (6.1-8.1) g/dL Albumin 3.2 L (3.5-5.0) g/dL Globulin 1.5 L (2.2-3.9) gm/dL Albumin/Globulin Ratio 2.1 (1.0-2.1) Procalcitonin (0.19-0.49) NG/ML IgG (694-1618) mg/dL IgA (81-463) mg/dL IgM (48-271) mg/dL 05/11/17 05/11/17 05/10/17 Range/Units 05:59 05:42 23:24 WBC (4.8-10.8) K/uL RBC (3.80-5.20) Mil/uL Hgb (11.0-16.0) g/dL Hct (34.0-47.0) % MCV (81.0-99.0) fL MCH (27.0-31.0) pg MCHC (33.0-37.0) g/dL RDW (11.5-14.5) % Plt Count (130-400) K/uL MPV (7.2-11.7) fL Neut % (Auto) (50.0-75.0) % Lymph % (Auto) (20.0-40.0) % [place] % (Auto) (0.0-10.0) % Eos % (Auto) (0.0-4.0) % Baso % (Auto) (0.0-2.0) % Neut # (1.8-7.0) K/uL Lymph # (1.0-4.3) K/uL [place] # (0.0-0.8) K/uL Eos # (0.0-0.7) K/uL Baso # (0.0-0.2) K/uL Neutrophils % (Manual) (50-75) % Lymphocytes % (Manual) (20-40) % Monocytes % (Manual) (0-10) % Platelet Estimate (NORMAL) Polychromasia Hypochromasia (manual) Anisocytosis (manual) Puncture Site Rr pCO2 48 H (35-45) mm/Hg pO2 100 (80-100) mm/Hg HCO3 30.2 H (21-28) mmol/L ABG pH 7.43 (7.35-7.45) ABG Total CO2 33.4 H (22-28) mmol/L ABG O2 Saturation 99.0 H (95-98) % ABG Base Excess 6.8 H (-2.0-3.0) mmol/L ABG Hemoglobin 8.3 L (11.7-17.4) g/dL ABG Carboxyhemoglobin 1.6 H (0.5-1.5) % POC ABG HHb (Measured) 1.0 (0.0-5.0) % ABG Methemoglobin 1.3 (0.0-3.0) % Ming Test Pos A-a O2 Difference 125.0 mm/Hg Respiratory Index 1.3 Hgb O2 Saturation 96.1 (95.0-98.0) % Vent Mode Prvc Mechanical Rate 14 FiO2 40.0 % Tidal Volume 450 PEEP 5 Sodium (132-148) mmol/L Potassium (3.6-5.2) mmol/L Chloride (98-107) mmol/L Carbon Dioxide (22-30) mmol/L Anion Gap (10-20) BUN (7-17) mg/dL Creatinine (0.7-1.2) MG/DL Est GFR ( Amer) Est GFR (Non-Af Amer) POC Glucose (mg/dL) 102 145 H (65-110) mg/dL Random Glucose (65-105) mg/dL Calcium (8.6-10.4) mg/dl Phosphorus (2.5-4.5) mg/dL Magnesium (1.6-2.3) mg/dL Total Bilirubin (0.2-1.3) mg/dL AST (14-36) U/L ALT (9-52) U/L Alkaline Phosphatase (38-126) U/L Total Protein (6.3-8.3) g/dL Total Protein (PEP) (6.1-8.1) g/dL Albumin (3.5-5.0) g/dL Globulin (2.2-3.9) gm/dL Albumin/Globulin Ratio (1.0-2.1) Procalcitonin (0.19-0.49) NG/ML IgG (694-1618) mg/dL IgA (81-463) mg/dL IgM (48-271) mg/dL 05/10/17 05/10/17 05/09/17 Range/Units 17:55 12:41 07:58 WBC (4.8-10.8) K/uL RBC (3.80-5.20) Mil/uL Hgb (11.0-16.0) g/dL Hct (34.0-47.0) % MCV (81.0-99.0) fL MCH (27.0-31.0) pg MCHC (33.0-37.0) g/dL RDW (11.5-14.5) % Plt Count (130-400) K/uL MPV (7.2-11.7) fL Neut % (Auto) (50.0-75.0) % Lymph % (Auto) (20.0-40.0) % [place] % (Auto) (0.0-10.0) % Eos % (Auto) (0.0-4.0) % Baso % (Auto) (0.0-2.0) % Neut # (1.8-7.0) K/uL Lymph # (1.0-4.3) K/uL [place] # (0.0-0.8) K/uL Eos # (0.0-0.7) K/uL Baso # (0.0-0.2) K/uL Neutrophils % (Manual) (50-75) % Lymphocytes % (Manual) (20-40) % Monocytes % (Manual) (0-10) % Platelet Estimate (NORMAL) Polychromasia Hypochromasia (manual) Anisocytosis (manual) Puncture Site pCO2 (35-45) mm/Hg pO2 (80-100) mm/Hg HCO3 (21-28) mmol/L ABG pH (7.35-7.45) ABG Total CO2 (22-28) mmol/L ABG O2 Saturation (95-98) % ABG Base Excess (-2.0-3.0) mmol/L ABG Hemoglobin (11.7-17.4) g/dL ABG Carboxyhemoglobin (0.5-1.5) % POC ABG HHb (Measured) (0.0-5.0) % ABG Methemoglobin (0.0-3.0) % Ming Test A-a O2 Difference mm/Hg Respiratory Index Hgb O2 Saturation (95.0-98.0) % Vent Mode Mechanical Rate FiO2 % Tidal Volume PEEP Sodium (132-148) mmol/L Potassium (3.6-5.2) mmol/L Chloride (98-107) mmol/L Carbon Dioxide (22-30) mmol/L Anion Gap (10-20) BUN (7-17) mg/dL Creatinine (0.7-1.2) MG/DL Est GFR ( Amer) Est GFR (Non-Af Amer) POC Glucose (mg/dL) 147 H (65-110) mg/dL Random Glucose (65-105) mg/dL Calcium (8.6-10.4) mg/dl Phosphorus (2.5-4.5) mg/dL Magnesium (1.6-2.3) mg/dL Total Bilirubin (0.2-1.3) mg/dL AST (14-36) U/L ALT (9-52) U/L Alkaline Phosphatase (38-126) U/L Total Protein (6.3-8.3) g/dL Total Protein (PEP) 5.2 L (6.1-8.1) g/dL Albumin (3.5-5.0) g/dL Globulin (2.2-3.9) gm/dL Albumin/Globulin Ratio (1.0-2.1) Procalcitonin 0.16 L (0.19-0.49) NG/ML IgG (694-1618) mg/dL IgA (81-463) mg/dL IgM (48-271) mg/dL 05/06/17 Range/Units 10:27 WBC (4.8-10.8) K/uL RBC (3.80-5.20) Mil/uL Hgb (11.0-16.0) g/dL Hct (34.0-47.0) % MCV (81.0-99.0) fL MCH (27.0-31.0) pg MCHC (33.0-37.0) g/dL RDW (11.5-14.5) % Plt Count (130-400) K/uL MPV (7.2-11.7) fL Neut % (Auto) (50.0-75.0) % Lymph % (Auto) (20.0-40.0) % [place] % (Auto) (0.0-10.0) % Eos % (Auto) (0.0-4.0) % Baso % (Auto) (0.0-2.0) % Neut # (1.8-7.0) K/uL Lymph # (1.0-4.3) K/uL [place] # (0.0-0.8) K/uL Eos # (0.0-0.7) K/uL Baso # (0.0-0.2) K/uL Neutrophils % (Manual) (50-75) % Lymphocytes % (Manual) (20-40) % Monocytes % (Manual) (0-10) % Platelet Estimate (NORMAL) Polychromasia Hypochromasia (manual) Anisocytosis (manual) Puncture Site pCO2 (35-45) mm/Hg pO2 (80-100) mm/Hg HCO3 (21-28) mmol/L ABG pH (7.35-7.45) ABG Total CO2 (22-28) mmol/L ABG O2 Saturation (95-98) % ABG Base Excess (-2.0-3.0) mmol/L ABG Hemoglobin (11.7-17.4) g/dL ABG Carboxyhemoglobin (0.5-1.5) % POC ABG HHb (Measured) (0.0-5.0) % ABG Methemoglobin (0.0-3.0) % Ming Test A-a O2 Difference mm/Hg Respiratory Index Hgb O2 Saturation (95.0-98.0) % Vent Mode Mechanical Rate FiO2 % Tidal Volume PEEP Sodium (132-148) mmol/L Potassium (3.6-5.2) mmol/L Chloride (98-107) mmol/L Carbon Dioxide (22-30) mmol/L Anion Gap (10-20) BUN (7-17) mg/dL Creatinine (0.7-1.2) MG/DL Est GFR ( Amer) Est GFR (Non-Af Amer) POC Glucose (mg/dL) (65-110) mg/dL Random Glucose (65-105) mg/dL Calcium (8.6-10.4) mg/dl Phosphorus (2.5-4.5) mg/dL Magnesium (1.6-2.3) mg/dL Total Bilirubin (0.2-1.3) mg/dL AST (14-36) U/L ALT (9-52) U/L Alkaline Phosphatase (38-126) U/L Total Protein (6.3-8.3) g/dL Total Protein (PEP) (6.1-8.1) g/dL Albumin (3.5-5.0) g/dL Globulin (2.2-3.9) gm/dL Albumin/Globulin Ratio (1.0-2.1) Procalcitonin (0.19-0.49) NG/ML IgG 1155 (694-1618) mg/dL IgA 410 (81-463) mg/dL IgM 60 (48-271) mg/dL Laboratory Results - last 24 hr 05/06/17 05/09/17 05/10/17 10:27 07:58 12:41 WBC RBC Hgb Hct MCV MCH MCHC RDW Plt Count MPV Neut % (Auto) Lymph % (Auto) [place] % (Auto) Eos % (Auto) Baso % (Auto) Neut # Lymph # [place] # Eos # Baso # Neutrophils % (Manual) Lymphocytes % (Manual) Monocytes % (Manual) Platelet Estimate Polychromasia Hypochromasia (manual) Anisocytosis (manual) Puncture Site pCO2 pO2 HCO3 ABG pH ABG Total CO2 ABG O2 Saturation ABG Base Excess ABG Hemoglobin ABG Carboxyhemoglobin POC ABG HHb (Measured) ABG Methemoglobin Ming Test A-a O2 Difference Respiratory Index Hgb O2 Saturation Vent Mode Mechanical Rate FiO2 Tidal Volume PEEP Sodium Potassium Chloride Carbon Dioxide Anion Gap BUN Creatinine Est GFR ( Amer) Est GFR (Non-Af Amer) POC Glucose (mg/dL) Random Glucose Calcium Phosphorus Magnesium Total Bilirubin AST ALT Alkaline Phosphatase Total Protein Total Protein (PEP) 5.2 L Albumin Globulin Albumin/Globulin Ratio Procalcitonin 0.16 L IgG 1155 IgA 410 IgM 60 05/10/17 05/10/17 05/11/17 17:55 23:24 05:42 WBC RBC Hgb Hct MCV MCH MCHC RDW Plt Count MPV Neut % (Auto) Lymph % (Auto) [place] % (Auto) Eos % (Auto) Baso % (Auto) Neut # Lymph # [place] # Eos # Baso # Neutrophils % (Manual) Lymphocytes % (Manual) Monocytes % (Manual) Platelet Estimate Polychromasia Hypochromasia (manual) Anisocytosis (manual) Puncture Site Rr pCO2 48 H pO2 100 HCO3 30.2 H ABG pH 7.43 ABG Total CO2 33.4 H ABG O2 Saturation 99.0 H ABG Base Excess 6.8 H ABG Hemoglobin 8.3 L ABG Carboxyhemoglobin 1.6 H POC ABG HHb (Measured) 1.0 ABG Methemoglobin 1.3 Ming Test Pos A-a O2 Difference 125.0 Respiratory Index 1.3 Hgb O2 Saturation 96.1 Vent Mode Prvc Mechanical Rate 14 FiO2 40.0 Tidal Volume 450 PEEP 5 Sodium Potassium Chloride Carbon Dioxide Anion Gap BUN Creatinine Est GFR ( Amer) Est GFR (Non-Af Amer) POC Glucose (mg/dL) 147 H 145 H Random Glucose Calcium Phosphorus Magnesium Total Bilirubin AST ALT Alkaline Phosphatase Total Protein Total Protein (PEP) Albumin Globulin Albumin/Globulin Ratio Procalcitonin IgG IgA IgM 05/11/17 05/11/17 05/11/17 05:59 06:44 06:44 WBC 26.2 H RBC 3.19 L Hgb 8.1 L Hct 26.9 L MCV 84.4 MCH 25.5 L MCHC 30.2 L RDW 19.0 H Plt Count 223 MPV 8.4 Neut % (Auto) 85.3 H Lymph % (Auto) 9.6 L [place] % (Auto) 3.6 Eos % (Auto) 1.3 Baso % (Auto) 0.2 Neut # 22.3 H Lymph # 2.5 [place] # 1.0 H Eos # 0.3 Baso # 0.1 Neutrophils % (Manual) 83 H Lymphocytes % (Manual) 13 L Monocytes % (Manual) 4 Platelet Estimate Normal Polychromasia Slight Hypochromasia (manual) Slight Anisocytosis (manual) Slight Puncture Site pCO2 pO2 HCO3 ABG pH ABG Total CO2 ABG O2 Saturation ABG Base Excess ABG Hemoglobin ABG Carboxyhemoglobin POC ABG HHb (Measured) ABG Methemoglobin Ming Test A-a O2 Difference Respiratory Index Hgb O2 Saturation Vent Mode Mechanical Rate FiO2 Tidal Volume PEEP Sodium 142 Potassium 3.6 Chloride 103 Carbon Dioxide 28 Anion Gap 15 BUN 18 H Creatinine 0.5 L Est GFR ( Amer) > 60 Est GFR (Non-Af Amer) > 60 POC Glucose (mg/dL) 102 Random Glucose 84 Calcium 8.5 L Phosphorus 3.6 Magnesium 1.7 Total Bilirubin 0.6 AST 22 ALT 27 Alkaline Phosphatase < 20 L D Total Protein 4.8 L Total Protein (PEP) Albumin 3.2 L Globulin 1.5 L Albumin/Globulin Ratio 2.1 Procalcitonin IgG IgA IgM 05/11/17 11:21 WBC RBC Hgb Hct MCV MCH MCHC RDW Plt Count MPV Neut % (Auto) Lymph % (Auto) [place] % (Auto) Eos % (Auto) Baso % (Auto) Neut # Lymph # [place] # Eos # Baso # Neutrophils % (Manual) Lymphocytes % (Manual) Monocytes % (Manual) Platelet Estimate Polychromasia Hypochromasia (manual) Anisocytosis (manual) Puncture Site pCO2 pO2 HCO3 ABG pH ABG Total CO2 ABG O2 Saturation ABG Base Excess ABG Hemoglobin ABG Carboxyhemoglobin POC ABG HHb (Measured) ABG Methemoglobin Ming Test A-a O2 Difference Respiratory Index Hgb O2 Saturation Vent Mode Mechanical Rate FiO2 Tidal Volume PEEP Sodium Potassium Chloride Carbon Dioxide Anion Gap BUN Creatinine Est GFR ( Amer) Est GFR (Non-Af Amer) POC Glucose (mg/dL) 137 H Random Glucose Calcium Phosphorus Magnesium Total Bilirubin AST ALT Alkaline Phosphatase Total Protein Total Protein (PEP) Albumin Globulin Albumin/Globulin Ratio Procalcitonin IgG IgA IgM Fingerstick Blood Sugar Results: 137 Assessment/Plan - Assessment and Plan (Free Text) Assessment: 60-year-old female with history of anxiety, depression, chronic back pain, possible obstructive sleep apnea, COPD, was brought in by the family members because of altered mental status. Patient is hypotensive and septic. Patient has sacral wound, likely cause of sepsis. Patient went to the OR today for I/D of sacral wound. Wound vac in place. Wound culture came back positive for proteus mirabilis, group c strep-- continue Primaxin and vanco. Patient has new onset of a-fib, started cardizem drip on 05/05/17. Patient was in respiratory distress on 05/06/17 and intubated. 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 Patient had second (out of 5 total) plasmapheresis on 05/10/17. Patient was extubated Neuro: - Alert - Neurology consulted: Dr. Irvin, help appreciated - MRI: patient refused - As per neurology, patient had 1 dose of IVIG. 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 - Cotinue ventimask 40% and Duonebs - Monitor ABG CV: hypotensive, new onset A-Fib - Secondary to sepsis - Hx of DVT (6 weeks prior)--> Continue Eliquis 5mg PO - Venous dopplers: DVT in Right deep popliteal and left common femoral, femoral , and popliteal. - Cardizem drip for A-fib Endo: no acute issues GI: Tube feeding - Pepcid daily : no acute issues - UA: 1+ protein & blood, 4 Urobilinogen, 23 WBC, 8 RBC, Few bacteria. Heme: anemic - Continue to monitor H/H - Heme/onc consulted for plasmapheresis- Dr Morales, help appreciated - Surgical team placed dialysis catheter in right femoral for plasmapheresis treatments--> received first treatment on 05/07/18. As per neuro, patient requires a total of 5 treatments. - Scheduled for 3rd plasma exchange 05/12/17 Renal: - Elevated BUN/Cr--> 18/0.5 - Monitor renal function - Hypokalemia: improved, gave KCl 40mEq; continue to monitor - Hypomagnesemia: Resolved ID: Sepsis, leukocytosis, bandemia - ID consulted: Dr. Ornelas, help appreciated - Sacral wound- Proteus Mirabilis, Group C strep - Surgery consulted: Dr. Almaraz, help appreciated - Patients sacral wound- I&D with wound vac (vac changed q3days) - Continue Zosyn - Wound care - C. Diff: negative Prophylaxis: - DVT: Eliquis, SCDs - GI: Pepcid daily - PT/OT <Howard Quiñones - Last Filed: 05/11/17 18:23> CCU Objective - Vital Signs / Intake & Output Vital Signs (Last 4 hours): Vital Signs Pulse Resp BP Pulse Ox 05/11/17 17:02 92 H 19 133/66 99 05/11/17 17:00 88 23 99 05/11/17 16:01 83 20 130/68 98 05/11/17 16:00 81 21 98 05/11/17 15:01 85 22 136/79 98 05/11/17 15:00 87 22 98 Intake and Output (Last 8hrs): Intake & Output 05/11/17 05/11/17 05/11/17 06:59 14:59 22:59 Intake Total 970 620 Output Total 660 970 Balance 310 -350 Weight 250 lb 0.067 oz Intake: Intake, IV Amount 600 300 Right Distal Port 600 300 Internal Jugular Tube Feeding 320 160 Other 50 160 Output: Urine 660 970 Urethral (Colmenares) 660 970 - Medications Active Medications: Active Medications Generic Name Dose Route Start Last Admin Trade Name Freq PRN Reason Stop Dose Admin Albuterol/Ipratropium 3 ml 05/03/17 02:00 05/11/17 07:38 Duoneb 3 Mg/0.5 Mg (3 Ml) Ud INH 3 ml RQ6 RIK Administration Apixaban 5 mg 05/05/17 16:00 05/11/17 17:55 Eliquis PO 5 mg BID RIK Administration Famotidine 20 mg 05/07/17 10:00 05/11/17 09:43 Pepcid PO 20 mg DAILY RIK Administration Furosemide 40 mg 05/09/17 10:00 05/11/17 09:44 Lasix IVP 40 mg DAILY RIK Administration Piperacillin Sod/Tazobactam Sod 3.375 gm in 50 mls @ 100 mls/hr 05/05/17 19: 00 05/11/17 18:00 Zosyn 3.375 Gm Iv Premix IVPB 100 mls/hr Q6H RIK Administration Sodium Chloride 1,000 mls @ 75 mls/hr 05/08/17 10:00 05/11/17 05:32 Sodium Chloride 0.9% IV 75 mls/hr .[id number] RIK Administration Lorazepam 1 mg 05/04/17 09:00 Ativan IVP ONCE PRN Methylprednisolone 20 mg 05/11/17 10:00 05/11/17 09:44 Solu-Medrol IVP 20 mg DAILY RIK Administration Morphine Sulfate 2 mg 05/11/17 13:24 05/11/17 13:55 Morphine IV 2 mg Q6 PRN Administration Pain, moderate (4-7) Ondansetron HCl 4 mg 05/04/17 09:41 Zofran Inj IVP Q4 PRN Nausea/Vomiting - Patient Studies Lab Studies: Lab Studies 05/11/17 05/11/17 05/11/17 Range/Units 11:21 06:44 06:44 WBC 26.2 H (4.8-10.8) K/uL RBC 3.19 L (3.80-5.20) Mil/uL Hgb 8.1 L (11.0-16.0) g/dL Hct 26.9 L (34.0-47.0) % MCV 84.4 (81.0-99.0) fL MCH 25.5 L (27.0-31.0) pg MCHC 30.2 L (33.0-37.0) g/dL RDW 19.0 H (11.5-14.5) % Plt Count 223 (130-400) K/uL MPV 8.4 (7.2-11.7) fL Neut % (Auto) 85.3 H (50.0-75.0) % Lymph % (Auto) 9.6 L (20.0-40.0) % [place] % (Auto) 3.6 (0.0-10.0) % Eos % (Auto) 1.3 (0.0-4.0) % Baso % (Auto) 0.2 (0.0-2.0) % Neut # 22.3 H (1.8-7.0) K/uL Lymph # 2.5 (1.0-4.3) K/uL [place] # 1.0 H (0.0-0.8) K/uL Eos # 0.3 (0.0-0.7) K/uL Baso # 0.1 (0.0-0.2) K/uL Neutrophils % (Manual) 83 H (50-75) % Lymphocytes % (Manual) 13 L (20-40) % Monocytes % (Manual) 4 (0-10) % Platelet Estimate Normal (NORMAL) Polychromasia Slight Hypochromasia (manual) Slight Anisocytosis (manual) Slight Puncture Site pCO2 (35-45) mm/Hg pO2 (80-100) mm/Hg HCO3 (21-28) mmol/L ABG pH (7.35-7.45) ABG Total CO2 (22-28) mmol/L ABG O2 Saturation (95-98) % ABG Base Excess (-2.0-3.0) mmol/L ABG Hemoglobin (11.7-17.4) g/dL ABG Carboxyhemoglobin (0.5-1.5) % POC ABG HHb (Measured) (0.0-5.0) % ABG Methemoglobin (0.0-3.0) % Ming Test A-a O2 Difference mm/Hg Respiratory Index Hgb O2 Saturation (95.0-98.0) % Vent Mode Mechanical Rate FiO2 % Tidal Volume PEEP Sodium 142 (132-148) mmol/L Potassium 3.6 (3.6-5.2) mmol/L Chloride 103 (98-107) mmol/L Carbon Dioxide 28 (22-30) mmol/L Anion Gap 15 (10-20) BUN 18 H (7-17) mg/dL Creatinine 0.5 L (0.7-1.2) MG/DL Est GFR ( Amer) > 60 Est GFR (Non-Af Amer) > 60 POC Glucose (mg/dL) 137 H (65-110) mg/dL Random Glucose 84 (65-105) mg/dL Calcium 8.5 L (8.6-10.4) mg/dl Phosphorus 3.6 (2.5-4.5) mg/dL Magnesium 1.7 (1.6-2.3) mg/dL Total Bilirubin 0.6 (0.2-1.3) mg/dL AST 22 (14-36) U/L ALT 27 (9-52) U/L Alkaline Phosphatase < 20 L D (38-126) U/L Total Protein 4.8 L (6.3-8.3) g/dL Total Protein (PEP) (6.1-8.1) g/dL Albumin 3.2 L (3.5-5.0) g/dL Globulin 1.5 L (2.2-3.9) gm/dL Albumin/Globulin Ratio 2.1 (1.0-2.1) 05/11/17 05/11/17 05/10/17 Range/Units 05:59 05:42 23:24 WBC (4.8-10.8) K/uL RBC (3.80-5.20) Mil/uL Hgb (11.0-16.0) g/dL Hct (34.0-47.0) % MCV (81.0-99.0) fL MCH (27.0-31.0) pg MCHC (33.0-37.0) g/dL RDW (11.5-14.5) % Plt Count (130-400) K/uL MPV (7.2-11.7) fL Neut % (Auto) (50.0-75.0) % Lymph % (Auto) (20.0-40.0) % [place] % (Auto) (0.0-10.0) % Eos % (Auto) (0.0-4.0) % Baso % (Auto) (0.0-2.0) % Neut # (1.8-7.0) K/uL Lymph # (1.0-4.3) K/uL [place] # (0.0-0.8) K/uL Eos # (0.0-0.7) K/uL Baso # (0.0-0.2) K/uL Neutrophils % (Manual) (50-75) % Lymphocytes % (Manual) (20-40) % Monocytes % (Manual) (0-10) % Platelet Estimate (NORMAL) Polychromasia Hypochromasia (manual) Anisocytosis (manual) Puncture Site Rr pCO2 48 H (35-45) mm/Hg pO2 100 (80-100) mm/Hg HCO3 30.2 H (21-28) mmol/L ABG pH 7.43 (7.35-7.45) ABG Total CO2 33.4 H (22-28) mmol/L ABG O2 Saturation 99.0 H (95-98) % ABG Base Excess 6.8 H (-2.0-3.0) mmol/L ABG Hemoglobin 8.3 L (11.7-17.4) g/dL ABG Carboxyhemoglobin 1.6 H (0.5-1.5) % POC ABG HHb (Measured) 1.0 (0.0-5.0) % ABG Methemoglobin 1.3 (0.0-3.0) % Ming Test Pos A-a O2 Difference 125.0 mm/Hg Respiratory Index 1.3 Hgb O2 Saturation 96.1 (95.0-98.0) % Vent Mode Prvc Mechanical Rate 14 FiO2 40.0 % Tidal Volume 450 PEEP 5 Sodium (132-148) mmol/L Potassium (3.6-5.2) mmol/L Chloride (98-107) mmol/L Carbon Dioxide (22-30) mmol/L Anion Gap (10-20) BUN (7-17) mg/dL Creatinine (0.7-1.2) MG/DL Est GFR ( Amer) Est GFR (Non-Af Amer) POC Glucose (mg/dL) 102 145 H (65-110) mg/dL Random Glucose (65-105) mg/dL Calcium (8.6-10.4) mg/dl Phosphorus (2.5-4.5) mg/dL Magnesium (1.6-2.3) mg/dL Total Bilirubin (0.2-1.3) mg/dL AST (14-36) U/L ALT (9-52) U/L Alkaline Phosphatase (38-126) U/L Total Protein (6.3-8.3) g/dL Total Protein (PEP) (6.1-8.1) g/dL Albumin (3.5-5.0) g/dL Globulin (2.2-3.9) gm/dL Albumin/Globulin Ratio (1.0-2.1) 05/09/17 Range/Units 07:58 WBC (4.8-10.8) K/uL RBC (3.80-5.20) Mil/uL Hgb (11.0-16.0) g/dL Hct (34.0-47.0) % MCV (81.0-99.0) fL MCH (27.0-31.0) pg MCHC (33.0-37.0) g/dL RDW (11.5-14.5) % Plt Count (130-400) K/uL MPV (7.2-11.7) fL Neut % (Auto) (50.0-75.0) % Lymph % (Auto) (20.0-40.0) % [place] % (Auto) (0.0-10.0) % Eos % (Auto) (0.0-4.0) % Baso % (Auto) (0.0-2.0) % Neut # (1.8-7.0) K/uL Lymph # (1.0-4.3) K/uL [place] # (0.0-0.8) K/uL Eos # (0.0-0.7) K/uL Baso # (0.0-0.2) K/uL Neutrophils % (Manual) (50-75) % Lymphocytes % (Manual) (20-40) % Monocytes % (Manual) (0-10) % Platelet Estimate (NORMAL) Polychromasia Hypochromasia (manual) Anisocytosis (manual) Puncture Site pCO2 (35-45) mm/Hg pO2 (80-100) mm/Hg HCO3 (21-28) mmol/L ABG pH (7.35-7.45) ABG Total CO2 (22-28) mmol/L ABG O2 Saturation (95-98) % ABG Base Excess (-2.0-3.0) mmol/L ABG Hemoglobin (11.7-17.4) g/dL ABG Carboxyhemoglobin (0.5-1.5) % POC ABG HHb (Measured) (0.0-5.0) % ABG Methemoglobin (0.0-3.0) % Ming Test A-a O2 Difference mm/Hg Respiratory Index Hgb O2 Saturation (95.0-98.0) % Vent Mode Mechanical Rate FiO2 % Tidal Volume PEEP Sodium (132-148) mmol/L Potassium (3.6-5.2) mmol/L Chloride (98-107) mmol/L Carbon Dioxide (22-30) mmol/L Anion Gap (10-20) BUN (7-17) mg/dL Creatinine (0.7-1.2) MG/DL Est GFR ( Amer) Est GFR (Non-Af Amer) POC Glucose (mg/dL) (65-110) mg/dL Random Glucose (65-105) mg/dL Calcium (8.6-10.4) mg/dl Phosphorus (2.5-4.5) mg/dL Magnesium (1.6-2.3) mg/dL Total Bilirubin (0.2-1.3) mg/dL AST (14-36) U/L ALT (9-52) U/L Alkaline Phosphatase (38-126) U/L Total Protein (6.3-8.3) g/dL Total Protein (PEP) 5.2 L (6.1-8.1) g/dL Albumin (3.5-5.0) g/dL Globulin (2.2-3.9) gm/dL Albumin/Globulin Ratio (1.0-2.1) Laboratory Results - last 24 hr 05/09/17 05/10/17 05/11/17 07:58 23:24 05:42 WBC RBC Hgb Hct MCV MCH MCHC RDW Plt Count MPV Neut % (Auto) Lymph % (Auto) [place] % (Auto) Eos % (Auto) Baso % (Auto) Neut # Lymph # [place] # Eos # Baso # Neutrophils % (Manual) Lymphocytes % (Manual) Monocytes % (Manual) Platelet Estimate Polychromasia Hypochromasia (manual) Anisocytosis (manual) Puncture Site Rr pCO2 48 H pO2 100 HCO3 30.2 H ABG pH 7.43 ABG Total CO2 33.4 H ABG O2 Saturation 99.0 H ABG Base Excess 6.8 H ABG Hemoglobin 8.3 L ABG Carboxyhemoglobin 1.6 H POC ABG HHb (Measured) 1.0 ABG Methemoglobin 1.3 Ming Test Pos A-a O2 Difference 125.0 Respiratory Index 1.3 Hgb O2 Saturation 96.1 Vent Mode Prvc Mechanical Rate 14 FiO2 40.0 Tidal Volume 450 PEEP 5 Sodium Potassium Chloride Carbon Dioxide Anion Gap BUN Creatinine Est GFR ( Amer) Est GFR (Non-Af Amer) POC Glucose (mg/dL) 145 H Random Glucose Calcium Phosphorus Magnesium Total Bilirubin AST ALT Alkaline Phosphatase Total Protein Total Protein (PEP) 5.2 L Albumin Globulin Albumin/Globulin Ratio 05/11/17 05/11/17 05/11/17 05:59 06:44 06:44 WBC 26.2 H RBC 3.19 L Hgb 8.1 L Hct 26.9 L MCV 84.4 MCH 25.5 L MCHC 30.2 L RDW 19.0 H Plt Count 223 MPV 8.4 Neut % (Auto) 85.3 H Lymph % (Auto) 9.6 L [place] % (Auto) 3.6 Eos % (Auto) 1.3 Baso % (Auto) 0.2 Neut # 22.3 H Lymph # 2.5 [place] # 1.0 H Eos # 0.3 Baso # 0.1 Neutrophils % (Manual) 83 H Lymphocytes % (Manual) 13 L Monocytes % (Manual) 4 Platelet Estimate Normal Polychromasia Slight Hypochromasia (manual) Slight Anisocytosis (manual) Slight Puncture Site pCO2 pO2 HCO3 ABG pH ABG Total CO2 ABG O2 Saturation ABG Base Excess ABG Hemoglobin ABG Carboxyhemoglobin POC ABG HHb (Measured) ABG Methemoglobin Ming Test A-a O2 Difference Respiratory Index Hgb O2 Saturation Vent Mode Mechanical Rate FiO2 Tidal Volume PEEP Sodium 142 Potassium 3.6 Chloride 103 Carbon Dioxide 28 Anion Gap 15 BUN 18 H Creatinine 0.5 L Est GFR ( Amer) > 60 Est GFR (Non-Af Amer) > 60 POC Glucose (mg/dL) 102 Random Glucose 84 Calcium 8.5 L Phosphorus 3.6 Magnesium 1.7 Total Bilirubin 0.6 AST 22 ALT 27 Alkaline Phosphatase < 20 L D Total Protein 4.8 L Total Protein (PEP) Albumin 3.2 L Globulin 1.5 L Albumin/Globulin Ratio 2.1 05/11/17 11:21 WBC RBC Hgb Hct MCV MCH MCHC RDW Plt Count MPV Neut % (Auto) Lymph % (Auto) [place] % (Auto) Eos % (Auto) Baso % (Auto) Neut # Lymph # [place] # Eos # Baso # Neutrophils % (Manual) Lymphocytes % (Manual) Monocytes % (Manual) Platelet Estimate Polychromasia Hypochromasia (manual) Anisocytosis (manual) Puncture Site pCO2 pO2 HCO3 ABG pH ABG Total CO2 ABG O2 Saturation ABG Base Excess ABG Hemoglobin ABG Carboxyhemoglobin POC ABG HHb (Measured) ABG Methemoglobin Ming Test A-a O2 Difference Respiratory Index Hgb O2 Saturation Vent Mode Mechanical Rate FiO2 Tidal Volume PEEP Sodium Potassium Chloride Carbon Dioxide Anion Gap BUN Creatinine Est GFR ( Amer) Est GFR (Non-Af Amer) POC Glucose (mg/dL) 137 H Random Glucose Calcium Phosphorus Magnesium Total Bilirubin AST ALT Alkaline Phosphatase Total Protein Total Protein (PEP) Albumin Globulin Albumin/Globulin Ratio Critical Care Progress Note - Nutrition Nutrition: Nutrition Category Date Time Status Heart Healthy Diet [DIET] Diets 05/11/17 Dinner Active Assessment/Plan (1) Sepsis Current Visit: Yes Status: Acute Comment: Continue antibiotics Status post wound VAC placement 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 (2) Altered mental status Current Visit: No Status: Acute (3) Hypotension Current Visit: Yes Status: Acute (4) COPD (chronic obstructive pulmonary disease) Current Visit: No Status: Chronic Comment: Continue nebulizer treatments and steroids (5) OPHELIA (obstructive sleep apnea) Current Visit: No Status: Chronic Comment: obstructive sleep apnea versus obesity hypoventilation syndrome Attending/Attestation - Attestation I have personally seen and examined this patient.: Yes I have fully participated in the care of the patient.: Yes I have reviewed all pertinent clinical information: Yes Notes (Text): 05/11/17 18:22 Patient seen and examined in the intensive care unit. Case discussed with house staff in the morning rounds. Extubated after a weaning trial Awake responses in no respiratory distress Good urine output On plasmapheresis Continue antibiotics as per infectious disease Continue anticoagulation for DVT Continue nebulizer treatment and taper steroids
--- NOTE | 2017-05-11 16:32 | CP.PCM.PN ---
Subjective - Date & Time of Evaluation Date of Evaluation: 05/11/17 Time of Evaluation: 16:32 Objective - Vital Signs/Intake and Output Vital Signs (last 24 hours): Temp Pulse Resp BP Pulse Ox 98.2 F 87 21 139/74 100 05/11/17 12:00 05/11/17 12:01 05/11/17 12:01 05/11/17 12:01 05/11/17 12:01 Intake and Output: 05/11/17 05/11/17 06:59 18:59 Intake Total 1700 620 Output Total 1335 970 Balance 365 -350 - Medications Medications: Current Medications Albuterol/Ipratropium (Duoneb 3 Mg/0.5 Mg (3 Ml) Ud) 3 ml INH RQ6 [facility] Last Admin: 05/11/17 07:38 Dose: 3 ml Apixaban (Eliquis) 5 mg PO BID [facility] Last Admin: 05/11/17 09:44 Dose: 5 mg Famotidine (Pepcid) 20 mg PO DAILY [facility] Last Admin: 05/11/17 09:43 Dose: 20 mg Furosemide (Lasix) 40 mg IVP DAILY [facility] Last Admin: 05/11/17 09:44 Dose: 40 mg Piperacillin Sod/Tazobactam Sod (Zosyn 3.375 Gm Iv Premix) 3.375 gm in 50 mls @ 100 mls/hr IVPB Q6H [facility] Last Admin: 05/11/17 13:49 Dose: 100 mls/hr Sodium Chloride (Sodium Chloride 0.9%) 1,000 mls @ 75 mls/hr IV .[id number] [facility] Last Admin: 05/11/17 05:32 Dose: 75 mls/hr Lorazepam (Ativan) 1 mg IVP ONCE PRN Methylprednisolone (Solu-Medrol) 20 mg IVP DAILY [facility] Last Admin: 05/11/17 09:44 Dose: 20 mg Morphine Sulfate (Morphine) 2 mg IV Q6 PRN PRN Reason: Pain, moderate (4-7) Last Admin: 05/11/17 13:55 Dose: 2 mg Ondansetron HCl (Zofran Inj) 4 mg IVP Q4 PRN PRN Reason: Nausea/Vomiting - Labs Labs: 05/11/17 06:44 05/11/17 06:44 PT 12.4 SECONDS (9.7-12.2) H 05/05/17 06:40 INR 1.1 05/05/17 06:40 APTT 27 SECONDS (21-34) 05/04/17 06:35
[2017-05-11 21:07] LABS: ABNORMAL PROTEIN BAND 1 0.14 g/dL (None Detected); BETA 1 GLOBULIN 0.3 g/dL (0.4-0.6); BETA 2 GLOBULIN 0.2 g/dL (0.2-0.5); GAMMA GLOBULIN 0.7 g/dL (0.8-1.7)
[2017-05-12] MEDS: Piperacill/Tazo 3.375gm in Dex 3.375 GM/50 ML BAG IVPB SCH ×4 (02:00→18:01)
[2017-05-12 06:12] LABS: BASO % 0.2 % (0.0-2.0); EOS # 1.3 K/uL (0.0-0.7); EOS % 4.7 % (0.0-4.0); HEMATOCRIT 27.3 % (34.0-47.0); LYMPH # 3.3 K/uL (1.0-4.3); LYMPH % 12.1 % (20.0-40.0); MEAN CELL VOLUME 84.9 fL (81.0-99.0); MEAN CORPUSCULAR HEMOGLOBIN 26.3 pg (27.0-31.0); MEAN CORPUSCULAR HGB CONC 30.9 g/dL (33.0-37.0); MEAN PLATELET VOLUME 8.3 fL (7.2-11.7); MONO # 1.2 K/uL (0.0-0.8); MONO % 4.6 % (0.0-10.0); RED CELL DISTRIBUTION WIDTH 19.2 % (11.5-14.5); WHITE BLOOD COUNT 27.3 K/uL (4.8-10.8)
[2017-05-12 06:17] LABS: ABG ALLEN TEST POS; ARTERIAL BLOOD HGB O2 SAT 96.6 % (95.0-98.0); DRAW SITE L RAD; HHB -0.1 % (0.0-5.0); METHEMOGLOBIN 1.4 % (0.0-3.0)
[2017-05-12 06:29] LABS: ALB/GLOB RATIO 1.7 (1.0-2.1); ALKALINE PHOSPHATASE 22 U/L (38-126); ALT/SGPT 31 U/L (9-52); AST/SGOT 20 U/L (14-36); BLOOD UREA NITROGEN 18 mg/dL (7-17); CALCIUM 8.9 mg/dl (8.6-10.4); CARBON DIOXIDE 30 mmol/L (22-30); CHLORIDE 99 mmol/L (98-107); GFR AFRICAN-AMERICAN > 60; GLUCOSE,RANDOM 80 mg/dL (65-105); MAGNESIUM 1.7 mg/dL (1.6-2.3); PHOSPHOROUS 3.6 mg/dL (2.5-4.5); POTASSIUM 3.4 mmol/L (3.6-5.2); SODIUM 141 mmol/L (132-148); TOTAL PROTEIN 5.1 g/dL (6.3-8.3)
[2017-05-12] MEDS: Sodium Chloride 0.9% 1,000 ML IV SCH ×3 (07:35→22:46)
--- NOTE | 2017-05-12 07:41 | PN ---
DATE: 05/12/2017 TIME OF EVALUATION: 07:15 a.m. 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 PHYSICAL EXAMINATION GENERAL: The patient was extubated. The patient is more awake, alert. No respiratory distress. Speech is normal. VITAL SIGNS: Blood pressure 133/73, mean arterial pressure of 93, respiratory rate 18, temperature afebrile with a pulse rate 80 and regular. NEUROLOGIC: Cranial nerve examinations all normal. Upper extremities 4/5 proximal, distally close to 5/5. Lower extremities, left lower extremities 3/5, right side 2/5. Deep tendon reflexes are absent. Plantars are mute. . Status post plasmapheresis 10/25, third one is scheduled today. Following plasmapheresis, the patient will be getting intravenous immunoglobulin. In the meantime, continue the present management, stabilize her vital signs. Continue DVT prophylaxis. The patient recommended serological workup were documented as per my previous notes. The patient has been clinically improving with current treatment. Mario Irvin MD [facility]
[2017-05-12] MEDS ORDERED: Potassium Chloride 20 mEq ER Tab PO ONE ×2 (09:12→11:15)
--- NOTE | 2017-05-12 10:26 | RAD ---
HISTORY: intubation COMPARISON: Portable chest 05/11/2017 FINDINGS: LUNGS: Prior endotracheal tube is not identified with right central venous line unchanged in position. Exposures complex due to body habitus with limited penetration noted at the left base. Limited left medial basilar atelectasis or infiltrate is difficult to excluded. Scoliotic deformity is also again seen distorting the thoracic anatomy. Linear atelectasis is seen in both lung bases. Left pleural effusion is difficult to completely exclude. None is seen at the right. PLEURA: As above CARDIOVASCULAR: Stable delete prominent cardiac silhouette with no pulmonary vascular derangement appreciated at this time. OSSEOUS STRUCTURES: Scoliotic thoracic spinal deformity again evident. VISUALIZED UPPER ABDOMEN: Normal. OTHER FINDINGS: None. IMPRESSION: Limited medial left basilar atelectasis or infiltrate remains difficult to exclude as well as a small pleural effusion. No right-sided infiltrate or pleural effusion. Linear atelectasis is noted at both lung bases.
[2017-05-12] MEDS: MethylPREDNISolone 40 mg Vial IVP SCH (10:50)
--- NOTE | 2017-05-12 13:09 | CP.CCUPN ---
<Kelley Myers - Last Filed: 05/12/17 13:20> CCU Subjective - Physician Review Subjective (Free Text): Patient was seen and examined at bedside in the morning. Patient alert and oriented. Patient is feeling better today, only complains of back/buttocks pain "from laying in bed so long". Patient denies having chest pain, abdominal pain, dizziness, and fevers. 05/12/17 13:06 CCU Objective - Vital Signs / Intake & Output Vital Signs (Last 4 hours): Vital Signs BP 05/12/17 10:47 124/64 Intake and Output (Last 8hrs): Intake & Output 05/11/17 05/12/17 05/12/17 22:59 06:59 14:59 Intake Total 625 670 75 Output Total 1200 1150 100 Balance -575 -480 -25 Intake: Intake, IV Amount 575 550 75 Right Distal Port 575 550 75 Internal Jugular Oral 50 120 Output: Drainage 20 Wound Vac 20 Urine 1200 1130 100 Urethral (Colmenares) 1200 1130 100 - Physical Exam Head: Positive for: Atraumatic, Normocephalic Extroacular Muscles: Positive for: EOMI Mouth: Positive for: Moist Mucous Membranes Respiratory/Chest: Positive for: Good Air Exchange. Negative for: Clear to Auscultation, Accessory Muscle Use, Wheezes, Decreased Breath Sounds, Rales, Rhonchi, Tachypneic Cardiovascular: Positive for: Normal S1, S2. Negative for: Tachycardic, Bradycardic Abdomen: Positive for: Other (Obese). Negative for: Tenderness, Normal Bowel Sounds (hypoactive) Rectal: Positive for: Other (Sacral wound) Upper Extremity: Positive for: Normal Inspection. Negative for: Edema Lower Extremity: Positive for: Edema, Swelling Skin: Positive for: Warm, Dry, Normal Color, Other (sacral wound- copious drainage) Psychiatric: Positive for: Alert, Oriented x 3, Normal Insight, Normal Concentration, Normal Affect, Normal Mood - Medications Active Medications: Active Medications Generic Name Dose Route Start Last Admin Trade Name Freq PRN Reason Stop Dose Admin Albuterol/Ipratropium 3 ml 05/03/17 02:00 05/11/17 07:38 Duoneb 3 Mg/0.5 Mg (3 Ml) Ud INH 3 ml RQ6 RIK Administration Apixaban 5 mg 05/05/17 16:00 05/12/17 10:48 Eliquis PO 5 mg BID RIK Administration Famotidine 20 mg 05/07/17 10:00 05/12/17 10:48 Pepcid PO 20 mg DAILY RIK Administration Furosemide 40 mg 05/09/17 10:00 05/12/17 10:47 Lasix IVP 40 mg DAILY RIK Administration Piperacillin Sod/Tazobactam Sod 3.375 gm in 50 mls @ 100 mls/hr 05/05/17 19: 00 05/12/17 13:01 Zosyn 3.375 Gm Iv Premix IVPB 100 mls/hr Q6H RIK Administration Sodium Chloride 1,000 mls @ 75 mls/hr 05/08/17 10:00 05/12/17 12:59 Sodium Chloride 0.9% IV 75 mls/hr .[id number] RIK Administration Lorazepam 1 mg 05/04/17 09:00 Ativan IVP ONCE PRN Methylprednisolone 20 mg 05/11/17 10:00 05/12/17 10:50 Solu-Medrol IVP 20 mg DAILY RIK Administration Morphine Sulfate 2 mg 05/11/17 13:24 05/12/17 10:43 Morphine IV 2 mg Q6 PRN Administration Pain, moderate (4-7) Ondansetron HCl 4 mg 05/04/17 09:41 Zofran Inj IVP Q4 PRN Nausea/Vomiting - Patient Studies Lab Studies: Lab Studies 05/12/17 05/12/17 05/12/17 Range/Units 12:00 05:59 05:14 WBC 27.3 H (4.8-10.8) K/uL RBC 3.22 L (3.80-5.20) Mil/uL Hgb 8.5 L (11.0-16.0) g/dL Hct 27.3 L (34.0-47.0) % MCV 84.9 (81.0-99.0) fL MCH 26.3 L (27.0-31.0) pg MCHC 30.9 L (33.0-37.0) g/dL RDW 19.2 H (11.5-14.5) % Plt Count 251 (130-400) K/uL MPV 8.3 (7.2-11.7) fL Neut % (Auto) 78.4 H (50.0-75.0) % Lymph % (Auto) 12.1 L (20.0-40.0) % Rains % (Auto) 4.6 (0.0-10.0) % Eos % (Auto) 4.7 H (0.0-4.0) % Baso % (Auto) 0.2 (0.0-2.0) % Neut # 21.4 H (1.8-7.0) K/uL Lymph # 3.3 (1.0-4.3) K/uL Rains # 1.2 H (0.0-0.8) K/uL Eos # 1.3 H (0.0-0.7) K/uL Baso # 0.0 (0.0-0.2) K/uL Puncture Site pCO2 (35-45) mm/Hg pO2 (80-100) mm/Hg HCO3 (21-28) mmol/L ABG pH (7.35-7.45) ABG Total CO2 (22-28) mmol/L ABG O2 Saturation (95-98) % ABG Base Excess (-2.0-3.0) mmol/L ABG Hemoglobin (11.7-17.4) g/dL ABG Carboxyhemoglobin (0.5-1.5) % POC ABG HHb (Measured) (0.0-5.0) % ABG Methemoglobin (0.0-3.0) % Ming Test Hgb O2 Saturation (95.0-98.0) % Liter Flow Sodium (132-148) mmol/L Potassium (3.6-5.2) mmol/L Chloride (98-107) mmol/L Carbon Dioxide (22-30) mmol/L Anion Gap (10-20) BUN (7-17) mg/dL Creatinine (0.7-1.2) MG/DL Est GFR ( Amer) Est GFR (Non-Af Amer) POC Glucose (mg/dL) 103 103 (65-110) mg/dL Random Glucose (65-105) mg/dL Calcium (8.6-10.4) mg/dl Phosphorus (2.5-4.5) mg/dL Magnesium (1.6-2.3) mg/dL Total Bilirubin (0.2-1.3) mg/dL AST (14-36) U/L ALT (9-52) U/L Alkaline Phosphatase (38-126) U/L Total Protein (6.3-8.3) g/dL Albumin (3.5-5.0) g/dL Albumin (PEP) (3.8-4.8) g/dL Globulin (2.2-3.9) gm/dL Albumin/Globulin Ratio (1.0-2.1) Ndrya-0-Sghbicdbv (0.2-0.3) g/dL Ghghs-9-Olmemxbxs (0.5-0.9) g/dL Poee-5-Novsqeys (0.4-0.6) g/dL Micw-0-Lajuhvod (0.2-0.5) g/dL Gamma Globulins (0.8-1.7) g/dL Abnorm Protein Band 1 (None Detected) g/dL Abnorm Protein Band 2 Abnorm Protein Band 3 ANDRÉS & SPEP Interp 05/12/17 05/12/17 05/12/17 Range/Units 05:10 04:00 01:16 WBC (4.8-10.8) K/uL RBC (3.80-5.20) Mil/uL Hgb (11.0-16.0) g/dL Hct (34.0-47.0) % MCV (81.0-99.0) fL MCH (27.0-31.0) pg MCHC (33.0-37.0) g/dL RDW (11.5-14.5) % Plt Count (130-400) K/uL MPV (7.2-11.7) fL Neut % (Auto) (50.0-75.0) % Lymph % (Auto) (20.0-40.0) % Rains % (Auto) (0.0-10.0) % Eos % (Auto) (0.0-4.0) % Baso % (Auto) (0.0-2.0) % Neut # (1.8-7.0) K/uL Lymph # (1.0-4.3) K/uL Rains # (0.0-0.8) K/uL Eos # (0.0-0.7) K/uL Baso # (0.0-0.2) K/uL Puncture Site L rad pCO2 51 H (35-45) mm/Hg pO2 142 H (80-100) mm/Hg HCO3 32.9 H (21-28) mmol/L ABG pH 7.45 (7.35-7.45) ABG Total CO2 37.0 H (22-28) mmol/L ABG O2 Saturation 100.1 H (95-98) % ABG Base Excess 10.2 H (-2.0-3.0) mmol/L ABG Hemoglobin 8.3 L (11.7-17.4) g/dL ABG Carboxyhemoglobin 2.0 H (0.5-1.5) % POC ABG HHb (Measured) -0.1 L (0.0-5.0) % ABG Methemoglobin 1.4 (0.0-3.0) % Ming Test Pos Hgb O2 Saturation 96.6 (95.0-98.0) % Liter Flow 4.0 Sodium 141 (132-148) mmol/L Potassium 3.4 L (3.6-5.2) mmol/L Chloride 99 (98-107) mmol/L Carbon Dioxide 30 (22-30) mmol/L Anion Gap 15 (10-20) BUN 18 H (7-17) mg/dL Creatinine 0.6 L (0.7-1.2) MG/DL Est GFR ( Amer) > 60 Est GFR (Non-Af Amer) > 60 POC Glucose (mg/dL) 103 (65-110) mg/dL Random Glucose 80 (65-105) mg/dL Calcium 8.9 (8.6-10.4) mg/dl Phosphorus 3.6 (2.5-4.5) mg/dL Magnesium 1.7 (1.6-2.3) mg/dL Total Bilirubin 1.0 (0.2-1.3) mg/dL AST 20 (14-36) U/L ALT 31 (9-52) U/L Alkaline Phosphatase 22 L (38-126) U/L Total Protein 5.1 L (6.3-8.3) g/dL Albumin 3.2 L (3.5-5.0) g/dL Albumin (PEP) (3.8-4.8) g/dL Globulin 1.9 L (2.2-3.9) gm/dL Albumin/Globulin Ratio 1.7 (1.0-2.1) Dzwcu-7-Koljwjcjx (0.2-0.3) g/dL Dtubl-0-Pkfbgobyx (0.5-0.9) g/dL Yjlm-1-Igupjeud (0.4-0.6) g/dL Gtxk-3-Kbzrtode (0.2-0.5) g/dL Gamma Globulins (0.8-1.7) g/dL Abnorm Protein Band 1 (None Detected) g/dL Abnorm Protein Band 2 Abnorm Protein Band 3 ANDRÉS & SPEP Interp 05/11/17 05/11/17 05/09/17 Range/Units 23:58 17:58 07:58 WBC (4.8-10.8) K/uL RBC (3.80-5.20) Mil/uL Hgb (11.0-16.0) g/dL Hct (34.0-47.0) % MCV (81.0-99.0) fL MCH (27.0-31.0) pg MCHC (33.0-37.0) g/dL RDW (11.5-14.5) % Plt Count (130-400) K/uL MPV (7.2-11.7) fL Neut % (Auto) (50.0-75.0) % Lymph % (Auto) (20.0-40.0) % Rains % (Auto) (0.0-10.0) % Eos % (Auto) (0.0-4.0) % Baso % (Auto) (0.0-2.0) % Neut # (1.8-7.0) K/uL Lymph # (1.0-4.3) K/uL Rains # (0.0-0.8) K/uL Eos # (0.0-0.7) K/uL Baso # (0.0-0.2) K/uL Puncture Site pCO2 (35-45) mm/Hg pO2 (80-100) mm/Hg HCO3 (21-28) mmol/L ABG pH (7.35-7.45) ABG Total CO2 (22-28) mmol/L ABG O2 Saturation (95-98) % ABG Base Excess (-2.0-3.0) mmol/L ABG Hemoglobin (11.7-17.4) g/dL ABG Carboxyhemoglobin (0.5-1.5) % POC ABG HHb (Measured) (0.0-5.0) % ABG Methemoglobin (0.0-3.0) % Ming Test Hgb O2 Saturation (95.0-98.0) % Liter Flow Sodium (132-148) mmol/L Potassium (3.6-5.2) mmol/L Chloride (98-107) mmol/L Carbon Dioxide (22-30) mmol/L Anion Gap (10-20) BUN (7-17) mg/dL Creatinine (0.7-1.2) MG/DL Est GFR ( Amer) Est GFR (Non-Af Amer) POC Glucose (mg/dL) 83 129 H (65-110) mg/dL Random Glucose (65-105) mg/dL Calcium (8.6-10.4) mg/dl Phosphorus (2.5-4.5) mg/dL Magnesium (1.6-2.3) mg/dL Total Bilirubin (0.2-1.3) mg/dL AST (14-36) U/L ALT (9-52) U/L Alkaline Phosphatase (38-126) U/L Total Protein (6.3-8.3) g/dL Albumin (3.5-5.0) g/dL Albumin (PEP) 3.0 L (3.8-4.8) g/dL Globulin (2.2-3.9) gm/dL Albumin/Globulin Ratio (1.0-2.1) Ffcxi-3-Pmooaejfp 0.3 (0.2-0.3) g/dL Dahtc-8-Hsayqqphc 0.7 (0.5-0.9) g/dL Bgax-1-Jowevabr 0.3 L (0.4-0.6) g/dL Ewjq-6-Rmwgvpsj 0.2 (0.2-0.5) g/dL Gamma Globulins 0.7 L (0.8-1.7) g/dL Abnorm Protein Band 1 0.14 H (None Detected) g/dL Abnorm Protein Band 2 TEST NOT PERFORMED Abnorm Protein Band 3 TEST NOT PERFORMED ANDRÉS & SPEP Interp See note Laboratory Results - last 24 hr 05/09/17 05/11/17 05/11/17 07:58 17:58 23:58 WBC RBC Hgb Hct MCV MCH MCHC RDW Plt Count MPV Neut % (Auto) Lymph % (Auto) Rains % (Auto) Eos % (Auto) Baso % (Auto) Neut # Lymph # Rains # Eos # Baso # Puncture Site pCO2 pO2 HCO3 ABG pH ABG Total CO2 ABG O2 Saturation ABG Base Excess ABG Hemoglobin ABG Carboxyhemoglobin POC ABG HHb (Measured) ABG Methemoglobin Ming Test Hgb O2 Saturation Liter Flow Sodium Potassium Chloride Carbon Dioxide Anion Gap BUN Creatinine Est GFR ( Amer) Est GFR (Non-Af Amer) POC Glucose (mg/dL) 129 H 83 Random Glucose Calcium Phosphorus Magnesium Total Bilirubin AST ALT Alkaline Phosphatase Total Protein Albumin Albumin (PEP) 3.0 L Globulin Albumin/Globulin Ratio Zqxrv-5-Efgehzfji 0.3 Orgql-7-Jvzeclluh 0.7 Hfyp-6-Tucmxaos 0.3 L Avnb-0-Azwgcfja 0.2 Gamma Globulins 0.7 L Abnorm Protein Band 1 0.14 H Abnorm Protein Band 2 TEST NOT PERFORMED Abnorm Protein Band 3 TEST NOT PERFORMED ANDRÉS & SPEP Interp See note 05/12/17 05/12/17 05/12/17 01:16 04:00 05:10 WBC RBC Hgb Hct MCV MCH MCHC RDW Plt Count MPV Neut % (Auto) Lymph % (Auto) Rains % (Auto) Eos % (Auto) Baso % (Auto) Neut # Lymph # Rains # Eos # Baso # Puncture Site L rad pCO2 51 H pO2 142 H HCO3 32.9 H ABG pH 7.45 ABG Total CO2 37.0 H ABG O2 Saturation 100.1 H ABG Base Excess 10.2 H ABG Hemoglobin 8.3 L ABG Carboxyhemoglobin 2.0 H POC ABG HHb (Measured) -0.1 L ABG Methemoglobin 1.4 Ming Test Pos Hgb O2 Saturation 96.6 Liter Flow 4.0 Sodium 141 Potassium 3.4 L Chloride 99 Carbon Dioxide 30 Anion Gap 15 BUN 18 H Creatinine 0.6 L Est GFR ( Amer) > 60 Est GFR (Non-Af Amer) > 60 POC Glucose (mg/dL) 103 Random Glucose 80 Calcium 8.9 Phosphorus 3.6 Magnesium 1.7 Total Bilirubin 1.0 AST 20 ALT 31 Alkaline Phosphatase 22 L Total Protein 5.1 L Albumin 3.2 L Albumin (PEP) Globulin 1.9 L Albumin/Globulin Ratio 1.7 Wqass-7-Iwpycyjrh Vomgq-9-Lmtuwlcaf Lylj-8-Kmcbcewr Qrvw-3-Abnelxsv Gamma Globulins Abnorm Protein Band 1 Abnorm Protein Band 2 Abnorm Protein Band 3 ANDRÉS & SPEP Interp 05/12/17 05/12/17 05/12/17 05:14 05:59 12:00 WBC 27.3 H RBC 3.22 L Hgb 8.5 L Hct 27.3 L MCV 84.9 MCH 26.3 L MCHC 30.9 L RDW 19.2 H Plt Count 251 MPV 8.3 Neut % (Auto) 78.4 H Lymph % (Auto) 12.1 L Rains % (Auto) 4.6 Eos % (Auto) 4.7 H Baso % (Auto) 0.2 Neut # 21.4 H Lymph # 3.3 Rains # 1.2 H Eos # 1.3 H Baso # 0.0 Puncture Site pCO2 pO2 HCO3 ABG pH ABG Total CO2 ABG O2 Saturation ABG Base Excess ABG Hemoglobin ABG Carboxyhemoglobin POC ABG HHb (Measured) ABG Methemoglobin Ming Test Hgb O2 Saturation Liter Flow Sodium Potassium Chloride Carbon Dioxide Anion Gap BUN Creatinine Est GFR ( Amer) Est GFR (Non-Af Amer) POC Glucose (mg/dL) 103 103 Random Glucose Calcium Phosphorus Magnesium Total Bilirubin AST ALT Alkaline Phosphatase Total Protein Albumin Albumin (PEP) Globulin Albumin/Globulin Ratio Nifku-3-Uiamdgitd Stkjn-8-Ljpoomcrp Hfqc-9-Avhuipex Rkba-8-Oefbxgjb Gamma Globulins Abnorm Protein Band 1 Abnorm Protein Band 2 Abnorm Protein Band 3 ANDRÉS & SPEP Interp Fingerstick Blood Sugar Results: 103 Review of Systems - Constitutional Constitutional: absent: Fever - Cardiovascular Cardiovascular: absent: Chest Pain, Dyspnea - Respiratory Respiratory: absent: Cough, Dyspnea - Gastrointestinal Gastrointestinal: absent: Abdominal Pain, Constipation, Diarrhea, Nausea, Vomiting - Musculoskeletal Musculoskeletal: Back Pain - Neurological Neurological: absent: Dizziness, Headaches Critical Care Progress Note - Nutrition Nutrition: Nutrition Category Date Time Status Heart Healthy Diet [DIET] Diets 05/11/17 Dinner Active Assessment/Plan - Assessment and Plan (Free Text) Assessment: 60-year-old female with history of anxiety, depression, chronic back pain, possible obstructive sleep apnea, COPD, was brought in by the family members because of altered mental status. Patient is hypotensive and septic. Patient has sacral wound, likely cause of sepsis. Patient went to the OR today for I/D of sacral wound. Wound vac in place. Wound culture came back positive for proteus mirabilis, group c strep-- continue Primaxin and vanco. Patient has new onset of a-fib, started cardizem drip on 05/05/17. Patient was in respiratory distress on 05/06/17 and intubated. 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 Patient had second (out of 5 total) plasmapheresis on 05/10/17. Patient was extubated on 05/11/17. Plasmapheresis scheduled for 05/12/17. Neuro: - Alert - Neurology consulted: Dr. Irvin, help appreciated - MRI: patient refused - As per neurology, patient had 1 dose of IVIG. 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 - O2via nasal cannula and Duonebs - Monitor ABG CV: hypotensive, new onset A-Fib - Secondary to sepsis - Hx of DVT (6 weeks prior)--> Continue Eliquis 5mg PO - Venous dopplers: DVT in Right deep popliteal and left common femoral, femoral , and popliteal. - Cardizem drip for A-fib Endo: no acute issues GI: Tube feeding - Pepcid daily : no acute issues - UA: 1+ protein & blood, 4 Urobilinogen, 23 WBC, 8 RBC, Few bacteria. Heme: anemic - Continue to monitor H/H - Heme/onc consulted for plasmapheresis- Dr Morales, help appreciated - Surgical team placed dialysis catheter in right femoral for plasmapheresis treatments--> received first treatment on 05/07/18. As per neuro, patient requires a total of 5 treatments. - 3rd plasma exchange 05/12/17 Renal: - Elevated BUN/Cr--> 18/0.5 - Monitor renal function - Hypokalemia: improving, gave KCl 40mEq; continue to monitor - Hypomagnesemia: Resolved ID: Sepsis, leukocytosis, bandemia - ID consulted: Dr. Ornelas, help appreciated - Sacral wound- Proteus Mirabilis, Group C strep - Surgery consulted: Dr. Almaraz, help appreciated - Patients sacral wound- I&D with wound vac (vac changed q3days) - Continue Zosyn - Wound care - C. Diff: negative Prophylaxis: - DVT: Eliquis, SCDs - GI: Pepcid daily - PT/OT <Howard Quiñones S - Last Filed: 05/12/17 15:44> CCU Objective - Vital Signs / Intake & Output Vital Signs (Last 4 hours): Vital Signs Temp Pulse Resp BP Pulse Ox 05/12/17 14:01 80 21 126/74 97 05/12/17 14:00 82 19 97 05/12/17 13:01 87 15 138/83 97 05/12/17 13:00 87 10 L 96 05/12/17 12:01 81 135/70 98 05/12/17 12:00 97.6 F 80 97 Intake and Output (Last 8hrs): Intake & Output 05/12/17 05/12/17 05/12/17 06:59 14:59 22:59 Intake Total 670 75 Output Total 1150 100 Balance -480 -25 Intake: Intake, IV Amount 550 75 Right Distal Port 550 75 Internal Jugular Oral 120 Output: Drainage 20 Wound Vac 20 Urine 1130 100 Urethral (Colmenares) 1130 100 - Medications Active Medications: Active Medications Generic Name Dose Route Start Last Admin Trade Name Sam PRN Reason Stop Dose Admin Albuterol/Ipratropium 3 ml 05/03/17 02:00 05/11/17 07:38 Duoneb 3 Mg/0.5 Mg (3 Ml) Ud INH 3 ml RQ6 RIK Administration Apixaban 5 mg 05/05/17 16:00 05/12/17 10:48 Eliquis PO 5 mg BID RIK Administration Famotidine 20 mg 05/07/17 10:00 05/12/17 10:48 Pepcid PO 20 mg DAILY RIK Administration Furosemide 40 mg 05/09/17 10:00 05/12/17 10:47 Lasix IVP 40 mg DAILY RIK Administration Piperacillin Sod/Tazobactam Sod 3.375 gm in 50 mls @ 100 mls/hr 05/05/17 19: 00 05/12/17 13:01 Zosyn 3.375 Gm Iv Premix IVPB 100 mls/hr Q6H RIK Administration Sodium Chloride 1,000 mls @ 75 mls/hr 05/08/17 10:00 05/12/17 12:59 Sodium Chloride 0.9% IV 75 mls/hr .[id number] RIK Administration Lorazepam 1 mg 05/04/17 09:00 Ativan IVP ONCE PRN Methylprednisolone 20 mg 05/11/17 10:00 05/12/17 10:50 Solu-Medrol IVP 20 mg DAILY RIK Administration Morphine Sulfate 2 mg 05/11/17 13:24 05/12/17 10:43 Morphine IV 2 mg Q6 PRN Administration Pain, moderate (4-7) Ondansetron HCl 4 mg 05/04/17 09:41 Zofran Inj IVP Q4 PRN Nausea/Vomiting - Patient Studies Lab Studies: Lab Studies 05/12/17 05/12/17 05/12/17 Range/Units 12:00 05:59 05:14 WBC 27.3 H (4.8-10.8) K/uL RBC 3.22 L (3.80-5.20) Mil/uL Hgb 8.5 L (11.0-16.0) g/dL Hct 27.3 L (34.0-47.0) % MCV 84.9 (81.0-99.0) fL MCH 26.3 L (27.0-31.0) pg MCHC 30.9 L (33.0-37.0) g/dL RDW 19.2 H (11.5-14.5) % Plt Count 251 (130-400) K/uL MPV 8.3 (7.2-11.7) fL Neut % (Auto) 78.4 H (50.0-75.0) % Lymph % (Auto) 12.1 L (20.0-40.0) % Rains % (Auto) 4.6 (0.0-10.0) % Eos % (Auto) 4.7 H (0.0-4.0) % Baso % (Auto) 0.2 (0.0-2.0) % Neut # 21.4 H (1.8-7.0) K/uL Lymph # 3.3 (1.0-4.3) K/uL Rains # 1.2 H (0.0-0.8) K/uL Eos # 1.3 H (0.0-0.7) K/uL Baso # 0.0 (0.0-0.2) K/uL Puncture Site pCO2 (35-45) mm/Hg pO2 (80-100) mm/Hg HCO3 (21-28) mmol/L ABG pH (7.35-7.45) ABG Total CO2 (22-28) mmol/L ABG O2 Saturation (95-98) % ABG Base Excess (-2.0-3.0) mmol/L ABG Hemoglobin (11.7-17.4) g/dL ABG Carboxyhemoglobin (0.5-1.5) % POC ABG HHb (Measured) (0.0-5.0) % ABG Methemoglobin (0.0-3.0) % Ming Test Hgb O2 Saturation (95.0-98.0) % Liter Flow Sodium (132-148) mmol/L Potassium (3.6-5.2) mmol/L Chloride (98-107) mmol/L Carbon Dioxide (22-30) mmol/L Anion Gap (10-20) BUN (7-17) mg/dL Creatinine (0.7-1.2) MG/DL Est GFR ( Amer) Est GFR (Non-Af Amer) POC Glucose (mg/dL) 103 103 (65-110) mg/dL Random Glucose (65-105) mg/dL Calcium (8.6-10.4) mg/dl Phosphorus (2.5-4.5) mg/dL Magnesium (1.6-2.3) mg/dL Total Bilirubin (0.2-1.3) mg/dL AST (14-36) U/L ALT (9-52) U/L Alkaline Phosphatase (38-126) U/L Total Protein (6.3-8.3) g/dL Albumin (3.5-5.0) g/dL Albumin (PEP) (3.8-4.8) g/dL Globulin (2.2-3.9) gm/dL Albumin/Globulin Ratio (1.0-2.1) Qifsy-4-Gciyoutct (0.2-0.3) g/dL Fdmzt-3-Qwnnhbafg (0.5-0.9) g/dL Wuqb-2-Cjotfhxn (0.4-0.6) g/dL Sjwv-5-Cwkxgsho (0.2-0.5) g/dL Gamma Globulins (0.8-1.7) g/dL Abnorm Protein Band 1 (None Detected) g/dL Abnorm Protein Band 2 Abnorm Protein Band 3 ANDRÉS & SPEP Interp 05/12/17 05/12/17 05/12/17 Range/Units 05:10 04:00 01:16 WBC (4.8-10.8) K/uL RBC (3.80-5.20) Mil/uL Hgb (11.0-16.0) g/dL Hct (34.0-47.0) % MCV (81.0-99.0) fL MCH (27.0-31.0) pg MCHC (33.0-37.0) g/dL RDW (11.5-14.5) % Plt Count (130-400) K/uL MPV (7.2-11.7) fL Neut % (Auto) (50.0-75.0) % Lymph % (Auto) (20.0-40.0) % Rains % (Auto) (0.0-10.0) % Eos % (Auto) (0.0-4.0) % Baso % (Auto) (0.0-2.0) % Neut # (1.8-7.0) K/uL Lymph # (1.0-4.3) K/uL Rains # (0.0-0.8) K/uL Eos # (0.0-0.7) K/uL Baso # (0.0-0.2) K/uL Puncture Site L rad pCO2 51 H (35-45) mm/Hg pO2 142 H (80-100) mm/Hg HCO3 32.9 H (21-28) mmol/L ABG pH 7.45 (7.35-7.45) ABG Total CO2 37.0 H (22-28) mmol/L ABG O2 Saturation 100.1 H (95-98) % ABG Base Excess 10.2 H (-2.0-3.0) mmol/L ABG Hemoglobin 8.3 L (11.7-17.4) g/dL ABG Carboxyhemoglobin 2.0 H (0.5-1.5) % POC ABG HHb (Measured) -0.1 L (0.0-5.0) % ABG Methemoglobin 1.4 (0.0-3.0) % Ming Test Pos Hgb O2 Saturation 96.6 (95.0-98.0) % Liter Flow 4.0 Sodium 141 (132-148) mmol/L Potassium 3.4 L (3.6-5.2) mmol/L Chloride 99 (98-107) mmol/L Carbon Dioxide 30 (22-30) mmol/L Anion Gap 15 (10-20) BUN 18 H (7-17) mg/dL Creatinine 0.6 L (0.7-1.2) MG/DL Est GFR ( Amer) > 60 Est GFR (Non-Af Amer) > 60 POC Glucose (mg/dL) 103 (65-110) mg/dL Random Glucose 80 (65-105) mg/dL Calcium 8.9 (8.6-10.4) mg/dl Phosphorus 3.6 (2.5-4.5) mg/dL Magnesium 1.7 (1.6-2.3) mg/dL Total Bilirubin 1.0 (0.2-1.3) mg/dL AST 20 (14-36) U/L ALT 31 (9-52) U/L Alkaline Phosphatase 22 L (38-126) U/L Total Protein 5.1 L (6.3-8.3) g/dL Albumin 3.2 L (3.5-5.0) g/dL Albumin (PEP) (3.8-4.8) g/dL Globulin 1.9 L (2.2-3.9) gm/dL Albumin/Globulin Ratio 1.7 (1.0-2.1) Nglny-2-Fqtoffgti (0.2-0.3) g/dL Jerui-8-Ywwvrdhcg (0.5-0.9) g/dL Roaf-2-Gyqnwbxk (0.4-0.6) g/dL Ftdf-8-Udiesxfk (0.2-0.5) g/dL Gamma Globulins (0.8-1.7) g/dL Abnorm Protein Band 1 (None Detected) g/dL Abnorm Protein Band 2 Abnorm Protein Band 3 ANDRÉS & SPEP Interp 05/11/17 05/11/17 05/09/17 Range/Units 23:58 17:58 07:58 WBC (4.8-10.8) K/uL RBC (3.80-5.20) Mil/uL Hgb (11.0-16.0) g/dL Hct (34.0-47.0) % MCV (81.0-99.0) fL MCH (27.0-31.0) pg MCHC (33.0-37.0) g/dL RDW (11.5-14.5) % Plt Count (130-400) K/uL MPV (7.2-11.7) fL Neut % (Auto) (50.0-75.0) % Lymph % (Auto) (20.0-40.0) % Rains % (Auto) (0.0-10.0) % Eos % (Auto) (0.0-4.0) % Baso % (Auto) (0.0-2.0) % Neut # (1.8-7.0) K/uL Lymph # (1.0-4.3) K/uL Rains # (0.0-0.8) K/uL Eos # (0.0-0.7) K/uL Baso # (0.0-0.2) K/uL Puncture Site pCO2 (35-45) mm/Hg pO2 (80-100) mm/Hg HCO3 (21-28) mmol/L ABG pH (7.35-7.45) ABG Total CO2 (22-28) mmol/L ABG O2 Saturation (95-98) % ABG Base Excess (-2.0-3.0) mmol/L ABG Hemoglobin (11.7-17.4) g/dL ABG Carboxyhemoglobin (0.5-1.5) % POC ABG HHb (Measured) (0.0-5.0) % ABG Methemoglobin (0.0-3.0) % Ming Test Hgb O2 Saturation (95.0-98.0) % Liter Flow Sodium (132-148) mmol/L Potassium (3.6-5.2) mmol/L Chloride (98-107) mmol/L Carbon Dioxide (22-30) mmol/L Anion Gap (10-20) BUN (7-17) mg/dL Creatinine (0.7-1.2) MG/DL Est GFR ( Amer) Est GFR (Non-Af Amer) POC Glucose (mg/dL) 83 129 H (65-110) mg/dL Random Glucose (65-105) mg/dL Calcium (8.6-10.4) mg/dl Phosphorus (2.5-4.5) mg/dL Magnesium (1.6-2.3) mg/dL Total Bilirubin (0.2-1.3) mg/dL AST (14-36) U/L ALT (9-52) U/L Alkaline Phosphatase (38-126) U/L Total Protein (6.3-8.3) g/dL Albumin (3.5-5.0) g/dL Albumin (PEP) 3.0 L (3.8-4.8) g/dL Globulin (2.2-3.9) gm/dL Albumin/Globulin Ratio (1.0-2.1) Fpcjp-5-Suiiecvpi 0.3 (0.2-0.3) g/dL Itwjs-5-Zrjsjpkhi 0.7 (0.5-0.9) g/dL Qyse-2-Qjqilwnt 0.3 L (0.4-0.6) g/dL Pvcp-9-Xdjshhnm 0.2 (0.2-0.5) g/dL Gamma Globulins 0.7 L (0.8-1.7) g/dL Abnorm Protein Band 1 0.14 H (None Detected) g/dL Abnorm Protein Band 2 TEST NOT PERFORMED Abnorm Protein Band 3 TEST NOT PERFORMED ANDRÉS & SPEP Interp See note Laboratory Results - last 24 hr 05/09/17 05/11/17 05/11/17 07:58 17:58 23:58 WBC RBC Hgb Hct MCV MCH MCHC RDW Plt Count MPV Neut % (Auto) Lymph % (Auto) Rains % (Auto) Eos % (Auto) Baso % (Auto) Neut # Lymph # Rains # Eos # Baso # Puncture Site pCO2 pO2 HCO3 ABG pH ABG Total CO2 ABG O2 Saturation ABG Base Excess ABG Hemoglobin ABG Carboxyhemoglobin POC ABG HHb (Measured) ABG Methemoglobin Ming Test Hgb O2 Saturation Liter Flow Sodium Potassium Chloride Carbon Dioxide Anion Gap BUN Creatinine Est GFR ( Amer) Est GFR (Non-Af Amer) POC Glucose (mg/dL) 129 H 83 Random Glucose Calcium Phosphorus Magnesium Total Bilirubin AST ALT Alkaline Phosphatase Total Protein Albumin Albumin (PEP) 3.0 L Globulin Albumin/Globulin Ratio Bcepm-9-Fvpwowmok 0.3 Lbyae-6-Qersqzibl 0.7 Ownm-6-Zorlmkrd 0.3 L Cevd-3-Yvluiiyp 0.2 Gamma Globulins 0.7 L Abnorm Protein Band 1 0.14 H Abnorm Protein Band 2 TEST NOT PERFORMED Abnorm Protein Band 3 TEST NOT PERFORMED ANDRÉS & SPEP Interp See note 05/12/17 05/12/17 05/12/17 01:16 04:00 05:10 WBC RBC Hgb Hct MCV MCH MCHC RDW Plt Count MPV Neut % (Auto) Lymph % (Auto) Rains % (Auto) Eos % (Auto) Baso % (Auto) Neut # Lymph # Rains # Eos # Baso # Puncture Site L rad pCO2 51 H pO2 142 H HCO3 32.9 H ABG pH 7.45 ABG Total CO2 37.0 H ABG O2 Saturation 100.1 H ABG Base Excess 10.2 H ABG Hemoglobin 8.3 L ABG Carboxyhemoglobin 2.0 H POC ABG HHb (Measured) -0.1 L ABG Methemoglobin 1.4 Ming Test Pos Hgb O2 Saturation 96.6 Liter Flow 4.0 Sodium 141 Potassium 3.4 L Chloride 99 Carbon Dioxide 30 Anion Gap 15 BUN 18 H Creatinine 0.6 L Est GFR ( Amer) > 60 Est GFR (Non-Af Amer) > 60 POC Glucose (mg/dL) 103 Random Glucose 80 Calcium 8.9 Phosphorus 3.6 Magnesium 1.7 Total Bilirubin 1.0 AST 20 ALT 31 Alkaline Phosphatase 22 L Total Protein 5.1 L Albumin 3.2 L Albumin (PEP) Globulin 1.9 L Albumin/Globulin Ratio 1.7 Bsjir-1-Azsrmkqmf Iqhdm-5-Cchowajgo Gooc-6-Lhgtwpcd Zbyp-8-Pcvlovzw Gamma Globulins Abnorm Protein Band 1 Abnorm Protein Band 2 Abnorm Protein Band 3 ANDRÉS & SPEP Interp 05/12/17 05/12/17 05/12/17 05:14 05:59 12:00 WBC 27.3 H RBC 3.22 L Hgb 8.5 L Hct 27.3 L MCV 84.9 MCH 26.3 L MCHC 30.9 L RDW 19.2 H Plt Count 251 MPV 8.3 Neut % (Auto) 78.4 H Lymph % (Auto) 12.1 L Rains % (Auto) 4.6 Eos % (Auto) 4.7 H Baso % (Auto) 0.2 Neut # 21.4 H Lymph # 3.3 Rains # 1.2 H Eos # 1.3 H Baso # 0.0 Puncture Site pCO2 pO2 HCO3 ABG pH ABG Total CO2 ABG O2 Saturation ABG Base Excess ABG Hemoglobin ABG Carboxyhemoglobin POC ABG HHb (Measured) ABG Methemoglobin Ming Test Hgb O2 Saturation Liter Flow Sodium Potassium Chloride Carbon Dioxide Anion Gap BUN Creatinine Est GFR ( Amer) Est GFR (Non-Af Amer) POC Glucose (mg/dL) 103 103 Random Glucose Calcium Phosphorus Magnesium Total Bilirubin AST ALT Alkaline Phosphatase Total Protein Albumin Albumin (PEP) Globulin Albumin/Globulin Ratio Bfejk-4-Qwihcavrz Exyaq-3-Xyptknqlu Jndn-6-Natiaefy Iqpc-1-Bnxjjluw Gamma Globulins Abnorm Protein Band 1 Abnorm Protein Band 2 Abnorm Protein Band 3 ANDRÉS & SPEP Interp Critical Care Progress Note - Nutrition Nutrition: Nutrition Category Date Time Status Heart Healthy Diet [DIET] Diets 05/11/17 Dinner Active Assessment/Plan (1) Sepsis Current Visit: Yes Status: Acute Comment: Continue antibiotics Status post wound VAC placement 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 (2) Altered mental status Current Visit: No Status: Acute (3) Hypotension Current Visit: Yes Status: Acute (4) COPD (chronic obstructive pulmonary disease) Current Visit: No Status: Chronic Comment: Continue nebulizer treatments and steroids (5) OPHELIA (obstructive sleep apnea) Current Visit: No Status: Chronic Comment: obstructive sleep apnea versus obesity hypoventilation syndrome Attending/Attestation - Attestation I have personally seen and examined this patient.: Yes I have fully participated in the care of the patient.: Yes I have reviewed all pertinent clinical information: Yes Notes (Text): 05/12/17 15:43 Patient seen and examined in the intensive care unit. Case discussed with house staff in the morning rounds. Patient awake and responsive in no respiratory distress Continue antibiotics Continue anticoagulation Physical therapy and out of bed to chair Continue nebulizer treatment and taper steroids Continue plasmapheresis
--- NOTE | 2017-05-12 15:08 | CP.PCM.PN ---
Subjective - Date & Time of Evaluation Date of Evaluation: 05/12/17 Time of Evaluation: 15:08 Objective - Vital Signs/Intake and Output Vital Signs (last 24 hours): Temp Pulse Resp BP Pulse Ox 97.6 F 80 21 126/74 97 05/12/17 12:00 05/12/17 14:01 05/12/17 14:01 05/12/17 14:01 05/12/17 14:01 Intake and Output: 05/12/17 05/12/17 06:59 18:59 Intake Total 995 75 Output Total 1600 100 Balance -605 -25 - Medications Medications: Current Medications Albuterol/Ipratropium (Duoneb 3 Mg/0.5 Mg (3 Ml) Ud) 3 ml INH RQ6 [facility] Last Admin: 05/11/17 07:38 Dose: 3 ml Apixaban (Eliquis) 5 mg PO BID [facility] Last Admin: 05/12/17 10:48 Dose: 5 mg Famotidine (Pepcid) 20 mg PO DAILY [facility] Last Admin: 05/12/17 10:48 Dose: 20 mg Furosemide (Lasix) 40 mg IVP DAILY [facility] Last Admin: 05/12/17 10:47 Dose: 40 mg Piperacillin Sod/Tazobactam Sod (Zosyn 3.375 Gm Iv Premix) 3.375 gm in 50 mls @ 100 mls/hr IVPB Q6H [facility] Last Admin: 05/12/17 13:01 Dose: 100 mls/hr Sodium Chloride (Sodium Chloride 0.9%) 1,000 mls @ 75 mls/hr IV .[id number] [facility] Last Admin: 05/12/17 12:59 Dose: 75 mls/hr Lorazepam (Ativan) 1 mg IVP ONCE PRN Methylprednisolone (Solu-Medrol) 20 mg IVP DAILY [facility] Last Admin: 05/12/17 10:50 Dose: 20 mg Morphine Sulfate (Morphine) 2 mg IV Q6 PRN PRN Reason: Pain, moderate (4-7) Last Admin: 05/12/17 10:43 Dose: 2 mg Ondansetron HCl (Zofran Inj) 4 mg IVP Q4 PRN PRN Reason: Nausea/Vomiting - Labs Labs: 05/12/17 05:59 05/12/17 04:00 PT 12.4 SECONDS (9.7-12.2) H 05/05/17 06:40 INR 1.1 05/05/17 06:40 APTT 27 SECONDS (21-34) 05/04/17 06:35
[2017-05-12] MEDS ORDERED: DiphenhydrAMINE 50 mg/ml Inj IVP ONE (22:00)
[2017-05-12] MEDS ORDERED: MethylPREDNISolone 40 mg Vial IV ONE (22:15)
[2017-05-12] MEDS ORDERED: Calcium Gluconate 9.3 MEQ in Sodium Chloride 0.9% 250 ML IV ONE (23:00)
[2017-05-13 00:51] LABS: KAPPA/LAMBDA FREE RATIO 0.86 (0.26-1.65)
[2017-05-13] MEDS: Piperacill/Tazo 3.375gm in Dex 3.375 GM/50 ML BAG IVPB SCH ×4 (01:20→18:22)
[2017-05-13] MEDS: Sodium Chloride 0.9% 1,000 ML IV SCH ×2 (04:54→18:20)
[2017-05-13 06:37] LABS: BASO # 0.1 K/uL (0.0-0.2); BASO % 0.3 % (0.0-2.0); HEMATOCRIT 29.1 % (34.0-47.0); LYMPH # 1.3 K/uL (1.0-4.3); LYMPH % 4.1 % (20.0-40.0); MEAN CELL VOLUME 84.3 fL (81.0-99.0); MEAN CORPUSCULAR HEMOGLOBIN 26.4 pg (27.0-31.0); MEAN CORPUSCULAR HGB CONC 31.3 g/dL (33.0-37.0); MONO # 0.6 K/uL (0.0-0.8); MONO % 1.9 % (0.0-10.0); PLATELET COUNT 258 K/uL (130-400); RED CELL DISTRIBUTION WIDTH 19.6 % (11.5-14.5); WHITE BLOOD COUNT 30.5 K/uL (4.8-10.8)
[2017-05-13 06:53] LABS: ALB/GLOB RATIO 2.9 (1.0-2.1); ALKALINE PHOSPHATASE < 20 U/L (38-126); ALT/SGPT 26 U/L (9-52); AST/SGOT 13 U/L (14-36); BILIRUBIN,TOTAL 0.8 mg/dL (0.2-1.3); BLOOD UREA NITROGEN 14 mg/dL (7-17); CALCIUM 9.2 mg/dl (8.6-10.4); CARBON DIOXIDE 26 mmol/L (22-30); CHLORIDE 102 mmol/L (98-107); GFR AFRICAN-AMERICAN > 60; GLUCOSE,RANDOM 116 mg/dL (65-105); MAGNESIUM 1.6 mg/dL (1.6-2.3); PHOSPHOROUS 3.6 mg/dL (2.5-4.5); POTASSIUM 3.8 mmol/L (3.6-5.2); SODIUM 141 mmol/L (132-148); TOTAL PROTEIN 5.1 g/dL (6.3-8.3)
[2017-05-13 08:32] LABS: LARGE PLATELETS PRESENT; NEUTROPHIL 93 % (50-75); TOTAL CELLS COUNTED 100
[2017-05-13] MEDS: MethylPREDNISolone 40 mg Vial IVP SCH (09:46)
--- NOTE | 2017-05-13 10:48 | CP.PCM.PN ---
Subjective - Date & Time of Evaluation Date of Evaluation: 05/13/17 Time of Evaluation: 09:30 - Subjective Subjective: Patient seen and examined in the intensive care unit Alert oriented in no distress Denies cough, denies fever or chills, denies chest pain Status post plasmapheresis yesterday On anticoagulation for DVT No bleeding noted Objective - Vital Signs/Intake and Output Vital Signs (last 24 hours): Temp Pulse Resp BP Pulse Ox 97.4 F L 81 17 120/73 99 05/13/17 08:00 05/13/17 08:00 05/13/17 08:00 05/13/17 09:46 05/13/17 08:00 Intake and Output: 05/13/17 05/13/17 06:59 18:59 Intake Total 1099 190 Output Total 750 50 Balance 349 140 - Medications Medications: Current Medications Albuterol/Ipratropium (Duoneb 3 Mg/0.5 Mg (3 Ml) Ud) 3 ml INH RQ6 [facility] Last Admin: 05/11/17 07:38 Dose: 3 ml Apixaban (Eliquis) 5 mg PO BID [facility] Last Admin: 05/13/17 09:47 Dose: 5 mg Famotidine (Pepcid) 20 mg PO DAILY [facility] Last Admin: 05/13/17 09:47 Dose: 20 mg Furosemide (Lasix) 40 mg IVP DAILY [facility] Last Admin: 05/13/17 09:46 Dose: 40 mg Piperacillin Sod/Tazobactam Sod (Zosyn 3.375 Gm Iv Premix) 3.375 gm in 50 mls @ 100 mls/hr IVPB Q6H [facility] Last Admin: 05/13/17 06:03 Dose: 100 mls/hr Sodium Chloride (Sodium Chloride 0.9%) 1,000 mls @ 75 mls/hr IV .[id number] [facility] Last Admin: 05/13/17 04:54 Dose: 75 mls/hr Methylprednisolone (Solu-Medrol) 20 mg IVP DAILY [facility] Last Admin: 05/13/17 09:46 Dose: 20 mg Morphine Sulfate (Morphine) 2 mg IV Q6 PRN PRN Reason: Pain, moderate (4-7) Last Admin: 05/13/17 04:50 Dose: 2 mg Ondansetron HCl (Zofran Inj) 4 mg IVP Q4 PRN PRN Reason: Nausea/Vomiting Temazepam (Restoril) 15 mg PO HS RIK - Labs Labs: 05/13/17 06:27 05/13/17 06:27 PT 12.4 SECONDS (9.7-12.2) H 05/05/17 06:40 INR 1.1 05/05/17 06:40 APTT 27 SECONDS (21-34) 05/04/17 06:35 - Head Exam Head Exam: ATRAUMATIC, NORMOCEPHALIC - ENT Exam ENT Exam: Mucous Membranes Moist - Neck Exam Neck Exam: Normal Inspection - Respiratory Exam Respiratory Exam: Decreased Breath Sounds - Cardiovascular Exam Cardiovascular Exam: REGULAR RHYTHM - GI/Abdominal Exam GI & Abdominal Exam: Soft, Normal Bowel Sounds - Extremities Exam Extremities Exam: Pedal Edema Assessment and Plan (1) Sepsis Assessment & Plan: continue antibiotics as per infectious disease Status: Acute (2) Hypotension Status: Acute (3) COPD (chronic obstructive pulmonary disease) Assessment & Plan: Taper IV steroids and continue plasmapheresis Status: Chronic (4) OPHELIA (obstructive sleep apnea) Assessment & Plan: BiPAP at night for obstructive sleep apnea Status: Chronic
--- NOTE | 2017-05-13 12:32 | CP.CCUPN ---
<Kelley Myers - Last Filed: 05/13/17 12:13> CCU Subjective - Physician Review Subjective (Free Text): Patient was seen and examined at bedside in the morning. Patient alert and oriented. Patient has no complaints except for sacral/back pain. Patient denies having chest pain, abdominal pain, dizziness, nausea, vomiting, and fevers. 05/13/17 12:13 CCU Objective - Vital Signs / Intake & Output Vital Signs (Last 4 hours): Vital Signs BP 05/13/17 09:46 120/73 Intake and Output (Last 8hrs): Intake & Output 05/12/17 05/13/17 05/13/17 22:59 06:59 14:59 Intake Total 575 799 190 Output Total 1310 350 50 Balance -735 449 140 Weight 239 lb 3.225 oz Intake: Intake, IV Amount 575 799 150 Right Distal Port 525 799 150 Internal Jugular Right Medial Port 50 Internal Jugular Oral 40 Output: Drainage 10 Wound Vac 10 Urine 1300 350 50 Urethral ([place]) 1300 350 50 Other: # Bowel Movements 0 - Physical Exam Head: Positive for: Atraumatic, Normocephalic Extroacular Muscles: Positive for: EOMI Mouth: Positive for: Moist Mucous Membranes Respiratory/Chest: Positive for: Good Air Exchange. Negative for: Clear to Auscultation, Accessory Muscle Use, Wheezes, Decreased Breath Sounds, Rales, Rhonchi, Tachypneic Cardiovascular: Positive for: Normal S1, S2. Negative for: Tachycardic, Bradycardic Abdomen: Positive for: Other (Obese). Negative for: Tenderness, Normal Bowel Sounds (hypoactive) Rectal: Positive for: Other (Sacral wound) Upper Extremity: Positive for: Normal Inspection. Negative for: Edema Lower Extremity: Positive for: Edema, Swelling Skin: Positive for: Warm, Dry, Normal Color, Other (sacral wound- copious drainage) Psychiatric: Positive for: Alert, Oriented x 3, Normal Insight, Normal Concentration, Normal Affect, Normal Mood - Medications Active Medications: Active Medications Generic Name Dose Route Start Last Admin Trade Name Freq PRN Reason Stop Dose Admin Albuterol/Ipratropium 3 ml 05/03/17 02:00 05/11/17 07:38 Duoneb 3 Mg/0.5 Mg (3 Ml) Ud INH 3 ml RQ6 RIK Administration Apixaban 5 mg 05/05/17 16:00 05/13/17 09:47 Eliquis PO 5 mg BID RIK Administration Famotidine 20 mg 05/07/17 10:00 05/13/17 09:47 Pepcid PO 20 mg DAILY RIK Administration Furosemide 40 mg 05/09/17 10:00 05/13/17 09:46 Lasix IVP 40 mg DAILY RIK Administration Piperacillin Sod/Tazobactam Sod 3.375 gm in 50 mls @ 100 mls/hr 05/05/17 19: 00 05/13/17 06:03 Zosyn 3.375 Gm Iv Premix IVPB 100 mls/hr Q6H RIK Administration Sodium Chloride 1,000 mls @ 75 mls/hr 05/08/17 10:00 05/13/17 04:54 Sodium Chloride 0.9% IV 75 mls/hr .[id number] RIK Administration Methylprednisolone 20 mg 05/11/17 10:00 05/13/17 09:46 Solu-Medrol IVP 20 mg DAILY RIK Administration Morphine Sulfate 2 mg 05/11/17 13:24 05/13/17 11:48 Morphine IV 2 mg Q6 PRN Administration Pain, moderate (4-7) Ondansetron HCl 4 mg 05/04/17 09:41 Zofran Inj IVP Q4 PRN Nausea/Vomiting Temazepam 15 mg 05/13/17 22:00 Restoril PO HS RIK - Patient Studies Lab Studies: Lab Studies 05/13/17 05/13/17 05/13/17 Range/Units 11:08 07:18 06:27 WBC (4.8-10.8) K/uL RBC (3.80-5.20) Mil/uL Hgb (11.0-16.0) g/dL Hct (34.0-47.0) % MCV (81.0-99.0) fL MCH (27.0-31.0) pg MCHC (33.0-37.0) g/dL RDW (11.5-14.5) % Plt Count (130-400) K/uL MPV (7.2-11.7) fL Neut % (Auto) (50.0-75.0) % Lymph % (Auto) (20.0-40.0) % Phelps % (Auto) (0.0-10.0) % Eos % (Auto) (0.0-4.0) % Baso % (Auto) (0.0-2.0) % Neut # (1.8-7.0) K/uL Lymph # (1.0-4.3) K/uL [place]ps # (0.0-0.8) K/uL Eos # (0.0-0.7) K/uL Baso # (0.0-0.2) K/uL Neutrophils % (Manual) (50-75) % Lymphocytes % (Manual) (20-40) % Monocytes % (Manual) (0-10) % Platelet Estimate (NORMAL) Large Platelets Hypochromasia (manual) Poikilocytosis (manual Anisocytosis (manual) Microcytosis (manual) Target Cells Ovalocytes Sodium 141 (132-148) mmol/L Potassium 3.8 (3.6-5.2) mmol/L Chloride 102 (98-107) mmol/L Carbon Dioxide 26 (22-30) mmol/L Anion Gap 17 (10-20) BUN 14 (7-17) mg/dL Creatinine 0.5 L (0.7-1.2) MG/DL Est GFR ( Amer) > 60 Est GFR (Non-Af Amer) > 60 POC Glucose (mg/dL) 176 H 128 H (65-110) mg/dL Random Glucose 116 H (65-105) mg/dL Calcium 9.2 (8.6-10.4) mg/dl Phosphorus 3.6 (2.5-4.5) mg/dL Magnesium 1.6 (1.6-2.3) mg/dL Total Bilirubin 0.8 (0.2-1.3) mg/dL AST 13 L D (14-36) U/L ALT 26 (9-52) U/L Alkaline Phosphatase < 20 L (38-126) U/L Total Protein 5.1 L (6.3-8.3) g/dL Albumin 3.8 (3.5-5.0) g/dL Globulin 1.3 L (2.2-3.9) gm/dL Albumin/Globulin Ratio 2.9 H (1.0-2.1) [place]/Lambda Light Chain (()) Free [place] Light Chains (3.3-19.4) mg/L Free Lambda Light Chain (5.7-26.3) mg/L Free [place]/Lambda Ratio (0.26-1.65) 05/13/17 05/12/17 05/12/17 Range/Units 06:27 23:50 21:07 WBC 30.5 H (4.8-10.8) K/uL RBC 3.45 L (3.80-5.20) Mil/uL Hgb 9.1 L (11.0-16.0) g/dL Hct 29.1 L (34.0-47.0) % MCV 84.3 (81.0-99.0) fL MCH 26.4 L (27.0-31.0) pg MCHC 31.3 L (33.0-37.0) g/dL RDW 19.6 H (11.5-14.5) % Plt Count 258 (130-400) K/uL MPV 8.0 (7.2-11.7) fL Neut % (Auto) 93.7 H (50.0-75.0) % Lymph % (Auto) 4.1 L (20.0-40.0) % [place] % (Auto) 1.9 (0.0-10.0) % Eos % (Auto) 0.0 (0.0-4.0) % Baso % (Auto) 0.3 (0.0-2.0) % Neut # 28.5 H (1.8-7.0) K/uL Lymph # 1.3 (1.0-4.3) K/uL [place]ps # 0.6 (0.0-0.8) K/uL Eos # 0.0 (0.0-0.7) K/uL Baso # 0.1 (0.0-0.2) K/uL Neutrophils % (Manual) 93 H (50-75) % Lymphocytes % (Manual) 6 L (20-40) % Monocytes % (Manual) 1 (0-10) % Platelet Estimate Normal (NORMAL) Large Platelets Present Hypochromasia (manual) Slight Poikilocytosis (manual Slight Anisocytosis (manual) Slight Microcytosis (manual) Slight Target Cells Slight Ovalocytes Slight Sodium (132-148) mmol/L Potassium (3.6-5.2) mmol/L Chloride (98-107) mmol/L Carbon Dioxide (22-30) mmol/L Anion Gap (10-20) BUN (7-17) mg/dL Creatinine (0.7-1.2) MG/DL Est GFR ( Amer) Est GFR (Non-Af Amer) POC Glucose (mg/dL) 92 102 (65-110) mg/dL Random Glucose (65-105) mg/dL Calcium (8.6-10.4) mg/dl Phosphorus (2.5-4.5) mg/dL Magnesium (1.6-2.3) mg/dL Total Bilirubin (0.2-1.3) mg/dL AST (14-36) U/L ALT (9-52) U/L Alkaline Phosphatase (38-126) U/L Total Protein (6.3-8.3) g/dL Albumin (3.5-5.0) g/dL Globulin (2.2-3.9) gm/dL Albumin/Globulin Ratio (1.0-2.1) [place]/Lambda Light Chain (()) Free [place] Light Chains (3.3-19.4) mg/L Free Lambda Light Chain (5.7-26.3) mg/L Free [place]/Lambda Ratio (0.26-1.65) 05/12/17 05/09/17 Range/Units 16:16 07:58 WBC (4.8-10.8) K/uL RBC (3.80-5.20) Mil/uL Hgb (11.0-16.0) g/dL Hct (34.0-47.0) % MCV (81.0-99.0) fL MCH (27.0-31.0) pg MCHC (33.0-37.0) g/dL RDW (11.5-14.5) % Plt Count (130-400) K/uL MPV (7.2-11.7) fL Neut % (Auto) (50.0-75.0) % Lymph % (Auto) (20.0-40.0) % [place] % (Auto) (0.0-10.0) % Eos % (Auto) (0.0-4.0) % Baso % (Auto) (0.0-2.0) % Neut # (1.8-7.0) K/uL Lymph # (1.0-4.3) K/uL [place] # (0.0-0.8) K/uL Eos # (0.0-0.7) K/uL Baso # (0.0-0.2) K/uL Neutrophils % (Manual) (50-75) % Lymphocytes % (Manual) (20-40) % Monocytes % (Manual) (0-10) % Platelet Estimate (NORMAL) Large Platelets Hypochromasia (manual) Poikilocytosis (manual Anisocytosis (manual) Microcytosis (manual) Target Cells Ovalocytes Sodium (132-148) mmol/L Potassium (3.6-5.2) mmol/L Chloride (98-107) mmol/L Carbon Dioxide (22-30) mmol/L Anion Gap (10-20) BUN (7-17) mg/dL Creatinine (0.7-1.2) MG/DL Est GFR ( Amer) Est GFR (Non-Af Amer) POC Glucose (mg/dL) 140 H (65-110) mg/dL Random Glucose (65-105) mg/dL Calcium (8.6-10.4) mg/dl Phosphorus (2.5-4.5) mg/dL Magnesium (1.6-2.3) mg/dL Total Bilirubin (0.2-1.3) mg/dL AST (14-36) U/L ALT (9-52) U/L Alkaline Phosphatase (38-126) U/L Total Protein (6.3-8.3) g/dL Albumin (3.5-5.0) g/dL Globulin (2.2-3.9) gm/dL Albumin/Globulin Ratio (1.0-2.1) [place]/Lambda Light Chain (()) Free [place] Light Chains 22.3 H (3.3-19.4) mg/L Free Lambda Light Chain 25.9 (5.7-26.3) mg/L Free [place]/Lambda Ratio 0.86 (0.26-1.65) Laboratory Results - last 24 hr 05/09/17 05/12/17 05/12/17 07:58 16:16 21:07 WBC RBC Hgb Hct MCV MCH MCHC RDW Plt Count MPV Neut % (Auto) Lymph % (Auto) [place] % (Auto) Eos % (Auto) Baso % (Auto) Neut # Lymph # [place] # Eos # Baso # Neutrophils % (Manual) Lymphocytes % (Manual) Monocytes % (Manual) Platelet Estimate Large Platelets Hypochromasia (manual) Poikilocytosis (manual Anisocytosis (manual) Microcytosis (manual) Target Cells Ovalocytes Sodium Potassium Chloride Carbon Dioxide Anion Gap BUN Creatinine Est GFR ( Amer) Est GFR (Non-Af Amer) POC Glucose (mg/dL) 140 H 102 Random Glucose Calcium Phosphorus Magnesium Total Bilirubin AST ALT Alkaline Phosphatase Total Protein Albumin Globulin Albumin/Globulin Ratio [place]/Lambda Light Chain Free [place] Light Chains 22.3 H Free Lambda Light Chain 25.9 Free [place]/Lambda Ratio 0.86 05/12/17 05/13/17 05/13/17 23:50 06:27 06:27 WBC 30.5 H RBC 3.45 L Hgb 9.1 L Hct 29.1 L MCV 84.3 MCH 26.4 L MCHC 31.3 L RDW 19.6 H Plt Count 258 MPV 8.0 Neut % (Auto) 93.7 H Lymph % (Auto) 4.1 L [place]ps % (Auto) 1.9 Eos % (Auto) 0.0 Baso % (Auto) 0.3 Neut # 28.5 H Lymph # 1.3 Phelps # 0.6 Eos # 0.0 Baso # 0.1 Neutrophils % (Manual) 93 H Lymphocytes % (Manual) 6 L Monocytes % (Manual) 1 Platelet Estimate Normal Large Platelets Present Hypochromasia (manual) Slight Poikilocytosis (manual Slight Anisocytosis (manual) Slight Microcytosis (manual) Slight Target Cells Slight Ovalocytes Slight Sodium 141 Potassium 3.8 Chloride 102 Carbon Dioxide 26 Anion Gap 17 BUN 14 Creatinine 0.5 L Est GFR ( Amer) > 60 Est GFR (Non-Af Amer) > 60 POC Glucose (mg/dL) 92 Random Glucose 116 H Calcium 9.2 Phosphorus 3.6 Magnesium 1.6 Total Bilirubin 0.8 AST 13 L D ALT 26 Alkaline Phosphatase < 20 L Total Protein 5.1 L Albumin 3.8 Globulin 1.3 L Albumin/Globulin Ratio 2.9 H [place]/Lambda Light Chain Free [place] Light Chains Free Lambda Light Chain Free [place]/Lambda Ratio 05/13/17 05/13/17 07:18 11:08 WBC RBC Hgb Hct MCV MCH MCHC RDW Plt Count MPV Neut % (Auto) Lymph % (Auto) Phelps % (Auto) Eos % (Auto) Baso % (Auto) Neut # Lymph # Phelps # Eos # Baso # Neutrophils % (Manual) Lymphocytes % (Manual) Monocytes % (Manual) Platelet Estimate Large Platelets Hypochromasia (manual) Poikilocytosis (manual Anisocytosis (manual) Microcytosis (manual) Target Cells Ovalocytes Sodium Potassium Chloride Carbon Dioxide Anion Gap BUN Creatinine Est GFR ( Amer) Est GFR (Non-Af Amer) POC Glucose (mg/dL) 128 H 176 H Random Glucose Calcium Phosphorus Magnesium Total Bilirubin AST ALT Alkaline Phosphatase Total Protein Albumin Globulin Albumin/Globulin Ratio [place]/Lambda Light Chain Free [place] Light Chains Free Lambda Light Chain Free [place]/Lambda Ratio Fingerstick Blood Sugar Results: 128 Review of Systems - Constitutional Constitutional: absent: Fever - EENT Ears: absent: Dizziness - Cardiovascular Cardiovascular: absent: Chest Pain, Dyspnea - Respiratory Respiratory: absent: Dyspnea - Gastrointestinal Gastrointestinal: absent: Abdominal Pain, Constipation, Diarrhea, Nausea, Vomiting - Musculoskeletal Musculoskeletal: Back Pain (sacral) - Neurological Neurological: absent: Dizziness, Headaches Critical Care Progress Note - Nutrition Nutrition: Nutrition Category Date Time Status Heart Healthy Diet [DIET] Diets 05/11/17 Dinner Active Assessment/Plan - Assessment and Plan (Free Text) Assessment: 60-year-old female with history of anxiety, depression, chronic back pain, possible obstructive sleep apnea, COPD, was brought in by the family members because of altered mental status. Patient is hypotensive and septic. Patient has sacral wound, likely cause of sepsis. Patient went to the OR today for I/D of sacral wound. Wound vac in place. Wound culture came back positive for proteus mirabilis, group c strep-- continue Primaxin and vanco. Patient has new onset of a-fib, started cardizem drip on 05/05/17. Patient was in respiratory distress on 05/06/17 and intubated. 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 Patient had second (out of 5 total) plasmapheresis on 05/10/17. Patient was extubated on 05/11/17. Patient had 3rd plasma exchange on 05/12/17. Plasmapheresis scheduled for 05/14/17. Neuro: - Alert - Neurology consulted: Dr. Irvin, help appreciated - MRI: patient refused - As per neurology, patient had 1 dose of IVIG. 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 - O2via nasal cannula (decreased from 5L to 3L) and Duonebs - Tapered down solumedrol 20mg daily (from BID); except on plasmapheresis days ( patient receives 40mg) - Continue to Monitor CV: hypotensive - Secondary to sepsis - Hx of DVT (6 weeks prior)--> Continue Eliquis 5mg PO - Venous dopplers: DVT in Right deep popliteal and left common femoral, femoral , and popliteal. Endo: no acute issues GI: - Pepcid daily - [place] healthy diet : no acute issues - UA: 1+ protein & blood, 4 Urobilinogen, 23 WBC, 8 RBC, Few bacteria. Heme: anemic - Continue to monitor H/H - Heme/onc consulted for plasmapheresis- Dr Morales, help appreciated - Surgical team placed dialysis catheter in right femoral for plasmapheresis treatments--> received first treatment on 05/07/18. As per neuro, patient requires a total of 5 treatments. - 3rd plasma exchange 05/12/17 - Plasmapheresis planned for 05/14/17, #4/5 Renal: - Elevated BUN/Cr--> resolved, 14/0.5 - Monitor renal function - Hypokalemia: improving - Hypomagnesemia: Resolved ID: Sepsis, leukocytosis, bandemia - Bandemia resolved; Leukocytosis - ID consulted: Dr. Ornelas, help appreciated - Sacral wound- Proteus Mirabilis, Group C strep - Surgery consulted: Dr. Almaraz, help appreciated--> I&D with wound vac ( vac changed q3days) - Continue Zosyn and wound care - As per ID, will likely need 6 weeks of antibiotics for sacral wound (likely osteomyelitis) - C. Diff: negative - Procalcitonin: f/u Prophylaxis: - DVT: Eliquis, SCDs - GI: Pepcid daily - PT/OT <Ruslan Eng P - Last Filed: 05/13/17 23:55> CCU Objective - Vital Signs / Intake & Output Vital Signs (Last 4 hours): Vital Signs Pulse Resp BP Pulse Ox 05/13/17 20:20 80 16 125/70 100 05/13/17 20:00 81 16 100 Intake and Output (Last 8hrs): Intake & Output 05/13/17 05/13/17 05/14/17 14:59 22:59 06:59 Intake Total 955 585 Output Total 1320 540 Balance -365 45 Weight 239 lb 6.752 oz Intake: Intake, IV Amount 575 425 Right Distal Port 575 425 Internal Jugular Oral 380 160 Output: Urine 1320 540 Urethral (Col[place]ares) 1320 540 Other: # Bowel Movements 0 0 - Medications Active Medications: Active Medications Generic Name Dose Route Start Last Admin Trade Name Freq PRN Reason Stop Dose Admin Albuterol/Ipratropium 3 ml 05/03/17 02:00 05/11/17 07:38 Duoneb 3 Mg/0.5 Mg (3 Ml) Ud INH 3 ml RQ6 RIK Administration Apixaban 5 mg 05/05/17 16:00 05/13/17 18:21 Eliquis PO 5 mg BID RIK Administration Famotidine 20 mg 05/07/17 10:00 05/13/17 09:47 Pepcid PO 20 mg DAILY RIK Administration Furosemide 40 mg 05/09/17 10:00 05/13/17 09:46 Lasix IVP 40 mg DAILY RIK Administration Piperacillin Sod/Tazobactam Sod 3.375 gm in 50 mls @ 100 mls/hr 05/05/17 19: 00 05/13/17 18:22 Zosyn 3.375 Gm Iv Premix IVPB 100 mls/hr Q6H RIK Administration Methylprednisolone 20 mg 05/11/17 10:00 05/13/17 09:46 Solu-Medrol IVP 20 mg DAILY RIK Administration Morphine Sulfate 2 mg 05/11/17 13:24 05/13/17 18:21 Morphine IV 2 mg Q6 PRN Administration Pain, moderate (4-7) Ondansetron HCl 4 mg 05/04/17 09:41 Zofran Inj IVP Q4 PRN Nausea/Vomiting Temazepam 15 mg 05/13/17 22:00 05/13/17 23:02 Restoril PO 15 mg HS RIK Administration - Patient Studies Lab Studies: Lab Studies 05/13/17 05/13/17 05/13/17 Range/Units 21:08 16:38 11:08 WBC (4.8-10.8) K/uL RBC (3.80-5.20) Mil/uL Hgb (11.0-16.0) g/dL Hct (34.0-47.0) % MCV (81.0-99.0) fL MCH (27.0-31.0) pg MCHC (33.0-37.0) g/dL RDW (11.5-14.5) % Plt Count (130-400) K/uL MPV (7.2-11.7) fL Neut % (Auto) (50.0-75.0) % Lymph % (Auto) (20.0-40.0) % Phelps % (Auto) (0.0-10.0) % Eos % (Auto) (0.0-4.0) % Baso % (Auto) (0.0-2.0) % Neut # (1.8-7.0) K/uL Lymph # (1.0-4.3) K/uL [place] # (0.0-0.8) K/uL Eos # (0.0-0.7) K/uL Baso # (0.0-0.2) K/uL Neutrophils % (Manual) (50-75) % Lymphocytes % (Manual) (20-40) % Monocytes % (Manual) (0-10) % Platelet Estimate (NORMAL) Large Platelets Hypochromasia (manual) Poikilocytosis (manual Anisocytosis (manual) Microcytosis (manual) Target Cells Ovalocytes Sodium (132-148) mmol/L Potassium (3.6-5.2) mmol/L Chloride (98-107) mmol/L Carbon Dioxide (22-30) mmol/L Anion Gap (10-20) BUN (7-17) mg/dL Creatinine (0.7-1.2) MG/DL Est GFR ( Amer) Est GFR (Non-Af Amer) POC Glucose (mg/dL) 94 121 H 176 H (65-110) mg/dL Random Glucose (65-105) mg/dL Calcium (8.6-10.4) mg/dl Phosphorus (2.5-4.5) mg/dL Magnesium (1.6-2.3) mg/dL Total Bilirubin (0.2-1.3) mg/dL AST (14-36) U/L ALT (9-52) U/L Alkaline Phosphatase (38-126) U/L Total Protein (6.3-8.3) g/dL Albumin (3.5-5.0) g/dL Globulin (2.2-3.9) gm/dL Albumin/Globulin Ratio (1.0-2.1) [place]/Lambda Light Chain (()) Free [place] Light Chains (3.3-19.4) mg/L Free Lambda Light Chain (5.7-26.3) mg/L Free [place]/Lambda Ratio (0.26-1.65) 05/13/17 05/13/17 05/13/17 Range/Units 07:18 06:27 06:27 WBC 30.5 H (4.8-10.8) K/uL RBC 3.45 L (3.80-5.20) Mil/uL Hgb 9.1 L (11.0-16.0) g/dL Hct 29.1 L (34.0-47.0) % MCV 84.3 (81.0-99.0) fL MCH 26.4 L (27.0-31.0) pg MCHC 31.3 L (33.0-37.0) g/dL RDW 19.6 H (11.5-14.5) % Plt Count 258 (130-400) K/uL MPV 8.0 (7.2-11.7) fL Neut % (Auto) 93.7 H (50.0-75.0) % Lymph % (Auto) 4.1 L (20.0-40.0) % [place] % (Auto) 1.9 (0.0-10.0) % Eos % (Auto) 0.0 (0.0-4.0) % Baso % (Auto) 0.3 (0.0-2.0) % Neut # 28.5 H (1.8-7.0) K/uL Lymph # 1.3 (1.0-4.3) K/uL [place]ps # 0.6 (0.0-0.8) K/uL Eos # 0.0 (0.0-0.7) K/uL Baso # 0.1 (0.0-0.2) K/uL Neutrophils % (Manual) 93 H (50-75) % Lymphocytes % (Manual) 6 L (20-40) % Monocytes % (Manual) 1 (0-10) % Platelet Estimate Normal (NORMAL) Large Platelets Present Hypochromasia (manual) Slight Poikilocytosis (manual Slight Anisocytosis (manual) Slight Microcytosis (manual) Slight Target Cells Slight Ovalocytes Slight Sodium 141 (132-148) mmol/L Potassium 3.8 (3.6-5.2) mmol/L Chloride 102 (98-107) mmol/L Carbon Dioxide 26 (22-30) mmol/L Anion Gap 17 (10-20) BUN 14 (7-17) mg/dL Creatinine 0.5 L (0.7-1.2) MG/DL Est GFR ( Amer) > 60 Est GFR (Non-Af Amer) > 60 POC Glucose (mg/dL) 128 H (65-110) mg/dL Random Glucose 116 H (65-105) mg/dL Calcium 9.2 (8.6-10.4) mg/dl Phosphorus 3.6 (2.5-4.5) mg/dL Magnesium 1.6 (1.6-2.3) mg/dL Total Bilirubin 0.8 (0.2-1.3) mg/dL AST 13 L D (14-36) U/L ALT 26 (9-52) U/L Alkaline Phosphatase < 20 L (38-126) U/L Total Protein 5.1 L (6.3-8.3) g/dL Albumin 3.8 (3.5-5.0) g/dL Globulin 1.3 L (2.2-3.9) gm/dL Albumin/Globulin Ratio 2.9 H (1.0-2.1) [place]/Lambda Light Chain (()) Free [place] Light Chains (3.3-19.4) mg/L Free Lambda Light Chain (5.7-26.3) mg/L Free [place]/Lambda Ratio (0.26-1.65) 08/23/17 08/20/17 Range/Units 23:50 07:58 WBC (4.8-10.8) K/uL RBC (3.80-5.20) Mil/uL Hgb (11.0-16.0) g/dL Hct (34.0-47.0) % MCV (81.0-99.0) fL MCH (27.0-31.0) pg MCHC (33.0-37.0) g/dL RDW (11.5-14.5) % Plt Count (130-400) K/uL MPV (7.2-11.7) fL Neut % (Auto) (50.0-75.0) % Lymph % (Auto) (20.0-40.0) % [place] % (Auto) (0.0-10.0) % Eos % (Auto) (0.0-4.0) % Baso % (Auto) (0.0-2.0) % Neut # (1.8-7.0) K/uL Lymph # (1.0-4.3) K/uL [place]ps # (0.0-0.8) K/uL Eos # (0.0-0.7) K/uL Baso # (0.0-0.2) K/uL Neutrophils % (Manual) (50-75) % Lymphocytes % (Manual) (20-40) % Monocytes % (Manual) (0-10) % Platelet Estimate (NORMAL) Large Platelets Hypochromasia (manual) Poikilocytosis (manual Anisocytosis (manual) Microcytosis (manual) Target Cells Ovalocytes Sodium (132-148) mmol/L Potassium (3.6-5.2) mmol/L Chloride (98-107) mmol/L Carbon Dioxide (22-30) mmol/L Anion Gap (10-20) BUN (7-17) mg/dL Creatinine (0.7-1.2) MG/DL Est GFR ( Amer) Est GFR (Non-Af Amer) POC Glucose (mg/dL) 92 (65-110) mg/dL Random Glucose (65-105) mg/dL Calcium (8.6-10.4) mg/dl Phosphorus (2.5-4.5) mg/dL Magnesium (1.6-2.3) mg/dL Total Bilirubin (0.2-1.3) mg/dL AST (14-36) U/L ALT (9-52) U/L Alkaline Phosphatase (38-126) U/L Total Protein (6.3-8.3) g/dL Albumin (3.5-5.0) g/dL Globulin (2.2-3.9) gm/dL Albumin/Globulin Ratio (1.0-2.1) [place]/Lambda Light Chain (()) Free [place] Light Chains 22.3 H (3.3-19.4) mg/L Free Lambda Light Chain 25.9 (5.7-26.3) mg/L Free [place]/Lambda Ratio 0.86 (0.26-1.65) Laboratory Results - last 24 hr 05/09/17 05/12/17 05/13/17 07:58 23:50 06:27 WBC 30.5 H RBC 3.45 L Hgb 9.1 L Hct 29.1 L MCV 84.3 MCH 26.4 L MCHC 31.3 L RDW 19.6 H Plt Count 258 MPV 8.0 Neut % (Auto) 93.7 H Lymph % (Auto) 4.1 L [place] % (Auto) 1.9 Eos % (Auto) 0.0 Baso % (Auto) 0.3 Neut # 28.5 H Lymph # 1.3 [place] # 0.6 Eos # 0.0 Baso # 0.1 Neutrophils % (Manual) 93 H Lymphocytes % (Manual) 6 L Monocytes % (Manual) 1 Platelet Estimate Normal Large Platelets Present Hypochromasia (manual) Slight Poikilocytosis (manual Slight Anisocytosis (manual) Slight Microcytosis (manual) Slight Target Cells Slight Ovalocytes Slight Sodium Potassium Chloride Carbon Dioxide Anion Gap BUN Creatinine Est GFR ( Amer) Est GFR (Non-Af Amer) POC Glucose (mg/dL) 92 Random Glucose Calcium Phosphorus Magnesium Total Bilirubin AST ALT Alkaline Phosphatase Total Protein Albumin Globulin Albumin/Globulin Ratio [place]/Lambda Light Chain Free [place] Light Chains 22.3 H Free [place] Light Chain 25.9 Free [place]/Lambda Ratio 0.86 05/13/17 05/13/17 05/13/17 06:27 07:18 11:08 WBC RBC Hgb Hct MCV MCH MCHC RDW Plt Count MPV Neut % (Auto) Lymph % (Auto) [place] % (Auto) Eos % (Auto) Baso % (Auto) Neut # Lymph # [place] # Eos # Baso # Neutrophils % (Manual) Lymphocytes % (Manual) Monocytes % (Manual) Platelet Estimate Large Platelets Hypochromasia (manual) Poikilocytosis (manual Anisocytosis (manual) Microcytosis (manual) Target Cells Ovalocytes Sodium 141 Potassium 3.8 Chloride 102 Carbon Dioxide 26 Anion Gap 17 BUN 14 Creatinine 0.5 L Est GFR ( Amer) > 60 Est GFR (Non-Af Amer) > 60 POC Glucose (mg/dL) 128 H 176 H Random Glucose 116 H Calcium 9.2 Phosphorus 3.6 Magnesium 1.6 Total Bilirubin 0.8 AST 13 L D ALT 26 Alkaline Phosphatase < 20 L Total Protein 5.1 L Albumin 3.8 Globulin 1.3 L Albumin/Globulin Ratio 2.9 H [place]/Lambda Light Chain Free [place] Light Chains Free Lambda Light Chain Free [place]/Lambda Ratio 05/13/17 05/13/17 16:38 21:08 WBC RBC Hgb Hct MCV MCH MCHC RDW Plt Count MPV Neut % (Auto) Lymph % (Auto) [place] % (Auto) Eos % (Auto) Baso % (Auto) Neut # Lymph # [place] # Eos # Baso # Neutrophils % (Manual) Lymphocytes % (Manual) Monocytes % (Manual) Platelet Estimate Large Platelets Hypochromasia (manual) Poikilocytosis (manual Anisocytosis (manual) Microcytosis (manual) Target Cells Ovalocytes Sodium Potassium Chloride Carbon Dioxide Anion Gap BUN Creatinine Est GFR ( Amer) Est GFR (Non-Af Amer) POC Glucose (mg/dL) 121 H 94 Random Glucose Calcium Phosphorus Magnesium Total Bilirubin AST ALT Alkaline Phosphatase Total Protein Albumin Globulin Albumin/Globulin Ratio [place]/Lambda Light Chain Free [place] Light Chains Free Lambda Light Chain Free [place]/Lambda Ratio Critical Care Progress Note - Nutrition Nutrition: Nutrition Category Date Time Status Heart Healthy Diet [DIET] Diets 05/11/17 Dinner Active Attending/Attestation - Attestation I have personally seen and examined this patient.: Yes I have fully participated in the care of the patient.: Yes I have reviewed all pertinent clinical information: Yes Notes (Text): 05/13/17 23:53 No new complains, stable vitals, wound vac for sacral wound, for prolonged abx suspecting OM, suspected GBS, on plasmapheresis, obese, bed bound for last 3 months, 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
--- NOTE | 2017-05-13 13:23 | PN ---
DATE: 05/13/2017 TIME OF EVALUATION: 7:10 a.m. NEUROLOGICAL PROBLEM: Acute inflammatory demyelinating neuropathy, on plasmapheresis. PHYSICAL EXAMINATION: VITAL SIGNS: Blood pressure 144/77, mean arterial pressure of 86, respiratory rate 18, temperature afebrile, pulse rate 85. GENERAL: The patient is more awake, alert. Mentation is normal. CRANIAL NERVE EXAMINATION: Normal. Quadriparesis involving legs more than arms. She was able to lift both upper extremities against the gravity. Both lower extremities is 3/5. Plantars are mute. Sensory examination; response to pain. Posterior column dysfunction in both lower extremities. The patient complaining of poor sleep. RECOMMENDATION: 1. Restoril at 50 mg at bedtime. 2. Continue the plasma exchange as recommended. 3. DVT prophylaxis. The patient will be followed closely with you. Mario Irvin MD MTDD
--- NOTE | 2017-05-13 14:26 | PCM.RRTMUL ---
[employer] Nurses Assessment - Ventilator Settings FIO2 (% Oxygen):: 40 - Vital Signs Blood Pressure:: 120/73
--- NOTE | 2017-05-13 16:35 | CP.PCM.PN ---
Subjective - Date & Time of Evaluation Date of Evaluation: 05/13/17 Time of Evaluation: 13:00 - Subjective Subjective: Feeling better plasma exchange 3 of 5 completed yesterday Objective - Vital Signs/Intake and Output Vital Signs (last 24 hours): Temp Pulse Resp BP Pulse Ox 97.4 F L 75 19 114/60 98 05/13/17 08:00 05/13/17 15:20 05/13/17 15:20 05/13/17 15:20 05/13/17 15:20 Intake and Output: 05/13/17 05/13/17 06:59 18:59 Intake Total 1099 830 Output Total 750 1520 Balance 349 -690 - Medications Medications: Current Medications Albuterol/Ipratropium (Duoneb 3 Mg/0.5 Mg (3 Ml) Ud) 3 ml INH RQ6 [facility] Last Admin: 05/11/17 07:38 Dose: 3 ml Apixaban (Eliquis) 5 mg PO BID [facility] Last Admin: 05/13/17 09:47 Dose: 5 mg Famotidine (Pepcid) 20 mg PO DAILY [facility] Last Admin: 05/13/17 09:47 Dose: 20 mg Furosemide (Lasix) 40 mg IVP DAILY [facility] Last Admin: 05/13/17 09:46 Dose: 40 mg Piperacillin Sod/Tazobactam Sod (Zosyn 3.375 Gm Iv Premix) 3.375 gm in 50 mls @ 100 mls/hr IVPB Q6H [facility] Last Admin: 05/13/17 14:11 Dose: 100 mls/hr Methylprednisolone (Solu-Medrol) 20 mg IVP DAILY [facility] Last Admin: 05/13/17 09:46 Dose: 20 mg Morphine Sulfate (Morphine) 2 mg IV Q6 PRN PRN Reason: Pain, moderate (4-7) Last Admin: 05/13/17 11:48 Dose: 2 mg Ondansetron HCl (Zofran Inj) 4 mg IVP Q4 PRN PRN Reason: Nausea/Vomiting Temazepam (Restoril) 15 mg PO HS [facility] - Labs Labs: 05/13/17 06:27 05/13/17 06:27 PT 12.4 SECONDS (9.7-12.2) H 05/05/17 06:40 INR 1.1 05/05/17 06:40 APTT 27 SECONDS (21-34) 05/04/17 06:35 - Head Exam Head Exam: ATRAUMATIC - Eye Exam Eye Exam: Normal appearance - ENT Exam ENT Exam: Mucous Membranes Dry - Respiratory Exam Respiratory Exam: NORMAL BREATHING PATTERN - Cardiovascular Exam Cardiovascular Exam: +S1, +S2 - GI/Abdominal Exam GI & Abdominal Exam: Normal Bowel Sounds Assessment and Plan (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
--- NOTE | 2017-05-13 17:56 | CP.PCM.PN ---
Subjective - Date & Time of Evaluation Date of Evaluation: 05/13/17 Time of Evaluation: 08:00 - Subjective Subjective: remains weak plasma exchange completed iv rx for om to cont Objective - Vital Signs/Intake and Output Vital Signs (last 24 hours): Temp Pulse Resp BP Pulse Ox 97.4 F L 82 20 125/64 98 05/13/17 08:00 05/13/17 16:20 05/13/17 16:20 05/13/17 16:20 05/13/17 16:20 Intake and Output: 05/13/17 05/13/17 06:59 18:59 Intake Total 1099 1105 Output Total 750 1640 Balance 349 -535 - Medications Medications: Current Medications Albuterol/Ipratropium (Duoneb 3 Mg/0.5 Mg (3 Ml) Ud) 3 ml INH RQ6 [facility] Last Admin: 05/11/17 07:38 Dose: 3 ml Apixaban (Eliquis) 5 mg PO BID [facility] Last Admin: 05/13/17 09:47 Dose: 5 mg Famotidine (Pepcid) 20 mg PO DAILY [facility] Last Admin: 05/13/17 09:47 Dose: 20 mg Furosemide (Lasix) 40 mg IVP DAILY [facility] Last Admin: 05/13/17 09:46 Dose: 40 mg Piperacillin Sod/Tazobactam Sod (Zosyn 3.375 Gm Iv Premix) 3.375 gm in 50 mls @ 100 mls/hr IVPB Q6H [facility] Last Admin: 05/13/17 14:11 Dose: 100 mls/hr Methylprednisolone (Solu-Medrol) 20 mg IVP DAILY [facility] Last Admin: 05/13/17 09:46 Dose: 20 mg Morphine Sulfate (Morphine) 2 mg IV Q6 PRN PRN Reason: Pain, moderate (4-7) Last Admin: 05/13/17 11:48 Dose: 2 mg Ondansetron HCl (Zofran Inj) 4 mg IVP Q4 PRN PRN Reason: Nausea/Vomiting Temazepam (Restoril) 15 mg PO HS [facility] - Labs Labs: 05/13/17 06:27 05/13/17 06:27 PT 12.4 SECONDS (9.7-12.2) H 05/05/17 06:40 INR 1.1 05/05/17 06:40 APTT 27 SECONDS (21-34) 05/04/17 06:35 - Constitutional Appears: Non-toxic, Cachectic, Chronically Ill - Head Exam Head Exam: NORMOCEPHALIC - Eye Exam Eye Exam: PERRL. absent: Scleral icterus - ENT Exam ENT Exam: Mucous Membranes Dry - Neck Exam Neck Exam: absent: Lymphadenopathy - Respiratory Exam Respiratory Exam: Decreased Breath Sounds - Cardiovascular Exam Cardiovascular Exam: REGULAR RHYTHM - GI/Abdominal Exam GI & Abdominal Exam: Distended - Rectal Exam Rectal Exam: Deferred - Exam Exam: NORMAL INSPECTION - Extremities Exam Extremities Exam: absent: Pedal Edema - Back Exam Back Exam: absent: CVA tenderness (L), CVA tenderness (R) - Neurological Exam Neurological Exam: Awake - Psychiatric Exam Psychiatric exam: Depressed - Skin Skin Exam: Dry Assessment and Plan (1) Dehydration Status: Acute (2) Hypotension Status: Acute (3) Sepsis Status: Acute (4) Morbidly obese Status: Chronic (5) Altered mental status Status: Acute (6) Anxiety Status: Acute (7) Cellulitis Status: Acute (8) Chronic pain Status: Acute (9) Weakness Status: Acute (10) COPD (chronic obstructive pulmonary disease) Status: Chronic (11) HTN (hypertension) Status: Chronic (12) OPHELIA (obstructive sleep apnea) Status: Chronic (13) Spinal stenosis Status: Chronic
--- NOTE | 2017-05-13 19:35 | CP.PCM.PN ---
Subjective - Date & Time of Evaluation Date of Evaluation: 05/13/17 Time of Evaluation: 19:35 Objective - Vital Signs/Intake and Output Vital Signs (last 24 hours): Temp Pulse Resp BP Pulse Ox 97.4 F L 78 18 140/78 100 05/13/17 08:00 05/13/17 19:00 05/13/17 19:00 05/13/17 18:21 05/13/17 19:00 Intake and Output: 05/13/17 05/14/17 18:59 06:59 Intake Total 1415 50 Output Total 1780 80 Balance -365 -30 - Medications Medications: Current Medications Albuterol/Ipratropium (Duoneb 3 Mg/0.5 Mg (3 Ml) Ud) 3 ml INH RQ6 [facility] Last Admin: 05/11/17 07:38 Dose: 3 ml Apixaban (Eliquis) 5 mg PO BID [facility] Last Admin: 05/13/17 18:21 Dose: 5 mg Famotidine (Pepcid) 20 mg PO DAILY [facility] Last Admin: 05/13/17 09:47 Dose: 20 mg Furosemide (Lasix) 40 mg IVP DAILY [facility] Last Admin: 05/13/17 09:46 Dose: 40 mg Piperacillin Sod/Tazobactam Sod (Zosyn 3.375 Gm Iv Premix) 3.375 gm in 50 mls @ 100 mls/hr IVPB Q6H [facility] Last Admin: 05/13/17 18:22 Dose: 100 mls/hr Methylprednisolone (Solu-Medrol) 20 mg IVP DAILY [facility] Last Admin: 05/13/17 09:46 Dose: 20 mg Morphine Sulfate (Morphine) 2 mg IV Q6 PRN PRN Reason: Pain, moderate (4-7) Last Admin: 05/13/17 18:21 Dose: 2 mg Ondansetron HCl (Zofran Inj) 4 mg IVP Q4 PRN PRN Reason: Nausea/Vomiting Temazepam (Restoril) 15 mg PO HS [facility] - Labs Labs: 05/13/17 06:27 05/13/17 06:27 PT 12.4 SECONDS (9.7-12.2) H 05/05/17 06:40 INR 1.1 05/05/17 06:40 APTT 27 SECONDS (21-34) 05/04/17 06:35
[2017-05-14] MEDS: Piperacill/Tazo 3.375gm in Dex 3.375 GM/50 ML BAG IVPB SCH ×4 (01:00→18:28)
[2017-05-14 06:40] LABS: BASO # 0.2 K/uL (0.0-0.2); BASO % 0.6 % (0.0-2.0); EOS # 0.9 K/uL (0.0-0.7); EOS % 2.6 % (0.0-4.0); HEMATOCRIT 28.3 % (34.0-47.0); LYMPH # 3.4 K/uL (1.0-4.3); LYMPH % 9.8 % (20.0-40.0); MEAN CELL VOLUME 84.7 fL (81.0-99.0); MEAN CORPUSCULAR HGB CONC 30.7 g/dL (33.0-37.0); MEAN PLATELET VOLUME 8.4 fL (7.2-11.7); MONO # 1.3 K/uL (0.0-0.8); MONO % 3.8 % (0.0-10.0); PLATELET COUNT 272 K/uL (130-400); RED CELL DISTRIBUTION WIDTH 19.7 % (11.5-14.5); WHITE BLOOD COUNT 34.5 K/uL (4.8-10.8)
[2017-05-14 07:07] LABS: CHLORIDE 100 mmol/L (98-107)
[2017-05-14 07:08] LABS: POTASSIUM 2.6 mmol/L (3.6-5.2); SODIUM 141 mmol/L (132-148)
[2017-05-14 07:10] LABS: ALB/GLOB RATIO 1.9 (1.0-2.1); ALKALINE PHOSPHATASE 24 U/L (38-126); AST/SGOT 23 U/L (14-36); BILIRUBIN,TOTAL 0.9 mg/dL (0.2-1.3); BLOOD UREA NITROGEN 15 mg/dL (7-17); CARBON DIOXIDE 29 mmol/L (22-30); GFR AFRICAN-AMERICAN > 60; GLUCOSE,RANDOM 87 mg/dL (65-105); TOTAL PROTEIN 5.3 g/dL (6.3-8.3)
[2017-05-14 07:11] LABS: ALT/SGPT 27 U/L (9-52); CALCIUM 9.1 mg/dl (8.6-10.4); MAGNESIUM 1.4 mg/dL (1.6-2.3)
[2017-05-14] MEDS ORDERED: Potassium Chloride 20 mEq ER Tab PO ONE (08:08)
[2017-05-14] MEDS: Magnesium Sulfate 1 gm in D5W 1 GM/100 ML BAG IVPB SCH ×2 (08:25→09:40)
[2017-05-14 08:53] LABS: EOSINOPHIL 7 % (0-4); NEUTROPHIL 80 % (50-75); TOTAL CELLS COUNTED 100
[2017-05-14 09:20] LABS: RBC URINE 15 /hpf (0-3); URINE BACTERIA RARE (<OCC); URINE BILIRUBIN NEGATIVE (NEGATIVE); URINE BLOOD 1+ (NEGATIVE); URINE COLOR Yellow (YELLOW); URINE GLUCOSE (UA) NORMAL (Normal); URINE HYALINE CAST 0-2 /lpf (0-2); URINE KETONE NEGATIVE (NEGATIVE); URINE LEUKOCYTE ESTERASE 2+ Leu/uL (Negative); URINE PROTEIN 1+ mg/dL (NEGATIVE); URINE UROBILINOGEN NORMAL mg/dL (0.2-1.0); WBC URINE 31 /hpf (0-5)
[2017-05-14] MEDS: MethylPREDNISolone 40 mg Vial IVP SCH (09:38)
--- NOTE | 2017-05-14 11:45 | CP.CCUPN ---
<Kelley Myesr - Last Filed: 05/14/17 11:40> CCU Subjective - Physician Review Subjective (Free Text): Patient was seen and examined at bedside in the morning. Patient alert and oriented. Patient denies having chest pain, abdominal pain, dizziness, nausea, vomiting, and fevers. 05/14/17 11:40 CCU Objective - Vital Signs / Intake & Output Vital Signs (Last 4 hours): Vital Signs BP 05/14/17 09:41 107/56 L Intake and Output (Last 8hrs): Intake & Output 05/13/17 05/14/17 05/14/17 22:59 06:59 14:59 Intake Total 660 50 Output Total 675 355 45 Balance -15 -305 -45 Intake: Intake, IV Amount 350 50 Right Distal Port 350 50 Internal Jugular Oral 310 Output: Drainage 0 Wound Vac 0 Urine 675 355 45 Urethral (Colmenares) 675 355 45 Other: # Bowel Movements 0 0 0 - Physical Exam Head: Positive for: Atraumatic, Normocephalic Extroacular Muscles: Positive for: EOMI Mouth: Positive for: Moist Mucous Membranes Respiratory/Chest: Positive for: Good Air Exchange. Negative for: Clear to Auscultation, Accessory Muscle Use, Wheezes, Decreased Breath Sounds, Rales, Rhonchi, Tachypneic Cardiovascular: Positive for: Normal S1, S2. Negative for: Tachycardic, Bradycardic Abdomen: Positive for: Other (Obese). Negative for: Tenderness, Normal Bowel Sounds (hypoactive) Rectal: Positive for: Other (Sacral wound) Upper Extremity: Positive for: Normal Inspection. Negative for: Edema Lower Extremity: Positive for: Normal Inspection Skin: Positive for: Warm, Dry, Normal Color, Other (sacral wound- copious drainage) Psychiatric: Positive for: Alert, Oriented x 3, Normal Insight, Normal Concentration, Normal Affect, Normal Mood - Medications Active Medications: Active Medications Generic Name Dose Route Start Last Admin Trade Name Freq PRN Reason Stop Dose Admin Albuterol/Ipratropium 3 ml 05/03/17 02:00 05/11/17 07:38 Duoneb 3 Mg/0.5 Mg (3 Ml) Ud INH 3 ml RQ6 RIK Administration Apixaban 5 mg 05/05/17 16:00 05/13/17 18:21 Eliquis PO 5 mg BID RIK Administration Famotidine 20 mg 05/07/17 10:00 05/14/17 09:39 Pepcid PO 20 mg DAILY RIK Administration Furosemide 40 mg 05/09/17 10:00 05/14/17 09:41 Lasix IVP 40 mg DAILY RIK Administration Piperacillin Sod/Tazobactam Sod 3.375 gm in 50 mls @ 100 mls/hr 05/05/17 19: 00 05/14/17 06:30 Zosyn 3.375 Gm Iv Premix IVPB 100 mls/hr Q6H RIK Administration Potassium Chloride 20 meq in 100 mls @ 50 mls/hr 05/14/17 08:15 05/14/17 08: 24 Potassium Chloride 20 Meq/100 Ml IVPB 05/14/17 12:14 50 mls/hr Q2H RIK Administration Methylprednisolone 20 mg 05/11/17 10:00 05/14/17 09:38 Solu-Medrol IVP 20 mg DAILY RIK Administration Morphine Sulfate 2 mg 05/11/17 13:24 05/14/17 08:27 Morphine IV 2 mg Q6 PRN Administration Pain, moderate (4-7) Ondansetron HCl 4 mg 05/04/17 09:41 Zofran Inj IVP Q4 PRN Nausea/Vomiting Temazepam 15 mg 05/13/17 22:00 05/13/17 23:02 Restoril PO 15 mg HS RIK Administration - Patient Studies Lab Studies: Lab Studies 05/14/17 05/14/17 05/14/17 Range/Units 09:08 08: 07:24 WBC (4.8-10.8) K/uL RBC (3.80-5.20) Mil/uL Hgb (11.0-16.0) g/dL Hct (34.0-47.0) % MCV (81.0-99.0) fL MCH (27.0-31.0) pg MCHC (33.0-37.0) g/dL RDW (11.5-14.5) % Plt Count (130-400) K/uL MPV (7.2-11.7) fL Neut % (Auto) (50.0-75.0) % Lymph % (Auto) (20.0-40.0) % Morrow % (Auto) (0.0-10.0) % Eos % (Auto) (0.0-4.0) % Baso % (Auto) (0.0-2.0) % Neut # (1.8-7.0) K/uL Lymph # (1.0-4.3) K/uL Morrow # (0.0-0.8) K/uL Eos # (0.0-0.7) K/uL Baso # (0.0-0.2) K/uL Neutrophils % (Manual) (50-75) % Band Neutrophils % (0-2) % Lymphocytes % (Manual) (20-40) % Monocytes % (Manual) (0-10) % Eosinophils % (Manual) (0-4) % Platelet Estimate (NORMAL) Hypochromasia (manual) Poikilocytosis (manual Anisocytosis (manual) Target Cells ESR 3 (0-20) mm/hr Sodium (132-148) mmol/L Potassium (3.6-5.2) mmol/L Chloride (98-107) mmol/L Carbon Dioxide (22-30) mmol/L Anion Gap (10-20) BUN (7-17) mg/dL Creatinine (0.7-1.2) MG/DL Est GFR ( Amer) Est GFR (Non-Af Amer) POC Glucose (mg/dL) 97 (65-110) mg/dL Random Glucose (65-105) mg/dL Calcium (8.6-10.4) mg/dl Phosphorus (2.5-4.5) mg/dL Magnesium (1.6-2.3) mg/dL Total Bilirubin (0.2-1.3) mg/dL AST (14-36) U/L ALT (9-52) U/L Alkaline Phosphatase (38-126) U/L Total Protein (6.3-8.3) g/dL Albumin (3.5-5.0) g/dL Globulin (2.2-3.9) gm/dL Albumin/Globulin Ratio (1.0-2.1) Urine Color Yellow (YELLOW) Urine Clarity Clear (Clear) Urine pH 6.0 (5.0-8.0) Ur Specific [place] 1.019 (1.003-1.030) Urine Protein 1+ H (NEGATIVE) mg/dL Urine Glucose (UA) Normal (Normal) mg/dL Urine Ketones Negative (NEGATIVE) mg/dL Urine Blood 1+ H (NEGATIVE) Urine Nitrate Negative (NEGATIVE) Urine Bilirubin Negative (NEGATIVE) Urine Urobilinogen Normal (0.2-1.0) mg/dL Ur Leukocyte Esterase 2+ H (Negative) Mendoza/uL Urine WBC (Auto) 31 H (0-5) /hpf Urine RBC (Auto) 15 H (0-3) /hpf Ur Squamous Epith Cells < 1 (0-5) /hpf Urine Bacteria Rare (<OCC) Hyaline Casts 0-2 (0-2) /lpf Urine Yeast (Budding) Occ H (NEGATIVE) /hpf 05/14/17 05/14/17 05/13/17 Range/Units 06:26 06:25 21:08 WBC 34.5 H (4.8-10.8) K/uL RBC 3.34 L (3.80-5.20) Mil/uL Hgb 8.7 L (11.0-16.0) g/dL Hct 28.3 L (34.0-47.0) % MCV 84.7 (81.0-99.0) fL MCH 26.0 L (27.0-31.0) pg MCHC 30.7 L (33.0-37.0) g/dL RDW 19.7 H (11.5-14.5) % Plt Count 272 (130-400) K/uL MPV 8.4 (7.2-11.7) fL Neut % (Auto) 83.2 H (50.0-75.0) % Lymph % (Auto) 9.8 L (20.0-40.0) % Morrow % (Auto) 3.8 (0.0-10.0) % Eos % (Auto) 2.6 (0.0-4.0) % Baso % (Auto) 0.6 (0.0-2.0) % Neut # 28.8 H (1.8-7.0) K/uL Lymph # 3.4 (1.0-4.3) K/uL Morrow # 1.3 H (0.0-0.8) K/uL Eos # 0.9 H (0.0-0.7) K/uL Baso # 0.2 (0.0-0.2) K/uL Neutrophils % (Manual) 80 H (50-75) % Band Neutrophils % 1 (0-2) % Lymphocytes % (Manual) 10 L (20-40) % Monocytes % (Manual) 2 (0-10) % Eosinophils % (Manual) 7 H (0-4) % Platelet Estimate Normal (NORMAL) Hypochromasia (manual) Moderate Poikilocytosis (manual Slight Anisocytosis (manual) Slight Target Cells Slight ESR (0-20) mm/hr Sodium 141 (132-148) mmol/L Potassium 2.6 L (3.6-5.2) mmol/L Chloride 100 (98-107) mmol/L Carbon Dioxide 29 (22-30) mmol/L Anion Gap 15 (10-20) BUN 15 (7-17) mg/dL Creatinine 0.6 L (0.7-1.2) MG/DL Est GFR ( Amer) > 60 Est GFR (Non-Af Amer) > 60 POC Glucose (mg/dL) 94 (65-110) mg/dL Random Glucose 87 (65-105) mg/dL Calcium 9.1 (8.6-10.4) mg/dl Phosphorus 3.0 (2.5-4.5) mg/dL Magnesium 1.4 L (1.6-2.3) mg/dL Total Bilirubin 0.9 (0.2-1.3) mg/dL AST 23 (14-36) U/L ALT 27 (9-52) U/L Alkaline Phosphatase 24 L D (38-126) U/L Total Protein 5.3 L (6.3-8.3) g/dL Albumin 3.5 (3.5-5.0) g/dL Globulin 1.8 L (2.2-3.9) gm/dL Albumin/Globulin Ratio 1.9 (1.0-2.1) Urine Color (YELLOW) Urine Clarity (Clear) Urine pH (5.0-8.0) Ur Specific [place] (1.003-1.030) Urine Protein (NEGATIVE) mg/dL Urine Glucose (UA) (Normal) mg/dL Urine Ketones (NEGATIVE) mg/dL Urine Blood (NEGATIVE) Urine Nitrate (NEGATIVE) Urine Bilirubin (NEGATIVE) Urine Urobilinogen (0.2-1.0) mg/dL Ur Leukocyte Esterase (Negative) Mendoza/uL Urine WBC (Auto) (0-5) /hpf Urine RBC (Auto) (0-3) /hpf Ur Squamous Epith Cells (0-5) /hpf Urine Bacteria (<OCC) Hyaline Casts (0-2) /lpf Urine Yeast (Budding) (NEGATIVE) /hpf 05/13/17 Range/Units 16:38 WBC (4.8-10.8) K/uL RBC (3.80-5.20) Mil/uL Hgb (11.0-16.0) g/dL Hct (34.0-47.0) % MCV (81.0-99.0) fL MCH (27.0-31.0) pg MCHC (33.0-37.0) g/dL RDW (11.5-14.5) % Plt Count (130-400) K/uL MPV (7.2-11.7) fL Neut % (Auto) (50.0-75.0) % Lymph % (Auto) (20.0-40.0) % Morrow % (Auto) (0.0-10.0) % Eos % (Auto) (0.0-4.0) % Baso % (Auto) (0.0-2.0) % Neut # (1.8-7.0) K/uL Lymph # (1.0-4.3) K/uL Morrow # (0.0-0.8) K/uL Eos # (0.0-0.7) K/uL Baso # (0.0-0.2) K/uL Neutrophils % (Manual) (50-75) % Band Neutrophils % (0-2) % Lymphocytes % (Manual) (20-40) % Monocytes % (Manual) (0-10) % Eosinophils % (Manual) (0-4) % Platelet Estimate (NORMAL) Hypochromasia (manual) Poikilocytosis (manual Anisocytosis (manual) Target Cells ESR (0-20) mm/hr Sodium (132-148) mmol/L Potassium (3.6-5.2) mmol/L Chloride (98-107) mmol/L Carbon Dioxide (22-30) mmol/L Anion Gap (10-20) BUN (7-17) mg/dL Creatinine (0.7-1.2) MG/DL Est GFR ( Amer) Est GFR (Non-Af Amer) POC Glucose (mg/dL) 121 H (65-110) mg/dL Random Glucose (65-105) mg/dL Calcium (8.6-10.4) mg/dl Phosphorus (2.5-4.5) mg/dL Magnesium (1.6-2.3) mg/dL Total Bilirubin (0.2-1.3) mg/dL AST (14-36) U/L ALT (9-52) U/L Alkaline Phosphatase (38-126) U/L Total Protein (6.3-8.3) g/dL Albumin (3.5-5.0) g/dL Globulin (2.2-3.9) gm/dL Albumin/Globulin Ratio (1.0-2.1) Urine Color (YELLOW) Urine Clarity (Clear) Urine pH (5.0-8.0) Ur Specific [place] (1.003-1.030) Urine Protein (NEGATIVE) mg/dL Urine Glucose (UA) (Normal) mg/dL Urine Ketones (NEGATIVE) mg/dL Urine Blood (NEGATIVE) Urine Nitrate (NEGATIVE) Urine Bilirubin (NEGATIVE) Urine Urobilinogen (0.2-1.0) mg/dL Ur Leukocyte Esterase (Negative) Mendoza/uL Urine WBC (Auto) (0-5) /hpf Urine RBC (Auto) (0-3) /hpf Ur Squamous Epith Cells (0-5) /hpf Urine Bacteria (<OCC) Hyaline Casts (0-2) /lpf Urine Yeast (Budding) (NEGATIVE) /hpf Laboratory Results - last 24 hr 05/13/17 05/13/17 05/14/17 16:38 21:08 06:25 WBC 34.5 H RBC 3.34 L Hgb 8.7 L Hct 28.3 L MCV 84.7 MCH 26.0 L MCHC 30.7 L RDW 19.7 H Plt Count 272 MPV 8.4 Neut % (Auto) 83.2 H Lymph % (Auto) 9.8 L Morrow % (Auto) 3.8 Eos % (Auto) 2.6 Baso % (Auto) 0.6 Neut # 28.8 H Lymph # 3.4 Morrow # 1.3 H Eos # 0.9 H Baso # 0.2 Neutrophils % (Manual) 80 H Band Neutrophils % 1 Lymphocytes % (Manual) 10 L Monocytes % (Manual) 2 Eosinophils % (Manual) 7 H Platelet Estimate Normal Hypochromasia (manual) Moderate Poikilocytosis (manual Slight Anisocytosis (manual) Slight Target Cells Slight ESR Sodium Potassium Chloride Carbon Dioxide Anion Gap BUN Creatinine Est GFR ( Amer) Est GFR (Non-Af Amer) POC Glucose (mg/dL) 121 H 94 Random Glucose Calcium Phosphorus Magnesium Total Bilirubin AST ALT Alkaline Phosphatase Total Protein Albumin Globulin Albumin/Globulin Ratio Urine Color Urine Clarity Urine pH Ur Specific [place] Urine Protein Urine Glucose (UA) Urine Ketones Urine Blood Urine Nitrate Urine Bilirubin Urine Urobilinogen Ur Leukocyte Esterase Urine WBC (Auto) Urine RBC (Auto) Ur Squamous Epith Cells Urine Bacteria Hyaline Casts Urine Yeast (Budding) 05/14/17 05/14/17 05/14/17 06:26 07:24 08:17 WBC RBC Hgb Hct MCV MCH MCHC RDW Plt Count MPV Neut % (Auto) Lymph % (Auto) Morrow % (Auto) Eos % (Auto) Baso % (Auto) Neut # Lymph # Morrow # Eos # Baso # Neutrophils % (Manual) Band Neutrophils % Lymphocytes % (Manual) Monocytes % (Manual) Eosinophils % (Manual) Platelet Estimate Hypochromasia (manual) Poikilocytosis (manual Anisocytosis (manual) Target Cells ESR 3 Sodium 141 Potassium 2.6 L Chloride 100 Carbon Dioxide 29 Anion Gap 15 BUN 15 Creatinine 0.6 L Est GFR ( Amer) > 60 Est GFR (Non-Af Amer) > 60 POC Glucose (mg/dL) 97 Random Glucose 87 Calcium 9.1 Phosphorus 3.0 Magnesium 1.4 L Total Bilirubin 0.9 AST 23 ALT 27 Alkaline Phosphatase 24 L D Total Protein 5.3 L Albumin 3.5 Globulin 1.8 L Albumin/Globulin Ratio 1.9 Urine Color Urine Clarity Urine pH Ur Specific [place] Urine Protein Urine Glucose (UA) Urine Ketones Urine Blood Urine Nitrate Urine Bilirubin Urine Urobilinogen Ur Leukocyte Esterase Urine WBC (Auto) Urine RBC (Auto) Ur Squamous Epith Cells Urine Bacteria Hyaline Casts Urine Yeast (Budding) 05/14/17 09:08 WBC RBC Hgb Hct MCV MCH MCHC RDW Plt Count MPV Neut % (Auto) Lymph % (Auto) Morrow % (Auto) Eos % (Auto) Baso % (Auto) Neut # Lymph # Morrow # Eos # Baso # Neutrophils % (Manual) Band Neutrophils % Lymphocytes % (Manual) Monocytes % (Manual) Eosinophils % (Manual) Platelet Estimate Hypochromasia (manual) Poikilocytosis (manual Anisocytosis (manual) Target Cells ESR Sodium Potassium Chloride Carbon Dioxide Anion Gap BUN Creatinine Est GFR ( Amer) Est GFR (Non-Af Amer) POC Glucose (mg/dL) Random Glucose Calcium Phosphorus Magnesium Total Bilirubin AST ALT Alkaline Phosphatase Total Protein Albumin Globulin Albumin/Globulin Ratio Urine Color Yellow Urine Clarity Clear Urine pH 6.0 Ur Specific [place] 1.019 Urine Protein 1+ H Urine Glucose (UA) Normal Urine Ketones Negative Urine Blood 1+ H Urine Nitrate Negative Urine Bilirubin Negative Urine Urobilinogen Normal Ur Leukocyte Esterase 2+ H Urine WBC (Auto) 31 H Urine RBC (Auto) 15 H Ur Squamous Epith Cells < 1 Urine Bacteria Rare Hyaline Casts 0-2 Urine Yeast (Budding) Occ H Fingerstick Blood Sugar Results: 121 Review of Systems - Constitutional Constitutional: absent: Fever - Cardiovascular Cardiovascular: absent: Chest Pain, Dyspnea - Respiratory Respiratory: absent: Cough, Dyspnea - Gastrointestinal Gastrointestinal: absent: Abdominal Pain, Constipation, Diarrhea, Nausea, Vomiting - Genitourinary Genitourinary: absent: Dysuria - Neurological Neurological: absent: Dizziness, Headaches Critical Care Progress Note - Nutrition Nutrition: Nutrition Category Date Time Status Heart Healthy Diet [DIET] Diets 05/11/17 Dinner Active Assessment/Plan - Assessment and Plan (Free Text) Assessment: 60-year-old female with history of anxiety, depression, chronic back pain, possible obstructive sleep apnea, COPD, was brought in by the family members because of altered mental status. Patient is hypotensive and septic. Patient has sacral wound, likely cause of sepsis. Patient went to the OR today for I/D of sacral wound. Wound vac in place. Wound culture came back positive for proteus mirabilis, group c strep-- continue Primaxin and vanco. Patient has new onset of a-fib, started cardizem drip on 05/05/17. Patient was in respiratory distress on 05/06/17 and intubated. 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 Patient had second (out of 5 total) plasmapheresis on 05/10/17. Patient was extubated on 05/11/17. Patient had 3rd plasma exchange on 05/12/17. Plasmapheresis $4/5 scheduled for 05/14/17. Neuro: - Alert - Neurology consulted: Dr. Irvin, help appreciated - MRI: patient refused - As per neurology, patient had 1 dose of IVIG. 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 - O2via nasal cannula (decreased from 5L to 3L) and Duonebs - Tapered down solumedrol 20mg daily (from BID); except on plasmapheresis days ( patient receives 40mg) - Continue to Monitor CV: hypotensive - Secondary to sepsis - Hx of DVT (6 weeks prior)--> Continue Eliquis 5mg PO - Venous dopplers: DVT in Right deep popliteal and left common femoral, femoral , and popliteal. Endo: no acute issues GI: - Pepcid daily - [place]earth healthy diet : no acute issues - UA: 1+ protein & blood, 4 Urobilinogen, 23 WBC, 8 RBC, Few bacteria. Heme: anemic - Continue to monitor H/H - Heme/onc consulted for plasmapheresis- Dr Morales, help appreciated - Surgical team placed dialysis catheter in right femoral for plasmapheresis treatments--> received first treatment on 05/07/18. As per neuro, patient requires a total of 5 treatments. - 3rd plasma exchange 05/12/17 - Plasmapheresis planned for 05/14/17, #4/5 - Repeat ESR: f/u Renal: - Elevated BUN/Cr--> resolved, 14/0.5 - Monitor renal function - Hypokalemia: gave KCl - Hypomagnesemia: gave Mg sulfate ID: Sepsis, leukocytosis, bandemia - Bandemia resolved; afebrile - Leukocytosis - ID consulted: Dr. Ornelas, help appreciated - Sacral wound- Proteus Mirabilis, Group C strep - Surgery consulted: Dr. lAmaraz, help appreciated--> I&D with wound vac ( vac changed q3days) - Continue Zosyn and wound care - As per ID, will likely need 6 weeks of antibiotics for sacral wound (likely osteomyelitis) - C. Diff: negative - Procalcitonin: 0.16 - Repeat UA: f/u Prophylaxis: - DVT: Eliquis, SCDs - GI: Pepcid daily - PT/OT <Twin Donnelly - Last Filed: 05/14/17 13:24> CCU Subjective - Physician Review Events Since Last Encounter (Free Text): 05/14/17 12:59 CCM chart reviewed. Pt seen and examined. Discussed with housestaff. Pt denies complaints of pain or sob. Strength in LE sl better Alert nad NEck- no jvd lungs- bilat bs Heart-rr aBd- benign eXt- no edema Neuro- LE weakness L>R A&P s/p Resp Failure s/p Sacral Ulcer debridement Sepsis -improved r/o GB COPD DVT DM HTN Anxiety/Depression cont meds Ab as per ID For Plasmapheresis today Maintain optimal lytes f/u ESR PO as tolerated Incentive spirometry CCU Objective - Vital Signs / Intake & Output Vital Signs (Last 4 hours): Vital Signs BP 05/14/17 09:41 107/56 L Intake and Output (Last 8hrs): Intake & Output 05/13/17 05/14/17 05/14/17 22:59 06:59 14:59 Intake Total 660 50 Output Total 675 355 45 Balance -15 -305 -45 Intake: Intake, IV Amount 350 50 Right Distal Port 350 50 Internal Jugular Oral 310 Output: Drainage 0 Wound Vac 0 Urine 675 355 45 Urethral (Colmenares) 675 355 45 Other: # Bowel Movements 0 0 0 - Medications Active Medications: Active Medications Generic Name Dose Route Start Last Admin Trade Name Freq PRN Reason Stop Dose Admin Albuterol/Ipratropium 3 ml 05/03/17 02:00 05/11/17 07:38 Duoneb 3 Mg/0.5 Mg (3 Ml) Ud INH 3 ml RQ6 RIK Administration Apixaban 5 mg 05/05/17 16:00 05/13/17 18:21 Eliquis PO 5 mg BID RIK Administration Famotidine 20 mg 05/07/17 10:00 05/14/17 09:39 Pepcid PO 20 mg DAILY RIK Administration Furosemide 40 mg 05/09/17 10:00 05/14/17 09:41 Lasix IVP 40 mg DAILY RIK Administration Piperacillin Sod/Tazobactam Sod 3.375 gm in 50 mls @ 100 mls/hr 05/05/17 19: 00 05/14/17 06:30 Zosyn 3.375 Gm Iv Premix IVPB 100 mls/hr Q6H RIK Administration Methylprednisolone 20 mg 05/11/17 10:00 05/14/17 09:38 Solu-Medrol IVP 20 mg DAILY RIK Administration Morphine Sulfate 2 mg 05/11/17 13:24 05/14/17 08:27 Morphine IV 2 mg Q6 PRN Administration Pain, moderate (4-7) Ondansetron HCl 4 mg 05/04/17 09:41 Zofran Inj IVP Q4 PRN Nausea/Vomiting Temazepam 15 mg 05/13/17 22:00 05/13/17 23:02 Restoril PO 15 mg HS RIK Administration - Patient Studies Lab Studies: Lab Studies 05/14/17 05/14/17 05/14/17 Range/Units 11:33 09:08 08:17 WBC (4.8-10.8) K/uL RBC (3.80-5.20) Mil/uL Hgb (11.0-16.0) g/dL Hct (34.0-47.0) % MCV (81.0-99.0) fL MCH (27.0-31.0) pg MCHC (33.0-37.0) g/dL RDW (11.5-14.5) % Plt Count (130-400) K/uL MPV (7.2-11.7) fL Neut % (Auto) (50.0-75.0) % Lymph % (Auto) (20.0-40.0) % [place]row % (Auto) (0.0-10.0) % Eos % (Auto) (0.0-4.0) % Baso % (Auto) (0.0-2.0) % Neut # (1.8-7.0) K/uL Lymph # (1.0-4.3) K/uL Morrow # (0.0-0.8) K/uL Eos # (0.0-0.7) K/uL Baso # (0.0-0.2) K/uL Neutrophils % (Manual) (50-75) % Band Neutrophils % (0-2) % Lymphocytes % (Manual) (20-40) % Monocytes % (Manual) (0-10) % Eosinophils % (Manual) (0-4) % Platelet Estimate (NORMAL) Hypochromasia (manual) Poikilocytosis (manual Anisocytosis (manual) Target Cells ESR 3 (0-20) mm/hr Sodium (132-148) mmol/L Potassium (3.6-5.2) mmol/L Chloride (98-107) mmol/L Carbon Dioxide (22-30) mmol/L Anion Gap (10-20) BUN (7-17) mg/dL Creatinine (0.7-1.2) MG/DL Est GFR ( Amer) Est GFR (Non-Af Amer) POC Glucose (mg/dL) 114 H (65-110) mg/dL Random Glucose (65-105) mg/dL Calcium (8.6-10.4) mg/dl Phosphorus (2.5-4.5) mg/dL Magnesium (1.6-2.3) mg/dL Total Bilirubin (0.2-1.3) mg/dL AST (14-36) U/L ALT (9-52) U/L Alkaline Phosphatase (38-126) U/L Total Protein (6.3-8.3) g/dL Albumin (3.5-5.0) g/dL Globulin (2.2-3.9) gm/dL Albumin/Globulin Ratio (1.0-2.1) Urine Color Yellow (YELLOW) Urine Clarity Clear (Clear) Urine pH 6.0 (5.0-8.0) Ur Specific [place] 1.019 (1.003-1.030) Urine Protein 1+ H (NEGATIVE) mg/dL Urine Glucose (UA) Normal (Normal) mg/dL Urine Ketones Negative (NEGATIVE) mg/dL Urine Blood 1+ H (NEGATIVE) Urine Nitrate Negative (NEGATIVE) Urine Bilirubin Negative (NEGATIVE) Urine Urobilinogen Normal (0.2-1.0) mg/dL Ur Leukocyte Esterase 2+ H (Negative) Mendoza/uL Urine WBC (Auto) 31 H (0-5) /hpf Urine RBC (Auto) 15 H (0-3) /hpf Ur Squamous Epith Cells < 1 (0-5) /hpf Urine Bacteria Rare (<OCC) Hyaline Casts 0-2 (0-2) /lpf Urine Yeast (Budding) Occ H (NEGATIVE) /hpf 05/14/17 05/14/17 05/14/17 Range/Units 07:24 06:26 06:25 WBC 34.5 H (4.8-10.8) K/uL RBC 3.34 L (3.80-5.20) Mil/uL Hgb 8.7 L (11.0-16.0) g/dL Hct 28.3 L (34.0-47.0) % MCV 84.7 (81.0-99.0) fL MCH 26.0 L (27.0-31.0) pg MCHC 30.7 L (33.0-37.0) g/dL RDW 19.7 H (11.5-14.5) % Plt Count 272 (130-400) K/uL MPV 8.4 (7.2-11.7) fL Neut % (Auto) 83.2 H (50.0-75.0) % Lymph % (Auto) 9.8 L (20.0-40.0) % [place]row % (Auto) 3.8 (0.0-10.0) % Eos % (Auto) 2.6 (0.0-4.0) % Baso % (Auto) 0.6 (0.0-2.0) % Neut # 28.8 H (1.8-7.0) K/uL Lymph # 3.4 (1.0-4.3) K/uL Morrow # 1.3 H (0.0-0.8) K/uL Eos # 0.9 H (0.0-0.7) K/uL Baso # 0.2 (0.0-0.2) K/uL Neutrophils % (Manual) 80 H (50-75) % Band Neutrophils % 1 (0-2) % Lymphocytes % (Manual) 10 L (20-40) % Monocytes % (Manual) 2 (0-10) % Eosinophils % (Manual) 7 H (0-4) % Platelet Estimate Normal (NORMAL) Hypochromasia (manual) Moderate Poikilocytosis (manual Slight Anisocytosis (manual) Slight Target Cells Slight ESR (0-20) mm/hr Sodium 141 (132-148) mmol/L Potassium 2.6 L (3.6-5.2) mmol/L Chloride 100 (98-107) mmol/L Carbon Dioxide 29 (22-30) mmol/L Anion Gap 15 (10-20) BUN 15 (7-17) mg/dL Creatinine 0.6 L (0.7-1.2) MG/DL Est GFR ( Amer) > 60 Est GFR (Non-Af Amer) > 60 POC Glucose (mg/dL) 97 (65-110) mg/dL Random Glucose 87 (65-105) mg/dL Calcium 9.1 (8.6-10.4) mg/dl Phosphorus 3.0 (2.5-4.5) mg/dL Magnesium 1.4 L (1.6-2.3) mg/dL Total Bilirubin 0.9 (0.2-1.3) mg/dL AST 23 (14-36) U/L ALT 27 (9-52) U/L Alkaline Phosphatase 24 L D (38-126) U/L Total Protein 5.3 L (6.3-8.3) g/dL Albumin 3.5 (3.5-5.0) g/dL Globulin 1.8 L (2.2-3.9) gm/dL Albumin/Globulin Ratio 1.9 (1.0-2.1) Urine Color (YELLOW) Urine Clarity (Clear) Urine pH (5.0-8.0) Ur Specific Allouez (1.003-1.030) Urine Protein (NEGATIVE) mg/dL Urine Glucose (UA) (Normal) mg/dL Urine Ketones (NEGATIVE) mg/dL Urine Blood (NEGATIVE) Urine Nitrate (NEGATIVE) Urine Bilirubin (NEGATIVE) Urine Urobilinogen (0.2-1.0) mg/dL Ur Leukocyte Esterase (Negative) Mendoza/uL Urine WBC (Auto) (0-5) /hpf Urine RBC (Auto) (0-3) /hpf Ur Squamous Epith Cells (0-5) /hpf Urine Bacteria (<OCC) Hyaline Casts (0-2) /lpf Urine Yeast (Budding) (NEGATIVE) /hpf 05/13/17 05/13/17 Range/Units 21:08 16:38 WBC (4.8-10.8) K/uL RBC (3.80-5.20) Mil/uL Hgb (11.0-16.0) g/dL Hct (34.0-47.0) % MCV (81.0-99.0) fL MCH (27.0-31.0) pg MCHC (33.0-37.0) g/dL RDW (11.5-14.5) % Plt Count (130-400) K/uL MPV (7.2-11.7) fL Neut % (Auto) (50.0-75.0) % Lymph % (Auto) (20.0-40.0) % Morrow % (Auto) (0.0-10.0) % Eos % (Auto) (0.0-4.0) % Baso % (Auto) (0.0-2.0) % Neut # (1.8-7.0) K/uL Lymph # (1.0-4.3) K/uL Morrow # (0.0-0.8) K/uL Eos # (0.0-0.7) K/uL Baso # (0.0-0.2) K/uL Neutrophils % (Manual) (50-75) % Band Neutrophils % (0-2) % Lymphocytes % (Manual) (20-40) % Monocytes % (Manual) (0-10) % Eosinophils % (Manual) (0-4) % Platelet Estimate (NORMAL) Hypochromasia (manual) Poikilocytosis (manual Anisocytosis (manual) Target Cells ESR (0-20) mm/hr Sodium (132-148) mmol/L Potassium (3.6-5.2) mmol/L Chloride (98-107) mmol/L Carbon Dioxide (22-30) mmol/L Anion Gap (10-20) BUN (7-17) mg/dL Creatinine (0.7-1.2) MG/DL Est GFR ( Amer) Est GFR (Non-Af Amer) POC Glucose (mg/dL) 94 121 H (65-110) mg/dL Random Glucose (65-105) mg/dL Calcium (8.6-10.4) mg/dl Phosphorus (2.5-4.5) mg/dL Magnesium (1.6-2.3) mg/dL Total Bilirubin (0.2-1.3) mg/dL AST (14-36) U/L ALT (9-52) U/L Alkaline Phosphatase (38-126) U/L Total Protein (6.3-8.3) g/dL Albumin (3.5-5.0) g/dL Globulin (2.2-3.9) gm/dL Albumin/Globulin Ratio (1.0-2.1) Urine Color (YELLOW) Urine Clarity (Clear) Urine pH (5.0-8.0) Ur Specific [place]ouez (1.003-1.030) Urine Protein (NEGATIVE) mg/dL Urine Glucose (UA) (Normal) mg/dL Urine Ketones (NEGATIVE) mg/dL Urine Blood (NEGATIVE) Urine Nitrate (NEGATIVE) Urine Bilirubin (NEGATIVE) Urine Urobilinogen (0.2-1.0) mg/dL Ur Leukocyte Esterase (Negative) Mendoza/uL Urine WBC (Auto) (0-5) /hpf Urine RBC (Auto) (0-3) /hpf Ur Squamous Epith Cells (0-5) /hpf Urine Bacteria (<OCC) Hyaline Casts (0-2) /lpf Urine Yeast (Budding) (NEGATIVE) /hpf Laboratory Results - last 24 hr 05/13/17 05/13/17 05/14/17 16:38 21:08 06:25 WBC 34.5 H RBC 3.34 L Hgb 8.7 L Hct 28.3 L MCV 84.7 MCH 26.0 L MCHC 30.7 L RDW 19.7 H Plt Count 272 MPV 8.4 Neut % (Auto) 83.2 H Lymph % (Auto) 9.8 L Morrow % (Auto) 3.8 Eos % (Auto) 2.6 Baso % (Auto) 0.6 Neut # 28.8 H Lymph # 3.4 [place] # 1.3 H Eos # 0.9 H Baso # 0.2 Neutrophils % (Manual) 80 H Band Neutrophils % 1 Lymphocytes % (Manual) 10 L Monocytes % (Manual) 2 Eosinophils % (Manual) 7 H Platelet Estimate Normal Hypochromasia (manual) Moderate Poikilocytosis (manual Slight Anisocytosis (manual) Slight Target Cells Slight ESR Sodium Potassium Chloride Carbon Dioxide Anion Gap BUN Creatinine Est GFR ( Amer) Est GFR (Non-Af Amer) POC Glucose (mg/dL) 121 H 94 Random Glucose Calcium Phosphorus Magnesium Total Bilirubin AST ALT Alkaline Phosphatase Total Protein Albumin Globulin Albumin/Globulin Ratio Urine Color Urine Clarity Urine pH Ur Specific [place] Urine Protein Urine Glucose (UA) Urine Ketones Urine Blood Urine Nitrate Urine Bilirubin Urine Urobilinogen Ur Leukocyte Esterase Urine WBC (Auto) Urine RBC (Auto) Ur Squamous Epith Cells Urine Bacteria Hyaline Casts Urine Yeast (Budding) 05/14/17 05/14/17 05/14/17 06:26 07:24 08:17 WBC RBC Hgb Hct MCV MCH MCHC RDW Plt Count MPV Neut % (Auto) Lymph % (Auto) [place] % (Auto) Eos % (Auto) Baso % (Auto) Neut # Lymph # [place] # Eos # Baso # Neutrophils % (Manual) Band Neutrophils % Lymphocytes % (Manual) Monocytes % (Manual) Eosinophils % (Manual) Platelet Estimate Hypochromasia (manual) Poikilocytosis (manual Anisocytosis (manual) Target Cells ESR 3 Sodium 141 Potassium 2.6 L Chloride 100 Carbon Dioxide 29 Anion Gap 15 BUN 15 Creatinine 0.6 L Est GFR ( Amer) > 60 Est GFR (Non-Af Amer) > 60 POC Glucose (mg/dL) 97 Random Glucose 87 Calcium 9.1 Phosphorus 3.0 Magnesium 1.4 L Total Bilirubin 0.9 AST 23 ALT 27 Alkaline Phosphatase 24 L D Total Protein 5.3 L Albumin 3.5 Globulin 1.8 L Albumin/Globulin Ratio 1.9 Urine Color Urine Clarity Urine pH Ur Specific [place] Urine Protein Urine Glucose (UA) Urine Ketones Urine Blood Urine Nitrate Urine Bilirubin Urine Urobilinogen Ur Leukocyte Esterase Urine WBC (Auto) Urine RBC (Auto) Ur Squamous Epith Cells Urine Bacteria Hyaline Casts Urine Yeast (Budding) 05/14/17 05/14/17 09:08 11:33 WBC RBC Hgb Hct MCV MCH MCHC RDW Plt Count MPV Neut % (Auto) Lymph % (Auto) [place] % (Auto) Eos % (Auto) Baso % (Auto) Neut # Lymph # [place] # Eos # Baso # Neutrophils % (Manual) Band Neutrophils % Lymphocytes % (Manual) Monocytes % (Manual) Eosinophils % (Manual) Platelet Estimate Hypochromasia (manual) Poikilocytosis (manual Anisocytosis (manual) Target Cells ESR Sodium Potassium Chloride Carbon Dioxide Anion Gap BUN Creatinine Est GFR ( Amer) Est GFR (Non-Af Amer) POC Glucose (mg/dL) 114 H Random Glucose Calcium Phosphorus Magnesium Total Bilirubin AST ALT Alkaline Phosphatase Total Protein Albumin Globulin Albumin/Globulin Ratio Urine Color Yellow Urine Clarity Clear Urine pH 6.0 Ur Specific [place] 1.019 Urine Protein 1+ H Urine Glucose (UA) Normal Urine Ketones Negative Urine Blood 1+ H Urine Nitrate Negative Urine Bilirubin Negative Urine Urobilinogen Normal Ur Leukocyte Esterase 2+ H Urine WBC (Auto) 31 H Urine RBC (Auto) 15 H Ur Squamous Epith Cells < 1 Urine Bacteria Rare Hyaline Casts 0-2 Urine Yeast (Budding) Occ H Critical Care Progress Note - Nutrition Nutrition: Nutrition Category Date Time Status Heart Healthy Diet [DIET] Diets 05/11/17 Dinner Active
--- NOTE | 2017-05-14 13:15 | PN ---
DATE: 05/14/2017 TIME OF EVALUATION: 7:15 a.m. 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 PHYSICAL EXAMINATION: VITAL SIGNS: Blood pressure of 101/62, mean arterial pressure of 74, respiratory rate of 18, and temperature afebrile with a pulse rate of 88. GENERAL: The patient is more awake, alert and oriented to person, place, and time. NEUROLOGIC: Cranial nerve examinations within normal. Upper extremities; regained the strength close to 5-/5. Right leg footdrop which is old from her knee surgery and left leg, she could able to do 3/5. EXTREMITIES: Deep tendon reflexes are absent. Plantars are mute. RECOMMENDATIONS: The patient is scheduled to have plasma exchange 12/23 today. She will be getting either Wednesday or Wednesday PE following that the patient will be scheduled to have intravenous immunoglobulin. The patient will be a good candidate for acute rehabilitation. The patient will be followed closely with you. Mario Irvin MD [email or web address]
--- NOTE | 2017-05-14 14:44 | CP.PCM.PN ---
Subjective - Date & Time of Evaluation Date of Evaluation: 05/14/17 Time of Evaluation: 14:44 Objective - Vital Signs/Intake and Output Vital Signs (last 24 hours): Temp Pulse Resp BP Pulse Ox 97.7 F 105 H 16 147/66 87 L 05/14/17 12:00 05/14/17 13:21 05/14/17 13:21 05/14/17 13:21 05/14/17 13:21 Intake and Output: 05/14/17 05/14/17 06:59 18:59 Intake Total 250 450 Output Total 570 230 Balance -320 220 - Medications Medications: Current Medications Albuterol/Ipratropium (Duoneb 3 Mg/0.5 Mg (3 Ml) Ud) 3 ml INH RQ6 [facility] Last Admin: 05/11/17 07:38 Dose: 3 ml Apixaban (Eliquis) 5 mg PO BID [facility] Last Admin: 05/14/17 10:00 Dose: 5 mg Famotidine (Pepcid) 20 mg PO DAILY [facility] Last Admin: 05/14/17 09:39 Dose: 20 mg Furosemide (Lasix) 40 mg IVP DAILY [facility] Last Admin: 05/14/17 09:41 Dose: 40 mg Piperacillin Sod/Tazobactam Sod (Zosyn 3.375 Gm Iv Premix) 3.375 gm in 50 mls @ 100 mls/hr IVPB Q6H [facility] Last Admin: 05/14/17 13:03 Dose: 100 mls/hr Methylprednisolone (Solu-Medrol) 20 mg IVP DAILY [facility] Last Admin: 05/14/17 09:38 Dose: 20 mg Morphine Sulfate (Morphine) 2 mg IV Q6 PRN PRN Reason: Pain, moderate (4-7) Last Admin: 05/14/17 14:36 Dose: 2 mg Ondansetron HCl (Zofran Inj) 4 mg IVP Q4 PRN PRN Reason: Nausea/Vomiting Temazepam (Restoril) 15 mg PO HS [facility] Last Admin: 05/13/17 23:02 Dose: 15 mg - Labs Labs: 05/14/17 06:25 05/14/17 06:26 PT 12.4 SECONDS (9.7-12.2) H 05/05/17 06:40 INR 1.1 05/05/17 06:40 APTT 27 SECONDS (21-34) 05/04/17 06:35
--- NOTE | 2017-05-14 18:25 | CP.PCM.PN ---
Subjective - Date & Time of Evaluation Date of Evaluation: 05/14/17 Time of Evaluation: 07:00 - Subjective Subjective: improving awake 'alert Objective - Vital Signs/Intake and Output Vital Signs (last 24 hours): Temp Pulse Resp BP Pulse Ox 97.7 F 111 H 15 122/81 97 05/14/17 12:00 05/14/17 15:21 05/14/17 15:21 05/14/17 15:21 05/14/17 15:21 Intake and Output: 05/14/17 05/14/17 06:59 18:59 Intake Total 250 750 Output Total 570 1230 Balance -320 -480 - Medications Medications: Current Medications Albuterol/Ipratropium (Duoneb 3 Mg/0.5 Mg (3 Ml) Ud) 3 ml INH RQ6 [facility] Last Admin: 05/11/17 07:38 Dose: 3 ml Apixaban (Eliquis) 5 mg PO BID [facility] Last Admin: 05/14/17 17:54 Dose: 5 mg Famotidine (Pepcid) 20 mg PO DAILY [facility] Last Admin: 05/14/17 09:39 Dose: 20 mg Furosemide (Lasix) 40 mg IVP DAILY [facility] Last Admin: 05/14/17 09:41 Dose: 40 mg Piperacillin Sod/Tazobactam Sod (Zosyn 3.375 Gm Iv Premix) 3.375 gm in 50 mls @ 100 mls/hr IVPB Q6H [facility] Last Admin: 05/14/17 13:03 Dose: 100 mls/hr Methylprednisolone (Solu-Medrol) 20 mg IVP DAILY [facility] Last Admin: 05/14/17 09:38 Dose: 20 mg Morphine Sulfate (Morphine) 2 mg IV Q6 PRN PRN Reason: Pain, moderate (4-7) Last Admin: 05/14/17 14:36 Dose: 2 mg Ondansetron HCl (Zofran Inj) 4 mg IVP Q4 PRN PRN Reason: Nausea/Vomiting Temazepam (Restoril) 15 mg PO HS [facility] Last Admin: 05/13/17 23:02 Dose: 15 mg - Labs Labs: 05/14/17 06:25 05/14/17 06:26 PT 12.4 SECONDS (9.7-12.2) H 05/05/17 06:40 INR 1.1 05/05/17 06:40 APTT 27 SECONDS (21-34) 05/04/17 06:35 - Constitutional Appears: Non-toxic, Chronically Ill - Head Exam Head Exam: NORMOCEPHALIC - Eye Exam Eye Exam: PERRL - ENT Exam ENT Exam: Mucous Membranes Dry, Normal External Ear Exam - Neck Exam Neck Exam: absent: Lymphadenopathy - Respiratory Exam Respiratory Exam: Decreased Breath Sounds - Cardiovascular Exam Cardiovascular Exam: REGULAR RHYTHM - GI/Abdominal Exam GI & Abdominal Exam: Distended - Rectal Exam Rectal Exam: Deferred - Exam Exam: NORMAL INSPECTION - Extremities Exam Extremities Exam: absent: Pedal Edema - Back Exam Back Exam: absent: CVA tenderness (L), CVA tenderness (R) - Neurological Exam Neurological Exam: Alert, Awake, Oriented x3 - Psychiatric Exam Psychiatric exam: Normal Mood - Skin Skin Exam: Dry Assessment and Plan (1) Dehydration Status: Acute (2) Hypotension Status: Acute (3) Sepsis Status: Acute (4) Morbidly obese Status: Chronic (5) Altered mental status Status: Acute (6) Anxiety Status: Acute (7) Cellulitis Status: Acute (8) Chronic pain Status: Acute (9) Weakness Status: Acute (10) COPD (chronic obstructive pulmonary disease) Status: Chronic (11) HTN (hypertension) Status: Chronic (12) OPHELIA (obstructive sleep apnea) Status: Chronic (13) Spinal stenosis Status: Chronic
[2017-05-15] MEDS ORDERED: Calcium Gluconate 9.3 MEQ in Sodium Chloride 0.9% 250 ML IV ONE
[2017-05-15] MEDS: Piperacill/Tazo 3.375gm in Dex 3.375 GM/50 ML BAG IVPB SCH ×5 (00:15→23:59)
[2017-05-15] MEDS ORDERED: MethylPREDNISolone 40 mg Vial IV ONE ×2 (02:00)
[2017-05-15] MEDS ORDERED: DiphenhydrAMINE 50 mg/ml Inj IVP ONE ×2 (02:00)
[2017-05-15 06:32] LABS: BASO # 0.1 K/uL (0.0-0.2); BASO % 0.2 % (0.0-2.0); EOS # 0.3 K/uL (0.0-0.7); EOS % 0.8 % (0.0-4.0); HEMATOCRIT 28.1 % (34.0-47.0); LYMPH # 0.8 K/uL (1.0-4.3); LYMPH % 2.5 % (20.0-40.0); MEAN CORPUSCULAR HEMOGLOBIN 26.7 pg (27.0-31.0); MEAN PLATELET VOLUME 8.6 fL (7.2-11.7); MONO # 0.3 K/uL (0.0-0.8); PLATELET COUNT 250 K/uL (130-400); RED CELL DISTRIBUTION WIDTH 20.5 % (11.5-14.5); WHITE BLOOD COUNT 32.4 K/uL (4.8-10.8)
[2017-05-15 06:45] LABS: CHLORIDE 105 mmol/L (98-107); POTASSIUM 3.3 mmol/L (3.6-5.2); SODIUM 144 mmol/L (132-148)
[2017-05-15 06:47] LABS: AST/SGOT 12 U/L (14-36); BILIRUBIN,TOTAL 0.8 mg/dL (0.2-1.3); CARBON DIOXIDE 24 mmol/L (22-30); GFR AFRICAN-AMERICAN > 60
[2017-05-15 06:48] LABS: ALB/GLOB RATIO 2.6 (1.0-2.1); ALKALINE PHOSPHATASE < 20 U/L (38-126); ALT/SGPT 23 U/L (9-52); BLOOD UREA NITROGEN 16 mg/dL (7-17); CALCIUM 8.9 mg/dl (8.6-10.4); GLUCOSE,RANDOM 124 mg/dL (65-105); MAGNESIUM 1.8 mg/dL (1.6-2.3); PHOSPHOROUS 3.1 mg/dL (2.5-4.5); TOTAL PROTEIN 5.4 g/dL (6.3-8.3)
[2017-05-15 08:29] LABS: EOSINOPHIL 2 % (0-4); NEUTROPHIL 95 % (50-75); TOTAL CELLS COUNTED 100
[2017-05-15 08:31] LABS: LARGE PLATELETS PRESENT
[2017-05-15] MEDS ORDERED: Magnesium Sulfate 1 gm in D5W 1 GM/100 ML BAG IVPB ONE (09:00)
--- NOTE | 2017-05-15 10:00 | CP.PCM.PN ---
Subjective - Date & Time of Evaluation Date of Evaluation: 05/15/17 Time of Evaluation: 11:20 - Subjective Subjective: clinically same Objective - Vital Signs/Intake and Output Vital Signs (last 24 hours): Temp Pulse Resp BP Pulse Ox 98.3 F 105 H 25 H 134/69 95 05/15/17 08:00 05/15/17 09:00 05/15/17 09:00 05/15/17 08:24 05/15/17 09:00 Intake and Output: 05/15/17 05/15/17 06:59 18:59 Intake Total 190 200 Output Total 560 120 Balance -370 80 - Medications Medications: Current Medications Albuterol/Ipratropium (Duoneb 3 Mg/0.5 Mg (3 Ml) Ud) 3 ml INH RQ6 [facility] Last Admin: 05/11/17 07:38 Dose: 3 ml Apixaban (Eliquis) 5 mg PO BID [facility] Last Admin: 05/14/17 17:54 Dose: 5 mg Famotidine (Pepcid) 20 mg PO DAILY [facility] Last Admin: 05/14/17 09:39 Dose: 20 mg Furosemide (Lasix) 40 mg IVP DAILY [facility] Last Admin: 05/14/17 09:41 Dose: 40 mg Piperacillin Sod/Tazobactam Sod (Zosyn 3.375 Gm Iv Premix) 3.375 gm in 50 mls @ 100 mls/hr IVPB Q6H [facility] Last Admin: 05/15/17 08:39 Dose: 100 mls/hr Potassium Chloride (Potassium Chloride 20 Meq/100 Ml) 20 meq in 100 mls @ 50 mls/hr IVPB ONCE ONE Stop: 05/15/17 11:59 Methylprednisolone (Solu-Medrol) 20 mg IVP DAILY [facility] Last Admin: 05/14/17 09:38 Dose: 20 mg Morphine Sulfate (Morphine) 2 mg IV Q6 PRN PRN Reason: Pain, moderate (4-7) Last Admin: 05/15/17 03:33 Dose: 2 mg Ondansetron HCl (Zofran Inj) 4 mg IVP Q4 PRN PRN Reason: Nausea/Vomiting Temazepam (Restoril) 15 mg PO HS [facility] Last Admin: 05/14/17 22:05 Dose: 15 mg - Labs Labs: 05/15/17 06:20 05/15/17 06:20 PT 12.4 SECONDS (9.7-12.2) H 05/05/17 06:40 INR 1.1 05/05/17 06:40 APTT 27 SECONDS (21-34) 05/04/17 06:35 - Constitutional Appears: Well - Head Exam Head Exam: ATRAUMATIC, NORMAL INSPECTION, NORMOCEPHALIC - Eye Exam Eye Exam: EOMI, Normal appearance, PERRL Pupil Exam: NORMAL ACCOMODATION, PERRL - ENT Exam ENT Exam: Mucous Membranes Moist, Normal Exam - Neck Exam Neck Exam: Full ROM, Normal Inspection. absent: Lymphadenopathy - Respiratory Exam Respiratory Exam: Decreased Breath Sounds - Cardiovascular Exam Cardiovascular Exam: REGULAR RHYTHM, +S1, +S2 - GI/Abdominal Exam GI & Abdominal Exam: Soft, Diminished Bowel Sounds - Rectal Exam Rectal Exam: Deferred
[2017-05-15] MEDS: MethylPREDNISolone 40 mg Vial IVP SCH (10:50)
--- NOTE | 2017-05-15 12:03 | PN ---
DATE: 05/15/2017 NEUROLOGICAL PROBLEM: Acute inflammatory demyelinating polyradiculopathy, status post plasma exchange 12/23. PHYSICAL EXAMINATION: VITAL SIGNS: Blood pressure 137/56, mean arterial pressure of 83, respiratory rate 18, temperature afebrile with a pulse of 88, regular. NEURO: Mentation is improved. Motor functions are also improved. Examination is unchanged compared with my previous examination. PLAN: The patient's plasma exchange is scheduled to have on Wednesday morning. Following this, the patient will be getting intravenous immunoglobulin of 0.4 g/kg for 5 days. Following this process, the patient is a good candidate for acute rehabilitation. The patient will be followed closely with you. Mario Irvin MD :
[2017-05-15] MEDS ORDERED: Albuterol 0.083% Inhal Sol (2.5 mg/3 mL) UD INH PRN (17:44)
[2017-05-15] MEDS: Ranolazine 500 mg Extended Release Tablets PO SCH (18:24)
--- NOTE | 2017-05-15 20:03 | CP.PCM.PN ---
Subjective - Date & Time of Evaluation Date of Evaluation: 05/15/17 Time of Evaluation: 16:30 - Subjective Subjective: No complaints. Objective - Vital Signs/Intake and Output Vital Signs (last 24 hours): Temp Pulse Resp BP Pulse Ox 97.8 F 87 20 138/84 97 05/15/17 15:00 05/15/17 15:00 05/15/17 15:00 05/15/17 15:00 05/15/17 15:00 Intake and Output: 05/15/17 05/16/17 18:59 06:59 Intake Total 750 Output Total 1000 Balance -250 - Medications Medications: Current Medications Albuterol Sulfate (Albuterol 0.083% Inhal Cee (2.5 Mg/3 Ml) Ud) 2.5 mg INH RQ6 PRN PRN Reason: Shortness of Breath Albuterol/Ipratropium (Duoneb 3 Mg/0.5 Mg (3 Ml) Ud) 3 ml INH RQ6 [facility] Last Admin: 05/11/17 07:38 Dose: 3 ml Apixaban (Eliquis) 5 mg PO BID [facility] Last Admin: 05/15/17 17:56 Dose: 5 mg Aspirin (Ecotrin) 81 mg PO DAILY [facility] Clonazepam (Klonopin) 1 mg PO Q12 [facility] Docusate Sodium (Colace) 100 mg PO TID [facility] Last Admin: 05/15/17 19:28 Dose: Not Given Famotidine (Pepcid) 20 mg PO BID [facility] Last Admin: 05/15/17 18:25 Dose: 20 mg Furosemide (Lasix) 40 mg IVP DAILY [facility] Last Admin: 05/15/17 10:50 Dose: 40 mg Gabapentin (Neurontin) 300 mg PO TID [facility] Last Admin: 05/15/17 18:25 Dose: 300 mg Piperacillin Sod/Tazobactam Sod (Zosyn 3.375 Gm Iv Premix) 3.375 gm in 50 mls @ 100 mls/hr IVPB Q6H [facility] Last Admin: 05/15/17 19:42 Dose: 100 mls/hr Methylprednisolone (Solu-Medrol) 20 mg IVP DAILY [facility] Last Admin: 05/15/17 10:50 Dose: 20 mg Morphine Sulfate (Morphine) 2 mg IV Q6 PRN PRN Reason: Pain, moderate (4-7) Last Admin: 05/15/17 17:56 Dose: 2 mg Ondansetron HCl (Zofran Inj) 4 mg IVP Q4 PRN PRN Reason: Nausea/Vomiting Ranolazine (Ranexa) 500 mg PO BID [facility] Last Admin: 05/15/17 18:24 Dose: 500 mg Rosuvastatin Calcium (Crestor) 20 mg PO HS [facility] Temazepam (Restoril) 15 mg PO HS [facility] Last Admin: 05/14/17 22:05 Dose: 15 mg Tiotropium [place] (Spiriva) 18 mcg INH RQ24 [facility] - Labs Labs: 05/15/17 06:20 05/15/17 06:20 PT 12.4 SECONDS (9.7-12.2) H 05/05/17 06:40 INR 1.1 05/05/17 06:40 APTT 27 SECONDS (21-34) 05/04/17 06:35 - Head Exam Head Exam: ATRAUMATIC - Eye Exam Eye Exam: Normal appearance - ENT Exam ENT Exam: Mucous Membranes Dry - Respiratory Exam Respiratory Exam: NORMAL BREATHING PATTERN - Cardiovascular Exam Cardiovascular Exam: +S1, +S2 - GI/Abdominal Exam GI & Abdominal Exam: Normal Bowel Sounds Assessment and Plan (1) Guillain Tesfaye syndrome Assessment & Plan: for final plasma exchange Wednesday per neuro Status: Acute (2) Anemia Status: Acute (3) Leukocytosis Status: Acute
[2017-05-16] MEDS: Piperacill/Tazo 3.375gm in Dex 3.375 GM/50 ML BAG IVPB SCH ×3 (06:16→19:18)
[2017-05-16] MEDS: Potassium Chloride 20 mEq ER Tab PO SCH (09:49)
[2017-05-16] MEDS: Ranolazine 500 mg Extended Release Tablets PO SCH ×2 (09:50→17:33)
[2017-05-16] MEDS: MethylPREDNISolone 40 mg Vial IVP SCH (09:50)
--- NOTE | 2017-05-16 16:02 | CP.PCM.PN ---
Subjective - Date & Time of Evaluation Date of Evaluation: 05/16/17 Time of Evaluation: 08:00 - Subjective Subjective: improving for plasma exchange in am Objective - Vital Signs/Intake and Output Vital Signs (last 24 hours): Temp Pulse Resp BP Pulse Ox 97.6 F 85 20 107/66 95 05/16/17 07:07 05/16/17 07:07 05/16/17 07:07 05/16/17 09:51 05/16/17 07:07 Intake and Output: 05/16/17 05/16/17 06:59 18:59 Intake Total 450 410 Output Total 1370 600 Balance -920 -190 - Medications Medications: Current Medications Albuterol Sulfate (Albuterol 0.083% Inhal Cee (2.5 Mg/3 Ml) Ud) 2.5 mg INH RQ6 PRN PRN Reason: Shortness of Breath Albuterol/Ipratropium (Duoneb 3 Mg/0.5 Mg (3 Ml) Ud) 3 ml INH RQ6 [facility] Last Admin: 05/11/17 07:38 Dose: 3 ml Apixaban (Eliquis) 5 mg PO BID [facility] Last Admin: 05/16/17 10:01 Dose: 5 mg Aspirin (Ecotrin) 81 mg PO DAILY [facility] Last Admin: 05/16/17 09:49 Dose: 81 mg Clonazepam (Klonopin) 1 mg PO Q12 [facility] Last Admin: 05/16/17 09:49 Dose: 1 mg Docusate Sodium (Colace) 100 mg PO TID [facility] Last Admin: 05/16/17 14:43 Dose: 100 mg Famotidine (Pepcid) 20 mg PO BID [facility] Last Admin: 05/16/17 09:58 Dose: 20 mg Furosemide (Lasix) 40 mg IVP DAILY [facility] Last Admin: 05/16/17 09:51 Dose: 40 mg Gabapentin (Neurontin) 300 mg PO TID [facility] Last Admin: 05/16/17 14:43 Dose: 300 mg Piperacillin Sod/Tazobactam Sod (Zosyn 3.375 Gm Iv Premix) 3.375 gm in 50 mls @ 100 mls/hr IVPB Q6H [facility] Last Admin: 05/16/17 13:06 Dose: 100 mls/hr Methylprednisolone (Solu-Medrol) 20 mg IVP DAILY [facility] Last Admin: 05/16/17 09:50 Dose: 20 mg Morphine Sulfate (Morphine) 2 mg IVP Q4 PRN PRN Reason: Pain, moderate (4-7) Last Admin: 05/16/17 12:16 Dose: 2 mg Ondansetron HCl (Zofran Inj) 4 mg IVP Q4 PRN PRN Reason: Nausea/Vomiting Potassium Chloride (K-Dur 20 Meq Er Tab) 20 meq PO DAILY [facility] Last Admin: 05/16/17 09:49 Dose: 20 meq Ranolazine (Ranexa) 500 mg PO BID [facility] Last Admin: 05/16/17 09:50 Dose: 500 mg Rosuvastatin Calcium (Crestor) 20 mg PO HS [facility] Last Admin: 05/15/17 21:04 Dose: 20 mg Temazepam (Restoril) 15 mg PO HS [facility] Last Admin: 05/15/17 21:04 Dose: 15 mg Tiotropium [place] (Spiriva) 18 mcg INH RQ24 [facility] - Labs Labs: 05/15/17 06:20 05/15/17 06:20 PT 12.4 SECONDS (9.7-12.2) H 05/05/17 06:40 INR 1.1 05/05/17 06:40 APTT 27 SECONDS (21-34) 05/04/17 06:35 - Constitutional Appears: Non-toxic, Chronically Ill - Head Exam Head Exam: NORMOCEPHALIC - Eye Exam Eye Exam: PERRL. absent: Scleral icterus - ENT Exam ENT Exam: Mucous Membranes Dry - Respiratory Exam Respiratory Exam: Clear to Ausculation Bilateral - Cardiovascular Exam Cardiovascular Exam: REGULAR RHYTHM - GI/Abdominal Exam GI & Abdominal Exam: Distended, Soft - Rectal Exam Rectal Exam: Deferred Assessment and Plan (1) Dehydration Status: Acute (2) Hypotension Status: Acute (3) Sepsis Status: Acute (4) Morbidly obese Status: Chronic (5) Altered mental status Status: Acute (6) Anxiety Status: Acute (7) Cellulitis Status: Acute (8) Chronic pain Status: Acute (9) Weakness Status: Acute (10) COPD (chronic obstructive pulmonary disease) Status: Chronic (11) HTN (hypertension) Status: Chronic (12) OPHELIA (obstructive sleep apnea) Status: Chronic (13) Spinal stenosis Status: Chronic
--- NOTE | 2017-05-16 16:08 | CP.PCM.PN ---
Subjective - Date & Time of Evaluation Date of Evaluation: 05/16/17 Time of Evaluation: 11:00 - Subjective Subjective: clinically same Objective - Vital Signs/Intake and Output Vital Signs (last 24 hours): Temp Pulse Resp BP Pulse Ox 97.6 F 85 20 107/66 95 05/16/17 07:07 05/16/17 07:07 05/16/17 07:07 05/16/17 09:51 05/16/17 07:07 Intake and Output: 05/16/17 05/16/17 06:59 18:59 Intake Total 450 410 Output Total 1370 600 Balance -920 -190 - Medications Medications: Current Medications Albuterol Sulfate (Albuterol 0.083% Inhal Cee (2.5 Mg/3 Ml) Ud) 2.5 mg INH RQ6 PRN PRN Reason: Shortness of Breath Albuterol/Ipratropium (Duoneb 3 Mg/0.5 Mg (3 Ml) Ud) 3 ml INH RQ6 [facility] Last Admin: 05/11/17 07:38 Dose: 3 ml Apixaban (Eliquis) 5 mg PO BID [facility] Last Admin: 05/16/17 10:01 Dose: 5 mg Aspirin (Ecotrin) 81 mg PO DAILY [facility] Last Admin: 05/16/17 09:49 Dose: 81 mg Clonazepam (Klonopin) 1 mg PO Q12 [facility] Last Admin: 05/16/17 09:49 Dose: 1 mg Docusate Sodium (Colace) 100 mg PO TID [facility] Last Admin: 05/16/17 14:43 Dose: 100 mg Famotidine (Pepcid) 20 mg PO BID [facility] Last Admin: 05/16/17 09:58 Dose: 20 mg Furosemide (Lasix) 40 mg IVP DAILY [facility] Last Admin: 05/16/17 09:51 Dose: 40 mg Gabapentin (Neurontin) 300 mg PO TID [facility] Last Admin: 05/16/17 14:43 Dose: 300 mg Piperacillin Sod/Tazobactam Sod (Zosyn 3.375 Gm Iv Premix) 3.375 gm in 50 mls @ 100 mls/hr IVPB Q6H [facility] Last Admin: 05/16/17 13:06 Dose: 100 mls/hr Methylprednisolone (Solu-Medrol) 20 mg IVP DAILY [facility] Last Admin: 05/16/17 09:50 Dose: 20 mg Morphine Sulfate (Morphine) 2 mg IVP Q4 PRN PRN Reason: Pain, moderate (4-7) Last Admin: 05/16/17 12:16 Dose: 2 mg Ondansetron HCl (Zofran Inj) 4 mg IVP Q4 PRN PRN Reason: Nausea/Vomiting Potassium Chloride (K-Dur 20 Meq Er Tab) 20 meq PO DAILY [facility] Last Admin: 05/16/17 09:49 Dose: 20 meq Ranolazine (Ranexa) 500 mg PO BID [facility] Last Admin: 05/16/17 09:50 Dose: 500 mg Rosuvastatin Calcium (Crestor) 20 mg PO HS [facility] Last Admin: 05/15/17 21:04 Dose: 20 mg Temazepam (Restoril) 15 mg PO HS [facility] Last Admin: 05/15/17 21:04 Dose: 15 mg Tiotropium [place] (Spiriva) 18 mcg INH RQ24 [facility] - Labs Labs: 05/15/17 06:20 05/15/17 06:20 PT 12.4 SECONDS (9.7-12.2) H 05/05/17 06:40 INR 1.1 05/05/17 06:40 APTT 27 SECONDS (21-34) 05/04/17 06:35 - Constitutional Appears: Well - Head Exam Head Exam: ATRAUMATIC, NORMAL INSPECTION, NORMOCEPHALIC - Eye Exam Eye Exam: EOMI, Normal appearance, PERRL Pupil Exam: NORMAL ACCOMODATION, PERRL - ENT Exam ENT Exam: Mucous Membranes Moist, Normal Exam - Neck Exam Neck Exam: Full ROM, Normal Inspection. absent: Lymphadenopathy - Respiratory Exam Respiratory Exam: Decreased Breath Sounds - Cardiovascular Exam Cardiovascular Exam: REGULAR RHYTHM, +S1, +S2. absent: Murmur - GI/Abdominal Exam GI & Abdominal Exam: Diminished Bowel Sounds - Rectal Exam Rectal Exam: Deferred
[2017-05-16 17:04] LABS: BASO # 0.1 K/uL (0.0-0.2); BASO % 0.2 % (0.0-2.0); EOS % 0.1 % (0.0-4.0); HEMATOCRIT 27.7 % (34.0-47.0); LYMPH # 0.9 K/uL (1.0-4.3); LYMPH % 3.2 % (20.0-40.0); MEAN CELL VOLUME 84.8 fL (81.0-99.0); MEAN CORPUSCULAR HEMOGLOBIN 26.8 pg (27.0-31.0); MEAN CORPUSCULAR HGB CONC 31.6 g/dL (33.0-37.0); MEAN PLATELET VOLUME 8.3 fL (7.2-11.7); MONO # 0.8 K/uL (0.0-0.8); MONO % 2.7 % (0.0-10.0); PLATELET COUNT 303 K/uL (130-400); RED CELL DISTRIBUTION WIDTH 20.9 % (11.5-14.5)
[2017-05-16 17:11] LABS: CHLORIDE 98 mmol/L (98-107)
[2017-05-16 17:12] LABS: POTASSIUM 4.1 mmol/L (3.6-5.2); SODIUM 139 mmol/L (132-148)
[2017-05-16 17:14] LABS: ALKALINE PHOSPHATASE 31 U/L (38-126); AST/SGOT 20 U/L (14-36); BILIRUBIN,TOTAL 0.8 mg/dL (0.2-1.3); BLOOD UREA NITROGEN 23 mg/dL (7-17); CARBON DIOXIDE 28 mmol/L (22-30); GFR AFRICAN-AMERICAN > 60
[2017-05-16 17:15] LABS: ALT/SGPT 25 U/L (9-52); CALCIUM 9.6 mg/dl (8.6-10.4); GLUCOSE,RANDOM 121 mg/dL (65-105)
[2017-05-16 18:42] LABS: NEUTROPHIL 91 % (50-75); TOTAL CELLS COUNTED 100
[2017-05-17] MEDS: Piperacill/Tazo 3.375gm in Dex 3.375 GM/50 ML BAG IVPB SCH ×4 (01:22→19:00)
[2017-05-17] MEDS ORDERED: Albumin Human 5% (12.5 gm/250 ml) IV ONE (08:49)
[2017-05-17] MEDS ORDERED: Calcium Gluconate 4.65 mEq/10 ml Inj IVP ONE (08:50)
[2017-05-17] MEDS: Tiotropium 18 mcg Cap For Inhalation INH SCH (08:52)
[2017-05-17] MEDS ORDERED: Albumin Human 5% (25 gm/500 ml) IVPB ONE (09:00)
[2017-05-17] MEDS: Ranolazine 500 mg Extended Release Tablets PO SCH ×2 (10:44→17:22)
[2017-05-17] MEDS: Potassium Chloride 20 mEq ER Tab PO SCH (12:41)
[2017-05-17] MEDS: MethylPREDNISolone 40 mg Vial IVP SCH (12:44)
--- NOTE | 2017-05-17 18:38 | CP.PCM.PN ---
Subjective - Date & Time of Evaluation Date of Evaluation: 05/17/17 Time of Evaluation: 08:00 - Subjective Subjective: clinically same Objective - Vital Signs/Intake and Output Vital Signs (last 24 hours): Temp Pulse Resp BP Pulse Ox 98.1 F 92 H 20 100/61 97 05/17/17 15:00 05/17/17 15:00 05/17/17 15:00 05/17/17 15:00 05/17/17 15:00 Intake and Output: 05/17/17 05/17/17 06:59 18:59 Intake Total 650 290 Output Total 1100 500 Balance -450 -210 - Medications Medications: Current Medications Albuterol Sulfate (Albuterol 0.083% Inhal Cee (2.5 Mg/3 Ml) Ud) 2.5 mg INH RQ6 PRN PRN Reason: Shortness of Breath Albuterol/Ipratropium (Duoneb 3 Mg/0.5 Mg (3 Ml) Ud) 3 ml INH RQ6 [facility] Last Admin: 05/11/17 07:38 Dose: 3 ml Apixaban (Eliquis) 5 mg PO BID [facility] Last Admin: 05/17/17 10:40 Dose: Not Given Aspirin (Ecotrin) 81 mg PO DAILY [facility] Last Admin: 05/17/17 12:42 Dose: 81 mg Clonazepam (Klonopin) 1 mg PO Q12 [facility] Last Admin: 05/17/17 12:41 Dose: 1 mg Docusate Sodium (Colace) 100 mg PO TID [facility] Last Admin: 05/17/17 17:22 Dose: Not Given Famotidine (Pepcid) 20 mg PO BID [facility] Last Admin: 05/17/17 17:22 Dose: 20 mg Furosemide (Lasix) 40 mg IVP DAILY [facility] Last Admin: 05/17/17 12:42 Dose: Not Given Gabapentin (Neurontin) 300 mg PO TID [facility] Last Admin: 05/17/17 17:22 Dose: 300 mg Piperacillin Sod/Tazobactam Sod (Zosyn 3.375 Gm Iv Premix) 3.375 gm in 50 mls @ 100 mls/hr IVPB Q6H [facility] Last Admin: 05/17/17 14:20 Dose: 100 mls/hr Methylprednisolone (Solu-Medrol) 20 mg IVP DAILY [facility] Last Admin: 05/17/17 12:44 Dose: 20 mg Morphine Sulfate (Morphine) 2 mg IVP Q4 PRN PRN Reason: Pain, moderate (4-7) Last Admin: 05/17/17 14:12 Dose: 2 mg Ondansetron HCl (Zofran Inj) 4 mg IVP Q4 PRN PRN Reason: Nausea/Vomiting Potassium Chloride (K-Dur 20 Meq Er Tab) 20 meq PO DAILY [facility] Last Admin: 05/17/17 12:41 Dose: 20 meq Ranolazine (Ranexa) 500 mg PO BID [facility] Last Admin: 05/17/17 17:22 Dose: 500 mg Rosuvastatin Calcium (Crestor) 20 mg PO HS [facility] Last Admin: 05/16/17 21:50 Dose: 20 mg Temazepam (Restoril) 15 mg PO HS [facility] Last Admin: 05/16/17 21:50 Dose: 15 mg Tiotropium [place] (Spiriva) 18 mcg INH RQ24 [facility] Last Admin: 05/17/17 08:52 Dose: 18 mcg - Labs Labs: 05/16/17 16:59 05/16/17 16:59 PT 12.4 SECONDS (9.7-12.2) H 05/05/17 06:40 INR 1.1 05/05/17 06:40 APTT 27 SECONDS (21-34) 05/04/17 06:35 - Constitutional Appears: Well - Head Exam Head Exam: ATRAUMATIC, NORMAL INSPECTION, NORMOCEPHALIC - Eye Exam Eye Exam: EOMI, Normal appearance, PERRL Pupil Exam: NORMAL ACCOMODATION, PERRL - ENT Exam ENT Exam: Mucous Membranes Moist, Normal Exam - Neck Exam Neck Exam: Full ROM, Normal Inspection. absent: Lymphadenopathy - Respiratory Exam Respiratory Exam: Decreased Breath Sounds - Cardiovascular Exam Cardiovascular Exam: REGULAR RHYTHM, +S1, +S2 - GI/Abdominal Exam GI & Abdominal Exam: Soft, Diminished Bowel Sounds - Rectal Exam Rectal Exam: Deferred
--- NOTE | 2017-05-17 21:43 | CP.PCM.PN ---
Subjective - Date & Time of Evaluation Date of Evaluation: 05/17/17 Time of Evaluation: 18:45 - Subjective Subjective: No complaints. Final plasma exchange today Objective - Vital Signs/Intake and Output Vital Signs (last 24 hours): Temp Pulse Resp BP Pulse Ox 98.1 F 92 H 20 100/61 97 05/17/17 15:00 05/17/17 15:00 05/17/17 15:00 05/17/17 15:00 05/17/17 15:00 Intake and Output: 05/17/17 05/18/17 18:59 06:59 Intake Total 290 Output Total 500 Balance -210 - Medications Medications: Current Medications Albuterol Sulfate (Albuterol 0.083% Inhal Cee (2.5 Mg/3 Ml) Ud) 2.5 mg INH RQ6 PRN PRN Reason: Shortness of Breath Albuterol/Ipratropium (Duoneb 3 Mg/0.5 Mg (3 Ml) Ud) 3 ml INH RQ6 [facility] Last Admin: 05/11/17 07:38 Dose: 3 ml Apixaban (Eliquis) 5 mg PO BID [facility] Last Admin: 05/17/17 21:23 Dose: 5 mg Aspirin (Ecotrin) 81 mg PO DAILY [facility] Last Admin: 05/17/17 12:42 Dose: 81 mg Clonazepam (Klonopin) 1 mg PO Q12 [facility] Last Admin: 05/17/17 21:23 Dose: 1 mg Docusate Sodium (Colace) 100 mg PO TID [facility] Last Admin: 05/17/17 17:22 Dose: Not Given Famotidine (Pepcid) 20 mg PO BID [facility] Last Admin: 05/17/17 17:22 Dose: 20 mg Furosemide (Lasix) 40 mg IVP DAILY [facility] Last Admin: 05/17/17 12:42 Dose: Not Given Gabapentin (Neurontin) 300 mg PO TID [facility] Last Admin: 05/17/17 17:22 Dose: 300 mg Piperacillin Sod/Tazobactam Sod (Zosyn 3.375 Gm Iv Premix) 3.375 gm in 50 mls @ 100 mls/hr IVPB Q6H [facility] Last Admin: 05/17/17 14:20 Dose: 100 mls/hr Methylprednisolone (Solu-Medrol) 20 mg IVP DAILY [facility] Last Admin: 05/17/17 12:44 Dose: 20 mg Morphine Sulfate (Morphine) 2 mg IVP Q4 PRN PRN Reason: Pain, moderate (4-7) Last Admin: 05/17/17 21:29 Dose: 2 mg Ondansetron HCl (Zofran Inj) 4 mg IVP Q4 PRN PRN Reason: Nausea/Vomiting Potassium Chloride (K-Dur 20 Meq Er Tab) 20 meq PO DAILY [facility] Last Admin: 05/17/17 12:41 Dose: 20 meq Ranolazine (Ranexa) 500 mg PO BID [facility] Last Admin: 05/17/17 17:22 Dose: 500 mg Rosuvastatin Calcium (Crestor) 20 mg PO HS [facility] Last Admin: 05/17/17 21:24 Dose: 20 mg Temazepam (Restoril) 15 mg PO HS [facility] Last Admin: 05/17/17 21:24 Dose: 15 mg Tiotropium [place] (Spiriva) 18 mcg INH RQ24 [facility] Last Admin: 05/17/17 08:52 Dose: 18 mcg - Labs Labs: 05/16/17 16:59 05/16/17 16:59 PT 12.4 SECONDS (9.7-12.2) H 05/05/17 06:40 INR 1.1 05/05/17 06:40 APTT 27 SECONDS (21-34) 05/04/17 06:35 - Head Exam Head Exam: ATRAUMATIC - Eye Exam Eye Exam: Normal appearance - ENT Exam ENT Exam: Mucous Membranes Dry - Respiratory Exam Respiratory Exam: NORMAL BREATHING PATTERN - Cardiovascular Exam Cardiovascular Exam: +S1, +S2 - GI/Abdominal Exam GI & Abdominal Exam: Normal Bowel Sounds - Extremities Exam Extremities Exam: Pedal Edema Assessment and Plan (1) Guillain Tesfaye syndrome Assessment & Plan: final plasma exchange today per neuro Status: Acute (2) Anemia Status: Acute (3) Leukocytosis Status: Acute
[2017-05-17] MEDS ORDERED: IMMUNE GLOBULIN 50 MG/ML IV SCH (22:00)
--- NOTE | 2017-05-17 22:24 | PN ---
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 PHYSICAL EXAMINATION VITAL SIGNS: Blood pressure 134/77, mean arterial pressure of 96, respiratory rate 18, temperature 97.4, pulse rate 92. The patient is more awake, alert, mentation is regained back to her normal. The patient has been doing well with plasmapheresis. She was able to move both upper extremity against the gravity, almost 5-/5 in the proximal and distally 5/5; both lower extremities showed some 2 to 3/5 weakness. Deep tendon reflexes are absent. ASSESSMENT AND PLAN: The patient is to continue to have final plasma exchange today and she will be continuing intravenous immunoglobulin from tomorrow as recommended dose in the chart. The patient should be getting physical therapy in the bed as well as out of bed, continue DVT prophylaxis. When medically stable, the patient can be discharged to acute rehabilitation. The patient should have nerve conduction study and electromyography that can be done as outpatient. The patient will be followed while she is in the hospital. Mario Irvin MD
[2017-05-18] MEDS: Piperacill/Tazo 3.375gm in Dex 3.375 GM/50 ML BAG IVPB SCH ×4 (01:04→18:53)
[2017-05-18] MEDS: Tiotropium 18 mcg Cap For Inhalation INH SCH (07:51)
[2017-05-18 08:00] LABS: BASO # 0.1 K/uL (0.0-0.2); BASO % 0.3 % (0.0-2.0); EOS # 0.5 K/uL (0.0-0.7); EOS % 2.3 % (0.0-4.0); HEMATOCRIT 24.7 % (34.0-47.0); LYMPH # 2.7 K/uL (1.0-4.3); LYMPH % 11.3 % (20.0-40.0); MEAN CELL VOLUME 86.6 fL (81.0-99.0); MEAN CORPUSCULAR HEMOGLOBIN 27.1 pg (27.0-31.0); MEAN CORPUSCULAR HGB CONC 31.3 g/dL (33.0-37.0); MEAN PLATELET VOLUME 8.8 fL (7.2-11.7); MONO # 1.1 K/uL (0.0-0.8); MONO % 4.8 % (0.0-10.0); RED CELL DISTRIBUTION WIDTH 21.5 % (11.5-14.5); WHITE BLOOD COUNT 23.5 K/uL (4.8-10.8)
[2017-05-18 08:04] LABS: CHLORIDE 105 mmol/L (98-107); SODIUM 143 mmol/L (132-148)
[2017-05-18 08:05] LABS: POTASSIUM 3.2 mmol/L (3.6-5.2)
[2017-05-18 08:07] LABS: ALB/GLOB RATIO 2.6 (1.0-2.1); ALKALINE PHOSPHATASE 26 U/L (38-126); ALT/SGPT 23 U/L (9-52); AST/SGOT 11 U/L (14-36); BILIRUBIN,TOTAL 0.7 mg/dL (0.2-1.3); BLOOD UREA NITROGEN 21 mg/dL (7-17); CARBON DIOXIDE 22 mmol/L (22-30); GFR AFRICAN-AMERICAN > 60; GLUCOSE,RANDOM 74 mg/dL (65-105)
[2017-05-18 08:08] LABS: CALCIUM 8.9 mg/dl (8.6-10.4)
[2017-05-18] MEDS ORDERED: IMMUNE GLOBULIN IV ONE (10:00)
[2017-05-18] MEDS ORDERED: PREMIXED IV ONE (10:00)
[2017-05-18] MEDS ORDERED: Immune Globulin 50 MG/ML (OCTAGAM 5%) 10 GM/200 ML IV SCH (10:00)
[2017-05-18] MEDS: MethylPREDNISolone 40 mg Vial IVP SCH (10:28)
[2017-05-18] MEDS: Potassium Chloride 20 mEq ER Tab PO SCH (10:46)
[2017-05-18] MEDS: Ranolazine 500 mg Extended Release Tablets PO SCH ×2 (10:47→18:13)
--- NOTE | 2017-05-18 11:23 | CP.PCM.PN ---
Subjective - Date & Time of Evaluation Date of Evaluation: 05/18/17 Time of Evaluation: 10:45 - Subjective Subjective: patient seen and examined. Lying comfortably complaining of back pain Status post plasmapheresis Denies shortness of breath Not using CPAP at night Afebrile Objective - Vital Signs/Intake and Output Vital Signs (last 24 hours): Temp Pulse Resp BP Pulse Ox 98.7 F 93 H 20 108/69 98 05/18/17 08:32 05/18/17 08:32 05/18/17 08:32 05/18/17 10:36 05/18/17 08:32 Intake and Output: 05/18/17 05/18/17 06:59 18:59 Intake Total 350 Output Total 1100 Balance -750 - Medications Medications: Current Medications Albuterol Sulfate (Albuterol 0.083% Inhal Cee (2.5 Mg/3 Ml) Ud) 2.5 mg INH RQ6 PRN PRN Reason: Shortness of Breath Last Admin: 05/18/17 07:51 Dose: 2.5 mg Albuterol/Ipratropium (Duoneb 3 Mg/0.5 Mg (3 Ml) Ud) 3 ml INH RQ6 [facility] Last Admin: 05/11/17 07:38 Dose: 3 ml Apixaban (Eliquis) 5 mg PO BID [facility] Last Admin: 05/18/17 10:47 Dose: 5 mg Aspirin (Ecotrin) 81 mg PO DAILY [facility] Last Admin: 05/18/17 10:46 Dose: 81 mg Clonazepam (Klonopin) 1 mg PO Q12 [facility] Last Admin: 05/18/17 10:46 Dose: 1 mg Docusate Sodium (Colace) 100 mg PO TID [facility] Last Admin: 05/18/17 10:54 Dose: Not Given Famotidine (Pepcid) 20 mg PO BID [facility] Last Admin: 05/18/17 10:46 Dose: 20 mg Furosemide (Lasix) 40 mg IVP DAILY [facility] Last Admin: 05/18/17 10:36 Dose: 40 mg Gabapentin (Neurontin) 300 mg PO TID [facility] Last Admin: 05/18/17 10:46 Dose: 300 mg Piperacillin Sod/Tazobactam Sod (Zosyn 3.375 Gm Iv Premix) 3.375 gm in 50 mls @ 100 mls/hr IVPB Q6H [facility] Last Admin: 05/18/17 06:35 Dose: 100 mls/hr Immune Globulin 43 gm/ (Miscellaneous) 430 mls @ 0 mls/hr IV DAILY [facility] PRN Reason: UD Stop: 05/22/17 10:01 Methylprednisolone (Solu-Medrol) 20 mg IVP DAILY [facility] Last Admin: 05/18/17 10:28 Dose: 20 mg Morphine Sulfate (Morphine) 2 mg IVP Q4 PRN PRN Reason: Pain, moderate (4-7) Last Admin: 05/18/17 10:55 Dose: 2 mg Ondansetron HCl (Zofran Inj) 4 mg IVP Q4 PRN PRN Reason: Nausea/Vomiting Potassium Chloride (K-Dur 20 Meq Er Tab) 20 meq PO DAILY [facility] Last Admin: 05/18/17 10:46 Dose: 20 meq Ranolazine (Ranexa) 500 mg PO BID [facility] Last Admin: 05/18/17 10:47 Dose: 500 mg Rosuvastatin Calcium (Crestor) 20 mg PO HS [facility] Last Admin: 05/17/17 21:24 Dose: 20 mg Temazepam (Restoril) 15 mg PO HS [facility] Last Admin: 05/17/17 21:24 Dose: 15 mg Tiotropium [place] (Spiriva) 18 mcg INH RQ24 [facility] Last Admin: 05/18/17 07:51 Dose: 18 mcg - Labs Labs: 05/18/17 07:36 05/18/17 07:36 PT 12.4 SECONDS (9.7-12.2) H 05/05/17 06:40 INR 1.1 05/05/17 06:40 APTT 27 SECONDS (21-34) 05/04/17 06:35 - Constitutional Appears: No Acute Distress - Head Exam Head Exam: ATRAUMATIC, NORMOCEPHALIC - ENT Exam ENT Exam: Mucous Membranes Moist - Neck Exam Neck Exam: Normal Inspection - Respiratory Exam Respiratory Exam: Clear to Ausculation Bilateral - Cardiovascular Exam Cardiovascular Exam: REGULAR RHYTHM - GI/Abdominal Exam GI & Abdominal Exam: Soft, Normal Bowel Sounds Assessment and Plan (1) COPD (chronic obstructive pulmonary disease) Assessment & Plan: continue nebulizer treatment Patient refusing CPAP at night Denies any shortness of breath Continue present treatment Status: Chronic (2) OPHELIA (obstructive sleep apnea) Status: Chronic (3) Hypotension Status: Acute
--- NOTE | 2017-05-18 15:44 | CP.PCM.PN ---
Subjective - Date & Time of Evaluation Date of Evaluation: 05/18/17 Time of Evaluation: 08:00 - Subjective Subjective: clinically same Objective - Vital Signs/Intake and Output Vital Signs (last 24 hours): Temp Pulse Resp BP Pulse Ox 98.7 F 93 H 20 108/69 98 05/18/17 08:32 05/18/17 08:32 05/18/17 08:32 05/18/17 10:36 05/18/17 08:32 Intake and Output: 05/18/17 05/18/17 06:59 18:59 Intake Total 350 Output Total 1100 Balance -750 - Medications Medications: Current Medications Albuterol Sulfate (Albuterol 0.083% Inhal Cee (2.5 Mg/3 Ml) Ud) 2.5 mg INH RQ6 PRN PRN Reason: Shortness of Breath Last Admin: 05/18/17 07:51 Dose: 2.5 mg Albuterol/Ipratropium (Duoneb 3 Mg/0.5 Mg (3 Ml) Ud) 3 ml INH RQ6 [facility] Last Admin: 05/11/17 07:38 Dose: 3 ml Apixaban (Eliquis) 5 mg PO BID [facility] Last Admin: 05/18/17 10:47 Dose: 5 mg Aspirin (Ecotrin) 81 mg PO DAILY [facility] Last Admin: 05/18/17 10:46 Dose: 81 mg Clonazepam (Klonopin) 1 mg PO Q12 [facility] Last Admin: 05/18/17 10:46 Dose: 1 mg Docusate Sodium (Colace) 100 mg PO TID [facility] Last Admin: 05/18/17 13:39 Dose: Not Given Famotidine (Pepcid) 20 mg PO BID [facility] Last Admin: 05/18/17 10:46 Dose: 20 mg Furosemide (Lasix) 40 mg IVP DAILY [facility] Last Admin: 05/18/17 10:36 Dose: 40 mg Gabapentin (Neurontin) 300 mg PO TID [facility] Last Admin: 05/18/17 13:39 Dose: Not Given Piperacillin Sod/Tazobactam Sod (Zosyn 3.375 Gm Iv Premix) 3.375 gm in 50 mls @ 100 mls/hr IVPB Q6H [facility] Last Admin: 05/18/17 12:45 Dose: 100 mls/hr Immune Globulin 43 gm/ (Miscellaneous) 860 mls @ 0 mls/hr IV DAILY [facility] PRN Reason: UD Stop: 05/22/17 10:01 Methylprednisolone (Solu-Medrol) 20 mg IVP DAILY [facility] Last Admin: 05/18/17 10:28 Dose: 20 mg Morphine Sulfate (Morphine) 2 mg IVP Q4 PRN PRN Reason: Pain, moderate (4-7) Last Admin: 05/18/17 10:55 Dose: 2 mg Ondansetron HCl (Zofran Inj) 4 mg IVP Q4 PRN PRN Reason: Nausea/Vomiting Potassium Chloride (K-Dur 20 Meq Er Tab) 20 meq PO DAILY [facility] Last Admin: 05/18/17 10:46 Dose: 20 meq Ranolazine (Ranexa) 500 mg PO BID [facility] Last Admin: 05/18/17 10:47 Dose: 500 mg Rosuvastatin Calcium (Crestor) 20 mg PO HS [facility] Last Admin: 05/17/17 21:24 Dose: 20 mg Temazepam (Restoril) 15 mg PO HS [facility] Last Admin: 05/17/17 21:24 Dose: 15 mg Tiotropium [place] (Spiriva) 18 mcg INH RQ24 [facility] Last Admin: 05/18/17 07:51 Dose: 18 mcg - Labs Labs: 05/18/17 07:36 05/18/17 07:36 PT 12.4 SECONDS (9.7-12.2) H 05/05/17 06:40 INR 1.1 05/05/17 06:40 APTT 27 SECONDS (21-34) 05/04/17 06:35 - Constitutional Appears: Well - Head Exam Head Exam: ATRAUMATIC, NORMAL INSPECTION, NORMOCEPHALIC - Eye Exam Eye Exam: EOMI, Normal appearance, PERRL Pupil Exam: NORMAL ACCOMODATION, PERRL - ENT Exam ENT Exam: Mucous Membranes Moist, Normal Exam - Neck Exam Neck Exam: Full ROM, Normal Inspection. absent: Lymphadenopathy - Respiratory Exam Respiratory Exam: Decreased Breath Sounds - Cardiovascular Exam Cardiovascular Exam: REGULAR RHYTHM, +S1, +S2 - GI/Abdominal Exam GI & Abdominal Exam: Soft, Diminished Bowel Sounds - Rectal Exam Rectal Exam: Deferred
[2017-05-18] MEDS ORDERED: Potassium Chloride 20 mEq ER Tab PO STA (16:27)
[2017-05-18] MEDS ORDERED: Potassium Chloride 20 mEq ER Tab PO ONE (18:00)
--- NOTE | 2017-05-18 18:20 | CON ---
NEUROLOGICAL CONSULTATION DATE: 05/18/2017 TIME OF EVALUATION: 7:15 a.m. NEUROLOGICAL PROBLEMS: Acute inflammatory demyelinating polyradiculopathy, status post respiratory failure with treatment of plasmapheresis. PHYSICAL EXAMINATION: VITAL SIGNS: The current vital signs, blood pressure 100/63 with a mean arterial pressure of 75, respiratory rate 18, temperature 98.4, pulse rate 74 and regular. NEURO: Mentation is much improved, back to her baseline. Complaining of pain which she could not be able to control. The current medications what ever she is taking is not enough for her. Motor examination of upper extremities is back to normal almost. Lower extremities, left more than right side; however, the right foot drop which has been found at the beginning which is old. Deep tendon reflexes are absent. PLAN: The patient has a completed plasma exchange as recommended. The patient is scheduled to have intravenous immunoglobulin 0.4 g/kg daily for x5 days. Medications have been discussed with the pharmacist. They are going to make it and they are going to get it today. In the meantime, the patient is recommended to have physical therapy and DVT prophylaxis. Antibiotics should be given as per ID. The patient is scheduled to have physical therapy, getting her out of bed and keep her on cardiac chair. The patient will be followed closely with you. Mario Irvin MD
[2017-05-19] MEDS: Piperacill/Tazo 3.375gm in Dex 3.375 GM/50 ML BAG IVPB SCH ×4 (00:40→18:31)
[2017-05-19] MEDS: Tiotropium 18 mcg Cap For Inhalation INH SCH (07:45)
[2017-05-19] MEDS ORDERED: IMMUNE GLOBULIN IV SCH ×2 (10:00)
[2017-05-19] MEDS ORDERED: PREMIXED IV SCH ×2 (10:00)
[2017-05-19] MEDS: Morphine 4 MG/ML VIAL IV PRN ×2 (10:27→14:16)
[2017-05-19] MEDS: Potassium Chloride 20 mEq ER Tab PO SCH (10:32)
[2017-05-19] MEDS: Ranolazine 500 mg Extended Release Tablets PO SCH ×2 (10:32→18:28)
[2017-05-19] MEDS: MethylPREDNISolone 40 mg Vial IVP SCH (10:34)
--- NOTE | 2017-05-19 18:11 | CP.PCM.PN ---
Subjective - Date & Time of Evaluation Date of Evaluation: 05/19/17 Time of Evaluation: 09:20 - Subjective Subjective: clinically same Objective - Vital Signs/Intake and Output Vital Signs (last 24 hours): Temp Pulse Resp BP Pulse Ox 97.9 F 70 20 103/72 96 05/19/17 15:40 05/19/17 15:40 05/19/17 15:40 05/19/17 15:40 05/19/17 15:40 Intake and Output: 05/19/17 05/19/17 06:59 18:59 Output Total 1550 Balance -1550 - Medications Medications: Current Medications Albuterol Sulfate (Albuterol 0.083% Inhal Cee (2.5 Mg/3 Ml) Ud) 2.5 mg INH RQ6 PRN PRN Reason: Shortness of Breath Last Admin: 05/18/17 07:51 Dose: 2.5 mg Albuterol/Ipratropium (Duoneb 3 Mg/0.5 Mg (3 Ml) Ud) 3 ml INH RQ6 [facility] Last Admin: 05/11/17 07:38 Dose: 3 ml Apixaban (Eliquis) 5 mg PO BID [facility] Last Admin: 05/19/17 10:44 Dose: 5 mg Aspirin (Ecotrin) 81 mg PO DAILY [facility] Last Admin: 05/19/17 10:32 Dose: 81 mg Clonazepam (Klonopin) 1 mg PO Q12 [facility] Last Admin: 05/19/17 10:32 Dose: 1 mg Docusate Sodium (Colace) 100 mg PO TID [facility] Last Admin: 05/19/17 15:37 Dose: Not Given Famotidine (Pepcid) 20 mg PO BID [facility] Last Admin: 05/19/17 10:33 Dose: 20 mg Furosemide (Lasix) 40 mg IVP DAILY [facility] Last Admin: 05/19/17 10:31 Dose: 40 mg Gabapentin (Neurontin) 600 mg PO TID [facility] Last Admin: 05/19/17 14:16 Dose: 600 mg Hydromorphone HCl (Dilaudid) 1 mg IVP Q4H PRN PRN Reason: pain Piperacillin Sod/Tazobactam Sod (Zosyn 3.375 Gm Iv Premix) 3.375 gm in 50 mls @ 100 mls/hr IVPB Q6H [facility] Last Admin: 05/19/17 16:13 Dose: Not Given Immune Globulin 43 gm/ (Miscellaneous) 860 mls @ 0 mls/hr IV DAILY [facility] PRN Reason: UD Stop: 05/22/17 10:01 Last Admin: 05/19/17 10:49 Dose: 50 mls/hr Methylprednisolone (Solu-Medrol) 20 mg IVP DAILY [facility] Last Admin: 05/19/17 10:34 Dose: 20 mg Potassium Chloride (K-Dur 20 Meq Er Tab) 20 meq PO DAILY [facility] Last Admin: 05/19/17 10:32 Dose: 20 meq Ranolazine (Ranexa) 500 mg PO BID [facility] Last Admin: 05/19/17 10:32 Dose: 500 mg Rosuvastatin Calcium (Crestor) 20 mg PO HS [facility] Last Admin: 05/18/17 21:50 Dose: 20 mg Temazepam (Restoril) 15 mg PO HS [facility] Last Admin: 05/18/17 21:51 Dose: 15 mg Tiotropium [place] (Spiriva) 18 mcg INH RQ24 [facility] Last Admin: 05/19/17 07:45 Dose: 18 mcg - Labs Labs: 05/18/17 07:36 05/18/17 07:36 PT 12.4 SECONDS (9.7-12.2) H 05/05/17 06:40 INR 1.1 05/05/17 06:40 APTT 27 SECONDS (21-34) 05/04/17 06:35 - Constitutional Appears: Well - Head Exam Head Exam: ATRAUMATIC, NORMAL INSPECTION, NORMOCEPHALIC - Eye Exam Eye Exam: EOMI, Normal appearance, PERRL Pupil Exam: NORMAL ACCOMODATION, PERRL - ENT Exam ENT Exam: Mucous Membranes Moist, Normal Exam - Neck Exam Neck Exam: Full ROM, Normal Inspection. absent: Lymphadenopathy - Respiratory Exam Respiratory Exam: Decreased Breath Sounds - Cardiovascular Exam Cardiovascular Exam: REGULAR RHYTHM, +S1, +S2 - GI/Abdominal Exam GI & Abdominal Exam: Soft, Diminished Bowel Sounds - Rectal Exam Rectal Exam: Deferred
--- NOTE | 2017-05-19 18:56 | PN ---
DATE OF EVALUATION: 05/19/2017 TIME OF EVALUATION: 7:15 a.m. PHYSICAL EXAMINATION: VITAL SIGNS: Blood pressure 101/66, mean arterial pressure of 77, respiratory rate 18, temperature 97.6, pulse rate 95. NEUROLOGICAL PROBLEMS: Acute inflammatory demyelinating neuropathy, status post plasmapheresis, currently on IVIG. The patient is still complaining of pain. The patient has been moved from the third floor to the fifth floor because of her wound culture positive for MRSA. Neuro examination unchanged. The patient is scheduled to have intravenous immunoglobulin scheduled 2 hours by today. Physical therapy and DVT prophylaxis will be continued. The patient can be benefited with increasing the dose of gabapentin for her increasing burning sensation of her feet. The patient will be followed closely with you. Mario Irvin MD
[2017-05-20] MEDS: Piperacill/Tazo 3.375gm in Dex 3.375 GM/50 ML BAG IVPB SCH ×5 (01:37→19:03)
[2017-05-20] MEDS: Tiotropium 18 mcg Cap For Inhalation INH SCH (09:08)
[2017-05-20] MEDS: MethylPREDNISolone 40 mg Vial IVP SCH (10:05)
[2017-05-20] MEDS: Ranolazine 500 mg Extended Release Tablets PO SCH ×2 (10:05→17:42)
[2017-05-20 10:14] LABS: BASO # 0.1 K/uL (0.0-0.2); BASO % 0.5 % (0.0-2.0); EOS # 0.8 K/uL (0.0-0.7); EOS % 4.5 % (0.0-4.0); HEMATOCRIT 25.6 % (34.0-47.0); LYMPH # 2.6 K/uL (1.0-4.3); LYMPH % 15.7 % (20.0-40.0); MEAN CELL VOLUME 87.2 fL (81.0-99.0); MEAN CORPUSCULAR HEMOGLOBIN 27.6 pg (27.0-31.0); MEAN CORPUSCULAR HGB CONC 31.6 g/dL (33.0-37.0); MEAN PLATELET VOLUME 8.2 fL (7.2-11.7); MONO # 0.9 K/uL (0.0-0.8); MONO % 5.6 % (0.0-10.0); RED CELL DISTRIBUTION WIDTH 21.6 % (11.5-14.5); WHITE BLOOD COUNT 16.8 K/uL (4.8-10.8)
[2017-05-20 10:28] LABS: ALB/GLOB RATIO 1.1 (1.0-2.1); ALKALINE PHOSPHATASE 45 U/L (38-126); ALT/SGPT 24 U/L (9-52); AST/SGOT 16 U/L (14-36); BILIRUBIN,TOTAL 0.4 mg/dL (0.2-1.3); BLOOD UREA NITROGEN 22 mg/dL (7-17); CALCIUM 9.3 mg/dl (8.6-10.4); CARBON DIOXIDE 27 mmol/L (22-30); CHLORIDE 99 mmol/L (98-107); GFR AFRICAN-AMERICAN > 60; GLUCOSE,RANDOM 83 mg/dL (65-105); POTASSIUM 3.9 mmol/L (3.6-5.2); SODIUM 137 mmol/L (132-148); TOTAL PROTEIN 6.8 g/dL (6.3-8.3)
[2017-05-20] MEDS: Potassium Chloride 20 mEq ER Tab PO SCH (10:41)
--- NOTE | 2017-05-20 11:14 | PN ---
DATE: 05/20/2017 NEUROLOGICAL PROBLEM: Acute inflammatory demyelinating neuropathy. PHYSICAL EXAMINATION: VITAL SIGNS: Blood pressure of 106/66, mean arterial pressure of 79, respiratory rate of 18, temperature of 98.1, and pulse rate of 87 and regular. NEUROLOGIC: The patient is awake, alert and oriented to person, place and time. Cranial nerve examinations, which are all normal. Examination is unchanged to compare with my previous examination. She appears comfortable with the pain control. On increasing gabapentin, she is tolerating well without any side effects. ASSESSMENT AND PLAN: Initially, the patient was scheduled to have MRI of the brain because of the respiratory failure and intubation, this was on hold. At this time, I would like to request MRI of the brain, cervical spine and lumbosacral spine to rule out any structural pathology. We will continue present management. Mario Irvin MD
--- NOTE | 2017-05-20 13:04 | MRI ---
PROCEDURE: MRI BRAIN WITHOUT CONTRAST HISTORY: R/O CENTRAL CAUSE FOR PARAPARESIS COMPARISON: Head CT without contrast dated 04/06/2017 TECHNIQUE: Multiplanar, multisequence MR images of the brain were obtained without intravenous contrast enhancement. FINDINGS: HEMORRHAGE: None DWI: No evidence of an acute or early subacute infarction. BRAIN PARENCHYMA: Mild age related neuro degenerate changes are reiterated the current examination though the chronic microangiopathy is better defined in the current study. No mass-effect is identified in the midline brain anatomy appears unremarkable once again. Posterior fossa contents remain grossly nonfocal. No suspicious extra-axial fluid collection is noted. VENTRICLES: Unremarkable. No hydrocephalus. CRANIUM: Unremarkable. ORBITS: Grossly unremarkable. PARANASAL SINUSES/MASTOIDS: Clear VASCULAR SYSTEM: Skull base flow voids intact. OTHER FINDINGS: None. IMPRESSION: 1. No evidence to suggest an acute or separate brain infarction at this time. 2. Mild age related, age-appropriate neuro degenerative findings reiterated compared to CT 04/06/2017.
--- NOTE | 2017-05-20 13:12 | MRI ---
PROCEDURE: MR CERVICAL SPINE WITHOUT CONTRAST HISTORY: MYELOPATHY COMPARISON: None available. TECHNIQUE: Multiecho multiplanar sequences were performed through the cervical spine without the use of intravenous contrast. FINDINGS: Cervical curvature appears slightly reversed. Multilevel spondylosis appreciate as well as diffuse disc desiccation. No suspicious marrow signal changes are identified and there is no fracture or spondylolisthesis is encountered. Intrinsic cervical spinal cord signal appears normal with adequate cervical spinal cord grossly normal in overall caliber throughout. Prevertebral paraspinal soft tissues appear diffusely unremarkable. C2-C3: No disc herniation, spinal canal stenosis or neural foraminal narrowing. C3-C4: A limited disc osteophyte is appreciated causing borderline central canal stenosis. No disc herniation. No significant neural foraminal stenosis. C4-C5: An additional disc osteophyte complex encroaches not impinges ventral nerve roots without cord deformity. No disc herniation Borderline central stenosis is identified. No right neural foraminal stenosis. A borderline left neural foraminal stenosis appears degenerative due to facet and uncovertebral joint osteophytes. C5-C6: An additional disc osteophyte is identified encroaching if not impinging ventral nerve roots symmetrically with a borderline central stenosis identified. No disc herniation. No significant neural foraminal stenosis. C6-C7: A mild central disc herniation identified encroaching ventral nerve roots without cord deformity. No generalized central canal stenosis appreciated. Neural foramina appear widely patent. C7-T1: No disc herniation, spinal canal stenosis or neural foraminal narrowing. OTHER FINDINGS: None. IMPRESSION: 1. A small central disc herniation at C6-7 encroaches ventral nerve roots without generalized central canal stenosis. 2. Multilevel uppers midcervical spondylosis appreciated with multilevel borderline central stenosis. No severe stenosis is seen throughout the examination. 3. Mild reversal of cervical spinal curvature.
--- NOTE | 2017-05-20 15:57 | MRI ---
PROCEDURE: MR LUMBAR SPINE WITHOUT CONTRAST HISTORY: L/S STENOSIS COMPARISON: None available. TECHNIQUE: Multiecho multiplanar sequences were performed through the lumbar spine without the use of intravenous contrast. FINDINGS: There is straightened lumbar curvature. No fracture or spondylolisthesis identified. Marrow signal is diffusely diminished across all sequences which may reflect anemia or other hematopoietic. There is no definitive mass like signal change seen in the vertebral body specifically. There is no fracture or spondylolisthesis identified. The conus medullaris terminates at the L1 mid vertebral level and appears normal in intrinsic signal. There is a questionable dextroscoliotic spinal deformity which is mild. Note is made of marked disc height loss at L3-4 and L4-5 with fluid identified in both these disc spaces. Endplate degenerative changes are identified more so at L4-5 and L3-4. Inhomogeneous signal changes at the endplate surrounding the L3-4 disc interspace are identified. Discitis is not favored but is difficult to completely exclude. No prevertebral or paraspinal soft tissue inflammation is appreciated or fluid collection. These findings are likely a function of advanced degenerate disease but further clinical correlation is advised. T12-L1: Incidentally, T11-12, there is a generalized disc osteophyte complexes greater anteriorly than posteriorly without significant stenosis resulting. At T12-L1, there is a central disc herniation with an accompanying osteophyte inverting the ventral thecal sac mildly and causing mild central canal stenosis. No definite neural foraminal stenosis. L1-2: Mild generalized disc bulging is appreciated without significant stenosis resulting. No disc herniation. L2-3: A disc osteophyte complex is appreciated results in mild central canal stenosis concentrated at the lateral recesses. Facet joint arthropathy appears moderate with a mild right neural foraminal stenosis identified, none at the left. L3-4: A moderate central canal stenosis identified somewhat greater the right than left sides due to an asymmetric disc osteophyte complex and asymmetric facet joint arthropathy. No disc herniation is identified here. Severe left and moderate right degenerative neural foraminal stenoses are identified. L4-5: No disc herniations identified however disc osteophyte complex identified combined with prominent facet joint arthropathy causing moderate to severe central canal stenosis and severe bilateral neural foraminal stenosis greater at the right than left sides. L5-S1: No disc herniation identified. A mild disc osteophyte complexes generalized combining with moderate to severe facet arthropathy to cause lateral recess stenosis symmetrically with central canal adequately patent otherwise. [id number] right and moderate left neural foraminal stenoses are identified. OTHER FINDINGS: None. IMPRESSION: 1. A central disc herniations identify with accompanying osteophytes at T12-11 causing mild central canal stenosis. The conus medullaris is encroached but not definitively impinged. 2. Multilevel advanced facet joint and degenerative disc disease resulting in variable central canal stenoses worsening at the mid to lower levels as discussed above. Findings are most severe at L3-4 and L4-5 where moderate and moderate to severe central canal stenosis are encountered as discussed above respectively. 3. Fluid in the L3-4 and L4-5 disc interspace is felt to be a function of degenerative disease. No paraspinal fluid collection or edema is appreciated and no definite marrow edema is seen related either. Discitis is difficult to completely exclude nevertheless. Further clinical correlation is advised. Contrast MRI may be helpful.
--- NOTE | 2017-05-20 16:55 | CP.PCM.PN ---
Subjective - Date & Time of Evaluation Date of Evaluation: 05/20/17 Time of Evaluation: 09:00 - Subjective Subjective: clinically same Objective - Vital Signs/Intake and Output Vital Signs (last 24 hours): Temp Pulse Resp BP Pulse Ox 98.3 F 87 20 127/75 98 05/20/17 15:33 05/20/17 15:33 05/20/17 15:33 05/20/17 15:33 05/20/17 15:33 Intake and Output: 05/20/17 05/20/17 06:59 18:59 Intake Total 650 Output Total 650 Balance 0 - Medications Medications: Current Medications Albuterol Sulfate (Albuterol 0.083% Inhal [place] (2.5 Mg/3 Ml) Ud) 2.5 mg INH RQ6 PRN PRN Reason: Shortness of Breath Last Admin: 05/18/17 07:51 Dose: 2.5 mg Albuterol/Ipratropium (Duoneb 3 Mg/0.5 Mg (3 Ml) Ud) 3 ml INH RQ6 [facility] Last Admin: 05/11/17 07:38 Dose: 3 ml Apixaban (Eliquis) 5 mg PO BID [facility] Last Admin: 05/20/17 10:41 Dose: 5 mg Aspirin (Ecotrin) 81 mg PO DAILY [facility] Last Admin: 05/20/17 10:41 Dose: 81 mg Clonazepam (Klonopin) 1 mg PO Q12 [facility] Last Admin: 05/20/17 10:05 Dose: 1 mg Docusate Sodium (Colace) 100 mg PO TID [facility] Last Admin: 05/20/17 13:22 Dose: Not Given Famotidine (Pepcid) 20 mg PO BID [facility] Last Admin: 05/20/17 10:05 Dose: 20 mg Furosemide (Lasix) 40 mg IVP DAILY [facility] Last Admin: 05/20/17 10:41 Dose: 40 mg Gabapentin (Neurontin) 600 mg PO TID [facility] Last Admin: 05/20/17 13:23 Dose: Not Given Hydromorphone HCl (Dilaudid) 1 mg IVP Q4H PRN PRN Reason: pain Last Admin: 05/20/17 14:43 Dose: 1 mg Piperacillin Sod/Tazobactam Sod (Zosyn 3.375 Gm Iv Premix) 3.375 gm in 50 mls @ 100 mls/hr IVPB Q6H [facility] Last Admin: 05/20/17 14:21 Dose: 100 mls/hr Immune Globulin 43 gm/ (Miscellaneous) 860 mls @ 0 mls/hr IV Q24H [facility] PRN Reason: Per Protocol Stop: 05/22/17 17:01 Methylprednisolone (Solu-Medrol) 20 mg IVP DAILY [facility] Last Admin: 05/20/17 10:05 Dose: 20 mg Potassium Chloride (K-Dur 20 Meq Er Tab) 20 meq PO DAILY [facility] Last Admin: 05/20/17 10:41 Dose: 20 meq Ranolazine (Ranexa) 500 mg PO BID [facility] Last Admin: 05/20/17 10:05 Dose: 500 mg Rosuvastatin Calcium (Crestor) 20 mg PO HS [facility] Last Admin: 05/19/17 22:02 Dose: 20 mg Temazepam (Restoril) 15 mg PO HS [facility] Last Admin: 05/19/17 22:02 Dose: 15 mg Tiotropium [place] (Spiriva) 18 mcg INH RQ24 [facility] Last Admin: 05/20/17 09:08 Dose: Not Given - Labs Labs: 05/20/17 10:06 05/20/17 10:06 PT 12.4 SECONDS (9.7-12.2) H 05/05/17 06:40 INR 1.1 05/05/17 06:40 APTT 27 SECONDS (21-34) 05/04/17 06:35
[2017-05-20] MEDS: IMMUNE GLOBULIN IV SCH (16:59)
[2017-05-20] MEDS: PREMIXED IV SCH (16:59)
--- NOTE | 2017-05-20 18:20 | CP.PCM.PN ---
Subjective - Date & Time of Evaluation Date of Evaluation: 05/20/17 Time of Evaluation: 15:20 - Subjective Subjective: No complaints. Objective - Vital Signs/Intake and Output Vital Signs (last 24 hours): Temp Pulse Resp BP Pulse Ox 98.3 F 87 20 127/75 98 05/20/17 15:33 05/20/17 15:33 05/20/17 15:33 05/20/17 15:33 05/20/17 15:33 Intake and Output: 05/20/17 05/20/17 06:59 18:59 Intake Total 650 300 Output Total 650 Balance 0 300 - Medications Medications: Current Medications Albuterol Sulfate (Albuterol 0.083% Inhal Cee (2.5 Mg/3 Ml) Ud) 2.5 mg INH RQ6 PRN PRN Reason: Shortness of Breath Last Admin: 05/18/17 07:51 Dose: 2.5 mg Albuterol/Ipratropium (Duoneb 3 Mg/0.5 Mg (3 Ml) Ud) 3 ml INH RQ6 [facility] Last Admin: 05/11/17 07:38 Dose: 3 ml Apixaban (Eliquis) 5 mg PO BID [facility] Last Admin: 05/20/17 17:42 Dose: 5 mg Aspirin (Ecotrin) 81 mg PO DAILY [facility] Last Admin: 05/20/17 10:41 Dose: 81 mg Clonazepam (Klonopin) 1 mg PO Q12 [facility] Last Admin: 05/20/17 10:05 Dose: 1 mg Docusate Sodium (Colace) 100 mg PO TID [facility] Last Admin: 05/20/17 17:42 Dose: 100 mg Famotidine (Pepcid) 20 mg PO BID [facility] Last Admin: 05/20/17 17:42 Dose: 20 mg Furosemide (Lasix) 40 mg IVP DAILY [facility] Last Admin: 05/20/17 10:41 Dose: 40 mg Gabapentin (Neurontin) 600 mg PO TID [facility] Last Admin: 05/20/17 17:42 Dose: 600 mg Hydromorphone HCl (Dilaudid) 1 mg IVP Q4H PRN PRN Reason: pain Last Admin: 05/20/17 14:43 Dose: 1 mg Piperacillin Sod/Tazobactam Sod (Zosyn 3.375 Gm Iv Premix) 3.375 gm in 50 mls @ 100 mls/hr IVPB Q6H [facility] Last Admin: 05/20/17 14:21 Dose: 100 mls/hr Immune Globulin 43 gm/ (Miscellaneous) 860 mls @ 0 mls/hr IV Q24H [facility] PRN Reason: Per Protocol Stop: 05/22/17 17:01 Last Admin: 05/20/17 16:59 Dose: 60 mls/hr Methylprednisolone (Solu-Medrol) 20 mg IVP DAILY [facility] Last Admin: 05/20/17 10:05 Dose: 20 mg Potassium Chloride (K-Dur 20 Meq Er Tab) 20 meq PO DAILY [facility] Last Admin: 05/20/17 10:41 Dose: 20 meq Ranolazine (Ranexa) 500 mg PO BID [facility] Last Admin: 05/20/17 17:42 Dose: 500 mg Rosuvastatin Calcium (Crestor) 20 mg PO HS [facility] Last Admin: 05/19/17 22:02 Dose: 20 mg Temazepam (Restoril) 15 mg PO HS [facility] Last Admin: 05/19/17 22:02 Dose: 15 mg Tiotropium [place] (Spiriva) 18 mcg INH RQ24 [facility] Last Admin: 05/20/17 09:08 Dose: Not Given - Labs Labs: 05/20/17 10:06 05/20/17 10:06 PT 12.4 SECONDS (9.7-12.2) H 05/05/17 06:40 INR 1.1 05/05/17 06:40 APTT 27 SECONDS (21-34) 05/04/17 06:35 - Head Exam Head Exam: ATRAUMATIC - Eye Exam Eye Exam: Normal appearance - ENT Exam ENT Exam: Mucous Membranes Dry - Respiratory Exam Respiratory Exam: NORMAL BREATHING PATTERN - Cardiovascular Exam Cardiovascular Exam: +S1, +S2 - GI/Abdominal Exam GI & Abdominal Exam: Normal Bowel Sounds Assessment and Plan (1) 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
[2017-05-21] MEDS: Piperacill/Tazo 3.375gm in Dex 3.375 GM/50 ML BAG IVPB SCH ×4 (00:27→19:47)
[2017-05-21] MEDS: Tiotropium 18 mcg Cap For Inhalation INH SCH (09:20)
[2017-05-21] MEDS: MethylPREDNISolone 40 mg Vial IVP SCH (09:58)
[2017-05-21] MEDS: Potassium Chloride 20 mEq ER Tab PO SCH (09:59)
[2017-05-21] MEDS: Ranolazine 500 mg Extended Release Tablets PO SCH ×2 (09:59→19:00)
[2017-05-21] MEDS: HYDROmorphone 1 mg/ml ISec IVP PRN ×3 (10:30→19:41)
--- NOTE | 2017-05-21 11:18 | CP.PCM.PN ---
Subjective - Date & Time of Evaluation Date of Evaluation: 05/21/17 Time of Evaluation: 07:20 - Subjective Subjective: clinically same Objective - Vital Signs/Intake and Output Vital Signs (last 24 hours): Temp Pulse Resp BP Pulse Ox 98.8 F 90 20 122/71 97 05/21/17 07:44 05/21/17 07:44 05/21/17 07:44 05/21/17 09:59 05/21/17 07:44 Intake and Output: 05/21/17 05/21/17 06:59 18:59 Intake Total 170 300 Output Total 450 400 Balance -280 -100 - Medications Medications: Current Medications Albuterol/Ipratropium (Duoneb 3 Mg/0.5 Mg (3 Ml) Ud) 3 ml INH RQ6 [facility] Last Admin: 05/11/17 07:38 Dose: 3 ml Apixaban (Eliquis) 5 mg PO BID [facility] Last Admin: 05/21/17 09:59 Dose: 5 mg Aspirin (Ecotrin) 81 mg PO DAILY [facility] Last Admin: 05/21/17 09:59 Dose: 81 mg Clonazepam (Klonopin) 1 mg PO Q12 [facility] Last Admin: 05/21/17 09:59 Dose: 1 mg Docusate Sodium (Colace) 100 mg PO TID [facility] Last Admin: 05/21/17 09:59 Dose: 100 mg Famotidine (Pepcid) 20 mg PO BID [facility] Last Admin: 05/21/17 09:59 Dose: 20 mg Furosemide (Lasix) 40 mg IVP DAILY [facility] Last Admin: 05/21/17 09:59 Dose: 40 mg Gabapentin (Neurontin) 600 mg PO TID [facility] Last Admin: 05/21/17 09:58 Dose: 600 mg Hydromorphone HCl (Dilaudid) 1 mg IVP Q4H PRN PRN Reason: pain Last Admin: 05/21/17 10:30 Dose: 1 mg Piperacillin Sod/Tazobactam Sod (Zosyn 3.375 Gm Iv Premix) 3.375 gm in 50 mls @ 100 mls/hr IVPB Q6H [facility] Last Admin: 05/21/17 06:31 Dose: 100 mls/hr Immune Globulin 43 gm/ (Miscellaneous) 860 mls @ 0 mls/hr IV Q24H [facility] PRN Reason: Per Protocol Stop: 05/22/17 17:01 Last Admin: 05/20/17 16:59 Dose: 60 mls/hr Methylprednisolone (Solu-Medrol) 20 mg IVP DAILY [facility] Last Admin: 05/21/17 09:58 Dose: 20 mg Potassium Chloride (K-Dur 20 Meq Er Tab) 20 meq PO DAILY [facility] Last Admin: 05/21/17 09:59 Dose: 20 meq Ranolazine (Ranexa) 500 mg PO BID [facility] Last Admin: 05/21/17 09:59 Dose: 500 mg Rosuvastatin Calcium (Crestor) 20 mg PO HS [facility] Last Admin: 05/20/17 21:46 Dose: 20 mg Tiotropium [place] (Spiriva) 18 mcg INH RQ24 [facility] Last Admin: 05/20/17 09:08 Dose: Not Given - Labs Labs: 05/20/17 10:06 05/20/17 10:06 PT 12.4 SECONDS (9.7-12.2) H 05/05/17 06:40 INR 1.1 05/05/17 06:40 APTT 27 SECONDS (21-34) 05/04/17 06:35 - Constitutional Appears: Well - Head Exam Head Exam: ATRAUMATIC, NORMAL INSPECTION, NORMOCEPHALIC - Eye Exam Eye Exam: EOMI, Normal appearance, PERRL Pupil Exam: NORMAL ACCOMODATION, PERRL - ENT Exam ENT Exam: Mucous Membranes Moist, Normal Exam - Neck Exam Neck Exam: Full ROM, Normal Inspection. absent: Lymphadenopathy - Respiratory Exam Respiratory Exam: Decreased Breath Sounds - Cardiovascular Exam Cardiovascular Exam: REGULAR RHYTHM, +S1, +S2 - GI/Abdominal Exam GI & Abdominal Exam: Soft, Diminished Bowel Sounds - Rectal Exam Rectal Exam: Deferred
--- NOTE | 2017-05-21 14:38 | PN ---
DATE OF EVALUATION: 05/21/2017 TIME OF EVALUATION: 07:10 a.m. 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 PHYSICAL EXAMINATION: VITAL SIGNS: Blood pressure 105/62, mean arterial pressure of 76, respiratory rate 18, temperature 98.2, pulse rate 92 and regular. The patient's examination which is unchanged, areflexic with left leg weakness more than the right leg with right footdrop. The patient did undergo MRI of cervical spine and lumbosacral spine and MRA of the brain all reviewed. Brain has no evidence of any acute infectious or inflammatory process. MRA of cervical spine showed multilevel disc spondylosis appreciated and central disc herniation over C6 and C7 without any cord pathology. Lumbosacral spine also reviewed and showed multilevel advanced degenerative disc disease from L2 through L5 region. The patient has been getting intravenous immunoglobulin as recommended. All workup from neurology is completed following getting therapy. Tomorrow will be the last day for her immunoglobulin therapy following this patient is neurologically cleared to go for acute rehabilitation. The patient is requested to seen as followup with as an outpatient for she would need after diagnostic studies for further localizing her problem. In the meantime, likely to continue physical therapy and acute rehabilitation placement. Mario Irvin MD
[2017-05-21] MEDS: IMMUNE GLOBULIN IV SCH (16:09)
[2017-05-21] MEDS: PREMIXED IV SCH (16:09)
[2017-05-22] MEDS: HYDROmorphone 1 mg/ml ISec IVP PRN ×5 (01:30→21:02)
[2017-05-22] MEDS: Piperacill/Tazo 3.375gm in Dex 3.375 GM/50 ML BAG IVPB SCH ×4 (01:30→18:28)
[2017-05-22] MEDS: Tiotropium 18 mcg Cap For Inhalation INH SCH (07:45)
[2017-05-22] MEDS: MethylPREDNISolone 40 mg Vial IVP SCH (11:48)
[2017-05-22] MEDS: Potassium Chloride 20 mEq ER Tab PO SCH (12:36)
[2017-05-22] MEDS: Ranolazine 500 mg Extended Release Tablets PO SCH ×2 (12:36→18:25)
--- NOTE | 2017-05-22 14:14 | CP.PCM.PN ---
Subjective - Date & Time of Evaluation Date of Evaluation: 05/22/17 Time of Evaluation: 08:20 - Subjective Subjective: clinically same Objective - Vital Signs/Intake and Output Vital Signs (last 24 hours): Temp Pulse Resp BP Pulse Ox 97.8 F 90 20 104/70 96 05/22/17 08:00 05/22/17 08:00 05/22/17 08:00 05/22/17 11:47 05/22/17 08:00 Intake and Output: 05/22/17 05/22/17 06:59 18:59 Intake Total 620 Output Total 1000 Balance -380 - Medications Medications: Current Medications Albuterol/Ipratropium (Duoneb 3 Mg/0.5 Mg (3 Ml) Ud) 3 ml INH RQ6 [facility] Last Admin: 05/11/17 07:38 Dose: 3 ml Apixaban (Eliquis) 5 mg PO BID [facility] Last Admin: 05/22/17 10:52 Dose: 5 mg Aspirin (Ecotrin) 81 mg PO DAILY [facility] Last Admin: 05/22/17 10:52 Dose: 81 mg Clonazepam (Klonopin) 1 mg PO Q12 [facility] Last Admin: 05/22/17 10:52 Dose: 1 mg Docusate Sodium (Colace) 100 mg PO TID [facility] Last Admin: 05/22/17 13:58 Dose: 100 mg Famotidine (Pepcid) 20 mg PO BID [facility] Last Admin: 05/22/17 10:51 Dose: 20 mg Furosemide (Lasix) 40 mg IVP DAILY [facility] Last Admin: 05/22/17 11:47 Dose: 40 mg Gabapentin (Neurontin) 600 mg PO TID [facility] Last Admin: 05/22/17 13:58 Dose: 600 mg Hydromorphone HCl (Dilaudid) 1 mg IVP Q4H PRN PRN Reason: pain Last Admin: 05/22/17 06:56 Dose: 1 mg Piperacillin Sod/Tazobactam Sod (Zosyn 3.375 Gm Iv Premix) 3.375 gm in 50 mls @ 100 mls/hr IVPB Q6H [facility] Last Admin: 05/22/17 12:36 Dose: 100 mls/hr Immune Globulin 43 gm/ (Miscellaneous) 860 mls @ 0 mls/hr IV Q24H [facility] PRN Reason: Per Protocol Stop: 05/22/17 17:01 Last Admin: 05/21/17 16:09 Dose: 60 mls/hr Methylprednisolone (Solu-Medrol) 20 mg IVP DAILY [facility] Last Admin: 05/22/17 11:48 Dose: 20 mg Potassium Chloride (K-Dur 20 Meq Er Tab) 20 meq PO DAILY [facility] Last Admin: 05/22/17 12:36 Dose: 20 meq Ranolazine (Ranexa) 500 mg PO BID [facility] Last Admin: 05/22/17 12:36 Dose: 500 mg Rosuvastatin Calcium (Crestor) 20 mg PO HS [facility] Last Admin: 05/21/17 22:05 Dose: 20 mg Tiotropium [place] (Spiriva) 18 mcg INH RQ24 [facility] Last Admin: 05/22/17 07:45 Dose: 18 mcg - Labs Labs: 05/20/17 10:06 05/20/17 10:06 PT 12.4 SECONDS (9.7-12.2) H 05/05/17 06:40 INR 1.1 05/05/17 06:40 APTT 27 SECONDS (21-34) 05/04/17 06:35 - Constitutional Appears: Well - Head Exam Head Exam: ATRAUMATIC, NORMAL INSPECTION, NORMOCEPHALIC - Eye Exam Eye Exam: EOMI, Normal appearance, PERRL - ENT Exam ENT Exam: Mucous Membranes Moist, Normal Exam - Neck Exam Neck Exam: Full ROM, Normal Inspection. absent: Lymphadenopathy - Respiratory Exam Respiratory Exam: Decreased Breath Sounds - Cardiovascular Exam Cardiovascular Exam: REGULAR RHYTHM, +S1, +S2. absent: Murmur - GI/Abdominal Exam GI & Abdominal Exam: Diminished Bowel Sounds - Rectal Exam Rectal Exam: Deferred Assessment and Plan (1) Anemia Status: Acute (2) Dehydration Status: Acute (3) Guillain Tesfaye syndrome Status: Acute (4) Hypotension Status: Acute (5) Monoclonal gammopathy Status: Acute (6) Sepsis Status: Acute (7) Morbidly obese Status: Chronic (8) Altered mental status Status: Acute (9) Anxiety Status: Acute (10) Cellulitis Status: Acute (11) Chronic pain Status: Acute (12) Fall Status: Acute (13) History of benzodiazepine use Status: Acute (14) Leukocytosis Status: Acute (15) Opiate use Status: Acute (16) Prophylactic measure Status: Acute (17) Rhabdomyolysis Status: Acute (18) Sacral wound Status: Acute (19) Weakness Status: Acute (20) COPD (chronic obstructive pulmonary disease) Status: Chronic (21) HTN (hypertension) Status: Chronic (22) OPHELIA (obstructive sleep apnea) Status: Chronic (23) Spinal stenosis Status: Chronic (24) Non-STEMI (non-ST elevated myocardial infarction) Status: Resolved (25) SIRS (systemic inflammatory response syndrome) Status: Resolved
[2017-05-22] MEDS: IMMUNE GLOBULIN IV SCH (16:19)
[2017-05-22] MEDS: PREMIXED IV SCH (16:19)
[2017-05-23] MEDS: Piperacill/Tazo 3.375gm in Dex 3.375 GM/50 ML BAG IVPB SCH ×4 (01:32→18:27)
[2017-05-23] MEDS: HYDROmorphone 1 mg/ml ISec IVP PRN ×5 (01:37→20:22)
[2017-05-23] MEDS: Tiotropium 18 mcg Cap For Inhalation INH SCH (07:30)
[2017-05-23] MEDS: MethylPREDNISolone 40 mg Vial IVP SCH (10:18)
[2017-05-23] MEDS: Potassium Chloride 20 mEq ER Tab PO SCH (10:19)
[2017-05-23] MEDS: Ranolazine 500 mg Extended Release Tablets PO SCH ×2 (10:19→17:33)
--- NOTE | 2017-05-23 13:50 | CP.PCM.PN ---
Subjective - Date & Time of Evaluation Date of Evaluation: 05/23/17 Time of Evaluation: 08:20 - Subjective Subjective: clinically same Objective - Vital Signs/Intake and Output Vital Signs (last 24 hours): Temp Pulse Resp BP Pulse Ox 97.6 F 90 20 109/65 97 05/23/17 07:59 05/23/17 07:59 05/23/17 07:59 05/23/17 10:18 05/23/17 07:59 Intake and Output: 05/23/17 05/23/17 06:59 18:59 Intake Total 1550 Output Total 1500 Balance 50 - Medications Medications: Current Medications Albuterol/Ipratropium (Duoneb 3 Mg/0.5 Mg (3 Ml) Ud) 3 ml INH RQ6 [facility] Last Admin: 05/11/17 07:38 Dose: 3 ml Apixaban (Eliquis) 5 mg PO BID [facility] Last Admin: 05/23/17 10:19 Dose: 5 mg Aspirin (Ecotrin) 81 mg PO DAILY [facility] Last Admin: 05/23/17 10:18 Dose: 81 mg Clonazepam (Klonopin) 1 mg PO Q12 [facility] Last Admin: 05/23/17 10:31 Dose: 1 mg Docusate Sodium (Colace) 100 mg PO TID [facility] Last Admin: 05/23/17 13:30 Dose: Not Given Famotidine (Pepcid) 20 mg PO BID [facility] Last Admin: 05/23/17 10:19 Dose: 20 mg Furosemide (Lasix) 40 mg IVP DAILY [facility] Last Admin: 05/23/17 10:18 Dose: 40 mg Gabapentin (Neurontin) 600 mg PO TID [facility] Last Admin: 05/23/17 10:19 Dose: 600 mg Hydromorphone HCl (Dilaudid) 1 mg IVP Q4H PRN PRN Reason: pain Last Admin: 05/23/17 11:09 Dose: 1 mg Piperacillin Sod/Tazobactam Sod (Zosyn 3.375 Gm Iv Premix) 3.375 gm in 50 mls @ 100 mls/hr IVPB Q6H [facility] Last Admin: 05/23/17 12:11 Dose: 100 mls/hr Methylprednisolone (Solu-Medrol) 20 mg IVP DAILY [facility] Last Admin: 05/23/17 10:18 Dose: 20 mg Potassium Chloride (K-Dur 20 Meq Er Tab) 20 meq PO DAILY [facility] Last Admin: 05/23/17 10:19 Dose: 20 meq Ranolazine (Ranexa) 500 mg PO BID [facility] Last Admin: 05/23/17 10:19 Dose: 500 mg Rosuvastatin Calcium (Crestor) 20 mg PO HS [facility] Last Admin: 05/22/17 21:02 Dose: 20 mg Tiotropium [place] (Spiriva) 18 mcg INH RQ24 [facility] Last Admin: 05/23/17 07:30 Dose: 18 mcg - Labs Labs: 05/20/17 10:06 05/20/17 10:06 PT 12.4 SECONDS (9.7-12.2) H 05/05/17 06:40 INR 1.1 05/05/17 06:40 APTT 27 SECONDS (21-34) 05/04/17 06:35 - Constitutional Appears: Well - Head Exam Head Exam: ATRAUMATIC, NORMAL INSPECTION, NORMOCEPHALIC - Eye Exam Eye Exam: EOMI, Normal appearance, PERRL - ENT Exam ENT Exam: Mucous Membranes Moist, Normal Exam - Neck Exam Neck Exam: Full ROM, Normal Inspection. absent: Lymphadenopathy - Respiratory Exam Respiratory Exam: Decreased Breath Sounds - Cardiovascular Exam Cardiovascular Exam: REGULAR RHYTHM, +S1, +S2. absent: Murmur - GI/Abdominal Exam GI & Abdominal Exam: Diminished Bowel Sounds - Rectal Exam Rectal Exam: Deferred Assessment and Plan (1) Anemia Status: Acute (2) Dehydration Status: Acute (3) Guillain Tesfaye syndrome Status: Acute (4) Hypotension Status: Acute (5) Monoclonal gammopathy Status: Acute (6) Sepsis Status: Acute (7) Morbidly obese Status: Chronic (8) Altered mental status Status: Acute (9) Anxiety Status: Acute (10) Cellulitis Status: Acute (11) Chronic pain Status: Acute (12) Fall Status: Acute (13) History of benzodiazepine use Status: Acute (14) Leukocytosis Status: Acute (15) Opiate use Status: Acute (16) Prophylactic measure Status: Acute (17) Rhabdomyolysis Status: Acute (18) Sacral wound Status: Acute (19) Weakness Status: Acute (20) COPD (chronic obstructive pulmonary disease) Status: Chronic (21) HTN (hypertension) Status: Chronic (22) OPHELIA (obstructive sleep apnea) Status: Chronic (23) Spinal stenosis Status: Chronic
--- NOTE | 2017-05-23 15:39 | CP.PCM.PN ---
Subjective - Date & Time of Evaluation Date of Evaluation: 05/23/17 Time of Evaluation: 07:00 - Subjective Subjective: iv rx in progress still not ambulatory Objective - Vital Signs/Intake and Output Vital Signs (last 24 hours): Temp Pulse Resp BP Pulse Ox 97.6 F 90 20 109/65 97 05/23/17 07:59 05/23/17 07:59 05/23/17 07:59 05/23/17 10:18 05/23/17 07:59 Intake and Output: 05/23/17 05/23/17 06:59 18:59 Intake Total 1550 Output Total 1500 Balance 50 - Medications Medications: Current Medications Albuterol/Ipratropium (Duoneb 3 Mg/0.5 Mg (3 Ml) Ud) 3 ml INH RQ6 [facility] Last Admin: 05/11/17 07:38 Dose: 3 ml Apixaban (Eliquis) 5 mg PO BID [facility] Last Admin: 05/23/17 10:19 Dose: 5 mg Aspirin (Ecotrin) 81 mg PO DAILY [facility] Last Admin: 05/23/17 10:18 Dose: 81 mg Clonazepam (Klonopin) 1 mg PO Q12 [facility] Last Admin: 05/23/17 10:31 Dose: 1 mg Docusate Sodium (Colace) 100 mg PO TID [facility] Last Admin: 05/23/17 13:30 Dose: Not Given Famotidine (Pepcid) 20 mg PO BID [facility] Last Admin: 05/23/17 10:19 Dose: 20 mg Furosemide (Lasix) 40 mg IVP DAILY [facility] Last Admin: 05/23/17 10:18 Dose: 40 mg Gabapentin (Neurontin) 600 mg PO TID [facility] Last Admin: 05/23/17 14:02 Dose: 600 mg Hydromorphone HCl (Dilaudid) 1 mg IVP Q4H PRN PRN Reason: pain Last Admin: 05/23/17 15:18 Dose: 1 mg Piperacillin Sod/Tazobactam Sod (Zosyn 3.375 Gm Iv Premix) 3.375 gm in 50 mls @ 100 mls/hr IVPB Q6H [facility] Last Admin: 05/23/17 12:11 Dose: 100 mls/hr Methylprednisolone (Solu-Medrol) 20 mg IVP DAILY [facility] Last Admin: 05/23/17 10:18 Dose: 20 mg Potassium Chloride (K-Dur 20 Meq Er Tab) 20 meq PO DAILY [facility] Last Admin: 05/23/17 10:19 Dose: 20 meq Ranolazine (Ranexa) 500 mg PO BID [facility] Last Admin: 05/23/17 10:19 Dose: 500 mg Rosuvastatin Calcium (Crestor) 20 mg PO HS [facility] Last Admin: 05/22/17 21:02 Dose: 20 mg Tiotropium [place] (Spiriva) 18 mcg INH RQ24 [facility] Last Admin: 05/23/17 07:30 Dose: 18 mcg - Labs Labs: 05/20/17 10:06 05/20/17 10:06 PT 12.4 SECONDS (9.7-12.2) H 05/05/17 06:40 INR 1.1 05/05/17 06:40 APTT 27 SECONDS (21-34) 05/04/17 06:35 - Constitutional Appears: Non-toxic, Chronically Ill - Head Exam Head Exam: NORMOCEPHALIC - Eye Exam Eye Exam: Normal appearance, PERRL - ENT Exam ENT Exam: Mucous Membranes Dry - Neck Exam Neck Exam: absent: Lymphadenopathy - Respiratory Exam Respiratory Exam: Decreased Breath Sounds - Cardiovascular Exam Cardiovascular Exam: REGULAR RHYTHM - GI/Abdominal Exam GI & Abdominal Exam: Distended, Soft - Rectal Exam Rectal Exam: Deferred - Exam Exam: NORMAL INSPECTION - Extremities Exam Extremities Exam: absent: Pedal Edema - Back Exam Back Exam: absent: CVA tenderness (L), CVA tenderness (R) - Neurological Exam Neurological Exam: Alert, Awake, Oriented x3 Assessment and Plan (1) Dehydration Status: Acute (2) Hypotension Status: Acute (3) Sepsis Status: Acute (4) Morbidly obese Status: Chronic (5) Altered mental status Status: Acute (6) Anxiety Status: Acute (7) Cellulitis Status: Acute (8) Chronic pain Status: Acute (9) Weakness Status: Acute (10) COPD (chronic obstructive pulmonary disease) Status: Chronic (11) HTN (hypertension) Status: Chronic (12) OPHELIA (obstructive sleep apnea) Status: Chronic (13) Spinal stenosis Status: Chronic - Assessment and Plan (Free Text) Assessment: cont rx OM sacrum
[2017-05-24] MEDS: HYDROmorphone 1 mg/ml ISec IVP PRN ×6 (00:02→23:55)
[2017-05-24] MEDS: Piperacill/Tazo 3.375gm in Dex 3.375 GM/50 ML BAG IVPB SCH ×4 (00:03→19:03)
[2017-05-24] MEDS: Tiotropium 18 mcg Cap For Inhalation INH SCH (07:20)
[2017-05-24] MEDS: Potassium Chloride 20 mEq ER Tab PO SCH (09:39)
[2017-05-24] MEDS: MethylPREDNISolone 40 mg Vial IVP SCH (09:40)
[2017-05-24] MEDS: Ranolazine 500 mg Extended Release Tablets PO SCH ×2 (09:41→17:06)
--- NOTE | 2017-05-24 18:21 | CP.PCM.PN ---
Subjective - Date & Time of Evaluation Date of Evaluation: 05/24/17 Time of Evaluation: 07:20 - Subjective Subjective: clinically same Objective - Vital Signs/Intake and Output Vital Signs (last 24 hours): Temp Pulse Resp BP Pulse Ox 97.9 F 89 20 108/67 96 05/24/17 15:00 05/24/17 15:00 05/24/17 15:00 05/24/17 15:00 05/24/17 15:00 Intake and Output: 05/24/17 05/24/17 06:59 18:59 Intake Total 690 550 Output Total 800 900 Balance -110 -350 - Medications Medications: Current Medications Albuterol/Ipratropium (Duoneb 3 Mg/0.5 Mg (3 Ml) Ud) 3 ml INH RQ6 [facility] Last Admin: 05/11/17 07:38 Dose: 3 ml Apixaban (Eliquis) 5 mg PO BID [facility] Last Admin: 05/24/17 17:06 Dose: 5 mg Aspirin (Ecotrin) 81 mg PO DAILY [facility] Last Admin: 05/24/17 09:39 Dose: 81 mg Clonazepam (Klonopin) 1 mg PO Q12 [facility] Last Admin: 05/24/17 09:38 Dose: 1 mg Docusate Sodium (Colace) 100 mg PO TID [facility] Last Admin: 05/24/17 17:06 Dose: 100 mg Famotidine (Pepcid) 20 mg PO BID [facility] Last Admin: 05/24/17 17:06 Dose: 20 mg Furosemide (Lasix) 40 mg IVP DAILY [facility] Gabapentin (Neurontin) 600 mg PO TID [facility] Last Admin: 05/24/17 17:06 Dose: 600 mg Hydromorphone HCl (Dilaudid) 1 mg IVP Q4H PRN PRN Reason: pain Last Admin: 05/24/17 18:00 Dose: 1 mg Piperacillin Sod/Tazobactam Sod (Zosyn 3.375 Gm Iv Premix) 3.375 gm in 50 mls @ 100 mls/hr IVPB Q6H [facility] Last Admin: 05/24/17 13:59 Dose: 100 mls/hr Methylprednisolone (Solu-Medrol) 20 mg IVP DAILY [facility] Last Admin: 05/24/17 09:40 Dose: 20 mg Potassium Chloride (K-Dur 20 Meq Er Tab) 20 meq PO DAILY [facility] Last Admin: 05/24/17 09:39 Dose: 20 meq Ranolazine (Ranexa) 500 mg PO BID [facility] Last Admin: 05/24/17 17:06 Dose: 500 mg Rosuvastatin Calcium (Crestor) 20 mg PO HS [facility] Last Admin: 05/23/17 22:45 Dose: 20 mg Tiotropium [place] (Spiriva) 18 mcg INH RQ24 [facility] Last Admin: 05/24/17 07:20 Dose: Not Given - Labs Labs: 05/20/17 10:06 05/20/17 10:06 PT 12.4 SECONDS (9.7-12.2) H 05/05/17 06:40 INR 1.1 05/05/17 06:40 APTT 27 SECONDS (21-34) 05/04/17 06:35 - Constitutional Appears: Well - Head Exam Head Exam: ATRAUMATIC, NORMAL INSPECTION, NORMOCEPHALIC - Eye Exam Eye Exam: EOMI, Normal appearance, PERRL Pupil Exam: NORMAL ACCOMODATION, PERRL - ENT Exam ENT Exam: Mucous Membranes Moist, Normal Exam - Neck Exam Neck Exam: Full ROM, Normal Inspection. absent: Lymphadenopathy - Respiratory Exam Respiratory Exam: Decreased Breath Sounds - Cardiovascular Exam Cardiovascular Exam: REGULAR RHYTHM, +S1, +S2 - GI/Abdominal Exam GI & Abdominal Exam: Soft, Diminished Bowel Sounds - Rectal Exam Rectal Exam: Deferred Assessment and Plan (1) Anemia Status: Acute (2) Dehydration Status: Acute (3) Guillain Tesfaye syndrome Status: Acute (4) Hypotension Status: Acute (5) Monoclonal gammopathy Status: Acute (6) Sepsis Status: Acute (7) Morbidly obese Status: Chronic (8) Altered mental status Status: Acute (9) Anxiety Status: Acute (10) Cellulitis Status: Acute (11) Chronic pain Status: Acute (12) Fall Status: Acute (13) History of benzodiazepine use Status: Acute (14) Leukocytosis Status: Acute (15) Opiate use Status: Acute (16) Prophylactic measure Status: Acute (17) Rhabdomyolysis Status: Acute (18) Sacral wound Status: Acute (19) Weakness Status: Acute (20) COPD (chronic obstructive pulmonary disease) Status: Chronic (21) HTN (hypertension) Status: Chronic (22) OPHELIA (obstructive sleep apnea) Status: Chronic (23) Spinal stenosis Status: Chronic
[2017-05-25] MEDS: HYDROmorphone 1 mg/ml ISec IVP PRN ×4 (05:30→18:51)
[2017-05-25] MEDS: Piperacill/Tazo 3.375gm in Dex 3.375 GM/50 ML BAG IVPB SCH ×4 (06:20→18:55)
[2017-05-25] MEDS: Tiotropium 18 mcg Cap For Inhalation INH SCH (07:14)
[2017-05-25] MEDS: Potassium Chloride 20 mEq ER Tab PO SCH (10:02)
[2017-05-25] MEDS: MethylPREDNISolone 40 mg Vial IVP SCH (10:03)
[2017-05-25] MEDS: Ranolazine 500 mg Extended Release Tablets PO SCH ×2 (10:06→18:06)
--- NOTE | 2017-05-25 14:21 | CP.PCM.PN ---
Subjective - Date & Time of Evaluation Date of Evaluation: 05/25/17 Time of Evaluation: 07:20 - Subjective Subjective: clinically same Objective - Vital Signs/Intake and Output Vital Signs (last 24 hours): Temp Pulse Resp BP Pulse Ox 97.9 F 92 H 20 101/70 96 05/25/17 07:37 05/25/17 07:37 05/25/17 07:37 05/25/17 10:03 05/25/17 07:37 Intake and Output: 05/25/17 05/25/17 06:59 18:59 Intake Total 350 Output Total 400 600 Balance -50 -600 - Medications Medications: Current Medications Albuterol/Ipratropium (Duoneb 3 Mg/0.5 Mg (3 Ml) Ud) 3 ml INH RQ6 [facility] Last Admin: 05/11/17 07:38 Dose: 3 ml Apixaban (Eliquis) 5 mg PO BID [facility] Last Admin: 05/25/17 10:06 Dose: 5 mg Aspirin (Ecotrin) 81 mg PO DAILY [facility] Last Admin: 05/25/17 10:02 Dose: 81 mg Clonazepam (Klonopin) 1 mg PO Q12 [facility] Last Admin: 05/25/17 10:02 Dose: 1 mg Docusate Sodium (Colace) 100 mg PO TID [facility] Last Admin: 05/25/17 10:06 Dose: Not Given Famotidine (Pepcid) 20 mg PO BID [facility] Last Admin: 05/25/17 10:02 Dose: 20 mg Furosemide (Lasix) 40 mg IVP DAILY [facility] Last Admin: 05/25/17 10:03 Dose: 40 mg Gabapentin (Neurontin) 600 mg PO TID [facility] Last Admin: 05/25/17 10:02 Dose: 600 mg Hydromorphone HCl (Dilaudid) 1 mg IVP Q4H PRN PRN Reason: pain Last Admin: 05/25/17 14:16 Dose: 1 mg Piperacillin Sod/Tazobactam Sod (Zosyn 3.375 Gm Iv Premix) 3.375 gm in 50 mls @ 100 mls/hr IVPB Q6H [facility] Last Admin: 05/25/17 14:11 Dose: 100 mls/hr Methylprednisolone (Solu-Medrol) 20 mg IVP DAILY [facility] Last Admin: 05/25/17 10:03 Dose: 20 mg Potassium Chloride (K-Dur 20 Meq Er Tab) 20 meq PO DAILY [facility] Last Admin: 05/25/17 10:02 Dose: 20 meq Ranolazine (Ranexa) 500 mg PO BID [facility] Last Admin: 05/25/17 10:06 Dose: 500 mg Rosuvastatin Calcium (Crestor) 20 mg PO HS [facility] Last Admin: 05/24/17 21:15 Dose: 20 mg Tiotropium [place] (Spiriva) 18 mcg INH RQ24 [facility] Last Admin: 05/25/17 07:14 Dose: Not Given - Labs Labs: 05/20/17 10:06 05/20/17 10:06 PT 12.4 SECONDS (9.7-12.2) H 05/05/17 06:40 INR 1.1 05/05/17 06:40 APTT 27 SECONDS (21-34) 05/04/17 06:35 - Constitutional Appears: Well - Head Exam Head Exam: ATRAUMATIC, NORMAL INSPECTION, NORMOCEPHALIC - Eye Exam Eye Exam: EOMI, Normal appearance, PERRL Pupil Exam: NORMAL ACCOMODATION, PERRL - ENT Exam ENT Exam: Mucous Membranes Moist, Normal Exam - Neck Exam Neck Exam: Full ROM, Normal Inspection. absent: Lymphadenopathy - Respiratory Exam Respiratory Exam: Decreased Breath Sounds - Cardiovascular Exam Cardiovascular Exam: REGULAR RHYTHM, +S1, +S2 - GI/Abdominal Exam GI & Abdominal Exam: Soft, Diminished Bowel Sounds - Rectal Exam Rectal Exam: Deferred Assessment and Plan (1) Anemia Status: Acute (2) Dehydration Status: Acute (3) Guillain Tesfaye syndrome Status: Acute (4) Hypotension Status: Acute (5) Monoclonal gammopathy Status: Acute (6) Sepsis Status: Acute (7) Morbidly obese Status: Chronic (8) Altered mental status Status: Acute (9) Anxiety Status: Acute (10) Cellulitis Status: Acute (11) Chronic pain Status: Acute (12) Fall Status: Acute (13) History of benzodiazepine use Status: Acute (14) Leukocytosis Status: Acute (15) Opiate use Status: Acute (16) Prophylactic measure Status: Acute (17) Rhabdomyolysis Status: Acute (18) Sacral wound Status: Acute (19) Weakness Status: Acute (20) COPD (chronic obstructive pulmonary disease) Status: Chronic (21) HTN (hypertension) Status: Chronic (22) OPHELIA (obstructive sleep apnea) Status: Chronic (23) Spinal stenosis Status: Chronic
[2017-05-26] MEDS: Piperacill/Tazo 3.375gm in Dex 3.375 GM/50 ML BAG IVPB SCH ×4 (01:19→19:46)
[2017-05-26] MEDS: HYDROmorphone 1 mg/ml ISec IVP PRN ×5 (05:07→23:42)
[2017-05-26] MEDS: Tiotropium 18 mcg Cap For Inhalation INH SCH (07:06)
[2017-05-26] MEDS: Potassium Chloride 20 mEq ER Tab PO SCH (10:32)
[2017-05-26] MEDS: MethylPREDNISolone 40 mg Vial IVP SCH (10:32)
[2017-05-26] MEDS: Ranolazine 500 mg Extended Release Tablets PO SCH ×2 (10:32→18:51)
[2017-05-26 13:03] LABS: BASO # 0.1 K/uL (0.0-0.2); BASO % 0.3 % (0.0-2.0); EOS # 0.6 K/uL (0.0-0.7); EOS % 2.5 % (0.0-4.0); HEMATOCRIT 29.2 % (34.0-47.0); LYMPH # 1.8 K/uL (1.0-4.3); LYMPH % 7.7 % (20.0-40.0); MEAN CELL VOLUME 86.7 fL (81.0-99.0); MEAN CORPUSCULAR HEMOGLOBIN 28.2 pg (27.0-31.0); MEAN CORPUSCULAR HGB CONC 32.6 g/dL (33.0-37.0); MONO # 1.2 K/uL (0.0-0.8); MONO % 5.3 % (0.0-10.0); NRBC % 0.1 % (0.0-2.0); PLATELET COUNT 305 K/uL (130-400); RED CELL DISTRIBUTION WIDTH 19.9 % (11.5-14.5); WHITE BLOOD COUNT 22.9 K/uL (4.8-10.8)
[2017-05-26 13:29] LABS: ALB/GLOB RATIO 0.7 (1.0-2.1); ALKALINE PHOSPHATASE 92 U/L (38-126); ALT/SGPT 26 U/L (9-52); AST/SGOT 31 U/L (14-36); BILIRUBIN,TOTAL 1.1 mg/dL (0.2-1.3); BLOOD UREA NITROGEN 28 mg/dL (7-17); CALCIUM 9.7 mg/dl (8.6-10.4); CARBON DIOXIDE 36 mmol/L (22-30); CHLORIDE 89 mmol/L (98-107); GFR AFRICAN-AMERICAN > 60; GLUCOSE,RANDOM 127 mg/dL (65-105); SODIUM 139 mmol/L (132-148); TOTAL PROTEIN 8.3 g/dL (6.3-8.3)
[2017-05-26 13:44] LABS: EOSINOPHIL 1 % (0-4); NEUTROPHIL 89 % (50-75); TOTAL CELLS COUNTED 100
[2017-05-26] MEDS ORDERED: Potassium Chloride 20 mEq ER Tab PO ONE ×2 (16:00→18:45)
--- NOTE | 2017-05-26 16:25 | CP.PCM.PN ---
Subjective - Date & Time of Evaluation Date of Evaluation: 05/26/17 Time of Evaluation: 07:00 - Subjective Subjective: for or on wednesday iv rx in progress has osteomyelitis of sacrum Objective - Vital Signs/Intake and Output Vital Signs (last 24 hours): Temp Pulse Resp BP Pulse Ox 97.8 F 93 H 20 124/84 94 L 05/26/17 08:00 05/26/17 08:00 05/26/17 08:00 05/26/17 10:34 05/26/17 08:00 Intake and Output: 05/26/17 05/26/17 06:59 18:59 Intake Total 350 690 Output Total 300 Balance 350 390 - Medications Medications: Current Medications Apixaban (Eliquis) 5 mg PO BID [facility] Last Admin: 05/26/17 10:32 Dose: 5 mg Aspirin (Ecotrin) 81 mg PO DAILY [facility] Last Admin: 05/26/17 10:32 Dose: 81 mg Clonazepam (Klonopin) 1 mg PO Q12 [facility] Last Admin: 05/26/17 10:32 Dose: 1 mg Docusate Sodium (Colace) 100 mg PO TID [facility] Last Admin: 05/26/17 14:01 Dose: 100 mg Famotidine (Pepcid) 20 mg PO BID [facility] Last Admin: 05/26/17 10:32 Dose: 20 mg Fluconazole (Diflucan) 100 mg PO DAILY [facility] Furosemide (Lasix) 40 mg IVP DAILY [facility] Last Admin: 05/26/17 10:34 Dose: 40 mg Gabapentin (Neurontin) 600 mg PO TID [facility] Last Admin: 05/26/17 14:01 Dose: 600 mg Hydromorphone HCl (Dilaudid) 1 mg IVP Q4H PRN PRN Reason: pain Last Admin: 05/26/17 14:42 Dose: 1 mg Piperacillin Sod/Tazobactam Sod (Zosyn 3.375 Gm Iv Premix) 3.375 gm in 50 mls @ 100 mls/hr IVPB Q6H [facility] Last Admin: 05/26/17 13:00 Dose: 100 mls/hr Potassium Chloride (K-Dur 20 Meq Er Tab) 20 meq PO DAILY [facility] Last Admin: 05/26/17 10:32 Dose: 20 meq Ranolazine (Ranexa) 500 mg PO BID [facility] Last Admin: 05/26/17 10:32 Dose: 500 mg Rosuvastatin Calcium (Crestor) 20 mg PO HS [facility] Last Admin: 05/25/17 21:46 Dose: 20 mg Tiotropium [place] (Spiriva) 18 mcg INH RQ24 [facility] Last Admin: 05/26/17 07:06 Dose: Not Given - Labs Labs: 05/26/17 12:57 05/26/17 12:57 PT 12.4 SECONDS (9.7-12.2) H 05/05/17 06:40 INR 1.1 05/05/17 06:40 APTT 27 SECONDS (21-34) 05/04/17 06:35 - Constitutional Appears: Non-toxic, Chronically Ill - Head Exam Head Exam: NORMOCEPHALIC - Eye Exam Eye Exam: Normal appearance - ENT Exam ENT Exam: Mucous Membranes Dry - Neck Exam Neck Exam: absent: Lymphadenopathy - Respiratory Exam Respiratory Exam: Decreased Breath Sounds - Cardiovascular Exam Cardiovascular Exam: REGULAR RHYTHM Assessment and Plan (1) Dehydration Status: Acute (2) Hypotension Status: Acute (3) Sepsis Status: Acute (4) Morbidly obese Status: Chronic (5) Altered mental status Status: Acute (6) Anxiety Status: Acute (7) Cellulitis Status: Acute (8) Chronic pain Status: Acute (9) Weakness Status: Acute (10) COPD (chronic obstructive pulmonary disease) Status: Chronic (11) HTN (hypertension) Status: Chronic (12) OPHELIA (obstructive sleep apnea) Status: Chronic (13) Spinal stenosis Status: Chronic
--- NOTE | 2017-05-26 22:00 | CP.PCM.PN ---
Subjective - Date & Time of Evaluation Date of Evaluation: 05/26/17 Time of Evaluation: 07:20 - Subjective Subjective: clinically same Objective - Vital Signs/Intake and Output Vital Signs (last 24 hours): Temp Pulse Resp BP Pulse Ox 98.2 F 90 20 108/65 97 05/26/17 15:00 05/26/17 15:00 05/26/17 15:00 05/26/17 15:00 05/26/17 15:00 Intake and Output: 05/26/17 05/27/17 18:59 06:59 Intake Total 690 Output Total 300 Balance 390 - Medications Medications: Current Medications Apixaban (Eliquis) 5 mg PO BID [facility] Last Admin: 05/26/17 18:51 Dose: 5 mg Aspirin (Ecotrin) 81 mg PO DAILY [facility] Last Admin: 05/26/17 10:32 Dose: 81 mg Clonazepam (Klonopin) 1 mg PO Q12 [facility] Last Admin: 05/26/17 21:13 Dose: 1 mg Docusate Sodium (Colace) 100 mg PO TID [facility] Last Admin: 05/26/17 18:57 Dose: Not Given Famotidine (Pepcid) 20 mg PO BID [facility] Last Admin: 05/26/17 18:51 Dose: 20 mg Fluconazole (Diflucan) 100 mg PO DAILY [facility] Last Admin: 05/26/17 17:00 Dose: 100 mg Furosemide (Lasix) 40 mg IVP DAILY [facility] Last Admin: 05/26/17 10:34 Dose: 40 mg Gabapentin (Neurontin) 600 mg PO TID [facility] Last Admin: 05/26/17 18:51 Dose: 600 mg Hydromorphone HCl (Dilaudid) 1 mg IVP Q4H PRN PRN Reason: pain Last Admin: 05/26/17 19:25 Dose: 1 mg Piperacillin Sod/Tazobactam Sod (Zosyn 3.375 Gm Iv Premix) 3.375 gm in 50 mls @ 100 mls/hr IVPB Q6H [facility] Last Admin: 05/26/17 19:46 Dose: 100 mls/hr Potassium Chloride (K-Dur 20 Meq Er Tab) 20 meq PO DAILY [facility] Last Admin: 05/26/17 10:32 Dose: 20 meq Ranolazine (Ranexa) 500 mg PO BID [facility] Last Admin: 05/26/17 18:51 Dose: 500 mg Rosuvastatin Calcium (Crestor) 20 mg PO HS [facility] Last Admin: 05/26/17 21:13 Dose: 20 mg Tiotropium [place] (Spiriva) 18 mcg INH RQ24 [facility] Last Admin: 05/26/17 07:06 Dose: Not Given - Labs Labs: 05/26/17 12:57 05/26/17 12:57 PT 12.4 SECONDS (9.7-12.2) H 05/05/17 06:40 INR 1.1 05/05/17 06:40 APTT 27 SECONDS (21-34) 05/04/17 06:35 - Constitutional Appears: Well - Head Exam Head Exam: ATRAUMATIC, NORMAL INSPECTION, NORMOCEPHALIC - ENT Exam ENT Exam: Mucous Membranes Moist, Normal Exam - Neck Exam Neck Exam: Full ROM, Normal Inspection. absent: Lymphadenopathy - Respiratory Exam Respiratory Exam: Decreased Breath Sounds - Cardiovascular Exam Cardiovascular Exam: REGULAR RHYTHM, +S1, +S2 - GI/Abdominal Exam GI & Abdominal Exam: Soft, Diminished Bowel Sounds - Rectal Exam Rectal Exam: Deferred Assessment and Plan (1) Anemia Status: Acute (2) Dehydration Status: Acute (3) Guillain Tesfaye syndrome Status: Acute (4) Hypotension Status: Acute (5) Monoclonal gammopathy Status: Acute (6) Sepsis Status: Acute (7) Morbidly obese Status: Chronic (8) Altered mental status Status: Acute (9) Anxiety Status: Acute (10) Cellulitis Status: Acute (11) Chronic pain Status: Acute (12) Fall Status: Acute (13) History of benzodiazepine use Status: Acute (14) Leukocytosis Status: Acute (15) Opiate use Status: Acute (16) Prophylactic measure Status: Acute (17) Rhabdomyolysis Status: Acute (18) Sacral wound Status: Acute (19) Weakness Status: Acute (20) COPD (chronic obstructive pulmonary disease) Status: Chronic (21) HTN (hypertension) Status: Chronic (22) OPHELIA (obstructive sleep apnea) Status: Chronic (23) Spinal stenosis Status: Chronic
[2017-05-27] MEDS: Piperacill/Tazo 3.375gm in Dex 3.375 GM/50 ML BAG IVPB SCH ×4 (01:30→19:57)
[2017-05-27] MEDS: HYDROmorphone 1 mg/ml ISec IVP PRN ×4 (03:48→17:47)
[2017-05-27] MEDS: Tiotropium 18 mcg Cap For Inhalation INH SCH (07:05)
--- NOTE | 2017-05-27 08:43 | CP.PCM.PN ---
Subjective - Date & Time of Evaluation Date of Evaluation: 05/27/17 Time of Evaluation: 07:20 - Subjective Subjective: clinically same Objective - Vital Signs/Intake and Output Vital Signs (last 24 hours): Temp Pulse Resp BP Pulse Ox 97.8 F 97 H 20 111/64 95 05/27/17 00:00 05/27/17 00:00 05/27/17 00:00 05/27/17 00:00 05/27/17 00:00 Intake and Output: 05/27/17 05/27/17 06:59 18:59 Intake Total 850 Output Total 750 Balance 100 - Medications Medications: Current Medications Apixaban (Eliquis) 5 mg PO BID [facility] Last Admin: 05/26/17 18:51 Dose: 5 mg Aspirin (Ecotrin) 81 mg PO DAILY [facility] Last Admin: 05/26/17 10:32 Dose: 81 mg Clonazepam (Klonopin) 1 mg PO Q12 [facility] Last Admin: 05/26/17 21:13 Dose: 1 mg Docusate Sodium (Colace) 100 mg PO TID [facility] Last Admin: 05/26/17 18:57 Dose: Not Given Famotidine (Pepcid) 20 mg PO BID [facility] Last Admin: 05/26/17 18:51 Dose: 20 mg Fluconazole (Diflucan) 100 mg PO DAILY [facility] Last Admin: 05/26/17 17:00 Dose: 100 mg Furosemide (Lasix) 40 mg IVP DAILY [facility] Last Admin: 05/26/17 10:34 Dose: 40 mg Gabapentin (Neurontin) 600 mg PO TID [facility] Last Admin: 05/26/17 18:51 Dose: 600 mg Hydromorphone HCl (Dilaudid) 1 mg IVP Q4H PRN PRN Reason: pain Last Admin: 05/27/17 07:57 Dose: 1 mg Piperacillin Sod/Tazobactam Sod (Zosyn 3.375 Gm Iv Premix) 3.375 gm in 50 mls @ 100 mls/hr IVPB Q6H [facility] Last Admin: 05/27/17 07:05 Dose: 100 mls/hr Potassium Chloride (K-Dur 20 Meq Er Tab) 20 meq PO DAILY [facility] Last Admin: 05/26/17 10:32 Dose: 20 meq Ranolazine (Ranexa) 500 mg PO BID [facility] Last Admin: 05/26/17 18:51 Dose: 500 mg Rosuvastatin Calcium (Crestor) 20 mg PO HS [facility] Last Admin: 05/26/17 21:13 Dose: 20 mg Tiotropium [place] (Spiriva) 18 mcg INH RQ24 [facility] Last Admin: 05/27/17 07:05 Dose: Not Given - Labs Labs: 05/26/17 12:57 05/26/17 12:57 PT 12.4 SECONDS (9.7-12.2) H 05/05/17 06:40 INR 1.1 05/05/17 06:40 APTT 27 SECONDS (21-34) 05/04/17 06:35 - Constitutional Appears: Well - Head Exam Head Exam: ATRAUMATIC, NORMAL INSPECTION, NORMOCEPHALIC - Eye Exam Eye Exam: EOMI, Normal appearance, PERRL Pupil Exam: NORMAL ACCOMODATION, PERRL - ENT Exam ENT Exam: Mucous Membranes Moist, Normal Exam - Neck Exam Neck Exam: Full ROM, Normal Inspection. absent: Lymphadenopathy - Respiratory Exam Respiratory Exam: Decreased Breath Sounds - Cardiovascular Exam Cardiovascular Exam: REGULAR RHYTHM, +S1, +S2 - GI/Abdominal Exam GI & Abdominal Exam: Soft, Diminished Bowel Sounds - Rectal Exam Rectal Exam: Deferred Assessment and Plan (1) Anemia Status: Acute (2) Dehydration Status: Acute (3) Guillain Tesfaye syndrome Status: Acute (4) Hypotension Status: Acute (5) Monoclonal gammopathy Status: Acute (6) Sepsis Status: Acute (7) Morbidly obese Status: Chronic (8) Altered mental status Status: Acute (9) Anxiety Status: Acute (10) Cellulitis Status: Acute (11) Chronic pain Status: Acute (12) Fall Status: Acute (13) History of benzodiazepine use Status: Acute (14) Leukocytosis Status: Acute (15) Opiate use Status: Acute (16) Prophylactic measure Status: Acute (17) Rhabdomyolysis Status: Acute (18) Sacral wound Status: Acute (19) Weakness Status: Acute (20) COPD (chronic obstructive pulmonary disease) Status: Chronic (21) HTN (hypertension) Status: Chronic (22) OPHELIA (obstructive sleep apnea) Status: Chronic (23) Spinal stenosis Status: Chronic - Assessment and Plan (Free Text) Plan: WBCs still high patient is on Eliquis no more hematuria Patient is on Lasix Dressing Patient is insurance refused the patient is to go to the LTAC Patient for subacute placement Discussed with the patient's
[2017-05-27] MEDS: Potassium Chloride 20 mEq ER Tab PO SCH (09:50)
[2017-05-27] MEDS: Ranolazine 500 mg Extended Release Tablets PO SCH ×2 (09:51→17:45)
[2017-05-27] MEDS ORDERED: Lidocaine 1% Inj (20ml) ONE (11:24)
[2017-05-27 11:33] LABS: BASO # 0.1 K/uL (0.0-0.2); BASO % 0.6 % (0.0-2.0); EOS % 4.8 % (0.0-4.0); HEMATOCRIT 28.1 % (34.0-47.0); LYMPH # 4.9 K/uL (1.0-4.3); LYMPH % 24.5 % (20.0-40.0); MEAN CELL VOLUME 87.1 fL (81.0-99.0); MEAN CORPUSCULAR HEMOGLOBIN 28.6 pg (27.0-31.0); MEAN CORPUSCULAR HGB CONC 32.8 g/dL (33.0-37.0); MONO # 1.4 K/uL (0.0-0.8); MONO % 6.9 % (0.0-10.0); NRBC % 0.1 % (0.0-2.0); RED CELL DISTRIBUTION WIDTH 20.1 % (11.5-14.5); WHITE BLOOD COUNT 20.1 K/uL (4.8-10.8)
[2017-05-27 11:41] LABS: CHLORIDE 94 mmol/L (98-107)
[2017-05-27 11:42] LABS: POTASSIUM 4.3 mmol/L (3.6-5.2); SODIUM 140 mmol/L (132-148)
[2017-05-27 11:44] LABS: ALKALINE PHOSPHATASE 68 U/L (38-126); ALT/SGPT 20 U/L (9-52); AST/SGOT 28 U/L (14-36); BILIRUBIN,TOTAL 0.9 mg/dL (0.2-1.3); BLOOD UREA NITROGEN 25 mg/dL (7-17); CARBON DIOXIDE 35 mmol/L (22-30); GFR AFRICAN-AMERICAN > 60; TOTAL PROTEIN 7.6 g/dL (6.3-8.3)
[2017-05-27 11:45] LABS: CALCIUM 9.3 mg/dl (8.6-10.4); GLUCOSE,RANDOM 99 mg/dL (65-105)
[2017-05-27 11:46] LABS: ALB/GLOB RATIO 0.9 (1.0-2.1)
--- NOTE | 2017-05-27 14:41 | CP.PCM.PN ---
<Derick Sparrow - Last Filed: 05/27/17 16:01> Subjective - Date & Time of Evaluation Date of Evaluation: 05/27/17 Time of Evaluation: 14:40 - Subjective Subjective: Progress note. Attending: Dr. Rogers. Pt seen and examined at bedside. No acute distress. No events overnight. No fevers, chills, vomiting, diarrhea. Pt does have some burning in her legs occasionally. Pt for IR procedure today. Objective - Vital Signs/Intake and Output Vital Signs (last 24 hours): Temp Pulse Resp BP Pulse Ox 97.6 F 90 20 107/70 96 05/27/17 08:00 05/27/17 08:00 05/27/17 08:00 05/27/17 09:50 05/27/17 08:00 Intake and Output: 05/27/17 05/27/17 06:59 18:59 Intake Total 850 650 Output Total 750 800 Balance 100 -150 - Medications Medications: Current Medications Apixaban (Eliquis) 5 mg PO BID [facility] Last Admin: 05/27/17 09:50 Dose: 5 mg Aspirin (Ecotrin) 81 mg PO DAILY [facility] Last Admin: 05/27/17 09:50 Dose: 81 mg Clonazepam (Klonopin) 1 mg PO Q12 [facility] Last Admin: 05/27/17 09:50 Dose: 1 mg Docusate Sodium (Colace) 100 mg PO TID [facility] Last Admin: 05/27/17 09:49 Dose: Not Given Famotidine (Pepcid) 20 mg PO BID [facility] Last Admin: 05/27/17 09:51 Dose: 20 mg Fluconazole (Diflucan) 100 mg PO DAILY [facility] Last Admin: 05/27/17 09:49 Dose: 100 mg Furosemide (Lasix) 40 mg IVP DAILY [facility] Last Admin: 05/27/17 09:50 Dose: 40 mg Gabapentin (Neurontin) 600 mg PO TID [facility] Last Admin: 05/27/17 13:34 Dose: 600 mg Hydromorphone HCl (Dilaudid) 1 mg IVP Q4H PRN PRN Reason: pain Last Admin: 05/27/17 13:29 Dose: 1 mg Piperacillin Sod/Tazobactam Sod (Zosyn 3.375 Gm Iv Premix) 3.375 gm in 50 mls @ 100 mls/hr IVPB Q6H [facility] Last Admin: 05/27/17 13:32 Dose: 100 mls/hr Potassium Chloride (K-Dur 20 Meq Er Tab) 20 meq PO DAILY [facility] Last Admin: 05/27/17 09:50 Dose: 20 meq Ranolazine (Ranexa) 500 mg PO BID [facility] Last Admin: 05/27/17 09:51 Dose: 500 mg Rosuvastatin Calcium (Crestor) 20 mg PO HS [facility] Last Admin: 05/26/17 21:13 Dose: 20 mg Tiotropium [place] (Spiriva) 18 mcg INH RQ24 [facility] Last Admin: 05/27/17 07:05 Dose: Not Given - Labs Labs: 05/27/17 11:19 05/27/17 11:19 PT 12.4 SECONDS (9.7-12.2) H 05/05/17 06:40 INR 1.1 05/05/17 06:40 APTT 27 SECONDS (21-34) 05/04/17 06:35 - Constitutional Appears: No Acute Distress, Chronically Ill - Head Exam Head Exam: ATRAUMATIC, NORMAL INSPECTION, NORMOCEPHALIC - Eye Exam Eye Exam: EOMI - ENT Exam ENT Exam: Mucous Membranes Moist - Neck Exam Neck Exam: Full ROM, Normal Inspection - Respiratory Exam Respiratory Exam: NORMAL BREATHING PATTERN. absent: Respiratory Distress - Cardiovascular Exam Cardiovascular Exam: +S1, +S2 - GI/Abdominal Exam GI & Abdominal Exam: Soft, Normal Bowel Sounds. absent: Tenderness - Extremities Exam Extremities Exam: Full ROM - Neurological Exam Neurological Exam: Alert, Awake, Oriented x3 - Psychiatric Exam Psychiatric exam: Flat Affect - Skin Skin Exam: Dry, Intact, Normal Color, Warm Assessment and Plan - Assessment and Plan (Free Text) Assessment: This is a 60 year old female with history of anxiety, depression, chronic back pain, possible obstructive sleep apnea, COPD, was brought in by the family members because of altered mental status. Patient is s/p septic shock. Patient has sacral wound, likely cause of sepsis. Patient is s/p I/D of sacral wound. Wound vac in place. Wound culture came back positive for proteus mirabilis, group c strep. Patient has new onset of a-fib, started cardizem drip on . Patient was in respiratory distress on 05/06/17 and intubated. 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 Patient had second (out of 5 total) plasmapheresis on 05/10/17. Patient was extubated on 05/11/17. Patient had 3rd plasma exchange on 05/12/17. Plasmapheresis as well on 05/14/17. 1. S/P septic shock -s/p urosepsis -ID consulted. Dr. Ornelas. recs appreciated. -fluconazole 100 PO daily -zosyn 3.375 q 6hrs -lasix 40 IV daily -dilaudid 1 q 4 prn 2. S/P DVT -eliquis 5 BID 3. hx of heart disease -continue ranexa 500 PO BID -asa 81 mg daily 4. hx of anxiety -klonopin PO q 12 -gabapentin 600 PO TID 5. hx of HLD - crestor 20 PO HS 6. Constipation -continue colace 7. hx of hypokalemia -K Dur 20 daily 8. GI/DVT ppx - pepcid -eliquis discussed with Dr. Rogers <Lacie Rogers S - Last Filed: 05/28/17 00:35> Objective - Vital Signs/Intake and Output Vital Signs (last 24 hours): Temp Pulse Resp BP Pulse Ox 97.6 F 94 H 20 116/78 94 L 05/28/17 00:00 05/28/17 00:00 05/28/17 00:00 05/28/17 00:00 05/28/17 00:00 Intake and Output: 05/27/17 05/28/17 18:59 06:59 Intake Total 650 410 Output Total 800 850 Balance -150 -440 - Medications Medications: Current Medications Apixaban (Eliquis) 5 mg PO BID [facility] Last Admin: 05/27/17 17:45 Dose: 5 mg Aspirin (Ecotrin) 81 mg PO DAILY [facility] Last Admin: 05/27/17 09:50 Dose: 81 mg Clonazepam (Klonopin) 1 mg PO Q12 [facility] Last Admin: 05/27/17 22:41 Dose: Not Given Docusate Sodium (Colace) 100 mg PO TID [facility] Last Admin: 05/27/17 17:45 Dose: Not Given Famotidine (Pepcid) 20 mg PO BID [facility] Last Admin: 09/07/17 17:45 Dose: 20 mg Fluconazole (Diflucan) 100 mg PO DAILY [facility] Last Admin: 05/27/17 09:49 Dose: 100 mg Furosemide (Lasix) 40 mg IVP DAILY [facility] Last Admin: 05/27/17 09:50 Dose: 40 mg Gabapentin (Neurontin) 600 mg PO TID [facility] Last Admin: 05/27/17 17:45 Dose: 600 mg Hydromorphone HCl (Dilaudid) 1 mg IVP Q4H PRN PRN Reason: pain Last Admin: 05/27/17 17:47 Dose: 1 mg Piperacillin Sod/Tazobactam Sod (Zosyn 3.375 Gm Iv Premix) 3.375 gm in 50 mls @ 100 mls/hr IVPB Q6H [facility] Last Admin: 05/27/17 19:57 Dose: 100 mls/hr Potassium Chloride (K-Dur 20 Meq Er Tab) 20 meq PO DAILY [facility] Last Admin: 05/27/17 09:50 Dose: 20 meq Ranolazine (Ranexa) 500 mg PO BID [facility] Last Admin: 05/27/17 17:45 Dose: 500 mg Rosuvastatin Calcium (Crestor) 20 mg PO HS [facility] Last Admin: 05/27/17 22:41 Dose: Not Given Tiotropium [place] (Spiriva) 18 mcg INH RQ24 [facility] Last Admin: 05/27/17 07:05 Dose: Not Given - Labs Labs: 05/27/17 11:19 05/27/17 11:19 PT 12.4 SECONDS (9.7-12.2) H 05/05/17 06:40 INR 1.1 05/05/17 06:40 APTT 27 SECONDS (21-34) 05/04/17 06:35 Assessment and Plan (1) Anemia Status: Acute (2) Dehydration Status: Acute (3) Guillain Tesfaye syndrome Status: Acute (4) Hypotension Status: Acute (5) Monoclonal gammopathy Status: Acute (6) Sepsis Status: Acute (7) Morbidly obese Status: Chronic (8) Altered mental status Status: Acute (9) Anxiety Status: Acute (10) Cellulitis Status: Acute (11) Chronic pain Status: Acute (12) Fall Status: Acute (13) History of benzodiazepine use Status: Acute (14) Leukocytosis Status: Acute (15) Opiate use Status: Acute (16) Prophylactic measure Status: Acute (17) Rhabdomyolysis Status: Acute (18) Sacral wound Status: Acute (19) Weakness Status: Acute (20) COPD (chronic obstructive pulmonary disease) Status: Chronic (21) HTN (hypertension) Status: Chronic (22) OPHELIA (obstructive sleep apnea) Status: Chronic (23) Spinal stenosis Status: Chronic Attending/Attestation - Attestation I have personally seen and examined this patient.: Yes I have fully participated in the care of the patient.: Yes I have reviewed all pertinent clinical information, including history, physical exam and plan: Yes Notes (Text): Is seen and discussed with the staff no vomiting no diarrhea patient's for subacute placement on [facility] liquids and other medical
[2017-05-28] MEDS: Piperacill/Tazo 3.375gm in Dex 3.375 GM/50 ML BAG IVPB SCH ×5 (01:01→18:37)
[2017-05-28] MEDS: HYDROmorphone 1 mg/ml ISec IVP PRN (05:31)
[2017-05-28 07:22] LABS: BASO # 0.1 K/uL (0.0-0.2); BASO % 0.7 % (0.0-2.0); EOS # 1.3 K/uL (0.0-0.7); EOS % 7.1 % (0.0-4.0); HEMATOCRIT 28.8 % (34.0-47.0); LYMPH # 3.6 K/uL (1.0-4.3); LYMPH % 19.9 % (20.0-40.0); MEAN CELL VOLUME 88.1 fL (81.0-99.0); MEAN CORPUSCULAR HEMOGLOBIN 28.9 pg (27.0-31.0); MEAN CORPUSCULAR HGB CONC 32.8 g/dL (33.0-37.0); MEAN PLATELET VOLUME 8.2 fL (7.2-11.7); MONO # 1.2 K/uL (0.0-0.8); MONO % 6.8 % (0.0-10.0); NRBC % 0.1 % (0.0-2.0); RED CELL DISTRIBUTION WIDTH 20.1 % (11.5-14.5)
[2017-05-28] MEDS: Tiotropium 18 mcg Cap For Inhalation INH SCH (07:31)
[2017-05-28 07:33] LABS: CHLORIDE 94 mmol/L (98-107)
[2017-05-28 07:34] LABS: POTASSIUM 4.2 mmol/L (3.6-5.2); SODIUM 139 mmol/L (132-148)
[2017-05-28 07:36] LABS: BILIRUBIN,TOTAL 1.1 mg/dL (0.2-1.3); CARBON DIOXIDE 34 mmol/L (22-30); GFR AFRICAN-AMERICAN > 60
[2017-05-28 07:37] LABS: ALB/GLOB RATIO 0.8 (1.0-2.1); ALKALINE PHOSPHATASE 78 U/L (38-126); ALT/SGPT 26 U/L (9-52); AST/SGOT 31 U/L (14-36); BLOOD UREA NITROGEN 24 mg/dL (7-17); CALCIUM 9.4 mg/dl (8.6-10.4); GLUCOSE,RANDOM 75 mg/dL (65-105); TOTAL PROTEIN 7.6 g/dL (6.3-8.3)
--- NOTE | 2017-05-28 09:22 | CP.PCM.PN ---
<Dilip Hollis - Last Filed: 05/28/17 17:56> Subjective - Date & Time of Evaluation Date of Evaluation: 05/28/17 Time of Evaluation: 07:05 - Subjective Subjective: PGY2 Resident - Medicine Progress Note Patient seen and examined at bedside. No overnight events per nursing. PICC line in place. Patient for OR today for debridement. Reports resolving constipation, no acute complaints. Reports occasional burning in b/l lateral legs. Denies fevers, chills, nausea, vomiting, diarrhea, or any acute complaints. Objective - Vital Signs/Intake and Output Vital Signs (last 24 hours): Temp Pulse Resp BP Pulse Ox 98 F 97 H 20 118/78 96 05/28/17 08:00 05/28/17 08:00 05/28/17 08:00 05/28/17 08:00 05/28/17 08:00 Intake and Output: 05/28/17 05/28/17 06:59 18:59 Intake Total 410 Output Total 850 Balance -440 - Medications Medications: Current Medications Apixaban (Eliquis) 5 mg PO BID [facility] Last Admin: 05/27/17 17:45 Dose: 5 mg Aspirin (Ecotrin) 81 mg PO DAILY [facility] Last Admin: 05/27/17 09:50 Dose: 81 mg Clonazepam (Klonopin) 1 mg PO Q12 [facility] Last Admin: 05/27/17 22:41 Dose: Not Given Docusate Sodium (Colace) 100 mg PO TID [facility] Last Admin: 05/27/17 17:45 Dose: Not Given Famotidine (Pepcid) 20 mg PO BID [facility] Last Admin: 05/27/17 17:45 Dose: 20 mg Fluconazole (Diflucan) 100 mg PO DAILY [facility] Last Admin: 05/27/17 09:49 Dose: 100 mg Furosemide (Lasix) 40 mg IVP DAILY [facility] Last Admin: 05/27/17 09:50 Dose: 40 mg Gabapentin (Neurontin) 600 mg PO TID [facility] Last Admin: 05/27/17 17:45 Dose: 600 mg Hydromorphone HCl (Dilaudid) 1 mg IVP Q4H PRN PRN Reason: pain Last Admin: 05/28/17 05:31 Dose: 1 mg Piperacillin Sod/Tazobactam Sod (Zosyn 3.375 Gm Iv Premix) 3.375 gm in 50 mls @ 100 mls/hr IVPB Q6H [facility] Last Admin: 05/28/17 06:33 Dose: 100 mls/hr Potassium Chloride (K-Dur 20 Meq Er Tab) 20 meq PO DAILY [facility] Last Admin: 05/27/17 09:50 Dose: 20 meq Ranolazine (Ranexa) 500 mg PO BID [facility] Last Admin: 05/27/17 17:45 Dose: 500 mg Rosuvastatin [place] (Crestor) 20 mg PO HS [facility] Last Admin: 05/27/17 22:41 Dose: Not Given Tiotropium [place] (Spiriva) 18 mcg INH RQ24 [facility] Last Admin: 05/28/17 07:31 Dose: Not Given - Labs Labs: 05/28/17 07:12 05/28/17 07:12 PT 12.4 SECONDS (9.7-12.2) H 05/05/17 06:40 INR 1.1 05/05/17 06:40 APTT 27 SECONDS (21-34) 05/04/17 06:35 - Additional Findings Additional findings: - Constitutional Appears: No Acute Distress, Chronically Ill - Head Exam Head Exam: ATRAUMATIC, NORMAL INSPECTION, NORMOCEPHALIC - Eye Exam Eye Exam: EOMI - ENT Exam ENT Exam: Mucous Membranes Moist - Neck Exam Neck Exam: Full ROM, Normal Inspection - Respiratory Exam Respiratory Exam: NORMAL BREATHING PATTERN. absent: Respiratory Distress - Cardiovascular Exam Cardiovascular Exam: +S1, +S2 - GI/Abdominal Exam GI & Abdominal Exam: Soft, Normal Bowel Sounds. absent: Tenderness - Extremities Exam Extremities Exam: Full ROM - Neurological Exam Neurological Exam: Alert, Awake, Oriented x3 - Psychiatric Exam Psychiatric exam: Normal Mood, Normal Affect - Skin Skin Exam: Dry, Intact, Normal Color, Warm Osteomyelitis of sacrum - stage 4 wound vac to sacrum in place Assessment and Plan - Assessment and Plan (Free Text) Assessment: This is a 60 year old female with history of anxiety, depression, chronic back pain, possible obstructive sleep apnea, COPD, was brought in by the family members because of altered mental status. Patient is s/p septic shock. Patient has sacral wound, likely cause of sepsis. Patient is s/p I/D of sacral wound. Wound vac in place. Wound culture came back positive for proteus mirabilis, group c strep. Patient has new onset of a-fib, started joselyn soaresip on . Patient was in respiratory distress on 05/06/17 and intubated. 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 Patient had second (out of 5 total) plasmapheresis on 05/10/17. Patient was extubated on 05/11/17. Patient had 3rd plasma exchange on 05/12/17. Plasmapheresis as well on 05/14/17. Osteomyelitis of Sacrum 05/28: patient for OR today for further debridement. PICC in place. Continue IV Abx. WBC 18 (patient also on steroids) -ID consulted. Dr. Ornelas. recs appreciated. -fluconazole 100 PO daily -zosyn 3.375 q 6hrs -dilaudid 1 q 4 prn S/P septic shock -s/p urosepsis -ID consulted. Dr. Ornelas. recs appreciated. -fluconazole 100 PO daily -zosyn 3.375 q 6hrs -lasix 40 IV daily -dilaudid 1 q 4 prn S/P DVT -eliquis 5 BID Hx of heart disease -continue ranexa 500 PO BID -asa 81 mg daily Hx of anxiety -klonopin PO q 12 -gabapentin 600 PO TID Hx of HLD - crestor 20 PO HS Constipation -continue colace Hx of hypokalemia -K Dur 20 daily Mon[facility], Dr[facility] Morales, f/u recs. mild IgG K and L monoclonal protein detected patient received several rounds of plasmapheresis GI/DVT ppx - pepcid -eliquis Case discussed with attending. All medical management as per Dr. Tigist Rogers <Lacie Rogers S - Last Filed: 05/28/17 21:04> Objective - Vital Signs/Intake and Output Vital Signs (last 24 hours): Temp Pulse Resp BP Pulse Ox 100.4 F H 100 H 18 109/59 L 100 05/28/17 20:00 05/28/17 20:00 05/28/17 20:00 05/28/17 20:00 05/28/17 20:00 Intake and Output: 05/28/17 05/29/17 18:59 06:59 Intake Total 100 Output Total 400 150 Balance -300 -150 - Medications Medications: Current Medications Apixaban (Eliquis) 5 mg PO BID [facility] Last Admin: 05/27/17 17:45 Dose: 5 mg Aspirin (Ecotrin) 81 mg PO DAILY [facility] Last Admin: 05/28/17 09:55 Dose: Not Given Clonazepam (Klonopin) 1 mg PO Q12 [facility] Last Admin: 05/28/17 09:57 Dose: 1 mg Docusate Sodium (Colace) 100 mg PO TID [facility] Last Admin: 05/28/17 18:43 Dose: Not Given Famotidine (Pepcid) 20 mg PO BID [facility] Last Admin: 05/28/17 18:43 Dose: Not Given Fluconazole (Diflucan) 100 mg PO DAILY [facility] Last Admin: 05/28/17 09:48 Dose: 100 mg Furosemide (Lasix) 40 mg IVP DAILY [facility] Last Admin: 05/28/17 09:54 Dose: 40 mg Gabapentin (Neurontin) 600 mg PO TID [facility] Last Admin: 05/28/17 18:43 Dose: Not Given Hydromorphone HCl (Dilaudid) 1 mg IVP Q4H PRN PRN Reason: pain Last Admin: 05/28/17 05:31 Dose: 1 mg Hydromorphone HCl (Dilaudid) 0.5 mg IVP Q10M PRN PRN Reason: Pain, severe (8-10) Stop: 05/28/17 21:19 Piperacillin Sod/Tazobactam Sod (Zosyn 3.375 Gm Iv Premix) 3.375 gm in 50 mls @ 100 mls/hr IVPB Q6H [facility] Last Admin: 05/28/17 18:10 Dose: 50 mls Lactated Ringer's (Lactated Ringer's) 1,000 mls @ 100 mls/hr IV .Q10H [facility] Metoclopramide HCl (Reglan) 10 mg IVP ONCE PRN PRN Reason: Nausea/Vomiting Stop: 05/28/17 21:13 Pneumococcal Polyvalent Vaccine (Pneumovax 23 Vaccine) 0.5 ml IM .ONCE ONE Stop: 05/29/17 10:01 Potassium Chloride (K-Dur 20 Meq Er Tab) 20 meq PO DAILY [facility] Last Admin: 05/28/17 09:55 Dose: 20 meq Ranolazine (Ranexa) 500 mg PO BID [facility] Last Admin: 05/28/17 18:44 Dose: Not Given Rosuvastatin [place] (Crestor) 20 mg PO HS [facility] Last Admin: 05/27/17 22:41 Dose: Not Given Tiotropium [place] (Spiriva) 18 mcg INH RQ24 [facility] Last Admin: 05/28/17 07:31 Dose: Not Given - Labs Labs: 05/28/17 07:12 05/28/17 07:12 PT 12.4 SECONDS (9.7-12.2) H 05/05/17 06:40 INR 1.1 05/05/17 06:40 APTT 27 SECONDS (21-34) 05/04/17 06:35 Assessment and Plan (1) Anemia Status: Acute (2) Dehydration Status: Acute (3) Guillain Tesfaye syndrome Status: Acute (4) Hypotension Status: Acute (5) Monoclonal gammopathy Status: Acute (6) Sepsis Status: Acute (7) Morbidly obese Status: Chronic (8) Altered mental status Status: Acute (9) Anxiety Status: Acute (10) Cellulitis Status: Acute (11) Chronic pain Status: Acute (12) Fall Status: Acute (13) History of benzodiazepine use Status: Acute (14) Leukocytosis Status: Acute (15) Opiate use Status: Acute (16) Prophylactic measure Status: Acute (17) Rhabdomyolysis Status: Acute (18) Sacral wound Status: Acute (19) Weakness Status: Acute (20) COPD (chronic obstructive pulmonary disease) Status: Chronic (21) HTN (hypertension) Status: Chronic (22) OPHELIA (obstructive sleep apnea) Status: Chronic (23) Spinal stenosis Status: Chronic Attending/Attestation - Attestation I have personally seen and examined this patient.: Yes I have fully participated in the care of the patient.: Yes I have reviewed all pertinent clinical information, including history, physical exam and plan: Yes Notes (Text): 05/28/17 21:04 Is seen and discussed with the staff and resident at [facility] today for debridement today possible discharge on Wednesday
[2017-05-28] MEDS: Ranolazine 500 mg Extended Release Tablets PO SCH ×2 (09:48→18:44)
[2017-05-28] MEDS: Potassium Chloride 20 mEq ER Tab PO SCH (09:55)
--- NOTE | 2017-05-28 16:02 | CP.PCM.PN ---
Subjective - Date & Time of Evaluation Date of Evaluation: 05/28/17 Time of Evaluation: 08:00 - Subjective Subjective: events noted Objective - Vital Signs/Intake and Output Vital Signs (last 24 hours): Temp Pulse Resp BP Pulse Ox 98 F 97 H 20 118/78 96 05/28/17 08:00 05/28/17 08:00 05/28/17 08:00 05/28/17 12:37 05/28/17 08:00 Intake and Output: 05/28/17 05/28/17 06:59 18:59 Intake Total 410 100 Output Total 850 400 Balance -440 -300 - Medications Medications: Current Medications Apixaban (Eliquis) 5 mg PO BID [facility] Last Admin: 05/27/17 17:45 Dose: 5 mg Aspirin (Ecotrin) 81 mg PO DAILY [facility] Last Admin: 05/28/17 09:55 Dose: Not Given Clonazepam (Klonopin) 1 mg PO Q12 [facility] Last Admin: 05/28/17 09:57 Dose: 1 mg Docusate Sodium (Colace) 100 mg PO TID [facility] Last Admin: 05/28/17 13:38 Dose: Not Given Famotidine (Pepcid) 20 mg PO BID [facility] Last Admin: 05/28/17 09:48 Dose: 20 mg Fluconazole (Diflucan) 100 mg PO DAILY [facility] Last Admin: 05/28/17 09:48 Dose: 100 mg Furosemide (Lasix) 40 mg IVP DAILY [facility] Last Admin: 05/28/17 09:54 Dose: 40 mg Gabapentin (Neurontin) 600 mg PO TID [facility] Last Admin: 05/28/17 13:38 Dose: Not Given Hydromorphone HCl (Dilaudid) 1 mg IVP Q4H PRN PRN Reason: pain Last Admin: 05/28/17 05:31 Dose: 1 mg Piperacillin Sod/Tazobactam Sod (Zosyn 3.375 Gm Iv Premix) 3.375 gm in 50 mls @ 100 mls/hr IVPB Q6H [facility] Last Admin: 05/28/17 13:36 Dose: 100 mls/hr Potassium Chloride (K-Dur 20 Meq Er Tab) 20 meq PO DAILY [facility] Last Admin: 05/28/17 09:55 Dose: 20 meq Ranolazine (Ranexa) 500 mg PO BID [facility] Last Admin: 05/28/17 09:48 Dose: 500 mg Rosuvastatin Calcium (Crestor) 20 mg PO HS [facility] Last Admin: 05/27/17 22:41 Dose: Not Given Tiotropium [place] (Spiriva) 18 mcg INH RQ24 [facility] Last Admin: 05/28/17 07:31 Dose: Not Given - Labs Labs: 05/28/17 07:12 05/28/17 07:12 PT 12.4 SECONDS (9.7-12.2) H 05/05/17 06:40 INR 1.1 05/05/17 06:40 APTT 27 SECONDS (21-34) 05/04/17 06:35 - Constitutional Appears: Non-toxic - Head Exam Head Exam: NORMOCEPHALIC - Eye Exam Eye Exam: PERRL - ENT Exam ENT Exam: Mucous Membranes Dry - Neck Exam Neck Exam: absent: Lymphadenopathy - Respiratory Exam Respiratory Exam: Decreased Breath Sounds - Cardiovascular Exam Cardiovascular Exam: REGULAR RHYTHM Assessment and Plan (1) Dehydration Status: Acute (2) Hypotension Status: Acute (3) Sepsis Status: Acute (4) Morbidly obese Status: Chronic (5) Altered mental status Status: Acute (6) Anxiety Status: Acute (7) Cellulitis Status: Acute (8) Chronic pain Status: Acute (9) Weakness Status: Acute (10) COPD (chronic obstructive pulmonary disease) Status: Chronic (11) HTN (hypertension) Status: Chronic (12) OPHELIA (obstructive sleep apnea) Status: Chronic (13) Spinal stenosis Status: Chronic
[2017-05-28] MEDS ORDERED: Bupivacaine-Epi 0.25%-1:200,000 PF Inj ONE (17:44)
[2017-05-28] MEDS ORDERED: Lidocaine 1% Inj (20ml) ONE (17:44)
[2017-05-28] MEDS ORDERED: Lactated Ringer's 1,000 ML IV ONE (17:55)
[2017-05-28] MEDS ORDERED: Propofol 10 mg/ml Inj (20 ML) ONE (18:01)
[2017-05-28] MEDS ORDERED: Midazolam 2 MG/2 ML VIAL ONE (18:01)
--- NOTE | 2017-05-28 18:27 | CP.PCM.PN ---
Subjective - Date & Time of Evaluation Date of Evaluation: 05/28/17 Time of Evaluation: 07:20 - Subjective Subjective: clinically same Objective - Vital Signs/Intake and Output Vital Signs (last 24 hours): Temp Pulse Resp BP Pulse Ox 98.3 F 91 H 20 109/73 96 05/28/17 15:00 05/28/17 15:00 05/28/17 15:00 05/28/17 15:00 05/28/17 15:00 Intake and Output: 05/28/17 05/28/17 06:59 18:59 Intake Total 410 100 Output Total 850 400 Balance -440 -300 - Medications Medications: Current Medications Apixaban (Eliquis) 5 mg PO BID [facility] Last Admin: 05/27/17 17:45 Dose: 5 mg Aspirin (Ecotrin) 81 mg PO DAILY [facility] Last Admin: 05/28/17 09:55 Dose: Not Given Clonazepam (Klonopin) 1 mg PO Q12 [facility] Last Admin: 05/28/17 09:57 Dose: 1 mg Docusate Sodium (Colace) 100 mg PO TID [facility] Last Admin: 05/28/17 13:38 Dose: Not Given Famotidine (Pepcid) 20 mg PO BID [facility] Last Admin: 05/28/17 09:48 Dose: 20 mg Fluconazole (Diflucan) 100 mg PO DAILY [facility] Last Admin: 05/28/17 09:48 Dose: 100 mg Furosemide (Lasix) 40 mg IVP DAILY [facility] Last Admin: 05/28/17 09:54 Dose: 40 mg Gabapentin (Neurontin) 600 mg PO TID [facility] Last Admin: 05/28/17 13:38 Dose: Not Given Hydromorphone HCl (Dilaudid) 1 mg IVP Q4H PRN PRN Reason: pain Last Admin: 05/28/17 05:31 Dose: 1 mg Piperacillin Sod/Tazobactam Sod (Zosyn 3.375 Gm Iv Premix) 3.375 gm in 50 mls @ 100 mls/hr IVPB Q6H [facility] Last Admin: 05/28/17 13:36 Dose: 100 mls/hr Pneumococcal Polyvalent Vaccine (Pneumovax 23 Vaccine) 0.5 ml IM .ONCE ONE Stop: 05/29/17 10:01 Potassium Chloride (K-Dur 20 Meq Er Tab) 20 meq PO DAILY [facility] Last Admin: 05/28/17 09:55 Dose: 20 meq Ranolazine (Ranexa) 500 mg PO BID [facility] Last Admin: 05/28/17 09:48 Dose: 500 mg Rosuvastatin Calcium (Crestor) 20 mg PO HS [facility] Last Admin: 05/27/17 22:41 Dose: Not Given Tiotropium [place] (Spiriva) 18 mcg INH RQ24 [facility] Last Admin: 05/28/17 07:31 Dose: Not Given - Labs Labs: 05/28/17 07:12 05/28/17 07:12 PT 12.4 SECONDS (9.7-12.2) H 05/05/17 06:40 INR 1.1 05/05/17 06:40 APTT 27 SECONDS (21-34) 05/04/17 06:35 - Constitutional Appears: Well - Head Exam Head Exam: ATRAUMATIC, NORMAL INSPECTION, NORMOCEPHALIC - Eye Exam Eye Exam: EOMI, Normal appearance, PERRL Pupil Exam: NORMAL ACCOMODATION, PERRL - ENT Exam ENT Exam: Mucous Membranes Moist, Normal Exam - Neck Exam Neck Exam: Full ROM, Normal Inspection. absent: Lymphadenopathy - Respiratory Exam Respiratory Exam: Decreased Breath Sounds - Cardiovascular Exam Cardiovascular Exam: REGULAR RHYTHM, +S1, +S2 - GI/Abdominal Exam GI & Abdominal Exam: Soft, Diminished Bowel Sounds - Rectal Exam Rectal Exam: Deferred Assessment and Plan (1) Anemia Status: Acute (2) Dehydration Status: Acute (3) Guillain Tesfaye syndrome Status: Acute (4) Hypotension Status: Acute (5) Monoclonal gammopathy Status: Acute (6) Sepsis Status: Acute (7) Morbidly obese Status: Chronic (8) Altered mental status Status: Acute (9) Anxiety Status: Acute (10) Cellulitis Status: Acute (11) Chronic pain Status: Acute (12) Fall Status: Acute (13) History of benzodiazepine use Status: Acute (14) Leukocytosis Status: Acute (15) Opiate use Status: Acute (16) Prophylactic measure Status: Acute (17) Rhabdomyolysis Status: Acute (18) Sacral wound Status: Acute (19) Weakness Status: Acute (20) COPD (chronic obstructive pulmonary disease) Status: Chronic (21) HTN (hypertension) Status: Chronic (22) OPHELIA (obstructive sleep apnea) Status: Chronic (23) Spinal stenosis Status: Chronic
[2017-05-28] MEDS ORDERED: HYDROmorphone 0.5 mg/0.5 ml ISec IVP PRN (19:16)
[2017-05-28] MEDS ORDERED: Bacitracin 500 Units/gm Oint Foilpak UD ONE (19:17)
[2017-05-28] MEDS: Lactated Ringer's 1,000 ML IV SCH (19:40)
--- NOTE | 2017-05-28 19:50 | PCM.SURG1 ---
Surgeon's Initial Post Op Note - Surgeon's Notes Surgeon: Dr. Almaraz Csr: Lisbeth Miner, PGY2 Pre-Operative Diagnosis: Sacral decubitus ulcer, right upper back ulcer, right hip ulcer Operative Findings: Stage 4 sacral ulcer, unstageable right upper back and right hip ulcer, viable tissue under all debrided areas Post-Operative Diagnosis: same Operation Performed: Sharp debridement of sacral decubitus ulcer, right upper back ulcer, and right hip ulcer with use of pulse-lavage. Application of wound vac to sacral decubitus ulcer Specimen/Specimens Removed: debrided tissue from sacral decubitus ulcer, right upper back ulcer, and right hip ulcer Estimated Blood Loss: EBL {In ML}: 20 Date of Surgery/Procedure: 05/28/17 Time of Surgery/Procedure: 17:45
[2017-05-29 00:08] VITALS: RESP 20
[2017-05-29] MEDS: Piperacill/Tazo 3.375gm in Dex 3.375 GM/50 ML BAG IVPB SCH ×2 (01:03→07:06)
--- NOTE | 2017-05-29 01:35 | CP.PCM.PN ---
Subjective - Date & Time of Evaluation Date of Evaluation: 05/29/17 Time of Evaluation: 07:10 - Subjective Subjective: Patient s/e at bedside this AM. NAEO. Patient states that pain is well controlled with current regimen. Denies fevers or chills. Wound vac is functioning well with good suction. Objective - Vital Signs/Intake and Output Vital Signs (last 24 hours): Temp Pulse Resp BP Pulse Ox 98.7 F 104 H 20 120/77 94 L 05/29/17 00:00 05/29/17 00:00 05/29/17 00:00 05/29/17 00:00 05/29/17 00:00 Intake and Output: 05/28/17 05/29/17 18:59 06:59 Intake Total 100 550 Output Total 400 600 Balance -300 -50 - Medications Medications: Current Medications Apixaban (Eliquis) 5 mg PO BID [facility] Last Admin: 05/27/17 17:45 Dose: 5 mg Aspirin (Ecotrin) 81 mg PO DAILY [facility] Last Admin: 05/28/17 09:55 Dose: Not Given Clonazepam (Klonopin) 1 mg PO Q12 [facility] Last Admin: 05/28/17 21:43 Dose: 1 mg Docusate Sodium (Colace) 100 mg PO TID [facility] Last Admin: 05/28/17 18:43 Dose: Not Given Famotidine (Pepcid) 20 mg PO BID [facility] Last Admin: 05/28/17 18:43 Dose: Not Given Fluconazole (Diflucan) 100 mg PO DAILY [facility] Last Admin: 05/28/17 09:48 Dose: 100 mg Furosemide (Lasix) 40 mg IVP DAILY [facility] Last Admin: 05/28/17 09:54 Dose: 40 mg Gabapentin (Neurontin) 600 mg PO TID [facility] Last Admin: 05/28/17 18:43 Dose: Not Given Hydromorphone HCl (Dilaudid) 1 mg IVP Q4H PRN PRN Reason: pain Last Admin: 05/28/17 05:31 Dose: 1 mg Piperacillin Sod/Tazobactam Sod (Zosyn 3.375 Gm Iv Premix) 3.375 gm in 50 mls @ 100 mls/hr IVPB Q6H [facility] Last Admin: 05/29/17 01:03 Dose: 100 mls/hr Lactated Ringer's (Lactated Ringer's) 1,000 mls @ 100 mls/hr IV .Q10H [facility] Last Admin: 05/28/17 19:40 Dose: Not Given Pneumococcal Polyvalent Vaccine (Pneumovax 23 Vaccine) 0.5 ml IM .ONCE ONE Stop: 05/29/17 10:01 Potassium Chloride (K-Dur 20 Meq Er Tab) 20 meq PO DAILY [facility] Last Admin: 05/28/17 09:55 Dose: 20 meq Ranolazine (Ranexa) 500 mg PO BID [facility] Last Admin: 05/28/17 18:44 Dose: Not Given Rosuvastatin Calcium (Crestor) 20 mg PO HS [facility] Last Admin: 05/28/17 21:42 Dose: 20 mg Tiotropium [place] (Spiriva) 18 mcg INH RQ24 [facility] Last Admin: 05/28/17 07:31 Dose: Not Given - Labs Labs: 05/28/17 07:12 05/28/17 07:12 PT 12.4 SECONDS (9.7-12.2) H 05/05/17 06:40 INR 1.1 05/05/17 06:40 APTT 27 SECONDS (21-34) 05/04/17 06:35 - Constitutional Appears: No Acute Distress - Head Exam Head Exam: ATRAUMATIC, NORMOCEPHALIC - Eye Exam Eye Exam: Normal appearance. absent: Conjunctival injection, Scleral icterus - ENT Exam ENT Exam: Mucous Membranes Moist, Normal Oropharynx - Respiratory Exam Respiratory Exam: NORMAL BREATHING PATTERN. absent: Accessory Muscle Use, Respiratory Distress - Cardiovascular Exam Cardiovascular Exam: RRR - GI/Abdominal Exam GI & Abdominal Exam: Soft. absent: Distended, Tenderness - Extremities Exam Extremities Exam: absent: Calf Tenderness, Pedal Edema, Tenderness - Back Exam Additional comments: wound vac in place over sacral wound, intact and suctioning well. Dressings over right upper back C/D/I. Right hip dressings with some stool, no bleeding - Neurological Exam Neurological Exam: Alert, Awake, Oriented x3 - Psychiatric Exam Psychiatric exam: Normal Affect, Normal Mood - Skin Skin Exam: Dry, Normal Color, Warm Assessment and Plan - Assessment and Plan (Free Text) Assessment: 62F morbidly obese who is POD#1 s/p sharp debridement of sacral decubitus ulcer , right upper back ulcer, and right hip ulcer with wound vac placement on sacral decubitus ulcer wound vac functioning well Plan: -Continue wound vac therapy -Possible wound vac change on Wednesday -Turn patient Q2 -Air mattress -Physical therapy -pain and nausea medication PRN -GI/DVT ppx -CBC tomorrow AM. Discussed with Dr. Rufina Miner, PGY2
[2017-05-29] MEDS: Lactated Ringer's 1,000 ML IV SCH (05:15)
[2017-05-29] MEDS: HYDROmorphone 1 mg/ml ISec IVP PRN ×2 (05:50→09:54)
[2017-05-29] MEDS: Tiotropium 18 mcg Cap For Inhalation INH SCH (08:07)
[2017-05-29 09:10] LABS: BASO # 0.2 K/uL (0.0-0.2); BASO % 1.1 % (0.0-2.0); EOS # 1.2 K/uL (0.0-0.7); HEMATOCRIT 29.9 % (34.0-47.0); LYMPH # 2.8 K/uL (1.0-4.3); LYMPH % 16.5 % (20.0-40.0); MEAN CELL VOLUME 88.4 fL (81.0-99.0); MEAN CORPUSCULAR HEMOGLOBIN 28.7 pg (27.0-31.0); MEAN CORPUSCULAR HGB CONC 32.4 g/dL (33.0-37.0); MEAN PLATELET VOLUME 7.8 fL (7.2-11.7); MONO # 0.6 K/uL (0.0-0.8); MONO % 3.2 % (0.0-10.0); NRBC % 0.1 % (0.0-2.0); RED CELL DISTRIBUTION WIDTH 20.3 % (11.5-14.5); WHITE BLOOD COUNT 17.1 K/uL (4.8-10.8)
[2017-05-29] MEDS: Potassium Chloride 20 mEq ER Tab PO SCH (09:46)
[2017-05-29] MEDS: Ranolazine 500 mg Extended Release Tablets PO SCH (09:48)
[2017-05-29 09:50] VITALS: BP 110/72
[2017-05-29] MEDS ORDERED: Pneumococcal 23-Valent Vaccine IM ONE (10:00)
[2017-05-29 10:31] VITALS: PULSE 70; TEMP 98; O2SAT 96
--- NOTE | 2017-05-29 11:27 | CP.PCM.PN ---
Subjective - Date & Time of Evaluation Date of Evaluation: 05/29/17 Time of Evaluation: 11:25 - Subjective Subjective: DISCUSSED WITH TEACHING PASTOR, DR. SOTELO, AND PT CLEARED BY SURGERY TEAM LONG PT HAS WOUND VAC AT FACILITY. PER [facility] [place], ARRANGEMENTS FOR WOUND VAC/WOUND CARE AND TRANSPORTATION WERE MADE YESTERDAY BY [employer]. WOUND VAC TO BE APPLIED SOON PT ARRIVES AT FACILITY. I MADE DR. Tigist LUZ AWARE OF THIS AND HE ALSO CLEARS THE PT FOR D/C TODAY. PRIOR TO D/C PT C/O ABD PAIN EARLIER THIS MORNING. PER PT THE ABD PAIN HAS PASSED AND SHE NEVER INFORMED PRIMARY RN FUNMILAYO. GI ASSESSMENT NORMAL, PT OBESE. ADDED BENTYL TO D/C MEDS PRN; PT AWARE THAT IF SHE NEEDS IT SHE CAN ASK FOR THE MED. DISCUSSED THIS WITH FUNMILAYO RN AND THE TAPPER HELPER PICKING UP PT. NO FURTHER ORDERS. Objective - Vital Signs/Intake and Output Vital Signs (last 24 hours): Temp Pulse Resp BP Pulse Ox 98 F 70 20 110/72 96 05/29/17 08:00 05/29/17 08:00 05/29/17 08:00 05/29/17 09:47 05/29/17 08:00 Intake and Output: 05/29/17 05/29/17 06:59 18:59 Intake Total 1500 Output Total 915 Balance 585 - Medications Medications: Current Medications Apixaban (Eliquis) 5 mg PO BID [facility] Last Admin: 05/29/17 09:46 Dose: 5 mg Aspirin (Ecotrin) 81 mg PO DAILY [facility] Last Admin: 05/29/17 09:46 Dose: 81 mg Clonazepam (Klonopin) 1 mg PO Q12 [facility] Last Admin: 05/29/17 09:46 Dose: 1 mg Docusate Sodium (Colace) 100 mg PO TID [facility] Last Admin: 05/29/17 09:51 Dose: Not Given Famotidine (Pepcid) 20 mg PO BID [facility] Last Admin: 05/29/17 09:47 Dose: 20 mg Fluconazole (Diflucan) 100 mg PO DAILY [facility] Last Admin: 05/29/17 09:48 Dose: 100 mg Furosemide (Lasix) 40 mg IVP DAILY [facility] Last Admin: 05/29/17 09:47 Dose: 40 mg Gabapentin (Neurontin) 600 mg PO TID [facility] Last Admin: 05/29/17 09:46 Dose: 600 mg Hydromorphone HCl (Dilaudid) 1 mg IVP Q4H PRN PRN Reason: pain Last Admin: 05/29/17 09:54 Dose: 1 mg Piperacillin Sod/Tazobactam Sod (Zosyn 3.375 Gm Iv Premix) 3.375 gm in 50 mls @ 100 mls/hr IVPB Q6H [facility] Last Admin: 05/29/17 07:06 Dose: 100 mls/hr Lactated Ringer's (Lactated Ringer's) 1,000 mls @ 100 mls/hr IV .Q10H [facility] Last Admin: 05/28/17 19:40 Dose: Not Given Potassium Chloride (K-Dur 20 Meq Er Tab) 20 meq PO DAILY [facility] Last Admin: 05/29/17 09:46 Dose: 20 meq Ranolazine (Ranexa) 500 mg PO BID [facility] Last Admin: 05/29/17 09:48 Dose: 500 mg Rosuvastatin Calcium (Crestor) 20 mg PO HS [facility] Last Admin: 05/28/17 21:42 Dose: 20 mg Tiotropium [place] (Spiriva) 18 mcg INH RQ24 [facility] Last Admin: 05/29/17 08:07 Dose: 18 mcg - Labs Labs: 05/29/17 09:07 05/28/17 07:12 PT 12.4 SECONDS (9.7-12.2) H 05/05/17 06:40 INR 1.1 05/05/17 06:40 APTT 27 SECONDS (21-34) 05/04/17 06:35
--- NOTE | 2017-05-31 05:01 | OP ---
PROCEDURE DATE: 05/28/2017 PREOPERATIVE DIAGNOSES: 1. Right upper back stage III decubitus ulcer. 2. Right hip stage III sacral decubitus ulcer. 3. Stage IV sacral decubitus ulcer approximately 8 x 5 x 4 cm size. POSTOPERATIVE DIAGNOSES: 1. Right upper back stage III decubitus ulcer. 2. Right hip stage III sacral decubitus ulcer. 3. Stage IV sacral decubitus ulcer approximately 8 x 5 x 4 cm size. PROCEDURES DONE: 1. Excisional debridement of stage IV sacral decubitus ulcer 8 x 5 x 4 cm size. 2. Excisional debridement of right hip stage III decubitus ulcer, the size is 5 x 4 x 2 cm. 3. Excisional debridement of the right upper back decubitus ulcer, the size is 5 x 4 x 2 cm size. 4. Negative pressure wound VAC therapy of sacral decubitus ulcer of 8 x 5 x 4 cm size. SURGEON: The procedure was done by Juan dupree MD OIL WELL DRILLING MANAGER: Lisbeth Miner. TYPE OF ANESTHESIA: General endotracheal tube anesthesia. ESTIMATED BLOOD LOSS: Around 10 mL. DRAIN: Wound VAC was placed as a drain. COMPLICATIONS: None. PATHOLOGY: 1. Stage IV sacral decubitus ulcer wound debrided tissue. 2. Stage III right hip debrided tissue. 3. Stage III right upper back debrided tissue. INTRAOPERATIVE FINDINGS: The patient had stage IV sacral decubitus ulcer, stage III right hip ulcer, and stage III right upper back ulcer. DESCRIPTION OF PROCEDURE: On intraoperative steps, this is a 62-year-old female who was previously operated for stage IV sacral decubitus ulcer with a wound VAC placed 2 weeks ago and the surgery was re-consulted for the wound check and the patient found to have more necrosis of the wound edge of the sacral area, as well as, a new ulcer development of the right upper back and the right hip and the patient was consented for excisional debridement of all the ulcers. The patient was brought to the OR. The patient was placed in left lateral position and right side was completely exposed and after induction of the sedation, the right upper back as well as sacral area was prepped and draped in the usual sterile fashion and the first sacral ulcer was excisionally debrided with blunt and sharp dissection and hemostasis was achieved and wound was irrigated and now the excisional debridement of the right hip ulcer was done and hemostasis was achieved and the wound was irrigated. The right upper back decubitus ulcer was also excisionally debrided with blunt and sharp dissection, the wound was irrigated and hemostasis was achieved. Now the wound VAC was placed on sacral decubitus ulcer area and it was connected to the suction and wet to dry dressing was placed on the right upper back and right hip area and after dry sterile dressing, the patient was reversed from sedation and sent to the postanesthesia care unit in stable condition. Juan Almaraz MD
--- NOTE | 2017-05-31 12:36 | RAD ---
PROCEDURE: Date of procedure: 05/27/2017 Procedure: 1. Placement of a left arm PICC with ultrasound and fluoroscopic guidance, CPT 22304 2. PICC tip confirmation with spot radiograph and is in the superior vena cava Medications: 1 percent lidocaine Total Fluoro time: 4 seconds Radiation: 1 mGy EBL: 3 cc HISTORY: Infection requiring long-term IV antibiotics TECHNIQUE: Following informed consent and procedure time-out, the patient placed supine on the interventional table and the left arm prepped and draped in the usual sterile fashion. Ultrasound showed a patent and compressible left basilic vein. After the skin was anesthetized with lidocaine, the basilic vein was accessed with micro micropuncture technique using ultrasound guidance. A guidewire was then advanced under fluoroscopic guidance into the superior vena cava. An image documenting ultrasound guidance for vascular access was permanently saved. The length of a single-lumen 4 [place] PICC was trimmed to 43 cm and advanced through a peel-away sheath. The PICC was position with tip of PICC confirm a spot radiograph the superior vena cava. The PICC was secured to the patient's skin. The PICC was flushed. A biopatch and sterile dressing was applied. IMPRESSION: Placement of a single-lumen 4 [place] PICC left basilic vein trimmed to 43 cm. The tip of the PICC is confirmed with spot radiograph and is in the superior vena cava.
--- NOTE | 2017-05-31 12:37 | US ---
Date of procedure:05/27/2017 Procedure: Ultrasound guidance for vascular access HISTORY: Infection requiring long-term IV antibiotics TECHNIQUE: Following informed consent and procedure time-out, the patient placed supine on the interventional table and the left arm prepped and draped in the usual sterile fashion. Ultrasound showed a patent and compressible basilic vein. After the skin was anesthetized with lidocaine, the basilic vein was accessed with micro micropuncture technique using ultrasound guidance. An image documenting ultrasound guidance for vascular access was permanently saved. IMPRESSION: Ultrasound guidance for vascular access for placement of PICC.
== END 2017-05-29 14:30 | DRG 853 ==
LOC: C.ER 14:57 → C.9E 17:24 → C.9I 17:49 → C.3T 05-15 14:42 → C.5T 05-18 17:05 → C.3T 05-20 22:10
PROVIDERS: ADMIT Internal Medicine Nephrology; ATTEND Internal Medicine Nephrology
PROC: 5A09457 Assistance with Respiratory Ventilation, 24-96 Consecutive Hours, Continuous Positive Airway Pressure (ICD-10-PCS; 2017-05-02)
PROC: 05HM33Z Insertion of Infusion Device into Right Internal Jugular Vein, Percutaneous Approach (ICD-10-PCS; 2017-05-02)
PROC: 30233K1 Transfusion of Nonautologous Frozen Plasma into Peripheral Vein, Percutaneous Approach (ICD-10-PCS; 2017-05-03)
PROC: 0HBHXZZ Excision of Right Upper Leg Skin, External Approach (ICD-10-PCS; 2017-05-04)
PROC: 3E033XZ Introduction of Vasopressor into Peripheral Vein, Percutaneous Approach (ICD-10-PCS; 2017-05-04)
PROC: 0HB6XZZ Excision of Back Skin, External Approach (ICD-10-PCS; principal; 2017-05-04 07:45)
PROC: 5A1955Z Respiratory Ventilation, Greater than 96 Consecutive Hours (ICD-10-PCS; 2017-05-06)
PROC: 0BH17EZ Insertion of Endotracheal Airway into Trachea, Via Natural or Artificial Opening (ICD-10-PCS; 2017-05-06)
PROC: 02HV33Z Insertion of Infusion Device into Superior Vena Cava, Percutaneous Approach (ICD-10-PCS; 2017-05-07)
PROC: 6A551Z3 Pheresis of Plasma, Multiple (ICD-10-PCS; 2017-05-07)
DX: A41.9 Sepsis, unspecified organism (principal); J96.00 Acute respiratory failure, unspecified whether with hypoxia or hypercapnia; R65.21 Severe sepsis with septic shock; G82.50 Quadriplegia, unspecified; L89.154 Pressure ulcer of sacral region, stage 4; G61.0 Guillain-Barre syndrome; E87.2 Acidosis; D68.9 Coagulation defect, unspecified; L89.153 Pressure ulcer of sacral region, stage 3; L89.113 Pressure ulcer of right upper back, stage 3; Z68.41 Body mass index [BMI] 40.0-44.9, adult; N39.0 Urinary tract infection, site not specified; L03.90 Cellulitis, unspecified; I82.493 Acute embolism and thrombosis of other specified deep vein of lower extremity, bilateral; M62.82 Rhabdomyolysis; M86.9 Osteomyelitis, unspecified; J44.9 Chronic obstructive pulmonary disease, unspecified; E11.65 Type 2 diabetes mellitus with hyperglycemia; E86.0 Dehydration; Z87.442 Personal history of urinary calculi; I10 Essential (primary) hypertension; F17.210 Nicotine dependence, cigarettes, uncomplicated; E66.01 Morbid (severe) obesity due to excess calories; M48.06 Spinal stenosis, lumbar region; Z74.01 Bed confinement status; Z96.651 Presence of right artificial knee joint; B96.4 Proteus (mirabilis) (morganii) as the cause of diseases classified elsewhere; I48.91 Unspecified atrial fibrillation; E87.6 Hypokalemia; E83.42 Hypomagnesemia; M35.9 Systemic involvement of connective tissue, unspecified; D64.9 Anemia, unspecified; D47.2 Monoclonal gammopathy; G47.33 Obstructive sleep apnea (adult) (pediatric); F51.9 Sleep disorder not due to a substance or known physiological condition, unspecified; E11.69 Type 2 diabetes mellitus with other specified complication

== ENCOUNTER 2017-05-30 08:55 | Inpatient (IN) | payer MEDICARE ==
[2017-05-30 08:55] VITALS: PULSE 120; BMI 43.2
--- NOTE | 2017-05-30 10:09 | C.PDOC ---
History Of Present Illness 62-year-old female, presents to the emergency department with complaints of sacral decubitis ulcer, patient was discharged from hospital yesterday, however today she developed severe pain, and was brought in for further evaluation. Denies vomiting or abdominal pain. No other complaints at this time. Time Seen by Provider: 05/30/17 08:57 Chief Complaint (Nursing): Abnormal Skin Integrity History Per: Patient History/Exam Limitations: no limitations Current Symptoms Are (Timing): Still Present Pain Scale Rating Of: 10 Recent travel outside of the [place]: No Past Medical History Reviewed: Historical Data, Nursing Documentation, Vital Signs Vital Signs: Last Vital Signs Temp 99 F 05/30/17 16:00 Pulse 89 05/30/17 16:00 Resp 20 05/30/17 16:00 BP 124/81 05/30/17 16:55 Pulse Ox 96 05/30/17 16:00 - Medical History PMH: HTN, Hypercholesterolemia, Kidney Stones, Pneumonia Surgical History: Cholecystectomy - [facility] Procedures ASSISTANCE WITH RESPIRATORY VENTILATION, <24 HRS, CPAP (03/20/17) Family History: States: Unknown Family Hx - Social History Hx Tobacco Use: Yes Hx Alcohol Use: No Hx Substance Use: No - Immunization History Hx Tetanus Toxoid Vaccination: No Hx Influenza Vaccination: No Hx Pneumococcal Vaccination: No Review Of Systems Except As Marked, All Systems Reviewed And Found Negative. Constitutional: Negative for: Fever Cardiovascular: Negative for: Chest Pain Respiratory: Negative for: Shortness of Breath Gastrointestinal: Negative for: Vomiting Skin: Positive for: Other (decubitus ulcer) Neurological: Negative for: Weakness Physical Exam - Physical Exam Appears: Non-toxic, No Acute Distress Skin: Warm, Dry, No Rash Head: Atraumatic, Normacephalic Eye(s): bilateral: Normal Inspection Nose: Normal Lips: Normal Appearing Neck: Normal ROM Chest: Symmetrical, No Tenderness Cardiovascular: Rhythm Regular, No Murmur Respiratory: Normal Breath Sounds, No Accessory Muscle Use Gastrointestinal/Abdominal: Soft, No Tenderness Back: Other (right-sided Large unstageable decubitus ulcer) Extremity: Normal ROM, Capillary Refill (< 2 sec) Extremity: Bilateral: Normal Color And Temperature Neurological/Psych: Oriented x3, Normal Speech Gait: Unable To Assess ED Course And Treatment - Laboratory Results Result Diagrams: 05/30/17 10:37 05/30/17 10:37 O2 Sat by Pulse Oximetry: 98 (on RA) Pulse Ox Interpretation: Normal Medical Decision Making Medical Decision Making: Plan: * Dilaudid * Reassess and Admission The case was discussed with Dr. Tigist Rogers who agrees to admit the patient for intractable pain and large ulcers. Disposition - Disposition Disposition: HOSPITALIZED Disposition Time: 10:09 Condition: FAIR - POA Present On Arrival: Pressure Ulcer - Clinical Impression Clinical Impression: Decubitus ulcer, Intractable pain - Scribe Statement The provider has reviewed the documentation as recorded by the Scribe (Woody Hobbs) All medical record entries made by the Scribe were at my direction and personally dictated by me. I have reviewed the chart and agree that the record accurately reflects my personal performance of the history, physical exam, medical decision making, and the department course for this patient. I have also personally directed, reviewed, and agree with the discharge instructions and disposition.
[2017-05-30] MEDS ORDERED: HYDROmorphone 0.5 mg/0.5 ml ISec IVP STA (10:16)
[2017-05-30] MEDS ORDERED: HYDROmorphone 1 mg/ml ISec ONE (10:18)
[2017-05-30 10:40] LABS: BASO # 0.2 K/uL (0.0-0.2); BASO % 1.3 % (0.0-2.0); EOS # 1.1 K/uL (0.0-0.7); EOS % 7.4 % (0.0-4.0); LYMPH # 2.2 K/uL (1.0-4.3); LYMPH % 14.2 % (20.0-40.0); MEAN CELL VOLUME 88.4 fL (81.0-99.0); MEAN CORPUSCULAR HEMOGLOBIN 29.1 pg (27.0-31.0); MEAN CORPUSCULAR HGB CONC 32.8 g/dL (33.0-37.0); MEAN PLATELET VOLUME 7.9 fL (7.2-11.7); MONO % 6.6 % (0.0-10.0); RED CELL DISTRIBUTION WIDTH 20.3 % (11.5-14.5); WHITE BLOOD COUNT 15.2 K/uL (4.8-10.8)
[2017-05-30 10:49] LABS: CHLORIDE 93 mmol/L (98-107); SODIUM 136 mmol/L (132-148)
[2017-05-30 10:50] LABS: POTASSIUM 3.9 mmol/L (3.6-5.2)
[2017-05-30 10:52] LABS: ALB/GLOB RATIO 0.9 (1.0-2.1); ALKALINE PHOSPHATASE 71 U/L (38-126); ALT/SGPT 27 U/L (9-52); AST/SGOT 36 U/L (14-36); BILIRUBIN,TOTAL 1.4 mg/dL (0.2-1.3); BLOOD UREA NITROGEN 16 mg/dL (7-17); CALCIUM 8.9 mg/dl (8.6-10.4); CARBON DIOXIDE 32 mmol/L (22-30); GFR AFRICAN-AMERICAN > 60; GLUCOSE,RANDOM 97 mg/dL (65-105); TOTAL PROTEIN 7.3 g/dL (6.3-8.3)
[2017-05-30] MEDS ORDERED: oxyCODONE 20 mg ER Tab (oxyCONTIN) PO PRN (14:29)
[2017-05-30] MEDS ORDERED: Petrolatum Oint Foilpak (5 gm) TOP PRN (14:29)
[2017-05-30] MEDS ORDERED: DEX IVPB SCH (16:00)
[2017-05-30] MEDS ORDERED: PIPERACILL IVPB SCH (16:00)
[2017-05-30] MEDS ORDERED: TAZO IVPB SCH (16:00)
[2017-05-30] MEDS: Potassium Chloride 20 mEq ER Tab PO SCH (16:53)
[2017-05-30] MEDS: HYDROmorphone 0.5 mg/0.5 ml ISec IVP PRN ×2 (16:57→22:46)
[2017-05-30] MEDS: Saccharomyces Boulardi 250 mg Cap PO SCH (17:02)
--- NOTE | 2017-05-30 17:53 | CP.PCM.HP ---
Past Patient History - Past Medical History & Family History Past Medical History?: Yes - Past Social History Smoking Status: Light Smoker < 10 Cigarettes Daily - CARDIAC Hx Hypercholesterolemia: Yes Hx Hypertension: Yes - PULMONARY Hx Pneumonia: Yes - NEUROLOGICAL Hx Neurological Disorder: No - HEENT Hx HEENT Problems: No - RENAL Hx Kidney Stones: Yes - ENDOCRINE/METABOLIC Hx Endocrine Disorders: No - HEMATOLOGICAL/ONCOLOGICAL Hx Blood Disorders: No - INTEGUMENTARY Other/Comment: Abdominal Fold reddened and weeping with foul smell. Sacral decubitus - MUSCULOSKELETAL/RHEUMATOLOGICAL Hx Falls: Yes - GASTROINTESTINAL Hx Gastrointestinal Disorders: No Hx Gall Bladder Disease: Yes - GENITOURINARY/GYNECOLOGICAL Hx Genitourinary Disorders: No - PSYCHIATRIC Hx Substance Use: No - SURGICAL HISTORY Hx Cholecystectomy: Yes - ANESTHESIA Hx Anesthesia: Yes Hx Anesthesia Reactions: No Hx Malignant Hyperthermia: No Meds Allergies/Adverse Reactions: Allergies Allergy/AdvReac Type Severity Reaction Status Date / Time No Known Allergies Allergy Verified 05/30/17 09:08 Results - Vital Signs Recent Vital Signs: Last Vital Signs Temp 99 F 05/30/17 16:00 Pulse 89 05/30/17 16:00 Resp 20 05/30/17 16:00 BP 124/81 05/30/17 16:55 Pulse Ox 96 05/30/17 16:00 - Labs Result Diagrams: 05/30/17 10:37 05/30/17 10:37 Labs: Laboratory Results - last 24 hr 05/30/17 05/30/17 05/30/17 10:37 10:37 16:44 WBC 15.2 H RBC 3.51 L Hgb 10.2 L Hct 31.0 L MCV 88.4 MCH 29.1 MCHC 32.8 L RDW 20.3 H Plt Count 219 MPV 7.9 Neut % (Auto) 70.5 Lymph % (Auto) 14.2 L [place] % (Auto) 6.6 Eos % (Auto) 7.4 H Baso % (Auto) 1.3 Neut # 10.7 H Lymph # 2.2 [place] # 1.0 H Eos # 1.1 H Baso # 0.2 Sodium 136 Potassium 3.9 Chloride 93 L Carbon Dioxide 32 H Anion Gap 15 BUN 16 Creatinine 0.6 L Est GFR ( Amer) > 60 Est GFR (Non-Af Amer) > 60 POC Glucose (mg/dL) 104 Random Glucose 97 Calcium 8.9 Total Bilirubin 1.4 H AST 36 ALT 27 Alkaline Phosphatase 71 Total Protein 7.3 Albumin 3.4 L Globulin 3.9 Albumin/Globulin Ratio 0.9 L
[2017-05-30] MEDS: Ranolazine 500 mg Extended Release Tablets PO SCH (18:10)
[2017-05-30] MEDS: Piperacill/Tazo 3.375gm in Dex 3.375 GM/50 ML BAG IVPB SCH ×2 (18:15→22:45)
[2017-05-30] MEDS: Oxycodone/Acetaminophen 5/325 mg Tab PO PRN (21:27)
[2017-05-31] MEDS: Albuterol-Ipratrop 3 mg / 0.5 (3 ml) UD INH SCH ×4 (01:08→20:21)
[2017-05-31] MEDS: Piperacill/Tazo 3.375gm in Dex 3.375 GM/50 ML BAG IVPB SCH ×4 (03:15→21:38)
[2017-05-31] MEDS: Oxycodone/Acetaminophen 5/325 mg Tab PO PRN ×3 (03:27→21:32)
[2017-05-31] MEDS: HYDROmorphone 0.5 mg/0.5 ml ISec IVP PRN ×3 (05:11→17:42)
[2017-05-31] MEDS: Tiotropium 18 mcg Cap For Inhalation INH SCH (08:27)
[2017-05-31] MEDS: Potassium Chloride 20 mEq ER Tab PO SCH (09:58)
[2017-05-31] MEDS: Saccharomyces Boulardi 250 mg Cap PO SCH ×2 (09:59→17:41)
[2017-05-31] MEDS: Ranolazine 500 mg Extended Release Tablets PO SCH ×2 (10:00→17:42)
[2017-05-31] MEDS: Collagenase 250 Units/gm Ointment(30 gm) TOP SCH (10:14)
--- NOTE | 2017-05-31 12:35 | RAD ---
PROCEDURE: CHEST RADIOGRAPH, 1 VIEW HISTORY: confirm PICC line position COMPARISON: Portable chest 05/12/2017 FINDINGS: LUNGS: The patient rotated toward the right with left PICC catheter delete identified placed returning in the brachiocephalic vein or brachycephalic vein junction with the superior vena cava. Right central venous on chin removed. No definite infiltrate bilaterally. PLEURA: No pleural effusion or pneumothorax bilaterally. Linear atelectasis or fibrosis in the inferior left lung zone. CARDIOVASCULAR: Normal. OSSEOUS STRUCTURES: No significant abnormalities. VISUALIZED UPPER ABDOMEN: Normal. OTHER FINDINGS: None. IMPRESSION: Status post removal of right central venous catheter and placement of a PICC by left upper extremity approach terminating at the brachiocephalic vein or possibly a brachycephalic vein junction with the superior vena cava. No pneumothorax identified.
--- NOTE | 2017-05-31 21:28 | CP.PCM.HP ---
Past Patient History - Past Medical History & Family History Past Medical History?: Yes - Past Social History Smoking Status: Light Smoker < 10 Cigarettes Daily - CARDIAC Hx Hypercholesterolemia: Yes Hx Hypertension: Yes - PULMONARY Hx Pneumonia: Yes - NEUROLOGICAL Hx Neurological Disorder: No - HEENT Hx HEENT Problems: No - RENAL Hx Kidney Stones: Yes - ENDOCRINE/METABOLIC Hx Endocrine Disorders: No - HEMATOLOGICAL/ONCOLOGICAL Hx Blood Disorders: No - INTEGUMENTARY Other/Comment: Abdominal Fold reddened and weeping with foul smell. Sacral decubitus - MUSCULOSKELETAL/RHEUMATOLOGICAL Hx Arthritis: Yes (BACK PAIN; R HIP AND FOOT PAIN) - GASTROINTESTINAL Hx Gastrointestinal Disorders: No Hx Gall Bladder Disease: Yes - GENITOURINARY/GYNECOLOGICAL Hx Genitourinary Disorders: No - PSYCHIATRIC Hx Substance Use: No - SURGICAL HISTORY Hx Cholecystectomy: Yes - ANESTHESIA Hx Anesthesia: Yes Hx Anesthesia Reactions: No Hx Malignant Hyperthermia: No Meds Allergies/Adverse Reactions: Allergies Allergy/AdvReac Type Severity Reaction Status Date / Time No Known Allergies Allergy Verified 05/30/17 09:08 Physical Exam - Constitutional Appears: Well - Head Exam Head Exam: ATRAUMATIC, NORMAL INSPECTION, NORMOCEPHALIC - Eye Exam Eye Exam: EOMI, Normal appearance, PERRL Pupil Exam: NORMAL ACCOMODATION, PERRL - ENT Exam ENT Exam: Mucous Membranes Moist, Normal Exam - Neck Exam Neck exam: Positive for: Normal Inspection - Respiratory Exam Respiratory Exam: Decreased Breath Sounds - Cardiovascular Exam Cardiovascular Exam: REGULAR RHYTHM, +S1, +S2 - GI/Abdominal Exam GI & Abdominal Exam: Diminished Bowel Sounds, Soft - Rectal Exam Rectal Exam: Deferred Results - Vital Signs Recent Vital Signs: Last Vital Signs Temp 97.6 F 05/31/17 15:00 Pulse 87 05/31/17 15:00 Resp 20 05/31/17 15:00 BP 101/68 05/31/17 15:55 Pulse Ox 95 05/31/17 15:00 - Labs Result Diagrams: 05/30/17 10:37 05/30/17 10:37 Labs: Laboratory Results - last 24 hr 05/30/17 05/30/17 21:32 21:44 POC Glucose (mg/dL) 113 H 118 H
--- NOTE | 2017-05-31 21:30 | CP.PCM.PN ---
Subjective - Date & Time of Evaluation Date of Evaluation: 05/31/17 Time of Evaluation: 09:40 - Subjective Subjective: clinically same Objective - Vital Signs/Intake and Output Vital Signs (last 24 hours): Temp Pulse Resp BP Pulse Ox 97.6 F 87 20 101/68 95 05/31/17 15:00 05/31/17 15:00 05/31/17 15:00 05/31/17 15:55 05/31/17 15:00 Intake and Output: 05/31/17 06/01/17 18:59 06:59 Intake Total 280 Output Total 100 Balance 180 - Medications Medications: Current Medications Albuterol/Ipratropium (Duoneb 3 Mg/0.5 Mg (3 Ml) Ud) 3 ml INH RQ6 [facility] Last Admin: 05/31/17 20:21 Dose: Not Given Apixaban (Eliquis) 5 mg PO BID [facility] Last Admin: 05/31/17 17:42 Dose: 5 mg Aspirin (Ecotrin) 81 mg PO DAILY [facility] Last Admin: 05/31/17 09:59 Dose: 81 mg Clonazepam (Klonopin) 1 mg PO Q12 [facility] Last Admin: 05/31/17 09:56 Dose: 1 mg Collagenase (Santyl) 1 gm TOP DAILY [facility] Last Admin: 05/31/17 10:14 Dose: 1 applic Dicyclomine HCl (Bentyl) 10 mg PO QID PRN PRN Reason: ABDOMINAL CRAMPING Docusate Sodium (Colace) 100 mg PO TID [facility] Last Admin: 05/31/17 17:41 Dose: Not Given Emollient Ointment (Vaseline Oint) 5 gm TOP BID PRN PRN Reason: Dry skin Escitalopram Oxalate (Lexapro) 5 mg PO DAILY [facility] Last Admin: 05/31/17 10:00 Dose: 5 mg Famotidine (Pepcid) 20 mg PO BID [facility] Last Admin: 05/31/17 17:41 Dose: 20 mg Fentanyl (Duragesic) 1 patch TD Q72H [facility] Last Admin: 05/31/17 15:01 Dose: 1 patch Gabapentin (Neurontin) 300 mg PO TID [facility] Last Admin: 05/31/17 17:41 Dose: 300 mg Home Med (Ropinirole Hcl [Ropinirole Hcl]) 1 mg PO [facility] Hydromorphone HCl (Dilaudid) 0.5 mg IVP Q6H PRN PRN Reason: Pain, severe (8-10) Last Admin: 05/31/17 17:42 Dose: 0.5 mg Piperacillin Sod/Tazobactam Sod (Zosyn 3.375 Gm Iv Premix) 3.375 gm in 50 mls @ 50 mls/hr IVPB Q6H [facility] Last Admin: 05/31/17 17:40 Dose: 50 mls/hr Isosorbide Mononitrate (Imdur Er) 30 mg PO DAILY [facility] Last Admin: 05/31/17 09:59 Dose: 30 mg Losartan Potassium (Cozaar) 50 mg PO DAILY [facility] Last Admin: 05/31/17 09:57 Dose: Not Given Oxycodone/Acetaminophen (Percocet 5/325 Mg Tab) 1 tab PO Q6H PRN PRN Reason: Pain, moderate (4-7) Stop: 06/02/17 14:30 Last Admin: 05/31/17 14:46 Dose: 1 tab Potassium Chloride (K-Dur 20 Meq Er Tab) 20 meq PO DAILY [facility] Last Admin: 05/31/17 09:58 Dose: 20 meq Ranolazine (Ranexa) 500 mg PO BID [facility] Last Admin: 05/31/17 17:42 Dose: 500 mg Rosuvastatin Calcium (Crestor) 20 mg PO HS [facility] Last Admin: 05/30/17 21:26 Dose: 20 mg Saccharomyces Boulardii (Florastor) 250 mg PO BID [facility] Last Admin: 05/31/17 17:41 Dose: 250 mg Tiotropium [place] (Spiriva) 18 mcg INH RQ24 [facility] Last Admin: 05/31/17 08:27 Dose: Not Given - Labs Labs: 05/30/17 10:37 05/30/17 10:37 - Constitutional Appears: Well - Head Exam Head Exam: ATRAUMATIC, NORMAL INSPECTION, NORMOCEPHALIC - Eye Exam Eye Exam: EOMI, Normal appearance, PERRL Pupil Exam: NORMAL ACCOMODATION, PERRL - ENT Exam ENT Exam: Mucous Membranes Moist, Normal Exam - Neck Exam Neck Exam: Full ROM, Normal Inspection. absent: Lymphadenopathy - Respiratory Exam Respiratory Exam: Decreased Breath Sounds - Cardiovascular Exam Cardiovascular Exam: REGULAR RHYTHM, +S1, +S2 - GI/Abdominal Exam GI & Abdominal Exam: Soft, Diminished Bowel Sounds - Rectal Exam Rectal Exam: Deferred Assessment and Plan - Assessment and Plan (Free Text) Plan: Patient is back in the system no new complaints patient is back on the Eliquis patient is back on IV antibiotic dosing follow-up with the consultations continue with the pain medications For subacute placement
[2017-06-01] MEDS: Sodium Chloride 0.9% 1,000 ML IV SCH ×3 (01:13→14:24)
[2017-06-01] MEDS: Albuterol-Ipratrop 3 mg / 0.5 (3 ml) UD INH SCH ×4 (01:56→20:10)
[2017-06-01] MEDS: Piperacill/Tazo 3.375gm in Dex 3.375 GM/50 ML BAG IVPB SCH ×3 (04:37→20:15)
[2017-06-01 07:35] LABS: BASO # 0.1 K/uL (0.0-0.2); BASO % 0.7 % (0.0-2.0); EOS # 0.9 K/uL (0.0-0.7); EOS % 6.7 % (0.0-4.0); HEMATOCRIT 27.2 % (34.0-47.0); LYMPH # 1.5 K/uL (1.0-4.3); LYMPH % 10.6 % (20.0-40.0); MEAN CORPUSCULAR HEMOGLOBIN 29.3 pg (27.0-31.0); MEAN CORPUSCULAR HGB CONC 32.5 g/dL (33.0-37.0); MEAN PLATELET VOLUME 8.4 fL (7.2-11.7); MONO # 0.7 K/uL (0.0-0.8); MONO % 5.1 % (0.0-10.0); NRBC % 0.1 % (0.0-2.0); RED CELL DISTRIBUTION WIDTH 20.9 % (11.5-14.5); WHITE BLOOD COUNT 13.8 K/uL (4.8-10.8)
[2017-06-01 08:04] LABS: POTASSIUM 3.7 mmol/L (3.6-5.2)
[2017-06-01 08:07] LABS: ALB/GLOB RATIO 0.9 (1.0-2.1); CALCIUM 8.1 mg/dl (8.6-10.4); TOTAL PROTEIN 6.2 g/dL (6.3-8.3)
[2017-06-01] MEDS: Tiotropium 18 mcg Cap For Inhalation INH SCH (08:16)
[2017-06-01] MEDS ORDERED: Sodium Chloride 0.9% 1,000 ML IV ONE (08:47)
[2017-06-01] MEDS ORDERED: DOPamine 400mg/250ml D5W IV ONE (09:58)
--- NOTE | 2017-06-01 10:21 | CP.PCM.PN ---
Subjective - Date & Time of Evaluation Date of Evaluation: 06/01/17 Time of Evaluation: 08:40 - Subjective Subjective: AUTOMOTIVE ELECTRICIAN CALLED BY KANDICE WALSH TO ADDRESS PT'S BP OF SYSTOLIC 70'S. UPON EVALUATION, PT WAS SUPINE, AAOX3, SPEECH CLEAR. PT DENIES DIZZINESS, VISUAL CHANGES, CO, SOB, N/V. VITALS RECHECKED BY AUTOMOTIVE ELECTRICIAN: 97.6-84-19-98/63-99% WITH 2 LPM VIA NC. PT NOTED TO HAVE DURAGESIC PATCH PLACED SINCE YESTERDAY. PT STATES TO AUTOMOTIVE ELECTRICIAN THAT SHE DOESN'T KNOW WHY THE PATCH WAS ORDERED OR PUT ON BECAUSE THE PRN DILAUDID AND PERCOCET RELIEVE HER PAIN. PER Ramesh LUZ, ID CONSULT W DR VASQUEZ TO BE DONE WELL ICU EVAL. AUTOMOTIVE ELECTRICIAN NOTIFIED DR. VASQUEZ OF CONSULT. ALSO DISCUSSED CASE W ICU RESIDENT DR. LAI. LEFT MESSAGE FOR DR. ALFARO, THE OUTSIDE BARREL LATHE OPERATOR. ADDRESSED WITH PRIMARY KANDICE WALSH WHY [employer] WAS NOT CALLED ON THE PT; SHE STATED SHE DIDN'T THINK IT NEEDED TO BE CALLED REGARDLESS OF BP BECAUSE PT IS VERBALLY RESPONDING. PLAN: -REMOVE DURAGESIC PATCH STAT; HOLD ALL NARCOTIC PAIN MEDS. DISCUSSED THIS WITH PT AND SHE IS IN AGREEMENT. -PENDING ID EVAL. -PENDING ICU EVAL AND POSSIBLE TRANSFER. -IVF BOLUS NS 1 L; DR. ALFARO ALSO AGREES WITH THIS PLAN UNTIL PT EVALUATED IN PERSON. -ADD STAT LACTIC ACID TO LABS TO R/O SEPSIS. -VS TO BE DONE Q30 MINUTES AND DOCUMENTED X2 HRS. -ANY FURTHER CHANGES OR DETERIORATION OF PT, PRIMARY KANDICE WALSH MADE AWARE TO CALL [employer] IMMEDIATELY. -FURTHER MANAGEMENT AND TREATMENT BY MEDICAL TEAM AND CONSULTS. -AUTOMOTIVE ELECTRICIAN SIGNING OFF CASE AT THIS TIME UNTIL FURTHER REQUESTED BY ATTENDING BELTING INSPECTOR. WILL HOWEVER F/U WITH LACTIC ACID AND ICU EVAL TO REDUCE DELAY IN CARE. Objective - Vital Signs/Intake and Output Vital Signs (last 24 hours): Temp Pulse Resp BP Pulse Ox 97 F L 86 19 91/59 L 96 06/01/17 09:01 06/01/17 09:01 06/01/17 09:01 06/01/17 09:01 06/01/17 09:01 Intake and Output: 06/01/17 06/01/17 06:59 18:59 Intake Total 300 Output Total 200 Balance 100 - Medications Medications: Current Medications Albuterol/Ipratropium (Duoneb 3 Mg/0.5 Mg (3 Ml) Ud) 3 ml INH RQ6 [facility] Last Admin: 06/01/17 08:16 Dose: Not Given Apixaban (Eliquis) 5 mg PO BID [facility] Last Admin: 05/31/17 17:42 Dose: 5 mg Aspirin (Ecotrin) 81 mg PO DAILY [facility] Last Admin: 05/31/17 09:59 Dose: 81 mg Clonazepam (Klonopin) 1 mg PO Q12 [facility] Last Admin: 05/31/17 21:29 Dose: 1 mg Collagenase (Santyl) 1 gm TOP DAILY [facility] Last Admin: 05/31/17 10:14 Dose: 1 applic Dicyclomine HCl (Bentyl) 10 mg PO QID PRN PRN Reason: ABDOMINAL CRAMPING Docusate Sodium (Colace) 100 mg PO TID [facility] Last Admin: 05/31/17 17:41 Dose: Not Given Emollient Ointment (Vaseline Oint) 5 gm TOP BID PRN PRN Reason: Dry skin Escitalopram Oxalate (Lexapro) 5 mg PO DAILY [facility] Last Admin: 05/31/17 10:00 Dose: 5 mg Famotidine (Pepcid) 20 mg PO BID [facility] Last Admin: 05/31/17 17:41 Dose: 20 mg Fentanyl (Duragesic) 1 patch TD Q72H [facility] Last Admin: 05/31/17 15:01 Dose: 1 patch Gabapentin (Neurontin) 300 mg PO TID [facility] Last Admin: 05/31/17 17:41 Dose: 300 mg Home Med (Ropinirole Hcl [Ropinirole Hcl]) 1 mg PO [facility] Hydromorphone HCl (Dilaudid) 0.5 mg IVP Q6H PRN PRN Reason: Pain, severe (8-10) Last Admin: 05/31/17 17:42 Dose: 0.5 mg Piperacillin Sod/Tazobactam Sod (Zosyn 3.375 Gm Iv Premix) 3.375 gm in 50 mls @ 50 mls/hr IVPB Q6H [facility] Last Admin: 06/01/17 04:37 Dose: 50 mls/hr Sodium Chloride (Sodium Chloride 0.9%) 1,000 mls @ 250 mls/hr IV .Q4H ONE Stop: 06/01/17 12:46 Dopamine HCl/Dextrose (Dopamine 400mg/250ml D5w) 400 mg in 250 mls @ 8.097 mls/ hr IV .Q24H PRN; Protocol; 2 MCG/KG/MIN PRN Reason: TITRATE PER MD ORDER Isosorbide Mononitrate (Imdur Er) 30 mg PO DAILY [facility] Last Admin: 05/31/17 09:59 Dose: 30 mg Oxycodone/Acetaminophen (Percocet 5/325 Mg Tab) 1 tab PO Q6H PRN PRN Reason: Pain, moderate (4-7) Stop: 06/02/17 14:30 Last Admin: 05/31/17 21:32 Dose: 1 tab Potassium Chloride (K-Dur 20 Meq Er Tab) 20 meq PO DAILY [facility] Last Admin: 05/31/17 09:58 Dose: 20 meq Ranolazine (Ranexa) 500 mg PO BID [facility] Last Admin: 05/31/17 17:42 Dose: 500 mg Rosuvastatin Calcium (Crestor) 20 mg PO HS [facility] Last Admin: 05/31/17 21:29 Dose: 20 mg Saccharomyces Boulardii (Florastor) 250 mg PO BID [facility] Last Admin: 05/31/17 17:41 Dose: 250 mg Tiotropium [place] (Spiriva) 18 mcg INH RQ24 [facility] Last Admin: 06/01/17 08:16 Dose: Not Given - Labs Labs: 06/01/17 07:28 06/01/17 07:28
[2017-06-01] MEDS: DOPamine 400mg/250ml D5W 400 MG/250 ML BAG IV PRN ×2 (10:26→19:23)
[2017-06-01] MEDS: Ranolazine 500 mg Extended Release Tablets PO SCH ×2 (10:28→17:29)
[2017-06-01] MEDS: Potassium Chloride 20 mEq ER Tab PO SCH (10:28)
[2017-06-01] MEDS: Saccharomyces Boulardi 250 mg Cap PO SCH ×2 (10:28→17:29)
[2017-06-01] MEDS: Collagenase 250 Units/gm Ointment(30 gm) TOP SCH (10:29)
--- NOTE | 2017-06-01 11:15 | CP.PCM.CON ---
History of Present Illness - History of Present Illness History of Present Illness: transferred to ICU with sepsis hx OM sacrum GBS and resp failure IV rx started will follow Past Patient History - Past Medical History & Family History Past Medical History?: Yes - Past Social History Smoking Status: Light Smoker < 10 Cigarettes Daily - CARDIAC Hx Hypercholesterolemia: Yes Hx Hypertension: Yes - PULMONARY Hx Pneumonia: Yes - NEUROLOGICAL Hx Neurological Disorder: No - HEENT Hx HEENT Problems: No - RENAL Hx Kidney Stones: Yes - ENDOCRINE/METABOLIC Hx Endocrine Disorders: No - HEMATOLOGICAL/ONCOLOGICAL Hx Blood Disorders: No - INTEGUMENTARY Other/Comment: Abdominal Fold reddened and weeping with foul smell. Sacral decubitus - MUSCULOSKELETAL/RHEUMATOLOGICAL Hx Arthritis: Yes (BACK PAIN; R HIP AND FOOT PAIN) - GASTROINTESTINAL Hx Gastrointestinal Disorders: No Hx Gall Bladder Disease: Yes - GENITOURINARY/GYNECOLOGICAL Hx Genitourinary Disorders: No - PSYCHIATRIC Hx Substance Use: No - SURGICAL HISTORY Hx Cholecystectomy: Yes - ANESTHESIA Hx Anesthesia: Yes Hx Anesthesia Reactions: No Hx Malignant Hyperthermia: No Meds Allergies/Adverse Reactions: Allergies Allergy/AdvReac Type Severity Reaction Status Date / Time No Known Allergies Allergy Verified 05/30/17 09:08 - Medications Medications: Current Medications Albuterol/Ipratropium (Duoneb 3 Mg/0.5 Mg (3 Ml) Ud) 3 ml INH RQ6 [facility] Last Admin: 06/01/17 08:16 Dose: Not Given Apixaban (Eliquis) 5 mg PO BID [facility] Last Admin: 06/01/17 10:28 Dose: Not Given Aspirin (Ecotrin) 81 mg PO DAILY [facility] Last Admin: 06/01/17 10:27 Dose: Not Given Collagenase (Santyl) 1 gm TOP DAILY [facility] Last Admin: 06/01/17 10:29 Dose: Not Given Dicyclomine HCl (Bentyl) 10 mg PO QID PRN PRN Reason: ABDOMINAL CRAMPING Docusate Sodium (Colace) 100 mg PO TID [facility] Last Admin: 06/01/17 10:26 Dose: Not Given Emollient Ointment (Vaseline Oint) 5 gm TOP BID PRN PRN Reason: Dry skin Escitalopram Oxalate (Lexapro) 5 mg PO DAILY [facility] Last Admin: 05/31/17 10:00 Dose: 5 mg Famotidine (Pepcid) 20 mg PO BID [facility] Last Admin: 06/01/17 10:28 Dose: Not Given Gabapentin (Neurontin) 300 mg PO TID [facility] Last Admin: 06/01/17 10:28 Dose: Not Given Home Med (Ropinirole Hcl [Ropinirole Hcl]) 1 mg PO HS [facility] Piperacillin Sod/Tazobactam Sod (Zosyn 3.375 Gm Iv Premix) 3.375 gm in 50 mls @ 50 mls/hr IVPB Q6H [facility] Last Admin: 06/01/17 10:29 Dose: Not Given Sodium Chloride (Sodium Chloride 0.9%) 1,000 mls @ 250 mls/hr IV .Q4H ONE Stop: 06/01/17 12:46 Last Admin: 06/01/17 08:45 Dose: 250 mls/hr Dopamine HCl/Dextrose (Dopamine 400mg/250ml D5w) 400 mg in 250 mls @ 8.097 mls/ hr IV .Q24H PRN; Protocol; 2 MCG/KG/MIN PRN Reason: TITRATE PER MD ORDER Last Admin: 06/01/17 10:26 Dose: 2 mcg/kg/min, 8.097 mls/hr [place]em 1 gm/ Sodium (Chloride) 100 mls @ 100 mls/hr IVPB Q8H [facility] Potassium Chloride (K-Dur 20 Meq Er Tab) 20 meq PO DAILY [facility] Last Admin: 06/01/17 10:28 Dose: Not Given Ranolazine (Ranexa) 500 mg PO BID [facility] Last Admin: 06/01/17 10:28 Dose: Not Given Rosuvastatin Calcium (Crestor) 20 mg PO HS [facility] Last Admin: 05/31/17 21:29 Dose: 20 mg Saccharomyces Boulardii (Florastor) 250 mg PO BID [facility] Last Admin: 06/01/17 10:28 Dose: Not Given Tiotropium [place] (Spiriva) 18 mcg INH RQ24 [facility] Last Admin: 06/01/17 08:16 Dose: Not Given Results - Vital Signs Recent Vital Signs: Last Vital Signs Temp 97 F L 06/01/17 09:01 Pulse 84 06/01/17 10:26 Resp 20 06/01/17 10:26 BP 74/42 L 06/01/17 10:26 Pulse Ox 96 06/01/17 10:26 - Labs Result Diagrams: 06/01/17 07:28 09/12/17 07:28 Labs: Laboratory Results - last 24 hr 06/01/17 06/01/17 06/01/17 07:28 07:28 08:21 WBC 13.8 H RBC 3.02 L Hgb 8.8 L Hct 27.2 L MCV 90.0 MCH 29.3 MCHC 32.5 L RDW 20.9 H Plt Count 196 MPV 8.4 Neut % (Auto) 76.9 H Lymph % (Auto) 10.6 L [place] % (Auto) 5.1 Eos % (Auto) 6.7 H Baso % (Auto) 0.7 Neut # 10.6 H Lymph # 1.5 [place] # 0.7 Eos # 0.9 H Baso # 0.1 Sodium 137 Potassium 3.7 Chloride 94 L Carbon Dioxide 27 Anion Gap 20 BUN 28 H Creatinine 1.8 H Est GFR ( Amer) 35 Est GFR (Non-Af Amer) 29 POC Glucose (mg/dL) 116 H Random Glucose 81 Lactic Acid Calcium 8.1 L Total Bilirubin 1.0 AST 25 ALT 25 Alkaline Phosphatase 67 Total Protein 6.2 L Albumin 2.9 L Globulin 3.3 Albumin/Globulin Ratio 0.9 L 06/01/17 06/01/17 09:29 10:02 WBC RBC Hgb Hct MCV MCH MCHC RDW Plt Count MPV Neut % (Auto) Lymph % (Auto) [place] % (Auto) Eos % (Auto) Baso % (Auto) Neut # Lymph # [place] # Eos # Baso # Sodium Potassium Chloride Carbon Dioxide Anion Gap BUN Creatinine Est GFR ( Amer) Est GFR (Non-Af Amer) POC Glucose (mg/dL) 147 H Random Glucose Lactic Acid 1.1 Calcium Total Bilirubin AST ALT Alkaline Phosphatase Total Protein Albumin Globulin Albumin/Globulin Ratio
[2017-06-01] MEDS ORDERED: Sodium Chloride 0.9% 500 ML IV ONE (13:42)
--- NOTE | 2017-06-01 16:18 | PCM.RRT ---
<Markus Nance - Last Filed: 06/01/17 17:07> RESERVOIR ENGINEERING ADVISOR Nurses Assessment - Situation RESERVOIR ENGINEERING ADVISOR Responder Arrival Time: 09:56 Location: 364B Room Number: [id number] RESERVOIR ENGINEERING ADVISOR Reason for Call: Hypotension RESERVOIR ENGINEERING ADVISOR Called By: RN - IV IV Inserted during RESERVOIR ENGINEERING ADVISOR?: No IV Fluids Initiated During RESERVOIR ENGINEERING ADVISOR?: NS 3L. Dopamine 5mcg to 7mcg - Respiratory Received Nebulizer Treatments: No Was the Patient Ventilated with Bag/Mask 100% O2?: No Secretions Suctioned?: No Was the Patient Intubated?: No - Ventilator Settings Ventilator Respiratory Rate Settin - Medication Medications Administered During RESERVOIR ENGINEERING ADVISOR: Dopamine 5mcg - 7mcg - Diagnostic Test Ordered EKG: Yes Chest X-Ray: No CT Scan: No CPR started during RESERVOIR ENGINEERING ADVISOR?: No - Vital Signs Vital Signs: 66/41, HR 86, Sat 100, sugar 147 - Irwin Coma Scale Coma Scale Eye Opening: Spontaneous Coma Scale Motor: Obeys Commands Movement Coma Scale Verbal: Oriented Coma Scale Total: 15 - Sepsis Screen Part 1 Sepsis Screen Part 1: Hypotensive - Time RESERVOIR ENGINEERING ADVISOR Ended Time RESERVOIR ENGINEERING ADVISOR Ended: 10:35 - Vital Signs at end of RESERVOIR ENGINEERING ADVISOR Vital Signs at end of RESERVOIR ENGINEERING ADVISOR: 86/52, HR 86 - Recommendations 5) RESERVOIR ENGINEERING ADVISOR Level of Care Recommendations: Transfer to ICU Notifications: Attending Physician, Consultations I.Reason for RESERVOIR ENGINEERING ADVISOR - A) Acute Change in Patient: (Select all that apply): Acute change in SBP below Subjective: Patient denied any trouble breathing, dizziness, nausea, SOB, numbness, weakness , change in vision, vertigo - Neurological Status (Select all that apply): Alert, Responsive, Oriented, Verbal, Follows Commands - Respiratory Oxygen Delivery Method: Room Air - Constitutional Appears: Well, Non-toxic, No Acute Distress - Head Head Exam: ATRAUMATIC, NORMAL INSPECTION, NORMOCEPHALIC - Eyes Eye Exam: EOMI - Respiratory Exam Respiratory Exam: Clear to Ausculation Bilateral, NORMAL BREATHING PATTERN - Cardiovascular Exam Cardiovascular Exam: REGULAR RHYTHM - GI/Abdominal Exam GI & Abdominal Exam: Soft, Normal Bowel Sounds. absent: Distended, Tenderness, Organomegaly Additional comments: Sacral decub stage 4 - Neurological Exam Neurological Exam: Alert, Awake, Oriented x3 - Extremities Exam Extremities Exam: absent: Joint Swelling, Tenderness Plan - Assessment of Findings&Treatment Plan transferred to ICU on pressors <Mita Pritchett V - Last Filed: 06/01/17 22:07> - Constitutional Appears: Chronically Ill - Cardiovascular Exam Cardiovascular Exam: +S1, +S2 Attending/Attestation - Attestation I have personally seen and examined this patient.: Yes I have fully participated in the care of the patient.: Yes I have reviewed all pertinent clinical information, including history, physical exam and plan: Yes Notes (Text): Hospitalist Note * Came in response to RESERVOIR ENGINEERING ADVISOR with RESERVOIR ENGINEERING ADVISOR Team (Resident head of store operations, Dr Nance, PGY1 and Colleague: Dr Burnett, with ICU nurse,Car, and charge nurse, Poppy and patient primary nurse at bedside. called by nurse for hypotension this morning. Patient with hx of cardiomyopathy, cad, chronic low back pain, sacral decub stage 4 as well multiple other co-morbities for SBP: low 60s. * Patient had PICC line placed yesterday, per discussion with her AM nurse, patient did not have urine output overnight, this morning retaining 200 cc, patient currently has pradhan at bedside. Patient started on 1 NS bolus but SBP did not improve SBP:60-70s. Patient started on Dopamine 5mcg/kg and titrated to 7.5 mcg/kg improved SBP: 80s. Patient placed in [place] during the time. Patient during the time of rapid, is AAOX3, speaking clearly in full sentences, and is conversant but is visible pale. Patient had lactic drawn earlier: 1.1. Per discussion with her nurse, she has been without her wound vac since Wednesday for sacral decub wound and due to see wound care nurse, Tre today. * Discussed with ICU, Dr. Quiñones regarding patient given minimal improvement in SBP from low 60s to mid 80s while on dopamine and brought to ICU BED 2 for further evaluation. * Held pain medications, Ranexa, Imdur, and duragesic withheld in low of SBP: 60s * Patient's physician, Dr. Tigist Rogers was notified at time of rapid and aware patient is going to ICU. Resident spoken with ID on the case, Abx adjusted per ID recommendation.
--- NOTE | 2017-06-01 17:33 | CP.PCM.CON ---
<Hema Burch Jorje - Last Filed: 06/01/17 17:19> History of Present Illness - History of Present Illness History of Present Illness: 62 y/o F with morbidly obesity presented to the emergency department 2 days ago on 05/30/17 with complaints of sacral decubitis ulcer, patient was discharged from hospital 1 day prior, however developed severe pain, and was brought in for further evaluation. Denies vomiting or abdominal pain. No other complaints at this time. 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 PMHX: HTN, morbid obesity, probable OPHELIA, neuropathic pain, depression PSHX: cholecystectomy Medications: Duoneb, apixaban 5mg po bid, clonazepam 1mg po q12, lexapro 5mg po daily, pepcid 20mg po bid, lasix 40 mg ivp vial daily, neurontin 300mg po tid, imdur 30mg po daily, losartan 50mg po daily, oxycodone 20mg po q12 prn, ranolazine 500mg po bid, crestor 20mg po hs, spiriva 18mcg inh Allergies: NKDA SOCHX: smoker, no drugs no ETOH abuse Review of Systems - Constitutional Constitutional: absent: Chills, Fever, Headache - EENT Eyes: absent: Change in Vision - Cardiovascular Cardiovascular: absent: Chest Pain, Diaphoresis - Respiratory Respiratory: absent: Cough, Dyspnea - Gastrointestinal Gastrointestinal: absent: Abdominal Pain, Constipation, Diarrhea - Genitourinary Genitourinary: absent: Dysuria - Musculoskeletal Musculoskeletal: Back Pain - Integumentary Integumentary: Skin Ulcer, Sores Past Patient History - Past Medical History & Family History Past Medical History?: Yes - Past Social History Smoking Status: Light Smoker < 10 Cigarettes Daily - CARDIAC Hx Hypercholesterolemia: Yes Hx Hypertension: Yes - PULMONARY Hx Pneumonia: Yes - NEUROLOGICAL Hx Neurological Disorder: No - HEENT Hx HEENT Problems: No - RENAL Hx Kidney Stones: Yes - ENDOCRINE/METABOLIC Hx Endocrine Disorders: No - HEMATOLOGICAL/ONCOLOGICAL Hx Blood Disorders: No - INTEGUMENTARY Other/Comment: Abdominal Fold reddened and weeping with foul smell. Sacral decubitus - MUSCULOSKELETAL/RHEUMATOLOGICAL Hx Arthritis: Yes (BACK PAIN; R HIP AND FOOT PAIN) - GASTROINTESTINAL Hx Gastrointestinal Disorders: No Hx Gall Bladder Disease: Yes - GENITOURINARY/GYNECOLOGICAL Hx Genitourinary Disorders: No - PSYCHIATRIC Hx Substance Use: No - SURGICAL HISTORY Hx Cholecystectomy: Yes - ANESTHESIA Hx Anesthesia: Yes Hx Anesthesia Reactions: No Hx Malignant Hyperthermia: No Meds Allergies/Adverse Reactions: Allergies Allergy/AdvReac Type Severity Reaction Status Date / Time No Known Allergies Allergy Verified 05/30/17 09:08 - Medications Medications: Current Medications Albuterol/Ipratropium (Duoneb 3 Mg/0.5 Mg (3 Ml) Ud) 3 ml INH RQ6 [facility] Last Admin: 06/01/17 14:07 Dose: Not Given Apixaban (Eliquis) 5 mg PO BID [facility] Last Admin: 06/01/17 10:28 Dose: Not Given Aspirin (Ecotrin) 81 mg PO DAILY [facility] Last Admin: 06/01/17 10:27 Dose: Not Given Collagenase (Santyl) 1 gm TOP DAILY [facility] Last Admin: 06/01/17 10:29 Dose: Not Given Dicyclomine HCl (Bentyl) 10 mg PO QID PRN PRN Reason: ABDOMINAL CRAMPING Docusate Sodium (Colace) 100 mg PO TID [facility] Last Admin: 06/01/17 14:26 Dose: 100 mg Emollient Ointment (Vaseline Oint) 5 gm TOP BID PRN PRN Reason: Dry skin Escitalopram Oxalate (Lexapro) 5 mg PO DAILY [facility] Last Admin: 06/01/17 10:28 Dose: Not Given Famotidine (Pepcid) 20 mg PO BID [facility] Last Admin: 06/01/17 10:28 Dose: Not Given Gabapentin (Neurontin) 300 mg PO TID [facility] Last Admin: 06/01/17 16:43 Dose: 300 mg Piperacillin Sod/Tazobactam Sod (Zosyn 3.375 Gm Iv Premix) 3.375 gm in 50 mls @ 50 mls/hr IVPB Q6H [facility] Last Admin: 06/01/17 10:29 Dose: Not Given Dopamine HCl/Dextrose (Dopamine 400mg/250ml D5w) 400 mg in 250 mls @ 8.097 mls/ hr IV .Q24H PRN; Protocol; 2 MCG/KG/MIN PRN Reason: TITRATE PER MD ORDER Last Titration: 09/12/17 12:31 Dose: 7 mcg/kg/min, 28.338 mls/hr Meropenem 1 gm/ Sodium (Chloride) 100 mls @ 100 mls/hr IVPB Q8H [facility] Last Admin: 06/01/17 12:25 Dose: 100 mls/hr Sodium Chloride (Sodium Chloride 0.9%) 1,000 mls @ 100 mls/hr IV .Q10H [facility] Last Admin: 06/01/17 14:24 Dose: 100 mls/hr Norepinephrine Bitartrate 4 mg (/ Sodium Chloride) 254 mls @ 15.24 mls/hr IV .[id number] PRN; Protocol; 4 MCG/MIN PRN Reason: TITRATE PER MD ORDER Potassium Chloride (K-Dur 20 Meq Er Tab) 20 meq PO DAILY [facility] Last Admin: 06/01/17 10:28 Dose: Not Given Pramipexole Dihydrochloride (Mirapex) 0.25 mg PO [facility] Ranolazine (Ranexa) 500 mg PO BID [facility] Last Admin: 06/01/17 10:28 Dose: Not Given Rosuvastatin Calcium (Crestor) 20 mg PO [facility] Last Admin: 05/31/17 21:29 Dose: 20 mg Saccharomyces Boulardii (Florastor) 250 mg PO BID [facility] Last Admin: 06/01/17 10:28 Dose: Not Given Tiotropium Adams (Spiriva) 18 mcg INH RQ24 [facility] Last Admin: 06/01/17 08:16 Dose: Not Given Physical Exam - Constitutional Appears: Well, No Acute Distress Additional comments: morbid obesity - Head Exam Head Exam: ATRAUMATIC, NORMAL INSPECTION - Eye Exam Eye Exam: EOMI - ENT Exam ENT Exam: Mucous Membranes Moist - Respiratory Exam Respiratory Exam: Clear to Auscultation Bilateral. absent: Rales, Rhonchi, Wheezes - Cardiovascular Exam Cardiovascular Exam: REGULAR RHYTHM, +S1, +S2 - GI/Abdominal Exam GI & Abdominal Exam: Normal Bowel Sounds, Soft - Rectal Exam Rectal Exam: Deferred - Extremities Exam Extremities exam: Positive for: pedal edema - Neurological Exam Neurological exam: Alert, Oriented x3 - Psychiatric Exam Psychiatric exam: Flat Affect - Skin Additional comments: unstageable ~5 cm decubitis ulcer in right mid-back stage 3 ~5cm decubitis ulcer in right gluteal area stage 4 ~8cm decubitis ulcer between gluteal folds Results - Vital Signs Recent Vital Signs: Last Vital Signs Temp 98.1 F 06/01/17 12:00 Pulse 76 06/01/17 16:31 Resp 17 06/01/17 16:31 BP 91/52 L 06/01/17 16:31 Pulse Ox 100 06/01/17 16:30 - Labs Result Diagrams: 06/01/17 07:28 06/01/17 07:28 Labs: Laboratory Results - last 24 hr 06/01/17 06/01/17 06/01/17 07:28 07:28 08:21 WBC 13.8 H RBC 3.02 L Hgb 8.8 L Hct 27.2 L MCV 90.0 MCH 29.3 MCHC 32.5 L RDW 20.9 H Plt Count 196 MPV 8.4 Neut % (Auto) 76.9 H Lymph % (Auto) 10.6 L [place] % (Auto) 5.1 Eos % (Auto) 6.7 H Baso % (Auto) 0.7 Neut # 10.6 H Lymph # 1.5 [place] # 0.7 Eos # 0.9 H Baso # 0.1 Sodium 137 Potassium 3.7 Chloride 94 L Carbon Dioxide 27 Anion Gap 20 BUN 28 H Creatinine 1.8 H Est GFR ( Amer) 35 Est GFR (Non-Af Amer) 29 POC Glucose (mg/dL) 116 H Random Glucose 81 Lactic Acid Calcium 8.1 L Total Bilirubin 1.0 AST 25 ALT 25 Alkaline Phosphatase 67 Total Protein 6.2 L Albumin 2.9 L Globulin 3.3 Albumin/Globulin Ratio 0.9 L 06/01/17 06/01/17 09:29 10:02 WBC RBC Hgb Hct MCV MCH MCHC RDW Plt Count MPV Neut % (Auto) Lymph % (Auto) [place] % (Auto) Eos % (Auto) Baso % (Auto) Neut # Lymph # [place] # Eos # Baso # Sodium Potassium Chloride Carbon Dioxide Anion Gap BUN Creatinine Est GFR ( Amer) Est GFR (Non-Af Amer) POC Glucose (mg/dL) 147 H Random Glucose Lactic Acid 1.1 Calcium Total Bilirubin AST ALT Alkaline Phosphatase Total Protein Albumin Globulin Albumin/Globulin Ratio Assessment & Plan - Assessment and Plan (Free Text) Assessment: 62 year old F with morbid obesity admitted for decubitis ulcers here in the ICU for hypotension. Cardiovascular: hypotensive - dopomine drip - levophed - NS 100 cc/hr - - con't home med apixaban 5mg po bid - con't home med ranolazine 500 mg po bid - con't home med rosuvastatin 20mg po hs - con't home med aspirin 81mg po daily MSK: decubitis ulcers - unstageable ~5 cm decubitis ulcer in right mid-back - stage 3 ~5cm decubitis ulcer in right gluteal area - stage 4 ~8cm decubitis ulcer between gluteal folds - [facility] care nurse, Tre Alcazar, on board - con't home med collagenase 1gm top - con't home med gabapentin 300mg po tid ID: leukocytosis - meropenem 1gm iv q8 - pip/tazo 3.375gm iv q6 - ID, Dr Ornelas, on board Pulmonary: hx of obstructive sleep apnea - con't home med duoneb - con't home med tiotropium 18 mcg inh rq24 Psychiatry: hx of depression, hx of anxiety - con't home med escitalopram 5mg po daily - con't home med pramipexole 0.25mg po hs Nephro: - Nephro, Dr Vicente, consulted Prophylaxis: GI: famotidine 20mg po bid DVT: on apixaban 5mg po bid; contraindications for SCDs - peripheral ischemia/ edema of leg <Howard Quiñones - Last Filed: 06/01/17 18:31> Meds - Medications Medications: Current Medications Albuterol/Ipratropium (Duoneb 3 Mg/0.5 Mg (3 Ml) Ud) 3 ml INH RQ6 [facility] Last Admin: 06/01/17 14:07 Dose: Not Given Apixaban (Eliquis) 5 mg PO BID [facility] Last Admin: 06/01/17 17:30 Dose: 5 mg Aspirin (Ecotrin) 81 mg PO DAILY [facility] Last Admin: 06/01/17 10:27 Dose: Not Given Collagenase (Santyl) 1 gm TOP DAILY [facility] Last Admin: 06/01/17 10:29 Dose: Not Given Dicyclomine HCl (Bentyl) 10 mg PO QID PRN PRN Reason: ABDOMINAL CRAMPING Docusate Sodium (Colace) 100 mg PO TID [facility] Last Admin: 06/01/17 17:29 Dose: 100 mg Emollient Ointment (Vaseline Oint) 5 gm TOP BID PRN PRN Reason: Dry skin Escitalopram Oxalate (Lexapro) 5 mg PO DAILY [facility] Last Admin: 06/01/17 10:28 Dose: Not Given Famotidine (Pepcid) 20 mg PO BID [facility] Last Admin: 06/01/17 17:30 Dose: 20 mg Gabapentin (Neurontin) 300 mg PO TID [facility] Last Admin: 06/01/17 16:43 Dose: 300 mg Piperacillin Sod/Tazobactam Sod (Zosyn 3.375 Gm Iv Premix) 3.375 gm in 50 mls @ 50 mls/hr IVPB Q6H [facility] Last Admin: 06/01/17 10:29 Dose: Not Given Dopamine HCl/Dextrose (Dopamine 400mg/250ml D5w) 400 mg in 250 mls @ 8.097 mls/ hr IV .Q24H PRN; Protocol; 2 MCG/KG/MIN PRN Reason: TITRATE PER MD ORDER Last Titration: 06/01/17 12:31 Dose: 7 mcg/kg/min, 28.338 mls/hr Meropenem 1 gm/ Sodium (Chloride) 100 mls @ 100 mls/hr IVPB Q8H [facility] Last Admin: 06/01/17 12:25 Dose: 100 mls/hr Sodium Chloride (Sodium Chloride 0.9%) 1,000 mls @ 100 mls/hr IV .Q10H [facility] Last Admin: 06/01/17 14:24 Dose: 100 mls/hr Norepinephrine Bitartrate 4 mg (/ Sodium Chloride) 254 mls @ 15.24 mls/hr IV .[id number] PRN; Protocol; 4 MCG/MIN PRN Reason: TITRATE PER MD ORDER Potassium Chloride (K-Dur 20 Meq Er Tab) 20 meq PO DAILY [facility] Last Admin: 06/01/17 10:28 Dose: Not Given Pramipexole Dihydrochloride (Mirapex) 0.25 mg PO HS [facility] Last Admin: 06/01/17 17:29 Dose: 0.25 mg Ranolazine (Ranexa) 500 mg PO BID [facility] Last Admin: 06/01/17 17:29 Dose: 500 mg Rosuvastatin Calcium (Crestor) 20 mg PO HS [facility] Last Admin: 05/31/17 21:29 Dose: 20 mg Saccharomyces Boulardii (Florastor) 250 mg PO BID [facility] Last Admin: 06/01/17 17:29 Dose: 250 mg Tiotropium Adams (Spiriva) 18 mcg INH RQ24 [facility] Last Admin: 06/01/17 08:16 Dose: Not Given Results - Vital Signs Recent Vital Signs: Last Vital Signs Temp 98.4 F 06/01/17 16:00 Pulse 87 06/01/17 18:12 Resp 19 06/01/17 18:12 BP 92/45 L 06/01/17 18:12 Pulse Ox 98 06/01/17 18:12 - Labs Result Diagrams: 06/01/17 07:28 06/01/17 07:28 Labs: Laboratory Results - last 24 hr 06/01/17 06/01/17 06/01/17 07:28 07:28 08:21 WBC 13.8 H RBC 3.02 L Hgb 8.8 L Hct 27.2 L MCV 90.0 MCH 29.3 MCHC 32.5 L RDW 20.9 H Plt Count 196 MPV 8.4 Neut % (Auto) 76.9 H Lymph % (Auto) 10.6 L [place] % (Auto) 5.1 Eos % (Auto) 6.7 H Baso % (Auto) 0.7 Neut # 10.6 H Lymph # 1.5 [place] # 0.7 Eos # 0.9 H Baso # 0.1 Sodium 137 Potassium 3.7 Chloride 94 L Carbon Dioxide 27 Anion Gap 20 BUN 28 H Creatinine 1.8 H Est GFR ( Amer) 35 Est GFR (Non-Af Amer) 29 POC Glucose (mg/dL) 116 H Random Glucose 81 Lactic Acid Calcium 8.1 L Total Bilirubin 1.0 AST 25 ALT 25 Alkaline Phosphatase 67 Total Protein 6.2 L Albumin 2.9 L Globulin 3.3 Albumin/Globulin Ratio 0.9 L 06/01/17 06/01/17 09:29 10:02 WBC RBC Hgb Hct MCV MCH MCHC RDW Plt Count MPV Neut % (Auto) Lymph % (Auto) [place] % (Auto) Eos % (Auto) Baso % (Auto) Neut # Lymph # [place] # Eos # Baso # Sodium Potassium Chloride Carbon Dioxide Anion Gap BUN Creatinine Est GFR ( Amer) Est GFR (Non-Af Amer) POC Glucose (mg/dL) 147 H Random Glucose Lactic Acid 1.1 Calcium Total Bilirubin AST ALT Alkaline Phosphatase Total Protein Albumin Globulin Albumin/Globulin Ratio Attending/Attestation - Attestation I have personally seen and examined this patient.: Yes I have fully participated in the care of the patient.: Yes I have reviewed all pertinent clinical information: Yes Notes (Text): 06/01/17 18:31 Patient seen and examined Transferred to ICU for hypotension and started on pressors Continue fluid resuscitation Continue IV antibiotics BiPAP at night
--- NOTE | 2017-06-01 21:21 | CP.PCM.PN ---
Subjective - Date & Time of Evaluation Date of Evaluation: 06/01/17 Time of Evaluation: 15:20 - Subjective Subjective: clinically same Objective - Vital Signs/Intake and Output Vital Signs (last 24 hours): Temp Pulse Resp BP Pulse Ox 98.4 F 89 20 106/56 L 99 06/01/17 16:00 06/01/17 19:23 06/01/17 19:23 06/01/17 19:23 06/01/17 19:23 Intake and Output: 06/01/17 06/02/17 18:59 06:59 Intake Total 3984.8 250 Output Total 450 Balance 3534.8 250 - Medications Medications: Current Medications Albuterol/Ipratropium (Duoneb 3 Mg/0.5 Mg (3 Ml) Ud) 3 ml INH RQ6 [facility] Last Admin: 06/01/17 14:07 Dose: Not Given Apixaban (Eliquis) 5 mg PO BID [facility] Last Admin: 06/01/17 17:30 Dose: 5 mg Aspirin (Ecotrin) 81 mg PO DAILY [facility] Last Admin: 06/01/17 10:27 Dose: Not Given Collagenase (Santyl) 1 gm TOP DAILY [facility] Last Admin: 06/01/17 10:29 Dose: Not Given Dicyclomine HCl (Bentyl) 10 mg PO QID PRN PRN Reason: ABDOMINAL CRAMPING Docusate Sodium (Colace) 100 mg PO TID [facility] Last Admin: 06/01/17 17:29 Dose: 100 mg Emollient Ointment (Vaseline Oint) 5 gm TOP BID PRN PRN Reason: Dry skin Escitalopram Oxalate (Lexapro) 5 mg PO DAILY [facility] Last Admin: 06/01/17 10:28 Dose: Not Given Famotidine (Pepcid) 20 mg PO BID [facility] Last Admin: 06/01/17 17:30 Dose: 20 mg Gabapentin (Neurontin) 300 mg PO TID [facility] Last Admin: 06/01/17 20:05 Dose: 300 mg Dopamine HCl/Dextrose (Dopamine 400mg/250ml D5w) 400 mg in 250 mls @ 8.097 mls/ hr IV .Q24H PRN; Protocol; 2 MCG/KG/MIN PRN Reason: TITRATE PER MD ORDER Last Admin: 06/01/17 19:23 Dose: 7.92 mcg/kg/min, 32.063 mls/hr Meropenem 1 gm/ Sodium (Chloride) 100 mls @ 100 mls/hr IVPB Q8H [facility] Last Admin: 06/01/17 20:25 Dose: 100 mls/hr Sodium Chloride (Sodium Chloride 0.9%) 1,000 mls @ 100 mls/hr IV .Q10H [facility] Last Admin: 06/01/17 14:24 Dose: 100 mls/hr Norepinephrine Bitartrate 4 mg (/ Sodium Chloride) 254 mls @ 15.24 mls/hr IV .[id number] PRN; Protocol; 4 MCG/MIN PRN Reason: TITRATE PER MD ORDER Potassium Chloride (K-Dur 20 Meq Er Tab) 20 meq PO DAILY [facility] Last Admin: 06/01/17 10:28 Dose: Not Given Pramipexole Dihydrochloride (Mirapex) 0.25 mg PO HS [facility] Last Admin: 06/01/17 17:29 Dose: 0.25 mg Ranolazine (Ranexa) 500 mg PO BID [facility] Last Admin: 06/01/17 17:29 Dose: 500 mg Rosuvastatin Calcium (Crestor) 20 mg PO HS [facility] Last Admin: 05/31/17 21:29 Dose: 20 mg Saccharomyces Boulardii (Florastor) 250 mg PO BID [facility] Last Admin: 06/01/17 17:29 Dose: 250 mg Tiotropium [place] (Spiriva) 18 mcg INH RQ24 [facility] Last Admin: 06/01/17 08:16 Dose: Not Given - Labs Labs: 06/01/17 07:28 06/01/17 07:28
[2017-06-02] MEDS: Sodium Chloride 0.9% 1,000 ML IV SCH ×2 (00:54→13:23)
[2017-06-02] MEDS: Albuterol-Ipratrop 3 mg / 0.5 (3 ml) UD INH SCH ×4 (02:02→20:16)
[2017-06-02] MEDS: DOPamine 400mg/250ml D5W 400 MG/250 ML BAG IV PRN (03:48)
[2017-06-02 06:44] LABS: BASO # 0.1 K/uL (0.0-0.2); BASO % 0.7 % (0.0-2.0); EOS # 0.9 K/uL (0.0-0.7); EOS % 7.7 % (0.0-4.0); HEMATOCRIT 27.1 % (34.0-47.0); LYMPH # 1.8 K/uL (1.0-4.3); MEAN CORPUSCULAR HEMOGLOBIN 29.2 pg (27.0-31.0); MEAN CORPUSCULAR HGB CONC 32.9 g/dL (33.0-37.0); MONO # 0.7 K/uL (0.0-0.8); MONO % 6.5 % (0.0-10.0); RED CELL DISTRIBUTION WIDTH 20.4 % (11.5-14.5); WHITE BLOOD COUNT 11.3 K/uL (4.8-10.8)
[2017-06-02 06:54] LABS: CHLORIDE 100 mmol/L (98-107)
[2017-06-02 06:55] LABS: POTASSIUM 2.9 mmol/L (3.6-5.2); SODIUM 137 mmol/L (132-148)
[2017-06-02 06:57] LABS: ALKALINE PHOSPHATASE 60 U/L (38-126); ALT/SGPT 31 U/L (9-52); AST/SGOT 22 U/L (14-36); BILIRUBIN,TOTAL 0.6 mg/dL (0.2-1.3); BLOOD UREA NITROGEN 18 mg/dL (7-17); CARBON DIOXIDE 25 mmol/L (22-30); GFR AFRICAN-AMERICAN > 60; GLUCOSE,RANDOM 84 mg/dL (65-105); PHOSPHOROUS 3.7 mg/dL (2.5-4.5); TOTAL PROTEIN 5.7 g/dL (6.3-8.3)
[2017-06-02 06:58] LABS: CALCIUM 8.5 mg/dl (8.6-10.4); MAGNESIUM 1.7 mg/dL (1.6-2.3)
[2017-06-02 07:06] LABS: ALB/GLOB RATIO 0.8 (1.0-2.1)
--- NOTE | 2017-06-02 07:08 | CP.CCUPN ---
<Hema Burch - Last Filed: 06/02/17 14:19> CCU Subjective - Physician Review Subjective (Free Text): Patient seen and examined at bedside. Alert, responsive, in no acute distress. Patient c/o back pain (currently not on pain control). Denies all other prompts on ROS. 06/02/17 14:19 CCU Objective - Vital Signs / Intake & Output Vital Signs (Last 4 hours): Vital Signs Pulse Resp BP Pulse Ox 06/02/17 03:48 75 17 104/57 L 100 Intake and Output (Last 8hrs): Intake & Output 06/01/17 06/02/17 06/02/17 22:59 06:59 14:59 Intake Total 1677.1 386.1 Output Total 840 140 Balance 837.1 246.1 Intake: IV 250 250 Intake, IV Amount 1077.1 136.1 Left Distal Port PICC 277.1 36.1 Left Proximal Port PICC 800 100 Oral 350 0 Output: Urine 840 140 Urethral (Colmenares) 840 140 Other: # Bowel Movements 0 0 - Physical Exam Narrative Physical Exam (Free Text): morbid obesity 06/02/17 07:07 Head: Positive for: Atraumatic, Normocephalic Pupils: Positive for: PERRL Extroacular Muscles: Positive for: EOMI Mouth: Positive for: Moist Mucous Membranes Respiratory/Chest: Positive for: Clear to Auscultation, Decreased Breath Sounds , Other (decreased breath sounds 2/2 body habitus) Cardiovascular: Positive for: Regular Rate and Rhythm, Normal S1, S2 Abdomen: Positive for: Normal Bowel Sounds. Negative for: Tenderness Lower Extremity: Positive for: Edema Skin: Positive for: Other (unstageable ~5 cm decubitis ulcer in right mid-back; stage 3 ~5cm decubitis ulcer in right gluteal area; stage 4 ~8cm decubitis ulcer between gluteal folds) Psychiatric: Positive for: Alert, Oriented x 3 - Medications Active Medications: Active Medications Generic Name Dose Route Start Last Admin Trade Name Freq PRN Reason Stop Dose Admin Albuterol/Ipratropium 3 ml 05/30/17 20:00 06/02/17 02:02 Duoneb 3 Mg/0.5 Mg (3 Ml) Ud INH Not Given RQ6 RIK Apixaban 5 mg 05/30/17 18:00 06/01/17 17:30 Eliquis PO 5 mg BID RIK Administration Aspirin 81 mg 05/30/17 16:00 06/01/17 10:27 Ecotrin PO Not Given DAILY RIK Collagenase 1 gm 05/31/17 10:00 06/01/17 10:29 Santyl TOP Not Given DAILY RIK Dicyclomine HCl 10 mg 05/30/17 14:29 Bentyl PO QID PRN ABDOMINAL CRAMPING Docusate Sodium 100 mg 05/30/17 18:00 06/01/17 17:29 Colace PO 100 mg TID RIK Administration Emollient Ointment 5 gm 05/30/17 14:29 Vaseline Oint TOP BID PRN Dry skin Escitalopram Oxalate 5 mg 05/30/17 16:00 06/01/17 10:28 Lexapro PO Not Given DAILY RIK Famotidine 20 mg 05/30/17 18:00 06/01/17 17:30 Pepcid PO 20 mg BID RIK Administration Gabapentin 300 mg 05/30/17 18:00 06/01/17 20:05 Neurontin PO 300 mg TID RIK Administration Dopamine HCl/Dextrose 400 mg in 250 mls @ 8.097 mls/hr 06/01/17 10:13 03:48 Dopamine 400mg/250ml D5w IV 6.94 mcg/kg/min .Q24H PRN 28.092 mls/hr TITRATE PER MD ORDER Administration Protocol 2 MCG/KG/MIN Meropenem 1 gm/ Sodium 100 mls @ 100 mls/hr 06/01/17 12:00 06/02/17 03:49 Chloride IVPB 100 mls/hr Q8H RIK Administration Sodium Chloride 1,000 mls @ 100 mls/hr 06/01/17 14:30 06/02/17 00:54 Sodium Chloride 0.9% IV 100 mls/hr .Q10H RIK Administration Norepinephrine Bitartrate 4 mg 254 mls @ 15.24 mls/hr 06/01/17 15:30 / Sodium Chloride IV .[id number] PRN TITRATE PER MD ORDER Protocol 4 MCG/MIN Potassium Chloride 20 meq 05/30/17 16:00 06/01/17 10:28 K-Dur 20 Meq Er Tab PO Not Given DAILY RIK Pramipexole Dihydrochloride 0.25 mg 06/01/17 18:00 06/01/17 22:00 Mirapex PO Not Given HS RIK Ranolazine 500 mg 05/30/17 18:00 06/01/17 17:29 Ranexa PO 500 mg BID RIK Administration Rosuvastatin Calcium 20 mg 05/30/17 22:00 06/01/17 21:25 Crestor PO 20 mg HS RIK Administration Saccharomyces Boulardii 250 mg 05/30/17 18:00 06/01/17 17:29 Florastor PO 250 mg BID RIK Administration Tiotropium Walker 18 mcg 05/30/17 16:00 06/01/17 08:16 Spiriva INH Not Given RQ24 RIK - Patient Studies Lab Studies: Lab Studies 06/02/17 06/01/17 06/01/17 Range/Units 06:40 10:02 09:29 WBC 11.3 H (4.8-10.8) K/uL RBC 3.04 L (3.80-5.20) Mil/uL Hgb 8.9 L (11.0-16.0) g/dL Hct 27.1 L (34.0-47.0) % MCV 89.0 (81.0-99.0) fL MCH 29.2 (27.0-31.0) pg MCHC 32.9 L (33.0-37.0) g/dL RDW 20.4 H (11.5-14.5) % Plt Count 167 (130-400) K/uL MPV 8.0 (7.2-11.7) fL Neut % (Auto) 69.1 (50.0-75.0) % Lymph % (Auto) 16.0 L (20.0-40.0) % [place] % (Auto) 6.5 (0.0-10.0) % Eos % (Auto) 7.7 H (0.0-4.0) % Baso % (Auto) 0.7 (0.0-2.0) % Neut # 7.8 H (1.8-7.0) K/uL Lymph # 1.8 (1.0-4.3) K/uL [place] # 0.7 (0.0-0.8) K/uL Eos # 0.9 H (0.0-0.7) K/uL Baso # 0.1 (0.0-0.2) K/uL Sodium (132-148) mmol/L Potassium (3.6-5.2) mmol/L Chloride (98-107) mmol/L Carbon Dioxide (22-30) mmol/L Anion Gap (10-20) BUN (7-17) mg/dL Creatinine (0.7-1.2) MG/DL Est GFR ( Amer) Est GFR (Non-Af Amer) POC Glucose (mg/dL) 147 H (65-110) mg/dL Random Glucose (65-105) mg/dL Lactic Acid 1.1 (0.7-2.1) mmol/L Calcium (8.6-10.4) mg/dl Total Bilirubin (0.2-1.3) mg/dL AST (14-36) U/L ALT (9-52) U/L Alkaline Phosphatase (38-126) U/L Total Protein (6.3-8.3) g/dL Albumin (3.5-5.0) g/dL Globulin (2.2-3.9) gm/dL Albumin/Globulin Ratio (1.0-2.1) 06/01/17 06/01/17 06/01/17 Range/Units 08:21 07:28 07:28 WBC 13.8 H (4.8-10.8) K/uL RBC 3.02 L (3.80-5.20) Mil/uL Hgb 8.8 L (11.0-16.0) g/dL Hct 27.2 L (34.0-47.0) % MCV 90.0 (81.0-99.0) fL MCH 29.3 (27.0-31.0) pg MCHC 32.5 L (33.0-37.0) g/dL RDW 20.9 H (11.5-14.5) % Plt Count 196 (130-400) K/uL MPV 8.4 (7.2-11.7) fL Neut % (Auto) 76.9 H (50.0-75.0) % Lymph % (Auto) 10.6 L (20.0-40.0) % [place] % (Auto) 5.1 (0.0-10.0) % Eos % (Auto) 6.7 H (0.0-4.0) % Baso % (Auto) 0.7 (0.0-2.0) % Neut # 10.6 H (1.8-7.0) K/uL Lymph # 1.5 (1.0-4.3) K/uL [place] # 0.7 (0.0-0.8) K/uL Eos # 0.9 H (0.0-0.7) K/uL Baso # 0.1 (0.0-0.2) K/uL Sodium 137 (132-148) mmol/L Potassium 3.7 (3.6-5.2) mmol/L Chloride 94 L (98-107) mmol/L Carbon Dioxide 27 (22-30) mmol/L Anion Gap 20 (10-20) BUN 28 H (7-17) mg/dL Creatinine 1.8 H (0.7-1.2) MG/DL Est GFR ( Amer) 35 Est GFR (Non-Af Amer) 29 POC Glucose (mg/dL) 116 H (65-110) mg/dL Random Glucose 81 (65-105) mg/dL Lactic Acid (0.7-2.1) mmol/L Calcium 8.1 L (8.6-10.4) mg/dl Total Bilirubin 1.0 (0.2-1.3) mg/dL AST 25 (14-36) U/L ALT 25 (9-52) U/L Alkaline Phosphatase 67 (38-126) U/L Total Protein 6.2 L (6.3-8.3) g/dL Albumin 2.9 L (3.5-5.0) g/dL Globulin 3.3 (2.2-3.9) gm/dL Albumin/Globulin Ratio 0.9 L (1.0-2.1) Laboratory Results - last 24 hr 06/01/17 06/01/17 06/01/17 07:28 07:28 08:21 WBC 13.8 H RBC 3.02 L Hgb 8.8 L Hct 27.2 L MCV 90.0 MCH 29.3 MCHC 32.5 L RDW 20.9 H Plt Count 196 MPV 8.4 Neut % (Auto) 76.9 H Lymph % (Auto) 10.6 L [place] % (Auto) 5.1 Eos % (Auto) 6.7 H Baso % (Auto) 0.7 Neut # 10.6 H Lymph # 1.5 [place] # 0.7 Eos # 0.9 H Baso # 0.1 Sodium 137 Potassium 3.7 Chloride 94 L Carbon Dioxide 27 Anion Gap 20 BUN 28 H Creatinine 1.8 H Est GFR ( Amer) 35 Est GFR (Non-Af Amer) 29 POC Glucose (mg/dL) 116 H Random Glucose 81 Lactic Acid Calcium 8.1 L Total Bilirubin 1.0 AST 25 ALT 25 Alkaline Phosphatase 67 Total Protein 6.2 L Albumin 2.9 L Globulin 3.3 Albumin/Globulin Ratio 0.9 L 06/01/17 06/01/17 06/02/17 09:29 10:02 06:40 WBC 11.3 H RBC 3.04 L Hgb 8.9 L Hct 27.1 L MCV 89.0 MCH 29.2 MCHC 32.9 L RDW 20.4 H Plt Count 167 MPV 8.0 Neut % (Auto) 69.1 Lymph % (Auto) 16.0 L [place] % (Auto) 6.5 Eos % (Auto) 7.7 H Baso % (Auto) 0.7 Neut # 7.8 H Lymph # 1.8 [place] # 0.7 Eos # 0.9 H Baso # 0.1 Sodium Potassium Chloride Carbon Dioxide Anion Gap BUN Creatinine Est GFR ( Amer) Est GFR (Non-Af Amer) POC Glucose (mg/dL) 147 H Random Glucose Lactic Acid 1.1 Calcium Total Bilirubin AST ALT Alkaline Phosphatase Total Protein Albumin Globulin Albumin/Globulin Ratio Review of Systems - Constitutional Constitutional: absent: Fever, Chills, Sweats - EENT Eyes: absent: Change in Vision - Cardiovascular Cardiovascular: absent: Chest Pain - Respiratory Respiratory: absent: Cough, Dyspnea - Gastrointestinal Gastrointestinal: absent: Abdominal Pain, Constipation, Diarrhea - Genitourinary Genitourinary: absent: Dysuria - Musculoskeletal Musculoskeletal: Back Pain - Integumentary Integumentary: Skin Ulcer, Sores - Neurological Neurological: absent: Confusion Assessment/Plan - Assessment and Plan (Free Text) Assessment: 62 year old F with morbid obesity admitted for decubitis ulcers here in the ICU for hypotension. Cardiovascular: hypotensive - dopomine drip - NS 100 cc/hr - - con't home med apixaban 5mg po bid - con't home med ranolazine 500 mg po bid - con't home med rosuvastatin 20mg po hs - con't home med aspirin 81mg po daily MSK: decubitis ulcers - unstageable ~5 cm decubitis ulcer in right mid-back - stage 3 ~5cm decubitis ulcer in right gluteal area - stage 4 ~8cm decubitis ulcer between gluteal folds - [facility] care nurse, Tre Alcazar, on board - - con't home med collagenase 1gm top - con't home med gabapentin 300mg po tid ID: leukocytosis - ID, Dr Ornelas, on board - meropenem 1gm iv q8 - pip/tazo 3.375gm iv q6 - Ur Cx negative Pulmonary: hx of obstructive sleep apnea - con't home med duoneb - con't home med tiotropium 18 mcg inh rq24 Psychiatry: hx of depression, hx of anxiety - con't home med escitalopram 5mg po daily - con't home med pramipexole 0.25mg po hs Nephro: - Nephro, Dr Vicente, consulted Prophylaxis: GI: famotidine 20mg po bid DVT: on apixaban 5mg po bid; contraindications for SCDs - peripheral ischemia/ edema of leg <Howard Quiñones - Last Filed: 06/02/17 16:05> CCU Objective - Vital Signs / Intake & Output Vital Signs (Last 4 hours): Vital Signs Pulse Resp BP Pulse Ox 06/02/17 15:00 97 H 19 109/81 99 06/02/17 14:00 98 H 21 92/40 L 99 06/02/17 13:00 99 H 19 92/40 L 99 Intake and Output (Last 8hrs): Intake & Output 06/02/17 06/02/17 06/02/17 06:59 14:59 22:59 Intake Total 1606.8 1177.5 200 Output Total 800 510 Balance 806.8 667.5 200 Intake: IV 250 Intake, IV Amount 1056.8 957.5 200 Left Distal Port PICC 256.8 157.5 Left Proximal Port PICC 800 800 200 Oral 300 220 Output: Urine 800 510 Urethral (Colmenares) 800 510 Other: # Bowel Movements 0 0 - Medications Active Medications: Active Medications Generic Name Dose Route Start Last Admin Trade Name Sam PRN Reason Stop Dose Admin Albuterol/Ipratropium 3 ml 05/30/17 20:00 06/02/17 14:13 Duoneb 3 Mg/0.5 Mg (3 Ml) Ud INH Not Given RQ6 RIK Apixaban 5 mg 05/30/17 18:00 06/02/17 09:57 Eliquis PO 5 mg BID RIK Administration Aspirin 81 mg 05/30/17 16:00 06/02/17 09:55 Ecotrin PO 81 mg DAILY RIK Administration Collagenase 1 gm 05/31/17 10:00 06/02/17 10:00 Santyl TOP 1 applic DAILY RIK Administration Dicyclomine HCl 10 mg 05/30/17 14:29 Bentyl PO QID PRN ABDOMINAL CRAMPING Docusate Sodium 100 mg 05/30/17 18:00 06/02/17 13:10 Colace PO 100 mg TID RIK Administration Emollient Ointment 5 gm 05/30/17 14:29 Vaseline Oint TOP BID PRN Dry skin Escitalopram Oxalate 5 mg 05/30/17 16:00 06/02/17 10:00 Lexapro PO 5 mg DAILY RIK Administration Famotidine 20 mg 05/30/17 18:00 06/02/17 09:55 Pepcid PO 20 mg BID RIK Administration Gabapentin 300 mg 05/30/17 18:00 06/02/17 13:14 Neurontin PO 300 mg TID RIK Administration Home Med 1 tab 06/03/17 10:00 Patient's Own Medication PO DAILY RIK Dopamine HCl/Dextrose 400 mg in 250 mls @ 8.097 mls/hr 06/01/17 10:13 03:48 Dopamine 400mg/250ml D5w IV 6.94 mcg/kg/min .Q24H PRN 28.092 mls/hr TITRATE PER MD ORDER Administration Protocol 2 MCG/KG/MIN Meropenem 1 gm/ Sodium 100 mls @ 100 mls/hr 06/01/17 12:00 06/02/17 13:00 Chloride IVPB 100 mls/hr Q8H RIK Administration Sodium Chloride 1,000 mls @ 100 mls/hr 06/01/17 14:30 09/13/17 13:23 Sodium Chloride 0.9% IV 100 mls/hr .Q10H RIK Administration Potassium Chloride 20 meq 05/30/17 16:00 06/02/17 09:59 K-Dur 20 Meq Er Tab PO 20 meq DAILY RIK Administration Pramipexole Dihydrochloride 0.25 mg 06/01/17 18:00 06/01/17 22:00 Mirapex PO Not Given HS RIK Ranolazine 500 mg 05/30/17 18:00 06/02/17 10:00 Ranexa PO 500 mg BID RIK Administration Rosuvastatin Calcium 20 mg 05/30/17 22:00 06/01/17 21:25 Crestor PO 20 mg HS RIK Administration Saccharomyces Boulardii 250 mg 05/30/17 18:00 06/02/17 09:55 Florastor PO 250 mg BID RIK Administration Tiotropium Walker 18 mcg 05/30/17 16:00 06/02/17 15:03 Spiriva INH Not Given RQ24 RIK - Patient Studies Lab Studies: Microbiology Studies 06/01/17 12:30 Blood Culture - Preliminary Blood-Venous NO GROWTH AFTER 24 HOURS 06/01/17 12:00 Blood Culture - Preliminary Blood-Venous NO GROWTH AFTER 24 HOURS 06/01/17 13:30 Urine Culture - Final Urine,Colmenares No Growth (<1,000 CFU/ML) Lab Studies 06/02/17 06/02/17 Range/Units 06:40 06:36 WBC 11.3 H (4.8-10.8) K/uL RBC 3.04 L (3.80-5.20) Mil/uL Hgb 8.9 L (11.0-16.0) g/dL Hct 27.1 L (34.0-47.0) % MCV 89.0 (81.0-99.0) fL MCH 29.2 (27.0-31.0) pg MCHC 32.9 L (33.0-37.0) g/dL RDW 20.4 H (11.5-14.5) % Plt Count 167 (130-400) K/uL MPV 8.0 (7.2-11.7) fL Neut % (Auto) 69.1 (50.0-75.0) % Lymph % (Auto) 16.0 L (20.0-40.0) % [place] % (Auto) 6.5 (0.0-10.0) % Eos % (Auto) 7.7 H (0.0-4.0) % Baso % (Auto) 0.7 (0.0-2.0) % Neut # 7.8 H (1.8-7.0) K/uL Lymph # 1.8 (1.0-4.3) K/uL [place] # 0.7 (0.0-0.8) K/uL Eos # 0.9 H (0.0-0.7) K/uL Baso # 0.1 (0.0-0.2) K/uL Sodium 137 (132-148) mmol/L Potassium 2.9 L (3.6-5.2) mmol/L Chloride 100 (98-107) mmol/L Carbon Dioxide 25 (22-30) mmol/L Anion Gap 15 (10-20) BUN 18 H (7-17) mg/dL Creatinine 0.9 (0.7-1.2) MG/DL Est GFR ( Amer) > 60 Est GFR (Non-Af Amer) > 60 Random Glucose 84 (65-105) mg/dL Calcium 8.5 L (8.6-10.4) mg/dl Phosphorus 3.7 (2.5-4.5) mg/dL Magnesium 1.7 (1.6-2.3) mg/dL Total Bilirubin 0.6 (0.2-1.3) mg/dL AST 22 (14-36) U/L ALT 31 (9-52) U/L Alkaline Phosphatase 60 (38-126) U/L Total Protein 5.7 L (6.3-8.3) g/dL Albumin 2.6 L (3.5-5.0) g/dL Globulin 3.1 (2.2-3.9) gm/dL Albumin/Globulin Ratio 0.8 L (1.0-2.1) Laboratory Results - last 24 hr 06/02/17 06/02/17 06:36 06:40 WBC 11.3 H RBC 3.04 L Hgb 8.9 L Hct 27.1 L MCV 89.0 MCH 29.2 MCHC 32.9 L RDW 20.4 H Plt Count 167 MPV 8.0 Neut % (Auto) 69.1 Lymph % (Auto) 16.0 L [place] % (Auto) 6.5 Eos % (Auto) 7.7 H Baso % (Auto) 0.7 Neut # 7.8 H Lymph # 1.8 [place] # 0.7 Eos # 0.9 H Baso # 0.1 Sodium 137 Potassium 2.9 L Chloride 100 Carbon Dioxide 25 Anion Gap 15 BUN 18 H Creatinine 0.9 Est GFR ( Amer) > 60 Est GFR (Non-Af Amer) > 60 Random Glucose 84 Calcium 8.5 L Phosphorus 3.7 Magnesium 1.7 Total Bilirubin 0.6 AST 22 ALT 31 Alkaline Phosphatase 60 Total Protein 5.7 L Albumin 2.6 L Globulin 3.1 Albumin/Globulin Ratio 0.8 L Attending/Attestation - Attestation I have personally seen and examined this patient.: Yes I have fully participated in the care of the patient.: Yes I have reviewed all pertinent clinical information: Yes Notes (Text): 06/02/17 16:04 Patient seen and examined in the intensive care unit. Case discussed with house staff in the morning rounds. Remains on pressors Continue antibiotics Good urine output with normalization of renal function Taper off pressors as tolerated Follow-up culture and sensitivity
[2017-06-02] MEDS ORDERED: Potassium Chloride 20 mEq ER Tab PO ONE ×2 (09:30→14:00)
[2017-06-02] MEDS: Saccharomyces Boulardi 250 mg Cap PO SCH ×2 (09:55→17:47)
[2017-06-02] MEDS: Potassium Chloride 20 mEq ER Tab PO SCH (09:59)
[2017-06-02] MEDS ORDERED: Potassium Chloride 20 mEq ER Tab PO SCH (10:00)
[2017-06-02] MEDS: Collagenase 250 Units/gm Ointment(30 gm) TOP SCH (10:00)
[2017-06-02] MEDS: Ranolazine 500 mg Extended Release Tablets PO SCH ×2 (10:00→17:47)
[2017-06-02] MEDS ORDERED: HYDROmorphone 0.5 mg/0.5 ml ISec IVP STA (10:03)
[2017-06-02] MEDS: Tiotropium 18 mcg Cap For Inhalation INH SCH (15:03)
--- NOTE | 2017-06-02 16:18 | CP.PCM.PN ---
Subjective - Date & Time of Evaluation Date of Evaluation: 06/02/17 Time of Evaluation: 10:00 - Subjective Subjective: afeb alert nad wound care and iv rx in progress Objective - Vital Signs/Intake and Output Vital Signs (last 24 hours): Temp Pulse Resp BP Pulse Ox 97.3 F L 90 20 109/61 99 06/02/17 16:00 06/02/17 16:00 06/02/17 16:00 06/02/17 16:00 06/02/17 16:00 Intake and Output: 06/02/17 06/02/17 06:59 18:59 Intake Total 2747.2 1377.5 Output Total 1290 510 Balance 1457.2 867.5 - Medications Medications: Current Medications Albuterol/Ipratropium (Duoneb 3 Mg/0.5 Mg (3 Ml) Ud) 3 ml INH RQ6 [facility] Last Admin: 06/02/17 14:13 Dose: Not Given Apixaban (Eliquis) 5 mg PO BID [facility] Last Admin: 06/02/17 09:57 Dose: 5 mg Aspirin (Ecotrin) 81 mg PO DAILY [facility] Last Admin: 06/02/17 09:55 Dose: 81 mg Collagenase (Santyl) 1 gm TOP DAILY [facility] Last Admin: 06/02/17 10:00 Dose: 1 applic Dicyclomine HCl (Bentyl) 10 mg PO QID PRN PRN Reason: ABDOMINAL CRAMPING Docusate Sodium (Colace) 100 mg PO TID [facility] Last Admin: 06/02/17 13:10 Dose: 100 mg Emollient Ointment (Vaseline Oint) 5 gm TOP BID PRN PRN Reason: Dry skin Escitalopram Oxalate (Lexapro) 5 mg PO DAILY [facility] Last Admin: 06/02/17 10:00 Dose: 5 mg Famotidine (Pepcid) 20 mg PO BID [facility] Last Admin: 06/02/17 09:55 Dose: 20 mg Gabapentin (Neurontin) 300 mg PO TID [facility] Last Admin: 06/02/17 13:14 Dose: 300 mg Home Med (Patient's Own Medication) 1 tab PO DAILY [facility] Dopamine HCl/Dextrose (Dopamine 400mg/250ml D5w) 400 mg in 250 mls @ 8.097 mls/ hr IV .Q24H PRN; Protocol; 2 MCG/KG/MIN PRN Reason: TITRATE PER MD ORDER Last Admin: 06/02/17 03:48 Dose: 6.94 mcg/kg/min, 28.092 mls/hr Meropenem 1 gm/ Sodium (Chloride) 100 mls @ 100 mls/hr IVPB Q8H [facility] Last Admin: 06/02/17 13:00 Dose: 100 mls/hr Sodium Chloride (Sodium Chloride 0.9%) 1,000 mls @ 100 mls/hr IV .Q10H [facility] Last Admin: 06/02/17 13:23 Dose: 100 mls/hr Potassium Chloride (K-Dur 20 Meq Er Tab) 20 meq PO DAILY [facility] Last Admin: 06/02/17 09:59 Dose: 20 meq Pramipexole Dihydrochloride (Mirapex) 0.25 mg PO [facility] Last Admin: 06/01/17 22:00 Dose: Not Given Ranolazine (Ranexa) 500 mg PO BID [facility] Last Admin: 06/02/17 10:00 Dose: 500 mg Rosuvastatin Calcium (Crestor) 20 mg PO [facility] Last Admin: 06/01/17 21:25 Dose: 20 mg Saccharomyces Boulardii (Florastor) 250 mg PO BID [facility] Last Admin: 06/02/17 09:55 Dose: 250 mg Tiotropium [place] (Spiriva) 18 mcg INH RQ24 [facility] Last Admin: 06/02/17 15:03 Dose: Not Given - Labs Labs: 06/02/17 06:40 06/02/17 06:36 - Constitutional Appears: Non-toxic, Chronically Ill - Head Exam Head Exam: NORMOCEPHALIC - Eye Exam Eye Exam: PERRL - ENT Exam ENT Exam: Mucous Membranes Dry - Neck Exam Neck Exam: absent: Lymphadenopathy - Respiratory Exam Respiratory Exam: Decreased Breath Sounds - Cardiovascular Exam Cardiovascular Exam: REGULAR RHYTHM - GI/Abdominal Exam GI & Abdominal Exam: Distended, Soft - Rectal Exam Rectal Exam: Deferred Assessment and Plan - Assessment and Plan (Free Text) Plan: om sacrum sepsis hx GBS
[2017-06-02] MEDS: HYDROmorphone 0.5 mg/0.5 ml ISec IVP PRN ×2 (16:45→20:45)
--- NOTE | 2017-06-02 19:00 | CP.PCM.PN ---
Subjective - Date & Time of Evaluation Date of Evaluation: 06/02/17 Time of Evaluation: 14:40 - Subjective Subjective: clinically same Objective - Vital Signs/Intake and Output Vital Signs (last 24 hours): Temp Pulse Resp BP Pulse Ox 97.3 F L 89 20 93/50 L 99 06/02/17 16:00 06/02/17 18:00 06/02/17 18:00 06/02/17 18:00 06/02/17 18:00 Intake and Output: 06/02/17 06/02/17 06:59 18:59 Intake Total 2747.2 1677.5 Output Total 1290 1561 Balance 1457.2 116.5 - Medications Medications: Current Medications Albuterol/Ipratropium (Duoneb 3 Mg/0.5 Mg (3 Ml) Ud) 3 ml INH RQ6 [facility] Last Admin: 06/02/17 14:13 Dose: Not Given Apixaban (Eliquis) 5 mg PO BID [facility] Last Admin: 06/02/17 17:47 Dose: 5 mg Aspirin (Ecotrin) 81 mg PO DAILY [facility] Last Admin: 06/02/17 09:55 Dose: 81 mg Collagenase (Santyl) 1 gm TOP DAILY [facility] Last Admin: 06/02/17 10:00 Dose: 1 applic Dicyclomine HCl (Bentyl) 10 mg PO QID PRN PRN Reason: ABDOMINAL CRAMPING Docusate Sodium (Colace) 100 mg PO TID [facility] Last Admin: 06/02/17 17:03 Dose: Not Given Emollient Ointment (Vaseline Oint) 5 gm TOP BID PRN PRN Reason: Dry skin Escitalopram Oxalate (Lexapro) 5 mg PO DAILY [facility] Last Admin: 06/02/17 10:00 Dose: 5 mg Famotidine (Pepcid) 20 mg PO BID [facility] Last Admin: 06/02/17 17:50 Dose: 20 mg Gabapentin (Neurontin) 300 mg PO TID [facility] Last Admin: 06/02/17 17:50 Dose: 300 mg Home Med (Patient's Own Medication) 1 tab PO DAILY [facility] Hydromorphone HCl (Dilaudid) 0.5 mg IVP Q2H PRN PRN Reason: Pain, severe (8-10) Last Admin: 06/02/17 16:45 Dose: 0.5 mg Dopamine HCl/Dextrose (Dopamine 400mg/250ml D5w) 400 mg in 250 mls @ 8.097 mls/ hr IV .Q24H PRN; Protocol; 2 MCG/KG/MIN PRN Reason: TITRATE PER MD ORDER Last Titration: 06/02/17 15:00 Dose: 0 mcg/kg/min, 0 mls/hr Meropenem 1 gm/ Sodium (Chloride) 100 mls @ 100 mls/hr IVPB Q8H [facility] Last Admin: 06/02/17 13:00 Dose: 100 mls/hr Sodium Chloride (Sodium Chloride 0.9%) 1,000 mls @ 100 mls/hr IV .Q10H [facility] Last Admin: 06/02/17 13:23 Dose: 100 mls/hr Potassium Chloride (K-Dur 20 Meq Er Tab) 20 meq PO DAILY [facility] Last Admin: 06/02/17 09:59 Dose: 20 meq Pramipexole Dihydrochloride (Mirapex) 0.25 mg PO [facility] Last Admin: 06/01/17 22:00 Dose: Not Given Ranolazine (Ranexa) 500 mg PO BID [facility] Last Admin: 06/02/17 17:47 Dose: 500 mg Rosuvastatin Calcium (Crestor) 20 mg PO [facility] Last Admin: 06/01/17 21:25 Dose: 20 mg Saccharomyces Boulardii (Florastor) 250 mg PO BID [facility] Last Admin: 06/02/17 17:47 Dose: 250 mg Tiotropium [place] (Spiriva) 18 mcg INH RQ24 [facility] Last Admin: 06/02/17 15:03 Dose: Not Given - Labs Labs: 06/02/17 06:40 06/02/17 06:36 - Constitutional Appears: Well - Head Exam Head Exam: ATRAUMATIC, NORMAL INSPECTION, NORMOCEPHALIC - Eye Exam Eye Exam: EOMI, Normal appearance, PERRL Pupil Exam: NORMAL ACCOMODATION, PERRL - ENT Exam ENT Exam: Mucous Membranes Moist, Normal Exam - Neck Exam Neck Exam: Full ROM, Normal Inspection. absent: Lymphadenopathy - Respiratory Exam Respiratory Exam: Decreased Breath Sounds - Cardiovascular Exam Cardiovascular Exam: REGULAR RHYTHM, +S1, +S2 - GI/Abdominal Exam GI & Abdominal Exam: Soft, Diminished Bowel Sounds - Rectal Exam Rectal Exam: Deferred
[2017-06-03] MEDS: Sodium Chloride 0.9% 1,000 ML IV SCH ×4 (00:30→17:50)
[2017-06-03] MEDS: Albuterol-Ipratrop 3 mg / 0.5 (3 ml) UD INH SCH ×4 (01:42→21:11)
[2017-06-03] MEDS: HYDROmorphone 0.5 mg/0.5 ml ISec IVP PRN ×5 (02:51→22:00)
[2017-06-03 06:13] LABS: BASO # 0.1 K/uL (0.0-0.2); BASO % 0.7 % (0.0-2.0); EOS # 0.6 K/uL (0.0-0.7); EOS % 7.1 % (0.0-4.0); LYMPH # 1.8 K/uL (1.0-4.3); LYMPH % 20.1 % (20.0-40.0); MEAN CELL VOLUME 91.1 fL (81.0-99.0); MEAN CORPUSCULAR HEMOGLOBIN 29.8 pg (27.0-31.0); MEAN CORPUSCULAR HGB CONC 32.7 g/dL (33.0-37.0); MEAN PLATELET VOLUME 8.2 fL (7.2-11.7); MONO # 0.7 K/uL (0.0-0.8); MONO % 7.7 % (0.0-10.0); RED CELL DISTRIBUTION WIDTH 21.3 % (11.5-14.5)
[2017-06-03 06:28] LABS: CHLORIDE 108 mmol/L (98-107); POTASSIUM 4.3 mmol/L (3.6-5.2); SODIUM 143 mmol/L (132-148)
[2017-06-03 06:30] LABS: ALB/GLOB RATIO 0.8 (1.0-2.1); AST/SGOT 24 U/L (14-36); BILIRUBIN,TOTAL 0.4 mg/dL (0.2-1.3); CARBON DIOXIDE 27 mmol/L (22-30); GFR AFRICAN-AMERICAN > 60; TOTAL PROTEIN 5.4 g/dL (6.3-8.3)
[2017-06-03 06:31] LABS: ALKALINE PHOSPHATASE 57 U/L (38-126); ALT/SGPT 28 U/L (9-52); BLOOD UREA NITROGEN 17 mg/dL (7-17); CALCIUM 8.2 mg/dl (8.6-10.4); GLUCOSE,RANDOM 77 mg/dL (65-105); MAGNESIUM 1.6 mg/dL (1.6-2.3); PHOSPHOROUS 3.1 mg/dL (2.5-4.5)
[2017-06-03] MEDS: Tiotropium 18 mcg Cap For Inhalation INH SCH (08:12)
--- NOTE | 2017-06-03 09:10 | CP.CCUPN ---
<Hema Burch R - Last Filed: 06/03/17 19:49> CCU Subjective - Physician Review Subjective (Free Text): Patient seen and examined at bedside. Alert, responsive, in no acute distress. Back pain controlled well with pain meds. Denies all other prompts on ROS. 06/03/17 19:49 CCU Objective - Vital Signs / Intake & Output Vital Signs (Last 4 hours): Vital Signs Temp Pulse Resp BP Pulse Ox 06/03/17 08:00 98.1 F 87 18 129/68 100 06/03/17 07:00 85 18 109/63 99 06/03/17 06:00 84 18 109/63 100 Intake and Output (Last 8hrs): Intake & Output 06/02/17 06/03/17 06/03/17 22:59 06:59 14:59 Intake Total 900 1200 200 Output Total 756 255 Balance 144 945 200 Intake: IV 100 Intake, IV Amount 800 800 200 Left Proximal Port PICC 800 800 200 Oral 400 Output: Urine 755 255 Urethral (Colmenares) 755 255 Stool 1 - Physical Exam Head: Positive for: Atraumatic, Normocephalic Pupils: Positive for: PERRL Extroacular Muscles: Positive for: EOMI Mouth: Positive for: Moist Mucous Membranes Respiratory/Chest: Positive for: Clear to Auscultation, Decreased Breath Sounds , Other (decreased breath sounds 2/2 body habitus) Cardiovascular: Positive for: Regular Rate and Rhythm, Normal S1, S2 Abdomen: Positive for: Normal Bowel Sounds. Negative for: Tenderness Lower Extremity: Positive for: Edema Skin: Positive for: Other (unstageable ~5 cm decubitis ulcer in right mid-back; stage 3 ~5cm decubitis ulcer in right gluteal area; stage 4 ~8cm decubitis ulcer between gluteal folds) Psychiatric: Positive for: Alert, Oriented x 3 - Medications Active Medications: Active Medications Generic Name Dose Route Start Last Admin Trade Name Freq PRN Reason Stop Dose Admin Albuterol/Ipratropium 3 ml 05/30/17 20:00 06/03/17 08:12 Duoneb 3 Mg/0.5 Mg (3 Ml) Ud INH Not Given RQ6 RIK Apixaban 5 mg 05/30/17 18:00 06/02/17 17:47 Eliquis PO 5 mg BID RIK Administration Aspirin 81 mg 05/30/17 16:00 06/02/17 09:55 Ecotrin PO 81 mg DAILY RIK Administration Collagenase 1 gm 05/31/17 10:00 06/02/17 10:00 Santyl TOP 1 applic DAILY RIK Administration Dicyclomine HCl 10 mg 05/30/17 14:29 Bentyl PO QID PRN ABDOMINAL CRAMPING Docusate Sodium 100 mg 05/30/17 18:00 06/02/17 17:03 Colace PO Not Given TID RIK Emollient Ointment 5 gm 05/30/17 14:29 Vaseline Oint TOP BID PRN Dry skin Escitalopram Oxalate 5 mg 05/30/17 16:00 06/02/17 10:00 Lexapro PO 5 mg DAILY RIK Administration Famotidine 20 mg 05/30/17 18:00 06/02/17 17:50 Pepcid PO 20 mg BID RIK Administration Gabapentin 300 mg 05/30/17 18:00 06/02/17 17:50 Neurontin PO 300 mg TID RIK Administration Home Med 1 tab 06/03/17 10:00 Patient's Own Medication PO DAILY RIK Hydromorphone HCl 0.5 mg 06/02/17 16:24 06/03/17 02:51 Dilaudid IVP 0.5 mg Q2H PRN Administration Pain, severe (8-10) Dopamine HCl/Dextrose 400 mg in 250 mls @ 8.097 mls/hr 06/01/17 10:13 15:00 Dopamine 400mg/250ml D5w IV 0 mcg/kg/min .Q24H PRN 0 mls/hr TITRATE PER MD ORDER Titration Protocol 2 MCG/KG/MIN Meropenem 1 gm/ Sodium 100 mls @ 100 mls/hr 06/01/17 12:00 06/03/17 03:15 Chloride IVPB 100 mls/hr Q8H RIK Administration Sodium Chloride 1,000 mls @ 100 mls/hr 06/01/17 14:30 06/03/17 02:54 Sodium Chloride 0.9% IV 100 mls/hr .Q10H RIK Administration Potassium Chloride 20 meq 05/30/17 16:00 06/02/17 09:59 K-Dur 20 Meq Er Tab PO 20 meq DAILY RIK Administration Potassium Chloride 20 meq 06/03/17 10:00 K-Dur 20 Meq Er Tab PO DAILY [facility] Pramipexole Dihydrochloride 0.25 mg 06/01/17 18:00 06/02/17 21:37 Mirapex PO 0.25 mg HS RIK Administration Ranolazine 500 mg 05/30/17 18:00 06/02/17 17:47 Ranexa PO 500 mg BID RIK Administration Rosuvastatin Calcium 20 mg 05/30/17 22:00 06/02/17 22:00 Crestor PO Not Given HS RIK Saccharomyces Boulardii 250 mg 05/30/17 18:00 06/02/17 17:47 Florastor PO 250 mg BID RIK Administration Tiotropium [place] 18 mcg 05/30/17 16:00 06/03/17 08:12 Spiriva INH Not Given RQ24 RIK - Patient Studies Lab Studies: Microbiology Studies 06/01/17 12:53 MRSA Culture (Admit) - Final Nose 06/01/17 12:30 Blood Culture - Preliminary Blood-Venous NO GROWTH AFTER 24 HOURS 06/01/17 12:00 Blood Culture - Preliminary Blood-Venous NO GROWTH AFTER 24 HOURS 06/01/17 13:30 Urine Culture - Final Urine,Colmenares No Growth (<1,000 CFU/ML) Lab Studies 06/03/17 06/03/17 Range/Units 06:02 06:02 WBC 9.0 (4.8-10.8) K/uL RBC 2.74 L (3.80-5.20) Mil/uL Hgb 8.2 L (11.0-16.0) g/dL Hct 25.0 L (34.0-47.0) % MCV 91.1 D (81.0-99.0) fL MCH 29.8 (27.0-31.0) pg MCHC 32.7 L (33.0-37.0) g/dL RDW 21.3 H (11.5-14.5) % Plt Count 131 (130-400) K/uL MPV 8.2 (7.2-11.7) fL Neut % (Auto) 64.4 (50.0-75.0) % Lymph % (Auto) 20.1 (20.0-40.0) % [place] % (Auto) 7.7 (0.0-10.0) % Eos % (Auto) 7.1 H (0.0-4.0) % Baso % (Auto) 0.7 (0.0-2.0) % Neut # 5.8 (1.8-7.0) K/uL Lymph # 1.8 (1.0-4.3) K/uL [place] # 0.7 (0.0-0.8) K/uL Eos # 0.6 (0.0-0.7) K/uL Baso # 0.1 (0.0-0.2) K/uL Sodium 143 (132-148) mmol/L Potassium 4.3 (3.6-5.2) mmol/L Chloride 108 H (98-107) mmol/L Carbon Dioxide 27 (22-30) mmol/L Anion Gap 12 (10-20) BUN 17 (7-17) mg/dL Creatinine 0.9 (0.7-1.2) MG/DL Est GFR ( Amer) > 60 Est GFR (Non-Af Amer) > 60 Random Glucose 77 (65-105) mg/dL Calcium 8.2 L (8.6-10.4) mg/dl Phosphorus 3.1 (2.5-4.5) mg/dL Magnesium 1.6 (1.6-2.3) mg/dL Total Bilirubin 0.4 (0.2-1.3) mg/dL AST 24 (14-36) U/L ALT 28 (9-52) U/L Alkaline Phosphatase 57 (38-126) U/L Total Protein 5.4 L (6.3-8.3) g/dL Albumin 2.4 L (3.5-5.0) g/dL Globulin 3.0 (2.2-3.9) gm/dL Albumin/Globulin Ratio 0.8 L (1.0-2.1) Laboratory Results - last 24 hr 06/03/17 06/03/17 06:02 06:02 WBC 9.0 RBC 2.74 L Hgb 8.2 L Hct 25.0 L MCV 91.1 D MCH 29.8 MCHC 32.7 L RDW 21.3 H Plt Count 131 MPV 8.2 Neut % (Auto) 64.4 Lymph % (Auto) 20.1 [place] % (Auto) 7.7 Eos % (Auto) 7.1 H Baso % (Auto) 0.7 Neut # 5.8 Lymph # 1.8 [place] # 0.7 Eos # 0.6 Baso # 0.1 Sodium 143 Potassium 4.3 Chloride 108 H Carbon Dioxide 27 Anion Gap 12 BUN 17 Creatinine 0.9 Est GFR ( Amer) > 60 Est GFR (Non-Af Amer) > 60 Random Glucose 77 Calcium 8.2 L Phosphorus 3.1 Magnesium 1.6 Total Bilirubin 0.4 AST 24 ALT 28 Alkaline Phosphatase 57 Total Protein 5.4 L Albumin 2.4 L Globulin 3.0 Albumin/Globulin Ratio 0.8 L Review of Systems - Constitutional Constitutional: absent: Fever, Chills, Weakness - Cardiovascular Cardiovascular: UNREMARKABLE - Respiratory Respiratory: UNREMARKABLE - Gastrointestinal Gastrointestinal: UNREMARKABLE - Genitourinary Genitourinary: UNREMARKABLE - Musculoskeletal Musculoskeletal: Back Pain - Neurological Neurological: UNREMARKABLE Assessment/Plan - Assessment and Plan (Free Text) Assessment: 62 year old F with morbid obesity admitted for decubitis ulcers here in the ICU for hypotension. Today 06/03/17 Hemodynamically stable, discontinued dopamine. Patient with loose BMs, will check stool for c diff and discontinued colace. Added dilaudid 0.5mg q4 prn for pain 2/2 DTI's. Cardiovascular: hypotensive - NS 100 cc/hr - - con't home med apixaban 5mg po bid - con't home med ranolazine 500 mg po bid - con't home med rosuvastatin 20mg po hs - con't home med aspirin 81mg po daily MSK: decubitis ulcers - unstageable ~5 cm decubitis ulcer in right mid-back - stage 3 ~5cm decubitis ulcer in right gluteal area - stage 4 ~8cm decubitis ulcer between gluteal folds - would care nurse, Tre Alcazar, on board - dilaudid iv 0.5mg q4 prn for pain - - con't home med collagenase 1gm top - con't home med gabapentin 300mg po tid ID: leukocytosis - ID, Dr Ornelas, on board - meropenem 1gm iv q8 - pip/tazo 3.375gm iv q6 - Ur Cx negative - f/u c diff Pulmonary: hx of obstructive sleep apnea - con't home med duoneb - con't home med tiotropium 18 mcg inh rq24 Psychiatry: hx of depression, hx of anxiety - con't home med escitalopram 5mg po daily - con't home med pramipexole 0.25mg po hs Nephro: - Nephro, Dr Vicente, consulted Prophylaxis: GI: famotidine 20mg po bid DVT: on apixaban 5mg po bid; contraindications for SCDs - peripheral ischemia/ edema of leg <Latef,Martinez M - Last Filed: 06/05/17 10:09> CCU Objective - Vital Signs / Intake & Output Vital Signs (Last 4 hours): Vital Signs Temp Pulse Resp BP Pulse Ox 06/05/17 07:51 98.2 F 06/05/17 07:30 93 H 16 95 06/05/17 07:09 91 H 15 108/62 97 06/05/17 07:00 90 16 96 06/05/17 06:30 88 17 95 06/05/17 06:10 93 H 17 97/64 L 80 L Intake and Output (Last 8hrs): Intake & Output 06/04/17 06/05/17 06/05/17 22:59 06:59 14:59 Intake Total 835 Output Total 950 Balance -115 Intake: Intake, IV Amount 325 Left Proximal Port PICC 325 Oral 510 Output: Urine 950 Urethral (Colmenares) 950 - Medications Active Medications: Active Medications Generic Name Dose Route Start Last Admin Trade Name Freq PRN Reason Stop Dose Admin Apixaban 5 mg 05/30/17 18:00 06/04/17 17:18 Eliquis PO 5 mg BID RIK Administration Aspirin 81 mg 05/30/17 16:00 06/04/17 10:38 Ecotrin PO 81 mg DAILY RIK Administration Clonazepam 1 mg 06/05/17 18:00 Klonopin PO Q12H RIK Collagenase 1 gm 05/31/17 10:00 06/04/17 11:07 Santyl TOP 1 applic DAILY RIK Administration Dicyclomine HCl 10 mg 05/30/17 14:29 Bentyl PO QID PRN ABDOMINAL CRAMPING Emollient Ointment 5 gm 05/30/17 14:29 Vaseline Oint TOP BID PRN Dry skin Escitalopram Oxalate 5 mg 05/30/17 16:00 06/04/17 10:38 Lexapro PO 5 mg DAILY RIK Administration Famotidine 20 mg 05/30/17 18:00 06/04/17 17:17 Pepcid PO 20 mg BID RIK Administration Gabapentin 300 mg 05/30/17 18:00 06/04/17 17:17 Neurontin PO 300 mg TID RIK Administration Home Med 1 tab 06/03/17 10:00 06/04/17 10:38 Patient's Own Medication PO 1 tab DAILY RIK Administration Hydromorphone/Sodium Chloride 4 mg 06/04/17 13:37 06/04/17 14:46 Dilaud[address] Shuttle Route Vehicle Operator IV 4 mg Q4H PRN Administration Pain, moderate (4-7) Protocol Meropenem 1 gm/ Sodium 100 mls @ 100 mls/hr 06/01/17 12:00 06/05/17 04:20 Chloride IVPB 100 mls/hr Q8H RIK Administration Sodium Chloride 1,000 mls @ 75 mls/hr 06/04/17 17:00 06/05/17 04:28 Sodium Chloride 0.9% IV 75 mls/hr .[id number] RIK Administration Potassium Chloride 20 meq 05/30/17 16:00 06/04/17 10:38 K-Dur 20 Meq Er Tab PO 20 meq DAILY RIK Administration Pramipexole Dihydrochloride 0.25 mg 06/01/17 18:00 06/04/17 22:14 Mirapex PO 0.25 mg HS RIK Administration Ranolazine 500 mg 05/30/17 18:00 06/04/17 17:17 Ranexa PO 500 mg BID RIK Administration Rosuvastatin Calcium 20 mg 05/30/17 22:00 06/05/17 04:20 Crestor PO 20 mg HS RIK Administration Saccharomyces Boulardii 250 mg 05/30/17 18:00 06/04/17 17:18 Florastor PO 250 mg BID RIK Administration Tiotropium [place] 18 mcg 05/30/17 16:00 06/04/17 08:20 Spiriva INH Not Given RQ24 RIK - Patient Studies Lab Studies: Microbiology Studies 06/01/17 12:30 Blood Culture - Preliminary Blood-Venous NO GROWTH AFTER 3 DAYS 06/01/17 12:00 Blood Culture - Preliminary Blood-Venous NO GROWTH AFTER 3 DAYS Attending/Attestation - Attestation I have personally seen and examined this patient.: Yes I have fully participated in the care of the patient.: Yes I have reviewed all pertinent clinical information: Yes Notes (Text): Today: May The Patient was seen and examined at the bedside, Medical records reviewed, and management issues were discussed and formulated with the house staff. Pain issues, skin care, head of the bed elevation, glycemic control were addressed. I have reviewed all the relevant clinical, laboratory, hemodynamic, radiographic data and medications I concur with resident's History & Physical exam, assessment and plan of care as transcribed in Dr. Burch note.
[2017-06-03] MEDS: Saccharomyces Boulardi 250 mg Cap PO SCH ×2 (09:35→17:18)
[2017-06-03] MEDS: Potassium Chloride 20 mEq ER Tab PO SCH (09:35)
[2017-06-03] MEDS: ROPINIROLE 1 MG PO SCH (09:36)
[2017-06-03] MEDS: Ranolazine 500 mg Extended Release Tablets PO SCH ×2 (09:36→17:19)
[2017-06-03] MEDS: Collagenase 250 Units/gm Ointment(30 gm) TOP SCH (09:39)
[2017-06-03] MEDS ORDERED: Potassium Chloride 20 mEq ER Tab PO SCH (10:00)
--- NOTE | 2017-06-03 16:34 | CP.PCM.PN ---
Subjective - Date & Time of Evaluation Date of Evaluation: 06/03/17 Time of Evaluation: 11:20 - Subjective Subjective: patient seen and examined. 62-year-old female transferred to ICU for hypotension Awake responsive in no distress Afebrile On pressors Objective - Vital Signs/Intake and Output Vital Signs (last 24 hours): Temp Pulse Resp BP Pulse Ox 96.8 F L 89 17 157/76 H 96 06/03/17 16:00 06/03/17 16:00 06/03/17 16:00 06/03/17 16:00 06/03/17 16:00 Intake and Output: 06/03/17 06/03/17 06:59 18:59 Intake Total 1600 1000 Output Total 380 Balance 1220 1000 - Medications Medications: Current Medications Albuterol/Ipratropium (Duoneb 3 Mg/0.5 Mg (3 Ml) Ud) 3 ml INH RQ6 [facility] Last Admin: 06/03/17 14:14 Dose: Not Given Apixaban (Eliquis) 5 mg PO BID [facility] Last Admin: 06/03/17 09:37 Dose: 5 mg Aspirin (Ecotrin) 81 mg PO DAILY [facility] Last Admin: 06/03/17 09:35 Dose: 81 mg Collagenase (Santyl) 1 gm TOP DAILY [facility] Last Admin: 06/03/17 09:39 Dose: 1 applic Dicyclomine HCl (Bentyl) 10 mg PO QID PRN PRN Reason: ABDOMINAL CRAMPING Emollient Ointment (Vaseline Oint) 5 gm TOP BID PRN PRN Reason: Dry skin Escitalopram Oxalate (Lexapro) 5 mg PO DAILY [facility] Last Admin: 06/03/17 09:38 Dose: 5 mg Famotidine (Pepcid) 20 mg PO BID [facility] Last Admin: 06/03/17 09:35 Dose: 20 mg Gabapentin (Neurontin) 300 mg PO TID [facility] Last Admin: 06/03/17 15:00 Dose: 300 mg Home Med (Patient's Own Medication) 1 tab PO DAILY [facility] Last Admin: 06/03/17 09:36 Dose: 1 tab Hydromorphone HCl (Dilaudid) 0.5 mg IVP Q4H PRN PRN Reason: Pain, severe (8-10) Last Admin: 06/03/17 12:35 Dose: 0.5 mg Meropenem 1 gm/ Sodium (Chloride) 100 mls @ 100 mls/hr IVPB Q8H [facility] Last Admin: 06/03/17 12:24 Dose: 100 mls/hr Sodium Chloride (Sodium Chloride 0.9%) 1,000 mls @ 100 mls/hr IV .Q10H [facility] Last Admin: 06/03/17 12:28 Dose: 100 mls/hr Potassium Chloride (K-Dur 20 Meq Er Tab) 20 meq PO DAILY [facility] Last Admin: 06/03/17 09:35 Dose: 20 meq Pramipexole Dihydrochloride (Mirapex) 0.25 mg PO HS [facility] Last Admin: 06/02/17 21:37 Dose: 0.25 mg Ranolazine (Ranexa) 500 mg PO BID [facility] Last Admin: 06/03/17 09:36 Dose: 500 mg Rosuvastatin Calcium (Crestor) 20 mg PO HS [facility] Last Admin: 06/02/17 22:00 Dose: Not Given Saccharomyces Boulardii (Florastor) 250 mg PO BID [facility] Last Admin: 06/03/17 09:35 Dose: 250 mg Tiotropium [place] (Spiriva) 18 mcg INH RQ24 [facility] Last Admin: 06/03/17 08:12 Dose: Not Given - Labs Labs: 06/03/17 06:02 06/03/17 06:02 - Head Exam Head Exam: ATRAUMATIC, NORMOCEPHALIC - Eye Exam Eye Exam: Normal appearance - ENT Exam ENT Exam: Mucous Membranes Moist - Neck Exam Neck Exam: Normal Inspection - Respiratory Exam Respiratory Exam: Decreased Breath Sounds - Cardiovascular Exam Cardiovascular Exam: REGULAR RHYTHM - GI/Abdominal Exam GI & Abdominal Exam: Soft, Normal Bowel Sounds - Extremities Exam Extremities Exam: Normal Inspection - Neurological Exam Neurological Exam: Awake Assessment and Plan (1) Decubitus ulcer Status: Acute (2) Hypotension Status: Acute (3) Sepsis Status: Acute (4) COPD (chronic obstructive pulmonary disease) Status: Chronic (5) OPHELIA (obstructive sleep apnea) Status: Chronic
--- NOTE | 2017-06-03 18:33 | CP.PCM.PN ---
Subjective - Date & Time of Evaluation Date of Evaluation: 06/03/17 Time of Evaluation: 09:00 - Subjective Subjective: afeb on pressors nad cultures pending Objective - Vital Signs/Intake and Output Vital Signs (last 24 hours): Temp Pulse Resp BP Pulse Ox 96.8 F L 90 19 147/80 95 06/03/17 16:00 06/03/17 18:00 06/03/17 18:00 06/03/17 18:00 06/03/17 18:00 Intake and Output: 06/03/17 06/03/17 06:59 18:59 Intake Total 1600 1200 Output Total 380 Balance 1220 1200 - Medications Medications: Current Medications Albuterol/Ipratropium (Duoneb 3 Mg/0.5 Mg (3 Ml) Ud) 3 ml INH RQ6 [facility] Last Admin: 06/03/17 14:14 Dose: Not Given Apixaban (Eliquis) 5 mg PO BID [facility] Last Admin: 06/03/17 17:17 Dose: 5 mg Aspirin (Ecotrin) 81 mg PO DAILY [facility] Last Admin: 06/03/17 09:35 Dose: 81 mg Collagenase (Santyl) 1 gm TOP DAILY [facility] Last Admin: 06/03/17 09:39 Dose: 1 applic Dicyclomine HCl (Bentyl) 10 mg PO QID PRN PRN Reason: ABDOMINAL CRAMPING Emollient Ointment (Vaseline Oint) 5 gm TOP BID PRN PRN Reason: Dry skin Escitalopram Oxalate (Lexapro) 5 mg PO DAILY [facility] Last Admin: 06/03/17 09:38 Dose: 5 mg Famotidine (Pepcid) 20 mg PO BID [facility] Last Admin: 06/03/17 17:19 Dose: 20 mg Gabapentin (Neurontin) 300 mg PO TID [facility] Last Admin: 06/03/17 17:16 Dose: 300 mg Home Med (Patient's Own Medication) 1 tab PO DAILY [facility] Last Admin: 06/03/17 09:36 Dose: 1 tab Hydromorphone HCl (Dilaudid) 0.5 mg IVP Q4H PRN PRN Reason: Pain, severe (8-10) Last Admin: 06/03/17 17:47 Dose: 0.5 mg Meropenem 1 gm/ Sodium (Chloride) 100 mls @ 100 mls/hr IVPB Q8H [facility] Last Admin: 06/03/17 12:24 Dose: 100 mls/hr Sodium Chloride (Sodium Chloride 0.9%) 1,000 mls @ 100 mls/hr IV .Q10H [facility] Last Admin: 06/03/17 17:50 Dose: Not Given Potassium Chloride (K-Dur 20 Meq Er Tab) 20 meq PO DAILY [facility] Last Admin: 06/03/17 09:35 Dose: 20 meq Pramipexole Dihydrochloride (Mirapex) 0.25 mg PO [facility] Last Admin: 06/02/17 21:37 Dose: 0.25 mg Ranolazine (Ranexa) 500 mg PO BID [facility] Last Admin: 06/03/17 17:19 Dose: 500 mg Rosuvastatin Calcium (Crestor) 20 mg PO [facility] Last Admin: 06/02/17 22:00 Dose: Not Given Saccharomyces Boulardii (Florastor) 250 mg PO BID [facility] Last Admin: 06/03/17 17:18 Dose: 250 mg Tiotropium [place] (Spiriva) 18 mcg INH RQ24 [facility] Last Admin: 06/03/17 08:12 Dose: Not Given - Labs Labs: 06/03/17 06:02 06/03/17 06:02 - Constitutional Appears: Non-toxic, Chronically Ill - Head Exam Head Exam: NORMOCEPHALIC - Eye Exam Eye Exam: PERRL - ENT Exam ENT Exam: Mucous Membranes Dry - Neck Exam Neck Exam: absent: Lymphadenopathy - Respiratory Exam Respiratory Exam: Decreased Breath Sounds - Cardiovascular Exam Cardiovascular Exam: REGULAR RHYTHM - GI/Abdominal Exam GI & Abdominal Exam: Distended, Soft - Rectal Exam Rectal Exam: Deferred - Exam Exam: NORMAL INSPECTION - Extremities Exam Extremities Exam: absent: Pedal Edema - Back Exam Back Exam: absent: CVA tenderness (L), CVA tenderness (R) Assessment and Plan (1) Decubitus ulcer Status: Acute (2) Intractable pain Status: Acute (3) Altered mental status Status: Acute (4) Hypotension Status: Acute - Assessment and Plan (Free Text) Assessment: cont iv rx
--- NOTE | 2017-06-03 20:39 | CP.PCM.PN ---
Subjective - Date & Time of Evaluation Date of Evaluation: 06/03/17 Time of Evaluation: 15:40 - Subjective Subjective: clinically same Objective - Vital Signs/Intake and Output Vital Signs (last 24 hours): Temp Pulse Resp BP Pulse Ox 96.8 F L 91 H 21 145/77 96 06/03/17 16:00 06/03/17 19:00 06/03/17 19:00 06/03/17 19:00 06/03/17 19:00 Intake and Output: 06/03/17 06/04/17 18:59 06:59 Intake Total 1200 100 Output Total 1190 100 Balance 10 0 - Medications Medications: Current Medications Albuterol/Ipratropium (Duoneb 3 Mg/0.5 Mg (3 Ml) Ud) 3 ml INH RQ6 [facility] Last Admin: 06/03/17 14:14 Dose: Not Given Apixaban (Eliquis) 5 mg PO BID [facility] Last Admin: 06/03/17 17:17 Dose: 5 mg Aspirin (Ecotrin) 81 mg PO DAILY [facility] Last Admin: 06/03/17 09:35 Dose: 81 mg Collagenase (Santyl) 1 gm TOP DAILY [facility] Last Admin: 06/03/17 09:39 Dose: 1 applic Dicyclomine HCl (Bentyl) 10 mg PO QID PRN PRN Reason: ABDOMINAL CRAMPING Emollient Ointment (Vaseline Oint) 5 gm TOP BID PRN PRN Reason: Dry skin Escitalopram Oxalate (Lexapro) 5 mg PO DAILY [facility] Last Admin: 06/03/17 09:38 Dose: 5 mg Famotidine (Pepcid) 20 mg PO BID [facility] Last Admin: 06/03/17 17:19 Dose: 20 mg Gabapentin (Neurontin) 300 mg PO TID [facility] Last Admin: 06/03/17 17:16 Dose: 300 mg Home Med (Patient's Own Medication) 1 tab PO DAILY [facility] Last Admin: 06/03/17 09:36 Dose: 1 tab Hydromorphone HCl (Dilaudid) 0.5 mg IVP Q4H PRN PRN Reason: Pain, severe (8-10) Last Admin: 06/03/17 17:47 Dose: 0.5 mg Meropenem 1 gm/ Sodium (Chloride) 100 mls @ 100 mls/hr IVPB Q8H [facility] Last Admin: 06/03/17 19:49 Dose: 100 mls/hr Sodium Chloride (Sodium Chloride 0.9%) 1,000 mls @ 100 mls/hr IV .Q10H [facility] Last Admin: 06/03/17 17:50 Dose: Not Given Potassium Chloride (K-Dur 20 Meq Er Tab) 20 meq PO DAILY [facility] Last Admin: 06/03/17 09:35 Dose: 20 meq Pramipexole Dihydrochloride (Mirapex) 0.25 mg PO HS [facility] Last Admin: 06/02/17 21:37 Dose: 0.25 mg Ranolazine (Ranexa) 500 mg PO BID [facility] Last Admin: 06/03/17 17:19 Dose: 500 mg Rosuvastatin Calcium (Crestor) 20 mg PO HS [facility] Last Admin: 06/02/17 22:00 Dose: Not Given Saccharomyces Boulardii (Florastor) 250 mg PO BID [facility] Last Admin: 06/03/17 17:18 Dose: 250 mg Tiotropium [place] (Spiriva) 18 mcg INH RQ24 [facility] Last Admin: 06/03/17 08:12 Dose: Not Given - Labs Labs: 06/03/17 06:02 06/03/17 06:02
[2017-06-04] MEDS: Sodium Chloride 0.9% 1,000 ML IV SCH ×4 (00:35→17:21)
[2017-06-04] MEDS: Albuterol-Ipratrop 3 mg / 0.5 (3 ml) UD INH SCH ×4 (01:34→20:59)
[2017-06-04] MEDS: HYDROmorphone 0.5 mg/0.5 ml ISec IVP PRN ×2 (04:42→09:28)
[2017-06-04 06:36] LABS: CHLORIDE 106 mmol/L (98-107); POTASSIUM 4.1 mmol/L (3.6-5.2); SODIUM 137 mmol/L (132-148)
[2017-06-04 06:38] LABS: AST/SGOT 24 U/L (14-36); BILIRUBIN,TOTAL 0.3 mg/dL (0.2-1.3); GFR AFRICAN-AMERICAN > 60
[2017-06-04 06:39] LABS: ALB/GLOB RATIO 0.8 (1.0-2.1); ALKALINE PHOSPHATASE 60 U/L (38-126); ALT/SGPT 27 U/L (9-52); BLOOD UREA NITROGEN 12 mg/dL (7-17); CALCIUM 8.7 mg/dl (8.6-10.4); CARBON DIOXIDE 25 mmol/L (22-30); GLUCOSE,RANDOM 70 mg/dL (65-105); PHOSPHOROUS 2.6 mg/dL (2.5-4.5); TOTAL PROTEIN 5.3 g/dL (6.3-8.3)
[2017-06-04 06:39] LABS: BASO # 0.1 K/uL (0.0-0.2); BASO % 0.6 % (0.0-2.0); EOS # 0.7 K/uL (0.0-0.7); EOS % 7.1 % (0.0-4.0); HEMATOCRIT 26.1 % (34.0-47.0); LYMPH # 2.3 K/uL (1.0-4.3); LYMPH % 24.2 % (20.0-40.0); MEAN CELL VOLUME 91.8 fL (81.0-99.0); MEAN CORPUSCULAR HEMOGLOBIN 30.1 pg (27.0-31.0); MEAN CORPUSCULAR HGB CONC 32.8 g/dL (33.0-37.0); MONO # 0.6 K/uL (0.0-0.8); MONO % 6.3 % (0.0-10.0); RED CELL DISTRIBUTION WIDTH 20.8 % (11.5-14.5); WHITE BLOOD COUNT 9.7 K/uL (4.8-10.8)
[2017-06-04 06:40] LABS: MAGNESIUM 1.5 mg/dL (1.6-2.3)
[2017-06-04] MEDS: Tiotropium 18 mcg Cap For Inhalation INH SCH (08:20)
[2017-06-04] MEDS: Potassium Chloride 20 mEq ER Tab PO SCH (10:38)
[2017-06-04] MEDS: ROPINIROLE 1 MG PO SCH (10:38)
[2017-06-04] MEDS: Ranolazine 500 mg Extended Release Tablets PO SCH ×2 (10:38→17:17)
[2017-06-04] MEDS: Saccharomyces Boulardi 250 mg Cap PO SCH ×2 (10:38→17:18)
[2017-06-04] MEDS ORDERED: Magnesium Sulfate 1 gm in D5W 1 GM/100 ML BAG IVPB ONE (11:00)
[2017-06-04] MEDS: Collagenase 250 Units/gm Ointment(30 gm) TOP SCH (11:07)
[2017-06-04] MEDS ORDERED: HYDROmorphone 0.5 mg/0.5 ml ISec IVP PRN (12:28)
--- NOTE | 2017-06-04 13:32 | CP.PCM.CON ---
History of Present Illness - History of Present Illness History of Present Illness: 62 yo female with severe pain from low back and sacral decubitis ulcer. PMH includes morbid obesity, probable OPHELIA, HTN, neuropathic pain, and depression. 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 Patient has been receiving dilaudid 0.5 mg IVP while in the ICU with only a brief period of relief. Patient states that she normally takes oxycodone 30 mg 4x/day, neurontin 300 mg PO TID, and clonazepam 2 mg TID. Review of Systems - Cardiovascular Cardiovascular: absent: Chest Pain - Respiratory Respiratory: absent: Dyspnea on Exertion - Musculoskeletal Musculoskeletal: Back Pain - Integumentary Integumentary: Skin Ulcer Past Patient History - Past Medical History & Family History Past Medical History?: Yes - Past Social History Smoking Status: Light Smoker < 10 Cigarettes Daily - CARDIAC Hx Hypercholesterolemia: Yes Hx Hypertension: Yes - PULMONARY Hx Pneumonia: Yes - NEUROLOGICAL Hx Neurological Disorder: No - HEENT Hx HEENT Problems: No - RENAL Hx Kidney Stones: Yes - ENDOCRINE/METABOLIC Hx Endocrine Disorders: No - HEMATOLOGICAL/ONCOLOGICAL Hx Blood Disorders: No - INTEGUMENTARY Other/Comment: Abdominal Fold reddened and weeping with foul smell. Sacral decubitus - MUSCULOSKELETAL/RHEUMATOLOGICAL Hx Arthritis: Yes (BACK PAIN; R HIP AND FOOT PAIN) - GASTROINTESTINAL Hx Gastrointestinal Disorders: No Hx Gall Bladder Disease: Yes - GENITOURINARY/GYNECOLOGICAL Hx Genitourinary Disorders: No - PSYCHIATRIC Hx Substance Use: No - SURGICAL HISTORY Hx Cholecystectomy: Yes - ANESTHESIA Hx Anesthesia: Yes Hx Anesthesia Reactions: No Hx Malignant Hyperthermia: No Meds Allergies/Adverse Reactions: Allergies Allergy/AdvReac Type Severity Reaction Status Date / Time No Known Allergies Allergy Verified 05/30/17 09:08 - Medications Medications: Current Medications Albuterol/Ipratropium (Duoneb 3 Mg/0.5 Mg (3 Ml) Ud) 3 ml INH RQ6 [facility] Last Admin: 06/04/17 08:20 Dose: Not Given Apixaban (Eliquis) 5 mg PO BID [facility] Last Admin: 06/04/17 10:38 Dose: 5 mg Aspirin (Ecotrin) 81 mg PO DAILY [facility] Last Admin: 06/04/17 10:38 Dose: 81 mg Collagenase (Santyl) 1 gm TOP DAILY [facility] Last Admin: 06/04/17 11:07 Dose: 1 applic Dicyclomine HCl (Bentyl) 10 mg PO QID PRN PRN Reason: ABDOMINAL CRAMPING Emollient Ointment (Vaseline Oint) 5 gm TOP BID PRN PRN Reason: Dry skin Escitalopram Oxalate (Lexapro) 5 mg PO DAILY [facility] Last Admin: 06/04/17 10:38 Dose: 5 mg Famotidine (Pepcid) 20 mg PO BID [facility] Last Admin: 06/04/17 10:38 Dose: 20 mg Gabapentin (Neurontin) 300 mg PO TID [facility] Last Admin: 06/04/17 10:38 Dose: 300 mg Home Med (Patient's Own Medication) 1 tab PO DAILY [facility] Last Admin: 06/04/17 10:38 Dose: 1 tab Hydromorphone/Sodium Chloride (Dilaudid Scrubber System Attendant) 6 mg IV Q4H PRN; Protocol PRN Reason: Pain, severe (8-10) Meropenem 1 gm/ Sodium (Chloride) 100 mls @ 100 mls/hr IVPB Q8H [facility] Last Admin: 06/04/17 12:37 Dose: 100 mls/hr Sodium Chloride (Sodium Chloride 0.9%) 1,000 mls @ 100 mls/hr IV .Q10H [facility] Last Admin: 06/04/17 12:37 Dose: 100 mls/hr Potassium Chloride (K-Dur 20 Meq Er Tab) 20 meq PO DAILY [facility] Last Admin: 06/04/17 10:38 Dose: 20 meq Pramipexole Dihydrochloride (Mirapex) 0.25 mg PO HS [facility] Last Admin: 06/03/17 21:26 Dose: 0.25 mg Ranolazine (Ranexa) 500 mg PO BID [facility] Last Admin: 06/04/17 10:38 Dose: 500 mg Rosuvastatin Calcium (Crestor) 20 mg PO HS [facility] Last Admin: 06/03/17 21:26 Dose: 20 mg Saccharomyces Boulardii (Florastor) 250 mg PO BID [facility] Last Admin: 06/04/17 10:38 Dose: 250 mg Tiotropium [place] (Spiriva) 18 mcg INH RQ24 [facility] Last Admin: 06/04/17 08:20 Dose: Not Given Physical Exam - Constitutional Additional comments: morbidly obese female, cooperative - Head Exam Head Exam: ATRAUMATIC - Respiratory Exam Respiratory Exam: NORMAL BREATHING PATTERN - Cardiovascular Exam Cardiovascular Exam: +S1, +S2 Results - Vital Signs Recent Vital Signs: Last Vital Signs Temp 98.4 F 06/04/17 12:44 Pulse 89 06/04/17 12:30 Resp 19 06/04/17 12:30 BP 154/88 H 06/04/17 11:55 Pulse Ox 98 06/04/17 09:30 - Labs Result Diagrams: 06/04/17 06:18 06/04/17 06:16 Labs: Laboratory Results - last 24 hr 06/04/17 06/04/17 06:16 06:18 WBC 9.7 RBC 2.84 L Hgb 8.6 L Hct 26.1 L MCV 91.8 MCH 30.1 MCHC 32.8 L RDW 20.8 H Plt Count 125 L MPV 8.0 Neut % (Auto) 61.8 Lymph % (Auto) 24.2 [place] % (Auto) 6.3 Eos % (Auto) 7.1 H Baso % (Auto) 0.6 Neut # 6.0 Lymph # 2.3 [place] # 0.6 Eos # 0.7 Baso # 0.1 Sodium 137 Potassium 4.1 Chloride 106 Carbon Dioxide 25 Anion Gap 10 BUN 12 Creatinine 0.6 L Est GFR ( Amer) > 60 Est GFR (Non-Af Amer) > 60 Random Glucose 70 Calcium 8.7 Phosphorus 2.6 Magnesium 1.5 L Total Bilirubin 0.3 AST 24 ALT 27 Alkaline Phosphatase 60 Total Protein 5.3 L Albumin 2.4 L Globulin 2.9 Albumin/Globulin Ratio 0.8 L Assessment & Plan - Assessment and Plan (Free Text) Assessment: 62 yo female with h/o chronic pain with severe pain from low back and new sacral decubitis ulcer. Plan: - diluadid INDEPENDENT PRODUCER 0.4/10/0/4 - tylenol PO PRN - continue neurontin - continue clonazepam
--- NOTE | 2017-06-04 16:08 | CP.PCM.PN ---
Subjective - Date & Time of Evaluation Date of Evaluation: 06/04/17 Time of Evaluation: 08:00 - Subjective Subjective: AWAKE ALERT ALL CULTURES NEG THUS FAR Objective - Vital Signs/Intake and Output Vital Signs (last 24 hours): Temp Pulse Resp BP Pulse Ox 98.4 F 101 H 14 150/81 78 L 06/04/17 12:44 06/04/17 13:58 06/04/17 13:58 06/04/17 13:58 06/04/17 13:58 Intake and Output: 06/04/17 06/04/17 06:59 18:59 Intake Total 1500 1470 Output Total 725 350 Balance 775 1120 - Medications Medications: Current Medications Albuterol/Ipratropium (Duoneb 3 Mg/0.5 Mg (3 Ml) Ud) 3 ml INH RQ6 [facility] Last Admin: 06/04/17 14:49 Dose: Not Given Apixaban (Eliquis) 5 mg PO BID [facility] Last Admin: 06/04/17 10:38 Dose: 5 mg Aspirin (Ecotrin) 81 mg PO DAILY [facility] Last Admin: 06/04/17 10:38 Dose: 81 mg Clonazepam (Klonopin) 1 mg PO Q12H [facility] Collagenase (Santyl) 1 gm TOP DAILY [facility] Last Admin: 06/04/17 11:07 Dose: 1 applic Dicyclomine HCl (Bentyl) 10 mg PO QID PRN PRN Reason: ABDOMINAL CRAMPING Emollient Ointment (Vaseline Oint) 5 gm TOP BID PRN PRN Reason: Dry skin Escitalopram Oxalate (Lexapro) 5 mg PO DAILY [facility] Last Admin: 06/04/17 10:38 Dose: 5 mg Famotidine (Pepcid) 20 mg PO BID [facility] Last Admin: 06/04/17 10:38 Dose: 20 mg Gabapentin (Neurontin) 300 mg PO TID [facility] Last Admin: 06/04/17 13:50 Dose: 300 mg Home Med (Patient's Own Medication) 1 tab PO DAILY [facility] Last Admin: 06/04/17 10:38 Dose: 1 tab Hydromorphone/Sodium Chloride (Dilaudid Hand Coke Drawer) 4 mg IV Q4H PRN; Protocol PRN Reason: Pain, moderate (4-7) Last Admin: 06/04/17 14:46 Dose: 4 mg Meropenem 1 gm/ Sodium (Chloride) 100 mls @ 100 mls/hr IVPB Q8H [facility] Last Admin: 06/04/17 12:37 Dose: 100 mls/hr Potassium Chloride (K-Dur 20 Meq Er Tab) 20 meq PO DAILY [facility] Last Admin: 06/04/17 10:38 Dose: 20 meq Pramipexole Dihydrochloride (Mirapex) 0.25 mg PO HS [facility] Last Admin: 06/03/17 21:26 Dose: 0.25 mg Ranolazine (Ranexa) 500 mg PO BID [facility] Last Admin: 06/04/17 10:38 Dose: 500 mg Rosuvastatin Calcium (Crestor) 20 mg PO HS [facility] Last Admin: 06/03/17 21:26 Dose: 20 mg Saccharomyces Boulardii (Florastor) 250 mg PO BID [facility] Last Admin: 06/04/17 10:38 Dose: 250 mg Tiotropium [place] (Spiriva) 18 mcg INH RQ24 [facility] Last Admin: 06/04/17 08:20 Dose: Not Given - Labs Labs: 06/04/17 06:18 06/04/17 06:16 - Constitutional Appears: Non-toxic, Chronically Ill - Head Exam Head Exam: NORMOCEPHALIC - Eye Exam Eye Exam: PERRL. absent: Scleral icterus - ENT Exam ENT Exam: Mucous Membranes Dry - Neck Exam Neck Exam: absent: Lymphadenopathy - Respiratory Exam Respiratory Exam: Decreased Breath Sounds - Cardiovascular Exam Cardiovascular Exam: REGULAR RHYTHM - GI/Abdominal Exam GI & Abdominal Exam: Distended, Soft - Rectal Exam Rectal Exam: Deferred - Exam Exam: NORMAL INSPECTION - Extremities Exam Extremities Exam: absent: Calf Tenderness, Pedal Edema - Back Exam Back Exam: absent: CVA tenderness (L), CVA tenderness (R) Assessment and Plan (1) Decubitus ulcer Status: Acute (2) Intractable pain Status: Acute (3) Altered mental status Status: Acute (4) Hypotension Status: Acute - Assessment and Plan (Free Text) Assessment: CONT RX OM SACRUM 62 yo female with severe pain from low back and sacral decubitis ulcer. PMH includes morbid obesity, probable OPHELIA, HTN, neuropathic pain, and depression. 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
--- NOTE | 2017-06-04 18:39 | CP.PCM.PN ---
Subjective - Date & Time of Evaluation Date of Evaluation: 06/04/17 Time of Evaluation: 13:20 - Subjective Subjective: clinically same Objective - Vital Signs/Intake and Output Vital Signs (last 24 hours): Temp Pulse Resp BP Pulse Ox 98.9 F 97 H 20 160/80 H 95 06/04/17 16:00 06/04/17 18:07 06/04/17 18:07 06/04/17 18:07 06/04/17 18:00 Intake and Output: 06/04/17 06/04/17 06:59 18:59 Intake Total 1500 1940 Output Total 725 350 Balance 775 1590 - Medications Medications: Current Medications Albuterol/Ipratropium (Duoneb 3 Mg/0.5 Mg (3 Ml) Ud) 3 ml INH RQ6 [facility] Last Admin: 06/04/17 14:49 Dose: Not Given Apixaban (Eliquis) 5 mg PO BID [facility] Last Admin: 06/04/17 17:18 Dose: 5 mg Aspirin (Ecotrin) 81 mg PO DAILY [facility] Last Admin: 06/04/17 10:38 Dose: 81 mg Clonazepam (Klonopin) 1 mg PO Q12H [facility] Last Admin: 06/04/17 16:09 Dose: 1 mg Collagenase (Santyl) 1 gm TOP DAILY [facility] Last Admin: 06/04/17 11:07 Dose: 1 applic Dicyclomine HCl (Bentyl) 10 mg PO QID PRN PRN Reason: ABDOMINAL CRAMPING Emollient Ointment (Vaseline Oint) 5 gm TOP BID PRN PRN Reason: Dry skin Escitalopram Oxalate (Lexapro) 5 mg PO DAILY [facility] Last Admin: 06/04/17 10:38 Dose: 5 mg Famotidine (Pepcid) 20 mg PO BID [facility] Last Admin: 06/04/17 17:17 Dose: 20 mg Gabapentin (Neurontin) 300 mg PO TID [facility] Last Admin: 06/04/17 17:17 Dose: 300 mg Home Med (Patient's Own Medication) 1 tab PO DAILY [facility] Last Admin: 06/04/17 10:38 Dose: 1 tab Hydromorphone/Sodium Chloride (Dilaudid Fire Protection Designer) 4 mg IV Q4H PRN; Protocol PRN Reason: Pain, moderate (4-7) Last Admin: 09/15/17 14:46 Dose: 4 mg Meropenem 1 gm/ Sodium (Chloride) 100 mls @ 100 mls/hr IVPB Q8H [facility] Last Admin: 06/04/17 12:37 Dose: 100 mls/hr Sodium Chloride (Sodium Chloride 0.9%) 1,000 mls @ 75 mls/hr IV .[id number] [facility] Last Admin: 06/04/17 17:21 Dose: Not Given Potassium Chloride (K-Dur 20 Meq Er Tab) 20 meq PO DAILY [facility] Last Admin: 06/04/17 10:38 Dose: 20 meq Pramipexole Dihydrochloride (Mirapex) 0.25 mg PO HS [facility] Last Admin: 06/03/17 21:26 Dose: 0.25 mg Ranolazine (Ranexa) 500 mg PO BID [facility] Last Admin: 06/04/17 17:17 Dose: 500 mg Rosuvastatin Calcium (Crestor) 20 mg PO HS [facility] Last Admin: 06/03/17 21:26 Dose: 20 mg Saccharomyces Boulardii (Florastor) 250 mg PO BID [facility] Last Admin: 06/04/17 17:18 Dose: 250 mg Tiotropium [place] (Spiriva) 18 mcg INH RQ24 [facility] Last Admin: 06/04/17 08:20 Dose: Not Given - Labs Labs: 06/04/17 06:18 06/04/17 06:16 - Constitutional Appears: Well - Head Exam Head Exam: ATRAUMATIC, NORMAL INSPECTION, NORMOCEPHALIC - Eye Exam Eye Exam: EOMI, Normal appearance, PERRL Pupil Exam: NORMAL ACCOMODATION, PERRL - ENT Exam ENT Exam: Mucous Membranes Moist, Normal Exam - Neck Exam Neck Exam: Full ROM, Normal Inspection. absent: Lymphadenopathy - Respiratory Exam Respiratory Exam: Decreased Breath Sounds - Cardiovascular Exam Cardiovascular Exam: REGULAR RHYTHM, +S1, +S2 - GI/Abdominal Exam GI & Abdominal Exam: Soft, Diminished Bowel Sounds - Rectal Exam Rectal Exam: Deferred
[2017-06-05] MEDS: Sodium Chloride 0.9% 1,000 ML IV SCH ×2 (04:28→22:55)
[2017-06-05] MEDS: ROPINIROLE 1 MG PO SCH (11:00)
[2017-06-05] MEDS: Potassium Chloride 20 mEq ER Tab PO SCH (11:00)
[2017-06-05] MEDS: Saccharomyces Boulardi 250 mg Cap PO SCH ×2 (11:00→17:53)
[2017-06-05] MEDS: Ranolazine 500 mg Extended Release Tablets PO SCH ×2 (11:00→17:53)
--- NOTE | 2017-06-05 15:40 | CP.PCM.PN ---
Subjective - Date & Time of Evaluation Date of Evaluation: 06/05/17 Time of Evaluation: 13:00 - Subjective Subjective: clinically same Objective - Vital Signs/Intake and Output Vital Signs (last 24 hours): Temp Pulse Resp BP Pulse Ox 98 F 98 H 19 130/65 97 06/05/17 13:00 06/05/17 15:00 06/05/17 15:00 06/05/17 14:08 06/05/17 14:08 Intake and Output: 06/05/17 06/05/17 06:59 18:59 Intake Total 160 Output Total 100 Balance 60 - Medications Medications: Current Medications Apixaban (Eliquis) 5 mg PO BID [facility] Last Admin: 06/05/17 11:00 Dose: 5 mg Aspirin (Ecotrin) 81 mg PO DAILY [facility] Last Admin: 06/05/17 11:00 Dose: 81 mg Clonazepam (Klonopin) 1 mg PO Q12H [facility] 234 [facility] Collagenase (Santyl) 1 gm TOP DAILY [facility] Last Admin: 06/04/17 11:07 Dose: 1 applic Dicyclomine HCl (Bentyl) 10 mg PO QID PRN PRN Reason: ABDOMINAL CRAMPING Last Admin: 06/05/17 11:54 Dose: 10 mg Emollient Ointment (Vaseline Oint) 5 gm TOP BID PRN PRN Reason: Dry skin Escitalopram Oxalate (Lexapro) 5 mg PO DAILY [facility] Last Admin: 06/05/17 11:00 Dose: 5 mg Famotidine (Pepcid) 20 mg PO BID [facility] Last Admin: 06/05/17 11:00 Dose: 20 mg Gabapentin (Neurontin) 300 mg PO TID [facility] Last Admin: 06/05/17 14:41 Dose: 300 mg Home Med (Patient's Own Medication) 1 tab PO DAILY [facility] Last Admin: 06/05/17 11:00 Dose: 1 tab Hydromorphone/Sodium Chloride (Dilaudid Foundry Metallurgist) 4 mg IV Q4H PRN; Protocol PRN Reason: Pain, moderate (4-7) Last Admin: 06/04/17 14:46 Dose: 4 mg Meropenem 1 gm/ Sodium (Chloride) 100 mls @ 100 mls/hr IVPB Q8H [facility] Last Admin: 06/05/17 11:57 Dose: 100 mls/hr Sodium Chloride (Sodium Chloride 0.9%) 1,000 mls @ 75 mls/hr IV .[id number] [facility] 234 [facility] Last Admin: 06/05/17 04:28 Dose: 75 mls/hr Potassium Chloride (K-Dur 20 Meq Er Tab) 20 meq PO DAILY [facility] Last Admin: 06/05/17 11:00 Dose: 20 meq Pramipexole Dihydrochloride (Mirapex) 0.25 mg PO [facility] Last Admin: 06/04/17 22:14 Dose: 0.25 mg Ranolazine (Ranexa) 500 mg PO BID [facility] Last Admin: 06/05/17 11:00 Dose: 500 mg Rosuvastatin Calcium (Crestor) 20 mg PO HS [facility] Last Admin: 06/05/17 04:20 Dose: 20 mg Saccharomyces Boulardii (Florastor) 250 mg PO BID [facility] Last Admin: 06/05/17 11:00 Dose: 250 mg Tiotropium [place] (Spiriva) 18 mcg INH RQ24 [facility] Last Admin: 06/04/17 08:20 Dose: Not Given - Labs Labs: 06/04/17 06:18 06/04/17 06:16 - Constitutional Appears: Well - Head Exam Head Exam: ATRAUMATIC, NORMAL INSPECTION, NORMOCEPHALIC - Eye Exam Eye Exam: EOMI, Normal appearance, PERRL Pupil Exam: NORMAL ACCOMODATION, PERRL - ENT Exam ENT Exam: Mucous Membranes Moist, Normal Exam - Neck Exam Neck Exam: Full ROM, Normal Inspection. absent: Lymphadenopathy - Respiratory Exam Respiratory Exam: Decreased Breath Sounds - Cardiovascular Exam Cardiovascular Exam: REGULAR RHYTHM, +S1, +S2 - GI/Abdominal Exam GI & Abdominal Exam: Soft, Diminished Bowel Sounds - Rectal Exam Rectal Exam: Deferred
[2017-06-05] MEDS ORDERED: HYDROmorphone 1 mg/ml ISec IVP PRN (17:02)
[2017-06-06] MEDS: Tiotropium 18 mcg Cap For Inhalation INH SCH (07:47)
[2017-06-06] MEDS: Sodium Chloride 0.9% 1,000 ML IV SCH ×3 (09:00→23:00)
[2017-06-06] MEDS: Collagenase 250 Units/gm Ointment(30 gm) TOP SCH (10:44)
[2017-06-06] MEDS: Potassium Chloride 20 mEq ER Tab PO SCH (10:48)
[2017-06-06] MEDS: Saccharomyces Boulardi 250 mg Cap PO SCH ×2 (10:49→19:25)
[2017-06-06] MEDS: ROPINIROLE 1 MG PO SCH (10:52)
[2017-06-06] MEDS: Ranolazine 500 mg Extended Release Tablets PO SCH ×2 (11:15→19:24)
--- NOTE | 2017-06-06 15:41 | CP.PCM.PN ---
Subjective - Date & Time of Evaluation Date of Evaluation: 06/06/17 Time of Evaluation: 08:00 - Subjective Subjective: AFEBRILE ALERT NAD IV RX IN PROGRESS Objective - Vital Signs/Intake and Output Vital Signs (last 24 hours): Temp Pulse Resp BP Pulse Ox 98.5 F 95 H 20 109/58 L 94 L 06/06/17 07:00 06/06/17 07:00 06/06/17 07:00 06/06/17 07:00 06/06/17 07:00 Intake and Output: 06/06/17 06/06/17 06:59 18:59 Output Total 950 Balance -950 - Medications Medications: Current Medications Apixaban (Eliquis) 5 mg PO BID [facility] Last Admin: 06/06/17 10:50 Dose: 5 mg Aspirin (Ecotrin) 81 mg PO DAILY [facility] Last Admin: 06/06/17 10:48 Dose: 81 mg Clonazepam (Klonopin) 1 mg PO Q12H [facility] Last Admin: 06/06/17 05:05 Dose: 1 mg Collagenase (Santyl) 1 gm TOP DAILY [facility] Last Admin: 06/06/17 10:44 Dose: 1 applic Dicyclomine HCl (Bentyl) 10 mg PO QID PRN PRN Reason: ABDOMINAL CRAMPING Last Admin: 06/05/17 11:54 Dose: 10 mg Emollient Ointment (Vaseline Oint) 5 gm TOP BID PRN PRN Reason: Dry skin Escitalopram Oxalate (Lexapro) 5 mg PO DAILY [facility] Last Admin: 06/06/17 10:50 Dose: 5 mg Famotidine (Pepcid) 20 mg PO BID [facility] Last Admin: 06/06/17 10:48 Dose: 20 mg Gabapentin (Neurontin) 300 mg PO TID [facility] Last Admin: 06/06/17 14:23 Dose: 300 mg Home Med (Patient's Own Medication) 1 tab PO DAILY [facility] Last Admin: 06/06/17 10:52 Dose: 1 tab Hydromorphone HCl (Dilaudid) 1 mg IVP Q3H PRN PRN Reason: Pain, moderate (4-7) Meropenem 1 gm/ Sodium (Chloride) 100 mls @ 100 mls/hr IVPB Q8H [facility] Last Admin: 06/06/17 12:14 Dose: 100 mls/hr Sodium Chloride (Sodium Chloride 0.9%) 1,000 mls @ 75 mls/hr IV .[id number] [facility] Last Admin: 06/06/17 09:00 Dose: Not Given Potassium Chloride (K-Dur 20 Meq Er Tab) 20 meq PO DAILY [facility] Last Admin: 06/06/17 10:48 Dose: 20 meq Pramipexole Dihydrochloride (Mirapex) 0.25 mg PO HS [facility] Last Admin: 06/05/17 21:47 Dose: 0.25 mg Ranolazine (Ranexa) 500 mg PO BID [facility] Last Admin: 06/06/17 11:15 Dose: 500 mg Rosuvastatin Calcium (Crestor) 20 mg PO HS [facility] Last Admin: 06/05/17 21:47 Dose: 20 mg Saccharomyces Boulardii (Florastor) 250 mg PO BID [facility] Last Admin: 06/06/17 10:49 Dose: 250 mg Tiotropium [place] (Spiriva) 18 mcg INH RQ24 [facility] Last Admin: 06/06/17 07:47 Dose: Not Given - Labs Labs: 06/04/17 06:18 06/04/17 06:16 - Constitutional Appears: Non-toxic, Chronically Ill - Head Exam Head Exam: NORMOCEPHALIC - Eye Exam Eye Exam: PERRL. absent: Scleral icterus - ENT Exam ENT Exam: Mucous Membranes Dry, Normal External Ear Exam - Neck Exam Neck Exam: absent: Lymphadenopathy - Respiratory Exam Respiratory Exam: Decreased Breath Sounds, Clear to Ausculation Bilateral - Cardiovascular Exam Cardiovascular Exam: REGULAR RHYTHM - GI/Abdominal Exam GI & Abdominal Exam: Distended, Soft. absent: Tenderness - Rectal Exam Rectal Exam: Deferred - Exam Exam: NORMAL INSPECTION - Extremities Exam Extremities Exam: absent: Pedal Edema - Back Exam Back Exam: absent: CVA tenderness (L), CVA tenderness (R) - Neurological Exam Neurological Exam: Alert, Awake, Oriented x3 - Psychiatric Exam Psychiatric exam: Depressed - Skin Skin Exam: Dry, Intact Assessment and Plan (1) Decubitus ulcer Status: Acute (2) Intractable pain Status: Acute (3) Altered mental status Status: Acute (4) Hypotension Status: Acute - Assessment and Plan (Free Text) Assessment: CONT IV RX
--- NOTE | 2017-06-06 19:46 | CP.PCM.PN ---
Subjective - Date & Time of Evaluation Date of Evaluation: 06/06/17 Time of Evaluation: 10:00 - Subjective Subjective: clinically same Objective - Vital Signs/Intake and Output Vital Signs (last 24 hours): Temp Pulse Resp BP Pulse Ox 97.6 F 99 H 20 120/79 95 06/06/17 15:00 06/06/17 15:00 06/06/17 15:00 06/06/17 15:00 06/06/17 15:00 Intake and Output: 06/06/17 06/07/17 18:59 06:59 Intake Total 1080 Output Total 700 Balance 380 - Medications Medications: Current Medications Apixaban (Eliquis) 5 mg PO BID [facility] Last Admin: 06/06/17 19:24 Dose: 5 mg Aspirin (Ecotrin) 81 mg PO DAILY [facility] Last Admin: 06/06/17 10:48 Dose: 81 mg Clonazepam (Klonopin) 1 mg PO Q12H [facility] Last Admin: 06/06/17 05:05 Dose: 1 mg Collagenase (Santyl) 1 gm TOP DAILY [facility] Last Admin: 06/06/17 10:44 Dose: 1 applic Dicyclomine HCl (Bentyl) 10 mg PO QID PRN PRN Reason: ABDOMINAL CRAMPING Last Admin: 06/05/17 11:54 Dose: 10 mg Emollient Ointment (Vaseline Oint) 5 gm TOP BID PRN PRN Reason: Dry skin Escitalopram Oxalate (Lexapro) 5 mg PO DAILY [facility] Last Admin: 06/06/17 10:50 Dose: 5 mg Famotidine (Pepcid) 20 mg PO BID [facility] Last Admin: 06/06/17 19:25 Dose: 20 mg Gabapentin (Neurontin) 300 mg PO TID [facility] Last Admin: 06/06/17 19:25 Dose: 300 mg Home Med (Patient's Own Medication) 1 tab PO DAILY [facility] Last Admin: 06/06/17 10:52 Dose: 1 tab Hydromorphone HCl (Dilaudid) 1 mg IVP Q3H PRN PRN Reason: Pain, moderate (4-7) Last Admin: 06/06/17 16:53 Dose: 1 mg Meropenem 1 gm/ Sodium (Chloride) 100 mls @ 100 mls/hr IVPB Q8H [facility] Last Admin: 06/06/17 12:14 Dose: 100 mls/hr Sodium Chloride (Sodium Chloride 0.9%) 1,000 mls @ 75 mls/hr IV .[id number] [facility] Last Admin: 06/06/17 09:00 Dose: Not Given Potassium Chloride (K-Dur 20 Meq Er Tab) 20 meq PO DAILY [facility] Last Admin: 06/06/17 10:48 Dose: 20 meq Pramipexole Dihydrochloride (Mirapex) 0.25 mg PO HS [facility] Last Admin: 06/05/17 21:47 Dose: 0.25 mg Ranolazine (Ranexa) 500 mg PO BID [facility] Last Admin: 06/06/17 19:24 Dose: 500 mg Rosuvastatin Calcium (Crestor) 20 mg PO HS [facility] Last Admin: 06/05/17 21:47 Dose: 20 mg Saccharomyces Boulardii (Florastor) 250 mg PO BID [facility] Last Admin: 06/06/17 19:25 Dose: 250 mg Tiotropium [place] (Spiriva) 18 mcg INH RQ24 [facility] Last Admin: 06/06/17 07:47 Dose: Not Given - Labs Labs: 06/04/17 06:18 06/04/17 06:16 - Constitutional Appears: Well - Head Exam Head Exam: ATRAUMATIC, NORMAL INSPECTION, NORMOCEPHALIC - Eye Exam Eye Exam: EOMI, Normal appearance, PERRL - ENT Exam ENT Exam: Mucous Membranes Moist, Normal Exam - Neck Exam Neck Exam: Full ROM, Normal Inspection. absent: Lymphadenopathy - Respiratory Exam Respiratory Exam: Decreased Breath Sounds - Cardiovascular Exam Cardiovascular Exam: REGULAR RHYTHM, +S1, +S2. absent: Murmur - GI/Abdominal Exam GI & Abdominal Exam: Diminished Bowel Sounds - Rectal Exam Rectal Exam: Deferred
[2017-06-07 08:52] LABS: BASO # 0.1 K/uL (0.0-0.2); BASO % 0.7 % (0.0-2.0); EOS # 0.5 K/uL (0.0-0.7); EOS % 4.7 % (0.0-4.0); HEMATOCRIT 26.4 % (34.0-47.0); LYMPH # 1.9 K/uL (1.0-4.3); LYMPH % 18.5 % (20.0-40.0); MEAN CELL VOLUME 91.8 fL (81.0-99.0); MEAN CORPUSCULAR HEMOGLOBIN 29.7 pg (27.0-31.0); MEAN CORPUSCULAR HGB CONC 32.3 g/dL (33.0-37.0); MEAN PLATELET VOLUME 7.9 fL (7.2-11.7); MONO # 0.5 K/uL (0.0-0.8); NRBC % 0.1 % (0.0-2.0); RED CELL DISTRIBUTION WIDTH 20.5 % (11.5-14.5)
[2017-06-07] MEDS: Tiotropium 18 mcg Cap For Inhalation INH SCH (08:58)
[2017-06-07 09:05] LABS: BLOOD UREA NITROGEN 7 mg/dL (7-17); CALCIUM 8.5 mg/dl (8.6-10.4); CARBON DIOXIDE 28 mmol/L (22-30); CHLORIDE 105 mmol/L (98-107); GFR AFRICAN-AMERICAN > 60; GLUCOSE,RANDOM 79 mg/dL (65-105); PHOSPHOROUS 2.9 mg/dL (2.5-4.5); POTASSIUM 3.8 mmol/L (3.6-5.2); SODIUM 141 mmol/L (132-148); TOTAL PROTEIN 5.3 g/dL (6.3-8.3)
[2017-06-07 09:06] LABS: ALB/GLOB RATIO 0.8 (1.0-2.1); ALKALINE PHOSPHATASE 67 U/L (38-126); ALT/SGPT 26 U/L (9-52); AST/SGOT 27 U/L (14-36); BILIRUBIN,TOTAL 0.3 mg/dL (0.2-1.3)
--- NOTE | 2017-06-07 09:50 | CP.PCM.PN ---
Subjective - Date & Time of Evaluation Date of Evaluation: 06/07/17 Time of Evaluation: 07:10 - Subjective Subjective: PGY2 Resident - Medicine Progress Note Patient seen and examined at bedside. No overnight events per nursing. Patient is afebrile and reports only mild pain at the site of her decubitus ulcer. Wound vac is in tact and being changed by our wound care nurse Q3D. Denies fevers, chills, nausea, vomiting, diarrhea, or any acute complaints. ----- 62 y/o F with morbidly obesity presented to the emergency department on 05/30/17 with complaints of sacral decubitis ulcer, patient was discharged from hospital 1 day prior, however developed severe pain, and was brought in for further evaluation. Denies vomiting or abdominal pain. No other complaints at this time. On 06/01/17 an [employer]IDENT was called for hypotension, a dopamine drip was started , fluids were administered and patient was moved to ICU for further monitoring. PMHX: HTN, morbid obesity, probable OPHELIA, neuropathic pain, depression PSHX: cholecystectomy Medications: Duoneb, apixaban 5mg po bid, clonazepam 1mg po q12, lexapro 5mg po daily, pepcid 20mg po bid, lasix 40 mg ivp vial daily, neurontin 300mg po tid, imdur 30mg po daily, losartan 50mg po daily, oxycodone 20mg po q12 prn, ranolazine 500mg po bid, crestor 20mg po hs, spiriva 18mcg inh Allergies: NKDA SOCHX: smoker, no drugs no ETOH abuse Objective - Vital Signs/Intake and Output Vital Signs (last 24 hours): Temp Pulse Resp BP Pulse Ox 97.7 F 97 H 20 141/77 93 L 06/07/17 07:45 06/07/17 07:45 06/07/17 07:45 06/07/17 07:45 06/07/17 07:45 Intake and Output: 06/07/17 06/07/17 06:59 18:59 Intake Total 975 Output Total 950 Balance 25 - Medications Medications: Current Medications Apixaban (Eliquis) 5 mg PO BID [facility] Last Admin: 06/06/17 19:24 Dose: 5 mg Aspirin (Ecotrin) 81 mg PO DAILY [facility] Last Admin: 06/06/17 10:48 Dose: 81 mg Clonazepam (Klonopin) 1 mg PO Q12H [facility] Last Admin: 06/07/17 06:28 Dose: 1 mg Collagenase (Santyl) 1 gm TOP DAILY [facility] Last Admin: 06/06/17 10:44 Dose: 1 applic Dicyclomine HCl (Bentyl) 10 mg PO QID PRN PRN Reason: ABDOMINAL CRAMPING Last Admin: 06/05/17 11:54 Dose: 10 mg Emollient Ointment (Vaseline Oint) 5 gm TOP BID PRN PRN Reason: Dry skin Escitalopram Oxalate (Lexapro) 5 mg PO DAILY [facility] Last Admin: 06/06/17 10:50 Dose: 5 mg Famotidine (Pepcid) 20 mg PO BID [facility] Last Admin: 06/06/17 19:25 Dose: 20 mg Gabapentin (Neurontin) 300 mg PO TID [facility] Last Admin: 06/06/17 19:25 Dose: 300 mg Home Med (Patient's Own Medication) 1 tab PO DAILY [facility] Last Admin: 06/06/17 10:52 Dose: 1 tab Hydromorphone HCl (Dilaudid) 1 mg IVP Q3H PRN PRN Reason: Pain, moderate (4-7) Last Admin: 06/07/17 08:05 Dose: 1 mg Meropenem 1 gm/ Sodium (Chloride) 100 mls @ 100 mls/hr IVPB Q8H [facility] Last Admin: 06/07/17 04:01 Dose: 100 mls/hr Sodium Chloride (Sodium Chloride 0.9%) 1,000 mls @ 75 mls/hr IV .[id number] [facility] Last Admin: 06/06/17 20:25 Dose: 75 mls/hr Potassium Chloride (K-Dur 20 Meq Er Tab) 20 meq PO DAILY [facility] Last Admin: 06/06/17 10:48 Dose: 20 meq Pramipexole Dihydrochloride (Mirapex) 0.25 mg PO [facility] Last Admin: 06/06/17 22:56 Dose: 0.25 mg Ranolazine (Ranexa) 500 mg PO BID [facility] Last Admin: 06/06/17 19:24 Dose: 500 mg Rosuvastatin Calcium (Crestor) 20 mg PO HS [facility] Last Admin: 06/06/17 22:56 Dose: 20 mg Saccharomyces Boulardii (Florastor) 250 mg PO BID [facility] Last Admin: 06/06/17 19:25 Dose: 250 mg Tiotropium [place] (Spiriva) 18 mcg INH RQ24 [facility] Last Admin: 06/07/17 08:58 Dose: 18 mcg - Labs Labs: 06/07/17 08:47 06/07/17 08:47 - Additional Findings Additional findings: - Constitutional Appears: Non-toxic, Chronically Ill - Head Exam Head Exam: NORMOCEPHALIC, Atraumatic - Eye Exam Eye Exam: PERRL. absent: Scleral icterus - Respiratory Exam Respiratory Exam: Decreased Breath Sounds, Clear to Ausculation Bilateral - Cardiovascular Exam Cardiovascular Exam: REGULAR RHYTHM - GI/Abdominal Exam GI & Abdominal Exam: Soft, Normal Bowel Sounds. absent: Tenderness - Extremities Exam Extremities Exam: absent: Pedal Edema - Back Exam Back Exam: absent: CVA tenderness (L), CVA tenderness (R) - Neurological Exam Neurological Exam: Alert, Awake, Oriented x3 - Psychiatric Exam Psychiatric exam: Normal Affect, Normal Mood - Skin Skin Exam: Dry, Intact Sacral decub stage 4 Assessment and Plan - Assessment and Plan (Free Text) Assessment: Osteomyelitis of Sacrum 06/07: Wound vac is in tact and being changed by our wound care nurse Q3D. Meropenem 1gm IVPB Q8H. Florastor. -ID consulted. Dr. Ornelas. recs appreciated. * Continue Meropenem 1gm IVPB Q8H (for 6weeks total, started 06/01) -fluconazole 100 PO daily -zosyn 3.375 q 6hrs -dilaudid 1 q 4 prn - s/p sepctic shock last week 2/2 urosepsis (prior admission) - Patient was in OR 05/28 for further debridement. 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 All medical management as per Dr. Tigist Rogers
[2017-06-07 10:01] LABS: MAGNESIUM 1.5 mg/dL (1.6-2.3)
[2017-06-07] MEDS: Saccharomyces Boulardi 250 mg Cap PO SCH ×2 (10:34→18:52)
[2017-06-07] MEDS: Potassium Chloride 20 mEq ER Tab PO SCH (10:34)
[2017-06-07] MEDS: Ranolazine 500 mg Extended Release Tablets PO SCH ×2 (10:34→18:52)
[2017-06-07] MEDS: ROPINIROLE 1 MG PO SCH (10:35)
[2017-06-07] MEDS: Collagenase 250 Units/gm Ointment(30 gm) TOP SCH (10:37)
[2017-06-07] MEDS: Sodium Chloride 0.9% 1,000 ML IV SCH (11:40)
--- NOTE | 2017-06-07 12:20 | CP.PCM.PN ---
Subjective - Date & Time of Evaluation Date of Evaluation: 06/07/17 Time of Evaluation: 09:00 - Subjective Subjective: AFEB OFF PRESSORS WOUND CARE IN PROGRESS Objective - Vital Signs/Intake and Output Vital Signs (last 24 hours): Temp Pulse Resp BP Pulse Ox 97.7 F 97 H 20 141/77 93 L 06/07/17 07:45 06/07/17 07:45 06/07/17 07:45 06/07/17 07:45 06/07/17 07:45 Intake and Output: 06/07/17 06/07/17 06:59 18:59 Intake Total 975 Output Total 950 Balance 25 - Medications Medications: Current Medications Apixaban (Eliquis) 5 mg PO BID [facility] Last Admin: 06/07/17 10:34 Dose: 5 mg Aspirin (Ecotrin) 81 mg PO DAILY [facility] Last Admin: 06/07/17 10:34 Dose: 81 mg Clonazepam (Klonopin) 1 mg PO Q12H [facility] Last Admin: 06/07/17 06:28 Dose: 1 mg Collagenase (Santyl) 1 gm TOP DAILY [facility] Last Admin: 06/07/17 10:37 Dose: 1 applic Dicyclomine HCl (Bentyl) 10 mg PO QID PRN PRN Reason: ABDOMINAL CRAMPING Last Admin: 06/05/17 11:54 Dose: 10 mg Emollient Ointment (Vaseline Oint) 5 gm TOP BID PRN PRN Reason: Dry skin Escitalopram Oxalate (Lexapro) 5 mg PO DAILY [facility] Last Admin: 06/07/17 10:35 Dose: 5 mg Famotidine (Pepcid) 20 mg PO BID [facility] Last Admin: 06/07/17 10:34 Dose: 20 mg Gabapentin (Neurontin) 300 mg PO TID [facility] Last Admin: 06/07/17 10:33 Dose: 300 mg Home Med (Patient's Own Medication) 1 tab PO DAILY [facility] Last Admin: 06/07/17 10:35 Dose: 1 tab Hydromorphone HCl (Dilaudid) 1 mg IVP Q3H PRN PRN Reason: Pain, moderate (4-7) Last Admin: 06/07/17 12:10 Dose: 1 mg Sodium Chloride (Sodium Chloride 0.9%) 1,000 mls @ 75 mls/hr IV .[id number] [facility] Last Admin: 06/06/17 20:25 Dose: 75 mls/hr Potassium Chloride (K-Dur 20 Meq Er Tab) 20 meq PO DAILY [facility] Last Admin: 06/07/17 10:34 Dose: 20 meq Pramipexole Dihydrochloride (Mirapex) 0.25 mg PO HS [facility] Last Admin: 06/06/17 22:56 Dose: 0.25 mg Ranolazine (Ranexa) 500 mg PO BID [facility] Last Admin: 06/07/17 10:34 Dose: 500 mg Rosuvastatin Calcium (Crestor) 20 mg PO HS [facility] Last Admin: 06/06/17 22:56 Dose: 20 mg Saccharomyces Boulardii (Florastor) 250 mg PO BID [facility] Last Admin: 06/07/17 10:34 Dose: 250 mg Tiotropium [place] (Spiriva) 18 mcg INH RQ24 [facility] Last Admin: 06/07/17 08:58 Dose: 18 mcg - Labs Labs: 06/07/17 08:47 06/07/17 08:47 - Constitutional Appears: Non-toxic, Chronically Ill - Head Exam Head Exam: NORMOCEPHALIC - Eye Exam Eye Exam: PERRL - ENT Exam ENT Exam: Mucous Membranes Dry - Neck Exam Neck Exam: absent: Lymphadenopathy - Respiratory Exam Respiratory Exam: Decreased Breath Sounds - Cardiovascular Exam Cardiovascular Exam: REGULAR RHYTHM - GI/Abdominal Exam GI & Abdominal Exam: Distended - Rectal Exam Rectal Exam: Deferred - Exam Exam: NORMAL INSPECTION - Extremities Exam Extremities Exam: absent: Pedal Edema - Back Exam Back Exam: absent: CVA tenderness (L), CVA tenderness (R) Assessment and Plan (1) Decubitus ulcer Status: Acute (2) Intractable pain Status: Acute (3) Altered mental status Status: Acute (4) Hypotension Status: Acute - Assessment and Plan (Free Text) Plan: CONT RX FOR 6 WEEKD
--- NOTE | 2017-06-07 17:56 | CP.PCM.PN ---
Subjective - Date & Time of Evaluation Date of Evaluation: 06/07/17 Time of Evaluation: 09:40 - Subjective Subjective: clinically same Objective - Vital Signs/Intake and Output Vital Signs (last 24 hours): Temp Pulse Resp BP Pulse Ox 98.0 F 94 H 18 107/66 94 L 06/07/17 15:21 06/07/17 15:21 06/07/17 15:21 06/07/17 15:21 06/07/17 15:21 Intake and Output: 06/07/17 06/07/17 06:59 18:59 Intake Total 975 500 Output Total 950 1000 Balance 25 -500 - Medications Medications: Current Medications Apixaban (Eliquis) 5 mg PO BID [facility] Last Admin: 06/07/17 10:34 Dose: 5 mg Aspirin (Ecotrin) 81 mg PO DAILY [facility] Last Admin: 06/07/17 10:34 Dose: 81 mg Clonazepam (Klonopin) 1 mg PO Q12H [facility] Last Admin: 06/07/17 06:28 Dose: 1 mg Collagenase (Santyl) 1 gm TOP DAILY [facility] Last Admin: 06/07/17 10:37 Dose: 1 applic Dicyclomine HCl (Bentyl) 10 mg PO QID PRN PRN Reason: ABDOMINAL CRAMPING Last Admin: 06/05/17 11:54 Dose: 10 mg Emollient Ointment (Vaseline Oint) 5 gm TOP BID PRN PRN Reason: Dry skin Escitalopram Oxalate (Lexapro) 5 mg PO DAILY [facility] Last Admin: 06/07/17 10:35 Dose: 5 mg Famotidine (Pepcid) 20 mg PO BID [facility] Last Admin: 06/07/17 10:34 Dose: 20 mg Gabapentin (Neurontin) 300 mg PO TID [facility] Last Admin: 06/07/17 15:00 Dose: 300 mg Home Med (Patient's Own Medication) 1 tab PO DAILY [facility] Last Admin: 06/07/17 10:35 Dose: 1 tab Hydromorphone HCl (Dilaudid) 1 mg IVP Q3H PRN PRN Reason: Pain, moderate (4-7) Last Admin: 06/07/17 15:31 Dose: 1 mg Sodium Chloride (Sodium Chloride 0.9%) 1,000 mls @ 75 mls/hr IV .[id number] [facility] Last Admin: 06/07/17 11:40 Dose: Not Given Meropenem 1 gm/ Sodium (Chloride) 100 mls @ 200 mls/hr IVPB Q8H [facility] Stop: 06/27/17 20:01 Potassium Chloride (K-Dur 20 Meq Er Tab) 20 meq PO DAILY [facility] Last Admin: 06/07/17 10:34 Dose: 20 meq Pramipexole Dihydrochloride (Mirapex) 0.25 mg PO [facility] Last Admin: 06/06/17 22:56 Dose: 0.25 mg Ranolazine (Ranexa) 500 mg PO BID [facility] Last Admin: 06/07/17 10:34 Dose: 500 mg Rosuvastatin Calcium (Crestor) 20 mg PO HS [facility] Last Admin: 06/06/17 22:56 Dose: 20 mg Saccharomyces Boulardii (Florastor) 250 mg PO BID [facility] Last Admin: 06/07/17 10:34 Dose: 250 mg Tiotropium [place] (Spiriva) 18 mcg INH RQ24 [facility] Last Admin: 06/07/17 08:58 Dose: 18 mcg - Labs Labs: 06/07/17 08:47 06/07/17 08:47 - Constitutional Appears: Well - Head Exam Head Exam: ATRAUMATIC, NORMAL INSPECTION, NORMOCEPHALIC - Eye Exam Eye Exam: EOMI, Normal appearance, PERRL Pupil Exam: NORMAL ACCOMODATION, PERRL - ENT Exam ENT Exam: Mucous Membranes Moist, Normal Exam - Neck Exam Neck Exam: Full ROM, Normal Inspection. absent: Lymphadenopathy - Respiratory Exam Respiratory Exam: Decreased Breath Sounds - Cardiovascular Exam Cardiovascular Exam: REGULAR RHYTHM, +S1, +S2 - GI/Abdominal Exam GI & Abdominal Exam: Diminished Bowel Sounds
[2017-06-07] MEDS: Meropenem 1 GM in Sodium Chloride 0.9% 100 ML IVPB SCH (21:00)
[2017-06-08 02:00] VITALS: RESP 20
[2017-06-08] MEDS: Meropenem 1 GM in Sodium Chloride 0.9% 100 ML IVPB SCH ×3 (03:11→21:00)
[2017-06-08] MEDS: Tiotropium 18 mcg Cap For Inhalation INH SCH (07:18)
--- NOTE | 2017-06-08 07:58 | CP.PCM.PN ---
Subjective - Date & Time of Evaluation Date of Evaluation: 06/08/17 Time of Evaluation: 07:20 - Subjective Subjective: PGY2 Resident - Medicine Progress Note Patient seen and examined at bedside. No overnight events per nursing. Patient is afebrile and reports similar, mild, tolerable pain at the site of her decubitus ulcer. Denies fevers, chills, nausea, vomiting, diarrhea, or any acute complaints. Reports that she does not have a history of OPHELIA and COPD as mentioned in prior charts/documentation. Objective - Vital Signs/Intake and Output Vital Signs (last 24 hours): Temp Pulse Resp BP Pulse Ox 98.0 F 103 H 20 108/68 94 L 06/07/17 23:30 06/07/17 23:30 06/07/17 23:30 06/07/17 23:30 06/07/17 15:21 Intake and Output: 06/08/17 06/08/17 06:59 18:59 Intake Total 925 Output Total 450 Balance 475 - Medications Medications: Current Medications Apixaban (Eliquis) 5 mg PO BID [facility] Last Admin: 06/07/17 18:52 Dose: 5 mg Aspirin (Ecotrin) 81 mg PO DAILY [facility] Last Admin: 06/07/17 10:34 Dose: 81 mg Clonazepam (Klonopin) 1 mg PO Q12H [facility] Last Admin: 06/08/17 06:32 Dose: 1 mg Collagenase (Santyl) 1 gm TOP DAILY [facility] Last Admin: 06/07/17 10:37 Dose: 1 applic Dicyclomine HCl (Bentyl) 10 mg PO QID PRN PRN Reason: ABDOMINAL CRAMPING Last Admin: 06/05/17 11:54 Dose: 10 mg Emollient Ointment (Vaseline Oint) 5 gm TOP BID PRN PRN Reason: Dry skin Escitalopram Oxalate (Lexapro) 5 mg PO DAILY [facility] Last Admin: 06/07/17 10:35 Dose: 5 mg Famotidine (Pepcid) 20 mg PO BID [facility] Last Admin: 06/07/17 18:53 Dose: 20 mg Gabapentin (Neurontin) 300 mg PO TID [facility] Last Admin: 06/07/17 18:52 Dose: 300 mg Home Med (Patient's Own Medication) 1 tab PO DAILY [facility] Last Admin: 06/07/17 10:35 Dose: 1 tab Hydromorphone HCl (Dilaudid) 1 mg IVP Q3H PRN PRN Reason: Pain, moderate (4-7) Last Admin: 06/08/17 06:32 Dose: 1 mg Sodium Chloride (Sodium Chloride 0.9%) 1,000 mls @ 75 mls/hr IV .[id number] [facility] Last Admin: 06/07/17 11:40 Dose: Not Given Meropenem 1 gm/ Sodium (Chloride) 100 mls @ 200 mls/hr IVPB Q8H [facility] Stop: 06/27/17 20:01 Last Admin: 06/08/17 03:11 Dose: 200 mls/hr Potassium Chloride (K-Dur 20 Meq Er Tab) 20 meq PO DAILY [facility] Last Admin: 06/07/17 10:34 Dose: 20 meq Pramipexole Dihydrochloride (Mirapex) 0.25 mg PO [facility] Last Admin: 06/07/17 23:09 Dose: 0.25 mg Ranolazine (Ranexa) 500 mg PO BID [facility] Last Admin: 06/07/17 18:52 Dose: 500 mg Rosuvastatin Calcium (Crestor) 20 mg PO [facility] Last Admin: 06/07/17 23:09 Dose: 20 mg Saccharomyces Boulardii (Florastor) 250 mg PO BID [facility] Last Admin: 06/07/17 18:52 Dose: 250 mg Tiotropium [place] (Spiriva) 18 mcg INH RQ24 [facility] Last Admin: 06/08/17 07:18 Dose: Not Given - Labs Labs: 06/07/17 08:47 06/07/17 08:47 - Additional Findings Additional findings: - Constitutional Appears: Non-toxic, Chronically Ill - Head Exam Head Exam: NORMOCEPHALIC, Atraumatic - Eye Exam Eye Exam: PERRL. absent: Scleral icterus - Respiratory Exam Respiratory Exam: Decreased Breath Sounds, Clear to Ausculation Bilateral - Cardiovascular Exam Cardiovascular Exam: REGULAR RHYTHM, +S1, +S2 - GI/Abdominal Exam GI & Abdominal Exam: Soft, Normal Bowel Sounds. absent: Tenderness - Extremities Exam Extremities Exam: absent: Pedal Edema - Back Exam Back Exam: absent: CVA tenderness (L), CVA tenderness (R) - Neurological Exam Neurological Exam: Alert, Awake, Oriented x3 - Psychiatric Exam Psychiatric exam: Normal Affect, Normal Mood - Skin Skin Exam: Dry, Intact Sacral decub stage 4 Wound vac draining dark serous fluid Assessment and Plan - Assessment and Plan (Free Text) Assessment: Osteomyelitis of Sacrum 06/07-06/08: Wound vac is in tact and being changed by our wound care nurse Q3D. Continue Meropenem 1gm IVPB Q8H (continue for [address] Ornelas , as patient was recently on Zosyn on prior admission 05/02-05/29). -ID consulted. Dr. Ornelas. recs appreciated. -Florastor -fluconazole 100 PO daily -dilaudid 1 q 4 prn - s/p sepctic shock last week /2 urosepsis (prior admission) - Patient was in OR 05/28 for further debridement. 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 Case discussed with attending. All medical management as per Dr. Tigist Rogers
[2017-06-08 08:09] LABS: BASO # 0.1 K/uL (0.0-0.2); BASO % 0.8 % (0.0-2.0); EOS # 0.7 K/uL (0.0-0.7); EOS % 6.6 % (0.0-4.0); HEMATOCRIT 26.3 % (34.0-47.0); LYMPH # 1.8 K/uL (1.0-4.3); LYMPH % 16.6 % (20.0-40.0); MEAN CELL VOLUME 93.1 fL (81.0-99.0); MEAN CORPUSCULAR HEMOGLOBIN 30.7 pg (27.0-31.0); MONO # 0.4 K/uL (0.0-0.8); MONO % 4.2 % (0.0-10.0); RED CELL DISTRIBUTION WIDTH 19.5 % (11.5-14.5); WHITE BLOOD COUNT 10.8 K/uL (4.8-10.8)
[2017-06-08 08:29] LABS: CHLORIDE 107 mmol/L (98-107)
[2017-06-08 08:30] LABS: POTASSIUM 3.9 mmol/L (3.6-5.2); SODIUM 140 mmol/L (132-148)
[2017-06-08 08:32] LABS: ALB/GLOB RATIO 0.9 (1.0-2.1); ALKALINE PHOSPHATASE 67 U/L (38-126); ALT/SGPT 25 U/L (9-52); AST/SGOT 25 U/L (14-36); BILIRUBIN,TOTAL 0.4 mg/dL (0.2-1.3); BLOOD UREA NITROGEN 7 mg/dL (7-17); CARBON DIOXIDE 27 mmol/L (22-30); GFR AFRICAN-AMERICAN > 60; GLUCOSE,RANDOM 74 mg/dL (65-105); TOTAL PROTEIN 5.1 g/dL (6.3-8.3)
[2017-06-08 08:33] LABS: CALCIUM 8.3 mg/dl (8.6-10.4); MAGNESIUM 1.5 mg/dL (1.6-2.3)
[2017-06-08] MEDS: Sodium Chloride 0.9% 1,000 ML IV SCH (10:16)
[2017-06-08] MEDS: Collagenase 250 Units/gm Ointment(30 gm) TOP SCH ×2 (10:34→10:50)
[2017-06-08] MEDS: ROPINIROLE 1 MG PO SCH (10:49)
[2017-06-08] MEDS: Potassium Chloride 20 mEq ER Tab PO SCH (10:50)
[2017-06-08] MEDS: Saccharomyces Boulardi 250 mg Cap PO SCH ×2 (10:50→18:05)
[2017-06-08] MEDS: Ranolazine 500 mg Extended Release Tablets PO SCH ×2 (10:50→18:05)
[2017-06-08] MEDS: Magnesium Sulfate 1 gm in D5W 1 GM/100 ML BAG IVPB SCH ×2 (10:51→12:35)
[2017-06-08] MEDS ORDERED: Magnesium Sulfate 1 gm in D5W 1 GM/100 ML BAG IVPB ONE (13:00)
--- NOTE | 2017-06-08 21:24 | CP.PCM.PN ---
Subjective - Date & Time of Evaluation Date of Evaluation: 06/08/17 Time of Evaluation: 10:20 - Subjective Subjective: clinically same Objective - Vital Signs/Intake and Output Vital Signs (last 24 hours): Temp Pulse Resp BP Pulse Ox 97.4 F L 91 H 20 116/67 96 06/08/17 15:00 06/08/17 15:00 06/08/17 15:00 06/08/17 15:00 06/08/17 15:00 Intake and Output: 06/08/17 06/09/17 18:59 06:59 Intake Total 500 Output Total 1100 Balance -600 - Medications Medications: Current Medications Acetaminophen (Tylenol 325mg Tab) 650 mg PO Q6 PRN PRN Reason: pain 3-6 heaache Last Admin: 06/08/17 10:07 Dose: 650 mg Apixaban (Eliquis) 5 mg PO BID [facility] Last Admin: 06/08/17 18:05 Dose: 5 mg Aspirin (Ecotrin) 81 mg PO DAILY [facility] Last Admin: 06/08/17 10:50 Dose: 81 mg Clonazepam (Klonopin) 1 mg PO Q12H [facility] Last Admin: 06/08/17 18:05 Dose: 1 mg Collagenase (Santyl) 1 gm TOP DAILY [facility] Last Admin: 06/08/17 10:50 Dose: Not Given Dicyclomine HCl (Bentyl) 10 mg PO QID PRN PRN Reason: ABDOMINAL CRAMPING Last Admin: 06/05/17 11:54 Dose: 10 mg Emollient Ointment (Vaseline Oint) 5 gm TOP BID PRN PRN Reason: Dry skin Escitalopram Oxalate (Lexapro) 5 mg PO DAILY [facility] Last Admin: 06/08/17 14:01 Dose: 5 mg Famotidine (Pepcid) 20 mg PO BID [facility] Last Admin: 06/08/17 18:05 Dose: 20 mg Gabapentin (Neurontin) 300 mg PO TID [facility] Last Admin: 06/08/17 18:05 Dose: 300 mg Home Med (Patient's Own Medication) 1 tab PO DAILY [facility] Last Admin: 06/08/17 10:49 Dose: 1 tab Hydromorphone HCl (Dilaudid) 1 mg IVP Q3H PRN PRN Reason: Pain, moderate (4-7) Last Admin: 06/08/17 18:05 Dose: 1 mg Sodium Chloride (Sodium Chloride 0.9%) 1,000 mls @ 75 mls/hr IV .[id number] [facility] Last Admin: 06/08/17 10:16 Dose: 75 mls/hr Meropenem 1 gm/ Sodium (Chloride) 100 mls @ 200 mls/hr IVPB Q8H [facility] Stop: 06/27/17 20:01 Last Admin: 06/08/17 12:15 Dose: 200 mls/hr Potassium Chloride (K-Dur 20 Meq Er Tab) 20 meq PO DAILY [facility] Last Admin: 06/08/17 10:50 Dose: 20 meq Pramipexole Dihydrochloride (Mirapex) 0.25 mg PO HS [facility] Last Admin: 06/07/17 23:09 Dose: 0.25 mg Ranolazine (Ranexa) 500 mg PO BID [facility] Last Admin: 06/08/17 18:05 Dose: 500 mg Rosuvastatin Calcium (Crestor) 20 mg PO HS [facility] Last Admin: 06/07/17 23:09 Dose: 20 mg Saccharomyces Boulardii (Florastor) 250 mg PO BID [facility] Last Admin: 06/08/17 18:05 Dose: 250 mg Tiotropium [place] (Spiriva) 18 mcg INH RQ24 [facility] Last Admin: 06/08/17 07:18 Dose: Not Given - Labs Labs: 06/08/17 07:51 06/08/17 07:51 - Constitutional Appears: Well - Head Exam Head Exam: ATRAUMATIC, NORMAL INSPECTION, NORMOCEPHALIC - Eye Exam Eye Exam: EOMI, Normal appearance, PERRL Pupil Exam: NORMAL ACCOMODATION, PERRL - ENT Exam ENT Exam: Mucous Membranes Moist, Normal Exam - Neck Exam Neck Exam: Full ROM, Normal Inspection. absent: Lymphadenopathy - Respiratory Exam Respiratory Exam: Decreased Breath Sounds - Cardiovascular Exam Cardiovascular Exam: REGULAR RHYTHM, +S1, +S2 - GI/Abdominal Exam GI & Abdominal Exam: Soft, Diminished Bowel Sounds - Rectal Exam Rectal Exam: Deferred
[2017-06-09] MEDS: Meropenem 1 GM in Sodium Chloride 0.9% 100 ML IVPB SCH ×2 (04:01→11:34)
[2017-06-09] MEDS: Sodium Chloride 0.9% 1,000 ML IV SCH (04:40)
[2017-06-09] MEDS: Tiotropium 18 mcg Cap For Inhalation INH SCH (07:24)
[2017-06-09 07:26] LABS: BASO # 0.1 K/uL (0.0-0.2); BASO % 0.8 % (0.0-2.0); EOS # 0.5 K/uL (0.0-0.7); EOS % 4.7 % (0.0-4.0); HEMATOCRIT 26.1 % (34.0-47.0); LYMPH # 1.6 K/uL (1.0-4.3); LYMPH % 14.5 % (20.0-40.0); MEAN CELL VOLUME 92.9 fL (81.0-99.0); MEAN CORPUSCULAR HEMOGLOBIN 29.8 pg (27.0-31.0); MEAN PLATELET VOLUME 8.4 fL (7.2-11.7); MONO # 0.4 K/uL (0.0-0.8); MONO % 3.7 % (0.0-10.0); RED CELL DISTRIBUTION WIDTH 19.2 % (11.5-14.5); WHITE BLOOD COUNT 10.8 K/uL (4.8-10.8)
[2017-06-09 07:35] LABS: CHLORIDE 106 mmol/L (98-107)
[2017-06-09 07:37] LABS: POTASSIUM 3.9 mmol/L (3.6-5.2); SODIUM 141 mmol/L (132-148)
[2017-06-09 07:39] LABS: ALB/GLOB RATIO 0.8 (1.0-2.1); ALKALINE PHOSPHATASE 67 U/L (38-126); AST/SGOT 23 U/L (14-36); BILIRUBIN,TOTAL 0.3 mg/dL (0.2-1.3); CARBON DIOXIDE 29 mmol/L (22-30); GFR AFRICAN-AMERICAN > 60; TOTAL PROTEIN 5.3 g/dL (6.3-8.3)
[2017-06-09 07:40] LABS: ALT/SGPT 30 U/L (9-52); BLOOD UREA NITROGEN 7 mg/dL (7-17); CALCIUM 7.9 mg/dl (8.6-10.4); GLUCOSE,RANDOM 80 mg/dL (65-105); MAGNESIUM 1.8 mg/dL (1.6-2.3); PHOSPHOROUS 2.7 mg/dL (2.5-4.5)
[2017-06-09 08:09] VITALS: O2SAT 96
[2017-06-09] MEDS: Potassium Chloride 20 mEq ER Tab PO SCH (10:17)
[2017-06-09] MEDS: Saccharomyces Boulardi 250 mg Cap PO SCH ×2 (10:17→17:41)
[2017-06-09] MEDS: Ranolazine 500 mg Extended Release Tablets PO SCH ×2 (10:17→17:41)
[2017-06-09] MEDS: Collagenase 250 Units/gm Ointment(30 gm) TOP SCH (10:18)
[2017-06-09] MEDS: ROPINIROLE 1 MG PO SCH (10:19)
[2017-06-09 16:49] VITALS: BP 121/72; PULSE 96; TEMP 98.2
--- NOTE | 2017-06-09 17:42 | CP.PCM.PN ---
Subjective - Date & Time of Evaluation Date of Evaluation: 06/09/17 Time of Evaluation: 10:40 - Subjective Subjective: clinically same Objective - Vital Signs/Intake and Output Vital Signs (last 24 hours): Temp Pulse Resp BP Pulse Ox 98.2 F 96 H 20 121/72 96 06/09/17 16:00 06/09/17 16:00 06/09/17 16:00 06/09/17 16:00 06/09/17 16:00 Intake and Output: 06/09/17 06/09/17 06:59 18:59 Intake Total 1625 Output Total 700 Balance 925 - Medications Medications: Current Medications Acetaminophen (Tylenol 325mg Tab) 650 mg PO Q6 PRN PRN Reason: pain 3-6 heaache Last Admin: 06/08/17 10:07 Dose: 650 mg Apixaban (Eliquis) 5 mg PO BID [facility] Last Admin: 06/09/17 10:17 Dose: 5 mg Aspirin (Ecotrin) 81 mg PO DAILY [facility] Last Admin: 06/09/17 10:18 Dose: 81 mg Clonazepam (Klonopin) 1 mg PO Q12H [facility] Last Admin: 06/09/17 05:24 Dose: 1 mg Collagenase (Santyl) 1 gm TOP DAILY [facility] Last Admin: 06/09/17 10:18 Dose: 1 applic Dicyclomine HCl (Bentyl) 10 mg PO QID PRN PRN Reason: ABDOMINAL CRAMPING Last Admin: 06/05/17 11:54 Dose: 10 mg Emollient Ointment (Vaseline Oint) 5 gm TOP BID PRN PRN Reason: Dry skin Last Admin: 06/09/17 10:18 Dose: 5 gm Escitalopram Oxalate (Lexapro) 5 mg PO DAILY [facility] Last Admin: 06/09/17 10:18 Dose: 5 mg Famotidine (Pepcid) 20 mg PO BID [facility] Last Admin: 06/09/17 10:18 Dose: 20 mg Gabapentin (Neurontin) 300 mg PO TID [facility] Last Admin: 06/09/17 13:49 Dose: 300 mg Home Med (Patient's Own Medication) 1 tab PO DAILY [facility] Last Admin: 06/09/17 10:19 Dose: 1 tab Hydromorphone HCl (Dilaudid) 1 mg IVP Q3H PRN PRN Reason: Pain, moderate (4-7) Last Admin: 06/09/17 16:57 Dose: 1 mg Sodium Chloride (Sodium Chloride 0.9%) 1,000 mls @ 75 mls/hr IV .[id number] [facility] Last Admin: 06/09/17 04:40 Dose: Not Given Meropenem 1 gm/ Sodium (Chloride) 100 mls @ 200 mls/hr IVPB Q8H [facility] Stop: 06/27/17 20:01 Last Admin: 06/09/17 11:34 Dose: 200 mls/hr Potassium Chloride (K-Dur 20 Meq Er Tab) 20 meq PO DAILY [facility] Last Admin: 06/09/17 10:17 Dose: 20 meq Pramipexole Dihydrochloride (Mirapex) 0.25 mg PO [facility] Last Admin: 06/08/17 22:13 Dose: 0.25 mg Ranolazine (Ranexa) 500 mg PO BID [facility] Last Admin: 06/09/17 10:17 Dose: 500 mg Rosuvastatin Calcium (Crestor) 20 mg PO [facility] Last Admin: 06/08/17 22:13 Dose: 20 mg Saccharomyces Boulardii (Florastor) 250 mg PO BID [facility] Last Admin: 06/09/17 10:17 Dose: 250 mg Tiotropium [place] (Spiriva) 18 mcg INH RQ24 [facility] Last Admin: 06/09/17 07:24 Dose: Not Given - Labs Labs: 06/09/17 06:55 06/09/17 06:55 - Constitutional Appears: Well - Head Exam Head Exam: ATRAUMATIC, NORMAL INSPECTION, NORMOCEPHALIC - Eye Exam Eye Exam: EOMI, Normal appearance, PERRL Pupil Exam: NORMAL ACCOMODATION, PERRL - ENT Exam ENT Exam: Mucous Membranes Moist, Normal Exam - Neck Exam Neck Exam: Full ROM, Normal Inspection. absent: Lymphadenopathy - Respiratory Exam Respiratory Exam: Decreased Breath Sounds - Cardiovascular Exam Cardiovascular Exam: REGULAR RHYTHM, +S1, +S2 - GI/Abdominal Exam GI & Abdominal Exam: Soft, Diminished Bowel Sounds - Rectal Exam Rectal Exam: Deferred
== END 2017-06-09 19:25 | DRG 871 ==
LOC: C.ER 08:55 → C.9E 10:10 → C.3T 11:07 → C.9I 06-01 10:53 → C.6T 06-05 15:52
PROVIDERS: ADMIT Internal Medicine Nephrology; ATTEND Internal Medicine Nephrology
DX: A41.9 Sepsis, unspecified organism (principal); L89.154 Pressure ulcer of sacral region, stage 4; I95.9 Hypotension, unspecified; L89.110 Pressure ulcer of right upper back, unstageable; L89.313 Pressure ulcer of right buttock, stage 3; D47.2 Monoclonal gammopathy; E83.42 Hypomagnesemia; E66.01 Morbid (severe) obesity due to excess calories; M46.28 Osteomyelitis of vertebra, sacral and sacrococcygeal region; I10 Essential (primary) hypertension; M54.5 Low back pain; E78.00 Pure hypercholesterolemia, unspecified; F17.200 Nicotine dependence, unspecified, uncomplicated; F32.9 Major depressive disorder, single episode, unspecified; F41.9 Anxiety disorder, unspecified; G62.9 Polyneuropathy, unspecified; Z79.82 Long term (current) use of aspirin; Z79.899 Other long term (current) drug therapy; Z86.718 Personal history of other venous thrombosis and embolism; Z87.01 Personal history of pneumonia (recurrent); Z87.442 Personal history of urinary calculi; G47.33 Obstructive sleep apnea (adult) (pediatric); J44.9 Chronic obstructive pulmonary disease, unspecified